=== PATIENT | female | born 1945 | race Caucasian/White ===

== ENCOUNTER → 2017-01-12 | Outpatient (CLI) | payer MEDICARE ==
--- NOTE | 2017-01-13 10:34 | MM ---
Reason for exam: screening (asymptomatic). Last mammogram was performed 1 year and 5 months ago. History: Patient is postmenopausal and is nulliparous. Family history of premenopausal breast cancer in sister at age 48. Took estrogen for 12 years beginning at age 48. Physical Findings: A clinical breast exam by your physician is recommended on an annual basis and results should be correlated with mammographic findings. MG 3D Screening Mammo W/Cad Bilateral CC and MLO view(s) were taken. Prior study comparison: August 21, 2015, bilateral MG screening mammo w CAD. June 06, 2008, bilateral digital screening mammogram. The breast tissue is heterogeneously dense. This may lower the sensitivity of mammography. Benign calcifications. There is no discrete abnormality. No significant changes when compared with prior studies. ASSESSMENT: Benign, BI-RAD 2 RECOMMENDATION: Routine screening mammogram of both breasts in 1 year.
== END ==
LOC: RADMAMWWP 09:30
PROVIDERS: ATTEND Family Medicine
DX: Z12.31 Encounter for screening mammogram for malignant neoplasm of breast (principal)
CPT/HCPCS: 77063; G0202

== ENCOUNTER 2017-04-01 18:47 | Observation (INO) | payer MEDICARE ==
[2017-04-01] MEDS ORDERED: SODIUM CHLORIDE 0.9% 500 ML IV STA (19:34)
[2017-04-01] MEDS ORDERED: ASPIRIN 81 MG CHEW PO STA (19:34)
[2017-04-01] MEDS ORDERED: NITROGLYCERIN SL TABS 0.4 MG TAB SUBLINGUAL STA ×2 (19:34→19:35)
--- NOTE | 2017-04-01 19:42 | ED ---
Chest Pain HPI - General Chief Complaint: Chest Pain Stated Complaint: CHEST PAIN AND BURNING Time Seen by Provider: 04/01/17 19:24 Source: patient, RN notes reviewed Mode of arrival: ambulatory Limitations: no limitations - History of Present Illness Initial Comments: 71-year-old female presents to the emergency Department chief complaint of chest pain. Patient complained of chest pain to the left side of the chest is burning in nature with no radiation associated with some shortness of breath. Patient states she's had this for the past 3 days. Patient denies any nausea vomiting or diarrhea with this. Patient states that she has no heart attack history but doesn't have blood pressure and high cholesterol. Patient states she was concerned due to her continued discomfort so she thought that she should be evaluated.Patient denies any recent fever, chills, back pain, abdominal pain, nausea vomiting, numbness or tingling, dysuria or hematuria, constipation or diarrhea, headaches or visual changes, or any other current symptoms. - Related Data Home Medications Medication Instructions Recorded Confirmed Aspirin EC [Ecotrin] 81 mg PO DAILY 09/07/14 04/01/17 Carbidopa/Levodopa [Parcopa 25-100 1 tab SL QID 09/07/14 04/01/17 mg Odt] Carvedilol [Carvedilol] 6.25 mg PO BID 09/07/14 04/01/17 Clopidogrel Bisulfate [Clopidogrel] 75 mg PO DAILY 09/07/14 04/01/17 Escitalopram Oxalate [Lexapro] 10 mg PO DAILY 09/07/14 04/01/17 Furosemide [Lasix] 40 mg PO DAILY 09/07/14 04/01/17 Levothyroxine Sodium [Levoxyl] 150 mcg PO DAILY 09/07/14 04/01/17 Lisinopril [Prinivil] 20 mg PO DAILY 09/07/14 04/01/17 Omeprazole [PriLOSEC] 20 mg PO BID 09/07/14 04/01/17 Potassium Chloride ER [K-Dur 10] 10 meq PO DAILY 09/07/14 04/01/17 Pramipexole [Mirapex] 0.5 mg PO HS 09/07/14 04/01/17 Pravastatin Sodium [Pravachol] 80 mg PO DAILY 09/07/14 04/01/17 Triamterene/Hydrochlorothiazid 1 tab PO DAILY 09/07/14 04/01/17 [Triamterene-Hctz 37.5-25 mg Tb] Verapamil HCl [Verapamil ER] 240 mg PO DAILY 09/07/14 04/01/17 Albuterol Nebulized [Ventolin 2.5 mg INHALATION RT-QID PRN 04/01/17 04/01/17 Nebulized] Fexofenadine HCl [Priti Allergy] 180 mg PO DAILY PRN 04/01/17 04/01/17 Allergies Allergy/AdvReac Type Severity Reaction Status Date / Time amiodarone [From Cordarone] Allergy Anaphylaxis Verified 04/01/17 20:03 cyclobenzaprine Allergy Rash/Hives Verified 04/01/17 20:03 [From Flexeril] Review of Systems ROS Statement: Those systems with pertinent positive or pertinent negative responses have been documented in the HPI. ROS Other: All systems not noted in ROS Statement are negative. EKG Findings - EKG Comments: EKG Findings:: Sinus rhythm with first-degree AV block, ventricular rate 79, pO2 30, chest duration 88, no ST elevation or depression noted. Past Medical History Past Medical History: CVA/TIA, Hyperlipidemia, Hypertension, Thyroid Disorder Additional Past Medical History / Comment(s): PARKINSONS History of Any Multi-Drug Resistant Organisms: None Reported Past Surgical History: Hysterectomy, Orthopedic Surgery Past Anesthesia/Blood Transfusion Reactions: No Reported Reaction Past Psychological History: Bipolar, Depression Smoking Status: Former smoker Past Alcohol Use History: None Reported Past Drug Use History: None Reported - Past Family History Father Family Medical History: No Reported History General Exam - General Exam Comments Initial Comments: General: The patient is awake and alert, in no distress, and does not appear acutely ill. Eye: Pupils are equal, round and reactive to light, extra-ocular movements are intact; there is normal conjunctiva bilaterally. No signs of icterus. Ears, nose, mouth and throat: There are moist mucous membranes. Neck: The neck is supple, there is no tenderness. Cardiovascular: There is a regular rate and rhythm. No murmur, rub or gallop is appreciated. Respiratory: Lungs are clear to auscultation, respirations are non-labored, breath sounds are equal. No wheezes, stridor, rales, or rhonchi. Gastrointestinal: Soft, non-distended, non-tender abdomen without masses or organomegaly noted. There is no rebound or guarding present. No CVA tenderness. Bowel sounds are unremarkable. Back: There is no tenderness to palpation in the midline. There is no obvious deformity. No rashes noted. Musculoskeletal: Normal ROM, no tenderness, There is no pedal edema. There is no calf tenderness or swelling. Sensation intact. Pulses equal bilaterally 2+. Neurological: CN II-XII intact, There are no obvious motor or sensory deficits. Coordination appears grossly intact. Speech is normal. Skin: Skin is warm and dry and no rashes or lesions are noted. Psychiatric: Cooperative, appropriate mood & affect, normal judgment. Limitations: no limitations Course Vital Signs 04/01/17 04/01/17 19:06 22:39 Temperature 98.8 F 97.7 F Pulse Rate 81 56 L Respiratory 20 18 Rate Blood Pressure 120/56 130/57 O2 Sat by Pulse 93 L 96 Oximetry Chest Pain MDM - MDM 71-year-old female presents to emergency department with a chief complaint of chest pain and pressure with burning. At this time patient's lab work and imaging is reviewed that does show an acute process for the patient's pain. There is concern however due to the pain and the patient's risk factor this could be cardiac in nature. This time we'll start the patient on appropriate protocol and continue upper throughout the night. We discussed this with the patient and she is in agreement with the plan. Questions have been answered. Patient will be admitted at this time. Disposition Clinical Impression: Unstable angina Disposition: ADMITTED IP TO THIS [facility] Condition: Stable Referrals: Cameron Nelson MD [Primary Care Provider] - 1-2 days Time of Disposition: 23:52 Decision Date: 04/01/17 Decision Time: 23:52
[2017-04-01 20:11] LABS: Basophils % (A) 0 %; CH 31.5; CHCM 32.9; Eosinophils # (A) 0.5 k/uL (0-0.7); Eosinophils % (A) 6 %; HCT 33.5 % (34.0-46.0); HDW 2.72; Luc # (Auto) 0.11; Luc % (Auto) 1; Lymphocytes # (A) 1.3 k/uL (1.0-4.8); Lymphocytes % (A) 16 %; MCH 31.7 pg (25.0-35.0); MCHC 32.9 g/dL (31.0-37.0); MCV 96.2 fL (80.0-100.0); Mean Platelet Volume 7.3; Monocytes # (A) 0.4 k/uL (0-1.0); Monocytes % (A) 5 %; Neutrophils # (A) 5.7 k/uL (1.3-7.7); Neutrophils % (A) 72 %; RBC 3.48 m/uL (3.80-5.40); RDW 13.9 % (11.5-15.5); WBC (Perox) 8.52
[2017-04-01 20:20] LABS: Calcium 9.6 mg/dL (8.4-10.2); Magnesium 1.8 mg/dL (1.6-2.3); Potassium 4.5 mmol/L (3.5-5.1); Total Bilirubin 0.6 mg/dL (0.2-1.3)
[2017-04-01 20:24] LABS: Partial Thromboplastin Time 24.2 sec (22.0-30.0); Prothrombin Time 10.5 sec (9.0-12.0)
[2017-04-01 20:29] LABS: Creatine Kinase 52 U/L (30-135)
--- NOTE | 2017-04-01 20:38 | XR ---
EXAMINATION TYPE: XR CHEST 2V DATE OF EXAM: 04/01/2017 8:07 PM COMPARISON: August 14, 2015 HISTORY: Pain TECHNIQUE: Frontal and lateral views of the chest are obtained. FINDINGS: On the lateral view, the previously seen high density over the lower thoracic spine is rede monstrated without interval change. There is no focal air space opacity, pleural effusion, or pneumothorax seen. The cardiac silhouette size is within normal limits. The osseous structures are intact. IMPRESSION: NO ACUTE PROCESS.
[2017-04-01 20:43] LABS: Creatine Kinase MB 0.5 ng/mL (0.0-2.4); Troponin I <0.012 ng/mL (0.000-0.034)
[2017-04-01] MEDS ORDERED: SODIUM CHLORIDE 0.9% 1,000 ML IV STA (20:49)
[2017-04-01] MEDS ORDERED: HYDROmorphone 1 MG/ML 1 ML SYRINGE IVP STA (23:26)
--- NOTE | 2017-04-01 23:33 | NM ---
ADDENDUM - Added by London Trejo MD on 04/02/2017 12:03 AM (-04:00) VQ scan radiopharmaceutical dose: Ventilation imagin.2 mCi 99M technetium-DTPA Perfusion imagin.4 mCi 99M technetium-MAA EXAM: NM VQ ventilation-perfusion Scan CLINICAL HISTORY: Reason: R/O PE TECHNIQUE: Nuclear medicine pulmonary ventilation-perfusion scan performed with ventilation and perfusion imaging in multiple projections. 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 COMPARISON: Chest radiographs 04/01/2017 FINDINGS: Pulmonary ventilation and perfusion imaging demonstrates radiotracer distribution throughout both lungs. There is moderate sized focal perfusion defect involving the left lower lobe which appears to reflect matched VQ defect with similar ventilatory abnormality in this region. Correlation with chest radiograph demonstrates tortuosity of the descending thoracic aorta which may be related to this finding. No other significant VQ mismatches identified. Findings are compatible with low probability for pulmonary embolism. IMPRESSION: Low probability for pulmonary embolism.
[2017-04-01] MEDS ORDERED: HEPARIN SODIUM,PORCINE/D5W PMX 25,000 UNIT in DEXTROSE/WATER 1 500ML.BAG IV SCH (23:45)
[2017-04-01] MEDS ORDERED: HEPARIN SODIUM,PORCINE 5,000 UNIT/ML 1 ML VIAL IV ONE (23:52)
[2017-04-01] MEDS ORDERED: NITROGLYCERIN SL TABS 0.4 MG TAB SUBLINGUAL PRN (23:52)
[2017-04-01] MEDS ORDERED: LORATADINE 10 MG TAB PO PRN (23:53)
[2017-04-01] MEDS ORDERED: ALBUTEROL NEBULIZED 2.5 MG/3 ML INHALATION PRN (23:53)
[2017-04-02] MEDS ORDERED: HYDROmorphone 1 MG/ML 1 ML SYRINGE IVP PRN (01:17)
[2017-04-02 02:00] VITALS: BMI 57.7
[2017-04-02 03:07] LABS: Creatine Kinase 48 U/L (30-135)
[2017-04-02 03:19] LABS: Creatine Kinase MB 0.5 ng/mL (0.0-2.4); Troponin I <0.012 ng/mL (0.000-0.034)
[2017-04-02] MEDS: NITROGLYCERIN OINT 1 INCH/GM PACKET TOPICAL SCH ×3 (04:17→14:06)
[2017-04-02] MEDS ORDERED: LEVOTHYROXINE 75 MCG TAB PO SCH (06:30)
[2017-04-02] MEDS ORDERED: PANTOPRAZOLE 40 MG TABLET PO SCH (07:30)
[2017-04-02] MEDS ORDERED: CARVEDILOL 6.25 MG TAB PO SCH (07:30)
[2017-04-02 08:05] LABS: Creatine Kinase 43 U/L (30-135)
[2017-04-02 08:05] LABS: Cholesterol 140 mg/dL (<200); HDL Cholesterol 45 mg/dL (40-60); Triglycerides 169 mg/dL (<150)
[2017-04-02 08:19] LABS: Creatine Kinase MB 0.4 ng/mL (0.0-2.4); Troponin I <0.012 ng/mL (0.000-0.034)
--- NOTE | 2017-04-02 08:59 | P.CRDCN ---
History of Present Illness Consult reason: chest pain, shortness of breath History of present illness: The Dr. GRAY Zapata in August 2014 Admitted with shortness of breath and constant chest discomfort with normal cardiac enzymes 3, 2 serial ECGs which are normal, the ECG this morning was done and she was experiencing 6 out of 10 chest discomfort Atypical chest discomfort Suggest Continue statins, continue baby aspirin 2-D echo and Doppler study to assess cardiac structure and function Follow-up with Dr. Zapata as an outpatient Past Medical History Past Medical History: CVA/TIA, Hyperlipidemia, Hypertension, Thyroid Disorder Additional Past Medical History / Comment(s): PARKINSONS, CVA X2 History of Any Multi-Drug Resistant Organisms: None Reported Past Surgical History: Hysterectomy, Orthopedic Surgery Additional Past Surgical History / Comment(s): Hammer toe surgery Past Anesthesia/Blood Transfusion Reactions: No Reported Reaction Past Psychological History: Anxiety, Bipolar, Depression Smoking Status: Former smoker Past Alcohol Use History: None Reported Past Drug Use History: None Reported - Past Family History Father Family Medical History: No Reported History Medications and Allergies Home Medications Medication Instructions Recorded Confirmed Type Aspirin EC [Ecotrin] 81 mg PO DAILY 09/07/14 04/02/17 History Carbidopa/Levodopa [Parcopa 25-100 1 tab SL QID 09/07/14 04/02/17 History mg Odt] Carvedilol [Carvedilol] 6.25 mg PO BID 09/07/14 04/02/17 History Clopidogrel Bisulfate [Clopidogrel] 75 mg PO DAILY 09/07/14 04/02/17 History Escitalopram Oxalate [Lexapro] 10 mg PO DAILY 09/07/14 04/02/17 History Furosemide [Lasix] 40 mg PO DAILY 09/07/14 04/02/17 History Levothyroxine Sodium [Levoxyl] 150 mcg PO DAILY 09/07/14 04/02/17 History Lisinopril [Prinivil] 20 mg PO DAILY 09/07/14 04/02/17 History Omeprazole [PriLOSEC] 20 mg PO BID 09/07/14 04/02/17 History Potassium Chloride ER [K-Dur 10] 10 meq PO DAILY 09/07/14 04/02/17 History Pramipexole [Mirapex] 0.5 mg PO HS 09/07/14 04/02/17 History Pravastatin Sodium [Pravachol] 80 mg PO DAILY 09/07/14 04/02/17 History Triamterene/Hydrochlorothiazid 1 tab PO DAILY 09/07/14 04/02/17 History [Triamterene-Hctz 37.5-25 mg Tb] Verapamil HCl [Verapamil ER] 240 mg PO DAILY 09/07/14 04/02/17 History Albuterol Nebulized [Ventolin 2.5 mg INHALATION RT-QID PRN 04/01/17 04/02/17 History Nebulized] Fexofenadine HCl [Priti Allergy] 180 mg PO DAILY PRN 04/01/17 04/02/17 History Allergies Allergy/AdvReac Type Severity Reaction Status Date / Time amiodarone [From Cordarone] Allergy Anaphylaxis Verified 04/02/17 01:52 cyclobenzaprine Allergy Rash/Hives Verified 04/02/17 01:52 [From Flexeril] Physical Exam Vitals: Vital Signs Temp Pulse Pulse Resp BP BP Pulse Ox 04/02/17 08:29 95 04/02/17 08:00 97.8 F 68 18 104/62 98 04/02/17 04:00 97.8 F 80 18 99/50 98 04/02/17 02:12 16 04/02/17 01:50 98.0 F 65 16 128/58 93 L 04/02/17 00:57 97.3 F L 60 18 110/51 96 04/01/17 22:39 97.7 F 56 L 18 130/57 96 04/01/17 19:06 98.8 F 81 20 120/56 93 L Intake and Output 04/01/17 04/02/17 04/02/17 22:59 06:59 14:59 Other: # Voids 1 1 Weight 172.365 kg 172.3 kg Results 04/01/17 19:45 04/01/17 19:45 Cardiac Enzymes 04/01/17 04/01/17 04/02/17 Range/Units 19:45 19:45 02:14 AST 14 (14-36) U/L CK-MB (CK-2) 0.5 0.5 (0.0-2.4) ng/mL Troponin I <0.012 <0.012 (0.000-0.034) ng/mL 04/02/17 Range/Units 07:26 AST (14-36) U/L CK-MB (CK-2) 0.4 (0.0-2.4) ng/mL Troponin I <0.012 (0.000-0.034) ng/mL Coagulation 04/01/17 04/02/17 Range/Units 19:45 07:29 PT 10.5 (9.0-12.0) sec APTT 24.2 32.5 H (22.0-30.0) sec Lipids 04/02/17 Range/Units 07:29 Triglycerides 169 H (<150) mg/dL Cholesterol 140 (<200) mg/dL HDL Cholesterol 45 (40-60) mg/dL CBC 04/01/17 Range/Units 19:45 WBC 8.0 (3.8-10.6) k/uL RBC 3.48 L (3.80-5.40) m/uL Hgb 11.0 L (11.4-16.0) gm/dL Hct 33.5 L (34.0-46.0) % Plt Count 188 (150-450) k/uL Comprehensive Metabolic Panel 04/01/17 Range/Units 19:45 Sodium 143 (137-145) mmol/L Potassium 4.5 (3.5-5.1) mmol/L Chloride 103 (98-107) mmol/L Carbon Dioxide 28 (22-30) mmol/L BUN 65 H (7-17) mg/dL Creatinine 2.20 H (0.52-1.04) mg/dL Glucose 138 H (74-99) mg/dL Calcium 9.6 (8.4-10.2) mg/dL AST 14 (14-36) U/L ALT 16 (9-52) U/L Alkaline Phosphatase 131 H (38-126) U/L Total Protein 7.0 (6.3-8.2) g/dL Albumin 4.0 (3.5-5.0) g/dL Current Medications Generic Name Dose Route Start Last Admin Trade Name Freq PRN Reason Stop Dose Admin Albuterol Sulfate 2.5 mg 04/01/17 23:53 Ventolin Nebulized INHALATION RT-QID PRN Shortness Of Breath Aspirin 325 mg 04/02/17 09:00 Aspirin PO DAILY [facility] Carbidopa/Levodopa 1 each 04/02/17 09:00 Sinemet 25-100 PO QID [facility] Carvedilol 6.25 mg 04/02/17 07:30 Coreg PO AC-BID [facility] Clopidogrel Bisulfate 75 mg 04/02/17 09:00 Plavix PO DAILY [facility] Escitalopram Oxalate 10 mg 04/02/17 09:00 Lexapro PO DAILY [facility] Furosemide 40 mg 04/02/17 09:00 Lasix PO DAILY [facility] Hydromorphone HCl 0.5 mg 04/02/17 01:17 Dilaudid IVP Q6HR PRN Pain Sodium Chloride 1,000 mls @ 80 mls/hr 04/01/17 20:49 04/02/17 00:50 Saline 0.9% IV 04/02/17 09:18 80 mls/hr .[id number] STA Administration Heparin Sodium/Dextrose 25,000 500 mls @ 20.33 mls/hr 04/01/17 23:45 00:51 unit/ IV Solution IV 5.8 units/kg/hr .Q24H BALDOMERO 20 mls/hr Protocol Administration 5.9 UNITS/KG/HR Levothyroxine Sodium 150 mcg 04/02/17 06:30 04/02/17 06:19 Synthroid PO 150 mcg 0630 BALDOMERO Administration Lisinopril 20 mg 04/02/17 09:00 Zestril PO DAILY [facility] Loratadine 10 mg 04/01/17 23:53 Claritin PO DAILY PRN Allergy Symptoms Nitroglycerin 1 inch 04/02/17 02:00 04/02/17 06:13 Nitro-Bid Oint TOPICAL Not Given Q6HR [facility] Nitroglycerin 0.4 mg 04/01/17 23:52 Nitrostat SUBLINGUAL Q5M PRN Chest Pain Pantoprazole Sodium 40 mg 04/02/17 07:30 Protonix PO AC-BID [facility] Potassium Chloride 10 meq 04/02/17 09:00 K-Dur 10 PO DAILY [facility] Pramipexole Dihydrochloride 0.5 mg 04/02/17 21:00 Mirapex PO HS [facility] Pravastatin Sodium 80 mg 04/02/17 09:00 Pravachol PO DAILY [facility] Triamterene/HCTZ 1 each 04/02/17 09:00 Maxzide-25 PO DAILY [facility] Verapamil HCl 240 mg 04/02/17 09:00 Isoptin Sr PO DAILY [facility] Intake and Output 0504/02/17 04/02/17 22:59 06:59 14:59 Other: # Voids 1 1 Weight 172.365 kg 172.3 kg 04/01/17 19:45 04/01/17 19:45
[2017-04-02] MEDS ORDERED: PRAVASTATIN SODIUM 80 MG TAB PO SCH (09:00)
[2017-04-02] MEDS ORDERED: FUROSEMIDE 40 MG TAB PO SCH (09:00)
[2017-04-02] MEDS ORDERED: ESCITALOPRAM 10 MG TAB PO SCH (09:00)
[2017-04-02] MEDS ORDERED: ASPIRIN 325 MG TAB PO SCH (09:00)
[2017-04-02] MEDS ORDERED: TRIAMTERENE-HCTZ 37.5-25MG 1 EACH TAB PO SCH (09:00)
[2017-04-02] MEDS ORDERED: CLOPIDOGREL 75 MG TAB PO SCH (09:00)
[2017-04-02] MEDS ORDERED: POTASSIUM CHLORIDE ER 10 MEQ TAB.ER.PRT PO SCH (09:00)
[2017-04-02] MEDS ORDERED: LISINOPRIL 20 MG TAB PO SCH (09:00)
[2017-04-02] MEDS ORDERED: VERAPAMIL SR 240 MG TABLET.ER PO SCH (09:00)
[2017-04-02] MEDS: CARBIDOPA-LEVODOPA 25-100 MG 1 EACH TAB PO SCH ×2 (09:16→14:04)
--- NOTE | 2017-04-02 09:29 | CONS ---
DATE OF CONSULTATION: Leena Carmona is a 71-year-old female who presented with chest discomfort that was quite severe. This was of a burning nature, nonradiating. She was also mildly short of breath. She has been having pain for the last 3 days. She is experiencing pain as I speak and I repeated her 12-lead ECG and it did not show any ST segment abnormalities. Her ECG yesterday also did not show any definite ST segment abnormalities. She is lying comfortably in bed. She is short of breath. She appears to be wheezy. REVIEW OF SYSTEMS: No fever, chills or rigors. No cough or expectoration. No nausea, vomiting or diarrhea. No hematuria or dysuria. Her medications include aspirin, carbidopa, carvedilol, clopidogrel, Lasix, levothyroxine, lisinopril, potassium, Pravachol, triamterene hydrochlorothiazide, verapamil. Allergies to AMIODARONE and FLEXERIL. ECG shows a mildly prolonged ND interval, narrow QRS, no definite ST segment abnormalities. Follow-up ECG does not show any ST segment changes. On examination, her blood pressure is 104/62 mmHg, heart rate is in the 76 and 70s. Head and neck examination is normal. She is lying comfortably. She is lying flat in bed. She appears wheezy and she is in some pain. Heart sounds are S1 and S2 are soft. Abdomen is soft, nontender. Breath sounds are reduced bilaterally with some rhonchus breath sounds. Extremities are warm. No edema. IMPRESSION: 1. Morbid obesity. 2. Atypical chest discomfort going on for 3 days with normal cardiac enzymes and 2 serial ECGs are completely normal. 3. Chronic kidney disease with GFR of less than 30. 4. History of hypertension. 5. History of dyslipidemia. 6. History of Parkinson's disease. 7. History of bipolar disorder. PLAN: From a cardiac standpoint, a 2-D echo and Doppler study is being ordered because she has been complaining of shortness of breath also, but she has not had any acute myocardial infarction. I will treat her with baby aspirin and statins. She is on 80 mg of Pravachol a day and I will continue this and I will treat her with a baby aspirin also.
--- NOTE | 2017-04-02 11:33 | ECHOF ---
Referral Reason: MEASUREMENTS -------- HEIGHT: 172.7 cm WEIGHT: 171.9 kg BP: 104/62 RVIDd: 2.8 cm (< 3.3) IVSd: 1.5 cm (0.6 - 1.1) LVIDd: 4.2 cm (3.9 - 5.3) LVPWd: 1.4 cm (0.6 - 1.1) IVSs: 2.2 cm LVIDs: 3.6 cm LVPWs: 1.8 cm Ao Diam: 3.5 cm (2.0 - 3.7) AV Cusp: 2.0 cm (1.5 - 2.6) LA Diam: 3.9 cm (2.7 - 3.8) MV E Alex: 0.76 m/s MV DecT: 278 ms MV A Alex: 0.83 m/s MV E/A Ratio: 0.91 RAP: 5.00 mmHg RVSP: 27.70 mmHg FINDINGS -------- Sinus rhythm. This was a technically difficult study with suboptimal views. There is moderate concentric left ventricular hypertrophy. Overall left ventricular systolic function is normal with, an EF between 55 - 60 %. The right ventricle is normal in size and function. The left atrium is normal in size. The right atrium was not well visualized. 1.5mg of Definity was utilized for enhancement of images There is mild aortic valve sclerosis. There is no evidence of aortic regurgitation. There is no evidence of aortic stenosis. Mild mitral annular calcification present. There is trace to mild mitral regurgitation. Trace tricuspid regurgitation present. There is no evidence of pulmonary hypertension. The right ventricular systolic pressure, as measured by Doppler, is 27.70mmHg. The pulmonic valve was not well visualized. The aortic root size is normal. There is no pericardial effusion. CONCLUSIONS -------- 1. Sinus rhythm. 2. Trace tricuspid regurgitation present. 3. There is no evidence of pulmonary hypertension. 4. The right ventricular systolic pressure, as measured by Doppler, is 27.70mmHg. 5. The pulmonic valve was not well visualized. 6. The aortic root size is normal. 7. There is no pericardial effusion. 8. This was a technically difficult study with suboptimal views. 9. There is moderate concentric left ventricular hypertrophy. 10. Overall left ventricular systolic function is normal with, an EF between 55 - 60 %. 11. The right atrium was not well visualized. 12. 1.5mg of Definity was utilized for enhancement of images 13. There is mild aortic valve sclerosis. 14. Mild mitral annular calcification present. 15. There is trace to mild mitral regurgitation. VOICE STUDIES DIRECTOR: Rommel Witt RDCS
[2017-04-02] MEDS ORDERED: IPRATROPIUM-ALBUTEROL 3 ML NEB INHALATION PRN (13:34)
--- NOTE | 2017-04-02 14:27 | P.HPIM ---
History of Present Illness H&P Date: 04/02/17 Chief Complaint: Chest pain Patient is a 71-year-old female, patient of Dr. Santiago in the outpatient setting. 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 Patient presented to the emergency department with complaints of left-sided chest pain for 3 days described as burning and left arm pain associated with some shortness of breath. EKG with no evidence of definite ST segment abnormalities. Echocardiogram with moderate concentric left ventricular hypertrophy; left ventricular systolic function normal with an EF between 55-60%; no evidence of pulmonary hypertension. VQ scan with low probability for pulmonary embolism. Labs on admission WBC 8, hemoglobin 11, d- dimer 0.93, BUN 65, creatinine 2.2, alkaline phosphatase 131, troponin less than 0.0123, triglycerides 169, and NT-pro-B WELDER METAL FAB 558. Patient has been evaluated by cardiology who is recommending continuation of statins and initiation of a baby aspirin. No further workup by cardiology. Upon examination, patient is complaining of left-sided chest pain radiating to her left arm. Patient is complaining of shortness of breath associated with nonproductive cough. No history of fevers, chills, nausea, vomiting, abdominal pain. Patient thinks her legs are more swollen than usual. Denies dysuria, hematuria, or urgency. Denies diarrhea or constipation. Past Medical History Past Medical History: CVA/TIA, Hyperlipidemia, Hypertension, Thyroid Disorder Additional Past Medical History / Comment(s): PARKINSONS, CVA X2 History of Any Multi-Drug Resistant Organisms: None Reported Past Surgical History: Hysterectomy, Orthopedic Surgery Additional Past Surgical History / Comment(s): Hammer toe surgery Past Anesthesia/Blood Transfusion Reactions: No Reported Reaction Past Psychological History: Anxiety, Bipolar, Depression Smoking Status: Former smoker Past Alcohol Use History: None Reported Past Drug Use History: None Reported - Past Family History Father Family Medical History: No Reported History Medications and Allergies Home Medications Medication Instructions Recorded Confirmed Type Aspirin EC [Ecotrin] 81 mg PO DAILY 09/07/14 04/02/17 History Carbidopa/Levodopa [Parcopa 25-100 1 tab SL QID 09/07/14 04/02/17 History mg Odt] Carvedilol [Carvedilol] 6.25 mg PO BID 09/07/14 04/02/17 History Clopidogrel Bisulfate [Clopidogrel] 75 mg PO DAILY 09/07/14 04/02/17 History Escitalopram Oxalate [Lexapro] 10 mg PO DAILY 09/07/14 04/02/17 History Furosemide [Lasix] 40 mg PO DAILY 09/07/14 04/02/17 History Levothyroxine Sodium [Levoxyl] 150 mcg PO DAILY 09/07/14 04/02/17 History Lisinopril [Prinivil] 20 mg PO DAILY 09/07/14 04/02/17 History Omeprazole [PriLOSEC] 20 mg PO BID 09/07/14 04/02/17 History Potassium Chloride ER [K-Dur 10] 10 meq PO DAILY 09/07/14 04/02/17 History Pramipexole [Mirapex] 0.5 mg PO HS 09/07/14 04/02/17 History Pravastatin Sodium [Pravachol] 80 mg PO DAILY 09/07/14 04/02/17 History Triamterene/Hydrochlorothiazid 1 tab PO DAILY 09/07/14 04/02/17 History [Triamterene-Hctz 37.5-25 mg Tb] Verapamil HCl [Verapamil ER] 240 mg PO DAILY 09/07/14 04/02/17 History Albuterol Nebulized [Ventolin 2.5 mg INHALATION RT-QID PRN 04/01/17 04/02/17 History Nebulized] Fexofenadine HCl [Priti Allergy] 180 mg PO DAILY PRN 04/01/17 04/02/17 History Allergies Allergy/AdvReac Type Severity Reaction Status Date / Time amiodarone [From Cordarone] Allergy Anaphylaxis Verified 04/02/17 01:52 cyclobenzaprine Allergy Rash/Hives Verified 04/02/17 01:52 [From Flexeril] Physical Exam Vitals: Vital Signs Temp Pulse Pulse Resp BP BP Pulse Ox 04/02/17 12:00 97.6 F 70 18 129/63 96 04/02/17 08:29 95 04/02/17 08:00 97.8 F 68 18 104/62 98 04/02/17 04:00 97.8 F 80 18 99/50 98 04/02/17 02:12 16 04/02/17 01:50 98.0 F 65 16 128/58 93 L 04/02/17 00:57 97.3 F L 60 18 110/51 96 04/01/17 22:39 97.7 F 56 L 18 130/57 96 04/01/17 19:06 98.8 F 81 20 120/56 93 L Intake and Output 04/01/17 04/02/17 04/02/17 22:59 06:59 14:59 Other: Voiding Method Bedside Commode # Voids 1 1 Weight 172.365 kg 172.3 kg GENERAL: Pt awake and alert, well-nourished, and in no acute distress. HEAD: Atraumatic, normocephalic. EYES: Pupils equal, round, and reactive to light, extraocular movements intact, sclera anicteric, conjunctiva are normal. ENT: Moist mucous membranes. NECK: Supple without lymphadenopathy or JVD. LUNGS: Breath sounds with diminished with few rhonchi and faint expiratory wheezing. HEART: Heart S1, S2, no S3 or S4. Regular rate and rhythm. No murmurs, rubs or gallops. ABDOMEN: Soft, morbidly obese, nontender, nondistended, normoactive bowel sounds. No guarding, no rebound. EXTREMITIES: 2+ peripheral pulses. 1+ edema to bilateral lower extremities. No calf tenderness. NEUROLOGICAL: Pt oriented x 3. Expressive aphasia. Decreased strength to left upper and lower extremity. PSYCH: Normal mood, normal affect. SKIN: Warm, dry, intact. Normal turgor. No rashes or lesions. Results CBC & Chem 7: 04/01/17 19:45 04/01/17 19:45 Labs: Abnormal Lab Results - Last 24 Hours (Table) 04/01/17 04/01/17 04/01/17 Range/Units 19:45 19:45 19:45 RBC 3.48 L (3.80-5.40) m/uL Hgb 11.0 L (11.4-16.0) gm/dL Hct 33.5 L (34.0-46.0) % APTT (22.0-30.0) sec D-Dimer 0.93 H (<0.60) mg/L FEU BUN 65 H (7-17) mg/dL Creatinine 2.20 H (0.52-1.04) mg/dL Glucose 138 H (74-99) mg/dL Alkaline Phosphatase 131 H (38-126) U/L Triglycerides (<150) mg/dL 04/02/17 04/02/17 Range/Units 07:29 07:29 RBC (3.80-5.40) m/uL Hgb (11.4-16.0) gm/dL Hct (34.0-46.0) % APTT 32.5 H (22.0-30.0) sec D-Dimer (<0.60) mg/L FEU BUN (7-17) mg/dL Creatinine (0.52-1.04) mg/dL Glucose (74-99) mg/dL Alkaline Phosphatase (38-126) U/L Triglycerides 169 H (<150) mg/dL Abdominal x-ray: report reviewed (No acute process.) CT scan - chest: report reviewed Thrombosis Risk Factor Assmnt - DVT/VTE Prophylaxis DVT/VTE Prophylaxis: Pharmacologic Prophylaxis ordered - Choose All That Apply Any of the Below Risk Factors Present?: Yes Each Factor Represents 1 point: Obesity (BMI >25), Swollen legs (current) Each Risk Factor Represents 2 Points: Age 61-74 years Thrombosis Risk Factor Assessment Total Risk Factor Score: 4 Thrombosis Risk Factor Assessment Level: Moderate Risk Assessment and Plan Plan: Impression and plan: 1. Chest pain, atypical for acute coronary syndrome. Troponins negative 3. EKG with no definite ST abnormalities. Cardiology has seen and evaluated patient with recommendations to continue current medications, add low-dose aspirin and follow-up with Dr. Julián Zapata in the outpatient setting. 2. Acute renal failure, present on admission. BUN 65, creatinine 2.2 on admission. We'll discontinue diuretics and ALISON inhibitor. Will obtain urinalysis. Consult nephrology, recommendations pending. 3. Shortness of breath, present on admission, with wheezing and rhonchi. Chest x-ray with no evidence of acute process. Will add nebulized updraft treatments 4 times a day and when necessary. Continue supplemental oxygen to keep oxygen saturation greater than 92%. Consult pulmonology, recommendations pending. 5. Anemia, present on admission, suspect secondary to acute on chronic renal failure. 6. Elevated random blood sugar, present on admission. 7. Hyperlipidemia. Continue pravastatin 80 mg by mouth daily. 8. Hypertension with episodes of hypotension recorded in the hospital. Continue Coreg 6.25 mg by mouth before meals twice a day. Will hold lisinopril for now. 9. Hypothyroidism. Continue Synthroid 150 g by mouth daily. 10. Parkinson's disease. Continue Sinemet 25/100 4 times a day. 11. Cerebrovascular accident 2 with residual expressive aphasia and left- sided weakness. Continue Plavix 75 mg daily. Maintain fall precautions. Consult physical therapy. 12. History of anxiety, depression, and bipolar, stable. Continue Lexapro 10 mg by mouth daily. 13. History of nicotine dependence. 14. GERD. Continue Protonix 40 mg by mouth before meals twice a day. 15. History of remote cardiac arrhythmia. Continue verapamil 240 mg daily. 16. Morbid obesity. BMI 57.8. Continue to monitor patient. Continue current medications. Continue GI and DVT prophylaxis. Consult pulmonology and nephrology. Consult physical therapy. Repeat CBC and CMP in a.m. The above impression and plan have been discussed and directed by Dr. Santiago. Santhosh PEARSON acting as scribe for Dr. Santiago.
[2017-04-02] MEDS ORDERED: IPRATROPIUM-ALBUTEROL 3 ML NEB INHALATION SCH (16:00)
--- NOTE | 2017-04-02 16:29 | P.CNPUL ---
History of Present Illness Consult date: 04/02/17 Reason for consult: dyspnea History of present illness: 71-year-old morbidly obese female patient with known history of CVA/left-sided weakness and expressive aphasia, hypertension, hyperlipidemia, hypothyroidism, Parkinson's disease and chronic renal failure with stage III kidney disease who came into the hospital because of left-sided chest pain a few days duration. The pain was burning sensation and the patient was experiencing also some shortness of breath. Echocardiogram was done during this current hospital stay and the patient had a concentric left ventricular hypertrophy with a normal ejection fraction of 55-60% and there was no evidence of any pulmonary hypertension. EKG showed no ST segment elevation or depression or ischemia. VQ scan was of a low probability. D-dimer was 0.9. White cell count is not elevated. Function is at 2.2 creatinine and the patient had 2 sets of troponins were negative. The proBNP level was nonelevated. For all this reasons, a pulmonary consultation was requested. Noted the patient is a ex- smoker. Chest x-ray was essentially within normal limits. Note that the patient is hard to communicate with knowing that she has expressive aphasia. Yet based on information provided by her, the patient is being having this on and off pain for the past 4-5 days. This is around 5-6 out of 10 in severity. Episodic. She has chronic left shoulder pain however this does not seem to be related to the ongoing chest pain. No pleurisy and the pain is obviously not pleuritic without any changes quality with deep breathing or movement. No history of any DVT. No history of PE. No aspiration. No heartburn. No trauma to the chest. Overlying skin over the chest is dry clean and intact. Review of Systems 12 point review of system was done. The patient has expressive aphasia. She has decreased strength in the left upper and left lower extremity related to the previous stroke. Rest of the positive findings are almost above in history of present illness. The patient's tells that she is able to walk with the help of a walker for short distances only and typically she can move around 450-75 feet at a time. No fall. No trauma. All systems: negative Constitutional: Denies chills, Denies fever Eyes: denies blurred vision, denies pain Ears, nose, mouth and throat: Denies headache, Denies sore throat Cardiovascular: Reports chest pain, Reports shortness of breath Respiratory: Denies cough Gastrointestinal: Denies abdominal pain, Denies diarrhea, Denies nausea, Denies vomiting Genitourinary: Denies dysuria, Denies hematuria Musculoskeletal: Denies myalgias Integumentary: Denies pruritus, Denies rash Neurological: Denies numbness, Denies weakness Psychiatric: Denies anxiety, Denies depression Endocrine: Denies fatigue, Denies weight change 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, hypothyroidism, hypertension, hyperlipidemia, Parkinson's disease, degenerative arthritis, anxiety, depression History of Any Multi-Drug Resistant Organisms: None Reported Past Surgical History: Hysterectomy, Orthopedic Surgery Additional Past Surgical History / Comment(s): Hammer toe surgery Past Anesthesia/Blood Transfusion Reactions: No Reported Reaction Past Psychological History: Anxiety, Bipolar, Depression Smoking Status: Former smoker Past Alcohol Use History: None Reported Past Drug Use History: None Reported - Past Family History Father Family Medical History: No Reported History Medications and Allergies Home Medications Medication Instructions Recorded Confirmed Type Aspirin EC [Ecotrin] 81 mg PO DAILY 09/07/14 04/02/17 History Carbidopa/Levodopa [Parcopa 25-100 1 tab SL QID 09/07/14 04/02/17 History mg Odt] Carvedilol [Carvedilol] 6.25 mg PO BID 09/07/14 04/02/17 History Clopidogrel Bisulfate [Clopidogrel] 75 mg PO DAILY 09/07/14 04/02/17 History Escitalopram Oxalate [Lexapro] 10 mg PO DAILY 09/07/14 04/02/17 History Furosemide [Lasix] 40 mg PO DAILY 09/07/14 04/02/17 History Levothyroxine Sodium [Levoxyl] 150 mcg PO DAILY 09/07/14 04/02/17 History Lisinopril [Prinivil] 20 mg PO DAILY 09/07/14 04/02/17 History Omeprazole [PriLOSEC] 20 mg PO BID 09/07/14 04/02/17 History Potassium Chloride ER [K-Dur 10] 10 meq PO DAILY 09/07/14 04/02/17 History Pramipexole [Mirapex] 0.5 mg PO HS 09/07/14 04/02/17 History Pravastatin Sodium [Pravachol] 80 mg PO DAILY 09/07/14 04/02/17 History Triamterene/Hydrochlorothiazid 1 tab PO DAILY 09/07/14 04/02/17 History [Triamterene-Hctz 37.5-25 mg Tb] Verapamil HCl [Verapamil ER] 240 mg PO DAILY 09/07/14 04/02/17 History Albuterol Nebulized [Ventolin 2.5 mg INHALATION RT-QID PRN 04/01/17 04/02/17 History Nebulized] Fexofenadine HCl [Priti Allergy] 180 mg PO DAILY PRN 04/01/17 04/02/17 History Allergies Allergy/AdvReac Type Severity Reaction Status Date / Time amiodarone [From Cordarone] Allergy Anaphylaxis Verified 04/02/17 01:52 cyclobenzaprine Allergy Rash/Hives Verified 04/02/17 01:52 [From Flexeril] Physical Exam Vitals: Vital Signs Temp Pulse Pulse Resp BP BP Pulse Ox 04/02/17 15:37 70 04/02/17 15:25 70 04/02/17 12:00 97.6 F 70 18 129/63 96 04/02/17 08:29 95 04/02/17 08:00 97.8 F 68 18 104/62 98 04/02/17 04:00 97.8 F 80 18 99/50 98 04/02/17 02:12 16 04/02/17 01:50 98.0 F 65 16 128/58 93 L 04/02/17 00:57 97.3 F L 60 18 110/51 96 04/01/17 22:39 97.7 F 56 L 18 130/57 96 04/01/17 19:06 98.8 F 81 20 120/56 93 L Intake and Output 04/02/17 04/02/17 04/02/17 06:59 14:59 22:59 Other: Voiding Method Bedside Commode # Voids 1 1 Weight 172.3 kg Patient is morbidly obese. The patient has a dysarthric speech and some degree of aphasia related to previous CVA. She is resting comfortably in bed. No use of accessory muscle breathing. The patient appeared well nourished and normally developed. Vital signs as documented. Head exam is unremarkable. No scleral icterus or corneal arcus noted. Neck is without jugular venous distension, thyromegaly, or carotid bruits. The patient has significant crowding of the posterior oropharynx with a Mallampati class III. Carotid upstrokes are brisk bilaterally. Lungs are clear and the breath sounds are quite diminished with some few scattered expiratory wheezes upon forceful expiratory maneuvers.. Cardiac exam reveals the PMI to be normally sized and situated. Rhythm is regular. First and second heart sounds normal. No murmurs, rubs or gallops. Abdominal exam reveals normal bowel sounds, no masses, no organomegaly and no aortic enlargement. In fact organs cannot be accurately palpated as the patient is morbidly obese. Extremities are nonedematous and both femoral and pedal pulses are normal. Motor functions diminished in the left upper and left lower extremity due to previous CVA. No cyanosis. No clubbing. Results - Laboratory Findings CBC and BMP: 04/01/17 19:45 04/01/17 19:45 PT/INR, D-dimer PT 10.5 sec (9.0-12.0) 04/01/17 19:45 INR 1.0 (<1.1) 04/01/17 19:45 D-Dimer 0.93 mg/L FEU (<0.60) H 04/01/17 19:45 Abnormal lab findings: Abnormal Labs 04/01/17 04/01/17 04/01/17 19:45 19:45 19:45 RBC 3.48 L Hgb 11.0 L Hct 33.5 L APTT D-Dimer 0.93 H BUN 65 H Creatinine 2.20 H Glucose 138 H Alkaline Phosphatase 131 H Triglycerides 04/02/17 04/02/17 07:29 07:29 RBC Hgb Hct APTT 32.5 H D-Dimer BUN Creatinine Glucose Alkaline Phosphatase Triglycerides 169 H - Diagnostic Findings Chest x-ray: image reviewed Assessment and Plan Plan: Assessment 1 atypical left-sided chest pain this been going on for the past 4-5 days. From the pulmonary standpoint, there is no indication of any acute pulmonary embolism based on the low d-dimer and a low probability VQ scan. No evidence of any pneumonia and the chest x-rays very much comparable to the previous chest x-ray done in 2013. No hypoxemia at this point 2 obesity 3 CVA with expressive aphasia and left-sided weakness 4 Parkinson's disease 5 chronic renal failure with a creatinine of 2.2 6 hypertension 8 hypothyroidism 9 hyperlipidemia 10 osteoarthritis 11 anxiety/depression 12 poor exercise Tolerance secondary to above-mentioned comorbidities. Plan No other recommendations from a pulmonary standpoint. Patient is oxygenating well. The pain she is experiencing is not related to any pulmonary source. May be reasonable to consider a cardiac stress test at a later stage. I agree that this is rather an atypical pain for cardiac disease.
[2017-04-02 17:26] VITALS: BP 97/38; PULSE 64; RESP 16; TEMP 97.3
--- NOTE | 2017-04-02 17:52 | P.DS ---
Providers Date of admission: 04/02/17 00:46 Expected date of discharge: 04/02/17 Attending physician: Gume Santiago Consults: 04/01/17 23:52 Consult Physician Urgent Consulting Provider: Ata Zapata Consult Reason/Comments: UA Do you want consulting provider notified?: Yes, Notify in am 04/02/17 10:56 Consult Physician Urgent Consulting Provider: Berto Castrejon Consult Reason/Comments: ACUTE ON CHRONIC RENAL FAILURE Do you want consulting provider notified?: Yes 04/02/17 13:36 Consult Physician Urgent Consulting Provider: Court Druan Consult Reason/Comments: SHORTNESS OF BREATH Do you want consulting provider notified?: Yes Primary care physician: Cameron Nelson - Discharge Diagnosis(es) (1) Unstable angina discharge home stable Current Visit: Yes Status: Acute Patient Condition at Discharge: Stable Plan - Discharge Summary Discharge Medication List Aspirin EC [Ecotrin] 81 mg PO DAILY 09/07/14 [History] Carbidopa/Levodopa [Parcopa 25-100 mg Odt] 1 tab SL QID 09/07/14 [History] Carvedilol [Carvedilol] 6.25 mg PO BID 09/07/14 [History] Clopidogrel Bisulfate [Clopidogrel] 75 mg PO DAILY 09/07/14 [History] Escitalopram Oxalate [Lexapro] 10 mg PO DAILY 09/07/14 [History] Furosemide [Lasix] 40 mg PO DAILY 09/07/14 [History] Levothyroxine Sodium [Levoxyl] 150 mcg PO DAILY 09/07/14 [History] Lisinopril [Prinivil] 20 mg PO DAILY 09/07/14 [History] Omeprazole [PriLOSEC] 20 mg PO BID 09/07/14 [History] Potassium Chloride ER [K-Dur 10] 10 meq PO DAILY 09/07/14 [History] Pramipexole [Mirapex] 0.5 mg PO HS 09/07/14 [History] Pravastatin Sodium [Pravachol] 80 mg PO DAILY 09/07/14 [History] Triamterene/Hydrochlorothiazid [Triamterene-Hctz 37.5-25 mg Tb] 1 tab PO DAILY 09/07/14 [History] Verapamil HCl [Verapamil ER] 240 mg PO DAILY 10/24/14 [History] Albuterol Nebulized [Ventolin Nebulized] 2.5 mg INHALATION RT-QID PRN 04/01/17 [ History] Fexofenadine HCl [Priti Allergy] 180 mg PO DAILY PRN 04/01/17 [History] Follow up Appointment(s)/Referral(s): Cameron Nelson MD [Primary Care Provider] - 1-2 days
[2017-04-02] MEDS ORDERED: HEPARIN SODIUM,PORCINE 5,000 UNIT/ML 1 ML VIAL SQ SCH (21:00)
[2017-04-02] MEDS ORDERED: PRAMIPEXOLE 0.5 MG TAB PO SCH (21:00)
== END 2017-04-02 18:40 | disposition home or self-care (01) ==
LOC: EC 18:47 → 3OBS 04-02 00:46
PROVIDERS: ADMIT Family Medicine; ATTEND Family Medicine
DX: I20.0 Unstable angina (principal); R06.02 Shortness of breath; R06.2 Wheezing; G20 Parkinson's disease; E78.5 Hyperlipidemia, unspecified; F41.9 Anxiety disorder, unspecified; F31.9 Bipolar disorder, unspecified; E66.01 Morbid (severe) obesity due to excess calories; Z68.43 Body mass index [BMI] 50.0-59.9, adult; I12.9 Hypertensive chronic kidney disease with stage 1 through stage 4 chronic kidney disease, or unspecified chronic kidney disease; N18.3 Chronic kidney disease, stage 3 (moderate); N17.9 Acute kidney failure, unspecified; I69.320 Aphasia following cerebral infarction; I69.354 Hemiplegia and hemiparesis following cerebral infarction affecting left non-dominant side; D64.9 Anemia, unspecified; E03.9 Hypothyroidism, unspecified; I49.9 Cardiac arrhythmia, unspecified; I95.9 Hypotension, unspecified; R73.9 Hyperglycemia, unspecified; K21.9 Gastro-esophageal reflux disease without esophagitis; G89.29 Other chronic pain; M25.512 Pain in left shoulder; M19.90 Unspecified osteoarthritis, unspecified site; Z79.82 Long term (current) use of aspirin; Z79.899 Other long term (current) drug therapy; Z79.02 Long term (current) use of antithrombotics/antiplatelets; Z88.8 Allergy status to other drugs, medicaments and biological substances; Z87.891 Personal history of nicotine dependence
CPT/HCPCS: 96361 ×2; 96366; 96376; 96365; 96375; 99285; 36415; 94640; 94760; 93005; 97162; 85379; 83880; 80061; 80053; 82150; 82550 ×2; 82553 ×2; 83690; 83735; 84484 ×2; 85025; 85610; 85730 ×2; 71020; 78582; G0378; C8929; A9540; A9567; J1644 ×2; Q9957; J1170; 93306

== ENCOUNTER → 2017-06-04 | Outpatient (CLI) | payer MEDICARE ==
[2017-06-04 10:19] LABS: CH 31.5; CHCM 32.4; HCT 33.8 % (34.0-46.0); HGB 10.9 gm/dL (11.4-16.0); MCH 31.6 pg (25.0-35.0); MCHC 32.4 g/dL (31.0-37.0); MCV 97.7 fL (80.0-100.0); RBC 3.46 m/uL (3.80-5.40); RDW 14.1 % (11.5-15.5); WBC 6.7 k/uL (3.8-10.6)
[2017-06-04 10:29] LABS: Appearance,Urine Turbid (Clear); Bacteria,Urine Many /hpf; Bilirubin,Urine Negative (Negative); Glucose,Urine (UA) Negative (Negative); Ketones,Urine Negative (Negative); Leukocyte Esterase,Urine Large (Negative); Mucus,Urine Rare /hpf; Nitrite,Urine Negative (Negative); PH, Urine 5.5 (5.0-8.0); Particle Count 50294; Protein,Urine Trace (Negative); RBC,Urine 7 /hpf (0-5); Specific Gravity,Urine 1.015 (1.001-1.035); UA Billing (MACRO vs. MICRO) MICRO; Urobilinogen,Urine <2.0 mg/dL (<2.0); WBC,Urine >182 /hpf (0-5)
[2017-06-04 10:33] LABS: Calcium 9.3 mg/dL (8.4-10.2); Phosphorous 3.4 mg/dL (2.5-4.5); Potassium 5.2 mmol/L (3.5-5.1); Total Bilirubin 0.5 mg/dL (0.2-1.3); Total Protein 6.8 g/dL (6.3-8.2)
== END | disposition home or self-care (01) ==
LOC: LABWHC1 09:46
PROVIDERS: ATTEND Internal Medicine
DX: D64.9 Anemia, unspecified (principal); N39.0 Urinary tract infection, site not specified; E83.39 Other disorders of phosphorus metabolism
CPT/HCPCS: 36415; 80053; 81001; 84100; 85027

== ENCOUNTER → 2017-06-22 | Outpatient (CLI) | payer MEDICARE ==
--- NOTE | 2017-06-22 22:58 | US ---
EXAMINATION TYPE: US kidneys/renal and bladder DATE OF EXAM: 06/22/2017 COMPARISON: NONE CLINICAL HISTORY: 72-year-old female N18.9 Chronic Kidney Disease. TECHNIQUE: Multiple sonographic images of the kidneys and bladder were obtained. FINDINGS: CUSTOMER SUCCESS REPRESENTATIVE NOTES: Technically difficult exam due to obese patient who has parkinson's and is unable to roll on side or hold breath. Right Kidney: 10.0 x 6.0 x 7.1 cm with mild hydronephrosis. Left Kidney: 11.7 x 5.3 x 5.2 cm without hydronephrosis. There is a 2.8 cm benign parapelvic cyst at the mid to lower pole. Underdistention of the bladder limits its evaluation. IMPRESSION: 1. Mild hydronephrosis on the right. 2. A benign 2.8 cm parapelvic cyst on the left.
== END ==
LOC: RADUSWWP 16:12
PROVIDERS: ATTEND Internal Medicine
DX: N13.30 Unspecified hydronephrosis (principal); N94.89 Other specified conditions associated with female genital organs and menstrual cycle
CPT/HCPCS: 76770

== ENCOUNTER → 2017-08-27 | Outpatient (CLI) | payer MEDICARE ==
[2017-08-27 10:52] LABS: Appearance,Urine Turbid (Clear); Bacteria,Urine Many /hpf; Bilirubin,Urine Negative (Negative); Glucose,Urine (UA) Negative (Negative); Ketones,Urine Negative (Negative); Leukocyte Esterase,Urine Large (Negative); Mucus,Urine Moderate /hpf; Nitrite,Urine Negative (Negative); Particle Count 9756; Protein,Urine Trace (Negative); RBC,Urine 5 /hpf (0-5); Specific Gravity,Urine 1.015 (1.001-1.035); Squamous Epithelial Cell,Urine 6 /hpf (0-4); UA Billing (MACRO vs. MICRO) MICRO; Urobilinogen,Urine <2.0 mg/dL (<2.0); WBC,Urine >182 /hpf (0-5)
[2017-08-27 11:01] LABS: CH 31.3; CHCM 32.1; HCT 33.3 % (34.0-46.0); HDW 2.74; HGB 11.1 gm/dL (11.4-16.0); MCH 32.6 pg (25.0-35.0); MCHC 33.3 g/dL (31.0-37.0); MCV 97.9 fL (80.0-100.0); Mean Platelet Volume 7.9; RDW 14.3 % (11.5-15.5); WBC 6.3 k/uL (3.8-10.6)
[2017-08-27 11:21] LABS: Calcium 9.1 mg/dL (8.4-10.2); Magnesium 1.8 mg/dL (1.6-2.3); Phosphorous 3.2 mg/dL (2.5-4.5); Potassium 4.6 mmol/L (3.5-5.1); Total Bilirubin 0.4 mg/dL (0.2-1.3); Total Protein 6.8 g/dL (6.3-8.2); Uric Acid 9.3 mg/dL (3.7-7.4)
[2017-08-27 16:47] LABS: Iron Saturation 12.89 (12.00-45.00)
== END | disposition home or self-care (01) ==
LOC: LABWHC1 10:26
PROVIDERS: ATTEND Internal Medicine
DX: N18.9 Chronic kidney disease, unspecified (principal); E55.9 Vitamin D deficiency, unspecified; M10.9 Gout, unspecified; N39.0 Urinary tract infection, site not specified
CPT/HCPCS: 36415; 80053; 81001; 82306; 82570; 82728; 83540; 83550; 83735; 83970; 84100; 84156; 84550; 85027

== ENCOUNTER → 2017-11-30 | Outpatient (CLI) | payer MEDICARE ==
[2017-11-30 10:12] LABS: HCT 38.2 % (34.0-46.0); HGB 11.9 gm/dL (11.4-16.0); MCH 30.7 pg (25.0-35.0); MCHC 31.2 g/dL (31.0-37.0); MCV 98.6 fL (80.0-100.0); Macrocytosis Slight; Mean Platelet Volume 7.7; Platelet Count 160 k/uL (150-450); RBC 3.87 m/uL (3.80-5.40); RDW 15.6 % (11.5-15.5); WBC 7.3 k/uL (3.8-10.6)
[2017-11-30 10:18] LABS: Appearance,Urine Turbid (Clear); Bacteria,Urine Many /hpf; Bilirubin,Urine Negative (Negative); Blood,Urine Small (Negative); Color,Urine Yellow; Glucose,Urine (UA) Negative (Negative); Ketones,Urine Negative (Negative); Leukocyte Esterase,Urine Large (Negative); Mucus,Urine Many /hpf; Nitrite,Urine Negative (Negative); Protein,Urine 1+ (Negative); RBC,Urine 27 /hpf (0-5); Specific Gravity,Urine 1.015 (1.001-1.035); Squamous Epithelial Cell,Urine 6 /hpf (0-4); WBC,Urine >182 /hpf (0-5)
[2017-11-30 10:26] LABS: Albumin 3.9 g/dL (3.5-5.0); Calcium 9.9 mg/dL (8.4-10.2); Magnesium 1.8 mg/dL (1.6-2.3); Phosphorus 4.1 mg/dL (2.5-4.5); Potassium 5.3 mmol/L (3.5-5.1); Total Bilirubin 0.5 mg/dL (0.2-1.3); Uric Acid 7.9 mg/dL (3.7-7.4)
[2017-11-30 10:36] LABS: Creatinine,Urine Random 156.7 mg/dL
[2017-11-30 16:11] LABS: Iron Saturation 21.78 (12.00-45.00)
[2017-11-30 16:20] LABS: Vitamin D 25 Hydroxy 38.8 ng/mL (30.0-100.0)
[2017-11-30 18:00] LABS: Parathyroid Hormone Intact 157.8 pg/mL (14.0-72.0)
== END | disposition home or self-care (01) ==
LOC: LABWHC1 09:32
PROVIDERS: ATTEND Nurse Practitioner Family
DX: E79.0 Hyperuricemia without signs of inflammatory arthritis and tophaceous disease (principal); N18.9 Chronic kidney disease, unspecified; D50.9 Iron deficiency anemia, unspecified; N25.81 Secondary hyperparathyroidism of renal origin; E55.9 Vitamin D deficiency, unspecified; N39.0 Urinary tract infection, site not specified; R80.9 Proteinuria, unspecified
CPT/HCPCS: 36415; 80053; 81001; 82306; 82570; 82728; 83540; 83550; 83735; 83970; 84100; 84156; 84550; 85027; 87077; 87086; 87186

== ENCOUNTER → 2018-04-01 | Outpatient (CLI) | payer MEDICARE ==
[2018-04-01 12:11] LABS: HGB 11.9 gm/dL (11.4-16.0); MCH 32.1 pg (25.0-35.0); MCHC 33.1 g/dL (31.0-37.0); MCV 97.1 fL (80.0-100.0); Mean Platelet Volume 7.2; Platelet Count 197 k/uL (150-450); RDW 14.2 % (11.5-15.5); WBC 9.3 k/uL (3.8-10.6)
[2018-04-01 12:27] LABS: Albumin 3.6 g/dL (3.5-5.0); Calcium 9.5 mg/dL (8.4-10.2); Magnesium 1.7 mg/dL (1.6-2.3); Phosphorus 3.6 mg/dL (2.5-4.5); Potassium 4.9 mmol/L (3.5-5.1); Total Bilirubin 0.5 mg/dL (0.2-1.3); Total Protein 6.2 g/dL (6.3-8.2)
[2018-04-01 14:02] LABS: Creatinine,Urine Random 110.9 mg/dL
[2018-04-01 15:46] LABS: Vitamin D 25 Hydroxy 23.2 ng/mL (30.0-100.0)
[2018-04-01 15:56] LABS: Iron Saturation 15.23 (12.00-45.00)
[2018-04-01 16:03] LABS: Parathyroid Hormone Intact 160.6 pg/mL (14.0-72.0)
[2018-04-01 16:55] LABS: Anti-DNA, DS unit <1.0 IU/mL; DNA Double-Stranded NEGATIVE (NEGATIVE)
[2018-04-04 15:36] LABS: C-ANCA <1:20 Titer (<1:20); P-ANCA <1:20 Titer (<1:20)
== END | disposition home or self-care (01) ==
LOC: LABWHC1 11:34
PROVIDERS: ATTEND Nurse Practitioner Family
DX: E55.9 Vitamin D deficiency, unspecified (principal); D63.1 Anemia in chronic kidney disease; N18.9 Chronic kidney disease, unspecified; D50.9 Iron deficiency anemia, unspecified; N25.81 Secondary hyperparathyroidism of renal origin; E79.0 Hyperuricemia without signs of inflammatory arthritis and tophaceous disease; R80.9 Proteinuria, unspecified; N39.0 Urinary tract infection, site not specified
CPT/HCPCS: 36415; 80053; 82306; 82570; 82728; 83516; 83540; 83550; 83735; 83883; 83970; 84100; 84156; 84550; 85027; 86038; 86160; 86162; 86225; 86255; 86334

== ENCOUNTER → 2018-08-03 | Outpatient (CLI) | payer MEDICARE ==
[2018-08-03 13:45] LABS: Appearance,Urine Turbid (Clear); Bacteria,Urine Moderate /hpf; Bilirubin,Urine Negative (Negative); Blood,Urine Small (Negative); Color,Urine Yellow; Glucose,Urine (UA) Negative (Negative); Hyaline Casts,Urine 8 /lpf (0-2); Ketones,Urine Negative (Negative); Leukocyte Esterase,Urine Large (Negative); Mucus,Urine Rare /hpf; Nitrite,Urine Negative (Negative); PH, Urine 5.5 (5.0-8.0); Protein,Urine Trace (Negative); RBC,Urine 7 /hpf (0-5); Specific Gravity,Urine 1.015 (1.001-1.035); Squamous Epithelial Cell,Urine 1 /hpf (0-4); Urobilinogen,Urine <2.0 mg/dL (<2.0); WBC,Urine >182 /hpf (0-5)
[2018-08-03 13:49] LABS: Creatinine,Urine Random 92.6 mg/dL
[2018-08-03 14:08] LABS: HCT 37.5 % (34.0-46.0); MCH 31.5 pg (25.0-35.0); MCV 98.5 fL (80.0-100.0); Mean Platelet Volume 6.9; Platelet Count 157 k/uL (150-450); RBC 3.81 m/uL (3.80-5.40); RDW 14.3 % (11.5-15.5); WBC 6.9 k/uL (3.8-10.6)
[2018-08-03 14:32] LABS: Calcium 9.7 mg/dL (8.4-10.2); Magnesium 1.6 mg/dL (1.6-2.3); Phosphorus 4.2 mg/dL (2.5-4.5); Potassium 5.6 mmol/L (3.5-5.1); Total Bilirubin 0.5 mg/dL (0.2-1.3); Uric Acid 6.1 mg/dL (3.7-7.4)
[2018-08-03 18:39] LABS: Iron Saturation 21.78 (12.00-45.00)
[2018-08-03 18:47] LABS: Vitamin D 25 Hydroxy 31.4 ng/mL (30.0-100.0)
[2018-08-03 20:22] LABS: Parathyroid Hormone Intact 133.6 pg/mL (14.0-72.0)
== END | disposition home or self-care (01) ==
LOC: LABWHC1 12:54
PROVIDERS: ATTEND Nurse Practitioner Family
DX: N18.9 Chronic kidney disease, unspecified (principal); N25.81 Secondary hyperparathyroidism of renal origin; E55.9 Vitamin D deficiency, unspecified; D50.9 Iron deficiency anemia, unspecified; E79.0 Hyperuricemia without signs of inflammatory arthritis and tophaceous disease; N39.0 Urinary tract infection, site not specified; R80.9 Proteinuria, unspecified
CPT/HCPCS: 36415; 80053; 81001; 82306; 82570; 82728; 83540; 83550; 83735; 83970; 84100; 84156; 84550; 85027

== ENCOUNTER → 2018-10-24 | Outpatient (CLI) | payer MEDICARE ==
[2018-10-24 10:07] LABS: Basophils % (A) 0 %; Eosinophils # (A) 0.3 k/uL (0-0.7); Eosinophils % (A) 4 %; HGB 12.1 gm/dL (11.4-16.0); Hypochromasia Slight; Lymphocytes # (A) 1.1 k/uL (1.0-4.8); Lymphocytes % (A) 16 %; MCH 31.5 pg (25.0-35.0); MCHC 31.9 g/dL (31.0-37.0); MCV 98.8 fL (80.0-100.0); Mean Platelet Volume 7.3; Monocytes # (A) 0.3 k/uL (0-1.0); Monocytes % (A) 4 %; Neutrophils # (A) 4.8 k/uL (1.3-7.7); Neutrophils % (A) 74 %; Platelet Count 157 k/uL (150-450); RBC 3.85 m/uL (3.80-5.40); RDW 14.1 % (11.5-15.5); WBC 6.5 k/uL (3.8-10.6)
[2018-10-24 18:01] LABS: ALT <8 U/L (8-44); AST 15 U/L (13-35); Albumin/Globulin Ratio 2.05 (1.20-2.10); Alkaline Phosphatase 93 U/L (41-126); Calcium 9.6 mg/dL (8.7-10.3); Chloride 106 mmol/L (96-109); Cholesterol 151 mg/dL (0-200); Glucose 104 mg/dL (70-110); LDL Cholesterol,Calculated 75.4 mg/dL (0.0-131.0); Potassium 5.2 mmol/L (3.5-5.5); Sodium 142 mmol/L (135-145); Total Bilirubin 0.5 mg/dL (0.3-1.2); Total Protein 6.1 g/dL (6.2-8.2)
== END | disposition home or self-care (01) ==
LOC: LABWHC1 09:07
PROVIDERS: ATTEND Family Medicine
DX: Z00.00 Encounter for general adult medical examination without abnormal findings (principal); I12.9 Hypertensive chronic kidney disease with stage 1 through stage 4 chronic kidney disease, or unspecified chronic kidney disease; E03.9 Hypothyroidism, unspecified; G20 Parkinson's disease; N18.2 Chronic kidney disease, stage 2 (mild); Z79.899 Other long term (current) drug therapy
CPT/HCPCS: 36415; 80053; 80061; 84439; 84443; 85025

== ENCOUNTER → 2018-11-29 | Outpatient (CLI) | payer MEDICARE ==
[2018-11-29 13:30] LABS: HCT 34.4 % (34.0-46.0); HGB 10.7 gm/dL (11.4-16.0); MCH 30.6 pg (25.0-35.0); MCHC 31.1 g/dL (31.0-37.0); MCV 98.3 fL (80.0-100.0); Mean Platelet Volume 6.9; Platelet Count 175 k/uL (150-450); RDW 14.5 % (11.5-15.5); WBC 7.1 k/uL (3.8-10.6)
[2018-11-29 14:57] LABS: Appearance,Urine Turbid (Clear); Bacteria,Urine Few /hpf; Bilirubin,Urine Negative (Negative); Blood,Urine Small (Negative); Color,Urine Yellow; Glucose,Urine (UA) Negative (Negative); Ketones,Urine Negative (Negative); Leukocyte Esterase,Urine Large (Negative); Nitrite,Urine Negative (Negative); PH, Urine 5.5 (5.0-8.0); Protein,Urine 1+ (Negative); RBC,Urine 4 /hpf (0-5); Specific Gravity,Urine 1.015 (1.001-1.035); Squamous Epithelial Cell,Urine 2 /hpf (0-4); Urobilinogen,Urine <2.0 mg/dL (<2.0); WBC,Urine >182 /hpf (0-5)
[2018-11-29 19:05] LABS: Iron Saturation 19.06 (12.00-45.00)
[2018-11-29 19:17] LABS: Vitamin D 25 Hydroxy 44.8 ng/mL (30.0-100.0)
[2018-11-29 20:52] LABS: Parathyroid Hormone Intact 151.2 pg/mL (14.0-72.0)
[2018-11-29 20:54] LABS: Creatinine,Urine Random 84.8 mg/dL
[2018-11-29 20:57] LABS: Total Protein,Urine Random 34.5 mg/dL (0.0-13.5)
[2018-11-29 21:33] LABS: ALT <8 U/L (8-44); AST 13 U/L (13-35); Albumin/Globulin Ratio 2.47 (1.20-2.10); Alkaline Phosphatase 95 U/L (41-126); Calcium 9.3 mg/dL (8.7-10.3); Carbon Dioxide 28.8 mmol/L (21.6-31.8); Chloride 105 mmol/L (96-109); Globulin 1.7 g/dL (1.6-3.3); Glucose 97 mg/dL (70-110); Magnesium 1.7 mg/dL (1.5-2.4); Phosphorus 3.6 mg/dL (2.4-5.1); Potassium 5.1 mmol/L (3.5-5.5); Sodium 142 mmol/L (135-145); Total Bilirubin 0.4 mg/dL (0.3-1.2); Total Protein 5.9 g/dL (6.2-8.2); Uric Acid 6.8 mg/dL (2.9-7.7)
== END | disposition home or self-care (01) ==
LOC: LABWHC1 11:53
PROVIDERS: ATTEND Nurse Practitioner Family
DX: N18.9 Chronic kidney disease, unspecified (principal); N25.81 Secondary hyperparathyroidism of renal origin; E55.9 Vitamin D deficiency, unspecified; D50.9 Iron deficiency anemia, unspecified; E79.0 Hyperuricemia without signs of inflammatory arthritis and tophaceous disease; N39.0 Urinary tract infection, site not specified; R80.9 Proteinuria, unspecified
CPT/HCPCS: 36415; 80053; 81001; 82306; 82570; 82728; 83540; 83550; 83735; 83970; 84100; 84156; 84550; 85027; 87086

== ENCOUNTER → 2019-01-03 | Outpatient (CLI) | payer MEDICARE ==
[2019-01-03 13:47] LABS: HCT 36.3 % (34.0-46.0); HGB 11.6 gm/dL (11.4-16.0); MCH 31.7 pg (25.0-35.0); MCHC 31.9 g/dL (31.0-37.0); MCV 99.3 fL (80.0-100.0); Macrocytosis Slight; Mean Platelet Volume 7.7; Platelet Count 152 k/uL (150-450); RBC 3.65 m/uL (3.80-5.40); RDW 14.7 % (11.5-15.5); WBC 7.1 k/uL (3.8-10.6)
[2019-01-03 13:53] LABS: Appearance,Urine Cloudy (Clear); Bacteria,Urine Moderate /hpf; Bilirubin,Urine Negative (Negative); Blood,Urine Negative (Negative); Color,Urine Yellow; Glucose,Urine (UA) Negative (Negative); Hyaline Casts,Urine 4 /lpf (0-2); Ketones,Urine Negative (Negative); Leukocyte Esterase,Urine Large (Negative); Mucus,Urine Rare /hpf; Nitrite,Urine Negative (Negative); Protein,Urine Negative (Negative); RBC,Urine 2 /hpf (0-5); Specific Gravity,Urine 1.009 (1.001-1.035); Squamous Epithelial Cell,Urine 1 /hpf (0-4); Urobilinogen,Urine <2.0 mg/dL (<2.0); WBC,Urine 83 /hpf (0-5)
[2019-01-03 18:55] LABS: ALT <8 U/L (8-44); AST 20 U/L (13-35); Alkaline Phosphatase 94 U/L (41-126); Calcium 9.6 mg/dL (8.7-10.3); Carbon Dioxide 28.4 mmol/L (21.6-31.8); Chloride 102 mmol/L (96-109); Glucose 98 mg/dL (70-110); Sodium 140 mmol/L (135-145); Total Bilirubin 0.4 mg/dL (0.2-1.2); Uric Acid 5.8 mg/dL (2.9-7.7)
[2019-01-03 19:17] LABS: Iron Saturation 28.98 (12.00-45.00)
== END | disposition home or self-care (01) ==
LOC: LABWHC1 12:45
PROVIDERS: ATTEND Nurse Practitioner Family
DX: N18.9 Chronic kidney disease, unspecified (principal); D50.9 Iron deficiency anemia, unspecified; E79.0 Hyperuricemia without signs of inflammatory arthritis and tophaceous disease; N39.0 Urinary tract infection, site not specified
CPT/HCPCS: 36415; 80053; 81001; 82728; 83540; 83550; 84550; 85027; 87086

== ENCOUNTER → 2019-01-18 | Outpatient (CLI) | payer MEDICARE ==
--- NOTE | 2019-01-20 08:54 | MM ---
Reason for exam: screening (asymptomatic). Last mammogram was performed 2 years ago. History: Patient is postmenopausal and is nulliparous. Family history of premenopausal breast cancer in sister at age 48. Took estrogen for 12 years beginning at age 48. Physical Findings: A clinical breast exam by your physician is recommended on an annual basis and results should be correlated with mammographic findings. MG Screening Mammo w CAD Bilateral CC and MLO view(s) were taken. Prior study comparison: January 12, 2017, bilateral MG 3d screening mammo w/cad. August 21, 2015, bilateral MG screening mammo w CAD. The breast tissue is heterogeneously dense. This may lower the sensitivity of mammography. No significant changes when compared with prior studies. ASSESSMENT: Negative, BI-RAD 1 RECOMMENDATION: Routine screening mammogram of both breasts in 1 year.
== END | disposition home or self-care (01) ==
LOC: RADMAMWWP 13:08
PROVIDERS: ATTEND Family Medicine
DX: Z12.31 Encounter for screening mammogram for malignant neoplasm of breast (principal)
CPT/HCPCS: 77067

== ENCOUNTER → 2019-04-13 | Outpatient (CLI) | payer MEDICARE ==
[2019-04-13 12:49] LABS: Basophils % (A) 0 %; Eosinophils # (A) 0.3 k/uL (0-0.7); Eosinophils % (A) 4 %; HCT 37.2 % (34.0-46.0); HGB 12.2 gm/dL (11.4-16.0); Lymphocytes % (A) 15 %; MCH 31.5 pg (25.0-35.0); MCHC 32.8 g/dL (31.0-37.0); MCV 96.2 fL (80.0-100.0); Mean Platelet Volume 7.7; Monocytes # (A) 0.3 k/uL (0-1.0); Monocytes % (A) 4 %; Neutrophils # (A) 5.5 k/uL (1.3-7.7); Neutrophils % (A) 76 %; Platelet Count 145 k/uL (150-450); RBC 3.86 m/uL (3.80-5.40); RDW 14.2 % (11.5-15.5); WBC 7.2 k/uL (3.8-10.6)
[2019-04-13 19:59] LABS: Parathyroid Hormone Intact 119.5 pg/mL (14.0-72.0)
[2019-04-13 20:46] LABS: Iron Saturation 18.75 (12.00-45.00)
[2019-04-13 20:49] LABS: ALT <8 U/L (8-44); AST 17 U/L (13-35); Albumin/Globulin Ratio 2.39 (1.60-3.17); Alkaline Phosphatase 95 U/L (41-126); Calcium 9.6 mg/dL (8.7-10.3); Carbon Dioxide 27.9 mmol/L (21.6-31.8); Chloride 106 mmol/L (96-109); Globulin 1.8 g/dL (1.6-3.3); Glucose 136 mg/dL (70-110); Magnesium 1.6 mg/dL (1.5-2.4); Phosphorus 3.9 mg/dL (2.4-5.1); Potassium 4.2 mmol/L (3.5-5.5); Sodium 144 mmol/L (135-145); Total Bilirubin 0.4 mg/dL (0.3-1.2); Total Protein 6.1 g/dL (6.2-8.2)
[2019-04-13 20:53] LABS: Vitamin D 25 Hydroxy 43.7 ng/mL (30.0-100.0)
[2019-04-14 08:26] LABS: Appearance,Urine Clear (Clear); Bilirubin,Urine Negative (Negative); Blood,Urine Negative (Negative); Color,Urine Yellow; Glucose,Urine (UA) Negative (Negative); Ketones,Urine Negative (Negative); Leukocyte Esterase,Urine Negative (Negative); Nitrite,Urine Negative (Negative); Protein,Urine Negative (Negative); Specific Gravity,Urine 1.021 (1.001-1.035)
== END ==
LOC: LABWHC1 12:03
PROVIDERS: ATTEND Internal Medicine
DX: N18.9 Chronic kidney disease, unspecified (principal); D63.1 Anemia in chronic kidney disease; N39.0 Urinary tract infection, site not specified; E21.3 Hyperparathyroidism, unspecified; E55.9 Vitamin D deficiency, unspecified; M10.9 Gout, unspecified
CPT/HCPCS: 36415; 80053; 81003; 82306; 82728; 83540; 83550; 83735; 83970; 84100; 84550; 85025

== ENCOUNTER 2019-05-19 11:46 | Emergency (ER) | payer MEDICARE ==
[2019-05-19 11:55] VITALS: BP 127/76; PULSE 76; RESP 18; TEMP 98.7
--- NOTE | 2019-05-19 12:17 | ED ---
General Adult HPI - General Chief complaint: Extremity Problem,Nontraumatic Stated complaint: Toe injury Time Seen by Provider: 05/19/19 11:46 Source: patient, family, RN notes reviewed Mode of arrival: wheelchair Limitations: physical limitation - History of Present Illness Initial comments: This a 73-year-old female who presents emergency Department complaining of a red swollen left second toe. states she's been soaking it but it's not getting better. states it is starting to drain and smell. Patient has had no streaking from the toe patient has had no fever or chills per patient has no other complaints per patient is not a diabetic. - Related Data Home Medications Medication Instructions Recorded Confirmed Aspirin EC [Ecotrin] 81 mg PO DAILY 09/07/14 12/28/18 Carbidopa/Levodopa [Parcopa 25-100 1 tab SL QID 09/07/14 12/28/18 mg Odt] Carvedilol 6.25 mg PO BID 09/07/14 12/28/18 Escitalopram Oxalate [Lexapro] 10 mg PO DAILY 09/07/14 12/28/18 Omeprazole [PriLOSEC] 20 mg PO BID 09/07/14 12/28/18 Pravastatin Sodium [Pravachol] 80 mg PO DAILY 09/07/14 12/28/18 Triamterene/Hydrochlorothiazid 1 tab PO DAILY 09/07/14 12/28/18 [Triamterene-Hctz 37.5-25 mg Tb] Verapamil HCl [Verapamil ER] 240 mg PO DAILY 09/07/14 12/28/18 Allopurinol [Zyloprim] 100 mg PO DAILY 09/21/17 12/28/18 Calcitriol [Rocaltrol] 0.25 mcg PO WESA 05/19/19 05/19/19 Ergocalciferol (Vitamin D2) 50,000 unit PO Q14D 05/19/19 05/19/19 [Drisdol] Levothyroxine Sodium [Synthroid] 150 mcg PO DAILY 05/19/19 05/19/19 Lisinopril [Zestril] 10 mg PO DAILY 05/19/19 05/19/19 Pramipexole [Mirapex] 1 mg PO HS 05/19/19 05/19/19 Previous Rx's Medication Instructions Recorded Clotrimazole [Clotrimazole AF] 1 applic TOPICAL BID 7 Days #28 gm 05/19/19 Sulfamethox-Tmp 800-160Mg [Bactrim 2 each PO Q12HR #40 tab 05/19/19 DS 800-160 mg] Allergies Allergy/AdvReac Type Severity Reaction Status Date / Time amiodarone [From Cordarone] Allergy Anaphylaxis Verified 05/19/19 11:55 cyclobenzaprine Allergy Rash/Hives Verified 05/19/19 11:55 [From Flexeril] Review of Systems ROS Statement: Those systems with pertinent positive or pertinent negative responses have been documented in the HPI. ROS Other: All systems not noted in ROS Statement are negative. 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, hypothyroidism, hypertension, hyperlipidemia, Parkinson's disease, degenerative arthritis, anxiety, depression History of Any Multi-Drug Resistant Organisms: None Reported Past Surgical History: Hysterectomy, Orthopedic Surgery Additional Past Surgical History / Comment(s): Hammer toe surgery Past Anesthesia/Blood Transfusion Reactions: No Reported Reaction Past Psychological History: Anxiety, Bipolar, Depression Smoking Status: Former smoker Past Alcohol Use History: None Reported Past Drug Use History: None Reported - Past Family History Father Family Medical History: No Reported History General Exam - General Exam Comments Initial Comments: GENERAL Patient is well-developed and well-nourished. Patient is in mild distress. EYES Patient's pupils are equal and round. Extraocular motion is intact SKIN Unremarkable NEURO The patient is alert and oriented 3 PYSCH Patient has normal interpersonal interactions. MUSCULOSKELETAL Left second toe is very erythematous is malodorous. There is some slight drainage but no obvious pus. Limitations: physical limitation Course Vital Signs 05/19/19 11:51 Temperature 98.7 F Pulse Rate 76 Respiratory 18 Rate Blood Pressure 127/76 O2 Sat by Pulse 94 L Oximetry Medical Decision Making - Medical Decision Making Total was clean and antifungal cream was applied because it might have been a secondary fungal infection. Disposition Clinical Impression: Cellulitis, toe Disposition: HOME SELF-CARE Prescriptions: Sulfamethox-Tmp 800-160Mg [Bactrim DS 800-160 mg] 2 each PO Q12HR #40 tab Clotrimazole [Clotrimazole AF] 1 applic TOPICAL BID 7 Days #28 gm Is patient prescribed a controlled substance at d/c from ED?: No Referrals: Cameron Nelson MD [Primary Care Provider] - 1-2 days
[2019-05-19] MEDS ORDERED: CLOTRIMAZOLE 1% CREAM 15 GM TUBE TOPICAL STA (12:18)
== END 2019-05-19 12:54 | disposition home or self-care (01) ==
LOC: EC 11:46
DX: L03.032 Cellulitis of left toe (principal); E78.5 Hyperlipidemia, unspecified; I10 Essential (primary) hypertension; E03.9 Hypothyroidism, unspecified; G20 Parkinson's disease; M19.90 Unspecified osteoarthritis, unspecified site; F31.9 Bipolar disorder, unspecified; F41.9 Anxiety disorder, unspecified; Z87.891 Personal history of nicotine dependence; Z88.8 Allergy status to other drugs, medicaments and biological substances; Z79.82 Long term (current) use of aspirin; Z79.890 Hormone replacement therapy; Z79.899 Other long term (current) drug therapy; Z86.73 Personal history of transient ischemic attack (TIA), and cerebral infarction without residual deficits; Z98.890 Other specified postprocedural states
CPT/HCPCS: 99283

== ENCOUNTER 2019-05-27 16:47 | Inpatient (IN) | payer MEDICARE ==
[2019-05-27] MEDS ORDERED: ACETAMINOPHEN TAB 500 MG TAB PO STA (17:28)
[2019-05-27] MEDS ORDERED: CEFEPIME 2 GM in SODIUM CHLORIDE 0.9% 100 ML IVPB STA (17:32)
[2019-05-27] MEDS ORDERED: VANCOMYCIN IV PER PHARMACY 1 EACH MISC MISCELLANE PRN (17:33)
--- NOTE | 2019-05-27 17:37 | ED ---
General Adult HPI - General Chief complaint: Weakness Stated complaint: SOB, constipated Time Seen by Provider: 05/27/19 17:00 Source: patient, family Mode of arrival: wheelchair Limitations: no limitations - History of Present Illness Initial comments: Dictation was produced using [employer] dictation software. please excuse any grammatical, word or spelling errors. Chief Complaint: 73-year-old female past medical history of CVA, disorder and hypertension thyroid disease presents with vomiting and abdominal pain and fever. History of Present Illness: 73-year-old female. She has been feeling sick for approximately one week. Patient is a poor historian at this time. She is accompanied by her . She has been having constipation over the last 3-4 days. She did start spiking temperatures at home. Patient complains of fevers or night chills. noticed a rash recently. Patient has a neck pain or headache. Denies any neuro deficits. Patient has had multiple bouts of nausea and vomiting. She also reports coughing. The ROS documented in this emergency department record has been reviewed and confirmed by me. Those systems with pertinent positive or negative responses have been documented in the HPI. All other systems are other negative and/or noncontributory. PHYSICAL EXAM: General Impression: Alert and oriented x3, respiratory distress HEENT: Normocephalic atraumatic, extra-ocular movements intact, pupils equal and reactive to light bilaterally, mucous membranes moist. Cardiovascular: Heart regular rate and rhythm, S1&S2 audible, no murmurs, rubs or gallops Chest: Bilateral breath sounds, limited exam due to body habitus Abdomen: Distended abdomen, diffuse abdominal tenderness Musculoskeletal: Pulses present and equal in all extremities, no peripheral edema Motor: no focal deficits noted Neurological: CN II-XII grossly intact, no focal motor or sensory deficits noted Skin: Diffuse papular rash ED course: 73-year-old female presents with 8 of abdominal pain and constituti onal symptoms. Vital signs upon arrival shows temperature 101.1, heart rate 106, oxygen saturation of 87% on room air. Clinical presentation is suspicious for sepsis. At this point there are multiple signs of localization including abdomen and respiratory. Patient does have a rash over does not have any signs of meningitis. Brudzinski's and Kernig's sign is negative. Patient has no complaints of headache or neck pain. evaluation obtained. No leukocytosis. Hemoglobin stable. Platelets shows normal sided pain 92. Coag panel unremarkable. Metabolic panel shows potassium 5.5, elevated renal markers with a creatinine of 2.1 even a 43. Urinalysis shows 11 white blood cells. Chest x-ray is nonacute. Abdominal x-rays nonobstructive. CT abdomen and pelvis was obtained to evaluate for intra- abdominal infection. Patient is fever and abdominal pain. CT shows bilateral hydronephrosis of uncertain etiology. There is no obstructing renal stones. Patient continues to make urine. She states she does have a history of this. At this point patient's clinical presentation does not suggest any localizing findings of infection. At this point her clinical presentation is consistent with scissors. Patient be admitted for rule out sepsis. Patient given broad- spectrum antibiotics. Infectious disease consultation. EKG interpretation: Ventricular rate 105, sinus tachycardia,. Interval 190, QS 80, QTc 438. No MA prolongation, no QTC prolongation, no ST or T-wave changes noted. EKG compared to 04/01/2017 showing no changes. Overall, this EKG is unremarkable - Related Data Home Medications Medication Instructions Recorded Confirmed Carbidopa/Levodopa [Parcopa 25-100 1 tab SL QID 09/07/14 05/27/19 mg Odt] Carvedilol 6.25 mg PO BID 09/07/14 05/27/19 Escitalopram Oxalate [Lexapro] 10 mg PO DAILY 09/07/14 05/27/19 Omeprazole [PriLOSEC] 20 mg PO BID 09/07/14 05/27/19 Pravastatin Sodium [Pravachol] 80 mg PO DAILY 09/07/14 05/27/19 Triamterene/Hydrochlorothiazid 1 tab PO DAILY 09/07/14 05/27/19 [Triamterene-Hctz 37.5-25 mg Tb] Verapamil HCl [Verapamil ER] 240 mg PO DAILY 09/07/14 05/27/19 Allopurinol [Zyloprim] 100 mg PO BID 09/21/17 05/27/19 Calcitriol [Rocaltrol] 0.25 mcg PO WESA 05/19/19 05/27/19 Ergocalciferol (Vitamin D2) 50,000 unit PO Q14D 05/19/19 05/27/19 [Drisdol] Levothyroxine Sodium [Synthroid] 150 mcg PO DAILY 05/19/19 05/27/19 Lisinopril [Zestril] 10 mg PO DAILY 05/19/19 05/27/19 Pramipexole [Mirapex] 1 mg PO DAILY 05/19/19 05/27/19 Aspirin EC [Ecotrin] 325 mg PO DAILY 05/27/19 05/27/19 Fluocinonide 0.05% [Lidex 0.05% 1 applic TOPICAL BID 05/27/19 05/27/19 cream] Hydrocortisone Oint 1 applic TOPICAL BID 05/27/19 05/27/19 [Hydrocortisone 2.5% Oint] Ketoconazole [Ketoconazole 2%] 1 applic TOPICAL BID 05/27/19 05/27/19 Sulfamethox-Tmp 800-160Mg [Bactrim 2 tab PO Q12HR 05/27/19 05/27/19 DS 800-160 mg] Previous Rx's Medication Instructions Recorded Clotrimazole [Clotrimazole AF] 1 applic TOPICAL BID 7 Days #28 gm 05/19/19 Allergies Allergy/AdvReac Type Severity Reaction Status Date / Time amiodarone [From Cordarone] Allergy Anaphylaxis Verified 05/27/19 19:03 cyclobenzaprine Allergy Rash/Hives Verified 05/27/19 19:03 [From Flexeril] Review of Systems ROS Statement: Those systems with pertinent positive or pertinent negative responses have been documented in the HPI. ROS Other: All systems not noted in ROS Statement are negative. 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, hypothyroidism, hypertension, hyperlipidemia, Parkinson's disease, degenerative arthritis, anxiety, depression History of Any Multi-Drug Resistant Organisms: None Reported Past Surgical History: Hysterectomy, Orthopedic Surgery Additional Past Surgical History / Comment(s): Hammer toe surgery Past Anesthesia/Blood Transfusion Reactions: No Reported Reaction Past Psychological History: Anxiety, Bipolar, Depression Smoking Status: Former smoker Past Alcohol Use History: None Reported Past Drug Use History: None Reported - Past Family History Father Family Medical History: No Reported History General Exam Limitations: no limitations Course Vital Signs 05/27/19 05/27/19 05/27/19 17:01 18:38 19:07 Temperature 101.1 F H 101.4 F H Pulse Rate 106 H 104 H 103 H Respiratory 24 22 24 Rate Blood Pressure 138/74 136/49 120/67 O2 Sat by Pulse 87 L 94 L 95 Oximetry 05/27/19 20:19 Temperature 101 F H Pulse Rate 101 H Respiratory 24 Rate Blood Pressure 115/66 O2 Sat by Pulse 95 Oximetry Medical Decision Making - Lab Data Result diagrams: 05/27/19 18:01 05/27/19 18:01 Lab Results 05/27/19 05/27/19 05/27/19 Range/Units 18:01 18:01 18:01 WBC 4.4 (3.8-10.6) k/uL RBC 3.61 L (3.80-5.40) m/uL Hgb 11.6 (11.4-16.0) gm/dL Hct 33.3 L (34.0-46.0) % MCV 92.3 (80.0-100.0) fL MCH 32.1 (25.0-35.0) pg MCHC 34.7 (31.0-37.0) g/dL RDW 14.5 (11.5-15.5) % Plt Count 92 L (150-450) k/uL Neutrophils % 81 % Lymphocytes % 7 % Monocytes % 3 % Eosinophils % 5 % Basophils % 0 % Neutrophils # 3.5 (1.3-7.7) k/uL Lymphocytes # 0.3 L (1.0-4.8) k/uL Monocytes # 0.1 (0-1.0) k/uL Eosinophils # 0.2 (0-0.7) k/uL Basophils # 0.0 (0-0.2) k/uL Manual Slide Review Performed Hypochromasia (manual) Present Anisocytosis (manual) Present PT (9.0-12.0) sec INR (<1.2) APTT (22.0-30.0) sec Sodium 134 L (137-145) mmol/L Potassium 5.5 H (3.5-5.1) mmol/L Chloride 100 (98-107) mmol/L Carbon Dioxide 22 (22-30) mmol/L Anion Gap 12 mmol/L BUN 43 H (7-17) mg/dL Creatinine 2.10 H (0.52-1.04) mg/dL Est GFR (CKD-EPI)AfAm 26 (>60 ml/min/1.73 sqM) Est GFR (CKD-EPI)NonAf 23 (>60 ml/min/1.73 sqM) Glucose 107 H (74-99) mg/dL Plasma Lactic Acid Donell 0.8 (0.7-2.0) mmol/L Calcium 9.1 (8.4-10.2) mg/dL Total Bilirubin 0.4 (0.2-1.3) mg/dL AST 41 H (14-36) U/L ALT 16 (9-52) U/L Alkaline Phosphatase 79 (38-126) U/L Total Protein 6.4 (6.3-8.2) g/dL Albumin 3.8 (3.5-5.0) g/dL Urine Color Urine Appearance (Clear) Urine pH (5.0-8.0) Ur Specific Lula (1.001-1.035) Urine Protein (Negative) Urine Glucose (UA) (Negative) Urine Ketones (Negative) Urine Blood (Negative) Urine Nitrite (Negative) Urine Bilirubin (Negative) Urine Urobilinogen (<2.0) mg/dL Ur Leukocyte Esterase (Negative) Urine RBC (0-5) /hpf Urine WBC (0-5) /hpf Ur Squamous Epith Cells (0-4) /hpf Urine Mucus (None) /hpf 05/27/19 05/27/19 Range/Units 18:01 19:50 WBC (3.8-10.6) k/uL RBC (3.80-5.40) m/uL Hgb (11.4-16.0) gm/dL Hct (34.0-46.0) % MCV (80.0-100.0) fL MCH (25.0-35.0) pg MCHC (31.0-37.0) g/dL RDW (11.5-15.5) % Plt Count (150-450) k/uL Neutrophils % % Lymphocytes % % Monocytes % % Eosinophils % % Basophils % % Neutrophils # (1.3-7.7) k/uL Lymphocytes # (1.0-4.8) k/uL Monocytes # (0-1.0) k/uL Eosinophils # (0-0.7) k/uL Basophils # (0-0.2) k/uL Manual Slide Review Hypochromasia (manual) Anisocytosis (manual) PT 11.0 (9.0-12.0) sec INR 1.0 (<1.2) APTT 25.8 (22.0-30.0) sec Sodium (137-145) mmol/L Potassium (3.5-5.1) mmol/L Chloride (98-107) mmol/L Carbon Dioxide (22-30) mmol/L Anion Gap mmol/L BUN (7-17) mg/dL Creatinine (0.52-1.04) mg/dL Est GFR (CKD-EPI)AfAm (>60 ml/min/1.73 sqM) Est GFR (CKD-EPI)NonAf (>60 ml/min/1.73 sqM) Glucose (74-99) mg/dL Plasma Lactic Acid Donell (0.7-2.0) mmol/L Calcium (8.4-10.2) mg/dL Total Bilirubin (0.2-1.3) mg/dL AST (14-36) U/L ALT (9-52) U/L Alkaline Phosphatase (38-126) U/L Total Protein (6.3-8.2) g/dL Albumin (3.5-5.0) g/dL Urine Color Yellow Urine Appearance Cloudy H (Clear) Urine pH 5.5 (5.0-8.0) Ur Specific Lula 1.018 (1.001-1.035) Urine Protein Trace H (Negative) Urine Glucose (UA) Negative (Negative) Urine Ketones Negative (Negative) Urine Blood Negative (Negative) Urine Nitrite Negative (Negative) Urine Bilirubin Negative (Negative) Urine Urobilinogen <2.0 (<2.0) mg/dL Ur Leukocyte Esterase Negative (Negative) Urine RBC 2 (0-5) /hpf Urine WBC 11 H (0-5) /hpf Ur Squamous Epith Cells <1 (0-4) /hpf Urine Mucus Rare H (None) /hpf Disposition Clinical Impression: SIRS (systemic inflammatory response syndrome) Disposition: ADMITTED IP TO THIS [facility] Condition: Fair Referrals: Cameron Neslon MD [Primary Care Provider] - 1-2 days Decision Time: 21:12
[2019-05-27] MEDS ORDERED: fentaNYL (PF) 50 MCG/ML 2 ML AMP IVP STA (17:38)
[2019-05-27] MEDS ORDERED: VANCOMYCIN 1,750 MG in SODIUM CHLORIDE 0.9% 500 ML 500 ML IVPB ONE (18:00)
--- NOTE | 2019-05-27 18:05 | XR ---
EXAMINATION TYPE: XR abdomen 1V DATE OF EXAM: 05/27/2019 COMPARISON: None INDICATION: Pain short of breath vomiting TECHNIQUE: Single view abdomen supine view FINDINGS: There is a normal bowel gas pattern. Psoas margins are normal. No organomegaly is present. IMPRESSION: 1. Unremarkable Abdomen
--- NOTE | 2019-05-27 18:05 | XR ---
EXAMINATION TYPE: XR chest 1V portable DATE OF EXAM: 05/27/2019 COMPARISON: 04/01/2017 INDICATION: Weakness short of breath TECHNIQUE: Single frontal view of the chest is obtained. FINDINGS: The heart size is normal. The pulmonary vasculature is normal. The lungs are clear. IMPRESSION: 1. No acute pulmonary process.
[2019-05-27 18:25] LABS: Basophils % (A) 0 %; Eosinophils # (A) 0.2 k/uL (0-0.7); Eosinophils % (A) 5 %; HCT 33.3 % (34.0-46.0); HGB 11.6 gm/dL (11.4-16.0); Lymphocytes # (A) 0.3 k/uL (1.0-4.8); Lymphocytes % (A) 7 %; MCH 32.1 pg (25.0-35.0); MCHC 34.7 g/dL (31.0-37.0); MCV 92.3 fL (80.0-100.0); Mean Platelet Volume 7.3; Monocytes # (A) 0.1 k/uL (0-1.0); Monocytes % (A) 3 %; Neutrophils # (A) 3.5 k/uL (1.3-7.7); Neutrophils % (A) 81 %; RBC 3.61 m/uL (3.80-5.40); RDW 14.5 % (11.5-15.5); WBC 4.4 k/uL (3.8-10.6)
[2019-05-27 18:27] LABS: Albumin 3.8 g/dL (3.5-5.0); Calcium 9.1 mg/dL (8.4-10.2); Potassium 5.5 mmol/L (3.5-5.1); Total Bilirubin 0.4 mg/dL (0.2-1.3); Total Protein 6.4 g/dL (6.3-8.2)
[2019-05-27] MEDS: SODIUM CHLORIDE 0.9% 500 ML 500 ML IV SCH ×2 (18:29→18:30)
[2019-05-27 18:35] LABS: Partial Thromboplastin Time 25.8 sec (22.0-30.0)
[2019-05-27 19:04] LABS: Anisocytosis (M) Present; Hypochromasia (M) Present; Platelet Count 92 k/uL (150-450)
--- NOTE | 2019-05-27 19:36 | CT ---
EXAMINATION TYPE: CT abdomen pelvis wo con DATE OF EXAM: 05/27/2019 COMPARISON: None INDICATION: Right sided abdominal pain. DLP: 1291.4 mGycm, Automated exposure control for dose reduction was used. CONTRAST: 0 mL of Isovue 300. Study performed without Oral Contrast TECHNIQUE: Axial images were obtained from above the diaphragm to the pubic rami in the axial plane a t 5 mm thick sections. Reconstructed images are reviewed on the computer in the coronal plane. FINDINGS: Limited CT sections are obtained the lung bases. The lung bases are clear. CT ABDOMEN: Liver: Normal Spleen: Normal Pancreas: Normal Adrenal glands: The adrenal glands are normal. Gallbladder: Normal Kidneys: No masses are evident. There is bilateral hydronephrosis greater on the right. Hydroureter h owever is not identified. No etiology for obstruction is evident. No cysts are present. No renal sto david are identified. Aorta: Vascular calcification is within the aorta. Inferior vena cava: Normal. CT PELVIS: Loops of bowel within the abdomen and pelvis are normal. The studies performed without oral contr ast limiting bowel evaluation. Appendix: Normal as visualized. Urinary bladder: Normal. Genitourinary structures: Uterus appears small. Adnexal regions appear clear. Osseous structures: No suspicious lytic or sclerotic lesions. IMPRESSIONS: 1. Bilateral hydronephrosis of uncertain etiology. Hydroureter is not evident. No obstructing renal stones are evident. Consider ultrasound for additional evaluation.
[2019-05-27 20:07] LABS: Appearance,Urine Cloudy (Clear); Bilirubin,Urine Negative (Negative); Blood,Urine Negative (Negative); Color,Urine Yellow; Glucose,Urine (UA) Negative (Negative); Ketones,Urine Negative (Negative); Leukocyte Esterase,Urine Negative (Negative); Mucus,Urine Rare /hpf; Nitrite,Urine Negative (Negative); PH, Urine 5.5 (5.0-8.0); Protein,Urine Trace (Negative); RBC,Urine 2 /hpf (0-5); Specific Gravity,Urine 1.018 (1.001-1.035); Squamous Epithelial Cell,Urine <1 /hpf (0-4); Urobilinogen,Urine <2.0 mg/dL (<2.0); WBC,Urine 11 /hpf (0-5)
[2019-05-27] MEDS ORDERED: NALOXONE 0.4 MG/ML 1 ML VIAL IV PRN (21:08)
[2019-05-27] MEDS ORDERED: ONDANSETRON 4 MG/2 ML VIAL IVP PRN (21:08)
[2019-05-28] MEDS: SODIUM CHLORIDE 0.9% 1,000 ML IV SCH ×3 (01:01→23:37)
[2019-05-28] MEDS: ACETAMINOPHEN TAB 325 MG TAB PO PRN ×3 (06:04→20:56)
[2019-05-28] MEDS ORDERED: PANTOPRAZOLE 40 MG TABLET PO SCH (07:30)
[2019-05-28] MEDS ORDERED: ESCITALOPRAM 10 MG TAB PO SCH (10:45)
[2019-05-28] MEDS: LEVOTHYROXINE 75 MCG TAB PO SCH (11:42)
[2019-05-28] MEDS: PRAVASTATIN SODIUM 80 MG TAB PO SCH (11:42)
[2019-05-28] MEDS: CARVEDILOL 6.25 MG TAB PO SCH ×2 (11:42→17:41)
[2019-05-28] MEDS: TRIAMCINOLONE ACET 0.1% OINTMENT 15 GM TUBE TOPICAL SCH (11:46)
[2019-05-28] MEDS: CLOTRIMAZOLE 1% CREAM 15 GM TUBE TOPICAL SCH ×2 (11:46→20:56)
[2019-05-28] MEDS ORDERED: VANCOMYCIN 1,750 MG in SODIUM CHLORIDE 0.9% 500 ML 500 ML IVPB ONE (12:00)
[2019-05-28] MEDS: CARBIDOPA-LEVODOPA 25-100 MG 1 EACH TAB PO SCH ×3 (12:04→20:56)
[2019-05-28 12:08] LABS: Basophils % (A) 0 %; Eosinophils # (A) 0.2 k/uL (0-0.7); Eosinophils % (A) 4 %; HGB 11.2 gm/dL (11.4-16.0); Lymphocytes # (A) 0.4 k/uL (1.0-4.8); Lymphocytes % (A) 10 %; MCH 31.2 pg (25.0-35.0); MCHC 31.9 g/dL (31.0-37.0); Mean Platelet Volume 7.3; Monocytes # (A) 0.1 k/uL (0-1.0); Monocytes % (A) 3 %; Neutrophils # (A) 3.1 k/uL (1.3-7.7); Neutrophils % (A) 80 %; RBC 3.58 m/uL (3.80-5.40); RDW 13.9 % (11.5-15.5); WBC 3.9 k/uL (3.8-10.6)
[2019-05-28 12:12] LABS: Platelet Count 78 k/uL (150-450)
[2019-05-28 12:13] LABS: MCV 97.6 fL (80.0-100.0)
[2019-05-28 12:16] LABS: Calcium 8.6 mg/dL (8.4-10.2); Potassium 5.4 mmol/L (3.5-5.1)
--- NOTE | 2019-05-28 12:16 | P.HPIM ---
History of Present Illness H&P Date: 05/28/19 Chief Complaint: Fever and abdominal pain This is a 73-year-old white female well-known to me. 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 So her history is difficult to get. Per the ER doctor and one unable to get from Leena herself, she been having 1 week history of not feeling well. She indicates some epigastric area as the source of her abdominal pain. Said that's been going on she hasn't had any symptoms other than a fever, and a rash started 1 day ago. She's been on Bactrim for an unspecified amount of time.. I try to call her at this point but he was not home. Leena also indicates that she is developed a rash decided started yesterday. This is to her thoracic and lumbar back. She indicates it does not really itch. I really was not able to elicit much more history from Leena her self. But certainly she is rarely ill and usually comes in the office immediately for upper respiratory tract infections other illnesses. Does have a history of hypertension and depression along with Parkinson's. She usually ambulates with a walker at home, but needs a wheelchair for any significant distances. She is obviously not herself attain appears quite distress. 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, hypothyroidism, hypertension, hyperlipidemia, Parkinson's disease, degenerative arthritis, anxiety, depression History of Any Multi-Drug Resistant Organisms: None Reported Past Surgical History: Hysterectomy, Orthopedic Surgery Additional Past Surgical History / Comment(s): Hammer toe surgery, recent infection to toe Past Anesthesia/Blood Transfusion Reactions: No Reported Reaction Past Psychological History: Anxiety, Bipolar, Depression Smoking Status: Former smoker Past Alcohol Use History: None Reported Past Drug Use History: None Reported - Past Family History Father Family Medical History: No Reported History Medications and Allergies Home Medications Medication Instructions Recorded Confirmed Type Carbidopa/Levodopa [Parcopa 25-100 1 tab SL QID 09/07/14 05/27/19 History mg Odt] Carvedilol 6.25 mg PO BID 09/07/14 05/27/19 History Escitalopram Oxalate [Lexapro] 10 mg PO DAILY 09/07/14 05/27/19 History Omeprazole [PriLOSEC] 20 mg PO BID 09/07/14 05/27/19 History Pravastatin Sodium [Pravachol] 80 mg PO DAILY 09/07/14 05/27/19 History Triamterene/Hydrochlorothiazid 1 tab PO DAILY 09/07/14 05/27/19 History [Triamterene-Hctz 37.5-25 mg Tb] Verapamil HCl [Verapamil ER] 240 mg PO DAILY 09/07/14 05/27/19 History Allopurinol [Zyloprim] 100 mg PO BID 09/21/17 05/27/19 History Calcitriol [Rocaltrol] 0.25 mcg PO WESA 05/19/19 05/27/19 History Clotrimazole [Clotrimazole AF] 1 applic TOPICAL BID 7 Days #28 gm 05/19/19 05/27/19 Rx Ergocalciferol (Vitamin D2) 50,000 unit PO Q14D 05/19/19 05/27/19 History [Drisdol] Levothyroxine Sodium [Synthroid] 150 mcg PO DAILY 05/19/19 05/27/19 History Lisinopril [Zestril] 10 mg PO DAILY 05/19/19 05/27/19 History Pramipexole [Mirapex] 1 mg PO DAILY 05/19/19 05/27/19 History Aspirin EC [Ecotrin] 325 mg PO DAILY 05/27/19 05/27/19 History Fluocinonide 0.05% [Lidex 0.05% 1 applic TOPICAL BID 05/27/19 05/27/19 History cream] Hydrocortisone Oint 1 applic TOPICAL BID 05/27/19 05/27/19 History [Hydrocortisone 2.5% Oint] Ketoconazole [Ketoconazole 2%] 1 applic TOPICAL BID 05/27/19 05/27/19 History Sulfamethox-Tmp 800-160Mg [Bactrim 2 tab PO Q12HR 05/27/19 05/27/19 History DS 800-160 mg] Allergies Allergy/AdvReac Type Severity Reaction Status Date / Time amiodarone [From Cordarone] Allergy Anaphylaxis Verified 05/27/19 19:03 cyclobenzaprine Allergy Rash/Hives Verified 05/27/19 19:03 [From Flexeril] Physical Exam Vitals: Vital Signs Temp Pulse Pulse Resp BP BP Pulse Ox 05/28/19 07:02 98.3 F 101 H 17 105/62 95 05/27/19 22:57 98.6 F 97 22 125/69 95 05/27/19 21:26 99.8 F H 97 22 116/65 94 L 05/27/19 20:19 101 F H 101 H 24 115/66 95 05/27/19 19:07 101.4 F H 103 H 24 120/67 95 05/27/19 18:38 104 H 22 136/49 94 L 05/27/19 17:01 101.1 F H 106 H 24 138/74 87 L Intake and Output 05/27/19 05/28/19 05/28/19 22:59 06:59 14:59 Other: Voiding Method Bedpan Bedpan # Voids 1 Weight 119.748 kg GENERAL: Morbidly obese white female in obvious pain and perspiring. HEAD: Atraumatic, normocephalic. ENT:nares patent, oropharynx clear without exudates. Moist mucous membranes. NECK: Normal range of motion, supple without lymphadenopathy or JVD, no thyromegaly LUNGS: Breath sounds coarse to auscultation bilaterally and equal. No wheezes rales or rhonchi. HEART: Regular rate and rhythm without murmurs, rubs or gallops.S1S2 Normal ABDOMEN: Soft, normoactive bowel sounds. ? guarding, no rebound. No masses appreciated. There is pain to palpation in midepigastrium. EXTREMITIES: Normal range of motion, no pitting or edema. No clubbing or cyanosis. There is some erythema to the inner webspace between the second and third toe on the dorsum of her left foot. NEUROLOGICAL: Cranial nerves II through XII grossly intact. Her speech is consistent with expressive aphasia. She also has some minimal left-sided weakness. PSYCH: Normal mood, normal affect. SKIN: She is erythematous in the face, there are significant erythematous rash to her back consistent with drug eruption. There are no plaques, papules, macules, or bulla. Results CBC & Chem 7: 05/27/19 18:01 05/27/19 18:01 Labs: Abnormal Lab Results - Last 24 Hours (Table) 05/27/19 05/27/19 05/27/19 Range/Units 18:01 18:01 19:50 RBC 3.61 L (3.80-5.40) m/uL Hct 33.3 L (34.0-46.0) % Plt Count 92 L (150-450) k/uL Lymphocytes # 0.3 L (1.0-4.8) k/uL Sodium 134 L (137-145) mmol/L Potassium 5.5 H (3.5-5.1) mmol/L BUN 43 H (7-17) mg/dL Creatinine 2.10 H (0.52-1.04) mg/dL Glucose 107 H (74-99) mg/dL AST 41 H (14-36) U/L Urine Appearance Cloudy H (Clear) Urine Protein Trace H (Negative) Urine WBC 11 H (0-5) /hpf Urine Mucus Rare H (None) /hpf Microbiology - Last 24 Hours (Table) 05/27/19 19:50 Urine Culture - Preliminary Urine,Catheterized Chest x-ray: report reviewed CT scan - abdomen: report reviewed Thrombosis Risk Factor Assmnt - DVT/VTE Prophylaxis DVT/VTE Prophylaxis: Mechanical Prophylaxis ordered - Choose All That Apply Each Risk Factor Represents 2 Points: Age 61-74 years Thrombosis Risk Factor Assessment Total Risk Factor Score: 2 Thrombosis Risk Factor Assessment Level: Low Risk Assessment and Plan (1) Acute renal failure Current Visit: Yes Status: Acute Code(s): N17.9 - ACUTE KIDNEY FAILURE, UNSPECIFIED SNOMED Code(s): 56852702 (2) Hydronephrosis Current Visit: Yes Status: Acute Code(s): N13.30 - UNSPECIFIED HYDRONEPHROSIS SNOMED Code(s): 31767924 (3) Parkinson disease Current Visit: Yes Status: Acute Code(s): G20 - PARKINSON'S DISEASE SNOMED Code(s): 34786617 (4) Debility Current Visit: Yes Status: Acute Code(s): R53.81 - OTHER MALAISE SNOMED Code(s): 57086054 (5) Essential (primary) hypertension Current Visit: Yes Status: Acute Code(s): I10 - ESSENTIAL (PRIMARY) HYPERTENSION SNOMED Code(s): 15309435 (6) Pure hypercholesterolemia Current Visit: Yes Status: Acute Code(s): E78.00 - PURE HYPERCHOLESTEROLEMIA, UNSPECIFIED SNOMED Code(s): 679086047 (7) SIRS (systemic inflammatory response syndrome) Current Visit: Yes Status: Acute Code(s): R65.10 - SIRS OF NON-INFECTIOUS ORIGIN W/O ACUTE ORGAN DYSFUNCTION SNOMED Code(s): 023752570 (8) Cellulitis, toe Current Visit: No Status: Acute Code(s): L03.039 - CELLULITIS OF UNSPECIFIED TOE SNOMED Code(s): 84025785 (9) History of cerebrovascular accident Current Visit: No Status: Acute Code(s): Z86.73 - PRSNL HX OF TIA (TIA), AND CEREB INFRC W/O RESID DEFICITS SNOMED Code(s): 755353851 (10) Drug rash Current Visit: Yes Status: Acute Code(s): L27.0 - GEN SKIN ERUPTION DUE TO DRUGS AND MEDS TAKEN INTERNALLY SNOMED Code(s): 94319514 Plan: Obtain an ultrasound evaluate her hydronephrosis bilaterally. Gently hydrate her with her acute renal failure. Discontinue her Bactrim and this point. Based on her rash and other issues, vancomycin seems inappropriate I'll switch her Rocephin this time until urology can see her.ID consulted as well. erpeat labs in am meds for pain she will be reevaluated in 24 hrs
[2019-05-28] MEDS ORDERED: hydrOXYzine PAMOATE 25 MG CAP PO PRN (12:21)
--- NOTE | 2019-05-28 12:33 | US ---
EXAMINATION TYPE: US kidneys/renal and bladder DATE OF EXAM: 05/28/2019 COMPARISON: Renal ultrasound June 22, 2017. CT abdomen and pelvis May 27, 2019 CLINICAL HISTORY: hydronephrosis. extreme abd pain EXAM MEASUREMENTS: Right Kidney: 9.4 x 5.5 x 5.8 cm Left Kidney: 7.4 x 5.1 x 5.4 cm Patient in pain and lack of ability to move or hold breath for better imaging Right Kidney: hydronephrosis seen, otherwise very limited study Left Kidney: hydronephrosis seen, small in size, otherwise very limited study Bladder: not distended Exam noted suboptimal per technologist due to patient's inability to hold breath and properly move fo r ideal imaging as well as patient's large body habitus. Right kidney shows persistent calyceal fulln ess correlating with last 2 studies. Bladder is poorly distended and thuS cannot be accurately evalua ina. Left kidney shows calyceal fullness mid to lower pole level similar to prior studies. CT shows n o hydroureter or obstructing calculi. 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 Correlate with old outside functional studies advised.
[2019-05-28 13:57] LABS: T4, Free (Free Thyroxine) 1.19 ng/dL (0.78-2.19)
[2019-05-28 15:01] LABS: Calcium 8.4 mg/dL (8.4-10.2); Total Bilirubin 0.3 mg/dL (0.2-1.3); Total Protein 5.4 g/dL (6.3-8.2)
[2019-05-28] MEDS: HYDROmorphone 0.5 MG/0.5 ML SYRINGE IVP PRN (15:22)
[2019-05-28] MEDS: PANTOPRAZOLE 40 MG TABLET PO SCH (17:37)
[2019-05-28] MEDS: DICLOFENAC SODIUM GEL 100 GM TUBE TOPICAL SCH ×2 (19:06→20:57)
[2019-05-28] MEDS: ALLOPURINOL 100 MG TAB PO SCH (20:56)
--- NOTE | 2019-05-28 21:12 | P.CONS ---
History of Present Illness - Reason for Consult Consult date: 05/28/19 - Chief Complaint abdominal pain - History of Present Illness 73 year old woman with history of CVA and persistent difficulty with expressive aphasia presents to ER complaining of abdominal pain which was worsening per the who acts as her historian. She does point to the Abdomen and complains of pain which seems to be of maximum intensity near the epigastrium. It is not related that she's had significant nausea or emesis, there is no hematemesis melena or hematochezia. does not believe that she's had since and diarrhea does have some chronic constipation issues. She does not routinely have complaints of abdominal pain. She recently did have difficulties with a urinary tract infection and with this she was given a course of trimethoprim sulfamethoxazole. She did not have any improvement, actually worsened with the increasing abdominal pain and development of the significant maculopapular rash that is starting to improve are ready. She has evidence of an ongoing urinary infection and she's had imaging studies reveal evidence of bilateral hydronephrosis without deepa obstruction being seen. With this the consultation was requested. Review of Systems Patient is able to relate most of the data HEENT:Denies headache or acute visual change. Denies sinus or mouth discomforts. Denies neck stiffness or pain. Denies significant oral cavity pain. Denies difficulty on swallowing. Lungs: Denies significant shortness of breath, cough, sputum production, or hemoptysis. Cardiovascular: Denies significant shortness of breath, chest pain, chest wall pain, orthopnea, dyspnea on exertion, syncope Gastrointestinal:Denies nausea, vomiting, diarrhea, constipation, hematemesis, melena, hematochezia. No no significant change of bowel habit noticed. Musculoskeletal: denies significant myalgias or arthralgias. No new joint swelling. Denies new back pain. Skin: New rash that is pruritic Neuro: No headache or seizures does have some generalized weakness in the persistent expressive aphasia. Psychiatric:Denies anxiety or depression. 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 No adult children. However they fostered 37 children. 2 pet dogs in the home. No international travel. No experience Smoking Status: Former smoker Past Alcohol Use History: None Reported Past Drug Use History: None Reported - Past Family History Father Family Medical History: No Reported History Medications and Allergies Home Medications and Allergies Comment(s): Current Medications Acetaminophen (Tylenol Tab) 650 mg PO Q6HR PRN PRN Reason: Mild Pain or Fever > 100.5 Last Admin: 05/28/19 20:56 Dose: 650 mg Documented by: Allopurinol (Zyloprim) 100 mg PO BID [facility] [place] Last Admin: 05/28/19 20:56 Dose: 100 mg Documented by: Carbidopa/Levodopa (Sinemet 25-100) 1 each PO QID [facility] [place] Last Admin: 05/28/19 20:56 Dose: 1 each Documented by: Carvedilol (Coreg) 6.25 mg PO BID-W/MEALS [facility] [place] Last Admin: 05/28/19 17:41 Dose: 6.25 mg Documented by: Clotrimazole (Lotrimin Cream) 1 applic TOPICAL BID [facility] [place] Last Admin: 05/28/19 20:56 Dose: 1 applic Documented by: Diclofenac Sodium (Voltaren Gel) 2 gm TOPICAL QID [facility] [place] Last Admin: 05/28/19 20:57 Dose: 2 gm Documented by: Hydromorphone HCl (Dilaudid) 0.5 mg IVP Q3HR PRN PRN Reason: Pain Last Admin: 05/28/19 15:22 Dose: 0.5 mg Documented by: Hydroxyzine Pamoate (Vistaril) 25 mg PO Q8HR PRN PRN Reason: Itching Last Admin: 05/28/19 20:56 Dose: 25 mg Documented by: Sodium Chloride (Saline 0.9%) 1,000 mls @ 20 mls/hr IV .Q24H [facility] [place] Last Admin: 05/28/19 20:57 Dose: 20 mls/hr Documented by: Ceftriaxone Sodium 1 gm/ (Sodium Chloride) 50 mls @ 100 mls/hr IVPB Q12HR [facility] [place] Last Admin: 05/28/19 17:36 Dose: 100 mls/hr Documented by: Levothyroxine Sodium (Synthroid) 150 mcg PO 0630 [facility] [place] Last Admin: 05/28/19 11:42 Dose: 150 mcg Documented by: Naloxone HCl (Narcan) 0.2 mg IV Q2M PRN PRN Reason: Opioid Reversal Ondansetron HCl (Zofran) 4 mg IVP Q8HR PRN PRN Reason: Nausea And Vomiting Pantoprazole Sodium (Protonix) 40 mg PO AC-BID [facility] [place] Last Admin: 05/28/19 17:37 Dose: 40 mg Documented by: Pramipexole Dihydrochloride (Mirapex) 1 mg PO DAILY [facility] [place] Pravastatin Sodium (Pravachol) 80 mg PO DAILY [facility] [place] Last Admin: 05/28/19 11:42 Dose: 80 mg Documented by: Silver Sulfadiazine (Silvadene Cream) 1 applic TOPICAL BID [facility] [place] Last Admin: 05/28/19 20:56 Dose: 1 applic Documented by: Triamcinolone Acetonide (Kenalog) 1 applic TOPICAL BID [facility] [place] Last Admin: 05/28/19 11:46 Dose: 1 applic Documented by: Home Medications Medication Instructions Recorded Confirmed Type Carbidopa/Levodopa [Parcopa 25-100 1 tab SL QID 09/07/14 05/27/19 History mg Odt] Carvedilol 6.25 mg PO BID 09/07/14 05/27/19 History Escitalopram Oxalate [Lexapro] 10 mg PO DAILY 09/07/14 05/27/19 History Omeprazole [PriLOSEC] 20 mg PO BID 09/07/14 05/27/19 History Pravastatin Sodium [Pravachol] 80 mg PO DAILY 09/07/14 05/27/19 History Triamterene/Hydrochlorothiazid 1 tab PO DAILY 09/07/14 05/27/19 History [Triamterene-Hctz 37.5-25 mg Tb] Verapamil HCl [Verapamil ER] 240 mg PO DAILY 09/07/14 05/27/19 History Allopurinol [Zyloprim] 100 mg PO BID 09/21/17 05/27/19 History Calcitriol [Rocaltrol] 0.25 mcg PO WESA 05/19/19 05/27/19 History Clotrimazole [Clotrimazole AF] 1 applic TOPICAL BID 7 Days #28 gm 05/19/19 05/27/19 Rx Ergocalciferol (Vitamin D2) 50,000 unit PO Q14D 05/19/19 05/27/19 History [Drisdol] Levothyroxine Sodium [Synthroid] 150 mcg PO DAILY 05/19/19 05/27/19 History Lisinopril [Zestril] 10 mg PO DAILY 05/19/19 05/27/19 History Pramipexole [Mirapex] 1 mg PO DAILY 05/19/19 05/27/19 History Aspirin EC [Ecotrin] 325 mg PO DAILY 05/27/19 05/27/19 History Fluocinonide 0.05% [Lidex 0.05% 1 applic TOPICAL BID 05/27/19 05/27/19 History cream] Hydrocortisone Oint 1 applic TOPICAL BID 05/27/19 05/27/19 History [Hydrocortisone 2.5% Oint] Ketoconazole [Ketoconazole 2%] 1 applic TOPICAL BID 05/27/19 05/27/19 History Sulfamethox-Tmp 800-160Mg [Bactrim 2 tab PO Q12HR 05/27/19 05/27/19 History DS 800-160 mg] Allergies Allergy/AdvReac Type Severity Reaction Status Date / Time amiodarone [From Cordarone] Allergy Anaphylaxis Verified 05/27/19 19:03 cyclobenzaprine Allergy Rash/Hives Verified 05/27/19 19:03 [From Flexeril] Physical Exam Vitals: Vital Signs Temp Pulse Pulse Resp BP BP Pulse Ox 05/28/19 17:25 98.8 F 95 20 89/51 98 05/28/19 07:02 98.3 F 101 H 17 105/62 95 05/27/19 22:57 98.6 F 97 22 125/69 95 05/27/19 21:26 99.8 F H 97 22 116/65 94 L Intake and Output 05/28/19 05/28/19 05/28/19 06:59 14:59 22:59 Intake Total 200 Balance 200 Intake: Oral 200 Other: Voiding Method Bedpan Bedpan Bedpan Diaper # Voids 1 T-max of 101.4 obese 73-year-old woman complains of abdominal pain HEENT: Anicteric conjunctiva are pink and moist nasal mucosa grossly intact without significant lesions, there is no thrush. Neck: The neck is supple without significant lymphadenopathy or thyromegaly. Lungs: Good bilateral air entry without significant crackles or wheezing. There is no significant bronchial sounds. There is no egophony or dullness. Heart: Regular rate and rhythm with an audible S1-S2, no S3 no S4. There is no significant murmur click or rub, PMI was nondisplaced. Abdomen: Positive bowel sounds soft Has evidence of tenderness through the epigastrium to the left lower quadrant. I can palpate no mass to was no guarding or rebound no palpable organomegaly patient does grimace and cry out in pain when the epigastrium is palpated. Extremities: The upper extremities have excellent pulses they are symmetric, no significant petechiae or telangiectasia. No splinter hemorrhages were noted. Lower extremities evidence of chronic bilateral lower extremity edema but no open ulceration is seen Neuro: Awake alert oriented to person place and time. There are no acute new gross focal sensory motor deficits. Skin patient has evidence of a fading maculopapular rash that is mildly pruritic but not open and not draining. Results CBC & Chem 7: 05/28/19 11:02 05/28/19 14:39 Labs: Abnormal Lab Results - Last 24 Hours (Table) 05/28/19 05/28/19 05/28/19 Range/Units 11:02 11:02 11:02 RBC 3.58 L (3.80-5.40) m/uL Hgb 11.2 L (11.4-16.0) gm/dL Plt Count 78 L (150-450) k/uL Lymphocytes # 0.4 L (1.0-4.8) k/uL Sodium 134 L (137-145) mmol/L Potassium 5.4 H (3.5-5.1) mmol/L Carbon Dioxide 19 L (22-30) mmol/L BUN 42 H (7-17) mg/dL Creatinine 1.99 H (0.52-1.04) mg/dL Glucose (74-99) mg/dL AST (14-36) U/L Total Protein (6.3-8.2) g/dL Albumin (3.5-5.0) g/dL TSH 0.427 L (0.465-4.680) mIU/L 05/28/19 Range/Units 14:39 RBC (3.80-5.40) m/uL Hgb (11.4-16.0) gm/dL Plt Count (150-450) k/uL Lymphocytes # (1.0-4.8) k/uL Sodium 133 L (137-145) mmol/L Potassium (3.5-5.1) mmol/L Carbon Dioxide 20 L (22-30) mmol/L BUN 43 H (7-17) mg/dL Creatinine 1.97 H (0.52-1.04) mg/dL Glucose 128 H (74-99) mg/dL AST 51 H (14-36) U/L Total Protein 5.4 L (6.3-8.2) g/dL Albumin 3.0 L (3.5-5.0) g/dL TSH (0.465-4.680) mIU/L Microbiology - Last 24 Hours (Table) 05/27/19 18:01 Blood Culture - Preliminary Blood No Growth after 24 hours 05/27/19 19:50 Urine Culture - Final Urine,Catheterized Laboratory Results WBC 3.9 k/uL (3.8-10.6) 05/28/19 11:02 RBC 3.58 m/uL (3.80-5.40) L 05/28/19 11:02 Hgb 11.2 gm/dL (11.4-16.0) L 05/28/19 11:02 Hct 35.0 % (34.0-46.0) 05/28/19 11:02 MCV 97.6 fL (80.0-100.0) D 05/28/19 11:02 MCH 31.2 pg (25.0-35.0) 05/28/19 11:02 MCHC 31.9 g/dL (31.0-37.0) 05/28/19 11:02 RDW 13.9 % (11.5-15.5) 05/28/19 11:02 Plt Count 78 k/uL (150-450) L 05/28/19 11:02 Neutrophils % 80 % 05/28/19 11:02 Lymphocytes % 10 % 05/28/19 11:02 Monocytes % 3 % 05/28/19 11:02 Eosinophils % 4 % 05/28/19 11:02 Basophils % 0 % 05/28/19 11:02 Neutrophils # 3.1 k/uL (1.3-7.7) 05/28/19 11:02 Lymphocytes # 0.4 k/uL (1.0-4.8) L 05/28/19 11:02 Monocytes # 0.1 k/uL (0-1.0) 05/28/19 11:02 Eosinophils # 0.2 k/uL (0-0.7) 05/28/19 11:02 Basophils # 0.0 k/uL (0-0.2) 05/28/19 11:02 Manual Slide Review Performed 05/27/19 18:01 Hypochromasia (manual) Present 05/27/19 18:01 Anisocytosis (manual) Present 05/27/19 18:01 PT 11.0 sec (9.0-12.0) 05/27/19 18:01 INR 1.0 (<1.2) 05/27/19 18:01 APTT 25.8 sec (22.0-30.0) 05/27/19 18:01 Sodium 133 mmol/L (137-145) L 05/28/19 14:39 Potassium 5.0 mmol/L (3.5-5.1) 05/28/19 14:39 Chloride 104 mmol/L (98-107) 05/28/19 14:39 Carbon Dioxide 20 mmol/L (22-30) L 05/28/19 14:39 Anion Gap 9 mmol/L 05/28/19 14:39 BUN 43 mg/dL (7-17) H 05/28/19 14:39 Creatinine 1.97 mg/dL (0.52-1.04) H 05/28/19 14:39 Est GFR (CKD-EPI)AfAm 29 (>60 ml/min/1.73 sqM) 05/28/19 14:39 Est GFR (CKD-EPI)NonAf 25 (>60 ml/min/1.73 sqM) 05/28/19 14:39 Glucose 128 mg/dL (74-99) H 05/28/19 14:39 Plasma Lactic Acid Donell 0.9 mmol/L (0.7-2.0) 05/28/19 14:39 Calcium 8.4 mg/dL (8.4-10.2) 05/28/19 14:39 Total Bilirubin 0.3 mg/dL (0.2-1.3) 05/28/19 14:39 AST 51 U/L (14-36) H 05/28/19 14:39 ALT 20 U/L (9-52) 05/28/19 14:39 Alkaline Phosphatase 60 U/L (38-126) 05/28/19 14:39 Troponin I <0.012 ng/mL (0.000-0.034) 05/27/19 18:01 Total Protein 5.4 g/dL (6.3-8.2) L 05/28/19 14:39 Albumin 3.0 g/dL (3.5-5.0) L 05/28/19 14:39 TSH 0.427 mIU/L (0.465-4.680) L 05/28/19 11:02 Free T4 1.19 ng/dL (0.78-2.19) 05/28/19 11:02 Urine Color Yellow 05/27/19 19:50 Urine Appearance Cloudy (Clear) H 05/27/19 19:50 Urine pH 5.5 (5.0-8.0) 05/27/19 19:50 Ur Specific Hancock 1.018 (1.001-1.035) 05/27/19 19:50 Urine Protein Trace (Negative) H 05/27/19 19:50 Urine Glucose (UA) Negative (Negative) 05/27/19 19:50 Urine Ketones Negative (Negative) 05/27/19 19:50 Urine Blood Negative (Negative) 05/27/19 19:50 Urine Nitrite Negative (Negative) 05/27/19 19:50 Urine Bilirubin Negative (Negative) 05/27/19 19:50 Urine Urobilinogen <2.0 mg/dL (<2.0) 05/27/19 19:50 Ur Leukocyte Esterase Negative (Negative) 05/27/19 19:50 Urine RBC 2 /hpf (0-5) 05/27/19 19:50 Urine WBC 11 /hpf (0-5) H 05/27/19 19:50 Ur Squamous Epith Cells <1 /hpf (0-4) 05/27/19 19:50 Urine Mucus Rare /hpf (None) H 05/27/19 19:50 Influenza Type A RNA Not Detected (Not Detectd) 05/27/19 20:52 Influenza Type B (PCR) Not Detected (Not Detectd) 05/27/19 20:52 Microbiology 05/27/19 18:01 Blood Blood Culture - Preliminary No Growth after 24 hours 05/27/19 19:50 Urine,Catheterized Urine Culture - Final Assessment and Plan (1) Acute renal failure Current Visit: Yes Status: Acute Code(s): N17.9 - ACUTE KIDNEY FAILURE, UNSPECIFIED SNOMED Code(s): 12755081 (2) Drug rash Current Visit: Yes Status: Acute Code(s): L27.0 - GEN SKIN ERUPTION DUE TO DRUGS AND MEDS TAKEN INTERNALLY SNOMED Code(s): 75231915 (3) UTI (lower urinary tract infection) Narrative/Plan: 73-year-old woman who has a history of prior stroke with some expressive aphasia presents to Hospital with increasing abdominal pain. She was in the outpatient setting with concern for urinary tract infection and was treated with a course of trimethoprim sulfamethoxazole. She now has increasing abdominal pain is developed evidence of generalized rash. The rash appears to be a classic drug eruption and the Bactrim has been discontinued. She now being treated with Vanco and cefepime till further culture data is available. She has had computed tomography scan of the abdomen as well as an ultrasound that shows evidence of bilateral hydronephrosis without evidence of significant etiology of this difficulty. Her pain control is somewhat better at this time. Chest x-ray is negative. Influenza testing was negative given her high-grade fever. At this time cultures are process which further help direct her course of antibiotic therapy. She may need urological evaluation given evidence of bilateral hydronephrosis of undetermined etiology. Current Visit: No Status: Acute Code(s): N39.0 - URINARY TRACT INFECTION, SITE NOT SPECIFIED SNOMED Code(s): 2194097 (4) Fever Current Visit: Yes Status: Acute Code(s): R50.9 - FEVER, UNSPECIFIED SNOM ED Code(s): 194751582
--- NOTE | 2019-05-28 21:16 | P.GSCN ---
History of Present Illness Consult date: 05/28/19 Reason for Consult: Hydronephrosis Requesting physician: Cameron Nelson History of present illness: The patient is a 73-year-old white female with expressive dysphasia due to a prior CVA. She was admitted with a one-week history of abdominal and hip pain. She has been noted to be febrile. She has a history of intermittent right flank pain and was evaluated by Dr. Sweeney in late 2003. An IVP on 11/21/2003 showed mode rate right hydronephrosis consistent with a partial ureteropelvic junction obstruction. The degree of hydronephrosis was felt to be mild and in view of the prompt function it was felt that further observation was reasonable as the patient was not symptomatic at that time. Repeat IVP on 05/20/2004 continued to show prompt function bilaterally with moderate right hydronephrosis. A renal ultrasound in June 2017 suggested mild right hydronephrosis and left parapelvic renal cysts. During this hospitalization, she has undergone both a computed tomography scan and ultrasound, suggesting moderate right hydronephrosis and mild left hydronephrosis versus parapelvic renal cysts. Her serum creatinine level today was 1.97, which appears to be her baseline dating back to 2013. 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, hypothyroidism, hypertension, hyperlipidemia, Parkinson's disease, degenerative arthritis, anxiety, depression History of Any Multi-Drug Resistant Organisms: None Reported Past Surgical History: Hysterectomy, Orthopedic Surgery Additional Past Surgical History / Comment(s): Hammer toe surgery, recent infection to toe Past Anesthesia/Blood Transfusion Reactions: No Reported Reaction Past Psychological History: Anxiety, Bipolar, Depression Smoking Status: Former smoker Past Alcohol Use History: None Reported Past Drug Use History: None Reported - Past Family History Father Family Medical History: No Reported History Medications and Allergies Home Medications Medication Instructions Recorded Confirmed Type Carbidopa/Levodopa [Parcopa 25-100 1 tab SL QID 09/07/14 05/27/19 History mg Odt] Carvedilol 6.25 mg PO BID 09/07/14 05/27/19 History Escitalopram Oxalate [Lexapro] 10 mg PO DAILY 09/07/14 05/27/19 History Omeprazole [PriLOSEC] 20 mg PO BID 09/07/14 05/27/19 History Pravastatin Sodium [Pravachol] 80 mg PO DAILY 09/07/14 05/27/19 History Triamterene/Hydrochlorothiazid 1 tab PO DAILY 09/07/14 05/27/19 History [Triamterene-Hctz 37.5-25 mg Tb] Verapamil HCl [Verapamil ER] 240 mg PO DAILY 09/07/14 05/27/19 History Allopurinol [Zyloprim] 100 mg PO BID 09/21/17 05/27/19 History Calcitriol [Rocaltrol] 0.25 mcg PO WESA 05/19/19 05/27/19 History Clotrimazole [Clotrimazole AF] 1 applic TOPICAL BID 7 Days #28 gm 05/19/19 05/27/19 Rx Ergocalciferol (Vitamin D2) 50,000 unit PO Q14D 05/19/19 05/27/19 History [Drisdol] Levothyroxine Sodium [Synthroid] 150 mcg PO DAILY 05/19/19 05/27/19 History Lisinopril [Zestril] 10 mg PO DAILY 05/19/19 05/27/19 History Pramipexole [Mirapex] 1 mg PO DAILY 05/19/19 05/27/19 History Aspirin EC [Ecotrin] 325 mg PO DAILY 05/27/19 05/27/19 History Fluocinonide 0.05% [Lidex 0.05% 1 applic TOPICAL BID 05/27/19 05/27/19 History cream] Hydrocortisone Oint 1 applic TOPICAL BID 05/27/19 05/27/19 History [Hydrocortisone 2.5% Oint] Ketoconazole [Ketoconazole 2%] 1 applic TOPICAL BID 05/27/19 05/27/19 History Sulfamethox-Tmp 800-160Mg [Bactrim 2 tab PO Q12HR 05/27/19 05/27/19 History DS 800-160 mg] Allergies Allergy/AdvReac Type Severity Reaction Status Date / Time amiodarone [From Cordarone] Allergy Anaphylaxis Verified 05/27/19 19:03 cyclobenzaprine Allergy Rash/Hives Verified 05/27/19 19:03 [From Flexeril] Surgical - Exam Vital Signs Temp Pulse Resp BP Pulse Ox 101.1 F H 106 H 24 138/74 87 L 05/27/19 17:01 05/27/19 17:01 05/27/19 17:01 05/27/19 17:01 05/27/19 17:01 - General well developed, well nourished, no distress - Respiratory normal respiratory effort - Abdomen Abdomen: soft, tender (Diffuse mild tenderness), no guarding, no rigid, no rebound, no distended - Psychiatric oriented to time, oriented to person, oriented to place, speech is normal, memory intact Results - Labs 05/28/19 11:02 05/28/19 14:39 Abnormal Lab Results - Last 24 Hours (Table) 05/27/19 05/28/19 05/28/19 Range/Units 19:50 11:02 11:02 RBC 3.58 L (3.80-5.40) m/uL Hgb 11.2 L (11.4-16.0) gm/dL Plt Count 78 L (150-450) k/uL Lymphocytes # 0.4 L (1.0-4.8) k/uL Sodium (137-145) mmol/L Potassium (3.5-5.1) mmol/L Carbon Dioxide (22-30) mmol/L BUN (7-17) mg/dL Creatinine (0.52-1.04) mg/dL Glucose (74-99) mg/dL AST (14-36) U/L Total Protein (6.3-8.2) g/dL Albumin (3.5-5.0) g/dL TSH 0.427 L (0.465-4.680) mIU/L Urine Appearance Cloudy H (Clear) Urine Protein Trace H (Negative) Urine WBC 11 H (0-5) /hpf Urine Mucus Rare H (None) /hpf 05/28/19 05/28/19 Range/Units 11:02 14:39 RBC (3.80-5.40) m/uL Hgb (11.4-16.0) gm/dL Plt Count (150-450) k/uL Lymphocytes # (1.0-4.8) k/uL Sodium 134 L 133 L (137-145) mmol/L Potassium 5.4 H (3.5-5.1) mmol/L Carbon Dioxide 19 L 20 L (22-30) mmol/L BUN 42 H 43 H (7-17) mg/dL Creatinine 1.99 H 1.97 H (0.52-1.04) mg/dL Glucose 128 H (74-99) mg/dL AST 51 H (14-36) U/L Total Protein 5.4 L (6.3-8.2) g/dL Albumin 3.0 L (3.5-5.0) g/dL TSH (0.465-4.680) mIU/L Urine Appearance (Clear) Urine Protein (Negative) Urine WBC (0-5) /hpf Urine Mucus (None) /hpf Microbiology - Last 24 Hours (Table) 05/27/19 19:50 Urine Culture - Final Urine,Catheterized Diabetes panel 05/28/19 05/28/19 Range/Units 11:02 14:39 Sodium 134 L 133 L (137-145) mmol/L Potassium 5.4 H 5.0 (3.5-5.1) mmol/L Chloride 104 104 (98-107) mmol/L Carbon Dioxide 19 L 20 L (22-30) mmol/L BUN 42 H 43 H (7-17) mg/dL Creatinine 1.99 H 1.97 H (0.52-1.04) mg/dL Glucose 93 128 H (74-99) mg/dL Calcium 8.6 8.4 (8.4-10.2) mg/dL AST 51 H (14-36) U/L ALT 20 (9-52) U/L Alkaline Phosphatase 60 (38-126) U/L Total Protein 5.4 L (6.3-8.2) g/dL Albumin 3.0 L (3.5-5.0) g/dL Thyroid panel 05/28/19 Range/Units 11:02 TSH 0.427 L (0.465-4.680) mIU/L Calcium panel 05/28/19 05/28/19 Range/Units 11:02 14:39 Calcium 8.6 8.4 (8.4-10.2) mg/dL Albumin 3.0 L (3.5-5.0) g/dL Pituitary panel 05/28/19 05/28/19 05/28/19 Range/Units 11:02 11:02 14:39 Sodium 134 L 133 L (137-145) mmol/L Potassium 5.4 H 5.0 (3.5-5.1) mmol/L Chloride 104 104 (98-107) mmol/L Carbon Dioxide 19 L 20 L (22-30) mmol/L BUN 42 H 43 H (7-17) mg/dL Creatinine 1.99 H 1.97 H (0.52-1.04) mg/dL Glucose 93 128 H (74-99) mg/dL Calcium 8.6 8.4 (8.4-10.2) mg/dL TSH 0.427 L (0.465-4.680) mIU/L Adrenal panel 05/28/19 05/28/19 Range/Units 11:02 14:39 Sodium 134 L 133 L (137-145) mmol/L Potassium 5.4 H 5.0 (3.5-5.1) mmol/L Chloride 104 104 (98-107) mmol/L Carbon Dioxide 19 L 20 L (22-30) mmol/L BUN 42 H 43 H (7-17) mg/dL Creatinine 1.99 H 1.97 H (0.52-1.04) mg/dL Glucose 93 128 H (74-99) mg/dL Calcium 8.6 8.4 (8.4-10.2) mg/dL Total Bilirubin 0.3 (0.2-1.3) mg/dL AST 51 H (14-36) U/L ALT 20 (9-52) U/L Alkaline Phosphatase 60 (38-126) U/L Total Protein 5.4 L (6.3-8.2) g/dL Albumin 3.0 L (3.5-5.0) g/dL - Imaging CT scan - abdomen: report reviewed, image reviewed US - kidney/bladder: report reviewed, image reviewed Assessment and Plan (1) Hydronephrosis Current Visit: Yes Status: Acute Code(s): N13.30 - UNSPECIFIED HYDRONEPHROSIS SNOMED Code(s): 55918755 Plan: The patient has chronic right hydronephrosis, 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 The left kidney shows evidence of either mild hydronephrosis and/or parapelvic renal cysts. I do not believe that these findings are causing her current symptomatology, and as stated her renal function has not deteriorated over the past several years. Further evaluation could be performed via cystoscopy with bilateral retrograde pyelograms, though I'm unsure she would benefit from this. I will make Dr. Sweeney aware of her admission. Time with Patient: Greater than 30
[2019-05-28] MEDS ORDERED: SODIUM CHLORIDE 0.9% 500 ML 500 ML IV ONE (23:20)
[2019-05-29] MEDS: ACETAMINOPHEN TAB 325 MG TAB PO PRN (06:15)
[2019-05-29] MEDS: CARVEDILOL 6.25 MG TAB PO SCH ×2 (06:15→18:27)
[2019-05-29] MEDS: LEVOTHYROXINE 75 MCG TAB PO SCH (06:16)
[2019-05-29] MEDS: PANTOPRAZOLE 40 MG TABLET PO SCH ×2 (06:16→18:27)
[2019-05-29 07:46] LABS: Calcium 8.4 mg/dL (8.4-10.2); Magnesium 1.6 mg/dL (1.6-2.3)
[2019-05-29 07:56] LABS: Potassium 6.2 mmol/L (3.5-5.1)
[2019-05-29 07:59] LABS: Basophils % (A) 0 %; Eosinophils # (A) 0.2 k/uL (0-0.7); Eosinophils % (A) 4 %; HCT 33.3 % (34.0-46.0); HGB 11.1 gm/dL (11.4-16.0); Lymphocytes # (A) 0.4 k/uL (1.0-4.8); Lymphocytes % (A) 9 %; MCH 31.5 pg (25.0-35.0); MCHC 33.2 g/dL (31.0-37.0); MCV 94.7 fL (80.0-100.0); Mean Platelet Volume 9.2; Monocytes # (A) 0.1 k/uL (0-1.0); Monocytes % (A) 2 %; Neutrophils # (A) 3.4 k/uL (1.3-7.7); Neutrophils % (A) 82 %; RBC 3.52 m/uL (3.80-5.40); RDW 14.6 % (11.5-15.5); WBC 4.1 k/uL (3.8-10.6)
[2019-05-29 08:01] LABS: Platelet Count 66 k/uL (150-450)
[2019-05-29 09:30] LABS: Vancomycin,Random 16.9 ug/mL
[2019-05-29] MEDS: ALLOPURINOL 100 MG TAB PO SCH ×2 (09:45→21:06)
[2019-05-29] MEDS: CARBIDOPA-LEVODOPA 25-100 MG 1 EACH TAB PO SCH ×4 (09:45→21:06)
[2019-05-29] MEDS: PRAVASTATIN SODIUM 80 MG TAB PO SCH (09:45)
[2019-05-29] MEDS: PRAMIPEXOLE 1 MG TAB PO SCH (09:45)
[2019-05-29] MEDS: DICLOFENAC SODIUM GEL 100 GM TUBE TOPICAL SCH ×4 (09:46→21:06)
[2019-05-29] MEDS: HYDROmorphone 0.5 MG/0.5 ML SYRINGE IVP PRN ×2 (11:51→15:47)
[2019-05-29 14:49] LABS: Basophils % (A) 0 %; Eosinophils # (A) 0.2 k/uL (0-0.7); Eosinophils % (A) 5 %; HCT 31.9 % (34.0-46.0); HGB 10.3 gm/dL (11.4-16.0); Lymphocytes # (A) 0.6 k/uL (1.0-4.8); Lymphocytes % (A) 13 %; MCH 32.1 pg (25.0-35.0); MCHC 32.4 g/dL (31.0-37.0); MCV 98.8 fL (80.0-100.0); Mean Platelet Volume 7.5; Monocytes # (A) 0.1 k/uL (0-1.0); Monocytes % (A) 2 %; Neutrophils # (A) 3.3 k/uL (1.3-7.7); Neutrophils % (A) 77 %; RBC 3.23 m/uL (3.80-5.40); RDW 13.9 % (11.5-15.5); WBC 4.3 k/uL (3.8-10.6)
[2019-05-29 14:51] LABS: Platelet Count 58 k/uL (150-450)
[2019-05-29 14:58] LABS: Amylase 36 U/L (30-110); Lipase 58 U/L (23-300)
[2019-05-29] MEDS ORDERED: SODIUM CHLORIDE 0.9% 500 ML 500 ML IV ONE (15:10)
[2019-05-29] MEDS: TRIAMCINOLONE ACET 0.1% OINTMENT 15 GM TUBE TOPICAL SCH (15:32)
[2019-05-29] MEDS: CLOTRIMAZOLE 1% CREAM 15 GM TUBE TOPICAL SCH ×2 (15:32→21:07)
--- NOTE | 2019-05-29 15:38 | P.GSCN ---
<Kendra Roberts - Last Filed: 05/29/19 15:29> History of Present Illness Consult date: 05/29/19 Reason for Consult: possible perforated diverticulitis Requesting physician: Violette Muñiz History of present illness: CHIEF COMPLAINT: Possible perforated colon HISTORY OF PRESENT ILLNESS: 73 year old female with a history of chronic hydronephrosis and CVA who presented to the hospital secondary to abdominal pain, nausea, vomiting, and rash. General surgery was consulted for possible perforated diverticulum. Patient examined this afternoon at the bedside. Patient reports she began having abdominal pain on Wednesday. When asked patient to point to the pain, she points to umbilicus. Last bowel movement was on Wednesday per patient. She denies nausea or vomiting since admission. Per EMR, patient ate 100% of her lunch. Patient reports last colonoscopy was many years ago but to her recollection it was normal. Denies prior EGD. She takes 325mg ASA daily. Denies additional use of anticoagulation or NSAIDs. Denies hematemesis, hematochezia, or melena. BP this morning 74/41. Patient has IV fluids infusing at 125cc/hr. No documented urine output. Temperature this AM 100.6. WBC 4.3. Hemoglobin 10.3. Creatinine elevated at 2.90. 1.97 yesterday. Abdominal xray completed on admission negative for acute process. CT abdomen and pelvis negative for free air. No dilated small bowel or colon. No distended fluid filled loops of bowel are evident. Appendix appears normal. No inflammatory changes are adjacent to appendix. Diverticulosis without evidence of diverticulitis. PAST MEDICAL HISTORY: See list. PAST SURGICAL HISTORY: See list. SOCIAL HISTORY: No illicit drug use. REVIEW OF SYSTEMS: CONSTITUTIONAL: Reports fever HEENT: Denies blurred vision, vision changes, or eye pain. Denies hemoptysis CARDIOVASCULAR: Denies chest pain or pressure. RESPIRATORY: No shortness of breath. GASTROINTESTINAL: Refer to HPI for pertinent findings HEMATOLOGIC: Denies bleeding disorders. GENITOURINARY: Denies any blood in urine. SKIN: Reports rash. PHYSICAL EXAM: VITAL SIGNS: Reviewed. GENERAL: Well-developed in no acute distress but appears uncomfortable. HEENT: No sclera icterus. Extraocular movements grossly intact. Moist buccal mucosa. Head is atraumatic, normocephalic. ABDOMEN: Obese. Soft. Nondistended. Tenderness with palpation near umbilicus. No signs of peritonitis. Positive bowel sounds. NEUROLOGIC: Awake and alert. Cranial nerves II through XII grossly intact. SKIN: Generalized maculopapular rash ASSESSMENT: 1. Abdominal pain 2. Fever with hypotension, possible sepsis 3. Recent urinary tract infection PLAN: 1. 500cc bolus x 1. Further management of hypotension and acute renal failure per primary service 2. Antibiotics per infectious disease 3. Continue Protonix 4. Further recommendations pending evaluation by Dr. Oleary this afternoon Nurse practitioner note has been reviewed by physician. Signing provider agrees with the documented findings, assessment, and plan of care. 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, hypothyroidism, hypertension, hyperlipidemia, Parkinson's disease, degenerative arthritis, anxiety, depression History of Any Multi-Drug Resistant Organisms: None Reported Past Surgical History: Hysterectomy, Orthopedic Surgery Additional Past Surgical History / Comment(s): Hammer toe surgery, recent infe ction to toe Past Anesthesia/Blood Transfusion Reactions: No Reported Reaction Past Psychological History: Anxiety, Bipolar, Depression Smoking Status: Former smoker Past Alcohol Use History: None Reported Past Drug Use History: None Reported - Past Family History Father Family Medical History: No Reported History Medications and Allergies Home Medications Medication Instructions Recorded Confirmed Type Carbidopa/Levodopa [Parcopa 25-100 1 tab SL QID 09/07/14 05/27/19 History mg Odt] Carvedilol 6.25 mg PO BID 09/07/14 05/27/19 History Escitalopram Oxalate [Lexapro] 10 mg PO DAILY 09/07/14 05/27/19 History Omeprazole [PriLOSEC] 20 mg PO BID 09/07/14 05/27/19 History Pravastatin Sodium [Pravachol] 80 mg PO DAILY 09/07/14 05/27/19 History Triamterene/Hydrochlorothiazid 1 tab PO DAILY 09/07/14 05/27/19 History [Triamterene-Hctz 37.5-25 mg Tb] Verapamil HCl [Verapamil ER] 240 mg PO DAILY 09/07/14 05/27/19 History Allopurinol [Zyloprim] 100 mg PO BID 09/21/17 05/27/19 History Calcitriol [Rocaltrol] 0.25 mcg PO WESA 05/19/19 05/27/19 History Clotrimazole [Clotrimazole AF] 1 applic TOPICAL BID 7 Days #28 gm 05/19/19 05/27/19 Rx Ergocalciferol (Vitamin D2) 50,000 unit PO Q14D 05/19/19 05/27/19 History [Drisdol] Levothyroxine Sodium [Synthroid] 150 mcg PO DAILY 05/19/19 05/27/19 History Lisinopril [Zestril] 10 mg PO DAILY 05/19/19 05/27/19 History Pramipexole [Mirapex] 1 mg PO DAILY 05/19/19 05/27/19 History Aspirin EC [Ecotrin] 325 mg PO DAILY 05/27/19 05/27/19 History Fluocinonide 0.05% [Lidex 0.05% 1 applic TOPICAL BID 05/27/19 05/27/19 History cream] Hydrocortisone Oint 1 applic TOPICAL BID 05/27/19 05/27/19 History [Hydrocortisone 2.5% Oint] Ketoconazole [Ketoconazole 2%] 1 applic TOPICAL BID 05/27/19 05/27/19 History Sulfamethox-Tmp 800-160Mg [Bactrim 2 tab PO Q12HR 05/27/19 05/27/19 History DS 800-160 mg] Allergies Allergy/AdvReac Type Severity Reaction Status Date / Time amiodarone [From Cordarone] Allergy Anaphylaxis Verified 05/27/19 19:03 cyclobenzaprine Allergy Rash/Hives Verified 05/27/19 19:03 [From Flexeril] Surgical - Exam Vital Signs Temp Pulse Resp BP Pulse Ox 101.1 F H 106 H 24 138/74 87 L 05/27/19 17:01 05/27/19 17:01 05/27/19 17:01 05/27/19 17:01 05/27/19 17:01 Results - Labs 05/29/19 14:26 05/29/19 11:57 Abnormal Lab Results - Last 24 Hours (Table) 05/28/19 05/29/19 05/29/19 Range/Units 14:39 06:37 06:37 RBC 3.52 L (3.80-5.40) m/uL Hgb 11.1 L (11.4-16.0) gm/dL Hct 33.3 L (34.0-46.0) % Plt Count 66 L (150-450) k/uL Lymphocytes # 0.4 L (1.0-4.8) k/uL Sodium 133 L 135 L (137-145) mmol/L Potassium 6.2 H* (3.5-5.1) mmol/L Carbon Dioxide 20 L 19 L (22-30) mmol/L BUN 43 H 52 H (7-17) mg/dL Creatinine 1.97 H 2.90 H (0.52-1.04) mg/dL Glucose 128 H (74-99) mg/dL AST 51 H (14-36) U/L Total Protein 5.4 L (6.3-8.2) g/dL Albumin 3.0 L (3.5-5.0) g/dL 05/29/19 Range/Units 11:57 RBC (3.80-5.40) m/uL Hgb (11.4-16.0) gm/dL Hct (34.0-46.0) % Plt Count (150-450) k/uL Lymphocytes # (1.0-4.8) k/uL Sodium (137-145) mmol/L Potassium 5.3 H (3.5-5.1) mmol/L Carbon Dioxide (22-30) mmol/L BUN (7-17) mg/dL Creatinine (0.52-1.04) mg/dL Glucose (74-99) mg/dL AST (14-36) U/L Total Protein (6.3-8.2) g/dL Albumin (3.5-5.0) g/dL Microbiology - Last 24 Hours (Table) 05/27/19 18:01 Blood Culture - Preliminary Blood No Growth after 24 hours 05/27/19 19:50 Urine Culture - Final Urine,Catheterized Diabetes panel 05/28/19 05/29/19 05/29/19 Range/Units 14:39 06:37 11:57 Sodium 133 L 135 L (137-145) mmol/L Potassium 5.0 6.2 H* 5.3 H (3.5-5.1) mmol/L Chloride 104 107 (98-107) mmol/L Carbon Dioxide 20 L 19 L (22-30) mmol/L BUN 43 H 52 H (7-17) mg/dL Creatinine 1.97 H 2.90 H (0.52-1.04) mg/dL Glucose 128 H 89 (74-99) mg/dL Calcium 8.4 8.4 (8.4-10.2) mg/dL AST 51 H (14-36) U/L ALT 20 (9-52) U/L Alkaline Phosphatase 60 (38-126) U/L Total Protein 5.4 L (6.3-8.2) g/dL Albumin 3.0 L (3.5-5.0) g/dL Calcium panel 05/28/19 05/29/19 Range/Units 14:39 06:37 Calcium 8.4 8.4 (8.4-10.2) mg/dL Albumin 3.0 L (3.5-5.0) g/dL Pituitary panel 05/28/19 05/29/19 05/29/19 Range/Units 14:39 06:37 11:57 Sodium 133 L 135 L (137-145) mmol/L Potassium 5.0 6.2 H* 5.3 H (3.5-5.1) mmol/L Chloride 104 107 (98-107) mmol/L Carbon Dioxide 20 L 19 L (22-30) mmol/L BUN 43 H 52 H (7-17) mg/dL Creatinine 1.97 H 2.90 H (0.52-1.04) mg/dL Glucose 128 H 89 (74-99) mg/dL Calcium 8.4 8.4 (8.4-10.2) mg/dL Adrenal panel 05/28/19 05/29/19 05/29/19 Range/Units 14:39 06:37 11:57 Sodium 133 L 135 L (137-145) mmol/L Potassium 5.0 6.2 H* 5.3 H (3.5-5.1) mmol/L Chloride 104 107 (98-107) mmol/L Carbon Dioxide 20 L 19 L (22-30) mmol/L BUN 43 H 52 H (7-17) mg/dL Creatinine 1.97 H 2.90 H (0.52-1.04) mg/dL Glucose 128 H 89 (74-99) mg/dL Calcium 8.4 8.4 (8.4-10.2) mg/dL Total Bilirubin 0.3 (0.2-1.3) mg/dL AST 51 H (14-36) U/L ALT 20 (9-52) U/L Alkaline Phosphatase 60 (38-126) U/L Total Protein 5.4 L (6.3-8.2) g/dL Albumin 3.0 L (3.5-5.0) g/dL <[id number] - Last Filed: 05/29/19 15:51> History of Present Illness History of present illness: As above. Patient with complaints of abdominal pain and documented fevers. Pain has improved somewhat. Pain was present when the CAT scan was performed less than 48 hours ago. CAT scan reviewed and shows no inflammatory changes or evidence of perforation. Patient apparently has been eating. Repeat labs show a normal white blood cell count and a normal lactic acid. We will order abdominal films at this time. Will follow with you. Surgical - Exam Vital Signs Temp Pulse Resp BP Pulse Ox 101.1 F H 106 H 24 138/74 87 L 05/27/19 17:01 05/27/19 17:01 05/27/19 17:01 05/27/19 17:01 05/27/19 17:01 Results - Labs 05/29/19 14:26 05/29/19 11:57 Abnormal Lab Results - Last 24 Hours (Table) 05/29/19 05/29/19 05/29/19 Range/Units 06:37 06:37 11:57 RBC 3.52 L (3.80-5.40) m/uL Hgb 11.1 L (11.4-16.0) gm/dL Hct 33.3 L (34.0-46.0) % Plt Count 66 L (150-450) k/uL Lymphocytes # 0.4 L (1.0-4.8) k/uL Sodium 135 L (137-145) mmol/L Potassium 6.2 H* 5.3 H (3.5-5.1) mmol/L Carbon Dioxide 19 L (22-30) mmol/L BUN 52 H (7-17) mg/dL Creatinine 2.90 H (0.52-1.04) mg/dL 05/29/19 Range/Units 14:26 RBC 3.23 L (3.80-5.40) m/uL Hgb 10.3 L (11.4-16.0) gm/dL Hct 31.9 L (34.0-46.0) % Plt Count 58 L (150-450) k/uL Lymphocytes # 0.6 L (1.0-4.8) k/uL Sodium (137-145) mmol/L Potassium (3.5-5.1) mmol/L Carbon Dioxide (22-30) mmol/L BUN (7-17) mg/dL Creatinine (0.52-1.04) mg/dL Microbiology - Last 24 Hours (Table) 05/28/19 13:00 Blood Culture - Preliminary Blood No Growth after 24 hours 05/27/19 18:01 Blood Culture - Preliminary Blood No Growth after 24 hours 05/27/19 19:50 Urine Culture - Final Urine,Catheterized Diabetes panel 05/29/19 05/29/19 Range/Units 06:37 11:57 Sodium 135 L (137-145) mmol/L Potassium 6.2 H* 5.3 H (3.5-5.1) mmol/L Chloride 107 (98-107) mmol/L Carbon Dioxide 19 L (22-30) mmol/L BUN 52 H (7-17) mg/dL Creatinine 2.90 H (0.52-1.04) mg/dL Glucose 89 (74-99) mg/dL Calcium 8.4 (8.4-10.2) mg/dL Calcium panel 05/29/19 Range/Units 06:37 Calcium 8.4 (8.4-10.2) mg/dL Pituitary panel 05/29/19 05/29/19 Range/Units 06:37 11:57 Sodium 135 L (137-145) mmol/L Potassium 6.2 H* 5.3 H (3.5-5.1) mmol/L Chloride 107 (98-107) mmol/L Carbon Dioxide 19 L (22-30) mmol/L BUN 52 H (7-17) mg/dL Creatinine 2.90 H (0.52-1.04) mg/dL Glucose 89 (74-99) mg/dL Calcium 8.4 (8.4-10.2) mg/dL Adrenal panel 05/29/19 05/29/19 Range/Units 06:37 11:57 Sodium 135 L (137-145) mmol/L Potassium 6.2 H* 5.3 H (3.5-5.1) mmol/L Chloride 107 (98-107) mmol/L Carbon Dioxide 19 L (22-30) mmol/L BUN 52 H (7-17) mg/dL Creatinine 2.90 H (0.52-1.04) mg/dL Glucose 89 (74-99) mg/dL Calcium 8.4 (8.4-10.2) mg/dL
[2019-05-29] MEDS: SODIUM CHLORIDE 0.9% 1,000 ML IV SCH ×2 (15:49→21:06)
[2019-05-29] MEDS ORDERED: PIPERACILLIN-TAZOBACTAM 3.375 GM in SODIUM CHLORIDE 0.9% 100 ML IVPB SCH (16:00)
--- NOTE | 2019-05-29 17:34 | P.PN ---
Subjective Progress Note Date: 05/29/19 This is a 73-year-old white female well-known to me. 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 So her history is difficult to get. Per the ER doctor and one unable to get from Leena herself, she been having 1 week history of not feeling well. She indicates some epigastric area as the source of her abdominal pain. Said that's been going on she hasn't had any symptoms other than a fever, and a rash started 1 day ago. She's been on Bactrim for an unspecified amount of time.. I try to call her at this point but he was not home. Leena also indicates that she is developed a rash decided started yesterday. This is to her thoracic and lumbar back. She indicates it does not really itch. I really was not able to elicit much more history from Leena her self. But certainly she is rarely ill and usually comes in the office immediately for upper respiratory tract infections other illnesses. Does have a history of hypertension and depression along with Parkinson's. She usually ambulates with a walker at home, but needs a wheelchair for any significant distances. She is obviously not herself attain appears quite distress. Her MAXIMUM TEMPERATURE is currently 101.4F 05/29/2019 T-max 100.8, normal WBC. No bowel movement since Wednesday per patient. Early this morning patient developed hypotension, blood pressure into the 70s, received fluid bolus with IV fluids increased. Systolic blood pressure currently up into the high 80s. Renal function worsening, creatinine 2.9. Staff reports no urine output this morning, presented with wet pull up this afternoon. Potassium initially reported as 6.2, repeated-5.3. 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 Maintained on IV antibiotics of Rocephin. Silvadene to foot. Upon Dr. Santiago's abdominal exam, patient can barely tolerate light touch-refer to assessment below. Urgent surgery consult initiated. Objective - Vital Signs Vital signs: Vital Signs Temp 98.1 F 05/29/19 12:00 Pulse 85 05/29/19 12:00 Resp 16 05/29/19 12:00 BP 88/50 05/29/19 12:00 Pulse Ox 95 05/29/19 12:00 Intake & Output 05/28/19 05/29/19 05/29/19 18:59 06:59 18:59 Intake Total 200 360 Output Total 250 0 Balance 200 -250 360 Weight 124.5 kg Intake: Oral 200 360 Output: Urine 250 0 Other: Voiding Method Bedpan Bedpan Diaper Diaper # Voids 1 # Bowel Movements 0 - Exam GENERAL: Morbidly obese white female appears to be in pain ,perspiring. Shaking head"yes to pain." HEAD: Atraumatic, normocephalic. Face reddened. ENT:nares patent, oropharynx clear without exudates. Moist mucous membranes. NECK: Normal range of motion, supple without lymphadenopathy or JVD, no thyromegaly LUNGS: Breath sounds coarse to auscultation bilaterally and equal. No wheezes rales or rhonchi. HEART: Regular rate and rhythm without murmurs, rubs or gallops.S1S2 Normal ABDOMEN: Soft, normoactive bowel sounds. ? guarding, no rebound. No masses appreciated. Tender ,warm, rigid to minimal palpation in left of midepigastrium. EXTREMITIES: Normal range of motion, no pitting or edema. No clubbing or cyanosis. There is some erythema to the inner webspace between the second and third toe on the dorsum of her left foot. NEUROLOGICAL: Cranial nerves II through XII grossly intact. Her speech is consistent with expressive aphasia. She also has some minimal left-sided weakness. PSYCH: Normal mood, normal affect. SKIN: She is erythematous in the face, there are significant erythematous rash to her back consistent with drug eruption. There are no plaques, papules, macules, or bulla. Left foot with dry flaky skin, cracks, between first and second and third toes, reddened on the lateral side of foot, no drainage. Silvadene to affected foot. Microbiology 05/28/19 14:39 Blood Blood Culture - Preliminary No Growth after 24 hours 05/28/19 13:00 Blood Blood Culture - Preliminary No Growth after 24 hours 05/27/19 18:01 Blood Blood Culture - Preliminary No Growth after 24 hours 05/27/19 19:50 Urine,Catheterized Urine Culture - Final - Labs CBC & Chem 7: 05/29/19 14:26 05/29/19 11:57 Labs: Abnormal Lab Results - Last 24 Hours (Table) 05/29/19 05/29/19 05/29/19 Range/Units 06:37 06:37 11:57 RBC 3.52 L (3.80-5.40) m/uL Hgb 11.1 L (11.4-16.0) gm/dL Hct 33.3 L (34.0-46.0) % Plt Count 66 L (150-450) k/uL Lymphocytes # 0.4 L (1.0-4.8) k/uL Sodium 135 L (137-145) mmol/L Potassium 6.2 H* 5.3 H (3.5-5.1) mmol/L Carbon Dioxide 19 L (22-30) mmol/L BUN 52 H (7-17) mg/dL Creatinine 2.90 H (0.52-1.04) mg/dL 05/29/19 Range/Units 14:26 RBC 3.23 L (3.80-5.40) m/uL Hgb 10.3 L (11.4-16.0) gm/dL Hct 31.9 L (34.0-46.0) % Plt Count 58 L (150-450) k/uL Lymphocytes # 0.6 L (1.0-4.8) k/uL Sodium (137-145) mmol/L Potassium (3.5-5.1) mmol/L Carbon Dioxide (22-30) mmol/L BUN (7-17) mg/dL Creatinine (0.52-1.04) mg/dL Microbiology - Last 24 Hours (Table) 05/28/19 13:00 Blood Culture - Preliminary Blood No Growth after 24 hours 05/27/19 18:01 Blood Culture - Preliminary Blood No Growth after 24 hours 05/27/19 19:50 Urine Culture - Final Urine,Catheterized Assessment and Plan Assessment: - -Abdominal pain, etiology unclear ruling out SBO, perforated diverticulum, ischemic bowel -Sepsis secondary to -Hypotension secondary to the above (1) Acute renal failure Current Visit: Yes Status: Acute Code(s): N17.9 - ACUTE KIDNEY FAILURE, UNSPECIFIED SNOMED Code(s): 80975303 (2) Hydronephrosis Current Visit: Yes Status: Acute Code(s): N13.30 - UNSPECIFIED HYDRONEPHROSIS SNOMED Code(s): 23080693 (3) Parkinson disease Current Visit: Yes Status: Acute Code(s): G20 - PARKINSON'S DISEASE SNOMED Code(s): 21022202 (4) Debility Current Visit: Yes Status: Acute Code(s): R53.81 - OTHER MALAISE SNOMED Code(s): 01190031 (5) Essential (primary) hypertension Current Visit: Yes Status: Acute Code(s): I10 - ESSENTIAL (PRIMARY) HYPERTENSION SNOMED Code(s): 49906146 (6) Pure hypercholesterolemia Current Visit: Yes Status: Acute Code(s): E78.00 - PURE HYPERCHOLESTEROLEMIA, UNSPECIFIED SNOMED Code(s): 212070391 (7) SIRS (systemic inflammatory response syndrome) Current Visit: Yes Status: Acute Code(s): R65.10 - SIRS OF NON-INFECTIOUS ORIGIN W/O ACUTE ORGAN DYSFUNCTION SNOMED Code(s): 225188369 (8) Cellulitis, toe Current Visit: No Status: Acute Code(s): L03.039 - CELLULITIS OF UNSPECIFIED TOE SNOMED Code(s): 28680611 (9) History of cerebrovascular accident Current Visit: No Status: Acute Code(s): Z86.73 - PRSNL HX OF TIA (TIA), AND CEREB INFRC W/O RESID DEFICITS SNOMED Code(s): 025012198 (10) Drug rash Current Visit: Yes Status: Acute Code(s): L27.0 - GEN SKIN ERUPTION DUE TO DRUGS AND MEDS TAKEN INTERNALLY SNOMED Code(s): 65611322 Plan: Continue on current medication regime ,PPI,monitoring and symptomatic treatment. IV fluids increased , plus fluid bolus . Lactic acid, repeat WBC, amylase, lipase ordered. Contacted radiology for additional review of abdomen/pelvis CT, colon focus, addressing potential diverticular disease. Surgery consulted, notified. Discussed with infectious disease, potential adjustment in antibiotics, Zosyn added to med regime. Urology recommendations noted and appreciated; discussed with staff to update urology regarding no urine output this morning, worsening renal function,pain. Close monitoring of re nal function, electrolytes with repeat labs ordered for a.m. nephrology consulted. Follow-up Abdominal x-ray ordered. prognosis guarded and multiple complex medical issues. The impression and plan of care has been dictated as directed. Dr.: I performed a history and examination of this patient, discussed the same with the dictator. I agree with the dictator's note ,documented as a scribe. Any additional findings or plans will be noted.
[2019-05-29] MEDS: PIPERACILLIN-TAZOBACTAM 3.375 GM in SODIUM CHLORIDE 0.9% 100 ML IVPB SCH (18:28)
[2019-05-29 22:03] LABS: Appearance,Urine Turbid (Clear); Bacteria,Urine Few /hpf; Bilirubin,Urine Negative (Negative); Blood,Urine Negative (Negative); Color,Urine Dark Yellow; Glucose,Urine (UA) Negative (Negative); Ketones,Urine Negative (Negative); Leukocyte Esterase,Urine Negative (Negative); Mucus,Urine Rare /hpf; Nitrite,Urine Negative (Negative); Protein,Urine 1+ (Negative); Specific Gravity,Urine 1.023 (1.001-1.035); Squamous Epithelial Cell,Urine 1 /hpf (0-4); Urobilinogen,Urine <2.0 mg/dL (<2.0)
--- NOTE | 2019-05-29 22:06 | P.PN ---
Subjective Progress Note Date: 05/29/19 73 year old woman with history of CVA and persistent difficulty with expressive aphasia presents to ER complaining of abdominal pain which was worsening per the who acts as her historian. She does point to the Abdomen and complains of pain which seems to be of maximum intensity near the epigastrium. It is not related that she's had significant nausea or emesis, there is no hematemesis melena or hematochezia. does not believe that she's had since and diarrhea does have some chronic constipation issues. She does not routinely have complaints of abdominal pain. She recently did have difficulties with a urinary tract infection and with this she was given a course of trimethoprim sul famethoxazole. She did not have any improvement, actually worsened with the increasing abdominal pain and development of the significant maculopapular rash that is starting to improve are ready. She has evidence of an ongoing urinary infection and she's had imaging studies reveal evidence of bilateral hydronephrosis without deepa obstruction being seen. With this the consultation was requested. 05/29/2019 the recent remains with ongoing abdominal pain. As before with her Parkinson's and medical status she is a poor historian but is able to communicate effectively her abdominal pain especially at the epigastric area. Patient's is present. Nursing staff relates to poor urinary output. She's been seen by urology as well as general surgery. Further abdominal x-rays have been requested. Communication was surgery occurred throughout the day and with concerns antibiotic therapy was transition from Rocephin to Zosyn pending further evaluations. Objective - Vital Signs Vital signs: Vital Signs Temp 98.7 F 05/29/19 20:00 Pulse 87 05/29/19 20:00 Resp 20 05/29/19 20:00 BP 93/51 05/29/19 20:00 Pulse Ox 95 05/29/19 20:00 Intake & Output 05/29/19 05/29/19 05/30/19 06:59 18:59 06:59 Intake Total 480 Output Total 250 0 Balance -250 480 Weight 124.5 kg Intake: Oral 480 Output: Urine 250 0 Other: Voiding Method Bedpan Indwelling Catheter Diaper # Voids 1 # Bowel Movements 0 - Exam obese 73-year-old woman complains of abdominal pain HEENT: Anicteric conjunctiva are pink and moist nasal mucosa grossly intact without significant lesions, there is no thrush. Neck: The neck is supple without significant lymphadenopathy or thyromegaly. Lungs: Good bilateral air entry without significant crackles or wheezing. There is no significant bronchial sounds. There is no egophony or dullness. Heart: Regular rate and rhythm with an audible S1-S2, no S3 no S4. There is no significant murmur click or rub, PMI was nondisplaced. Abdomen: Positive bowel sounds soft Has evidence of tenderness through the epigastrium to the left lower quadrant. I can palpate no mass to was no guarding or rebound no palpable organomegaly patient does grimace and cry out in pain when the epigastrium is palpated. Extremities: The upper extremities have excellent pulses they are symmetric, no significant petechiae or telangiectasia. No splinter hemorrhages were noted. Lower extremities evidence of chronic bilateral lower extremity edema but no open ulceration is seen Neuro: Awake alert oriented to person There are no acute new gross focal sensory motor deficits. Skin patient has evidence of a fading maculopapular rash it is not open but she does have evidence of some increased facial erythema - Labs CBC & Chem 7: 05/29/19 14:26 05/29/19 11:57 Labs: Abnormal Lab Results - Last 24 Hours (Table) 05/29/19 05/29/19 05/29/19 Range/Units 06:37 06:37 11:57 RBC 3.52 L (3.80-5.40) m/uL Hgb 11.1 L (11.4-16.0) gm/dL Hct 33.3 L (34.0-46.0) % Plt Count 66 L (150-450) k/uL Lymphocytes # 0.4 L (1.0-4.8) k/uL Sodium 135 L (137-145) mmol/L Potassium 6.2 H* 5.3 H (3.5-5.1) mmol/L Carbon Dioxide 19 L (22-30) mmol/L BUN 52 H (7-17) mg/dL Creatinine 2.90 H (0.52-1.04) mg/dL 05/29/19 Range/Units 14:26 RBC 3.23 L (3.80-5.40) m/uL Hgb 10.3 L (11.4-16.0) gm/dL Hct 31.9 L (34.0-46.0) % Plt Count 58 L (150-450) k/uL Lymphocytes # 0.6 L (1.0-4.8) k/uL Sodium (137-145) mmol/L Potassium (3.5-5.1) mmol/L Carbon Dioxide (22-30) mmol/L BUN (7-17) mg/dL Creatinine (0.52-1.04) mg/dL Microbiology - Last 24 Hours (Table) 05/27/19 18:01 Blood Culture - Preliminary Blood No Growth after 48 hours 05/28/19 14:39 Blood Culture - Preliminary Blood No Growth after 24 hours 05/28/19 13:00 Blood Culture - Preliminary Blood No Growth after 24 hours 05/27/19 19:50 Urine Culture - Final Urine,Catheterized Laboratory Results WBC 4.3 k/uL (3.8-10.6) 05/29/19 14:26 RBC 3.23 m/uL (3.80-5.40) L 05/29/19 14:26 Hgb 10.3 gm/dL (11.4-16.0) L 05/29/19 14:26 Hct 31.9 % (34.0-46.0) L 05/29/19 14:26 MCV 98.8 fL (80.0-100.0) 05/29/19 14:26 MCH 32.1 pg (25.0-35.0) 05/29/19 14:26 MCHC 32.4 g/dL (31.0-37.0) 05/29/19 14:26 RDW 13.9 % (11.5-15.5) 05/29/19 14:26 Plt Count 58 k/uL (150-450) L 05/29/19 14:26 Neutrophils % 77 % 05/29/19 14:26 Lymphocytes % 13 % 05/29/19 14:26 Monocytes % 2 % 05/29/19 14:26 Eosinophils % 5 % 05/29/19 14:26 Basophils % 0 % 05/29/19 14:26 Neutrophils # 3.3 k/uL (1.3-7.7) 05/29/19 14:26 Lymphocytes # 0.6 k/uL (1.0-4.8) L 05/29/19 14:26 Monocytes # 0.1 k/uL (0-1.0) 05/29/19 14:26 Eosinophils # 0.2 k/uL (0-0.7) 05/29/19 14:26 Basophils # 0.0 k/uL (0-0.2) 05/29/19 14:26 Manual Slide Review Performed 05/27/19 18:01 Hypochromasia (manual) Present 05/27/19 18:01 Anisocytosis (manual) Present 05/27/19 18:01 PT 11.0 sec (9.0-12.0) 05/27/19 18:01 INR 1.0 (<1.2) 05/27/19 18:01 APTT 25.8 sec (22.0-30.0) 05/27/19 18:01 Sodium 135 mmol/L (137-145) L 05/29/19 06:37 Potassium 5.3 mmol/L (3.5-5.1) H 05/29/19 11:57 Chloride 107 mmol/L (98-107) 05/29/19 06:37 Carbon Dioxide 19 mmol/L (22-30) L 05/29/19 06:37 Anion Gap 9 mmol/L 05/29/19 06:37 BUN 52 mg/dL (7-17) H 05/29/19 06:37 Creatinine 2.90 mg/dL (0.52-1.04) H 05/29/19 06:37 Est GFR (CKD-EPI)AfAm 18 (>60 ml/min/1.73 sqM) 05/29/19 06:37 Est GFR (CKD-EPI)NonAf 15 (>60 ml/min/1.73 sqM) 05/29/19 06:37 Glucose 89 mg/dL (74-99) 05/29/19 06:37 Plasma Lactic Acid Donell 0.9 mmol/L (0.7-2.0) 05/29/19 14:26 Calcium 8.4 mg/dL (8.4-10.2) 05/29/19 06:37 Magnesium 1.6 mg/dL (1.6-2.3) 05/29/19 06:37 Total Bilirubin 0.3 mg/dL (0.2-1.3) 05/28/19 14:39 AST 51 U/L (14-36) H 05/28/19 14:39 ALT 20 U/L (9-52) 05/28/19 14:39 Alkaline Phosphatase 60 U/L (38-126) 05/28/19 14:39 Troponin I <0.012 ng/mL (0.000-0.034) 05/27/19 18:01 Total Protein 5.4 g/dL (6.3-8.2) L 05/28/19 14:39 Albumin 3.0 g/dL (3.5-5.0) L 05/28/19 14:39 Amylase 36 U/L (30-110) 05/29/19 14:26 Lipase 58 U/L (23-300) 05/29/19 14:26 TSH 0.427 mIU/L (0.465-4.680) L 05/28/19 11:02 Free T4 1.19 ng/dL (0.78-2.19) 05/28/19 11:02 Urine Color Dark Yellow 05/29/19 21:35 Urine Appearance Turbid (Clear) H 05/29/19 21:35 Urine pH 5.0 (5.0-8.0) 05/29/19 21:35 Ur Specific [place] 1.023 (1.001-1.035) 05/29/19 21:35 Urine Protein 1+ (Negative) H 05/29/19 21:35 Urine Glucose (UA) Negative (Negative) 05/29/19 21:35 Urine Ketones Negative (Negative) 05/29/19 21:35 Urine Blood Negative (Negative) 05/29/19 21:35 Urine Nitrite Negative (Negative) 05/29/19 21:35 Urine Bilirubin Negative (Negative) 05/29/19 21:35 Urine Urobilinogen <2.0 mg/dL (<2.0) 05/29/19 21:35 Ur Leukocyte Esterase Negative (Negative) 05/29/19 21:35 Urine RBC 2 /hpf (0-5) 05/27/19 19:50 Urine WBC 11 /hpf (0-5) H 05/27/19 19:50 Ur Squamous Epith Cells 1 /hpf (0-4) 05/29/19 21:35 Urine Bacteria Few /hpf (None) H 05/29/19 21:35 Urine Mucus Rare /hpf (None) H 05/29/19 21:35 Random Vancomycin 16.9 ug/mL 05/29/19 06:37 Influenza Type A RNA Not Detected (Not Detectd) 05/27/19 20:52 Influenza Type B (PCR) Not Detected (Not Detectd) 05/27/19 20:52 Microbiology 05/27/19 18:01 Blood Blood Culture - Preliminary No Growth after 48 hours 05/28/19 14:39 Blood Blood Culture - Preliminary No Growth after 24 hours 05/28/19 13:00 Blood Blood Culture - Preliminary No Growth after 24 hours 05/27/19 19:50 Urine,Catheterized Urine Culture - Final Assessment and Plan (1) Acute renal failure Current Visit: Yes Status: Acute Code(s): N17.9 - ACUTE KIDNEY FAILURE, UNSPECIFIED SNOMED Code(s): 70798082 (2) Drug rash Current Visit: Yes Status: Acute Code(s): L27.0 - GEN SKIN ERUPTION DUE TO DRUGS AND MEDS TAKEN INTERNALLY SNOMED Code(s): 59885367 (3) UTI (lower urinary tract infection) Narrative/Plan: 73-year-old woman who has a history of prior stroke with some expressive aphasia presents to Hospital with increasing abdominal pain. She was in the outpatient setting with concern for urinary tract infection and was treated with a course of trimethoprim sulfamethoxazole. She now has increasing abdominal pain is developed evidence of generalized rash. The rash appears to be a classic drug eruption and the Bactrim has been discontinued. She now being treated with Vanco and cefepime till further culture data is available. She has had computed tomography scan of the abdomen as well as an ultrasound that shows evidence of bilateral hydronephrosis without evidence of significant etiology of this difficulty. Her pain control is somewhat better at this time. Chest x-ray is negative. Influenza testing was negative given her high-grade fever. At this time cultures are process which further help direct her course of antibiotic therapy. She may need urological evaluation given evidence of bilateral hydronephrosis of undetermined etiology. 05/29/2019 the patient is continuing to have ongoing abdominal pain. She's been seen by urology as well as general surgery. There is concerns for potential gastrointestinal etiology of her abdominal pain and constantly antibiotic therapy was altered to Zosyn from Rocephin. Urine cultures are pending. Blood cultures are pending but negative so far. She does have the abnormality that has been noticed on the computed tomography scan and ultrasound of bilateral hydronephrosis without significant hydroureter. Etiology is not clear but concern to underlying infectious etiology. We'll continue Zosyn for now pending further culture results. Further evaluation as requested by surgery and surgical plan is not yet clarified. Current Visit: No Status: Acute Code(s): N39.0 - URINARY TRACT INFECTION, SITE NOT SPECIFIED SNOMED Code(s): 4555923 (4) Fever Current Visit: Yes Status: Acute Code(s): R50.9 - FEVER, UNSPECIFIED SNOMED Code(s): 426702000
[2019-05-30] MEDS: HYDROmorphone 0.5 MG/0.5 ML SYRINGE IVP PRN (00:05)
[2019-05-30] MEDS: TRIAMCINOLONE ACET 0.1% OINTMENT 15 GM TUBE TOPICAL SCH ×3 (00:05→20:50)
[2019-05-30] MEDS: PIPERACILLIN-TAZOBACTAM 3.375 GM in SODIUM CHLORIDE 0.9% 100 ML IVPB SCH ×2 (06:12→19:24)
[2019-05-30] MEDS: LEVOTHYROXINE 75 MCG TAB PO SCH (06:12)
[2019-05-30] MEDS: PANTOPRAZOLE 40 MG TABLET PO SCH ×2 (06:12→19:24)
[2019-05-30] MEDS: CARVEDILOL 6.25 MG TAB PO SCH (06:13)
[2019-05-30] MEDS: SODIUM CHLORIDE 0.9% 1,000 ML IV SCH ×3 (06:13→20:47)
[2019-05-30 07:06] LABS: Calcium 7.4 mg/dL (8.4-10.2); Potassium 5.5 mmol/L (3.5-5.1)
[2019-05-30 09:02] LABS: Basophils % (A) 0 %; Eosinophils # (A) 0.2 k/uL (0-0.7); Eosinophils % (A) 5 %; HCT 30.5 % (34.0-46.0); HGB 9.9 gm/dL (11.4-16.0); Lymphocytes # (A) 0.4 k/uL (1.0-4.8); Lymphocytes % (A) 10 %; MCH 31.4 pg (25.0-35.0); MCHC 32.5 g/dL (31.0-37.0); MCV 96.4 fL (80.0-100.0); Mean Platelet Volume 8.8; Monocytes # (A) 0.2 k/uL (0-1.0); Monocytes % (A) 4 %; Neutrophils # (A) 3.3 k/uL (1.3-7.7); Neutrophils % (A) 77 %; RBC 3.16 m/uL (3.80-5.40); RDW 14.6 % (11.5-15.5); WBC 4.3 k/uL (3.8-10.6)
[2019-05-30 09:07] LABS: Platelet Count 50 k/uL (150-450)
[2019-05-30] MEDS: CARBIDOPA-LEVODOPA 25-100 MG 1 EACH TAB PO SCH ×4 (09:54→20:46)
[2019-05-30] MEDS: PRAVASTATIN SODIUM 80 MG TAB PO SCH (09:54)
[2019-05-30] MEDS: DICLOFENAC SODIUM GEL 100 GM TUBE TOPICAL SCH ×2 (09:55→19:15)
[2019-05-30] MEDS: ALLOPURINOL 100 MG TAB PO SCH ×2 (09:55→20:46)
[2019-05-30] MEDS: CLOTRIMAZOLE 1% CREAM 15 GM TUBE TOPICAL SCH ×2 (09:56→20:50)
[2019-05-30] MEDS: PRAMIPEXOLE 1 MG TAB PO SCH (09:57)
[2019-05-30] MEDS: ACETAMINOPHEN TAB 325 MG TAB PO PRN ×2 (10:10→20:46)
[2019-05-30] MEDS ORDERED: IPRATROPIUM-ALBUTEROL 3 ML NEB INHALATION PRN (10:48)
--- NOTE | 2019-05-30 11:08 | P.PN ---
<Kendra Roberts - Last Filed: 05/30/19 11:04> Subjective Progress Note Date: 05/30/19 CHIEF COMPLAINT: Possible perforated colon HISTORY OF PRESENT ILLNESS: Patient examined at the bedside this morning. She reports nausea but no emesis. Abdominal pain about the same as yesterday. Remains near umbilicus. Only had a few bites of her breakfast this morning and felt a choking sensation. Speech at bedside currently to perform swallow evaluation. WBC remains normal at 4.3. Hemoglobin 9.9. Creatinine now 3.85. Nephrology has been consulted. PHYSICAL EXAM: VITAL SIGNS: Reviewed. GENERAL: Well-developed in no acute distress but appears uncomfortable. HEENT: No sclera icterus. Extraocular movements grossly intact. Moist buccal mucosa. Head is atraumatic, normocephalic. ABDOMEN: Obese. Soft. Nondistended. Tenderness with palpation near umbilicus. No signs of peritonitis. Positive bowel sounds. NEUROLOGIC: Awake and alert. Cranial nerves II through XII grossly intact. SKIN: Generalized maculopapular rash ASSESSMENT: 1. Abdominal pain 2. Sepsis, patient with fever and hypotension 3. Recent urinary tract infection PLAN: Continue antibiotics per infectious disease. Await XR results from this morning No indications for surgical intervention at this time Further recommendations pending Nurse practitioner note has been reviewed by physician. Signing provider agrees with the documented findings, assessment, and plan of care. Objective - Vital Signs Vital signs: Vital Signs Temp 98.9 F 05/30/19 04:00 Pulse 92 05/30/19 04:00 Resp 20 05/30/19 04:00 BP 90/50 05/30/19 04:00 Pulse Ox 94 L 05/30/19 04:00 Intake & Output 05/29/19 05/30/19 05/30/19 18:59 06:59 18:59 Intake Total 480 120 Output Total 0 200 Balance 480 -200 120 Weight 124.2 kg Intake: Oral 480 120 Output: Urine 0 200 Other: Voiding Method Indwelling Catheter # Voids 1 0 # Bowel Movements 0 - Labs CBC & Chem 7: 05/30/19 06:08 05/30/19 06:08 Labs: Abnormal Lab Results - Last 24 Hours (Table) 05/29/19 05/29/19 05/29/19 Range/Units 11:57 14:26 21:35 RBC 3.23 L (3.80-5.40) m/uL Hgb 10.3 L (11.4-16.0) gm/dL Hct 31.9 L (34.0-46.0) % Plt Count 58 L (150-450) k/uL Lymphocytes # 0.6 L (1.0-4.8) k/uL Sodium (137-145) mmol/L Potassium 5.3 H (3.5-5.1) mmol/L Chloride (98-107) mmol/L Carbon Dioxide (22-30) mmol/L BUN (7-17) mg/dL Creatinine (0.52-1.04) mg/dL Calcium (8.4-10.2) mg/dL Urine Appearance Turbid H (Clear) Urine Protein 1+ H (Negative) Urine WBC 28 H (0-5) /hpf Urine Bacteria Few H (None) /hpf Urine Mucus Rare H (None) /hpf 05/30/19 05/30/19 Range/Units 06:08 06:08 RBC 3.16 L (3.80-5.40) m/uL Hgb 9.9 L (11.4-16.0) gm/dL Hct 30.5 L (34.0-46.0) % Plt Count 50 L (150-450) k/uL Lymphocytes # 0.4 L (1.0-4.8) k/uL Sodium 135 L (137-145) mmol/L Potassium 5.5 H (3.5-5.1) mmol/L Chloride 108 H (98-107) mmol/L Carbon Dioxide 17 L (22-30) mmol/L BUN 56 H (7-17) mg/dL Creatinine 3.85 H (0.52-1.04) mg/dL Calcium 7.4 L (8.4-10.2) mg/dL Urine Appearance (Clear) Urine Protein (Negative) Urine WBC (0-5) /hpf Urine Bacteria (None) /hpf Urine Mucus (None) /hpf Microbiology - Last 24 Hours (Table) 05/29/19 21:35 Urine Culture - Preliminary Urine,Voided 05/27/19 18:01 Blood Culture - Preliminary Blood No Growth after 48 hours 05/28/19 14:39 Blood Culture - Preliminary Blood No Growth after 24 hours 05/28/19 13:00 Blood Culture - Preliminary Blood No Growth after 24 hours <Rigo Oleary - Last Filed: 05/30/19 17:19> Subjective As above. Patient describes her pain as being 3 out of 10 today. Feels better overall. Somewhat short of breath. Abdomen remains soft with mild diffuse tenderness. Abdominal x-rays reviewed. Mild small bowel dilation noted. Etiology of the patient's fevers remain unclear at this time. Continue regular diet. If pain persists would consider repeating CAT scan with oral contrast. Will follow. Objective - Vital Signs Vital signs: Vital Signs Temp 98.9 F 05/30/19 04:00 Pulse 92 05/30/19 13:47 Resp 20 05/30/19 04:00 BP 90/50 05/30/19 04:00 Pulse Ox 94 L 05/30/19 04:00 Intake & Output 05/29/19 05/30/19 05/30/19 18:59 06:59 18:59 Intake Total 480 360 Output Total 0 200 Balance 480 -200 360 Weight 124.2 kg Intake: Oral 480 360 Output: Urine 0 200 Other: Voiding Method Indwelling Catheter # Voids 1 0 # Bowel Movements 0 0 - Labs CBC & Chem 7: 05/30/19 06:08 05/30/19 06:08 Labs: Abnormal Lab Results - Last 24 Hours (Table) 05/29/19 05/30/19 05/30/19 Range/Units 21:35 06:08 06:08 RBC 3.16 L (3.80-5.40) m/uL Hgb 9.9 L (11.4-16.0) gm/dL Hct 30.5 L (34.0-46.0) % Plt Count 50 L (150-450) k/uL Lymphocytes # 0.4 L (1.0-4.8) k/uL Sodium 135 L (137-145) mmol/L Potassium 5.5 H (3.5-5.1) mmol/L Chloride 108 H (98-107) mmol/L Carbon Dioxide 17 L (22-30) mmol/L BUN 56 H (7-17) mg/dL Creatinine 3.85 H (0.52-1.04) mg/dL Calcium 7.4 L (8.4-10.2) mg/dL Urine Appearance Turbid H (Clear) Urine Protein 1+ H (Negative) Urine WBC 28 H (0-5) /hpf Urine Bacteria Few H (None) /hpf Urine Mucus Rare H (None) /hpf Microbiology - Last 24 Hours (Table) 05/28/19 14:39 Blood Culture - Preliminary Blood No Growth after 48 hours 05/28/19 13:00 Blood Culture - Preliminary Blood No Growth after 48 hours 05/29/19 21:35 Urine Culture - Preliminary Urine,Voided 05/27/19 18:01 Blood Culture - Preliminary Blood No Growth after 48 hours
--- NOTE | 2019-05-30 13:11 | P.NPCON ---
History of Present Illness - Reason for Consult acute renal failure, chronic renal failure - History of Present Illness Reason for consultation: Acute kidney injury on chronic kidney disease. History of present illness: Patient is a 73-year-old female seen in renal consultation for acute kidney injury on chronic kidney disease. Patient has chronic kidney disease stage III with baseline creatinine in the range of 1.2-1.5 secondary to nephrosclerosis. Patient presented to the hospital with abdominal pain along with nausea and vomiting going on for the last 1 week or so. Patient is also noted to have bilateral hydronephrosis for which urology is following. She currently has a Bueno catheter in place and is nonoliguric. She was also noted to be hypotensive with blood pressure in the 70s and 80s on admission. Her blood pressure remains low in the systolic 90s. She is maintained on normal saline at 1 25 mL an hour. Patient was recently seen in the ER for foot infection as well as UTI and was given Bactrim. She had been on Bactrim for about one week prior to this admission. Patient also developed erythematous rash diffusely throughout her body. She denies use of nonsteroidals. No history of diabetes. Vital signs are stable. General: The patient appeared well nourished and normally developed. HEENT: Head exam is unremarkable. Neck is without jugular venous distension. LUNGS: Lungs are clear to auscultation and percussion. Breath sounds decreased. HEART: Rate and Rhythm are regular. First and second heart sounds normal. No murmurs, rubs or gallops. ABDOMEN: Abdominal exam reveals normal bowel sounds. Non-tender and non- distended. No evidence of peritonitis. EXTREMITITES: Trace edema. Diffuse erythematous rash noted. 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, hypothyroidism, hypertension, hyperlipidemia, Parkinson's disease, degenerative arthritis, anxiety, depression History of Any Multi-Drug Resistant Organisms: None Reported Past Surgical History: Hysterectomy, Orthopedic Surgery Additional Past Surgical History / Comment(s): Hammer toe surgery, recent infection to toe Past Anesthesia/Blood Transfusion Reactions: No Reported Reaction Past Psychological History: Anxiety, Bipolar, Depression Smoking Status: Former smoker Past Alcohol Use History: None Reported Past Drug Use History: None Reported - Past Family History Father Family Medical History: No Reported History Medications and Allergies Home Medications Medication Instructions Recorded Confirmed Type Carbidopa/Levodopa [Parcopa 25-100 1 tab SL QID 09/07/14 05/27/19 History mg Odt] Carvedilol 6.25 mg PO BID 09/07/14 05/27/19 History Escitalopram Oxalate [Lexapro] 10 mg PO DAILY 09/07/14 05/27/19 History Omeprazole [PriLOSEC] 20 mg PO BID 09/07/14 05/27/19 History Pravastatin Sodium [Pravachol] 80 mg PO DAILY 09/07/14 05/27/19 History Triamterene/Hydrochlorothiazid 1 tab PO DAILY 09/07/14 05/27/19 History [Triamterene-Hctz 37.5-25 mg Tb] Verapamil HCl [Verapamil ER] 240 mg PO DAILY 09/07/14 05/27/19 History Allopurinol [Zyloprim] 100 mg PO BID 09/21/17 05/27/19 History Calcitriol [Rocaltrol] 0.25 mcg PO WESA 05/19/19 05/27/19 History Clotrimazole [Clotrimazole AF] 1 applic TOPICAL BID 7 Days #28 gm 05/19/19 05/27/19 Rx Ergocalciferol (Vitamin D2) 50,000 unit PO Q14D 05/19/19 05/27/19 History [Drisdol] Levothyroxine Sodium [Synthroid] 150 mcg PO DAILY 05/19/19 05/27/19 History Lisinopril [Zestril] 10 mg PO DAILY 05/19/19 05/27/19 History Pramipexole [Mirapex] 1 mg PO DAILY 05/19/19 05/27/19 History Aspirin EC [Ecotrin] 325 mg PO DAILY 05/27/19 05/27/19 History Fluocinonide 0.05% [Lidex 0.05% 1 applic TOPICAL BID 05/27/19 05/27/19 History cream] Hydrocortisone Oint 1 applic TOPICAL BID 05/27/19 05/27/19 History [Hydrocortisone 2.5% Oint] Ketoconazole [Ketoconazole 2%] 1 applic TOPICAL BID 05/27/19 05/27/19 History Sulfamethox-Tmp 800-160Mg [Bactrim 2 tab PO Q12HR 05/27/19 05/27/19 History DS 800-160 mg] Allergies Allergy/AdvReac Type Severity Reaction Status Date / Time amiodarone [From Cordarone] Allergy Anaphylaxis Verified 05/27/19 19:03 cyclobenzaprine Allergy Rash/Hives Verified 05/27/19 19:03 [From Flexeril] Physical Exam Vitals: Vital Signs Temp Pulse Resp BP BP Pulse Ox 05/30/19 04:00 98.9 F 92 17 90/50 94 L 05/30/19 00:00 99 F 90 20 98/54 95 05/29/19 20:00 98.7 F 87 20 93/51 95 05/29/19 16:00 97.5 F L 89 22 115/55 99 Intake and Output 05/29/19 05/30/19 05/30/19 22:59 06:59 14:59 Intake Total 120 120 Output Total 200 Balance 120 -200 120 Intake: Oral 120 120 Output: Urine 200 Other: Voiding Method Indwelling Catheter Indwelling Catheter # Voids 1 0 Weight 124.2 kg Results - Lab Results Most recent lab results Calcium 7.4 mg/dL (8.4-10.2) L 05/30/19 06:08 Magnesium 1.6 mg/dL (1.6-2.3) 05/29/19 06:37 05/30/19 06:08 05/30/19 06:08 Assessment and Plan Plan: Assessment: 1. Acute kidney injury secondary to ATN secondary to hypotension as well as Bactrim which will impair creatinine secretion. Also concern for obstructive uropathy. Creatinine up to 3.85 today. Need to also rule out ALLERGIC interstitial nephritis. 2. Bilateral hydronephrosis. Urology following. Consider cystoscopy. 3. Hyperkalemia secondary to acute kidney injury and metabolic acidosis. Bactrim as well as lisinopril will raise potassium level as well. 4. Metabolic acidosis secondary to acute kidney injury as well as IV fluids. 5. Hypotension. Rule out adrenal insufficiency. 6. Chronic kidney disease stage III with baseline creatinine in the range of 1.2-1.5 secondary to nephrosclerosis. Plan: Decrease normal saline to 100 mL an hour. Add oral sodium bicarbonate. Low potassium diet. Repeat potassium level this evening. Check morning cortisol level. Add midodrine. Avoid nephrotoxins. Will potentially require renal replacement therapy if renal function continues to decline. Discussed with the patient. Thank you for the consultation. I will continue to follow the patient with you during her hospital stay.
--- NOTE | 2019-05-30 13:12 | XR ---
EXAMINATION TYPE: XR abdomen 2V DATE OF EXAM: 05/30/2019 COMPARISON: 05/27/2019 HISTORY: Pain TECHNIQUE: One view abdominal series FINDINGS: The osseous structures are intact. The bowel gas pattern is nonspecific. There are dilated bowel loo ps throughout the abdomen. Stomach appears to be distended. Surgical clips are seen in the right uppe r quadrant. Calcification the pelvis are likely vascular. Subsegmental basilar atelectasis or infiltr ate. IMPRESSION: 1. Nonspecific abdomen with findings suggestive of ileus or partial obstruction. Correlate clinically .
[2019-05-30] MEDS: IPRATROPIUM-ALBUTEROL 3 ML NEB INHALATION SCH ×4 (13:16→19:46)
--- NOTE | 2019-05-30 16:33 | P.PN ---
Subjective Progress Note Date: 05/30/19 This is a 73-year-old white female well-known to me. 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 So her history is difficult to get. Per the ER doctor and one unable to get from Leena herself, she been having 1 week history of not feeling well. She indicates some epigastric area as the source of her abdominal pain. Said that's been going on she hasn't had any symptoms other than a fever, and a rash started 1 day ago. She's been on Bactrim for an unspecified amount of time.. I try to call her at this point but he was not home. Leena also indicates that she is developed a rash decided started yesterday. This is to her thoracic and lumbar back. She indicates it does not really itch. I really was not able to elicit much more history from Leena her self. But certainly she is rarely ill and usually comes in the office immediately for upper respiratory tract infections other illnesses. Does have a history of hypertension and depression along with Parkinson's. She usually ambulates with a walker at home, but needs a wheelchair for any significant distances. She is obviously not herself attain appears quite distress. Her MAXIMUM TEMPERATURE is currently 101.4F 05/29/2019 T-max 100.8, normal WBC. No bowel movement since Wednesday per patient. Early this morning patient developed hypotension, blood pressure into the 70s, received fluid bolus with IV fluids increased. Systolic blood pressure currently up into the high 80s. Renal function worsening, creatinine 2.9. Staff reports no urine output this morning, presented with wet pull up this afternoon. Potassium initially reported as 6.2, repeated-5.3. 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 Maintained on IV antibiotics of Rocephin. Silvadene to foot. Upon Dr. Santiago's abdominal exam, patient can barely tolerate light touch-refer to assessment below. Urgent surgery consult initiated. 05/30/2019 antibiotics further adjusted yesterday, T-max of 100.6, normal WBC. Hyperactive bowel sounds. Continues to report left lower quadrant/periumbilical abdominal pain, nausea, no emesis. Abdominal x-ray pending. Creatinine continues to worsen, 3.85. Evaluated by nephrology with recommendations noted and appreciated. Bedside swallow eval in progress as patient had a choking sensation with breakfast. Hemoglobin 9.9. Evaluated by nephrology, recommendations noted. Objective - Vital Signs Vital signs: Vital Signs Temp 98.9 F 05/30/19 04:00 Pulse 92 05/30/19 13:47 Resp 20 05/30/19 04:00 BP 90/50 05/30/19 04:00 Pulse Ox 94 L 05/30/19 04:00 Intake & Output 05/29/19 05/30/19 05/30/19 18:59 06:59 18:59 Intake Total 480 360 Output Total 0 200 Balance 480 -200 360 Weight 124.2 kg Intake: Oral 480 360 Output: Urine 0 200 Other: Voiding Method Indwelling Catheter # Voids 1 0 # Bowel Movements 0 0 - Exam GENERAL: Morbidly obese white female appears to be in pain ,perspiring. Shaking head"yes to pain." HEAD: Atraumatic, normocephalic. Face reddened. ENT:nares patent, oropharynx clear without exudates. Moist mucous membranes. NECK: Normal range of motion, supple without lymphadenopathy or JVD, no thyromegaly LUNGS: Breath sounds coarse to auscultation bilaterally and equal. No rales or rhonchi. Occasional expiratory wheezing HEART: Regular rate and rhythm without murmurs, rubs or gallops.S1S2 Normal ABDOMEN: Soft, normoactive bowel sounds. ? guarding, no rebound. No masses appreciated. Tender ,warm, rigid to minimal palpation in left of midepigastrium. EXTREMITIES: Normal range of motion, no pitting or edema. No clubbing or cyanosis. There is some erythema to the inner webspace between the second and third toe on the dorsum of her left foot. NEUROLOGICAL: Cranial nerves II through XII grossly intact. Her speech is consistent with expressive aphasia. She also has some minimal left-sided weakness. PSYCH: Normal mood, normal affect. SKIN: She is erythematous in the face, there are significant erythematous rash to her back consistent with drug eruption. There are no plaques, papules, macules, or bulla. Left foot with dry flaky skin, cracks, between first and second and third toes, reddened on the lateral side of foot, no drainage. Silvadene to affected foot. Microbiology 05/28/19 13:00 Blood Blood Culture - Preliminary No Growth after 48 hours 05/29/19 21:35 Urine,Voided Urine Culture - Preliminary 05/27/19 18:01 Blood Blood Culture - Preliminary No Growth after 48 hours 05/28/19 14:39 Blood Blood Culture - Preliminary No Growth after 24 hours 05/27/19 19:50 Urine,Catheterized Urine Culture - Final - Labs CBC & Chem 7: 05/30/19 06:08 05/30/19 06:08 Labs: Abnormal Lab Results - Last 24 Hours (Table) 05/29/19 05/30/19 05/30/19 Range/Units 21:35 06:08 06:08 RBC 3.16 L (3.80-5.40) m/uL Hgb 9.9 L (11.4-16.0) gm/dL Hct 30.5 L (34.0-46.0) % Plt Count 50 L (150-450) k/uL Lymphocytes # 0.4 L (1.0-4.8) k/uL Sodium 135 L (137-145) mmol/L Potassium 5.5 H (3.5-5.1) mmol/L Chloride 108 H (98-107) mmol/L Carbon Dioxide 17 L (22-30) mmol/L BUN 56 H (7-17) mg/dL Creatinine 3.85 H (0.52-1.04) mg/dL Calcium 7.4 L (8.4-10.2) mg/dL Urine Appearance Turbid H (Clear) Urine Protein 1+ H (Negative) Urine WBC 28 H (0-5) /hpf Urine Bacteria Few H (None) /hpf Urine Mucus Rare H (None) /hpf Microbiology - Last 24 Hours (Table) 05/28/19 13:00 Blood Culture - Preliminary Blood No Growth after 48 hours 05/29/19 21:35 Urine Culture - Preliminary Urine,Voided 05/27/19 18:01 Blood Culture - Preliminary Blood No Growth after 48 hours 05/28/19 14:39 Blood Culture - Preliminary Blood No Growth after 24 hours Assessment and Plan Assessment: - -Abdominal pain, etiology unclear ruling out SBO, perforated diverticulum, ileus. -Sepsis present on admission, etiology unclear -Hypotension secondary to the above, rule out adrenal insufficiency -Hypoxic respiratory failure -Hyperkalemia secondary to acute renal failure, medication induced-ALISON inhibitor, Bactrim, metabolic acidosis (1) Acute on chronic renal failure III, secondary to nephrosclerosis, baseline 1.2-1.5 Current Visit: Yes Status: Acute Code(s): N17.9 - ACUTE KIDNEY FAILURE, UNSPECIFIED SNOMED Code(s): 51587645 (2) Hydronephrosis with possible obstructive uropathy. Current Visit: Yes Status: Acute Code(s): N13.30 - UNSPECIFIED HYDRONEPHROSIS SNOMED Code(s): 62754331 (3) Parkinson disease Current Visit: Yes Status: Acute Code(s): G20 - PARKINSON'S DISEASE SNOMED Code(s): 43303202 (4) Debility Current Visit: Yes Status: Acute Code(s): R53.81 - OTHER MALAISE SNOMED Code(s): 29057539 (5) Essential (primary) hypertension Current Visit: Yes Status: Acute Code(s): I10 - ESSENTIAL (PRIMARY) HYPERTENSION SNOMED Code(s): 26891891 (6) Pure hypercholesterolemia Current Visit: Yes Status: Acute Code(s): E78.00 - PURE HYP ERCHOLESTEROLEMIA, UNSPECIFIED SNOMED Code(s): 309788170 (7) SIRS (systemic inflammatory response syndrome) Current Visit: Yes Status: Acute Code(s): R65.10 - SIRS OF NON-INFECTIOUS ORIGIN W/O ACUTE ORGAN DYSFUNCTION SNOMED Code(s): 679327614 (8) Cellulitis, toe Current Visit: No Status: Acute Code(s): L03.039 - CELLULITIS OF UNSPECIFIED TOE SNOMED Code(s): 06237769 (9) History of cerebrovascular accident Current Visit: No Status: Acute Code(s): Z86.73 - PRSNL HX OF TIA (TIA), AND CEREB INFRC W/O RESID DEFICITS SNOMED Code(s): 545924621 (10) Drug rash Current Visit: Yes Status: Acute Code(s): L27.0 - GEN SKIN ERUPTION DUE TO DRUGS AND MEDS TAKEN INTERNALLY SNOMED Code(s): 58231845 (11) metabolic acidosis secondary to acute renal failure Plan: Continue on current medication regime ,PPI,monitoring and symptomatic treatment. Maintain IV fluids-rate decreased, Nebulized bronchodilators, antibiotics .avoid nephrotoxic agents. Midodrin, sodium bicarb added to med regime. Close monitoring of renal function, electrolytes with repeat labs ordered for a.m.COrtisol level ordered. Low potassium diet. Nephrology recommendations noted and appreciated. Follow-up Abdominal x-ray completed, results pending. Potential cystoscopy-further recommendations pending from urology. prognosis guarded and multiple complex medical issues. The impression and plan of care has been dictated as directed. : I performed a history and examination of this patient, discussed the same with the dictator. I agree with the dictator's note ,documented as a scribe. Any a dditional findings or plans will be noted.
[2019-05-30] MEDS: MIDODRINE 5 MG TAB PO SCH (19:24)
[2019-05-30] MEDS: SODIUM BICARBONATE TAB 650 MG TAB PO SCH ×2 (19:24→20:46)
--- NOTE | 2019-05-30 22:56 | P.PN ---
Subjective Progress Note Date: 05/30/19 73 year old woman with history of CVA and persistent difficulty with expressive aphasia presents to ER complaining of abdominal pain which was worsening per the who acts as her historian. She does point to the Abdomen and complains of pain which seems to be of maximum intensity near the epigastrium. It is not related that she's had significant nausea or emesis, there is no hematemesis melena or hematochezia. does not believe that she's had since and diarrhea does have some chronic constipation issues. She does not routinely have complaints of abdominal pain. She recently did have difficulties with a urinary tract infection and with this she was given a course of trimethoprim sul famethoxazole. She did not have any improvement, actually worsened with the increasing abdominal pain and development of the significant maculopapular rash that is starting to improve are ready. She has evidence of an ongoing urinary infection and she's had imaging studies reveal evidence of bilateral hydronephrosis without deepa obstruction being seen. With this the consultation was requested. 05/29/2019 the recent remains with ongoing abdominal pain. As before with her Parkinson's and medical status she is a poor historian but is able to communicate effectively her abdominal pain especially at the epigastric area. Patient's is present. Nursing staff relates to poor urinary output. She's been seen by urology as well as general surgery. Further abdominal x-rays have been requested. Communication was surgery occurred throughout the day and with concerns antibiotic therapy was transition from Rocephin to Zosyn pending further evaluations. 05/30/2019 patient seems to be feeling slightly better. Her abdominal pain does seem to be improved. Initially that she's been able to ingest some nutrition today. Appears to be tolerating antibiotic therapy well. Surgery is following. Objective - Vital Signs Vital signs: Vital Signs Temp 98.6 F 05/30/19 08:00 Pulse 92 05/30/19 19:59 Resp 20 05/30/19 12:00 BP 107/57 05/30/19 12:00 Pulse Ox 96 05/30/19 12:00 Intake & Output 05/30/19 05/30/19 05/31/19 06:59 18:59 06:59 Intake Total 600 Output Total 200 725 Balance -200 600 -725 Weight 124.2 kg Intake: Oral 600 Output: Urine 200 725 Other: Voiding Method Indwelling Catheter Indwelling Catheter # Voids 0 # Bowel Movements 0 - Exam obese 73-year-old woman complains of abdominal pain HEENT: Anicteric conjunctiva are pink and moist nasal mucosa grossly intact without significant lesions, there is no thrush. Neck: The neck is supple without significant lymphadenopathy or thyromegaly. Lungs: Good bilateral air entry without significant crackles or wheezing. There is no significant bronchial sounds. There is no egophony or dullness. Heart: Regular rate and rhythm with an audible S1-S2, no S3 no S4. There is no significant murmur click or rub, PMI was nondisplaced. Abdomen: Positive bowel sounds soft Has evidence of tenderness through the epigastrium to the left lower quadrant. I can palpate no mass there was no guarding or rebound no palpable organomegaly patient has much less tenderness when the epigastrium is palpated. Extremities: The upper extremities have excellent pulses they are symmetric, no significant petechiae or telangiectasia. No splinter hemorrhages were noted. Lower extremities evidence of chronic bilateral lower extremity edema but no open ulceration is seen Neuro: Awake alert oriented to person There are no acute new gross focal sensory motor deficits. Skin patient has evidence of a fading maculopapular rash, it is not open but she does have evidence of some facial erythema - Labs CBC & Chem 7: 05/30/19 06:08 05/30/19 17:00 Labs: Abnormal Lab Results - Last 24 Hours (Table) 05/30/19 05/30/19 05/30/19 Range/Units 06:08 06:08 17:00 RBC 3.16 L (3.80-5.40) m/uL Hgb 9.9 L (11.4-16.0) gm/dL Hct 30.5 L (34.0-46.0) % Plt Count 50 L (150-450) k/uL Lymphocytes # 0.4 L (1.0-4.8) k/uL Sodium 135 L (137-145) mmol/L Potassium 5.5 H 5.2 H (3.5-5.1) mmol/L Chloride 108 H (98-107) mmol/L Carbon Dioxide 17 L (22-30) mmol/L BUN 56 H (7-17) mg/dL Creatinine 3.85 H (0.52-1.04) mg/dL Calcium 7.4 L (8.4-10.2) mg/dL Microbiology - Last 24 Hours (Table) 05/27/19 18:01 Blood Culture - Preliminary Blood No Growth after 72 hours 05/28/19 14:39 Blood Culture - Preliminary Blood No Growth after 48 hours 05/28/19 13:00 Blood Culture - Preliminary Blood No Growth after 48 hours 05/29/19 21:35 Urine Culture - Preliminary Urine,Voided Laboratory Results WBC 4.3 k/uL (3.8-10.6) 05/30/19 06:08 RBC 3.16 m/uL (3.80-5.40) L 05/30/19 06:08 Hgb 9.9 gm/dL (11.4-16.0) L 05/30/19 06:08 Hct 30.5 % (34.0-46.0) L 05/30/19 06:08 MCV 96.4 fL (80.0-100.0) 05/30/19 06:08 MCH 31.4 pg (25.0-35.0) 05/30/19 06:08 MCHC 32.5 g/dL (31.0-37.0) 05/30/19 06:08 RDW 14.6 % (11.5-15.5) 05/30/19 06:08 Plt Count 50 k/uL (150-450) L 05/30/19 06:08 Neutrophils % 77 % 05/30/19 06:08 Lymphocytes % 10 % 05/30/19 06:08 Monocytes % 4 % 05/30/19 06:08 Eosinophils % 5 % 05/30/19 06:08 Basophils % 0 % 05/30/19 06:08 Neutrophils # 3.3 k/uL (1.3-7.7) 05/30/19 06:08 Lymphocytes # 0.4 k/uL (1.0-4.8) L 05/30/19 06:08 Monocytes # 0.2 k/uL (0-1.0) 05/30/19 06:08 Eosinophils # 0.2 k/uL (0-0.7) 05/30/19 06:08 Basophils # 0.0 k/uL (0-0.2) 05/30/19 06:08 Manual Slide Review Performed 05/27/19 18:01 Hypochromasia (manual) Present 05/27/19 18:01 Anisocytosis (manual) Present 05/27/19 18:01 PT 11.0 sec (9.0-12.0) 05/27/19 18:01 INR 1.0 (<1.2) 05/27/19 18:01 APTT 25.8 sec (22.0-30.0) 05/27/19 18:01 Sodium 135 mmol/L (137-145) L 05/30/19 06:08 Potassium 5.2 mmol/L (3.5-5.1) H 05/30/19 17:00 Chloride 108 mmol/L (98-107) H 05/30/19 06:08 Carbon Dioxide 17 mmol/L (22-30) L 05/30/19 06:08 Anion Gap 10 mmol/L 05/30/19 06:08 BUN 56 mg/dL (7-17) H 05/30/19 06:08 Creatinine 3.85 mg/dL (0.52-1.04) H 05/30/19 06:08 Est GFR (CKD-EPI)AfAm 13 (>60 ml/min/1.73 sqM) 05/30/19 06:08 Est GFR (CKD-EPI)NonAf 11 (>60 ml/min/1.73 sqM) 05/30/19 06:08 Glucose 88 mg/dL (74-99) 05/30/19 06:08 Plasma Lactic Acid Donell 0.9 mmol/L (0.7-2.0) 05/29/19 14:26 Calcium 7.4 mg/dL (8.4-10.2) L 05/30/19 06:08 Magnesium 1.6 mg/dL (1.6-2.3) 05/29/19 06:37 Total Bilirubin 0.3 mg/dL (0.2-1.3) 05/28/19 14:39 AST 51 U/L (14-36) H 05/28/19 14:39 ALT 20 U/L (9-52) 05/28/19 14:39 Alkaline Phosphatase 60 U/L (38-126) 05/28/19 14:39 Troponin I <0.012 ng/mL (0.000-0.034) 05/27/19 18:01 Total Protein 5.4 g/dL (6.3-8.2) L 05/28/19 14:39 Albumin 3.0 g/dL (3.5-5.0) L 05/28/19 14:39 Amylase 36 U/L (30-110) 05/29/19 14:26 Lipase 58 U/L (23-300) 05/29/19 14:26 TSH 0.427 mIU/L (0.465-4.680) L 05/28/19 11:02 Free T4 1.19 ng/dL (0.78-2.19) 05/28/19 11:02 Urine Color Dark Yellow 05/29/19 21:35 Urine Appearance Turbid (Clear) H 05/29/19 21:35 Urine pH 5.0 (5.0-8.0) 05/29/19 21:35 Ur Specific [place] 1.023 (1.001-1.035) 05/29/19 21:35 Urine Protein 1+ (Negative) H 05/29/19 21:35 Urine Glucose (UA) Negative (Negative) 05/29/19 21:35 Urine Ketones Negative (Negative) 05/29/19 21:35 Urine Blood Negative (Negative) 05/29/19 21:35 Urine Nitrite Negative (Negative) 05/29/19 21:35 Urine Bilirubin Negative (Negative) 05/29/19 21:35 Urine Urobilinogen <2.0 mg/dL (<2.0) 05/29/19 21:35 Ur Leukocyte Esterase Negative (Negative) 05/29/19 21:35 Urine RBC 2 /hpf (0-5) 05/27/19 19:50 Urine WBC 28 /hpf (0-5) H 05/29/19 21:35 Ur Squamous Epith Cells 1 /hpf (0-4) 05/29/19 21:35 Urine Bacteria Few /hpf (None) H 05/29/19 21:35 Urine Mucus Rare /hpf (None) H 05/29/19 21:35 Random Vancomycin 16.9 ug/mL 05/29/19 06:37 Influenza Type A RNA Not Detected (Not Detectd) 05/27/19 20:52 Influenza Type B (PCR) Not Detected (Not Detectd) 05/27/19 20:52 Microbiology 05/27/19 18:01 Blood Blood Culture - Preliminary No Growth after 72 hours 05/28/19 14:39 Blood Blood Culture - Preliminary No Growth after 48 hours 05/28/19 13:00 Blood Blood Culture - Preliminary No Growth after 48 hours 05/29/19 21:35 Urine,Voided Urine Culture - Preliminary 05/27/19 19:50 Urine,Catheterized Urine Culture - Final - Imaging and Cardiology Abdominal x-ray: report reviewed (ileus now noted) Assessment and Plan (1) Acute renal failure Current Visit: Yes Status: Acute Code(s): N17.9 - ACUTE KIDNEY FAILURE, UNSPECIFIED SNOMED Code(s): 91361142 (2) Drug rash Current Visit: Yes Status: Acute Code(s): L27.0 - GEN SKIN ERUPTION DUE TO D RUGS AND MEDS TAKEN INTERNALLY SNOMED Code(s): 34376576 (3) UTI (lower urinary tract infection) Narrative/Plan: 73-year-old woman who has a history of prior stroke with some expressive aphasia presents to Hospital with increasing abdominal pain. She was in the outpatient setting with concern for urinary tract infection and was treated with a course of trimethoprim sulfamethoxazole. She now has increasing abdominal pain is d eveloped evidence of generalized rash. The rash appears to be a classic drug eruption and the Bactrim has been discontinued. She now being treated with Vanco and cefepime till further culture data is available. She has had computed tomography scan of the abdomen as well as an ultrasound that shows evidence of bilateral hydronephrosis without evidence of significant etiology of this difficulty. Her pain control is somewhat better at this time. Chest x-ray is negative. Influenza testing was negative given her high-grade fever. At this time cultures are process which further help direct her course of antibiotic therapy. She may need urological evaluation given evidence of bilateral hydronephrosis of undetermined etiology. 05/29/2019 the patient is continuing to have ongoing abdominal pain. She's been seen by urology as well as general surgery. There is concerns for potential gastrointestinal etiology of her abdominal pain and constantly antibiotic therapy was altered to Zosyn from Rocephin. Urine cultures are pending. Blood cultures are pending but negative so far. She does have the abnormality that has been noticed on the computed tomography scan and ultrasound of bilateral hydronephrosis without significant hydroureter. Etiology is not clear but concern to underlying infectious etiology. We'll continue Zosyn for now pending further culture results. Further evaluation as requested by surgery and surgical plan is not yet clarified. 05/30/2019 patient's abdominal pain is improved. Tolerating antibiotic therapy well without further fever or chill. Patient does complain of some restless leg unclear if this is something new or related to treatment of her Parkinson's. The patient's x-ray shows evidence of some likely early ileus likely responsible for her abdominal pain. She does seem to be improved today compared to yesterday. Continue current antibiotic therapy and monitor. Current Visit: No Status: Acute Code(s): N39.0 - URINARY TRACT INFECTION, SITE NOT SPECIFIED SNOMED Code(s): 7838153 (4) Fever Current Visit: Yes Status: Acute Code(s): R50.9 - FEVER, UNSPECIFIED SNOMED Code(s): 075786935
[2019-05-31] MEDS: SODIUM CHLORIDE 0.9% 1,000 ML IV SCH ×2 (06:07→21:36)
[2019-05-31] MEDS: PIPERACILLIN-TAZOBACTAM 3.375 GM in SODIUM CHLORIDE 0.9% 100 ML IVPB SCH ×2 (06:08→17:17)
[2019-05-31] MEDS: LEVOTHYROXINE 75 MCG TAB PO SCH (06:15)
[2019-05-31] MEDS: PANTOPRAZOLE 40 MG TABLET PO SCH ×2 (06:15→17:31)
[2019-05-31] MEDS: MIDODRINE 5 MG TAB PO SCH ×3 (06:15→19:59)
[2019-05-31 07:13] LABS: Calcium 7.8 mg/dL (8.4-10.2); Magnesium 1.6 mg/dL (1.6-2.3); Potassium 4.9 mmol/L (3.5-5.1)
[2019-05-31] MEDS: IPRATROPIUM-ALBUTEROL 3 ML NEB INHALATION SCH ×4 (08:03→20:00)
[2019-05-31] MEDS: ACETAMINOPHEN TAB 325 MG TAB PO PRN (10:05)
[2019-05-31] MEDS: ALLOPURINOL 100 MG TAB PO SCH ×2 (10:07→21:41)
[2019-05-31] MEDS: PRAVASTATIN SODIUM 80 MG TAB PO SCH (10:07)
[2019-05-31] MEDS: SODIUM BICARBONATE TAB 650 MG TAB PO SCH ×2 (10:07→21:41)
[2019-05-31] MEDS: CARBIDOPA-LEVODOPA 25-100 MG 1 EACH TAB PO SCH ×4 (10:08→21:41)
[2019-05-31] MEDS: CLOTRIMAZOLE 1% CREAM 15 GM TUBE TOPICAL SCH ×2 (10:12→21:43)
[2019-05-31] MEDS: PRAMIPEXOLE 1 MG TAB PO SCH (10:13)
[2019-05-31] MEDS ORDERED: BISACODYL 10 MG SUPP RECTAL STA (11:18)
--- NOTE | 2019-05-31 12:21 | P.PN ---
<Kendra Roberts Jamin - Last Filed: 05/31/19 12:19> Subjective Progress Note Date: 05/31/19 CHIEF COMPLAINT: Possible perforated colon HISTORY OF PRESENT ILLNESS: Patient examined at the bedside this morning. Patient reports improvement in abdominal pain. Denies nausea or vomiting. Tolerating diet. Passing flatus. Reports no BM since Wednesday. at bedside and verifies this information. No documented BM. PHYSICAL EXAM: VITAL SIGNS: Reviewed. GENERAL: Well-developed in no acute distress but appears uncomfortable. HEENT: No sclera icterus. Extraocular movements grossly intact. Moist buccal mucosa. Head is atraumatic, normocephalic. ABDOMEN: Obese. Soft. Nondistended. Nontender. No signs of peritonitis. Positive bowel sounds. NEUROLOGIC: Awake and alert. Cranial nerves II through XII grossly intact. SKIN: Generalized maculopapular rash ASSESSMENT: 1. Abdominal pain 2. Sepsis, patient with fever and hypotension 3. Recent urinary tract infection 4. Constipation PLAN: Dulcolax suppository 1 Magnesium citrate x 1 No surgical intervention recommended Nurse practitioner note has been reviewed by physician. Signing provider agrees with the documented findings, assessment, and plan of care. Objective - Vital Signs Vital signs: Vital Signs Temp 98.5 F 05/31/19 03:59 Pulse 86 05/31/19 11:58 Resp 18 05/31/19 04:00 BP 112/57 05/31/19 03:59 Pulse Ox 96 05/31/19 03:59 Intake & Output 05/30/19 05/31/19 05/31/19 18:59 06:59 18:59 Intake Total 600 800 120 Output Total 1950 Balance 600 -1150 120 Weight 123 kg Intake: IV 800 0.9 800 Oral 600 120 Output: Urine 1950 Other: Voiding Method Indwelling Catheter Indwelling Catheter # Voids 0 # Bowel Movements 0 - Labs CBC & Chem 7: 05/30/19 06:08 05/31/19 06:32 Labs: Abnormal Lab Results - Last 24 Hours (Table) 05/30/19 05/31/19 Range/Units 17:00 06:32 Potassium 5.2 H (3.5-5.1) mmol/L Chloride 113 H (98-107) mmol/L Carbon Dioxide 20 L (22-30) mmol/L BUN 47 H (7-17) mg/dL Creatinine 2.88 H (0.52-1.04) mg/dL Calcium 7.8 L (8.4-10.2) mg/dL Microbiology - Last 24 Hours (Table) 05/29/19 21:35 Urine Culture - Final Urine,Voided 05/27/19 18:01 Blood Culture - Preliminary Blood No Growth after 72 hours 05/28/19 14:39 Blood Culture - Preliminary Blood No Growth after 48 hours 05/28/19 13:00 Blood Culture - Preliminary Blood No Growth after 48 hours <Rigo Oleary - Last Filed: 05/31/19 18:28> Subjective As above. Patient doing well. Denies pain at this time. Passing flatus. Tolerating diet. Last bowel movement 5 days ago. Will prescribe one bottle magnesium citrate. Continue workup for the patient's fevers. No surgical intervention planned. We'll sign off. Please call if needed. Objective - Vital Signs Vital signs: Vital Signs Temp 98.7 F 05/31/19 12:00 Pulse 85 05/31/19 16:00 Resp 19 05/31/19 16:00 BP 152/74 05/31/19 16:00 Pulse Ox 98 05/31/19 16:00 Intake & Output 05/30/19 05/31/19 05/31/19 18:59 06:59 18:59 Intake Total 600 800 330 Output Total 1950 1000 Balance 600 -1150 -670 Weight 123 kg Intake: IV 800 0.9 800 Oral 600 330 Output: Urine 1950 1000 Other: Voiding Method Indwelling Catheter Indwelling Catheter Indwelling Catheter # Voids 0 # Bowel Movements 0 0 - Labs CBC & Chem 7: 05/30/19 06:08 05/31/19 06:32 Labs: Abnormal Lab Results - Last 24 Hours (Table) 05/31/19 Range/Units 06:32 Chloride 113 H (98-107) mmol/L Carbon Dioxide 20 L (22-30) mmol/L BUN 47 H (7-17) mg/dL Creatinine 2.88 H (0.52-1.04) mg/dL Calcium 7.8 L (8.4-10.2) mg/dL Microbiology - Last 24 Hours (Table) 05/28/19 14:39 Blood Culture - Preliminary Blood No Growth after 72 hours 05/28/19 13:00 Blood Culture - Preliminary Blood No Growth after 72 hours 05/29/19 21:35 Urine Culture - Final Urine,Voided 05/27/19 18:01 Blood Culture - Preliminary Blood No Growth after 72 hours
[2019-05-31] MEDS ORDERED: MAGNESIUM CITRATE 296 ML BOTTLE PO ONE (12:30)
--- NOTE | 2019-05-31 13:47 | P.PN ---
Subjective Patient is seen in follow-up for acute kidney injury on chronic kidney disease. Patient has chronic kidney disease stage III. Baseline creatinine in the range of 1.2-1.5 secondary to nephrosclerosis. Creatinine peaked at 3.85 this admission and is down to 2.88 today. She has a Bueno catheter for urinary retention. She is nonoliguric. Oral intake is fair. Denies chest pain or shortness of breath. Vital signs are stable. General: The patient appeared well nourished and normally developed. HEENT: Head exam is unremarkable. Neck is without jugular venous distension. Erythema noted. LUNGS: Lungs are clear to auscultation and percussion. Breath sounds decreased. HEART: Rate and Rhythm are regular. First and second heart sounds normal. No murmurs, rubs or gallops. ABDOMEN: Abdominal exam reveals normal bowel sounds. Non-tender and non- distended. No evidence of peritonitis. EXTREMITITES: Trace edema. Objective - Vital Signs Vital signs: Vital Signs Temp 98.5 F 05/31/19 03:59 Pulse 86 05/31/19 11:58 Resp 18 05/31/19 04:00 BP 112/57 05/31/19 03:59 Pulse Ox 96 05/31/19 03:59 Intake & Output 05/30/19 05/31/19 05/31/19 18:59 06:59 18:59 Intake Total 600 800 120 Output Total 1950 Balance 600 -1150 120 Weight 123 kg Intake: IV 800 0.9 800 Oral 600 120 Output: Urine 1950 Other: Voiding Method Indwelling Catheter Indwelling Catheter # Voids 0 # Bowel Movements 0 - Labs CBC & Chem 7: 05/30/19 06:08 05/31/19 06:32 Labs: Abnormal Lab Results - Last 24 Hours (Table) 05/30/19 05/31/19 Range/Units 17:00 06:32 Potassium 5.2 H (3.5-5.1) mmol/L Chloride 113 H (98-107) mmol/L Carbon Dioxide 20 L (22-30) mmol/L BUN 47 H (7-17) mg/dL Creatinine 2.88 H (0.52-1.04) mg/dL Calcium 7.8 L (8.4-10.2) mg/dL Microbiology - Last 24 Hours (Table) 05/29/19 21:35 Urine Culture - Final Urine,Voided 05/27/19 18:01 Blood Culture - Preliminary Blood No Growth after 72 hours 05/28/19 14:39 Blood Culture - Preliminary Blood No Growth after 48 hours 05/28/19 13:00 Blood Culture - Preliminary Blood No Growth after 48 hours Assessment and Plan Plan: Assessment: 1. Acute kidney injury secondary to ATN secondary to hypotension as well as Bactrim which will impair creatinine secretion. Also concern for obstructive uropathy. Creatinine peaked at 3.85 this admission and is 2.88 today. Need to also rule out ALLERGIC interstitial nephritis. Trace proteinuria on UA. 2. Bilateral hydronephrosis. Urology following. Consider cystoscopy. 3. Hyperkalemia secondary to acute kidney injury and metabolic acidosis. Bactrim as well as lisinopril will raise potassium level also. Better. 4. Metabolic acidosis secondary to acute kidney injury as well as IV fluids. Better. 5. Hypotension. Better. Cortisol level normal. 6. Chronic kidney disease stage III with baseline creatinine in the range of 1.2-1.5 secondary to nephrosclerosis. 7. Urinary retention. Currently has Bueno catheter. 8. Hypomagnesemia due to poor oral intake. Plan: Maintain normal saline at 100 mL an hour. Maintain oral sodium bicarbonate. Low potassium diet. Continue midodrine. Avoid nephrotoxins. Check urine eosinophils. Replace magnesium. 2 g IV today. Repeat electrolytes in the morning.
[2019-05-31] MEDS: TRIAMCINOLONE ACET 0.1% OINTMENT 15 GM TUBE TOPICAL SCH ×2 (13:57→21:41)
--- NOTE | 2019-05-31 14:18 | XR ---
2 view abdomen HISTORY: Abdomen pain 2 views of the abdomen on 3 images correlated prior exam 05/30/2019 Lung bases are clear. Surgical clips present right upper quadrant. Gas-filled loops of small and larg e bowel are noted. Multiple calcifications in the pelvis likely represent phleboliths. No evident pne umoperitoneum. There are overlying cardiac leads. Air-filled stomach is noted. IMPRESSION: Findings could represent ileus or gastroenteritis. No evident bowel obstruction. Follow-u p as indicated.
[2019-05-31] MEDS: MAGNESIUM SULFATE-D5W PMX 1 GM in DEXTROSE/WATER 1 100ML.BAG IVPB SCH ×2 (17:17→18:40)
[2019-06-01] MEDS: SODIUM CHLORIDE 0.9% 1,000 ML IV SCH ×2 (03:30→10:30)
[2019-06-01] MEDS: MIDODRINE 5 MG TAB PO SCH ×3 (06:23→15:23)
[2019-06-01] MEDS: PANTOPRAZOLE 40 MG TABLET PO SCH ×2 (06:25→18:39)
[2019-06-01] MEDS: LEVOTHYROXINE 75 MCG TAB PO SCH (06:25)
[2019-06-01] MEDS: PIPERACILLIN-TAZOBACTAM 3.375 GM in SODIUM CHLORIDE 0.9% 100 ML IVPB SCH ×3 (06:26→23:17)
[2019-06-01 06:58] LABS: Calcium 8.3 mg/dL (8.4-10.2); Magnesium 2.3 mg/dL (1.6-2.3); Potassium 5.1 mmol/L (3.5-5.1)
[2019-06-01] MEDS: IPRATROPIUM-ALBUTEROL 3 ML NEB INHALATION SCH ×4 (07:56→20:00)
[2019-06-01] MEDS: PRAVASTATIN SODIUM 80 MG TAB PO SCH (09:55)
[2019-06-01] MEDS: CARBIDOPA-LEVODOPA 25-100 MG 1 EACH TAB PO SCH ×4 (09:55→20:14)
[2019-06-01] MEDS: ALLOPURINOL 100 MG TAB PO SCH ×2 (09:55→20:14)
[2019-06-01] MEDS: SODIUM BICARBONATE TAB 650 MG TAB PO SCH ×2 (09:55→20:14)
[2019-06-01] MEDS: PRAMIPEXOLE 1 MG TAB PO SCH (09:55)
[2019-06-01] MEDS: TRIAMCINOLONE ACET 0.1% OINTMENT 15 GM TUBE TOPICAL SCH ×2 (09:56→20:14)
[2019-06-01] MEDS: CLOTRIMAZOLE 1% CREAM 15 GM TUBE TOPICAL SCH ×2 (09:58→20:15)
--- NOTE | 2019-06-01 11:07 | P.PN ---
Subjective Patient is seen in follow-up for acute kidney injury on chronic kidney disease. Patient has chronic kidney disease stage III with baseline creatinine in the range of 1.2-1.5 secondary to nephrosclerosis. Creatinine peaked at 3.85 this admission and is down to 1.68 today. She has a Bueno catheter for urinary retention. She is nonoliguric. Oral intake is fair. Denies chest pain or shortness of breath. Vital signs are stable. General: The patient appeared well nourished and normally developed. HEENT: Head exam is unremarkable. Neck is without jugular venous distension. Erythema noted. LUNGS: Lungs are clear to auscultation and percussion. Breath sounds decreased. HEART: Rate and Rhythm are regular. First and second heart sounds normal. No murmurs, rubs or gallops. ABDOMEN: Abdominal exam reveals normal bowel sounds. Non-tender and non- distended. No evidence of peritonitis. EXTREMITITES: Trace edema. Objective - Vital Signs Vital signs: Vital Signs Temp 98.3 F 06/01/19 07:50 Pulse 84 06/01/19 08:08 Resp 18 06/01/19 07:50 BP 150/74 06/01/19 07:50 Pulse Ox 94 L 06/01/19 07:59 Intake & Output 05/31/19 06/01/19 06/01/19 18:59 06:59 18:59 Intake Total 330 120 Output Total 1000 1425 Balance -670 -1425 120 Weight 121 kg Intake: Oral 330 120 Output: Urine 1000 1425 Other: Voiding Method Indwelling Catheter Indwelling Catheter Indwelling Catheter # Voids 0 # Bowel Movements 0 1 1 - Labs CBC & Chem 7: 05/30/19 06:08 06/01/19 06:10 Labs: Abnormal Lab Results - Last 24 Hours (Table) 06/01/19 Range/Units 06:10 Chloride 114 H (98-107) mmol/L BUN 32 H (7-17) mg/dL Creatinine 1.68 H (0.52-1.04) mg/dL Glucose 101 H (74-99) mg/dL Calcium 8.3 L (8.4-10.2) mg/dL Microbiology - Last 24 Hours (Table) 05/27/19 18:01 Blood Culture - Preliminary Blood No Growth after 96 hours 05/28/19 14:39 Blood Culture - Preliminary Blood No Growth after 72 hours 05/28/19 13:00 Blood Culture - Preliminary Blood No Growth after 72 hours Assessment and Plan Plan: Assessment: 1. Acute kidney injury secondary to ATN secondary to hypotension as well as Bactrim which will impair creatinine secretion. Also concern for obstructive uropathy. Creatinine peaked at 3.85 this admission and is 1.68 today. Need to also rule out ALLERGIC interstitial nephritis. Trace proteinuria on UA. 2. Bilateral hydronephrosis. Urology following. Consider cystoscopy. 3. Hyperkalemia secondary to acute kidney injury and metabolic acidosis. Bactrim as well as lisinopril will raise potassium level also. Better. 4. Metabolic acidosis secondary to acute kidney injury as well as IV fluids. Better. 5. Hypotension. Better. Cortisol level normal. 6. Chronic kidney disease stage III with baseline creatinine in the range of 1.2-1.5 secondary to nephrosclerosis. 7. Urinary retention. Currently has Bueno catheter. 8. Hypomagnesemia due to poor oral intake. Improved post replacement. Plan: Decrease normal saline to 50 mL an hour. Maintain oral sodium bicarbonate. Low potassium diet. Avoid nephrotoxins. Follow-up urine eosinophils. Repeat electrolytes in the morning.
--- NOTE | 2019-06-01 18:19 | P.PN ---
Subjective Progress Note Date: 06/01/19 This is a 73-year-old white female well-known to me. 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 So her history is difficult to get. Per the ER doctor and one unable to get from Leena herself, she been having 1 week history of not feeling well. She indicates some epigastric area as the source of her abdominal pain. Said that's been going on she hasn't had any symptoms other than a fever, and a rash started 1 day ago. She's been on Bactrim for an unspecified amount of time.. I try to call her at this point but he was not home. Leena also indicates that she is developed a rash decided started yesterday. This is to her thoracic and lumbar back. She indicates it does not really itch. I really was not able to elicit much more history from Leena her self. But certainly she is rarely ill and usually comes in the office immediately for upper respiratory tract infections other illnesses. Does have a history of hypertension and depression along with Parkinson's. She usually ambulates with a walker at home, but needs a wheelchair for any significant distances. She is obviously not herself attain appears quite distress. Her MAXIMUM TEMPERATURE is currently 101.4F 05/29/2019 T-max 100.8, normal WBC. No bowel movement since Wednesday per patient. Early this morning patient developed hypotension, blood pressure into the 70s, received fluid bolus with IV fluids increased. Systolic blood pressure currently up into the high 80s. Renal function worsening, creatinine 2.9. Staff reports no urine output this morning, presented with wet pull up this afternoon. Potassium initially reported as 6.2, repeated-5.3. 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 Maintained on IV antibiotics of Rocephin. Silvadene to foot. Upon Dr. Santiago's abdominal exam, patient can barely tolerate light touch-refer to assessment below. Urgent surgery consult initiated. 05/30/2019 antibiotics further adjusted yesterday, T-max of 100.6, normal WBC. Hyperactive bowel sounds. Continues to report left lower quadrant/periumbilical abdominal pain, nausea, no emesis. Abdominal x-ray pending. Creatinine continues to worsen, 3.85. Evaluated by nephrology with recommendations noted and appreciated. Bedside swallow eval in progress as patient had a choking sensation with breakfast. Hemoglobin 9.9. Evaluated by nephrology, recommendations noted. 05/31/2019 abdominal pain continues to improve. Diet intake improving. Denies nausea vomiting or diarrhea. Reports passing flatus, but no bowel movement. creatinine continues to improve, 2.88. Abdominal x-ray completed yesterday reporting nonspecific abdomen, possible ileus or partial obstruction. Tmax 99.3. Significant weakness, two person assist, subacute rehab discussed; patient declining. Objective - Vital Signs Vital signs: Vital Signs Temp 98.5 F 05/31/19 03:59 Pulse 86 05/31/19 08:13 Resp 18 05/31/19 04:00 BP 112/57 05/31/19 03:59 Pulse Ox 96 05/31/19 03:59 Intake & Output 05/30/19 05/31/19 05/31/19 18:59 06:59 18:59 Intake Total 600 800 120 Output Total 1950 Balance 600 -1150 120 Weight 123 kg Intake: IV 800 0.9 800 Oral 600 120 Output: Urine 1950 Other: Voiding Method Indwelling Catheter Indwelling Catheter # Voids 0 # Bowel Movements 0 - Exam GENERAL: Morbidly obese white female appears to be in pain ,perspiring. Shaking head"yes to pain." HEAD: Atraumatic, normocephalic. Face reddened. ENT:nares patent, oropharynx clear without exudates. Moist mucous membranes. NECK: Normal range of motion, supple without lymphadenopathy or JVD, no thyromegaly LUNGS: Breath sounds coarse to auscultation bilaterally and equal. No rales or rhonchi. Occasional expiratory wheezing HEART: Regular rate and rhythm without murmurs, rubs or gallops.S1S2 Normal ABDOMEN: Soft, nondistended, Minimal tenderness, no rebound. No masses appreciated. Positive bowel sounds EXTREMITIES: Normal range of motion, no pitting or edema. No clubbing or cyanosis. There is some erythema to the inner webspace between the second and third toe on the dorsum of her left foot. NEUROLOGICAL: Cranial nerves II through XII grossly intact. Her speech is consistent with expressive aphasia. She also has some minimal left-sided weakness. PSYCH: Normal mood, normal affect. SKIN: Dry, flaky in the face. - Labs CBC & Chem 7: 05/30/19 06:08 06/01/19 06:10 Labs: Abnormal Lab Results - Last 24 Hours (Table) 05/30/19 05/31/19 Range/Units 17:00 06:32 Potassium 5.2 H (3.5-5.1) mmol/L Chloride 113 H (98-107) mmol/L Carbon Dioxide 20 L (22-30) mmol/L BUN 47 H (7-17) mg/dL Creatinine 2.88 H (0.52-1.04) mg/dL Calcium 7.8 L (8.4-10.2) mg/dL Microbiology - Last 24 Hours (Table) 05/29/19 21:35 Urine Culture - Final Urine,Voided 05/27/19 18:01 Blood Culture - Preliminary Blood No Growth after 72 hours 05/28/19 14:39 Blood Culture - Preliminary Blood No Growth after 48 hours 05/28/19 13:00 Blood Culture - Preliminary Blood No Growth after 48 hours Assessment and Plan Assessment: - -Abdominal pain, etiology unclear ruling out partial SBO, perforated diverticulum, ileus. -Sepsis present on admission, etiology unclear -Hypotension secondary to the above, rule out adrenal insufficiency -Hypoxic respiratory failure -Hyperkalemia secondary to acute renal failure, medication induced-ALISON inhibitor, Bactrim, metabolic acidosis (1) Acute on chronic renal failure III, secondary to nephrosclerosis, baseline 1.2-1.5 Current Visit: Yes Status: Acute Code(s): N17.9 - ACUTE KIDNEY FAILURE, UNSPECIFIED SNOMED Code(s): 64056583 (2) Hydronephrosis with possible obstructive uropathy. Current Visit: Yes Status: Acute Code(s): N13.30 - UNSPECIFIED HYDRONEPHROSIS SNOMED Code(s): 61348835 (3) Parkinson disease Current Visit: Yes Status: Acute Code(s): G20 - PARKINSON'S DISEASE SNOMED Code(s): 39695078 (4) Debility Current Visit: Yes Status: Acute Code(s): R53.81 - OTHER MALAISE SNOMED Code(s): 95358776 (5) Essential (primary) hypertension Current Visit: Yes Status: Acute Code(s): I10 - ESSENTIAL (PRIMARY) HYPERTENSION SNOMED Code(s): 09113274 (6) Pure hypercholesterolemia Current Visit: Yes Status: Acute Code(s): E78.00 - PURE HYPERCHOL ESTEROLEMIA, UNSPECIFIED SNOMED Code(s): 832235148 (7) SIRS (systemic inflammatory response syndrome) Current Visit: Yes Status: Acute Code(s): R65.10 - SIRS OF NON-INFECTIOUS ORIGIN W/O ACUTE ORGAN DYSFUNCTION SNOMED Code(s): 433957943 (8) Cellulitis, toe Current Visit: No Status: Acute Code(s): L03.039 - CELLULITIS OF UNSPECIFIED TOE SNOMED Code(s): 85816376 (9) History of cerebrovascular accident Current Visit: No Status: Acute Code(s): Z86.73 - PRSNL HX OF TIA (TIA), AND CEREB INFRC W/O RESID DEFICITS SNOMED Code(s): 449654215 (10) Drug rash Current Visit: Yes Status: Acute Code(s): L27.0 - GEN SKIN ERUPTION DUE TO DRUGS AND MEDS TAKEN INTERNALLY SNOMED Code(s): 31764367 (11) metabolic acidosis secondary to acute renal failure Plan: Continue on current medication regime ,PPI,monitoring and symptomatic treatment. F/U Abdominal x-ray pending. Dulcolax and mag citrate ordered per surgery. Maintain IV fluids, nebulized bronchodilators. Close monitoring of renal function, electrolytes with repeat labs ordered for a.m. prognosis guarded and multiple complex medical issues. The impression and plan of care has been dictated as directed. : I performed a history and examination of this patient, discussed the same with the dictator. I agree with the dictator's note ,documented as a scribe. Any additional findings or plans will be noted.
[2019-06-01 23:59] VITALS: RESP 18
[2019-06-02] MEDS: PANTOPRAZOLE 40 MG TABLET PO SCH (06:09)
[2019-06-02] MEDS: LEVOTHYROXINE 75 MCG TAB PO SCH (06:09)
[2019-06-02] MEDS: MIDODRINE 5 MG TAB PO SCH ×3 (06:09→18:00)
[2019-06-02] MEDS: IPRATROPIUM-ALBUTEROL 3 ML NEB INHALATION SCH ×3 (07:48→16:01)
--- NOTE | 2019-06-02 08:20 | P.PN ---
Subjective Patient is seen in follow-up for acute kidney injury on chronic kidney disease. Patient has chronic kidney disease stage III with baseline creatinine in the range of 1.2-1.5 secondary to nephrosclerosis. Creatinine peaked at 3.85 this admission and was down to 1.68 as of yesterday. She has a Bueno catheter for urinary retention. She is nonoliguric. Oral intake is fair. Denies chest pain or shortness of breath. She has no IV access. Vital signs are stable. General: The patient appeared well nourished and normally developed. HEENT: Head exam is unremarkable. Neck is without jugular venous distension. Erythema noted. LUNGS: Lungs are clear to auscultation and percussion. Breath sounds decreased. HEART: Rate and Rhythm are regular. First and second heart sounds normal. No murmurs, rubs or gallops. ABDOMEN: Abdominal exam reveals normal bowel sounds. Non-tender and non- distended. No evidence of peritonitis. EXTREMITITES: Trace edema. Objective - Vital Signs Vital signs: Vital Signs Temp 98.9 F 06/02/19 03:20 Pulse 88 06/02/19 07:58 Resp 18 06/02/19 03:20 BP 163/76 06/02/19 03:20 Pulse Ox 90 L 06/02/19 03:20 Intake & Output 06/01/19 06/02/19 06/02/19 18:59 06:59 18:59 Intake Total 240 Output Total 1000 500 Balance -760 -500 Weight 123 kg Intake: Oral 240 Output: Urine 1000 500 Other: Voiding Method Indwelling Catheter Indwelling Catheter # Voids 0 # Bowel Movements 1 - Labs CBC & Chem 7: 05/30/19 06:08 06/01/19 06:10 Labs: Microbiology - Last 24 Hours (Table) 05/27/19 18:01 Blood Culture - Preliminary Blood No Growth after 120 hours 05/28/19 14:39 Blood Culture - Preliminary Blood No Growth after 96 hours 05/28/19 13:00 Blood Culture - Preliminary Blood No Growth after 96 hours Assessment and Plan Plan: Assessment: 1. Acute kidney injury secondary to ATN secondary to hypotension as well as Bactrim which will impair creatinine secretion. Also concern for obstructive uropathy. Creatinine peaked at 3.85 this admission and is down to 1.68 as of yesterday. Urine eosinophils negative. Trace proteinuria on UA. 2. Bilateral hydronephrosis. Urology following. Consider cystoscopy. 3. Hyperkalemia secondary to acute kidney injury and metabolic acidosis. Bactrim as well as lisinopril will raise potassium level also. Stable. 4. Metabolic acidosis secondary to acute kidney injury as well as IV fluids. Better. 5. Hypotension. Resolved. Cortisol level normal. 6. Chronic kidney disease stage III with baseline creatinine in the range of 1.2-1.5 secondary to nephrosclerosis. 7. Urinary retention. Currently has Bueno catheter. 8. Hypomagnesemia due to poor oral intake. Improved post replacement. Plan: No need for IV fluids. Encourage oral intake. Maintain oral sodium bicarbonate. Low potassium diet. Avoid nephrotoxins. Follow-up morning labs.
[2019-06-02 08:37] LABS: Calcium 8.6 mg/dL (8.4-10.2); Magnesium 1.8 mg/dL (1.6-2.3)
[2019-06-02] MEDS: PIPERACILLIN-TAZOBACTAM 3.375 GM in SODIUM CHLORIDE 0.9% 100 ML IVPB SCH ×2 (08:49→16:09)
[2019-06-02] MEDS: PRAMIPEXOLE 1 MG TAB PO SCH (08:50)
[2019-06-02] MEDS: ALLOPURINOL 100 MG TAB PO SCH (08:50)
[2019-06-02] MEDS: SODIUM CHLORIDE 0.9% 1,000 ML IV SCH (08:50)
[2019-06-02] MEDS: PRAVASTATIN SODIUM 80 MG TAB PO SCH (08:51)
[2019-06-02] MEDS: SODIUM BICARBONATE TAB 650 MG TAB PO SCH (08:51)
[2019-06-02] MEDS: CARBIDOPA-LEVODOPA 25-100 MG 1 EACH TAB PO SCH ×2 (08:51→12:53)
[2019-06-02] MEDS: CLOTRIMAZOLE 1% CREAM 15 GM TUBE TOPICAL SCH (08:55)
[2019-06-02 12:40] VITALS: BMI 42.5
[2019-06-02 16:20] VITALS: BP 156/78; PULSE 99; TEMP 98.4
--- NOTE | 2019-06-02 17:28 | P.PN ---
Subjective Progress Note Date: 06/02/19 73 year old woman with history of CVA and persistent difficulty with expressive aphasia presents to ER complaining of abdominal pain which was worsening per the who acts as her historian. She does point to the Abdomen and complains of pain which seems to be of maximum intensity near the epigastrium. It is not related that she's had significant nausea or emesis, there is no hematemesis melena or hematochezia. does not believe that she's had since and diarrhea does have some chronic constipation issues. She does not routinely have complaints of abdominal pain. She recently did have difficulties with a urinary tract infection and with this she was given a course of trimethoprim sul famethoxazole. She did not have any improvement, actually worsened with the increasing abdominal pain and development of the significant maculopapular rash that is starting to improve are ready. She has evidence of an ongoing urinary infection and she's had imaging studies reveal evidence of bilateral hydronephrosis without deepa obstruction being seen. With this the consultation was requested. 05/29/2019 the recent remains with ongoing abdominal pain. As before with her Parkinson's and medical status she is a poor historian but is able to communicate effectively her abdominal pain especially at the epigastric area. Patient's is present. Nursing staff relates to poor urinary output. She's been seen by urology as well as general surgery. Further abdominal x-rays have been requested. Communication was surgery occurred throughout the day and with concerns antibiotic therapy was transition from Rocephin to Zosyn pending further evaluations. 05/30/2019 patient seems to be feeling slightly better. Her abdominal pain does seem to be improved. Initially that she's been able to ingest some nutrition today. Appears to be tolerating antibiotic therapy well. Surgery is following. 06/02/2019 patient is doing somewhat better. She is ready for discharge to home. Abdominal pain is improved. Objective - Vital Signs Vital signs: Vital Signs Temp 98.4 F 06/02/19 16:00 Pulse 92 06/02/19 16:11 Resp 18 06/02/19 16:00 BP 156/78 06/02/19 16:00 Pulse Ox 92 L 06/02/19 16:00 Intake & Output 06/01/19 06/02/19 06/02/19 18:59 06:59 18:59 Intake Total 240 180 Output Total 1000 500 700 Balance -760 -500 -520 Weight 123 kg 123 kg Intake: Oral 240 180 Output: Urine 1000 500 700 Other: Voiding Method Indwelling Catheter Indwelling Catheter Indwelling Catheter # Voids 0 # Bowel Movements 1 - Exam obese 73-year-old woman complains of abdominal pain HEENT: Anicteric conjunctiva are pink and moist nasal mucosa grossly intact without significant lesions, there is no thrush. Neck: The neck is supple without significant lymphadenopathy or thyromegaly. Lungs: Good bilateral air entry without significant crackles or wheezing. There is no significant bronchial sounds. There is no egophony or dullness. Heart: Regular rate and rhythm with an audible S1-S2, no S3 no S4. There is no significant murmur click or rub, PMI was nondisplaced. Abdomen: Positive bowel sounds soft Has evidence of improved abdominal pain . I can palpate no mass there was no guarding or rebound no palpable organomegaly patient has much less tenderness when the epigastrium is palpated. Extremities: The upper extremities have excellent pulses they are symmetric, no significant petechiae or telangiectasia. No splinter hemorrhages were noted. Lower extremities evidence of chronic bilateral lower extremity edema but no open ulceration is seen Neuro: Awake alert oriented to person There are no acute new gross focal se nsory motor deficits. Skin patient has evidence of a fading maculopapular rash, it is not open but she does have evidence of some facial erythema - Labs CBC & Chem 7: 05/30/19 06:08 06/02/19 07:49 Labs: Abnormal Lab Results - Last 24 Hours (Table) 06/02/19 Range/Units 07:49 Chloride 112 H (98-107) mmol/L BUN 18 H (7-17) mg/dL Creatinine 1.14 H (0.52-1.04) mg/dL Glucose 112 H (74-99) mg/dL Microbiology - Last 24 Hours (Table) 05/28/19 14:39 Blood Culture - Preliminary Blood No Growth after 120 hours 05/28/19 13:00 Blood Culture - Preliminary Blood No Growth after 120 hours 05/27/19 18:01 Blood Culture - Preliminary Blood No Growth after 120 hours Laboratory Results WBC 4.3 k/uL (3.8-10.6) 05/30/19 06:08 RBC 3.16 m/uL (3.80-5.40) L 05/30/19 06:08 Hgb 9.9 gm/dL (11.4-16.0) L 05/30/19 06:08 Hct 30.5 % (34.0-46.0) L 05/30/19 06:08 MCV 96.4 fL (80.0-100.0) 05/30/19 06:08 MCH 31.4 pg (25.0-35.0) 05/30/19 06:08 MCHC 32.5 g/dL (31.0-37.0) 05/30/19 06:08 RDW 14.6 % (11.5-15.5) 05/30/19 06:08 Plt Count 50 k/uL (150-450) L 05/30/19 06:08 Neutrophils % 77 % 05/30/19 06:08 Lymphocytes % 10 % 05/30/19 06:08 Monocytes % 4 % 05/30/19 06:08 Eosinophils % 5 % 05/30/19 06:08 Basophils % 0 % 05/30/19 06:08 Neutrophils # 3.3 k/uL (1.3-7.7) 05/30/19 06:08 Lymphocytes # 0.4 k/uL (1.0-4.8) L 05/30/19 06:08 Monocytes # 0.2 k/uL (0-1.0) 05/30/19 06:08 Eosinophils # 0.2 k/uL (0-0.7) 05/30/19 06:08 Basophils # 0.0 k/uL (0-0.2) 05/30/19 06:08 Manual Slide Review Performed 05/27/19 18:01 Hypochromasia (manual) Present 05/27/19 18:01 Anisocytosis (manual) Present 05/27/19 18:01 PT 11.0 sec (9.0-12.0) 05/27/19 18:01 INR 1.0 (<1.2) 05/27/19 18:01 APTT 25.8 sec (22.0-30.0) 05/27/19 18:01 Sodium 142 mmol/L (137-145) 06/02/19 07:49 Potassium 5.0 mmol/L (3.5-5.1) 06/02/19 07:49 Chloride 112 mmol/L (98-107) H 06/02/19 07:49 Carbon Dioxide 26 mmol/L (22-30) 06/02/19 07:49 Anion Gap 4 mmol/L 06/02/19 07:49 BUN 18 mg/dL (7-17) H 06/02/19 07:49 Creatinine 1.14 mg/dL (0.52-1.04) H 06/02/19 07:49 Est GFR (CKD-EPI)AfAm 55 (>60 ml/min/1.73 sqM) 06/02/19 07:49 Est GFR (CKD-EPI)NonAf 48 (>60 ml/min/1.73 sqM) 06/02/19 07:49 Glucose 112 mg/dL (74-99) H 06/02/19 07:49 Plasma Lactic Acid Donell 0.9 mmol/L (0.7-2.0) 05/29/19 14:26 Calcium 8.6 mg/dL (8.4-10.2) 06/02/19 07:49 Magnesium 1.8 mg/dL (1.6-2.3) 06/02/19 07:49 Total Bilirubin 0.3 mg/dL (0.2-1.3) 05/28/19 14:39 AST 51 U/L (14-36) H 05/28/19 14:39 ALT 20 U/L (9-52) 05/28/19 14:39 Alkaline Phosphatase 60 U/L (38-126) 05/28/19 14:39 Troponin I <0.012 ng/mL (0.000-0.034) 05/27/19 18:01 Total Protein 5.4 g/dL (6.3-8.2) L 05/28/19 14:39 Albumin 3.0 g/dL (3.5-5.0) L 05/28/19 14:39 Amylase 36 U/L (30-110) 05/29/19 14:26 Lipase 58 U/L (23-300) 05/29/19 14:26 TSH 0.427 mIU/L (0.465-4.680) L 05/28/19 11:02 Free T4 1.19 ng/dL (0.78-2.19) 05/28/19 11:02 Cortisol 17 ug/dL 05/31/19 06:32 Urine Color Dark Yellow 05/29/19 21:35 Urine Appearance Turbid (Clear) H 05/29/19 21:35 Urine pH 5.0 (5.0-8.0) 05/29/19 21:35 Ur Specific [place] 1.023 (1.001-1.035) 05/29/19 21:35 Urine Protein 1+ (Negative) H 05/29/19 21:35 Urine Glucose (UA) Negative (Negative) 05/29/19 21:35 Urine Ketones Negative (Negative) 05/29/19 21:35 Urine Blood Negative (Negative) 05/29/19 21:35 Urine Nitrite Negative (Negative) 05/29/19 21:35 Urine Bilirubin Negative (Negative) 05/29/19 21:35 Urine Urobilinogen <2.0 mg/dL (<2.0) 05/29/19 21:35 Ur Leukocyte Esterase Negative (Negative) 05/29/19 21:35 Urine RBC 2 /hpf (0-5) 05/27/19 19:50 Urine WBC 28 /hpf (0-5) H 05/29/19 21:35 Ur Squamous Epith Cells 1 /hpf (0-4) 05/29/19 21:35 Urine Bacteria Few /hpf (None) H 05/29/19 21:35 Urine Mucus Rare /hpf (None) H 05/29/19 21:35 Urine Eosinophils 0 % 05/31/19 14:50 Random Vancomycin 16.9 ug/mL 05/29/19 06:37 Influenza Type A RNA Not Detected (Not Detectd) 05/27/19 20:52 Influenza Type B (PCR) Not Detected (Not Detectd) 05/27/19 20:52 Microbiology 05/28/19 14:39 Blood Blood Culture - Preliminary No Growth after 120 hours 05/28/19 13:00 Blood Blood Culture - Preliminary No Growth after 120 hours 05/27/19 18:01 Blood Blood Culture - Preliminary No Growth after 120 hours 05/29/19 21:35 Urine,Voided Urine Culture - Final 05/27/19 19:50 Urine,Catheterized Urine Culture - Final Assessment and Plan (1) Acute renal failure Current Visit: Yes Status: Acute Code(s): N17.9 - ACUTE KIDNEY FAILURE, UNSPECIFIED SNOMED Code(s): 50932872 (2) Drug rash Current Visit: Yes Status: Acute Code(s): L27.0 - GEN SKIN ERUPTION DUE TO DRUGS AND MEDS TAKEN INTERNALLY SNOMED Code(s): 06508646 (3) UTI (lower urinary tract infection) Narrative/Plan: 73-year-old woman who has a history of prior stroke with some expressive aphasia presents to Hospital with increasing abdominal pain. She was in the outpatient setting with concern for urinary tract infection and was treated with a course of trimethoprim sulfamethoxazole. She now has increasing abdominal pain is developed evidence of generalized rash. The rash appears to be a classic drug eruption and the Bactrim has been discontinued. She now being treated with Vanco and cefepime till further culture data is available. She has had computed tomography scan of the abdomen as well as an ultrasound that shows evidence of bilateral hydronephrosis without evidence of significant etiology of this difficulty. Her pain control is somewhat better at this time. Chest x-ray is negative. Influenza testing was negative given her high-grade fever. At this time cultures are process which further help direct her course of antibiotic therapy. She may need urological evaluation given evidence of bilateral hydronephrosis of undetermined etiology. 05/29/2019 the patient is continuing to have ongoing abdominal pain. She's been seen by urology as well as general surgery. There is concerns for potential gastrointestinal etiology of her abdominal pain and constantly antibiotic therapy was altered to Zosyn from Rocephin. Urine cultures are pending. Blood cultures are pending but negative so far. She does have the abnormality that has been noticed on the computed tomography scan and ultrasound of bilateral hydronephrosis without significant hydroureter. Etiology is not clear but concern to underlying infectious etiology. We'll continue Zosyn for now pending further culture results. Further evaluation as requested by surgery and surgical plan is not yet clarified. 05/30/2019 patient's abdominal pain is improved. Tolerating antibiotic therapy well without further fever or chill. Patient does complain of some restless leg unclear if this is something new or related to treatment of her Parkinson's. The patient's x-ray shows evidence of some likely early ileus likely responsible for her abdominal pain. She does seem to be improved today compared to yesterday. Continue current antibiotic therapy and monitor. 06/02/2019 patient has improvement. Is ready for discharge to home. I'll cefuroxime is sent to her pharmacy outpatient therapy for treatment of the urinary tract infection. She seems to be doing somewhat better. Has been seen by nephrology and follow up is planned in the outpatient clinic. No surgical p lans. Current Visit: No Status: Acute Code(s): N39.0 - URINARY TRACT INFECTION, SITE NOT SPECIFIED SNOMED Code(s): 5552527 (4) Fever Current Visit: Yes Status: Acute Code(s): R50.9 - FEVER, UNSPECIFIED SNOMED Code(s): 909452463
== END 2019-06-02 18:28 | disposition home health service (06) | DRG 871 ==
LOC: EC 16:47 → 4SSUR 21:10 → 3SCARD 05-28 15:02
PROVIDERS: ADMIT Family Medicine; ATTEND Family Medicine
DX: A41.9 Sepsis, unspecified organism (principal); N17.0 Acute kidney failure with tubular necrosis; J96.01 Acute respiratory failure with hypoxia; E87.2 Acidosis; I69.354 Hemiplegia and hemiparesis following cerebral infarction affecting left non-dominant side; K56.7 Ileus, unspecified; N13.6 Pyonephrosis; Z68.41 Body mass index [BMI] 40.0-44.9, adult; N39.0 Urinary tract infection, site not specified; E03.9 Hypothyroidism, unspecified; E78.00 Pure hypercholesterolemia, unspecified; E78.5 Hyperlipidemia, unspecified; E83.42 Hypomagnesemia; E87.5 Hyperkalemia; F31.9 Bipolar disorder, unspecified; F41.9 Anxiety disorder, unspecified; G20 Parkinson's disease; L03.032 Cellulitis of left toe; G25.81 Restless legs syndrome; N18.3 Chronic kidney disease, stage 3 (moderate); L27.0 Generalized skin eruption due to drugs and medicaments taken internally; E66.01 Morbid (severe) obesity due to excess calories; K57.90 Diverticulosis of intestine, part unspecified, without perforation or abscess without bleeding; I12.9 Hypertensive chronic kidney disease with stage 1 through stage 4 chronic kidney disease, or unspecified chronic kidney disease; T36.8X5A Adverse effect of other systemic antibiotics, initial encounter; I69.320 Aphasia following cerebral infarction; I69.321 Dysphasia following cerebral infarction; Z79.82 Long term (current) use of aspirin; Z79.890 Hormone replacement therapy; Z79.899 Other long term (current) drug therapy; Z87.891 Personal history of nicotine dependence; Z90.710 Acquired absence of both cervix and uterus; Z88.8 Allergy status to other drugs, medicaments and biological substances
CPT/HCPCS: 36415; 51701; 71045; 74018; 74019; 74176; 76770; 80048; 80053; 80202; 81001; 82150; 82533; 83605; 83690; 83735; 84132; 84439; 84443; 84484; 85025; 85610; 85730; 87040; 87086; 87205; 87502; 93005; 94640; 94760; 96361; 96365; 96366; 96367; 96375; 99285

== ENCOUNTER 2019-06-04 02:55 | Inpatient (IN) | payer MEDICARE ==
[2019-06-04] MEDS ORDERED: NITROGLYCERIN-D5W PMX 50 MG in DEXTROSE/WATER 1 250ML.BAG IV ONE (03:22)
[2019-06-04] MEDS ORDERED: FUROSEMIDE 10 MG/ML 4 ML VIAL IV STA (03:22)
[2019-06-04] MEDS ORDERED: MORPHINE SULFATE 4 MG/ML SYRINGE IV STA (03:22)
[2019-06-04 03:35] LABS: Basophils % (A) 0 %; Eosinophils # (A) 0.3 k/uL (0-0.7); Eosinophils % (A) 6 %; HCT 33.5 % (34.0-46.0); HGB 11.1 gm/dL (11.4-16.0); Lymphocytes # (A) 1.4 k/uL (1.0-4.8); Lymphocytes % (A) 23 %; MCH 31.4 pg (25.0-35.0); MCHC 33.1 g/dL (31.0-37.0); MCV 94.8 fL (80.0-100.0); Monocytes # (A) 0.6 k/uL (0-1.0); Monocytes % (A) 10 %; Neutrophils # (A) 3.5 k/uL (1.3-7.7); Neutrophils % (A) 58 %; RBC 3.53 m/uL (3.80-5.40)
[2019-06-04 03:36] LABS: Platelet Count 132 k/uL (150-450)
[2019-06-04 03:39] LABS: Partial Thromboplastin Time 24.1 sec (22.0-30.0); Prothrombin Time 10.9 sec (9.0-12.0)
[2019-06-04 03:41] LABS: Albumin 3.8 g/dL (3.5-5.0); Calcium 9.2 mg/dL (8.4-10.2); Magnesium 1.4 mg/dL (1.6-2.3); Total Bilirubin 0.8 mg/dL (0.2-1.3); Total Protein 6.3 g/dL (6.3-8.2)
[2019-06-04 03:46] LABS: Potassium 4.6 mmol/L (3.5-5.1)
--- NOTE | 2019-06-04 03:52 | XR ---
EXAM: XR Chest, 1 View CLINICAL HISTORY: dyspnea TECHNIQUE: Frontal view of the chest. COMPARISON: No relevant prior studies available. FINDINGS: Lungs: Mild diffuse reticulonodular interstitial prominence is noted. Pleural space: Unremarkable. No pneumothorax. Heart: Unremarkable. No cardiomegaly. Mediastinum: Subtle prominence of the right hilar structures are presumed vascular. Mild unfolding of thoracic aorta is noted. The trachea is midline. Bones/joints: Unremarkable. IMPRESSION: Mild diffuse reticulonodular interstitial prominence is noted. Differential consideration includes mild pulmonary vascular congestion versus atypical interstitial infection or subtle hypersensitivity pneumonitis. Please correlate clinically. No focal consolidation.
[2019-06-04 03:54] LABS: Appearance,Urine Clear (Clear); Bilirubin,Urine Negative (Negative); Blood,Urine Moderate (Negative); Budding Yeast,Urine Occasional /hpf; Color,Urine Yellow; Glucose,Urine (UA) Negative (Negative); Ketones,Urine Negative (Negative); Leukocyte Esterase,Urine Small (Negative); Mucus,Urine Rare /hpf; Nitrite,Urine Negative (Negative); PH, Urine 5.5 (5.0-8.0); Protein,Urine 1+ (Negative); RBC,Urine 106 /hpf (0-5); Specific Gravity,Urine 1.012 (1.001-1.035); Squamous Epithelial Cell,Urine 1 /hpf (0-4); Urobilinogen,Urine <2.0 mg/dL (<2.0); WBC,Urine 14 /hpf (0-5)
[2019-06-04] MEDS ORDERED: NITROGLYCERIN SL TABS 0.4 MG TAB SUBLINGUAL STA (04:02)
[2019-06-04] MEDS ORDERED: NITROGLYCERIN OINT 1 INCH/GM PACKET TOPICAL STA (04:22)
--- NOTE | 2019-06-04 06:14 | ED ---
SOB HPI - General Chief Complaint: Shortness of Breath Stated Complaint: TEE Time Seen by Provider: 06/04/19 03:06 Source: patient, family, police Mode of arrival: EMS Limitations: physical limitation (Severe dyspnea) - History of Present Illness Initial Comments: This patient is 73-year-old woman with history of recent admission in the hospital for sepsis suspected secondary to urinary tract infection who presents with the acute onset of severe shortness of breath over the course of tonight. The patient is not able to give much history due to severe dyspnea. The patient's phoned EMS as she was not able to catch her breath at home. The patient is able to answer questions yes and no. She denies chest pain. There has been a little bit of a cough without sputum. She has had some leg swelling. MD Complaint: shortness of breath, cough -: hour(s) Severity: severe Severity scale (1-10): 0 Consistency: constant Improves With: nothing Worsens With: lying flat Associated Symptoms: denies other symptoms - Related Data Home Medications Medication Instructions Recorded Confirmed Carbidopa/Levodopa [Parcopa 25-100 1 tab SL QID 09/07/14 06/04/19 mg Odt] Escitalopram Oxalate [Lexapro] 10 mg PO DAILY 09/07/14 06/04/19 Omeprazole [PriLOSEC] 20 mg PO BID 09/07/14 06/04/19 Pravastatin Sodium [Pravachol] 80 mg PO DAILY 09/07/14 06/04/19 Allopurinol [Zyloprim] 100 mg PO BID 09/21/17 06/04/19 Calcitriol [Rocaltrol] 0.25 mcg PO WESA 05/19/19 06/04/19 Ergocalciferol (Vitamin D2) 50,000 unit PO Q14D 05/19/19 06/04/19 [Drisdol] Levothyroxine Sodium [Synthroid] 150 mcg PO DAILY 05/19/19 06/04/19 Pramipexole [Mirapex] 1 mg PO DAILY 05/19/19 06/04/19 Aspirin EC [Ecotrin] 325 mg PO DAILY 05/27/19 06/04/19 Hydrocortisone Oint 1 applic TOPICAL BID 05/27/19 06/04/19 [Hydrocortisone 2.5% Oint] Ketoconazole [Ketoconazole 2%] 1 applic TOPICAL BID 05/27/19 06/04/19 Previous Rx's Medication Instructions Recorded Acetaminophen Tab [Tylenol] 650 mg PO Q6HR PRN tab 06/02/19 Cefuroxime Axetil [Ceftin] 500 mg PO BID #20 tab 06/02/19 SILVER sulfADIAZINE CREAM 1 applic TOPICAL BID #85 g 06/02/19 [Silvadene Cream] Sodium Bicarbonate Tab 1,300 mg PO BID #56 tab 06/02/19 Allergies Allergy/AdvReac Type Severity Reaction Status Date / Time amiodarone [From Cordarone] Allergy Anaphylaxis Verified 06/04/19 07:30 cyclobenzaprine Allergy Rash/Hives Verified 06/04/19 07:30 [From Flexeril] Review of Systems ROS Statement: Those systems with pertinent positive or pertinent negative responses have been documented in the HPI. ROS Other: All systems not noted in ROS Statement are negative. Limitations: ROS unobtainable due to patients medical condition (Severe dyspnea) Constitutional: Denies: fever, chills Respiratory: Reports: cough, dyspnea. Denies: hemoptysis Cardiovascular: Reports: palpitations, edema. Denies: chest pain, syncope Gastrointestinal: Denies: abdominal pain, vomiting, diarrhea Musculoskeletal: Denies: back pain Skin: Denies: rash Neurological: Denies: headache, weakness, numbness Psychiatric: Reports: anxiety 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, hypothyroidism, hypertension, hyperlipidemia, Parkinson's disease, degenerative arthritis, anxiety, depression History of Any Multi-Drug Resistant Organisms: None Reported Past Surgical History: Hysterectomy, Orthopedic Surgery Additional Past Surgical History / Comment(s): Hammer toe surgery, recent infection to toe Past Anesthesia/Blood Transfusion Reactions: No Reported Reaction Past Psychological History: Anxiety, Bipolar, Depression Smoking Status: Former smoker Past Alcohol Use History: None Reported Past Drug Use History: None Reported - Past Family History Father Family Medical History: No Reported History General Exam Limitations: no limitations General appearance: alert, in distress, obese Head exam: Present: atraumatic, normocephalic Eye exam: Present: normal appearance. Absent: scleral icterus, conjunctival injection ENT exam: Present: normal oropharynx Neck exam: Present: normal inspection Respiratory exam: Present: respiratory distress, accessory muscle use. Absent: wheezes, rales, rhonchi Cardiovascular Exam: Present: normal rhythm, tachycardia, gallop. Absent: systolic murmur, diastolic murmur, rubs GI/Abdominal exam: Present: soft. Absent: distended, tenderness, guarding, rebound, mass Extremities exam: Present: normal inspection, normal capillary refill, pedal edema. Absent: calf tenderness Back exam: Present: normal inspection. Absent: CVA tenderness (R), CVA tenderness (L) Neurological exam: Present: alert Skin exam: Present: warm, dry, intact, normal color. Absent: rash Course Vital Signs 06/04/19 06/04/19 06/04/19 03:02 03:07 03:40 Temperature 98.8 F Pulse Rate 96 102 H Respiratory 24 24 20 Rate Blood Pressure 194/107 160/87 O2 Sat by Pulse 97 94 L Oximetry 06/04/19 06/04/19 06/04/19 04:19 05:08 06:05 Temperature Pulse Rate 103 H 96 93 Respiratory 20 20 20 Rate Blood Pressure 138/83 150/89 177/94 O2 Sat by Pulse 94 L 96 96 Oximetry Medical Decision Making - Medical Decision Making This patient is 73-year-old woman presenting with acute severe dyspnea. On a rrival she is markedly hypertensive and her exam consistent with hypertensive crisis and CHF picture. She did have a rapid turnaround with nitrates, morphine, and Lasix and after this treatment does appear to be stable without requiring ICU admission. Case discussed with her physician who will admit and also have cardiology consultation and echocardiogram. - Lab Data Result diagrams: 06/04/19 03:10 06/04/19 03:10 Lab Results 06/04/19 06/04/19 06/04/19 Range/Units 03:10 03:10 03:10 WBC 6.0 (3.8-10.6) k/uL RBC 3.53 L (3.80-5.40) m/uL Hgb 11.1 L (11.4-16.0) gm/dL Hct 33.5 L (34.0-46.0) % MCV 94.8 (80.0-100.0) fL MCH 31.4 (25.0-35.0) pg MCHC 33.1 (31.0-37.0) g/dL RDW 14.0 (11.5-15.5) % Plt Count 132 L D (150-450) k/uL Neutrophils % 58 % Lymphocytes % 23 % Monocytes % 10 % Eosinophils % 6 % Basophils % 0 % Neutrophils # 3.5 (1.3-7.7) k/uL Lymphocytes # 1.4 (1.0-4.8) k/uL Monocytes # 0.6 (0-1.0) k/uL Eosinophils # 0.3 (0-0.7) k/uL Basophils # 0.0 (0-0.2) k/uL PT (9.0-12.0) sec INR (<1.2) APTT (22.0-30.0) sec Sodium 140 (137-145) mmol/L Potassium 4.6 (3.5-5.1) mmol/L Chloride 107 (98-107) mmol/L Carbon Dioxide 27 (22-30) mmol/L Anion Gap 6 mmol/L BUN 11 (7-17) mg/dL Creatinine 0.93 (0.52-1.04) mg/dL Est GFR (CKD-EPI)AfAm 71 (>60 ml/min/1.73 sqM) Est GFR (CKD-EPI)NonAf 62 (>60 ml/min/1.73 sqM) Glucose 117 H (74-99) mg/dL Calcium 9.2 (8.4-10.2) mg/dL Magnesium 1.4 L (1.6-2.3) mg/dL Total Bilirubin 0.8 (0.2-1.3) mg/dL AST 22 (14-36) U/L ALT 18 (9-52) U/L Alkaline Phosphatase 85 (38-126) U/L Troponin I (0.000-0.034) ng/mL NT-Pro-B Natriuret Pep 03444 pg/mL Total Protein 6.3 (6.3-8.2) g/dL Albumin 3.8 (3.5-5.0) g/dL Urine Color Urine Appearance (Clear) Urine pH (5.0-8.0) Ur Specific [place] (1.001-1.035) Urine Protein (Negative) Urine Glucose (UA) (Negative) Urine Ketones (Negative) Urine Blood (Negative) Urine Nitrite (Negative) Urine Bilirubin (Negative) Urine Urobilinogen (<2.0) mg/dL Ur Leukocyte Esterase (Negative) Urine RBC (0-5) /hpf Urine WBC (0-5) /hpf Ur Squamous Epith Cells (0-4) /hpf Urine Mucus (None) /hpf Urine Yeast (Budding) (None) /hpf 06/04/19 06/04/19 06/04/19 Range/Units 03:10 03:10 03:40 WBC (3.8-10.6) k/uL RBC (3.80-5.40) m/uL Hgb (11.4-16.0) gm/dL Hct (34.0-46.0) % MCV (80.0-100.0) fL MCH (25.0-35.0) pg MCHC (31.0-37.0) g/dL RDW (11.5-15.5) % Plt Count (150-450) k/uL Neutrophils % % Lymphocytes % % Monocytes % % Eosinophils % % Basophils % % Neutrophils # (1.3-7.7) k/uL Lymphocytes # (1.0-4.8) k/uL Monocytes # (0-1.0) k/uL Eosinophils # (0-0.7) k/uL Basophils # (0-0.2) k/uL PT 10.9 (9.0-12.0) sec INR 1.0 (<1.2) APTT 24.1 (22.0-30.0) sec Sodium (137-145) mmol/L Potassium (3.5-5.1) mmol/L Chloride (98-107) mmol/L Carbon Dioxide (22-30) mmol/L Anion Gap mmol/L BUN (7-17) mg/dL Creatinine (0.52-1.04) mg/dL Est GFR (CKD-EPI)AfAm (>60 ml/min/1.73 sqM) Est GFR (CKD-EPI)NonAf (>60 ml/min/1.73 sqM) Glucose (74-99) mg/dL Calcium (8.4-10.2) mg/dL Magnesium (1.6-2.3) mg/dL Total Bilirubin (0.2-1.3) mg/dL AST (14-36) U/L ALT (9-52) U/L Alkaline Phosphatase (38-126) U/L Troponin I 0.020 (0.000-0.034) ng/mL NT-Pro-B Natriuret Pep pg/mL Total Protein (6.3-8.2) g/dL Albumin (3.5-5.0) g/dL Urine Color Yellow Urine Appearance Clear (Clear) Urine pH 5.5 (5.0-8.0) Ur Specific [place] 1.012 (1.001-1.035) Urine Protein 1+ H (Negative) Urine Glucose (UA) Negative (Negative) Urine Ketones Negative (Negative) Urine Blood Moderate H (Negative) Urine Nitrite Negative (Negative) Urine Bilirubin Negative (Negative) Urine Urobilinogen <2.0 (<2.0) mg/dL Ur Leukocyte Esterase Small H (Negative) Urine RBC 106 H (0-5) /hpf Urine WBC 14 H (0-5) /hpf Ur Squamous Epith Cells 1 (0-4) /hpf Urine Mucus Rare H (None) /hpf Urine Yeast (Budding) Occasional H (None) /hpf - EKG Data -: EKG Interpreted by Tn EKG shows normal: sinus rhythm, axis (Normal), intervals, QRS complexes (Possible old anterolateral infarct), ST-T waves (Normal) Rate: normal (Rate 97 bpm) Critical Care Time Critical Care Time: Yes (30 minutes) Disposition Clinical Impression: Congestive heart failure, Hypertensive emergency Disposition: ADMITTED IP TO THIS [facility] Condition: Serious Is patient prescribed a controlled substance at d/c from ED?: No
[2019-06-04] MEDS ORDERED: METOPROLOL TARTRATE 25 MG TAB PO SCH (06:45)
[2019-06-04] MEDS: FUROSEMIDE 10 MG/ML 4 ML VIAL IV SCH ×2 (07:22→17:42)
[2019-06-04] MEDS ORDERED: MAGNESIUM SULFATE-D5W PMX 1 GM in DEXTROSE/WATER 1 100ML.BAG IVPB ONE (07:24)
[2019-06-04] MEDS ORDERED: NITROGLYCERIN OINT 1 INCH/GM PACKET TOPICAL SCH (09:00)
[2019-06-04] MEDS: PANTOPRAZOLE 40 MG TABLET PO SCH (09:26)
[2019-06-04] MEDS: MAGNESIUM OXIDE 400 MG TAB PO SCH ×2 (09:26→12:12)
[2019-06-04] MEDS: CEFDINIR 300 MG CAP PO SCH ×2 (09:26→19:55)
[2019-06-04] MEDS: ASPIRIN 325 MG TAB PO SCH (09:26)
[2019-06-04] MEDS: CARBIDOPA-LEVODOPA 25-100 MG 1 EACH TAB PO SCH ×4 (09:27→21:47)
[2019-06-04] MEDS: ESCITALOPRAM 10 MG TAB PO SCH (09:27)
[2019-06-04] MEDS: PRAVASTATIN SODIUM 80 MG TAB PO SCH ×2 (09:27→12:12)
[2019-06-04] MEDS: ALLOPURINOL 100 MG TAB PO SCH ×2 (09:27→19:55)
[2019-06-04] MEDS: LEVOTHYROXINE 75 MCG TAB PO SCH (09:27)
[2019-06-04] MEDS ORDERED: METOPROLOL TARTRATE 25 MG TAB PO STA (10:00)
--- NOTE | 2019-06-04 10:27 | P.HPIM ---
History of Present Illness H&P Date: 06/04/19 Chief Complaint: Shortness of breath This 73-year-old female known to the practice was recently discharged from [facility] approximately 24 hours ago, subsequently returned with complaint of shortness of breath. Patient has diminished breath sounds bilater ally scattered rhonchi bilaterally. BNP was 11,300. Previous admission patient presented with a sepsis-like pattern that that resolved with IV antibiotics and IV fluids. Patient has had history of CVA with expressive aphasia Review of Systems Constitutional: Reports fatigue, Reports weakness Ears, nose, mouth and throat: Reports as per HPI Cardiovascular: Reports high blood pressure, Reports shortness of breath Respiratory: Reports congestion, Reports cough, Reports wheezing Gastrointestinal: Reports as per HPI Genitourinary: Reports as per HPI Menstruation: Reports postmenopausal Musculoskeletal: Reports as per HPI Integumentary: Reports dryness Neurological: Reports aphasia, Reports memory loss Psychiatric: Reports anxiety Endocrine: Reports as per HPI Hematologic/Lymphatic: Reports as per HPI 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, hypothyroidism, hypertension, hyperlipidemia, Parkinson's disease, degenerative arthritis, anxiety, depression History of Any Multi-Drug Resistant Organisms: None Reported Past Surgical History: Hysterectomy, Orthopedic Surgery Additional Past Surgical History / Comment(s): Hammer toe surgery, recent infection to toe Past Anesthesia/Blood Transfusion Reactions: No Reported Reaction Past Psychological History: Anxiety, Bipolar, Depression Smoking Status: Former smoker Past Alcohol Use History: None Reported Past Drug Use History: None Reported - Past Family History Father Family Medical History: No Reported History Medications and Allergies Home Medications Medication Instructions Recorded Confirmed Type Carbidopa/Levodopa [Parcopa 25-100 1 tab SL QID 09/07/14 06/04/19 History mg Odt] Escitalopram Oxalate [Lexapro] 10 mg PO DAILY 09/07/14 06/04/19 History Omeprazole [PriLOSEC] 20 mg PO BID 09/07/14 06/04/19 History Pravastatin Sodium [Pravachol] 80 mg PO DAILY 09/07/14 06/04/19 History Allopurinol [Zyloprim] 100 mg PO BID 09/21/17 06/04/19 History Calcitriol [Rocaltrol] 0.25 mcg PO WESA 05/19/19 06/04/19 History Ergocalciferol (Vitamin D2) 50,000 unit PO Q14D 05/19/19 06/04/19 History [Drisdol] Levothyroxine Sodium [Synthroid] 150 mcg PO DAILY 05/19/19 06/04/19 History Pramipexole [Mirapex] 1 mg PO DAILY 05/19/19 06/04/19 History Aspirin EC [Ecotrin] 325 mg PO DAILY 05/27/19 06/04/19 History Hydrocortisone Oint 1 applic TOPICAL BID 05/27/19 06/04/19 History [Hydrocortisone 2.5% Oint] Ketoconazole [Ketoconazole 2%] 1 applic TOPICAL BID 05/27/19 06/04/19 History Acetaminophen Tab [Tylenol] 650 mg PO Q6HR PRN tab 06/02/19 06/04/19 Rx Cefuroxime Axetil [Ceftin] 500 mg PO BID #20 tab 06/02/19 06/04/19 Rx SILVER sulfADIAZINE CREAM 1 applic TOPICAL BID #85 g 06/02/19 06/04/19 Rx [Silvadene Cream] Sodium Bicarbonate Tab 1,300 mg PO BID #56 tab 06/02/19 06/04/19 Rx Allergies Allergy/AdvReac Type Severity Reaction Status Date / Time amiodarone [From Cordarone] Allergy Anaphylaxis Verified 06/04/19 07:30 cyclobenzaprine Allergy Rash/Hives Verified 06/04/19 07:30 [From Flexeril] Physical Exam Osteopathic Statement: *. No significant issues noted on an osteopathic structural exam other than those noted in the History and Physical/Consult. Vitals: Vital Signs Temp Pulse Pulse Resp BP BP Pulse Ox 06/04/19 08:20 98.2 F 95 18 181/89 94 L 06/04/19 06:05 93 20 177/94 96 06/04/19 05:08 96 20 150/89 96 06/04/19 04:19 103 H 20 138/83 94 L 06/04/19 03:40 102 H 20 160/87 94 L 06/04/19 03:07 24 06/04/19 03:02 98.8 F 96 24 194/107 97 Intake and Output 06/03/19 06/04/19 06/04/19 22:59 06:59 14:59 Other: Weight 97.976 kg General: [Patient awake, alert and oriented times 3. Patient in no acute distress. Expressive aphasia HEENT: [PERRL. EOMI. No pharyngeal erythema or exudate.] Neck: [No adenopathy. Cardiac: [Heart regular in rate and rhythm. No S3. No S4. No clicks, rubs. No murmur. Lungs: Coarse breath sounds, scattered rhonchi bilaterally and basilar expirational wheezes Abdomen: No mass. No organomegaly. Bowel sounds presnt and normoactive in all 4 quadrants. Extremes: No edema no cyanosis no claudication normal pulses] : [] Musculoskeletal: [No joint erythema, edema or tenderness.] Skin: Dry flaky Neurologic: [No lateralizing deficits. CN II - XII grossly intact.] Lymphatic: [No adenopathy.] Results CBC & Chem 7: 06/04/19 03:10 06/04/19 03:10 Labs: Abnormal Lab Results - Last 24 Hours (Table) 06/04/19 06/04/19 06/04/19 Range/Units 03:10 03:10 03:40 RBC 3.53 L (3.80-5.40) m/uL Hgb 11.1 L (11.4-16.0) gm/dL Hct 33.5 L (34.0-46.0) % Plt Count 132 L D (150-450) k/uL Glucose 117 H (74-99) mg/dL Magnesium 1.4 L (1.6-2.3) mg/dL Urine Protein 1+ H (Negative) Urine Blood Moderate H (Negative) Ur Leukocyte Esterase Small H (Negative) Urine RBC 106 H (0-5) /hpf Urine WBC 14 H (0-5) /hpf Urine Mucus Rare H (None) /hpf Urine Yeast (Budding) Occasional H (None) /hpf Chest x-ray: report reviewed Assessment and Plan (1) Congestive heart failure Current Visit: Yes Status: Acute Code(s): I50.9 - HEART FAILURE, UNSPECIFIED SNOMED Code(s): 85592747 Plan: Congestive heart failure optimize medical management Uncontrolled hypertension, and hydralazine 25 mg 1 by mouth twice daily Diuresis Cardiology consult Rehab placement We'll reevaluate in the morning Time with Patient: Greater than 30
[2019-06-04] MEDS: hydrALAZINE HCL 25 MG TAB PO SCH ×2 (12:12→19:55)
[2019-06-04] MEDS: amLODIPine 10 MG TAB PO SCH (12:12)
--- NOTE | 2019-06-04 13:32 | P.CRDCN ---
History of Present Illness History of present illness: This is a pleasant 73-year-old female past medical history significant for hypertension, dyslipidemia, CVA with left-sided residual weakness and expressive aphasia and Parkinson's disease. She follows in the office with Dr. Pond. We have been asked to see her in consultation secondary to heart failure. She was discharged from the hospital on Wednesday when she was treated for sepsis. She states she took her blood pressure last evening and it was over 200 systolic. On last admission she suffered an acute kidney injury and hypotension causing antihypertensive therapy to be discontinued. She also describes ongoing shortness of breath. She denies symptoms of chest discomfort however she does have upper abdominal epigastric pain and fullness. She also states she has been coughing and is unable to clear her secretions. She has been trying to take stool softeners at home secondary to constipation. EKG reveals sinus mechanism with poor R-wave progression, no acute ST or T wave abnormalities noted. Chest x-ray reveals diffuse with tic douloureux nodule or social prominence, pulmonary vascular congestion consider possible atypical interstitial infection or pneumonitis. Laboratory data reviewed, WBC 6, hemoglobin 11.1, platelets 132, sodium 140, potassium 4.6, creatinine 0.93, magnesium 1.4, cardiac enzymes negative 2, NT proBNP 11,300. Current cardiac medications include aspirin 325 mg daily and pravastatin 80 mg daily. Most recent echocardiogram obtained March 2019 reveals preserved LV systolic function with ejection fraction 55-60%. At the time of my exam: CONSTITUTIONAL: Denies fever. Denies chills. EYES: Denies blurred vision. Denies vision changes. Denies eye pain. EARS, NOSE, MOUTH & THROAT: Denies headache. Denies sore throat. Denies ear pain. CARDIOVASCULAR: Denies chest pain. Complains of shortness of breath. Denies orthopnea. Denies PND. Denies palpitations. RESPIRATORY: Complains of cough, unable to clear secretions. GASTROINTESTINAL: Complains of upper abdominal discomfort. Denies diarrhea. Complains of constipation. Complains of nausea. Denies vomiting. MUSCULOSKELETAL: Denies myalgias. INTEGUMENTARY: Denies pruitis. Denies rash. NEUROLOGIC: Denies numbness. Denies tingling. Denies weakness. PSYCHIATRIC: Denies anxiety. Denies depression. ENDOCRINE: Denies fatigue. Denies weight change. Denies polydipsia. Denies polyurina. GENITOURINARY: Denies burning, hematuria or urgency with micturation. HEMATOLOGIC: Denies history of anemia. Denies bleeding. Blood pressure 181/89 heart rate 95 afebrile maintaining oxygen saturation on nasal cannula GENERAL: This is a 73-year-old female in no apparent distress at the time of my examination. Obese. HEENT: Head is atraumatic, normocephalic. Pupils are equal, round. Sclerae anicteric. Conjunctivae are clear. Mucous membranes of the mouth are moist. Neck is supple. There is no jugular venous distention. No carotid bruit is heard. Garbled speech. LUNGS: Scattered rhonchi, faint expirtory wheezes. No rales. No chest wall tenderness is noted on palpation or with deep breathing. HEART: Regular rate and rhythm without murmurs, rubs or gallops. S1 and S2 heard. ABDOMEN: Soft, nontender. Bowel sounds are heard. No organomegaly noted. EXTREMITIES: Trace bilateral lower extremity edema and no calf tenderness noted. VASCULAR: Radial and dorsalis pedis pulses palpated, no evidence of clubbing. NEUROLOGIC: Patient is awake, alert and oriented x3. ASSESSMENT Acute on chronic diastolic heart failure Hypertension, uncontrolled Abdominal discomfort and constipation with recent diagnosis of ileus History of recent kidney injury Dyslipidemia History of CVA Parkinson's disease PLAN Continue IV diuresis with Lasix 40 mg twice a day. Follow renal function and electrolytes closely. Initiate on amlodipine 10 mg daily and Lopressor 50 mg twice a day. Repeat 2-D echocardiogram and Doppler study to assess cardiac structure and function. Documented accurate intake and output along with daily weight. Further evaluation of abdominal discomfort and possible ileus per primary care team. Thank you kindly for this consultation, we will continue to follow make recommendations accordingly. Nurse Practitioner note has been reviewed, I agree with a documented findings a nd plan of care. Patient was seen and examined. 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, hypothyroidism, hypertension, hyperlipidemia, Parkinson's disease, degenerative arthritis, anxiety, depression History of Any Multi-Drug Resistant Organisms: None Reported Past Surgical History: Hysterectomy, Orthopedic Surgery Additional Past Surgical History / Comment(s): Hammer toe surgery, recent infection to toe Past Anesthesia/Blood Transfusion Reactions: No Reported Reaction Past Psychological History: Anxiety, Bipolar, Depression Smoking Status: Former smoker Past Alcohol Use History: None Reported Past Drug Use History: None Reported - Past Family History Father Family Medical History: No Reported History Medications and Allergies Home Medications Medication Instructions Recorded Confirmed Type Carbidopa/Levodopa [Parcopa 25-100 1 tab SL QID 09/07/14 06/04/19 History mg Odt] Escitalopram Oxalate [Lexapro] 10 mg PO DAILY 09/07/14 06/04/19 History Omeprazole [PriLOSEC] 20 mg PO BID 09/07/14 06/04/19 History Pravastatin Sodium [Pravachol] 80 mg PO DAILY 09/07/14 06/04/19 History Allopurinol [Zyloprim] 100 mg PO BID 09/21/17 06/04/19 History Calcitriol [Rocaltrol] 0.25 mcg PO WESA 05/19/19 06/04/19 History Ergocalciferol (Vitamin D2) 50,000 unit PO Q14D 05/19/19 06/04/19 History [Drisdol] Levothyroxine Sodium [Synthroid] 150 mcg PO DAILY 05/19/19 06/04/19 History Pramipexole [Mirapex] 1 mg PO DAILY 05/19/19 06/04/19 History Aspirin EC [Ecotrin] 325 mg PO DAILY 05/27/19 06/04/19 History Hydrocortisone Oint 1 applic TOPICAL BID 05/27/19 06/04/19 History [Hydrocortisone 2.5% Oint] Ketoconazole [Ketoconazole 2%] 1 applic TOPICAL BID 05/27/19 06/04/19 History Acetaminophen Tab [Tylenol] 650 mg PO Q6HR PRN tab 06/02/19 06/04/19 Rx Cefuroxime Axetil [Ceftin] 500 mg PO BID #20 tab 06/02/19 06/04/19 Rx SILVER sulfADIAZINE CREAM 1 applic TOPICAL BID #85 g 06/02/19 06/04/19 Rx [Silvadene Cream] Sodium Bicarbonate Tab 1,300 mg PO BID #56 tab 06/02/19 06/04/19 Rx Allergies Allergy/AdvReac Type Severity Reaction Status Date / Time amiodarone [From Cordarone] Allergy Anaphylaxis Verified 06/04/19 07:30 cyclobenzaprine Allergy Rash/Hives Verified 06/04/19 07:30 [From Flexeril] Physical Exam Vitals: Vital Signs Temp Pulse Resp BP Pulse Ox 06/04/19 06:05 93 20 177/94 96 06/04/19 05:08 96 20 150/89 96 06/04/19 04:19 103 H 20 138/83 94 L 06/04/19 03:40 102 H 20 160/87 94 L 06/04/19 03:07 24 06/04/19 03:02 98.8 F 96 24 194/107 97 Intake and Output 06/03/19 06/04/19 06/04/19 22:59 06:59 14:59 Other: Weight 97.976 kg Results 06/04/19 03:10 06/04/19 03:10 Cardiac Enzymes 06/04/19 06/04/19 Range/Units 03:10 03:10 AST 22 (14-36) U/L Troponin I 0.020 (0.000-0.034) ng/mL Coagulation 06/04/19 Range/Units 03:10 PT 10.9 (9.0-12.0) sec APTT 24.1 (22.0-30.0) sec CBC 06/04/19 Range/Units 03:10 WBC 6.0 (3.8-10.6) k/uL RBC 3.53 L (3.80-5.40) m/uL Hgb 11.1 L (11.4-16.0) gm/dL Hct 33.5 L (34.0-46.0) % Plt Count 132 L D (150-450) k/uL Comprehensive Metabolic Panel 06/04/19 Range/Units 03:10 Sodium 140 (137-145) mmol/L Potassium 4.6 (3.5-5.1) mmol/L Chloride 107 (98-107) mmol/L Carbon Dioxide 27 (22-30) mmol/L BUN 11 (7-17) mg/dL Creatinine 0.93 (0.52-1.04) mg/dL Glucose 117 H (74-99) mg/dL Calcium 9.2 (8.4-10.2) mg/dL AST 22 (14-36) U/L ALT 18 (9-52) U/L Alkaline Phosphatase 85 (38-126) U/L Total Protein 6.3 (6.3-8.2) g/dL Albumin 3.8 (3.5-5.0) g/dL Current Medications Generic Name Dose Route Start Last Admin Trade Name Freq PRN Reason Stop Dose Admin Acetaminophen 650 mg 06/04/19 06:09 Tylenol Tab PO Q6HR PRN Mild Pain or Fever > 100.5 Allopurinol 100 mg 06/04/19 09:00 Zyloprim PO BID [facility] Aspirin 325 mg 06/04/19 09:00 Aspirin PO DAILY [facility] Calcitriol 0.25 mcg 06/07/19 09:00 Rocaltrol PO WESA [facility] Carbidopa/Levodopa 1 each 06/04/19 09:00 Sinemet 25-100 PO QID [facility] Cefdinir 300 mg 06/04/19 09:00 Omnicef PO BID [facility] Escitalopram Oxalate 10 mg 06/04/19 09:00 Lexapro PO DAILY [facility] Furosemide 40 mg 06/04/19 06:15 06/04/19 07:22 Lasix IV Not Given Q12H [facility] Levothyroxine Sodium 150 mcg 06/04/19 07:00 Synthroid PO DAILY@0630 [facility] Magnesium Oxide 400 mg 06/04/19 09:00 Mag-Ox PO DAILY [facility] Metoprolol Tartrate 25 mg 06/04/19 06:45 Lopressor PO Q12HR [facility] Nitroglycerin 0.5 inch 06/04/19 09:00 Nitro-Bid Oint TOPICAL QID [facility] Pantoprazole Sodium 40 mg 06/04/19 07:30 Protonix PO AC-BRKFST [facility] Pramipexole Dihydrochloride 1 mg 06/04/19 09:00 Mirapex PO DAILY [facility] Pravastatin Sodium 80 mg 06/04/19 09:00 Pravachol PO DAILY [facility] Sodium Chloride 10 ml 06/04/19 09:00 Saline Flush IV BID [facility] Intake and Output 06/03/19 06/04/19 06/04/19 22:59 06:59 14:59 Other: Weight 97.976 kg 06/04/19 03:10 06/04/19 03:10
[2019-06-04 14:14] VITALS: BMI 33.8
[2019-06-04] MEDS: PRAMIPEXOLE 1 MG TAB PO SCH (17:42)
[2019-06-04] MEDS: METOPROLOL TARTRATE 50 MG TAB PO SCH (19:55)
[2019-06-04] MEDS: SODIUM BICARBONATE TAB 650 MG TAB PO SCH (20:02)
[2019-06-04] MEDS: HYDROCORTISONE 1% OINT 28.35 GM TUBE TOPICAL SCH (21:47)
[2019-06-05] MEDS: LEVOTHYROXINE 75 MCG TAB PO SCH (06:12)
[2019-06-05] MEDS: PANTOPRAZOLE 40 MG TABLET PO SCH (06:12)
[2019-06-05] MEDS: FUROSEMIDE 10 MG/ML 4 ML VIAL IV SCH ×2 (06:12→17:41)
[2019-06-05 08:03] LABS: Potassium 5.3 mmol/L (3.5-5.1)
[2019-06-05 08:07] LABS: Basophils % (A) 0 %; Eosinophils # (A) 0.1 k/uL (0-0.7); Eosinophils % (A) 2 %; HCT 31.7 % (34.0-46.0); HGB 10.2 gm/dL (11.4-16.0); Lymphocytes # (A) 1.4 k/uL (1.0-4.8); Lymphocytes % (A) 18 %; MCH 30.4 pg (25.0-35.0); MCHC 32.1 g/dL (31.0-37.0); MCV 94.9 fL (80.0-100.0); Mean Platelet Volume 8.7; Monocytes # (A) 0.7 k/uL (0-1.0); Monocytes % (A) 9 %; Neutrophils # (A) 5.4 k/uL (1.3-7.7); Neutrophils % (A) 68 %; Platelet Count 184 k/uL (150-450); RBC 3.34 m/uL (3.80-5.40); RDW 14.2 % (11.5-15.5)
[2019-06-05] MEDS: ESCITALOPRAM 10 MG TAB PO SCH (09:41)
[2019-06-05] MEDS: METOPROLOL TARTRATE 50 MG TAB PO SCH ×2 (09:41→20:29)
[2019-06-05] MEDS: CARBIDOPA-LEVODOPA 25-100 MG 1 EACH TAB PO SCH ×4 (09:41→21:45)
[2019-06-05] MEDS: SODIUM BICARBONATE TAB 650 MG TAB PO SCH ×2 (09:41→20:29)
[2019-06-05] MEDS: hydrALAZINE HCL 25 MG TAB PO SCH ×2 (09:42→20:29)
[2019-06-05] MEDS: ALLOPURINOL 100 MG TAB PO SCH ×2 (09:42→20:29)
[2019-06-05] MEDS: CEFDINIR 300 MG CAP PO SCH ×2 (09:42→20:29)
[2019-06-05] MEDS: ASPIRIN 325 MG TAB PO SCH (09:42)
[2019-06-05] MEDS: PRAMIPEXOLE 1 MG TAB PO SCH (09:42)
[2019-06-05] MEDS: MAGNESIUM OXIDE 400 MG TAB PO SCH (09:42)
[2019-06-05] MEDS: amLODIPine 10 MG TAB PO SCH (09:42)
[2019-06-05] MEDS: PRAVASTATIN SODIUM 80 MG TAB PO SCH (09:42)
[2019-06-05] MEDS: HYDROCORTISONE 1% OINT 28.35 GM TUBE TOPICAL SCH ×2 (09:43→20:30)
--- NOTE | 2019-06-05 11:14 | ECHOF ---
Referral Reason:cp MEASUREMENTS -------- HEIGHT: 170.2 cm WEIGHT: 98.0 kg BP: 144/67 RVIDd: 3.5 cm (< 3.3) IVSd: 1.5 cm (0.6 - 1.1) LVIDd: 3.5 cm (3.9 - 5.3) LVPWd: 1.4 cm (0.6 - 1.1) IVSs: 2.4 cm LVIDs: 2.5 cm LVPWs: 2.5 cm LAESV Index (A-L): 26.14 ml/m Ao Diam: 3.2 cm (2.0 - 3.7) AV Cusp: 1.8 cm (1.5 - 2.6) MV E Alex: 0.45 m/s MV DecT: 300 ms MV A Alex: 0.79 m/s MV E/A Ratio: 0.56 RAP: 5.00 mmHg RVSP: 22.84 mmHg FINDINGS -------- Sinus rhythm. This was a technically difficult study with suboptimal views. There is moderate concentric left ventricular hypertrophy. Overall left ventricular systolic functi on is normal with, an EF between 55 - 60 %. The diastolic filling pattern is normal for the age of the patient 6.20. The right ventricle is mildly enlarged. Normal LA size by volume 22+/-6 ml/m2. The right atrium was not well visualized. 5.0mg of Lumason was utilized for enhancement of images Interatrial and interventricular septum intact. There is mild aortic valve sclerosis. There is no evidence of aortic regurgitation. There is no e vidence of aortic stenosis. There is trace mitral regurgitation. Mild tricuspid regurgitation present. There is no evidence of pulmonary hypertension. The right v entricular systolic pressure, as measured by Doppler, is 22.84mmHg. There is no pulmonic regurgitation present. The aortic root size is normal. IVC Not well visulized. There is no pericardial effusion. CONCLUSIONS -------- 1. Sinus rhythm. 2. This was a technically difficult study with suboptimal views. 3. There is moderate concentric left ventricular hypertrophy. 4. Overall left ventricular systolic function is normal with, an EF between 55 - 60 %. 5. The diastolic filling pattern is normal for the age of the patient 6.20 6. The right ventricle is mildly enlarged. 7. Normal LA size by volume 22+/-6 ml/m2. 8. The right atrium was not well visualized. 9. 5.0mg of Lumason was utilized for enhancement of images 10. Interatrial and interventricular septum intact. 11. There is mild aortic valve sclerosis. 12. There is no evidence of aortic regurgitation. 13. There is no evidence of aortic stenosis. 14. There is trace mitral regurgitation. 15. Mild tricuspid regurgitation present. 16. There is no evidence of pulmonary hypertension. 17. The right ventricular systolic pressure, as measured by Doppler, is 22.84mmHg. 18. There is no pulmonic regurgitation present. 19. The aortic root size is normal. 20. IVC Not well visulized. 21. There is no pericardial effusion. DELICATESSEN CLERK: Maru Ott RDCS
--- NOTE | 2019-06-05 16:25 | P.PN ---
Subjective Progress Note Date: 06/05/19 This is a pleasant 73-year-old female past medical history significant for hypertension, dyslipidemia, CVA with left-sided residual weakness and expressive aphasia and Parkinson's disease. She follows in the office with Dr. Pond. We have been asked to see her in consultation secondary to heart failure. Patient was seen and examined this morning, diuresed well through the night last night, her weight is down a total of 8 pounds. She continues to diurese. Still on IV Lasix 40 mg twice a day. Blood pressure 144/67 with a heart rate in the 70s, 94% on 2 L of oxygen. White blood cell count 8.0, hemoglobin 10.2, platelet count 184. Sodium 139, potassium 5.3, BUN 21 and creatinine 1.1. Objective - Vital Signs Vital signs: Vital Signs Temp 98.8 F 06/05/19 12:15 Pulse 68 06/05/19 12:15 Resp 19 06/05/19 12:15 BP 158/77 06/05/19 12:15 Pulse Ox 90 L 06/05/19 12:15 Intake & Output 06/04/19 06/05/19 06/05/19 18:59 06:59 18:59 Intake Total 622 600 480 Output Total 500 1100 1200 Balance 122 -500 -720 Weight 97.976 kg Intake: Oral 622 600 480 Output: Urine 500 1100 1200 Other: Voiding Method Indwelling Catheter Indwelling Catheter - Exam GENERAL: This is a 73-year-old female in no apparent distress at the time of my examination. Obese. HEENT: Head is atraumatic, normocephalic. Pupils are equal, round. Sclerae anicteric. Conjunctivae are clear. Mucous membranes of the mouth are moist. Neck is supple. There is no jugular venous distention. No carotid bruit is heard. Garbled speech. LUNGS: Scattered rhonchi, faint expirtory wheezes. No rales. No chest wall tenderness is noted on palpation or with deep breathing. HEART: Regular rate and rhythm without murmurs, rubs or gallops. S1 and S2 heard. ABDOMEN: Soft, nontender. Bowel sounds are heard. No organomegaly noted. EXTREMITIES: Trace bilateral lower extremity edema and no calf tenderness noted. VASCULAR: Radial and dorsalis pedis pulses palpated, no evidence of clubbing. NEUROLOGIC: Patient is awake, alert and oriented x3. - Labs CBC & Chem 7: 06/05/19 06:40 06/05/19 06:40 Labs: Abnormal Lab Results - Last 24 Hours (Table) 06/05/19 06/05/19 Range/Units 06:40 06:40 RBC 3.34 L (3.80-5.40) m/uL Hgb 10.2 L (11.4-16.0) gm/dL Hct 31.7 L (34.0-46.0) % Potassium 5.3 H (3.5-5.1) mmol/L BUN 21 H (7-17) mg/dL Creatinine 1.10 H (0.52-1.04) mg/dL Glucose 146 H (74-99) mg/dL Assessment and Plan Plan: ASSESSMENT and plan #1 Acute on chronic diastolic heart failure #2 Hypertension, uncontrolled #3 Abdominal discomfort and constipation with recent diagnosis of ileus #4 History of recent kidney injury #5Dyslipidemia #6 History of CVA #7 Parkinson's disease Plan From cardiology's perspective, we'll recommend to continue the patient on current dose of IV Lasix, continue to monitor intake and output along with daily weights and daily lytes BUN and creatinine. DNP note has been reviewed, I agree with a documented findings and plan of care. Patient was seen and examined.
--- NOTE | 2019-06-05 18:10 | P.PN ---
Subjective Progress Note Date: 06/05/19 This 73-year-old female known to the practice was recently discharged from [facility] approximately 24 hours ago, subsequently returned with complaint of shortness of breath. Patient has diminished breath sounds bilaterally scattered rhonchi bilaterally. BNP was 11,300. Previous admission patient presented with a sepsis-like pattern that that resolved with IV antibiotics and IV fluids. Patient has had history of CVA with expressive aphasia 06/05/2019 diuresing well on Lasix IV push with 24-hour I&O reflecting a negative fluid balance. Creatinine up to 1.1. Reporting EF 55-60%. Norvasc and Lopressor had been added on yesterday to med regime with improvement in blood pressure with systolic blood pressures ranging from 130s to 160s. Objective - Vital Signs Vital signs: Vital Signs Temp 98.7 F 06/05/19 08:30 Pulse 74 06/05/19 08:30 Resp 19 06/05/19 08:30 BP 162/82 06/05/19 08:30 Pulse Ox 96 06/05/19 08:30 Intake & Output 06/04/19 06/05/19 06/05/19 18:59 06:59 18:59 Intake Total 622 600 360 Output Total 500 1100 Balance 122 -500 360 Weight 97.976 kg Intake: Oral 622 600 360 Output: Urine 500 1100 Other: Voiding Method Indwelling Catheter Indwelling Catheter - Exam General: [Patient awake, alert and oriented times 3, sitting up in chair, no acute distress. Expressive aphasia HEENT: [PERRL. EOMI. No pharyngeal erythema or exudate.] Neck: [No adenopathy. Cardiac: [Heart regular in rate and rhythm. No S3. No S4. No clicks, rubs. No murmur. Lungs: Coarse breath sounds, no rhonchi rhonchi, bilaterally basilar expirational wheezes Abdomen: No mass. No organomegaly. Bowel sounds presnt and normoactive in all 4 quadrants. Extremes: trace edema no cyanosis no claudication normal pulses.] Musculoskeletal: [No joint erythema, edema or tenderness.] Skin: Dry flaky Neurologic: [No lateralizing deficits. CN II - XII grossly intact.Her speech is consistent with expressive aphasia, chronic residual left-sided weakness. ] Lymphatic: [No adenopathy.] - Labs CBC & Chem 7: 06/05/19 06:40 06/05/19 06:40 Labs: Abnormal Lab Results - Last 24 Hours (Table) 06/05/19 06/05/19 Range/Units 06:40 06:40 RBC 3.34 L (3.80-5.40) m/uL Hgb 10.2 L (11.4-16.0) gm/dL Hct 31.7 L (34.0-46.0) % Potassium 5.3 H (3.5-5.1) mmol/L BUN 21 H (7-17) mg/dL Creatinine 1.10 H (0.52-1.04) mg/dL Glucose 146 H (74-99) mg/dL Assessment and Plan Assessment: -acute on chronic Congestive heart failure, diastolic dysfunction -Hypertension, uncontrolled -Recent ileus -chronic renal failure III, secondary to nephrosclerosis, baseline 1.2-1.5 -Parkinson's disease Plan: Continue on current medication regime ,monitoring and symptomatic treatment. Continue diuresing with close monitoring of renal function. Close monitoring of renal function, electrolytes with repeat labs ordered for a.m. Case management assisting with discharge planning to subacute rehab. Further recommendations to follow. The impression and plan of care has been dictated as directed. : I performed a history and examination of this patient, discussed the same with the dictator. I agree with the dictator's note ,documented as a scribe. Any additional findings or plans will be noted.
[2019-06-05] MEDS: ACETAMINOPHEN TAB 325 MG TAB PO PRN (21:45)
[2019-06-06 06:38] LABS: Basophils % (A) 1 %; Eosinophils # (A) 0.3 k/uL (0-0.7); Eosinophils % (A) 4 %; HCT 31.9 % (34.0-46.0); HGB 10.1 gm/dL (11.4-16.0); Lymphocytes # (A) 1.6 k/uL (1.0-4.8); Lymphocytes % (A) 25 %; MCH 30.6 pg (25.0-35.0); MCHC 31.8 g/dL (31.0-37.0); MCV 96.2 fL (80.0-100.0); Monocytes # (A) 0.6 k/uL (0-1.0); Monocytes % (A) 10 %; Neutrophils # (A) 3.6 k/uL (1.3-7.7); Neutrophils % (A) 57 %; Platelet Count 194 k/uL (150-450); RBC 3.32 m/uL (3.80-5.40); RDW 14.6 % (11.5-15.5); WBC 6.4 k/uL (3.8-10.6)
[2019-06-06] MEDS: PANTOPRAZOLE 40 MG TABLET PO SCH (06:45)
[2019-06-06] MEDS: FUROSEMIDE 10 MG/ML 4 ML VIAL IV SCH ×2 (06:45→17:26)
[2019-06-06] MEDS: LEVOTHYROXINE 75 MCG TAB PO SCH (06:45)
[2019-06-06 07:16] LABS: Calcium 8.9 mg/dL (8.4-10.2)
[2019-06-06 07:18] LABS: Potassium 5.5 mmol/L (3.5-5.1)
[2019-06-06] MEDS: PRAVASTATIN SODIUM 80 MG TAB PO SCH (09:22)
[2019-06-06] MEDS: amLODIPine 10 MG TAB PO SCH (09:22)
[2019-06-06] MEDS: CEFDINIR 300 MG CAP PO SCH ×2 (09:22→20:32)
[2019-06-06] MEDS: CARBIDOPA-LEVODOPA 25-100 MG 1 EACH TAB PO SCH ×4 (09:22→22:32)
[2019-06-06] MEDS: MAGNESIUM OXIDE 400 MG TAB PO SCH (09:22)
[2019-06-06] MEDS: ESCITALOPRAM 10 MG TAB PO SCH (09:22)
[2019-06-06] MEDS: SODIUM BICARBONATE TAB 650 MG TAB PO SCH ×2 (09:22→20:32)
[2019-06-06] MEDS: METOPROLOL TARTRATE 50 MG TAB PO SCH ×2 (09:22→20:32)
[2019-06-06] MEDS: hydrALAZINE HCL 25 MG TAB PO SCH ×2 (09:22→20:32)
[2019-06-06] MEDS: PRAMIPEXOLE 1 MG TAB PO SCH (09:22)
[2019-06-06] MEDS: ASPIRIN 325 MG TAB PO SCH (09:22)
[2019-06-06] MEDS: ALLOPURINOL 100 MG TAB PO SCH ×2 (09:23→20:32)
[2019-06-06] MEDS: HYDROCORTISONE 1% OINT 28.35 GM TUBE TOPICAL SCH ×2 (09:23→20:34)
[2019-06-06] MEDS: ACETAMINOPHEN TAB 325 MG TAB PO PRN (09:23)
--- NOTE | 2019-06-06 10:14 | P.PN ---
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 She follows in the office with Dr. Pond. We have been asked to see her in consultation secondary to heart failure. Patient was seen and examined this morning, diuresed well through the night last night, her weight is down a total of 8 pounds. She continues to diurese. Still on IV Lasix 40 mg twice a day. Blood pressure 144/67 with a heart rate in the 70s, 94% on 2 L of oxygen. White blood cell count 8.0, hemoglobin 10.2, platelet count 184. Sodium 139, potassium 5.3, BUN 21 and creatinine 1.1. 06/06/2019 Patient was seen and examined this morning, sitting up in chair at bedside, she slept well through the night last night, weight is down again today, she continued to diurese well through the night. BloodI pressure this morning 138/68 with a heart rate in the 70s, 96% on 2 L of oxygen. White blood cell count 6.4, hemoglobin 10.1, platelet count 194. Sodium 140, potassium 5.5, BUN 29 and creatinine 1.1. We will continue the patient on current dose of IV Lasix for 24 hours, repeat chest x-ray. Objective - Vital Signs Vital signs: Vital Signs Temp 98.1 F 06/06/19 09:24 Pulse 70 06/06/19 09:24 Resp 18 06/06/19 09:24 BP 138/69 06/06/19 09:24 Pulse Ox 96 06/06/19 09:24 Intake & Output 06/05/19 06/06/19 06/06/19 18:59 06:59 18:59 Intake Total 720 400 360 Output Total 1200 1670 1300 Balance -480 1270 -940 Weight 114.6 kg Intake: Oral 720 400 360 Output: Urine 1200 1670 1300 Other: Voiding Method Indwelling Catheter Indwelling Catheter - Exam GENERAL: This is a 73-year-old female in no apparent distress at the time of my examination. Obese. HEENT: Head is atraumatic, normocephalic. Pupils are equal, round. Sclerae anicteric. Conjunctivae are clear. Mucous membranes of the mouth are moist. Neck is supple. There is no jugular venous distention. No carotid bruit is heard. Garbled speech. LUNGS: Clear to auscultation with fine expiratory wheezing noted . HEART: Regular rate and rhythm without murmurs, rubs or gallops. S1 and S2 heard. ABDOMEN: Soft, nontender. Bowel sounds are heard. No organomegaly noted. EXTREMITIES: Trace bilateral lower extremity edema and no calf tenderness noted. VASCULAR: Radial and dorsalis pedis pulses palpated, no evidence of clubbing. NEUROLOGIC: Patient is awake, alert and oriented x3. - Labs CBC & Chem 7: 06/06/19 05:30 06/06/19 05:30 Labs: Abnormal Lab Results - Last 24 Hours (Table) 06/06/19 06/06/19 Range/Units 05:30 05:30 RBC 3.32 L (3.80-5.40) m/uL Hgb 10.1 L (11.4-16.0) gm/dL Hct 31.9 L (34.0-46.0) % Potassium 5.5 H (3.5-5.1) mmol/L BUN 29 H (7-17) mg/dL Creatinine 1.18 H (0.52-1.04) mg/dL Assessment and Plan Plan: ASSESSMENT and plan #1 Acute on chronic diastolic heart failure #2 Hypertension, uncontrolled #3 Abdominal discomfort and constipation with recent diagnosis of ileus #4 History of recent kidney injury #5Dyslipidemia #6 History of CVA #7 Parkinson's disease Plan From cardiology's perspective, we'll recommend to continue the patient on current dose of IV Lasix, continue to monitor intake and output along with daily weights and daily lytes BUN and creatinine. Repeat chest x-ray. DNP note has been reviewed, I agree with a documented findings and plan of care. Patient was seen and examined.
[2019-06-06] MEDS ORDERED: SODIUM POLYSTYRENE SULFONATE 15 GM/60 ML BOTTLE PO STA (14:21)
[2019-06-06] MEDS: SENNOSIDES-DOCUSATE SODIUM 1 EACH TAB PO SCH ×2 (15:27→20:34)
--- NOTE | 2019-06-06 16:20 | P.PN ---
Subjective Progress Note Date: 06/06/19 This 73-year-old female known to the practice was recently discharged from [facility] approximately 24 hours ago, subsequently returned with complaint of shortness of breath. Patient has diminished breath sounds bilaterally scattered rhonchi bilaterally. BNP was 11,300. Previous admission patient presented with a sepsis-like pattern that that resolved with IV antibiotics and IV fluids. Patient has had history of CVA with expressive aphasia 06/05/2019 diuresing well on Lasix IV push with 24-hour I&O reflecting a negative fluid balance. Creatinine up to 1.1. Reporting EF 55-60%. Norvasc and Lopressor had been added on yesterday to med regime with improvement in blood pressure with systolic blood pressures ranging from 130s to 160s. 06/06/2019 continues to diurese well on Lasix IV push, with 24-hour I&O reflecting a negative fluid balance. Maintaining O2 sats in the high 90s on 2 L nasal cannula. Afebrile, WBC 6.4. Creatinine 1.18, potassium 5.5. Objective - Vital Signs Vital signs: Vital Signs Temp 96.3 F L 06/06/19 11:22 Pulse 77 06/06/19 15:28 Resp 18 06/06/19 15:28 BP 161/72 06/06/19 15:28 Pulse Ox 96 06/06/19 15:28 Intake & Output 06/05/19 06/06/19 06/06/19 18:59 06:59 18:59 Intake Total 720 400 480 Output Total 1200 1670 1300 Balance -480 -1270 -820 Weight 114.6 kg Intake: Oral 720 400 480 Output: Urine 1200 1670 1300 Other: Voiding Method Indwelling Catheter Indwelling Catheter Indwelling Catheter - Exam General: [Patient awake, alert and oriented times 3, sitting up in chair, no acute distress. Expressive aphasia HEENT: [PERRL. EOMI. No pharyngeal erythema or exudate.] Neck: [No adenopathy. Cardiac: [Heart regular in rate and rhythm. No S3. No S4. No clicks, rubs. No murmur. Lungs: Clear breath sounds, no rhonchi, fine basilar expiratory wheezes Abdomen: No mass. No organomegaly. Bowel sounds presnt and normoactive in all 4 quadrants. Extremes: trace edema no cyanosis no claudication normal pulses.] Musculoskeletal: [No joint erythema, edema or tenderness.] Skin: Dry flaky Neurologic: [No lateralizing deficits. CN II - XII grossly intact.Her speech is consistent with expressive aphasia, chronic residual left-sided weakness. ] Lymphatic: [No adenopathy.] - Labs CBC & Chem 7: 06/06/19 05:30 06/06/19 05:30 Labs: Abnormal Lab Results - Last 24 Hours (Table) 06/06/19 06/06/19 Range/Units 05:30 05:30 RBC 3.32 L (3.80-5.40) m/uL Hgb 10.1 L (11.4-16.0) gm/dL Hct 31.9 L (34.0-46.0) % Potassium 5.5 H (3.5-5.1) mmol/L BUN 29 H (7-17) mg/dL Creatinine 1.18 H (0.52-1.04) mg/dL Assessment and Plan Assessment: -acute on chronic Congestive heart failure, diastolic dysfunction -Hypertension, uncontrolled -Recent ileus -chronic renal failure III, secondary to nephrosclerosis, baseline 1.2-1.5 -Parkinson's disease Plan: Continue on current medication regime ,monitoring and symptomatic treatment. Continue diuresing with IV push Lasix as per cardiology with close monitoring of renal function. Kayexalate for K of 5.5, low potassium diet, close monitoring of lites with repeat labs ordered for a.m. .complains of no bowel movement in 2 days, Senokot-S, added to med regime. Discharge planning in progress for tomorrow pending cardiology clearance. The impression and plan of care has been dictated as directed. : I performed a history and examination of this patient, discussed the same with the dictator. I agree with the dictator's note ,documented as a scribe. Any ad ditional findings or plans will be noted.
[2019-06-06] MEDS: LACTULOSE 20 GM/30 ML CUP PO SCH (22:33)
--- NOTE | 2019-06-06 23:26 | XR ---
EXAMINATION: XR chest 2V DATE AND TIME: 06/06/2019 7:41 PM CLINICAL INDICATION: PHH; f/u chf TECHNIQUE: Departmental protocol COMPARISON: 06/04/2019 FINDINGS: The lungs appear to be clear. The pleural spaces are negative. The cardiac silhouette is not enlarged. The skeletal structures and soft tissues are negative for acute findings. IMPRESSION: No definite acute radiographic process.
[2019-06-07] MEDS: LEVOTHYROXINE 75 MCG TAB PO SCH (06:12)
[2019-06-07] MEDS: PANTOPRAZOLE 40 MG TABLET PO SCH (06:12)
[2019-06-07] MEDS: FUROSEMIDE 10 MG/ML 4 ML VIAL IV SCH (06:13)
[2019-06-07 07:46] LABS: Basophils % (A) 1 %; Eosinophils # (A) 0.4 k/uL (0-0.7); Eosinophils % (A) 6 %; HCT 33.1 % (34.0-46.0); HGB 10.4 gm/dL (11.4-16.0); Lymphocytes # (A) 1.4 k/uL (1.0-4.8); Lymphocytes % (A) 19 %; MCHC 31.3 g/dL (31.0-37.0); MCV 98.9 fL (80.0-100.0); Macrocytosis Slight; Mean Platelet Volume 7.9; Monocytes # (A) 0.6 k/uL (0-1.0); Monocytes % (A) 8 %; Neutrophils # (A) 4.6 k/uL (1.3-7.7); Neutrophils % (A) 64 %; Platelet Count 205 k/uL (150-450); RBC 3.34 m/uL (3.80-5.40); RDW 14.6 % (11.5-15.5); WBC 7.2 k/uL (3.8-10.6)
[2019-06-07 07:58] LABS: Calcium 8.3 mg/dL (8.4-10.2); Potassium 3.5 mmol/L (3.5-5.1)
[2019-06-07] MEDS: MAGNESIUM OXIDE 400 MG TAB PO SCH (08:46)
[2019-06-07] MEDS: ESCITALOPRAM 10 MG TAB PO SCH (08:46)
[2019-06-07] MEDS: CEFDINIR 300 MG CAP PO SCH ×2 (08:46→22:54)
[2019-06-07] MEDS: ASPIRIN 325 MG TAB PO SCH (08:46)
[2019-06-07] MEDS: PRAVASTATIN SODIUM 80 MG TAB PO SCH (08:46)
[2019-06-07] MEDS: amLODIPine 10 MG TAB PO SCH (08:46)
[2019-06-07] MEDS: PRAMIPEXOLE 1 MG TAB PO SCH (08:46)
[2019-06-07] MEDS: hydrALAZINE HCL 25 MG TAB PO SCH ×2 (08:46→22:54)
[2019-06-07] MEDS: CARBIDOPA-LEVODOPA 25-100 MG 1 EACH TAB PO SCH ×4 (08:46→22:54)
[2019-06-07] MEDS: ALLOPURINOL 100 MG TAB PO SCH ×2 (08:46→22:54)
[2019-06-07] MEDS: SODIUM BICARBONATE TAB 650 MG TAB PO SCH ×2 (08:46→22:53)
[2019-06-07] MEDS: METOPROLOL TARTRATE 50 MG TAB PO SCH ×2 (08:46→22:54)
[2019-06-07] MEDS: LACTULOSE 20 GM/30 ML CUP PO SCH ×2 (08:47→11:54)
[2019-06-07] MEDS: HYDROCORTISONE 1% OINT 28.35 GM TUBE TOPICAL SCH ×2 (08:47→22:55)
[2019-06-07] MEDS: SENNOSIDES-DOCUSATE SODIUM 1 EACH TAB PO SCH ×2 (08:47→22:55)
[2019-06-07] MEDS ORDERED: CALCITRIOL 0.25 MCG CAP PO SCH (09:00)
--- NOTE | 2019-06-07 11:25 | P.PN ---
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 She follows in the office with Dr. Pond. We have been asked to see her in consultation secondary to heart failure. Patient was seen and examined this morning, diuresed well through the night last night, her weight is down a total of 8 pounds. She continues to diurese. Still on IV Lasix 40 mg twice a day. Blood pressure 144/67 with a heart rate in the 70s, 94% on 2 L of oxygen. White blood cell count 8.0, hemoglobin 10.2, platelet count 184. Sodium 139, potassium 5.3, BUN 21 and creatinine 1.1. 06/06/2019 Patient was seen and examined this morning, sitting up in chair at bedside, she slept well through the night last night, weight is down again today, she continued to diurese well through the night. BloodI pressure this morning 138/68 with a heart rate in the 70s, 96% on 2 L of oxygen. White blood cell count 6.4, hemoglobin 10.1, platelet count 194. Sodium 140, potassium 5.5, BUN 29 and creatinine 1.1. We will continue the patient on current dose of IV Lasix for 24 hours, repeat chest x-ray. 06/07/2019 Patient was seen and examined this morning, breathing is stable, repeat chest x- ray did not show any evidence of congestive cardiac failure. Her weight is down 1 more kilogram today. Blood pressure 136/70 with a heart rate in the 70s, 96% on room air. White blood cell count 7.2, hemoglobin 10.4, platelet count 205. Sodium 139, potassium 3.5, BUN 27 and creatinine 1.2. She is complaining this morning of some right sided abdominal pain, she does have a area of swelling in the right abdominal region, appears to be possibly a hematoma, very tender to touch. Objective - Vital Signs Vital signs: Vital Signs Temp 98.3 F 06/07/19 08:48 Pulse 74 06/07/19 08:48 Resp 19 06/07/19 08:48 BP 137/70 06/07/19 08:48 Pulse Ox 96 06/07/19 08:48 Intake & Output 06/06/19 06/07/19 06/07/19 18:59 06:59 18:59 Intake Total 720 530 130 Output Total 1300 1175 Balance -580 -645 130 Weight 114.6 kg 113.5 kg Intake: IV 30 10 Invasive Line 2 30 10 Oral 720 500 120 Output: Urine 1300 1175 Other: Voiding Method Indwelling Catheter Indwelling Catheter Indwelling Catheter - Exam GENERAL: This is a 73-year-old female in no apparent distress at the time of my examination. Obese. HEENT: Head is atraumatic, normocephalic. Pupils are equal, round. Sclerae anicteric. Conjunctivae are clear. Mucous membranes of the mouth are moist. Neck is supple. There is no jugular venous distention. No carotid bruit is heard. Garbled speech. LUNGS: Clear to auscultation with fine expiratory wheezing noted . HEART: Regular rate and rhythm without murmurs, rubs or gallops. S1 and S2 heard. ABDOMEN: Soft, tenderness in right mid abdominal region, there is an area of swelling noted possible hematoma . Bowel sounds are heard. No organomegaly noted. EXTREMITIES: Trace bilateral lower extremity edema and no calf tenderness noted. VASCULAR: Radial and dorsalis pedis pulses palpated, no evidence of clubbing. NEUROLOGIC: Patient is awake, alert and oriented x3. - Labs CBC & Chem 7: 06/07/19 07:12 06/07/19 07:12 Labs: Abnormal Lab Results - Last 24 Hours (Table) 06/07/19 06/07/19 Range/Units 07:12 07:12 RBC 3.34 L (3.80-5.40) m/uL Hgb 10.4 L (11.4-16.0) gm/dL Hct 33.1 L (34.0-46.0) % Chloride 94 L (98-107) mmol/L Carbon Dioxide 36 H (22-30) mmol/L BUN 27 H (7-17) mg/dL Creatinine 1.20 H (0.52-1.04) mg/dL Glucose 127 H (74-99) mg/dL Calcium 8.3 L (8.4-10.2) mg/dL Assessment and Plan Plan: ASSESSMENT and plan #1 Acute on chronic diastolic heart failure #2 Hypertension, uncontrolled #3 Abdominal discomfort and constipation with recent diagnosis of ileus #4 History of recent kidney injury #5Dyslipidemia #6 History of CVA #7 Parkinson's disease Plan From cardiology's perspective, we will discontinue the IV Lasix and start the patient on Lasix 40 mg one tablet by mouth daily. I also spoke with the primary care nurse practitioner regarding the area of abdominal tenderness and swelling. From our perspective the patient may be discharged home once cleared by primary and we'll make her a follow-up appointment in the office post discharge. DNP note has been reviewed, I agree with a documented findings and plan of care. Patient was seen and examined.
[2019-06-07] MEDS: FUROSEMIDE 40 MG TAB PO SCH (12:04)
--- NOTE | 2019-06-07 13:05 | XR ---
Abdomen HISTORY: Right upper quadrant fullness Frontal view of the abdomen on 2 images correlated to prior abdomen 05/31/2019 Surgical clips again noted in the right upper quadrant. Degenerative disc changes are noted in the penny mbar spine. There are vascular calcifications present. There is no evident obstruction or pneumoperit oneum. Gas distended stomach has resolved in the interval. Lung bases unremarkable as seen. There are overlying cardiac leads. impression: Nonobstructive bowel gas pattern.
[2019-06-08 00:21] VITALS: PULSE 77
[2019-06-08] MEDS: LACTULOSE 20 GM/30 ML CUP PO SCH ×3 (05:54→08:52)
[2019-06-08] MEDS: LEVOTHYROXINE 75 MCG TAB PO SCH (06:29)
[2019-06-08] MEDS: PANTOPRAZOLE 40 MG TABLET PO SCH (06:29)
[2019-06-08] MEDS: SENNOSIDES-DOCUSATE SODIUM 1 EACH TAB PO SCH (07:20)
[2019-06-08] MEDS: amLODIPine 10 MG TAB PO SCH (08:42)
[2019-06-08] MEDS: METOPROLOL TARTRATE 50 MG TAB PO SCH (08:43)
[2019-06-08] MEDS: PRAMIPEXOLE 1 MG TAB PO SCH (08:43)
[2019-06-08] MEDS: HYDROCORTISONE 1% OINT 28.35 GM TUBE TOPICAL SCH (08:43)
[2019-06-08] MEDS: hydrALAZINE HCL 25 MG TAB PO SCH (08:43)
[2019-06-08] MEDS: MAGNESIUM OXIDE 400 MG TAB PO SCH (08:43)
[2019-06-08] MEDS: FUROSEMIDE 40 MG TAB PO SCH (08:43)
[2019-06-08] MEDS: PRAVASTATIN SODIUM 80 MG TAB PO SCH (08:43)
[2019-06-08] MEDS: ALLOPURINOL 100 MG TAB PO SCH (08:43)
[2019-06-08] MEDS: ESCITALOPRAM 10 MG TAB PO SCH (08:43)
[2019-06-08] MEDS: CARBIDOPA-LEVODOPA 25-100 MG 1 EACH TAB PO SCH ×3 (08:43→17:01)
[2019-06-08] MEDS: CEFDINIR 300 MG CAP PO SCH (08:43)
[2019-06-08] MEDS: SODIUM BICARBONATE TAB 650 MG TAB PO SCH (08:47)
[2019-06-08] MEDS ORDERED: ASPIRIN 81 MG PO SCH (09:00)
[2019-06-08 09:43] VITALS: RESP 20
[2019-06-08] MEDS ORDERED: Magnesium Replacement Protocol 1 EACH MISC MISCELLANE PRN (09:58)
[2019-06-08] MEDS: MAGNESIUM SULFATE-D5W PMX 1 GM in DEXTROSE/WATER 1 100ML.BAG IVPB SCH ×3 (11:13→14:17)
--- NOTE | 2019-06-08 11:46 | P.PN ---
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 She follows in the office with Dr. Pond. We have been asked to see her in consultation secondary to heart failure. Patient was seen and examined this morning, diuresed well through the night last night, her weight is down a total of 8 pounds. She continues to diurese. Still on IV Lasix 40 mg twice a day. Blood pressure 144/67 with a heart rate in the 70s, 94% on 2 L of oxygen. White blood cell count 8.0, hemoglobin 10.2, platelet count 184. Sodium 139, potassium 5.3, BUN 21 and creatinine 1.1. 06/06/2019 Patient was seen and examined this morning, sitting up in chair at bedside, she slept well through the night last night, weight is down again today, she continued to diurese well through the night. BloodI pressure this morning 138/68 with a heart rate in the 70s, 96% on 2 L of oxygen. White blood cell count 6.4, hemoglobin 10.1, platelet count 194. Sodium 140, potassium 5.5, BUN 29 and creatinine 1.1. We will continue the patient on current dose of IV Lasix for 24 hours, repeat chest x-ray. 06/07/2019 Patient was seen and examined this morning, breathing is stable, repeat chest x- ray did not show any evidence of congestive cardiac failure. Her weight is down 1 more kilogram today. Blood pressure 136/70 with a heart rate in the 70s, 96% on room air. White blood cell count 7.2, hemoglobin 10.4, platelet count 205. Sodium 139, potassium 3.5, BUN 27 and creatinine 1.2. She is complaining this morning of some right sided abdominal pain, she does have a area of swelling in the right abdominal region, appears to be possibly a hematoma, very tender to touch. 06/08/2019 Patient seen and examined this morning, breathing is stable, x-ray of the abdomen did not reveal any significant findings. Mild abdominal tenderness today, which she states is her normal, symptoms of yesterday seemed to have resolved. She is eager to be discharged home today. Objective - Vital Signs Vital signs: Vital Signs Temp 98.9 F 06/08/19 11:00 Pulse 77 06/08/19 11:00 Resp 20 06/08/19 11:00 BP 125/61 06/08/19 11:00 Pulse Ox 93 L 06/08/19 11:00 Intake & Output 06/07/19 06/08/19 06/08/19 18:59 06:59 18:59 Intake Total 390 30 110 Output Total 600 1200 Balance -210 -1170 110 Intake: IV 30 30 10 Invasive Line 2 30 30 10 Oral 360 100 Output: Urine 600 1200 Other: Voiding Method Indwelling Catheter Indwelling Catheter Indwelling Catheter # Bowel Movements 5 - Exam GENERAL: This is a 73-year-old female in no apparent distress at the time of my examination. Obese. HEENT: Head is atraumatic, normocephalic. Pupils are equal, round. Sclerae anicteric. Conjunctivae are clear. Mucous membranes of the mouth are moist. Neck is supple. There is no jugular venous distention. No carotid bruit is heard. Garbled speech. LUNGS: Clear to auscultation with fine expiratory wheezing noted . HEART: Regular rate and rhythm without murmurs, rubs or gallops. S1 and S2 heard. ABDOMEN: Soft, mild generalized tenderness in right mid abdominal region, . Bowel sounds are heard. No organomegaly noted. EXTREMITIES: Trace bilateral lower extremity edema and no calf tenderness noted. VASCULAR: Radial and dorsalis pedis pulses palpated, no evidence of clubbing. NEUROLOGIC: Patient is awake, alert and oriented x3. - Labs CBC & Chem 7: 06/07/19 07:12 06/07/19 07:12 Labs: Abnormal Lab Results - Last 24 Hours (Table) 06/08/19 Range/Units 09:01 Magnesium 1.2 L (1.6-2.3) mg/dL Assessment and Plan Plan: ASSESSMENT and plan #1 Acute on chronic diastolic heart failure #2 Hypertension, uncontrolled #3 Abdominal discomfort and constipation with recent diagnosis of ileus #4 History of recent kidney injury #5Dyslipidemia #6 History of CVA #7 Parkinson's disease Plan From cardiology's perspective, patient may be able to be discharged home today. We'll make a follow-up appointment in the office post discharge. DNP note has been reviewed, I agree with a documented findings and plan of care. Patient was seen and examined.
[2019-06-08 15:41] VITALS: BP 120/58; TEMP 98
--- NOTE | 2019-06-08 16:14 | P.DS ---
Providers Date of admission: 06/04/19 06:02 Expected date of discharge: 06/08/19 Attending physician: Cameron Nelson Consults: 06/04/19 06:02 Consult Physician Routine Consulting Provider: Zion David Consult Reason/Comments: Congestive heart failure Do you want consulting provider notified?: Yes 06/04/19 06:07 Consult Physician Routine Consulting Provider: Zion David Consult Reason/Comments: CHF exacerbation Do you want consulting provider notified?: Yes Primary care physician: Cameron Nelson Hospital Course: Final Diagnoses: -acute on chronic Congestive heart failure, diastolic dysfunction -Hypertension -Recent ileus -chronic renal failure III, secondary to nephrosclerosis, baseline 1.2-1.5 -Parkinson's disease -History of CVA This 73-year-old female known to the practice was recently discharged from [facility] approximately 24 hours ago, subsequently returned with complaint of shortness of breath. Patient has diminished breath sounds bilaterally scattered rhonchi bilaterally. BNP was 11,300. Previous admission patient presented with a sepsis-like pattern that that resolved with IV antibiotics and IV fluids. Patient has had history of CVA with expressive aphasia Evaluated by cardiology with metastases further adjusted. Diuresed well on Lasix IV push, converted to oral. Significant clinical improvement. Cleared by cardiology for discharge. Patient will be discharged to [facility] subacute rehab in a stable condition with guarded prognosis. - Exam General: [Patient awake, alert and oriented times 3, sitting up in chair, no acute distress. Expressive aphasia Cardiac: [Heart regular in rate and rhythm. No S3. No S4. No clicks, rubs. No murmur. Lungs: Clear breath sounds, no rhonchi, fine occasional basilar expiratory wheezes Abdomen: No mass. No organomegaly. Bowel sounds presnt and normoactive in all 4 quadrants. Neurologic: [No lateralizing deficits. CN II - XII grossly intact.Her speech is consistent with expressive aphasia, chronic residual left-sided weakness. The impression and plan of care has been dictated as directed. : I performed a history and examination of this patient, discussed the same with the dictator. I agree with the dictator's note ,documented as a scribe. Any additional findings or plans will be noted. Time taken: 35 minutes Patient Condition at Discharge: Stable Plan - Discharge Summary New Discharge Prescriptions: New hydrALAZINE HCL [Apresoline] 25 mg PO BID #60 tab Aspirin 81 mg PO DAILY chew Furosemide [Lasix] 40 mg PO DAILY #30 tab Metoprolol Tartrate [Lopressor] 50 mg PO Q12HR #60 tab Magnesium Oxide [Mag-Ox] 400 mg PO DAILY #30 tab amLODIPine [Norvasc] 10 mg PO DAILY #30 tab Sennosides-Docusate Sodium [Senokot-S] 2 each PO BID tab Continue Carbidopa/Levodopa [Parcopa 25-100 mg Odt] 1 tab SL QID Escitalopram Oxalate [Lexapro] 10 mg PO DAILY Pravastatin Sodium [Pravachol] 80 mg PO DAILY Omeprazole [PriLOSEC] 20 mg PO BID Allopurinol [Zyloprim] 100 mg PO BID Levothyroxine Sodium [Synthroid] 150 mcg PO DAILY Pramipexole [Mirapex] 1 mg PO DAILY Calcitriol [Rocaltrol] 0.25 mcg PO WESA Ergocalciferol (Vitamin D2) [Drisdol] 50,000 unit PO Q14D Ketoconazole [Ketoconazole 2%] 1 applic TOPICAL BID Hydrocortisone Oint [Hydrocortisone 2.5% Oint] 1 applic TOPICAL BID Sodium Bicarbonate Tab 1,300 mg PO BID #56 tab Acetaminophen Tab [Tylenol] 650 mg PO Q6HR PRN tab PRN Reason: Mild Pain Or Fever > 100.5 SILVER sulfADIAZINE CREAM [Silvadene Cream] 1 applic TOPICAL BID #85 g Cefuroxime Axetil [Ceftin] 500 mg PO BID #10 tab Discontinued Aspirin EC [Ecotrin] 325 mg PO DAILY Discharge Medication List Carbidopa/Levodopa [Parcopa 25-100 mg Odt] 1 tab SL QID 09/07/14 [History] Escitalopram Oxalate [Lexapro] 10 mg PO DAILY 09/07/14 [History] Omeprazole [PriLOSEC] 20 mg PO BID 09/07/14 [History] Pravastatin Sodium [Pravachol] 80 mg PO DAILY 09/07/14 [History] Allopurinol [Zyloprim] 100 mg PO BID 09/21/17 [History] Calcitriol [Rocaltrol] 0.25 mcg PO WESA 05/19/19 [History] Ergocalciferol (Vitamin D2) [Drisdol] 50,000 unit PO Q14D 05/19/19 [History] Levothyroxine Sodium [Synthroid] 150 mcg PO DAILY 05/19/19 [History] Pramipexole [Mirapex] 1 mg PO DAILY 05/19/19 [History] Hydrocortisone Oint [Hydrocortisone 2.5% Oint] 1 applic TOPICAL BID 05/27/19 [History] Ketoconazole [Ketoconazole 2%] 1 applic TOPICAL BID 05/27/19 [History] Acetaminophen Tab [Tylenol] 650 mg PO Q6HR PRN tab 06/02/19 [Rx] SILVER sulfADIAZINE CREAM [Silvadene Cream] 1 applic TOPICAL BID #85 g 06/02/19 [Rx] Sodium Bicarbonate Tab 1,300 mg PO BID #56 tab 06/02/19 [Rx] Aspirin 81 mg PO DAILY chew 06/07/19 [Rx] Furosemide [Lasix] 40 mg PO DAILY #30 tab 06/07/19 [Rx] Magnesium Oxide [Mag-Ox] 400 mg PO DAILY #30 tab 06/07/19 [Rx] Metoprolol Tartrate [Lopressor] 50 mg PO Q12HR #60 tab 06/07/19 [Rx] Sennosides-Docusate Sodium [Senokot-S] 2 each PO BID tab 06/07/19 [Rx] amLODIPine [Norvasc] 10 mg PO DAILY #30 tab 06/07/19 [Rx] hydrALAZINE HCL [Apresoline] 25 mg PO BID #60 tab 06/07/19 [Rx] Cefuroxime Axetil [Ceftin] 500 mg PO BID #10 tab 06/08/19 [Rx] Follow up Appointment(s)/Referral(s): [facility] [Provider Group] - 1 Week Cameron Nelson MD [Primary Care Provider] - 3 Days Ambulatory/Diagnostic Orders: Complete Blood Count w/diff [LAB.AMB] Time Frame: 3 Days, Location: None Selected Patient Instructions/Handouts: Heart Failure (DC) Activity/Diet/Wound Care/Special Instructions: [place] Discharge Disposition: HOME WITH HOME HEALTH SERVICES
[2019-06-08 17:38] LABS: Magnesium 2.3 mg/dL (1.6-2.3); Potassium 3.5 mmol/L (3.5-5.1)
[2019-06-17] MEDS ORDERED: ERGOCALCIFEROL 50,000 UNIT CAP PO SCH (09:00)
== END 2019-06-08 17:40 | DRG 291 ==
LOC: EC 02:55 → 3SCARD 06:02
PROVIDERS: ADMIT Family Medicine; ATTEND Family Medicine
DX: I13.0 Hypertensive heart and chronic kidney disease with heart failure and stage 1 through stage 4 chronic kidney disease, or unspecified chronic kidney disease (principal); I50.33 Acute on chronic diastolic (congestive) heart failure; I69.354 Hemiplegia and hemiparesis following cerebral infarction affecting left non-dominant side; I16.1 Hypertensive emergency; G20 Parkinson's disease; I69.320 Aphasia following cerebral infarction; N18.3 Chronic kidney disease, stage 3 (moderate); R40.2142 Coma scale, eyes open, spontaneous, at arrival to emergency department; R40.2362 Coma scale, best motor response, obeys commands, at arrival to emergency department; R40.2252 Coma scale, best verbal response, oriented, at arrival to emergency department; E78.5 Hyperlipidemia, unspecified; E03.9 Hypothyroidism, unspecified; F31.9 Bipolar disorder, unspecified; F41.9 Anxiety disorder, unspecified; M19.90 Unspecified osteoarthritis, unspecified site; K59.00 Constipation, unspecified; E66.9 Obesity, unspecified; Z68.39 Body mass index [BMI] 39.0-39.9, adult; Z79.82 Long term (current) use of aspirin; Z79.890 Hormone replacement therapy; Z79.899 Other long term (current) drug therapy; Z87.891 Personal history of nicotine dependence; Z71.3 Dietary counseling and surveillance; Z90.710 Acquired absence of both cervix and uterus; Z98.890 Other specified postprocedural states; Z88.8 Allergy status to other drugs, medicaments and biological substances
CPT/HCPCS: 36415; 71045; 71046; 74018; 80048; 80053; 81001; 83735; 83880; 84132; 84484; 85025; 85610; 85730; 93005; 93306; 94760; 96374; 96375; 99291

== ENCOUNTER → 2019-07-20 | Outpatient (CLI) | payer MEDICARE ==
--- NOTE | 2019-07-20 11:43 | XR ---
EXAMINATION TYPE: XR foot complete LT DATE OF EXAM: 07/20/2019 COMPARISON: NONE HISTORY: Pain TECHNIQUE: Three views are submitted. FINDINGS: The osseous structures are intact. There is no acute fracture or dislocation. Diffuse osteopenia a nd arthropathy is a chronic appearing deformity proximal phalanx second digit with fusion of the prox imal phalanx and middle phalanx and chronic appearing deformity of the base of the proximal phalanx. Tiny spur along the plantar surface of the calcaneus. IMPRESSION: 1. There is a chronic appearing fusion and deformity of the proximal middle phalanx of the second dig it which could be congenital. Correlate clinically to exclude previous surgery. No acute fracture or destructive changes.
== END | disposition home or self-care (01) ==
LOC: RADXRMAIN 11:13
PROVIDERS: ATTEND Family Medicine
DX: L03.032 Cellulitis of left toe (principal)

== ENCOUNTER → 2019-08-10 | Outpatient (CLI) | payer MEDICARE ==
[2019-08-10 13:21] LABS: HCT 37.1 % (34.0-46.0); MCH 31.1 pg (25.0-35.0); MCHC 32.4 g/dL (31.0-37.0); MCV 95.8 fL (80.0-100.0); Mean Platelet Volume 6.8; Platelet Count 216 k/uL (150-450); RBC 3.87 m/uL (3.80-5.40); RDW 14.4 % (11.5-15.5)
[2019-08-10 13:46] LABS: Bacteria,Urine Moderate /hpf; RBC,Urine >182 /hpf (0-5); WBC,Urine >182 /hpf (0-5)
[2019-08-10 13:48] LABS: Appearance,Urine Cloudy (Clear)
[2019-08-10 13:49] LABS: Color,Urine Yellow
[2019-08-10 21:05] LABS: ALT <8 U/L (8-44); AST 17 U/L (13-35); African American GFR (CKD) 33.8 (60.0-200.0); Alkaline Phosphatase 94 U/L (41-126); BUN/Creat Ratio 18.82 Ratio (12.00-20.00); Calcium 9.7 mg/dL (8.7-10.3); Chloride 95 mmol/L (96-109); Globulin 2.2 g/dL (1.6-3.3); Glucose 141 mg/dL (70-110); Magnesium 1.8 mg/dL (1.5-2.4); Phosphorus 4.1 mg/dL (2.4-5.1); Potassium 3.2 mmol/L (3.5-5.5); Sodium 143 mmol/L (135-145); Total Bilirubin 0.5 mg/dL (0.3-1.2); Total Protein 6.6 g/dL (6.2-8.2)
[2019-08-10 21:06] LABS: Iron Saturation 11.96 (12.00-45.00)
[2019-08-10 21:11] LABS: Uric Acid 8.7 mg/dL (2.9-7.7)
[2019-08-10 21:22] LABS: Ferritin 385.8 ng/mL (10.0-291.0)
== END | disposition home or self-care (01) ==
LOC: LABWHC1 12:11
PROVIDERS: ATTEND Nurse Practitioner Family
DX: N39.0 Urinary tract infection, site not specified (principal); E55.9 Vitamin D deficiency, unspecified; M10.9 Gout, unspecified; I12.9 Hypertensive chronic kidney disease with stage 1 through stage 4 chronic kidney disease, or unspecified chronic kidney disease; N18.9 Chronic kidney disease, unspecified; Z79.899 Other long term (current) drug therapy
CPT/HCPCS: 36415; 80053; 81001; 82728; 83540; 83550; 83735; 83970; 84100; 84550; 85027

== ENCOUNTER → 2019-08-21 | Outpatient (CLI) | payer MEDICARE ==
[2019-08-21 20:15] LABS: African American GFR (CKD) 36.4 (60.0-200.0); Anion Gap 11.7 mmol/L (4.00-12.00); BUN/Creat Ratio 23.13 Ratio (12.00-20.00); Calcium 9.4 mg/dL (8.7-10.3); Carbon Dioxide 36.3 mmol/L (21.6-31.8); Potassium 3.5 mmol/L (3.5-5.5)
== END | disposition home or self-care (01) ==
LOC: LABWHC1 12:54
PROVIDERS: ATTEND Internal Medicine
DX: N18.9 Chronic kidney disease, unspecified (principal)
CPT/HCPCS: 36415; 80048

== ENCOUNTER → 2019-09-15 | Outpatient (CLI) | payer MEDICARE ==
[2019-09-15 15:15] LABS: HCT 36.9 % (34.0-46.0); HGB 12.2 gm/dL (11.4-16.0); MCH 31.8 pg (25.0-35.0); MCHC 33.2 g/dL (31.0-37.0); MCV 95.7 fL (80.0-100.0); Mean Platelet Volume 6.4; Platelet Count 235 k/uL (150-450); RBC 3.85 m/uL (3.80-5.40); RDW 14.3 % (11.5-15.5); WBC 8.5 k/uL (3.8-10.6)
[2019-09-15 23:36] LABS: % Iron Saturation 17.09 (12.00-45.00); AST 16 U/L (13-35); African American GFR (CKD) 42.8 (60.0-200.0); Alkaline Phosphatase 100 U/L (41-126); BUN/Creat Ratio 20.71 Ratio (12.00-20.00); Calcium 9.5 mg/dL (8.7-10.3); Chloride 94 mmol/L (96-109); Ferritin 427.1 ng/mL (10.0-291.0); Globulin 2.1 g/dL (1.6-3.3); Glucose 172 mg/dL (70-110); Iron 47 ug/dL (50-170); Magnesium 1.7 mg/dL (1.5-2.4); Phosphorus 3.7 mg/dL (2.4-5.1); Potassium 3.3 mmol/L (3.5-5.5); Sodium 144 mmol/L (135-145); Total Bilirubin 0.4 mg/dL (0.3-1.2); Total Iron Binding Capacity 275 ug/dL (228-460); Total Protein 6.3 g/dL (6.2-8.2); Uric Acid 10.8 mg/dL (2.9-7.7)
[2019-09-15 23:55] LABS: ALT <8 U/L (8-44)
== END ==
LOC: LABWHC1 14:01
PROVIDERS: ATTEND Internal Medicine
DX: N18.9 Chronic kidney disease, unspecified (principal); D63.1 Anemia in chronic kidney disease; N39.0 Urinary tract infection, site not specified; N25.81 Secondary hyperparathyroidism of renal origin; E55.9 Vitamin D deficiency, unspecified; M10.9 Gout, unspecified
CPT/HCPCS: 36415; 80053; 82728; 83540; 83550; 83735; 83970; 84100; 84550; 85027

== ENCOUNTER → 2019-10-26 | Outpatient (CLI) | payer MEDICARE ==
[2019-10-26 10:49] LABS: Basophils % (A) 0 %; Eosinophils # (A) 0.2 k/uL (0-0.7); Eosinophils % (A) 3 %; HCT 36.2 % (34.0-46.0); HGB 11.6 gm/dL (11.4-16.0); Lymphocytes # (A) 1.1 k/uL (1.0-4.8); Lymphocytes % (A) 13 %; MCH 30.4 pg (25.0-35.0); MCV 95.1 fL (80.0-100.0); Mean Platelet Volume 7.2; Monocytes # (A) 0.4 k/uL (0-1.0); Monocytes % (A) 4 %; Neutrophils # (A) 6.7 k/uL (1.3-7.7); Neutrophils % (A) 79 %; Platelet Count 199 k/uL (150-450); RBC 3.81 m/uL (3.80-5.40); RDW 14.8 % (11.5-15.5); WBC 8.4 k/uL (3.8-10.6)
[2019-10-26 15:45] LABS: ALT <8 U/L (8-44); AST 11 U/L (13-35); African American GFR (CKD) 42.8 (60.0-200.0); Alkaline Phosphatase 104 U/L (41-126); BUN/Creat Ratio 17.14 Ratio (12.00-20.00); Calcium 9.4 mg/dL (8.7-10.3); Carbon Dioxide 37.8 mmol/L (21.6-31.8); Chloride 94 mmol/L (96-109); Chol/HDL Ratio 3.24; Cholesterol 146 mg/dL (0-200); Glucose 122 mg/dL (70-110); LDL Cholesterol,Calculated 70.4 mg/dL (0.0-131.0); Non-African American GFR(CKD) 36.9 (60.0-200.0); Potassium 3.1 mmol/L (3.5-5.5); Sodium 145 mmol/L (135-145); Total Bilirubin 0.6 mg/dL (0.3-1.2)
== END | disposition home or self-care (01) ==
LOC: LABWHC1 09:14
PROVIDERS: ATTEND Nurse Practitioner Family
DX: Z00.00 Encounter for general adult medical examination without abnormal findings (principal); E03.9 Hypothyroidism, unspecified; I10 Essential (primary) hypertension; I50.32 Chronic diastolic (congestive) heart failure; K21.9 Gastro-esophageal reflux disease without esophagitis; N18.3 Chronic kidney disease, stage 3 (moderate); F42.4 Excoriation (skin-picking) disorder
CPT/HCPCS: 36415; 80053; 80061; 82248; 84439; 84443; 85025

== ENCOUNTER → 2019-12-18 | Outpatient (CLI) | payer MEDICARE ==
[2019-12-18 22:20] LABS: ALT <8 U/L (8-44); AST 9 U/L (13-35); African American GFR (CKD) 39.4 (60.0-200.0); Albumin/Globulin Ratio 1.87 (1.60-3.17); Alkaline Phosphatase 111 U/L (41-126); BUN/Creat Ratio 18.67 Ratio (12.00-20.00); Carbon Dioxide 38.7 mmol/L (21.6-31.8); Chloride 89 mmol/L (96-109); Globulin 2.3 g/dL (1.6-3.3); Glucose 130 mg/dL (70-110); Potassium 3.3 mmol/L (3.5-5.5); Sodium 142 mmol/L (135-145); Total Bilirubin 0.6 mg/dL (0.2-1.2); Total Protein 6.6 g/dL (6.2-8.2)
== END | disposition home or self-care (01) ==
LOC: LABWHC1 11:51
PROVIDERS: ATTEND Nurse Practitioner Family
DX: Z51.81 Encounter for therapeutic drug level monitoring (principal); Z79.899 Other long term (current) drug therapy
CPT/HCPCS: 36415; 80053

== ENCOUNTER → 2020-01-15 | Outpatient (CLI) | payer MEDICARE ==
[2020-01-15 20:26] LABS: ALT <8 U/L (8-44); AST 13 U/L (13-35); African American GFR (CKD) 36.4 (60.0-200.0); Albumin/Globulin Ratio 1.83 (1.60-3.17); Alkaline Phosphatase 108 U/L (41-126); BUN/Creat Ratio 15.63 Ratio (12.00-20.00); Calcium 9.4 mg/dL (8.7-10.3); Chloride 94 mmol/L (96-109); Globulin 2.3 g/dL (1.6-3.3); Glucose 167 mg/dL (70-110); Magnesium 1.7 mg/dL (1.5-2.4); Non-African American GFR(CKD) 31.4 (60.0-200.0); Potassium 3.3 mmol/L (3.5-5.5); Sodium 144 mmol/L (135-145); Total Bilirubin 0.5 mg/dL (0.3-1.2); Total Protein 6.5 g/dL (6.2-8.2)
== END | disposition home or self-care (01) ==
LOC: LABWHC1 11:29
PROVIDERS: ATTEND Nurse Practitioner Family
DX: E87.6 Hypokalemia (principal); Z79.899 Other long term (current) drug therapy
CPT/HCPCS: 36415; 80053; 83735

== ENCOUNTER → 2020-03-14 | Outpatient (CLI) | payer MEDICARE ==
[2020-03-14 10:58] LABS: HCT 34.5 % (34.0-46.0); HGB 10.8 gm/dL (11.4-16.0); Hypochromasia Slight; MCH 29.3 pg (25.0-35.0); MCHC 31.4 g/dL (31.0-37.0); MCV 93.3 fL (80.0-100.0); Mean Platelet Volume 7.3; Platelet Count 175 k/uL (150-450); RBC 3.69 m/uL (3.80-5.40); RDW 14.8 % (11.5-15.5); WBC 7.2 k/uL (3.8-10.6)
[2020-03-14 16:16] LABS: % Iron Saturation 14.68 (12.00-45.00); ALT <8 U/L (8-44); AST 8 U/L (13-35); African American GFR (CKD) 39.4 (60.0-200.0); Albumin/Globulin Ratio 1.71 (1.60-3.17); Alkaline Phosphatase 103 U/L (41-126); Calcium 9.3 mg/dL (8.7-10.3); Chloride 96 mmol/L (96-109); Ferritin 455.4 ng/mL (10.0-291.0); Globulin 2.1 g/dL (1.6-3.3); Glucose 217 mg/dL (70-110); Iron 37 ug/dL (50-170); Magnesium 1.8 mg/dL (1.5-2.4); Phosphorus 3.9 mg/dL (2.4-5.1); Potassium 3.8 mmol/L (3.5-5.5); Sodium 144 mmol/L (135-145); Total Bilirubin 0.4 mg/dL (0.3-1.2); Total Iron Binding Capacity 252 ug/dL (228-460); Total Protein 5.7 g/dL (6.2-8.2); Uric Acid 5.2 mg/dL (2.9-7.7)
[2020-03-14 16:16] LABS: Appearance,Urine Turbid (Clear); Bacteria,Urine Few /hpf; Bilirubin,Urine Negative (Negative); Blood,Urine Moderate (Negative); Color,Urine Yellow; Glucose,Urine (UA) Negative (Negative); Ketones,Urine Negative (Negative); Leukocyte Esterase,Urine Large (Negative); Nitrite,Urine Negative (Negative); Protein,Urine 3+ (Negative); RBC,Urine 40 /hpf (0-5); Urobilinogen,Urine <2.0 mg/dL (<2.0); WBC,Urine >182 /hpf (0-5)
[2020-03-14 17:03] LABS: Specific Gravity,Urine >1.050 (1.001-1.035)
== END | disposition home or self-care (01) ==
LOC: LABWHC1 10:03
PROVIDERS: ATTEND Nurse Practitioner Family
DX: N18.9 Chronic kidney disease, unspecified (principal); D64.9 Anemia, unspecified; N39.0 Urinary tract infection, site not specified; N25.81 Secondary hyperparathyroidism of renal origin; E55.9 Vitamin D deficiency, unspecified; M10.9 Gout, unspecified
CPT/HCPCS: 36415; 80053; 81001; 82306; 82728; 83540; 83550; 83735; 83970; 84100; 84550; 85027

== ENCOUNTER → 2020-03-21 | Outpatient (CLI) | payer MEDICARE ==
--- NOTE | 2020-03-21 09:24 | US ---
EXAMINATION TYPE: US abdomen limited DATE OF EXAM: 03/21/2020 COMPARISON: NONE CLINICAL HISTORY: R19.01 Abdominal Mass. Assess for hernia at location of: midline abdominal wall No ultrasound evidence of hernia at this time. Small possible lipoma superior to patients palpable mass measuring 1.2 x 0.5 x 0.8cm IMPRESSION: No evidence for hernia. Real-time scanning was performed by the restoration officer utilizing Valsalva and additional dynamic maneuve rs to assess for hernia. Images of the contralateral side were also acquired for direct comparison.
== END | disposition home or self-care (01) ==
LOC: RADUSWWP 08:30
PROVIDERS: ATTEND Family Medicine
DX: R19.01 Right upper quadrant abdominal swelling, mass and lump (principal); Z88.8 Allergy status to other drugs, medicaments and biological substances
CPT/HCPCS: 76705

== ENCOUNTER → 2020-04-16 | Outpatient (CLI) | payer MEDICARE ==
[2020-04-16 12:23] LABS: HCT 33.5 % (34.0-46.0); HGB 10.6 gm/dL (11.4-16.0); MCH 29.1 pg (25.0-35.0); MCHC 31.6 g/dL (31.0-37.0); Mean Platelet Volume 6.9; Platelet Count 206 k/uL (150-450); RBC 3.64 m/uL (3.80-5.40); RDW 15.3 % (11.5-15.5); WBC 10.5 k/uL (3.8-10.6)
[2020-04-16 15:21] LABS: Appearance,Urine Turbid (Clear); Bacteria,Urine Many /hpf; Bilirubin,Urine Negative (Negative); Blood,Urine Moderate (Negative); Color,Urine Yellow; Glucose,Urine (UA) Negative (Negative); Hyaline Casts,Urine 43 /lpf (0-2); Ketones,Urine Negative (Negative); Leukocyte Esterase,Urine Large (Negative); Mucus,Urine Occasional /hpf; Nitrite,Urine Negative (Negative); Protein,Urine 2+ (Negative); RBC,Urine 151 /hpf (0-5); Urobilinogen,Urine <2.0 mg/dL (<2.0); WBC,Urine >182 /hpf (0-5)
[2020-04-16 15:22] LABS: Specific Gravity,Urine 1.016 (1.001-1.035)
[2020-04-16 15:27] LABS: Protein/Creatinine Ratio,Urine 1.08
[2020-04-16 20:04] LABS: % Iron Saturation 17.01 (12.00-45.00); ALT <8 U/L (8-44); AST 9 U/L (13-35); African American GFR (CKD) 42.8 (60.0-200.0); Albumin/Globulin Ratio 1.58 (1.60-3.17); Alkaline Phosphatase 120 U/L (41-126); Calcium 9.2 mg/dL (8.7-10.3); Carbon Dioxide 31.8 mmol/L (21.6-31.8); Chloride 100 mmol/L (96-109); Ferritin 594.6 ng/mL (10.0-291.0); Globulin 2.4 g/dL (1.6-3.3); Glucose 135 mg/dL (70-110); Iron 41 ug/dL (50-170); Magnesium 1.8 mg/dL (1.5-2.4); Non-African American GFR(CKD) 36.9 (60.0-200.0); Phosphorus 3.8 mg/dL (2.4-5.1); Potassium 3.8 mmol/L (3.5-5.5); Sodium 141 mmol/L (135-145); Total Bilirubin 0.4 mg/dL (0.3-1.2); Total Iron Binding Capacity 241 ug/dL (228-460); Total Protein 6.2 g/dL (6.2-8.2); Uric Acid 6.3 mg/dL (2.9-7.7)
== END | disposition home or self-care (01) ==
LOC: LABWHC1 11:32
PROVIDERS: ATTEND Internal Medicine
DX: N39.0 Urinary tract infection, site not specified (principal); D63.1 Anemia in chronic kidney disease; N18.9 Chronic kidney disease, unspecified; N25.81 Secondary hyperparathyroidism of renal origin; E55.9 Vitamin D deficiency, unspecified; M10.9 Gout, unspecified; R80.9 Proteinuria, unspecified
CPT/HCPCS: 36415; 80053; 81001; 82570; 82728; 83540; 83550; 83735; 83970; 84100; 84156; 84550; 85027

== ENCOUNTER → 2020-07-16 | Outpatient (CLI) | payer MEDICARE ==
[2020-07-16 15:32] LABS: HGB 11.2 gm/dL (11.4-16.0); MCH 32.3 pg (25.0-35.0); Platelet Count 180 k/uL (150-450); RBC 3.47 m/uL (3.80-5.40); RDW 14.2 % (11.5-15.5); WBC 6.3 k/uL (3.8-10.6)
[2020-07-17 01:01] LABS: % Iron Saturation 12.82 (12.00-45.00); ALT <8 U/L (8-44); AST 11 U/L (13-35); African American GFR (CKD) 42.5 (60.0-200.0); Albumin/Globulin Ratio 1.58 (1.60-3.17); Alkaline Phosphatase 98 U/L (41-126); Calcium 9.4 mg/dL (8.7-10.3); Carbon Dioxide 31.9 mmol/L (21.6-31.8); Chloride 100 mmol/L (96-109); Globulin 2.6 g/dL (1.6-3.3); Glucose 149 mg/dL (70-110); Iron 35 ug/dL (50-170); Magnesium 1.9 mg/dL (1.5-2.4); Non-African American GFR(CKD) 36.7 (60.0-200.0); Phosphorus 3.6 mg/dL (2.4-5.1); Sodium 143 mmol/L (135-145); Total Bilirubin 0.3 mg/dL (0.2-1.2); Total Iron Binding Capacity 273 ug/dL (228-460); Total Protein 6.7 g/dL (6.2-8.2); Uric Acid 6.1 mg/dL (2.9-7.7)
== END | disposition home or self-care (01) ==
LOC: LABWHC1 14:37
PROVIDERS: ATTEND Internal Medicine
DX: N18.9 Chronic kidney disease, unspecified (principal); D63.1 Anemia in chronic kidney disease; N39.0 Urinary tract infection, site not specified; R80.9 Proteinuria, unspecified; N25.81 Secondary hyperparathyroidism of renal origin; E55.9 Vitamin D deficiency, unspecified; M10.9 Gout, unspecified
CPT/HCPCS: 36415; 80053; 82728; 83540; 83550; 83735; 83970; 84100; 84550; 85027

== ENCOUNTER → 2020-08-16 | Outpatient (CLI) | payer MEDICARE ==
--- NOTE | 2020-08-16 15:39 | US ---
EXAMINATION TYPE: US kidneys/renal and bladder DATE OF EXAM: 08/16/2020 COMPARISON: CT & US CLINICAL HISTORY: N18.9 Chronic kidney disease. CKD EXAM MEASUREMENTS: Right Kidney: 12.4 x 7.5 x 5.9 cm Left Kidney: 11.5 x 5.9 x 5.0 cm Large pt body habitus with h/o stroke/ paralyzed and scanned in wheelchair Right Kidney: Cyst upper pole= 1.6 cm/ Sever hydro, possible debris within dilated ureter Left Kidney: Complex cyst lower pole= 6.3 x 3.9 x 5.4 cm Bladder: Unable to visualize bladder due to large body habitus and scanned in wheelchar=ir No nephrolithiasis is seen. No solid masses are identified. IMPRESSION: 1. Severe right-sided hydronephrosis. 2. Complex cystic lesion lower pole left kidney. Contrast-enhanced CT recommended for further evaluat ion.
== END | disposition home or self-care (01) ==
LOC: RADUSWWP 15:09
PROVIDERS: ATTEND Family Medicine
DX: N28.1 Cyst of kidney, acquired (principal); N13.30 Unspecified hydronephrosis; N18.9 Chronic kidney disease, unspecified
CPT/HCPCS: 76770

== ENCOUNTER → 2020-12-09 | Outpatient (CLI) | payer MEDICARE ==
--- NOTE | 2020-12-09 16:42 | XR ---
2 view abdomen HISTORY: Abdominal pain, vomiting 2views are submitted of the abdomen on 3 images Lung bases are clear. Surgical clips are present right upper quadrant. No evident pneumoperitoneum or bowel obstruction. Retained fecal debris present within the ascending and portion of the transverse colon, rectum. Probable vascular calcifications in the pelvis. IMPRESSION: Nonspecific bowel gas pattern.
== END | disposition home or self-care (01) ==
LOC: RADXRMAIN 12:20
PROVIDERS: ATTEND Family Medicine
DX: R10.84 Generalized abdominal pain (principal)
CPT/HCPCS: 74019

== ENCOUNTER 2020-12-24 10:00 | Inpatient (IN) | payer MEDICARE ==
[2020-12-24] MEDS ORDERED: SODIUM CHLORIDE 0.9% 1,000 ML IV STA (10:31)
[2020-12-24] MEDS ORDERED: ONDANSETRON 4 MG/2 ML VIAL IVP STA (10:31)
[2020-12-24] MEDS ORDERED: SODIUM CHLORIDE 0.9% 500 ML 500 ML IV STA (10:31)
[2020-12-24] MEDS ORDERED: FAMOTIDINE 20 MG/2 ML VIAL IV STA (10:32)
--- NOTE | 2020-12-24 10:34 | ED ---
General Adult HPI - General Chief complaint: Nausea/Vomiting/Diarrhea Stated complaint: vomiting/abd pain Time Seen by Provider: 12/24/20 10:03 Source: patient, family, RN/MD (Case discussed with Dr. Nelson), RN notes reviewed Mode of arrival: wheelchair Limitations: no limitations - History of Present Illness Initial comments: Patient is a pleasant 75-year-old female presenting to the emergency Department with abdominal discomfort and nausea/vomiting. Patient has been constipated. Symptoms have progressed over the past couple of weeks. Patient does have history of previous constipation. Patient did see Dr. Nelson today who did send patient over for IV fluids and computed tomography scan. Patient has had decreased appetite recently. Patient is a poor historian and majority of history comes from . - Related Data Home Medications Medication Instructions Recorded Confirmed Escitalopram Oxalate [Lexapro] 10 mg PO DAILY 09/07/14 12/24/20 Omeprazole [PriLOSEC] 20 mg PO BID 09/07/14 12/24/20 Pravastatin Sodium [Pravachol] 80 mg PO DAILY 09/07/14 12/24/20 allopurinoL [Zyloprim] 100 mg PO BID 09/21/17 12/24/20 Ergocalciferol (Vitamin D2) 50,000 unit PO Q14D 05/19/19 12/24/20 [Drisdol (50,000 Iu)] Levothyroxine Sodium [Synthroid] 150 mcg PO DAILY 05/19/19 12/24/20 Pramipexole [Mirapex] 1 mg PO DAILY 05/19/19 12/24/20 calcitrioL [Rocaltrol] 0.25 mcg PO SUMOTUWETHFR 05/19/19 12/24/20 Carbidopa-Levodopa 25-100 mg 1 tab PO TID 12/24/20 12/24/20 [Sinemet 25-100 mg] Carbidopa-Levodopa 25-100 mg 2 tab PO W/SUPPER 12/24/20 12/24/20 [Sinemet 25-100 mg] Metoprolol Tartrate [Lopressor] 50 mg PO BID 12/24/20 12/24/20 Potassium Chloride ER [K-Dur 20] 20 meq PO DAILY 12/24/20 12/24/20 Triamterene/Hydrochlorothiazid 1 tab PO DAILY 12/24/20 12/24/20 [Triamterene-Hctz 37.5-25 mg Tb] polyethylene glycoL 3350 17 gm PO DAILY PRN 12/24/20 12/24/20 [Polyethylene Glycol 3350] Previous Rx's Medication Instructions Recorded Magnesium Oxide [Mag-Ox] 400 mg PO DAILY #30 tab 06/07/19 amLODIPine [Norvasc] 10 mg PO DAILY #30 tab 06/07/19 Allergies Allergy/AdvReac Type Severity Reaction Status Date / Time amiodarone [From Cordarone] Allergy Anaphylaxis Verified 12/24/20 11:38 cyclobenzaprine Allergy Rash/Hives Verified 12/24/20 11:38 [From Flexeril] Review of Systems ROS Statement: Those systems with pertinent positive or pertinent negative responses have been documented in the HPI. ROS Other: All systems not noted in ROS Statement are negative. Constitutional: Denies: fever Eyes: Denies: eye pain ENT: Denies: ear pain Respiratory: Denies: cough Cardiovascular: Denies: chest pain Endocrine: Reports: fatigue Gastrointestinal: Reports: abdominal pain, nausea, vomiting, constipation. 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, hypothyroidism, hypertension, hyperlipidemia, Parkinson's disease, degenerative arthritis, anxiety, depression History of Any Multi-Drug Resistant Organisms: None Reported Past Surgical History: Hysterectomy, Orthopedic Surgery Additional Past Surgical History / Comment(s): Hammer toe surgery, recent infection to toe Past Anesthesia/Blood Transfusion Reactions: No Reported Reaction Past Psychological History: Anxiety, Bipolar, Depression Smoking Status: Never smoker Past Alcohol Use History: None Reported Past Drug Use History: None Reported - Past Family History Father Family Medical History: No Reported History General Exam Limitations: no limitations General appearance: alert, in no apparent distress Head exam: Present: normocephalic Eye exam: Present: normal appearance ENT exam: Present: normal oropharynx Neck exam: Present: normal inspection Respiratory exam: Present: normal lung sounds bilaterally Cardiovascular Exam: Present: regular rate, normal rhythm GI/Abdominal exam: Present: soft, tenderness (Mild diffuse tenderness), hyperactive bowel sounds. Absent: distended, guarding, rebound, rigid, pulsatile mass Extremities exam: Present: normal inspection Neurological exam: Present: alert Psychiatric exam: Present: flat affect Skin exam: Present: normal color Course Vital Signs 12/24/20 12/24/20 12/24/20 10:05 10:50 11:38 Temperature 98.2 F Pulse Rate 84 73 75 Respiratory 18 14 16 Rate Blood Pressure 109/68 120/60 127/60 O2 Sat by Pulse 96 95 98 Oximetry Medical Decision Making - Medical Decision Making Reevaluated. Patient and family updated. Case discussed with Dr. Bennett, who will admit his patient with urology consult. - Lab Data Result diagrams: 12/24/20 10:35 12/24/20 10:35 Lab Results 12/24/20 12/24/20 12/24/20 Range/Units 10:35 10:35 10:35 WBC 7.7 (3.8-10.6) k/uL RBC 3.17 L (3.80-5.40) m/uL Hgb 9.6 L (11.4-16.0) gm/dL Hct 28.5 L (34.0-46.0) % MCV 89.7 (80.0-100.0) fL MCH 30.3 (25.0-35.0) pg MCHC 33.7 (31.0-37.0) g/dL RDW 13.3 (11.5-15.5) % Plt Count 259 (150-450) k/uL MPV 7.3 Neutrophils % 84 % Lymphocytes % 9 % Monocytes % 5 % Eosinophils % 1 % Basophils % 0 % Neutrophils # 6.5 (1.3-7.7) k/uL Lymphocytes # 0.7 L (1.0-4.8) k/uL Monocytes # 0.4 (0-1.0) k/uL Eosinophils # 0.0 (0-0.7) k/uL Basophils # 0.0 (0-0.2) k/uL PT 11.3 (9.0-12.0) sec INR 1.1 (<1.2) APTT 22.2 (22.0-30.0) sec Sodium (137-145) mmol/L Potassium (3.5-5.1) mmol/L Chloride (98-107) mmol/L Carbon Dioxide (22-30) mmol/L Anion Gap mmol/L BUN (7-17) mg/dL Creatinine (0.52-1.04) mg/dL Est GFR (CKD-EPI)AfAm (>60 ml/min/1.73 sqM) Est GFR (CKD-EPI)NonAf (>60 ml/min/1.73 sqM) Glucose (74-99) mg/dL Calcium (8.4-10.2) mg/dL Total Bilirubin (0.2-1.3) mg/dL AST (14-36) U/L ALT (4-34) U/L Alkaline Phosphatase (38-126) U/L Total Protein (6.3-8.2) g/dL Albumin (3.5-5.0) g/dL Amylase (30-110) U/L Lipase (23-300) U/L Urine Color Light Red Urine Appearance Turbid H (Clear) Urine pH 6.0 (5.0-8.0) Ur Specific [place] 1.020 (1.001-1.035) Urine Protein 3+ H (Negative) Urine Glucose (UA) Negative (Negative) Urine Ketones Negative (Negative) Urine Blood Moderate H (Negative) Urine Nitrite Negative (Negative) Urine Bilirubin Negative (Negative) Urine Urobilinogen <2.0 (<2.0) mg/dL Ur Leukocyte Esterase Large H (Negative) Urine RBC >182 H (0-5) /hpf Urine WBC >182 H (0-5) /hpf Urine WBC Clumps Many H (None) /hpf Urine Bacteria Many H (None) /hpf 12/24/20 Range/Units 10:35 WBC (3.8-10.6) k/uL RBC (3.80-5.40) m/uL Hgb (11.4-16.0) gm/dL Hct (34.0-46.0) % MCV (80.0-100.0) fL MCH (25.0-35.0) pg MCHC (31.0-37.0) g/dL RDW (11.5-15.5) % Plt Count (150-450) k/uL MPV Neutrophils % % Lymphocytes % % Monocytes % % Eosinophils % % Basophils % % Neutrophils # (1.3-7.7) k/uL Lymphocytes # (1.0-4.8) k/uL Monocytes # (0-1.0) k/uL Eosinophils # (0-0.7) k/uL Basophils # (0-0.2) k/uL PT (9.0-12.0) sec INR (<1.2) APTT (22.0-30.0) sec Sodium 137 (137-145) mmol/L Potassium 4.8 (3.5-5.1) mmol/L Chloride 96 L (98-107) mmol/L Carbon Dioxide 30 (22-30) mmol/L Anion Gap 11 mmol/L BUN 36 H (7-17) mg/dL Creatinine 1.86 H (0.52-1.04) mg/dL Est GFR (CKD-EPI)AfAm 30 (>60 ml/min/1.73 sqM) Est GFR (CKD-EPI)NonAf 26 (>60 ml/min/1.73 sqM) Glucose 142 H (74-99) mg/dL Calcium 10.0 (8.4-10.2) mg/dL Total Bilirubin 0.7 (0.2-1.3) mg/dL AST 10 L (14-36) U/L ALT <6 (4-34) U/L Alkaline Phosphatase 127 H (38-126) U/L Total Protein 7.3 (6.3-8.2) g/dL Albumin 3.7 (3.5-5.0) g/dL Amylase 58 (30-110) U/L Lipase 89 (23-300) U/L Urine Color Urine Appearance (Clear) Urine pH (5.0-8.0) Ur Specific [place] (1.001-1.035) Urine Protein (Negative) Urine Glucose (UA) (Negative) Urine Ketones (Negative) Urine Blood (Negative) Urine Nitrite (Negative) Urine Bilirubin (Negative) Urine Urobilinogen (<2.0) mg/dL Ur Leukocyte Esterase (Negative) Urine RBC (0-5) /hpf Urine WBC (0-5) /hpf Urine WBC Clumps (None) /hpf Urine Bacteria (None) /hpf - Radiology Data Radiology results: report reviewed (Computed tomography scan of the abdomen pelvis shows severe right-sided hydronephrosis. Fluid and fat stranding suggesting inflammatory process. Dilated collecting system with internal debris.) Disposition Clinical Impression: Pyelonephritis Disposition: ADMITTED IP TO THIS HOSP Is patient prescribed a controlled substance at d/c from ED?: No Referrals: Gume Santiago Jr, [Primary Care Provider] - 1-2 days Decision Time: 13:50
[2020-12-24 10:48] LABS: Basophils % (A) 0 %; Eosinophils % (A) 1 %; HCT 28.5 % (34.0-46.0); HGB 9.6 gm/dL (11.4-16.0); Lymphocytes # (A) 0.7 k/uL (1.0-4.8); Lymphocytes % (A) 9 %; MCH 30.3 pg (25.0-35.0); MCHC 33.7 g/dL (31.0-37.0); MCV 89.7 fL (80.0-100.0); Mean Platelet Volume 7.3; Monocytes # (A) 0.4 k/uL (0-1.0); Monocytes % (A) 5 %; Neutrophils # (A) 6.5 k/uL (1.3-7.7); Neutrophils % (A) 84 %; Platelet Count 259 k/uL (150-450); RBC 3.17 m/uL (3.80-5.40); RDW 13.3 % (11.5-15.5); WBC 7.7 k/uL (3.8-10.6)
[2020-12-24 11:02] LABS: INR 1.1 (<1.2); Partial Thromboplastin Time 22.2 sec (22.0-30.0); Prothrombin Time 11.3 sec (9.0-12.0)
[2020-12-24 11:10] LABS: ALT <6 U/L (4-34); AST 10 U/L (14-36); African American GFR (CKD) 30 (>60 ml/min/1.73 sqM); Albumin 3.7 g/dL (3.5-5.0); Alkaline Phosphatase 127 U/L (38-126); Amylase 58 U/L (30-110); Anion Gap 11 mmol/L; Blood Urea Nitrogen 36 mg/dL (7-17); Carbon Dioxide 30 mmol/L (22-30); Chloride 96 mmol/L (98-107); Glucose 142 mg/dL (74-99); Lipase 89 U/L (23-300); Non-African American GFR(CKD) 26 (>60 ml/min/1.73 sqM); Potassium 4.8 mmol/L (3.5-5.1); Sodium 137 mmol/L (137-145); Total Bilirubin 0.7 mg/dL (0.2-1.3); Total Protein 7.3 g/dL (6.3-8.2)
--- NOTE | 2020-12-24 12:23 | CT ---
EXAMINATION TYPE: CT abdomen pelvis wo con DATE OF EXAM: 12/24/2020 HISTORY: Abdominal pain not further specified. CT DLP: 768.7 mGycm. Automated Exposure Control for Dose Reduction was Utilized. TECHNIQUE: CT scan of the abdomen and pelvis is performed without oral or IV contrast. COMPARISON: CT abdomen and pelvis May 27, 2019. Renal ultrasound August 16, 2020 FINDINGS: Within the limitations of a non-contrast study, the following observations are made. LUNG BASES: Coronary artery calcification in the RCA distribution redemonstrated. Mild bibasilar line ar scarring and/or atelectasis LIVER/GB: Cholecystectomy clips redemonstrated. PANCREAS: No significant abnormality is seen. SPLEEN: No significant abnormality is seen. ADRENALS: No significant abnormality is seen. KIDNEYS: Persistent cortical thinning in both kidneys. Persistent simple appearing thin-walled cyst m id to lower pole level centrally in left kidney measuring up to 4.5 cm long axis axial image 40, both increased in size from prior CT. No hydronephrosis left kidney. Right kidney now shows severe right-sided hydronephrosis more prominent from prior with enlarging 7.5 cm round hyperdense structure inferiorly medially right kidney appears contiguous with the right col lecting system. Mild to moderate surrounding fluid and fat stranding currently extends along the prox imal to mid ureter and distal ureter to lesser degree. Distal to this there is asymmetric mild right- sided distal hydroureter without obstructing mass or calculus. BOWEL: No significant abnormality is seen. GENITAL ORGANS: Uterus is surgically absent. Scattered bilateral pelvic phleboliths. LYMPH NODES: No greater than 1cm abdominal or pelvic lymph nodes are appreciated. OSSEOUS STRUCTURES: Mild disc space narrowing and vacuum disc phenomenon L3-L4 level. Some facet arth ropathy lower lumbar spine. Neural sheath prominence or Tarlov cyst right S2 level axial image 59 red emonstrated. OTHER: Moderate to severe calcified plaque of the aorta extends into branch vessels. IMPRESSION: Severe right-sided hydronephrosis redemonstrated. New mild to moderate ill-defined fluid and fat stranding suggests possible inflammatory process. Possible markedly dilated collecting system with internal debris or blood product, cannot exclude underlying neoplasm. Differential includes enl arging nonsimple cyst with local mass effect. The latter is favored. Unable to localize distinct uret er at this level, it may be deviated medially. Further investigation and follow-up either way is magali anted due to the severe hydronephrosis.
[2020-12-24 13:07] LABS: Appearance,Urine Turbid (Clear); Bacteria,Urine Many /hpf; Bilirubin,Urine Negative (Negative); Blood,Urine Moderate (Negative); Color,Urine Light Red; Glucose,Urine (UA) Negative (Negative); Ketones,Urine Negative (Negative); Leukocyte Esterase,Urine Large (Negative); Nitrite,Urine Negative (Negative); Protein,Urine 3+ (Negative); RBC,Urine >182 /hpf (0-5); Urobilinogen,Urine <2.0 mg/dL (<2.0); WBC,Urine >182 /hpf (0-5)
[2020-12-24] MEDS ORDERED: cefTRIAXone IN SWFI 1,000 MG/10 ML SYRINGE IVP STA (13:52)
[2020-12-24] MEDS ORDERED: NALOXONE 0.4 MG/ML 1 ML VIAL IV PRN (13:56)
[2020-12-24] MEDS: SODIUM CHLORIDE 0.9% 1,000 ML IV SCH (17:03)
[2020-12-24] MEDS: ONDANSETRON 4 MG/2 ML VIAL IVP PRN (19:47)
[2020-12-24] MEDS ORDERED: polyethylene glycoL 3350 17 GM POWD.PACK PO PRN (19:59)
[2020-12-24] MEDS: allopurinoL 100 MG TAB PO SCH (21:11)
[2020-12-24] MEDS: CARBIDOPA-LEVODOPA 25-100 MG 1 EACH TAB PO SCH (21:11)
[2020-12-24] MEDS: PANTOPRAZOLE 40 MG TABLET PO SCH (21:11)
[2020-12-25] MEDS: SODIUM CHLORIDE 0.9% 1,000 ML IV SCH ×2 (04:42→17:07)
[2020-12-25] MEDS: LEVOTHYROXINE 75 MCG TAB PO SCH (06:03)
[2020-12-25] MEDS ORDERED: PANTOPRAZOLE 40 MG/10 ML VIAL IV SCH (09:00)
[2020-12-25] MEDS: PRAVASTATIN SODIUM 80 MG TAB PO SCH (09:51)
[2020-12-25] MEDS: PANTOPRAZOLE 40 MG TABLET PO SCH ×2 (09:51→21:55)
[2020-12-25] MEDS: PRAMIPEXOLE 1 MG TAB PO SCH (09:51)
[2020-12-25] MEDS: allopurinoL 100 MG TAB PO SCH ×2 (09:51→21:55)
[2020-12-25] MEDS: POTASSIUM CHLORIDE ER 20 MEQ TAB.ER PO SCH (09:51)
[2020-12-25] MEDS: TRIAMTERENE-HCTZ 37.5-25MG 1 EACH TAB PO SCH (09:51)
[2020-12-25] MEDS: ESCITALOPRAM 10 MG TAB PO SCH (09:52)
[2020-12-25] MEDS: CARBIDOPA-LEVODOPA 25-100 MG 1 EACH TAB PO SCH ×4 (09:52→21:57)
[2020-12-25] MEDS: MAGNESIUM OXIDE 400 MG TAB PO SCH (09:52)
[2020-12-25] MEDS: amLODIPine 10 MG TAB PO SCH (09:52)
[2020-12-25 12:44] LABS: African American GFR (CKD) 36.2 (60.0-200.0); Anion Gap 8.8 mmol/L (4.00-12.00); Calcium 8.8 mg/dL (8.7-10.3); Carbon Dioxide 29.2 mmol/L (21.6-31.8); Non-African American GFR(CKD) 31.2 (60.0-200.0)
--- NOTE | 2020-12-25 13:40 | P.HPIM ---
History of Present Illness H&P Date: 12/25/20 Chief Complaint: Abdominal pain, nausea vomiting This is a 75-year-old female with past medical history of CVA with residual left-sided weakness, expressive aphasia/TIA, hyperlipidemia, hypertension, chronic renal failure, hypothyroidism, obesity, anxiety, bipolar, depression, former nicotine dependence presented to the ER with complaints of nausea, vomiting, constipation, abdominal pain 2 weeks. Patient initially had gone to PCP, Dr. Nelson's office today and was referred to the ER. Patient is vague historian, majority of information obtained from chart, staff; no family at bedside. CT of abdomen and pelvis completed, reported severe right-sided hydronephrosis with new to moderate ill-defined fluid and fat stranding suggesting inflammatory process, possible markedly dilated collecting system with internal debris or blood products cannot exclude underlying neoplasm, enlarging no simple cyst with local mass effect, unable to localize distinct ureter. Afebrile, normal WBC. Hemoglobin 9.6, platelets 259, coagulation profile unremarkable, sodium 137, potassium 4.8, BUN 36, creatinine 1.86 baseline around 1.2-1.5, mildly elevated alk phos 127. UA reported many bacteria, many WBC clumps greater than 182 30 BC's and RBCs, large leukocytes negative for bilirubin, moderate blood and 3+ protein. Review of Systems ROS Statement: Those systems with pertinent positive or pertinent negative responses have been documented in the HPI. ROS Other: All systems not noted in ROS Statement are negative. 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 No adult children. However they fostered 37 children. 2 pet dogs in the home. No international travel. No experience Smoking Status: Former smoker Past Alcohol Use History: None Reported Past Drug Use History: None Reported - Past Family History Father Family Medical History: No Reported History Medications and Allergies Home Medications Medication Instructions Recorded Confirmed Type Escitalopram Oxalate [Lexapro] 10 mg PO DAILY 09/07/14 12/24/20 History Omeprazole [PriLOSEC] 20 mg PO BID 09/07/14 12/24/20 History Pravastatin Sodium [Pravachol] 80 mg PO DAILY 09/07/14 12/24/20 History allopurinoL [Zyloprim] 100 mg PO BID 09/21/17 12/24/20 History Ergocalciferol (Vitamin D2) 50,000 unit PO Q14D 05/19/19 12/24/20 History [Drisdol (50,000 Iu)] Levothyroxine Sodium [Synthroid] 150 mcg PO DAILY 05/19/19 12/24/20 History Pramipexole [Mirapex] 1 mg PO DAILY 05/19/19 12/24/20 History calcitrioL [Rocaltrol] 0.25 mcg PO SUMOTUWETHFR 05/19/19 12/24/20 History Magnesium Oxide [Mag-Ox] 400 mg PO DAILY #30 tab 06/07/19 12/24/20 Rx amLODIPine [Norvasc] 10 mg PO DAILY #30 tab 06/07/19 12/24/20 Rx Carbidopa-Levodopa 25-100 mg 1 tab PO TID 12/24/20 12/24/20 History [Sinemet 25-100 mg] Carbidopa-Levodopa 25-100 mg 2 tab PO W/SUPPER 12/24/20 12/24/20 History [Sinemet 25-100 mg] Metoprolol Tartrate [Lopressor] 50 mg PO BID 12/24/20 12/24/20 History Potassium Chloride ER [K-Dur 20] 20 meq PO DAILY 12/24/20 12/24/20 History Triamterene/Hydrochlorothiazid 1 tab PO DAILY 12/24/20 12/24/20 History [Triamterene-Hctz 37.5-25 mg Tb] polyethylene glycoL 3350 17 gm PO DAILY PRN 12/24/20 12/24/20 History [Polyethylene Glycol 3350] Allergies Allergy/AdvReac Type Severity Reaction Status Date / Time amiodarone [From Cordarone] Allergy Anaphylaxis Verified 12/24/20 11:38 cyclobenzaprine Allergy Rash/Hives Verified 12/24/20 11:38 [From Flexeril] Physical Exam Vitals: Vital Signs Temp Pulse Pulse Resp BP BP Pulse Ox 12/25/20 04:39 97.9 F 76 16 120/67 96 12/24/20 20:00 98.1 F 72 18 116/62 93 L 12/24/20 17:57 98.3 F 77 122/61 97 12/24/20 17:03 98.8 F 79 18 118/65 98 12/24/20 15:00 68 18 124/62 99 12/24/20 11:38 75 16 127/60 98 12/24/20 10:50 73 14 120/60 95 12/24/20 10:05 98.2 F 84 18 109/68 96 Intake and Output 12/24/20 12/25/20 12/25/20 22:59 06:59 14:59 Intake Total 600 Balance 600 Intake: Intake, IV Titration 600 Amount Sodium Chloride 0.9% 1, 600 000 ml @ 75 mls/hr IV . [id number] [facility] Rx#:[id number] Other: Voiding Method Diaper Weight 94.347 kg - Exam General: Sitting up in bed, awake, alert and oriented times 3, no acute distr ess,expressive aphasia HEENT: PERRL. EOMI. No pharyngeal erythema or exudate. Neck: Supple, no JVD, No adenopathy. Cardiac: Heart regular in rate and rhythm. No S3. No S4. No clicks, rubs. No murmur. Lungs: Clear breath sounds, no rhonchi, bilateral bases diminished. Abdomen: Soft, nondistended, mild diffuse tenderness , no guarding, no rigidity .No mass palpable, No organomegaly. Hyperactive bowel sounds Extremities: trace edema no cyanosis no claudication normal pulses. Skin: Warm and dry, flaky, no rash Neurologic: [No lateralizing deficits. CN II - XII grossly intact.Speech consistent with expressive aphasia, chronic residual left-sided weakness. ] Lymphatic: [No adenopathy.] Results CBC & Chem 7: 12/24/20 10:35 12/25/20 07:15 Labs: Abnormal Lab Results - Last 24 Hours (Table) 12/24/20 12/24/20 12/24/20 Range/Units 10:35 10:35 10:35 RBC 3.17 L (3.80-5.40) m/uL Hgb 9.6 L (11.4-16.0) gm/dL Hct 28.5 L (34.0-46.0) % Lymphocytes # 0.7 L (1.0-4.8) k/uL Chloride 96 L (98-107) mmol/L BUN 36 H (7-17) mg/dL Creatinine 1.86 H (0.52-1.04) mg/dL Glucose 142 H (74-99) mg/dL AST 10 L (14-36) U/L Alkaline Phosphatase 127 H (38-126) U/L Urine Appearance Turbid H (Clear) Urine Protein 3+ H (Negative) Urine Blood Moderate H (Negative) Ur Leukocyte Esterase Large H (Negative) Urine RBC >182 H (0-5) /hpf Urine WBC >182 H (0-5) /hpf Urine WBC Clumps Many H (None) /hpf Urine Bacteria Many H (None) /hpf Microbiology - Last 24 Hours (Table) 12/24/20 10:35 Urine Culture - Preliminary Urine,Voided Thrombosis Risk Factor Assmnt - Choose All That Apply Any of the Below Risk Factors Present?: Yes Each Factor Represents 1 point: Obesity (BMI >25) Other Risk Factors: Yes Each Risk Factor Represents 3 Points: Age 75 years or older Other congenital or acquired thrombophilia - If yes, enter type in comment: No Thrombosis Risk Factor Assessment Total Risk Factor Score: 4 Thrombosis Risk Factor Assessment Level: Moderate Risk Assessment and Plan Assessment: Acute Pyelonephritis, severe right hydronephrosis, dilated collecting system with internal debris or blood product , possible neoplasm per CT. 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 Hypothyroidism Bipolar disorder Obesity, BMI 32.6 Plan: Continue on current medication regime ,monitoring and tympanic treatment. Maintain IV fluid hydration and IV antibiotics. Urology consult in place, recommendations pending. Senokot-S twice a day added to med regimen; discussed with RN to check for impaction, patient reports no bowel movement 1 week and is on Parkinson's medication regimen which contribute to constipation. The impression and plan of care has been dictated as directed. : I performed a history and examination of this patient, discussed the same with the dictator. I agree with the dictator's note ,documented as a scribe. Any additional findings or plans will be noted.
[2020-12-25] MEDS: SENNOSIDES-DOCUSATE SODIUM 1 EACH TAB PO SCH ×2 (14:44→22:56)
[2020-12-25] MEDS: ACETAMINOPHEN TAB 325 MG TAB PO PRN (17:07)
--- NOTE | 2020-12-25 21:25 | P.GSCN ---
History of Present Illness Consult date: 12/25/20 Reason for Consult: Hydronephrosis Requesting physician: Gume Santiago Jr History of present illness: The patient is a 75-year-old white female admitted with complaints of nausea, vomiting, and abdominal pain for approximately 2 weeks. She denies any prior history of urolithiasis, but has been treated for UTIs in the past. She denies dysuria and hematuria. A CT scan of the abdomen and pelvis revealed severe right-sided hydronephrosis with ill-defined fluid and fat stranding suggesting inflammatory process, possible markedly dilated collecting system with internal debris or blood products. A CT scan in May 2019 showed bilateral hydronephrosis, greater on the right than the left, but the right hydronephrosis is significantly worse now than it was at that time. Urinalysis is suggestive of a UTI. A urine culture is pending. In the meantime, she is receiving Rocephin. 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 No adult children. However they fostered 37 children. 2 pet dogs in the home. No international travel. No experience Smoking Status: Former smoker Past Alcohol Use History: None Reported Past Drug Use History: None Reported - Past Family History Father Family Medical History: No Reported History Medications and Allergies Home Medications Medication Instructions Recorded Confirmed Type Escitalopram Oxalate [Lexapro] 10 mg PO DAILY 09/07/14 12/24/20 History Omeprazole [PriLOSEC] 20 mg PO BID 09/07/14 12/24/20 History Pravastatin Sodium [Pravachol] 80 mg PO DAILY 09/07/14 12/24/20 History allopurinoL [Zyloprim] 100 mg PO BID 09/21/17 12/24/20 History Ergocalciferol (Vitamin D2) 50,000 unit PO Q14D 05/19/19 12/24/20 History [Drisdol (50,000 Iu)] Levothyroxine Sodium [Synthroid] 150 mcg PO DAILY 05/19/19 12/24/20 History Pramipexole [Mirapex] 1 mg PO DAILY 05/19/19 12/24/20 History calcitrioL [Rocaltrol] 0.25 mcg PO SUMOTUWETHFR 05/19/19 12/24/20 History Magnesium Oxide [Mag-Ox] 400 mg PO DAILY #30 tab 06/07/19 12/24/20 Rx amLODIPine [Norvasc] 10 mg PO DAILY #30 tab 06/07/19 12/24/20 Rx Carbidopa-Levodopa 25-100 mg 1 tab PO TID 12/24/20 12/24/20 History [Sinemet 25-100 mg] Carbidopa-Levodopa 25-100 mg 2 tab PO W/SUPPER 12/24/20 12/24/20 History [Sinemet 25-100 mg] Metoprolol Tartrate [Lopressor] 50 mg PO BID 12/24/20 12/24/20 History Potassium Chloride ER [K-Dur 20] 20 meq PO DAILY 12/24/20 12/24/20 History Triamterene/Hydrochlorothiazid 1 tab PO DAILY 12/24/20 12/24/20 History [Triamterene-Hctz 37.5-25 mg Tb] polyethylene glycoL 3350 17 gm PO DAILY PRN 12/24/20 12/24/20 History [Polyethylene Glycol 3350] Allergies Allergy/AdvReac Type Severity Reaction Status Date / Time amiodarone [From Cordarone] Allergy Anaphylaxis Verified 12/24/20 11:38 cyclobenzaprine Allergy Rash/Hives Verified 12/24/20 11:38 [From Flexeril] Surgical - Exam Vital Signs Temp Pulse Resp BP Pulse Ox 98.2 F 84 18 109/68 96 12/24/20 10:05 12/24/20 10:12/24/20 10:12/24/20 10:05 12/24/20 10:05 - General well developed, well nourished, no distress - Respiratory normal respiratory effort - Abdomen Abdomen: soft, tender (Mild left lower quadrant tenderness), no guarding, no rigid, no rebound, no distended - Psychiatric oriented to time, oriented to person, oriented to place, speech is normal, memory intact Results - Labs 12/24/20 10:35 12/25/20 07:15 Abnormal Lab Results - Last 24 Hours (Table) 12/24/20 12/24/20 12/24/20 Range/Units 10:35 10:35 10:35 RBC 3.17 L (3.80-5.40) m/uL Hgb 9.6 L (11.4-16.0) gm/dL Hct 28.5 L (34.0-46.0) % Lymphocytes # 0.7 L (1.0-4.8) k/uL Chloride 96 L (98-107) mmol/L BUN 36 H (7-17) mg/dL Creatinine 1.86 H (0.52-1.04) mg/dL Glucose 142 H (74-99) mg/dL AST 10 L (14-36) U/L Alkaline Phosphatase 127 H (38-126) U/L Urine Appearance Turbid H (Clear) Urine Protein 3+ H (Negative) Urine Blood Moderate H (Negative) Ur Leukocyte Esterase Large H (Negative) Urine RBC >182 H (0-5) /hpf Urine WBC >182 H (0-5) /hpf Urine WBC Clumps Many H (None) /hpf Urine Bacteria Many H (None) /hpf Microbiology - Last 24 Hours (Table) 12/24/20 10:35 Urine Culture - Preliminary Urine,Voided Diabetes panel 12/24/20 Range/Units 10:35 Sodium 137 (137-145) mmol/L Potassium 4.8 (3.5-5.1) mmol/L Chloride 96 L (98-107) mmol/L Carbon Dioxide 30 (22-30) mmol/L BUN 36 H (7-17) mg/dL Creatinine 1.86 H (0.52-1.04) mg/dL Glucose 142 H (74-99) mg/dL Calcium 10.0 (8.4-10.2) mg/dL AST 10 L (14-36) U/L ALT <6 (4-34) U/L Alkaline Phosphatase 127 H (38-126) U/L Total Protein 7.3 (6.3-8.2) g/dL Albumin 3.7 (3.5-5.0) g/dL Calcium panel 12/24/20 Range/Units 10:35 Calcium 10.0 (8.4-10.2) mg/dL Albumin 3.7 (3.5-5.0) g/dL Pituitary panel 12/24/20 Range/Units 10:35 Sodium 137 (137-145) mmol/L Potassium 4.8 (3.5-5.1) mmol/L Chloride 96 L (98-107) mmol/L Carbon Dioxide 30 (22-30) mmol/L BUN 36 H (7-17) mg/dL Creatinine 1.86 H (0.52-1.04) mg/dL Glucose 142 H (74-99) mg/dL Calcium 10.0 (8.4-10.2) mg/dL Adrenal panel 12/24/20 Range/Units 10:35 Sodium 137 (137-145) mmol/L Potassium 4.8 (3.5-5.1) mmol/L Chloride 96 L (98-107) mmol/L Carbon Dioxide 30 (22-30) mmol/L BUN 36 H (7-17) mg/dL Creatinine 1.86 H (0.52-1.04) mg/dL Glucose 142 H (74-99) mg/dL Calcium 10.0 (8.4-10.2) mg/dL Total Bilirubin 0.7 (0.2-1.3) mg/dL AST 10 L (14-36) U/L ALT <6 (4-34) U/L Alkaline Phosphatase 127 H (38-126) U/L Total Protein 7.3 (6.3-8.2) g/dL Albumin 3.7 (3.5-5.0) g/dL - Imaging CT scan - abdomen: report reviewed, image reviewed Assessment and Plan (1) Acute pyelonephritis Current Visit: Yes Status: Acute Code(s): N10 - ACUTE PYELONEPHRITIS SNOMED Code(s): 77758115 (2) Hydronephrosis Current Visit: No Status: Acute Code(s): N13.30 - UNSPECIFIED HYDRONEPHROSIS SNOMED Code(s): 42590176 Plan: The cause of the patient's right hydronephrosis is unclear. I intend to perform cystoscopy, bilateral retrograde pyelograms, possible ureteral stent insertion. I have discussed the rationale for the procedure with the patient, and explained potential risks which include anesthesia, bleeding, infection, ureteral injury, and inability to successfully place the stent. Time with Patient: Greater than 30
[2020-12-26] MEDS: LEVOTHYROXINE 75 MCG TAB PO SCH (06:04)
[2020-12-26] MEDS: ONDANSETRON 4 MG/2 ML VIAL IVP PRN (06:04)
[2020-12-26] MEDS: SODIUM CHLORIDE 0.9% 1,000 ML IV SCH ×2 (07:11→08:27)
[2020-12-26] MEDS: CARBIDOPA-LEVODOPA 25-100 MG 1 EACH TAB PO SCH ×4 (08:26→22:10)
[2020-12-26] MEDS: allopurinoL 100 MG TAB PO SCH ×2 (08:26→22:11)
[2020-12-26] MEDS ORDERED: IV FLUID CONTINUATION 1,000 ML IV ONE (10:32)
[2020-12-26 11:38] LABS: African American GFR (CKD) 42.5 (60.0-200.0); Anion Gap 7.3 mmol/L (4.00-12.00); BUN/Creat Ratio 16.43 Ratio (12.00-20.00); Calcium 8.8 mg/dL (8.7-10.3); Carbon Dioxide 28.7 mmol/L (21.6-31.8); Non-African American GFR(CKD) 36.7 (60.0-200.0); Potassium 3.8 mmol/L (3.5-5.5)
[2020-12-26] MEDS: amLODIPine 10 MG TAB PO SCH (12:13)
[2020-12-26] MEDS: TRIAMTERENE-HCTZ 37.5-25MG 1 EACH TAB PO SCH (12:13)
[2020-12-26] MEDS: SENNOSIDES-DOCUSATE SODIUM 1 EACH TAB PO SCH ×2 (12:13→22:10)
[2020-12-26] MEDS ORDERED: fentaNYL (PF) 50 MCG/ML 2 ML AMP ONE (12:27)
[2020-12-26] MEDS ORDERED: PROPOFOL 10 MG/ML 20 ML VIAL IV ONE (12:27)
[2020-12-26] MEDS ORDERED: MIDAZOLAM 2 MG/2 ML VIAL ONE (12:27)
[2020-12-26] MEDS ORDERED: IOPAMIDOL-300 50ML BTL MISCELLANE ONE ×2 (12:56)
[2020-12-26] MEDS ORDERED: ONDANSETRON 4 MG/2 ML VIAL IVP ONE (13:42)
--- NOTE | 2020-12-26 13:44 | P.PN ---
Subjective Progress Note Date: 12/26/20 This is a 75-year-old female with past medical history of CVA with residual left-sided weakness, expressive aphasia/TIA, hyperlipidemia, hypertension, chronic renal failure, hypothyroidism, obesity, anxiety, bipolar, depression, former nicotine dependence presented to the ER with complaints of nausea, vomi ting, constipation, abdominal pain 2 weeks. Patient initially had gone to PCP, Dr. Nelson's office today and was referred to the ER. Patient is vague historian, majority of information obtained from chart, staff; no family at bedside. CT of abdomen and pelvis completed, reported severe right-sided hydronephrosis with new to moderate ill-defined fluid and fat stranding suggesting inflammatory process, possible markedly dilated collecting system with internal debris or blood products cannot exclude underlying neoplasm, enlarging no simple cyst with local mass effect, unable to localize distinct ureter. Afebrile, normal WBC. Hemoglobin 9.6, platelets 259, coagulation profile unremarkable, sodium 137, potassium 4.8, BUN 36, creatinine 1.86 baseline around 1.2-1.5, mildly elevated alk phos 127. UA reported many bacteria, many WBC clumps greater than 182 30 BC's and RBCs, large leukocytes negative for bilirubin, moderate blood and 3+ protein. 12/26/2020 Complains of nausea this morning. Cystoscopy pending this morning with urology, urine culture reporting group B strep agalactiae. Maintained on Rocephin. Afebrile. Renal function continues improving down to 1.4. Nursing reports no fecal impaction yesterday. Denies chest pain, palpitations or shortness of breath. Objective - Vital Signs Vital signs: Vital Signs Temp 97.9 F 12/26/20 05:00 Pulse 76 12/26/20 05:00 Resp 16 12/26/20 05:00 BP 120/64 12/26/20 05:00 Pulse Ox 93 L 12/26/20 05:00 Intake & Output 12/25/20 12/26/20 12/26/20 18:59 06:59 18:59 Intake Total 950 Balance 950 Intake: Intake, IV Titration 950 Amount Sodium Chloride 0.9% 1, 900 000 ml @ 75 mls/hr IV . [id number] [facility] Rx#:[id number] cefTRIAXone 1 gm In 50 Sodium Chloride 0.9% 50 ml @ 100 mls/hr IVPB Q12HR [facility] Rx#:[id number] Other: Voiding Method Diaper Incontinent Incontinent # Voids 1 1 # Bowel Movements 0 - Exam - Exam General: Sitting up in bed, awake, alert and oriented times 3, no acute dis tress,expressive aphasia HEENT: PERRL. EOMI. No pharyngeal erythema or exudate. Neck: Supple, no JVD. Cardiac: Heart regular in rate and rhythm. No S3. No S4. No clicks, rubs. No murmur. Lungs: Lungs clear to auscultation, bilateral bases diminished . Abdomen: Soft, nondistended, mild diffuse tenderness , no guarding, no rigidity. Positive bowel sounds. Extremities: trace edema no cyanosis no claudication normal pulses. Skin: Warm and dry, flaky, no rash Neurologic: [No lateralizing deficits. CN II - XII grossly intact.Speech consistent with expressive aphasia, chronic residual left-sided weakness. ] Microbiology 12/24/20 10:35 Urine,Voided Urine Culture - Final Strep agalactiae - (group b) - Labs CBC & Chem 7: 12/24/20 10:35 12/26/20 07:15 Labs: Abnormal Lab Results - Last 24 Hours (Table) 12/25/20 Range/Units 07:15 BUN 32.0 H (9.0-27.0) mg/dL Creatinine 1.6 H (0.6-1.5) mg/dL Est GFR (CKD-EPI)AfAm 36.2 L (60.0-200.0) Est GFR (CKD-EPI)NonAf 31.2 L (60.0-200.0) Microbiology - Last 24 Hours (Table) 12/24/20 10:35 Urine Culture - Final Urine,Voided Strep agalactiae - (group b) Assessment and Plan Assessment: Acute UTI with Pyelonephritis, severe right hydronephrosis, dilated collecting system with internal debris or blood product , possible neoplasm per CT. urine culture reporting Strep agalactiae - (group b). 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 Hypothyroidism Bipolar disorder Obesity, BMI 32.6 Plan: Continue on current medication regime ,monitoring and tympanic treatment. Cystoscopy pending.continue antibiotics, IV fluid hydration and IV antibiotics. Maintain bowel regimen with Senokot S secondary to contributing Parkinson's medication regimen. Prognosis guarded given multiple complex medical issues. Renal function improving, continue close monitoring of renal function with repeat labs ordered for a.m. The impression and plan of care has been dictated as directed. : I performed a history and examination of this patient, discussed the same with the dictator. I agree with the dictator's note ,documented as a scribe. Any additional findings or plans will be noted.
[2020-12-26] MEDS: PANTOPRAZOLE 40 MG TABLET PO SCH ×2 (14:56→22:10)
[2020-12-26] MEDS: MAGNESIUM OXIDE 400 MG TAB PO SCH (15:09)
[2020-12-26] MEDS: ESCITALOPRAM 10 MG TAB PO SCH (15:09)
[2020-12-26] MEDS: POTASSIUM CHLORIDE ER 20 MEQ TAB.ER PO SCH (15:10)
[2020-12-26] MEDS: PRAMIPEXOLE 1 MG TAB PO SCH (15:11)
[2020-12-26] MEDS: PRAVASTATIN SODIUM 80 MG TAB PO SCH (15:11)
[2020-12-26 15:28] LABS: Basophils # (A) 0.01 X 10*3/uL (0.00-0.10); Basophils % (A) 0.3 %; Eosinophils # (A) 0.14 X 10*3/uL (0.04-0.35); Eosinophils % (A) 3.5 %; HCT 21.4 % (37.2-46.3); HGB 6.6 g/dL (12.0-15.0); Lymphocytes # (A) 0.51 X 10*3/uL (0.90-5.00); Lymphocytes % (A) 12.8 %; MCH 28.8 pg (27.0-32.0); MCHC 30.8 g/dL (32.0-37.0); MCV 93.4 fL (80.0-97.0); Monocytes # (A) 0.29 X 10*3/uL (0.20-1.00); Monocytes % (A) 7.3 %; Neutrophils # (A) 3.01 X 10*3/uL (1.80-7.70); Neutrophils % (A) 75.1 %; Platelet Count 193 X 10*3/uL (140-440); RBC 2.29 X 10*6/uL (4.10-5.20); RDW 12.6 % (11.5-14.5)
[2020-12-26 16:51] LABS: Basophils % (A) 0 %; Eosinophils # (A) 0.2 k/uL (0-0.7); Eosinophils % (A) 4 %; HCT 23.4 % (34.0-46.0); Lymphocytes # (A) 0.5 k/uL (1.0-4.8); Lymphocytes % (A) 10 %; MCHC 32.2 g/dL (31.0-37.0); MCV 90.2 fL (80.0-100.0); Mean Platelet Volume 7.5; Monocytes # (A) 0.2 k/uL (0-1.0); Monocytes % (A) 4 %; Neutrophils # (A) 4.2 k/uL (1.3-7.7); Neutrophils % (A) 82 %; Platelet Count 238 k/uL (150-450); RDW 13.5 % (11.5-15.5); WBC 5.1 k/uL (3.8-10.6)
[2020-12-26 17:06] LABS: HGB 7.5 gm/dL (11.4-16.0)
--- NOTE | 2020-12-26 21:28 | P.OP ---
Date of Procedure: 12/26/20 Preoperative Diagnosis: Right hydronephrosis, UTI Postoperative Diagnosis: Same Procedure(s) Performed: Cystoscopy, bilateral retrograde pyelograms, right ureteral stent insertion Anesthesia: REGISALEONIDES Surgeon: Reese Lyn Estimated Blood Loss (ml): 0 IV fluids (ml): 600 Pathology: none sent Condition: stable Disposition: PACU Indications for Procedure: The patient is a 75-year-old white female with a history of recurrent UTIs. Computed tomography scan shows significant right hydronephrosis with a hyperdense mass medial to the kidney, presumed to represent a dilated renal pelvis. Inflammation is noted along the proximal ureter. A urine culture shows group B strep. Previous computed tomography scan shows right hydronephrosis to a lesser degree, along with mild left hydronephrosis. Operative Findings: Cystitis. Narrowed right UPJ, with markedly dilated right renal pelvis. Description of Procedure: The patient was taken to the operating room and placed in the dorsolithotomy pos ition, with legs supported in Panda stirrups. The external genitalia was prepped and draped sterilely. The 30 lens was used to introduce the 22-Malian Stortz cystoscopic sheath through the urethra and into the bladder under direct vision. The urine within the bladder was extremely cloudy, requiring that the bladder be irrigated and drained multiple times before adequate inspection could be performed. The bladder was examined in its entirety. Both ureteral orifices were of normal anatomic location and configuration, though the right ureteral orifice was difficult to identify due to surrounding inflammation. No tumors or foreign bodies were seen, though there was evidence of cystitis. Using a 10- Malian cone-tipped catheter, a left retrograde pyelogram was performed. The ureter appeared normal in course and caliber, and there was no evidence of hydronephrosis. The right ureteral orifice could not be cannulated with the cone-tipped catheter. A 0.035 inch Glidewire was passed through the cystoscope. The right ureteral orifice was cannulated, and the Glidewire was slowly advanced up to the renal pelvis. Some tortuosity of the ureter just distal to the ureteropelvic junction was noted. A 5-Malian open-ended catheter was passed over the wire, and the wire was removed. Contrast was injected to delineate the anatomy. The renal pelvis was noted to be markedly dilated. The proximal ureter just distal to the ureteropelvic junction was again noted to be tortuous. The Glidewire was passed through the open-ended catheter, which was removed. A 22 cm, 6-Malian double-J ureteral stent was placed over the wire. Proper stent positioning was verified fluoroscopically and endoscopically. The bladder was emptied and the cystoscope removed. The patient tolerated the procedure well was taken to the recovery room in stable condition.
[2020-12-27] MEDS: SODIUM CHLORIDE 0.9% 1,000 ML IV SCH ×3 (01:37→22:19)
[2020-12-27] MEDS: ONDANSETRON 4 MG/2 ML VIAL IVP PRN ×2 (04:28→17:00)
[2020-12-27] MEDS: LEVOTHYROXINE 75 MCG TAB PO SCH (05:48)
[2020-12-27] MEDS: CARBIDOPA-LEVODOPA 25-100 MG 1 EACH TAB PO SCH ×4 (07:34→21:21)
[2020-12-27] MEDS: PANTOPRAZOLE 40 MG TABLET PO SCH ×2 (07:34→21:22)
[2020-12-27] MEDS: POTASSIUM CHLORIDE ER 20 MEQ TAB.ER PO SCH (07:34)
[2020-12-27] MEDS: SENNOSIDES-DOCUSATE SODIUM 1 EACH TAB PO SCH ×2 (07:34→21:22)
[2020-12-27] MEDS: MAGNESIUM OXIDE 400 MG TAB PO SCH (07:34)
[2020-12-27] MEDS: allopurinoL 100 MG TAB PO SCH ×2 (07:35→21:21)
[2020-12-27] MEDS: amLODIPine 10 MG TAB PO SCH (07:35)
[2020-12-27] MEDS: PRAMIPEXOLE 1 MG TAB PO SCH (07:36)
[2020-12-27] MEDS: PRAVASTATIN SODIUM 80 MG TAB PO SCH (07:36)
[2020-12-27] MEDS: TRIAMTERENE-HCTZ 37.5-25MG 1 EACH TAB PO SCH (07:37)
[2020-12-27] MEDS: ESCITALOPRAM 10 MG TAB PO SCH (08:29)
--- NOTE | 2020-12-27 08:41 | P.PN ---
Progress Note - Text Progress Note Date: 12/27/20 Mrs. Carmona underwent right ureteral stent insertion yesterday. She is afebrile. Unfortunately, she is not feeling any better this morning. Her primary complaint is nausea. I will continue to follow her with you.
[2020-12-27 12:50] LABS: HCT 21.8 % (34.0-46.0); HGB 7.2 gm/dL (11.4-16.0); Hypochromasia Slight; MCH 29.9 pg (25.0-35.0); MCV 90.5 fL (80.0-100.0); Mean Platelet Volume 7.6; Platelet Count 219 k/uL (150-450); RBC 2.41 m/uL (3.80-5.40); RDW 13.2 % (11.5-15.5)
[2020-12-27 13:00] LABS: African American GFR (CKD) 52 (>60 ml/min/1.73 sqM); Anion Gap 6 mmol/L; Blood Urea Nitrogen 16 mg/dL (7-17); Carbon Dioxide 31 mmol/L (22-30); Chloride 100 mmol/L (98-107); Glucose 107 mg/dL (74-99); Non-African American GFR(CKD) 45 (>60 ml/min/1.73 sqM); Sodium 137 mmol/L (137-145)
--- NOTE | 2020-12-27 15:05 | P.PN ---
Subjective Progress Note Date: 12/27/20 This is a 75-year-old female with past medical history of CVA with residual left-sided weakness, expressive aphasia/TIA, hyperlipidemia, hypertension, chronic renal failure, hypothyroidism, obesity, anxiety, bipolar, depression, former nicotine dependence presented to the ER with complaints of nausea, vomi ting, constipation, abdominal pain 2 weeks. Patient initially had gone to PCP, Dr. Nelson's office today and was referred to the ER. Patient is vague historian, majority of information obtained from chart, staff; no family at bedside. CT of abdomen and pelvis completed, reported severe right-sided hydronephrosis with new to moderate ill-defined fluid and fat stranding suggesting inflammatory process, possible markedly dilated collecting system with internal debris or blood products cannot exclude underlying neoplasm, enlarging no simple cyst with local mass effect, unable to localize distinct ureter. Afebrile, normal WBC. Hemoglobin 9.6, platelets 259, coagulation profile unremarkable, sodium 137, potassium 4.8, BUN 36, creatinine 1.86 baseline around 1.2-1.5, mildly elevated alk phos 127. UA reported many bacteria, many WBC clumps greater than 182 30 BC's and RBCs, large leukocytes negative for bilirubin, moderate blood and 3+ protein. 12/26/2020 Complains of nausea this morning. Cystoscopy pending this morning with urology, urine culture reporting group B strep agalactiae. Maintained on Rocephin. Afebrile. Renal function continues improving down to 1.4. Nursing reports no fecal impaction yesterday. Denies chest pain, palpitations or shortness of breath. 12/27/2020 status post cystoscopy with right ureteral stent insertion yesterday, tolerated procedure well. Renal function/hemoglobin/labs pending. Repeated hemoglobin yesterday 7.5. T-max 99. Complains of nausea. Maintained on gentle IV fluid hydration and IV antibiotics. Objective - Vital Signs Vital signs: Vital Signs Temp 98.6 F 12/27/20 04:20 Pulse 85 12/27/20 10:50 Resp 20 12/27/20 10:50 BP 160/74 12/27/20 04:20 Pulse Ox 91 L 12/27/20 04:20 Intake & Output 12/26/20 12/27/20 12/27/20 18:59 06:59 18:59 Intake Total 750 1400 Output Total 0 Balance 750 1400 Intake: IV 750 Intake, IV Titration 900 Amount Sodium Chloride 0.9% 1, 900 000 ml @ 75 mls/hr IV . [id number] [facility] Rx#:[id number] Oral 500 Output: Estimated Blood Loss 0 Other: Voiding Method Incontinent Incontinent Diaper # Voids 1 3 # Bowel Movements 0 - Exam - Exam General: Alert and oriented 3 ,sitting up in bed, no acute distress,expressive aphasia HEENT: PERRL. EOMI. No pharyngeal erythema or exudate. Neck: Supple, no JVD. Cardiac: Heart regular in rate and rhythm. No S3. No S4. No clicks, rubs. No murmur. Lungs: Lungs clear to auscultation, bilateral bases diminished . Abdomen: Soft, nondistended, mild diffuse tenderness , no guarding, no rigidity. Positive bowel sounds. Extremities: trace edema no cyanosis no claudication normal pulses. Skin: Warm and dry, flaky, no rash Neurologic: [No lateralizing deficits. CN II - XII grossly intact.Speech consistent with expressive aphasia, chronic residual left-sided weakness. ] Microbiology 12/24/20 10:35 Urine,Voided Urine Culture - Final Strep agalactiae - (group b) - Labs CBC & Chem 7: 12/27/20 12:13 12/27/20 12:13 Labs: Abnormal Lab Results - Last 24 Hours (Table) 12/26/20 12/26/20 Range/Units 07:15 16:27 WBC 4.00 L (4.50-10.00) X 10*3/uL RBC 2.29 L 2.60 L (4.10-5.20) X 10*6/uL Hgb 6.6 L* 7.5 L D (12.0-15.0) g/dL Hct 21.4 L 23.4 L (37.2-46.3) % MCHC 30.8 L (32.0-37.0) g/dL Lymphocytes # 0.51 L 0.5 L (0.90-5.00) X 10*3/uL Assessment and Plan Assessment: Acute UTI with Pyelonephritis, severe right hydronephrosis, dilated collecting system with internal debris or blood product , possible neoplasm per CT. urine culture reporting Strep agalactiae - (group b). Status post cystoscopy with right ureteral stent insertion, no tumors or foreign body seen, evidence of cystitis reported. 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 Hypothyroidism Bipolar disorder Obesity, BMI 32.6 Plan: Continue on current medication regime ,monitoring and tympanic treatment. Labs pending. Maintain IV fluid hydration and IV antibiotics. Continue bowel regimen.Cose monitoring of renal function with repeat labs ordered for a.m. discharge planning in progress in the next 24-48 hours pending nausea subsided and patient able to tolerate diet. The impression and plan of care has been dictated as directed. : I performed a history and examination of this patient, discussed the same with the dictator. I agree with the dictator's note ,documented as a scribe. Any additional findings or plans will be noted.
[2020-12-27] MEDS: ACETAMINOPHEN TAB 325 MG TAB PO PRN ×2 (16:44→21:22)
[2020-12-28] MEDS: ONDANSETRON 4 MG/2 ML VIAL IVP PRN (01:06)
[2020-12-28] MEDS: LEVOTHYROXINE 75 MCG TAB PO SCH (06:20)
[2020-12-28] MEDS: POTASSIUM CHLORIDE ER 20 MEQ TAB.ER PO SCH (10:00)
[2020-12-28] MEDS: SENNOSIDES-DOCUSATE SODIUM 1 EACH TAB PO SCH ×2 (10:00→20:58)
[2020-12-28] MEDS: MAGNESIUM OXIDE 400 MG TAB PO SCH (10:00)
[2020-12-28] MEDS: allopurinoL 100 MG TAB PO SCH ×2 (10:00→20:59)
[2020-12-28] MEDS: amLODIPine 10 MG TAB PO SCH (10:00)
[2020-12-28] MEDS: PANTOPRAZOLE 40 MG TABLET PO SCH ×2 (10:00→20:59)
[2020-12-28] MEDS: CARBIDOPA-LEVODOPA 25-100 MG 1 EACH TAB PO SCH ×4 (10:01→20:59)
[2020-12-28] MEDS: TRIAMTERENE-HCTZ 37.5-25MG 1 EACH TAB PO SCH (10:01)
[2020-12-28] MEDS: PRAVASTATIN SODIUM 80 MG TAB PO SCH (10:02)
[2020-12-28] MEDS: PRAMIPEXOLE 1 MG TAB PO SCH (10:02)
[2020-12-28] MEDS: ESCITALOPRAM 10 MG TAB PO SCH (10:02)
[2020-12-28] MEDS: SODIUM CHLORIDE 0.9% 1,000 ML IV SCH (11:40)
[2020-12-28 12:30] LABS: African American GFR (CKD) 51.2 (60.0-200.0); Calcium 8.6 mg/dL (8.7-10.3); Non-African American GFR(CKD) 44.2 (60.0-200.0); Potassium 3.6 mmol/L (3.5-5.5)
[2020-12-28 13:10] LABS: Basophils # (A) 0.01 X 10*3/uL (0.00-0.10); Basophils % (A) 0.1 %; Eosinophils % (A) 2.5 %; HCT 21.4 % (37.2-46.3); HGB 6.7 g/dL (12.0-15.0); Lymphocytes # (A) 0.44 X 10*3/uL (0.90-5.00); Lymphocytes % (A) 5.6 %; MCH 29.4 pg (27.0-32.0); MCHC 31.3 g/dL (32.0-37.0); MCV 93.9 fL (80.0-97.0); Mean Platelet Volume 10.3 fL (9.5-12.2); Monocytes # (A) 0.34 X 10*3/uL (0.20-1.00); Monocytes % (A) 4.3 %; Neutrophils # (A) 6.79 X 10*3/uL (1.80-7.70); Neutrophils % (A) 86.6 %; Platelet Count 200 X 10*3/uL (140-440); RBC 2.28 X 10*6/uL (4.10-5.20); RDW 12.7 % (11.5-14.5); WBC 7.85 X 10*3/uL (4.50-10.00)
[2020-12-28] MEDS ORDERED: FUROSEMIDE 10 MG/ML 2 ML VIAL IV ONE (15:07)
--- NOTE | 2020-12-28 15:38 | P.PN ---
Progress Note - Text Progress Note Date: 12/28/20 Mrs. Carmona states that she had a bowel movement and is feeling better today. She denies hematuria. She remains afebrile. Her serum creatinine level is stable at 1.2. I do not recommend any further urologic evaluation or treatment during this hospitalization. I intend to perform ureteroscopy in 3-4 weeks to determine the cause of her ureteral obstruction. Please notify me if I can be of any further assistance during this hospitalization.
[2020-12-29] MEDS: ONDANSETRON 4 MG/2 ML VIAL IVP PRN (01:09)
[2020-12-29] MEDS: ACETAMINOPHEN TAB 325 MG TAB PO PRN ×2 (03:13→14:03)
[2020-12-29] MEDS: SODIUM CHLORIDE 0.9% 1,000 ML IV SCH ×2 (06:09→14:06)
[2020-12-29] MEDS: LEVOTHYROXINE 75 MCG TAB PO SCH (06:09)
[2020-12-29 07:59] LABS: Basophils % (A) 0 %; Eosinophils # (A) 0.3 k/uL (0-0.7); Eosinophils % (A) 3 %; HCT 23.8 % (34.0-46.0); HGB 7.8 gm/dL (11.4-16.0); Lymphocytes # (A) 0.6 k/uL (1.0-4.8); Lymphocytes % (A) 7 %; MCH 29.2 pg (25.0-35.0); MCHC 32.9 g/dL (31.0-37.0); MCV 88.5 fL (80.0-100.0); Mean Platelet Volume 7.7; Monocytes # (A) 0.3 k/uL (0-1.0); Monocytes % (A) 3 %; Neutrophils # (A) 7.7 k/uL (1.3-7.7); Neutrophils % (A) 86 %; Platelet Count 222 k/uL (150-450); RBC 2.69 m/uL (3.80-5.40); RDW 13.9 % (11.5-15.5)
[2020-12-29] MEDS: POTASSIUM CHLORIDE ER 20 MEQ TAB.ER PO SCH (09:25)
[2020-12-29] MEDS: allopurinoL 100 MG TAB PO SCH ×2 (09:25→21:50)
[2020-12-29] MEDS: MAGNESIUM OXIDE 400 MG TAB PO SCH (09:25)
[2020-12-29] MEDS: PANTOPRAZOLE 40 MG TABLET PO SCH ×2 (09:25→21:50)
[2020-12-29] MEDS: amLODIPine 10 MG TAB PO SCH (09:25)
[2020-12-29] MEDS: SENNOSIDES-DOCUSATE SODIUM 1 EACH TAB PO SCH ×2 (09:25→21:49)
[2020-12-29] MEDS: CARBIDOPA-LEVODOPA 25-100 MG 1 EACH TAB PO SCH ×4 (09:26→18:39)
[2020-12-29] MEDS: PRAMIPEXOLE 1 MG TAB PO SCH (09:26)
[2020-12-29] MEDS: TRIAMTERENE-HCTZ 37.5-25MG 1 EACH TAB PO SCH (09:26)
[2020-12-29] MEDS: PRAVASTATIN SODIUM 80 MG TAB PO SCH (09:27)
[2020-12-29] MEDS: ESCITALOPRAM 10 MG TAB PO SCH (09:27)
--- NOTE | 2020-12-29 13:39 | P.PN ---
Subjective Progress Note Date: 12/29/20 Principal diagnosis: Normal pain, nausea vomiting 75-year-old female patient admitted for abdominal pain, nausea vomiting, constipation for approximately 2 weeks. Past medical history CVA with left- sided weakness, expressive aphasia, chronic renal failure, hypertension, hyperlipidemia, morbid obesity, anxiety, bipolar. Currently patient sitting up in chair post workup with physical therapy where she walked approximately 4 feet as she did yesterday. Patient denies headache, chest pain or pressure, headache, vomiting. Patient does complain of continual nausea. Most C recent lab work WBC of 9.0 hemoglobin of 7.8, hematocrit 23.8, platelet count of 222. Recent set of vitals afebrile 98.5, heart rate is 77, Restoril rate of 18, blood pressure is 125/68, she maintains oxygen saturation 96% on 2 L nasal cannula. Objective - Vital Signs Vital signs: Vital Signs Temp 98.5 F 12/29/20 12:40 Pulse 77 12/29/20 12:40 Resp 18 12/29/20 12:40 BP 125/68 12/29/20 12:40 Pulse Ox 96 12/29/20 12:40 Intake & Output 12/28/20 12/29/20 12/29/20 18:59 06:59 18:59 Intake Total 490 310 Balance 490 310 Intake: Intake, IV Titration 490 Amount Sodium Chloride 0.9% 1, 440 000 ml @ 75 mls/hr IV . [id number] [facility] Rx#:[id number] cefTRIAXone 1 gm In 50 Sodium Chloride 0.9% 50 ml @ 100 mls/hr IVPB Q12HR [facility] Rx#:[id number] Blood Product 310 Rc As-1 Unit 310 [id number] Other: Voiding Method Diaper Diaper Diaper # Voids 4 # Bowel Movements 1 - Exam GENERAL: Well-appearing, expressive aphasia, morbidly obese and in no acute distress. HEAD: Atraumatic, normocephalic. EYES: Pupils equal round and reactive to light, extraocular movements intact, sclera anicteric, conjunctiva are normal. ENT:nares patent, oropharynx clear without exudates. Moist mucous membranes. NECK: Normal range of motion, supple without lymphadenopathy or JVD, no thyromegaly LUNGS: Breath sounds clear to auscultation bilaterally and equal. No wheezes rales or rhonchi. HEART: Regular rate and rhythm without murmurs, rubs or gallops.S1S2 Normal ABDOMEN: Soft, tender to palpation upper quadrants, normoactive bowel sounds. No guarding, no rebound. No masses appreciated. EXTREMITIES: Normal range of motion of right side, no pitting or edema. No clubbing or cyanosis. NEUROLOGICAL: Cranial nerves II through XII grossly intact. Expressive aphasia. PSYCH: Normal mood, normal affect. SKIN: Warm, Dry, normal turgor, no rashes or lesions noted. - Labs CBC & Chem 7: 12/29/20 07:25 12/28/20 06:53 Labs: Abnormal Lab Results - Last 24 Hours (Table) 12/28/20 12/28/20 12/29/20 Range/Units 06:53 16:04 07:25 RBC 2.28 L 2.69 L (4.10-5.20) X 10*6/uL Hgb 6.7 L* 7.8 L (12.0-15.0) g/dL Hct 21.4 L 23.8 L (37.2-46.3) % MCHC 31.3 L (32.0-37.0) g/dL Immature Gran # 0.07 H (0.00-0.04) X 10*3/uL Lymphocytes # 0.44 L 0.6 L (0.90-5.00) X 10*3/uL Crossmatch See Detail Assessment and Plan (1) Obesity Current Visit: Yes Status: Acute Code(s): E66.9 - OBESITY, UNSPECIFIED SNOMED Code(s): 325603348 (2) Bipolar 1 disorder Current Visit: Yes Status: Acute Code(s): F31.9 - BIPOLAR DISORDER, UNSPECIFIED SNOMED Code(s): 192877885 (3) History of CVA (cerebrovascular accident) Current Visit: Yes Status: Acute Code(s): Z86.73 - PRSNL HX OF TIA (TIA), AND CEREB INFRC W/O RESID DEFICITS SNOMED Code(s): 970605307 (4) Acute pyelonephritis Current Visit: Yes Status: Acute Code(s): N10 - ACUTE PYELONEPHRITIS SNOMED Code(s): 66547356 (5) Pyelonephritis Current Visit: Yes Status: Acute Code(s): N12 - TUBULO-INTERSTITIAL NEPHRITIS, NOT SPCF ACUTE OR CHRONIC SNOMED Code(s): 93052188 (6) Acute renal failure Current Visit: No Status: Acute Code(s): N17.9 - ACUTE KIDNEY FAILURE, UNSPECIFIED SNOMED Code(s): 10579244 (7) Congestive heart failure Current Visit: No Status: Acute Code(s): I50.9 - HEART FAILURE, UNSPECIFIED SNOMED Code(s): 41961362 (8) Debility Current Visit: No Status: Acute Code(s): R53.81 - OTHER MALAISE SNOMED Code(s): 02486136 (9) Essential (primary) hypertension Current Visit: No Status: Acute Code(s): I10 - ESSENTIAL (PRIMARY) HYPERTENSION SNOMED Code(s): 80069346 (10) History of cerebrovascular accident Current Visit: No Status: Acute Code(s): Z86.73 - PRSNL HX OF TIA (TIA), AND CEREB INFRC W/O RESID DEFICITS SNOMED Code(s): 042421281 (11) History of hypothyroidism Current Visit: No Status: Acute Code(s): Z86.39 - PERSONAL HISTORY OF ENDO, NUTRITIONAL AND METABOLIC DISEASE SNOMED Code(s): 211540135 (12) Hydronephrosis Current Visit: No Status: Acute Code(s): N13.30 - UNSPECIFIED HYDRONEPHROSIS SNOMED Code(s): 68300895 (13) Parkinson disease Current Visit: No Status: Acute Code(s): G20 - PARKINSON'S DISEASE SNOMED Code(s): 74318904 (14) UTI (lower urinary tract infection) Current Visit: No Status: Acute Code(s): N39.0 - URINARY TRACT INFECTION, SITE NOT SPECIFIED SNOMED Code(s): 4639568 Plan: 1. Continue current medication regimen 2. GI prophylaxis with Protonix 3. 1 unit packed RBCs to be transfused. 4. DVT prophylaxis heparin subcu. 5. We'll order lab work for tomorrow. 6. We'll continue to monitor labs and vitals 7. We will reevaluate again tomorrow. Time with Patient: Greater than 30
[2020-12-30] MEDS: ONDANSETRON 4 MG/2 ML VIAL IVP PRN ×2 (00:54→11:16)
[2020-12-30] MEDS: SODIUM CHLORIDE 0.9% 1,000 ML IV SCH ×2 (05:58→17:35)
[2020-12-30] MEDS: LEVOTHYROXINE 75 MCG TAB PO SCH (05:58)
[2020-12-30] MEDS: SENNOSIDES-DOCUSATE SODIUM 1 EACH TAB PO SCH ×2 (07:37→21:09)
[2020-12-30] MEDS: PRAMIPEXOLE 1 MG TAB PO SCH (07:38)
[2020-12-30] MEDS: TRIAMTERENE-HCTZ 37.5-25MG 1 EACH TAB PO SCH (07:38)
[2020-12-30] MEDS: allopurinoL 100 MG TAB PO SCH ×2 (07:38→21:09)
[2020-12-30] MEDS: MAGNESIUM OXIDE 400 MG TAB PO SCH (07:38)
[2020-12-30] MEDS: PANTOPRAZOLE 40 MG TABLET PO SCH ×2 (07:38→21:09)
[2020-12-30] MEDS: amLODIPine 10 MG TAB PO SCH (07:39)
[2020-12-30] MEDS: CARBIDOPA-LEVODOPA 25-100 MG 1 EACH TAB PO SCH ×4 (07:39→21:09)
[2020-12-30] MEDS: ESCITALOPRAM 10 MG TAB PO SCH (07:39)
[2020-12-30] MEDS: PRAVASTATIN SODIUM 80 MG TAB PO SCH (07:40)
[2020-12-30] MEDS: POTASSIUM CHLORIDE ER 20 MEQ TAB.ER PO SCH (07:40)
[2020-12-30 09:23] LABS: Basophils # (A) 0.03 X 10*3/uL (0.00-0.10); Basophils % (A) 0.4 %; Eosinophils # (A) 0.31 X 10*3/uL (0.04-0.35); Eosinophils % (A) 4.6 %; HCT 28.3 % (37.2-46.3); HGB 9.1 g/dL (12.0-15.0); Lymphocytes # (A) 0.73 X 10*3/uL (0.90-5.00); Lymphocytes % (A) 10.7 %; MCH 28.9 pg (27.0-32.0); MCHC 32.2 g/dL (32.0-37.0); MCV 89.8 fL (80.0-97.0); Mean Platelet Volume 9.9 fL (9.5-12.2); Monocytes # (A) 0.34 X 10*3/uL (0.20-1.00); Neutrophils # (A) 5.27 X 10*3/uL (1.80-7.70); Neutrophils % (A) 77.5 %; Platelet Count 220 X 10*3/uL (140-440); RBC 3.15 X 10*6/uL (4.10-5.20); RDW 14.2 % (11.5-14.5)
--- NOTE | 2020-12-30 09:40 | FL ---
Fluoroscopy INDICATION: Pain FINDINGS: Fluoroscopy time: 1 minute 53 seconds. Images obtained: 9. IMPRESSIONS: 1. Documentation of fluoroscopy.
[2020-12-30 09:52] LABS: ALT <8 U/L (8-44); AST 7 U/L (13-35); African American GFR (CKD) 63.8 (60.0-200.0); Albumin/Globulin Ratio 1.43 (1.60-3.17); Alkaline Phosphatase 98 U/L (41-126); Calcium 8.7 mg/dL (8.7-10.3); Carbon Dioxide 33.1 mmol/L (21.6-31.8); Chloride 101 mmol/L (96-109); Globulin 2.1 g/dL (1.6-3.3); Glucose 94 mg/dL (70-110); Non-African American GFR(CKD) 55.1 (60.0-200.0); Potassium 3.7 mmol/L (3.5-5.5); Sodium 140 mmol/L (135-145); Total Bilirubin 0.3 mg/dL (0.2-1.2); Total Protein 5.1 g/dL (6.2-8.2)
--- NOTE | 2020-12-30 17:12 | P.PN ---
Subjective Progress Note Date: 12/30/20 This is a 75-year-old female with past medical history of CVA with residual left-sided weakness, expressive aphasia/TIA, hyperlipidemia, hypertension, chronic renal failure, hypothyroidism, obesity, anxiety, bipolar, depression, former nicotine dependence presented to the ER with complaints of nausea, vomi ting, constipation, abdominal pain 2 weeks. Patient initially had gone to PCP, Dr. Nelson's office today and was referred to the ER. Patient is vague historian, majority of information obtained from chart, staff; no family at bedside. CT of abdomen and pelvis completed, reported severe right-sided hydronephrosis with new to moderate ill-defined fluid and fat stranding suggesting inflammatory process, possible markedly dilated collecting system with internal debris or blood products cannot exclude underlying neoplasm, enlarging no simple cyst with local mass effect, unable to localize distinct ureter. Afebrile, normal WBC. Hemoglobin 9.6, platelets 259, coagulation profile unremarkable, sodium 137, potassium 4.8, BUN 36, creatinine 1.86 baseline around 1.2-1.5, mildly elevated alk phos 127. UA reported many bacteria, many WBC clumps greater than 182 30 BC's and RBCs, large leukocytes negative for bilirubin, moderate blood and 3+ protein. 12/26/2020 Complains of nausea this morning. Cystoscopy pending this morning with urology, urine culture reporting group B strep agalactiae. Maintained on Rocephin. Afebrile. Renal function continues improving down to 1.4. Nursing reports no fecal impaction yesterday. Denies chest pain, palpitations or shortness of breath. 12/27/2020 status post cystoscopy with right ureteral stent insertion yesterday, tolerated procedure well. Renal function/hemoglobin/labs pending. Repeated hemoglobin yesterday 7.5. T-max 99. Complains of nausea. Maintained on gentle IV fluid hydration and IV antibiotics. 12/30/2020 complains of nausea. Diet intake ranges from 25-50%. Evaluated by physical therapy, requiring moderate to maximum assist. Discussed subacute rehab with patient who is agreeable with. Afebrile, normal WBC. Hemoglobin 9.1, platelets 220. Maintained on Rocephin for UTI. Renal function continues improving with BUN 10, creatinine 1. Denies chest pain, palpitations or shortness of breath. Objective - Vital Signs Vital signs: Vital Signs Temp 98.2 F 12/30/20 12:30 Pulse 75 12/30/20 12:30 Resp 18 12/30/20 12:30 BP 138/69 12/30/20 12:30 Pulse Ox 93 L 12/30/20 12:30 Intake & Output 12/29/20 12/30/20 12/30/20 18:59 06:59 18:59 Intake Total 0 310 Balance 0 310 Intake: Blood Product 0 310 Rc As-1 Unit 0 310 [id number] Other: Voiding Method Diaper Diaper Diaper Incontinent # Voids 2 3 - Exam - Exam General: Alert and oriented 3 ,sitting up in bed, no acute distress,expressive aphasia HEENT: PERRL. EOMI. No pharyngeal erythema or exudate. Neck: Supple, no JVD. Cardiac: Heart regular in rate and rhythm. No S3. No S4. No clicks, rubs. No murmur. Lungs: Lungs clear to auscultation, bilateral bases diminished . Abdomen: Soft, nondistended, mild diffuse tenderness , no guarding, no rigidity. Positive bowel sounds. Extremities: trace edema no cyanosis no claudication normal pulses. Skin: Warm and dry, flaky, no rash Neurologic: [No lateralizing deficits. CN II - XII grossly intact.Speech con sistent with expressive aphasia, chronic residual left-sided weakness. ] - Labs CBC & Chem 7: 12/30/20 06:06 12/30/20 06:06 Labs: Abnormal Lab Results - Last 24 Hours (Table) 12/28/20 12/30/20 12/30/20 Range/Units 16:04 06:06 06:06 RBC 3.15 L (4.10-5.20) X 10*6/uL Hgb 9.1 L (12.0-15.0) g/dL Hct 28.3 L (37.2-46.3) % Immature Gran # 0.12 H (0.00-0.04) X 10*3/uL Lymphocytes # 0.73 L (0.90-5.00) X 10*3/uL Carbon Dioxide 33.1 H (21.6-31.8) mmol/L Est GFR (CKD-EPI)NonAf 55.1 L (60.0-200.0) BUN/Creatinine Ratio 10.00 L (12.00-20.00) Ratio AST 7 L (13-35) U/L ALT <8 L (8-44) U/L Total Protein 5.1 L (6.2-8.2) g/dL Albumin 3.00 L (3.80-4.90) g/dL Albumin/Globulin Ratio 1.43 L (1.60-3.17) g/dL Crossmatch See Detail Assessment and Plan Assessment: Acute UTI with Pyelonephritis, severe right hydronephrosis, dilated collecting system with internal debris or blood product , possible neoplasm per CT. urine culture reporting Strep agalactiae - (group b). Status post cystoscopy with right ureteral stent insertion, no tumors or foreign body seen, evidence of cystitis reported. 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 Hypothyroidism Bipolar disorder Obesity, BMI 32.6 Plan: Continue on current medication regime ,monitoring and tympanic treatment. Maintain IV antibiotics. Discharge planning in progress for tomorrow to subacute rehab .social work consulted. The impression and plan of care has been dictated as directed. : I performed a history and examination of this patient, discussed the same with the dictator. I agree with the dictator's note ,documented as a scribe. Any additional findings or plans will be noted.
[2020-12-31] MEDS: ONDANSETRON 4 MG/2 ML VIAL IVP PRN (02:26)
[2020-12-31] MEDS: LEVOTHYROXINE 75 MCG TAB PO SCH (05:41)
[2020-12-31] MEDS: PRAVASTATIN SODIUM 80 MG TAB PO SCH (07:41)
[2020-12-31] MEDS: SENNOSIDES-DOCUSATE SODIUM 1 EACH TAB PO SCH ×2 (07:41→21:40)
[2020-12-31] MEDS: allopurinoL 100 MG TAB PO SCH ×2 (07:42→21:39)
[2020-12-31] MEDS: PRAMIPEXOLE 1 MG TAB PO SCH (07:42)
[2020-12-31] MEDS: CARBIDOPA-LEVODOPA 25-100 MG 1 EACH TAB PO SCH ×4 (07:42→21:40)
[2020-12-31] MEDS: MAGNESIUM OXIDE 400 MG TAB PO SCH (07:42)
[2020-12-31] MEDS: PANTOPRAZOLE 40 MG TABLET PO SCH ×2 (07:42→21:39)
[2020-12-31] MEDS: ESCITALOPRAM 10 MG TAB PO SCH (07:42)
[2020-12-31] MEDS: amLODIPine 10 MG TAB PO SCH (07:43)
[2020-12-31] MEDS: TRIAMTERENE-HCTZ 37.5-25MG 1 EACH TAB PO SCH (07:43)
[2020-12-31] MEDS: POTASSIUM CHLORIDE ER 20 MEQ TAB.ER PO SCH (07:47)
[2020-12-31] MEDS: SODIUM CHLORIDE 0.9% 1,000 ML IV SCH ×2 (07:48→21:40)
[2020-12-31 11:12] VITALS: BMI 32.5
[2020-12-31 11:50] LABS: Basophils # (A) 0.02 X 10*3/uL (0.00-0.10); Basophils % (A) 0.4 %; Eosinophils # (A) 0.25 X 10*3/uL (0.04-0.35); Eosinophils % (A) 5.4 %; HCT 27.8 % (37.2-46.3); HGB 8.9 g/dL (12.0-15.0); Lymphocytes # (A) 0.96 X 10*3/uL (0.90-5.00); Lymphocytes % (A) 20.7 %; MCH 29.3 pg (27.0-32.0); MCV 91.4 fL (80.0-97.0); Mean Platelet Volume 9.2 fL (9.5-12.2); Monocytes # (A) 0.31 X 10*3/uL (0.20-1.00); Monocytes % (A) 6.7 %; Neutrophils # (A) 2.93 X 10*3/uL (1.80-7.70); Neutrophils % (A) 63.3 %; Platelet Count 184 X 10*3/uL (140-440); RBC 3.04 X 10*6/uL (4.10-5.20); RDW 13.8 % (11.5-14.5); WBC 4.63 X 10*3/uL (4.50-10.00)
[2020-12-31 12:13] LABS: ALT <8 U/L (8-44); AST 7 U/L (13-35); African American GFR (CKD) 63.8 (60.0-200.0); Albumin/Globulin Ratio 1.41 (1.60-3.17); Alkaline Phosphatase 99 U/L (41-126); Calcium 8.5 mg/dL (8.7-10.3); Carbon Dioxide 35.1 mmol/L (21.6-31.8); Chloride 101 mmol/L (96-109); Globulin 2.2 g/dL (1.6-3.3); Glucose 100 mg/dL (70-110); Non-African American GFR(CKD) 55.1 (60.0-200.0); Potassium 3.6 mmol/L (3.5-5.5); Sodium 141 mmol/L (135-145); Total Bilirubin 0.3 mg/dL (0.3-1.2); Total Protein 5.3 g/dL (6.2-8.2)
--- NOTE | 2020-12-31 14:33 | CDI ---
Documentation Clarification Form Date: 12/31/2020 02:18:51 PM From: Flor RodriguezROWENA peralta, CCDS Admit Date: 12/24/2020 01:56:00 PM Patient Name: Leena Carmona Visit Number: [id number] Discharge Date: ATTENTION: The Clinical Documentation Specialists (CDI) and [facility] Coding Staff appreciate your assistance in clarifying documentation. Please respond to the clarification below the line at the bottom and electronically sign. The CDI & [facility] Coding staff will review the response and follow-up if needed. Please note: Queries are made part of the Legal Health Record. If you have any questions, please contact the author of this message via ITS. Dr. Gume Santiago and/or Dr. Cameron Nelson: CKD is documented in the 12/25 History & Physical and in subsequent Progress Notes without further specificity. History/Risk Factors per the patient's Past Medical History in the 12/25 History & Physical: CKD secondary to Nephrosclerosis, CVA with residual left side weakness & aphasia, Chronic Diastolic CHF, Hypertension, Hyperlipidemia, Hypothyroidism, Obesity, Parkinson's Disease, Degenerative Arthritis and Obesity with BMI 32.6. Clinical Indicators: Presented to the ED on 12/24 with Nausea, Vomiting, Diarrhea and Abdominal Pain. ED Clinical Impression: Pyelonephritis. Per the 12/25 History & Physical Assessment: Acute Pyelonephritis, Severe Right Hydronephrosis. 12/24 Admission Lab: BUN 36, Creatinine 1.86, GFR 26 Subsequent Lab: 12/25: BUN 32.0, Creatinine 1.6, GFR 31.2. 12/26: BUN 23.0, Creatinine 1.4, GFR 36.7. 12/27 BUN 16, Creatinine 1.19, GFR 45 12/28: BUN 12.0, Creatinine 1.2, GFR 44.2 12/29: None done 12/30: BUN 10.0, Creatinine 1.0, GFR 55.1 Historical GFR 11/30/2017: 31 - 37 Treatment: IV Zofran, IV fl 1,000 mls @ 130 mls/hr, IV Pepcid, IV Rocephin, IV fluid 1,00 mls @ 75 mls/hr q13H Consult: Urology 12/25: Acute Pyelonephritis, Hydronephrosis. Procedure 12/26: Cystoscopy, Bilateral Retrograde Pyelograms, Right Ureteral Stent In order to capture the severity of condition, please clarify the stage of the CKD, if known: ---> CKD Stage 3a (GFR 45-59) CKD Stage 3b (GFR 30-44) CKD Stage 4 (GFR 15-29) Other, please specify Unable to determine [Template Last reviewed: July 2020] MTDD
--- NOTE | 2020-12-31 14:44 | P.PN ---
Subjective Progress Note Date: 12/31/20 This is a 75-year-old female with past medical history of CVA with residual left-sided weakness, expressive aphasia/TIA, hyperlipidemia, hypertension, chronic renal failure, hypothyroidism, obesity, anxiety, bipolar, depression, former nicotine dependence presented to the ER with complaints of nausea, vomi ting, constipation, abdominal pain 2 weeks. Patient initially had gone to PCP, Dr. Nelson's office today and was referred to the ER. Patient is vague historian, majority of information obtained from chart, staff; no family at bedside. CT of abdomen and pelvis completed, reported severe right-sided hydronephrosis with new to moderate ill-defined fluid and fat stranding suggesting inflammatory process, possible markedly dilated collecting system with internal debris or blood products cannot exclude underlying neoplasm, enlarging no simple cyst with local mass effect, unable to localize distinct ureter. Afebrile, normal WBC. Hemoglobin 9.6, platelets 259, coagulation profile unremarkable, sodium 137, potassium 4.8, BUN 36, creatinine 1.86 baseline around 1.2-1.5, mildly elevated alk phos 127. UA reported many bacteria, many WBC clumps greater than 182 30 BC's and RBCs, large leukocytes negative for bilirubin, moderate blood and 3+ protein. 12/26/2020 Complains of nausea this morning. Cystoscopy pending this morning with urology, urine culture reporting group B strep agalactiae. Maintained on Rocephin. Afebrile. Renal function continues improving down to 1.4. Nursing reports no fecal impaction yesterday. Denies chest pain, palpitations or shortness of breath. 12/27/2020 status post cystoscopy with right ureteral stent insertion yesterday, tolerated procedure well. Renal function/hemoglobin/labs pending. Repeated hemoglobin yesterday 7.5. T-max 99. Complains of nausea. Maintained on gentle IV fluid hydration and IV antibiotics. 12/30/2020 complains of nausea. Diet intake ranges from 25-50%. Evaluated by physical therapy, requiring moderate to maximum assist. Discussed subacute rehab with patient who is agreeable with. Afebrile, normal WBC. Hemoglobin 9.1, platelets 220. Maintained on Rocephin for UTI. Renal function continues improving with BUN 10, creatinine 1. Denies chest pain, palpitations or shortness of breath. 12/31/2020 maintained on IV Rocephin for acute UTI . Afebrile.Diet intake remains at 25-50%. Hemoglobin 8.9, platelets 184. Creatinine remains at 1. Objective - Vital Signs Vital signs: Vital Signs Temp 98.1 F 12/31/20 11:49 Pulse 87 12/31/20 11:49 Resp 18 12/31/20 11:49 BP 127/74 12/31/20 11:49 Pulse Ox 92 L 12/31/20 11:49 Intake & Output 12/30/20 12/31/20 12/31/20 18:59 06:59 18:59 Intake Total 1440 590 Balance 1440 590 Weight 94.347 kg Intake: Intake, IV Titration 380 Amount Sodium Chloride 0.9% 1, 330 000 ml @ 75 mls/hr IV . [id number] [facility] Rx#:[id number] cefTRIAXone 1 gm In 50 Sodium Chloride 0.9% 50 ml @ 100 mls/hr IVPB Q12HR [facility] Rx#:[id number] Oral 1060 590 Other: Voiding Method Diaper Diaper Diaper Incontinent Incontinent Incontinent # Voids 4 3 1 # Bowel Movements 1 1 - Exam - Exam General: Alert and oriented 3 ,sitting up in bed, no acute distress,expressive aphasia HEENT: PERRL. EOMI., No exudate. Neck: Supple, no JVD. Cardiac: Heart regular in rate and rhythm. No S3. No S4. No clicks, rubs. No murmur. Lungs: Lungs clear to auscultation, bilateral bases diminished . Abdomen: Soft, nondistended, mild diffuse tenderness , no guarding, no rigidity. Positive bowel sounds. Extremities: trace edema no cyanosis no claudication normal pulses. Skin: Warm and dry, flaky, no rash Neurologic: [No lateralizing deficits. CN II - XII grossly intact.Speech consistent with expressive aphasia, chronic residual left-sided weakness. ] - Labs CBC & Chem 7: 12/31/20 05:58 12/31/20 05:58 Labs: Abnormal Lab Results - Last 24 Hours (Table) 12/31/20 12/31/20 Range/Units 05:58 05:58 RBC 3.04 L (4.10-5.20) X 10*6/uL Hgb 8.9 L (12.0-15.0) g/dL Hct 27.8 L (37.2-46.3) % MPV 9.2 L (9.5-12.2) fL Immature Gran # 0.16 H (0.00-0.04) X 10*3/uL Carbon Dioxide 35.1 H (21.6-31.8) mmol/L Est GFR (CKD-EPI)NonAf 55.1 L (60.0-200.0) BUN/Creatinine Ratio 11.00 L (12.00-20.00) Ratio Calcium 8.5 L (8.7-10.3) mg/dL AST 7 L (13-35) U/L ALT <8 L (8-44) U/L Total Protein 5.3 L (6.2-8.2) g/dL Albumin 3.10 L (3.80-4.90) g/dL Albumin/Globulin Ratio 1.41 L (1.60-3.17) g/dL Assessment and Plan Assessment: Acute UTI with Pyelonephritis, severe right hydronephrosis, dilated collecting system with internal debris or blood product , possible neoplasm per CT. urine culture reporting Strep agalactiae - (group b). Status post cystoscopy with right ureteral stent insertion, no tumors or foreign body seen, evidence of cystitis reported. 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 Hypothyroidism Bipolar disorder Obesity, BMI 32.6 Plan: Continue on current medication regime ,monitoring and tympanic treatment. Maintain IV antibiotics. Discharge planning in progress for tomorrow to either subacute rehab. or home. The impression and plan of care has been dictated as directed. : I performed a history and examination of this patient, discussed the same with the dictator. I agree with the dictator's note ,documented as a scribe. Any additional findings or plans will be noted.
[2021-01-01] MEDS: ONDANSETRON 4 MG/2 ML VIAL IVP PRN (02:55)
[2021-01-01] MEDS: LEVOTHYROXINE 75 MCG TAB PO SCH (05:39)
[2021-01-01 09:30] LABS: Basophils # (A) 0.02 X 10*3/uL (0.00-0.10); Basophils % (A) 0.4 %; Eosinophils # (A) 0.29 X 10*3/uL (0.04-0.35); Eosinophils % (A) 5.9 %; HCT 27.1 % (37.2-46.3); HGB 8.7 g/dL (12.0-15.0); Lymphocytes # (A) 0.95 X 10*3/uL (0.90-5.00); Lymphocytes % (A) 19.4 %; MCH 29.1 pg (27.0-32.0); MCHC 32.1 g/dL (32.0-37.0); MCV 90.6 fL (80.0-97.0); Mean Platelet Volume 9.4 fL (9.5-12.2); Monocytes # (A) 0.42 X 10*3/uL (0.20-1.00); Monocytes % (A) 8.6 %; Neutrophils # (A) 3.11 X 10*3/uL (1.80-7.70); Neutrophils % (A) 63.7 %; Platelet Count 183 X 10*3/uL (140-440); RBC 2.99 X 10*6/uL (4.10-5.20); RDW 13.6 % (11.5-14.5); WBC 4.89 X 10*3/uL (4.50-10.00)
[2021-01-01] MEDS: amLODIPine 10 MG TAB PO SCH (09:44)
[2021-01-01] MEDS: allopurinoL 100 MG TAB PO SCH ×2 (09:44→20:50)
[2021-01-01] MEDS ORDERED: ERGOCALCIFEROL 1,250 MCG (50,000 IU) CAPSULE PO SCH (09:45)
[2021-01-01] MEDS: MAGNESIUM OXIDE 400 MG TAB PO SCH (09:46)
[2021-01-01] MEDS: ESCITALOPRAM 10 MG TAB PO SCH (09:46)
[2021-01-01] MEDS: CARBIDOPA-LEVODOPA 25-100 MG 1 EACH TAB PO SCH ×4 (09:46→20:51)
[2021-01-01] MEDS: PANTOPRAZOLE 40 MG TABLET PO SCH ×2 (09:47→20:49)
[2021-01-01] MEDS: POTASSIUM CHLORIDE ER 20 MEQ TAB.ER PO SCH (09:48)
[2021-01-01] MEDS: PRAMIPEXOLE 1 MG TAB PO SCH (09:48)
[2021-01-01] MEDS: SENNOSIDES-DOCUSATE SODIUM 1 EACH TAB PO SCH ×3 (09:49→20:49)
[2021-01-01] MEDS: TRIAMTERENE-HCTZ 37.5-25MG 1 EACH TAB PO SCH (09:49)
--- NOTE | 2021-01-01 10:02 | P.DS ---
Providers Date of admission: 12/24/20 13:56 Expected date of discharge: 01/01/21 Attending physician: Gume Santiago Consults: 12/24/20 13:57 Consult Physician Routine Consulting Provider: Reese Lyn Consult Reason/Comments: Pyelonephritis with abnormal CT Do you want consulting provider notified?: Yes Primary care physician: [facility] Course: Final Diagnoses: Acute UTI with Pyelonephritis, severe right hydronephrosis, dilated collecting system with internal debris or blood product , possible neoplasm per CT. urine culture reporting Strep agalactiae - (group b). Status post cystoscopy with right ureteral stent insertion, no tumors or foreign body seen, evidence of cystitis reported. 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 Hypothyroidism Bipolar disorder Obesity, BMI 32.6 Hospital course:This is a 75-year-old female with past medical history of CVA with residual left-sided weakness, expressive aphasia/TIA, hyperlipidemia, hypertension, chronic renal failure, hypothyroidism, obesity, anxiety, bipolar, depression, former nicotine dependence presented to the ER with complaints of nausea, vomiting, constipation, abdominal pain 2 weeks. Patient initially had gone to PCP, Dr. Nelson's office today and was referred to the ER. Patient is vague historian, majority of information obtained from chart, staff; no family at bedside. CT of abdomen and pelvis completed, reported severe right- sided hydronephrosis with new to moderate ill-defined fluid and fat stranding suggesting inflammatory process, possible markedly dilated collecting system with internal debris or blood products cannot exclude underlying neoplasm, enlarging no simple cyst with local mass effect, unable to localize distinct ureter. Afebrile, normal WBC. Hemoglobin 9.6, platelets 259, coagulation profile unremarkable, sodium 137, potassium 4.8, BUN 36, creatinine 1.86 baseline around 1.2-1.5, mildly elevated alk phos 127. UA reported many bacteria, many WBC clumps greater than 182 30 BC's and RBCs, large leukocytes negative for bilirubin, moderate blood and 3+ protein. 12/26/2020 Complains of nausea this morning. Cystoscopy pending this morning with urology, urine culture reporting group B strep agalactiae. Maintained on Rocephin. Afebrile. Renal function continues improving down to 1.4. Nursing reports no fecal impaction yesterday. Denies chest pain, palpitations or shortness of breath. 12/27/2020 status post cystoscopy with right ureteral stent insertion yesterday, tolerated procedure well. Renal function/hemoglobin/labs pending. Repeated hemoglobin yesterday 7.5. T-max 99. Complains of nausea. Maintained on gentle IV fluid hydration and IV antibiotics. 12/30/2020 complains of nausea. Diet intake ranges from 25-50%. Evaluated by physical therapy, requiring moderate to maximum assist. Discussed subacute rehab with patient who is agreeable with. Afebrile, normal WBC. Hemoglobin 9.1, platelets 220. Maintained on Rocephin for UTI. Renal function continues improving with BUN 10, creatinine 1. Denies chest pain, palpitations or shortness of breath. 12/31/2020 maintained on IV Rocephin for acute UTI . Afebrile.Diet intake remains at 25-50%. Hemoglobin 8.9, platelets 184. Creatinine remains at 1. Significant clinical improvement. Afebrile, normal WBC (11/30/20), no hematuria, creatinine from 12/31/2020 1, current labs pending. Patient is extremely weak, requiring four-person assist. Recommending subacute rehab at discharge. Patient is being discharged today to either subacute rehab or home in a stable condition with guarded prognosis. Patient advised to follow-up with Dr. Lund in 3 weeks for ureteroscopy. The impression and plan of care has been dictated as directed. : I performed a history and examination of this patient, discussed the same with the dictator. I agree with the dictator's note ,documented as a scribe. Any additional findings or plans will be noted. Patient Condition at Discharge: Stable Plan - Discharge Summary Discharge Rx Participant: No New Discharge Prescriptions: New polyethylene glycoL 3350 [Miralax] 17 gm PO DAILY PRN #0 powd.pack PRN Reason: Constipation Sennosides-Docusate Sodium [Senokot-S] 2 each PO BID tab Cefdinir 300 mg PO Q12HR #6 cap Continue Escitalopram Oxalate [Lexapro] 10 mg PO DAILY Pravastatin Sodium [Pravachol] 80 mg PO DAILY Omeprazole [PriLOSEC] 20 mg PO BID allopurinoL [Zyloprim] 100 mg PO BID Levothyroxine Sodium [Synthroid] 150 mcg PO DAILY Pramipexole [Mirapex] 1 mg PO DAILY calcitrioL [Rocaltrol] 0.25 mcg PO SUMOTUWETHFR Ergocalciferol (Vitamin D2) [Drisdol (50,000 Iu)] 50,000 unit PO Q14D Magnesium Oxide [Mag-Ox] 400 mg PO DAILY #30 tab amLODIPine [Norvasc] 10 mg PO DAILY #30 tab Metoprolol Tartrate [Lopressor] 50 mg PO BID Potassium Chloride ER [K-Dur 20] 20 meq PO DAILY polyethylene glycoL 3350 [Polyethylene Glycol 3350] 17 gm PO DAILY PRN PRN Reason: Nausea Carbidopa-Levodopa 25-100 mg [Sinemet 25-100 mg] 2 tab PO W/SUPPER Carbidopa-Levodopa 25-100 mg [Sinemet 25-100 mg] 1 tab PO TID Triamterene/Hydrochlorothiazid [Triamterene-Hctz 37.5-25 mg Tb] 1 tab PO DAILY Discharge Medication List Escitalopram Oxalate [Lexapro] 10 mg PO DAILY 09/07/14 [History] Omeprazole [PriLOSEC] 20 mg PO BID 09/07/14 [History] Pravastatin Sodium [Pravachol] 80 mg PO DAILY 09/07/14 [History] allopurinoL [Zyloprim] 100 mg PO BID 09/21/17 [History] Ergocalciferol (Vitamin D2) [Drisdol (50,000 Iu)] 50,000 unit PO Q14D 05/19/19 [History] Levothyroxine Sodium [Synthroid] 150 mcg PO DAILY 05/19/19 [History] Pramipexole [Mirapex] 1 mg PO DAILY 05/19/19 [History] calcitrioL [Rocaltrol] 0.25 mcg PO SUMOTUWETHFR 05/19/19 [History] Magnesium Oxide [Mag-Ox] 400 mg PO DAILY #30 tab 06/07/19 [Rx] amLODIPine [Norvasc] 10 mg PO DAILY #30 tab 06/07/19 [Rx] Carbidopa-Levodopa 25-100 mg [Sinemet 25-100 mg] 1 tab PO TID 12/24/20 [History] Carbidopa-Levodopa 25-100 mg [Sinemet 25-100 mg] 2 tab PO W/SUPPER 12/24/20 [History] Metoprolol Tartrate [Lopressor] 50 mg PO BID 12/24/20 [History] Potassium Chloride ER [K-Dur 20] 20 meq PO DAILY 12/24/20 [History] Triamterene/Hydrochlorothiazid [Triamterene-Hctz 37.5-25 mg Tb] 1 tab PO DAILY 12/24/20 [History] polyethylene glycoL 3350 [Polyethylene Glycol 3350] 17 gm PO DAILY PRN 12/24/20 [History] Cefdinir 300 mg PO Q12HR #6 cap 01/01/21 [Rx] Sennosides-Docusate Sodium [Senokot-S] 2 each PO BID tab 01/01/21 [Rx] polyethylene glycoL 3350 [Miralax] 17 gm PO DAILY PRN #0 powd.pack 01/01/21 [Rx] Follow up Appointment(s)/Referral(s): Reese Lyn MD [STAFF PHYSICIAN] - 3 Weeks Gume Santiago Jr, DO [Primary Care Provider] - 3 Days Activity/Diet/Wound Care/Special Instructions: [facility].
[2021-01-01 10:26] LABS: ALT <8 U/L (8-44); AST 8 U/L (13-35); African American GFR (CKD) 63.8 (60.0-200.0); Albumin/Globulin Ratio 1.48 (1.60-3.17); Alkaline Phosphatase 95 U/L (41-126); Calcium 8.5 mg/dL (8.7-10.3); Chloride 101 mmol/L (96-109); Globulin 2.1 g/dL (1.6-3.3); Glucose 101 mg/dL (70-110); Non-African American GFR(CKD) 55.1 (60.0-200.0); Sodium 139 mmol/L (135-145); Total Bilirubin 0.3 mg/dL (0.3-1.2); Total Protein 5.2 g/dL (6.2-8.2)
[2021-01-01 11:14] LABS: African American GFR (CKD) 58 (>60 ml/min/1.73 sqM); Anion Gap 6 mmol/L; Blood Urea Nitrogen 11 mg/dL (7-17); Calcium 8.9 mg/dL (8.4-10.2); Carbon Dioxide 32 mmol/L (22-30); Chloride 97 mmol/L (98-107); Glucose 119 mg/dL (74-99); Non-African American GFR(CKD) 50 (>60 ml/min/1.73 sqM); Potassium 3.8 mmol/L (3.5-5.1); Sodium 135 mmol/L (137-145)
[2021-01-01] MEDS: PRAVASTATIN SODIUM 80 MG TAB PO SCH (11:19)
[2021-01-01] MEDS: METOPROLOL TARTRATE 50 MG TAB PO SCH ×2 (11:36→20:50)
[2021-01-01] MEDS: SODIUM CHLORIDE 0.9% 1,000 ML IV SCH (11:36)
[2021-01-02] MEDS: SODIUM CHLORIDE 0.9% 1,000 ML IV SCH ×2 (04:48→12:23)
[2021-01-02 04:57] VITALS: RESP 16; TEMP 98.8
[2021-01-02] MEDS: LEVOTHYROXINE 75 MCG TAB PO SCH (05:29)
[2021-01-02] MEDS ORDERED: LACTATED RINGERS 1,000 ML IV SCH (08:45)
[2021-01-02] MEDS ORDERED: HEPARIN SODIUM,PORCINE 5,000 UNIT/ML 1 ML VIAL SQ SCH (09:00)
[2021-01-02] MEDS: POTASSIUM CHLORIDE ER 20 MEQ TAB.ER PO SCH (09:02)
[2021-01-02] MEDS: SENNOSIDES-DOCUSATE SODIUM 1 EACH TAB PO SCH (09:02)
[2021-01-02] MEDS: MAGNESIUM OXIDE 400 MG TAB PO SCH (09:02)
[2021-01-02] MEDS: METOPROLOL TARTRATE 50 MG TAB PO SCH (09:02)
[2021-01-02] MEDS: PANTOPRAZOLE 40 MG TABLET PO SCH (09:02)
[2021-01-02] MEDS: amLODIPine 10 MG TAB PO SCH (09:03)
[2021-01-02] MEDS: allopurinoL 100 MG TAB PO SCH (09:03)
[2021-01-02] MEDS: CARBIDOPA-LEVODOPA 25-100 MG 1 EACH TAB PO SCH ×2 (09:19→14:17)
[2021-01-02] MEDS: PRAMIPEXOLE 1 MG TAB PO SCH (09:19)
[2021-01-02] MEDS: TRIAMTERENE-HCTZ 37.5-25MG 1 EACH TAB PO SCH (09:19)
[2021-01-02] MEDS: ESCITALOPRAM 10 MG TAB PO SCH (09:19)
[2021-01-02] MEDS: PRAVASTATIN SODIUM 80 MG TAB PO SCH (09:20)
[2021-01-02 13:02] VITALS: BP 118/70; PULSE 70
== END 2021-01-02 16:15 | DRG 660 ==
LOC: EC 10:00 → 5NMEDONC 13:56
PROVIDERS: ADMIT Family Medicine; ATTEND Family Medicine
PROC: BT141ZZ Fluoroscopy of Kidneys, Ureters and Bladder using Low Osmolar Contrast (ICD-10-PCS; 2020-12-26)
PROC: 0T768DZ Dilation of Right Ureter with Intraluminal Device, Via Natural or Artificial Opening Endoscopic (ICD-10-PCS; principal; 2020-12-26 09:45)
PROC: 30233N1 Transfusion of Nonautologous Red Blood Cells into Peripheral Vein, Percutaneous Approach (ICD-10-PCS; 2020-12-28)
DX: N13.6 Pyonephrosis (principal); I13.0 Hypertensive heart and chronic kidney disease with heart failure and stage 1 through stage 4 chronic kidney disease, or unspecified chronic kidney disease; I69.354 Hemiplegia and hemiparesis following cerebral infarction affecting left non-dominant side; I50.32 Chronic diastolic (congestive) heart failure; N30.00 Acute cystitis without hematuria; N17.9 Acute kidney failure, unspecified; G20 Parkinson's disease; E66.01 Morbid (severe) obesity due to excess calories; F31.9 Bipolar disorder, unspecified; N18.31 Chronic kidney disease, stage 3a; Z20.822 Contact with and (suspected) exposure to COVID-19; K59.00 Constipation, unspecified; E78.5 Hyperlipidemia, unspecified; E03.9 Hypothyroidism, unspecified; F41.9 Anxiety disorder, unspecified; M19.90 Unspecified osteoarthritis, unspecified site; I69.320 Aphasia following cerebral infarction; E86.0 Dehydration; R32 Unspecified urinary incontinence; B95.1 Streptococcus, group B, as the cause of diseases classified elsewhere; R53.81 Other malaise; Z68.32 Body mass index [BMI] 32.0-32.9, adult; Z71.3 Dietary counseling and surveillance; Z79.899 Other long term (current) drug therapy; Z79.890 Hormone replacement therapy; Z88.8 Allergy status to other drugs, medicaments and biological substances; Z90.710 Acquired absence of both cervix and uterus; Z98.890 Other specified postprocedural states; Z87.891 Personal history of nicotine dependence; Z87.440 Personal history of urinary (tract) infections
CPT/HCPCS: 36415; 74176; 74430; 80048; 80053; 81001; 82150; 83690; 85025; 85027; 85610; 85730; 86850; 86900; 86901; 86920; 87086; 87635; 94760; 96361; 96365; 96366; 96375; 99285

== ENCOUNTER 2021-01-24 11:41 | Inpatient (IN) | payer MEDICARE ==
[2021-01-24] MEDS ORDERED: ACETAMINOPHEN TAB 325 MG TAB PO STA (12:10)
[2021-01-24] MEDS ORDERED: SODIUM CHLORIDE 0.9% 500 ML 500 ML IV STA (12:11)
[2021-01-24 13:09] LABS: Anisocytosis Slight; Basophils % (A) 0 %; Eosinophils # (A) 0.2 k/uL (0-0.7); Eosinophils % (A) 2 %; HCT 33.5 % (34.0-46.0); HGB 10.6 gm/dL (11.4-16.0); Hypochromasia Slight; Lymphocytes # (A) 0.8 k/uL (1.0-4.8); Lymphocytes % (A) 7 %; MCH 29.1 pg (25.0-35.0); MCHC 31.7 g/dL (31.0-37.0); MCV 91.8 fL (80.0-100.0); Mean Platelet Volume 7.8; Monocytes # (A) 0.3 k/uL (0-1.0); Monocytes % (A) 3 %; Neutrophils # (A) 9.7 k/uL (1.3-7.7); Neutrophils % (A) 88 %; Platelet Count 151 k/uL (150-450); RBC 3.65 m/uL (3.80-5.40); RDW 16.5 % (11.5-15.5)
[2021-01-24 13:15] LABS: ALT <6 U/L (4-34); AST 18 U/L (14-36); African American GFR (CKD) 55 (>60 ml/min/1.73 sqM); Albumin 3.4 g/dL (3.5-5.0); Alkaline Phosphatase 77 U/L (38-126); Anion Gap 10 mmol/L; Blood Urea Nitrogen 13 mg/dL (7-17); C Reactive Protein 55.9 mg/L (<10.0); Calcium 9.2 mg/dL (8.4-10.2); Carbon Dioxide 27 mmol/L (22-30); Chloride 100 mmol/L (98-107); Glucose 137 mg/dL (74-99); LDH 519 U/L (313-618); Magnesium 1.6 mg/dL (1.6-2.3); Non-African American GFR(CKD) 48 (>60 ml/min/1.73 sqM); Potassium 3.6 mmol/L (3.5-5.1); Sodium 137 mmol/L (137-145); Total Bilirubin 0.6 mg/dL (0.2-1.3); Total Protein 6.2 g/dL (6.3-8.2)
--- NOTE | 2021-01-24 13:23 | XR ---
EXAMINATION TYPE: XR chest 1V portable DATE OF EXAM: 01/24/2021 COMPARISON: This x-ray August 07, 2019 HISTORY: Suspected Covid 19 pneumonia TECHNIQUE: Single frontal view of the chest is obtained. FINDINGS: There is no focal air space opacity, pleural effusion, or pneumothorax seen. The cardiac silhouette size is within normal limits. There are overlying artifacts. The aorta is dense and tortuo us. The osseous structures are intact. IMPRESSION: No acute process.
[2021-01-24 13:26] LABS: Prothrombin Time 10.4 sec (9.0-12.0)
[2021-01-24 14:03] LABS: D-Dimer 1.15 mg/L FEU (<0.60)
--- NOTE | 2021-01-24 14:21 | ED ---
Medical Decision Making - Medical Decision Making Patient care was sent out to me by previous shift physician legal executive assistant, Chris Bledsoe. Briefly, patient is 75-year-old female past medical history of strokes, dyslipidemia hypertension. She recently tested positive for cold and 19. She was sent in by Dr. Nelson for medical evaluation. Patient's vital signs upon arrival are within acceptable limits. She is 92% on room air. While in the room patient did desat to 89% briefly. She's been on nasal cannula with saturations up to 97%. Laboratory evaluation obtained showing mild stenosis of 11.0. Coags normal. D-dimer is 1.15. Elevated CRP at 55.9. Chest x-ray was nonacute. Patient has normal respiratory rate is not showing any signs of respiratory distress. Plan sign out was to follow-up with pending CT angios [place]. I did evaluate the patient at 2:30 PM and she is found to be in stable medical condition. Her somewhat oxygen was turned off to see if she was having any further episodes of desaturations. CT angios the chest shows suboptimal study without acute pulmonary embolism identified. No suspicious acute pulmonary infiltrate. Patient's oxygen was turned off. Patient was persistently in the high 80s. Patient was placed back on supplemental oxygen. Patient's well-appearing at this time however she is mildly hypoxic. Patient given 6 more grams of oral Decadron. She is reevaluated at bedside found to be in stable medical condition. She does not appear to be dyspneic. She is resting comfortably and actually initially preferred to go home and be discharge. She is agreeable however to admission. Case discussed with Dr. Tsang was willing to accept patient care. ID and pulmonary consulted - Lab Data Result diagrams: 01/24/21 12:40 01/24/21 12:40 Lab Results 01/24/21 01/24/21 01/24/21 Range/Units 12:40 12:40 12:40 WBC 11.0 H (3.8-10.6) k/uL RBC 3.65 L (3.80-5.40) m/uL Hgb 10.6 L (11.4-16.0) gm/dL Hct 33.5 L (34.0-46.0) % MCV 91.8 (80.0-100.0) fL MCH 29.1 (25.0-35.0) pg MCHC 31.7 (31.0-37.0) g/dL RDW 16.5 H (11.5-15.5) % Plt Count 151 (150-450) k/uL MPV 7.8 Neutrophils % 88 % Lymphocytes % 7 % Monocytes % 3 % Eosinophils % 2 % Basophils % 0 % Neutrophils # 9.7 H (1.3-7.7) k/uL Lymphocytes # 0.8 L (1.0-4.8) k/uL Monocytes # 0.3 (0-1.0) k/uL Eosinophils # 0.2 (0-0.7) k/uL Basophils # 0.0 (0-0.2) k/uL Hypochromasia Slight Anisocytosis Slight PT 10.4 (9.0-12.0) sec INR 1.0 (<1.2) APTT 21.0 L (22.0-30.0) sec D-Dimer 1.15 H (<0.60) mg/L FEU Sodium 137 (137-145) mmol/L Potassium 3.6 (3.5-5.1) mmol/L Chloride 100 (98-107) mmol/L Carbon Dioxide 27 (22-30) mmol/L Anion Gap 10 mmol/L BUN 13 (7-17) mg/dL Creatinine 1.13 H (0.52-1.04) mg/dL Est GFR (CKD-EPI)AfAm 55 (>60 ml/min/1.73 sqM) Est GFR (CKD-EPI)NonAf 48 (>60 ml/min/1.73 sqM) Glucose 137 H (74-99) mg/dL Plasma Lactic Acid Donell (0.7-2.0) mmol/L Calcium 9.2 (8.4-10.2) mg/dL Magnesium 1.6 (1.6-2.3) mg/dL Total Bilirubin 0.6 (0.2-1.3) mg/dL AST 18 (14-36) U/L ALT <6 (4-34) U/L Alkaline Phosphatase 77 (38-126) U/L Lactate Dehydrogenase 519 (313-618) U/L C-Reactive Protein 55.9 H (<10.0) mg/L Total Protein 6.2 L (6.3-8.2) g/dL Albumin 3.4 L (3.5-5.0) g/dL Urine Color Urine Appearance (Clear) Urine pH (5.0-8.0) Ur Specific [place] (1.001-1.035) Urine Protein (Negative) Urine Glucose (UA) (Negative) Urine Ketones (Negative) Urine Blood (Negative) Urine Nitrite (Negative) Urine Bilirubin (Negative) Urine Urobilinogen (<2.0) mg/dL Ur Leukocyte Esterase (Negative) Urine RBC (0-5) /hpf Urine WBC (0-5) /hpf Urine WBC Clumps (None) /hpf Ur Squamous Epith Cells (0-4) /hpf Urine Mucus (None) /hpf Coronavirus (PCR) (Not Detectd) 01/24/21 01/24/21 01/24/21 Range/Units 12:40 13:46 14:05 WBC (3.8-10.6) k/uL RBC (3.80-5.40) m/uL Hgb (11.4-16.0) gm/dL Hct (34.0-46.0) % MCV (80.0-100.0) fL MCH (25.0-35.0) pg MCHC (31.0-37.0) g/dL RDW (11.5-15.5) % Plt Count (150-450) k/uL MPV Neutrophils % % Lymphocytes % % Monocytes % % Eosinophils % % Basophils % % Neutrophils # (1.3-7.7) k/uL Lymphocytes # (1.0-4.8) k/uL Monocytes # (0-1.0) k/uL Eosinophils # (0-0.7) k/uL Basophils # (0-0.2) k/uL Hypochromasia Anisocytosis PT (9.0-12.0) sec INR (<1.2) APTT (22.0-30.0) sec D-Dimer (<0.60) mg/L FEU Sodium (137-145) mmol/L Potassium (3.5-5.1) mmol/L Chloride (98-107) mmol/L Carbon Dioxide (22-30) mmol/L Anion Gap mmol/L BUN (7-17) mg/dL Creatinine (0.52-1.04) mg/dL Est GFR (CKD-EPI)AfAm (>60 ml/min/1.73 sqM) Est GFR (CKD-EPI)NonAf (>60 ml/min/1.73 sqM) Glucose (74-99) mg/dL Plasma Lactic Acid Donell 1.3 (0.7-2.0) mmol/L Calcium (8.4-10.2) mg/dL Magnesium (1.6-2.3) mg/dL Total Bilirubin (0.2-1.3) mg/dL AST (14-36) U/L ALT (4-34) U/L Alkaline Phosphatase (38-126) U/L Lactate Dehydrogenase (313-618) U/L C-Reactive Protein (<10.0) mg/L Total Protein (6.3-8.2) g/dL Albumin (3.5-5.0) g/dL Urine Color Yellow Urine Appearance Turbid H (Clear) Urine pH 6.0 (5.0-8.0) Ur Specific [place] 1.019 (1.001-1.035) Urine Protein 2+ H (Negative) Urine Glucose (UA) Negative (Negative) Urine Ketones Negative (Negative) Urine Blood Moderate H (Negative) Urine Nitrite Negative (Negative) Urine Bilirubin Negative (Negative) Urine Urobilinogen <2.0 (<2.0) mg/dL Ur Leukocyte Esterase Large H (Negative) Urine RBC >182 H (0-5) /hpf Urine WBC >182 H (0-5) /hpf Urine WBC Clumps Many H (None) /hpf Ur Squamous Epith Cells 4 (0-4) /hpf Urine Mucus Occasional H (None) /hpf Coronavirus (PCR) Detected A (Not Detectd) Disposition Clinical Impression: Hypoxia, COVID-19 Disposition: ADMITTED IP TO THIS HOSP Condition: Fair Referrals: Gume Santiago Jr, [Primary Care Provider] - 1-2 days Decision Time: 15:07
[2021-01-24 14:48] LABS: Appearance,Urine Turbid (Clear); Bilirubin,Urine Negative (Negative); Blood,Urine Moderate (Negative); Color,Urine Yellow; Glucose,Urine (UA) Negative (Negative); Ketones,Urine Negative (Negative); Leukocyte Esterase,Urine Large (Negative); Nitrite,Urine Negative (Negative); Protein,Urine 2+ (Negative); Specific Gravity,Urine 1.019 (1.001-1.035); Urobilinogen,Urine <2.0 mg/dL (<2.0); WBC,Urine >182 /hpf (0-5)
[2021-01-24 14:49] LABS: Mucus,Urine Occasional /hpf; RBC,Urine >182 /hpf (0-5); Squamous Epithelial Cell,Urine 4 /hpf (0-4)
--- NOTE | 2021-01-24 14:57 | CT ---
EXAMINATION TYPE: CT chest angio for PE DATE OF EXAM: 01/24/2021 COMPARISON: None. HISTORY: Shortness of breath. CT DLP: 405.5 mGycm Automated exposure control for dose reduction was used. CONTRAST: CT Chest for pulmonary embolism performed with with IV Contrast, patient injected with 74 mL of Isovu e 370. FINDINGS: LUNGS: Tiny bilateral pleural effusions and dependent atelectasis in the lower lobes. No suspicious f ocal consolidation. Some respiratory motion artifact degradation. No suspicious masses. Mild to moder ate biapical pleural/parenchymal scarring. MEDIASTINUM: There is suboptimal study with equal contrast in right and left heart systems, there is some heterogeneity towards the periphery. No convincing CT evidence for acute pulmonary embolism. Sat isfactory enhancement of the aorta without dissection. No aneurysm is seen. Prominent bilateral hilar lymph nodes and subcarinal lymph node. Some coronary artery calcification. No cardiomegaly. No per icardial effusion is seen. OTHER: Asymmetric atrophy of the right pectoralis major muscle. Scoliotic curvature or positioning. IMPRESSION: Suboptimal study without acute pulmonary embolism identified. No suspicious acute pulmona ry infiltrate.
[2021-01-24] MEDS ORDERED: NALOXONE 0.4 MG/ML 1 ML VIAL IV PRN (15:03)
[2021-01-24] MEDS ORDERED: cefTRIAXone IN SWFI 1,000 MG/10 ML SYRINGE IVP STA (15:03)
[2021-01-24] MEDS: ENOXAPARIN 40 MG/0.4 ML SYRINGE SQ SCH (15:52)
[2021-01-24] MEDS: SODIUM CHLORIDE 0.9% 1,000 ML IV SCH (15:52)
[2021-01-24] MEDS ORDERED: polyethylene glycoL 3350 17 GM POWD.PACK PO PRN (17:19)
[2021-01-24] MEDS: ZINC SULFATE 220 MG CAP PO SCH (17:48)
[2021-01-24] MEDS: ASCORBIC ACID 500 MG TAB PO SCH (17:48)
--- NOTE | 2021-01-24 18:04 | P.CNPUL ---
History of Present Illness Consult date: 01/24/21 Requesting physician: Gume Santiago Jr Reason for consult: dyspnea Chief complaint: Nausea, vomiting, diarrhea History of present illness: This is a very pleasant 75-year-old female patient who follows with Dr. Santiago as her primary care provider. She has a history of CVA/left-sided weakness and expressive aphasia, hypertension, hyperlipidemia, hypothyroidism, Parkinson's disease, anxiety/depression, former smoker and chronic renal failure with stage III kidney disease. She presented to the emergency room earlier today after having a 2 day history of nausea, vomiting, diarrhea. She was also found to be hypoxic with O2 saturations in the 80s on room air. CT angiogram ruled out pulmonary embolism. No suspicious acute pulmonary infiltrates. White count 11.0. Hemoglobin 10.6. Lymphocytes 0.8. D-dimer 1.15. Sodium 137. Potassium 3.6. Creatinine 1.13. Urinalysis positive for large WBCs and moderate blood. Baca virus positive per PCR. She is seen today in consultation on the regular medical floor. She's currently sitting up in bed. Awake and alert in no acute distress. She does have expressive aphasia but is able to answer most questions appropriately. She currently denies any worsening shortness of breath, cough or congestion. She is maintaining O2 saturations in the 90s on 2 L/m per nasal cannula. She's afebrile. Hemodynamically stable. She has been initiated on ceftriaxone, doxycycline Methasone, Lovenox, vitamin supplements. Review of Systems REVIEW OF SYSTEMS: CONSTITUTIONAL: Denies any recent significant weight loss or weight gain. EYES: Denies change in vision. EARS, NOSE, MOUTH, THROAT: Denies headaches, denies sore throat. CARDIOVASCULAR: Denies chest pain, palpitations or syncopal episodes. RESPIRATORY: Positive for shortness of breath, cough, congestion no hemoptysis. GASTROINTESTINAL: Positive for nausea, vomiting, diarrhea GENITOURINARY: Denies hematuria, denies infections. MUSKULOSKELETAL: Denies pain, denies swelling. INTEGUMENTARY: Denies rash, denies eczema. NEUROLOGICAL: History of CVA, expressive aphasia. no recent seizure activity. PSYCHIATRIC: History of anxiety/depression. HEMATOLOGIC/LYMPHATIC: Denies anemia, denies enlarged lymph nodes. 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 No adult children. However they fostered 37 children. 2 pet dogs in the home. No international travel. No experience Smoking Status: Former smoker Past Alcohol Use History: None Reported Past Drug Use History: None Reported - Past Family History Father Family Medical History: No Reported History Medications and Allergies Home Medications Medication Instructions Recorded Confirmed Type Escitalopram Oxalate [Lexapro] 10 mg PO DAILY 09/07/14 01/24/21 History Omeprazole [PriLOSEC] 20 mg PO BID 09/07/14 01/24/21 History Pravastatin Sodium [Pravachol] 80 mg PO DAILY 09/07/14 01/24/21 History allopurinoL [Zyloprim] 100 mg PO BID 09/21/17 01/24/21 History Ergocalciferol (Vitamin D2) 50,000 unit PO Q14D 05/19/19 01/24/21 History [Drisdol (50,000 Iu)] Levothyroxine Sodium [Synthroid] 150 mcg PO DAILY 05/19/19 01/24/21 History Pramipexole [Mirapex] 1 mg PO DAILY 05/19/19 01/24/21 History calcitrioL [Rocaltrol] 0.25 mcg PO SUMOTUWETHFR 05/19/19 01/24/21 History Magnesium Oxide [Mag-Ox] 400 mg PO DAILY #30 tab 06/07/19 01/24/21 Rx amLODIPine [Norvasc] 10 mg PO DAILY #30 tab 06/07/19 01/24/21 Rx Carbidopa-Levodopa 25-100 mg 1 tab PO TID 12/24/20 01/24/21 History [Sinemet 25-100 mg] Carbidopa-Levodopa 25-100 mg 2 tab PO AC-SUPPER 12/24/20 01/24/21 History [Sinemet 25-100 mg] Metoprolol Tartrate [Lopressor] 50 mg PO BID 12/24/20 01/24/21 History Potassium Chloride ER [K-Dur 20] 20 meq PO DAILY 12/24/20 01/24/21 History Triamterene/Hydrochlorothiazid 1 tab PO DAILY 12/24/20 01/24/21 History [Triamterene-Hctz 37.5-25 mg Tb] polyethylene glycoL 3350 [Miralax] 17 gm PO DAILY PRN #0 powd.pack 01/01/21 01/24/21 Rx Sennosides-Docusate Sodium 2 tab PO BID 01/24/21 01/24/21 History [Senokot-S] Allergies Allergy/AdvReac Type Severity Reaction Status Date / Time amiodarone [From Cordarone] Allergy Anaphylaxis Verified 12/24/20 11:38 cyclobenzaprine Allergy Rash/Hives Verified 12/24/20 11:38 [From Flexeril] Physical Exam Vitals: Vital Signs Temp Pulse Pulse Resp BP BP Pulse Ox 01/24/21 16:23 98.0 F 74 20 145/74 96 01/24/21 16:00 98.2 F 74 20 113/58 96 01/24/21 15:00 96 01/24/21 14:56 98.0 F 71 18 106/53 89 L 01/24/21 13:49 73 20 138/73 97 01/24/21 12:58 76 18 110/70 96 01/24/21 11:42 98.2 F 77 18 124/65 92 L Intake and Output 01/24/21 01/24/21 01/24/21 06:59 14:59 22:59 Other: Weight 93.894 kg 93.894 kg GENERAL EXAM: Alert, pleasant 75-year-old female patient, on 2 L, expressive aphasia, comfortable in no apparent distress. HEAD: Normocephalic. EYES: Normal reaction of pupils, equal size. NOSE: Clear with pink turbinates. THROAT: No erythema or exudates. NECK: No masses, no JVD. CHEST: No chest wall deformity. LUNGS: Equal air entry with no crackles, wheeze, rhonchi or dullness. CVS: S1 and S2 normal with no audible murmur, regular rhythm. ABDOMEN: No hepatosplenomegaly, normal bowel sounds, no guarding or rigidity. SPINE: No scoliosis or deformity SKIN: No rashes CENTRAL NERVOUS SYSTEM: As sided weakness, expressive aphasia,, tone is normal in all 4 extremities. EXTREMITIES: There is no peripheral edema. No clubbing, no cyanosis. Peripheral pulses are intact. Results - Laboratory Findings CBC and BMP: 01/24/21 12:40 01/24/21 12:40 PT/INR, D-dimer PT 10.4 sec (9.0-12.0) 01/24/21 12:40 INR 1.0 (<1.2) 01/24/21 12:40 D-Dimer 1.15 mg/L FEU (<0.60) H 01/24/21 12:40 Abnormal lab findings: Abnormal Labs 01/24/21 01/24/21 01/24/21 12:40 12:40 12:40 WBC 11.0 H RBC 3.65 L Hgb 10.6 L Hct 33.5 L RDW 16.5 H Neutrophils # 9.7 H Lymphocytes # 0.8 L APTT 21.0 L D-Dimer 1.15 H Creatinine 1.13 H Glucose 137 H C-Reactive Protein 55.9 H Total Protein 6.2 L Albumin 3.4 L Urine Appearance Urine Protein Urine Blood Ur Leukocyte Esterase Urine RBC Urine WBC Urine WBC Clumps Urine Mucus Coronavirus (PCR) 01/24/21 01/24/21 13:46 14:05 WBC RBC Hgb Hct RDW Neutrophils # Lymphocytes # APTT D-Dimer Creatinine Glucose C-Reactive Protein Total Protein Albumin Urine Appearance Turbid H Urine Protein 2+ H Urine Blood Moderate H Ur Leukocyte Esterase Large H Urine RBC >182 H Urine WBC >182 H Urine WBC Clumps Many H Urine Mucus Occasional H Coronavirus (PCR) Detected A - Diagnostic Findings Chest x-ray: image reviewed Assessment and Plan Assessment: 1 Acute CoVID 19 infection 2 Acute renal failure secondary to nausea vomiting diarrhea, secondary to above 3 Acute hypoxic respiratory failure secondary to acute CoVID 19 infection, no acute pulmonary infiltrates 4 Elevated inflammatory markers secondary to above 5 Acute urinary tract infection, cultures pending 6 History of CVA with expressive aphasia and left-sided weakness 7 Parkinson's disease 8 Chronic kidney disease 9 Chronic anemia 10 Hypertension 11 Hypothyroidism 12 Hyperlipidemia 13 Osteoarthritis 14 Anxiety/depression 15 Poor overall functional performance based on the above-mentioned multiple comorbidities. Plan: The patient was seen and evaluated by Dr. Chong Chest x-ray and labs reviewed Increase IV fluids to 100 ML's per hour Continue antibiotics Continue vitamin supplements Continue dexamethasone, Lovenox Follow-up labs in a.m. We will continue to follow and make further recommendations based on her clinic al status I, the cosigning physician, performed a history & physical examination of the patient. Lungs sounds are clear. Maintaining good O2 saturations in the 90s on 2 L/m per nasal cannula. I discussed the assessment and plan of care with my nurse practitioner, Blanche Gan. I attest to the above consultation as dictated by her. Time with Patient: Greater than 30
[2021-01-24] MEDS: CARBIDOPA-LEVODOPA 25-100 MG 1 EACH TAB PO SCH (20:18)
[2021-01-24] MEDS: allopurinoL 100 MG TAB PO SCH (20:18)
[2021-01-24] MEDS: SENNOSIDES-DOCUSATE SODIUM 1 EACH TAB PO SCH (20:18)
[2021-01-24] MEDS: METOPROLOL TARTRATE 50 MG TAB PO SCH (20:18)
--- NOTE | 2021-01-24 22:18 | P.CONS ---
History of Present Illness - Reason for Consult Consult date: 01/24/21 covid 19 infection Requesting physician: Gume Santiago Jr - Chief Complaint nausea/vomiting, diarrhea x 2 days - History of Present Illness Patient is a 75-year female with a past medical history significant for CVA/left-sided Weakness and expressive aphasia, patient was brought into the ER for evaluation of nausea vomiting diarrhea that has been going on for 2 days before presentation to the hospital patient denies high-grade fever she was noticed to be hypoxic on arrival to the ER with O2 sats of 89% on room air patient did have white count of 11,000 with a left shift and some lymphopenia D- dimer was mildly elevated creatinine was 1.13 there was abnormal CRP and procalcitonin elevated: Second positive patient also have a positive UA patient did have a chest x-ray which was negative for acute pulmonary process patient also have a CT angiogram which was negative for PE and did not show any acute infiltrate patient has been admitted to hospital infectious disease was consulted for further management most information has been mentioned as a result to get a meaningful history from this patient with underlying CVA and expressive aphasia the patient seem to be comfortable in no distress and did have an episode of diarrhea since admission to the hospital but no vomiting. Review of Systems Positive point has been mentioned in HPI complete review could not be obtained because of underlying mental status. 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 No adult children. However they fostered 37 children. 2 pet dogs in the home. No international travel. No experience Smoking Status: Former smoker Past Alcohol Use History: None Reported Past Drug Use History: None Reported - Past Family History Father Family Medical History: No Reported History Medications and Allergies Home Medications Medication Instructions Recorded Confirmed Type Escitalopram Oxalate [Lexapro] 10 mg PO DAILY 10/24/14 03/12/21 History Omeprazole [PriLOSEC] 20 mg PO BID 09/07/14 01/24/21 History Pravastatin Sodium [Pravachol] 80 mg PO DAILY 09/07/14 01/24/21 History allopurinoL [Zyloprim] 100 mg PO BID 09/21/17 01/24/21 History Ergocalciferol (Vitamin D2) 50,000 unit PO Q14D 05/19/19 01/24/21 History [Drisdol (50,000 Iu)] Levothyroxine Sodium [Synthroid] 150 mcg PO DAILY 05/19/19 01/24/21 History Pramipexole [Mirapex] 1 mg PO DAILY 05/19/19 01/24/21 History calcitrioL [Rocaltrol] 0.25 mcg PO SUMOTUWETHFR 05/19/19 01/24/21 History Magnesium Oxide [Mag-Ox] 400 mg PO DAILY #30 tab 06/07/19 01/24/21 Rx amLODIPine [Norvasc] 10 mg PO DAILY #30 tab 06/07/19 01/24/21 Rx Carbidopa-Levodopa 25-100 mg 1 tab PO TID 12/24/20 01/24/21 History [Sinemet 25-100 mg] Carbidopa-Levodopa 25-100 mg 2 tab PO AC-SUPPER 12/24/20 01/24/21 History [Sinemet 25-100 mg] Metoprolol Tartrate [Lopressor] 50 mg PO BID 12/24/20 01/24/21 History Potassium Chloride ER [K-Dur 20] 20 meq PO DAILY 12/24/20 01/24/21 History Triamterene/Hydrochlorothiazid 1 tab PO DAILY 12/24/20 01/24/21 History [Triamterene-Hctz 37.5-25 mg Tb] polyethylene glycoL 3350 [Miralax] 17 gm PO DAILY PRN #0 powd.pack 01/01/21 01/24/21 Rx Sennosides-Docusate Sodium 2 tab PO BID 01/24/21 01/24/21 History [Senokot-S] Allergies Allergy/AdvReac Type Severity Reaction Status Date / Time amiodarone [From Cordarone] Allergy Anaphylaxis Verified 12/24/20 11:38 cyclobenzaprine Allergy Rash/Hives Verified 12/24/20 11:38 [From Flexeril] Physical Exam Vitals: Vital Signs Temp Pulse Pulse Resp BP BP Pulse Ox 01/24/21 16:23 98.0 F 74 20 145/74 96 01/24/21 16:00 98.2 F 74 20 113/58 96 01/24/21 15:00 96 01/24/21 14:56 98.0 F 71 18 106/53 89 L 01/24/21 13:49 73 20 138/73 97 01/24/21 12:58 76 18 110/70 96 01/24/21 11:42 98.2 F 77 18 124/65 92 L Intake and Output 01/24/21 01/24/21 01/24/21 06:59 14:59 22:59 Other: Weight 93.894 kg 93.894 kg GENERAL DESCRIPTION: Elderly female lying in bed, no distress. No tachypnea or accessory muscle of respiration use. HEENT: Shows Pallor , no scleral icterus. Oral mucous membrane is dry. NECK: Trachea central, no thyromegaly. LUNGS: Unlabored breathing. Decrease intensity of breath sounds. No wheeze or crackle. HEART: S1, S2, regular rate and rhythm. ABDOMEN: Soft, no tenderness , guarding or rigidity EXTREMITIES: No edema of feet. SKIN: No rash, no masses palpable. NEUROLOGICAL: The patient is awake, alert, orientation could not be done because of expressive aphasia. Results CBC & Chem 7: 01/24/21 12:40 01/24/21 12:40 Labs: Abnormal Lab Results - Last 24 Hours (Table) 01/24/21 01/24/21 01/24/21 Range/Units 12:40 12:40 12:40 WBC 11.0 H (3.8-10.6) k/uL RBC 3.65 L (3.80-5.40) m/uL Hgb 10.6 L (11.4-16.0) gm/dL Hct 33.5 L (34.0-46.0) % RDW 16.5 H (11.5-15.5) % Neutrophils # 9.7 H (1.3-7.7) k/uL Lymphocytes # 0.8 L (1.0-4.8) k/uL APTT 21.0 L (22.0-30.0) sec D-Dimer 1.15 H (<0.60) mg/L FEU Creatinine 1.13 H (0.52-1.04) mg/dL Glucose 137 H (74-99) mg/dL C-Reactive Protein 55.9 H (<10.0) mg/L Total Protein 6.2 L (6.3-8.2) g/dL Albumin 3.4 L (3.5-5.0) g/dL Urine Appearance (Clear) Urine Protein (Negative) Urine Blood (Negative) Ur Leukocyte Esterase (Negative) Urine RBC (0-5) /hpf Urine WBC (0-5) /hpf Urine WBC Clumps (None) /hpf Urine Mucus (None) /hpf Coronavirus (PCR) (Not Detectd) 01/24/21 01/24/21 Range/Units 13:46 14:05 WBC (3.8-10.6) k/uL RBC (3.80-5.40) m/uL Hgb (11.4-16.0) gm/dL Hct (34.0-46.0) % RDW (11.5-15.5) % Neutrophils # (1.3-7.7) k/uL Lymphocytes # (1.0-4.8) k/uL APTT (22.0-30.0) sec D-Dimer (<0.60) mg/L FEU Creatinine (0.52-1.04) mg/dL Glucose (74-99) mg/dL C-Reactive Protein (<10.0) mg/L Total Protein (6.3-8.2) g/dL Albumin (3.5-5.0) g/dL Urine Appearance Turbid H (Clear) Urine Protein 2+ H (Negative) Urine Blood Moderate H (Negative) Ur Leukocyte Esterase Large H (Negative) Urine RBC >182 H (0-5) /hpf Urine WBC >182 H (0-5) /hpf Urine WBC Clumps Many H (None) /hpf Urine Mucus Occasional H (None) /hpf Coronavirus (PCR) Detected A (Not Detectd) Assessment and Plan Assessment: 1-patient is a hospital beta-hemolytic diarrhea of 2 days duration this patient was noticed to be slightly hypoxic on presentation to the hospital patient denies significant shortness of breath minimal cough no sputum production both chest x-ray and CT was negative for any acute infiltrate possible mild COVID-19 infection. 2-patient with elevated white count significantly positive and history evaluated the patient likely a component of symptomatic UTI (1) COVID-19 Current Visit: Yes Status: Acute Code(s): U07.1 - COVID-19 SNOMED Code(s): 044219188 (2) UTI (lower urinary tract infection) Current Visit: No Status: Acute Code(s): N39.0 - URINARY TRACT INFECTION, SITE NOT SPECIFIED SNOMED Code(s): 0026741 Plan: 1-patient will be started on dexamethasone Lovenox zinc and vitamin C along with respiratory support 2-if the patient did have worsening hypoxemia or develops pulmonary infiltrate may consider adding Aromasin 3-Rocephin 1 g daily for UTI while waiting for the culture to finalize We will follow on clinical condition and cultures to further adjust medication if needed Thank you for this consultation we will follow the patient along with you Time with Patient: Greater than 30
[2021-01-25 00:51] LABS: Ferritin 709.9 ng/mL (10.0-291.0)
[2021-01-25] MEDS: LEVOTHYROXINE 75 MCG TAB PO SCH (05:21)
[2021-01-25 07:16] LABS: Anisocytosis Slight; Basophils % (A) 0 %; Eosinophils # (A) 0.3 k/uL (0-0.7); Eosinophils % (A) 5 %; HCT 29.6 % (34.0-46.0); HGB 9.4 gm/dL (11.4-16.0); Hypochromasia Slight; Lymphocytes # (A) 0.7 k/uL (1.0-4.8); Lymphocytes % (A) 11 %; MCH 29.4 pg (25.0-35.0); MCHC 31.7 g/dL (31.0-37.0); MCV 92.8 fL (80.0-100.0); Mean Platelet Volume 8.5; Monocytes # (A) 0.2 k/uL (0-1.0); Monocytes % (A) 4 %; Neutrophils % (A) 80 %; Platelet Count 127 k/uL (150-450); RBC 3.19 m/uL (3.80-5.40); RDW 16.5 % (11.5-15.5); WBC 6.3 k/uL (3.8-10.6)
[2021-01-25 07:32] LABS: ALT <6 U/L (4-34); AST 14 U/L (14-36); African American GFR (CKD) 60 (>60 ml/min/1.73 sqM); Albumin 2.7 g/dL (3.5-5.0); Albumin/Globulin Ratio 1.1; Alkaline Phosphatase 72 U/L (38-126); Anion Gap 7 mmol/L; Blood Urea Nitrogen 11 mg/dL (7-17); C Reactive Protein 73.4 mg/L (<10.0); Calcium 8.2 mg/dL (8.4-10.2); Carbon Dioxide 28 mmol/L (22-30); Chloride 101 mmol/L (98-107); Globulin 2.5 g/dL; Glucose 84 mg/dL (74-99); LDH 354 U/L (313-618); Non-African American GFR(CKD) 52 (>60 ml/min/1.73 sqM); Sodium 136 mmol/L (137-145); Total Bilirubin 0.4 mg/dL (0.2-1.3); Total Protein 5.2 g/dL (6.3-8.2)
[2021-01-25] MEDS: ASCORBIC ACID 500 MG TAB PO SCH (07:46)
[2021-01-25] MEDS: SENNOSIDES-DOCUSATE SODIUM 1 EACH TAB PO SCH ×2 (07:46→20:38)
[2021-01-25] MEDS: PANTOPRAZOLE 40 MG TABLET PO SCH (07:47)
[2021-01-25] MEDS: ENOXAPARIN 40 MG/0.4 ML SYRINGE SQ SCH (07:47)
[2021-01-25] MEDS: PRAVASTATIN SODIUM 80 MG TAB PO SCH (07:47)
[2021-01-25] MEDS: CARBIDOPA-LEVODOPA 25-100 MG 1 EACH TAB PO SCH ×3 (07:47→20:38)
[2021-01-25] MEDS: ZINC SULFATE 220 MG CAP PO SCH (07:47)
[2021-01-25] MEDS: allopurinoL 100 MG TAB PO SCH ×2 (07:47→20:38)
[2021-01-25] MEDS: amLODIPine 10 MG TAB PO SCH (07:47)
[2021-01-25] MEDS: DEXAMETHASONE SOD PHOSPHATE 10 MG/ML 1 ML VIAL IV SCH (07:48)
[2021-01-25] MEDS: MAGNESIUM OXIDE 400 MG TAB PO SCH (08:02)
[2021-01-25] MEDS: PRAMIPEXOLE 1 MG TAB PO SCH (08:02)
[2021-01-25] MEDS: METOPROLOL TARTRATE 50 MG TAB PO SCH ×2 (08:03→20:38)
[2021-01-25] MEDS: ESCITALOPRAM 10 MG TAB PO SCH (08:03)
[2021-01-25] MEDS: TRIAMTERENE-HCTZ 37.5-25MG 1 EACH TAB PO SCH (08:03)
[2021-01-25] MEDS: POTASSIUM CHLORIDE ER 20 MEQ TAB.ER PO SCH (08:03)
--- NOTE | 2021-01-25 11:49 | P.HPIM ---
History of Present Illness H&P Date: 01/25/21 Chief Complaint: Nausea vomiting, diarrhea and fatigue 75-year-old female patient well known to the practice with past medical history of CVA with left-sided weakness, expressive aphasia chronic renal failure stage III kidney disease, hypertension, hyperlipidemia, Parkinson's, hypothyroidism anxiety and depression. Patient also is former smoker. Patient had presented to PCP office with complaints of 2 day history of nausea, vomiting, diarrhea. EMS was called and patient was transported to ER for evaluation. Her oxygen saturations were found to be in 80s on room air and supplemental oxygen was initiated with good results. Initial laboratory results CBC remarkable WBC 11.0, hemoglobin 10.6, hematocrit 33.5, platelet count 151 neutrophils 11.7 and lymphocytes of 0.8. D-dimer 70 elevated at 1.15, chemistry reveals a sodium 137, potassium 3.6, chloride 100, albumin 13 creatinine 1.13, ferritin level of 709, C-reactive protein of 55.9. Total protein was found to be 6.2, and albumin of 3.4 with pro-calcitonin level was 0.15. She was given a test for coronavirus at the hospital which was found to be positive. CTA was completed with impression of some abnormal study without acute pulmonary embolism being identified and no suspicious acute pulmonary infiltrates. Chest x-ray findings there is no focal airspace opacity, pleural effusion or pneumothorax seen. The cardiac silhouette size is within normal limits. There are no overlapping artifact. There are extensive tortuous. The osseous structures are intact. Initial vital signs she was afebrile with a temperature of 98.2 oral pulse rate is 77 sinus rhythm, respiratory rate of 18, blood pressure 124/65 and at that time was 92% on room air. Review of Systems Constitutional: Reports chills, Reports fever, Reports weakness Ears, nose, mouth and throat: Reports as per HPI Cardiovascular: Reports as per HPI Respiratory: Reports dyspnea Gastrointestinal: Reports diarrhea, Reports nausea, Reports vomiting Genitourinary: Reports as per HPI Menstruation: Reports as per HPI Musculoskeletal: Reports muscle weakness, Reports myalgias Integumentary: Reports as per HPI Neurological: Reports aphasia Psychiatric: Reports as per HPI Endocrine: Reports as per HPI Hematologic/Lymphatic: Reports as per HPI Allergic/Immunologic: Reports as per HPI 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 No adult children. However they fostered 37 children. 2 pet dogs in the home. No international travel. No experience Smoking Status: Former smoker Past Alcohol Use History: None Reported Past Drug Use History: None Reported - Past Family History Father Family Medical History: No Reported History Medications and Allergies Home Medications Medication Instructions Recorded Confirmed Type Escitalopram Oxalate [Lexapro] 10 mg PO DAILY 09/07/14 01/24/21 History Omeprazole [PriLOSEC] 20 mg PO BID 09/07/14 01/24/21 History Pravastatin Sodium [Pravachol] 80 mg PO DAILY 09/07/14 01/24/21 History allopurinoL [Zyloprim] 100 mg PO BID 09/21/17 01/24/21 History Ergocalciferol (Vitamin D2) 50,000 unit PO Q14D 05/19/19 01/24/21 History [Drisdol (50,000 Iu)] Levothyroxine Sodium [Synthroid] 150 mcg PO DAILY 05/19/19 01/24/21 History Pramipexole [Mirapex] 1 mg PO DAILY 05/19/19 01/24/21 History calcitrioL [Rocaltrol] 0.25 mcg PO SUMOTUWETHFR 05/19/19 01/24/21 History Magnesium Oxide [Mag-Ox] 400 mg PO DAILY #30 tab 06/07/19 01/24/21 Rx amLODIPine [Norvasc] 10 mg PO DAILY #30 tab 06/07/19 01/24/21 Rx Carbidopa-Levodopa 25-100 mg 1 tab PO TID 12/24/20 01/24/21 History [Sinemet 25-100 mg] Carbidopa-Levodopa 25-100 mg 2 tab PO AC-SUPPER 12/24/20 01/24/21 History [Sinemet 25-100 mg] Metoprolol Tartrate [Lopressor] 50 mg PO BID 12/24/20 01/24/21 History Potassium Chloride ER [K-Dur 20] 20 meq PO DAILY 12/24/20 01/24/21 History Triamterene/Hydrochlorothiazid 1 tab PO DAILY 12/24/20 01/24/21 History [Triamterene-Hctz 37.5-25 mg Tb] polyethylene glycoL 3350 [Miralax] 17 gm PO DAILY PRN #0 powd.pack 01/01/21 01/24/21 Rx Sennosides-Docusate Sodium 2 tab PO BID 01/24/21 01/24/21 History [Senokot-S] Allergies Allergy/AdvReac Type Severity Reaction Status Date / Time amiodarone [From Cordarone] Allergy Anaphylaxis Verified 12/24/20 11:38 cyclobenzaprine Allergy Rash/Hives Verified 12/24/20 11:38 [From Flexeril] Physical Exam Vitals: Vital Signs Temp Pulse Pulse Resp BP BP BP 01/25/21 08:00 69 20 01/25/21 07:55 01/25/21 05:30 98.4 F 69 20 124/56 01/25/21 01:30 98 F 61 20 115/63 01/24/21 21:35 98.2 F 72 20 119/70 01/24/21 19:30 20 01/24/21 18:06 98.3 F 79 15 118/75 01/24/21 16:23 98.0 F 74 20 145/74 01/24/21 16:00 98.2 F 74 20 113/58 01/24/21 15:00 01/24/21 14:56 98.0 F 71 18 106/53 01/24/21 13:49 73 20 138/73 01/24/21 12:58 76 18 110/70 01/24/21 11:42 98.2 F 77 18 124/65 Pulse Ox 01/25/21 08:00 01/25/21 07:55 97 01/25/21 05:30 96 01/25/21 01:30 97 01/24/21 21:35 96 01/24/21 19:30 01/24/21 18:06 95 01/24/21 16:23 96 01/24/21 16:00 96 01/24/21 15:00 96 01/24/21 14:56 89 L 01/24/21 13:49 97 01/24/21 12:58 96 01/24/21 11:42 92 L Intake and Output 01/24/21 01/25/21 01/25/21 22:59 06:59 14:59 Intake Total 200 Output Total 300 Balance 200 -300 Intake: Oral 200 Output: Emesis 300 Other: Voiding Method External Catheter # Voids 2 1 Weight 93.894 kg GENERAL: Alert, pleasant, well-nourished and in no acute distress. Patient with balanced history of expressive aphasia and on 2 L nasal cannula HEAD: Atraumatic, normocephalic. EYES: Pupils equal round and reactive to light, extraocular movements intact, sclera anicteric, conjunctiva are normal. ENT:nares patent, oropharynx clear without exudates. Moist mucous membranes. NECK: Normal range of motion, supple without lymphadenopathy or JVD, no thyromegaly LUNGS: Breath sounds diminished with upper airway wheezes. No rales or rhonchi. HEART: Regular rate and rhythm without murmurs, rubs or gallops.S1S2 Normal ABDOMEN: Soft, nontender, normoactive bowel sounds. No guarding, no rebound. No masses appreciated. EXTREMITIES: Normal range of motion, no pitting or edema. No clubbing or cyanosis. NEUROLOGICAL: Left-sided weakness, expressive aphasia PSYCH: Normal mood, normal affect. SKIN: Warm, Dry, normal turgor, no rashes or lesions noted. Results CBC & Chem 7: 01/25/21 06:15 01/25/21 06:15 Labs: Abnormal Lab Results - Last 24 Hours (Table) 01/24/21 01/24/21 01/24/21 Range/Units 12:40 12:40 12:40 WBC 11.0 H (3.8-10.6) k/uL RBC 3.65 L (3.80-5.40) m/uL Hgb 10.6 L (11.4-16.0) gm/dL Hct 33.5 L (34.0-46.0) % RDW 16.5 H (11.5-15.5) % Plt Count (150-450) k/uL Neutrophils # 9.7 H (1.3-7.7) k/uL Lymphocytes # 0.8 L (1.0-4.8) k/uL APTT 21.0 L (22.0-30.0) sec D-Dimer 1.15 H (<0.60) mg/L FEU Sodium (137-145) mmol/L Potassium (3.5-5.1) mmol/L Creatinine 1.13 H (0.52-1.04) mg/dL Glucose 137 H (74-99) mg/dL Calcium (8.4-10.2) mg/dL Ferritin 709.9 H (10.0-291.0) ng/mL C-Reactive Protein 55.9 H (<10.0) mg/L Total Protein 6.2 L (6.3-8.2) g/dL Albumin 3.4 L (3.5-5.0) g/dL Procalcitonin (0.02-0.09) ng/mL Urine Appearance (Clear) Urine Protein (Negative) Urine Blood (Negative) Ur Leukocyte Esterase (Negative) Urine RBC (0-5) /hpf Urine WBC (0-5) /hpf Urine WBC Clumps (None) /hpf Urine Mucus (None) /hpf Coronavirus (PCR) (Not Detectd) 01/24/21 01/24/21 01/24/21 Range/Units 13:15 13:46 14:05 WBC (3.8-10.6) k/uL RBC (3.80-5.40) m/uL Hgb (11.4-16.0) gm/dL Hct (34.0-46.0) % RDW (11.5-15.5) % Plt Count (150-450) k/uL Neutrophils # (1.3-7.7) k/uL Lymphocytes # (1.0-4.8) k/uL APTT (22.0-30.0) sec D-Dimer (<0.60) mg/L FEU Sodium (137-145) mmol/L Potassium (3.5-5.1) mmol/L Creatinine (0.52-1.04) mg/dL Glucose (74-99) mg/dL Calcium (8.4-10.2) mg/dL Ferritin (10.0-291.0) ng/mL C-Reactive Protein (<10.0) mg/L Total Protein (6.3-8.2) g/dL Albumin (3.5-5.0) g/dL Procalcitonin 0.15 H (0.02-0.09) ng/mL Urine Appearance Turbid H (Clear) Urine Protein 2+ H (Negative) Urine Blood Moderate H (Negative) Ur Leukocyte Esterase Large H (Negative) Urine RBC >182 H (0-5) /hpf Urine WBC >182 H (0-5) /hpf Urine WBC Clumps Many H (None) /hpf Urine Mucus Occasional H (None) /hpf Coronavirus (PCR) Detected A (Not Detectd) 01/25/21 01/25/21 Range/Units 06:15 06:15 WBC (3.8-10.6) k/uL RBC 3.19 L (3.80-5.40) m/uL Hgb 9.4 L (11.4-16.0) gm/dL Hct 29.6 L (34.0-46.0) % RDW 16.5 H (11.5-15.5) % Plt Count 127 L (150-450) k/uL Neutrophils # (1.3-7.7) k/uL Lymphocytes # 0.7 L (1.0-4.8) k/uL APTT (22.0-30.0) sec D-Dimer (<0.60) mg/L FEU Sodium 136 L (137-145) mmol/L Potassium 3.0 L (3.5-5.1) mmol/L Creatinine 1.05 H (0.52-1.04) mg/dL Glucose (74-99) mg/dL Calcium 8.2 L (8.4-10.2) mg/dL Ferritin (10.0-291.0) ng/mL C-Reactive Protein 73.4 H (<10.0) mg/L Total Protein 5.2 L (6.3-8.2) g/dL Albumin 2.7 L (3.5-5.0) g/dL Procalcitonin (0.02-0.09) ng/mL Urine Appearance (Clear) Urine Protein (Negative) Urine Blood (Negative) Ur Leukocyte Esterase (Negative) Urine RBC (0-5) /hpf Urine WBC (0-5) /hpf Urine WBC Clumps (None) /hpf Urine Mucus (None) /hpf Coronavirus (PCR) (Not Detectd) Microbiology - Last 24 Hours (Table) 01/24/21 14:05 Urine Culture - Preliminary Urine,Voided Thrombosis Risk Factor Assmnt - Choose All That Apply Any of the Below Risk Factors Present?: Yes Each Factor Represents 1 point: Obesity (BMI >25) Other Risk Factors: Yes Each Risk Factor Represents 3 Points: Age 75 years or older Other congenital or acquired thrombophilia - If yes, enter type in comment: No Thrombosis Risk Factor Assessment Total Risk Factor Score: 4 Thrombosis Risk Factor Assessment Level: Moderate Risk Assessment and Plan (1) Acute hypoxemic respiratory failure due to COVID-19 Current Visit: Yes Status: Acute Code(s): U07.1 - COVID-19; J96.01 - ACUTE RESPIRATORY FAILURE WITH HYPOXIA SNOMED Code(s): 118702860 (2) Anxiety and depression Current Visit: Yes Status: Acute Code(s): F41.9 - ANXIETY DISORDER, UNSPE CIFIED; F32.9 - MAJOR DEPRESSIVE DISORDER, SINGLE EPISODE, UNSPECIFIED SNOMED Code(s): 387177411 (3) Chronic kidney disease Current Visit: Yes Status: Acute Code(s): N18.9 - CHRONIC KIDNEY DISEASE, UNSPECIFIED SNOMED Code(s): 066173153 (4) Chronic anemia Current Visit: Yes Status: Acute Code(s): D64.9 - ANEMIA, UNSPECIFIED SNOMED Code(s): 209291730 (5) COVID-19 Current Visit: Yes Status: Acute Code(s): U07.1 - COVID-19 SNOMED Code(s): 953502623 (6) Hypoxia Current Visit: Yes Status: Acute Code(s): R09.02 - HYPOXEMIA SNOMED Code(s): 187919685 (7) Acute renal failure Current Visit: No Status: Acute Code(s): N17.9 - ACUTE KIDNEY FAILURE, UNSPECIFIED SNOMED Code(s): 84682611 (8) Bipolar 1 disorder Current Visit: No Status: Acute Code(s): F31.9 - BIPOLAR DISORDER, UNSPECIFIED SNOMED Code(s): 021199335 (9) Essential (primary) hypertension Current Visit: No Status: Acute Code(s): I10 - ESSENTIAL (PRIMARY) HYPERTENSION SNOMED Code(s): 18250855 (10) History of CVA (cerebrovascular accident) Current Visit: No Status: Acute Code(s): Z86.73 - PRSNL HX OF TIA (TIA), AND CEREB INFRC W/O RESID DEFICITS SNOMED Code(s): 636733685 (11) History of hypothyroidism Current Visit: No Status: Acute Code(s): Z86.39 - PERSONAL HISTORY OF ENDO, NUTRITIONAL AND METABOLIC DISEASE SNOMED Code(s): 364514988 (12) Obesity Current Visit: No Status: Acute Code(s): E66.9 - OBESITY, UNSPECIFIED SNOMED Code(s): 310098563 (13) Parkinson disease Current Visit: No Status: Acute Code(s): G20 - PARKINSON'S DISEASE SNOMED Code(s): 05987998 Plan: 1. Continue currently prescribed medication regimen 2. We'll follow infectious disease and pulmonary recommendations. 3. Continue with nasal cannula to maintain oxygen saturations greater than 93%. 4. We'll reorder lab work for tomorrow 5. DVT prophylaxis with Lovenox and pneumatic compression. 6. Continue with healthy heart diet 7. We'll follow closely and reevaluate again tomorrow. Time with Patient: Greater than 30
[2021-01-25] MEDS: ONDANSETRON 4 MG/2 ML VIAL IVP PRN (12:44)
--- NOTE | 2021-01-25 12:53 | P.PN ---
Subjective Progress Note Date: 01/25/21 Principal diagnosis: Acute CoVID 19 infection This is a very pleasant 75-year-old female patient who follows with Dr. Santiago as her primary care provider. She has a history of CVA/left-sided weakness and expressive aphasia, hypertension, hyperlipidemia, hypothyroidism, Parkinson's disease, anxiety/depression, former smoker and chronic renal failure with stage III kidney disease. She presented to the emergency room earlier today after having a 2 day history of nausea, vomiting, diarrhea. She was also found to be hypoxic with O2 saturations in the 80s on room air. CT angiogram ruled out pulmonary embolism. No suspicious acute pulmonary infiltrates. White count 11.0. Hemoglobin 10.6. Lymphocytes 0.8. D-dimer 1.15. Sodium 137. Potassium 3.6. Creatinine 1.13. Urinalysis positive for large WBCs and moderate blood. Baca virus positive per PCR. She is seen today in consultation on the regular medical floor. She's currently sitting up in bed. Awake and alert in no acute distress. She does have expressive aphasia but is able to answer most questions appropriately. She currently denies any worsening shortness of breath, cough or congestion. She is maintaining O2 saturations in the 90s on 2 L/m per nasal cannula. She's afebrile. Hemodynamically stable. She has been initiated on ceftriaxone, doxycycline Methasone, Lovenox, vitamin supplements. The patient is seen today 01/25/2021 and follow-up on the regular medical floor. She is currently awake and alert in no acute distress. Resting fairly comfortably in bed. She is maintaining good O2 saturations in the 90s on 2 L/m per nasal cannula. She's a dry nonproductive cough. No fever. Hemodynamically stable. Urine culture pending. White count 6.3. Hemoglobin 9.4. Lymphocytes 0.7. Sodium 136. Potassium 3.0. Creatinine 1.05. C-reactive protein 73. She remains on dexamethasone, Lovenox, vitamin supplements. Antibiotics in the form of ceftriaxone. Objective - Vital Signs Vital signs: Vital Signs Temp 98.4 F 01/25/21 05:30 Pulse 69 01/25/21 08:00 Resp 20 01/25/21 08:00 BP 124/56 01/25/21 05:30 Pulse Ox 97 01/25/21 07:55 Intake & Output 01/24/21 01/25/21 01/25/21 18:59 06:59 18:59 Intake Total 200 Output Total 300 Balance 200 -300 Weight 93.894 kg Intake: Oral 200 Output: Emesis 300 Other: Voiding Method External Catheter # Voids 2 1 - Exam GENERAL EXAM: Alert, pleasant 75-year-old female patient, on 2 L, expressive aphasia, comfortable in no apparent distress. HEAD: Normocephalic. EYES: Normal reaction of pupils, equal size. NOSE: Clear with pink turbinates. THROAT: No erythema or exudates. NECK: No masses, no JVD. CHEST: No chest wall deformity. LUNGS: Equal air entry with no crackles, wheeze, rhonchi or dullness. CVS: S1 and S2 normal with no audible murmur, regular rhythm. ABDOMEN: No hepatosplenomegaly, normal bowel sounds, no guarding or rigidity. SPINE: No scoliosis or deformity SKIN: No rashes CENTRAL NERVOUS SYSTEM: Left sided weakness, expressive aphasia,, tone is normal in all 4 extremities. EXTREMITIES: There is no peripheral edema. No clubbing, no cyanosis. Peripheral pulses are intact. - Labs CBC & Chem 7: 01/25/21 06:15 01/25/21 06:15 Labs: Abnormal Lab Results - Last 24 Hours (Table) 01/24/21 01/24/21 01/24/21 Range/Units 12:40 12:40 12:40 WBC 11.0 H (3.8-10.6) k/uL RBC 3.65 L (3.80-5.40) m/uL Hgb 10.6 L (11.4-16.0) gm/dL Hct 33.5 L (34.0-46.0) % RDW 16.5 H (11.5-15.5) % Plt Count (150-450) k/uL Neutrophils # 9.7 H (1.3-7.7) k/uL Lymphocytes # 0.8 L (1.0-4.8) k/uL APTT 21.0 L (22.0-30.0) sec D-Dimer 1.15 H (<0.60) mg/L FEU Sodium (137-145) mmol/L Potassium (3.5-5.1) mmol/L Creatinine 1.13 H (0.52-1.04) mg/dL Glucose 137 H (74-99) mg/dL Calcium (8.4-10.2) mg/dL Ferritin 709.9 H (10.0-291.0) ng/mL C-Reactive Protein 55.9 H (<10.0) mg/L Total Protein 6.2 L (6.3-8.2) g/dL Albumin 3.4 L (3.5-5.0) g/dL Procalcitonin (0.02-0.09) ng/mL Urine Appearance (Clear) Urine Protein (Negative) Urine Blood (Negative) Ur Leukocyte Esterase (Negative) Urine RBC (0-5) /hpf Urine WBC (0-5) /hpf Urine WBC Clumps (None) /hpf Urine Mucus (None) /hpf Coronavirus (PCR) (Not Detectd) 01/24/21 01/24/21 01/24/21 Range/Units 13:15 13:46 14:05 WBC (3.8-10.6) k/uL RBC (3.80-5.40) m/uL Hgb (11.4-16.0) gm/dL Hct (34.0-46.0) % RDW (11.5-15.5) % Plt Count (150-450) k/uL Neutrophils # (1.3-7.7) k/uL Lymphocytes # (1.0-4.8) k/uL APTT (22.0-30.0) sec D-Dimer (<0.60) mg/L FEU Sodium (137-145) mmol/L Potassium (3.5-5.1) mmol/L Creatinine (0.52-1.04) mg/dL Glucose (74-99) mg/dL Calcium (8.4-10.2) mg/dL Ferritin (10.0-291.0) ng/mL C-Reactive Protein (<10.0) mg/L Total Protein (6.3-8.2) g/dL Albumin (3.5-5.0) g/dL Procalcitonin 0.15 H (0.02-0.09) ng/mL Urine Appearance Turbid H (Clear) Urine Protein 2+ H (Negative) Urine Blood Moderate H (Negative) Ur Leukocyte Esterase Large H (Negative) Urine RBC >182 H (0-5) /hpf Urine WBC >182 H (0-5) /hpf Urine WBC Clumps Many H (None) /hpf Urine Mucus Occasional H (None) /hpf Coronavirus (PCR) Detected A (Not Detectd) 01/25/21 01/25/21 Range/Units 06:15 06:15 WBC (3.8-10.6) k/uL RBC 3.19 L (3.80-5.40) m/uL Hgb 9.4 L (11.4-16.0) gm/dL Hct 29.6 L (34.0-46.0) % RDW 16.5 H (11.5-15.5) % Plt Count 127 L (150-450) k/uL Neutrophils # (1.3-7.7) k/uL Lymphocytes # 0.7 L (1.0-4.8) k/uL APTT (22.0-30.0) sec D-Dimer (<0.60) mg/L FEU Sodium 136 L (137-145) mmol/L Potassium 3.0 L (3.5-5.1) mmol/L Creatinine 1.05 H (0.52-1.04) mg/dL Glucose (74-99) mg/dL Calcium 8.2 L (8.4-10.2) mg/dL Ferritin (10.0-291.0) ng/mL C-Reactive Protein 73.4 H (<10.0) mg/L Total Protein 5.2 L (6.3-8.2) g/dL Albumin 2.7 L (3.5-5.0) g/dL Procalcitonin (0.02-0.09) ng/mL Urine Appearance (Clear) Urine Protein (Negative) Urine Blood (Negative) Ur Leukocyte Esterase (Negative) Urine RBC (0-5) /hpf Urine WBC (0-5) /hpf Urine WBC Clumps (None) /hpf Urine Mucus (None) /hpf Coronavirus (PCR) (Not Detectd) Microbiology - Last 24 Hours (Table) 01/24/21 14:05 Urine Culture - Preliminary Urine,Voided Assessment and Plan Assessment: 1 Acute CoVID 19 infection. Not meeting requirements for Remdesivir. 2 Acute renal failure secondary to nausea vomiting diarrhea, secondary to above 3 Acute hypoxic respiratory failure secondary to acute CoVID 19 infection, no acute pulmonary infiltrates 4 Elevated inflammatory markers secondary to above 5 Acute urinary tract infection, cultures pending 6 History of CVA with expressive aphasia and left-sided weakness 7 Parkinson's disease 8 Chronic kidney disease 9 Chronic anemia 10 Hypertension 11 Hypothyroidism 12 Hyperlipidemia 13 Osteoarthritis 14 Anxiety/depression 15 Poor overall functional performance based on the above-mentioned multiple comorbidities. Plan: The patient was seen and evaluated by Dr. Chogn Continue vitamin supplements, dexamethasone, Lovenox Current and ceftriaxone, urine culture pending We will continue to follow I, the cosigning physician, performed a history & physical examination of the patient. Lungs sounds are clear. Maintaining good O2 saturations in the 90s on 2 L/m per nasal cannula. I discussed the assessment and plan of care with my nurse practitioner, Blanche Gan. I attest to the above note as dictated by her.
[2021-01-25 13:13] LABS: Ferritin 573.9 ng/mL (10.0-291.0)
--- NOTE | 2021-01-25 13:58 | ED ---
General Adult HPI - General Chief complaint: Nausea/Vomiting/Diarrhea Stated complaint: Weakness, COVID+ Time Seen by Provider: 01/24/21 12:00 Source: EMS, RN notes reviewed Mode of arrival: EMS Limitations: no limitations - History of Present Illness Initial comments: 75-year-old female with a past medical history of hyperlipidemia, hypertension, 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, hypothyroidism, hypertension, Parkinson's disease presents to the emergency room for a chief complaint of nausea vomiting and diarrhea. Patient was seen at Dr. Santiago's office and did have a positive Covid test performed earlier this week. She was sent into the emergency room for rehydration as well as further evaluation. Patient has been able to eat and drink but is doing so less than normal, feels dehydrated. Oxygen saturation noted to be in the low 90s upon arrival. patient denies noticing any significant shortness of breath or chest pain. Patient has no other complaints at this time including shortness of breath, chest pain, abdominal pain, headache, or visual changes. - Related Data Home Medications Medication Instructions Recorded Confirmed Escitalopram Oxalate [Lexapro] 10 mg PO DAILY 09/07/14 01/24/21 Omeprazole [PriLOSEC] 20 mg PO BID 09/07/14 01/24/21 Pravastatin Sodium [Pravachol] 80 mg PO DAILY 09/07/14 01/24/21 allopurinoL [Zyloprim] 100 mg PO BID 09/21/17 01/24/21 Ergocalciferol (Vitamin D2) 50,000 unit PO Q14D 05/19/19 01/24/21 [Drisdol (50,000 Iu)] Levothyroxine Sodium [Synthroid] 150 mcg PO DAILY 05/19/19 01/24/21 Pramipexole [Mirapex] 1 mg PO DAILY 05/19/19 01/24/21 calcitrioL [Rocaltrol] 0.25 mcg PO SUMOTUWETHFR 05/19/19 01/24/21 Carbidopa-Levodopa 25-100 mg 1 tab PO TID 12/24/20 01/24/21 [Sinemet 25-100 mg] Carbidopa-Levodopa 25-100 mg 2 tab PO AC-SUPPER 12/24/20 01/24/21 [Sinemet 25-100 mg] Metoprolol Tartrate [Lopressor] 50 mg PO BID 12/24/20 01/24/21 Potassium Chloride ER [K-Dur 20] 20 meq PO DAILY 12/24/20 01/24/21 Triamterene/Hydrochlorothiazid 1 tab PO DAILY 12/24/20 01/24/21 [Triamterene-Hctz 37.5-25 mg Tb] Sennosides-Docusate Sodium 2 tab PO BID 01/24/21 01/24/21 [Senokot-S] Previous Rx's Medication Instructions Recorded Magnesium Oxide [Mag-Ox] 400 mg PO DAILY #30 tab 06/07/19 amLODIPine [Norvasc] 10 mg PO DAILY #30 tab 06/07/19 polyethylene glycoL 3350 [Miralax] 17 gm PO DAILY PRN #0 powd.pack 01/01/21 Allergies Allergy/AdvReac Type Severity Reaction Status Date / Time amiodarone [From Cordarone] Allergy Anaphylaxis Verified 12/24/20 11:38 cyclobenzaprine Allergy Rash/Hives Verified 12/24/20 11:38 [From Flexeril] Review of Systems ROS Statement: Those systems with pertinent positive or pertinent negative responses have been documented in the HPI. ROS Other: All systems not noted in ROS Statement are negative. 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 No adult children. However they fostered 37 children. 2 pet dogs in the home. No international travel. No experience Smoking Status: Former smoker Past Alcohol Use History: None Reported Past Drug Use History: None Reported - Past Family History Father Family Medical History: No Reported History General Exam Limitations: no limitations General appearance: alert, in no apparent distress Head exam: Present: atraumatic Eye exam: Present: normal appearance, PERRL, EOMI. Absent: scleral icterus ENT exam: Present: normal exam, mucous membranes moist Neck exam: Present: normal inspection, full ROM. Absent: tenderness Respiratory exam: Present: normal lung sounds bilaterally. Absent: respiratory distress, wheezes Cardiovascular Exam: Present: regular rate, normal rhythm, normal heart sounds GI/Abdominal exam: Present: soft, normal bowel sounds. Absent: distended, tenderness, guarding, rebound, rigid Back exam: Absent: CVA tenderness (R), CVA tenderness (L) Neurological exam: Present: alert Course Vital Signs 01/24/21 01/24/21 01/24/21 11:42 12:58 13:49 Temperature 98.2 F Pulse Rate 77 76 73 Pulse Rate [ Pulse Oximetery ] Respiratory 18 18 20 Rate Blood Pressure 124/65 110/70 138/73 Blood Pressure [Right Arm] O2 Sat by Pulse 92 L 96 97 Oximetry 01/24/21 01/24/21 01/24/21 14:56 15:00 16:00 Temperature 98.0 F 98.2 F Pulse Rate 71 74 Pulse Rate [ Pulse Oximetery ] Respiratory 18 20 Rate Blood Pressure 106/53 113/58 Blood Pressure [Right Arm] O2 Sat by Pulse 89 L 96 96 Oximetry 01/24/21 16:23 Temperature 98.0 F Pulse Rate Pulse Rate [ 74 Pulse Oximetery ] Respiratory 20 Rate Blood Pressure Blood Pressure 145/74 [Right Arm] O2 Sat by Pulse 96 Oximetry Medical Decision Making - Medical Decision Making Patient initially presents 92% on room air. She was started on a nasal cannula. She was satting well on 2 L, we tended to remove this and she did desaturate to the 80s on room air. Nasal cannula was reapplied. HPI physical exam as documented. CBC reveals hemoglobin of 10.6 which is chronic in nature. CMP does reveal dehydration with a creatinine of 1.13. Otherwise unremarkable. Given hypoxia d-dimer was obtained which was elevated at 1.15. Care was signed out to Dr. CAGLE pending evaluation of urinalysis and CT of the chest. - Lab Data Result diagrams: 01/25/21 06:15 01/25/21 06:15 Lab Results 01/24/21 01/24/21 01/24/21 Range/Units 12:40 12:40 12:40 WBC 11.0 H (3.8-10.6) k/uL RBC 3.65 L (3.80-5.40) m/uL Hgb 10.6 L (11.4-16.0) gm/dL Hct 33.5 L (34.0-46.0) % MCV 91.8 (80.0-100.0) fL MCH 29.1 (25.0-35.0) pg MCHC 31.7 (31.0-37.0) g/dL RDW 16.5 H (11.5-15.5) % Plt Count 151 (150-450) k/uL MPV 7.8 Neutrophils % 88 % Lymphocytes % 7 % Monocytes % 3 % Eosinophils % 2 % Basophils % 0 % Neutrophils # 9.7 H (1.3-7.7) k/uL Lymphocytes # 0.8 L (1.0-4.8) k/uL Monocytes # 0.3 (0-1.0) k/uL Eosinophils # 0.2 (0-0.7) k/uL Basophils # 0.0 (0-0.2) k/uL Hypochromasia Slight Anisocytosis Slight PT 10.4 (9.0-12.0) sec INR 1.0 (<1.2) APTT 21.0 L (22.0-30.0) sec D-Dimer 1.15 H (<0.60) mg/L FEU Sodium 137 (137-145) mmol/L Potassium 3.6 (3.5-5.1) mmol/L Chloride 100 (98-107) mmol/L Carbon Dioxide 27 (22-30) mmol/L Anion Gap 10 mmol/L BUN 13 (7-17) mg/dL Creatinine 1.13 H (0.52-1.04) mg/dL Est GFR (CKD-EPI)AfAm 55 (>60 ml/min/1.73 sqM) Est GFR (CKD-EPI)NonAf 48 (>60 ml/min/1.73 sqM) Glucose 137 H (74-99) mg/dL Plasma Lactic Acid Donell (0.7-2.0) mmol/L Calcium 9.2 (8.4-10.2) mg/dL Magnesium 1.6 (1.6-2.3) mg/dL Ferritin 709.9 H (10.0-291.0) ng/mL Total Bilirubin 0.6 (0.2-1.3) mg/dL AST 18 (14-36) U/L ALT <6 (4-34) U/L Alkaline Phosphatase 77 (38-126) U/L Lactate Dehydrogenase 519 (313-618) U/L C-Reactive Protein 55.9 H (<10.0) mg/L Total Protein 6.2 L (6.3-8.2) g/dL Albumin 3.4 L (3.5-5.0) g/dL Procalcitonin (0.02-0.09) ng/mL Urine Color Urine Appearance (Clear) Urine pH (5.0-8.0) Ur Specific [place] (1.001-1.035) Urine Protein (Negative) Urine Glucose (UA) (Negative) Urine Ketones (Negative) Urine Blood (Negative) Urine Nitrite (Negative) Urine Bilirubin (Negative) Urine Urobilinogen (<2.0) mg/dL Ur Leukocyte Esterase (Negative) Urine RBC (0-5) /hpf Urine WBC (0-5) /hpf Urine WBC Clumps (None) /hpf Ur Squamous Epith Cells (0-4) /hpf Urine Mucus (None) /hpf Coronavirus (PCR) (Not Detectd) 01/24/21 01/24/21 01/24/21 Range/Units 12:40 13:15 13:46 WBC (3.8-10.6) k/uL RBC (3.80-5.40) m/uL Hgb (11.4-16.0) gm/dL Hct (34.0-46.0) % MCV (80.0-100.0) fL MCH (25.0-35.0) pg MCHC (31.0-37.0) g/dL RDW (11.5-15.5) % Plt Count (150-450) k/uL MPV Neutrophils % % Lymphocytes % % Monocytes % % Eosinophils % % Basophils % % Neutrophils # (1.3-7.7) k/uL Lymphocytes # (1.0-4.8) k/uL Monocytes # (0-1.0) k/uL Eosinophils # (0-0.7) k/uL Basophils # (0-0.2) k/uL Hypochromasia Anisocytosis PT (9.0-12.0) sec INR (<1.2) APTT (22.0-30.0) sec D-Dimer (<0.60) mg/L FEU Sodium (137-145) mmol/L Potassium (3.5-5.1) mmol/L Chloride (98-107) mmol/L Carbon Dioxide (22-30) mmol/L Anion Gap mmol/L BUN (7-17) mg/dL Creatinine (0.52-1.04) mg/dL Est GFR (CKD-EPI)AfAm (>60 ml/min/1.73 sqM) Est GFR (CKD-EPI)NonAf (>60 ml/min/1.73 sqM) Glucose (74-99) mg/dL Plasma Lactic Acid Donell 1.3 (0.7-2.0) mmol/L Calcium (8.4-10.2) mg/dL Magnesium (1.6-2.3) mg/dL Ferritin (10.0-291.0) ng/mL Total Bilirubin (0.2-1.3) mg/dL AST (14-36) U/L ALT (4-34) U/L Alkaline Phosphatase (38-126) U/L Lactate Dehydrogenase (313-618) U/L C-Reactive Protein (<10.0) mg/L Total Protein (6.3-8.2) g/dL Albumin (3.5-5.0) g/dL Procalcitonin 0.15 H (0.02-0.09) ng/mL Urine Color Urine Appearance (Clear) Urine pH (5.0-8.0) Ur Specific [place] (1.001-1.035) Urine Protein (Negative) Urine Glucose (UA) (Negative) Urine Ketones (Negative) Urine Blood (Negative) Urine Nitrite (Negative) Urine Bilirubin (Negative) Urine Urobilinogen (<2.0) mg/dL Ur Leukocyte Esterase (Negative) Urine RBC (0-5) /hpf Urine WBC (0-5) /hpf Urine WBC Clumps (None) /hpf Ur Squamous Epith Cells (0-4) /hpf Urine Mucus (None) /hpf Coronavirus (PCR) Detected A (Not Detectd) 01/24/21 Range/Units 14:05 WBC (3.8-10.6) k/uL RBC (3.80-5.40) m/uL Hgb (11.4-16.0) gm/dL Hct (34.0-46.0) % MCV (80.0-100.0) fL MCH (25.0-35.0) pg MCHC (31.0-37.0) g/dL RDW (11.5-15.5) % Plt Count (150-450) k/uL MPV Neutrophils % % Lymphocytes % % Monocytes % % Eosinophils % % Basophils % % Neutrophils # (1.3-7.7) k/uL Lymphocytes # (1.0-4.8) k/uL Monocytes # (0-1.0) k/uL Eosinophils # (0-0.7) k/uL Basophils # (0-0.2) k/uL Hypochromasia Anisocytosis PT (9.0-12.0) sec INR (<1.2) APTT (22.0-30.0) sec D-Dimer (<0.60) mg/L FEU Sodium (137-145) mmol/L Potassium (3.5-5.1) mmol/L Chloride (98-107) mmol/L Carbon Dioxide (22-30) mmol/L Anion Gap mmol/L BUN (7-17) mg/dL Creatinine (0.52-1.04) mg/dL Est GFR (CKD-EPI)AfAm (>60 ml/min/1.73 sqM) Est GFR (CKD-EPI)NonAf (>60 ml/min/1.73 sqM) Glucose (74-99) mg/dL Plasma Lactic Acid Donell (0.7-2.0) mmol/L Calcium (8.4-10.2) mg/dL Magnesium (1.6-2.3) mg/dL Ferritin (10.0-291.0) ng/mL Total Bilirubin (0.2-1.3) mg/dL AST (14-36) U/L ALT (4-34) U/L Alkaline Phosphatase (38-126) U/L Lactate Dehydrogenase (313-618) U/L C-Reactive Protein (<10.0) mg/L Total Protein (6.3-8.2) g/dL Albumin (3.5-5.0) g/dL Procalcitonin (0.02-0.09) ng/mL Urine Color Yellow Urine Appearance Turbid H (Clear) Urine pH 6.0 (5.0-8.0) Ur Specific [place] 1.019 (1.001-1.035) Urine Protein 2+ H (Negative) Urine Glucose (UA) Negative (Negative) Urine Ketones Negative (Negative) Urine Blood Moderate H (Negative) Urine Nitrite Negative (Negative) Urine Bilirubin Negative (Negative) Urine Urobilinogen <2.0 (<2.0) mg/dL Ur Leukocyte Esterase Large H (Negative) Urine RBC >182 H (0-5) /hpf Urine WBC >182 H (0-5) /hpf Urine WBC Clumps Many H (None) /hpf Ur Squamous Epith Cells 4 (0-4) /hpf Urine Mucus Occasional H (None) /hpf Coronavirus (PCR) (Not Detectd) Disposition Clinical Impression: Hypoxia, COVID-19 Disposition: ADMITTED IP TO THIS HOSP Condition: Fair
[2021-01-25] MEDS: SODIUM CHLORIDE 0.9% 1,000 ML IV SCH ×2 (17:39→20:39)
--- NOTE | 2021-01-25 22:50 | PN ---
PROGRESS NOTE REASON FOR CONSULTATION: January 25, 2021. REASON FOR FOLLOWUP: 1. COVID-19 infection. 2. Urinary tract infection. INTERVAL HISTORY: The patient is an elderly afebrile. The patient is breathing comfortably. The patient denies having any chest pain. Occasional cough. No abdominal pain. No diarrhea. EXAMINATION: Blood pressure 152/76 pulse of 73, temperature 98.1. General description: Female up in no distress respiratory system. Unlabored breathing, clear to auscultation. HEART: S1, S2. Regular rate and rhythm., Abdomen soft. No tenderness. LAB: 9.4, white count 6.3, BUN of 11, creatinine 1.05. Concern is nausea, vomiting, suppression. DIAGNOSTIC IMPRESSION AND PLAN: 1. Patient with an acute COVID-19 infection in this patient currently covered with dexamethasone, Lovenox Vitamin C/zinc, Vitamin C and is ordered. 2. Patient with UTI covered with Rocephin to continue while waiting for the culture to finalize. MMODL / IJN: [id number] /
[2021-01-26] MEDS: LEVOTHYROXINE 75 MCG TAB PO SCH (05:32)
[2021-01-26] MEDS: SENNOSIDES-DOCUSATE SODIUM 1 EACH TAB PO SCH ×2 (07:31→20:03)
[2021-01-26] MEDS: amLODIPine 10 MG TAB PO SCH (07:31)
[2021-01-26] MEDS: ENOXAPARIN 40 MG/0.4 ML SYRINGE SQ SCH (07:31)
[2021-01-26] MEDS: METOPROLOL TARTRATE 50 MG TAB PO SCH ×2 (07:32→20:03)
[2021-01-26] MEDS: ASCORBIC ACID 500 MG TAB PO SCH (07:32)
[2021-01-26] MEDS: MAGNESIUM OXIDE 400 MG TAB PO SCH (07:32)
[2021-01-26] MEDS: PRAVASTATIN SODIUM 80 MG TAB PO SCH (07:32)
[2021-01-26] MEDS: PANTOPRAZOLE 40 MG TABLET PO SCH (07:32)
[2021-01-26] MEDS: CARBIDOPA-LEVODOPA 25-100 MG 1 EACH TAB PO SCH ×3 (07:32→20:42)
[2021-01-26] MEDS: ZINC SULFATE 220 MG CAP PO SCH (07:32)
[2021-01-26] MEDS: allopurinoL 100 MG TAB PO SCH ×2 (07:32→20:03)
[2021-01-26] MEDS: POTASSIUM CHLORIDE ER 20 MEQ TAB.ER PO SCH (07:32)
[2021-01-26] MEDS: SODIUM CHLORIDE 0.9% 1,000 ML IV SCH ×2 (07:33→20:03)
[2021-01-26] MEDS: TRIAMTERENE-HCTZ 37.5-25MG 1 EACH TAB PO SCH (07:33)
[2021-01-26] MEDS: PRAMIPEXOLE 1 MG TAB PO SCH (07:33)
[2021-01-26] MEDS: DEXAMETHASONE SOD PHOSPHATE 10 MG/ML 1 ML VIAL IV SCH (07:37)
[2021-01-26] MEDS: ESCITALOPRAM 10 MG TAB PO SCH (07:38)
[2021-01-26 09:02] LABS: Basophils # (A) 0.01 X 10*3/uL (0.00-0.10); Basophils % (A) 0.2 %; Eosinophils # (A) 0 X 10*3/uL (0.04-0.35); Eosinophils % (A) 0 %; HCT 28.3 % (37.2-46.3); HGB 8.9 g/dL (12.0-15.0); Lymphocytes % (A) 16.5 %; MCH 29.3 pg (27.0-32.0); MCHC 31.4 g/dL (32.0-37.0); MCV 93.1 fL (80.0-97.0); Mean Platelet Volume 10.2 fL (9.5-12.2); Monocytes # (A) 0.17 X 10*3/uL (0.20-1.00); Monocytes % (A) 3.5 %; Neutrophils # (A) 3.78 X 10*3/uL (1.80-7.70); Neutrophils % (A) 78.1 %; Platelet Count 128 X 10*3/uL (140-440); RBC 3.04 X 10*6/uL (4.10-5.20); RDW 15.3 % (11.5-14.5); WBC 4.84 X 10*3/uL (4.50-10.00)
[2021-01-26 09:28] LABS: ALT <8 U/L (8-44); AST 10 U/L (13-35); African American GFR (CKD) 63.8 (60.0-200.0); Alkaline Phosphatase 73 U/L (41-126); Calcium 8.3 mg/dL (8.7-10.3); Carbon Dioxide 28.3 mmol/L (21.6-31.8); Chloride 103 mmol/L (96-109); Glucose 139 mg/dL (70-110); Magnesium 1.4 mg/dL (1.5-2.4); Non-African American GFR(CKD) 55.1 (60.0-200.0); Potassium 3.5 mmol/L (3.5-5.5); Sodium 140 mmol/L (135-145); Total Bilirubin 0.2 mg/dL (0.2-1.2); Total Protein 5.2 g/dL (6.2-8.2)
--- NOTE | 2021-01-26 11:10 | P.PN ---
Subjective Progress Note Date: 01/26/21 Principal diagnosis: Nausea vomiting, diarrhea, fatigue, and acute Covid 19 infection 75-year-old female patient well known to the practice with past medical history of CVA with left-sided weakness, expressive aphasia chronic renal failure stage III kidney disease, hypertension, hyperlipidemia, Parkinson's, hypothyroidism anxiety and depression. Patient also is former smoker. Patient had presented to PCP office with complaints of 2 day history of nausea, vomiting, diarrhea. EMS was called and patient was transported to ER for evaluation. Her oxygen saturations were found to be in 80s on room air and supplemental oxygen was initiated with good results. Initial laboratory results CBC remarkable WBC 11.0, hemoglobin 10.6, hematocrit 33.5, platelet count 151 neutrophils 11.7 and lymphocytes of 0.8. D-dimer 70 elevated at 1.15, chemistry reveals a sodium 137, potassium 3.6, chloride 100, albumin 13 creatinine 1.13, ferritin level of 709, C-reactive protein of 55.9. Total protein was found to be 6.2, and albumin of 3.4 with pro-calcitonin level was 0.15. She was given a test for coronavirus at the hospital which was found to be positive. CTA was completed with impression of some abnormal study without acute pulmonary embolism being identified and no suspicious acute pulmonary infiltrates. Chest x-ray findings there is no focal airspace opacity, pleural effusion or pneumothorax seen. The cardiac silhouette size is within normal limits. There are no overlapping artifact. There are extensive tortuous. The osseous structures are intact. Initial vital signs she was afebrile with a temperature of 98.2 oral pulse rate is 77 sinus rhythm, respiratory rate of 18, blood pressure 124/65 and at that time was 92% on room air. 01/26/2021 patient currently awake and alert sitting up in bed at this time. She is currently on room air with oxygen saturation of 91%. She is afebrile with a temperature of 98.3 orally, pulse rate is 70, respiratory rate of 18 and unlabored. Blood pressure is 155/78. Patient denies difficulty breathing, chest pain or pressure, vomiting and/or diarrhea. Patient does admit to intermittent nausea after taking some of her pills. Per patient last bowel movement was yesterday. Most recent CBC resulted in a hemoglobin of 8.9, hematocrit 28.3, potassium 4.4, platelet count of 128. Chemistry reveals a sodium of 140, potassium 3.5, albumin of 9, creatinine of 1.0, magnesium 1.4 and she is on oral supplementation. AST of 10 in and ELT of less than 8. Final urine culture report resulted in appearance skin in her genital wilson, patient continues on ceftriaxone at this time. Objective - Vital Signs Vital signs: Vital Signs Temp 98.3 F 01/26/21 10:00 Pulse 70 01/26/21 10:00 Resp 18 01/26/21 10:00 BP 155/78 01/26/21 10:00 Pulse Ox 91 L 01/26/21 10:00 Intake & Output 01/25/21 01/26/21 01/26/21 17:59 06:59 18:59 Intake Total Output Total Balance Intake: Oral Output: Urine Emesis Other: Voiding Method External Catheter # Voids - Exam GENERAL: Well-appearing, well-nourished, expressive aphasia, 2 L nasal cannula and in no acute distress. HEAD: Atraumatic, normocephalic. EYES: Pupils equal round and reactive to light, extraocular movements intact, sclera anicteric, conjunctiva are normal. ENT:nares patent, oropharynx clear without exudates. Moist mucous membranes. NECK: Normal range of motion, supple without lymphadenopathy or JVD, no thyromegaly LUNGS: Breath sounds clear and diminished to auscultation bilaterally and equal. No wheezes rales or rhonchi. HEART: Regular rate and rhythm without murmurs, rubs or gallops.S1S2 Normal ABDOMEN: Soft, nontender, normoactive bowel sounds. No guarding, no rebound. No masses appreciated. EXTREMITIES: Normal range of motion, no pitting or edema. No clubbing or cyanosis. NEUROLOGICAL: Cranial nerves II through XII grossly intact. Expressive aphasia, left-sided weakness. PSYCH: Normal mood, normal affect. SKIN: Warm, Dry, normal turgor, no rashes or lesions noted. - Labs CBC & Chem 7: 01/26/21 05:38 01/26/21 05:38 Labs: Abnormal Lab Results - Last 24 Hours (Table) 01/25/21 01/25/21 01/26/21 Range/Units 06:15 06:15 05:38 RBC 3.04 L (4.10-5.20) X 10*6/uL Hgb 8.9 L (12.0-15.0) g/dL Hct 28.3 L (37.2-46.3) % MCHC 31.4 L (32.0-37.0) g/dL RDW 15.3 H (11.5-14.5) % Plt Count 128 L (140-440) X 10*3/uL Immature Gran # 0.08 H (0.00-0.04) X 10*3/uL Lymphocytes # 0.80 L (0.90-5.00) X 10*3/uL Monocytes # 0.17 L (0.20-1.00) X 10*3/uL Eosinophils # 0 L (0.04-0.35) X 10*3/uL Est GFR (CKD-EPI)NonAf (60.0-200.0) BUN/Creatinine Ratio (12.00-20.00) Ratio Glucose (70-110) mg/dL Calcium (8.7-10.3) mg/dL Magnesium (1.5-2.4) mg/dL Ferritin 573.9 H (10.0-291.0) ng/mL AST (13-35) U/L ALT (8-44) U/L Total Protein (6.2-8.2) g/dL Albumin (3.80-4.90) g/dL Procalcitonin 0.14 H (0.02-0.09) ng/mL 01/26/21 Range/Units 05:38 RBC (4.10-5.20) X 10*6/uL Hgb (12.0-15.0) g/dL Hct (37.2-46.3) % MCHC (32.0-37.0) g/dL RDW (11.5-14.5) % Plt Count (140-440) X 10*3/uL Immature Gran # (0.00-0.04) X 10*3/uL Lymphocytes # (0.90-5.00) X 10*3/uL Monocytes # (0.20-1.00) X 10*3/uL Eosinophils # (0.04-0.35) X 10*3/uL Est GFR (CKD-EPI)NonAf 55.1 L (60.0-200.0) BUN/Creatinine Ratio 9.00 L (12.00-20.00) Ratio Glucose 139 H (70-110) mg/dL Calcium 8.3 L (8.7-10.3) mg/dL Magnesium 1.4 L (1.5-2.4) mg/dL Ferritin (10.0-291.0) ng/mL AST 10 L (13-35) U/L ALT <8 L (8-44) U/L Total Protein 5.2 L (6.2-8.2) g/dL Albumin 3.20 L (3.80-4.90) g/dL Procalcitonin (0.02-0.09) ng/mL Microbiology - Last 24 Hours (Table) 01/24/21 14:05 Urine Culture - Final Urine,Voided Assessment and Plan (1) Acute hypoxemic respiratory failure due to COVID-19 Current Visit: Yes Status: Acute Code(s): U07.1 - COVID-19; J96.01 - ACUTE RESPIRATORY FAILURE WITH HYPOXIA SNOMED Code(s): 452371967 (2) Anxiety and depression Current Visit: Yes Status: Acute Code(s): F41.9 - ANXIETY DISORDER, UNSPECIFIED; F32.9 - MAJOR DEPRESSIVE DISORDER, SINGLE EPISODE, UNSPECIFIED SNOMED Code(s): 059321506 (3) Chronic kidney disease Current Visit: Yes Status: Acute Code(s): N18.9 - CHRONIC KIDNEY DISEASE, UNSPECIFIED SNOMED Code(s): 473733755 (4) Chronic anemia Current Visit: Yes Status: Acute Code(s): D64.9 - ANEMIA, UNSPECIFIED SNOMED Code(s): 399272975 (5) COVID-19 Current Visit: Yes Status: Acute Code(s): U07.1 - COVID-19 SNOMED Code(s): 269988482 (6) Hypoxia Current Visit: Yes Status: Acute Code(s): R09.02 - HYPOXEMIA SNOMED Code(s): 705721084 (7) Acute renal failure Current Visit: No Status: Acute Code(s): N17.9 - ACUTE KIDNEY FAILURE, UNSPECIFIED SNOMED Code(s): 04841926 (8) Bipolar 1 disorder Current Visit: No Status: Acute Code(s): F31.9 - BIPOLAR DISORDER, UNSPECIFIED SNOMED Code(s): 073072339 (9) Essential (primary) hypertension Current Visit: No Status: Acute Code(s): I10 - ESSENTIAL (PRIMARY) HYPERTENSION SNOMED Code(s): 04809579 (10) History of CVA (cerebrovascular accident) Current Visit: No Status: Acute Code(s): Z86.73 - PRSNL HX OF TIA (TIA), AND CEREB INFRC W/O RESID DEFICITS SNOMED Code(s): 374816193 (11) History of hypothyroidism Current Visit: No Status: Acute Code(s): Z86.39 - PERSONAL HISTORY OF ENDO, NUTRITIONAL AND METABOLIC DISEASE SNOMED Code(s): 133489981 (12) Obesity Current Visit: No Status: Acute Code(s): E66.9 - OBESITY, UNSPECIFIED SNOMED Code(s): 285740046 (13) Parkinson disease Current Visit: No Status: Acute Code(s): G20 - PARKINSON'S DISEASE SNOMED Code(s): 16286634 Plan: 1. Continue currently prescribed medication regimen 2. We'll follow infectious disease and pulmonary recommendations. 3. Continue with nasal cannula to maintain oxygen saturations greater than 93%. 4. We'll reorder lab work for tomorrow 5. DVT prophylaxis with Lovenox and pneumatic compression. 6. Continue with healthy heart diet 7. We'll continue to follow closely and reevaluate again tomorrow. Time with Patient: Greater than 30
--- NOTE | 2021-01-26 15:30 | P.PN ---
Subjective Progress Note Date: 01/26/21 Principal diagnosis: Acute CoVID 19 infection This is a very pleasant 75-year-old female patient who follows with Dr. Santiago as her primary care provider. She has a history of CVA/left-sided weakness and expressive aphasia, hypertension, hyperlipidemia, hypothyroidism, Parkinson's disease, anxiety/depression, former smoker and chronic renal failure with stage III kidney disease. She presented to the emergency room earlier today after having a 2 day history of nausea, vomiting, diarrhea. She was also found to be hypoxic with O2 saturations in the 80s on room air. CT angiogram ruled out pulmonary embolism. No suspicious acute pulmonary infiltrates. White count 11.0. Hemoglobin 10.6. Lymphocytes 0.8. D-dimer 1.15. Sodium 137. Potassium 3.6. Creatinine 1.13. Urinalysis positive for large WBCs and moderate blood. Baca virus positive per PCR. She is seen today in consultation on the regular medical floor. She's currently sitting up in bed. Awake and alert in no acute distress. She does have expressive aphasia but is able to answer most questions appropriately. She currently denies any worsening shortness of breath, cough or congestion. She is maintaining O2 saturations in the 90s on 2 L/m per nasal cannula. She's afebrile. Hemodynamically stable. She has been initiated on ceftriaxone, doxycycline Methasone, Lovenox, vitamin supplements. The patient is seen today 01/25/2021 and follow-up on the regular medical floor. She is currently awake and alert in no acute distress. Resting fairly comfortably in bed. She is maintaining good O2 saturations in the 90s on 2 L/m per nasal cannula. She's a dry nonproductive cough. No fever. Hemodynamically stable. Urine culture pending. White count 6.3. Hemoglobin 9.4. Lymphocytes 0.7. Sodium 136. Potassium 3.0. Creatinine 1.05. C-reactive protein 73. She remains on dexamethasone, Lovenox, vitamin supplements. Antibiotics in the form of ceftriaxone. The patient is seen today 01/26/2021 in follow-up on the regular medical floor. She is sitting up in bed. Awake and alert in no acute distress. She continues to maintain good O2 saturations in the 90s on room air. She's afebrile. Hemodynamically stable. White count 4.8. Hemoglobin 8.9. Lymphocytes 0.8. Sodium 140. Potassium 3.5. Creatinine 1.0. She remains on dexamethasone, Lovenox, vitamin supplements. Antibiotics in the form of ceftriaxone. Objective - Vital Signs Vital signs: Vital Signs Temp 98.3 F 01/26/21 13:55 Pulse 89 01/26/21 13:55 Resp 19 01/26/21 13:55 BP 127/70 01/26/21 13:55 Pulse Ox 96 01/26/21 13:55 Intake & Output 01/25/21 01/26/21 01/26/21 17:59 06:59 18:59 Intake Total Output Total 800 Balance -800 Intake: Oral Output: Urine 800 Emesis Other: Voiding Method External Catheter # Voids - Exam GENERAL EXAM: Alert, pleasant 75-year-old female patient, on room air, expressive aphasia, comfortable in no apparent distress. HEAD: Normocephalic. EYES: Normal reaction of pupils, equal size. NOSE: Clear with pink turbinates. THROAT: No erythema or exudates. NECK: No masses, no JVD. CHEST: No chest wall deformity. LUNGS: Equal air entry with no crackles, wheeze, rhonchi or dullness. CVS: S1 and S2 normal with no audible murmur, regular rhythm. ABDOMEN: No hepatosplenomegaly, normal bowel sounds, no guarding or rigidity. SPINE: No scoliosis or deformity SKIN: No rashes CENTRAL NERVOUS SYSTEM: Left sided weakness, expressive aphasia,, tone is normal in all 4 extremities. EXTREMITIES: There is no peripheral edema. No clubbing, no cyanosis. Peripheral pulses are intact. - Labs CBC & Chem 7: 01/26/21 05:38 01/26/21 05:38 Labs: Abnormal Lab Results - Last 24 Hours (Table) 01/26/21 01/26/21 Range/Units 05:38 05:38 RBC 3.04 L (4.10-5.20) X 10*6/uL Hgb 8.9 L (12.0-15.0) g/dL Hct 28.3 L (37.2-46.3) % MCHC 31.4 L (32.0-37.0) g/dL RDW 15.3 H (11.5-14.5) % Plt Count 128 L (140-440) X 10*3/uL Immature Gran # 0.08 H (0.00-0.04) X 10*3/uL Lymphocytes # 0.80 L (0.90-5.00) X 10*3/uL Monocytes # 0.17 L (0.20-1.00) X 10*3/uL Eosinophils # 0 L (0.04-0.35) X 10*3/uL Est GFR (CKD-EPI)NonAf 55.1 L (60.0-200.0) BUN/Creatinine Ratio 9.00 L (12.00-20.00) Ratio Glucose 139 H (70-110) mg/dL Calcium 8.3 L (8.7-10.3) mg/dL Magnesium 1.4 L (1.5-2.4) mg/dL AST 10 L (13-35) U/L ALT <8 L (8-44) U/L Total Protein 5.2 L (6.2-8.2) g/dL Albumin 3.20 L (3.80-4.90) g/dL Microbiology - Last 24 Hours (Table) 01/24/21 14:05 Urine Culture - Final Urine,Voided Assessment and Plan Assessment: 1 Acute CoVID 19 infection. Not meeting requirements for Remdesivir. 2 Acute renal failure secondary to nausea vomiting diarrhea, secondary to above 3 Acute hypoxic respiratory failure secondary to acute CoVID 19 infection, no acute pulmonary infiltrates 4 Elevated inflammatory markers secondary to above 5 Acute urinary tract infection, cultures pending 6 History of CVA with expressive aphasia and left-sided weakness 7 Parkinson's disease 8 Chronic kidney disease 9 Chronic anemia 10 Hypertension 11 Hypothyroidism 12 Hyperlipidemia 13 Osteoarthritis 14 Anxiety/depression 15 Poor overall functional performance based on the above-mentioned multiple comorbidities. Plan: The patient was seen and evaluated by Dr. Chong Continue vitamin supplements, dexamethasone, Lovenox Probable discharge in a.m. We will continue to follow I, the cosigning physician, performed a history & physical examination of the pa tient. Lungs sounds are clear. Maintaining good O2 saturations in the 90s on room air. I discussed the assessment and plan of care with my nurse practitioner, Blanche Gan. I attest to the above note as dictated by her.
--- NOTE | 2021-01-26 18:58 | PN ---
PROGRESS NOTE DATE OF SERVICE: 01/26/2021 REASON FOR FOLLOWUP: COVID-19 infection and UTI. INTERVAL HISTORY: Patient is currently afebrile. The patient is breathing comfortably. Denies having any chest pain or shortness of breath. No cough. No abdominal pain or diarrhea. EXAMINATION: Blood pressure 148/69, pulse 73, temperature 98, she is 97% on 1 L nasal cannula. General description is an elderly female lying in bed in no distress. Respiratory system: Unlabored breathing, decreased breath sounds at bases. No wheeze. Heart S1, S2. Regular rate and rhythm. Abdomen soft, no tenderness. LABS: Hemoglobin 8.1, white count 4.84, BUN of 9, creatinine 1.0. DIAGNOSTIC IMPRESSION/PLAN: 1. Patient with acute COVID-19 infection currently on Dexamethasone, Lovenox, ascorbic acid and zinc and has shown overall clinical improvement. Did have a short course of dexamethasone. 2. Patient with a positive urine culture for urinary tract infection. Urine has been negative. Rocephin can be discontinued on discharge. MMODL / IJN: [id number] /
[2021-01-27] MEDS: SODIUM CHLORIDE 0.9% 1,000 ML IV SCH ×3 (04:45→21:15)
[2021-01-27] MEDS: LEVOTHYROXINE 75 MCG TAB PO SCH (04:45)
[2021-01-27] MEDS: DEXAMETHASONE SOD PHOSPHATE 10 MG/ML 1 ML VIAL IV SCH (07:22)
[2021-01-27] MEDS: METOPROLOL TARTRATE 50 MG TAB PO SCH ×2 (07:23→21:15)
[2021-01-27] MEDS: POTASSIUM CHLORIDE ER 20 MEQ TAB.ER PO SCH (07:23)
[2021-01-27] MEDS: ZINC SULFATE 220 MG CAP PO SCH (07:24)
[2021-01-27] MEDS: amLODIPine 10 MG TAB PO SCH (07:24)
[2021-01-27] MEDS: TRIAMTERENE-HCTZ 37.5-25MG 1 EACH TAB PO SCH (07:24)
[2021-01-27] MEDS: PRAVASTATIN SODIUM 80 MG TAB PO SCH (07:24)
[2021-01-27] MEDS: ASCORBIC ACID 500 MG TAB PO SCH (07:24)
[2021-01-27] MEDS: ESCITALOPRAM 10 MG TAB PO SCH (07:25)
[2021-01-27] MEDS: PRAMIPEXOLE 1 MG TAB PO SCH (07:25)
[2021-01-27] MEDS: PANTOPRAZOLE 40 MG TABLET PO SCH (07:25)
[2021-01-27] MEDS: SENNOSIDES-DOCUSATE SODIUM 1 EACH TAB PO SCH ×2 (07:25→21:16)
[2021-01-27] MEDS: MAGNESIUM OXIDE 400 MG TAB PO SCH (07:25)
[2021-01-27] MEDS: allopurinoL 100 MG TAB PO SCH ×2 (07:25→21:16)
[2021-01-27] MEDS: CARBIDOPA-LEVODOPA 25-100 MG 1 EACH TAB PO SCH ×3 (07:25→21:16)
[2021-01-27] MEDS: ENOXAPARIN 40 MG/0.4 ML SYRINGE SQ SCH (07:26)
[2021-01-27] MEDS: ONDANSETRON 4 MG/2 ML VIAL IVP PRN (07:43)
[2021-01-27 10:43] LABS: Basophils # (A) 0.02 X 10*3/uL (0.00-0.10); Basophils % (A) 0.3 %; Eosinophils # (A) 0.01 X 10*3/uL (0.04-0.35); Eosinophils % (A) 0.2 %; HCT 27.7 % (37.2-46.3); HGB 8.8 g/dL (12.0-15.0); Lymphocytes # (A) 1.12 X 10*3/uL (0.90-5.00); Lymphocytes % (A) 18.4 %; MCH 29.3 pg (27.0-32.0); MCHC 31.8 g/dL (32.0-37.0); MCV 92.3 fL (80.0-97.0); Mean Platelet Volume 9.8 fL (9.5-12.2); Monocytes # (A) 0.36 X 10*3/uL (0.20-1.00); Monocytes % (A) 5.9 %; Neutrophils # (A) 4.41 X 10*3/uL (1.80-7.70); Neutrophils % (A) 72.2 %; Platelet Count 121 X 10*3/uL (140-440)
[2021-01-27 11:10] LABS: ALT <8 U/L (8-44); AST 9 U/L (13-35); African American GFR (CKD) 83.6 (60.0-200.0); Albumin/Globulin Ratio 1.83 (1.60-3.17); Alkaline Phosphatase 65 U/L (41-126); BUN/Creat Ratio 16.25 Ratio (12.00-20.00); Calcium 8.7 mg/dL (8.7-10.3); Carbon Dioxide 30.2 mmol/L (21.6-31.8); Chloride 104 mmol/L (96-109); Globulin 1.8 g/dL (1.6-3.3); Glucose 93 mg/dL (70-110); Magnesium 1.3 mg/dL (1.5-2.4); Non-African American GFR(CKD) 72.1 (60.0-200.0); Potassium 3.8 mmol/L (3.5-5.5); Sodium 140 mmol/L (135-145); Total Bilirubin 0.2 mg/dL (0.3-1.2); Total Protein 5.1 g/dL (6.2-8.2)
--- NOTE | 2021-01-27 13:27 | PN ---
PROGRESS NOTE DATE OF SERVICE: 01/27/2021 REASON FOR FOLLOWUP: UTI and COVID-19 infection. INTERVAL HISTORY: The patient is currently afebrile. Patient is breathing comfortably. Currently 96% on 1 L nasal cannula. The patient denies any chest pain or cough. No abdominal pain and no diarrhea has been reported. PHYSICAL EXAMINATION: Blood pressure 158/72 with a pulse of 66, temperature 98.2. She is 96% on 1 L nasal cannula. General description is an elderly female lying in bed in no distress. RESPIRATORY SYSTEM: Unlabored breathing, clear to auscultation anteriorly. HEART: S1, S2. Regular rate and rhythm. ABDOMEN: Soft, no tenderness. LABS: Hemoglobin 8.8, white count 6.10, BUN of 13, creatinine 0.8. DIAGNOSTIC IMPRESSION AND PLAN: 1. Patient with acute COVID-19 infection. The patient overall clinical response to the current supportive treatment of dexamethasone, Lovenox, Zinc and ascorbic acid to continue. 2. Urinary tract infection, positive urine UA, but culture negative on Rocephin which can be discontinued on discharge. MMODL / IJN: [id number] /
--- NOTE | 2021-01-27 14:16 | P.PN ---
Subjective 75-year-old female patient well known to the practice with past medical history of CVA with left-sided weakness, expressive aphasia chronic renal failure stage III kidney disease, hypertension, hyperlipidemia, Parkinson's, hypothyroidism anxiety and depression. Patient also is former smoker. Patient had presented to PCP office with complaints of 2 day history of nausea, vomiting, diarrhea. EMS was called and patient was transported to ER for evaluation. Her oxygen saturations were found to be in 80s on room air and supplemental oxygen was initiated with good results. Initial laboratory results CBC remarkable WBC 11.0, hemoglobin 10.6, hematocrit 33.5, platelet count 151 neutrophils 11.7 and lymphocytes of 0.8. D-dimer 70 elevated at 1.15, chemistry reveals a sodium 137, potassium 3.6, chloride 100, albumin 13 creatinine 1.13, ferritin level of 709, C-reactive protein of 55.9. Total protein was found to be 6.2, and albumin of 3.4 with pro-calcitonin level was 0.15. She was given a test for coronavirus at the hospital which was found to be positive. CTA was completed with impression of some abnormal study without acute pulmonary embolism being identified and no suspicious acute pulmonary infiltrates. Chest x-ray findings there is no focal airspace opacity, pleural effusion or pneumothorax seen. The cardiac silhouette size is within normal limits. There are no overlapping artifact. There are extensive tortuous. The osseous structures are intact. Initial vital signs she was afebrile with a temperature of 98.2 oral pulse rate is 77 sinus rhythm, respiratory rate of 18, blood pressure 124/65 and at that time was 92% on room air. 01/26/2021 patient currently awake and alert sitting up in bed at this time. Brittni jennings is currently on room air with oxygen saturation of 91%. She is afebrile with a temperature of 98.3 orally, pulse rate is 70, respiratory rate of 18 and unlabored. Blood pressure is 155/78. Patient denies difficulty breathing, chest pain or pressure, vomiting and/or diarrhea. Patient does admit to intermittent nausea after taking some of her pills. Per patient last bowel movement was yesterday. Most recent CBC resulted in a hemoglobin of 8.9, hematocrit 28.3, potassium 4.4, platelet count of 128. Chemistry reveals a sodium of 140, potassium 3.5, albumin of 9, creatinine of 1.0, magnesium 1.4 and she is on oral supplementation. AST of 10 in and ELT of less than 8. Final urine culture report resulted in appearance skin in her genital wilson, patient continues on ceftriaxone at this time. 01/27/2021: patient currently awake and alert sitting up in bed at this time. She is currently on room air with oxygen saturation of 93%. She remsins anemic with a Hb 8.8 today and GFR is 78.2 currently. She is feeling better with les diarreha and less nausea, which prompted Her admission. She has a UTI being tx with Rocephin. She remains on Dexamathasone, zinc, vitamin C. No new issues .She asks when she can go home. She is chrpnicaly debilitated from CVA with lwft sided hempiparesis and is assisted by her . Unfortunateye, he is recovering from COVID at this time as well. Objective - Vital Signs Vital signs: Vital Signs Temp 98.2 F 01/27/21 10:00 Pulse 66 01/27/21 10:00 Resp 18 01/27/21 10:00 BP 158/72 01/27/21 10:00 Pulse Ox 96 01/27/21 10:00 Intake & Output 01/26/21 01/27/21 01/27/21 18:59 06:59 18:59 Intake Total 200 Output Total 800 1000 1000 Balance -800 -1000 -800 Intake: Oral 200 Output: Urine 800 1000 1000 Other: Voiding Method External Catheter External Catheter External Catheter # Voids 1 # Bowel Movements 1 - Exam GENERAL: Well-appearing, well-nourished, expressive aphasia, 2 L nasal cannula and in no acute distress. NECK: Normal range of motion, supple without lymphadenopathy or JVD, no thyromegaly LUNGS: Breath sounds clear to auscultation bilaterally and equal. No wheezes rales or rhonchi. HEART: Regular rate and rhythm without murmurs, rubs or gallops.S1S2 Normal ABDOMEN: Soft, nontender, normoactive bowel sounds. No guarding, no rebound. No masses appreciated.minimally distended due to obesity. EXTREMITIES: Normal range of motion, no pitting or edema. No clubbing or cyanosis. NEUROLOGICAL: Cranial nerves II through XII grossly intact. Expressive aphasia, left-sided weakness. PSYCH: Normal mood, normal affect. SKIN: Warm, Dry, normal turgor, no rashes or lesions noted. - Labs CBC & Chem 7: 01/27/21 06:27 01/27/21 06:27 Labs: Abnormal Lab Results - Last 24 Hours (Table) 01/27/21 01/27/21 Range/Units 06:27 06:27 RBC 3.00 L (4.10-5.20) X 10*6/uL Hgb 8.8 L (12.0-15.0) g/dL Hct 27.7 L (37.2-46.3) % MCHC 31.8 L (32.0-37.0) g/dL RDW 15.0 H (11.5-14.5) % Plt Count 121 L (140-440) X 10*3/uL Immature Gran # 0.18 H (0.00-0.04) X 10*3/uL Eosinophils # 0.01 L (0.04-0.35) X 10*3/uL Magnesium 1.3 L (1.5-2.4) mg/dL Total Bilirubin 0.2 L (0.3-1.2) mg/dL AST 9 L (13-35) U/L ALT <8 L (8-44) U/L Total Protein 5.1 L (6.2-8.2) g/dL Albumin 3.30 L (3.80-4.90) g/dL Assessment and Plan (1) Acute hypoxemic respiratory failure due to COVID-19 Current Visit: Yes Status: Acute Code(s): U07.1 - COVID-19; J96.01 - ACUTE RESPIRATORY FAILURE WITH HYPOXIA SNOMED Code(s): 830849798 (2) COVID-19 Current Visit: Yes Status: Acute Code(s): U07.1 - COVID-19 SNOMED Code(s): 953470655 (3) Chronic anemia Current Visit: Yes Status: Acute Code(s): D64.9 - ANEMIA, UNSPECIFIED SNOMED Code(s): 734872302 (4) Debility Current Visit: No Status: Acute Code(s): R53.81 - OTHER MALAISE SNOMED Code(s): 33302533 (5) Drug rash Current Visit: No Status: Acute Code(s): L27.0 - GEN SKIN ERUPTION DUE TO DRUGS AND MEDS TAKEN INTERNALLY SNOMED Code(s): 80647556 (6) History of CVA (cerebrovascular accident) Current Visit: No Status: Acute Code(s): Z86.73 - PRSNL HX OF TIA (TIA), AND CEREB INFRC W/O RESID DEFICITS SNOMED Code(s): 508635866 (7) Obesity Current Visit: No Status: Acute Code(s): E66.9 - OBESITY, UNSPECIFIED SNOMED Code(s): 964007066 (8) Parkinson disease Current Visit: No Status: Acute Code(s): G20 - PARKINSON'S DISEASE SNOMED Code(s): 27740369 (9) Pure hypercholesterolemia Current Visit: No Status: Acute Code(s): E78.00 - PURE HYPERCHOLESTEROLEMIA, UNSPECIFIED SNOMED Code(s): 482169853 (10) UTI (lower urinary tract infection) Current Visit: No Status: Acute Code(s): N39.0 - URINARY TRACT INFECTION, SITE NOT SPECIFIED SNOMED Code(s): 2642264 Plan: contineu PT/OT possible ECF due to her lack of care available at home. repeat labs in am reevaluate in the next 24 hours
--- NOTE | 2021-01-27 16:22 | P.PN ---
Subjective Progress Note Date: 01/27/21 Principal diagnosis: COVID 19 This is a very pleasant 75-year-old female patient who follows with Dr. Santiago as her primary care provider. She has a history of CVA/left-sided weakness and expressive aphasia, hypertension, hyperlipidemia, hypothyroidism, Parkinson's disease, anxiety/depression, former smoker and chronic renal failure with stage III kidney disease. She presented to the emergency room earlier today after having a 2 day history of nausea, vomiting, diarrhea. She was also found to be hypoxic with O2 saturations in the 80s on room air. CT angiogram ruled out pulmonary embolism. No suspicious acute pulmonary infiltrates. White count 11.0. Hemoglobin 10.6. Lymphocytes 0.8. D-dimer 1.15. Sodium 137. Potassium 3.6. Creatinine 1.13. Urinalysis positive for large WBCs and moderate blood. Baca virus positive per PCR. She is seen today in consultation on the regular medical floor. She's currently sitting up in bed. Awake and alert in no acute distress. She does have expressive aphasia but is able to answer most questions appropriately. She currently denies any worsening shortness of breath, cough or congestion. She is maintaining O2 saturations in the 90s on 2 L/m per nasal cannula. She's afebrile. Hemodynamically stable. She has been initiated on ceftriaxone, doxycycline Methasone, Lovenox, vitamin supplements. The patient is seen today 01/25/2021 and follow-up on the regular medical floor. She is currently awake and alert in no acute distress. Resting fairly comfortably in bed. She is maintaining good O2 saturations in the 90s on 2 L/m per nasal cannula. She's a dry nonproductive cough. No fever. Hemodynamically stable. Urine culture pending. White count 6.3. Hemoglobin 9.4. Lymphocytes 0.7. Sodium 136. Potassium 3.0. Creatinine 1.05. C-reactive protein 73. She remains on dexamethasone, Lovenox, vitamin supplements. Antibiotics in the form of ceftriaxone. The patient is seen today 01/26/2021 in follow-up on the regular medical floor. She is sitting up in bed. Awake and alert in no acute distress. She continues to maintain good O2 saturations in the 90s on room air. She's afebrile. Hemodynamically stable. White count 4.8. Hemoglobin 8.9. Lymphocytes 0.8. Sodium 140. Potassium 3.5. Creatinine 1.0. She remains on dexamethasone, Lovenox, vitamin supplements. Antibiotics in the form of ceftriaxone. On 01/27/2021 patient seen in follow-up. She is currently down to 1 L of oxygen, her pulse ox of 96%, she is breathing comfortably, has had no fever or chills, but a sensitivity stable. No complaints of chest discomfort, no worsening cough, or hypoxia. Patient continues on dexamethasone, prophylactic Lovenox, and vitamins, she continues on ceftriaxone for possibility of urinary tract infection, urine culture has shown no growth. Today's labs have been reviewed, showing no leukocytosis, white blood cell count is 6.1, hemoglobin is 8.8, renal profile were unremarkable, pro-calcitonin level was negative at 0.14. Objective - Vital Signs Vital signs: Vital Signs Temp 98.5 F 01/27/21 14:00 Pulse 73 01/27/21 14:00 Resp 20 01/27/21 14:00 BP 176/76 01/27/21 14:00 Pulse Ox 94 L 01/27/21 14:00 Intake & Output 01/26/21 01/27/21 01/27/21 18:59 06:59 18:59 Intake Total 200 Output Total 800 1000 1000 Balance -800 -1000 -800 Intake: Oral 200 Output: Urine 800 1000 1000 Other: Voiding Method External Catheter External Catheter External Catheter # Voids 1 # Bowel Movements 1 - Exam GENERAL EXAM: Alert, very pleasant, 75-year-old white female on 1 L of oxygen with a pulse ox of 96%, comfortable in no apparent distress. HEAD: Normocephalic/atraumatic. EYES: Normal reaction of pupils, equal size. Conjunctiva pink, sclera white. NOSE: Clear with pink turbinates. THROAT: No erythema or exudates. NECK: No masses, no JVD, no thyroid enlargement, no adenopathy. CHEST: No chest wall deformity. Symmetrical expansion. LUNGS: Equal air entry with no crackles, wheeze, rhonchi or dullness. CVS: Regular rate and rhythm, normal S1 and S2, no gallops, no murmurs, no rubs ABDOMEN: Soft, nontender. No hepatosplenomegaly, normal bowel sounds, no guarding or rigidity. EXTREMITIES: No clubbing, no edema, no cyanosis, 2+ pulses and upper and lower extremities. MUSCULOSKELETAL: Muscle strength and tone normal. SPINE: No scoliosis or deformity SKIN: No rashes CENTRAL NERVOUS SYSTEM: Alert and oriented -3. No focal deficits, tone is normal in all 4 extremities. PSYCHIATRIC: Alert and oriented -3. Appropriate affect. Intact judgment and insight. - Labs CBC & Chem 7: 01/27/21 06:27 01/27/21 06:27 Labs: Abnormal Lab Results - Last 24 Hours (Table) 01/27/21 01/27/21 Range/Units 06:27 06:27 RBC 3.00 L (4.10-5.20) X 10*6/uL Hgb 8.8 L (12.0-15.0) g/dL Hct 27.7 L (37.2-46.3) % MCHC 31.8 L (32.0-37.0) g/dL RDW 15.0 H (11.5-14.5) % Plt Count 121 L (140-440) X 10*3/uL Immature Gran # 0.18 H (0.00-0.04) X 10*3/uL Eosinophils # 0.01 L (0.04-0.35) X 10*3/uL Magnesium 1.3 L (1.5-2.4) mg/dL Total Bilirubin 0.2 L (0.3-1.2) mg/dL AST 9 L (13-35) U/L ALT <8 L (8-44) U/L Total Protein 5.1 L (6.2-8.2) g/dL Albumin 3.30 L (3.80-4.90) g/dL Assessment and Plan Plan: Assessment: #1. Acute COVID 19 infection with no evidence of pneumonia #2. Acute kidney injury related to nausea vomiting and diarrhea, improved #3. Acute hypoxic respiratory failure, possibly related to acute sepsis and urinary tract infection #4. Elevated inflammatory markers second to the above #5. Acute urinary tract infection, covered with Rocephin, urine cultures pending #6. History of CVA with expressive aphasia and left-sided weakness #7. Parkinson's disease #8. Chronic kidney disease #9. Chronic anemia #10. Hypertension #11. Hypothyroidism #12. Hyperlipidemia #13. Osteoarthritis #14. Anxiety depression #15. Poor overall functional performance Plan: Continue Decadron, continue vitamins, continue prophylactic dose Lovenox, increase activity as tolerated, from pulmonary perspective patient is stable, she can be considered for discharge home in the next 24-48 hours if cleared by medicine. We'll obtain follow-up chest x-ray tomorrow and follow-up inflammatory markers I performed a history & physical examination of the patient and discussed their management with my nurse practitioner, Asha Novoa. I reviewed the nurse practitioner's note and agree with the documented findings and plan of care. Lung sounds are positive for diminished breath sounds. The findings and the impression was discussed with the patient. I attest to the documentation by the nurse practitioner. Time with Patient: Less than 30
[2021-01-28] MEDS: LEVOTHYROXINE 75 MCG TAB PO SCH (06:21)
--- NOTE | 2021-01-28 07:43 | XR ---
EXAMINATION TYPE: XR chest 1V portable DATE OF EXAM: 01/28/2021 COMPARISON: 01/24/2021 HISTORY: Shortness of breath TECHNIQUE: Single frontal view of the chest is obtained. FINDINGS: Coarsened interstitium. Heart is enlarged. Ectasia of the aorta. Hiatal hernia excluded. N o pleural effusion. Diffuse osteopenia. Hyperinflation suggests UPJ. IMPRESSION: 1. Cardiomegaly and COPD. Coarsened interstitium may represent chronic interstitial lung disease or i nterstitial pneumonitis.
[2021-01-28] MEDS: PRAMIPEXOLE 1 MG TAB PO SCH (07:59)
[2021-01-28] MEDS: METOPROLOL TARTRATE 50 MG TAB PO SCH (07:59)
[2021-01-28] MEDS: ESCITALOPRAM 10 MG TAB PO SCH (07:59)
[2021-01-28] MEDS: DEXAMETHASONE SOD PHOSPHATE 10 MG/ML 1 ML VIAL IV SCH (07:59)
[2021-01-28] MEDS: TRIAMTERENE-HCTZ 37.5-25MG 1 EACH TAB PO SCH (07:59)
[2021-01-28] MEDS: ASCORBIC ACID 500 MG TAB PO SCH (07:59)
[2021-01-28] MEDS: ZINC SULFATE 220 MG CAP PO SCH (07:59)
[2021-01-28] MEDS: PANTOPRAZOLE 40 MG TABLET PO SCH (07:59)
[2021-01-28] MEDS: allopurinoL 100 MG TAB PO SCH (08:00)
[2021-01-28] MEDS: SENNOSIDES-DOCUSATE SODIUM 1 EACH TAB PO SCH (08:00)
[2021-01-28] MEDS: ENOXAPARIN 40 MG/0.4 ML SYRINGE SQ SCH (08:00)
[2021-01-28] MEDS: PRAVASTATIN SODIUM 80 MG TAB PO SCH (08:00)
[2021-01-28] MEDS: MAGNESIUM OXIDE 400 MG TAB PO SCH (08:00)
[2021-01-28] MEDS: amLODIPine 10 MG TAB PO SCH (08:00)
[2021-01-28] MEDS: CARBIDOPA-LEVODOPA 25-100 MG 1 EACH TAB PO SCH (08:00)
[2021-01-28] MEDS: POTASSIUM CHLORIDE ER 20 MEQ TAB.ER PO SCH (08:00)
[2021-01-28 10:58] LABS: Basophils # (A) 0.04 X 10*3/uL (0.00-0.10); Basophils % (A) 0.5 %; Eosinophils # (A) 0.02 X 10*3/uL (0.04-0.35); Eosinophils % (A) 0.3 %; HCT 30.5 % (37.2-46.3); HGB 9.6 g/dL (12.0-15.0); Lymphocytes # (A) 1.34 X 10*3/uL (0.90-5.00); Lymphocytes % (A) 18.2 %; MCH 29.4 pg (27.0-32.0); MCHC 31.5 g/dL (32.0-37.0); MCV 93.3 fL (80.0-97.0); Mean Platelet Volume 10.1 fL (9.5-12.2); Monocytes # (A) 0.44 X 10*3/uL (0.20-1.00); Neutrophils # (A) 5.24 X 10*3/uL (1.80-7.70); Neutrophils % (A) 71.3 %; Platelet Count 140 X 10*3/uL (140-440); RBC 3.27 X 10*6/uL (4.10-5.20); RDW 14.8 % (11.5-14.5); WBC 7.35 X 10*3/uL (4.50-10.00)
[2021-01-28 11:43] LABS: African American GFR (CKD) 72.5 (60.0-200.0); Albumin 3.5 g/dL (3.80-4.90); Albumin/Globulin Ratio 1.75 (1.60-3.17); Anion Gap 11.8 mmol/L (4.00-12.00); Carbon Dioxide 23.2 mmol/L (21.6-31.8); Magnesium 1.2 mg/dL (1.5-2.4); Non-African American GFR(CKD) 62.5 (60.0-200.0); Total Bilirubin 0.2 mg/dL (0.3-1.2); Total Protein 5.5 g/dL (6.2-8.2)
--- NOTE | 2021-01-28 12:00 | P.DS ---
Providers Date of admission: 01/24/21 15:03 Expected date of discharge: 01/28/21 Attending physician: Gume Santiago Consults: 01/24/21 15:04 Consult Physician Routine Consulting Provider: Shukri Chong Consult Reason/Comments: covid 19, hypoxia Do you want consulting provider notified?: Yes Consult Physician Routine Consulting Provider: Zhane Johnson Consult Reason/Comments: covid 19 Do you want consulting provider notified?: Yes Primary care physician: [facility] Course: Final Diagnoses: (1) Acute hypoxemic respiratory failure due to COVID-19 Current Visit: Yes Status: Acute Code(s): U07.1 - COVID-19; J96.01 - ACUTE RESPIRATORY FAILURE WITH HYPOXIA SNOMED Code(s): 170112617 (2) COVID-19 Current Visit: Yes Status: Acute Code(s): U07.1 - COVID-19 SNOMED Code(s): 433362625 (3) Chronic anemia Current Visit: Yes Status: Acute Code(s): D64.9 - ANEMIA, UNSPECIFIED SNOMED Code(s): 598108466 (4) Debility Current Visit: No Status: Acute Code(s): R53.81 - OTHER MALAISE SNOMED Code(s): 29088821 (5) Drug rash Current Visit: No Status: Acute Code(s): L27.0 - GEN SKIN ERUPTION DUE TO DRUGS AND MEDS TAKEN INTERNALLY SNOMED Code(s): 19937619 (6) History of CVA (cerebrovascular accident) Current Visit: No Status: Acute Code(s): Z86.73 - PRSNL HX OF TIA (TIA), AND CEREB INFRC W/O RESID DEFICITS SNOMED Code(s): 101601442 (7) Obesity Current Visit: No Status: Acute Code(s): E66.9 - OBESITY, UNSPECIFIED SNOMED Code(s): 170824571 (8) Parkinson disease Current Visit: No Status: Acute Code(s): G20 - PARKINSON'S DISEASE SNOMED Code(s): 39843447 (9) Pure hypercholesterolemia Current Visit: No Status: Acute Code(s): E78.00 - PURE HYPERCHOLESTEROLEMIA, UNSPECIFIED SNOMED Code(s): 440314933 (10) UTI (lower urinary tract infection) Current Visit: No Status: Acute Code(s): N39.0 - URINARY TRACT INFECTION, SITE NOT SPECIFIED SNOMED Code(s): 5039374 Hospital course:75-year-old female patient well known to the practice with past medical history of CVA with left-sided weakness, expressive aphasia chronic renal failure stage III kidney disease, hypertension, hyperlipidemia, Parkinson's, hypothyroidism anxiety and depression. Patient also is former smoker. Patient had presented to PCP office with complaints of 2 day history of nausea, vomiting, diarrhea. EMS was called and patient was transported to ER for evaluation. Her oxygen saturations were found to be in 80s on room air and supplemental oxygen was initiated with good results. Initial laboratory results CBC remarkable WBC 11.0, hemoglobin 10.6, hematocrit 33.5, platelet count 151 neutrophils 11.7 and lymphocytes of 0.8. D-dimer 70 elevated at 1.15, chemistry reveals a sodium 137, potassium 3.6, chloride 100, albumin 13 creatinine 1.13, ferritin level of 709, C-reactive protein of 55.9. Total protein was found to be 6.2, and albumin of 3.4 with pro-calcitonin level was 0.15. She was given a test for coronavirus at the hospital which was found to be positive. CTA was completed with impression of some abnormal study without acute pulmonary embolism being identified and no suspicious acute pulmonary infiltrates. Chest x-ray findings there is no focal airspace opacity, pleural effusion or pneumothorax seen. The cardiac silhouette size is within normal limits. There are no overlapping artifact. There are extensive tortuous. The osseous s tructures are intact. Initial vital signs she was afebrile with a temperature of 98.2 oral pulse rate is 77 sinus rhythm, respiratory rate of 18, blood pressure 124/65 and at that time was 92% on room air. 01/26/2021 patient currently awake and alert sitting up in bed at this time. She is currently on room air with oxygen saturation of 91%. She is afebrile with a temperature of 98.3 orally, pulse rate is 70, respiratory rate of 18 and unlabored. Blood pressure is 155/78. Patient denies difficulty breathing, chest pain or pressure, vomiting and/or diarrhea. Patient does admit to intermittent nausea after taking some of her pills. Per patient last bowel movement was yesterday. Most recent CBC resulted in a hemoglobin of 8.9, hematocrit 28.3, potassium 4.4, platelet count of 128. Chemistry reveals a sodium of 140, potassium 3.5, albumin of 9, creatinine of 1.0, magnesium 1.4 and she is on oral supplementation. AST of 10 in and ELT of less than 8. Final urine culture report resulted in appearance skin in her genital wilson, patient continues on ceftriaxone at this time. 01/27/2021: patient currently awake and alert sitting up in bed at this time. She is currently on room air with oxygen saturation of 93%. She remsins anemic with a Hb 8.8 today and GFR is 78.2 currently. She is feeling better with les diarreha and less nausea, which prompted Her admission. She has a UTI being tx with Rocephin. She remains on Dexamathasone, zinc, vitamin C. No new issues .She asks when she can go home. She is chrpnicaly debilitated from CVA with lwft sided hempiparesis and is assisted by her . Unfortunateye, he is recovering from COVID at this time as well. Significant clinical improvement. Cleared by pulmonary and infectious disease for discharge. Patient is a total assist and recommending subacute rehab at discharge. Her is unable to take care of her at home at this time as he was recently hospitalized. Patient will be discharged to subacute rehab today in a stable condition with guarded prognosis. The impression and plan of care has been dictated as directed. : I performed a history and examination of this patient, discussed the same with the dictator. I agree with the dictator's note ,documented as a scribe. Any additional findings or plans will be noted. Patient Condition at Discharge: Stable Plan - Discharge Summary Discharge Rx Participant: Yes New Discharge Prescriptions: New dexAMETHasone [Hexadrol] 6 mg PO DAILY 6 Days #6 tablet Zinc Sulfate [Orazinc] 220 mg PO DAILY cap Ascorbic Acid [Vitamin C] 1,000 mg PO DAILY tab Continue Escitalopram Oxalate [Lexapro] 10 mg PO DAILY Pravastatin Sodium [Pravachol] 80 mg PO DAILY Omeprazole [PriLOSEC] 20 mg PO BID allopurinoL [Zyloprim] 100 mg PO BID Levothyroxine Sodium [Synthroid] 150 mcg PO DAILY Pramipexole [Mirapex] 1 mg PO DAILY calcitrioL [Rocaltrol] 0.25 mcg PO SUMOTUWETHFR Ergocalciferol (Vitamin D2) [Drisdol (50,000 Iu)] 50,000 unit PO Q14D Magnesium Oxide [Mag-Ox] 400 mg PO DAILY #30 tab amLODIPine [Norvasc] 10 mg PO DAILY #30 tab Metoprolol Tartrate [Lopressor] 50 mg PO BID Potassium Chloride ER [K-Dur 20] 20 meq PO DAILY Carbidopa-Levodopa 25-100 mg [Sinemet 25-100 mg] 2 tab PO AC-SUPPER Carbidopa-Levodopa 25-100 mg [Sinemet 25-100 mg] 1 tab PO TID Triamterene/Hydrochlorothiazid [Triamterene-Hctz 37.5-25 mg Tb] 1 tab PO DAILY polyethylene glycoL 3350 [Miralax] 17 gm PO DAILY PRN #0 powd.pack PRN Reason: Constipation Sennosides-Docusate Sodium [Senokot-S] 2 tab PO BID Discharge Medication List Escitalopram Oxalate [Lexapro] 10 mg PO DAILY 09/07/14 [History] Omeprazole [PriLOSEC] 20 mg PO BID 09/07/14 [History] Pravastatin Sodium [Pravachol] 80 mg PO DAILY 09/07/14 [History] allopurinoL [Zyloprim] 100 mg PO BID 09/21/17 [History] Ergocalciferol (Vitamin D2) [Drisdol (50,000 Iu)] 50,000 unit PO Q14D 05/19/19 [History] Levothyroxine Sodium [Synthroid] 150 mcg PO DAILY 05/19/19 [History] Pramipexole [Mirapex] 1 mg PO DAILY 05/19/19 [History] calcitrioL [Rocaltrol] 0.25 mcg PO SUMOTUWETHFR 05/19/19 [History] Magnesium Oxide [Mag-Ox] 400 mg PO DAILY #30 tab 06/07/19 [Rx] amLODIPine [Norvasc] 10 mg PO DAILY #30 tab 06/07/19 [Rx] Carbidopa-Levodopa 25-100 mg [Sinemet 25-100 mg] 1 tab PO TID 12/24/20 [History] Carbidopa-Levodopa 25-100 mg [Sinemet 25-100 mg] 2 tab PO AC-SUPPER 12/24/20 [History] Metoprolol Tartrate [Lopressor] 50 mg PO BID 12/24/20 [History] Potassium Chloride ER [K-Dur 20] 20 meq PO DAILY 12/24/20 [History] Triamterene/Hydrochlorothiazid [Triamterene-Hctz 37.5-25 mg Tb] 1 tab PO DAILY 12/24/20 [History] polyethylene glycoL 3350 [Miralax] 17 gm PO DAILY PRN #0 powd.pack 01/01/21 [Rx] Sennosides-Docusate Sodium [Senokot-S] 2 tab PO BID 01/24/21 [History] Ascorbic Acid [Vitamin C] 1,000 mg PO DAILY tab 01/28/21 [Rx] Zinc Sulfate [Orazinc] 220 mg PO DAILY cap 01/28/21 [Rx] dexAMETHasone [Hexadrol] 6 mg PO DAILY 6 Days #6 tablet 01/28/21 [Rx] Follow up Appointment(s)/Referral(s): Gume Santiago Jr, [Primary Care Provider] - 3 Days [facility], [NON-STAFF] - As Needed Activity/Diet/Wound Care/Special Instructions: doretha SINGH cbc,bmp in 3 days
[2021-01-28 14:37] VITALS: BP 145/76; PULSE 64; RESP 16; TEMP 98.3
--- NOTE | 2021-01-28 14:45 | P.PN ---
Subjective Progress Note Date: 01/28/21 Principal diagnosis: COVID 19 This is a very pleasant 75-year-old female patient who follows with Dr. Santiago as her primary care provider. She has a history of CVA/left-sided weakness and expressive aphasia, hypertension, hyperlipidemia, hypothyroidism, Parkinson's disease, anxiety/depression, former smoker and chronic renal failure with stage III kidney disease. She presented to the emergency room earlier today after having a 2 day history of nausea, vomiting, diarrhea. She was also found to be hypoxic with O2 saturations in the 80s on room air. CT angiogram ruled out pulmonary embolism. No suspicious acute pulmonary infiltrates. White count 11.0. Hemoglobin 10.6. Lymphocytes 0.8. D-dimer 1.15. Sodium 137. Potassium 3.6. Creatinine 1.13. Urinalysis positive for large WBCs and moderate blood. Baca virus positive per PCR. She is seen today in consultation on the regular medical floor. She's currently sitting up in bed. Awake and alert in no acute distress. She does have expressive aphasia but is able to answer most questions appropriately. She currently denies any worsening shortness of breath, cough or congestion. She is maintaining O2 saturations in the 90s on 2 L/m per nasal cannula. She's afebrile. Hemodynamically stable. She has been initiated on ceftriaxone, doxycycline Methasone, Lovenox, vitamin supplements. The patient is seen today 01/25/2021 and follow-up on the regular medical floor. She is currently awake and alert in no acute distress. Resting fairly comfortably in bed. She is maintaining good O2 saturations in the 90s on 2 L/m per nasal cannula. She's a dry nonproductive cough. No fever. Hemodynamically stable. Urine culture pending. White count 6.3. Hemoglobin 9.4. Lymphocytes 0.7. Sodium 136. Potassium 3.0. Creatinine 1.05. C-reactive protein 73. She remains on dexamethasone, Lovenox, vitamin supplements. Antibiotics in the form of ceftriaxone. The patient is seen today 01/26/2021 in follow-up on the regular medical floor. She is sitting up in bed. Awake and alert in no acute distress. She continues to maintain good O2 saturations in the 90s on room air. She's afebrile. Hemodynamically stable. White count 4.8. Hemoglobin 8.9. Lymphocytes 0.8. Sodium 140. Potassium 3.5. Creatinine 1.0. She remains on dexamethasone, Lovenox, vitamin supplements. Antibiotics in the form of ceftriaxone. On 01/27/2021 patient seen in follow-up. She is currently down to 1 L of oxygen, her pulse ox of 96%, she is breathing comfortably, has had no fever or chills, but a sensitivity stable. No complaints of chest discomfort, no worsening cough, or hypoxia. Patient continues on dexamethasone, prophylactic Lovenox, and vitamins, she continues on ceftriaxone for possibility of urinary tract infection, urine culture has shown no growth. Today's labs have been reviewed, showing no leukocytosis, white blood cell count is 6.1, hemoglobin is 8.8, renal profile were unremarkable, pro-calcitonin level was negative at 0.14. On 01/28/2021 patient seen in follow-up on medical floor. She remains on room air, pulse ox is 93%, breathing comfortably, no acute distress, vital signs have been stable, no fever or chills. Today's chest x-ray shows cardiomegaly and COPD, with some coarsened interstitium representing chronic interstitial lung disease. White blood cell count today is 7.35, hemoglobin is 9.6, d-dimer is 0.72, electrolyte renal profile are negative. Monitor markers are improving, urine culture show no growth, remains on Rocephin for possibility of urinary tract infection. Objective - Vital Signs Vital signs: Vital Signs Temp 98.3 F 01/28/21 14:00 Pulse 64 01/28/21 14:00 Resp 16 01/28/21 14:00 BP 145/76 01/28/21 14:00 Pulse Ox 95 01/28/21 14:00 Intake & Output 01/27/21 01/28/21 01/28/21 18:59 06:59 18:59 Intake Total 200 740 500 Output Total 1300 Balance -1100 740 500 Intake: Intake, IV Titration 240 Amount Sodium Chloride 0.9% 1, 240 000 ml @ 100 mls/hr IV . Q10H BALDOMERO Rx#:[id number] Oral 200 500 500 Output: Urine 1300 Other: Voiding Method External Catheter External Catheter External Catheter # Voids 1 # Bowel Movements 1 - Exam GENERAL EXAM: Alert, very pleasant, 75-year-old white female on 1 L of oxygen with a pulse ox of 96%, comfortable in no apparent distress. HEAD: Normocephalic/atraumatic. EYES: Normal reaction of pupils, equal size. Conjunctiva pink, sclera white. NOSE: Clear with pink turbinates. THROAT: No erythema or exudates. NECK: No masses, no JVD, no thyroid enlargement, no adenopathy. CHEST: No chest wall deformity. Symmetrical expansion. LUNGS: Equal air entry with no crackles, wheeze, rhonchi or dullness. CVS: Regular rate and rhythm, normal S1 and S2, no gallops, no murmurs, no rubs ABDOMEN: Soft, nontender. No hepatosplenomegaly, normal bowel sounds, no guarding or rigidity. EXTREMITIES: No clubbing, no edema, no cyanosis, 2+ pulses and upper and lower extremities. MUSCULOSKELETAL: Muscle strength and tone normal. SPINE: No scoliosis or deformity SKIN: No rashes CENTRAL NERVOUS SYSTEM: Alert and oriented -3. No focal deficits, tone is normal in all 4 extremities. PSYCHIATRIC: Alert and oriented -3. Appropriate affect. Intact judgment and insight. - Labs CBC & Chem 7: 01/28/21 06:43 01/28/21 06:43 Labs: Abnormal Lab Results - Last 24 Hours (Table) 01/28/21 01/28/21 01/28/21 Range/Units 06:43 06:43 06:43 RBC 3.27 L (4.10-5.20) X 10*6/uL Hgb 9.6 L (12.0-15.0) g/dL Hct 30.5 L (37.2-46.3) % MCHC 31.5 L (32.0-37.0) g/dL RDW 14.8 H (11.5-14.5) % Immature Gran # 0.27 H (0.00-0.04) X 10*3/uL Eosinophils # 0.02 L (0.04-0.35) X 10*3/uL D-Dimer 0.72 H (<0.60) mg/L FEU Magnesium 1.2 L (1.5-2.4) mg/dL Total Bilirubin 0.2 L (0.3-1.2) mg/dL Lactate Dehydrogenase 273 H (120-246) U/L C-Reactive Protein 2.0 H (0.0-0.8) mg/dL Total Protein 5.5 L (6.2-8.2) g/dL Albumin 3.50 L (3.80-4.90) g/dL Assessment and Plan Plan: Assessment: #1. Acute COVID 19 infection with no evidence of pneumonia #2. Acute kidney injury related to nausea vomiting and diarrhea, improved #3. Acute hypoxic respiratory failure, possibly related to acute sepsis and urinary tract infection #4. Elevated inflammatory markers second to the above #5. Acute urinary tract infection, covered with Rocephin, urine cultures pending #6. History of CVA with expressive aphasia and left-sided weakness #7. Parkinson's disease #8. Chronic kidney disease #9. Chronic anemia #10. Hypertension #11. Hypothyroidism #12. Hyperlipidemia #13. Osteoarthritis #14. Anxiety depression #15. Poor overall functional performance Plan: Follow-up chest x-ray has been reviewed, today's labs have been reviewed, inflammatory markers are improving, obtain home oxygen assessment, she has had no fever or chills, no worsening dyspnea. Patient can finish outpatient course of oral Decadron 6 mg daily for a total of 10 days. I performed a history & physical examination of the patient and discussed their management with my nurse practitioner, Asha Novoa. I reviewed the nurse practitioner's note and agree with the documented findings and plan of care. Lung sounds are positive for diminished breath sounds. The findings and the impression was discussed with the patient. I attest to the documentation by the nurse practitioner. Time with Patient: Less than 30
--- NOTE | 2021-01-29 10:31 | CDI ---
Documentation Clarification Form Date: 01/29/2021 10:19:00 AM From: Caroline Villareal Phone: If you have a question about this query, please contact Faith Martinez, Deputy Head at [phone] between 8am and 5pm. Admit Date: 01/24/2021 03:03:00 PM Patient Name: Leena Carmona Visit Number: [id number] Discharge Date: 01/28/2021 03:50:00 PM ATTENTION: The Clinical Documentation Specialists (CDI) and [facility] Coding Staff appreciate your assistance in clarifying documentation. Please respond to the clarification below the line at the bottom and electronically sign. The CDI & [facility] Coding staff will review the response and follow-up if needed. Please note: Queries are made part of the Legal Health Record. If you have any questions, please contact the author of this message via ITS. Dr. Cameron Nelson Per pulmonary PN's 01/27 and 01/28 "Acute hypoxic respiratory failure possibly related to acute sepsis and UTI. Diagnosis of sepsis not carried through chart to DCS. Please clarify if patient had sepsis or was it ruled out. History/Risk Factors: Covid 19 and UTI Clinical Indicators: WBC: 11.0 Lactic acid: 1.3 Vitals signs: 98.2 F, 77 bpm, 18, 124/65, 92% RA Treatment: Rocephin and ceftriaxone ID Consult: UTI Covid In your professional opinion, please clarify if these findings signify one of the following conditions: [ ] Sepsis POA [ ] Sepsis, Not POA [ X ] Sepsis ruled out [ ] Severe Sepsis with organ failure [ ] Septic Shock [ ] SIRS, without underlying infectious process [ ] Other, please specify [ ] Unable to determine SIRS Criteria: 2 or more of the following may indicate SIRS Temperature < 96.8F (36C) or > 101.0F (38.3C) Heart Rate > 90 bpm Respiratory Rate > 20 breaths/min or PaCO2 < 32 mmHg White Blood Cell Count > 12,000 or < 4,000 cells/mm3 or > 10% bands MTDD
== END 2021-01-28 15:50 | disposition home health service (06) | DRG 177 ==
LOC: EC 11:41 → 4SSUR 15:03
PROVIDERS: ADMIT Family Medicine; ATTEND Family Medicine
DX: U07.1 COVID-19 (principal); J96.01 Acute respiratory failure with hypoxia; N39.0 Urinary tract infection, site not specified; I69.354 Hemiplegia and hemiparesis following cerebral infarction affecting left non-dominant side; J84.9 Interstitial pulmonary disease, unspecified; N17.9 Acute kidney failure, unspecified; N18.30 Chronic kidney disease, stage 3 unspecified; M19.90 Unspecified osteoarthritis, unspecified site; D64.9 Anemia, unspecified; E03.9 Hypothyroidism, unspecified; E66.9 Obesity, unspecified; Z68.32 Body mass index [BMI] 32.0-32.9, adult; E78.00 Pure hypercholesterolemia, unspecified; E78.5 Hyperlipidemia, unspecified; E86.0 Dehydration; F31.9 Bipolar disorder, unspecified; F41.8 Other specified anxiety disorders; G20 Parkinson's disease; I12.9 Hypertensive chronic kidney disease with stage 1 through stage 4 chronic kidney disease, or unspecified chronic kidney disease; I69.320 Aphasia following cerebral infarction; J44.9 Chronic obstructive pulmonary disease, unspecified; L27.0 Generalized skin eruption due to drugs and medicaments taken internally; Z79.890 Hormone replacement therapy; Z79.899 Other long term (current) drug therapy; Z87.891 Personal history of nicotine dependence; Z90.710 Acquired absence of both cervix and uterus; R11.2 Nausea with vomiting, unspecified; R19.7 Diarrhea, unspecified; R53.81 Other malaise; Z88.8 Allergy status to other drugs, medicaments and biological substances
CPT/HCPCS: 36415; 71045; 71275; 80053; 81001; 82728; 83605; 83615; 83735; 84145; 85025; 85379; 85610; 85730; 86140; 87086; 87635; 93005; 94760; 96361; 96372; 96374; 99285

== ENCOUNTER 2021-03-10 16:06 | Inpatient (IN) | payer MEDICARE ==
[2021-03-10] MEDS ORDERED: SODIUM CHLORIDE 0.9% 500 ML 500 ML IV STA (16:33)
[2021-03-10] MEDS ORDERED: ONDANSETRON 4 MG/2 ML VIAL IVP STA ×2 (16:33→19:08)
[2021-03-10] MEDS ORDERED: MORPHINE SULFATE 2 MG/ML SYRINGE IVP STA (16:33)
[2021-03-10 17:07] LABS: Basophils % (A) 0 %; Eosinophils # (A) 0.1 k/uL (0-0.7); Eosinophils % (A) 1 %; HCT 29.1 % (34.0-46.0); HGB 9.8 gm/dL (11.4-16.0); Lymphocytes # (A) 0.9 k/uL (1.0-4.8); Lymphocytes % (A) 8 %; MCH 28.6 pg (25.0-35.0); MCHC 33.5 g/dL (31.0-37.0); Mean Platelet Volume 8.6; Monocytes # (A) 0.4 k/uL (0-1.0); Monocytes % (A) 4 %; Neutrophils # (A) 9.6 k/uL (1.3-7.7); Neutrophils % (A) 87 %; Platelet Count 224 k/uL (150-450); RBC 3.41 m/uL (3.80-5.40); RDW 15.9 % (11.5-15.5)
[2021-03-10] MEDS ORDERED: NYSTATIN 100,000UNIT/GM CREAM 30 GM TUBE TOPICAL STA (17:07)
[2021-03-10 17:12] LABS: Amorphous Sediment,Urine Rare /hpf; Appearance,Urine Turbid (Clear); Bacteria,Urine Few /hpf; Bilirubin,Urine Negative (Negative); Blood,Urine Moderate (Negative); Color,Urine Yellow; Glucose,Urine (UA) Negative (Negative); Ketones,Urine Trace (Negative); Leukocyte Esterase,Urine Large (Negative); MCV 85.4 fL (80.0-100.0); Nitrite,Urine Negative (Negative); Protein,Urine 2+ (Negative); RBC,Urine 56 /hpf (0-5); Squamous Epithelial Cell,Urine 31 /hpf (0-4); Urobilinogen,Urine <2.0 mg/dL (<2.0); WBC,Urine >182 /hpf (0-5)
--- NOTE | 2021-03-10 17:13 | ED ---
Abdominal Pain HPI - General Chief Complaint: Abdominal Pain Stated Complaint: weakness, abd pain Time Seen by Provider: 03/10/21 16:26 Source: patient, EMS Mode of arrival: EMS Limitations: no limitations - History of Present Illness Initial Comments: Patient is a 75-year-old female with history of CVA, kidney disease, hypertension, presenting to the emergency department via EMS with complaints of abdominal pain, nausea and vomiting and also some weakness. She states she has not had a bowel movement in 2 days. She states she has been having vomiting on and off for 2 weeks now. She is starting to become weak. She admits to history of hysterectomy, no other abdominal surgeries. Her pain is in upper abdomen, no radiation, currently it is a 6/10. She describes the pain as constant, pressure and sharp at times. She denies any fevers or chills, no chest pain or shortness of breath. Patient is also complaining of pain underneath her left breast. She has a rash there. She is not sure how long the rash is been there. Patient is a poor historian. Patient has no further complaints at this time. Upon arrival to the ER, vital signs are stable. - Related Data Home Medications Medication Instructions Recorded Confirmed Escitalopram Oxalate [Lexapro] 10 mg PO DAILY 09/07/14 01/24/21 Omeprazole [PriLOSEC] 20 mg PO BID 09/07/14 01/24/21 Pravastatin Sodium [Pravachol] 80 mg PO DAILY 09/07/14 01/24/21 allopurinoL [Zyloprim] 100 mg PO BID 09/21/17 01/24/21 Ergocalciferol (Vitamin D2) 50,000 unit PO Q14D 05/19/19 01/24/21 [Drisdol (50,000 Iu)] Levothyroxine Sodium [Synthroid] 150 mcg PO DAILY 05/19/19 01/24/21 Pramipexole [Mirapex] 1 mg PO DAILY 05/19/19 01/24/21 calcitrioL [Rocaltrol] 0.25 mcg PO SUMOTUWETHFR 05/19/19 01/24/21 Carbidopa-Levodopa 25-100 mg 1 tab PO TID 12/24/20 01/24/21 [Sinemet 25-100 mg] Carbidopa-Levodopa 25-100 mg 2 tab PO AC-SUPPER 12/24/20 01/24/21 [Sinemet 25-100 mg] Metoprolol Tartrate [Lopressor] 50 mg PO BID 12/24/20 01/24/21 Potassium Chloride ER [K-Dur 20] 20 meq PO DAILY 12/24/20 01/24/21 Triamterene/Hydrochlorothiazid 1 tab PO DAILY 12/24/20 01/24/21 [Triamterene-Hctz 37.5-25 mg Tb] Sennosides-Docusate Sodium 2 tab PO BID 01/24/21 01/24/21 [Senokot-S] Previous Rx's Medication Instructions Recorded Magnesium Oxide [Mag-Ox] 400 mg PO DAILY #30 tab 06/07/19 amLODIPine [Norvasc] 10 mg PO DAILY #30 tab 06/07/19 polyethylene glycoL 3350 [Miralax] 17 gm PO DAILY PRN #0 powd.pack 01/01/21 Ascorbic Acid [Vitamin C] 1,000 mg PO DAILY tab 01/28/21 Zinc Sulfate [Orazinc] 220 mg PO DAILY cap 01/28/21 dexAMETHasone ORAL [Hexadrol] 6 mg PO DAILY 6 Days #6 tablet 01/28/21 Allergies Allergy/AdvReac Type Severity Reaction Status Date / Time amiodarone [From Cordarone] Allergy Anaphylaxis Verified 03/10/21 16:21 cyclobenzaprine Allergy Rash/Hives Verified 03/10/21 16:21 [From Flexeril] Review of Systems ROS Statement: Those systems with pertinent positive or pertinent negative responses have been documented in the HPI. ROS Other: All systems not noted in ROS Statement are negative. 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, hypothyroidism, hypertension, hyperlipidemia, Parkinson's disease, degenerative arthritis, anxiety, depression History of Any Multi-Drug Resistant Organisms: None Reported Past Surgical History: Hysterectomy, Orthopedic Surgery Additional Past Surgical History / Comment(s): Hammer toe surgery, recent infect ion to toe Past Anesthesia/Blood Transfusion Reactions: No Reported Reaction Past Psychological History: Anxiety, Bipolar, Depression Smoking Status: Former smoker Past Alcohol Use History: None Reported Past Drug Use History: None Reported - Past Family History Father Family Medical History: No Reported History General Exam - General Exam Comments Initial Comments: GENERAL: Patient is well-developed and well-nourished. Patient is nontoxic and in mild distress. HEAD: Atraumatic, normocephalic. EYES: Pupils equal round and reactive to light, extraocular movements intact, sclera anicteric, conjunctiva are normal. Eyelids were unremarkable. ENT: TMs normal, nares patent, oropharynx clear without exudates. Moist mucous membranes. NECK: Normal range of motion, supple without lymphadenopathy or JVD. LUNGS: Unlabored respirations. Breath sounds clear to auscultation bilaterally and equal. No wheezes rales or rhonchi. HEART: Regular rate and rhythm without murmurs, rubs or gallops. ABDOMEN: Patient seems to be guarding on palpation, pain upper abdomen, right side, hypoactive bowel sounds. No masses appreciated. : Deferred MUSCULOSKELETAL: Normal extremities with adequate strength and normal range of motion, no pitting or edema. No clubbing or cyanosis. NEUROLOGICAL: Patient is alert and oriented x 3. Motor and sensory are also intact. Cranial nerves II through XII grossly intact. Symmetrical smile. Normal speech, normal gait. PSYCH: Normal mood, normal affect. SKIN: Warm, Dry, normal turgor. Patient has a yeast infection noted under the left breast, the area is erythematous, odor noted. She also has some mild redness of the inner thighs consistent with the yeast as well. Limitations: no limitations Course Vital Signs 03/10/21 03/10/21 16:16 18:59 Temperature 98.1 F Pulse Rate 80 76 Respiratory 17 18 Rate Blood Pressure 150/71 112/60 O2 Sat by Pulse 98 93 L Oximetry Medical Decision Making - Medical Decision Making Patient is a 75-year-old female with history of CVA, hypertension, kidney disease presenting via EMS with complaints of a few days of abdominal pain, no bowel movement in 2 days, vomiting on and off for 2 weeks. Her vitals are stable. Seems to be tender and guarding her upper abdomen, right side. She also has a significant yeast infection underneath the left breast as well as some mild erythema to the inner thighs. Labs show a white count 11.0, stable hemoglobin 9.8. Kidney function seems to be worse than her baseline, creatinine is 1.59, BUN is 44. Lactic acid is 0.9. Patient does have some WBCs and clumps noted in her urine however she did have a urinary stent placed in December and her urine has looked like this for many months. Urine culture is pending. CT of the abdomen and pelvis shows bilateral hydronephrosis that is much more severe on the right side, there is a right ureteral stent that appears to be in good position but no change in the hydronephrosis compared to old exam before the stent. Stent malfunction is possible, no obstructing calculus seen. Ends of bowel obstruction. Patient has been given a total of 1 L fluids in the ER, some morphine for pain. Patient will be admitted for nausea and vomiting and abdominal pain, we will consult urology. I did speak to Dr. Castaneda who agrees to see her in consult. Patient accepted by Dr. Nelson. Case discussed with Dr. Cardona. - Lab Data Result diagrams: 03/10/21 16:58 03/10/21 16:58 Lab Results 03/10/21 03/10/21 03/10/21 Range/Units 16:58 16:58 16:58 WBC 11.0 H (3.8-10.6) k/uL RBC 3.41 L (3.80-5.40) m/uL Hgb 9.8 L (11.4-16.0) gm/dL Hct 29.1 L (34.0-46.0) % MCV 85.4 D (80.0-100.0) fL MCH 28.6 (25.0-35.0) pg MCHC 33.5 (31.0-37.0) g/dL RDW 15.9 H (11.5-15.5) % Plt Count 224 (150-450) k/uL MPV 8.6 Neutrophils % 87 % Lymphocytes % 8 % Monocytes % 4 % Eosinophils % 1 % Basophils % 0 % Neutrophils # 9.6 H (1.3-7.7) k/uL Lymphocytes # 0.9 L (1.0-4.8) k/uL Monocytes # 0.4 (0-1.0) k/uL Eosinophils # 0.1 (0-0.7) k/uL Basophils # 0.0 (0-0.2) k/uL PT 10.8 (9.0-12.0) sec INR 1.0 (<1.2) APTT 19.9 L (22.0-30.0) sec Sodium (137-145) mmol/L Potassium (3.5-5.1) mmol/L Chloride (98-107) mmol/L Carbon Dioxide (22-30) mmol/L Anion Gap mmol/L BUN (7-17) mg/dL Creatinine (0.52-1.04) mg/dL Est GFR (CKD-EPI)AfAm (>60 ml/min/1.73 sqM) Est GFR (CKD-EPI)NonAf (>60 ml/min/1.73 sqM) Glucose (74-99) mg/dL Plasma Lactic Acid Donell (0.7-2.0) mmol/L Calcium (8.4-10.2) mg/dL Total Bilirubin (0.2-1.3) mg/dL AST (14-36) U/L ALT (4-34) U/L Alkaline Phosphatase (38-126) U/L Total Protein (6.3-8.2) g/dL Albumin (3.5-5.0) g/dL Amylase (30-110) U/L Lipase (23-300) U/L Urine Color Yellow Urine Appearance Turbid H (Clear) Urine pH 6.0 (5.0-8.0) Ur Specific Bradford 1.020 (1.001-1.035) Urine Protein 2+ H (Negative) Urine Glucose (UA) Negative (Negative) Urine Ketones Trace H (Negative) Urine Blood Moderate H (Negative) Urine Nitrite Negative (Negative) Urine Bilirubin Negative (Negative) Urine Urobilinogen <2.0 (<2.0) mg/dL Ur Leukocyte Esterase Large H (Negative) Urine RBC 56 H (0-5) /hpf Urine WBC >182 H (0-5) /hpf Urine WBC Clumps Many H (None) /hpf Ur Squamous Epith Cells 31 H (0-4) /hpf Amorphous Sediment Rare H (None) /hpf Urine Bacteria Few H (None) /hpf 03/10/21 03/10/21 Range/Units 16:58 16:58 WBC (3.8-10.6) k/uL RBC (3.80-5.40) m/uL Hgb (11.4-16.0) gm/dL Hct (34.0-46.0) % MCV (80.0-100.0) fL MCH (25.0-35.0) pg MCHC (31.0-37.0) g/dL RDW (11.5-15.5) % Plt Count (150-450) k/uL MPV Neutrophils % % Lymphocytes % % Monocytes % % Eosinophils % % Basophils % % Neutrophils # (1.3-7.7) k/uL Lymphocytes # (1.0-4.8) k/uL Monocytes # (0-1.0) k/uL Eosinophils # (0-0.7) k/uL Basophils # (0-0.2) k/uL PT (9.0-12.0) sec INR (<1.2) APTT (22.0-30.0) sec Sodium 137 (137-145) mmol/L Potassium 4.1 (3.5-5.1) mmol/L Chloride 99 (98-107) mmol/L Carbon Dioxide 30 (22-30) mmol/L Anion Gap 8 mmol/L BUN 44 H (7-17) mg/dL Creatinine 1.59 H (0.52-1.04) mg/dL Est GFR (CKD-EPI)AfAm 36 (>60 ml/min/1.73 sqM) Est GFR (CKD-EPI)NonAf 32 (>60 ml/min/1.73 sqM) Glucose 121 H (74-99) mg/dL Plasma Lactic Acid Donell 0.9 (0.7-2.0) mmol/L Calcium 9.9 (8.4-10.2) mg/dL Total Bilirubin 0.6 (0.2-1.3) mg/dL AST 12 L (14-36) U/L ALT <6 (4-34) U/L Alkaline Phosphatase 103 (38-126) U/L Total Protein 6.5 (6.3-8.2) g/dL Albumin 3.8 (3.5-5.0) g/dL Amylase 51 (30-110) U/L Lipase 83 (23-300) U/L Urine Color Urine Appearance (Clear) Urine pH (5.0-8.0) Ur Specific Bradford (1.001-1.035) Urine Protein (Negative) Urine Glucose (UA) (Negative) Urine Ketones (Negative) Urine Blood (Negative) Urine Nitrite (Negative) Urine Bilirubin (Negative) Urine Urobilinogen (<2.0) mg/dL Ur Leukocyte Esterase (Negative) Urine RBC (0-5) /hpf Urine WBC (0-5) /hpf Urine WBC Clumps (None) /hpf Ur Squamous Epith Cells (0-4) /hpf Amorphous Sediment (None) /hpf Urine Bacteria (None) /hpf - EKG Data EKG Comments: Normal sinus rhythm, left axis deviation, age undetermined possible infarcts, no signs of acute ischemia. This is similar to previous EKG on 01/24/2021. Ventricular rate 89, VA interval 190, QT 388. Disposition Clinical Impression: Abdominal pain, Nausea and vomiting, Acute on chronic renal failure, Dehydration Disposition: ADMITTED IP TO THIS [facility] Condition: Stable Referrals: Gume Santiago Jr, DO [Doctor of Osteopathic Medicine] - 1-2 days Decision Date: 03/10/21 Decision Time: 19:10
[2021-03-10 17:18] LABS: ALT <6 U/L (4-34); AST 12 U/L (14-36); African American GFR (CKD) 36 (>60 ml/min/1.73 sqM); Albumin 3.8 g/dL (3.5-5.0); Alkaline Phosphatase 103 U/L (38-126); Amylase 51 U/L (30-110); Anion Gap 8 mmol/L; Blood Urea Nitrogen 44 mg/dL (7-17); Calcium 9.9 mg/dL (8.4-10.2); Carbon Dioxide 30 mmol/L (22-30); Chloride 99 mmol/L (98-107); Glucose 121 mg/dL (74-99); Lipase 83 U/L (23-300); Non-African American GFR(CKD) 32 (>60 ml/min/1.73 sqM); Potassium 4.1 mmol/L (3.5-5.1); Sodium 137 mmol/L (137-145); Total Bilirubin 0.6 mg/dL (0.2-1.3); Total Protein 6.5 g/dL (6.3-8.2)
[2021-03-10 17:22] LABS: Prothrombin Time 10.8 sec (9.0-12.0)
[2021-03-10 17:45] LABS: Partial Thromboplastin Time 19.9 sec (22.0-30.0)
--- NOTE | 2021-03-10 18:29 | CT ---
EXAMINATION TYPE: CT abdomen pelvis wo con DATE OF EXAM: 03/10/2021 COMPARISON: December 24, 2020 HISTORY: Patient poor historian CT DLP: 1085.4 mGycm Automated exposure control for dose reduction was used. Images were obtained from the diaphragm to the floor the pelvis with no contrast. There is some patchy infiltrate and atelectasis at the lung bases. Heart is top normal in size. There is no pericardial effusion. There is no pleural effusion. Aorta is atheromatous. Stomach is intact. Spleen is intact. There are clips from cholecystectomy. Liver shows no focal defect. The bile ducts a re not dilated. There is bilateral hydronephrosis that is more severe on the right side. Right renal pelvis measures 7.5 cm unchanged. There is right-sided ureteral stent. I see no ureteral calculus. Right ureter is no t dilated. There is mild left-sided hydronephrosis. There is no retroperitoneal adenopathy. Urinary b ladder distends smoothly. There is no inguinal hernia. There is no free fluid in the pelvis. I see no mesenteric edema. There is no ascites or free air. There is no bowel obstruction. Lumbar spine is intact. Bony pelvis is intact. IMPRESSION: Bilateral hydronephrosis that is much more severe on the right side. There is right ureteral stent th at appears to be in good position but no change in the right side hydronephrosis compared to old exam before the stent. Stent malfunction is possible. No obstructing calculus seen. There is some mild infiltrate and atelectasis at the lung bases not significantly different than old exam.
[2021-03-10] MEDS ORDERED: NALOXONE 0.4 MG/ML 1 ML VIAL IV PRN (19:11)
[2021-03-10] MEDS ORDERED: ACETAMINOPHEN TAB 325 MG TAB PO PRN (19:11)
[2021-03-10] MEDS ORDERED: MORPHINE SULFATE 4 MG/ML SYRINGE IV PRN (19:11)
[2021-03-10] MEDS ORDERED: ONDANSETRON 4 MG/2 ML VIAL IVP PRN (19:11)
[2021-03-10] MEDS: SODIUM CHLORIDE 0.9% 1,000 ML IV SCH (20:05)
[2021-03-11] MEDS: SODIUM CHLORIDE 0.9% 1,000 ML IV SCH ×2 (09:06→22:31)
--- NOTE | 2021-03-11 10:11 | P.GSCN ---
History of Present Illness Consult date: 03/11/21 Reason for Consult: right hydronephrosis History of present illness: 75 yo female that presents to the ED with abdominal pain, nausea and vomiting and weakness. She has hx of right sided hydronephrosis S/P right sided ureteral stent placement on 12/26/[address] Lyn for narrowing at the UPJ, RP of the left side was WNL. She underwent a CT which showed stent in adequate location but there is still residual hydro. Denies any flank pain, dysuria or gross hematuria, fever or chills. Her creat on presentation is 1.59 from baseline of 1.0. 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, hypothyroidism, hypertension, hyperlipidemia, Parkinson's disease, degenerative arthritis, anxiety, depression History of Any Multi-Drug Resistant Organisms: None Reported Past Surgical History: Hysterectomy, Orthopedic Surgery Additional Past Surgical History / Comment(s): Hammer toe surgery, recent infection to toe Past Anesthesia/Blood Transfusion Reactions: No Reported Reaction Past Psychological History: Anxiety, Bipolar, Depression Smoking Status: Former smoker Past Alcohol Use History: None Reported Past Drug Use History: None Reported - Past Family History Father Family Medical History: No Reported History Medications and Allergies Home Medications Medication Instructions Recorded Confirmed Type Escitalopram Oxalate [Lexapro] 10 mg PO DAILY@0800 09/07/14 03/10/21 History Omeprazole [PriLOSEC] 20 mg PO BID@0800,1600 09/07/14 03/10/21 History Pravastatin Sodium [Pravachol] 80 mg PO HS@199909/07/14 03/10/21 History allopurinoL [Zyloprim] 100 mg PO BID@0800,1600 09/21/17 03/10/21 History Ergocalciferol (Vitamin D2) 50,000 unit PO Q14D 05/19/19 03/10/21 History [Drisdol (50,000 Iu)] Levothyroxine Sodium [Synthroid] 150 mcg PO DAILY@0800 05/19/19 03/10/21 History Pramipexole [Mirapex] 1 mg PO HS@199905/19/19 03/10/21 History calcitrioL [Rocaltrol] 0.25 mcg PO SUMOTUWETHFR 05/19/19 03/10/21 History Carbidopa-Levodopa 25-100 mg 1 tab PO TID@0800,1200,199912/24/20 03/10/21 History [Sinemet 25-100 mg] Carbidopa-Levodopa 25-100 mg 2 tab PO AC-SUPPER@159912/24/20 03/10/21 History [Sinemet 25-100 mg] Metoprolol Tartrate [Lopressor] 50 mg PO BID@0800,1600 12/24/20 03/10/21 History Potassium Chloride ER [K-Dur 20] 20 meq PO DAILY@119912/24/20 03/10/21 History Triamterene/Hydrochlorothiazid 1 tab PO DAILY@1200 12/24/20 03/10/21 History [Triamterene-Hctz 37.5-25 mg Tb] polyethylene glycoL 3350 [Miralax] 17 gm PO DAILY PRN #0 powd.pack 01/01/21 03/10/21 Rx Sennosides-Docusate Sodium 1 tab PO BID@1200,199901/24/21 03/10/21 History [Senokot-S] Acetaminophen Tab [Tylenol] 325 mg PO Q6H PRN 03/10/21 03/10/21 History Ascorbic Acid [Vitamin C] 1,000 mg PO DAILY@119903/10/21 03/10/21 History Loperamide [Imodium] 2 mg PO DAILY PRN 03/10/21 03/10/21 History Magnesium Oxide [Mag-Ox] 400 mg PO DAILY@119903/10/21 03/10/21 History Methyl Salicylate/Menthol 1 patch TOPICAL DAILY PRN 03/10/21 03/10/21 History [Salonpas Patch] amLODIPine [Norvasc] 10 mg PO DAILY@0800 03/10/21 03/10/21 History Allergies Allergy/AdvReac Type Severity Reaction Status Date / Time amiodarone [From Cordarone] Allergy Anaphylaxis Verified 03/10/21 21:13 cyclobenzaprine Allergy Rash/Hives Verified 03/10/21 21:13 [From Flexeril] Surgical - Exam Vital Signs Temp Pulse Resp BP Pulse Ox 98.1 F 80 17 150/71 98 03/10/21 16:16 03/10/21 16:16 03/10/21 16:16 03/10/21 16:16 03/10/21 16:16 - General well developed, well nourished, no distress, moderate pain - Eyes PERRL, normal ocular movement - ENT normal nares, normal mucosa - Respiratory normal expansion, normal respiratory effort - Abdomen NO CVA tenderness Abdomen: soft, tender (RUQ), no distended - Psychiatric oriented to time, oriented to person, oriented to place Results - Labs 03/10/21 16:58 03/10/21 16:58 Abnormal Lab Results - Last 24 Hours (Table) 03/10/21 03/10/21 03/10/21 Range/Units 16:58 16:58 16:58 WBC 11.0 H (3.8-10.6) k/uL RBC 3.41 L (3.80-5.40) m/uL Hgb 9.8 L (11.4-16.0) gm/dL Hct 29.1 L (34.0-46.0) % RDW 15.9 H (11.5-15.5) % Neutrophils # 9.6 H (1.3-7.7) k/uL Lymphocytes # 0.9 L (1.0-4.8) k/uL APTT 19.9 L (22.0-30.0) sec BUN (7-17) mg/dL Creatinine (0.52-1.04) mg/dL Glucose (74-99) mg/dL AST (14-36) U/L Urine Appearance Turbid H (Clear) Urine Protein 2+ H (Negative) Urine Ketones Trace H (Negative) Urine Blood Moderate H (Negative) Ur Leukocyte Esterase Large H (Negative) Urine RBC 56 H (0-5) /hpf Urine WBC >182 H (0-5) /hpf Urine WBC Clumps Many H (None) /hpf Ur Squamous Epith Cells 31 H (0-4) /hpf Amorphous Sediment Rare H (None) /hpf Urine Bacteria Few H (None) /hpf 03/10/21 Range/Units 16:58 WBC (3.8-10.6) k/uL RBC (3.80-5.40) m/uL Hgb (11.4-16.0) gm/dL Hct (34.0-46.0) % RDW (11.5-15.5) % Neutrophils # (1.3-7.7) k/uL Lymphocytes # (1.0-4.8) k/uL APTT (22.0-30.0) sec BUN 44 H (7-17) mg/dL Creatinine 1.59 H (0.52-1.04) mg/dL Glucose 121 H (74-99) mg/dL AST 12 L (14-36) U/L Urine Appearance (Clear) Urine Protein (Negative) Urine Ketones (Negative) Urine Blood (Negative) Ur Leukocyte Esterase (Negative) Urine RBC (0-5) /hpf Urine WBC (0-5) /hpf Urine WBC Clumps (None) /hpf Ur Squamous Epith Cells (0-4) /hpf Amorphous Sediment (None) /hpf Urine Bacteria (None) /hpf Microbiology - Last 24 Hours (Table) 03/10/21 16:58 Urine Culture - Preliminary Urine,Catheterized Diabetes panel 03/10/21 Range/Units 16:58 Sodium 137 (137-145) mmol/L Potassium 4.1 (3.5-5.1) mmol/L Chloride 99 (98-107) mmol/L Carbon Dioxide 30 (22-30) mmol/L BUN 44 H (7-17) mg/dL Creatinine 1.59 H (0.52-1.04) mg/dL Glucose 121 H (74-99) mg/dL Calcium 9.9 (8.4-10.2) mg/dL AST 12 L (14-36) U/L ALT <6 (4-34) U/L Alkaline Phosphatase 103 (38-126) U/L Total Protein 6.5 (6.3-8.2) g/dL Albumin 3.8 (3.5-5.0) g/dL Calcium panel 03/10/21 Range/Units 16:58 Calcium 9.9 (8.4-10.2) mg/dL Albumin 3.8 (3.5-5.0) g/dL Pituitary panel 03/10/21 Range/Units 16:58 Sodium 137 (137-145) mmol/L Potassium 4.1 (3.5-5.1) mmol/L Chloride 99 (98-107) mmol/L Carbon Dioxide 30 (22-30) mmol/L BUN 44 H (7-17) mg/dL Creatinine 1.59 H (0.52-1.04) mg/dL Glucose 121 H (74-99) mg/dL Calcium 9.9 (8.4-10.2) mg/dL Adrenal panel 03/10/21 Range/Units 16:58 Sodium 137 (137-145) mmol/L Potassium 4.1 (3.5-5.1) mmol/L Chloride 99 (98-107) mmol/L Carbon Dioxide 30 (22-30) mmol/L BUN 44 H (7-17) mg/dL Creatinine 1.59 H (0.52-1.04) mg/dL Glucose 121 H (74-99) mg/dL Calcium 9.9 (8.4-10.2) mg/dL Total Bilirubin 0.6 (0.2-1.3) mg/dL AST 12 L (14-36) U/L ALT <6 (4-34) U/L Alkaline Phosphatase 103 (38-126) U/L Total Protein 6.5 (6.3-8.2) g/dL Albumin 3.8 (3.5-5.0) g/dL Assessment and Plan Assessment: 75 yo female that presents to the ED with abdominal pain, nausea and vomiting and weakness. She has hx of right sided hydronephrosis S/P right sided ureteral stent placement on 12/26/[address] Lyn for narrowing at the UPJ, at time of d ischarge the plan was to perform outpatient URS to evaluate the UPJ. On presentation is 1.59 from baseline of 1.0. Reviewed CT stent is in good position, hydro, could be from chronically dilated renal pelvis. Her FABIAN, could be secondary to her dehydration from N/V. No need stent change at this time, at this time continue IVF, and repeat BMP after hydration. She will eventually need to be set up for outpatient diagnostic Ureteroscopy, But will need negative urine culture prior to any surgical intervention.
[2021-03-11] MEDS: METOPROLOL TARTRATE 50 MG TAB PO SCH ×2 (10:12→17:53)
[2021-03-11] MEDS: PANTOPRAZOLE 40 MG TABLET PO SCH (10:12)
[2021-03-11] MEDS: LEVOTHYROXINE 75 MCG TAB PO SCH (10:12)
[2021-03-11 11:45] LABS: African American GFR (CKD) 40 (>60 ml/min/1.73 sqM); Anion Gap 10 mmol/L; Blood Urea Nitrogen 46 mg/dL (7-17); Calcium 9.7 mg/dL (8.4-10.2); Carbon Dioxide 28 mmol/L (22-30); Chloride 100 mmol/L (98-107); Glucose 140 mg/dL (74-99); Magnesium 1.9 mg/dL (1.6-2.3); Non-African American GFR(CKD) 35 (>60 ml/min/1.73 sqM); Sodium 138 mmol/L (137-145)
[2021-03-11] MEDS: MAGNESIUM OXIDE 400 MG TAB PO SCH (13:22)
[2021-03-11] MEDS: CARBIDOPA-LEVODOPA 25-100 MG 1 EACH TAB PO SCH ×3 (13:22→22:28)
[2021-03-11] MEDS ORDERED: LACTULOSE 200 GM/300 ML (FROM 1/2 GAL JUG) RECTAL ONE (13:32)
--- NOTE | 2021-03-11 16:23 | P.HPIM ---
History of Present Illness H&P Date: 03/11/21 Chief Complaint: Abdominal pain This is a 75-year-old female with past medical history of UTI Strep agalactiae - (group b) with Pyelonephritis, severe right hydronephrosis with right ureteral stent insertion to 12/26/20,CVA with residual left-sided weakness, expressive aphasia/TIA, hyperlipidemia, hypertension, chronic renal failure, hypothyroidism, obesity, anxiety, bipolar, depression, former nicotine dependence presented to the ER via EMS with complaints of nausea, vomiting, constipation, diffuse abdominal pain and weakness 2 weeks. Denies any fever or chills, cough, congestion, shortness of breath or chest pain. EKG reporting normal sinus rhythm, left ventricular hypertrophy, possible lateral infarct, age undetermined, similar to prior EKG as per ER review.Reports no bowel movement in 2 days .Vague historian.VSS. CT of abdomen and pelvis reporting bilateral hydronephrosis more severe in the right side, right ureteral stent that appears to be in good position but no change in the right-sided hydronephrosis compared to prior exam before the stent possible stent malfunction with no obstructing calculus. Afebrile, and WBC 11, hemoglobin 9.8 platelets 224, chemistry panel unremarkable with the exception's BUN 44, creatinine 1.59, baseline 1, glucose 121, total bili and LFTs within normal limits with the exception of AST minimally low at 12. Lactic acid 0.9. UA reported few bacteria, many WBC clumps, greater than 182 WBCs large leukocytes negative for bilirubin, moderate blood, trace ketones 2+ protein. Influenza type A and B, Sars/Covid not dete cted. Received a liter fluid bolus, morphine for pain in the ER. Urology consulted. Urine culture in progress. Review of Systems ROS Statement: Those systems with pertinent positive or pertinent negative responses have been documented in the HPI. ROS Other: All systems not noted in ROS Statement are negative. 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, hypothyroidism, hypertension, hyperlipidemia, Parkinson's disease, degenerative arthritis, anxiety, depression History of Any Multi-Drug Resistant Organisms: None Reported Past Surgical History: Hysterectomy, Orthopedic Surgery Additional Past Surgical History / Comment(s): Hammer toe surgery, recent infection to toe Past Anesthesia/Blood Transfusion Reactions: No Reported Reaction Past Psychological History: Anxiety, Bipolar, Depression Smoking Status: Former smoker Past Alcohol Use History: None Reported Past Drug Use History: None Reported - Past Family History Father Family Medical History: No Reported History Medications and Allergies Home Medications Medication Instructions Recorded Confirmed Type Escitalopram Oxalate [Lexapro] 10 mg PO DAILY@0800 09/07/14 03/10/21 History Omeprazole [PriLOSEC] 20 mg PO BID@0800,1600 09/07/14 03/10/21 History Pravastatin Sodium [Pravachol] 80 mg PO HS@199909/07/14 03/10/21 History allopurinoL [Zyloprim] 100 mg PO BID@0800,1600 09/21/17 03/10/21 History Ergocalciferol (Vitamin D2) 50,000 unit PO Q14D 05/19/19 03/10/21 History [Drisdol (50,000 Iu)] Levothyroxine Sodium [Synthroid] 150 mcg PO DAILY@0800 05/19/19 03/10/21 History Pramipexole [Mirapex] 1 mg PO HS@199905/19/19 03/10/21 History calcitrioL [Rocaltrol] 0.25 mcg PO SUMOTUWETHFR 05/19/19 03/10/21 History Carbidopa-Levodopa 25-100 mg 1 tab PO TID@0800,1200,199912/24/20 03/10/21 History [Sinemet 25-100 mg] Carbidopa-Levodopa 25-100 mg 2 tab PO AC-SUPPER@159912/24/20 03/10/21 History [Sinemet 25-100 mg] Metoprolol Tartrate [Lopressor] 50 mg PO BID@0800,1600 12/24/20 03/10/21 History Potassium Chloride ER [K-Dur 20] 20 meq PO DAILY@1200 12/24/20 03/10/21 History Triamterene/Hydrochlorothiazid 1 tab PO DAILY@1200 12/24/20 03/10/21 History [Triamterene-Hctz 37.5-25 mg Tb] polyethylene glycoL 3350 [Miralax] 17 gm PO DAILY PRN #0 powd.pack 01/01/21 0 03/10/21 Rx Sennosides-Docusate Sodium 1 tab PO BID@1200,199901/24/21 03/10/21 History [Senokot-S] Acetaminophen Tab [Tylenol] 325 mg PO Q6H PRN 03/10/21 03/10/21 History Ascorbic Acid [Vitamin C] 1,000 mg PO DAILY@1200 03/10/21 03/10/21 History Loperamide [Imodium] 2 mg PO DAILY PRN 03/10/21 03/10/21 History Magnesium Oxide [Mag-Ox] 400 mg PO DAILY@1200 03/10/21 03/10/21 History Methyl Salicylate/Menthol 1 patch TOPICAL DAILY PRN 03/10/21 03/10/21 History [Salonpas Patch] amLODIPine [Norvasc] 10 mg PO DAILY@0800 03/10/21 03/10/21 History Allergies Allergy/AdvReac Type Severity Reaction Status Date / Time amiodarone [From Cordarone] Allergy Anaphylaxis Verified 03/10/21 21:13 cyclobenzaprine Allergy Rash/Hives Verified 03/10/21 21:13 [From Flexeril] Physical Exam Vitals: Vital Signs Temp Pulse Pulse Resp BP BP Pulse Ox 03/11/21 08:00 97.8 F 75 16 136/61 97 03/11/21 05:00 97.8 F 84 18 103/61 97 03/11/21 03:00 98 F 88 18 128/78 97 03/11/21 00:00 97.8 F 90 18 126/74 90 L 03/10/21 18:59 76 18 112/60 93 L 03/10/21 16:16 98.1 F 80 17 150/71 98 - Exam General: Sitting up in bed, awake, alert and oriented times 3, nauseated, vomiting bile liquid,expressive aphasia HEENT: PERRL. EOMI. No pharyngeal erythema or exudate. Neck: Supple, no JVD, No adenopathy. Cardiac: Heart regular in rate and rhythm. No S3. No S4. No clicks, rubs. No murmur. Lungs: Clear breath sounds, no rhonchi, bilateral bases diminished. Abdomen: Soft, nondistended, mild diffuse tenderness, no guarding, no rigidity .No mass palpable, No organomegaly. Hypoactive bowel sounds Extremities: trace edema no cyanosis no claudication normal pulses. Skin: Warm and dry, flaky, yeast rash in groin folds and under left breast Neurologic: [No lateralizing deficits. CN II - XII grossly intact.Speech consistent with expressive aphasia, chronic residual left-sided weakness. ] Lymphatic: [No adenopathy.] Results CBC & Chem 7: 03/10/21 16:58 03/11/21 10:37 Labs: Abnormal Lab Results - Last 24 Hours (Table) 03/10/21 03/10/21 03/10/21 Range/Units 16:58 16:58 16:58 WBC 11.0 H (3.8-10.6) k/uL RBC 3.41 L (3.80-5.40) m/uL Hgb 9.8 L (11.4-16.0) gm/dL Hct 29.1 L (34.0-46.0) % RDW 15.9 H (11.5-15.5) % Neutrophils # 9.6 H (1.3-7.7) k/uL Lymphocytes # 0.9 L (1.0-4.8) k/uL APTT 19.9 L (22.0-30.0) sec BUN (7-17) mg/dL Creatinine (0.52-1.04) mg/dL Glucose (74-99) mg/dL AST (14-36) U/L Urine Appearance Turbid H (Clear) Urine Protein 2+ H (Negative) Urine Ketones Trace H (Negative) Urine Blood Moderate H (Negative) Ur Leukocyte Esterase Large H (Negative) Urine RBC 56 H (0-5) /hpf Urine WBC >182 H (0-5) /hpf Urine WBC Clumps Many H (None) /hpf Ur Squamous Epith Cells 31 H (0-4) /hpf Amorphous Sediment Rare H (None) /hpf Urine Bacteria Few H (None) /hpf 03/10/21 03/11/21 Range/Units 16:58 10:37 WBC (3.8-10.6) k/uL RBC (3.80-5.40) m/uL Hgb (11.4-16.0) gm/dL Hct (34.0-46.0) % RDW (11.5-15.5) % Neutrophils # (1.3-7.7) k/uL Lymphocytes # (1.0-4.8) k/uL APTT (22.0-30.0) sec BUN 44 H 46 H (7-17) mg/dL Creatinine 1.59 H 1.47 H (0.52-1.04) mg/dL Glucose 121 H 140 H (74-99) mg/dL AST 12 L (14-36) U/L Urine Appearance (Clear) Urine Protein (Negative) Urine Ketones (Negative) Urine Blood (Negative) Ur Leukocyte Esterase (Negative) Urine RBC (0-5) /hpf Urine WBC (0-5) /hpf Urine WBC Clumps (None) /hpf Ur Squamous Epith Cells (0-4) /hpf Amorphous Sediment (None) /hpf Urine Bacteria (None) /hpf Microbiology - Last 24 Hours (Table) 03/10/21 16:58 Urine Culture - Preliminary Urine,Catheterized Assessment and Plan Assessment: Abdominal pain with nausea ,vomiting Bilateral hydronephrosis more severe in the right side, right ureteral stent appears to be in good position but no change in the right-sided hydronephrosis compared to prior exam before the stent, possible stent malfunction with no obstructing calculus reported per ct. Acute on chronic renal failure secondary to dehydration Dehydration secondary to decreased oral intake History of UTI Strep agalactiae - (group b) with Pyelonephritis, severe right hydronephrosis, cystoscopy with right ureteral stent insertion 01/06/21, no tumors or foreign body seen, evidence of cystitis reported. 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 Hypothyroidism Bipolar disorder Obesity, BMI 32.6 Plan: Continue on current medication regime monitoring and symptomatic treatment. Maintain IV fluid hydration and IV antibiotics. Urology consult in place, recommendations pending. Complains of inability to sleep, melatonin added to med regime. Zofran ordered for nausea/vomiting. Reports no bowel movement in 2 days, rectal lactulose ordered 1 dose. The impression and plan of care has been dictated as directed. : I performed a history and examination of this patient, discussed the same with the dictator. I agree with the dictator's note ,documented as a scribe. Any additional findings or plans will be noted.
[2021-03-11] MEDS: NYSTATIN 100,000 UNIT/GM POWD 15 GM TOPICAL SCH (18:25)
[2021-03-11] MEDS: MELATONIN 5 MG TABLET PO SCH (22:28)
[2021-03-11] MEDS: PRAMIPEXOLE 1 MG TAB PO SCH (22:28)
[2021-03-12] MEDS: NYSTATIN 100,000 UNIT/GM POWD 15 GM TOPICAL SCH ×4 (05:38→21:41)
[2021-03-12] MEDS: MAGNESIUM OXIDE 400 MG TAB PO SCH (08:26)
[2021-03-12] MEDS: CARBIDOPA-LEVODOPA 25-100 MG 1 EACH TAB PO SCH ×4 (08:26→21:37)
[2021-03-12] MEDS: PANTOPRAZOLE 40 MG TABLET PO SCH (08:26)
[2021-03-12] MEDS: METOPROLOL TARTRATE 50 MG TAB PO SCH ×2 (08:26→16:26)
[2021-03-12] MEDS: ESCITALOPRAM 10 MG TAB PO SCH (08:26)
[2021-03-12] MEDS: LEVOTHYROXINE 75 MCG TAB PO SCH (08:26)
[2021-03-12] MEDS ORDERED: ERGOCALCIFEROL 1,250 MCG (50,000 IU) CAPSULE PO SCH (12:00)
[2021-03-12 13:14] VITALS: BMI 32.0
--- NOTE | 2021-03-12 14:50 | P.PN ---
Subjective Progress Note Date: 03/12/21 This is a 75-year-old female with past medical history of UTI Strep agalactiae - (group b) with Pyelonephritis, severe right hydronephrosis with right ureteral stent insertion to 12/26/20,CVA with residual left-sided weakness, expressive aphasia/TIA, hyperlipidemia, hypertension, chronic renal failure, hypo thyroidism, obesity, anxiety, bipolar, depression, former nicotine dependence presented to the ER via EMS with complaints of nausea, vomiting, constipation, diffuse abdominal pain and weakness 2 weeks. Denies any fever or chills, cough, congestion, shortness of breath or chest pain. EKG reporting normal sinus rhythm, left ventricular hypertrophy, possible lateral infarct, age undetermined, similar to prior EKG as per ER review.Reports no bowel movement in 2 days .Vague historian.VSS. CT of abdomen and pelvis reporting bilateral hydronephrosis more severe in the right side, right ureteral stent that appears to be in good position but no change in the right-sided hydronephrosis compared to prior exam before the stent possible stent malfunction with no obstructing calculus. Afebrile, and WBC 11, hemoglobin 9.8 platelets 224, chemistry panel unremarkable with the exception's BUN 44, creatinine 1.59, baseline 1, glucose 121, total bili and LFTs within normal limits with the exception of AST minimally low at 12. Lactic acid 0.9. UA reported few bacteria, many WBC clumps, greater than 182 WBCs large leukocytes negative for bilirubin, moderate blood, trace ketones 2+ protein. Influenza type A and B, Sars/Covid not detected. Received a liter fluid bolus, morphine for pain in the ER. Urology consulted. Urine culture in progress. 03/12/2021 sitting up in bed, diet intake poor ,reporting no nausea or vomiting. Positive bowel movement last night-reports diarrhea. Complains of right lower quadrant abdominal pain. Maintained on Rocephin, urine culture reporting gram-negative bacilli. Afebrile. Labs pending. Objective - Vital Signs Vital signs: Vital Signs Temp 97.9 F 03/12/21 12:15 Pulse 60 03/12/21 12:15 Resp 18 03/12/21 12:15 BP 113/61 03/12/21 12:15 Pulse Ox 98 03/12/21 12:15 Intake & Output 03/11/21 03/12/21 03/12/21 18:59 06:59 18:59 Intake Total 1400 590 Balance 1400 590 Weight 79.379 kg 79.379 kg Intake: Intake, IV Titration 900 Amount Sodium Chloride 0.9% 1, 900 000 ml @ 75 mls/hr IV . [id number] [facility] Rx#:[id number] Oral 500 590 Other: Voiding Method Bedpan Bedpan Bedpan Diaper Diaper Diaper Incontinent Incontinent Incontinent # Voids 2 3 3 # Bowel Movements 1 - Exam - Exam General: Sitting up in bed, awake, alert and oriented times 3,expressive aphasia HEENT: PERRL. EOMI. No pharyngeal erythema or exudate. Neck: Supple, no JVD, No adenopathy. Cardiac: Heart regular in rate and rhythm. No S3. No S4. No clicks, rubs. No murmur. Lungs: Clear breath sounds, no rhonchi, bilateral bases diminished. Abdomen: Soft, nondistended, mild diffuse tenderness, no guarding, no rigidity .No mass palpable, No organomegaly. Hypoactive bowel sounds Extremities: trace edema no cyanosis no claudication normal pulses. Skin: Warm and dry, flaky, yeast rash in groin folds and excoriated under breasts Neurologic: [No lateralizing deficits. CN II - XII grossly intact.Speech consistent with expressive aphasia, chronic residual left-sided weakness. ] Lymphatic: [No adenopathy.] - Labs CBC & Chem 7: 03/10/21 16:58 03/11/21 10:37 Labs: Microbiology - Last 24 Hours (Table) 03/10/21 16:58 Urine Culture - Preliminary Urine,Catheterized Gram Neg Bacilli Assessment and Plan Assessment: Abdominal pain with nausea ,vomiting Acute UTI with gram-negative bacilli Bilateral hydronephrosis more severe in the right side, right ureteral stent appears to be in good position but no change in the right-sided hydronephrosis compared to prior exam before the stent, possible stent malfunction with no obstructing calculus reported per ct. Acute on chronic renal failure secondary to dehydration Dehydration secondary to decreased oral intake History of UTI Strep agalactiae - (group b) with Pyelonephritis, severe right hydronephrosis, cystoscopy with right ureteral stent insertion 01/06/21, no tumors or foreign body seen, evidence of cystitis reported. 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 Hypothyroidism Bipolar disorder Obesity, BMI 32.6 Plan: Continue on current medication regime monitoring and symptomatic treatment. Labs pending. Continue IV fluid hydration and IV antibiotics. Urology recommendations noted. Encourage oral intake. Close monitoring of renal function. The impression and plan of care has been dictated as directed. : I performed a history and examination of this patient, discussed the same with the dictator. I agree with the dictator's note ,documented as a scribe. Any additional findings or plans will be noted.
--- NOTE | 2021-03-12 15:14 | CDI ---
Documentation Clarification Form Date: 03/12/2021 02:52:54 PM From: Nemo Jones RN CCDS Admit Date: 03/10/2021 07:24:00 PM Patient Name: Leena Carmona Visit Number: [id number] Discharge Date: ATTENTION: The Clinical Documentation Specialists (CDI) and [facility] Coding Staff appreciate your assistance in clarifying documentation. Please respond to the clarification below the line at the bottom and electronically sign. The CDI & [facility] Coding staff will review the response and follow-up if needed. Please note: Queries are made part of the Legal Health Record. If you have any questions, please contact the author of this message via ITS. Dr. Cameron Nelson, Unspecified CKD is documented in the H&P 03/11. Additional clarification regarding the stage of CKD is requested. History/Risk Factors: 75-year-old female presents to the ED via EMS for nausea, vomiting, constipation, diffuse abdominal pain for two weeks. Medical history: Renal disease and Bilateral hydronephrosis is right ureteral stent placement. Patients Historical 07/16/20 BUN 28 /CR 1.4 /GFR 36.7 12/24/20 BUN 36 /CR 1.86/GFR 26 01/28/21 BUN 18 /CR 0.9/GFR 62.5 Clinical Indicators: Current 03/10: BUN 44 /CR 1.59 /GFR 36 CT ABD PELVIS 03/10: Bilateral hydronephrosis that is much more severe on the right side. There is right ureteral stent that appears to be in good position but no change in the right side hydronephrosis compared to old exam before the stent. Urology Consult 03/10: Reviewed CT stent is in good position, hydro, could be from chronically dilated renal pelvis. Treatment: 03/10 0.9ns 500cc/bolus x1; 03/11 0.9ns 75cc/hr through current date. Consult: 03/10 Urology see above Please clarify the stage of the CKD, if known: [ ] CKD Stage 2 (GFR 60-89) [ ] CKD Stage 3 (GFR 30-59) [ ] CKD Stage 3a (GFR 45-59) [ ] CKD Stage 3b (GFR 30-44) [ ] CKD Stage 4 (GFR 15-29) [ X] Other, please specify patient had AKD, no mention of CKD, this is an error [ ] Unable to determine, (Template Last revised: December 2020) MTDD
[2021-03-12] MEDS: SODIUM CHLORIDE 0.9% 1,000 ML IV SCH (16:12)
[2021-03-12 16:27] LABS: African American GFR (CKD) 45 (>60 ml/min/1.73 sqM); Anion Gap 4 mmol/L; Blood Urea Nitrogen 34 mg/dL (7-17); Calcium 9.5 mg/dL (8.4-10.2); Carbon Dioxide 30 mmol/L (22-30); Chloride 101 mmol/L (98-107); Glucose 124 mg/dL (74-99); Non-African American GFR(CKD) 39 (>60 ml/min/1.73 sqM); Potassium 3.6 mmol/L (3.5-5.1); Sodium 135 mmol/L (137-145)
--- NOTE | 2021-03-12 16:48 | P.PN ---
Subjective Progress Note Date: 03/12/21 No acute overnight events, indicates that flank pain, and nausea is improving. Her creatinine is down to 1.34 from 1.59, baseline is 1-1.1. Urine culture showed gram-negative bacilli Objective - Vital Signs Vital signs: Vital Signs Temp 97.9 F 03/12/21 12:15 Pulse 65 03/12/21 16:25 Resp 18 03/12/21 12:15 BP 112/63 03/12/21 16:25 Pulse Ox 98 03/12/21 12:15 Intake & Output 03/11/21 03/12/21 03/12/21 18:59 06:59 18:59 Intake Total 1400 590 Balance 1400 590 Weight 79.379 kg 79.379 kg Intake: Intake, IV Titration 900 Amount Sodium Chloride 0.9% 1, 900 000 ml @ 75 mls/hr IV . [id number] [facility] Rx#:[id number] Oral 500 590 Other: Voiding Method Bedpan Bedpan Bedpan Diaper Diaper Diaper Incontinent Incontinent Incontinent # Voids 2 3 3 # Bowel Movements 1 - Constitutional General appearance: Present: no acute distress - Gastrointestinal General gastrointestinal: Present: soft. Absent: distended, tenderness - Labs CBC & Chem 7: 03/10/21 16:58 03/12/21 15:40 Labs: Abnormal Lab Results - Last 24 Hours (Table) 03/12/21 Range/Units 15:40 Sodium 135 L (137-145) mmol/L BUN 34 H (7-17) mg/dL Creatinine 1.34 H (0.52-1.04) mg/dL Glucose 124 H (74-99) mg/dL Microbiology - Last 24 Hours (Table) 03/10/21 16:58 Urine Culture - Preliminary Urine,Catheterized Gram Neg Bacilli Assessment and Plan Assessment: 75 yo female that presents to the ED with abdominal pain, nausea and vomiting and weakness. She has hx of right sided hydronephrosis S/P right sided ureteral stent placement on 12/26/[address] Lyn for narrowing at the UPJ, at time of discharge the plan was to perform outpatient URS to evaluate the UPJ. On presentation is 1.59 from baseline of 1.0. Reviewed CT stent is in good position, hydro, could be from chronically dilated renal pelvis. Her FABIAN, could be secondary to her dehydration from N/V. No need stent change at this time, creatinine down to 1.34 Plan: -Follow up on final urine culture, we'll need a minimum of 7 days of antibiotic based on culture susceptibility -Okay for discharge from urology standpoint once culture is finalized, she will need outpatient right-sided diagnostic ureteroscopy, this will be arranged by Dr. Lyn
[2021-03-12] MEDS: ONDANSETRON 4 MG/2 ML VIAL IVP PRN (20:31)
[2021-03-12] MEDS: MELATONIN 5 MG TABLET PO SCH (21:37)
[2021-03-12] MEDS: PRAMIPEXOLE 1 MG TAB PO SCH (21:37)
[2021-03-13] MEDS: ONDANSETRON 4 MG/2 ML VIAL IVP PRN ×3 (09:32→22:41)
[2021-03-13] MEDS: METOPROLOL TARTRATE 50 MG TAB PO SCH ×2 (09:33→15:59)
[2021-03-13] MEDS: LEVOTHYROXINE 75 MCG TAB PO SCH (09:33)
[2021-03-13] MEDS: PANTOPRAZOLE 40 MG TABLET PO SCH (09:33)
[2021-03-13] MEDS: CARBIDOPA-LEVODOPA 25-100 MG 1 EACH TAB PO SCH ×4 (09:33→21:15)
[2021-03-13] MEDS: ESCITALOPRAM 10 MG TAB PO SCH (09:33)
[2021-03-13] MEDS: NYSTATIN 100,000 UNIT/GM POWD 15 GM TOPICAL SCH ×2 (09:34→15:59)
[2021-03-13] MEDS: SODIUM CHLORIDE 0.9% 1,000 ML IV SCH ×2 (09:35→12:08)
[2021-03-13 09:38] LABS: Basophils % (A) 0 %; Eosinophils # (A) 0.1 k/uL (0-0.7); Eosinophils % (A) 2 %; Hypochromasia Slight; Lymphocytes # (A) 0.6 k/uL (1.0-4.8); Lymphocytes % (A) 8 %; MCV 85.4 fL (80.0-100.0); Mean Platelet Volume 9.4; Monocytes # (A) 0.4 k/uL (0-1.0); Monocytes % (A) 5 %; Neutrophils # (A) 6.4 k/uL (1.3-7.7); Neutrophils % (A) 85 %; Platelet Count 168 k/uL (150-450); RBC 2.07 m/uL (3.80-5.40); RDW 15.9 % (11.5-15.5); WBC 7.5 k/uL (3.8-10.6)
[2021-03-13 09:52] LABS: HCT 17.7 % (34.0-46.0)
--- NOTE | 2021-03-13 10:17 | P.PN ---
Subjective This is a 75-year-old female with past medical history of UTI Strep agalactiae - (group b) with Pyelonephritis, severe right hydronephrosis with right ureteral stent insertion to 12/26/20,CVA with residual left-sided weakness, expressive aphasia/TIA, hyperlipidemia, hypertension, chronic renal failure, hypothyroidism, obesity, anxiety, bipolar, depression, former nicotine dependence presented to the ER via EMS with complaints of nausea, vomiting, constipation, diffuse abdominal pain and weakness 2 weeks. Denies any fever or chills, cough, congestion, shortness of breath or chest pain. EKG reporting normal sinus rhythm, left ventricular hypertrophy, possible lateral infarct, age undetermined, similar to prior EKG as per ER review.Reports no bowel movement in 2 days .Vague historian.VSS. CT of abdomen and pelvis reporting bilateral hyd ronephrosis more severe in the right side, right ureteral stent that appears to be in good position but no change in the right-sided hydronephrosis compared to prior exam before the stent possible stent malfunction with no obstructing calculus. Afebrile, and WBC 11, hemoglobin 9.8 platelets 224, chemistry panel unremarkable with the exception's BUN 44, creatinine 1.59, baseline 1, glucose 121, total bili and LFTs within normal limits with the exception of AST minimally low at 12. Lactic acid 0.9. UA reported few bacteria, many WBC clumps, greater than 182 WBCs large leukocytes negative for bilirubin, moderate blood, trace ketones 2+ protein. Influenza type A and B, Sars/Covid not detected. Received a liter fluid bolus, morphine for pain in the ER. Urology consulted. Urine culture in progress. 03/12/2021 sitting up in bed, diet intake poor ,reporting no nausea or vomiting. Positive bowel movement last night-reports diarrhea. Complains of right lower quadrant abdominal pain. Maintained on Rocephin, urine culture reporting gram- negative bacilli. Afebrile. Labs pending. 03/13/2021: patient is c/o ongoing RLQ pain. She reports nausea and emesis x 3 overnight. Urology says it cleared her for discharge for outpatient follow-up on her stent. She denies any current chest pains pressures or shortness of breath. She indicates no bowel movement yesterday or today yet. Vital signs remained stable. Patient remains afebrile. She continues to need O2. Labs today showed a significant hemoglobin drop with no evidence of any bleeding. Hemoglobin was 9.8 on March 10, currently reported as 6.0. Stat repeat is pending. Chemistries show steady improvement in her GFR from originally 32 on admission 39 yesterday. Repeat for today is pending. Objective - Vital Signs Vital signs: Vital Signs Temp 98.9 F 03/13/21 07:44 Pulse 69 03/13/21 07:44 Resp 16 03/13/21 07:44 BP 110/65 03/13/21 07:44 Pulse Ox 97 03/13/21 07:44 Intake & Output 03/12/21 03/13/21 03/13/21 18:59 06:59 18:59 Intake Total 1600 Balance 1600 Weight 79.379 kg Intake: Intake, IV Titration 900 Amount Sodium Chloride 0.9% 1, 900 000 ml @ 75 mls/hr IV . [id number] [facility] Rx#:[id number] Oral 700 Other: Voiding Method Bedpan Bedpan Diaper Diaper Incontinent Incontinent # Voids 3 3 - Exam General: Sitting up in bed, awake, alert and oriented times 3,expressive aphasia Neck: Supple, no JVD, No adenopathy. Cardiac: Heart regular in rate and rhythm. No S3. No S4. No clicks, rubs. No murmur. Lungs: Clear breath sounds, no rhonchi, bilateral bases diminished. Abdomen: Soft, nondistended, mild diffuse tenderness, no guarding, no rigidity .No mass palpable, No organomegaly. Hypoactive bowel sounds Extremities: trace edema no cyanosis no claudication normal pulses. Skin: Warm and dry, flaky, yeast rash in groin folds and excoriated under breasts Neurologic: [No lateralizing deficits. CN II - XII grossly intact.Speech consistent with expressive aphasia, chronic residual left-sided weakness. ] Lymphatic: [No adenopathy.] - Labs CBC & Chem 7: 03/13/21 08:12 03/12/21 15:40 Labs: Abnormal Lab Results - Last 24 Hours (Table) 03/12/21 03/13/21 Range/Units 15:40 08:12 RBC 2.07 L (3.80-5.40) m/uL Hgb 6.0 L* D (11.4-16.0) gm/dL Hct 17.7 L* (34.0-46.0) % RDW 15.9 H (11.5-15.5) % Lymphocytes # 0.6 L (1.0-4.8) k/uL Sodium 135 L (137-145) mmol/L BUN 34 H (7-17) mg/dL Creatinine 1.34 H (0.52-1.04) mg/dL Glucose 124 H (74-99) mg/dL Microbiology - Last 24 Hours (Table) 03/10/21 16:58 Urine Culture - Final Urine,Catheterized Enterobacter aerogenes Assessment and Plan (1) UTI (lower urinary tract infection) Current Visit: No Status: Acute Code(s): N39.0 - URINARY TRACT INFECTION, SITE NOT SPECIFIED SNOMED Code(s): 9166844 (2) Abdominal pain Current Visit: Yes Status: Acute Code(s): R10.9 - UNSPECIFIED ABDOMINAL PAIN SNOMED Code(s): 90721506 (3) Nausea and vomiting Current Visit: Yes Status: Acute Code(s): R11.2 - NAUSEA WITH VOMITING, UNSPECIFIED SNOMED Code(s): 73030682 (4) Acute pyelonephritis Current Visit: No Status: Acute Code(s): N10 - ACUTE PYELONEPHRITIS SNOMED Code(s): 58585731 (5) Anxiety and depression Current Visit: No Status: Acute Code(s): F41.9 - ANXIETY DISORDER, UNSPECIFIED; F32.9 - MAJOR DEPRESSIVE DISORDER, SINGLE EPISODE, UNSPECIFIED SNOMED Code(s): 694564551 (6) Bipolar 1 disorder Current Visit: No Status: Acute Code(s): F31.9 - BIPOLAR DISORDER, UNSPECIFIED SNOMED Code(s): 659182288 (7) Chronic anemia Current Visit: No Status: Acute Code(s): D64.9 - ANEMIA, UNSPECIFIED SNOMED Code(s): 098183375 (8) Essential (primary) hypertension Current Visit: No Status: Acute Code(s): I10 - ESSENTIAL (PRIMARY) HYPERTENSION SNOMED Code(s): 40204758 (9) History of CVA (cerebrovascular accident) Current Visit: No Status: Acute Code(s): Z86.73 - PRSNL HX OF TIA (TIA), AND CEREB INFRC W/O RESID DEFICITS SNOMED Code(s): 482002061 (10) Parkinson disease Current Visit: No Status: Acute Code(s): G20 - PARKINSON'S DISEASE SNOMED Code(s): 19416970 Plan: Stat repeat CBC and reticulocyte count. Hemoccult stools. Monitor urine output for any bleeding. She remains on normal saline 75 mL an hour, so dilution is a possibility, as she did have some mild dehydration on admission. Change IV fluids to KVO We'll treat her nausea with Zofran. Continue Rocephin for antibiotic coverage at this time. Watch continue her other home medications. Transition the morphine over to oral pain medications. I will reevaluate in the next 24 hours.
[2021-03-13 10:37] LABS: African American GFR (CKD) 57 (>60 ml/min/1.73 sqM); Anion Gap 6 mmol/L; Blood Urea Nitrogen 27 mg/dL (7-17); Calcium 9.2 mg/dL (8.4-10.2); Carbon Dioxide 30 mmol/L (22-30); Chloride 101 mmol/L (98-107); Glucose 105 mg/dL (74-99); Non-African American GFR(CKD) 49 (>60 ml/min/1.73 sqM); Potassium 3.2 mmol/L (3.5-5.1); Sodium 137 mmol/L (137-145)
--- NOTE | 2021-03-13 10:40 | P.PN ---
Subjective Progress Note Date: 03/13/21 No acute overnight events, indicates that flank pain, and nausea is improving. Her creatinine is down to 1.34 from 1.59, baseline is 1-1.1. Urine culture showed Enterobacter. Complains of left-sided abdominal pain, denies any flank pain, right-sided abdominal pain Objective - Vital Signs Vital signs: Vital Signs Temp 98.9 F 03/13/21 07:44 Pulse 69 03/13/21 07:44 Resp 16 03/13/21 07:44 BP 110/65 03/13/21 07:44 Pulse Ox 97 03/13/21 07:44 Intake & Output 03/12/21 03/13/21 03/13/21 18:59 06:59 18:59 Intake Total 1600 Balance 1600 Weight 79.379 kg Intake: Intake, IV Titration 900 Amount Sodium Chloride 0.9% 1, 900 000 ml @ 75 mls/hr IV . [id number] [facility] Rx#:[id number] Oral 700 Other: Voiding Method Bedpan Bedpan Diaper Diaper Diaper Incontinent Incontinent Incontinent # Voids 3 3 - Constitutional General appearance: Present: no acute distress - Gastrointestinal General gastrointestinal: Present: soft, tenderness (Left upper quadrant). A bsent: distended - Psychiatric Psychiatric: Present: A&O x's 3 - Labs CBC & Chem 7: 03/13/21 08:12 03/13/21 08:12 Labs: Abnormal Lab Results - Last 24 Hours (Table) 03/12/21 03/13/21 03/13/21 Range/Units 15:40 08:12 08:12 RBC 2.07 L (3.80-5.40) m/uL Hgb 6.0 L* D (11.4-16.0) gm/dL Hct 17.7 L* (34.0-46.0) % RDW 15.9 H (11.5-15.5) % Lymphocytes # 0.6 L (1.0-4.8) k/uL Sodium 135 L (137-145) mmol/L Potassium 3.2 L (3.5-5.1) mmol/L BUN 34 H 27 H (7-17) mg/dL Creatinine 1.34 H 1.10 H (0.52-1.04) mg/dL Glucose 124 H 105 H (74-99) mg/dL Microbiology - Last 24 Hours (Table) 03/10/21 16:58 Urine Culture - Final Urine,Catheterized Enterobacter aerogenes Assessment and Plan Assessment: 75 yo female that presents to the ED with abdominal pain, nausea and vomiting and weakness. She has hx of right sided hydronephrosis S/P right sided ureteral stent placement on 12/26/[address] Lyn for narrowing at the [facility], at time of discharge the plan was to perform outpatient URS to evaluate the UPJ. On presentation is 1.59 from baseline of 1.0. Reviewed CT stent is in good position, hydro, could be from chronically dilated renal pelvis. Her FABIAN, could be secondary to her dehydration from N/V. No need stent change at this time, creatinine down to 1.34 Plan: -Urine culture showing Enterobacter, okay to discharge on PO antibiotics from urology standpoint, culture susceptible to Bactrim, can be discharged in 7 days of Bactrim -She will need outpatient right-sided diagnostic ureteroscopy, this will be arranged by Dr. Lyn
[2021-03-13] MEDS: polyethylene glycoL 3350 17 GM POWD.PACK PO SCH (12:08)
[2021-03-13] MEDS: MAGNESIUM OXIDE 400 MG TAB PO SCH (12:10)
[2021-03-13 12:15] LABS: Reticulocyte % 0.1 % (0.5-2.0)
[2021-03-13 12:20] LABS: Anisocytosis Slight; Basophils % (A) 0 %; Eosinophils # (A) 0.1 k/uL (0-0.7); Eosinophils % (A) 1 %; HCT 23.8 % (34.0-46.0); Hypochromasia Slight; Lymphocytes # (A) 0.6 k/uL (1.0-4.8); Lymphocytes % (A) 8 %; MCH 27.8 pg (25.0-35.0); MCHC 31.9 g/dL (31.0-37.0); MCV 87.2 fL (80.0-100.0); Mean Platelet Volume 9.5; Monocytes # (A) 0.3 k/uL (0-1.0); Monocytes % (A) 4 %; Neutrophils # (A) 6.7 k/uL (1.3-7.7); Neutrophils % (A) 86 %; Platelet Count 164 k/uL (150-450); RBC 2.73 m/uL (3.80-5.40); RDW 16.3 % (11.5-15.5); WBC 7.8 k/uL (3.8-10.6)
[2021-03-13 12:24] LABS: HGB 7.6 gm/dL (11.4-16.0)
[2021-03-13] MEDS ORDERED: Potassium Replacement Protocol 1 EACH MISC MISCELLANE PRN (14:06)
[2021-03-13] MEDS: POTASSIUM CHLORIDE ER 20 MEQ TAB.ER PO SCH ×2 (15:59→21:18)
[2021-03-13] MEDS: MELATONIN 5 MG TABLET PO SCH (21:14)
[2021-03-13] MEDS: PRAMIPEXOLE 1 MG TAB PO SCH (21:15)
[2021-03-13] MEDS: SULFAMETHOX-TMP 800-160MG 1 EACH TAB PO SCH (21:15)
[2021-03-14] MEDS: NYSTATIN 100,000 UNIT/GM POWD 15 GM TOPICAL SCH ×4 (00:34→20:01)
[2021-03-14 03:20] LABS: Anisocytosis Slight; Basophils % (A) 0 %; Eosinophils # (A) 0.1 k/uL (0-0.7); Eosinophils % (A) 2 %; HCT 23.2 % (34.0-46.0); HGB 7.3 gm/dL (11.4-16.0); Hypochromasia Slight; Lymphocytes # (A) 0.4 k/uL (1.0-4.8); Lymphocytes % (A) 7 %; MCH 27.5 pg (25.0-35.0); MCHC 31.4 g/dL (31.0-37.0); MCV 87.3 fL (80.0-100.0); Mean Platelet Volume 9.1; Monocytes # (A) 0.2 k/uL (0-1.0); Monocytes % (A) 3 %; Neutrophils # (A) 5.8 k/uL (1.3-7.7); Neutrophils % (A) 88 %; Platelet Count 173 k/uL (150-450); RBC 2.65 m/uL (3.80-5.40); RDW 16.5 % (11.5-15.5); WBC 6.6 k/uL (3.8-10.6)
[2021-03-14 03:30] LABS: African American GFR (CKD) 60 (>60 ml/min/1.73 sqM); Anion Gap 4 mmol/L; Blood Urea Nitrogen 22 mg/dL (7-17); Calcium 9.3 mg/dL (8.4-10.2); Carbon Dioxide 30 mmol/L (22-30); Chloride 102 mmol/L (98-107); Glucose 110 mg/dL (74-99); Non-African American GFR(CKD) 52 (>60 ml/min/1.73 sqM); Potassium 3.5 mmol/L (3.5-5.1); Sodium 136 mmol/L (137-145)
[2021-03-14] MEDS: polyethylene glycoL 3350 17 GM POWD.PACK PO SCH (08:46)
[2021-03-14] MEDS: PANTOPRAZOLE 40 MG TABLET PO SCH ×2 (08:46→11:15)
[2021-03-14] MEDS: METOPROLOL TARTRATE 50 MG TAB PO SCH ×3 (08:47→15:43)
[2021-03-14] MEDS: ESCITALOPRAM 10 MG TAB PO SCH ×2 (08:47→11:15)
[2021-03-14] MEDS: SODIUM CHLORIDE 0.9% 1,000 ML IV SCH (08:47)
[2021-03-14] MEDS: MAGNESIUM OXIDE 400 MG TAB PO SCH ×2 (08:47→11:16)
[2021-03-14] MEDS: CARBIDOPA-LEVODOPA 25-100 MG 1 EACH TAB PO SCH ×5 (08:47→20:01)
[2021-03-14] MEDS: LEVOTHYROXINE 75 MCG TAB PO SCH ×2 (08:47→11:15)
[2021-03-14] MEDS: SULFAMETHOX-TMP 800-160MG 1 EACH TAB PO SCH ×3 (08:47→20:01)
[2021-03-14] MEDS: ONDANSETRON 4 MG/2 ML VIAL IVP PRN ×3 (09:06→20:14)
[2021-03-14] MEDS ORDERED: Magnesium Replacement Protocol 1 EACH MISC MISCELLANE PRN (11:41)
[2021-03-14] MEDS: PANTOPRAZOLE 40 MG/10 ML VIAL IVP SCH (12:22)
[2021-03-14] MEDS: METOCLOPRAMIDE 5 MG/ML 2 ML VIAL IVP SCH ×3 (12:22→23:47)
--- NOTE | 2021-03-14 14:23 | P.PN ---
Subjective Progress Note Date: 03/14/21 This is a 75-year-old female with past medical history of UTI Strep agalactiae - (group b) with Pyelonephritis, severe right hydronephrosis with right ureteral stent insertion to 12/26/20,CVA with residual left-sided weakness, expressive aphasia/TIA, hyperlipidemia, hypertension, chronic renal failure, hypo thyroidism, obesity, anxiety, bipolar, depression, former nicotine dependence presented to the ER via EMS with complaints of nausea, vomiting, constipation, diffuse abdominal pain and weakness 2 weeks. Denies any fever or chills, cough, congestion, shortness of breath or chest pain. EKG reporting normal sinus rhythm, left ventricular hypertrophy, possible lateral infarct, age undetermined, similar to prior EKG as per ER review.Reports no bowel movement in 2 days .Vague historian.VSS. CT of abdomen and pelvis reporting bilateral hydronephrosis more severe in the right side, right ureteral stent that appears to be in good position but no change in the right-sided hydronephrosis compared to prior exam before the stent possible stent malfunction with no obstructing calculus. Afebrile, and WBC 11, hemoglobin 9.8 platelets 224, chemistry panel unremarkable with the exception's BUN 44, creatinine 1.59, baseline 1, glucose 121, total bili and LFTs within normal limits with the exception of AST minimally low at 12. Lactic acid 0.9. UA reported few bacteria, many WBC clumps, greater than 182 WBCs large leukocytes negative for bilirubin, moderate blood, trace ketones 2+ protein. Influenza type A and B, Sars/Covid not detected. Received a liter fluid bolus, morphine for pain in the ER. Urology consulted. Urine culture in progress. 03/12/2021 sitting up in bed, diet intake poor ,reporting no nausea or vomiting. Positive bowel movement last night-reports diarrhea. Complains of right lower quadrant abdominal pain. Maintained on Rocephin, urine culture reporting gram-negative bacilli. Afebrile. Labs pending. 03/14/2021 Maintained on antibiotics as per urology for UTI with Enterobacter aerogenes. Renal function at baseline, creatinine 1.06. Hemoglobin 7.3. Persistent nausea with clear emesis. Right lower quadrant abdominal pain. T-max 99.1, normal WBC. Potassium 3.5. Objective - Vital Signs Vital signs: Vital Signs Temp 99.1 F 03/14/21 07:25 Pulse 72 03/14/21 08:00 Resp 18 03/14/21 08:00 BP 109/69 03/14/21 07:25 Pulse Ox 95 03/14/21 07:25 Intake & Output 03/13/21 03/14/21 03/14/21 18:59 06:59 18:59 Intake Total 130 Balance 130 Intake: Intake, IV Titration 130 Amount Sodium Chloride 0.9% 1, 80 000 ml @ 20 mls/hr IV . Q24H [facility] Rx#:[id number] cefTRIAXone 1 gm In 50 Sodium Chloride 0.9% 50 ml @ 100 mls/hr IVPB Q24HR [facility] Rx#:[id number] Other: Voiding Method Diaper Diaper Diaper Incontinent Incontinent Incontinent # Voids 3 2 - Exam - Exam General: Sitting up in bed, awake, alert and oriented times 3,expressive aphasia, nauseated HEENT: PERRL. EOMI. No pharyngeal erythema or exudate. Neck: Supple, no JVD, No adenopathy. Cardiac: Heart regular in rate and rhythm. No S3. No S4. No clicks, rubs. No murmur. Lungs: Clear breath sounds, no rhonchi, bilateral bases diminished. Abdomen: Soft, nondistended, mild diffuse tenderness, no guarding, no rigidity .No mass palpable, No organomegaly. Hypoactive bowel sounds Extremities: trace edema no cyanosis no claudication normal pulses. Skin: Warm and dry, flaky, yeast rash in groin folds ,excoriated under breasts Neurologic: [No lateralizing deficits. CN II - XII grossly intact.Speech consistent with expressive aphasia, chronic residual left-sided weakness. ] Lymphatic: [No adenopathy.] - Labs CBC & Chem 7: 03/14/21 02:43 03/14/21 02:43 Labs: Abnormal Lab Results - Last 24 Hours (Table) 03/13/21 03/13/21 03/14/21 Range/Units 11:28 11:28 02:43 RBC 2.73 L 2.65 L (3.80-5.40) m/uL Hgb 7.6 L D 7.3 L (11.4-16.0) gm/dL Hct 23.8 L 23.2 L (34.0-46.0) % RDW 16.3 H 16.5 H (11.5-15.5) % Lymphocytes # 0.6 L 0.4 L (1.0-4.8) k/uL Retic Count 0.1 L (0.5-2.0) % Sodium (137-145) mmol/L BUN (7-17) mg/dL Creatinine (0.52-1.04) mg/dL Glucose (74-99) mg/dL 03/14/21 Range/Units 02:43 RBC (3.80-5.40) m/uL Hgb (11.4-16.0) gm/dL Hct (34.0-46.0) % RDW (11.5-15.5) % Lymphocytes # (1.0-4.8) k/uL Retic Count (0.5-2.0) % Sodium 136 L (137-145) mmol/L BUN 22 H (7-17) mg/dL Creatinine 1.06 H (0.52-1.04) mg/dL Glucose 110 H (74-99) mg/dL Assessment and Plan Assessment: Abdominal pain with nausea ,vomiting Acute UTI with Enterobacter aerogenes Acute pyelonephritis Bilateral hydronephrosis more severe in the right side, right ureteral stent appears to be in good position but no change in the right-sided hydronephrosis compared to prior exam before the stent, possible stent malfunction with no obstructing calculus reported per ct. Acute on chronic renal failure stage III, secondary to dehydration Dehydration secondary to decreased oral intake History of UTI Strep agalactiae - (group b) with Pyelonephritis, severe right hydronephrosis, cystoscopy with right ureteral stent insertion 01/06/21, no tumors or foreign body seen, evidence of cystitis reported. 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 Hypothyroidism Bipolar disorder Obesity, BMI 32.6 Plan: Continue on current medication regime monitoring and symptomatic treatment. Persistent nausea, vomiting. Reglan added in addition to Zofran. IV push PPI. Continue IV fluid hydration and IV antibiotics. Potassium 3.5, Potassium replacement protocol in place, magnesium level ordered. GI consult initiated. The impression and plan of care has been dictated as directed. : I performed a history and examination of this patient, discussed the same with the dictator. I agree with the dictator's note ,documented as a scribe. Any additional findings or plans will be noted.
--- NOTE | 2021-03-14 16:40 | P.PN ---
Subjective Progress Note Date: 03/14/21 No acute overnight events, denies any flank pain, creatinine is back to baseline Objective - Vital Signs Vital signs: Vital Signs Temp 99.1 F 03/14/21 07:25 Pulse 72 03/14/21 08:00 Resp 18 03/14/21 08:00 BP 109/69 03/14/21 07:25 Pulse Ox 95 03/14/21 07:25 Intake & Output 03/13/21 03/14/21 03/14/21 18:59 06:59 18:59 Intake Total 130 Balance 130 Weight 79.379 kg Intake: Intake, IV Titration 130 Amount Sodium Chloride 0.9% 1, 80 000 ml @ 20 mls/hr IV . Q24H [facility] Rx#:[id number] cefTRIAXone 1 gm In 50 Sodium Chloride 0.9% 50 ml @ 100 mls/hr IVPB Q24HR [facility] Rx#:[id number] Other: Voiding Method Diaper Diaper Diaper Incontinent Incontinent Incontinent # Voids 3 2 - Constitutional General appearance: Present: no acute distress - Psychiatric Psychiatric: Present: A&O x's 3 - Labs CBC & Chem 7: 03/14/21 02:43 03/14/21 02:43 Labs: Abnormal Lab Results - Last 24 Hours (Table) 03/14/21 03/14/21 Range/Units 02:43 02:43 RBC 2.65 L (3.80-5.40) m/uL Hgb 7.3 L (11.4-16.0) gm/dL Hct 23.2 L (34.0-46.0) % RDW 16.5 H (11.5-15.5) % Lymphocytes # 0.4 L (1.0-4.8) k/uL Sodium 136 L (137-145) mmol/L BUN 22 H (7-17) mg/dL Creatinine 1.06 H (0.52-1.04) mg/dL Glucose 110 H (74-99) mg/dL Assessment and Plan Assessment: 75 yo female that presents to the ED with abdominal pain, nausea and vomiting and weakness. She has hx of right sided hydronephrosis S/P right sided ureteral stent placement on 12/26/[address] Lyn for narrowing at the [facility], at time of discharge the plan was to perform outpatient URS to evaluate the UPJ. On presentation is 1.59 from baseline of 1.0. Reviewed CT stent is in good position, hydro, could be from chronically dilated renal pelvis. Her FABIAN resolved now, denies any flank pain Plan: -Urine culture showing Enterobacter, okay to discharge on PO antibiotics from urology standpoint, culture susceptible to Bactrim, can be discharged in 7 days of Bactrim -She will need outpatient right-sided diagnostic ureteroscopy, this will be arranged by Dr. Lyn
[2021-03-14] MEDS: PRAMIPEXOLE 1 MG TAB PO SCH (20:01)
[2021-03-14] MEDS: MELATONIN 5 MG TABLET PO SCH (20:01)
[2021-03-15] MEDS: ONDANSETRON 4 MG/2 ML VIAL IVP PRN (04:57)
[2021-03-15] MEDS: METOCLOPRAMIDE 5 MG/ML 2 ML VIAL IVP SCH ×2 (05:00→13:58)
[2021-03-15] MEDS: PANTOPRAZOLE 40 MG/10 ML VIAL IVP SCH (08:19)
[2021-03-15] MEDS: CARBIDOPA-LEVODOPA 25-100 MG 1 EACH TAB PO SCH ×4 (08:20→21:03)
[2021-03-15] MEDS: ESCITALOPRAM 10 MG TAB PO SCH (08:20)
[2021-03-15] MEDS: LEVOTHYROXINE 75 MCG TAB PO SCH (08:20)
[2021-03-15] MEDS: METOPROLOL TARTRATE 50 MG TAB PO SCH ×2 (08:20→17:32)
[2021-03-15] MEDS: SULFAMETHOX-TMP 800-160MG 1 EACH TAB PO SCH ×2 (08:21→21:03)
[2021-03-15] MEDS: polyethylene glycoL 3350 17 GM POWD.PACK PO SCH (08:21)
[2021-03-15] MEDS: NYSTATIN 100,000 UNIT/GM POWD 15 GM TOPICAL SCH ×3 (08:21→21:03)
--- NOTE | 2021-03-15 11:19 | P.PN ---
Subjective This is a 75-year-old female with past medical history of UTI Strep agalactiae - (group b) with Pyelonephritis, severe right hydronephrosis with right ureteral stent insertion to 12/26/20,CVA with residual left-sided weakness, expressive aphasia/TIA, hyperlipidemia, hypertension, chronic renal failure, hypothyroidism, obesity, anxiety, bipolar, depression, former nicotine dependence presented to the ER via EMS with complaints of nausea, vomiting, constipation, diffuse abdominal pain and weakness 2 weeks. Denies any fever or chills, cough, congestion, shortness of breath or chest pain. EKG reporting normal sinus rhythm, left ventricular hypertrophy, possible lateral infarct, age undetermined, similar to prior EKG as per ER review.Reports no bowel movement in 2 days .Vague historian.VSS. CT of abdomen and pelvis reporting bilateral hyd ronephrosis more severe in the right side, right ureteral stent that appears to be in good position but no change in the right-sided hydronephrosis compared to prior exam before the stent possible stent malfunction with no obstructing calculus. Afebrile, and WBC 11, hemoglobin 9.8 platelets 224, chemistry panel unremarkable with the exception's BUN 44, creatinine 1.59, baseline 1, glucose 121, total bili and LFTs within normal limits with the exception of AST minimally low at 12. Lactic acid 0.9. UA reported few bacteria, many WBC clumps, greater than 182 WBCs large leukocytes negative for bilirubin, moderate blood, trace ketones 2+ protein. Influenza type A and B, Sars/Covid not detected. Received a liter fluid bolus, morphine for pain in the ER. Urology consulted. Urine culture in progress. 03/12/2021 sitting up in bed, diet intake poor ,reporting no nausea or vomiting. Positive bowel movement last night-reports diarrhea. Complains of right lower quadrant abdominal pain. Maintained on Rocephin, urine culture reporting gram- negative bacilli. Afebrile. Labs pending. 03/13/2021: patient is c/o ongoing RLQ pain. She reports nausea and emesis x 3 overnight. Urology says it cleared her for discharge for outpatient follow-up on her stent. She denies any current chest pains pressures or shortness of breath. She indicates no bowel movement yesterday or today yet. Vital signs remained stable. Patient remains afebrile. She continues to need O2. Labs today showed a significant hemoglobin drop with no evidence of any bleeding. Hemoglobin was 9.8 on March 10, currently reported as 6.0. Stat repeat is pending. Chemistries show steady improvement in her GFR from originally 32 on admission 39 yesterday. Repeat for today is pending. 03/14/2021 Maintained on antibiotics as per urology for UTI with Enterobacter aerogenes. Renal function at baseline, creatinine 1.06. Hemoglobin 7.3. Persistent nausea with clear emesis. Right lower quadrant abdominal pain. T-max 99.1, normal WBC. Potassium 3.5. 03/15/2021: Patient continues to have ongoing right lower quadrant pain. She continues to have nausea and vomiting not tolerating much with diet. Urology did switch her to Bactrim and dictates her stent will be treated outpatient. She is chronic hydronephrosis of the kidney. Dr. Pond seen the patient regarding the nausea and vomiting. A note is pending. She really is able to write out that they're planning surgery for her Wednesday. My expectation is to be doing an EGD and/or colonoscopy at that time. I'll wait on the note from GI once available. At this point, vitals have been stable the exception of a MAXIMUM TEMPERATURE of 99.9 yesterday afternoon. She remains on 2 L nasal cannula. Pulse ox 95%. I's and O's show 2 voids today so far. She remains on normal saline 50 mL per hour. She remains on Reglan, pantoprazole, and Zofran for nausea and vomiting symptoms. Objective - Vital Signs Vital signs: Vital Signs Temp 98.7 F 03/15/21 05:00 Pulse 83 03/15/21 05:00 Resp 20 03/15/21 05:00 BP 146/73 03/15/21 05:00 Pulse Ox 97 03/15/21 05:00 Intake & Output 03/14/21 03/15/21 03/15/21 18:59 06:59 18:59 Intake Total 350 Output Total 30 Balance 320 Weight 79.379 kg Intake: Intake, IV Titration 240 Amount Sodium Chloride 0.9% 1, 240 000 ml @ 50 mls/hr IV . Q20H [facility] Rx#:[id number] Oral 110 Output: Emesis 30 Other: Voiding Method Diaper Diaper Incontinent Incontinent # Voids 3 2 - Exam General: Sitting up in bed, awake, alert and oriented times 3,expressive aphasia Neck: Supple, no JVD, No adenopathy. Cardiac: Heart regular in rate and rhythm. No S3. No S4. No clicks, rubs. No murmur. Lungs: Clear breath sounds, no rhonchi, bilateral bases diminished. Abdomen: Soft, nondistended, mild diffuse tenderness, no guarding, no rigidity .No mass palpable, No organomegaly. Hypoactive bowel sounds Extremities: trace edema no cyanosis no claudication normal pulses. Skin: Warm and dry, flaky, yeast rash in groin folds and excoriated under breasts Neurologic: [No lateralizing deficits. CN II - XII grossly intact.Speech consistent with expressive aphasia, chronic residual left-sided weakness. ] Lymphatic: [No adenopathy.] - Labs CBC & Chem 7: 03/14/21 02:43 03/14/21 02:43 Assessment and Plan (1) UTI (lower urinary tract infection) Current Visit: No Status: Acute Code(s): N39.0 - URINARY TRACT INFECTION, SITE NOT SPECIFIED SNOMED Code(s): 9075037 (2) Abdominal pain Current Visit: Yes Status: Acute Code(s): R10.9 - UNSPECIFIED ABDOMINAL PAIN SNOMED Code(s): 37897844 (3) Nausea and vomiting Current Visit: Yes Status: Acute Code(s): R11.2 - NAUSEA WITH VOMITING, UNSPECIFIED SNOMED Code(s): 51303665 (4) Acute pyelonephritis Current Visit: No Status: Acute Code(s): N10 - ACUTE PYELONEPHRITIS SNOMED Code(s): 62576678 (5) Anxiety and depression Current Visit: No Status: Acute Code(s): F41.9 - ANXIETY DISORDER, UNSPECIFIED; F32.9 - MAJOR DEPRESSIVE DISORDER, SINGLE EPISODE, UNSPECIFIED SNOMED Code(s): 505122344 (6) Bipolar 1 disorder Current Visit: No Status: Acute Code(s): F31.9 - BIPOLAR DISORDER, UNSPECIFIED SNOMED Code(s): 368666175 (7) Chronic anemia Current Visit: No Status: Acute Code(s): D64.9 - ANEMIA, UNSPECIFIED SNOMED Code(s): 331907246 (8) Essential (primary) hypertension Current Visit: No Status: Acute Code(s): I10 - ESSENTIAL (PRIMARY) HYPERTENSION SNOMED Code(s): 50472116 (9) History of CVA (cerebrovascular accident) Current Visit: No Status: Acute Code(s): Z86.73 - PRSNL HX OF TIA (TIA), AND CEREB INFRC W/O RESID DEFICITS SNOMED Code(s): 405499061 (10) Parkinson disease Current Visit: No Status: Acute Code(s): G20 - PARKINSON'S DISEASE SNOMED Code(s): 48930576 Plan: Repeat labs in a.m. Weight on GI and urology further recommendations. We not possible EGD and colonoscopy on Wednesday. She'll continue her current medications. I will reevaluate in the next 24 hours.
--- NOTE | 2021-03-15 13:15 | CONS ---
CONSULTATION DATE OF SERVICE: 03/15/2021 REQUESTING PHYSICIAN: Dr. Nelson. REASON FOR CONSULTATION: Persistent nausea and vomiting. HISTORY OF PRESENT ILLNESS: The patient is a 75-year-old pleasant white female with a history of recurrent UTI secondary to severe right-sided hydronephrosis for which she underwent right ureteral stent placement in December of this year. She also has history of CVA with expressive aphasia. She was admitted to the hospital complaining of severe nausea, vomiting, abdominal pain for the last 2-3 weeks duration. As per the nursing staff, she has been having about 2-3 episodes of emesis which are clear and no coffee-grounds emesis. She describes the pain to be located diffusely all over the abdomen. She never had these symptoms in the past. She does not recall if she has any prior history of peptic ulcer disease. Since being in the emergency room, she has been on Protonix 40 mg daily, as well as Zofran with some help. She did have a CT of the abdomen and pelvis done in the emergency room 3 days ago that did show evidence of bilateral hydronephrosis much more severe on the right side and Urology is following the patient closely. She has some mild infiltrate and atelectasis of the lung base noted. On further questioning, the patient does not recall being started on any new medications. However, she has been taking antibiotics for recurrent urinary tract infection. PAST MEDICAL HISTORY: Significant for hypertension, hyperlipidemia, Parkinson disease, history of gastroesophageal reflux disease, hypothyroidism, anxiety, depression, CVA with expressive aphasia and recurrent urinary tract infection. PAST SURGICAL HISTORY: Ureteral stent placement in December of this year, hysterectomy, hammertoe surgery. MEDICATIONS: Medications at home include Lexapro, Prilosec, Pravachol, Zyloprim, levothyroxine, Mirapex, calcitriol, Sinemet, Senna, MiraLAX, triamterene/hydrochlorothiazide, potassium chloride, metoprolol, magnesium oxide, Imodium, Norvasc. ALLERGIES: FLEXERIL. SOCIAL HISTORY: No smoking. No alcohol use. FAMILY HISTORY: Unremarkable. REVIEW OF SYSTEMS: CARDIOPULMONARY: She denies any chest pain or shortness of breath. GENITOURINARY: Recurrent urinary tract infections from hydronephrosis and ureteral obstruction. ENT/VISION: Unremarkable. PSYCHIATRIC: History of anxiety and depression. HEMATOLOGY: Unremarkable. CONSTITUTIONAL: Weight loss of 60 pounds. No fever, chills, night sweats. PHYSICAL EXAMINATION: GENERAL: She appears comfortable. No apparent distress. VITAL SIGNS: Blood pressure 146/73, pulse rate 83, temperature 98.7. HEENT: Examination unremarkable. Conjunctivae are pink. Sclerae anicteric. Oral cavity no lesions. NECK: No JVD or lymph node enlargement. CHEST: Clear to auscultation. HEART: Regular rate and rhythm. ABDOMEN: Soft, bowel sounds are positive. Abdomen is slightly distended, minimal tenderness in the epigastric area. EXTREMITIES: No pedal edema noted. SKIN: No rashes. NEURO: She is alert and oriented x3. No focal deficits. LABS: Labs done at the time of admission to the hospital WBC 7.5, hemoglobin 6, platelets 168. BUN 27, creatinine 1.10. Hemoglobin yesterday was 7.3. IMPRESSION: 1. Abdominal pain associated with nausea and vomiting for the last 2-3 weeks duration. The patient also had a hemoglobin of 6.4 g/dL at the time of admission to the hospital repeat hemoglobin is 7.3. I do not see any evidence of blood transfusion. Rule out possibility of peptic ulcer disease. 2. Bilateral hydronephrosis, worse on the right side, status post ureteral stent placement in December of this year. Urology following the patient closely. 3. Recurrent urinary tract infection. On antibiotics. 4. History of hypertension and hyperlipidemia. 5. Chronic kidney disease. 6. History of Parkinson's disease. RECOMMENDATIONS: 1. Continue with Protonix 40 mg daily. 2. Continue with symptomatic and supportive care. 3. Continue with IV antibiotics. 4. We will proceed with an upper endoscopy tomorrow. Discussed with the patient about the procedure and she is agreeable to it. Thank you for this consultation. MMODL / IJN: [id number] /
[2021-03-15] MEDS: SODIUM CHLORIDE 0.9% 1,000 ML IV SCH (13:59)
[2021-03-15] MEDS: MAGNESIUM OXIDE 400 MG TAB PO SCH (13:59)
[2021-03-15 16:32] LABS: Glucose,Whole Blood 133 mg/dL (75-99)
[2021-03-15 17:10] LABS: ALT <6 U/L (4-34); AST 11 U/L (14-36); African American GFR (CKD) 60 (>60 ml/min/1.73 sqM); Albumin 3.2 g/dL (3.5-5.0); Albumin/Globulin Ratio 1.2; Alkaline Phosphatase 91 U/L (38-126); Anion Gap 9 mmol/L; Blood Urea Nitrogen 19 mg/dL (7-17); Calcium 9.7 mg/dL (8.4-10.2); Carbon Dioxide 29 mmol/L (22-30); Chloride 103 mmol/L (98-107); Globulin 2.6 g/dL; Glucose 118 mg/dL (74-99); Magnesium 1.6 mg/dL (1.6-2.3); Non-African American GFR(CKD) 52 (>60 ml/min/1.73 sqM); Potassium 3.9 mmol/L (3.5-5.1); Sodium 141 mmol/L (137-145); Total Bilirubin 0.4 mg/dL (0.2-1.3); Total Protein 5.8 g/dL (6.3-8.2)
--- NOTE | 2021-03-15 17:44 | CT ---
EXAMINATION TYPE: CT brain wo con DATE OF EXAM: 03/15/2021 COMPARISON: 09/07/2014 HISTORY: neurological changes CT DLP: 1106.9 mGycm Automated exposure control for dose reduction was used. There is cerebral atrophy. There is no mass effect nor midline shift. There is no sign of intracrania l hemorrhage. There is mild hypodensity in the periventricular white matter. Skull base is intact. Th ere is normal aeration of the mastoid sinuses. IMPRESSION: Cerebral atrophy. Chronic small vessel ischemia and the brain which is increased compared to old exam . No acute abnormality.
[2021-03-15] MEDS: PRAMIPEXOLE 1 MG TAB PO SCH (21:02)
[2021-03-15] MEDS: DICYCLOMINE 10 MG CAP PO SCH (21:02)
[2021-03-15] MEDS: MELATONIN 5 MG TABLET PO SCH (21:02)
[2021-03-16 06:36] LABS: Anisocytosis Slight; Basophils % (A) 0 %; Eosinophils # (A) 0.2 k/uL (0-0.7); Eosinophils % (A) 2 %; HCT 21.5 % (34.0-46.0); HGB 7.4 gm/dL (11.4-16.0); Lymphocytes # (A) 0.5 k/uL (1.0-4.8); Lymphocytes % (A) 6 %; MCH 29.3 pg (25.0-35.0); MCHC 34.4 g/dL (31.0-37.0); MCV 85.1 fL (80.0-100.0); Mean Platelet Volume 8.2; Monocytes # (A) 0.4 k/uL (0-1.0); Monocytes % (A) 4 %; Neutrophils # (A) 7.8 k/uL (1.3-7.7); Neutrophils % (A) 86 %; Platelet Count 182 k/uL (150-450); RBC 2.52 m/uL (3.80-5.40); RDW 16.2 % (11.5-15.5)
--- NOTE | 2021-03-16 09:00 | PN ---
PROGRESS NOTE DATE OF DICTATION: March 16, 2021 Patient is a 75-year-old pleasant white female seen in consultation yesterday for persistent nausea and vomiting for the last several weeks' duration. She was scheduled for an upper endoscopy today, but patient had developed severe side effects from Reglan with dystonic movements and hence the procedure was postponed. Overall she is saying that she is feeling better. She still has some abdominal discomfort but no episodes of nausea, vomiting this morning. No fever, chills or night sweats. PHYSICAL EXAMINATION: She appears comfortable. VITAL SIGNS: Stable. Blood pressure is 123/69, pulse rate 92, temperature 99.3. HEENT examination unremarkable. Conjunctivae pink. Sclerae anicteric. Oral cavity no lesions. NECK: No JVD or lymph node enlargement. CHEST was clear to auscultation. HEART: Regular rate and rhythm. ABDOMEN: Soft, it was nontender, nondistended. Bowel sounds are positive. EXTREMITIES: No pedal edema. NEURO: She is alert, oriented to name and place and time. Focal deficits noted. LABS: From today: WBC 9, hemoglobin 7.4, platelets are normal. Basic metabolic panel: BUN 19, creatinine 1.05. IMPRESSION: 1. Abdominal pain with nausea and vomiting for the last 3-4 weeks duration. Rule out peptic ulcer disease. 2. Normocytic anemia with a hemoglobin of 7.4 g/dL. She was 6 g/dL at the time of admission to the hospital and today it is 7.4 and stable and clinically no active bleeding. 3. History of cerebrovascular accident with expressive aphasia. 4. Dystonic movement secondary to Reglan, which was given to her for nausea and vomiting, which is currently on hold. RECOMMENDATIONS: 1. Continue with Protonix. 2. Stop Reglan. 3. Antiemetics with Zofran as needed. 4. Will schedule her for EGD tomorrow. Thank you for this consultation. MMODL / IJN: [id number] /
[2021-03-16] MEDS: SULFAMETHOX-TMP 800-160MG 1 EACH TAB PO SCH ×2 (09:33→20:41)
[2021-03-16] MEDS: ESCITALOPRAM 10 MG TAB PO SCH (09:33)
[2021-03-16] MEDS: LEVOTHYROXINE 75 MCG TAB PO SCH (09:33)
[2021-03-16] MEDS: METOPROLOL TARTRATE 50 MG TAB PO SCH ×2 (09:33→17:33)
[2021-03-16] MEDS: DICYCLOMINE 10 MG CAP PO SCH ×4 (09:33→20:41)
[2021-03-16] MEDS: PANTOPRAZOLE 40 MG/10 ML VIAL IVP SCH (09:34)
[2021-03-16] MEDS: NYSTATIN 100,000 UNIT/GM POWD 15 GM TOPICAL SCH ×3 (09:34→20:47)
[2021-03-16] MEDS: polyethylene glycoL 3350 17 GM POWD.PACK PO SCH (09:34)
[2021-03-16] MEDS: CARBIDOPA-LEVODOPA 25-100 MG 1 EACH TAB PO SCH ×4 (09:34→20:40)
[2021-03-16 09:45] LABS: African American GFR (CKD) 46.5 (60.0-200.0); BUN/Creat Ratio 15.38 Ratio (12.00-20.00); Non-African American GFR(CKD) 40.1 (60.0-200.0); Potassium 3.5 mmol/L (3.5-5.5)
[2021-03-16] MEDS ORDERED: BENZTROPINE 2 MG/2 ML AMP IV STA (09:58)
--- NOTE | 2021-03-16 10:06 | P.CNNES ---
History of Present Illness Consult date: 03/16/21 Requesting physician: Cameron Nelson History of Present Illness: This is a 75-year-old woman with history of stroke (with residual left-sided weakness, expressive aphasia), Parkinson's disease, hypertension, hyperlipidemia, chronic kidney insufficiency, hypothyroidism, urinary tract infection, bipolar, depression, ex tobacco use who presented to the hospital for nausea, vomiting abdominal pain and weakness were 2 weeks. Neurology is consulted for abnormal movements since the patient received Reglan. Per the patient nurse the patient has been getting Reglan 5 mg IV every 6 hours since and upon reviewing that she's been getting since March 14 and has received 5 doses so far. Last dose was around 1358 yesterday. Then yesterday she was f ound to have flexed posture of fingers, clenched mouth, her chin was touching her chest. The patient does not have history of seizures and prior to her getting Reglan she did not have that these abnormal postures. Per the patient's nurse since they stopped giving her the medication she has been improving and almost back to baseline. Patient stated she is feeling better today compared to yesterday but not 100% back to baseline. She acknowledged she has history of Parkinson's disease for 7 years and follows-up with Dr. Ayers. Regarding Parkinson's disease the patient is on Sinemet 25/102 tabs a AC/supper at 1600 Some of the workup consisted of: Most recent vitals his blood pressure of 123/69, heart rate of 92, respiratory of 20, temperature of 99.3 Fahrenheit oral and pulse ox of 96% on 2 L of nasal cannula. CT of the head on the 03/15/2021 is reported as cerebral atrophy. Chronic small vessel ischemia in the brain which is increased compared to old exam. No acute abnormality. Of note during the hospital stay the patient hemoglobin on presentation was 9.8 and it dropped all the way to 6.0 on 03/13/2021. Most recent hemoglobin as on the 03/16/2021 at 7.4. Latest sodium is 141 which is normal. The glucose has been in the 100 to 110s. Calcium is 9.7 which is normal. Magnesium is 1.6 which is normal. During the hospital stay the patient has a urinalysis which showed that she has ureter tract infection. SARS-COV2 PCR is not detected. Per the patient nurse she's supposed to get an EGD today. Review of Systems Review of system: The 12 point system was reviewed and apparent positive and negative per HPI. 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 No adult children. However they fostered 37 children. 2 pet dogs in the home. No international travel. No experience Smoking Status: Former smoker Past Alcohol Use History: None Reported Past Drug Use History: None Reported - Past Family History Father Family Medical History: No Reported History Medications and Allergies Home Medications Medication Instructions Recorded Confirmed Type Escitalopram Oxalate [Lexapro] 10 mg PO DAILY@0800 09/07/14 03/10/21 History Omeprazole [PriLOSEC] 20 mg PO BID@0800,1600 09/07/14 03/10/21 History Pravastatin Sodium [Pravachol] 80 mg PO HS@199909/07/14 03/10/21 History allopurinoL [Zyloprim] 100 mg PO BID@0800,1600 09/21/17 03/10/21 History Ergocalciferol (Vitamin D2) 50,000 unit PO Q14D 05/19/19 03/10/21 History [Drisdol (50,000 Iu)] Levothyroxine Sodium [Synthroid] 150 mcg PO DAILY@0800 05/19/19 03/10/21 History Pramipexole [Mirapex] 1 mg PO HS@199905/19/19 03/10/21 History calcitrioL [Rocaltrol] 0.25 mcg PO SUMOTUWETHFR 05/19/19 03/10/21 History Carbidopa-Levodopa 25-100 mg 1 tab PO TID@0800,1200,199912/24/20 03/10/21 History [Sinemet 25-100 mg] Carbidopa-Levodopa 25-100 mg 2 tab PO AC-SUPPER@1600 12/24/20 03/10/21 History [Sinemet 25-100 mg] Metoprolol Tartrate [Lopressor] 50 mg PO BID@0800,1600 12/24/20 03/10/21 History Potassium Chloride ER [K-Dur 20] 20 meq PO DAILY@1200 12/24/20 03/10/21 History Triamterene/Hydrochlorothiazid 1 tab PO DAILY@1200 12/24/20 03/10/21 History [Triamterene-Hctz 37.5-25 mg Tb] polyethylene glycoL 3350 [Miralax] 17 gm PO DAILY PRN #0 powd.pack 01/01/21 03/10/21 Rx Sennosides-Docusate Sodium 1 tab PO BID@1200,2000 01/24/21 03/10/21 History [Senokot-S] Acetaminophen Tab [Tylenol] 325 mg PO Q6H PRN 03/10/21 03/10/21 History Ascorbic Acid [Vitamin C] 1,000 mg PO DAILY@1200 03/10/21 03/10/21 History Loperamide [Imodium] 2 mg PO DAILY PRN 03/10/21 03/10/21 History Magnesium Oxide [Mag-Ox] 400 mg PO DAILY@1200 03/10/21 03/10/21 History Methyl Salicylate/Menthol 1 patch TOPICAL DAILY PRN 03/10/21 03/10/21 History [Salonpas Patch] amLODIPine [Norvasc] 10 mg PO DAILY@0800 03/10/21 03/10/21 History Allergies Allergy/AdvReac Type Severity Reaction Status Date / Time amiodarone [From Cordarone] Allergy Anaphylaxis Verified 03/10/21 21:13 cyclobenzaprine Allergy Rash/Hives Verified 03/10/21 21:13 [From Flexeril] metoclopramide AdvReac Severe Unknown Verified 03/16/21 12:41 Physical Examination - Vital Signs Vital Signs: Vital Signs Temp Pulse Resp BP BP Pulse Ox 03/16/21 04:45 99.3 F 92 20 123/69 96 03/15/21 20:00 20 03/15/21 19:30 98.6 F 85 20 119/54 92 L 03/15/21 13:20 97.5 F L 74 18 123/68 99 Intake and Output 03/15/21 03/16/21 03/16/21 22:59 06:59 14:59 Intake Total 660 Balance 660 Intake: Intake, IV Titration 600 Amount Sodium Chloride 0.9% 1, 600 000 ml @ 50 mls/hr IV . Q20H [facility] Rx#:[id number] Oral 60 Other: Voiding Method Diaper Incontinent # Voids 2 GENERAL: The patient is lying in bed and is not in acute distress. CHEST: The heart rate is regular rate rhythm. No murmurs to auscultation. LUNG: Clear to auscultation bilaterally no wheezing noted throughout. Not labored breathing. ABDOMEN/GI: Bowel sounds present in all 4 quadrants. No tenderness to palpation throughout. NEUROLOGICAL: Higher mental function: The patient is awake, alert, oriented to self, place and time (correctly chooses them with options). She is following commands. She would verbalize but has significant expressive aphasia. No neglect. Patient is following commands. Cranial nerves: The pupils are round, equal and reactive to light and accommodation. Visual rose are full to confrontation throughout. Extraocular movement is intact no nystagmus is noted. Facial sensation is normal to touch throughout. The facial strength is normal throughout. Hearing is normal bilaterally to hand rub. Tongue is midline. Has moderate dysarthria is noted. Motor: Gait is deferred. The strength is able to move all extremities above gravity. She has increase tone in bilateral wrist and elbows. She has some flexed posture of hand. Normal bulk. Cerebellum: Could not assess. Sensation: Sensation is normal to touch throughout. Reflexes (right/left): 3+ in all uppers. Right patellar is is 2-3+ while left is 2+. Ankles are 1+ bilaterally. Plantars are upgoing bilaterally. Results - Laboratory Findings CBC and BMP: 03/16/21 05:56 03/16/21 05:56 Abnormal Lab Findings: Abnormal Labs 03/10/21 03/10/21 03/10/21 16:58 16:58 16:58 WBC 11.0 H RBC 3.41 L Hgb 9.8 L Hct 29.1 L RDW 15.9 H Neutrophils # 9.6 H Lymphocytes # 0.9 L Retic Count APTT 19.9 L Sodium Potassium BUN Creatinine Glucose POC Glucose (mg/dL) AST Total Protein Albumin Urine Appearance Turbid H Urine Protein 2+ H Urine Ketones Trace H Urine Blood Moderate H Ur Leukocyte Esterase Large H Urine RBC 56 H Urine WBC >182 H Urine WBC Clumps Many H Ur Squamous Epith Cells 31 H Amorphous Sediment Rare H Urine Bacteria Few H 03/10/21 03/11/21 03/12/21 16:58 10:37 15:40 WBC RBC Hgb Hct RDW Neutrophils # Lymphocytes # Retic Count APTT Sodium 135 L Potassium BUN 44 H 46 H 34 H Creatinine 1.59 H 1.47 H 1.34 H Glucose 121 H 140 H 124 H POC Glucose (mg/dL) AST 12 L Total Protein Albumin Urine Appearance Urine Protein Urine Ketones Urine Blood Ur Leukocyte Esterase Urine RBC Urine WBC Urine WBC Clumps Ur Squamous Epith Cells Amorphous Sediment Urine Bacteria 03/13/21 03/13/21 03/13/21 08:12 08:12 11:28 WBC RBC 2.07 L 2.73 L Hgb 6.0 L* D 7.6 L D Hct 17.7 L* 23.8 L RDW 15.9 H 16.3 H Neutrophils # Lymphocytes # 0.6 L 0.6 L Retic Count APTT Sodium Potassium 3.2 L BUN 27 H Creatinine 1.10 H Glucose 105 H POC Glucose (mg/dL) AST Total Protein Albumin Urine Appearance Urine Protein Urine Ketones Urine Blood Ur Leukocyte Esterase Urine RBC Urine WBC Urine WBC Clumps Ur Squamous Epith Cells Amorphous Sediment Urine Bacteria 03/13/21 03/14/21 03/14/21 11:28 02:43 02:43 WBC RBC 2.65 L Hgb 7.3 L Hct 23.2 L RDW 16.5 H Neutrophils # Lymphocytes # 0.4 L Retic Count 0.1 L APTT Sodium 136 L Potassium BUN 22 H Creatinine 1.06 H Glucose 110 H POC Glucose (mg/dL) AST Total Protein Albumin Urine Appearance Urine Protein Urine Ketones Urine Blood Ur Leukocyte Esterase Urine RBC Urine WBC Urine WBC Clumps Ur Squamous Epith Cells Amorphous Sediment Urine Bacteria 03/15/21 03/15/21 03/16/21 16:27 16:43 05:56 WBC RBC 2.52 L Hgb 7.4 L Hct 21.5 L RDW 16.2 H Neutrophils # 7.8 H Lymphocytes # 0.5 L Retic Count APTT Sodium Potassium BUN 19 H Creatinine 1.05 H Glucose 118 H POC Glucose (mg/dL) 133 H AST 11 L Total Protein 5.8 L Albumin 3.2 L Urine Appearance Urine Protein Urine Ketones Urine Blood Ur Leukocyte Esterase Urine RBC Urine WBC Urine WBC Clumps Ur Squamous Epith Cells Amorphous Sediment Urine Bacteria Assessment and Plan Assessment: Acute dystonia due to medication effect (Reglan)---improving History of Parkinson's disease Reported History of stroke with residual left-sided weakness and expressive aphasia is seems that the patient is not on any antiplatelets Abdominal pain with nausea vomiting Acute pyelonephritis Acute on chronic anemia Bilateral hydronephrosis Hypothyroidism Acute on chronic kidney insufficiency Bipolar Anxiety depression Plan: CT of the head on the 03/15/2021 is reported as cerebral atrophy. Chronic small vessel ischemia in the brain which is increased compared to old exam. No acute abnormality. Reglan is discontinued. Please avoid any anti-dopaminergic (anti-psychotics) which will give dystonia. I gave the patient's 1 mg a dose of benztropine. Regarding the patient's history of stroke once the patient's anemia resolves I would recommend aspirin 81 mg and recommend Lipitor 20 mg. Upon discharge the patient needs to follow-up with a neurologist as an outpatient within 1-2 weeks (she stated she follows-up with Dr. Ayers). The plan is discussed with the patient's nurse. Thank you for the consultation. UPDATE: I was notified by the patient's nurse that patient is back to baseline. There is no further neurological work-up needed. Neurology will sign off. Please reconsult if needed. Robson Brown MD Neuro-Hospitalist Time with Patient: Greater than 30
--- NOTE | 2021-03-16 10:37 | P.PAINCN ---
History of Present Illness - Reason for Consult Consult date: 03/16/21 - History of Present Illness This is a 73-year-old patient with a complex medical history who has had previous left total hip arthroplasty September 2020, as well as seen in the pain clinic here we have done bilateral lumbar RFA for her. She presented to the ER with some weakness and vomiting on March 14. She was supposed to have back surgery with Dr. Metz but unfortunately she had COVID in October. The reason for this consult is a patient is having significant left hip and left low back pain with radiation down the anterior aspect of the left lower extremity stopping at the knee. Pain is described as sharp and stabbing and she has significant weakness and has difficulty moving with her left lower extremity. She is unable to bear weight on her own, however she said she was able to sit in a chair for 45 minutes today. He is currently receiving Tylenol 650 mg every 6 as needed, Riley 5 every 6 as needed, Flexeril 10 mg 3 times a day, gabapentin 300 mg 3 times a day, and Solu-Medrol 60 mg every 6 hours. She does not take any pain medications at home, her maps only show the occasional Riley 5 presc ription. In addition to above, 13-point review of systems is also negative for chest pain, shortness of breath, changes in vision, changes in hearing, new onset weakness, abdominal pain, diarrhea, extreme fatigue, malaise, fever, skin changes, homicidal or suicidal ideation, or bowel or bladder incontinence. Physical exam: Vital Signs: Reviewed in EMR GENERAL: Well appearing, mild distress PSYCH: Emotional, tearful SKIN: Skin color, texture, turgor normal, no rashes or lesions HEENT: Normocephalic, atraumatic. EOM intact CV: No pedal edema RESP: Respirations are unlabored, no audible wheezing GI: Abdomen non-distended MUSCULOSKELETAL: LLE strength decreased 1/5 in hip flexion, extension. Unable to assess knee flexion/extension as patient unable to sit up at time of visit. Dorisflexion/plantarflexion of bilateral LE intact.. No atrophy or tone abnormalities are noted. Lumbar spine: Unable to SLR due to pain. pain to palpation over the lumbar spine and paraspinous muscles on left side. Unable to assess lumbar ROM as patient unable to stand at this time due to pain. Significant pain to logrolling on left side Gait: Unable to assess gait due to pain NEUR: Bilateral upper and lower extremity coordination and muscle stretch Could not assess patellar or achilles reflex as patient is unable to sit. Negative clonus. No loss of sensation is noted. Cranial nerves are grossly intact. Imaging: MRI shows lumbar spondylosis throughout the lumbar spine. The most notable findings are significant and severe neural foraminal stenosis at L3-L4. Assessment: 1. Lumbar spinal stenosis 2. Lumbar spondylosis 3. Left hip pain s/p hip replacement Plan: 1. Explanation: Diagnoses, prognoses, and multiple treatment options including but not limited to physical therapy, interventional therapies, medication management and surgery were discussed with the patient and all questions were answered to the patient's satisfaction. 2. Investigations: None 3. Counseling: None at this time 4. Procedures: If the patient is still present in the hospital on Wednesday, w e'll schedule her for a left L3-L4 transforaminal epidural steroid injection. Her pain location is in the distribution of this dermatome, however I did note that the MRI shows that the stenosis at this level is no different than it was before. I educated her that it is possible that this injection will likely not help at all and regardless she might need surgery. Patient understands 5. Consultations: Continue to follow up with orthopedic surgery and Dr Metz 6. Medications: I recommend changing her medication regimen to oxycodone 5 mg every 6H as needed, Tylenol 1000 mg every 6H scheduled, and keeping her gabapentin 300 mg 3 times a day and Flexeril 10 3 times a day. I am leaving the gabapentin at this dose as the patient at this time is overall satisfied with her pain regimen and given her age I do not want to contribute to any mental status clouding.. I also noted that there is an ALLERGY to Flexeril listed in her chart for hives but the patient is not experiencing that right now. Can change to Robaxin 750 mg QID if the patient is getting significant atopic reactions to the flexeril. 7. 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 No adult children. However they fostered 37 children. 2 pet dogs in the home. No international travel. No experience Smoking Status: Former smoker Past Alcohol Use History: None Reported Past Drug Use History: None Reported - Past Family History Father Family Medical History: No Reported History Medications and Allergies Home Medications Medication Instructions Recorded Confirmed Type Escitalopram Oxalate [Lexapro] 10 mg PO DAILY@0800 09/07/14 03/10/21 History Omeprazole [PriLOSEC] 20 mg PO BID@0800,1600 09/07/14 03/10/21 History Pravastatin Sodium [Pravachol] 80 mg PO HS@199909/07/14 03/10/21 History allopurinoL [Zyloprim] 100 mg PO BID@0800,1600 09/21/17 03/10/21 History Ergocalciferol (Vitamin D2) 50,000 unit PO Q14D 05/19/19 03/10/21 History [Drisdol (50,000 Iu)] Levothyroxine Sodium [Synthroid] 150 mcg PO DAILY@0800 05/19/19 03/10/21 History Pramipexole [Mirapex] 1 mg PO HS@199905/19/19 03/10/21 History calcitrioL [Rocaltrol] 0.25 mcg PO SUMOTUWETHFR 05/19/19 03/10/21 History Carbidopa-Levodopa 25-100 mg 1 tab PO TID@0800,1200,199912/24/20 03/10/21 Hi story [Sinemet 25-100 mg] Carbidopa-Levodopa 25-100 mg 2 tab PO AC-SUPPER@159912/24/20 03/10/21 History [Sinemet 25-100 mg] Metoprolol Tartrate [Lopressor] 50 mg PO BID@0800,1600 12/24/20 03/10/21 History Potassium Chloride ER [K-Dur 20] 20 meq PO DAILY@1200 12/24/20 03/10/21 History Triamterene/Hydrochlorothiazid 1 tab PO DAILY@1200 12/24/20 03/10/21 History [Triamterene-Hctz 37.5-25 mg Tb] polyethylene glycoL 3350 [Miralax] 17 gm PO DAILY PRN #0 powd.pack 01/01/21 Rx Sennosides-Docusate Sodium 1 tab PO BID@1200,199901/24/21 03/10/21 History [Senokot-S] Acetaminophen Tab [Tylenol] 325 mg PO Q6H PRN 03/10/21 03/10/21 History Ascorbic Acid [Vitamin C] 1,000 mg PO DAILY@119903/10/21 03/10/21 History Loperamide [Imodium] 2 mg PO DAILY PRN 03/10/21 03/10/21 History Magnesium Oxide [Mag-Ox] 400 mg PO DAILY@1200 03/10/21 03/10/21 History Methyl Salicylate/Menthol 1 patch TOPICAL DAILY PRN 03/10/21 03/10/21 History [Salonpas Patch] amLODIPine [Norvasc] 10 mg PO DAILY@0800 03/10/21 03/10/21 History Allergies Allergy/AdvReac Type Severity Reaction Status Date / Time amiodarone [From Cordarone] Allergy Anaphylaxis Verified 03/10/21 21:13 cyclobenzaprine Allergy Rash/Hives Verified 03/10/21 21:13 [From Flexeril] Physical Exam Vitals: Vital Signs Temp Pulse Resp BP BP Pulse Ox 03/16/21 04:45 99.3 F 92 20 123/69 96 03/15/21 20:00 20 03/15/21 19:30 98.6 F 85 20 119/54 92 L 03/15/21 13:20 97.5 F L 74 18 123/68 99 Intake and Output 03/15/21 03/16/21 03/16/21 22:59 06:59 14:59 Intake Total 660 Balance 660 Intake: Intake, IV Titration 600 Amount Sodium Chloride 0.9% 1, 600 000 ml @ 50 mls/hr IV . Q20H BALDOMERO Rx#:[id number] Oral 60 Other: Voiding Method Diaper Incontinent # Voids 2 Results CBC & Chem 7: 03/16/21 05:56 03/16/21 05:56 Labs: Abnormal Lab Results - Last 24 Hours (Table) 03/15/21 03/15/21 03/16/21 Range/Units 16:27 16:43 05:56 RBC (3.80-5.40) m/uL Hgb (11.4-16.0) gm/dL Hct (34.0-46.0) % RDW (11.5-15.5) % Neutrophils # (1.3-7.7) k/uL Lymphocytes # (1.0-4.8) k/uL Sodium 146 H (135-145) mmol/L BUN 19 H (7-17) mg/dL Creatinine 1.05 H (0.52-1.04) mg/dL Est GFR (CKD-EPI)AfAm 46.5 L (60.0-200.0) Est GFR (CKD-EPI)NonAf 40.1 L (60.0-200.0) Glucose 118 H (74-99) mg/dL POC Glucose (mg/dL) 133 H (75-99) mg/dL AST 11 L (14-36) U/L Total Protein 5.8 L (6.3-8.2) g/dL Albumin 3.2 L (3.5-5.0) g/dL 03/16/21 Range/Units 05:56 RBC 2.52 L (3.80-5.40) m/uL Hgb 7.4 L (11.4-16.0) gm/dL Hct 21.5 L (34.0-46.0) % RDW 16.2 H (11.5-15.5) % Neutrophils # 7.8 H (1.3-7.7) k/uL Lymphocytes # 0.5 L (1.0-4.8) k/uL Sodium (135-145) mmol/L BUN (7-17) mg/dL Creatinine (0.52-1.04) mg/dL Est GFR (CKD-EPI)AfAm (60.0-200.0) Est GFR (CKD-EPI)NonAf (60.0-200.0) Glucose (74-99) mg/dL POC Glucose (mg/dL) (75-99) mg/dL AST (14-36) U/L Total Protein (6.3-8.2) g/dL Albumin (3.5-5.0) g/dL PQRS Measure Charge Sheet PQRS Narrative: Smoking Status Former smoker Blood Pressure [Left Arm] 119/54 Blood Pressure [Right Arm] 123/69 Blood Pressure 103/61 Pain Intensity [Abdomen] 0 Pain Intensity 0 Pain Scale Used Numeric (1 - 10) Scale Used Non Verbal Pain Indicator Home Medications: Ambulatory Orders Escitalopram Oxalate [Lexapro] 10 mg PO DAILY@0800 09/07/14 Omeprazole [PriLOSEC] 20 mg PO BID@0800,1600 09/07/14 Pravastatin Sodium [Pravachol] 80 mg PO HS@199909/07/14 allopurinoL [Zyloprim] 100 mg PO BID@0800,159909/21/17 Ergocalciferol (Vitamin D2) [Drisdol (50,000 Iu)] 50,000 unit PO Q14D 05/19/19 Levothyroxine Sodium [Synthroid] 150 mcg PO DAILY@0800 05/19/19 Pramipexole [Mirapex] 1 mg PO HS@199905/19/19 calcitrioL [Rocaltrol] 0.25 mcg PO SUMOTUWETHFR 05/19/19 Carbidopa-Levodopa 25-100 mg [Sinemet 25-100 mg] 1 tab PO TID@0800,1200,199912/24/20 Carbidopa-Levodopa 25-100 mg [Sinemet 25-100 mg] 2 tab PO AC-SUPPER@159912/24/20 Metoprolol Tartrate [Lopressor] 50 mg PO BID@0800,159912/24/20 Potassium Chloride ER [K-Dur 20] 20 meq PO DAILY@119912/24/20 Triamterene/Hydrochlorothiazid [Triamterene-Hctz 37.5-25 mg Tb] 1 tab PO DAILY@119912/24/20 polyethylene glycoL 3350 [Miralax] 17 gm PO DAILY PRN #0 powd.pack 01/01/21 Sennosides-Docusate Sodium [Senokot-S] 1 tab PO BID@1200,199901/24/21 Acetaminophen Tab [Tylenol] 325 mg PO Q6H PRN 03/10/21 Ascorbic Acid [Vitamin C] 1,000 mg PO DAILY@1200 03/10/21 Loperamide [Imodium] 2 mg PO DAILY PRN 03/10/21 Magnesium Oxide [Mag-Ox] 400 mg PO DAILY@119903/10/21 Methyl Salicylate/Menthol [Salonpas Patch] 1 patch TOPICAL DAILY PRN 03/10/21 amLODIPine [Norvasc] 10 mg PO DAILY@0800 03/10/21
--- NOTE | 2021-03-16 11:02 | P.PN ---
Subjective This is a 75-year-old female with past medical history of UTI Strep agalactiae - (group b) with Pyelonephritis, severe right hydronephrosis with right ureteral stent insertion to 12/26/20,CVA with residual left-sided weakness, expressive aphasia/TIA, hyperlipidemia, hypertension, chronic renal failure, hypothyroidism, obesity, anxiety, bipolar, depression, former nicotine dependence presented to the ER via EMS with complaints of nausea, vomiting, constipation, diffuse abdominal pain and weakness 2 weeks. Denies any fever or chills, cough, congestion, shortness of breath or chest pain. EKG reporting normal sinus rhythm, left ventricular hypertrophy, possible lateral infarct, age undetermined, similar to prior EKG as per ER review.Reports no bowel movement in 2 days .Vague historian.VSS. CT of abdomen and pelvis reporting bilateral hyd ronephrosis more severe in the right side, right ureteral stent that appears to be in good position but no change in the right-sided hydronephrosis compared to prior exam before the stent possible stent malfunction with no obstructing calculus. Afebrile, and WBC 11, hemoglobin 9.8 platelets 224, chemistry panel unremarkable with the exception's BUN 44, creatinine 1.59, baseline 1, glucose 121, total bili and LFTs within normal limits with the exception of AST minimally low at 12. Lactic acid 0.9. UA reported few bacteria, many WBC clumps, greater than 182 WBCs large leukocytes negative for bilirubin, moderate blood, trace ketones 2+ protein. Influenza type A and B, Sars/Covid not detected. Received a liter fluid bolus, morphine for pain in the ER. Urology consulted. Urine culture in progress. 03/12/2021 sitting up in bed, diet intake poor ,reporting no nausea or vomiting. Positive bowel movement last night-reports diarrhea. Complains of right lower quadrant abdominal pain. Maintained on Rocephin, urine culture reporting gram- negative bacilli. Afebrile. Labs pending. 03/13/2021: patient is c/o ongoing RLQ pain. She reports nausea and emesis x 3 overnight. Urology says it cleared her for discharge for outpatient follow-up on her stent. She denies any current chest pains pressures or shortness of breath. She indicates no bowel movement yesterday or today yet. Vital signs remained stable. Patient remains afebrile. She continues to need O2. Labs today showed a significant hemoglobin drop with no evidence of any bleeding. Hemoglobin was 9.8 on March 10, currently reported as 6.0. Stat repeat is pending. Chemistries show steady improvement in her GFR from originally 32 on admission 39 yesterday. Repeat for today is pending. 03/14/2021 Maintained on antibiotics as per urology for UTI with Enterobacter aerogenes. Renal function at baseline, creatinine 1.06. Hemoglobin 7.3. Persistent nausea with clear emesis. Right lower quadrant abdominal pain. T-max 99.1, normal WBC. Potassium 3.5. 03/15/2021: Patient continues to have ongoing right lower quadrant pain. She continues to have nausea and vomiting not tolerating much with diet. Urology did switch her to Bactrim and dictates her stent will be treated outpatient. She is chronic hydronephrosis of the kidney. Dr. Pond seen the patient regarding the nausea and vomiting. A note is pending. She really is able to write out that they're planning surgery for her Wednesday. My expectation is to be doing an EGD and/or colonoscopy at that time. I'll wait on the note from GI once available. At this point, vitals have been stable the exception of a MAXIMUM TEMPERATURE of 99.9 yesterday afternoon. She remains on 2 L nasal cannula. Pulse ox 95%. I's and O's show 2 voids today so far. She remains on normal saline 50 mL per hour. She remains on Reglan, pantoprazole, and Zofran for nausea and vomiting symptoms. 03/16/2021: Yesterday evening and overnight patient began experiencing dystonic type motions. Of contractions of the hands and neck. They're not distressing all to the patient. She was significantly unaware of them. Stat labs and CT brain were nonsignificant contributory. I suspected dystonia from Reglan and this medication was discontinued. She was placed on anticholinergic, Bentyl, help with the symptoms. They have since improved. Neurontin was consultation and they've ordered 1 dose of Cogentin. Their workup as noted. She remains on Rocephin for hydronephrosis and UTI. Urology is following. EGD colonoscopy was canceled due to anesthesia unavailability. It is rescheduled for tomorrow. Vitals remained stable. A sugar remains afebrile. Her sats remain above 92% on 2 L O2. She is incontinent adult briefs. She remains anemic with a hemoglobin of 7.4. Chemistries were essentially normal. She really has no significant complaints at this time. Objective - Vital Signs Vital signs: Vital Signs Temp 99.3 F 03/16/21 04:45 Pulse 92 03/16/21 04:45 Resp 20 03/16/21 04:45 BP 123/69 03/16/21 04:45 Pulse Ox 96 03/16/21 04:45 Intake & Output 03/15/21 03/16/21 03/16/21 18:59 06:59 18:59 Intake Total 660 Balance 660 Intake: Intake, IV Titration 600 Amount Sodium Chloride 0.9% 1, 600 000 ml @ 50 mls/hr IV . Q20H BALDOMERO Rx#:[id number] Oral 60 Other: Voiding Method Diaper Diaper Incontinent Incontinent # Voids 2 - Exam General: Sitting up in bed, awake, alert and oriented times 3,expressive aphasia Neck: Supple, no JVD, No adenopathy. Cardiac: Heart regular in rate and rhythm. No S3. No S4. No clicks, rubs. No murmur. Lungs: Clear breath sounds, no rhonchi, bilateral bases diminished. Abdomen: Soft, nondistended, mild diffuse tenderness, no guarding, no rigidity .No mass palpable, No organomegaly. Hypoactive bowel sounds Extremities: trace edema no cyanosis no claudication normal pulses. Skin: Warm and dry, flaky, yeast rash in groin folds and excoriated under breasts Neurologic: [No lateralizing deficits. CN II - XII grossly intact.Speech consistent with expressive aphasia, chronic residual left-sided weakness. ] Lymphatic: [No adenopathy.] - Labs CBC & Chem 7: 03/16/21 05:56 03/16/21 05:56 Labs: Abnormal Lab Results - Last 24 Hours (Table) 03/15/21 03/15/21 03/16/21 Range/Units 16:27 16:43 05:56 RBC (3.80-5.40) m/uL Hgb (11.4-16.0) gm/dL Hct (34.0-46.0) % RDW (11.5-15.5) % Neutrophils # (1.3-7.7) k/uL Lymphocytes # (1.0-4.8) k/uL Sodium 146 H (135-145) mmol/L BUN 19 H (7-17) mg/dL Creatinine 1.05 H (0.52-1.04) mg/dL Est GFR (CKD-EPI)AfAm 46.5 L (60.0-200.0) Est GFR (CKD-EPI)NonAf 40.1 L (60.0-200.0) Glucose 118 H (74-99) mg/dL POC Glucose (mg/dL) 133 H (75-99) mg/dL AST 11 L (14-36) U/L Total Protein 5.8 L (6.3-8.2) g/dL Albumin 3.2 L (3.5-5.0) g/dL 03/16/21 Range/Units 05:56 RBC 2.52 L (3.80-5.40) m/uL Hgb 7.4 L (11.4-16.0) gm/dL Hct 21.5 L (34.0-46.0) % RDW 16.2 H (11.5-15.5) % Neutrophils # 7.8 H (1.3-7.7) k/uL Lymphocytes # 0.5 L (1.0-4.8) k/uL Sodium (135-145) mmol/L BUN (7-17) mg/dL Creatinine (0.52-1.04) mg/dL Est GFR (CKD-EPI)AfAm (60.0-200.0) Est GFR (CKD-EPI)NonAf (60.0-200.0) Glucose (74-99) mg/dL POC Glucose (mg/dL) (75-99) mg/dL AST (14-36) U/L Total Protein (6.3-8.2) g/dL Albumin (3.5-5.0) g/dL Assessment and Plan (1) UTI (lower urinary tract infection) Current Visit: No Status: Acute Code(s): N39.0 - URINARY TRACT INFECTION, SITE NOT SPECIFIED SNOMED Code(s): 4625304 (2) Abdominal pain Current Visit: Yes Status: Acute Code(s): R10.9 - UNSPECIFIED ABDOMINAL PAIN SNOMED Code(s): 50082437 (3) Nausea and vomiting Current Visit: Yes Status: Acute Code(s): R11.2 - NAUSEA WITH VOMITING, UNSPECIFIED SNOMED Code(s): 81436804 (4) Acute pyelonephritis Current Visit: No Status: Acute Code(s): N10 - ACUTE PYELONEPHRITIS SNOMED Code(s): 91836804 (5) Anxiety and depression Current Visit: No Status: Acute Code(s): F41.9 - ANXIETY DISORDER, UNSPECIFIED; F32.9 - MAJOR DEPRESSIVE DISORDER, SINGLE EPISODE, UNSPECIFIED SNOMED Code(s): 558949394 (6) Bipolar 1 disorder Current Visit: No Status: Acute Code(s): F31.9 - BIPOLAR DISORDER, UNSPECIFIED SNOMED Code(s): 207368109 (7) Chronic anemia Current Visit: No Status: Acute Code(s): D64.9 - ANEMIA, UNSPECIFIED SNOMED Code(s): 837539971 (8) Essential (primary) hypertension Current Visit: No Status: Acute Code(s): I10 - ESSENTIAL (PRIMARY) HYPERTENSION SNOMED Code(s): 24138657 (9) History of CVA (cerebrovascular accident) Current Visit: No Status: Acute Code(s): Z86.73 - PRSNL HX OF TIA (TIA), AND CEREB INFRC W/O RESID DEFICITS SNOMED Code(s): 333774842 (10) Parkinson disease Current Visit: No Status: Acute Code(s): G20 - PARKINSON'S DISEASE SNOMED Code(s): 58614562 (11) Dystonia Current Visit: Yes Status: Acute Code(s): G24.9 - DYSTONIA, UNSPECIFIED SNOMED Code(s): 06791152 Plan: Repeat labs in a.m. Neurology notes reviewed Wait on GI and urology further recommendations. Wait on EGD and colonoscopy on Wednesday. She'll continue her current medications. She will be reevaluate in the next 24 hours.
[2021-03-16] MEDS: SODIUM CHLORIDE 0.9% 1,000 ML IV SCH (12:42)
[2021-03-16] MEDS: MAGNESIUM OXIDE 400 MG TAB PO SCH (12:42)
[2021-03-16] MEDS: PRAMIPEXOLE 1 MG TAB PO SCH (20:40)
[2021-03-16] MEDS: MELATONIN 5 MG TABLET PO SCH (20:41)
[2021-03-17] MEDS: NYSTATIN 100,000 UNIT/GM POWD 15 GM TOPICAL SCH ×3 (07:45→21:24)
[2021-03-17] MEDS: PANTOPRAZOLE 40 MG/10 ML VIAL IVP SCH (07:45)
[2021-03-17] MEDS: LEVOTHYROXINE 75 MCG TAB PO SCH (07:46)
[2021-03-17] MEDS: METOPROLOL TARTRATE 50 MG TAB PO SCH ×2 (07:46→15:29)
[2021-03-17] MEDS: polyethylene glycoL 3350 17 GM POWD.PACK PO SCH (07:46)
[2021-03-17] MEDS: DICYCLOMINE 10 MG CAP PO SCH ×4 (07:46→21:24)
[2021-03-17] MEDS: SULFAMETHOX-TMP 800-160MG 1 EACH TAB PO SCH ×2 (07:46→21:23)
[2021-03-17] MEDS: ESCITALOPRAM 10 MG TAB PO SCH (07:46)
[2021-03-17] MEDS: CARBIDOPA-LEVODOPA 25-100 MG 1 EACH TAB PO SCH ×4 (07:46→21:23)
[2021-03-17 09:25] LABS: African American GFR (CKD) 56.9 (60.0-200.0); Anion Gap 7.1 mmol/L (4.00-12.00); BUN/Creat Ratio 15.45 Ratio (12.00-20.00); Calcium 8.4 mg/dL (8.7-10.3); Carbon Dioxide 28.9 mmol/L (21.6-31.8); Non-African American GFR(CKD) 49.1 (60.0-200.0); Potassium 3.4 mmol/L (3.5-5.5)
[2021-03-17] MEDS ORDERED: LIDOCAINE 1% INJ 10MG/ML (20 ML MDV) ONE (12:20)
[2021-03-17] MEDS ORDERED: PROPOFOL 10 MG/ML 20 ML VIAL IV ONE (12:20)
[2021-03-17] MEDS ORDERED: IV FLUID CONTINUATION 1,000 ML IV ONE (12:24)
--- NOTE | 2021-03-17 12:27 | P.PCN ---
Date of Procedure: 03/17/21 Procedure(s) Performed: BRIEF HISTORY: Patient is a 75-year-old, pleasant, white female scheduled for an upper endoscopy as a part of evaluation of nausea vomiting and weight loss for the last 3-4 weeks duration. He also noted to have anemia and hemoglobin of 7.5 g/dL.. PROCEDURE PERFORMED: Esophagogastroduodenoscopy with biopsy. PREOPERATIVE DIAGNOSIS: Nausea vomiting/anemia and weight loss of 3-4 months duration IV sedation per anesthesia. PROCEDURE: After informed consent was obtained, the patient was brought into the endoscopy unit. IV sedation was administered by Anesthesia under continuous monitoring. Initially the Olympus GIF-140 video endoscope was inserted into the mouth. Esophagus intubated without any difficulty. It was gradually advanced into the stomach and duodenum and carefully examined. The bulb and the second part of the duodenum appeared normal. The scope at this time was withdrawn to the stomach, adequately insufflated with air, and upon careful examination, mucosa of the antrum had mild gastritis and biopsies were done from this area. There were no ulcers noted. The body, cardia and the fundus appeared normal. The scope was then withdrawn into the esophagus. The GE junction was located at 39 cm from the incisors. The esophagus appeared normal. There were no erosions or ulcerations seen and the patient tolerated the procedure well. IMPRESSION: 1. Mild antral gastritis. 2. No evidence of esophagitis or peptic ulcer disease. RECOMMENDATIONS: The findings of this examination were discussed with the patient . She was advised to follow with the biopsy results. She will continue with Protonix 40 mg daily and antiemetics as needed. Diet will be advanced as tolerated..
[2021-03-17] MEDS: MAGNESIUM OXIDE 400 MG TAB PO SCH (12:49)
[2021-03-17] MEDS: ONDANSETRON 4 MG/2 ML VIAL IVP PRN ×2 (13:44→20:52)
[2021-03-17] MEDS ORDERED: Magnesium Replacement Protocol 1 EACH MISC MISCELLANE PRN (14:51)
[2021-03-17] MEDS: MAGNESIUM SULFATE-D5W PMX 1 GM in DEXTROSE/WATER 1 100ML.BAG IVPB SCH ×2 (15:26→17:14)
--- NOTE | 2021-03-17 15:53 | P.PN ---
Subjective Progress Note Date: 03/17/21 This is a 75-year-old female with past medical history of UTI Strep agalactiae - (group b) with Pyelonephritis, severe right hydronephrosis with right ureteral stent insertion to 12/26/20,CVA with residual left-sided weakness, expressive aphasia/TIA, hyperlipidemia, hypertension, chronic renal failure, hypo thyroidism, obesity, anxiety, bipolar, depression, former nicotine dependence presented to the ER via EMS with complaints of nausea, vomiting, constipation, diffuse abdominal pain and weakness 2 weeks. Denies any fever or chills, cough, congestion, shortness of breath or chest pain. EKG reporting normal sinus rhythm, left ventricular hypertrophy, possible lateral infarct, age undetermined, similar to prior EKG as per ER review.Reports no bowel movement in 2 days .Vague historian.VSS. CT of abdomen and pelvis reporting bilateral hydronephrosis more severe in the right side, right ureteral stent that appears to be in good position but no change in the right-sided hydronephrosis compared to prior exam before the stent possible stent malfunction with no obstructing calculus. Afebrile, and WBC 11, hemoglobin 9.8 platelets 224, chemistry panel unremarkable with the exception's BUN 44, creatinine 1.59, baseline 1, glucose 121, total bili and LFTs within normal limits with the exception of AST minimally low at 12. Lactic acid 0.9. UA reported few bacteria, many WBC clumps, greater than 182 WBCs large leukocytes negative for bilirubin, moderate blood, trace ketones 2+ protein. Influenza type A and B, Sars/Covid not detected. Received a liter fluid bolus, morphine for pain in the ER. Urology consulted. Urine culture in progress. 03/12/2021 sitting up in bed, diet intake poor ,reporting no nausea or vomiting. Positive bowel movement last night-reports diarrhea. Complains of right lower quadrant abdominal pain. Maintained on Rocephin, urine culture reporting gram-negative bacilli. Afebrile. Labs pending. 03/14/2021 Maintained on antibiotics as per urology for UTI with Enterobacter aerogenes. Renal function at baseline, creatinine 1.06. Hemoglobin 7.3. Persistent nausea with clear emesis. Right lower quadrant abdominal pain. T-max 99.1, normal WBC. Potassium 3.5. 03/17/2021 evaluated by GI, scheduled for EGD today. NPO. Continues to complain of right lower quadrant abdominal pain, positive nausea. Potassium 3.4. Denies chest pain, palpitations. Dystonia resolved. T-max 99.1. Objective - Vital Signs Vital signs: Vital Signs Temp 98.8 F 03/17/21 04:17 Pulse 71 03/17/21 04:17 Resp 14 03/17/21 04:17 BP 104/63 03/17/21 04:17 Pulse Ox 96 03/17/21 04:17 Intake & Output 03/16/21 03/17/21 03/17/21 18:59 06:59 18:59 Intake Total 200 Balance 200 Intake: Intake, IV Titration 200 Amount Sodium Chloride 0.9% 1, 200 000 ml @ 50 mls/hr IV . Q20H [facility] Rx#:[id number] Other: Voiding Method Diaper Diaper Diaper Incontinent Incontinent Incontinent # Voids 1 - Exam - Exam General: Sitting up in bed, awake, alert and oriented times 3,expressive aphasia HEENT: PERRL. EOMI. No pharyngeal erythema or exudate. Neck: Supple, no JVD Cardiac: Heart regular in rate and rhythm. No S3. No S4. No clicks, rubs. No murmur. Lungs: Clear breath sounds, no rhonchi, bilateral bases diminished. Abdomen: Soft, nondistended, mild diffuse tenderness, no guarding, no rigid ity.No mass palpable, No organomegaly. Positive bowel sounds Extremities: trace edema no cyanosis no claudication normal pulses. Skin: Warm and dry, flaky, yeast rash in groin folds , under breasts Neurologic: [No lateralizing deficits. CN II - XII grossly intact.Speech consistent with expressive aphasia, chronic residual left-sided weakness. ] - Labs CBC & Chem 7: 03/16/21 05:56 03/17/21 05:00 Labs: Abnormal Lab Results - Last 24 Hours (Table) 03/17/21 Range/Units 05:00 Potassium 3.4 L (3.5-5.5) mmol/L Est GFR (CKD-EPI)AfAm 56.9 L (60.0-200.0) Est GFR (CKD-EPI)NonAf 49.1 L (60.0-200.0) Glucose 114 H (70-110) mg/dL Calcium 8.4 L (8.7-10.3) mg/dL Assessment and Plan Assessment: Abdominal pain with nausea ,vomiting . EGD reportedly mild antral gastritis, biopsies obtained. Acute UTI with Enterobacter aerogenes Acute pyelonephritis Bilateral hydronephrosis more severe in the right side, right ureteral stent appears to be in good position but no change in the right-sided hydronephrosis compared to prior exam before the stent, possible stent malfunction with no obstructing calculus reported per ct. Acute on chronic renal failure stage III, secondary to dehydration Dehydration secondary to decreased oral intake History of UTI Strep agalactiae - (group b) with Pyelonephritis, severe right hydronephrosis, cystoscopy with right ureteral stent insertion 01/06/21, no tumors or foreign body seen, evidence of cystitis reported. 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 Hypothyroidism Bipolar disorder Obesity, BMI 32.6 Dystonia, resolved. Plan: Continue on current medication regime monitoring and symptomatic treatment. Continue IV fluid hydration and IV antibiotics. Potassium 3.4, Potassium replacement as per protocol previously ordered-communication sent, magnesium level ordered. Repeat potassium level this afternoon at 1700, post supplementation. EGD reportedly mild antral gastritis, no evidence of esophagitis or peptic ulcer disease. Biopsies obtained. PPI daily along with anti-emetics to continue/recommended. Patient continues to have persistent right lower quadrant pain, surgery consulted for further evaluation. Discharge planning in progress for subacute rehab tomorrow. Discussed with Patricio, who is agreeable with subacute rehab as at this time patient is a 2 person assist to stand and he is unable to physically assist her at this level. Further re-discussion tomorrow with patient. The impression and plan of care has been dictated as directed. : I performed a history and examination of this patient, discussed the same with the dictator. I agree with the dictator's note ,documented as a scribe. Any additional findings or plans will be noted.
[2021-03-17] MEDS: SODIUM CHLORIDE 0.9% 1,000 ML IV SCH (18:18)
[2021-03-17] MEDS: MELATONIN 5 MG TABLET PO SCH (21:23)
[2021-03-17] MEDS: PRAMIPEXOLE 1 MG TAB PO SCH (21:23)
[2021-03-18] MEDS: ONDANSETRON 4 MG/2 ML VIAL IVP PRN ×3 (01:57→19:23)
[2021-03-18 05:42] LABS: Anisocytosis Slight; Basophils % (A) 0 %; Eosinophils # (A) 0.2 k/uL (0-0.7); Eosinophils % (A) 6 %; HCT 21.6 % (34.0-46.0); HGB 7.1 gm/dL (11.4-16.0); Hypochromasia Slight; Lymphocytes # (A) 0.4 k/uL (1.0-4.8); Lymphocytes % (A) 10 %; MCH 28.4 pg (25.0-35.0); MCV 86.1 fL (80.0-100.0); Mean Platelet Volume 8.9; Monocytes # (A) 0.3 k/uL (0-1.0); Monocytes % (A) 6 %; Neutrophils # (A) 3.2 k/uL (1.3-7.7); Neutrophils % (A) 77 %; Platelet Count 119 k/uL (150-450); RBC 2.51 m/uL (3.80-5.40); RDW 16.4 % (11.5-15.5); WBC 4.2 k/uL (3.8-10.6)
[2021-03-18] MEDS: CARBIDOPA-LEVODOPA 25-100 MG 1 EACH TAB PO SCH ×4 (07:39→20:03)
[2021-03-18] MEDS: ESCITALOPRAM 10 MG TAB PO SCH (07:39)
[2021-03-18] MEDS: polyethylene glycoL 3350 17 GM POWD.PACK PO SCH (07:40)
[2021-03-18] MEDS: LEVOTHYROXINE 75 MCG TAB PO SCH (07:40)
[2021-03-18] MEDS: DICYCLOMINE 10 MG CAP PO SCH ×4 (07:40→20:03)
[2021-03-18] MEDS: SULFAMETHOX-TMP 800-160MG 1 EACH TAB PO SCH ×2 (07:40→20:03)
[2021-03-18] MEDS: PANTOPRAZOLE 40 MG/10 ML VIAL IVP SCH (07:55)
[2021-03-18] MEDS: NYSTATIN 100,000 UNIT/GM POWD 15 GM TOPICAL SCH ×3 (07:56→21:14)
[2021-03-18] MEDS ORDERED: PROCHLORPERAZINE INJ 10 MG/2 ML VIAL IVP PRN (09:13)
[2021-03-18 10:31] LABS: African American GFR (CKD) 63.8 (60.0-200.0); Anion Gap 7.6 mmol/L (4.00-12.00); Calcium 8.3 mg/dL (8.7-10.3); Carbon Dioxide 28.4 mmol/L (21.6-31.8); Non-African American GFR(CKD) 55.1 (60.0-200.0); Potassium 3.5 mmol/L (3.5-5.5)
--- NOTE | 2021-03-18 10:34 | P.GSCN ---
History of Present Illness Consult date: 03/18/21 History of present illness: This is a 75-year-old female with past medical history of UTI Strep agalactiae - (group b) with Pyelonephritis, severe right hydronephrosis with right ureteral stent insertion to 12/26/20,CVA with residual left-sided weakness, expressive aphasia/TIA, hyperlipidemia, hypertension, chronic renal failure, hypothyroidism, obesity, anxiety, bipolar, depression, former nicotine dependence presented to the ER via EMS with complaints of nausea, vomiting, constipation, diffuse abdominal pain and weakness 2 weeks. She is a poor historian. Most history was taken from nursing staff and medical chart. Denies any fever or chills, cough, congestion, shortness of breath or chest pain. She has been evaluated during this admission by urology with ureteral stent noted to be in appropriate position. Due to complaints of nausea and vomiting for m tiple months, upper endoscopy was performed with no significant acute finding. Patient was continuing to have abdominal pain, specifically in the right lower quadrant and surgery consultation was placed. Today, patient complains of diffuse abdominal pain. According to nursing, patient has been dry heaving for the past 24 hours with mild amount of bilious emesis. No significant bowel function is noted. The patient did have a dystonic reaction to Reglan.n she is receiving Zofran [id number] at this point. Review of Systems ROS unobtainable: due to mental status 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 No adult children. However they fostered 37 children. 2 pet dogs in the home. No international travel. No experience Smoking Status: Former smoker Past Alcohol Use History: None Reported Past Drug Use History: None Reported - Past Family History Father Family Medical History: No Reported History Medications and Allergies Home Medications Medication Instructions Recorded Confirmed Type Escitalopram Oxalate [Lexapro] 10 mg PO DAILY@0800 09/07/14 03/10/21 History Omeprazole [PriLOSEC] 20 mg PO BID@0800,1600 09/07/14 03/10/21 History Pravastatin Sodium [Pravachol] 80 mg PO HS@199909/07/14 03/10/21 History Ergocalciferol (Vitamin D2) 50,000 unit PO Q14D 05/19/19 03/10/21 History [Drisdol (50,000 Iu)] Levothyroxine Sodium [Synthroid] 150 mcg PO DAILY@0800 05/19/19 03/10/21 History Pramipexole [Mirapex] 1 mg PO HS@199905/19/19 03/10/21 History calcitrioL [Rocaltrol] 0.25 mcg PO SUMOTUWETHFR 05/19/19 03/10/21 History Carbidopa-Levodopa 25-100 mg 1 tab PO TID@0800,1200,199912/24/20 03/10/21 History [Sinemet 25-100 mg] Carbidopa-Levodopa 25-100 mg 2 tab PO AC-SUPPER@159912/24/20 03/10/21 History [Sinemet 25-100 mg] Metoprolol Tartrate [Lopressor] 50 mg PO BID@0800,1600 12/24/20 03/10/21 History Potassium Chloride ER [K-Dur 20] 20 meq PO DAILY@1200 12/24/20 03/10/21 History polyethylene glycoL 3350 [Miralax] 17 gm PO DAILY PRN #0 powd.pack 01/01/21 03/10/21 Rx Sennosides-Docusate Sodium 1 tab PO BID@1199,199901/24/21 03/10/21 History [Senokot-S] Ascorbic Acid [Vitamin C] 1,000 mg PO DAILY@1200 03/10/21 03/10/21 History Magnesium Oxide [Mag-Ox] 400 mg PO DAILY@1200 03/10/21 03/10/21 History Methyl Salicylate/Menthol 1 patch TOPICAL DAILY PRN 03/10/21 03/10/21 History [Salonpas Patch] Acetaminophen Tab [Tylenol] 650 mg PO Q6HR PRN tab 03/18/21 Rx Dicyclomine [Bentyl] 10 mg PO QID cap 03/18/21 Rx Melatonin 5 mg PO HS tablet 03/18/21 Rx Nystatin 100,000 Unit/gm Powd 1 applic TOPICAL TID applic 03/18/21 Rx [Mycostatin Powder] Allergies Allergy/AdvReac Type Severity Reaction Status Date / Time amiodarone [From Cordarone] Allergy Anaphylaxis Verified 03/10/21 21:13 cyclobenzaprine Allergy Rash/Hives Verified 03/10/21 21:13 [From Flexeril] metoclopramide AdvReac Severe Unknown Verified 03/16/21 12:41 Surgical - Exam Osteopathic Statement: *. No significant issues noted on an osteopathic struc tural exam other than those noted in the History and Physical/Consult. Vital Signs Temp Pulse Resp BP Pulse Ox 98.1 F 80 17 150/71 98 03/10/21 16:16 03/10/21 16:16 03/10/21 16:16 03/10/21 16:16 03/10/21 16:16 - General no distress - Eyes PERRL - Neck trachea midline - Abdomen Soft, generalized palpable tenderness, no rebound, no guarding Results - Labs 03/18/21 05:04 03/17/21 16:43 Abnormal Lab Results - Last 24 Hours (Table) 03/17/21 03/18/21 Range/Units 05:00 05:04 RBC 2.51 L (3.80-5.40) m/uL Hgb 7.1 L (11.4-16.0) gm/dL Hct 21.6 L (34.0-46.0) % RDW 16.4 H (11.5-15.5) % Plt Count 119 L (150-450) k/uL Lymphocytes # 0.4 L (1.0-4.8) k/uL Magnesium 1.5 L (1.6-2.3) mg/dL Diabetes panel 03/17/21 Range/Units 16:43 Potassium 3.6 (3.5-5.1) mmol/L Pituitary panel 03/17/21 Range/Units 16:43 Potassium 3.6 (3.5-5.1) mmol/L Adrenal panel 03/17/21 Range/Units 16:43 Potassium 3.6 (3.5-5.1) mmol/L Assessment and Plan Plan: 75-year-old female with diffuse abdominal pain, nausea and vomiting episodes. Upper endoscopy report was reviewed with no significant acute finding. Patient continues to have dry heaving during my exam. Patient did not tolerate Reglan and did have a dystonic reaction. We will plan for Compazine in addition to the Zofran that the patient is already receiving 4 antiasthmatic purposes. Based on history, patient could have an ileus. There is no evidence of leukocytosis at this time. We will obtain a repeat CT of the abdomen and pelvis for further evaluation. At this point, she appears nonsurgical. We will continue to follow after CT is performed and provide further recommendations.
[2021-03-18] MEDS: METOPROLOL TARTRATE 50 MG TAB PO SCH ×2 (11:12→15:43)
[2021-03-18] MEDS: MAGNESIUM OXIDE 400 MG TAB PO SCH (12:41)
--- NOTE | 2021-03-18 13:05 | P.PN ---
Subjective Progress Note Date: 03/18/21 Principal diagnosis: Nausea and vomiting Patient is seen and examined sitting up in bed. She is status post EGD yesterday with findings of mild antral gastritis. When asked how she is feeling she states "crappy" she states she continues to have dry heaves and abdominal pain. He had side effects from the rectum with dystonic movements in his initial EGD was postponed. Surgical services has been consulted for abdominal pain and has ordered a CT of the abdomen. She was also started on IV Compazine. Denies any coffee-ground emesis, melena or hematochezia. Objective - Vital Signs Vital signs: Vital Signs Temp 97.8 F 03/18/21 04:23 Pulse 60 03/18/21 04:23 Resp 18 03/18/21 04:23 BP 116/65 03/18/21 04:23 Pulse Ox 97 03/18/21 04:23 Intake & Output 03/17/21 03/18/21 03/18/21 18:59 06:59 18:59 Intake Total 1350 Balance 1350 Weight 79.379 kg Intake: IV 50 Intake, IV Titration 700 Amount Magnesium Sulfate-D5w Pmx 100 1 gm In Dextrose/Water 1 100ml.bag @ 100 mls/hr IVPB Q1H [facility] Rx#: [id number] Sodium Chloride 0.9% 1, 600 000 ml @ 50 mls/hr IV . Q20H [facility] Rx#:[id number] Oral 600 Other: Voiding Method Diaper Diaper Diaper Incontinent Incontinent Incontinent # Voids 2 1 - Exam General appearance: The patient is alert, oriented, appears in no acute distress. HET: Head is normocephalic and atraumatic. Conjunctiva pink. Sclera anicteric. Neck: Supple without lymphadenopathy. Abdomen: Soft, diffuse abdominal pain, nondistended with bowel sounds. No guarding or rigidity. Extremities: Normal skin color and turgor. No pedal edema Skin: No rashes, no jaundice Neurological: No focal deficits. Alert and oriented 3. - Labs CBC & Chem 7: 03/18/21 05:04 03/18/21 05:04 Labs: Abnormal Lab Results - Last 24 Hours (Table) 03/17/21 03/18/21 03/18/21 Range/Units 05:00 05:04 05:04 RBC 2.51 L (3.80-5.40) m/uL Hgb 7.1 L (11.4-16.0) gm/dL Hct 21.6 L (34.0-46.0) % RDW 16.4 H (11.5-15.5) % Plt Count 119 L (150-450) k/uL Lymphocytes # 0.4 L (1.0-4.8) k/uL Est GFR (CKD-EPI)NonAf 55.1 L (60.0-200.0) Calcium 8.3 L (8.7-10.3) mg/dL Magnesium 1.5 L (1.6-2.3) mg/dL Assessment and Plan (1) Abdominal pain Narrative/Plan: The sella and a 5-year-old pleasant female who presented with abdominal pain as stated with nausea and vomiting for the last 3-4 weeks duration. The patient underwent an EGD yesterday to rule out peptic ulcer disease, with findings of only mild gastritis. Current Visit: Yes Status: Acute Code(s): R10.9 - UNSPECIFIED ABDOMINAL PAIN SNOMED Code(s): 69990984 (2) Nausea and vomiting Current Visit: Yes Status: Acute Code(s): R11.2 - NAUSEA WITH VOMITING, UNSPECIFIED SNOMED Code(s): 42341925 (3) Normocytic anemia Narrative/Plan: This is a patient with history of normocytic anemia with current hemoglobin of 7.1 which is stable and clinically no active bleeding. Current Visit: Yes Status: Acute Code(s): D64.9 - ANEMIA, UNSPECIFIED SNOMED Code(s): 736662497 (4) History of CVA (cerebrovascular accident) Current Visit: No Status: Acute Code(s): Z86.73 - PRSNL HX OF TIA (TIA), AND CEREB INFRC W/O RESID DEFICITS SNOMED Code(s): 603421776 Plan: 1. Continue symptomatic and supportive care 2. Continue Protonix 3. Continue antiemetics with Zofran and Compazine 4. Patient is status post EGD with findings of mild antral gastritis 5. Surgical services has been consulted, CT of the abdomen ordered and pending Thank you for this consultation, we will continue to follow Dr. Julio Pond I agree with the dictator's note, documented as a scribe by Lesly Hutson
--- NOTE | 2021-03-18 13:39 | P.PN ---
Subjective Progress Note Date: 03/18/21 This is a 75-year-old female with past medical history of UTI Strep agalactiae - (group b) with Pyelonephritis, severe right hydronephrosis with right ureteral stent insertion to 12/26/20,CVA with residual left-sided weakness, expressive aphasia/TIA, hyperlipidemia, hypertension, chronic renal failure, hypo thyroidism, obesity, anxiety, bipolar, depression, former nicotine dependence presented to the ER via EMS with complaints of nausea, vomiting, constipation, diffuse abdominal pain and weakness 2 weeks. Denies any fever or chills, cough, congestion, shortness of breath or chest pain. EKG reporting normal sinus rhythm, left ventricular hypertrophy, possible lateral infarct, age undetermined, similar to prior EKG as per ER review.Reports no bowel movement in 2 days .Vague historian.VSS. CT of abdomen and pelvis reporting bilateral hydronephrosis more severe in the right side, right ureteral stent that appears to be in good position but no change in the right-sided hydronephrosis compared to prior exam before the stent possible stent malfunction with no obstructing calculus. Afebrile, and WBC 11, hemoglobin 9.8 platelets 224, chemistry panel unremarkable with the exception's BUN 44, creatinine 1.59, baseline 1, glucose 121, total bili and LFTs within normal limits with the exception of AST minimally low at 12. Lactic acid 0.9. UA reported few bacteria, many WBC clumps, greater than 182 WBCs large leukocytes negative for bilirubin, moderate blood, trace ketones 2+ protein. Influenza type A and B, Sars/Covid not detected. Received a liter fluid bolus, morphine for pain in the ER. Urology consulted. Urine culture in progress. 03/12/2021 sitting up in bed, diet intake poor ,reporting no nausea or vomiting. Positive bowel movement last night-reports diarrhea. Complains of right lower quadrant abdominal pain. Maintained on Rocephin, urine culture reporting gram-negative bacilli. Afebrile. Labs pending. 03/14/2021 Maintained on antibiotics as per urology for UTI with Enterobacter aerogenes. Renal function at baseline, creatinine 1.06. Hemoglobin 7.3. Persistent nausea with clear emesis. Right lower quadrant abdominal pain. T-max 99.1, normal WBC. Potassium 3.5. 03/17/2021 evaluated by GI, scheduled for EGD today. NPO. Continues to complain of right lower quadrant abdominal pain, positive nausea. Potassium 3.4. Denies chest pain, palpitations. Dystonia resolved. T-max 99.1. 03/18/2021 completed EGD yesterday reporting mild antral gastritis, biopsies obtained , no peptic ulcer disease, no evidence of esophagitis . Continues on PPI .Hemoglobin decreased to 7.1, platelets down to 119. Receiving Zofran and Bentyl, persistent nausea with minimal bilious emesis. Complains of abdominal pain, mostly right lower quadrant to suprapubic. Sodium 141. Received potassium supplementation yesterday currently at 3.5. Creatinine 1. Evaluated by surgery ,repeat CT of the abdomen and pelvis ordered. Afebrile, normal WBC. Objective - Vital Signs Vital signs: Vital Signs Temp 98.3 F 03/18/21 11:24 Pulse 66 03/18/21 11:24 Resp 16 03/18/21 11:24 BP 145/72 03/18/21 11:24 Pulse Ox 97 03/18/21 11:24 Intake & Output 03/17/21 03/18/21 03/18/21 18:59 06:59 18:59 Intake Total 1350 Balance 1350 Weight 79.379 kg Intake: IV 50 Intake, IV Titration 700 Amount Magnesium Sulfate-D5w Pmx 100 1 gm In Dextrose/Water 1 100ml.bag @ 100 mls/hr IVPB Q1H [facility] Rx#: [id number] Sodium Chloride 0.9% 1, 600 000 ml @ 50 mls/hr IV . Q20H [facility] Rx#:[id number] Oral 600 Other: Voiding Method Diaper Diaper Diaper Incontinent Incontinent Incontinent # Voids 2 1 - Exam - Exam General: Sitting up in bed, awake, alert and oriented times 3,expressive aphasia, dry heaving HEENT: PERRL. EOMI. No pharyngeal erythema or exudate. Neck: Supple, no JVD Cardiac: Heart regular in rate and rhythm. No S3. No S4. No clicks, rubs. No murmur. Lungs: Clear breath sounds, no rhonchi, bilateral bases diminished. Abdomen: Soft, distended, mild diffuse tenderness, no guarding, no rigidity.No mass palpable, No organomegaly. Positive bowel sounds Extremities: trace edema no cyanosis no claudication normal pulses. Skin: Warm and dry, flaky, yeast rash in groin folds , under breasts Neurologic: [No lateralizing deficits. CN II - XII grossly intact.Speech consistent with expressive aphasia, chronic residual left-sided weakness. ] - Labs CBC & Chem 7: 03/18/21 05:04 03/18/21 05:04 Labs: Abnormal Lab Results - Last 24 Hours (Table) 03/17/21 03/18/21 03/18/21 Range/Units 05:00 05:04 05:04 RBC 2.51 L (3.80-5.40) m/uL Hgb 7.1 L (11.4-16.0) gm/dL Hct 21.6 L (34.0-46.0) % RDW 16.4 H (11.5-15.5) % Plt Count 119 L (150-450) k/uL Lymphocytes # 0.4 L (1.0-4.8) k/uL Est GFR (CKD-EPI)NonAf 55.1 L (60.0-200.0) Calcium 8.3 L (8.7-10.3) mg/dL Magnesium 1.5 L (1.6-2.3) mg/dL Assessment and Plan Assessment: Abdominal pain with nausea ,vomiting . EGD reportedly mild antral gastritis, biopsies obtained. Possible ileus, repeat CT pending Acute UTI with Enterobacter aerogenes Acute pyelonephritis Bilateral hydronephrosis more severe in the right side, right ureteral stent appears to be in good position but no change in the right-sided hydronephrosis compared to prior exam before the stent, possible stent malfunction with no obstructing calculus reported per ct. Acute on chronic renal failure stage III, secondary to dehydration Dehydration secondary to decreased oral intake History of UTI Strep agalactiae - (group b) with Pyelonephritis, severe right hydronephrosis, cystoscopy with right ureteral stent insertion 01/06/21, no tumors or foreign body seen, evidence of cystitis reported. 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 Hypothyroidism Bipolar disorder Obesity, BMI 32.6 Dystonia, resolved. Plan: Continue on current medication regime monitoring and symptomatic treatment. Magnesium supplemented yesterday for 1.5 level, follow-up labs pending. Continue IV fluid hydration and IV antibiotics. Continue on PPI with Compazine added to anti-emetic med regimen per surgery. Repeat CT of abdomen and pelvis pending . Discussed subacute rehab at discharge, patient in agreement with. The impression and plan of care has been dictated as directed. : I performed a history and examination of this patient, discussed the same with the dictator. I agree with the dictator's note ,documented as a scribe. Any additional findings or plans will be noted.
--- NOTE | 2021-03-18 15:55 | CT ---
EXAMINATION TYPE: CT abdomen pelvis w con DATE OF EXAM: 03/18/2021 COMPARISON: 03/10/2021 INDICATION: Acute abdomen pain DLP: 1919 mGycm, Automated exposure control for dose reduction was used. CONTRAST: 80 mL of Isovue 300. Study performed without Oral Contrast TECHNIQUE: Axial images were obtained from above the diaphragm to the pubic rami in the axial plane a t 5 mm thick sections. Reconstructed images are reviewed on the computer in the coronal plane. FINDINGS: Limited CT sections are obtained the lung bases. There is interval development of a small bilateral pleural effusion. Some minimal adjacent compressive atelectasis present. Coronary artery calcificatio n is present. CT ABDOMEN: Liver: Normal Spleen: Normal Pancreas: Normal Adrenal glands: The adrenal glands are normal. Gallbladder: Surgically absent. Kidneys: No masses are evident. There is marked right hydronephrosis. A ureteral stent is evident on the right. This extends into the urinary bladder. Left renal cysts at the inferior pole. There is del ayed excretion of contrast from the right kidney compared to the left. Delayed images were obtained through the kidneys, which remain asymmetric and excretion Aorta: Vascular calcification is within the aorta. Inferior vena cava: Normal. CT PELVIS: Loops of bowel within the abdomen and pelvis are normal. The study is performed without oral cont rast limiting bowel evaluation. Fecal debris is within the colon. Appendix: Normal as visualized. Urinary bladder: Normal. The right ureteral stent is evident. Genitourinary structures: Uterus and ovaries are not identified. Osseous structures: No suspicious lytic or sclerotic lesions. IMPRESSIONS: 1. Persistent marked hydronephrosis right kidney with delayed excretion on the right compared to the left. Ureteral stent remains present on the right. 2. Interval development of small bilateral pleural effusions.
[2021-03-18] MEDS: MELATONIN 5 MG TABLET PO SCH (20:03)
[2021-03-18] MEDS: PRAMIPEXOLE 1 MG TAB PO SCH (20:03)
[2021-03-18] MEDS: SODIUM CHLORIDE 0.9% 1,000 ML IV SCH ×2 (21:13→21:14)
[2021-03-19] MEDS: ONDANSETRON 4 MG/2 ML VIAL IVP PRN ×2 (03:54→12:54)
[2021-03-19] MEDS: SODIUM CHLORIDE 0.9% 1,000 ML IV SCH ×2 (06:19→18:00)
[2021-03-19] MEDS: LEVOTHYROXINE 75 MCG TAB PO SCH (09:22)
[2021-03-19] MEDS: METOPROLOL TARTRATE 50 MG TAB PO SCH ×2 (09:22→16:00)
[2021-03-19] MEDS: CARBIDOPA-LEVODOPA 25-100 MG 1 EACH TAB PO SCH ×4 (09:22→20:41)
[2021-03-19] MEDS: NYSTATIN 100,000 UNIT/GM POWD 15 GM TOPICAL SCH ×3 (09:23→20:41)
[2021-03-19] MEDS: SULFAMETHOX-TMP 800-160MG 1 EACH TAB PO SCH ×2 (09:23→20:40)
[2021-03-19] MEDS: ESCITALOPRAM 10 MG TAB PO SCH (09:23)
[2021-03-19] MEDS: PANTOPRAZOLE 40 MG/10 ML VIAL IVP SCH (09:23)
[2021-03-19] MEDS: polyethylene glycoL 3350 17 GM POWD.PACK PO SCH (09:23)
[2021-03-19] MEDS: DICYCLOMINE 10 MG CAP PO SCH ×4 (09:23→20:41)
--- NOTE | 2021-03-19 10:33 | P.PN ---
Subjective Progress Note Date: 03/19/21 Patient seen and examined at bedside. States abdominal pain is improved. Still having some nausea and vomiting episodes, however less than yesterday. Objective - Vital Signs Vital signs: Vital Signs Temp 98.4 F 03/19/21 04:21 Pulse 68 03/19/21 04:21 Resp 14 03/19/21 04:21 BP 135/72 03/19/21 04:21 Pulse Ox 98 03/19/21 04:21 Intake & Output 03/18/21 03/19/21 03/19/21 18:59 06:59 18:59 Intake Total 1300 600 Output Total 3 Balance 1297 600 Intake: Intake, IV Titration 600 600 Amount Sodium Chloride 0.9% 1, 600 600 000 ml @ 100 mls/hr IV . Q10H [facility] Rx#:[id number] Oral 700 Output: Emesis 3 Other: Voiding Method Diaper Diaper Incontinent Incontinent # Voids 3 1 - Constitutional General appearance: Present: cooperative - Respiratory Details: No difficulty with respiration - Gastrointestinal Gastrointestinal Comment(s): Soft, nontender, mildly distended, no rebound, no guarding - Labs CBC & Chem 7: 03/18/21 05:04 03/18/21 05:04 Labs: Abnormal Lab Results - Last 24 Hours (Table) 03/18/21 Range/Units 05:04 Est GFR (CKD-EPI)NonAf 55.1 L (60.0-200.0) Calcium 8.3 L (8.7-10.3) mg/dL Assessment and Plan Plan: Patient has somewhat improved with nausea and vomiting. Compazine dose is lower dose, I did discuss with primary team and dosage can be increased based on the patient's symptoms and based on patient's tolerance of the medication. CT of the abdomen and pelvis was reviewed with no obvious abnormality of the bowel. It was done without oral contrast due to the patient's nausea and vomiting. Appendix appeared normal. At this point, it does not appear that there is any surgical intervention required. Would recommend continued antiemetic for nausea and vomiting control. Hydronephrosis is still present on CT and is being addressed by urology.
--- NOTE | 2021-03-19 10:48 | P.DS ---
Providers Date of admission: 03/10/21 19:24 Expected date of discharge: 03/19/21 Attending physician: Cameron Nelson Consults: 03/10/21 19:12 Consult Physician Urgent Consulting Provider: Boni Castaneda Consult Reason/Comments: Nausea and vomiting, abdominal pain, possible stent malfunction Do you want consulting provider notified?: Already Contacted 03/14/21 13:47 Consult Physician Routine Consulting Provider: Krystina Pond Consult Reason/Comments: Persistent nausea,vomiting Do you want consulting provider notified?: Yes 03/15/21 18:41 Consult Physician Routine Consulting Provider: Robson Brown Consult Reason/Comments: Dystonia Do you want consulting provider notified?: Yes 03/17/21 15:19 Consult Physician Routine Consulting Provider: Amita Gutierrez Consult Reason/Comments: Ongoing RLQ abd pain,?appy Do you want consulting provider notified?: Yes Primary care physician: Cameron Nelson Hospital Course: Final diagnoses Assessment: Final Diagnoses: Abdominal pain with nausea ,vomiting . EGD reportedly mild antral gastritis, biopsies obtained. Possible ileus, repeat CT pending Acute UTI with Enterobacter aerogenes Acute pyelonephritis Bilateral hydronephrosis more severe in the right side, right ureteral stent appears to be in good position but no change in the right-sided hydronephrosis compared to prior exam before the stent, possible stent malfunction with no obstructing calculus reported per ct. Acute on chronic renal failure stage III, secondary to dehydration Dehydration secondary to decreased oral intake History of UTI Strep agalactiae - (group b) with Pyelonephritis, severe right hydronephrosis, cystoscopy with right ureteral stent insertion 01/06/21, no tumors or foreign body seen, evidence of cystitis reported. 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 Hypothyroidism Bipolar disorder Obesity, BMI 32.6 Dystonia, resolved. Hospital course:This is a 75-year-old female with past medical history of UTI Strep agalactiae - (group b) with Pyelonephritis, severe right hydronephrosis with right ureteral stent insertion to 12/26/20,CVA with residual left-sided weakness, expressive aphasia/TIA, hyperlipidemia, hypertension, chronic renal failure, hypothyroidism, obesity, anxiety, bipolar, depression, former nicotine dependence presented to the ER via EMS with complaints of nausea, vomiting, constipation, diffuse abdominal pain and weakness 2 weeks. Denies any fever or chills, cough, congestion, shortness of breath or chest pain. EKG reporting normal sinus rhythm, left ventricular hypertrophy, possible lateral infarct, age undetermined, similar to prior EKG as per ER review.Reports no bowel movement in 2 days .Vague historian.VSS. CT of abdomen and pelvis reporting bilateral hydronephrosis more severe in the right side, right ureteral stent that appears to be in good position but no change in the right-sided hydronephrosis compared to prior exam before the stent possible stent malfunction with no obstructing calculus. Afebrile, and WBC 11, hemoglobin 9.8 platelets 224, chemistry panel unremarkable with the exception's BUN 44, creatinine 1.59, baseline 1, glucose 121, total bili and LFTs within normal limits with the exception of AST minimally low at 12. Lactic acid 0.9. UA reported few bacteria, many WBC cl umps, greater than 182 WBCs large leukocytes negative for bilirubin, moderate blood, trace ketones 2+ protein. Influenza type A and B, Sars/Covid not detected. Received a liter fluid bolus, morphine for pain in the ER. Urology consulted. Urine culture in progress. 03/12/2021 sitting up in bed, diet intake poor ,reporting no nausea or vomiting. Positive bowel movement last night-reports diarrhea. Complains of right lower quadrant abdominal pain. Maintained on Rocephin, urine culture reporting gram- negative bacilli. Afebrile. Labs pending. 03/14/2021 Maintained on antibiotics as per urology for UTI with Enterobacter aerogenes. Renal function at baseline, creatinine 1.06. Hemoglobin 7.3. Persistent nausea with clear emesis. Right lower quadrant abdominal pain. T-max 99.1, normal WBC. Potassium 3.5. 03/17/2021 evaluated by GI, scheduled for EGD today. NPO. Continues to complain of right lower quadrant abdominal pain, positive nausea. Potassium 3.4. Denies chest pain, palpitations. Dystonia resolved. T-max 99.1. 03/18/2021 completed EGD yesterday reporting mild antral gastritis, biopsies obtained , no peptic ulcer disease, no evidence of esophagitis . Continues on PPI .Hemoglobin decreased to 7.1, platelets down to 119. Receiving Zofran and Bentyl, persistent nausea with minimal bilious emesis. Complains of abdominal pain, mostly right lower quadrant to suprapubic. Sodium 141. Received potassium supplementation yesterday currently at 3.5. Creatinine 1. Evaluated by surgery ,repeat CT of the abdomen and pelvis ordered. Afebrile, normal WBC. Repeat CT of the abdomen and pelvis reviewed by surgery, no abnormality of bowel noted, normal appendix, no surgical intervention required at this time. Hydronephrosis present, following with urology. Outpatient right-sided diagnostic ureteroscopy recommended. To continue on antiemetics. Patient reports BM yesterday,feels better this morning, pain improved ,participating with physical therapy. No emesis. Labs pending. Significant clinical improvement. Patient will be discharged to [facility] subacute rehab today in a stable condition with guarded prognosis pending labs. The impression and plan of care has been dictated as directed. : I performed a history and examination of this patient, discussed the same with the dictator. I agree with the dictator's note ,documented as a scribe. Any additional findings or plans will be noted. Patient Condition at Discharge: Stable Plan - Discharge Summary New Discharge Prescriptions: New Dicyclomine [Bentyl] 10 mg PO QID cap Nystatin 100,000 Unit/gm Powd [Mycostatin Powder] 1 applic TOPICAL TID applic Acetaminophen Tab [Tylenol] 650 mg PO Q6HR PRN tab PRN Reason: Mild Pain Or Fever > 100.5 Ondansetron Odt [Zofran Odt] 4 mg PO Q8HR PRN #1 tab PRN Reason: Nausea Sulfamethox-Tmp 800-160Mg [Bactrim DS 800-160 mg] 1 each PO BID 2 Days #4 tab Melatonin 5 mg PO HS tablet Continue Escitalopram Oxalate [Lexapro] 10 mg PO DAILY@0800 Pravastatin Sodium [Pravachol] 80 mg PO HS@2000 Omeprazole [PriLOSEC] 20 mg PO BID@0800,1600 Levothyroxine Sodium [Synthroid] 150 mcg PO DAILY@0800 Pramipexole [Mirapex] 1 mg PO HS@2000 calcitrioL [Rocaltrol] 0.25 mcg PO SUMOTUWETHFR Ergocalciferol (Vitamin D2) [Drisdol (50,000 Iu)] 50,000 unit PO Q14D Metoprolol Tartrate [Lopressor] 50 mg PO BID@0800,1600 Potassium Chloride ER [K-Dur 20] 20 meq PO DAILY@1200 Carbidopa-Levodopa 25-100 mg [Sinemet 25-100 mg] 2 tab PO AC-SUPPER@1600 Carbidopa-Levodopa 25-100 mg [Sinemet 25-100 mg] 1 tab PO TID@0800,1200,1999 polyethylene glycoL 3350 [Miralax] 17 gm PO DAILY PRN #0 powd.pack PRN Reason: Constipation Sennosides-Docusate Sodium [Senokot-S] 1 tab PO BID@1200,2000 Ascorbic Acid [Vitamin C] 1,000 mg PO DAILY@1200 Magnesium Oxide [Mag-Ox] 400 mg PO DAILY@1200 Methyl Salicylate/Menthol [Salonpas Patch] 1 patch TOPICAL DAILY PRN PRN Reason: Pain Discontinued allopurinoL [Zyloprim] 100 mg PO BID@0800,1600 Triamterene/Hydrochlorothiazid [Triamterene-Hctz 37.5-25 mg Tb] 1 tab PO DAILY@1200 amLODIPine [Norvasc] 10 mg PO DAILY@0800 Loperamide [Imodium] 2 mg PO DAILY PRN PRN Reason: Diarrhea Acetaminophen Tab [Tylenol] 325 mg PO Q6H PRN PRN Reason: Pain Discharge Medication List Escitalopram Oxalate [Lexapro] 10 mg PO DAILY@0800 09/07/14 [History] Omeprazole [PriLOSEC] 20 mg PO BID@0800,1600 09/07/14 [History] Pravastatin Sodium [Pravachol] 80 mg PO HS@199909/07/14 [History] Ergocalciferol (Vitamin D2) [Drisdol (50,000 Iu)] 50,000 unit PO Q14D 05/19/19 [History] Levothyroxine Sodium [Synthroid] 150 mcg PO DAILY@0800 05/19/19 [History] Pramipexole [Mirapex] 1 mg PO HS@199905/19/19 [History] calcitrioL [Rocaltrol] 0.25 mcg PO SUMOTUWETHFR 05/19/19 [History] Carbidopa-Levodopa 25-100 mg [Sinemet 25-100 mg] 1 tab PO TID@0800,1200,199912/24/20 [History] Carbidopa-Levodopa 25-100 mg [Sinemet 25-100 mg] 2 tab PO AC-SUPPER@1600 12/24/20 [History] Metoprolol Tartrate [Lopressor] 50 mg PO BID@0800,1600 12/24/20 [History] Potassium Chloride ER [K-Dur 20] 20 meq PO DAILY@119912/24/20 [History] polyethylene glycoL 3350 [Miralax] 17 gm PO DAILY PRN #0 powd.pack 01/01/21 [Rx] Sennosides-Docusate Sodium [Senokot-S] 1 tab PO BID@1200,199901/24/21 [History] Ascorbic Acid [Vitamin C] 1,000 mg PO DAILY@119903/10/21 [History] Magnesium Oxide [Mag-Ox] 400 mg PO DAILY@119903/10/21 [History] Methyl Salicylate/Menthol [Salonpas Patch] 1 patch TOPICAL DAILY PRN 03/10/21 [History] Acetaminophen Tab [Tylenol] 650 mg PO Q6HR PRN tab 03/18/21 [Rx] Dicyclomine [Bentyl] 10 mg PO QID cap 03/18/21 [Rx] Melatonin 5 mg PO HS tablet 03/18/21 [Rx] Nystatin 100,000 Unit/gm Powd [Mycostatin Powder] 1 applic TOPICAL TID applic 03/18/21 [Rx] Ondansetron Odt [Zofran Odt] 4 mg PO Q8HR PRN #1 tab 03/19/21 [Rx] Sulfamethox-Tmp 800-160Mg [Bactrim DS 800-160 mg] 1 each PO BID 2 Days #4 tab 03/19/21 [Rx] Follow up Appointment(s)/Referral(s): Reese Lyn MD [STAFF PHYSICIAN] - 4 Weeks [facility], [NON-STAFF] - 1 Week Cameron Nelson MD [Primary Care Provider] - 1 Week Ambulatory/Diagnostic Orders: Complete Blood Count w/diff [LAB.AMB] Time Frame: 3 Days, Location: None Selected Activity/Diet/Wound Care/Special Instructions: ECF:[facility] with applesauce CBC,BMP in 3 days Discharge Disposition: TRANSFER TO SNF/ECF
--- NOTE | 2021-03-19 11:03 | P.PN ---
Subjective Progress Note Date: 03/19/21 Principal diagnosis: Nausea and vomiting Patient is seen and examined sitting up in bed. She is status post EGD yesterday with findings of mild antral gastritis. When asked how she is feeling she states "crappy" she states she continues to have dry heaves and abdominal pain. He had side effects from the rectum with dystonic movements in his initial EGD was postponed. Today the patient is seen and examined sitting up in bed. She states the nausea and vomiting has subsided as well as dry heaves. She states also the abdominal pain has improved. She had a bowel movement yesterday. CT of the abdomen morning with no acute findings in the bowel. Some fecal debris noted. Persistent right-sided hydronephrosis. No signs or symptoms of GI bleed. Morning labs are currently pending. Objective - Vital Signs Vital signs: Vital Signs Temp 98.4 F 03/19/21 04:21 Pulse 68 03/19/21 04:21 Resp 14 03/19/21 04:21 BP 135/72 03/19/21 04:21 Pulse Ox 98 03/19/21 04:21 Intake & Output 03/18/21 03/19/21 03/19/21 18:59 06:59 18:59 Intake Total 1300 600 Output Total 3 Balance 1297 600 Intake: Intake, IV Titration 600 600 Amount Sodium Chloride 0.9% 1, 600 600 000 ml @ 100 mls/hr IV . Q10H [facility] Rx#:[id number] Oral 700 Output: Emesis 3 Other: Voiding Method Diaper Diaper Incontinent Incontinent # Voids 3 1 - Exam General appearance: The patient is alert, oriented, appears in no acute distress. HET: Head is normocephalic and atraumatic. Conjunctiva pink. Sclera anicteric. Neck: Supple without lymphadenopathy. Abdomen: Soft, nontender, nondistended with bowel sounds. No guarding or rigidity. Extremities: Normal skin color and turgor. No pedal edema Skin: No rashes, no jaundice Neurological: Alert and oriented 3. - Labs CBC & Chem 7: 03/18/21 05:04 03/18/21 05:04 Labs: Abnormal Lab Results - Last 24 Hours (Table) 03/18/21 Range/Units 05:04 Est GFR (CKD-EPI)NonAf 55.1 L (60.0-200.0) Calcium 8.3 L (8.7-10.3) mg/dL Assessment and Plan (1) Abdominal pain Narrative/Plan: This is a 75-year-old pleasant female who presented with abdominal pain as stated with nausea and vomiting for the last 3-4 weeks duration. The patient underwent an EGD to rule out peptic ulcer disease, with findings of only mild gastritis. Repeat CT of the abdomen was performed yesterday which showed no inflammatory or acute findings within the bowel. There is persistent marked hydronephrosis of the right kidney with delayed excretion in the right compared to the left. Ureteral stent remains present on the right. Interval development of small bilateral pleural effusion. Current Visit: Yes Status: Acute Code(s): R10.9 - UNSPECIFIED ABDOMINAL PAIN SNOMED Code(s): 62366748 (2) Nausea and vomiting Narrative/Plan: Resolved Current Visit: Yes Status: Acute Code(s): R11.2 - NAUSEA WITH VOMITING, UNSPECIFIED SNOMED Code(s): 34794519 (3) Normocytic anemia Narrative/Plan: This is a patient with history of normocytic anemia with current hemoglobin of 7.1 which is stable and clinically no active bleeding. Current Visit: Yes Status: Acute Code(s): D64.9 - ANEMIA, UNSPECIFIED SNOMED Code(s): 799920917 (4) History of CVA (cerebrovascular accident) Current Visit: No Status: Acute Code(s): Z86.73 - PRSNL HX OF TIA (TIA), AND CEREB INFRC W/O RESID DEFICITS SNOMED Code(s): 139517271 Plan: 1. Continue symptomatic and supportive care 2. Continue Protonix 3. Continue antiemetics with Zofran and Compazine 4. Patient is status post EGD with findings of mild antral gastritis 5. Surgical services has been consulted, CT of the abdomen reviewed Thank you for this consultation, patient is cleared for discharge from a gastroenterology standpoint Dr. Julio Pond I agree with the dictator's note, documented as a scribe by Lesly Reyez.
[2021-03-19 11:04] LABS: Anisocytosis Slight; HCT 23.5 % (34.0-46.0); HGB 7.5 gm/dL (11.4-16.0); Hypochromasia Slight; MCH 27.7 pg (25.0-35.0); MCHC 31.7 g/dL (31.0-37.0); MCV 87.4 fL (80.0-100.0); Mean Platelet Volume 8.9; Platelet Count 123 k/uL (150-450); RBC 2.69 m/uL (3.80-5.40); RDW 16.4 % (11.5-15.5); WBC 5.4 k/uL (3.8-10.6)
[2021-03-19 11:24] LABS: African American GFR (CKD) 78 (>60 ml/min/1.73 sqM); Anion Gap 4 mmol/L; Blood Urea Nitrogen 11 mg/dL (7-17); Calcium 8.8 mg/dL (8.4-10.2); Carbon Dioxide 28 mmol/L (22-30); Chloride 106 mmol/L (98-107); Glucose 110 mg/dL (74-99); Non-African American GFR(CKD) 68 (>60 ml/min/1.73 sqM); Potassium 3.4 mmol/L (3.5-5.1); Sodium 138 mmol/L (137-145)
[2021-03-19] MEDS: POTASSIUM BICARBONATE/CIT AC 20 MEQ TABLET.EFF NG-TUBE SCH ×2 (12:53→14:06)
[2021-03-19] MEDS: MAGNESIUM OXIDE 400 MG TAB PO SCH (12:54)
[2021-03-19] MEDS: PROCHLORPERAZINE INJ 10 MG/2 ML VIAL IVP PRN (18:24)
[2021-03-19] MEDS: PRAMIPEXOLE 1 MG TAB PO SCH (20:40)
[2021-03-19] MEDS: MELATONIN 5 MG TABLET PO SCH (20:41)
[2021-03-19] MEDS: HYDROcodone/APAP 7.5-325MG 1 EACH TAB PO PRN (22:08)
[2021-03-20] MEDS: ONDANSETRON 4 MG/2 ML VIAL IVP PRN (02:05)
[2021-03-20] MEDS: SODIUM CHLORIDE 0.9% 1,000 ML IV SCH ×2 (02:05→17:16)
[2021-03-20] MEDS: HYDROcodone/APAP 7.5-325MG 1 EACH TAB PO PRN (04:27)
[2021-03-20] MEDS: PROCHLORPERAZINE INJ 10 MG/2 ML VIAL IVP PRN (04:27)
[2021-03-20] MEDS: CARBIDOPA-LEVODOPA 25-100 MG 1 EACH TAB PO SCH ×3 (08:48→17:16)
[2021-03-20] MEDS: DICYCLOMINE 10 MG CAP PO SCH ×3 (08:48→17:16)
[2021-03-20 09:45] LABS: Anisocytosis Slight; HCT 22.7 % (34.0-46.0); HGB 7.5 gm/dL (11.4-16.0); Hypochromasia Slight; MCH 28.3 pg (25.0-35.0); MCV 85.9 fL (80.0-100.0); Mean Platelet Volume 8.7; Platelet Count 110 k/uL (150-450); RBC 2.64 m/uL (3.80-5.40); RDW 16.5 % (11.5-15.5); WBC 9.1 k/uL (3.8-10.6)
[2021-03-20 10:01] LABS: African American GFR (CKD) 63 (>60 ml/min/1.73 sqM); Anion Gap 6 mmol/L; Blood Urea Nitrogen 11 mg/dL (7-17); Calcium 8.7 mg/dL (8.4-10.2); Carbon Dioxide 28 mmol/L (22-30); Chloride 105 mmol/L (98-107); Glucose 120 mg/dL (74-99); Non-African American GFR(CKD) 55 (>60 ml/min/1.73 sqM); Potassium 3.9 mmol/L (3.5-5.1); Sodium 139 mmol/L (137-145)
[2021-03-20] MEDS ORDERED: ONDANSETRON ODT 4 MG TAB PO PRN (12:49)
[2021-03-20] MEDS: ESCITALOPRAM 10 MG TAB PO SCH (14:23)
[2021-03-20] MEDS: LEVOTHYROXINE 75 MCG TAB PO SCH (14:23)
[2021-03-20] MEDS: METOPROLOL TARTRATE 50 MG TAB PO SCH ×2 (14:23→17:16)
[2021-03-20] MEDS: MAGNESIUM OXIDE 400 MG TAB PO SCH (14:24)
[2021-03-20] MEDS: SULFAMETHOX-TMP 800-160MG 1 EACH TAB PO SCH (14:24)
[2021-03-20] MEDS: PANTOPRAZOLE 40 MG/10 ML VIAL IVP SCH (14:24)
[2021-03-20] MEDS: polyethylene glycoL 3350 17 GM POWD.PACK PO SCH (14:24)
[2021-03-20] MEDS ORDERED: methylPREDNISolone ACETATE 80 MG/ML 1 ML VIAL IM STA (16:27)
[2021-03-20] MEDS ORDERED: diphenhydrAMINE 25 MG CAP PO STA (16:27)
[2021-03-20] MEDS: NYSTATIN 100,000 UNIT/GM POWD 15 GM TOPICAL SCH (17:47)
[2021-03-20 21:18] VITALS: BP 115/62; PULSE 91; RESP 20; TEMP 99.6
== END 2021-03-20 21:29 | DRG 389 ==
LOC: EC 16:06 → 5NMEDONC 19:24
PROVIDERS: ADMIT Family Medicine; ATTEND Family Medicine
PROC: 0DB78ZX Excision of Stomach, Pylorus, Via Natural or Artificial Opening Endoscopic, Diagnostic (ICD-10-PCS; principal; 2021-03-17 07:45)
DX: K56.7 Ileus, unspecified (principal); T83.112A Breakdown (mechanical) of indwelling ureteral stent, initial encounter; N10 Acute pyelonephritis; I50.32 Chronic diastolic (congestive) heart failure; G24.02 Drug induced acute dystonia; I69.354 Hemiplegia and hemiparesis following cerebral infarction affecting left non-dominant side; N13.30 Unspecified hydronephrosis; N17.9 Acute kidney failure, unspecified; K56.609 Unspecified intestinal obstruction, unspecified as to partial versus complete obstruction; E86.0 Dehydration; E03.9 Hypothyroidism, unspecified; F31.9 Bipolar disorder, unspecified; E66.9 Obesity, unspecified; Z68.32 Body mass index [BMI] 32.0-32.9, adult; E78.5 Hyperlipidemia, unspecified; F41.9 Anxiety disorder, unspecified; D64.9 Anemia, unspecified; G20 Parkinson's disease; K29.70 Gastritis, unspecified, without bleeding; B96.89 Other specified bacterial agents as the cause of diseases classified elsewhere; T45.0X5A Adverse effect of antiallergic and antiemetic drugs, initial encounter; I69.320 Aphasia following cerebral infarction; Z87.891 Personal history of nicotine dependence; Z79.890 Hormone replacement therapy; Z20.822 Contact with and (suspected) exposure to COVID-19; I10 Essential (primary) hypertension; G47.00 Insomnia, unspecified; F41.8 Other specified anxiety disorders; B37.9 Candidiasis, unspecified; Z87.440 Personal history of urinary (tract) infections; Z90.710 Acquired absence of both cervix and uterus; R32 Unspecified urinary incontinence; Z79.899 Other long term (current) drug therapy; Y83.8 Other surgical procedures as the cause of abnormal reaction of the patient, or of later complication, without mention of misadventure at the time of the procedure
CPT/HCPCS: 36415; 43239; 70450; 74176; 74177; 80048; 80053; 81001; 82150; 83605; 83690; 83735; 84132; 85025; 85027; 85045; 85610; 85730; 87077; 87086; 87186; 87635; 87636; 88305; 93005; 96361; 96374; 99285

== ENCOUNTER 2021-04-15 16:15 | Inpatient (IN) | payer MEDICARE ==
[2021-04-15] MEDS: SODIUM CHLORIDE 0.9% 1,000 ML IV SCH (17:49)
[2021-04-15 17:57] LABS: ALT <6 U/L (4-34); AST 12 U/L (14-36); African American GFR (CKD) 85 (>60 ml/min/1.73 sqM); Alkaline Phosphatase 89 U/L (38-126); Anion Gap 9 mmol/L; Blood Urea Nitrogen 11 mg/dL (7-17); Calcium 8.8 mg/dL (8.4-10.2); Carbon Dioxide 31 mmol/L (22-30); Chloride 99 mmol/L (98-107); Glucose 85 mg/dL (74-99); INR 1.2 (<1.2); Non-African American GFR(CKD) 74 (>60 ml/min/1.73 sqM); Partial Thromboplastin Time 23.7 sec (22.0-30.0); Prothrombin Time 12.3 sec (9.0-12.0); Sodium 139 mmol/L (137-145); Total Bilirubin 0.4 mg/dL (0.2-1.3); Total Protein 5.6 g/dL (6.3-8.2)
[2021-04-15 18:09] LABS: Anisocytosis Slight; Basophils % (A) 0 %; Eosinophils # (A) 0.1 k/uL (0-0.7); Eosinophils % (A) 1 %; HCT 27.4 % (34.0-46.0); HGB 8.8 gm/dL (11.4-16.0); Hypochromasia Slight; Lymphocytes % (A) 13 %; MCH 27.6 pg (25.0-35.0); MCHC 32.3 g/dL (31.0-37.0); MCV 85.6 fL (80.0-100.0); Mean Platelet Volume 9.1; Monocytes # (A) 0.3 k/uL (0-1.0); Monocytes % (A) 5 %; Neutrophils # (A) 5.8 k/uL (1.3-7.7); Neutrophils % (A) 80 %; Platelet Count 208 k/uL (150-450); Poikilocytosis Slight; RDW 17.6 % (11.5-15.5); WBC 7.3 k/uL (3.8-10.6)
--- NOTE | 2021-04-15 18:28 | ED ---
Altered Mental Status HPI - General Chief Complaint: Altered Mental Status Stated Complaint: ALtered mental status Time Seen by Provider: 04/15/21 16:50 Source: EMS Mode of arrival: EMS Limitations: altered mental status - History of Present Illness Initial Comments: This is a 75-year-old female to history of multiple recurrent urinary tract infections and right ureteral stent placement who presents or urgency department for mental status changes. Apparently over the last few days she's been more combative and seems to be not quite herself. She had an episode of vomiting earlier today for which she was given Zofran. She just recently was being t reated with Rocephin for urinary tract infection at the nursing facility however due to her recurrent mental status changes she was sent emergency department for evaluation. She is not able to contribute to the history at all and I believe this is baseline as the patient does have a history of aphasia and stroke in the past. - Related Data Home Medications Medication Instructions Recorded Confirmed Escitalopram Oxalate [Lexapro] 10 mg PO DAILY@0800 09/07/14 04/15/21 Omeprazole [PriLOSEC] 20 mg PO BID@0800,1700 09/07/14 04/15/21 Pravastatin Sodium [Pravachol] 80 mg PO HS 09/07/14 04/15/21 Ergocalciferol (Vitamin D2) 1,250 mcg PO Q14D@1200 05/19/19 04/15/21 [Drisdol (50,000 Iu)] Levothyroxine Sodium [Synthroid] 150 mcg PO DAILY@0800 05/19/19 04/15/21 Pramipexole [Mirapex] 1 mg PO HS 05/19/19 04/15/21 calcitrioL [Rocaltrol] 0.25 mcg PO SUMOTUWETHFR@1200 05/19/19 04/15/21 Carbidopa-Levodopa 25-100 mg 1 tab PO TID@0800,1200,2100 12/24/20 04/15/21 [Sinemet 25-100 mg] Carbidopa-Levodopa 25-100 mg 2 tab PO AC-SUPPER@1700 12/24/20 04/15/21 [Sinemet 25-100 mg] Metoprolol Tartrate [Lopressor] 50 mg PO BID@0800,1700 12/24/20 04/15/21 Potassium Chloride ER [K-Dur 20] 20 meq PO DAILY@1200 12/24/20 04/15/21 Sennosides-Docusate Sodium 1 tab PO BID@0800,1700 01/24/21 04/15/21 [Senokot-S] Ascorbic Acid [Vitamin C] 1,000 mg PO DAILY@1200 03/10/21 04/15/21 Magnesium Oxide [Mag-Ox] 400 mg PO TID@0800,1200,1700 03/10/21 04/15/21 Acetaminophen Tab [Tylenol] 650 mg PO Q6HR PRN 04/15/21 04/15/21 Diclofenac Sodium [Voltaren Gel] 1 applic TOPICAL QID@08,,,04/15/21 04/15/21 Dicyclomine [Bentyl] 10 mg PO QID@08,,,04/15/21 04/15/21 Ensure Clear 120 ml PO BID@0800,1700 04/15/21 04/15/21 Lactose-Reduced Food [Ensure Plus] 120 ml PO DAILY@1200 04/15/21 04/15/21 Magnesium Hydroxide [Milk of 7,200 mg PO Q48H PRN 04/15/21 04/15/21 Magnesia Concentrate] Na Phos,M-B/Na Phos,Di-Ba [Fleet 133 ml RECTAL DAILY PRN 04/15/21 04/15/21 Adult] Nystatin 100,000 Unit/gm Powd 1 applic TOPICAL TID 04/15/21 04/15/21 [Mycostatin Powder] Ondansetron HCl [Zofran] 4 mg PO DAILY@0600 04/15/21 04/15/21 Ondansetron Odt [Zofran Odt] 4 mg PO Q8H PRN 04/15/21 04/15/21 Promethazine Hcl 25mg/Ml 25 mg IM Q6H PRN 04/15/21 04/15/21 Salonpas Lidocaine Patch 1 patch TRANSDERM DAILY PRN 04/15/21 04/15/21 bisacodyL [Bisacodyl] 10 mg RECTAL DAILY PRN 04/15/21 04/15/21 dronabinoL [Marinol] 2.5 mg PO TID@0800,1200,1700 04/15/21 04/15/21 Previous Rx's Medication Instructions Recorded polyethylene glycoL 3350 [Miralax] 17 gm PO DAILY PRN #0 powd.pack 01/01/21 Melatonin 5 mg PO HS tablet 03/18/21 Allergies Allergy/AdvReac Type Severity Reaction Status Date / Time amiodarone [From Cordarone] Allergy Anaphylaxis Verified 04/15/21 17:19 cyclobenzaprine Allergy Rash/Hives Verified 04/15/21 17:19 [From Flexeril] prochlorperazine Allergy Rash/Hives Verified 04/15/21 17:19 metoclopramide AdvReac Severe Unknown Verified 04/15/21 17:19 Review of Systems ROS Statement: Those systems with pertinent positive or pertinent negative responses have been documented in the HPI. ROS Other: All systems not noted in ROS Statement are negative. 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, hypothyroidism, hypertension, hyperlipidemia, Parkinson's disease, degenerative arthritis, anxiety, depression History of Any Multi-Drug Resistant Organisms: None Reported Past Surgical History: Hysterectomy, Orthopedic Surgery Additional Past Surgical History / Comment(s): Hammer toe surgery, recent infection to toe Past Anesthesia/Blood Transfusion Reactions: No Reported Reaction Past Psychological History: Anxiety, Bipolar, Depression Smoking Status: Former smoker Past Alcohol Use History: None Reported Past Drug Use History: None Reported - Past Family History Father Family Medical History: No Reported History General Exam - General Exam Comments Initial Comments: Constitutional: Awake alert Appears comfortable Head: Normocephalic atraumatic Eyes: no conjunctival injection No scleral icterus unable to evaluate pupils is patient continues to squint her eyes are time I could look into them Neck: No JVD Supple Heart: Regular rate rhythm normal S1-S2 no murmurs Lungs: Clear to auscultation bilaterally No wheezing No rales Abdomen: Soft nondistended patient seems to be uncomfortable with palpation of her abdomen Extremities: Non edematous DP pulses intact Radial pulses intact Neuro: Awake and alert, seems to be some left upper extremity weakness and the patient is nonverbal. Psych: Appropriate mood and affect Limitations: altered mental status Course Vital Signs 06/01/21 06/01/21 06/01/21 16:32 17:38 18:38 Temperature 99.9 F H Pulse Rate 72 75 70 Respiratory 18 18 18 Rate Blood Pressure 172/82 168/72 188/82 O2 Sat by Pulse 92 L 99 95 Oximetry - Reevaluation(s) Reevaluation #1: EKG showing normal sinus rhythm with a rate 74. No abnormal ST segment changes. There is a T-wave inversion in V1 and V2 and also lead 3. QTC 444. Other intervals normal. No ectopy. 04/15/21 18:50 Medical Decision Making - Medical Decision Making Is a 75-year-old female presents emergency department for encephalopathy. The patient had stable vital signs on arrival however did have a low-grade temperature 99.9. I reviewed the patient's urine culture from previously and its growing out enterococcus with multiple resistances. It seems to be susceptible vancomycin. We'll start the patient on Vanco at this time empirically. Awaiting urinary testing. CT does show persistent right-sided hydronephrosis however this is chronic and no other acute findings. Blood work otherwise is at baseline. I spoke with Dr. Bennett about the patient and stated that she would likely require admission and he agreed. - Lab Data Result diagrams: 04/15/21 17:15 04/15/21 17:15 Lab Results 04/15/21 04/15/21 04/15/21 Range/Units 17:15 17:15 17:15 WBC 7.3 (3.8-10.6) k/uL RBC 3.20 L (3.80-5.40) m/uL Hgb 8.8 L (11.4-16.0) gm/dL Hct 27.4 L (34.0-46.0) % MCV 85.6 (80.0-100.0) fL MCH 27.6 (25.0-35.0) pg MCHC 32.3 (31.0-37.0) g/dL RDW 17.6 H (11.5-15.5) % Plt Count 208 (150-450) k/uL MPV 9.1 Neutrophils % 80 % Lymphocytes % 13 % Monocytes % 5 % Eosinophils % 1 % Basophils % 0 % Neutrophils # 5.8 (1.3-7.7) k/uL Lymphocytes # 1.0 (1.0-4.8) k/uL Monocytes # 0.3 (0-1.0) k/uL Eosinophils # 0.1 (0-0.7) k/uL Basophils # 0.0 (0-0.2) k/uL Hypochromasia Slight Poikilocytosis Slight Anisocytosis Slight PT 12.3 H (9.0-12.0) sec INR 1.2 H (<1.2) APTT 23.7 (22.0-30.0) sec Sodium 139 (137-145) mmol/L Potassium 4.0 (3.5-5.1) mmol/L Chloride 99 (98-107) mmol/L Carbon Dioxide 31 H (22-30) mmol/L Anion Gap 9 mmol/L BUN 11 (7-17) mg/dL Creatinine 0.79 (0.52-1.04) mg/dL Est GFR (CKD-EPI)AfAm 85 (>60 ml/min/1.73 sqM) Est GFR (CKD-EPI)NonAf 74 (>60 ml/min/1.73 sqM) Glucose 85 (74-99) mg/dL Plasma Lactic Acid Donell (0.7-2.0) mmol/L Calcium 8.8 (8.4-10.2) mg/dL Total Bilirubin 0.4 (0.2-1.3) mg/dL AST 12 L (14-36) U/L ALT <6 (4-34) U/L Alkaline Phosphatase 89 (38-126) U/L Troponin I (0.000-0.034) ng/mL Total Protein 5.6 L (6.3-8.2) g/dL Albumin 3.0 L (3.5-5.0) g/dL 04/15/21 04/15/21 Range/Units 17:15 17:15 WBC (3.8-10.6) k/uL RBC (3.80-5.40) m/uL Hgb (11.4-16.0) gm/dL Hct (34.0-46.0) % MCV (80.0-100.0) fL MCH (25.0-35.0) pg MCHC (31.0-37.0) g/dL RDW (11.5-15.5) % Plt Count (150-450) k/uL MPV Neutrophils % % Lymphocytes % % Monocytes % % Eosinophils % % Basophils % % Neutrophils # (1.3-7.7) k/uL Lymphocytes # (1.0-4.8) k/uL Monocytes # (0-1.0) k/uL Eosinophils # (0-0.7) k/uL Basophils # (0-0.2) k/uL Hypochromasia Poikilocytosis Anisocytosis PT (9.0-12.0) sec INR (<1.2) APTT (22.0-30.0) sec Sodium (137-145) mmol/L Potassium (3.5-5.1) mmol/L Chloride (98-107) mmol/L Carbon Dioxide (22-30) mmol/L Anion Gap mmol/L BUN (7-17) mg/dL Creatinine (0.52-1.04) mg/dL Est GFR (CKD-EPI)AfAm (>60 ml/min/1.73 sqM) Est GFR (CKD-EPI)NonAf (>60 ml/min/1.73 sqM) Glucose (74-99) mg/dL Plasma Lactic Acid Donell 0.8 (0.7-2.0) mmol/L Calcium (8.4-10.2) mg/dL Total Bilirubin (0.2-1.3) mg/dL AST (14-36) U/L ALT (4-34) U/L Alkaline Phosphatase (38-126) U/L Troponin I 0.024 (0.000-0.034) ng/mL Total Protein (6.3-8.2) g/dL Albumin (3.5-5.0) g/dL Disposition Clinical Impression: Encephalopathy, UTI (lower urinary tract infection) Disposition: ADMITTED IP TO THIS [facility] Condition: Stable Referrals: Cameron Nleson MD [Primary Care Provider] - 1-2 days
[2021-04-15] MEDS ORDERED: HALOPERIDOL LACTATE 5 MG/ML 1 ML VIAL IM STA (19:36)
--- NOTE | 2021-04-15 19:46 | XR ---
EXAMINATION TYPE: XR chest 1V portable DATE OF EXAM: 04/15/2021 COMPARISON: 01/28/2021 INDICATION: Fall altered mental status TECHNIQUE: Single frontal view of the chest is obtained. FINDINGS: The heart size is mildly prominent. The pulmonary vasculature is normal. The lungs are clear. IMPRESSION: 1. Stable appearing chest x-ray. 2. Mild cardiomegaly
--- NOTE | 2021-04-15 21:31 | CT ---
EXAMINATION TYPE: CT abdomen pelvis w con DATE OF EXAM: 04/15/2021 COMPARISON: 03/18/2021 INDICATION: ams, UTI DLP: 1553.6 mGycm, Automated exposure control for dose reduction was used. CONTRAST: 100 mL of Isovue 300. Study performed without Oral Contrast TECHNIQUE: Axial images were obtained from above the diaphragm to the pubic rami in the axial plane a t 5 mm thick sections. Reconstructed images are reviewed on the computer in the coronal plane. FINDINGS: Limited CT sections are obtained the lung bases. The lung bases are clear. CT ABDOMEN: Liver: Normal Spleen: Normal Pancreas: Normal Adrenal glands: The adrenal glands are normal. Gallbladder: Surgically absent Kidneys: There is marked right hydronephrosis. Ureteral stent is evident on the right. Small to moder ate left hydronephrosis may be present. Hydroureter is not identified. There is some malrotation of t he right kidney. Large cyst at the inferior pole left kidney. No renal stones are identified. Aorta: Vascular calcification is within the aorta. Inferior vena cava: Normal. CT PELVIS: Loops of bowel within the abdomen and pelvis are normal. The study is performed without oral cont rast limiting bowel evaluation. There is a large fecal bolus of the rectum. Correlate for fecal impac tion. No suspicious changes for obstruction of the bowel are evident. Appendix: Normal as visualized. Urinary bladder: Normal. Genitourinary structures: Uterus and ovaries are not identified. Osseous structures: No suspicious lytic or sclerotic lesions. IMPRESSIONS: 1. Marked right hydronephrosis. A small left hydronephrosis appears to be present. These are similar to the comparison exam. No hydroureter is identified on either side. 2. Large fecal bolus at the level the rectum. Correlate for fecal impaction
[2021-04-15] MEDS ORDERED: VANCOMYCIN IV PER PHARMACY 1 EACH MISC MISCELLANE PRN (21:47)
[2021-04-15] MEDS ORDERED: NALOXONE 0.4 MG/ML 1 ML VIAL IV PRN (21:49)
[2021-04-15] MEDS ORDERED: VANCOMYCIN 1,500 MG in SODIUM CHLORIDE 0.9% 250 ML IVPB ONE (22:15)
[2021-04-15 22:29] LABS: Appearance,Urine Cloudy (Clear); Bacteria,Urine Rare /hpf; Bilirubin,Urine Negative (Negative); Blood,Urine Small (Negative); Color,Urine Yellow; Glucose,Urine (UA) Negative (Negative); Ketones,Urine 1+ (Negative); Leukocyte Esterase,Urine Large (Negative); Mucus,Urine Rare /hpf; Nitrite,Urine Negative (Negative); Protein,Urine 1+ (Negative); RBC,Urine 3 /hpf (0-5); Specific Gravity,Urine 1.012 (1.001-1.035); Urobilinogen,Urine <2.0 mg/dL (<2.0); WBC,Urine 21 /hpf (0-5)
[2021-04-16] MEDS: SODIUM CHLORIDE 0.9% 1,000 ML IV SCH ×3 (02:38→16:27)
[2021-04-16] MEDS: VANCOMYCIN 1,500 MG in SODIUM CHLORIDE 0.9% 250 ML IVPB SCH ×2 (10:23→20:07)
[2021-04-16 15:04] LABS: Glucose,Whole Blood 144 mg/dL (75-99)
[2021-04-16] MEDS: ACETAMINOPHEN SUPPOSITORY 650 MG SUPP RECTAL PRN (15:16)
[2021-04-16 15:28] LABS: Anisocytosis Slight; Basophils # (A) 0.1 k/uL (0-0.2); Basophils % (A) 0 %; Eosinophils # (A) 0.1 k/uL (0-0.7); Eosinophils % (A) 1 %; HCT 29.4 % (34.0-46.0); HGB 9.6 gm/dL (11.4-16.0); Hypochromasia Slight; Lymphocytes # (A) 1.2 k/uL (1.0-4.8); Lymphocytes % (A) 10 %; MCH 27.9 pg (25.0-35.0); MCHC 32.6 g/dL (31.0-37.0); MCV 85.4 fL (80.0-100.0); Mean Platelet Volume 8.6; Monocytes # (A) 0.5 k/uL (0-1.0); Monocytes % (A) 4 %; Neutrophils # (A) 11.1 k/uL (1.3-7.7); Neutrophils % (A) 85 %; Platelet Count 251 k/uL (150-450); Poikilocytosis Slight; RBC 3.44 m/uL (3.80-5.40); RDW 17.7 % (11.5-15.5); WBC 13.1 k/uL (3.8-10.6)
--- NOTE | 2021-04-16 16:19 | XR ---
EXAMINATION TYPE: XR chest 1V DATE OF EXAM: 04/16/2021 COMPARISON: 04/15/2021 HISTORY: Cough TECHNIQUE: Single frontal view of the chest is obtained. FINDINGS: Limited inspiration with basilar subsegmental consolidation. No pneumothorax. Biapical ple ural thickening. Heart size normal. Atherosclerotic change aorta. Diffuse osteopenia and arthropathy of the left shoulder. IMPRESSION: Basilar atelectasis favored over pneumonia correlate clinically.
[2021-04-17] MEDS ORDERED: Pre Op ABX Message 1 EACH MISC MISCELLANE ONE (05:00)
[2021-04-17 06:50] LABS: African American GFR (CKD) >90 (>60 ml/min/1.73 sqM); Anion Gap 16 mmol/L; Blood Urea Nitrogen 9 mg/dL (7-17); Calcium 8.1 mg/dL (8.4-10.2); Carbon Dioxide 22 mmol/L (22-30); Chloride 102 mmol/L (98-107); Glucose 104 mg/dL (74-99); Non-African American GFR(CKD) 81 (>60 ml/min/1.73 sqM); Potassium 2.8 mmol/L (3.5-5.1); Sodium 140 mmol/L (137-145)
[2021-04-17] MEDS ORDERED: Potassium Replacement Protocol 1 EACH MISC MISCELLANE PRN (10:06)
[2021-04-17] MEDS ORDERED: ACETAMINOPHEN TAB 325 MG TAB PO PRN (10:08)
[2021-04-17] MEDS ORDERED: MAGNESIUM HYDROXIDE 2,400 MG/10 ML CUP PO PRN (10:09)
[2021-04-17] MEDS ORDERED: NA PHOS,M-B/NA PHOS,DI-BA 133 ML ENEMA RECTAL PRN (10:09)
[2021-04-17] MEDS ORDERED: SALONPAS TRANSDERM PRN (10:09)
[2021-04-17] MEDS ORDERED: polyethylene glycoL 3350 17 GM POWD.PACK PO PRN (10:09)
[2021-04-17] MEDS ORDERED: PROMETHAZINE HCL IM PRN (10:09)
[2021-04-17] MEDS: ACETAMINOPHEN SUPPOSITORY 650 MG SUPP RECTAL PRN ×2 (10:10→17:15)
[2021-04-17] MEDS: PANTOPRAZOLE 40 MG/10 ML VIAL IVP SCH (10:24)
[2021-04-17 10:56] LABS: Anisocytosis Slight; HCT 25.1 % (34.0-46.0); Hypochromasia Moderate; MCH 27.6 pg (25.0-35.0); MCHC 31.7 g/dL (31.0-37.0); MCV 87.2 fL (80.0-100.0); Platelet Count 217 k/uL (150-450); RBC 2.88 m/uL (3.80-5.40); RDW 17.9 % (11.5-15.5); WBC 7.9 k/uL (3.8-10.6)
[2021-04-17] MEDS: polyethylene glycoL 3350 17 GM POWD.PACK PO SCH (11:07)
[2021-04-17] MEDS: CARBIDOPA-LEVODOPA 25-100 MG 1 EACH TAB PO SCH ×3 (11:53→22:03)
[2021-04-17] MEDS: VANCOMYCIN 1,500 MG in SODIUM CHLORIDE 0.9% 250 ML IVPB SCH (11:54)
[2021-04-17] MEDS: MAGNESIUM OXIDE 400 MG TAB PO SCH ×2 (11:54→18:16)
[2021-04-17] MEDS: POTASSIUM CHLORIDE ER 20 MEQ TAB.ER PO SCH (11:54)
[2021-04-17] MEDS: DICLOFENAC SODIUM GEL 100 GM TUBE TOPICAL SCH ×2 (11:54→12:52)
[2021-04-17] MEDS: SODIUM CHLORIDE 0.9% 1,000 ML IV SCH ×4 (11:55→22:04)
[2021-04-17] MEDS ORDERED: ERGOCALCIFEROL 1,250 MCG (50,000 IU) CAPSULE PO SCH (12:00)
[2021-04-17] MEDS ORDERED: hydrALAZINE HCL 20 MG/ML 1 ML VIAL IVP SCH (12:00)
[2021-04-17] MEDS ORDERED: ASCORBIC ACID 500 MG TAB PO SCH (12:00)
[2021-04-17] MEDS ORDERED: DICYCLOMINE 10 MG CAP PO SCH (12:00)
[2021-04-17] MEDS ORDERED: Magnesium Replacement Protocol 1 EACH MISC MISCELLANE PRN (12:00)
[2021-04-17] MEDS ORDERED: NON FORMULARY DRUG (Lactose-Reduced Food [Ensure Plus] 237 ML Liquid) PO SCH (12:00)
--- NOTE | 2021-04-17 13:01 | CT ---
EXAMINATION TYPE: CT brain wo con DATE OF EXAM: 04/17/2021 COMPARISON: 03/15/2021 INDICATION: altered mental status DLP: 1129.4 mGycm, Automated exposure control for dose reduction was used. CONTRAST: None CT of the brain is performed utilizing 3 mm thick sections through the posterior fossa and 3 mm thick sections through the remaining calvarium. Study is performed within 24 hours of arrival to the hosp [facility]. No abnormal hyperdensity is present to suggest an acute intracranial hemorrhage. No mass lesion is evident. Physiologic basal ganglion calcification is present bilaterally. No acute infarcts are evident. Periventricular white matter hypodensity is present, likely invasive c hronic white matter ischemic type changes, stable from comparison Ventricles and sulci are appropriate for the patient age. Paranasal sinuses and mastoid air cells within the [id number] are clear. IMPRESSIONS: 1. Chronic appearing periventricular white matter ischemic type changes, stable
[2021-04-17] MEDS ORDERED: NON FORMULARY DRUG (Lactose-Reduced Food [Ensure Plus] 120 ML) PO SCH (16:00)
[2021-04-17] MEDS: NYSTATIN 100,000 UNIT/GM POWD 15 GM TOPICAL SCH ×3 (16:10→22:04)
--- NOTE | 2021-04-17 16:39 | P.HPIM ---
History of Present Illness H&P Date: 04/17/21 This is a 75-year-old female with past medical history of UTI Strep agalactiae - (group b) with Pyelonephritis, severe right hydronephrosis with right ureteral stent insertion to 12/26/20,CVA with residual left-sided weakness, expressive aphasia/TIA, hyperlipidemia, hypertension, chronic renal failure, hypothyroidism, obesity, anxiety, bipolar, depression, former nicotine dependence presented to the ER via EMS for [facility] with reports that patient had mental status changes, combative over the last few days with an episode of vomiting. Patient's baseline is chronic residual left-sided weakness from prior CVA with expressive aphasia. Patient currently nonverbal, rigid, posturing, attempting to communicate with blinking of right eye. Febrile, T-max 100.3, WBC 13.1 yesterday down to 7.9. Maintained on vancomycin. Hemoglobin 8, platelets 217, glucose 104, potassium 2.8, magnesium 1.4 both being supplemented. Sodium 140, BUN 9, creatinine 0.73. Lactic acid 0.8. UA reporting urine WBCs 21, large leukocytes 1+ ketones. EKG reported normal sinus rhythm, left ventricular hypertrophy, chest x-ray reporting bibasilar atelectasis/subsegmental consolidation. Baca virus not detected. Review of Systems Review systems unable to obtain given patient's current condition. Past Medical History Past Medical History: Heart Failure, CVA/TIA, GERD/Reflux, Hyperlipidemia, Hypertension, Musculoskeletal Disorder, Neurologic Disorder, Renal Disease, Thyroid Disorder Additional Past Medical History / Comment(s): Pt recently admitted to [facility] on 03/10/21 with abdominal pain, N/V, EGD showed gastritis, possible ileus, UTI, acute pyelonephritis. Other hx: CVAs/expressive aphasia and L sided wea kness, TIAs, Parkinsons disease, CKD stage III, bilateral hydronephrosis with R side worse, recurrent UTIs, chronic anemia, covid + 01/2021, incontinence urine/stool, hypothyroid. History of Any Multi-Drug Resistant Organisms: None Reported Past Surgical History: Appendectomy, Cholecystectomy, Hernia Repair, Hysterectomy, Orthopedic Surgery Additional Past Surgical History / Comment(s): 12/26/20 cysto with R ureteral stent, hysterectomy with bilateral oophorectomy, abdominal hernia repair, EGD, colonoscopy, hammer toe surgery Past Anesthesia/Blood Transfusion Reactions: No Reported Reaction Smoking Status: Former smoker - Past Family History Father History Unknown: Yes Family Medical History: No Reported History Mother Family Medical History: Hypertension Additional Family Medical History / Comment(s): Mother lived to be about 85 yrs old. Medications and Allergies Home Medications Medication Instructions Recorded Confirmed Type Escitalopram Oxalate [Lexapro] 10 mg PO DAILY@0800 09/07/14 04/15/21 History Omeprazole [PriLOSEC] 20 mg PO BID@0800,1700 09/07/14 04/15/21 History Pravastatin Sodium [Pravachol] 80 mg PO HS 09/07/14 04/15/21 History Ergocalciferol (Vitamin D2) 1,250 mcg PO Q14D@1200 05/19/19 04/15/21 History [Drisdol (50,000 Iu)] Levothyroxine Sodium [Synthroid] 150 mcg PO DAILY@0800 05/19/19 04/15/21 History Pramipexole [Mirapex] 1 mg PO HS 05/19/19 04/15/21 History calcitrioL [Rocaltrol] 0.25 mcg PO SUMOTUWETHFR@1200 05/19/19 04/15/21 History Carbidopa-Levodopa 25-100 mg 1 tab PO TID@0800,1200,209912/24/20 04/15/21 History [Sinemet 25-100 mg] Carbidopa-Levodopa 25-100 mg 2 tab PO AC-SUPPER@1700 12/24/20 04/15/21 History [Sinemet 25-100 mg] Metoprolol Tartrate [Lopressor] 50 mg PO BID@0800,1700 12/24/20 04/15/21 History Potassium Chloride ER [K-Dur 20] 20 meq PO DAILY@1200 12/24/20 04/15/21 History polyethylene glycoL 3350 [Miralax] 17 gm PO DAILY PRN #0 powd.pack 01/01/21 04/15/21 Rx Sennosides-Docusate Sodium 1 tab PO BID@0800,1700 01/24/21 04/15/21 History [Senokot-S] Ascorbic Acid [Vitamin C] 1,000 mg PO DAILY@1200 03/10/21 04/15/21 History Magnesium Oxide [Mag-Ox] 400 mg PO TID@0800,1200,1700 03/10/21 04/15/21 History Melatonin 5 mg PO HS tablet 03/18/21 04/15/21 Rx Acetaminophen Tab [Tylenol] 650 mg PO Q6HR PRN 04/15/21 04/15/21 History Diclofenac Sodium [Voltaren Gel] 1 applic TOPICAL QID@,,,04/15/21 04/15/21 History Dicyclomine [Bentyl] 10 mg PO QID@08,,,04/15/21 04/15/21 History Ensure Clear 120 ml PO BID@0800,1700 04/15/21 04/15/21 History Lactose-Reduced Food [Ensure Plus] 120 ml PO DAILY@1200 04/15/21 04/15/21 History Magnesium Hydroxide [Milk of 7,200 mg PO Q48H PRN 04/15/21 04/15/21 History Magnesia Concentrate] Na Phos,M-B/Na Phos,Di-Ba [Fleet 133 ml RECTAL DAILY PRN 04/15/21 04/15/21 History Adult] Nystatin 100,000 Unit/gm Powd 1 applic TOPICAL TID 04/15/21 04/15/21 History [Mycostatin Powder] Ondansetron HCl [Zofran] 4 mg PO DAILY@0600 04/15/21 04/15/21 History Ondansetron Odt [Zofran Odt] 4 mg PO Q8H PRN 04/15/21 04/15/21 History Promethazine Hcl 25mg/Ml 25 mg IM Q6H PRN 04/15/21 04/15/21 History Salonpas Lidocaine Patch 1 patch TRANSDERM DAILY PRN 04/15/21 04/15/21 History bisacodyL [Bisacodyl] 10 mg RECTAL DAILY PRN 04/15/21 04/15/21 History dronabinoL [Marinol] 2.5 mg PO TID@0800,1200,1700 04/15/21 04/15/21 History Allergies Allergy/AdvReac Type Severity Reaction Status Date / Time amiodarone [From Cordarone] Allergy Anaphylaxis Verified 04/15/21 17:19 cyclobenzaprine Allergy Rash/Hives Verified 04/15/21 17:19 [From Flexeril] prochlorperazine Allergy Rash/Hives Verified 04/15/21 17:19 metoclopramide AdvReac Severe Unknown Verified 04/15/21 17:19 Physical Exam Vitals: Vital Signs Temp Pulse Resp BP Pulse Ox 04/17/21 09:57 100.3 F H 91 20 180/83 96 04/17/21 07:32 94 20 187/84 95 04/17/21 06:31 105 H 16 178/86 98 04/17/21 01:00 92 16 178/84 96 04/16/21 23:00 96 16 171/84 96 04/16/21 20:14 77 16 166/81 98 04/16/21 18:30 99.3 F 106 H 22 96 04/16/21 17:16 90 20 169/81 98 04/16/21 16:23 99.3 F 94 22 172/85 98 04/16/21 14:57 128 H 24 173/92 97 04/16/21 14:35 115 H 18 176/84 97 Intake and Output 04/16/21 04/17/21 04/17/21 22:59 06:59 14:59 Other: Weight 89.358 kg - Exam General: Lying in bed, rigid, nonverbal, attempting to communicate with blinking of right eye HEENT: PERRL. EOMI. No pharyngeal erythema or exudate. Neck: Supple, no JVD, No adenopathy. Cardiac: Heart regular in rate and rhythm. No S3. No S4. No clicks, rubs. No murmur. Lungs: Clear breath sounds, no rhonchi, bilateral bases diminished. Abdomen: Soft, nondistended, mild diffuse tenderness, no guarding, no rigidity .No mass palpable, No organomegaly. Positive bowel sounds. Extremities: trace edema no cyanosis no claudication normal pulses. Skin: Warm and dry, flaky rash in skin folds Neurologic: Unable to evaluate fully -rigid , decerebrate posturing , upgoing plantar right foot , nonverbal in a patient with baseline expressive aphasia, chronic residual left-sided weakness. ] Lymphatic: [No adenopathy.] Results CBC & Chem 7: 04/17/21 06:01 04/17/21 06:01 Labs: Abnormal Lab Results - Last 24 Hours (Table) 04/16/21 04/16/21 04/17/21 Range/Units 14:53 15:24 06:01 WBC 13.1 H (3.8-10.6) k/uL RBC 3.44 L (3.80-5.40) m/uL Hgb 9.6 L (11.4-16.0) gm/dL Hct 29.4 L (34.0-46.0) % RDW 17.7 H (11.5-15.5) % Neutrophils # 11.1 H (1.3-7.7) k/uL Potassium 2.8 L (3.5-5.1) mmol/L Glucose 104 H (74-99) mg/dL POC Glucose (mg/dL) 144 H (75-99) mg/dL Calcium 8.1 L (8.4-10.2) mg/dL Magnesium (1.6-2.3) mg/dL 04/17/21 04/17/21 Range/Units 06:01 06:01 WBC (3.8-10.6) k/uL RBC 2.88 L (3.80-5.40) m/uL Hgb 8.0 L D (11.4-16.0) gm/dL Hct 25.1 L (34.0-46.0) % RDW 17.9 H (11.5-15.5) % Neutrophils # (1.3-7.7) k/uL Potassium (3.5-5.1) mmol/L Glucose (74-99) mg/dL POC Glucose (mg/dL) (75-99) mg/dL Calcium (8.4-10.2) mg/dL Magnesium 1.4 L (1.6-2.3) mg/dL Microbiology - Last 24 Hours (Table) 04/15/21 18:10 Blood Culture - Preliminary Blood No Growth after 24 hours 04/15/21 17:15 Blood Culture - Preliminary Blood No Growth after 24 hours 04/15/21 17:15 Urine Culture - Preliminary Urine,Clean Catch Thrombosis Risk Factor Assmnt - Choose All That Apply Any of the Below Risk Factors Present?: Yes Each Factor Represents 1 point: Medical pt on bed rest, Obesity (BMI >25) Other Risk Factors: Yes Each Risk Factor Represents 2 Points: Patient confined to bed Each Risk Factor Represents 3 Points: Age 75 years or older Other congenital or acquired thrombophilia - If yes, enter type in comment: No Thrombosis Risk Factor Assessment Total Risk Factor Score: 7 Thrombosis Risk Factor Assessment Level: High Risk Assessment and Plan Assessment: Acute metabolic encephalopathy with decerebrate posturing, rigid, positive upgoing plantar left foot, possible acute CVA, right-sided, in a patient with history of CVA Possible acute UTI, culture pending, in a patient with history of recurrent UTIs, recent acute UTI with Enterobacter aerogenes Bilateral hydronephrosis,no change in the right-sided hydronephrosis. 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 Hypothyroidism Bipolar disorder Obesity, BMI 36 Normocytic anemia Plan: Continue on current medication regime ,monitoring and symptomatic treatment. Brain CT stat. Neurology consulted. Protonix for GI prophylaxis. Prognosis guarded given multiple complex medical issues. The impression and plan of care has been dictated as directed. : I performed a history and examination of this patient, discussed the same with the dictator. I agree with the dictator's note ,documented as a scribe. Any additional findings or plans will be noted.
[2021-04-17] MEDS ORDERED: NON FORMULARY DRUG (Ensure Clear 1 BOX Liquid) PO SCH (17:00)
[2021-04-17 18:04] LABS: Magnesium 1.4 mg/dL (1.6-2.3); Potassium 3.3 mmol/L (3.5-5.1)
[2021-04-17] MEDS: METOPROLOL TARTRATE 50 MG TAB PO SCH (18:15)
[2021-04-17] MEDS: SENNOSIDES-DOCUSATE SODIUM 1 EACH TAB PO SCH (18:16)
--- NOTE | 2021-04-17 18:44 | P.CNNES ---
History of Present Illness Consult date: 04/17/21 Requesting physician: Gume Santiago Jr Reason for Consult: Altered mental status History of Present Illness: Patient is a 75-year-old female with history of stroke (with residual left-sided weakness, expressive aphasia), Parkinson's disease, hypertension, hyperlipidemia, chronic renal insufficiency, came to the hospital by ambulance on 04/15/2021 for altered mental status. Apparently over the last few days prior to arrival, she has been more combative and seems to be not quite herself. She had an episode of vomiting on the day of arrival for which she received Zofran in the ER. Patient was recently treated for UTI. In the ER it was reported patient has aphasia which is baseline. Neurology was consulted this afternoon for altered mental status. It also appears that patient has Parkinson's disease, on levodopa/carbidopa as mentioned below. Patient has not been able to take any oral medications. She has not received any Sinemet in the last 48 hours. She appears severely parkinsonian at this time. Vital signs on arrival blood pressure 172/82, pulse is 72, temperature 99.9. T- max of 100.4. CT head showed chronic appearing periventricular white matter scan Change, stable. There is slight prominence of the ventricles. Bilateral basal ganglia calcifications. No acute process. EKG shows normal sinus rhythm. Moderate voltage criteria for LVH. Chest x-ray showed stable appearing chest x-ray. Mild cardiomegaly. Repeat chest x-ray showed basilar atelectasis is favored over pneumonia. Correlate clinically. CT of the abdomen and pelvis showed marked right hydronephrosis. A small left hydronephrosis appears to be present. No hydroureter. Large fecal bolus at the level of rectum. Patient's blood test shows WBC 7.3 hemoglobin 8.8, platelets 208. PTT 23.7. Chem-7 is normal. Hepatic panel normal. Troponin negative. UA shows large amount of leukocyte Estrace. Baca virus PCR negative. Patient does take Lexapro 10 mg, Pravachol 80 mg, omeprazole, levothyroxine, Mirapex 1 mg at bedtime, vitamin D, potassium, Sinemet 25/100 one tablet 3 times a day and 2 tablets at bedtime, metoprolol. Patient not on any antiplatelets or anticoagulants. Patient was seen by Dr. Robson Brown recently for dystonia. It was felt to be related to Reglan. Patient has history of Parkinson's disease. Review of Systems ROS unobtainable: due to mental status Past Medical History Past Medical History: Heart Failure, CVA/TIA, GERD/Reflux, Hyperlipidemia, Hypertension, Musculoskeletal Disorder, Neurologic Disorder, Renal Disease, Thyroid Disorder Additional Past Medical History / Comment(s): Pt recently admitted to [facility] on 03/10/21 with abdominal pain, N/V, EGD showed gastritis, possible ileus, UTI, acute pyelonephritis. Other hx: CVAs/expressive aphasia and L sided weakness, TIAs, Parkinsons disease, CKD stage III, bilateral hydronephrosis with R side worse, recurrent UTIs, chronic anemia, covid + 01/2021, incontinence urine/stool, hypothyroid. History of Any Multi-Drug Resistant Organisms: None Reported Past Surgical History: Appendectomy, Cholecystectomy, Hernia Repair, Hysterectomy, Orthopedic Surgery Additional Past Surgical History / Comment(s): 12/26/20 cysto with R ureteral stent, hysterectomy with bilateral oophorectomy, abdominal hernia repair, EGD, colonoscopy, hammer toe surgery Past Anesthesia/Blood Transfusion Reactions: No Reported Reaction Smoking Status: Former smoker - Past Family History Father History Unknown: Yes Family Medical History: No Reported History Mother Family Medical History: Hypertension Additional Family Medical History / Comment(s): Mother lived to be about 85 yrs old. Medications and Allergies Home Medications Medication Instructions Recorded Confirmed Type Escitalopram Oxalate [Lexapro] 10 mg PO DAILY@0800 09/07/14 04/15/21 History Omeprazole [PriLOSEC] 20 mg PO BID@0800,1700 09/07/14 04/15/21 History Pravastatin Sodium [Pravachol] 80 mg PO HS 09/07/14 04/15/21 History Ergocalciferol (Vitamin D2) 1,250 mcg PO Q14D@1200 05/19/19 04/15/21 History [Drisdol (50,000 Iu)] Levothyroxine Sodium [Synthroid] 150 mcg PO DAILY@0800 05/19/19 04/15/21 History Pramipexole [Mirapex] 1 mg PO HS 05/19/19 04/15/21 History calcitrioL [Rocaltrol] 0.25 mcg PO SUMOTUWETHFR@1200 05/19/19 04/15/21 History Carbidopa-Levodopa 25-100 mg 1 tab PO TID@0800,1200,2100 12/24/20 04/15/21 History [Sinemet 25-100 mg] Carbidopa-Levodopa 25-100 mg 2 tab PO AC-SUPPER@1700 12/24/20 04/15/21 History [Sinemet 25-100 mg] Metoprolol Tartrate [Lopressor] 50 mg PO BID@0800,1700 12/24/20 04/15/21 History Potassium Chloride ER [K-Dur 20] 20 meq PO DAILY@1200 12/24/20 04/15/21 History polyethylene glycoL 3350 [Miralax] 17 gm PO DAILY PRN #0 powd.pack 01/01/21 04/15/21 Rx Sennosides-Docusate Sodium 1 tab PO BID@0800,1700 01/24/21 04/15/21 History [Senokot-S] Ascorbic Acid [Vitamin C] 1,000 mg PO DAILY@1200 03/10/21 04/15/21 History Magnesium Oxide [Mag-Ox] 400 mg PO TID@0800,1200,1700 03/10/21 04/15/21 History Melatonin 5 mg PO HS tablet 03/18/21 04/15/21 Rx Acetaminophen Tab [Tylenol] 650 mg PO Q6HR PRN 04/15/21 04/15/21 History Diclofenac Sodium [Voltaren Gel] 1 applic TOPICAL QID@08,,,04/15/21 04/15/21 History Dicyclomine [Bentyl] 10 mg PO QID@08,,,04/15/21 04/15/21 History Ensure Clear 120 ml PO BID@0800,1700 04/15/21 04/15/21 History Lactose-Reduced Food [Ensure Plus] 120 ml PO DAILY@1200 04/15/21 04/15/21 History Magnesium Hydroxide [Milk of 7,200 mg PO Q48H PRN 04/15/21 04/15/21 History Magnesia Concentrate] Na Phos,M-B/Na Phos,Di-Ba [Fleet 133 ml RECTAL DAILY PRN 04/15/21 04/15/21 History Adult] Nystatin 100,000 Unit/gm Powd 1 applic TOPICAL TID 04/15/21 04/15/21 History [Mycostatin Powder] Ondansetron HCl [Zofran] 4 mg PO DAILY@0600 04/15/21 04/15/21 History Ondansetron Odt [Zofran Odt] 4 mg PO Q8H PRN 04/15/21 04/15/21 History Promethazine Hcl 25mg/Ml 25 mg IM Q6H PRN 04/15/21 04/15/21 History Salonpas Lidocaine Patch 1 patch TRANSDERM DAILY PRN 04/15/21 04/15/21 History bisacodyL [Bisacodyl] 10 mg RECTAL DAILY PRN 04/15/21 04/15/21 History dronabinoL [Marinol] 2.5 mg PO TID@0800,1200,1700 04/15/21 04/15/21 History Allergies Allergy/AdvReac Type Severity Reaction Status Date / Time amiodarone [From Cordarone] Allergy Anaphylaxis Verified 04/15/21 17:19 cyclobenzaprine Allergy Rash/Hives Verified 04/15/21 17:19 [From Flexeril] prochlorperazine Allergy Rash/Hives Verified 04/15/21 17:19 metoclopramide AdvReac Severe Unknown Verified 04/15/21 17:19 Physical Examination - Vital Signs Vital Signs: Vital Signs Temp Pulse Resp BP Pulse Ox 04/17/21 15:50 90 20 155/68 95 04/17/21 15:43 99.9 F H 04/17/21 14:26 100.4 F H 86 20 159/81 96 04/17/21 11:26 100.2 F H 04/17/21 09:57 100.3 F H 91 20 180/83 96 04/17/21 07:32 94 20 187/84 95 04/17/21 06:31 105 H 16 178/86 98 04/17/21 01:00 92 16 178/84 96 04/16/21 23:00 96 16 171/84 96 04/16/21 20:14 77 16 166/81 98 04/16/21 18:30 99.3 F 106 H 22 96 04/16/21 17:16 90 20 169/81 98 Intake and Output 04/17/21 04/17/21 04/17/21 06:59 14:59 22:59 Other: Weight 89.358 kg Patient is an elderly female, who is laying in the bed, listless, keeps her eyes closed, but did open her eyes slightly to calling her name. Patient would not answer to any question. She would not nod yes or no to any question presented. She did make some eye contact. Patient is encephalopathic, cannot assess orientation. Speech and language functions cannot be assessed. Attention, concentration and fund of knowledge is very limited, as patient is mute. On cranial examination, pupils are round and reacting to light, visual rose could not be checked, extraocular muscles are intact with no nystagmus. Face is symmetric, patient did not protrude her tongue. Palatal elevation and sensation could not be checked, hearing is decreased and shoulder shrug could not be checked, facial sensation could not be checked. On muscle strength testing, patient is severely rigid bilaterally in the arms and legs. There is superimposed left hemiparesis noticeable. No resting tremors noted. Patient is severely bradykinetic. Patient would hold her arm up, slightly catatonic. Deep tendon reflexes are hypoactive and plantars are upgoing bilaterally. Sensory to touch could not be checked. Cerebellar function could not be checked. Tone is severely increased and bulk of muscles normal. Gait cannot be checked. On general examination, there is no carotid bruit or murmur, S1-S2 audible. Abdomen is soft nontender. Chest is clear. No edema. Results - Laboratory Findings CBC and BMP: 04/17/21 06:01 04/17/21 16:59 Abnormal Lab Findings: Abnormal Labs 04/15/21 04/15/21 04/15/21 17:15 17:15 17:15 WBC RBC 3.20 L Hgb 8.8 L Hct 27.4 L RDW 17.6 H Neutrophils # PT 12.3 H INR 1.2 H Potassium Carbon Dioxide Glucose POC Glucose (mg/dL) Calcium Magnesium AST Total Protein Albumin Urine Appearance Cloudy H Urine Protein 1+ H Urine Ketones 1+ H Urine Blood Small H Ur Leukocyte Esterase Large H Urine WBC 21 H Urine Bacteria Rare H Urine Mucus Rare H 04/15/21 04/16/21 04/16/21 17:15 14:53 15:24 WBC 13.1 H RBC 3.44 L Hgb 9.6 L Hct 29.4 L RDW 17.7 H Neutrophils # 11.1 H PT INR Potassium Carbon Dioxide 31 H Glucose POC Glucose (mg/dL) 144 H Calcium Magnesium AST 12 L Total Protein 5.6 L Albumin 3.0 L Urine Appearance Urine Protein Urine Ketones Urine Blood Ur Leukocyte Esterase Urine WBC Urine Bacteria Urine Mucus 04/17/21 04/17/21 04/17/21 06:01 06:01 06:01 WBC RBC 2.88 L Hgb 8.0 L D Hct 25.1 L RDW 17.9 H Neutrophils # PT INR Potassium 2.8 L Carbon Dioxide Glucose 104 H POC Glucose (mg/dL) Calcium 8.1 L Magnesium 1.4 L AST Total Protein Albumin Urine Appearance Urine Protein Urine Ketones Urine Blood Ur Leukocyte Esterase Urine WBC Urine Bacteria Urine Mucus Assessment and Plan Assessment: * Altered mental status, likely due to toxic metabolic encephalopathy. Patient has not been able to eat anything, not able to take oral medication for last 48 hours. She has not received her Sinemet and appears to be severely rigid and stiff with severe parkinsonian symptoms. * History of CVA with aphasia and left hemiparesis * Parkinson's disease, advanced * Dementia * Constipation with fecal impaction * Bilateral hydronephrosis. Awaiting cystoscopy. Plan: * Patient has presented with toxic metabolic encephalopathy. On top of it, patient has not been able to eat anything, or able to take her medications. She has not received her parkinsonian medications for last 48 hours, and as a result, has developed severe parkinsonism. * Consider feeding tube, if not possible then PEG tube placement. Resume Sinemet as early as possible. * Patient's computed tomography scan of the head shows no acute process. Her examination is nonfocal. * Patient has history of CVA, currently not on any antiplatelet medication. Suggest starting aspirin 81 mg and Lipitor 20 mg, when able to take by mouth. * Check B12, folate, TSH, A1c. * We will follow clinically.
[2021-04-17] MEDS ORDERED: PRAMIPEXOLE 1 MG TAB PO SCH (21:00)
[2021-04-17] MEDS: PRAVASTATIN SODIUM 80 MG TAB PO SCH (22:03)
[2021-04-18] MEDS ORDERED: MAGNESIUM SULFATE-D5W PMX 1 GM in DEXTROSE/WATER 1 100ML.BAG IVPB ONE (03:14)
[2021-04-18] MEDS ORDERED: POTASSIUM CHLORIDE 10 MEQ in WATER FOR INJECTION 1 100ML.BAG IVPB STA (03:20)
[2021-04-18] MEDS: POTASSIUM CHLORIDE 10 MEQ in WATER FOR INJECTION 1 100ML.BAG IVPB SCH ×11 (03:29→23:00)
[2021-04-18] MEDS: VANCOMYCIN 1,500 MG in SODIUM CHLORIDE 0.9% 250 ML IVPB SCH ×2 (03:32→20:48)
[2021-04-18] MEDS: MAGNESIUM SULFATE-D5W PMX 1 GM in DEXTROSE/WATER 1 100ML.BAG IVPB SCH ×3 (03:49→06:27)
[2021-04-18] MEDS: SODIUM CHLORIDE 0.9% 1,000 ML IV SCH ×3 (06:27→23:46)
[2021-04-18] MEDS ORDERED: ESCITALOPRAM 10 MG TAB PO SCH (08:00)
[2021-04-18] MEDS: POTASSIUM CHLORIDE ER 20 MEQ TAB.ER PO SCH (08:27)
[2021-04-18] MEDS: LEVOTHYROXINE 75 MCG TAB PO SCH ×2 (08:27→08:37)
[2021-04-18] MEDS: MAGNESIUM OXIDE 400 MG TAB PO SCH ×4 (08:27→15:43)
[2021-04-18] MEDS: SENNOSIDES-DOCUSATE SODIUM 1 EACH TAB PO SCH ×3 (08:27→15:43)
[2021-04-18] MEDS: CARBIDOPA-LEVODOPA 25-100 MG 1 EACH TAB PO SCH ×5 (08:27→20:55)
[2021-04-18] MEDS: PANTOPRAZOLE 40 MG/10 ML VIAL IVP SCH (08:28)
[2021-04-18] MEDS: NYSTATIN 100,000 UNIT/GM POWD 15 GM TOPICAL SCH ×3 (08:28→20:49)
[2021-04-18] MEDS: polyethylene glycoL 3350 17 GM POWD.PACK PO SCH (08:28)
[2021-04-18] MEDS: METOPROLOL TARTRATE 50 MG TAB PO SCH ×3 (08:28→15:43)
[2021-04-18 10:21] LABS: T4, Free (Free Thyroxine) 0.8 ng/dL (0.78-2.19)
[2021-04-18 11:00] LABS: African American GFR (CKD) >90 (>60 ml/min/1.73 sqM); Anion Gap 6 mmol/L; Blood Urea Nitrogen 6 mg/dL (7-17); Calcium 8.2 mg/dL (8.4-10.2); Carbon Dioxide 29 mmol/L (22-30); Chloride 103 mmol/L (98-107); Glucose 82 mg/dL (74-99); Non-African American GFR(CKD) 86 (>60 ml/min/1.73 sqM); Sodium 138 mmol/L (137-145)
[2021-04-18 11:05] LABS: Magnesium 2.2 mg/dL (1.6-2.3); Potassium 3.2 mmol/L (3.5-5.1)
[2021-04-18 11:27] LABS: Anisocytosis Slight; Basophils % (A) 0 %; Eosinophils # (A) 0.2 k/uL (0-0.7); Eosinophils % (A) 2 %; HCT 26.4 % (34.0-46.0); HGB 8.5 gm/dL (11.4-16.0); Hypochromasia Moderate; Lymphocytes % (A) 10 %; MCH 27.9 pg (25.0-35.0); MCHC 32.1 g/dL (31.0-37.0); MCV 87.1 fL (80.0-100.0); Mean Platelet Volume 11.2; Monocytes # (A) 0.6 k/uL (0-1.0); Monocytes % (A) 6 %; Neutrophils # (A) 8.6 k/uL (1.3-7.7); Neutrophils % (A) 81 %; Platelet Count 171 k/uL (150-450); Poikilocytosis Slight; RBC 3.03 m/uL (3.80-5.40); RDW 17.9 % (11.5-15.5); WBC 10.6 k/uL (3.8-10.6)
--- NOTE | 2021-04-18 13:41 | EEG ---
ELECTROENCEPHALOGRAM REPORT DATE OF SERVICE: 04/18/2021 PREAMBLE: This is a 75-year-old female with Parkinson disease, presented with altered mental status. This study is performed to evaluate for any encephalopathy or epileptiform activity. EEG FINDINGS: This is a 21 channel routine EEG recording in a patient utilizing 10/20 international system with referential and bipolar montages. Background consists of a well- developed, moderately well regulated, mixed frequencies of 6 hertz theta, with some alpha and some fast frequency beta activity. Background does not seem to be clearly reactive to eye opening and closing. The different stages of sleep were not seen. Photic stimulation was not performed. Hyperventilation was not done. No focal or generalized epileptiform activity was seen. IMPRESSION: This is an abnormal EEG due to the background slowing of mild to moderate degree. This is suggestive of generalized cerebral dysfunction as can be seen with toxic metabolic encephalopathy or due to diffuse structural brain abnormality or medication effect. No epileptiform activity was seen. MMODL / IJN: [id number] / MTDD
[2021-04-18 14:33] LABS: Hemoglobin A1C 5.9 % (4.0-6.0)
--- NOTE | 2021-04-18 15:32 | P.PN ---
Subjective Progress Note Date: 04/18/21 Patient was seen for a follow-up. Patient is laying comfortably in the bed. She continues to be encephalopathic. When I asked how she was feeling, states "not well". However she could not tell what was bothering her. Would not answer if she has any pain anywhere. Patient was able to tell me her name. Would not follow commands. He offers no complaints. Objective - Vital Signs Vital signs: Vital Signs Temp 99.0 F 04/18/21 07:00 Pulse 77 04/18/21 07:00 Resp 20 04/18/21 07:00 BP 156/74 04/18/21 07:00 Pulse Ox 96 04/18/21 07:00 Intake & Output 04/17/21 04/18/21 04/18/21 18:59 06:59 18:59 Intake Total 800 Output Total 600 Balance -600 800 Weight 89.358 kg 89.358 kg Intake: Intake, IV Titration 800 Amount Potassium Chloride 10 meq 400 In Water For Injection 1 100ml.bag @ 100 mls/hr IVPB Q1HR [facility]DOMERO Rx#: [id number] Sodium Chloride 0.9% 1, 400 000 ml @ 130 mls/hr IV . Q7H42M BALDOMERO Rx#:[id number] Output: Urine 600 Other: Voiding Method Diaper # Voids 3 - Exam Patient continues to be encephalopathic. Spoke just a couple words. While I was checking her tone of upper extremities, patient stated "let it go". Pupils are round and reacting, visual rose could not be tested. Face is symmetric. Patient would not protrude her tongue. Palate cannot be checked. Hearing is probably decreased. Patient would not shrug her shoulder. It appears her right arm was tender. Tone is very severely increased in the right arm, more than the left. Patient is very bradykinetic. Her frequency of blinking is severely reduced. Patient has Mask face. No resting tremors noted. Cerebellar functions, gait, sensations cannot be checked. - Labs CBC & Chem 7: 04/18/21 10:11 04/18/21 10:11 Labs: Abnormal Lab Results - Last 24 Hours (Table) 04/17/21 04/18/21 04/18/21 Range/Units 16:59 07:20 10:11 RBC 3.03 L (3.80-5.40) m/uL Hgb 8.5 L (11.4-16.0) gm/dL Hct 26.4 L (34.0-46.0) % RDW 17.9 H (11.5-15.5) % Neutrophils # 8.6 H (1.3-7.7) k/uL Potassium 3.3 L (3.5-5.1) mmol/L BUN (7-17) mg/dL Calcium (8.4-10.2) mg/dL Magnesium 1.4 L (1.6-2.3) mg/dL TSH 6.270 H (0.465-4.680) mIU/L 04/18/21 Range/Units 10:11 RBC (3.80-5.40) m/uL Hgb (11.4-16.0) gm/dL Hct (34.0-46.0) % RDW (11.5-15.5) % Neutrophils # (1.3-7.7) k/uL Potassium 3.2 L (3.5-5.1) mmol/L BUN 6 L (7-17) mg/dL Calcium 8.2 L (8.4-10.2) mg/dL Magnesium (1.6-2.3) mg/dL TSH (0.465-4.680) mIU/L Microbiology - Last 24 Hours (Table) 04/15/21 17:15 Urine Culture - Final Urine,Clean Catch Enterococcus faecium 04/15/21 18:10 Blood Culture - Preliminary Blood No Growth after 48 hours 04/15/21 17:15 Blood Culture - Preliminary Blood No Growth after 48 hours Assessment and Plan Assessment: * Altered mental status, likely due to toxic metabolic encephalopathy. Patient has not been able to eat anything, not able to take oral medication for last 72 hours. She has not received her Sinemet and appears to be severely rigid and stiff with severe parkinsonian symptoms. * History of CVA with aphasia and left hemiparesis * Parkinson's disease, advanced * Dementia * Constipation with fecal impaction * Bilateral hydronephrosis. Awaiting cystoscopy. Plan: * Patient has presented with toxic metabolic encephalopathy. On top of it, patient has not been able to eat anything, or able to take her medications. She has not received her parkinsonian medications for last 48 hours, and as a result, has developed severe parkinsonism. * Consider feeding tube, if not possible then PEG tube placement. Resume Sinemet as early as possible. * Patient's computed tomography scan of the head shows no acute process. Her limited examination is nonfocal. * EEG was performed today, which was abnormal due to background slowing of mild to moderate degree. This is suggestive of generalized cerebral dysfunction as can be seen with toxic metabolic encephalopathy or due to diffuse structural brain abnormality or medication effect. No epileptiform activity was seen. * Patient has history of CVA, currently not on any antiplatelet medication. Suggest starting aspirin 81 mg and Lipitor 20 mg, when able to take by mouth. * Await B12, folate levels, TSH 6.27, mildly elevated. Would defer to IM to address thyroid dysfunction. A1c 5.9. * Dr. Robson Brown Will resume neurology service from a.m.
--- NOTE | 2021-04-18 16:37 | CONS ---
CONSULTATION REASON FOR CONSULT: Obstructive uropathy/hypokalemia. HISTORY OF PRESENT ILLNESS: Patient is a 75-year-old female who has a history of obstructive uropathy with bilateral hydronephrosis with history of right ureteral stent placement. She also has a history of CVA with expressive aphasia and left sided weakness. She was admitted from the halfway with change in mentation, abnormal behavior and some posturing noted as well. Upon admission patient is noted to have a potassium of 4, which eventually dropped to 2.8 mEq/L. Her serum creatinine has been at 7.9 mg/dL. The patient has been voiding. She is incontinent and voids in a diaper/brief. She is currently maintained on IV fluids. PAST MEDICAL HISTORY: History of CVA with left-sided residual weakness, history of obstructive uropathy with right ureteral stent placement, hyperlipidemia, hypertension, hypothyroidism, history of UTI, pyelonephritis, history of COVID pneumonia in January of 2021, hydronephrosis as mentioned earlier. PAST SURGICAL HISTORY: Appendectomy, cholecystectomy, hernia repair, hysterectomy, right ureteral stent placement, bilateral oophorectomy, abdominal hernia repair, EGD, colonoscopy, hammertoe surgery. MEDICATIONS: Medications prior to admission included Lexapro, Prilosec, Pravachol, Synthroid, Drisdol, Mirapex, Rocaltrol, Sinemet, Lopressor, potassium, magnesium, Bentyl, Voltaren gel, Mycostatin powder, Zofran, Marinol, Bisacodyl. ALLERGIES: Include AMIODARONE, FLEXERIL, PROCHLORPERAZINE, METOCLOPRAMIDE. REVIEW OF SYSTEMS: Review of systems cannot be obtained. It does not appear that the patient has obvious GI bleed. No significant respiratory symptoms currently. She is having an EEG done. PHYSICAL EXAMINATION: Patient is comfortable. She only blinks. No posturing noted. She is having an EEG done. She does not respond much. Blood pressure is 156/74, heart rate 77 per minute. Patient is afebrile. Examination of the heart S1, S2. Examination of the lungs, bilateral breath sounds are heard. Abdomen is soft, nontender. Examination of lower extremities shows no significant edema. MEDICAID NURSE exam shows patient does not communicate much. She is blinking but is not talking. LABS: Show sodium 138, potassium 3.2, chloride 103, BUN 6, serum creatinine 0.68, hemoglobin 8.5 g/dL. TSH 6.72. Magnesium was 1.4. ASSESSMENT: 1. Hypokalemia associated with decreased intake, maintained on supplementation prior to admission, currently improving post supplementation. The patient was also hypomagnesemic and this has been replaced. 2. Hypothyroidism. 3. History of CVA with expressive aphasic and residual left-sided weakness. 4. Obstructive uropathy with right hydronephrosis with right ureteral stent and mild hydronephrosis on left side as well. The hydronephrosis is unchanged according to CT scan and patient's creatinine is 0.7-0.6 mg/dL. Therefore, I will hold off on urology consult for now. 5. Anemia, rule out iron deficiency. 6. Urinary tract infection, urine culture growing Enterococcus faecium, currently patient is not on any antibiotics. I am not sure if this is chronic bacteruria given her history of urological intervention and stents previously. At this time clinically the patient does not have any fever. Her white count was elevated, it is decreased now. Consider adding antibiotics given the altered mentation at the time of admission. PLAN: Replace potassium. Check iron profile. Repeat labs in a.m. Continue with IV fluids for now. Thank you for this consultation. We will continue to follow the patient with you during her hospitalization. MMODL / IJN: [id number] /
[2021-04-18] MEDS ORDERED: INSULIN ASPART (NovoLOG) 100 UNIT/ML VIAL SQ SCH (19:30)
[2021-04-18] MEDS ORDERED: VANCOMYCIN IV PER PHARMACY 1 EACH MISC MISCELLANE PRN (19:31)
--- NOTE | 2021-04-18 19:45 | P.PN ---
Subjective Progress Note Date: 04/18/21 This is a 75-year-old female with past medical history of UTI Strep agalactiae - (group b) with Pyelonephritis, severe right hydronephrosis with right ureteral stent insertion to 12/26/20,CVA with residual left-sided weakness, expressive aphasia/TIA, hyperlipidemia, hypertension, chronic renal failure, hypo thyroidism, obesity, anxiety, bipolar, depression, former nicotine dependence presented to the ER via EMS for [facility] with reports that patient had mental status changes, combative over the last few days with an episode of vomiting. Patient's baseline is chronic residual left-sided weakness from prior CVA with expressive aphasia. Patient currently nonverbal, rigid, posturing, attempting to communicate with blinking of right eye. Febrile, T-max 100.3, WBC 13.1 yesterday down to 7.9. Maintained on vancomycin. Hemoglobin 8, platelets 217, glucose 104, potassium 2.8, magnesium 1.4 both being supplemented. Sodium 140, BUN 9, creatinine 0.73. Lactic acid 0.8. UA reporting urine WBCs 21, large leukocytes 1+ ketones. EKG reported normal sinus rhythm, left ventricular hypertrophy, chest x-ray reporting bibasilar atelectasis/subsegmental consolidation. Baca virus not detected. 04/18/[address] reported chronic appearing periventricular white matter ischemic type changes, stable .evaluated by neurology who attributes clinical presentation to suspected severe Parkinsonian from not having Sinemet for a few days. PEG tube placement pending .maintained on IV fluid hydration. Remains encephalopathic,more alert today, minimally conversing, not following commands. EEG/EMG completed, results pending T-max 99.9, normal WBC. Urine culture reporting enterococcus faecium.preliminary blood cultures reporting no growth at 48 hours Continues on vancomycin, creatinine 0.68. Hemoglobin 8.5, platelets 171. Potassium 3.2, magnesium 2.2. Objective - Vital Signs Vital signs: Vital Signs Temp 99.0 F 04/18/21 15:00 Pulse 83 04/18/21 15:00 Resp 16 04/18/21 15:00 BP 159/70 04/18/21 15:00 Pulse Ox 95 04/18/21 15:00 Intake & Output 04/18/21 04/18/21 04/19/21 06:59 18:59 06:59 Intake Total 800 Balance 800 Weight 89.358 kg Intake: Intake, IV Titration 800 Amount Potassium Chloride 10 meq 400 In Water For Injection 1 100ml.bag @ 100 mls/hr IVPB Q1HR [facility] Rx#: [id number] Sodium Chloride 0.9% 1, 400 000 ml @ 130 mls/hr IV . Q7H42M [facility] Rx#:[id number] Other: Voiding Method Diaper # Voids 3 4 - Exam - Exam General: Lying in bed, rigid, nonverbal, alert and oriented to person, minimally converses, appears comfortable HEENT: PERRL. EOMI. No pharyngeal erythema or exudate. Neck: Supple, no JVD, No adenopathy. Cardiac: Heart regular in rate and rhythm. No S3. No S4. No clicks, rubs. No murmur. Lungs: Clear breath sounds, no rhonchi, bilateral bases diminished. Abdomen: Soft, nondistended, mild diffuse tenderness, no guarding, no rigidity .No mass palpable, No organomegaly. Positive bowel sounds. Extremities: trace edema no cyanosis no claudication normal pulses. Skin: Warm and dry, flaky rash in skin folds Neurologic: Unable to evaluate fully -rigid , minimally verbal, mild agitation/not following commands, in a patient with baseline expressive aphasia, chronic residual left-sided weakness. ] - Labs CBC & Chem 7: 04/18/21 10:11 04/18/21 10:11 Labs: Abnormal Lab Results - Last 24 Hours (Table) 04/18/21 04/18/21 04/18/21 Range/Units 07:20 10:11 10:11 RBC 3.03 L (3.80-5.40) m/uL Hgb 8.5 L (11.4-16.0) gm/dL Hct 26.4 L (34.0-46.0) % RDW 17.9 H (11.5-15.5) % Neutrophils # 8.6 H (1.3-7.7) k/uL Potassium 3.2 L (3.5-5.1) mmol/L BUN 6 L (7-17) mg/dL Calcium 8.2 L (8.4-10.2) mg/dL TSH 6.270 H (0.465-4.680) mIU/L Microbiology - Last 24 Hours (Table) 04/15/21 17:15 Urine Culture - Final Urine,Clean Catch Enterococcus faecium 04/15/21 18:10 Blood Culture - Preliminary Blood No Growth after 48 hours 04/15/21 17:15 Blood Culture - Preliminary Blood No Growth after 48 hours Assessment and Plan Assessment: Acute toxic, metabolic encephalopathy,brain CT reported no acute infarcts, chronic stable changes, in a patient with history of CVA, possibly secondary to lack of Sinemet, levels ordered, suspect severe parkinsonism,Neuro workup in progress. Acute UTI, enterococcus faecium, in a patient with history of recurrent UTIs, recent acute UTI with Enterobacter aerogenes Bilateral hydronephrosis,no change in the right-sided hydronephrosis. Right ureteral stent insertion 01/06/21, eventually cystoscopy once hemodynamically stable. Hypokalemia Hypomagnesemia Chronic renal failure stage II Chronic congestive heart failure, diastolic dysfunction Hypertension Hyperlipidemia chronic renal failure secondary to nephrosclerosis, baseline 1.2-1.5 Parkinson's disease, advanced History of CVA with residual left-sided weakness and expressive aphasia, TIA; currently not on any antiplatelets, PCP verify at office. Hypothyroidism Bipolar disorder Obesity, BMI 36 Normocytic anemia Plan: Continue on current medication regime ,monitoring and symptomatic treatment. Continues on vancomycin-Will change to pharmacy to dose. Infectious disease consulted. Close monitoring of renal function and electrolytes , with repeat labs ordered for a.m. Supplementation of potassium with follow-up potassium level later this evening . Neurology workup in progress. Sinemet to be resumed pending PEG tube placement.While nothing by mouth, Accu-Cheks every 6 hours .Prognosis guarded given multiple complex medical issues. The impression and plan of care has been dictated as directed. : I performed a history and examination of this patient, discussed the same with the dictator. I agree with the dictator's note ,documented as a scribe. Any additional findings or plans will be noted.
[2021-04-18] MEDS ORDERED: Potassium Replacement Protocol 1 EACH MISC MISCELLANE PRN (20:38)
[2021-04-18] MEDS: PRAVASTATIN SODIUM 80 MG TAB PO SCH (20:55)
[2021-04-18 21:15] LABS: Glucose,Whole Blood 81 mg/dL (75-99)
[2021-04-19] MEDS: POTASSIUM CHLORIDE 10 MEQ in WATER FOR INJECTION 1 100ML.BAG IVPB SCH (00:11)
--- NOTE | 2021-04-19 04:20 | P.GSCN ---
History of Present Illness Consult date: 04/18/21 History of present illness: Patient resides in detention, history of CVA and nonverbal. HPI from chart review. Patient has been having dysphagia and unable to take her PO meds. Surgery consulted for PEG placement Past Medical History Past Medical History: Heart Failure, CVA/TIA, GERD/Reflux, Hyperlipidemia, Hypertension, Musculoskeletal Disorder, Neurologic Disorder, Renal Disease, Thyroid Disorder Additional Past Medical History / Comment(s): Pt recently admitted to [facility] on 03/10/21 with abdominal pain, N/V, EGD showed gastritis, possible ileus, UTI, acute pyelonephritis. Other hx: CVAs/expressive aphasia and L sided weakness, TIAs, Parkinsons disease, CKD stage III, bilateral hydronephrosis with R side worse, recurrent UTIs, chronic anemia, covid + 01/2021, incontinence urine/stool, hypothyroid. History of Any Multi-Drug Resistant Organisms: None Reported Past Surgical History: Appendectomy, Cholecystectomy, Hernia Repair, Hysterectom y, Orthopedic Surgery Additional Past Surgical History / Comment(s): 12/26/20 cysto with R ureteral stent, hysterectomy with bilateral oophorectomy, abdominal hernia repair, EGD, colonoscopy, hammer toe surgery Past Anesthesia/Blood Transfusion Reactions: No Reported Reaction Smoking Status: Former smoker - Past Family History Father History Unknown: Yes Family Medical History: No Reported History Mother Family Medical History: Hypertension Additional Family Medical History / Comment(s): Mother lived to be about 85 yrs old. Medications and Allergies Home Medications Medication Instructions Recorded Confirmed Type Escitalopram Oxalate [Lexapro] 10 mg PO DAILY@0800 09/07/14 04/15/21 History Omeprazole [PriLOSEC] 20 mg PO BID@0800,1700 09/07/14 04/15/21 History Pravastatin Sodium [Pravachol] 80 mg PO HS 09/07/14 04/15/21 History Ergocalciferol (Vitamin D2) 1,250 mcg PO Q14D@1200 05/19/19 04/15/21 History [Drisdol (50,000 Iu)] Levothyroxine Sodium [Synthroid] 150 mcg PO DAILY@0800 05/19/19 04/15/21 History Pramipexole [Mirapex] 1 mg PO HS 05/19/19 04/15/21 History calcitrioL [Rocaltrol] 0.25 mcg PO SUMOTUWETHFR@1200 05/19/19 04/15/21 History Carbidopa-Levodopa 25-100 mg 1 tab PO TID@0800,1200,2100 12/24/20 04/15/21 History [Sinemet 25-100 mg] Carbidopa-Levodopa 25-100 mg 2 tab PO AC-SUPPER@1700 12/24/20 04/15/21 History [Sinemet 25-100 mg] Metoprolol Tartrate [Lopressor] 50 mg PO BID@0800,1700 12/24/20 04/15/21 History Potassium Chloride ER [K-Dur 20] 20 meq PO DAILY@1200 12/24/20 04/15/21 History polyethylene glycoL 3350 [Miralax] 17 gm PO DAILY PRN #0 powd.pack 01/01/21 04/15/21 Rx Sennosides-Docusate Sodium 1 tab PO BID@0800,1700 01/24/21 04/15/21 History [Senokot-S] Ascorbic Acid [Vitamin C] 1,000 mg PO DAILY@1200 03/10/21 04/15/21 History Magnesium Oxide [Mag-Ox] 400 mg PO TID@0800,1200,1700 03/10/21 04/15/21 History Melatonin 5 mg PO HS tablet 03/18/21 04/15/21 Rx Acetaminophen Tab [Tylenol] 650 mg PO Q6HR PRN 04/15/21 04/15/21 History Diclofenac Sodium [Voltaren Gel] 1 applic TOPICAL QID@,,,04/15/21 04/15/21 History Dicyclomine [Bentyl] 10 mg PO QID@08,,,04/15/21 04/15/21 History Ensure Clear 120 ml PO BID@0800,1700 04/15/21 04/15/21 History Lactose-Reduced Food [Ensure Plus] 120 ml PO DAILY@1200 04/15/21 04/15/21 Hist ory Magnesium Hydroxide [Milk of 7,200 mg PO Q48H PRN 04/15/21 04/15/21 History Magnesia Concentrate] Na Phos,M-B/Na Phos,Di-Ba [Fleet 133 ml RECTAL DAILY PRN 04/15/21 04/15/21 History Adult] Nystatin 100,000 Unit/gm Powd 1 applic TOPICAL TID 04/15/21 04/15/21 History [Mycostatin Powder] Ondansetron HCl [Zofran] 4 mg PO DAILY@0600 04/15/21 04/15/21 History Ondansetron Odt [Zofran Odt] 4 mg PO Q8H PRN 04/15/21 04/15/21 History Promethazine Hcl 25mg/Ml 25 mg IM Q6H PRN 04/15/21 04/15/21 History Salonpas Lidocaine Patch 1 patch TRANSDERM DAILY PRN 04/15/21 04/15/21 History bisacodyL [Bisacodyl] 10 mg RECTAL DAILY PRN 04/15/21 04/15/21 History dronabinoL [Marinol] 2.5 mg PO TID@0800,1200,1700 04/15/21 04/15/21 History Allergies Allergy/AdvReac Type Severity Reaction Status Date / Time amiodarone [From Cordarone] Allergy Anaphylaxis Verified 04/15/21 17:19 cyclobenzaprine Allergy Rash/Hives Verified 04/15/21 17:19 [From Flexeril] prochlorperazine Allergy Rash/Hives Verified 04/15/21 17:19 metoclopramide AdvReac Severe Unknown Verified 04/15/21 17:19 Surgical - Exam Osteopathic Statement: *. No significant issues noted on an osteopathic structural exam other than those noted in the History and Physical/Consult. Vital Signs Temp Pulse Resp BP Pulse Ox 99.9 F H 72 18 172/82 92 L 04/15/21 16:32 04/15/21 16:32 04/15/21 16:32 04/15/21 16:32 04/15/21 16:32 - General no distress, no pain - Eyes PERRL - Neck trachea midline - Abdomen Abdomen: soft, non tender Results - Labs 04/18/21 10:11 04/19/21 02:07 Abnormal Lab Results - Last 24 Hours (Table) 04/18/21 04/18/21 04/18/21 Range/Units 07:20 10:11 10:11 RBC 3.03 L (3.80-5.40) m/uL Hgb 8.5 L (11.4-16.0) gm/dL Hct 26.4 L (34.0-46.0) % RDW 17.9 H (11.5-15.5) % Neutrophils # 8.6 H (1.3-7.7) k/uL Potassium 3.2 L (3.5-5.1) mmol/L BUN 6 L (7-17) mg/dL Calcium 8.2 L (8.4-10.2) mg/dL TSH 6.270 H (0.465-4.680) mIU/L 04/18/21 Range/Units 20:06 RBC (3.80-5.40) m/uL Hgb (11.4-16.0) gm/dL Hct (34.0-46.0) % RDW (11.5-15.5) % Neutrophils # (1.3-7.7) k/uL Potassium 3.1 L (3.5-5.1) mmol/L BUN (7-17) mg/dL Calcium (8.4-10.2) mg/dL TSH (0.465-4.680) mIU/L Microbiology - Last 24 Hours (Table) 04/15/21 18:10 Blood Culture - Preliminary Blood No Growth after 72 hours 04/15/21 17:15 Blood Culture - Preliminary Blood No Growth after 72 hours 04/15/21 17:15 Urine Culture - Final Urine,Clean Catch Enterococcus faecium Diabetes panel 04/18/21 04/18/21 04/18/21 Range/Units 07:20 07:21 10:11 Sodium Cancelled 138 Potassium Cancelled 3.2 L Chloride Cancelled 103 Carbon Dioxide Cancelled 29 BUN Cancelled 6 L Creatinine Cancelled 0.68 Glucose Cancelled 82 Hemoglobin A1c 5.9 (4.0-6.0) % Calcium Cancelled 8.2 L 04/18/21 04/19/21 Range/Units 20:06 02:07 Sodium Potassium 3.1 L 4.9 Chloride Carbon Dioxide BUN Creatinine Glucose Hemoglobin A1c (4.0-6.0) % Calcium Thyroid panel 04/18/21 Range/Units 07:20 TSH 6.270 H (0.465-4.680) mIU/L Calcium panel 04/18/21 04/18/21 Range/Units 07:20 10:11 Calcium Cancelled 8.2 L Pituitary panel 04/18/21 04/18/21 04/18/21 Range/Units 07:20 10:11 20:06 Sodium Cancelled 138 Potassium Cancelled 3.2 L 3.1 L Chloride Cancelled 103 Carbon Dioxide Cancelled 29 BUN Cancelled 6 L Creatinine Cancelled 0.68 Glucose Cancelled 82 Calcium Cancelled 8.2 L TSH 6.270 H (0.465-4.680) mIU/L 04/19/21 Range/Units 02:07 Sodium Potassium 4.9 Chloride Carbon Dioxide BUN Creatinine Glucose Calcium TSH (0.465-4.680) mIU/L Adrenal panel 04/18/21 04/18/21 04/18/21 Range/Units 07:20 10:11 20:06 Sodium Cancelled 138 Potassium Cancelled 3.2 L 3.1 L Chloride Cancelled 103 Carbon Dioxide Cancelled 29 BUN Cancelled 6 L Creatinine Cancelled 0.68 Glucose Cancelled 82 Calcium Cancelled 8.2 L 04/19/21 Range/Units 02:07 Sodium Potassium 4.9 Chloride Carbon Dioxide BUN Creatinine Glucose Calcium Assessment and Plan Assessment: Dysphagia Plan: Will plan for PEG tube placement
[2021-04-19 06:29] LABS: Folate, Serum 1.6 ng/mL
[2021-04-19 07:19] LABS: Glucose,Whole Blood 86 mg/dL (75-99)
[2021-04-19] MEDS: INSULIN ASPART (NovoLOG) 100 UNIT/ML VIAL SQ SCH ×4 (07:50→22:47)
[2021-04-19] MEDS ORDERED: FOLIC ACID 1 MG TAB PO SCH (09:00)
[2021-04-19] MEDS: LEVOTHYROXINE 75 MCG TAB PO SCH (09:13)
[2021-04-19] MEDS: CARBIDOPA-LEVODOPA 25-100 MG 1 EACH TAB PO SCH ×4 (09:13→20:24)
[2021-04-19] MEDS: METOPROLOL TARTRATE 50 MG TAB PO SCH ×2 (09:14→16:59)
[2021-04-19] MEDS: MAGNESIUM OXIDE 400 MG TAB PO SCH ×3 (09:14→16:59)
[2021-04-19] MEDS: SENNOSIDES-DOCUSATE SODIUM 1 EACH TAB PO SCH ×2 (09:15→16:59)
[2021-04-19] MEDS: polyethylene glycoL 3350 17 GM POWD.PACK PO SCH (09:16)
[2021-04-19] MEDS: PANTOPRAZOLE 40 MG/10 ML VIAL IVP SCH (09:19)
[2021-04-19 09:20] LABS: Anisocytosis Slight; Basophils # (A) 0.1 k/uL (0-0.2); Basophils % (A) 1 %; Eosinophils # (A) 0.4 k/uL (0-0.7); Eosinophils % (A) 4 %; HCT 25.8 % (34.0-46.0); HGB 8.4 gm/dL (11.4-16.0); Hypochromasia Slight; Lymphocytes # (A) 1.2 k/uL (1.0-4.8); Lymphocytes % (A) 11 %; MCH 27.3 pg (25.0-35.0); MCHC 32.6 g/dL (31.0-37.0); MCV 83.8 fL (80.0-100.0); Mean Platelet Volume 9.8; Microcytosis Slight; Monocytes # (A) 0.6 k/uL (0-1.0); Monocytes % (A) 6 %; Neutrophils % (A) 78 %; Platelet Count 248 k/uL (150-450); Poikilocytosis Slight; RBC 3.08 m/uL (3.80-5.40); RDW 17.9 % (11.5-15.5); WBC 10.2 k/uL (3.8-10.6)
[2021-04-19] MEDS: NYSTATIN 100,000 UNIT/GM POWD 15 GM TOPICAL SCH ×3 (09:21→20:24)
[2021-04-19 09:30] LABS: African American GFR (CKD) >90 (>60 ml/min/1.73 sqM); Anion Gap 12 mmol/L; Blood Urea Nitrogen 6 mg/dL (7-17); Calcium 8.8 mg/dL (8.4-10.2); Carbon Dioxide 23 mmol/L (22-30); Chloride 105 mmol/L (98-107); Glucose 77 mg/dL (74-99); Non-African American GFR(CKD) 87 (>60 ml/min/1.73 sqM); Potassium 3.5 mmol/L (3.5-5.1); Sodium 140 mmol/L (137-145)
[2021-04-19] MEDS ORDERED: FOLIC ACID 5 MG/ML 10 ML VIAL IV SCH (11:30)
--- NOTE | 2021-04-19 11:34 | P.PN ---
Subjective Progress Note Date: 04/19/21 I am seeing the patient for the first time. Please refer to Dr. Neville's note for detail neurological history and his assessment and plan. Per the patient's nurse likely she will be getting PEG tube today. Objective - Vital Signs Vital signs: Vital Signs Temp 99.3 F 04/19/21 07:00 Pulse 82 04/19/21 07:00 Resp 18 04/19/21 07:00 BP 183/69 04/19/21 07:00 Pulse Ox 96 04/19/21 07:00 Intake & Output 04/18/21 04/19/21 04/19/21 18:59 06:59 18:59 Intake Total 800 Output Total 203 Balance 800 -203 Weight 89.358 kg Intake: Intake, IV Titration 800 Amount Potassium Chloride 10 meq 400 In Water For Injection 1 100ml.bag @ 100 mls/hr IVPB Q1HR [facility] Rx#: [id number] Sodium Chloride 0.9% 1, 400 000 ml @ 130 mls/hr IV . Q7H42M [facility] Rx#:[id number] Output: Urine 200 Stool 3 Other: Voiding Method Diaper Diaper # Voids 4 - Exam GENERAL: The patient is lying in bed and is not in acute distress. NEUROLOGICAL: Higher mental function: The patient is awake, alert, oriented to self and time. She stated she is in the hospital but could not tell me which and even with options she would not tell which. She is very slow to respond Patient is following few simple commands (opening mouth and sticking her tongue out and lifting hands). Language is limited on assessment. Cranial nerves: The pupils are round, equal and reactive to light. Extraocular movement is tracking me throughout the room. No facial weakness noted throughout. She has mask-like face. Has moderate dysarthria. Otherwise could not assess rest of cranial nerves because of her condition. Motor: Gait is deferred because of lack of cooperation. The strength is attempting to raise bilateral upper extremities but was only able to raise bilateral wrist above gravity. Has some movement of toes antigravity antigravity. Otherwise no movement noted. Increase tone in upper and lower extremities. Increase tone over the wrist and elbows seems mild to moderate as well as knees. No resting tremor noted. Sensation: Could not assess. - Labs CBC & Chem 7: 04/19/21 08:08 04/19/21 08:08 Labs: Abnormal Lab Results - Last 24 Hours (Table) 04/18/21 04/18/21 04/18/21 Range/Units 10:11 10:11 20:06 RBC 3.03 L (3.80-5.40) m/uL Hgb 8.5 L (11.4-16.0) gm/dL Hct 26.4 L (34.0-46.0) % RDW 17.9 H (11.5-15.5) % Neutrophils # 8.6 H (1.3-7.7) k/uL Potassium 3.2 L 3.1 L (3.5-5.1) mmol/L BUN 6 L (7-17) mg/dL Calcium 8.2 L (8.4-10.2) mg/dL 04/19/21 04/19/21 Range/Units 08:08 08:08 RBC 3.08 L (3.80-5.40) m/uL Hgb 8.4 L (11.4-16.0) gm/dL Hct 25.8 L (34.0-46.0) % RDW 17.9 H (11.5-15.5) % Neutrophils # 8.0 H (1.3-7.7) k/uL Potassium (3.5-5.1) mmol/L BUN 6 L (7-17) mg/dL Calcium (8.4-10.2) mg/dL Microbiology - Last 24 Hours (Table) 04/15/21 18:10 Blood Culture - Preliminary Blood No Growth after 72 hours 04/15/21 17:15 Blood Culture - Preliminary Blood No Growth after 72 hours 04/15/21 17:15 Urine Culture - Final Urine,Clean Catch Enterococcus faecium Assessment and Plan Assessment: * Altered mental status, likely due to toxic metabolic encephalopathy and component of folate deficiency since lack of PO intake. Patient has not been able to eat anything, not able to take oral medication for last 72 hours. She has not received her Sinemet and appears to be severely rigid and stiff with severe parkinsonian symptoms. * Folate deficiency (level of 1.6) * History of CVA with aphasia and left hemiparesis * Parkinson's disease, advanced * Dementia * Constipation with fecal impaction * Bilateral hydronephrosis. Awaiting cystoscopy. Plan: * Patient has presented with toxic metabolic encephalopathy. On top of it, patient has not been able to eat anything, or able to take her medications. She has not received her parkinsonian medications for last 48 hours, and as a result, has developed severe parkinsonism. * Consider feeding tube, if not possible then PEG tube placement. Resume Sinemet as early as possible. * Patient's computed tomography scan of the head shows no acute process. Her limited examination is nonfocal. * EEG was performed on 04/18/2021: which is reported as abnormal due to background slowing of mild to moderate degree. This is suggestive of generalized cerebral dysfunction as can be seen with toxic metabolic encephalopathy or due to diffuse structural brain abnormality or medication effect. No epileptiform activity was seen. * Patient is on Sinemet 25/101 tablet 3 times a day and 2 tablets at supper (h ome medication). * Patient has history of CVA, currently not on any antiplatelet medication. Suggest starting aspirin 81 mg and Lipitor 20 mg, when able to take by mouth. * Patient vitamin B12 is 465 which is normal. Hemoglobin A1c is 5.9 which is considered normal. * The patient serum folate is 1.6 which is low (normal is >5.38). I started the patient on folic acid 2mg daily. * TSH 6.27, mildly elevated but free T4 is 0.80 (normal). Would defer to IM to address thyroid dysfunction. * Patient is schedule to get PEG tube placed today. * The patient needs to follow-up with her neurologist (Dr. Ayers) within 1-2 weeks as outpatient. The plan is discussed with the patient's nurse. Will follow-up with the patient sporadically. Robson Brown MD Neuro-Hospitalist Time with Patient: Less than 30
[2021-04-19 11:40] LABS: Glucose,Whole Blood 85 mg/dL (75-99)
--- NOTE | 2021-04-19 11:52 | P.PN ---
Subjective Progress Note Date: 04/19/21 Principal diagnosis: Altered mental status 75-year-old female patient currently resides in [facility] presented emergency room with mental status changes and has been compatible over the past several days is also not had episode of vomiting. 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 Jeff muñoz is also noted to have a former nicotine dependence. 04/19/2021 Currently patient sitting up in bed at this time, alert, but rarely answering questions. Occasionally she will answer questions by shaking her head yes or no. Patient denied chest pain or pressure, shortness of breath or diffic ulty breathing. She doesn't complain of generalized abdominal pain and has refused all oral medications since admission. Patient was noted be hypertensive IV antihypertensives ordered on a when necessary basis. Most recent set of vitals 98.3 oral temperature, pulse rate of 82, respiratory of 18, patient is 96% on room air with a blood pressure of 183/69 (IV hydralazine ordered for this pressure). Most recent lab work WBC is 10.2, hemoglobin 8.4, hematocrit 25.8, platelet count 248. Chemistry reveals a sodium 140, potassium 3.5, albumin of 6, creatinine 0.66, GFR of 87. Patient receiving hydration IV normal saline at 50 mL an hour. Objective - Vital Signs Vital signs: Vital Signs Temp 99.3 F 04/19/21 07:00 Pulse 82 04/19/21 07:00 Resp 18 04/19/21 07:00 BP 183/69 04/19/21 07:00 Pulse Ox 96 04/19/21 07:00 Intake & Output 04/18/21 04/19/21 04/19/21 18:59 06:59 18:59 Intake Total 800 Output Total 203 Balance 800 -203 Weight 89.358 kg Intake: Intake, IV Titration 800 Amount Potassium Chloride 10 meq 400 In Water For Injection 1 100ml.bag @ 100 mls/hr IVPB Q1HR [facility] Rx#: [id number] Sodium Chloride 0.9% 1, 400 000 ml @ 130 mls/hr IV . Q7H42M [facility] Rx#:[id number] Output: Urine 200 Stool 3 Other: Voiding Method Diaper Diaper Diaper External Catheter # Voids 4 - Exam GENERAL: Alert and oriented to person, appears comfortable, minimal interaction with questions, well-nourished and in no acute distress. HEAD: Atraumatic, normocephalic. EYES: Pupils equal round and reactive to light, extraocular movements intact, sclera anicteric, conjunctiva are normal. ENT:nares patent, oropharynx clear without exudates. Moist mucous membranes. NECK: Normal range of motion, supple without lymphadenopathy or JVD, no thyromegaly LUNGS: Breath sounds clear to auscultation bilaterally and equal. No wheezes rales or rhonchi. HEART: Regular rate and rhythm without murmurs, rubs or gallops.S1S2 Normal ABDOMEN: Soft, diffuse tenderness to palpation, normoactive bowel sounds. No guarding, no rebound. No masses appreciated. EXTREMITIES:no pitting or edema. No clubbing or cyanosis. NEUROLOGICAL: Cranial nerves II through XII grossly intact. Noncommunicative with speech, baseline aphasia, chronic left-sided weakness. PSYCH: Sad mood, flat affect, . SKIN: Warm, Dry, normal turgor, no rashes or lesions noted. - Labs CBC & Chem 7: 04/19/21 08:08 04/19/21 08:08 Labs: Abnormal Lab Results - Last 24 Hours (Table) 04/18/21 04/19/21 04/19/21 Range/Units 20:06 08:08 08:08 RBC 3.08 L (3.80-5.40) m/uL Hgb 8.4 L (11.4-16.0) gm/dL Hct 25.8 L (34.0-46.0) % RDW 17.9 H (11.5-15.5) % Neutrophils # 8.0 H (1.3-7.7) k/uL Potassium 3.1 L (3.5-5.1) mmol/L BUN 6 L (7-17) mg/dL Microbiology - Last 24 Hours (Table) 04/15/21 18:10 Blood Culture - Preliminary Blood No Growth after 72 hours 04/15/21 17:15 Blood Culture - Preliminary Blood No Growth after 72 hours 04/15/21 17:15 Urine Culture - Final Urine,Clean Catch Enterococcus faecium Assessment and Plan Assessment: Metabolic encephalopathy, possibly due to the lack of Sinemet, CT is negative for acute infarcts noted be chronic stable changes Acute UTI, enterococcus fascieum Bilateral hydronephrosis, right ureteral stent placed 01/05/2021 Hypomagnesemia resolved Hypokalemia resolved Chronic congestive heart failure Advanced Parkinson's Hyperlipidemia Hypertension Hypothyroidism Bipolar disorder Obesity Anemia Plan: Continue on current medication regimen at this time Continue with IV hydration PEG tube placement, per surgery Order labs for tomorrow Continue to monitor vitals and lab results and treat accordingly We'll add hydralazine IV as when necessary for blood pressure control We'll continue to follow closely and reassess tomorrow Time with Patient: Greater than 30
[2021-04-19] MEDS ORDERED: IV FLUID CONTINUATION 1,000 ML IV ONE (11:59)
[2021-04-19] MEDS ORDERED: FOLIC ACID 1 MG in SODIUM CHLORIDE 0.9% 50 ML IV SCH (12:00)
[2021-04-19] MEDS ORDERED: PROPOFOL 10 MG/ML 20 ML VIAL IV ONE (12:00)
[2021-04-19] MEDS: hydrALAZINE HCL 20 MG/ML 1 ML VIAL IVP PRN (13:00)
[2021-04-19] MEDS: VANCOMYCIN 1,500 MG in SODIUM CHLORIDE 0.9% 250 ML IVPB SCH (13:02)
--- NOTE | 2021-04-19 13:23 | P.OP ---
Date of Procedure: 04/19/21 Preoperative Diagnosis: Dysphagia Postoperative Diagnosis: Dysphagia Procedure(s) Performed: EGD with PEG placement Anesthesia: MAC Surgeon: Santiago Dempsey Estimated Blood Loss (ml): 2 Condition: stable Disposition: floor Description of Procedure: Patient was brought into the Endo suite and underwent sedation per department of anesthesia timeout performed correct patient correct procedure correct site was verified scope was passed down the oropharynx into the first and second portion of the duodenum with ease under direct visualization. No abnormalities noted within the duodenum it was withdrawn to the stomach and retroflexed all body and wall the stomach were inspected and no abnormalities were noted. Transillumination was performed on the anterior portion of the stomach and good transillumination was noted this was marked on the abdomen which previously been prepped and local anesthetic and find a needle was used to confirm placement. A small incision was made directly over this place and the cannulating needle was placed the sheath was left in place the needle removed and the wire was placed through the sheath this was snared with the endoscope and brought up through the mouth. The tube was attached and pulled down through into good position the marker was 2.5. At the skin. Endoscope was placed back down to confirm placement which was noted to be good with no bleeding. The tube was cut to the appropriate length and bumper was placed. It was sutured in place with 2-0 nyl on. Patient tolerated the procedure well there are no apparent complications
--- NOTE | 2021-04-19 13:24 | P.PN ---
Progress Note - Text Progress Note Date: 04/19/21 Patient underwent PEG tube placement today. She may have oral meds through PEG tube however do not start tube feeds for 24 hours patient can start trickle tube feeds in 24 hours. Recommend nutrition consultation.
[2021-04-19] MEDS: POTASSIUM CHLORIDE ER 20 MEQ TAB.ER PO SCH (16:02)
[2021-04-19 16:36] LABS: Glucose,Whole Blood 94 mg/dL (75-99)
[2021-04-19] MEDS: ONDANSETRON 4 MG/2 ML VIAL IVP PRN (16:59)
[2021-04-19 20:21] LABS: Glucose,Whole Blood 103 mg/dL (75-99)
[2021-04-19] MEDS: PRAVASTATIN SODIUM 80 MG TAB PO SCH (20:24)
--- NOTE | 2021-04-19 21:26 | CONS ---
CONSULTATION DATE OF SERVICE: 04/19/2021. REASON FOR CONSULTATION: Enterococcus faecium urinary tract infection. HISTORY OF PRESENT ILLNESS: The patient is a 75-year-old female with a past medical history of multiple urinary tract infections and right ureteral stent for hydronephrosis. Patient was brought into the ER at [facility] 4 days ago for evaluation of mental status changes, the last 2 days, the patient has been more combative and seemed to be not quite herself. Did have episodes of vomiting. With these symptoms, the patient has been brought in the ER. Apparently, the patient has been treated with Rocephin for a UTI at the detention. On arrival at this facility, the patient was low-grade fever 99.4, subsequently did spike a fever of 100.4 degrees Fahrenheit. The patient did have a normal white count 7.8. Repeat white count 13.1, down to 10.2 today. The patient did have a normal creatinine. Urine was positive, cloudy with large leukocyte esterase, 21 WBCs, and those cultures have been finalized yesterday with more than 100,000 colonies of Enterococcus faecium that is vancomycin sensitive. Antibiotic was switched over to vancomycin yesterday. Infectious Disease was consulted for further management of antibiotic therapy. The patient, at this time, is sleepy, but arousable, however, did not answer any questions. Not a very good historian. REVIEW OF SYSTEMS: Positive points have been mentioned in HPI. Complete review could not be done because underlying mental status. PAST MEDICAL HISTORY: CVA, TIA, hypertension, hyperlipidemia, renal insufficiency, recurrent UTI. PAST SURGICAL HISTORY: 1. Hysterectomy. 2. Surgery . PSYCHOLOGICAL HISTORY: Positive for anxiety, depression, bipolar. SOCIAL HISTORY: Remote history of smoking. No drinking or drug use. Current detention resident. FAMILY HISTORY: No pertinent findings noticed. ALLERGIES: AMIODARONE, CYCLOBENZAPRINE, METOCLOPRAMIDE. MEDICATIONS: The patient is currently on Tylenol, Dulcolax, Sinemet, vitamin D2, folic acid, hydralazine, NovoLog, Synthroid, milk of magnesia, Mag oxide, Lopressor, vancomycin, Pharmacy to dose, Protonix, MiraLAX, K-Dur, Pravachol, Senokot. PHYSICAL EXAMINATION: Her blood pressure is 150/79, pulse of 99, temperature 98.3. She is 93% on 2 L nasal cannula. General description is an elderly female lying in in no distress. No tachypnea or accessory muscles of respiration use. HEENT: Examination shows slight pallor. No scleral icterus. Oral mucous membranes dry. NECK: Trachea central. No thyromegaly. LUNGS: Unlabored breathing, clear to auscultation anteriorly with no wheeze or crackles. HEART S1, S2. Regular rate and rhythm. ABDOMEN: Soft, mildly tender. No guarding. No rigidity. EXTREMITIES: No edema of the feet. SKIN: No rash or mass palpable. NEUROLOGICAL: Patient awake, alert, however, nonverbal. Orientation could not be determined. LABS: Hemoglobin 8.4, white count 10.2, BUN of 6, creatinine 0.66. Electrolytes have been normal. Urine with Enterococcus faecium vancomycin sensitive. DIAGNOSTIC IMPRESSION AND PLAN: Patient admitted to hospital with mental status changes which is multifactorial in this patient who did have history of recurrent urinary tract infection with history of hydronephrosis requiring right-sided ureteral stent placement. The patient did have a CT scan done 5 days ago, which did shows marked right hydronephrosis, now with urine showing Enterococcus faecium likely representing a complicated urinary tract infection. PLAN: 1. Vancomycin, pharmacy to dose target of 15. 2. Patient benefit from Urology evaluation for possible exchange of her ureteral stent and relief of that hydronephrosis that will help heal this infection. 3. We will follow on clinical condition and further adjust medication if needed. Thank you for this consultation, will follow this patient along with you. MMODL / IJN: [id number] /
[2021-04-19] MEDS: SODIUM CHLORIDE 0.9% 1,000 ML IV SCH (22:48)
[2021-04-20 02:24] LABS: Glucose,Whole Blood 97 mg/dL (75-99)
[2021-04-20] MEDS: hydrALAZINE HCL 20 MG/ML 1 ML VIAL IVP PRN ×2 (02:53→17:12)
[2021-04-20] MEDS: ONDANSETRON 4 MG/2 ML VIAL IVP PRN ×2 (05:52→17:13)
[2021-04-20 05:55] LABS: Appearance,Urine Turbid (Clear); Bacteria,Urine Many /hpf; Bilirubin,Urine Negative (Negative); Blood,Urine Moderate (Negative); Color,Urine Yellow; Glucose,Urine (UA) Negative (Negative); Ketones,Urine 1+ (Negative); Leukocyte Esterase,Urine Large (Negative); Mucus,Urine Rare /hpf; Nitrite,Urine Negative (Negative); Protein,Urine 1+ (Negative); RBC,Urine 36 /hpf (0-5); Specific Gravity,Urine 1.014 (1.001-1.035); Squamous Epithelial Cell,Urine 3 /hpf (0-4); Urobilinogen,Urine <2.0 mg/dL (<2.0); WBC,Urine >182 /hpf (0-5)
[2021-04-20] MEDS: VANCOMYCIN 1,500 MG in SODIUM CHLORIDE 0.9% 250 ML IVPB SCH (06:01)
[2021-04-20 07:15] LABS: Glucose,Whole Blood 103 mg/dL (75-99)
[2021-04-20] MEDS: INSULIN ASPART (NovoLOG) 100 UNIT/ML VIAL SQ SCH ×4 (07:45→20:59)
[2021-04-20] MEDS: MAGNESIUM OXIDE 400 MG TAB PO SCH ×3 (07:54→17:16)
[2021-04-20] MEDS: PANTOPRAZOLE 40 MG/10 ML VIAL IVP SCH (07:54)
[2021-04-20] MEDS: LEVOTHYROXINE 75 MCG TAB PO SCH (07:55)
[2021-04-20] MEDS: METOPROLOL TARTRATE 50 MG TAB PO SCH ×2 (07:55→17:16)
[2021-04-20] MEDS: CARBIDOPA-LEVODOPA 25-100 MG 1 EACH TAB PO SCH (07:55)
[2021-04-20] MEDS: NYSTATIN 100,000 UNIT/GM POWD 15 GM TOPICAL SCH ×3 (07:55→22:46)
[2021-04-20] MEDS: SENNOSIDES-DOCUSATE SODIUM 1 EACH TAB PO SCH ×2 (07:55→17:16)
[2021-04-20] MEDS: polyethylene glycoL 3350 17 GM POWD.PACK PO SCH (07:56)
[2021-04-20] MEDS: FOLIC ACID 1 MG TAB PO SCH (08:02)
[2021-04-20 08:44] LABS: Carbon Dioxide 24 mmol/L (22-30)
[2021-04-20 08:48] LABS: ALT <6 U/L (4-34); African American GFR (CKD) 83 (>60 ml/min/1.73 sqM); Albumin 2.9 g/dL (3.5-5.0); Albumin/Globulin Ratio 1.2; Anion Gap 11 mmol/L; Blood Urea Nitrogen 11 mg/dL (7-17); Calcium 8.9 mg/dL (8.4-10.2); Chloride 106 mmol/L (98-107); Globulin 2.5 g/dL; Glucose 101 mg/dL (74-99); Non-African American GFR(CKD) 72 (>60 ml/min/1.73 sqM); Sodium 141 mmol/L (137-145); Total Bilirubin 0.7 mg/dL (0.2-1.3); Total Protein 5.4 g/dL (6.3-8.2)
[2021-04-20 08:53] LABS: AST 15 U/L (14-36); Alkaline Phosphatase 69 U/L (38-126); Potassium 4.7 mmol/L (3.5-5.1)
--- NOTE | 2021-04-20 11:01 | P.PN ---
Subjective Progress Note Date: 04/20/21 Upon seeing the patient at bedside, the patient and her she had a PEG tube the yesterday she seems somewhat more responsive today nurse but otherwise not a drastic improvement. She did receive her Sinemet via PEG tube yesterday and getting today as well. Objective - Vital Signs Vital signs: Vital Signs Temp 98.6 F 04/20/21 07:00 Pulse 72 04/20/21 07:56 Resp 20 04/20/21 07:56 BP 163/63 04/20/21 07:00 Pulse Ox 96 04/20/21 07:00 Intake & Output 04/19/21 04/20/21 04/20/21 18:59 06:59 18:59 Intake Total 800 Output Total 500 900 Balance 300 -900 Intake: IV 200 Intake, IV Titration 600 Amount Sodium Chloride 0.9% 1, 600 000 ml @ 130 mls/hr IV . Q7H42M [facility] Rx#:[id number] Output: Urine 500 900 Straight 900 Other: Voiding Method Diaper Diaper Diaper External Catheter External Catheter External Catheter - Exam GENERAL: The patient is lying in bed and is not in acute distress. Abdomen: +ve PEG tube. NEUROLOGICAL: Higher mental function: The patient is awake, alert, oriented to self and time. She stated she is in the hospital but could not tell me which and even with options she would not tell which. She is very slow to respond Patient is following few simple commands (opening mouth and sticking her tongue out and lifting hands). Language is limited on assessment. Cranial nerves: The pupils are round, equal and reactive to light. Extraocular movement is tracking me throughout the room. No facial weakness noted throughout. She has mask-like face. Has moderate dysarthria. Otherwise could not assess rest of cranial nerves because of her condition. Motor: Gait is deferred because of lack of cooperation. The strength is attempting to raise bilateral upper extremities but was only able to raise bilateral wrist above gravity. Has some movement of toes antigravity antigravity. Otherwise no movement noted. Increase tone in upper and lower extremities. Increase tone over the wrist and elbows seems mild to moderate as well as knees. No resting tremor noted. Sensation: Could not assess. - Labs CBC & Chem 7: 04/19/21 08:08 04/20/21 07:22 Labs: Abnormal Lab Results - Last 24 Hours (Table) 04/19/21 04/20/21 04/20/21 Range/Units 20:20 05:30 07:13 Glucose (74-99) mg/dL POC Glucose (mg/dL) 103 H 103 H (75-99) mg/dL Total Protein (6.3-8.2) g/dL Albumin (3.5-5.0) g/dL Urine Appearance Turbid H (Clear) Urine Protein 1+ H (Negative) Urine Ketones 1+ H (Negative) Urine Blood Moderate H (Negative) Ur Leukocyte Esterase Large H (Negative) Urine RBC 36 H (0-5) /hpf Urine WBC >182 H (0-5) /hpf Urine WBC Clumps Many H (None) /hpf Urine Bacteria Many H (None) /hpf Urine Mucus Rare H (None) /hpf 04/20/21 Range/Units 07:22 Glucose 101 H (74-99) mg/dL POC Glucose (mg/dL) (75-99) mg/dL Total Protein 5.4 L (6.3-8.2) g/dL Albumin 2.9 L (3.5-5.0) g/dL Urine Appearance (Clear) Urine Protein (Negative) Urine Ketones (Negative) Urine Blood (Negative) Ur Leukocyte Esterase (Negative) Urine RBC (0-5) /hpf Urine WBC (0-5) /hpf Urine WBC Clumps (None) /hpf Urine Bacteria (None) /hpf Urine Mucus (None) /hpf Microbiology - Last 24 Hours (Table) 04/15/21 18:10 Blood Culture - Preliminary Blood No Growth after 96 hours 04/15/21 17:15 Blood Culture - Preliminary Blood No Growth after 96 hours Assessment and Plan Assessment: * Altered mental status, likely due to toxic metabolic encephalopathy and component of folate deficiency since lack of PO intake. Appears to be severely rigid and stiff with severe parkinsonian symptoms since was not getting eating for 3-4 days. * Folate deficiency (level of 1.6) * History of CVA with aphasia and left hemiparesis * Parkinson's disease, advanced * Dementia * Constipation with fecal impaction * S/P PEG tube (on 04/19/2021) * Bilateral hydronephrosis. Awaiting cystoscopy. Plan: * Patient has presented with toxic metabolic encephalopathy. On top of it, patient has not been able to eat anything, or able to take her medications. She has not received her parkinsonian medications for last 48 hours, and as a result, has developed severe parkinsonism. * Consider feeding tube, if not possible then PEG tube placement. Resume Sinemet as early as possible. * Patient's computed tomography scan of the head shows no acute process. Her limited examination is nonfocal. * EEG was performed on 04/18/2021: which is reported as abnormal due to background slowing of mild to moderate degree. This is suggestive of generalized cerebral dysfunction as can be seen with toxic metabolic encephalopathy or due to diffuse structural brain abnormality or medication effect. No epileptiform activity was seen. * Patient has history of CVA, currently not on any antiplatelet medication. Suggest starting aspirin 81 mg and Lipitor 20 mg, when able to take by mouth. * Patient vitamin B12 is 465 which is normal. Hemoglobin A1c is 5.9 which is considered normal. * TSH 6.27, mildly elevated but free T4 is 0.80 (normal). Would defer to IM to address thyroid dysfunction. * Continue Sinemet 25/101 tablet 3 times a day and 2 tablets at supper (home medication) via PEG tube. * The patient serum folate is 1.6 which is low (normal is >5.38). Continue n folic acid 2mg daily. * The patient needs to follow-up with her neurologist (Dr. Ayers) within 1-2 weeks as outpatient. The plan is discussed with the patient's nurse. Will follow-up with the patient sporadically. Robson Brown MD Neuro-Hospitalist Time with Patient: Less than 30
[2021-04-20 11:43] LABS: Glucose,Whole Blood 107 mg/dL (75-99)
--- NOTE | 2021-04-20 12:19 | P.PN ---
Subjective Progress Note Date: 04/20/21 Principal diagnosis: Altered mental status 75-year-old female patient currently resides in [facility] presented emergency room with mental status changes and has been compatible over the past several days is also not had episode of vomiting. 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 Jeff muñoz is also noted to have a former nicotine dependence. 04/19/2021 Currently patient sitting up in bed at this time, alert, but rarely answering questions. Occasionally she will answer questions by shaking her head yes or no. Patient denied chest pain or pressure, shortness of breath or diffic ulty breathing. She doesn't complain of generalized abdominal pain and has refused all oral medications since admission. Patient was noted be hypertensive IV antihypertensives ordered on a when necessary basis. Most recent set of vitals 98.3 oral temperature, pulse rate of 82, respiratory of 18, patient is 96% on room air with a blood pressure of 183/69 (IV hydralazine ordered for this pressure). Most recent lab work WBC is 10.2, hemoglobin 8.4, hematocrit 25.8, platelet count 248. Chemistry reveals a sodium 140, potassium 3.5, albumin of 6, creatinine 0.66, GFR of 87. Patient receiving hydration IV normal saline at 50 mL an hour. 04/20/2021 patient is postop day 1 for PEG tube placement and Appears more responsive today than yesterday. Patient is now getting her Sinemet and her or al medications through her PEG tube and we may initiate trickle tube feeding after 24 hours. Most recent set of vital signs temperature is 98.6 orally, heart rate is 72, respirations 20, maintaining oxygen saturation 96% on 2 L nasal cannula, blood pressure 163/83. Most recent set of blood work sodium 141, potassium 4.7, GINA 11, creatinine 0.81. Patient did deny chest pain or pressureOr difficulty breathing at this time and she does not appear to be in acute distress. Objective - Vital Signs Vital signs: Vital Signs Temp 98.6 F 04/20/21 07:00 Pulse 72 04/20/21 07:56 Resp 20 04/20/21 07:56 BP 163/63 04/20/21 07:00 Pulse Ox 96 04/20/21 07:00 Intake & Output 04/19/21 04/20/21 04/20/21 18:59 06:59 18:59 Intake Total 800 Output Total 500 900 Balance 300 -900 Intake: IV 200 Intake, IV Titration 600 Amount Sodium Chloride 0.9% 1, 600 000 ml @ 130 mls/hr IV . Q7H42M [facility] Rx#:[id number] Output: Urine 500 900 Straight 900 Other: Voiding Method Diaper Diaper Diaper External Catheter External Catheter External Catheter - Exam GENERAL: Alert and oriented to person, appears comfortable, minimal interaction with questions (Improved from yesterday), well-nourished and in no acute distress. HEAD: Atraumatic, normocephalic. EYES: Pupils equal round and reactive to light, extraocular movements intact, sclera anicteric, conjunctiva are normal. ENT:nares patent, oropharynx clear without exudates. Moist mucous membranes. NECK: Normal range of motion, supple without lymphadenopathy or JVD, no thyromegaly LUNGS: Breath sounds clear to auscultation bilaterally and equal. No wheezes rales or rhonchi. HEART: Regular rate and rhythm without murmurs, rubs or gallops.S1S2 Normal ABDOMEN: Soft, diffuse tenderness to palpation, normoactive bowel sounds. PEG tube in place, No guarding, no rebound. No masses appreciated. EXTREMITIES:no pitting or edema. No clubbing or cyanosis. NEUROLOGICAL: Cranial nerves II through XII grossly intact. baseline aphasia, Able to communicate needs Verbally more today chronic left-sided weakness. PSYCH: Sad mood, flat affect, . SKIN: Warm, Dry, normal turgor, no rashes or lesions noted. - Labs CBC & Chem 7: 04/19/21 08:08 04/20/21 07:22 Labs: Abnormal Lab Results - Last 24 Hours (Table) 04/19/21 04/20/21 04/20/21 Range/Units 20:20 05:30 07:13 Glucose (74-99) mg/dL POC Glucose (mg/dL) 103 H 103 H (75-99) mg/dL Total Protein (6.3-8.2) g/dL Albumin (3.5-5.0) g/dL Urine Appearance Turbid H (Clear) Urine Protein 1+ H (Negative) Urine Ketones 1+ H (Negative) Urine Blood Moderate H (Negative) Ur Leukocyte Esterase Large H (Negative) Urine RBC 36 H (0-5) /hpf Urine WBC >182 H (0-5) /hpf Urine WBC Clumps Many H (None) /hpf Urine Bacteria Many H (None) /hpf Urine Mucus Rare H (None) /hpf 04/20/21 04/20/21 Range/Units 07:22 11:42 Glucose 101 H (74-99) mg/dL POC Glucose (mg/dL) 107 H (75-99) mg/dL Total Protein 5.4 L (6.3-8.2) g/dL Albumin 2.9 L (3.5-5.0) g/dL Urine Appearance (Clear) Urine Protein (Negative) Urine Ketones (Negative) Urine Blood (Negative) Ur Leukocyte Esterase (Negative) Urine RBC (0-5) /hpf Urine WBC (0-5) /hpf Urine WBC Clumps (None) /hpf Urine Bacteria (None) /hpf Urine Mucus (None) /hpf Microbiology - Last 24 Hours (Table) 04/15/21 18:10 Blood Culture - Preliminary Blood No Growth after 96 hours 04/15/21 17:15 Blood Culture - Preliminary Blood No Growth after 96 hours Assessment and Plan (1) Hypertension Current Visit: Yes Status: Acute Code(s): I10 - ESSENTIAL (PRIMARY) HYPERTENSION SNOMED Code(s): 39515929 (2) Encephalopathy Current Visit: Yes Status: Acute Code(s): G93.40 - ENCEPHALOPATHY, UNSPECIFIED SNOMED Code(s): 16083668 (3) Hydronephrosis Current Visit: Yes Status: Acute Code(s): N13.30 - UNSPECIFIED HYDRONE PHROSIS SNOMED Code(s): 10454073 (4) UTI (lower urinary tract infection) Current Visit: Yes Status: Acute Code(s): N39.0 - URINARY TRACT INFECTION, SITE NOT SPECIFIED SNOMED Code(s): 5546797 (5) Abdominal pain Current Visit: No Status: Acute Code(s): R10.9 - UNSPECIFIED ABDOMINAL PAIN SNOMED Code(s): 45620221 (6) Anxiety and depression Current Visit: No Status: Acute Code(s): F41.9 - ANXIETY DISORDER, UNSPECIFIED; F32.9 - MAJOR DEPRESSIVE DISORDER, SINGLE EPISODE, UNSPECIFIED SNOMED Code(s): 232671355 (7) Bipolar 1 disorder Current Visit: No Status: Acute Code(s): F31.9 - BIPOLAR DISORDER, UNSPECI FIED SNOMED Code(s): 781877054 (8) Congestive heart failure Current Visit: No Status: Acute Code(s): I50.9 - HEART FAILURE, UNSPECIFIED SNOMED Code(s): 45417826 (9) Debility Current Visit: No Status: Acute Code(s): R53.81 - OTHER MALAISE SNOMED Code(s): 03146066 (10) Essential (primary) hypertension Current Visit: No Status: Acute Code(s): I10 - ESSENTIAL (PRIMARY) HYPERTENSION SNOMED Code(s): 65262192 (11) History of CVA (cerebrovascular accident) Current Visit: No Status: Acute Code(s): Z86.73 - PRSNL HX OF TIA (TIA), AND CEREB INFRC W/O RESID DEFICITS SNOMED Code(s): 050509773 (12) History of hypothyroidism Current Visit: No Status: Acute Code(s): Z86.39 - PERSONAL HISTORY OF ENDO, NUTRITIONAL AND METABOLIC DISEASE SNOMED Code(s): 632630642 (13) Hydronephrosis Current Visit: No Status: Acute Code(s): N13.30 - UNSPECIFIED HYDRONEPHROSIS SNOMED Code(s): 85525853 (14) Nausea and vomiting Current Visit: No Status: Acute Code(s): R11.2 - NAUSEA WITH VOMITING, UNSPECIFIED SNOMED Code(s): 85191545 (15) Obesity Current Visit: No Status: Acute Code(s): E66.9 - OBESITY, UNSPECIFIED S NOMED Code(s): 143793740 (16) Parkinson disease Current Visit: No Status: Acute Code(s): G20 - PARKINSON'S DISEASE SNOMED Code(s): 61815659 (17) Pure hypercholesterolemia Current Visit: No Status: Acute Code(s): E78.00 - PURE HYPERCHOLESTEROLEMIA, UNSPECIFIED SNOMED Code(s): 307917197 Plan: Continue on current medication regimen at this time Continue with IV hydration IV antibiotics of vancomycin PEG tube placed Yesterday Consult dietary for recommendations of initiation of trickle tube feeds Order labs for tomorrow Continue to monitor vitals and lab results and treat accordingly We'll add hydralazine IV as when necessary for blood pressure control We'll continue to follow closely and reassess tomorrow Time with Patient: Greater than 30
[2021-04-20] MEDS: POTASSIUM CHLORIDE ER 20 MEQ TAB.ER PO SCH (12:43)
[2021-04-20] MEDS: CARBIDOPA-LEVODOPA 25-100 MG 1 EACH TAB PEG/G-TUBE SCH ×3 (12:46→20:59)
[2021-04-20 13:27] LABS: HCT 25.3 % (37.2-46.3); MCH 26.8 pg (27.0-32.0); MCHC 31.6 g/dL (32.0-37.0); MCV 84.9 fL (80.0-97.0); Mean Platelet Volume 11.2 fL (9.5-12.2); Platelet Count 251 X 10*3/uL (140-440); RBC 2.98 X 10*6/uL (4.10-5.20); RDW 18.2 % (11.5-14.5)
[2021-04-20 13:28] LABS: Anisocytosis (M) 2+; Basophils # (M) 0 X 10*3/uL (0.00-0.10); Eosinophils # (M) 0.12 X 10*3/uL (0.04-0.35); Lymphocytes # (M) 0.94 X 10*3/uL (0.90-5.00); Monocytes # (M) 0.24 X 10*3/uL (0.20-1.00); Myelocytes % 2 % (0-0); Neutrophils # (M) 10.27 X 10*3/uL (2.00-8.90); Neutrophils % (M) 87 %
--- NOTE | 2021-04-20 14:20 | P.PN ---
Progress Note - Text Progress Note Date: 04/20/21 Patient's doing well tube is in place she did have some nausea per nursing. If she is nauseated or vomiting tube can be placed to gravity. Continue meds through tube as needed due to the nausea I will hold off on starting tube feeds at this time.
[2021-04-20 17:12] LABS: Glucose,Whole Blood 99 mg/dL (75-99)
[2021-04-20] MEDS: bisacodyL 10 MG SUPP RECTAL PRN (17:13)
--- NOTE | 2021-04-20 19:30 | PN ---
PROGRESS NOTE DATE OF SERVICE: 04/20/2021 REASON FOR FOLLOWUP: Enterococcus faecium complicated urinary tract infection. INTERVAL HISTORY: Patient is currently afebrile. Patient is slightly more awake and alert today. She is breathing comfortably. No chest pain or cough. No abdominal pain or diarrhea. PHYSICAL EXAMINATION: Blood pressure 130/73 with a pulse of 69, temperature 98.6, 95% on 2 L nasal cannula. General description is an elderly female lying in in no distress. Respiratory system: Unlabored breathing, clear to auscultation anteriorly. Heart S1, S2. Regular rate and rhythm. Abdomen soft, no tenderness. LABS: Repeat urine is still positive. White count is 11.80. DIAGNOSTIC IMPRESSION AND PLAN: Patient with Enterococcus faecium urinary tract infection, complicated with worsening of the hydronephrosis. She will benefit from urology evaluation. Continue the vancomycin and monitor clinical course closely. MMODL / IJN: [id number] /
[2021-04-20 19:41] LABS: Glucose,Whole Blood 96 mg/dL (75-99)
[2021-04-20] MEDS: PRAVASTATIN SODIUM 80 MG TAB PO SCH (20:59)
[2021-04-20] MEDS: SODIUM CHLORIDE 0.9% 1,000 ML IV SCH ×3 (20:59→22:47)
[2021-04-21] MEDS ORDERED: VANCOMYCIN TROUGH DUE 1 EACH MISC MISCELLANE ONE (03:30)
[2021-04-21] MEDS ORDERED: VANCOMYCIN 1,500 MG in SODIUM CHLORIDE 0.9% 250 ML IVPB SCH (04:00)
[2021-04-21] MEDS: SODIUM CHLORIDE 0.9% 1,000 ML IV SCH ×3 (07:04→19:37)
[2021-04-21 07:14] LABS: Glucose,Whole Blood 83 mg/dL (75-99)
[2021-04-21] MEDS ORDERED: NA PHOS,M-B/NA PHOS,DI-BA 133 ML ENEMA RECTAL PRN (09:59)
[2021-04-21 12:04] LABS: Glucose,Whole Blood 88 mg/dL (75-99)
[2021-04-21] MEDS: INSULIN ASPART (NovoLOG) 100 UNIT/ML VIAL SQ SCH ×4 (12:19→21:17)
--- NOTE | 2021-04-21 12:56 | PN ---
PROGRESS NOTE DATE OF SERVICE: 04/21/2021 REASON FOR FOLLOWUP: Complicated urinary tract infection. The patient is afebrile. The patient remains to be nonverbal, unable to provide any history. No vomiting, diarrhea or other changes reported by the nursing staff. PHYSICAL EXAMINATION: Blood pressure 153/81 with a pulse of 73, temperature 98.5. She is 97% on 2 L nasal cannula. General description: The patient is an elderly female lying in bed in no distress. Respiratory system: Unlabored breathing, clear to auscultation anteriorly. HEART: S1, S2. Regular rate and rhythm. ABDOMEN: Soft, no tenderness. LABORATORY DATA: Creatinine 0.7. Vancomycin trough high 27.9. DIAGNOSTIC IMPRESSION AND PLAN: Patient with Enterococcus faecium urinary tract infection complicated by significant right sided hydronephrosis. Urology has been consulted. Vanco dose needs to be cut back to keep the trough around 15. Kidney function will be monitored closely. Continue supportive care. MMODL / IJN: [id number] /
--- NOTE | 2021-04-21 13:27 | P.PN ---
Subjective Progress Note Date: 04/21/21 The patient is seen at bedside and per the patient's nurse has nausea, vomiting. Has hydronephrosis. She has not received her Sinement because of vomiting. Otherwise patient is about the same today compared to yesterday. i Her hemoglobin is 8.0 Objective - Vital Signs Vital signs: Vital Signs Temp 98.5 F 04/21/21 07:43 Pulse 68 04/21/21 07:43 Resp 18 04/21/21 07:43 BP 153/81 04/21/21 07:43 Pulse Ox 97 04/21/21 07:43 Intake & Output 04/20/21 04/21/21 04/21/21 18:59 06:59 18:59 Intake Total 600 Output Total 500 Balance 600 -500 Weight 89.358 kg Intake: Intake, IV Titration 600 Amount Folic Acid 1 mg In Sodium 600 Chloride 0.9% 50 ml @ 100.4 mls/hr IV DAILY [facility] Rx#:[id number] Output: Urine 500 Straight 500 Other: Voiding Method Diaper Diaper Diaper External Catheter External Catheter External Catheter - Exam GENERAL: The patient is lying in bed and is not in acute distress. Abdomen: +ve PEG tube. NEUROLOGICAL: Higher mental function: The patient is awake, alert, oriented to self and time. She stated she is in the hospital but could not tell me which and even with options she would not tell which. She is slow to respond Patient is following few simple commands (opening mouth and sticking her tongue out and lifting hands). Language is limited on assessment. Cranial nerves: The pupils are round, equal and reactive to light. Extraocular movement is tracking me throughout the room. No facial weakness noted throughout. She has mask-like face. Has moderate dysarthria. Otherwise could not assess rest of cranial nerves because of her condition. Motor: Gait is deferred because of lack of cooperation. The strength is attempting to raise bilateral upper extremities but was only able to raise bilateral wrist above gravity. Has some movement of toes antigravity antigravity. Otherwise no movement noted. Increase tone in upper and lower extremities. Increase tone over the wrist and elbows seems mild to moderate as well as knees. No resting tremor noted. Sensation: Could not assess. - Labs CBC & Chem 7: 04/20/21 07:22 04/21/21 04:04 Labs: Abnormal Lab Results - Last 24 Hours (Table) 04/20/21 Range/Units 07:22 WBC 11.80 H (4.50-10.00) X 10*3/uL RBC 2.98 L (4.10-5.20) X 10*6/uL Hgb 8.0 L (12.0-15.0) g/dL Hct 25.3 L (37.2-46.3) % MCH 26.8 L (27.0-32.0) pg MCHC 31.6 L (32.0-37.0) g/dL RDW 18.2 H (11.5-14.5) % Absolute Nucleated RBC 0.02 H (0.00-0.00) X 10*3/uL Myelocytes % 2 H (0-0) % Neutrophils # (Manual) 10.27 H (2.00-8.90) X 10*3/uL NRBC/100 WBC Diff 0.2 H (0.0-0.0) /100 WBCS Microbiology - Last 24 Hours (Table) 04/20/21 05:30 Urine Culture - Preliminary Urine,Catheterized Yeast species 04/15/21 18:10 Blood Culture - Preliminary Blood No Growth after 120 hours 04/15/21 17:15 Blood Culture - Preliminary Blood No Growth after 120 hours Assessment and Plan Assessment: * Altered mental status, likely due to toxic metabolic encephalopathy and component of folate deficiency since lack of PO intake. Appears to be severely rigid and stiff with severe parkinsonian symptoms since was not getting eating for 3-4 days. Currently not getting medication via PEG tube since emesis. * Emesis * Folate deficiency (level of 1.6) * History of CVA with aphasia and left hemiparesis * Parkinson's disease, advanced * Dementia * Constipation with fecal impaction * S/P PEG tube (on 04/19/2021) * Bilateral hydronephrosis. Awaiting cystoscopy. Plan: * Patient has presented with toxic metabolic encephalopathy. On top of it, patient has not been able to eat anything, or able to take her medications. She has not received her parkinsonian medications for last 48 hours, and as a result, has developed severe parkinsonism. * Consider feeding tube, if not possible then PEG tube placement. Resume Sinemet as early as possible. * Patient's computed tomography scan of the head shows no acute process. Her limited examination is nonfocal. * EEG was performed on 04/18/2021: which is reported as abnormal due to background slowing of mild to moderate degree. This is suggestive of generalized cerebral dysfunction as can be seen with toxic metabolic ence phalopathy or due to diffuse structural brain abnormality or medication effect. No epileptiform activity was seen. * Patient has history of CVA, currently not on any antiplatelet medication. Suggest starting aspirin 81 mg and Lipitor 20 mg, when able to take by mouth. * Patient vitamin B12 is 465 which is normal. Hemoglobin A1c is 5.9 which is considered normal. * TSH 6.27, mildly elevated but free T4 is 0.80 (normal). Would defer to IM to address thyroid dysfunction. * Please continue Sinemet 25/101 tablet 3 times a day and 2 tablets at supper (home medication) via PEG tube once medically clear (since has nausea and vomiting). * The patient serum folate is 1.6 which is low (normal is >5.38). Continue folic acid 2mg daily. * The patient needs to follow-up with her neurologist (Dr. Ayers) within 1-2 weeks as outpatient. The plan is discussed with the patient's nurse. Will follow-up with the patient sporadically. Robson Brown MD Neuro-Hospitalist Time with Patient: Less than 30
[2021-04-21] MEDS: CARBIDOPA-LEVODOPA 25-100 MG 1 EACH TAB PEG/G-TUBE SCH ×4 (14:49→20:06)
[2021-04-21] MEDS: LEVOTHYROXINE 75 MCG TAB PO SCH (14:50)
[2021-04-21] MEDS: SENNOSIDES-DOCUSATE SODIUM 1 EACH TAB PO SCH ×2 (14:50→16:44)
[2021-04-21] MEDS: FOLIC ACID 1 MG TAB PO SCH (14:50)
[2021-04-21] MEDS: METOPROLOL TARTRATE 50 MG TAB PO SCH ×2 (14:50→16:44)
[2021-04-21] MEDS: MAGNESIUM OXIDE 400 MG TAB PO SCH ×3 (14:50→16:46)
[2021-04-21] MEDS: POTASSIUM CHLORIDE ER 20 MEQ TAB.ER PO SCH (14:51)
[2021-04-21] MEDS: polyethylene glycoL 3350 17 GM POWD.PACK PO SCH (14:51)
--- NOTE | 2021-04-21 16:01 | P.PN ---
Subjective Progress Note Date: 04/21/21 This is a 75-year-old female with past medical history of UTI Strep agalactiae - (group b) with Pyelonephritis, severe right hydronephrosis with right ureteral stent insertion to 12/26/20,CVA with residual left-sided weakness, expressive aphasia/TIA, hyperlipidemia, hypertension, chronic renal failure, hypo thyroidism, obesity, anxiety, bipolar, depression, former nicotine dependence presented to the ER via EMS for [facility] with reports that patient had mental status changes, combative over the last few days with an episode of vomiting. Patient's baseline is chronic residual left-sided weakness from prior CVA with expressive aphasia. Patient currently nonverbal, rigid, posturing, attempting to communicate with blinking of right eye. Febrile, T-max 100.3, WBC 13.1 yesterday down to 7.9. Maintained on vancomycin. Hemoglobin 8, platelets 217, glucose 104, potassium 2.8, magnesium 1.4 both being supplemented. Sodium 140, BUN 9, creatinine 0.73. Lactic acid 0.8. UA reporting urine WBCs 21, large leukocytes 1+ ketones. EKG reported normal sinus rhythm, left ventricular hypertrophy, chest x-ray reporting bibasilar atelectasis/subsegmental consolidation. Baca virus not detected. 04/18/[address] reported chronic appearing periventricular white matter ischemic type changes, stable .evaluated by neurology who attributes clinical presentation to suspected severe Parkinsonian from not having Sinemet for a few days. PEG tube placement pending .maintained on IV fluid hydration. Remains encephalopathic,more alert today, minimally conversing, not following commands. EEG/EMG completed, results pending T-max 99.9, normal WBC. Urine culture reporting enterococcus faecium.preliminary blood cultures reporting no growth at 48 hours Continues on vancomycin, creatinine 0.68. Hemoglobin 8.5, platelets 171. Potassium 3.2, magnesium 2.2. 04/21/2021 maintain IV fluid hydration. Lethargic, nausea and vomiting reported after meds administered via PEG-therefore has not received Sinemet yet today. Urology reconsult regarding cystoscopy for hydronephrosis. Impacted, fleets jermaine mas/disimpaction ordered. PICC line ordered for TPN, as patient has been without nutrition for several days prior to admission and has not been able to be started on PEG tube feedings. Afebrile Objective - Vital Signs Vital signs: Vital Signs Temp 97.7 F 04/21/21 01:36 Pulse 60 04/21/21 01:36 Resp 18 04/21/21 01:36 BP 151/75 04/21/21 01:36 Pulse Ox 98 04/21/21 01:36 Intake & Output 04/20/21 04/21/21 04/21/21 18:59 06:59 18:59 Intake Total 600 Output Total 500 Balance 600 -500 Weight 89.358 kg Intake: Intake, IV Titration 600 Amount Folic Acid 1 mg In Sodium 600 Chloride 0.9% 50 ml @ 100.4 mls/hr IV DAILY [facility] Rx#:[id number] Output: Urine 500 Straight 500 Other: Voiding Method Diaper Diaper External Catheter External Catheter - Exam - Exam General: Lying in bed, nonverbal, lethargic HEENT: PERRL. EOMI. Neck: Supple, no JVD. Cardiac: Heart regular in rate and rhythm. No S3. No S4. No clicks, rubs. No murmur. Lungs: Clear breath sounds, no rhonchi, bilateral bases diminished. Abdomen: Soft, nondistended, mild diffuse tenderness, no guarding, no rigidity .No mass palpable. Positive bowel sounds. Extremities: trace edema no cyanosis no claudication normal pulses. Skin: Warm and dry, nystatin powder on skin folds Neurologic: Unable to evaluate fully, lethargic/nonverbal in a patient with baseline expressive aphasia, chronic residual left-sided weakness. ] - Labs CBC & Chem 7: 04/20/21 07:22 04/21/21 04:04 Labs: Abnormal Lab Results - Last 24 Hours (Table) 04/20/21 04/20/21 Range/Units 07:22 11:42 WBC 11.80 H (4.50-10.00) X 10*3/uL RBC 2.98 L (4.10-5.20) X 10*6/uL Hgb 8.0 L (12.0-15.0) g/dL Hct 25.3 L (37.2-46.3) % MCH 26.8 L (27.0-32.0) pg MCHC 31.6 L (32.0-37.0) g/dL RDW 18.2 H (11.5-14.5) % Absolute Nucleated RBC 0.02 H (0.00-0.00) X 10*3/uL Myelocytes % 2 H (0-0) % Neutrophils # (Manual) 10.27 H (2.00-8.90) X 10*3/uL NRBC/100 WBC Diff 0.2 H (0.0-0.0) /100 WBCS POC Glucose (mg/dL) 107 H (75-99) mg/dL Microbiology - Last 24 Hours (Table) 04/15/21 18:10 Blood Culture - Preliminary Blood No Growth after 120 hours 04/15/21 17:15 Blood Culture - Preliminary Blood No Growth after 120 hours 04/20/21 05:30 Urine Culture - Preliminary Urine,Catheterized Assessment and Plan Assessment: Acute toxic, metabolic encephalopathy,brain CT reported no acute infarcts, chronic stable changes, in a patient with history of CVA, possibly secondary to lack of Sinemet, levels ordered, suspect severe parkinsonism,Neurology following. Acute UTI, enterococcus faecium, in a patient with history of recurrent UTIs, recent acute UTI with Enterobacter aerogenes, complicated with hydronephrosis Bilateral hydronephrosis,no change in the right-sided hydronephrosis. Right ureteral stent insertion 01/06/21, eventually cystoscopy once hemodynamically stable. 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 Hypothyroidism Bipolar disorder Obesity, BMI 36 Normocytic anemia Plan: Continue on current medication regime ,monitoring and symptomatic treatment. Dietary consulted with PICC line ordered for TPN. Urology reconsulted regarding hydronephrosis/cysto.antibiotics as per ID.Close monitoring of renal function and electrolytes , with repeat labs ordered for a.m. orders given for disimpaction, fleets enemas, soapsuds enema .labs pending.Prognosis guarded given multiple complex medical issues. The impression and plan of care has been dictated as directed. : I performed a history and examination of this patient, discussed the same with the dictator. I agree with the dictator's note ,documented as a scribe. Any additional findings or plans will be noted.
[2021-04-21 16:23] LABS: Glucose,Whole Blood 75 mg/dL (75-99)
[2021-04-21] MEDS: NYSTATIN 100,000 UNIT/GM POWD 15 GM TOPICAL SCH ×3 (16:45→20:07)
[2021-04-21] MEDS: PANTOPRAZOLE 40 MG/10 ML VIAL IVP SCH (16:47)
--- NOTE | 2021-04-21 19:03 | P.GSCN ---
History of Present Illness Consult date: 04/21/21 Reason for Consult: Right hydronephrosis Requesting physician: Cameron Nelson History of present illness: The patient is a 75-year-old white female hospitalized in December 2020 with complaints of nausea, vomiting, and abdominal pain for approximately 2 weeks. She denies any prior history of urolithiasis, but has been treated for UTIs in the past. She denies dysuria and hematuria. A CT scan of the abdomen and pelv is revealed severe right-sided hydronephrosis with ill-defined fluid and fat stranding suggesting inflammatory process, markedly dilated collecting system with internal debris or blood products. A CT scan in May 2019 showed bilateral hydronephrosis, greater on the right than the left, but the right hydronephrosis was significantly worse in December than it was at that time. She underwent right ureteral stent insertion on 12/26/2020. Retrograde pyelogram at that time suggested right UPJ obstruction. She has been treated for recurrent UTI's, most recently Enterococcus for which she is receiving Vancomycin. She is currently admitted with mental status changes, nausea, and vomiting. She was scheduled to undergo stent removal and right ureteroscopy last week, but this was canceled due to hypokalemia. She has undergone PEG tube placement. Review of Systems - Constitutional Reports weakness - Gastrointestinal Reports nausea, Reports vomiting - Neurological Reports change in mentation Past Medical History Past Medical History: Heart Failure, CVA/TIA, GERD/Reflux, Hyperlipidemia, Hypertension, Musculoskeletal Disorder, Neurologic Disorder, Renal Disease, Thyroid Disorder Additional Past Medical History / Comment(s): Pt recently admitted to [facility] on 03/10/21 with abdominal pain, N/V, EGD showed gastritis, possible ileus, UTI, acute pyelonephritis. Other hx: CVAs/expressive aphasia and L sided weakness, TIAs, Parkinsons disease, CKD stage III, bilateral hydronephrosis with R side worse, recurrent UTIs, chronic anemia, covid + 01/2021, incontinence urine/stool, hypothyroid. History of Any Multi-Drug Resistant Organisms: None Reported Past Surgical History: Appendectomy, Cholecystectomy, Hernia Repair, Hysterectomy, Orthopedic Surgery Additional Past Surgical History / Comment(s): 12/26/20 cysto with R ureteral stent, hysterectomy with bilateral oophorectomy, abdominal hernia repair, EGD, colonoscopy, hammer toe surgery Past Anesthesia/Blood Transfusion Reactions: No Reported Reaction Smoking Status: Former smoker - Past Family History Father History Unknown: Yes Family Medical History: No Reported History Mother Family Medical History: Hypertension Additional Family Medical History / Comment(s): Mother lived to be about 85 yrs old. Medications and Allergies Home Medications Medication Instructions Recorded Confirmed Type Escitalopram Oxalate [Lexapro] 10 mg PO DAILY@0800 09/07/14 04/15/21 History Omeprazole [PriLOSEC] 20 mg PO BID@0800,1700 09/07/14 04/15/21 History Pravastatin Sodium [Pravachol] 80 mg PO HS 09/07/14 04/15/21 History Ergocalciferol (Vitamin D2) 1,250 mcg PO Q14D@1200 05/19/19 04/15/21 History [Drisdol (50,000 Iu)] Levothyroxine Sodium [Synthroid] 150 mcg PO DAILY@0800 05/19/19 04/15/21 History Pramipexole [Mirapex] 1 mg PO HS 05/19/19 04/15/21 History calcitrioL [Rocaltrol] 0.25 mcg PO SUMOTUWETHFR@1200 05/19/19 04/15/21 History Carbidopa-Levodopa 25-100 mg 1 tab PO TID@0800,1200,209912/24/20 04/15/21 History [Sinemet 25-100 mg] Carbidopa-Levodopa 25-100 mg 2 tab PO AC-SUPPER@1700 12/24/20 04/15/21 History [Sinemet 25-100 mg] Metoprolol Tartrate [Lopressor] 50 mg PO BID@0800,1700 12/24/20 04/15/21 History Potassium Chloride ER [K-Dur 20] 20 meq PO DAILY@1200 12/24/20 04/15/21 History polyethylene glycoL 3350 [Miralax] 17 gm PO DAILY PRN #0 powd.pack 01/01/21 04/15/21 Rx Sennosides-Docusate Sodium 1 tab PO BID@0800,1700 01/24/21 04/15/21 History [Senokot-S] Ascorbic Acid [Vitamin C] 1,000 mg PO DAILY@1200 03/10/21 04/15/21 History Magnesium Oxide [Mag-Ox] 400 mg PO TID@0800,1200,1700 03/10/21 04/15/21 History Melatonin 5 mg PO HS tablet 03/18/21 04/15/21 Rx Acetaminophen Tab [Tylenol] 650 mg PO Q6HR PRN 04/15/21 04/15/21 History Diclofenac Sodium [Voltaren Gel] 1 applic TOPICAL QID@,,,04/15/21 04/15/21 History Dicyclomine [Bentyl] 10 mg PO QID@08,,,04/15/21 04/15/21 History Ensure Clear 120 ml PO BID@0800,1700 04/15/21 04/15/21 History Lactose-Reduced Food [Ensure Plus] 120 ml PO DAILY@1200 04/15/21 04/15/21 History Magnesium Hydroxide [Milk of 7,200 mg PO Q48H PRN 04/15/21 04/15/21 History Magnesia Concentrate] Na Phos,M-B/Na Phos,Di-Ba [Fleet 133 ml RECTAL DAILY PRN 04/15/21 04/15/21 History Adult] Nystatin 100,000 Unit/gm Powd 1 applic TOPICAL TID 04/15/21 04/15/21 History [Mycostatin Powder] Ondansetron HCl [Zofran] 4 mg PO DAILY@0600 04/15/21 04/15/21 History Ondansetron Odt [Zofran Odt] 4 mg PO Q8H PRN 04/15/21 04/15/21 History Promethazine Hcl 25mg/Ml 25 mg IM Q6H PRN 04/15/21 04/15/21 History Salonpas Lidocaine Patch 1 patch TRANSDERM DAILY PRN 04/15/21 04/15/21 History bisacodyL [Bisacodyl] 10 mg RECTAL DAILY PRN 04/15/21 04/15/21 History dronabinoL [Marinol] 2.5 mg PO TID@0800,1200,1700 04/15/21 04/15/21 History Allergies Allergy/AdvReac Type Severity Reaction Status Date / Time amiodarone [From Cordarone] Allergy Anaphylaxis Verified 04/15/21 17:19 cyclobenzaprine Allergy Rash/Hives Verified 04/15/21 17:19 [From Flexeril] prochlorperazine Allergy Rash/Hives Verified 04/15/21 17:19 metoclopramide AdvReac Severe Unknown Verified 04/15/21 17:19 Surgical - Exam Vital Signs Temp Pulse Resp BP Pulse Ox 99.9 F H 72 18 172/82 92 L 04/15/21 16:32 04/15/21 16:32 04/15/21 16:32 04/15/21 16:32 04/15/21 16:32 - General well developed, well nourished, no distress - Respiratory normal respiratory effort - Abdomen Abdomen: soft, non tender, no guarding, no rigid, no rebound - Psychiatric oriented to time, oriented to person, oriented to place, speech is normal, mem ory intact Results - Labs 04/20/21 07:22 04/21/21 04:04 Microbiology - Last 24 Hours (Table) 04/20/21 05:30 Urine Culture - Preliminary Urine,Catheterized Yeast species 04/15/21 18:10 Blood Culture - Preliminary Blood No Growth after 120 hours 04/15/21 17:15 Blood Culture - Preliminary Blood No Growth after 120 hours Diabetes panel 04/21/21 Range/Units 04:04 Creatinine 0.78 (0.52-1.04) mg/dL Pituitary panel 04/21/21 Range/Units 04:04 Creatinine 0.78 (0.52-1.04) mg/dL Adrenal panel 04/21/21 Range/Units 04:04 Creatinine 0.78 (0.52-1.04) mg/dL - Imaging CT scan - abdomen: report reviewed Assessment and Plan (1) Acquired hydronephrosis due to obstruction of ureteropelvic junction (UPJ) Current Visit: No Status: Acute Code(s): N13.0 - HYDRONEPHROSIS WITH URETEROPELVIC JUNCTION OBSTRUCTION SNOMED Code(s): 972007408 Plan: The patient currently has an indwelling Bueno catheter in place. The urine is quite cloudy in appearance. She is scheduled to undergo surgery on 04/24/2021. If the urine fails to change in appearance, I will likely simply change the right ureteral stent. The appearance of the urine improves, I will perform cystoscopy, right ureteral stent removal, right ureteroscopy, and possible replacement of the stent. Potential risks include anesthesia, infection, and ureteral injury.
[2021-04-21] MEDS: VANCOMYCIN 1,500 MG in SODIUM CHLORIDE 0.9% 250 ML IVPB SCH (20:06)
[2021-04-21] MEDS: PRAVASTATIN SODIUM 80 MG TAB PO SCH (20:06)
[2021-04-21 21:17] LABS: Glucose,Whole Blood 84 mg/dL (75-99)
[2021-04-22] MEDS: SODIUM CHLORIDE 0.9% 1,000 ML IV SCH ×3 (03:11→19:24)
[2021-04-22 07:35] LABS: Glucose,Whole Blood 79 mg/dL (75-99)
[2021-04-22 08:34] LABS: African American GFR (CKD) 87 (>60 ml/min/1.73 sqM); Anion Gap 8 mmol/L; Blood Urea Nitrogen 10 mg/dL (7-17); Calcium 8.4 mg/dL (8.4-10.2); Carbon Dioxide 26 mmol/L (22-30); Chloride 107 mmol/L (98-107); Glucose 79 mg/dL (74-99); Magnesium 1.8 mg/dL (1.6-2.3); Non-African American GFR(CKD) 76 (>60 ml/min/1.73 sqM); Sodium 141 mmol/L (137-145)
[2021-04-22 08:50] LABS: Phosphorus 3.3 mg/dL (2.5-4.5)
[2021-04-22] MEDS ORDERED: Potassium Replacement Protocol 1 EACH MISC MISCELLANE PRN (08:55)
[2021-04-22] MEDS: INSULIN ASPART (NovoLOG) 100 UNIT/ML VIAL SQ SCH ×4 (09:01→19:23)
[2021-04-22] MEDS: FOLIC ACID 1 MG TAB PO SCH (09:07)
[2021-04-22] MEDS: POTASSIUM CHLORIDE 10 MEQ in WATER FOR INJECTION 1 100ML.BAG IVPB SCH ×6 (09:07→16:26)
[2021-04-22] MEDS: LEVOTHYROXINE 75 MCG TAB PO SCH (09:08)
[2021-04-22] MEDS: METOPROLOL TARTRATE 50 MG TAB PO SCH ×2 (09:08→16:32)
[2021-04-22] MEDS: SENNOSIDES-DOCUSATE SODIUM 1 EACH TAB PO SCH ×2 (09:08→16:32)
[2021-04-22] MEDS: PANTOPRAZOLE 40 MG/10 ML VIAL IVP SCH (09:08)
[2021-04-22] MEDS: CARBIDOPA-LEVODOPA 25-100 MG 1 EACH TAB PEG/G-TUBE SCH ×4 (09:08→21:12)
[2021-04-22] MEDS: polyethylene glycoL 3350 17 GM POWD.PACK PO SCH (09:08)
[2021-04-22] MEDS: MAGNESIUM OXIDE 400 MG TAB PO SCH ×3 (09:08→16:32)
[2021-04-22] MEDS: NYSTATIN 100,000 UNIT/GM POWD 15 GM TOPICAL SCH ×3 (09:09→21:12)
[2021-04-22 09:12] LABS: Albumin 2.5 g/dL (3.5-5.0)
[2021-04-22 09:13] LABS: Potassium 2.8 mmol/L (3.5-5.1)
[2021-04-22 11:25] LABS: Glucose,Whole Blood 81 mg/dL (75-99)
[2021-04-22] MEDS ORDERED: NA PHOS,M-B/NA PHOS,DI-BA 133 ML ENEMA RECTAL STA (11:41)
[2021-04-22] MEDS: POTASSIUM CHLORIDE ER 20 MEQ TAB.ER PO SCH (12:26)
[2021-04-22 12:54] LABS: Basophils # (A) 0.03 X 10*3/uL (0.00-0.10); Basophils % (A) 0.3 %; Eosinophils # (A) 0.13 X 10*3/uL (0.04-0.35); Eosinophils % (A) 1.4 %; HCT 24.4 % (37.2-46.3); HGB 7.4 g/dL (12.0-15.0); Lymphocytes # (A) 0.82 X 10*3/uL (0.90-5.00); Lymphocytes % (A) 8.9 %; MCH 26.9 pg (27.0-32.0); MCHC 30.3 g/dL (32.0-37.0); MCV 88.7 fL (80.0-97.0); Monocytes # (A) 0.39 X 10*3/uL (0.20-1.00); Monocytes % (A) 4.2 %; Neutrophils # (A) 7.74 X 10*3/uL (1.80-7.70); Neutrophils % (A) 83.8 %; Platelet Count 165 X 10*3/uL (140-440); RBC 2.75 X 10*6/uL (4.10-5.20); RDW 18.5 % (11.5-14.5); WBC 9.24 X 10*3/uL (4.50-10.00)
--- NOTE | 2021-04-22 13:22 | P.PN ---
Subjective Progress Note Date: 04/22/21 This is a 75-year-old female with past medical history of UTI Strep agalactiae - (group b) with Pyelonephritis, severe right hydronephrosis with right ureteral stent insertion to 12/26/20,CVA with residual left-sided weakness, expressive aphasia/TIA, hyperlipidemia, hypertension, chronic renal failure, hypo thyroidism, obesity, anxiety, bipolar, depression, former nicotine dependence presented to the ER via EMS for [facility] with reports that patient had mental status changes, combative over the last few days with an episode of vomiting. Patient's baseline is chronic residual left-sided weakness from prior CVA with expressive aphasia. Patient currently nonverbal, rigid, posturing, attempting to communicate with blinking of right eye. Febrile, T-max 100.3, WBC 13.1 yesterday down to 7.9. Maintained on vancomycin. Hemoglobin 8, platelets 217, glucose 104, potassium 2.8, magnesium 1.4 both being supplemented. Sodium 140, BUN 9, creatinine 0.73. Lactic acid 0.8. UA reporting urine WBCs 21, large leukocytes 1+ ketones. EKG reported normal sinus rhythm, left ventricular hypertrophy, chest x-ray reporting bibasilar atelectasis/subsegmental consolidation. Baca virus not detected. 04/18/[address] reported chronic appearing periventricular white matter ischemic type changes, stable .evaluated by neurology who attributes clinical presentation to suspected severe Parkinsonian from not having Sinemet for a few days. PEG tube placement pending .maintained on IV fluid hydration. Remains encephalopathic,more alert today, minimally conversing, not following commands. EEG/EMG completed, results pending T-max 99.9, normal WBC. Urine culture reporting enterococcus faecium.preliminary blood cultures reporting no growth at 48 hours Continues on vancomycin, creatinine 0.68. Hemoglobin 8.5, platelets 171. Potassium 3.2, magnesium 2.2. 04/21/2021 maintain IV fluid hydration. Lethargic, nausea and vomiting reported after meds administered via PEG-therefore has not received Sinemet yet today. Urology reconsult regarding cystoscopy for hydronephrosis. Impacted, fleets jermaine mas/disimpaction ordered. PICC line ordered for TPN, as patient has been without nutrition for several days prior to admission and has not been able to be started on PEG tube feedings. Afebrile. 04/22/2021 more alert, received Sinemet yesterday and this morning, no nausea vomiting. We'll reattempt tube feeds via PEG tube -if unable to tolerate then we'll proceed with PICC line and TPN. Received one fleets enema with small stool and reported. Potassium 2.8, receiving supplementation, magnesium 1.8. Urine remains cloudy. Evaluated by urology and scheduled for surgery/potential cystoscopy/right ureteral stent removal/8 ureteroscopy/possible replacement of stent on 04/24/2021. Objective - Vital Signs Vital signs: Vital Signs Temp 97.7 F 04/22/21 09:08 Pulse 59 L 04/22/21 09:08 Resp 20 04/22/21 09:08 BP 150/64 04/22/21 09:08 Pulse Ox 95 04/22/21 09:08 Intake & Output 04/21/21 04/22/21 04/22/21 18:59 06:59 18:59 Output Total 400 Balance -400 Weight 89.358 kg 88 kg Output: Urine 400 Straight 400 Other: Voiding Method Diaper Indwelling Catheter Indwelling Catheter External Catheter - Exam - Exam General: Lying in bed, no acute distress HEENT: PERRL. EOMI. Neck: Supple, no JVD. Cardiac: Heart regular in rate and rhythm. No S3. No S4. No clicks, rubs. No murmur. Lungs: Clear breath sounds, no rhonchi, bilateral bases diminished. Abdomen: Soft, nondistended, mild diffuse tenderness, no guarding, no rigidity .No mass palpable. Positive bowel sounds. Extremities: trace edema no cyanosis no claudication normal pulses. Skin: Warm and dry, Neurologic: Unable to evaluate fully, lethargic/minimally verbal in a patient with baseline expressive aphasia, chronic residual left-sided weakness. ] - Labs CBC & Chem 7: 04/22/21 08:00 04/22/21 08:00 Labs: Abnormal Lab Results - Last 24 Hours (Table) 04/22/21 Range/Units 08:00 Potassium 2.8 L (3.5-5.1) mmol/L Albumin 2.5 L (3.5-5.0) g/dL Microbiology - Last 24 Hours (Table) 04/20/21 05:30 Urine Culture - Final Urine,Catheterized Fani albicans 04/15/21 18:10 Blood Culture - Final Blood No Growth after 144 hours 04/15/21 17:15 Blood Culture - Final Blood No Growth after 144 hours Assessment and Plan Assessment: Acute toxic, metabolic encephalopathy,brain CT reported no acute infarcts, chronic stable changes, in a patient with history of CVA, possibly secondary to lack of Sinemet, levels ordered, suspect severe parkinsonism,Neurology fol lowing. Acute UTI, enterococcus faecium, in a patient with history of recurrent UTIs, recent acute UTI with Enterobacter aerogenes, complicated with hydronephrosis Bilateral hydronephrosis,no change in the right-sided hydronephrosis. Right ureteral stent insertion 01/06/21, obstruction of UPJ-cystoscopy pending Constipation with fecal impaction Status post PEG tube placement on 04/19/2021 Hypokalemia Hypomagnesemia Chronic renal failure stage II Chronic congestive heart failure, diastolic dysfunction Hypertension Hyperlipidemia chronic renal failure secondary to nephrosclerosis, baseline 1.2-1.5 Parkinson's disease, advanced History of CVA with residual left-sided weakness and expressive aphasia, TIA; currently not on any antiplatelets, PCP verify at office. Hypothyroidism Bipolar disorder Obesity, BMI 36 Normocytic anemia Plan: Continue on current medication regime ,monitoring and symptomatic treatment. Potassium replacement as per replacement protocol with repeat potassium level this afternoon. Urology surgery/cystoscopy scheduled for 04/24/2021. Reattempt tube feeds as per dietary recommendations -if nausea/vomiting reoccurs , then proceed with plan for PICC line/ TPN. A ntibiotics as per ID.Close monitoring of renal function and electrolytes , with repeat labs ordered for a.m. orders given for disimpaction, fleets enemas, soapsuds enema .labs pending.Prognosis guarded given multiple complex medical issues. The impression and plan of care has been dictated as directed. : I performed a history and examination of this patient, discussed the same with the dictator. I agree with the dictator's note ,documented as a scribe. Any additional findings or plans will be noted.
[2021-04-22 16:26] LABS: Glucose,Whole Blood 89 mg/dL (75-99)
[2021-04-22 19:21] LABS: Glucose,Whole Blood 96 mg/dL (75-99)
[2021-04-22] MEDS: VANCOMYCIN 1,500 MG in SODIUM CHLORIDE 0.9% 250 ML IVPB SCH (21:12)
[2021-04-22] MEDS: PRAVASTATIN SODIUM 80 MG TAB PO SCH (21:12)
--- NOTE | 2021-04-22 22:36 | PN ---
PROGRESS NOTE DATE OF SERVICE: 04/22/2021 REASON FOR FOLLOWUP: Complicated urinary tract infection. INTERVAL HISTORY: Patient is currently afebrile. Patient is breathing comfortably. He remains to be normal. Did not provide any history. No vomiting, diarrhea or any other changes reported by the nursing staff. PHYSICAL EXAMINATION: Blood pressure 155/65, pulse of 85, temperature 98. She is 97% on 2 L nasal cannula. General description is an elderly female lying in in no distress. Respiratory system: Unlabored breathing, clear to auscultation anteriorly. Heart S1, S2. Regular rate and rhythm. ABDOMEN: Soft, no tenderness. LABS: Hemoglobin 7.8, white count 9.24, BUN of 10, creatinine 0.77. DIAGNOSTIC IMPRESSION AND PLAN: Patient with complicated urinary tract infection with urine showing Enterococcus faecium. Patient is showing Fani albicans. The patient did have hydronephrosis. Urology has seen the patient. Plan for cystoscopy and ureteral stent exchange. Continue with vancomycin and monitor clinical course closely. MMODL / IJN: [id number] /
[2021-04-23] MEDS: SODIUM CHLORIDE 0.9% 1,000 ML IV SCH ×3 (03:17→16:27)
[2021-04-23 07:05] LABS: Glucose,Whole Blood 129 mg/dL (75-99)
[2021-04-23] MEDS: MAGNESIUM OXIDE 400 MG TAB PO SCH ×3 (07:53→16:25)
[2021-04-23] MEDS: CARBIDOPA-LEVODOPA 25-100 MG 1 EACH TAB PEG/G-TUBE SCH ×4 (07:53→21:05)
[2021-04-23] MEDS: FOLIC ACID 1 MG TAB PO SCH (07:53)
[2021-04-23] MEDS: METOPROLOL TARTRATE 50 MG TAB PO SCH ×2 (07:53→16:26)
[2021-04-23] MEDS: SENNOSIDES-DOCUSATE SODIUM 1 EACH TAB PO SCH ×2 (07:53→16:26)
[2021-04-23] MEDS: INSULIN ASPART (NovoLOG) 100 UNIT/ML VIAL SQ SCH ×4 (07:54→21:05)
[2021-04-23] MEDS: LEVOTHYROXINE 75 MCG TAB PO SCH (07:54)
[2021-04-23] MEDS: polyethylene glycoL 3350 17 GM POWD.PACK PO SCH (07:54)
[2021-04-23] MEDS: PANTOPRAZOLE 40 MG/10 ML VIAL IVP SCH (07:54)
[2021-04-23] MEDS: NYSTATIN 100,000 UNIT/GM POWD 15 GM TOPICAL SCH ×3 (07:55→21:05)
--- NOTE | 2021-04-23 08:57 | P.PN ---
Progress Note - Text Progress Note Date: 04/23/21 The Bueno catheter remains in place. The urine is clearing. She continues to receive vancomycin. She will undergo cystoscopy with right ureteral stent change tomorrow. I anticipate performing ureteroscopy at that time, as the CT scan in December showed evidence of debris or blood within the right renal pelvis.
[2021-04-23 11:26] LABS: Glucose,Whole Blood 125 mg/dL (75-99)
[2021-04-23] MEDS: POTASSIUM CHLORIDE ER 20 MEQ TAB.ER PO SCH (12:26)
--- NOTE | 2021-04-23 15:02 | P.PN ---
Subjective Progress Note Date: 04/23/21 This is a 75-year-old female with past medical history of UTI Strep agalactiae - (group b) with Pyelonephritis, severe right hydronephrosis with right ureteral stent insertion to 12/26/20,CVA with residual left-sided weakness, expressive aphasia/TIA, hyperlipidemia, hypertension, chronic renal failure, hypo thyroidism, obesity, anxiety, bipolar, depression, former nicotine dependence presented to the ER via EMS for [facility] with reports that patient had mental status changes, combative over the last few days with an episode of vomiting. Patient's baseline is chronic residual left-sided weakness from prior CVA with expressive aphasia. Patient currently nonverbal, rigid, posturing, attempting to communicate with blinking of right eye. Febrile, T-max 100.3, WBC 13.1 yesterday down to 7.9. Maintained on vancomycin. Hemoglobin 8, platelets 217, glucose 104, potassium 2.8, magnesium 1.4 both being supplemented. Sodium 140, BUN 9, creatinine 0.73. Lactic acid 0.8. UA reporting urine WBCs 21, large leukocytes 1+ ketones. EKG reported normal sinus rhythm, left ventricular hypertrophy, chest x-ray reporting bibasilar atelectasis/subsegmental consolidation. Baca virus not detected. 04/18/[address] reported chronic appearing periventricular white matter ischemic type changes, stable .evaluated by neurology who attributes clinical presentation to suspected severe Parkinsonian from not having Sinemet for a few days. PEG tube placement pending .maintained on IV fluid hydration. Remains encephalopathic,more alert today, minimally conversing, not following commands. EEG/EMG completed, results pending T-max 99.9, normal WBC. Urine culture reporting enterococcus faecium.preliminary blood cultures reporting no growth at 48 hours Continues on vancomycin, creatinine 0.68. Hemoglobin 8.5, platelets 171. Potassium 3.2, magnesium 2.2. 04/21/2021 maintain IV fluid hydration. Lethargic, nausea and vomiting reported after meds administered via PEG-therefore has not received Sinemet yet today. Urology reconsult regarding cystoscopy for hydronephrosis. Impacted, fleets jermaine mas/disimpaction ordered. PICC line ordered for TPN, as patient has been without nutrition for several days prior to admission and has not been able to be started on PEG tube feedings. Afebrile. 04/22/2021 more alert, received Sinemet yesterday and this morning, no nausea vomiting. We'll reattempt tube feeds via PEG tube -if unable to tolerate then we'll proceed with PICC line and TPN. Received one fleets enema with small stool and reported. Potassium 2.8, receiving supplementation, magnesium 1.8. Urine remains cloudy. Evaluated by urology and scheduled for surgery/potential cystoscopy/right ureteral stent removal/8 ureteroscopy/possible replacement of stent on 04/24/2021. 04/23/2021 large bowel movement last night. Reports diffuse abdominal pain. Tolerating tube feeds at 40 MLS per hour/Goal of 55 with minimal to no residuals, no nausea or vomiting. Continues on vancomycin. Scheduled for cystoscopy tomorrow with right ureteral stent exchange. Afebrile. Objective - Vital Signs Vital signs: Vital Signs Temp 98.0 F 04/23/21 13:56 Pulse 66 04/23/21 13:56 Resp 18 04/23/21 13:56 BP 157/61 04/23/21 13:56 Pulse Ox 100 04/23/21 13:56 Intake & Output 04/22/21 04/23/21 04/23/21 18:59 06:59 18:59 Intake Total 112 Output Total 250 253 3 Balance -138 -253 -3 Weight 93.5 kg Intake: Tube Feeding 112 Output: Urine 250 250 Stool 3 3 Other: Voiding Method Indwelling Catheter Indwelling Catheter Indwelling Catheter # Voids 4 # Bowel Movements 1 1 - Exam - Exam General: Sitting up in bed, no acute distress HEENT: PERRL. EOMI. Neck: Supple, no JVD. Cardiac: Heart regular in rate and rhythm. No S3. No S4. No clicks, rubs. No murmur. Lungs: Clear breath sounds, no rhonchi, bilateral bases diminished. Abdomen: Soft, nondistended, mild diffuse tenderness, no guarding, no rigidity .No mass palpable. Positive bowel sounds. Extremities: trace edema no cyanosis no claudication normal pulses. Skin: Warm and dry, Neurologic: Limited exam, minimally verbal in a patient with baseline expressive aphasia, chronic residual left-sided weakness. ] Microbiology 04/20/21 05:30 Urine,Catheterized Urine Culture - Final Fani albicans 04/15/21 18:10 Blood Blood Culture - Final No Growth after 144 hours 04/15/21 17:15 Blood Blood Culture - Final No Growth after 144 hours 04/15/21 17:15 Urine,Clean Catch Urine Culture - Final Enterococcus faecium - Labs CBC & Chem 7: 04/22/21 08:00 04/22/21 18:56 Labs: Abnormal Lab Results - Last 24 Hours (Table) 04/23/21 04/23/21 Range/Units 07:02 11:25 POC Glucose (mg/dL) 129 H 125 H (75-99) mg/dL Assessment and Plan Assessment: Acute toxic, metabolic encephalopathy,brain CT reported no acute infarcts, chronic stable changes, in a patient with history of CVA, possibly secondary to lack of Sinemet, levels ordered, suspect severe parkinsonism,Neurology following. Acute UTI, enterococcus faecium, in a patient with history of recurrent UTIs, recent acute UTI with Enterobacter aerogenes, complicated with hydronephrosis Bilateral hydronephrosis,no change in the right-sided hydronephrosis. Right ureteral stent insertion 01/06/21, obstruction of UPJ-cystoscopy pending Constipation with fecal impaction Status post PEG tube placement on 04/19/2021 Hypokalemia Hypomagnesemia Chronic renal failure stage II Chronic congestive heart failure, diastolic dysfunction Hypertension Hyperlipidemia chronic renal failure secondary to nephrosclerosis, baseline 1.2-1.5 Parkinson's disease, advanced History of CVA with residual left-sided weakness and expressive aphasia, TIA; currently not on any antiplatelets, PCP verify at office. Hypothyroidism Bipolar disorder Obesity, BMI 36 Normocytic anemia Plan: Continue on current medication regime ,monitoring and symptomatic treatment. Labs pending. Antibiotics as per ID. cystoscopy tomorrow with stent exchange.Prognosis guarded given multiple complex medical issues. The impression and plan of care has been dictated as directed. : I performed a history and examination of this patient, discussed the same with the dictator. I agree with the dictator's note ,documented as a scribe. Any additional findings or plans will be noted.
[2021-04-23 16:54] LABS: African American GFR (CKD) >90 (>60 ml/min/1.73 sqM); Anion Gap 6 mmol/L; Blood Urea Nitrogen 12 mg/dL (7-17); Calcium 8.6 mg/dL (8.4-10.2); Carbon Dioxide 27 mmol/L (22-30); Chloride 107 mmol/L (98-107); Glucose 122 mg/dL (74-99); Non-African American GFR(CKD) 80 (>60 ml/min/1.73 sqM); Potassium 3.5 mmol/L (3.5-5.1); Sodium 140 mmol/L (137-145)
[2021-04-23 16:59] LABS: Glucose,Whole Blood 140 mg/dL (75-99)
--- NOTE | 2021-04-23 18:36 | PN ---
PROGRESS NOTE DATE OF SERVICE: 04/23/2021 REASON FOR FOLLOWUP: Complicated urinary tract infection. INTERVAL HISTORY: Patient is afebrile. Patient is breathing comfortably. The patient remains nonverbal. No vomiting or diarrhea or any change reported by nursing staff. PHYSICAL EXAMINATION: VITAL SIGNS: Blood pressure 157/61, pulse of 66, temperature 98, she is 100% on 2 L nasal cannula. GENERAL DESCRIPTION: An elderly female lying in bed in no distress. RESPIRATORY SYSTEM: Unlabored breathing, clear to auscultation anteriorly. HEART: S1, S2. Regular rate and rhythm. ABDOMEN: Soft, no tenderness. LABS: No new labs have been obtained today. DIAGNOSTIC IMPRESSION AND PLAN: Patient with a complicated urinary tract infection. Urine culture positive for Enterococcus faecium. Vancomycin to continue. She is scheduled for a cystoscopy and right ureteral stent exchange tomorrow. Monitor clinical course closely. MMODL / IJN: [id number] /
[2021-04-23 18:52] LABS: Anisocytosis Slight; HCT 23.1 % (34.0-46.0); HGB 7.3 gm/dL (11.4-16.0); Hypochromasia Moderate; MCH 27.1 pg (25.0-35.0); MCHC 31.7 g/dL (31.0-37.0); MCV 85.5 fL (80.0-100.0); Mean Platelet Volume 9.8; Platelet Count 224 k/uL (150-450); Poikilocytosis Slight; RBC 2.71 m/uL (3.80-5.40); RDW 18.5 % (11.5-15.5); WBC 7.1 k/uL (3.8-10.6)
[2021-04-23 21:04] LABS: Glucose,Whole Blood 163 mg/dL (75-99)
[2021-04-23] MEDS: PRAVASTATIN SODIUM 80 MG TAB PO SCH (21:05)
[2021-04-23] MEDS: VANCOMYCIN 1,500 MG in SODIUM CHLORIDE 0.9% 250 ML IVPB SCH (21:06)
[2021-04-24] MEDS: SODIUM CHLORIDE 0.9% 1,000 ML IV SCH ×3 (02:00→16:38)
[2021-04-24] MEDS ORDERED: LACTATED RINGERS 1,000 ML IV ONE (06:44)
[2021-04-24] MEDS: ONDANSETRON 4 MG/2 ML VIAL IVP PRN (06:52)
[2021-04-24] MEDS ORDERED: PROPOFOL 10 MG/ML 20 ML VIAL IV ONE (07:05)
[2021-04-24] MEDS ORDERED: SODIUM CHLORIDE 0.9% 100 ML with ceFAZolin 2,000 MG IV ONE ×2 (07:05)
[2021-04-24] MEDS ORDERED: fentaNYL (PF) 50 MCG/ML 2 ML AMP ONE (07:05)
[2021-04-24] MEDS ORDERED: NEOSTIGMINE 1 MG/ML 10 ML VIAL ONE (07:05)
[2021-04-24] MEDS ORDERED: ROCURONIUM 10 MG/ML (5 ML VIAL) IV ONE (07:05)
[2021-04-24] MEDS ORDERED: GLYCOPYRROLATE 0.2 MG/ML 2 ML VIAL ONE (07:05)
[2021-04-24] MEDS ORDERED: IOPAMIDOL-370 50ML BTL MISCELLANE ONE (08:25)
--- NOTE | 2021-04-24 09:56 | FL ---
EXAMINATION TYPE: FL urography retrograde DATE OF EXAM: 04/24/2021 COMPARISON: NONE HISTORY: Respiratory TECHNIQUE: Fluoroscopy. FINDINGS: Fluoroscopic guidance was provided during procedure 29 seconds. IMPRESSION: As Above.
[2021-04-24] MEDS: INSULIN ASPART (NovoLOG) 100 UNIT/ML VIAL SQ SCH ×4 (10:28→21:32)
[2021-04-24] MEDS: SENNOSIDES-DOCUSATE SODIUM 1 EACH TAB PO SCH ×2 (10:39→16:37)
[2021-04-24] MEDS: CARBIDOPA-LEVODOPA 25-100 MG 1 EACH TAB PEG/G-TUBE SCH ×4 (10:39→21:32)
[2021-04-24] MEDS: LEVOTHYROXINE 75 MCG TAB PO SCH (10:39)
[2021-04-24] MEDS: METOPROLOL TARTRATE 50 MG TAB PO SCH ×2 (10:40→16:37)
[2021-04-24] MEDS: POTASSIUM CHLORIDE ER 20 MEQ TAB.ER PO SCH (10:40)
[2021-04-24] MEDS: FOLIC ACID 1 MG TAB PO SCH (10:40)
[2021-04-24] MEDS: polyethylene glycoL 3350 17 GM POWD.PACK PO SCH (10:40)
[2021-04-24] MEDS: PANTOPRAZOLE 40 MG/10 ML VIAL IVP SCH (10:40)
[2021-04-24] MEDS: MAGNESIUM OXIDE 400 MG TAB PO SCH ×3 (10:40→16:37)
[2021-04-24] MEDS: NYSTATIN 100,000 UNIT/GM POWD 15 GM TOPICAL SCH ×3 (10:41→21:31)
[2021-04-24 11:06] LABS: Glucose,Whole Blood 113 mg/dL (75-99)
--- NOTE | 2021-04-24 12:07 | P.PN ---
Subjective Progress Note Date: 04/24/21 This is a 75-year-old female with past medical history of UTI Strep agalactiae - (group b) with Pyelonephritis, severe right hydronephrosis with right ureteral stent insertion to 12/26/20,CVA with residual left-sided weakness, expressive aphasia/TIA, hyperlipidemia, hypertension, chronic renal failure, hypo thyroidism, obesity, anxiety, bipolar, depression, former nicotine dependence presented to the ER via EMS for [facility] with reports that patient had mental status changes, combative over the last few days with an episode of vomiting. Patient's baseline is chronic residual left-sided weakness from prior CVA with expressive aphasia. Patient currently nonverbal, rigid, posturing, attempting to communicate with blinking of right eye. Febrile, T-max 100.3, WBC 13.1 yesterday down to 7.9. Maintained on vancomycin. Hemoglobin 8, platelets 217, glucose 104, potassium 2.8, magnesium 1.4 both being supplemented. Sodium 140, BUN 9, creatinine 0.73. Lactic acid 0.8. UA reporting urine WBCs 21, large leukocytes 1+ ketones. EKG reported normal sinus rhythm, left ventricular hypertrophy, chest x-ray reporting bibasilar atelectasis/subsegmental consolidation. Baca virus not detected. 04/18/[address] reported chronic appearing periventricular white matter ischemic type changes, stable .evaluated by neurology who attributes clinical presentation to suspected severe Parkinsonian from not having Sinemet for a few days. PEG tube placement pending .maintained on IV fluid hydration. Remains encephalopathic,more alert today, minimally conversing, not following commands. EEG/EMG completed, results pending T-max 99.9, normal WBC. Urine culture reporting enterococcus faecium.preliminary blood cultures reporting no growth at 48 hours Continues on vancomycin, creatinine 0.68. Hemoglobin 8.5, platelets 171. Potassium 3.2, magnesium 2.2. 04/21/2021 maintain IV fluid hydration. Lethargic, nausea and vomiting reported after meds administered via PEG-therefore has not received Sinemet yet today. Urology reconsult regarding cystoscopy for hydronephrosis. Impacted, fleets jremaine mas/disimpaction ordered. PICC line ordered for TPN, as patient has been without nutrition for several days prior to admission and has not been able to be started on PEG tube feedings. Afebrile. 04/22/2021 more alert, received Sinemet yesterday and this morning, no nausea vomiting. We'll reattempt tube feeds via PEG tube -if unable to tolerate then we'll proceed with PICC line and TPN. Received one fleets enema with small stool and reported. Potassium 2.8, receiving supplementation, magnesium 1.8. Urine remains cloudy. Evaluated by urology and scheduled for surgery/potential cystoscopy/right ureteral stent removal/8 ureteroscopy/possible replacement of stent on 04/24/2021. 04/23/2021 large bowel movement last night. Reports diffuse abdominal pain. Tolerating tube feeds at 40 MLS per hour/Goal of 55 with minimal to no residuals, no nausea or vomiting. Continues on vancomycin. Scheduled for cystoscopy tomorrow with right ureteral stent exchange. Afebrile. 04/24/2021 Recently returned from cystoscopy, verbal report of stent exchange- multiple attempts. Currently sedated, opens eyes and falls back asleep. Objective - Vital Signs Vital signs: Vital Signs Temp 96.9 F L 04/24/21 09:01 Pulse 63 04/24/21 09:45 Resp 16 04/24/21 09:45 BP 168/75 04/24/21 09:45 Pulse Ox 97 04/24/21 09:45 Intake & Output 04/23/21 04/24/21 04/24/21 18:59 06:59 18:59 Intake Total 150 650 Output Total 403 400 0 Balance -403 -250 650 Weight 92 kg Intake: IV 150 650 Output: Urine 400 400 Stool 3 Estimated Blood Loss 0 Other: Voiding Method Indwelling Catheter Indwelling Catheter # Bowel Movements 1 2 - Exam - Exam General: Lying in bed, sedated, HEENT: PERRL. EOMI. Neck: Supple, no JVD. Cardiac: Heart regular in rate and rhythm. No S3. No S4. No clicks, rubs. No murmur. Lungs: Clear breath sounds, no rhonchi, bilateral bases diminished. Abdomen: Soft, nondistended, mild diffuse tenderness, no guarding, no rigidity .No mass palpable. Positive bowel sounds. Extremities: trace edema no cyanosis no claudication normal pulses. Skin: Warm and dry, Neurologic: Unable to assess, patient sedated,( baseline expressive aphasia, chronic residual left-sided weakness. ) ] Microbiology 04/20/21 05:30 Urine,Catheterized Urine Culture - Final Fani albicans 04/15/21 18:10 Blood Blood Culture - Final No Growth after 144 hours 04/15/21 17:15 Blood Blood Culture - Final No Growth after 144 hours 04/15/21 17:15 Urine,Clean Catch Urine Culture - Final Enterococcus faecium - Labs CBC & Chem 7: 04/23/21 17:43 04/23/21 15:26 Labs: Abnormal Lab Results - Last 24 Hours (Table) 04/23/21 04/23/21 04/23/21 Range/Units 11:25 15:26 16:56 RBC (3.80-5.40) m/uL Hgb (11.4-16.0) gm/dL Hct (34.0-46.0) % RDW (11.5-15.5) % Glucose 122 H (74-99) mg/dL POC Glucose (mg/dL) 125 H 140 H (75-99) mg/dL 04/23/21 04/23/21 04/24/21 Range/Units 17:43 21:02 11:05 RBC 2.71 L (3.80-5.40) m/uL Hgb 7.3 L (11.4-16.0) gm/dL Hct 23.1 L (34.0-46.0) % RDW 18.5 H (11.5-15.5) % Glucose (74-99) mg/dL POC Glucose (mg/dL) 163 H 113 H (75-99) mg/dL Assessment and Plan Assessment: Acute toxic, metabolic encephalopathy,brain CT reported no acute infarcts, chronic stable changes, in a patient with history of CVA, possibly secondary to lack of Sinemet, levels ordered, suspect severe parkinsonism,Neurology following. Acute UTI, enterococcus faecium, in a patient with history of recurrent UTIs, recent acute UTI with Enterobacter aerogenes, complicated with hydronephrosis Bilateral hydronephrosis,no change in the right-sided hydronephrosis. Right ureteral stent insertion 01/06/21, obstruction of UPJ-status post cystoscopy with right stent exchange per verbal report. 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 Hypothyroidism Bipolar disorder Obesity, BMI 36 Normocytic anemia Plan: Continue on current medication regime ,monitoring and symptomatic treatment. LABS PENDING. Antibiotics as per ID. Prognosis guarded given multiple complex medical issues. The impression and plan of care has been dictated as directed. : I performed a history and examination of this patient, discussed the same with the dictator. I agree with the dictator's note ,documented as a scribe. Any additional findings or plans will be noted.
[2021-04-24 12:47] LABS: African American GFR (CKD) >90 (>60 ml/min/1.73 sqM); Anion Gap 8 mmol/L; Blood Urea Nitrogen 10 mg/dL (7-17); Calcium 8.2 mg/dL (8.4-10.2); Carbon Dioxide 23 mmol/L (22-30); Chloride 109 mmol/L (98-107); Glucose 101 mg/dL (74-99); Non-African American GFR(CKD) 89 (>60 ml/min/1.73 sqM); Sodium 140 mmol/L (137-145)
[2021-04-24 12:52] LABS: Potassium 3.5 mmol/L (3.5-5.1)
[2021-04-24 13:09] LABS: Anisocytosis Slight; Basophils % (A) 0 %; Eosinophils # (A) 0.2 k/uL (0-0.7); Eosinophils % (A) 3 %; HCT 24.5 % (34.0-46.0); HGB 7.8 gm/dL (11.4-16.0); Hypochromasia Slight; Lymphocytes # (A) 0.6 k/uL (1.0-4.8); Lymphocytes % (A) 9 %; MCH 26.5 pg (25.0-35.0); MCHC 31.8 g/dL (31.0-37.0); MCV 83.2 fL (80.0-100.0); Mean Platelet Volume 11.3; Microcytosis Slight; Monocytes # (A) 0.3 k/uL (0-1.0); Monocytes % (A) 4 %; Neutrophils # (A) 6.1 k/uL (1.3-7.7); Neutrophils % (A) 83 %; Platelet Count 166 k/uL (150-450); Poikilocytosis Slight; RBC 2.94 m/uL (3.80-5.40); RDW 18.7 % (11.5-15.5); WBC 7.4 k/uL (3.8-10.6)
[2021-04-24 16:36] LABS: Glucose,Whole Blood 124 mg/dL (75-99)
[2021-04-24] MEDS ORDERED: VANCOMYCIN TROUGH DUE 1 EACH MISC MISCELLANE ONE (20:00)
[2021-04-24 20:53] LABS: Glucose,Whole Blood 149 mg/dL (75-99)
[2021-04-24] MEDS: VANCOMYCIN 1,500 MG in SODIUM CHLORIDE 0.9% 250 ML IVPB SCH (21:29)
[2021-04-24] MEDS: PRAVASTATIN SODIUM 80 MG TAB PO SCH (21:32)
--- NOTE | 2021-04-24 23:26 | PN ---
PROGRESS NOTE DATE OF SERVICE: 04/24/2021. REASON FOR FOLLOWUP: Complicated urinary tract infection. INTERVAL HISTORY: Patient is currently afebrile. The patient is status post ureteral stent placement today. The patient post procedure was slightly lethargic, unable to provide any history. No vomiting, diarrhea or any other changes reported by the nursing staff. On examination, blood pressure 151/76, pulse of 55, temperature 97.8. She is 97% on 1 L nasal cannula. General description is an elderly female lying in bed in no distress. Respiratory system: Unlabored breathing, clear to auscultation anteriorly. Heart S1, S2. Regular rate and rhythm. ABDOMEN: Soft, no tenderness. EXTREMITIES: No edema of the feet. LABS: Hemoglobin is 7, white count 7.4, BUN of 10, creatinine 0.62. Vancomycin trough is slightly high. DIAGNOSTIC IMPRESSION AND PLAN: Patient with enterococcus faecium, complicated urinary tract infection in this patient who is status post change of the ureteral stent. Vanco dose needs to be cut back to keep the trough around 15. Kidney function monitor closely and will repeat UA and culture after change of the stent and continue supportive care. MMODL / IJN: [id number] /
[2021-04-25] MEDS: SODIUM CHLORIDE 0.9% 1,000 ML IV SCH ×4 (06:36→20:35)
--- NOTE | 2021-04-25 06:42 | P.OP ---
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 She denies any prior history of urolithiasis, but has been treated for UTIs in the past. She denies dysuria and hematuria. A CT scan of the abdomen and pelvis revealed severe right-sided hydronephrosis with ill-defined fluid and fat stranding suggesting inflammatory process, markedly dilated collecting system with internal debris or blood products. A CT scan in May 2019 showed bilateral hydronephrosis, greater on the right than the left, but the right hydronephrosis was significantly worse in December than it was at that time. She underwent right ureteral stent insertion on 12/26/2020. Retrograde pyelogram at that time suggested right UPJ obstruction. She has been treated for recurrent UTI's, most recently Enterococcus for which she is receiving Vancomycin. Operative Findings: Right proximal ureteral occlusion Description of Procedure: The patient was taken to the operating room and placed in the dorsolithotomy position, with legs supported in Panda stirrups. The external genitalia was prepped and draped sterilely. The 30 lens was used to introduce the 22-[place] Stortz cystoscopic sheath through the urethra and into the bladder under direct vision. The bladder showed evidence of catheter cystitis. The left ureteral orifice appeared normal. Grasping forceps were used to grasp the distal end of the right ureteral stent, which was removed along with the cystoscope. A 0.035 inch Glidewire was passed through the stent and up to the proximal ureter, where resistance was met. The mini flexible ureteroscope was passed over the wire, into the distal ureter. The ureteroscope was then advanced under direct vision. Within the proximal ureter there appeared to be a false passage. Multiple attempts were made to identify the true lumen, but it could not be identified. Contrast was injected. No contrast passed into the renal pelvis. There was no extravasation of contrast. With the ureteroscope in place, multiple attempts were made to advance a Glidewire but none were successful. Ultimately, the procedure was terminated to avoid the risk of ureteral perforation. After removing the ureteroscope, a 16-[place] Bueno catheter was placed. The return was clear. The patient tolerated the procedure well was taken to the recovery room in stable condition.
[2021-04-25 06:58] LABS: Glucose,Whole Blood 149 mg/dL (75-99)
[2021-04-25 07:17] LABS: Appearance,Urine Cloudy (Clear); Bacteria,Urine Occasional /hpf; Bilirubin,Urine Negative (Negative); Blood,Urine Large (Negative); Budding Yeast,Urine Rare /hpf; Calcium Oxalate Crystals,Urine Rare /hpf; Color,Urine Yellow; Glucose,Urine (UA) Negative (Negative); Ketones,Urine Trace (Negative); Leukocyte Esterase,Urine Large (Negative); Mucus,Urine Occasional /hpf; Nitrite,Urine Negative (Negative); Protein,Urine 1+ (Negative); RBC,Urine 82 /hpf (0-5); Specific Gravity,Urine 1.017 (1.001-1.035); Urobilinogen,Urine <2.0 mg/dL (<2.0); WBC,Urine >182 /hpf (0-5)
[2021-04-25] MEDS: SENNOSIDES-DOCUSATE SODIUM 1 EACH TAB PO SCH ×2 (07:56→15:49)
[2021-04-25] MEDS: MAGNESIUM OXIDE 400 MG TAB PO SCH ×3 (07:56→15:50)
[2021-04-25] MEDS: INSULIN ASPART (NovoLOG) 100 UNIT/ML VIAL SQ SCH ×4 (07:56→20:34)
[2021-04-25] MEDS: LEVOTHYROXINE 75 MCG TAB PO SCH (07:56)
[2021-04-25] MEDS: FOLIC ACID 1 MG TAB PO SCH (07:56)
[2021-04-25] MEDS: CARBIDOPA-LEVODOPA 25-100 MG 1 EACH TAB PEG/G-TUBE SCH ×4 (07:56→20:35)
[2021-04-25] MEDS: METOPROLOL TARTRATE 50 MG TAB PO SCH ×2 (07:56→15:49)
[2021-04-25] MEDS: PANTOPRAZOLE 40 MG/10 ML VIAL IVP SCH (07:57)
[2021-04-25] MEDS: polyethylene glycoL 3350 17 GM POWD.PACK PO SCH (07:57)
[2021-04-25] MEDS: NYSTATIN 100,000 UNIT/GM POWD 15 GM TOPICAL SCH ×3 (07:57→20:35)
--- NOTE | 2021-04-25 08:13 | P.PN ---
Progress Note - Text Progress Note Date: 04/25/21 Mrs. Carmona remains afebrile. She is difficult to arouse this morning. I asked her if she is experiencing any pain, and she responded "yes". However, she could not verbalize any details regarding this. Her ureteral stent was removed yesterday and I was unable to successfully replace it. If she experiences problems related to her right hydronephrosis, she will require nephrostomy tube insertion.
[2021-04-25 11:31] LABS: Glucose,Whole Blood 155 mg/dL (75-99)
--- NOTE | 2021-04-25 13:14 | P.PN ---
Subjective Progress Note Date: 04/25/21 This is a 75-year-old female with past medical history of UTI Strep agalactiae - (group b) with Pyelonephritis, severe right hydronephrosis with right ureteral stent insertion to 12/26/20,CVA with residual left-sided weakness, expressive aphasia/TIA, hyperlipidemia, hypertension, chronic renal failure, hypo thyroidism, obesity, anxiety, bipolar, depression, former nicotine dependence presented to the ER via EMS for [facility] with reports that patient had mental status changes, combative over the last few days with an episode of vomiting. Patient's baseline is chronic residual left-sided weakness from prior CVA with expressive aphasia. Patient currently nonverbal, rigid, posturing, attempting to communicate with blinking of right eye. Febrile, T-max 100.3, WBC 13.1 yesterday down to 7.9. Maintained on vancomycin. Hemoglobin 8, platelets 217, glucose 104, potassium 2.8, magnesium 1.4 both being supplemented. Sodium 140, BUN 9, creatinine 0.73. Lactic acid 0.8. UA reporting urine WBCs 21, large leukocytes 1+ ketones. EKG reported normal sinus rhythm, left ventricular hypertrophy, chest x-ray reporting bibasilar atelectasis/subsegmental consolidation. Baca virus not detected. 04/18/[address] reported chronic appearing periventricular white matter ischemic type changes, stable .evaluated by neurology who attributes clinical presentation to suspected severe Parkinsonian from not having Sinemet for a few days. PEG tube placement pending .maintained on IV fluid hydration. Remains encephalopathic,more alert today, minimally conversing, not following commands. EEG/EMG completed, results pending T-max 99.9, normal WBC. Urine culture reporting enterococcus faecium.preliminary blood cultures reporting no growth at 48 hours Continues on vancomycin, creatinine 0.68. Hemoglobin 8.5, platelets 171. Potassium 3.2, magnesium 2.2. 04/21/2021 maintain IV fluid hydration. Lethargic, nausea and vomiting reported after meds administered via PEG-therefore has not received Sinemet yet today. Urology reconsult regarding cystoscopy for hydronephrosis. Impacted, fleets jermaine mas/disimpaction ordered. PICC line ordered for TPN, as patient has been without nutrition for several days prior to admission and has not been able to be started on PEG tube feedings. Afebrile. 04/22/2021 more alert, received Sinemet yesterday and this morning, no nausea vomiting. We'll reattempt tube feeds via PEG tube -if unable to tolerate then we'll proceed with PICC line and TPN. Received one fleets enema with small stool and reported. Potassium 2.8, receiving supplementation, magnesium 1.8. Urine remains cloudy. Evaluated by urology and scheduled for surgery/potential cystoscopy/right ureteral stent removal/8 ureteroscopy/possible replacement of stent on 04/24/2021. 04/23/2021 large bowel movement last night. Reports diffuse abdominal pain. Tolerating tube feeds at 40 MLS per hour/Goal of 55 with minimal to no residuals, no nausea or vomiting. Continues on vancomycin. Scheduled for cystoscopy tomorrow with right ureteral stent exchange. Afebrile. 04/24/2021 Recently returned from cystoscopy, verbal report of stent exchange- multiple attempts. Currently sedated, opens eyes and falls back asleep. 04/25/2021 postop day #1 from cystoscopy. Procedure note reports right ureteral stent removed, multiple attempts made to identify the triple-lumen unable to identify, contrast injected but did not pass into the renal pelvis, multiple attempts made to advance Glidewire-unsuccessful, and procedure was terminated. Bueno catheter with yellow urine with sediment. Patient sleepy but continues to complain of pain, attempting to use communication board. Afebrile, BMP pending. Objective - Vital Signs Vital signs: Vital Signs Temp 98.0 F 04/25/21 07:44 Pulse 67 04/25/21 08:00 Resp 20 04/25/21 08:00 BP 126/75 04/25/21 07:44 Pulse Ox 93 L 04/25/21 09:08 Intake & Output 04/24/21 04/25/21 04/25/21 18:59 06:59 18:59 Intake Total 650 Output Total 800 3 Balance -150 -3 Weight 92 kg Intake: IV 650 Output: Urine 800 Stool 3 Estimated Blood Loss 0 Other: Voiding Method Indwelling Catheter Indwelling Catheter Indwelling Catheter - Exam - Exam General: Lying in bed, sleepy but arousable HEENT: PERRL. EOMI. Neck: Supple, no JVD. Cardiac: Heart regular in rate and rhythm. No S3. No S4. No clicks, rubs. No murmur. Lungs: Clear breath sounds, no rhonchi, bilateral bases diminished. Abdomen: Soft, nondistended, mild diffuse tenderness, no guarding, no rigidity .No mass palpable. Positive bowel sounds. Extremities: Positive edema, normal pulses. Skin: Warm and dry, Neurologic: Unable to assess, patient sleepy ( baseline expressive aphasia, chronic residual left-sided weakness. ) ] Microbiology 04/20/21 05:30 Urine,Catheterized Urine Culture - Final Fani albicans 04/15/21 18:10 Blood Blood Culture - Final No Growth after 144 hours 04/15/21 17:15 Blood Blood Culture - Final No Growth after 144 hours 04/15/21 17:15 Urine,Clean Catch Urine Culture - Final Enterococcus faecium - Labs CBC & Chem 7: 04/24/21 12:56 04/24/21 11:40 Labs: Abnormal Lab Results - Last 24 Hours (Table) 04/24/21 04/24/21 04/24/21 Range/Units 12:56 16:33 20:52 RBC 2.94 L (3.80-5.40) m/uL Hgb 7.8 L (11.4-16.0) gm/dL Hct 24.5 L (34.0-46.0) % RDW 18.7 H (11.5-15.5) % Lymphocytes # 0.6 L (1.0-4.8) k/uL POC Glucose (mg/dL) 124 H 149 H (75-99) mg/dL Urine Appearance (Clear) Urine Protein (Negative) Urine Ketones (Negative) Urine Blood (Negative) Ur Leukocyte Esterase (Negative) Urine RBC (0-5) /hpf Urine WBC (0-5) /hpf Urine WBC Clumps (None) /hpf Calcium Oxalate Crystal (None) /hpf Urine Bacteria (None) /hpf Urine Mucus (None) /hpf Urine Yeast (Budding) (None) /hpf 04/25/21 04/25/21 04/25/21 Range/Units 05:50 06:56 11:30 RBC (3.80-5.40) m/uL Hgb (11.4-16.0) gm/dL Hct (34.0-46.0) % RDW (11.5-15.5) % Lymphocytes # (1.0-4.8) k/uL POC Glucose (mg/dL) 149 H 155 H (75-99) mg/dL Urine Appearance Cloudy H (Clear) Urine Protein 1+ H (Negative) Urine Ketones Trace H (Negative) Urine Blood Large H (Negative) Ur Leukocyte Esterase Large H (Negative) Urine RBC 82 H (0-5) /hpf Urine WBC >182 H (0-5) /hpf Urine WBC Clumps Many H (None) /hpf Calcium Oxalate Crystal Rare H (None) /hpf Urine Bacteria Occasional H (None) /hpf Urine Mucus Occasional H (None) /hpf Urine Yeast (Budding) Rare H (None) /hpf Assessment and Plan Assessment: Acute toxic, metabolic encephalopathy,brain CT reported no acute infarcts, chronic stable changes, in a patient with history of CVA, possibly secondary to lack of Sinemet, levels ordered, suspect severe parkinsonism,Neurology following. Acute UTI, enterococcus faecium, in a patient with history of recurrent UTIs, recent acute UTI with Enterobacter aerogenes, complicated with hydronephrosis Bilateral hydronephrosis,no change in the right-sided hydronephrosis. Right ureteral stent insertion 01/06/21, obstruction of UPJ-status post cystoscopy with right stent removed, unable to replace. 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 Hypothyroidism Bipolar disorder Obesity, BMI 36 Normocytic anemia Plan: Continue on current medication regime ,monitoring and symptomatic treatment. LABS PENDING. Urology discussing potential nephrostomy tube.Antibiotics as per ID. PT/OT. Prognosis guarded given multiple complex medical issues. The impression and plan of care has been dictated as directed. : I performed a history and examination of this patient, discussed the same with the dictator. I agree with the dictator's note ,documented as a scribe. Any ad ditional findings or plans will be noted.
[2021-04-25] MEDS: POTASSIUM CHLORIDE ER 20 MEQ TAB.ER PO SCH (13:29)
--- NOTE | 2021-04-25 13:31 | P.PN ---
Subjective Progress Note Date: 04/25/21 The patient is seen at bedside and is about the same today compared last seen her. Objective - Vital Signs Vital signs: Vital Signs Temp 98.0 F 04/25/21 07:44 Pulse 67 04/25/21 08:00 Resp 20 04/25/21 08:00 BP 126/75 04/25/21 07:44 Pulse Ox 93 L 04/25/21 09:08 Intake & Output 04/24/21 04/25/21 04/25/21 18:59 06:59 18:59 Intake Total 650 Output Total 800 3 Balance -150 -3 Weight 92 kg Intake: IV 650 Output: Urine 800 Stool 3 Estimated Blood Loss 0 Other: Voiding Method Indwelling Catheter Indwelling Catheter Indwelling Catheter - Exam GENERAL: The patient is lying in bed and is not in acute distress. Abdomen: +ve PEG tube. NEUROLOGICAL: Higher mental function: The patient is drowsy but awakeable to voice. She is oriented to self. She stated she is in the hospital but could not tell me which and even with options she would not tell which. She is slow to respond Patient is following few simple commands (opening mouth and sticking her tongue out and lifting hands). Language is limited on assessment. Cranial nerves: The pupils are round, equal and reactive to light. Extraocular movement is tracking me throughout the room. No facial weakness noted throughout. She has mask-like face. Has moderate dysarthria. Otherwise could not assess rest of cranial nerves because of her condition. Motor: Gait is deferred because of lack of cooperation. The strength is attempting to raise bilateral upper extremities but was only able to raise bilateral wrist above gravity. Has some movement of toes antigravity antigravity. Otherwise no movement noted. Increase tone in upper and lower extremities. Increase tone over the wrist and elbows seems mild to moderate as well as knees. No resting tremor noted. Sensation: Could not assess. - Labs CBC & Chem 7: 04/24/21 12:56 04/24/21 11:40 Labs: Abnormal Lab Results - Last 24 Hours (Table) 04/24/21 04/24/21 04/25/21 Range/Units 16:33 20:52 05:50 POC Glucose (mg/dL) 124 H 149 H (75-99) mg/dL Urine Appearance Cloudy H (Clear) Urine Protein 1+ H (Negative) Urine Ketones Trace H (Negative) Urine Blood Large H (Negative) Ur Leukocyte Esterase Large H (Negative) Urine RBC 82 H (0-5) /hpf Urine WBC >182 H (0-5) /hpf Urine WBC Clumps Many H (None) /hpf Calcium Oxalate Crystal Rare H (None) /hpf Urine Bacteria Occasional H (None) /hpf Urine Mucus Occasional H (None) /hpf Urine Yeast (Budding) Rare H (None) /hpf 04/25/21 04/25/21 Range/Units 06:56 11:30 POC Glucose (mg/dL) 149 H 155 H (75-99) mg/dL Urine Appearance (Clear) Urine Protein (Negative) Urine Ketones (Negative) Urine Blood (Negative) Ur Leukocyte Esterase (Negative) Urine RBC (0-5) /hpf Urine WBC (0-5) /hpf Urine WBC Clumps (None) /hpf Calcium Oxalate Crystal (None) /hpf Urine Bacteria (None) /hpf Urine Mucus (None) /hpf Urine Yeast (Budding) (None) /hpf Assessment and Plan Assessment: * Altered mental status, likely due to toxic metabolic encephalopathy and component of folate deficiency since lack of PO intake. --mentation has been stable. * Emesis * Folate deficiency (level of 1.6) * History of CVA with aphasia and left hemiparesis * Parkinson's disease, advanced * Dementia * Constipation with fecal impaction * S/P PEG tube (on 04/19/2021) * Bilateral hydronephrosis. Awaiting cystoscopy. Plan: * Patient has presented with toxic metabolic encephalopathy. On top of it, patient has not been able to eat anything, or able to take her medications. She has not received her parkinsonian medications for last 48 hours, and as a result, has developed severe parkinsonism. * Consider feeding tube, if not possible then PEG tube placement. Resume Sinemet as early as possible. * Patient's computed tomography scan of the head shows no acute process. Her limited examination is nonfocal. * EEG was performed on 04/18/2021: which is reported as abnormal due to background slowing of mild to moderate degree. This is suggestive of generalized cerebral dysfunction as can be seen with toxic metabolic ence phalopathy or due to diffuse structural brain abnormality or medication effect. No epileptiform activity was seen. * Patient has history of CVA, currently not on any antiplatelet medication. Suggest starting aspirin 81 mg and Lipitor 20 mg, when able to take by mouth. * Patient vitamin B12 is 465 which is normal. Hemoglobin A1c is 5.9 which is considered normal. * TSH 6.27, mildly elevated but free T4 is 0.80 (normal). Would defer to IM to address thyroid dysfunction. * Please continue Sinemet 25/100 1 tablet 3 times a day and 2 tablets at supper (home medication) via PEG tube. * The patient serum folate is 1.6 which is low (normal is >5.38). Continue folic acid 2mg daily. * The patient needs to follow-up with her neurologist (Dr. Ayers) within 1-2 weeks as outpatient. The plan is discussed with the patient's nurse. Neurology will sign off. Please reconsult if needed. Robson Brown MD Neuro-Hospitalist Time with Patient: Less than 30
[2021-04-25] MEDS ORDERED: FLUCONAZOLE 100 MG TAB PO ONE (16:09)
[2021-04-25 16:50] LABS: Glucose,Whole Blood 151 mg/dL (75-99)
[2021-04-25 17:00] LABS: African American GFR (CKD) >90 (>60 ml/min/1.73 sqM); Anion Gap 1 mmol/L; Blood Urea Nitrogen 10 mg/dL (7-17); Calcium 8.1 mg/dL (8.4-10.2); Carbon Dioxide 28 mmol/L (22-30); Chloride 108 mmol/L (98-107); Glucose 132 mg/dL (74-99); Non-African American GFR(CKD) 85 (>60 ml/min/1.73 sqM); Sodium 137 mmol/L (137-145)
[2021-04-25 17:13] LABS: Potassium 4.2 mmol/L (3.5-5.1)
--- NOTE | 2021-04-25 19:47 | PN ---
PROGRESS NOTE DATE OF SERVICE: 04/25/2021 REASON FOR FOLLOWUP: Complicated UTI. INTERVAL HISTORY: Patient is currently afebrile. The patient is breathing comfortably. The patient is hemodynamically stable. No vomiting, diarrhea reported by the nursing staff. PHYSICAL EXAMINATION: Blood pressure 150/71, pulse 50, temperature 98. She is 98% on 1 L nasal cannula. General description is an elderly female lying in in no distress. Respiratory system: Unlabored breathing, clear to auscultation anteriorly. Heart S1, S2. Regular rate and rhythm. Abdomen soft, no tenderness. LABS: Repeat urine is still significantly positive and showing budding yeast. DIAGNOSTIC IMPRESSION AND PLAN: Patient with a complicated urinary tract infection. Urine was initially positive for Enterococcus faecium. Vancomycin is still what the patient currently on. The patient is status post exchange of her ureteral stent. The patient is covered with vancomycin. Will add Diflucan to cover for the Fani and monitor clinical course closely. MMODL / IJN: [id number] /
[2021-04-25 20:35] LABS: Glucose,Whole Blood 144 mg/dL (75-99)
[2021-04-25] MEDS: PRAVASTATIN SODIUM 80 MG TAB PO SCH (20:35)
[2021-04-26 07:16] LABS: Glucose,Whole Blood 156 mg/dL (75-99)
[2021-04-26 08:08] LABS: African American GFR (CKD) 86 (>60 ml/min/1.73 sqM); Anion Gap 1 mmol/L; Blood Urea Nitrogen 10 mg/dL (7-17); Calcium 7.7 mg/dL (8.4-10.2); Carbon Dioxide 29 mmol/L (22-30); Chloride 107 mmol/L (98-107); Glucose 146 mg/dL (74-99); Non-African American GFR(CKD) 75 (>60 ml/min/1.73 sqM); Sodium 137 mmol/L (137-145)
[2021-04-26 08:16] LABS: Anisocytosis Slight; Basophils % (A) 1 %; Eosinophils # (A) 0.1 k/uL (0-0.7); Eosinophils % (A) 2 %; HCT 23.3 % (34.0-46.0); HGB 7.3 gm/dL (11.4-16.0); Hypochromasia Moderate; Lymphocytes # (A) 0.7 k/uL (1.0-4.8); Lymphocytes % (A) 9 %; MCH 26.4 pg (25.0-35.0); MCHC 31.3 g/dL (31.0-37.0); MCV 84.3 fL (80.0-100.0); Mean Platelet Volume 13.1; Microcytosis Slight; Monocytes # (A) 0.6 k/uL (0-1.0); Monocytes % (A) 8 %; Neutrophils # (A) 6.1 k/uL (1.3-7.7); Neutrophils % (A) 80 %; Poikilocytosis Slight; RBC 2.76 m/uL (3.80-5.40); RDW 18.9 % (11.5-15.5); WBC 7.6 k/uL (3.8-10.6)
[2021-04-26] MEDS: PANTOPRAZOLE 40 MG/10 ML VIAL IVP SCH (08:39)
[2021-04-26] MEDS: SENNOSIDES-DOCUSATE SODIUM 1 EACH TAB PO SCH ×2 (08:40→17:34)
[2021-04-26] MEDS: INSULIN ASPART (NovoLOG) 100 UNIT/ML VIAL SQ SCH ×4 (08:40→21:39)
[2021-04-26] MEDS: LEVOTHYROXINE 75 MCG TAB PO SCH (08:40)
[2021-04-26] MEDS: FOLIC ACID 1 MG TAB PO SCH (08:40)
[2021-04-26] MEDS: polyethylene glycoL 3350 17 GM POWD.PACK PO SCH (08:40)
[2021-04-26] MEDS: METOPROLOL TARTRATE 50 MG TAB PO SCH ×2 (08:41→17:34)
[2021-04-26] MEDS: FLUCONAZOLE 100 MG TAB PO SCH (08:41)
[2021-04-26] MEDS: CARBIDOPA-LEVODOPA 25-100 MG 1 EACH TAB PEG/G-TUBE SCH ×4 (08:41→21:38)
[2021-04-26] MEDS: MAGNESIUM OXIDE 400 MG TAB PO SCH ×3 (08:41→17:34)
[2021-04-26] MEDS: NYSTATIN 100,000 UNIT/GM POWD 15 GM TOPICAL SCH ×3 (08:53→21:40)
[2021-04-26] MEDS: SODIUM CHLORIDE 0.9% 1,000 ML IV SCH ×2 (08:53→12:01)
[2021-04-26 09:22] LABS: Platelet Count 150 k/uL (150-450)
[2021-04-26 11:34] LABS: Glucose,Whole Blood 123 mg/dL (75-99)
[2021-04-26] MEDS: POTASSIUM CHLORIDE ER 20 MEQ TAB.ER PO SCH (11:42)
--- NOTE | 2021-04-26 11:56 | P.PN ---
Subjective This is a 75-year-old female with past medical history of UTI Strep agalactiae - (group b) with Pyelonephritis, severe right hydronephrosis with right ureteral stent insertion to 12/26/20,CVA with residual left-sided weakness, expressive aphasia/TIA, hyperlipidemia, hypertension, chronic renal failure, hypothyroidism, obesity, anxiety, bipolar, depression, former nicotine dependence presented to the ER via EMS for [facility] with reports that patient had mental status changes, combative over the last few days with an episode of vomiting. Patient's baseline is chronic residual left-sided weakness from prior CVA with expressive aphasia. Patient currently nonverbal, rigid, posturing, attempting to communicate with blinking of right eye. Febrile, T-max 100.3, WBC 13.1 yesterday down to 7.9. Maintained on vancomycin. Hemoglobin 8, platelets 217, glucose 104, potassium 2.8, magnesium 1.4 both being supplemented. Sodium 140, BUN 9, creatinine 0.73. Lactic acid 0.8. UA reporting urine WBCs 21, large leukocytes 1+ ketones. EKG reported normal sinus rhythm, left ventricular hypertrophy, chest x-ray reporting bibasilar atelectasis/subsegmental consolidation. Baca virus not detected. 04/18/[address] reported chronic appearing periventricular white matter ischemic type changes, stable .evaluated by neurology who attributes clinical presentation to suspected severe Parkinsonian from not having Sinemet for a few days. PEG tube placement pending .maintained on IV fluid hydration. Remains encephalopathic,more alert today, minimally conversing, not following commands. EEG/EMG completed, results pending T-max 99.9, normal WBC. Urine culture reporting enterococcus faecium.preliminary blood cultures reporting no growth at 48 hours Continues on vancomycin, creatinine 0.68. Hemoglobin 8.5, platelets 171. Potassium 3.2, magnesium 2.2. 04/21/2021 maintain IV fluid hydration. Lethargic, nausea and vomiting reported after meds administered via PEG-therefore has not received Sinemet yet today. Urology reconsult regarding cystoscopy for hydronephrosis. Impacted, fleets enemas/disimpaction ordered. PICC line ordered for TPN, as patient has been without nutrition for several days prior to admission and has not been able to be started on PEG tube feedings. Afebrile. 04/22/2021 more alert, received Sinemet yesterday and this morning, no nausea vomiting. We'll reattempt tube feeds via PEG tube -if unable to tolerate then we'll proceed with PICC line and TPN. Received one fleets enema with small stool and reported. Potassium 2.8, receiving supplementation, magnesium 1.8. Urine remains cloudy. Evaluated by urology and scheduled for surgery/potential cystoscopy/right ureteral stent removal/8 ureteroscopy/possible replacement of stent on 04/24/2021. 04/23/2021 large bowel movement last night. Reports diffuse abdominal pain. Tolerating tube feeds at 40 MLS per hour/Goal of 55 with minimal to no res iduals, no nausea or vomiting. Continues on vancomycin. Scheduled for cystoscopy tomorrow with right ureteral stent exchange. Afebrile. 04/24/2021 Recently returned from cystoscopy, verbal report of stent exchange- multiple attempts. Currently sedated, opens eyes and falls back asleep. 04/25/2021 postop day #1 from cystoscopy. Procedure note reports right ureteral stent removed, multiple attempts made to identify the triple-lumen unable to identify, contrast injected but did not pass into the renal pelvis, multiple attempts made to advance Glidewire-unsuccessful, and procedure was terminated. Bueno catheter with yellow urine with sediment. Patient sleepy but continues to complain of pain, attempting to use communication board. Afebrile, BMP pending. 04/26/2021: Patient is postop day 2 cystoscopy with removal of ureteral stent. There were unable to put another stent in. A urostomy tube is recommended if she continues to have problems per urology. She remains afebrile, blood pressure heart rate and restaurant rate remained stable. Infectious disease, urology and neurology are following. Their notes were reviewed today. Electrolytes are stable. Sugar slightly elevated before breakfast and 156. She large bowel movement last night. She is noted to have elevated TSH at 6.27. She remains on Synthroid of 150 g daily. She remains on vancomycin for her complicated UTI. Diflucan and added. Chillier self this morning is somnolent, but arousable. She can she's tired. She denies any other complaints when specifically asked. She continues to have significant upper extremity edema, most likely from the IV fluids she was on. Her tube feedings are currently at goal at 55 mL per hour. Objective - Vital Signs Vital signs: Vital Signs Temp 98.4 F 04/26/21 08:00 Pulse 72 04/26/21 08:00 Resp 18 04/26/21 08:00 BP 118/72 04/26/21 08:00 Pulse Ox 97 04/26/21 08:00 Intake & Output 04/25/21 04/26/21 04/26/21 18:59 06:59 18:59 Intake Total 800 Output Total 403 800 Balance 397 -800 Weight 92 kg 103 kg Intake: Tube Feeding 600 Other 200 Output: Urine 400 800 Stool 3 Other: Voiding Method Indwelling Catheter Indwelling Catheter Indwelling Catheter # Bowel Movements 1 - Exam General: Lying in bed, sleepy but arousable HEENT: PERRL. EOMI. Neck: Supple, no JVD. Cardiac: Heart regular in rate and rhythm. No S3. No S4. No clicks, rubs. No murmur. Lungs: Clear breath sounds, no rhonchi, bilateral bases diminished. Abdomen: Soft, distended due to truncal obesity, mild diffuse tenderness, no guarding, no rigidity .No mass palpable. Positive bowel sounds. PEG tube is in place. Clean dry and intact Extremities: Positive edema, normal pulses. Skin: Warm and dry, Neurologic: Patient is easily arousable and answers my questions today. ( baseline expressive aphasia, chronic residual left-sided weakness. ) ] - Labs CBC & Chem 7: 04/26/21 07:04 04/26/21 07:04 Labs: Abnormal Lab Results - Last 24 Hours (Table) 04/25/21 04/25/21 04/25/21 Range/Units 16:26 16:48 20:34 RBC (3.80-5.40) m/uL Hgb (11.4-16.0) gm/dL Hct (34.0-46.0) % RDW (11.5-15.5) % Lymphocytes # (1.0-4.8) k/uL Chloride 108 H (98-107) mmol/L Glucose 132 H (74-99) mg/dL POC Glucose (mg/dL) 151 H 144 H (75-99) mg/dL Calcium 8.1 L (8.4-10.2) mg/dL 04/26/21 04/26/21 04/26/21 Range/Units 07:04 07:04 07:14 RBC 2.76 L (3.80-5.40) m/uL Hgb 7.3 L (11.4-16.0) gm/dL Hct 23.3 L (34.0-46.0) % RDW 18.9 H (11.5-15.5) % Lymphocytes # 0.7 L (1.0-4.8) k/uL Chloride (98-107) mmol/L Glucose 146 H (74-99) mg/dL POC Glucose (mg/dL) 156 H (75-99) mg/dL Calcium 7.7 L (8.4-10.2) mg/dL 04/26/21 Range/Units 11:32 RBC (3.80-5.40) m/uL Hgb (11.4-16.0) gm/dL Hct (34.0-46.0) % RDW (11.5-15.5) % Lymphocytes # (1.0-4.8) k/uL Chloride (98-107) mmol/L Glucose (74-99) mg/dL POC Glucose (mg/dL) 123 H (75-99) mg/dL Calcium (8.4-10.2) mg/dL Microbiology - Last 24 Hours (Table) 04/25/21 05:50 Urine Culture - Preliminary Urine,Voided Assessment and Plan (1) UTI (lower urinary tract infection) Current Visit: Yes Status: Acute Code(s): N39.0 - URINARY TRACT INFECTION, SITE NOT SPECIFIED SNOMED Code(s): 1502463 (2) Encephalopathy Current Visit: Yes Status: Acute Code(s): G93.40 - ENCEPHALOPATHY, UNSPECIFIED SNOMED Code(s): 66602278 (3) Acquired hydronephrosis due to obstruction of ureteropelvic junction (UPJ) Current Visit: No Status: Acute Code(s): N13.0 - HYDRONEPHROSIS WITH URETEROPELVIC JUNCTION OBSTRUCTION SNOMED Code(s): 541680259 (4) Debility Current Visit: No Status: Acute Code(s): R53.81 - OTHER MALAISE SNOMED Code(s): 04173676 (5) History of CVA (cerebrovascular accident) Current Visit: No Status: Acute Code(s): Z86.73 - PRSNL HX OF TIA (TIA), AND CEREB INFRC W/O RESID DEFICITS SNOMED Code(s): 501077759 (6) Normocytic anemia Current Visit: No Status: Acute Code(s): D64.9 - ANEMIA, UNSPECIFIED SNOMED Code(s): 352788887 (7) Obesity Current Visit: No Status: Acute Code(s): E66.9 - OBESITY, UNSPECIFIED SNOMED Code(s): 752054732 (8) Parkinson disease Current Visit: No Status: Acute Code(s): G20 - PARKINSON'S DISEASE SNOMED Code(s): 55261382 (9) Pure hypercholesterolemia Current Visit: No Status: Acute Code(s): E78.00 - PURE HYPERCHOLESTEROLEMIA, UNSPECIFIED SNOMED Code(s): 022222482 (10) Pyelonephritis Current Visit: No Status: Acute Code(s): N12 - TUBULO-INTERSTITIAL NE PHRITIS, NOT SPCF ACUTE OR CHRONIC SNOMED Code(s): 86608315 Plan: Neurology, urology, and infectious disease recommendations were noted today. She'll remain on her Diflucan and vancomycin for antibiotic coverage. PT OT to evaluate and treat. IV fluids and then placed KVO due to her significant edema. Continue tube feeds at 55 mL per hour. She'll remain on her levothyroxine for hypothyroidism. Continue on the Mag-Ox magnesium replacement. Neurologic exam metoprolol for hypertension pravastatin for hyperlipidemia, lidocaine patch for pain, insulin scale coverage, vitamin D2 for deficiency, Sinemet for Parkinson's, Tylenol for pain. We'll repeat labs in a.m. she will be reevaluated next 24 hours
--- NOTE | 2021-04-26 12:18 | P.PN ---
Progress Note - Text Progress Note Date: 04/26/21 Mrs. Carmona indicates that she is experiencing right flank discomfort. She is afebrile. Her serum creatinine level remained stable. If he flank pain persists, she may require placement of a percutaneous nephrostomy tube.
[2021-04-26 16:30] LABS: Glucose,Whole Blood 134 mg/dL (75-99)
[2021-04-26 20:23] LABS: Glucose,Whole Blood 137 mg/dL (75-99)
[2021-04-26] MEDS ORDERED: VANCOMYCIN 1,500 MG in SODIUM CHLORIDE 0.9% 250 ML IVPB SCH (21:00)
[2021-04-26] MEDS: PRAVASTATIN SODIUM 80 MG TAB PO SCH (21:38)
--- NOTE | 2021-04-26 23:43 | PN ---
PROGRESS NOTE DATE OF SERVICE: 04/26/2021 REASON FOR FOLLOWUP: Complicated UTI infection. INTERVAL HISTORY: Patient is afebrile. The patient is more awake and alert today. She is breathing comfortably. The patient did answer some simple questions. Denies having any chest pain or cough. No abdominal pain or diarrhea. PHYSICAL EXAMINATION: Blood pressure 136/75, pulse of 91, temperature 98.3. She is 96% on room air. General description is an elderly female lying in bed in no distress. Respiratory system: Unlabored breathing, clear to auscultation anteriorly. Heart S1, S2. Regular rate and rhythm. Abdomen soft, no tenderness. LABS: Hemoglobin is 7.9, white count 7.6, BUN of 10, creatinine 0.79. Repeat urine is positive. DIAGNOSTIC IMPRESSION AND PLAN: Patient with complicated urinary tract infection, urine with Enterococcus faecium, vancomycin sensitive. Patient on vancomycin. Repeat urine shows Fani albicans and is covered with Vanco and Diflucan. We will follow up on the culture from yesterday to determine discharge antibiotics. Continue supportive care. MMODL / IJN: [id number] /
[2021-04-27 07:07] LABS: Glucose,Whole Blood 157 mg/dL (75-99)
[2021-04-27] MEDS: polyethylene glycoL 3350 17 GM POWD.PACK PO SCH (07:20)
[2021-04-27] MEDS: FOLIC ACID 1 MG TAB PO SCH (07:20)
[2021-04-27] MEDS: MAGNESIUM OXIDE 400 MG TAB PO SCH ×3 (07:20→16:26)
[2021-04-27] MEDS: INSULIN ASPART (NovoLOG) 100 UNIT/ML VIAL SQ SCH ×4 (07:20→21:23)
[2021-04-27] MEDS: PANTOPRAZOLE 40 MG/10 ML VIAL IVP SCH (07:21)
[2021-04-27] MEDS: METOPROLOL TARTRATE 50 MG TAB PO SCH ×2 (07:21→16:26)
[2021-04-27] MEDS: NYSTATIN 100,000 UNIT/GM POWD 15 GM TOPICAL SCH ×3 (07:21→21:23)
[2021-04-27] MEDS: CARBIDOPA-LEVODOPA 25-100 MG 1 EACH TAB PEG/G-TUBE SCH ×4 (07:21→21:09)
[2021-04-27] MEDS: SENNOSIDES-DOCUSATE SODIUM 1 EACH TAB PO SCH ×2 (07:21→16:26)
[2021-04-27] MEDS: FLUCONAZOLE 100 MG TAB PO SCH (07:21)
[2021-04-27] MEDS: LEVOTHYROXINE 75 MCG TAB PO SCH (07:21)
[2021-04-27 09:07] LABS: Basophils # (A) 0.01 X 10*3/uL (0.00-0.10); Basophils % (A) 0.1 %; Eosinophils % (A) 1.3 %; HCT 22.9 % (37.2-46.3); Lymphocytes # (A) 0.84 X 10*3/uL (0.90-5.00); Lymphocytes % (A) 11.1 %; MCH 26.5 pg (27.0-32.0); MCHC 30.6 g/dL (32.0-37.0); MCV 86.7 fL (80.0-97.0); Mean Platelet Volume 11.3 fL (9.5-12.2); Monocytes % (A) 10.6 %; Neutrophils # (A) 5.58 X 10*3/uL (1.80-7.70); Neutrophils % (A) 73.7 %; Platelet Count 160 X 10*3/uL (140-440); RBC 2.64 X 10*6/uL (4.10-5.20); RDW 18.7 % (11.5-14.5); WBC 7.57 X 10*3/uL (4.50-10.00)
--- NOTE | 2021-04-27 10:05 | P.PN ---
Progress Note - Text Progress Note Date: 04/27/21 Mrs. Carmona remains afebrile. Her primary complaint is constipation, though she continues to report right flank discomfort. Unfortunately, her stent was removed on April 24 and I was unable to successfully replace the stent. If her flank discomfort fails to improve following the laxatives she is receiving, she may require insertion of a right percutaneous nephrostomy tube.
[2021-04-27 11:31] LABS: Glucose,Whole Blood 142 mg/dL (75-99)
--- NOTE | 2021-04-27 11:45 | P.PN ---
Subjective This is a 75-year-old female with past medical history of UTI Strep agalactiae - (group b) with Pyelonephritis, severe right hydronephrosis with right ureteral stent insertion to 12/26/20,CVA with residual left-sided weakness, expressive aphasia/TIA, hyperlipidemia, hypertension, chronic renal failure, hypothyroidism, obesity, anxiety, bipolar, depression, former nicotine dependence presented to the ER via EMS for [facility] with reports that patient had mental status changes, combative over the last few days with an episode of vomiting. Patient's baseline is chronic residual left-sided weakness from prior CVA with expressive aphasia. Patient currently nonverbal, rigid, posturing, attempting to communicate with blinking of right eye. Febrile, T-max 100.3, WBC 13.1 yesterday down to 7.9. Maintained on vancomycin. Hemoglobin 8, platelets 217, glucose 104, potassium 2.8, magnesium 1.4 both being supplemented. Sodium 140, BUN 9, creatinine 0.73. Lactic acid 0.8. UA reporting urine WBCs 21, large leukocytes 1+ ketones. EKG reported normal sinus rhythm, left ventricular hypertrophy, chest x-ray reporting bibasilar atelectasis/subsegmental consolidation. Baca virus not detected. 04/18/[address] reported chronic appearing periventricular white matter ischemic type changes, stable .evaluated by neurology who attributes clinical presentation to suspected severe Parkinsonian from not having Sinemet for a few days. PEG tube placement pending .maintained on IV fluid hydration. Remains encephalopathic,more alert today, minimally conversing, not following commands. EEG/EMG completed, results pending T-max 99.9, normal WBC. Urine culture reporting enterococcus faecium.preliminary blood cultures reporting no growth at 48 hours Continues on vancomycin, creatinine 0.68. Hemoglobin 8.5, platelets 171. Potassium 3.2, magnesium 2.2. 04/21/2021 maintain IV fluid hydration. Lethargic, nausea and vomiting reported after meds administered via PEG-therefore has not received Sinemet yet today. Urology reconsult regarding cystoscopy for hydronephrosis. Impacted, fleets enemas/disimpaction ordered. PICC line ordered for TPN, as patient has been without nutrition for several days prior to admission and has not been able to be started on PEG tube feedings. Afebrile. 04/22/2021 more alert, received Sinemet yesterday and this morning, no nausea vomiting. We'll reattempt tube feeds via PEG tube -if unable to tolerate then we'll proceed with PICC line and TPN. Received one fleets enema with small stool and reported. Potassium 2.8, receiving supplementation, magnesium 1.8. Urine remains cloudy. Evaluated by urology and scheduled for surgery/potential cystoscopy/right ureteral stent removal/8 ureteroscopy/possible replacement of stent on 04/24/2021. 04/23/2021 large bowel movement last night. Reports diffuse abdominal pain. Tolerating tube feeds at 40 MLS per hour/Goal of 55 with minimal to no res iduals, no nausea or vomiting. Continues on vancomycin. Scheduled for cystoscopy tomorrow with right ureteral stent exchange. Afebrile. 04/24/2021 Recently returned from cystoscopy, verbal report of stent exchange- multiple attempts. Currently sedated, opens eyes and falls back asleep. 04/25/2021 postop day #1 from cystoscopy. Procedure note reports right ureteral stent removed, multiple attempts made to identify the triple-lumen unable to identify, contrast injected but did not pass into the renal pelvis, multiple attempts made to advance Glidewire-unsuccessful, and procedure was terminated. Bueno catheter with yellow urine with sediment. Patient sleepy but continues to complain of pain, attempting to use communication board. Afebrile, BMP pending. 04/26/2021: Patient is postop day 2 cystoscopy with removal of ureteral stent. There were unable to put another stent in. A urostomy tube is recommended if she continues to have problems per urology. She remains afebrile, blood pressure heart rate and restaurant rate remained stable. Infectious disease, urology and neurology are following. Their notes were reviewed today. Electrolytes are stable. Sugar slightly elevated before breakfast and 156. She large bowel movement last night. She is noted to have elevated TSH at 6.27. She remains on Synthroid of 150 g daily. She remains on vancomycin for her complicated UTI. Diflucan and added. Chillier self this morning is somnolent, but arousable. She can she's tired. She denies any other complaints when specifically asked. She continues to have significant upper extremity edema, most likely from the IV fluids she was on. Her tube feedings are currently at goal at 55 mL per hour. 04/27/2021: Patient status postop day #3 cystoscopy and ureteral stent removal. New stent could not be placed. Urology is following. They're considering a right-sided nephrostomy tube if her right lower quadrant pain is not resolved. Today she complains of right lower quadrant pain. She currently denies any nausea vomiting, chest pains, pressures, shortness of breath. She is nothing by mouth still. She remains afebrile, heart rate restaurant rate and blood pressure remained stable. Pulse oximetry remained stable. Hemoglobin this morning was 7.0. MCV is 86.7. Glucose remained fairly well controlled. She remains on vancomycin and Diflucan for a complicated UTI. Infectious disease is following. Objective - Vital Signs Vital signs: Vital Signs Temp 98.4 F 04/27/21 06:43 Pulse 83 04/27/21 07:21 Resp 16 04/27/21 06:43 BP 126/69 04/27/21 06:43 Pulse Ox 96 04/27/21 06:43 Intake & Output 04/26/21 04/27/21 04/27/21 18:59 06:59 18:59 Intake Total 385 Output Total 500 Balance -115 Intake: Tube Feeding 385 Output: Urine 500 Other: Voiding Method Indwelling Catheter Indwelling Catheter Indwelling Catheter - Exam General: Lying in bed, sleepy but arousable Neck: Supple, no JVD. Cardiac: Heart regular in rate and rhythm. No S3. No S4. No clicks, rubs. No murmur. Lungs: Clear breath sounds, no rhonchi, bilateral bases diminished. Abdomen: Soft, distended due to truncal obesity, mild diffuse tenderness mostly at the right lower quadrant, no guarding, no rigidity .No mass palpable. Po sitive bowel sounds. PEG tube is in place. Clean dry and intact Extremities: Positive edema, both upper and lower extremities Skin: Warm and dry, Neurologic: Patient is easily arousable and answers my questions today. ( baseline expressive aphasia, chronic residual left-sided weakness. ) ] - Labs CBC & Chem 7: 04/27/21 06:34 04/26/21 07:04 Labs: Abnormal Lab Results - Last 24 Hours (Table) 04/26/21 04/26/21 04/27/21 Range/Units 16:27 20:21 06:34 RBC 2.64 L (4.10-5.20) X 10*6/uL Hgb 7.0 L (12.0-15.0) g/dL Hct 22.9 L (37.2-46.3) % MCH 26.5 L (27.0-32.0) pg MCHC 30.6 L (32.0-37.0) g/dL RDW 18.7 H (11.5-14.5) % Immature Gran # 0.24 H (0.00-0.04) X 10*3/uL Lymphocytes # 0.84 L (0.90-5.00) X 10*3/uL POC Glucose (mg/dL) 134 H 137 H (75-99) mg/dL 04/27/21 04/27/21 Range/Units 07:06 11:30 RBC (4.10-5.20) X 10*6/uL Hgb (12.0-15.0) g/dL Hct (37.2-46.3) % MCH (27.0-32.0) pg MCHC (32.0-37.0) g/dL RDW (11.5-14.5) % Immature Gran # (0.00-0.04) X 10*3/uL Lymphocytes # (0.90-5.00) X 10*3/uL POC Glucose (mg/dL) 157 H 142 H (75-99) mg/dL Microbiology - Last 24 Hours (Table) 04/25/21 05:50 Urine Culture - Final Urine,Voided Assessment and Plan (1) UTI (lower urinary tract infection) Current Visit: Yes Status: Acute Code(s): N39.0 - URINARY TRACT INFECTION, SITE NOT SPECIFIED SNOMED Code(s): 6866057 (2) Encephalopathy Current Visit: Yes Status: Acute Code(s): G93.40 - ENCEPHALOPATHY, UNSPECIFIED SNOMED Code(s): 03319968 (3) Acquired hydronephrosis due to obstruction of ureteropelvic junction (UPJ) Current Visit: No Status: Acute Code(s): N13.0 - HYDRONEPHROSIS WITH URETEROPELVIC JUNCTION OBSTRUCTION SNOMED Code(s): 250533613 (4) Debility Current Visit: No Status: Acute Code(s): R53.81 - OTHER MALAISE SNOMED Code(s): 28522618 (5) History of CVA (cerebrovascular accident) Current Visit: No Status: Acute Code(s): Z86.73 - PRSNL HX OF TIA (TIA), AND CEREB INFRC W/O RESID DEFICITS SNOMED Code(s): 207573297 (6) Normocytic anemia Current Visit: No Status: Acute Code(s): D64.9 - ANEMIA, UNSPECIFIED SNOME D Code(s): 006043685 (7) Obesity Current Visit: No Status: Acute Code(s): E66.9 - OBESITY, UNSPECIFIED SNOMED Code(s): 592433556 (8) Parkinson disease Current Visit: No Status: Acute Code(s): G20 - PARKINSON'S DISEASE SNOMED Code(s): 81790018 (9) Pure hypercholesterolemia Current Visit: No Status: Acute Code(s): E78.00 - PURE HYPERCHOLESTEROLEMIA, UNSPECIFIED SNOMED Code(s): 614094163 (10) Pyelonephritis Current Visit: No Status: Acute Code(s): N12 - TUBULO-INTERSTITIAL NEPHRITIS, NOT SPCF ACUTE OR CHRONIC SNOMED Code(s): 71991998 Plan: Neurology, urology, and infectious disease recommendations were noted today. She'll remain on her Diflucan and vancomycin for antibiotic coverage. PT OT to evaluate and treat. We'll type cross transfuse 1 unit packed red blood cells this time. She is receiving Dulcolax suppositories and/or MiraLAX for constipation. We'll advance her oral diet to clears at this time. IV fluids at KVO. Since her swelling is not improved we will order a Tubigrip or Foster wraps to her right upper extremity help with edema control Continue tube feeds at 55 mL per hour. She'll remain on her levothyroxine for hypothyroidism. Continue on the Mag-Ox magnesium replacement. Neurologic exam metoprolol for hypertension pravastatin for hyperlipidemia, lidocaine patch for pain, insulin scale coverage, vitamin D2 for deficiency, Sinemet for Parkinson's, Tylenol for pain. We'll repeat labs in a.m. she will be reevaluated next 24 hours
[2021-04-27] MEDS: POTASSIUM CHLORIDE ER 20 MEQ TAB.ER PO SCH (13:31)
[2021-04-27] MEDS: SODIUM CHLORIDE 0.9% 1,000 ML IV SCH (13:32)
[2021-04-27 16:49] LABS: Glucose,Whole Blood 153 mg/dL (75-99)
--- NOTE | 2021-04-27 19:01 | PN ---
PROGRESS NOTE DATE OF SERVICE: 04/27/2021 REASON FOR FOLLOWUP: Complicated urinary tract infection. INTERVAL HISTORY: Patient is afebrile. The patient is breathing comfortably, nonverbal per the daughter at the bedside. No vomiting, diarrhea or any other changes reported by nursing staff. PHYSICAL EXAMINATION: Blood pressure 121/69 with a pulse of 82, temperature is 97.6. General description is an elderly female lying in no distress. Respiratory system: Unlabored breathing, clear to auscultation anteriorly. Heart S1, S2. Regular rate. ABDOMEN: Soft, no tenderness. LABS: BUN of 7, creatinine 1.57. Repeat urine is so far negative. DIAGNOSTIC IMPRESSION AND PLAN: Patient with complicated urinary tract infection, urine with Enterococcus faecium, vancomycin sensitive. The patient did have a right-sided hydronephrosis status post exchange of the ureteral stent. Repeat urine is negative. Will recommend discontinue vancomycin on discharge and short course of oral Diflucan. Continue supportive care. MMODL / IJN: [id number] /
[2021-04-27 20:25] LABS: Glucose,Whole Blood 130 mg/dL (75-99)
[2021-04-27] MEDS: bisacodyL 10 MG SUPP RECTAL PRN (21:09)
[2021-04-27] MEDS: PRAVASTATIN SODIUM 80 MG TAB PO SCH (21:09)
[2021-04-27] MEDS: ONDANSETRON 4 MG/2 ML VIAL IVP PRN (21:16)
[2021-04-27] MEDS ORDERED: NA PHOS,M-B/NA PHOS,DI-BA 133 ML ENEMA RECTAL ONE (23:45)
[2021-04-28 07:22] LABS: Glucose,Whole Blood 135 mg/dL (75-99)
[2021-04-28] MEDS: INSULIN ASPART (NovoLOG) 100 UNIT/ML VIAL SQ SCH ×4 (07:42→21:38)
[2021-04-28 08:10] LABS: African American GFR (CKD) >90 (>60 ml/min/1.73 sqM); Anion Gap 4 mmol/L; Blood Urea Nitrogen 15 mg/dL (7-17); Carbon Dioxide 29 mmol/L (22-30); Chloride 106 mmol/L (98-107); Glucose 123 mg/dL (74-99); Non-African American GFR(CKD) 80 (>60 ml/min/1.73 sqM); Sodium 139 mmol/L (137-145)
[2021-04-28 08:12] LABS: Potassium 4.1 mmol/L (3.5-5.1)
[2021-04-28] MEDS: PANTOPRAZOLE 40 MG/10 ML VIAL IVP SCH (08:26)
[2021-04-28] MEDS: METOPROLOL TARTRATE 50 MG TAB PO SCH ×2 (08:26→16:30)
[2021-04-28] MEDS: CARBIDOPA-LEVODOPA 25-100 MG 1 EACH TAB PEG/G-TUBE SCH ×4 (08:26→21:58)
[2021-04-28] MEDS: polyethylene glycoL 3350 17 GM POWD.PACK PO SCH (08:26)
[2021-04-28] MEDS: SENNOSIDES-DOCUSATE SODIUM 1 EACH TAB PO SCH ×2 (08:26→16:30)
[2021-04-28] MEDS: FLUCONAZOLE 100 MG TAB PO SCH (08:26)
[2021-04-28] MEDS: LEVOTHYROXINE 75 MCG TAB PO SCH (08:26)
[2021-04-28] MEDS: FOLIC ACID 1 MG TAB PO SCH (08:26)
[2021-04-28] MEDS: MAGNESIUM OXIDE 400 MG TAB PO SCH ×3 (08:26→16:30)
[2021-04-28] MEDS: NYSTATIN 100,000 UNIT/GM POWD 15 GM TOPICAL SCH ×3 (08:27→21:59)
--- NOTE | 2021-04-28 09:47 | P.PN ---
Subjective Progress Note Date: 04/28/21 She remain afebrile, no gross hematuria, she is poor historian but no evidence of flank pain. Her creatinine remains stable at 0.74. Her primary complaint is constipation, had small BM yesterday, but her abdomen is still distended, and still having nausea with vomiting. No flank pain this a.m, still having issues with constipation, and nausea. Small BM after laxatives. We will reassess tomorrow, if still has nausea, with resolution of the constipation or she's having flank pain will plan on proceeding with right-sided nephrostomy tube placement Objective - Vital Signs Vital signs: Vital Signs Temp 97.8 F 04/28/21 07:55 Pulse 81 04/28/21 07:55 Resp 20 04/28/21 07:55 BP 159/76 04/28/21 07:55 Pulse Ox 94 L 04/28/21 07:55 Intake & Output 04/27/21 04/28/21 04/28/21 18:59 06:59 18:59 Intake Total 310 Output Total 445 Balance 310 -445 Weight 105 kg Intake: Blood Product 310 Rc As-1 Unit 310 [id number] Output: Urine 400 Emesis 45 Other: Voiding Method Indwelling Catheter Indwelling Catheter Indwelling Catheter # Emeses 2 - Labs CBC & Chem 7: 04/27/21 06:34 04/28/21 06:23 Labs: Abnormal Lab Results - Last 24 Hours (Table) 04/27/21 04/27/21 04/27/21 Range/Units 11:30 11:34 16:47 Glucose (74-99) mg/dL POC Glucose (mg/dL) 142 H 153 H (75-99) mg/dL Calcium (8.4-10.2) mg/dL Crossmatch See Detail 04/27/21 04/28/21 04/28/21 Range/Units 20:24 06:23 07:10 Glucose 123 H (74-99) mg/dL POC Glucose (mg/dL) 130 H 135 H (75-99) mg/dL Calcium 8.0 L (8.4-10.2) mg/dL Crossmatch
[2021-04-28 11:29] LABS: Glucose,Whole Blood 143 mg/dL (75-99)
[2021-04-28 11:57] LABS: Basophils # (A) 0.01 X 10*3/uL (0.00-0.10); Basophils % (A) 0.1 %; Eosinophils # (A) 0.03 X 10*3/uL (0.04-0.35); Eosinophils % (A) 0.2 %; HGB 9.1 g/dL (12.0-15.0); Lymphocytes # (A) 0.75 X 10*3/uL (0.90-5.00); Lymphocytes % (A) 5.5 %; MCH 27.7 pg (27.0-32.0); MCHC 32.5 g/dL (32.0-37.0); MCV 85.4 fL (80.0-97.0); Monocytes # (A) 1.19 X 10*3/uL (0.20-1.00); Monocytes % (A) 8.8 %; Neutrophils # (A) 11.38 X 10*3/uL (1.80-7.70); Neutrophils % (A) 84.2 %; Platelet Count 147 X 10*3/uL (140-440); RBC 3.28 X 10*6/uL (4.10-5.20); RDW 18.4 % (11.5-14.5); WBC 13.52 X 10*3/uL (4.50-10.00)
[2021-04-28] MEDS: POTASSIUM CHLORIDE ER 20 MEQ TAB.ER PO SCH (12:44)
--- NOTE | 2021-04-28 15:09 | P.PN ---
Subjective Progress Note Date: 04/28/21 This is a 75-year-old female with past medical history of UTI Strep agalactiae - (group b) with Pyelonephritis, severe right hydronephrosis with right ureteral stent insertion to 12/26/20,CVA with residual left-sided weakness, expressive aphasia/TIA, hyperlipidemia, hypertension, chronic renal failure, hypo thyroidism, obesity, anxiety, bipolar, depression, former nicotine dependence presented to the ER via EMS for [facility] with reports that patient had mental status changes, combative over the last few days with an episode of vomiting. Patient's baseline is chronic residual left-sided weakness from prior CVA with expressive aphasia. Patient currently nonverbal, rigid, posturing, attempting to communicate with blinking of right eye. Febrile, T-max 100.3, WBC 13.1 yesterday down to 7.9. Maintained on vancomycin. Hemoglobin 8, platelets 217, glucose 104, potassium 2.8, magnesium 1.4 both being supplemented. Sodium 140, BUN 9, creatinine 0.73. Lactic acid 0.8. UA reporting urine WBCs 21, large leukocytes 1+ ketones. EKG reported normal sinus rhythm, left ventricular hypertrophy, chest x-ray reporting bibasilar atelectasis/subsegmental consolidation. Baca virus not detected. 04/18/[address] reported chronic appearing periventricular white matter ischemic type changes, stable .evaluated by neurology who attributes clinical presentation to suspected severe Parkinsonian from not having Sinemet for a few days. PEG tube placement pending .maintained on IV fluid hydration. Remains encephalopathic,more alert today, minimally conversing, not following commands. EEG/EMG completed, results pending T-max 99.9, normal WBC. Urine culture reporting enterococcus faecium.preliminary blood cultures reporting no growth at 48 hours Continues on vancomycin, creatinine 0.68. Hemoglobin 8.5, platelets 171. Potassium 3.2, magnesium 2.2. 04/21/2021 maintain IV fluid hydration. Lethargic, nausea and vomiting reported after meds administered via PEG-therefore has not received Sinemet yet today. Urology reconsult regarding cystoscopy for hydronephrosis. Impacted, fleets jermaine mas/disimpaction ordered. PICC line ordered for TPN, as patient has been without nutrition for several days prior to admission and has not been able to be started on PEG tube feedings. Afebrile. 04/22/2021 more alert, received Sinemet yesterday and this morning, no nausea vomiting. We'll reattempt tube feeds via PEG tube -if unable to tolerate then we'll proceed with PICC line and TPN. Received one fleets enema with small stool and reported. Potassium 2.8, receiving supplementation, magnesium 1.8. Urine remains cloudy. Evaluated by urology and scheduled for surgery/potential cystoscopy/right ureteral stent removal/8 ureteroscopy/possible replacement of stent on 04/24/2021. 04/23/2021 large bowel movement last night. Reports diffuse abdominal pain. Tolerating tube feeds at 40 MLS per hour/Goal of 55 with minimal to no residuals, no nausea or vomiting. Continues on vancomycin. Scheduled for cystoscopy tomorrow with right ureteral stent exchange. Afebrile. 04/24/2021 Recently returned from cystoscopy, verbal report of stent exchange- multiple attempts. Currently sedated, opens eyes and falls back asleep. 04/25/2021 postop day #1 from cystoscopy. Procedure note reports right ureteral stent removed, multiple attempts made to identify the triple-lumen unable to identify, contrast injected but did not pass into the renal pelvis, multiple attempts made to advance Glidewire-unsuccessful, and procedure was terminated. Bueno catheter with yellow urine with sediment. Patient sleepy but continues to complain of pain, attempting to use communication board. Afebrile, BMP pending. 04/26/2021: Patient is postop day 2 cystoscopy with removal of ureteral stent. There were unable to put another stent in. A urostomy tube is recommended if she continues to have problems per urology. She remains afebrile, blood pressure heart rate and restaurant rate remained stable. Infectious disease, urology and neurology are following. Their notes were reviewed today. Electrolytes are stable. Sugar slightly elevated before breakfast and 156. She large bowel movement last night. She is noted to have elevated TSH at 6.27. She remains on Synthroid of 150 g daily. She remains on vancomycin for her complicated UTI. Diflucan and added. Chillier self this morning is somnolent, but arousable. She can she's tired. She denies any other complaints when specifically asked. She continues to have significant upper extremity edema, most likely from the IV fluids she was on. Her tube feedings are currently at goal at 55 mL per hour. 04/27/2021: Patient status postop day #3 cystoscopy and ureteral stent removal. New stent could not be placed. Urology is following. They're considering a right-sided nephrostomy tube if her right lower quadrant pain is not resolved. Today she complains of right lower quadrant pain. She currently denies any nausea vomiting, chest pains, pressures, shortness of breath. She is nothing by mouth still. She remains afebrile, heart rate restaurant rate and blood pressure remained stable. Pulse oximetry remained stable. Hemoglobin this morning was 7.0. MCV is 86.7. Glucose remained fairly well controlled. She remains on vancomycin and Diflucan for a complicated UTI. Infectious disease is following. 04/28/2021 complains of right lower quadrant pain. Denies nausea. Renal function stable, BUN 15, creatinine 0.74. Afebrile, WBC 13.52. Hemoglobin 9.1, platelets 147. Blood sugars controlled. Objective - Vital Signs Vital signs: Vital Signs Temp 98.3 F 04/28/21 13:43 Pulse 79 04/28/21 13:43 Resp 20 04/28/21 13:43 BP 144/76 04/28/21 13:43 Pulse Ox 95 04/28/21 13:43 Intake & Output 04/27/21 04/28/21 04/28/21 18:59 06:59 18:59 Intake Total 310 Output Total 445 Balance 310 -445 Weight 105 kg 105 kg Intake: Blood Product 310 Rc As-1 Unit 310 [id number] Output: Urine 400 Emesis 45 Other: Voiding Method Indwelling Catheter Indwelling Catheter Indwelling Catheter # Emeses 2 - Exam - Exam General: Lying in bed, NAD HEENT: PERRL. EOMI. Neck: Supple, no JVD. Cardiac: Heart regular in rate and rhythm. No S3. No S4. No clicks, rubs. No murmur. Lungs: Clear breath sounds, no rhonchi, bilateral bases diminished. Abdomen: Soft, distended due to truncal obesity, mild diffuse tenderness, no guarding, no rigidity .No mass palpable. Positive bowel sounds. PEG tube present. Extremities: Positive edema of all extremities, normal pulses. Skin: Warm and dry, Neurologic: Easily arousable, answering questions-baseline expressive aphasia, chronic residual left-sided weakness. ) ] Microbiology 04/25/21 05:50 Urine,Voided Urine Culture - Final 04/20/21 05:30 Urine,Catheterized Urine Culture - Final Fani albicans 04/15/21 18:10 Blood Blood Culture - Final No Growth after 144 hours 04/15/21 17:15 Blood Blood Culture - Final No Growth after 144 hours 04/15/21 17:15 Urine,Clean Catch Urine Culture - Final Enterococcus faecium - Labs CBC & Chem 7: 04/28/21 06:23 04/28/21 06:23 Labs: Abnormal Lab Results - Last 24 Hours (Table) 04/27/21 04/27/21 04/27/21 Range/Units 11:34 16:47 20:24 WBC (4.50-10.00) X 10*3/uL RBC (4.10-5.20) X 10*6/uL Hgb (12.0-15.0) g/dL Hct (37.2-46.3) % RDW (11.5-14.5) % Immature Gran # (0.00-0.04) X 10*3/uL Neutrophils # (1.80-7.70) X 10*3/uL Lymphocytes # (0.90-5.00) X 10*3/uL Monocytes # (0.20-1.00) X 10*3/uL Eosinophils # (0.04-0.35) X 10*3/uL Glucose (74-99) mg/dL POC Glucose (mg/dL) 153 H 130 H (75-99) mg/dL Calcium (8.4-10.2) mg/dL Crossmatch See Detail 04/28/21 04/28/21 04/28/21 Range/Units 06:23 06:23 07:10 WBC 13.52 H (4.50-10.00) X 10*3/uL RBC 3.28 L (4.10-5.20) X 10*6/uL Hgb 9.1 L (12.0-15.0) g/dL Hct 28.0 L (37.2-46.3) % RDW 18.4 H (11.5-14.5) % Immature Gran # 0.16 H (0.00-0.04) X 10*3/uL Neutrophils # 11.38 H (1.80-7.70) X 10*3/uL Lymphocytes # 0.75 L (0.90-5.00) X 10*3/uL Monocytes # 1.19 H (0.20-1.00) X 10*3/uL Eosinophils # 0.03 L (0.04-0.35) X 10*3/uL Glucose 123 H (74-99) mg/dL POC Glucose (mg/dL) 135 H (75-99) mg/dL Calcium 8.0 L (8.4-10.2) mg/dL Crossmatch 04/28/21 Range/Units 11:20 WBC (4.50-10.00) X 10*3/uL RBC (4.10-5.20) X 10*6/uL Hgb (12.0-15.0) g/dL Hct (37.2-46.3) % RDW (11.5-14.5) % Immature Gran # (0.00-0.04) X 10*3/uL Neutrophils # (1.80-7.70) X 10*3/uL Lymphocytes # (0.90-5.00) X 10*3/uL Monocytes # (0.20-1.00) X 10*3/uL Eosinophils # (0.04-0.35) X 10*3/uL Glucose (74-99) mg/dL POC Glucose (mg/dL) 143 H (75-99) mg/dL Calcium (8.4-10.2) mg/dL Crossmatch Assessment and Plan Assessment: Acute toxic, metabolic encephalopathy,brain CT reported no acute infarcts, chronic stable changes, in a patient with history of CVA, possibly secondary to lack of Sinemet, levels ordered, suspect severe parkinsonism,Neurology following. Acute UTI, enterococcus faecium, in a patient with history of recurrent UTIs, recent acute UTI with Enterobacter aerogenes, complicated with hydronephrosis Bilateral hydronephrosis,no change in the right-sided hydronephrosis. Right ureteral stent insertion 01/06/21, obstruction of UPJ-status post cystoscopy with right stent removed, unable to replace. 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 Hypothyroidism Bipolar disorder Obesity, BMI 36 Normocytic anemia Plan: Continue on current medication regime ,monitoring and symptomatic treatment. Continue antibiotics as per ID. Potential nephrostomy tube per urology.PT/OT. No response to dulcolax suppository/miralax yesterday, soap suds enema and fleets enema ordered.Prognosis guarded given multiple complex medical issues. The impression and plan of care has been dictated as directed. : I performed a history and examination of this patient, discussed the same with the dictator. I agree with the dictator's note ,documented as a scribe. Any additional findings or plans will be noted.
[2021-04-28] MEDS ORDERED: NA PHOS,M-B/NA PHOS,DI-BA 133 ML ENEMA RECTAL ONE (15:10)
[2021-04-28] MEDS: SODIUM CHLORIDE 0.9% 1,000 ML IV SCH (15:30)
[2021-04-28 16:10] LABS: Glucose,Whole Blood 133 mg/dL (75-99)
--- NOTE | 2021-04-28 19:25 | PN ---
PROGRESS NOTE DATE OF SERVICE: 04/28/2021 REASON FOR FOLLOWUP: Complicated urinary tract infection. INTERVAL HISTORY: Patient is afebrile. The patient is breathing comfortably. No vomiting, diarrhea or any other changes reported by the nursing staff. Patient herself did not provide any history. PHYSICAL EXAMINATION: Her blood pressure is 144/76, pulse of 69, temperature 98.3. She is 95% on room air. General description: The patient is an elderly female lying in bed in no distress. Respiratory system: Unlabored breathing, decreased intensity of breath sounds. No wheeze. HEART: S1, S2. Regular rate and rhythm. ABDOMEN: Soft, no tenderness. LABS: Hemoglobin 9.8, white count 13.5. BUN of 15, creatinine 0.74. Repeat culture on urine is negative. DIAGNOSTIC IMPRESSION AND PLAN: Patient with complicated urinary tract infection in this patient who is status post replacement of the right-sided ureteral stent placement. Repeat urine is negative. The patient is on Diflucan. White count has slightly jumped up and continue to monitor closely. We will go ahead and discontinue the vancomycin and monitor clinical course closely. MMODL / IJN: [id number] /
[2021-04-28] MEDS ORDERED: VANCOMYCIN TROUGH DUE 1 EACH MISC MISCELLANE ONE (20:00)
[2021-04-28 21:15] LABS: Glucose,Whole Blood 126 mg/dL (75-99)
[2021-04-28] MEDS: PRAVASTATIN SODIUM 80 MG TAB PO SCH (21:58)
[2021-04-29 07:13] LABS: Glucose,Whole Blood 146 mg/dL (75-99)
[2021-04-29] MEDS: INSULIN ASPART (NovoLOG) 100 UNIT/ML VIAL SQ SCH ×4 (08:20→20:30)
[2021-04-29] MEDS: METOPROLOL TARTRATE 50 MG TAB PO SCH ×2 (08:43→16:33)
[2021-04-29] MEDS: FOLIC ACID 1 MG TAB PO SCH (08:43)
[2021-04-29] MEDS: FLUCONAZOLE 100 MG TAB PO SCH (08:43)
[2021-04-29] MEDS: CARBIDOPA-LEVODOPA 25-100 MG 1 EACH TAB PEG/G-TUBE SCH ×4 (08:44→20:29)
[2021-04-29] MEDS: SENNOSIDES-DOCUSATE SODIUM 1 EACH TAB PO SCH ×2 (08:44→16:33)
[2021-04-29] MEDS: LEVOTHYROXINE 75 MCG TAB PO SCH (08:44)
[2021-04-29] MEDS: NYSTATIN 100,000 UNIT/GM POWD 15 GM TOPICAL SCH ×3 (08:44→20:32)
[2021-04-29] MEDS: polyethylene glycoL 3350 17 GM POWD.PACK PO SCH (08:44)
[2021-04-29] MEDS: MAGNESIUM OXIDE 400 MG TAB PO SCH ×3 (08:44→16:33)
[2021-04-29] MEDS ORDERED: PANTOPRAZOLE 40 MG TABLET PO SCH (09:00)
[2021-04-29 10:50] LABS: African American GFR (CKD) 72.5 (60.0-200.0); Anion Gap 10.1 mmol/L (4.00-12.00); Calcium 8.2 mg/dL (8.7-10.3); Carbon Dioxide 29.9 mmol/L (21.6-31.8); Non-African American GFR(CKD) 62.5 (60.0-200.0); Potassium 3.1 mmol/L (3.5-5.5)
[2021-04-29 11:25] LABS: Glucose,Whole Blood 124 mg/dL (75-99)
[2021-04-29 11:26] LABS: Basophils # (A) 0.03 X 10*3/uL (0.00-0.10); Basophils % (A) 0.2 %; Eosinophils # (A) 0.02 X 10*3/uL (0.04-0.35); Eosinophils % (A) 0.1 %; HGB 9.9 g/dL (12.0-15.0); Lymphocytes % (A) 6.6 %; MCH 27.7 pg (27.0-32.0); MCHC 30.9 g/dL (32.0-37.0); MCV 89.4 fL (80.0-97.0); Monocytes # (A) 1.47 X 10*3/uL (0.20-1.00); Monocytes % (A) 8.8 %; Neutrophils # (A) 13.92 X 10*3/uL (1.80-7.70); Neutrophils % (A) 83.6 %; Platelet Count 176 X 10*3/uL (140-440); RBC 3.58 X 10*6/uL (4.10-5.20); RDW 19.6 % (11.5-14.5); WBC 16.65 X 10*3/uL (4.50-10.00)
[2021-04-29] MEDS: POTASSIUM CHLORIDE ER 20 MEQ TAB.ER PO SCH (13:19)
--- NOTE | 2021-04-29 13:23 | P.PN ---
Subjective Progress Note Date: 04/29/21 This is a 75-year-old female with past medical history of UTI Strep agalactiae - (group b) with Pyelonephritis, severe right hydronephrosis with right ureteral stent insertion to 12/26/20,CVA with residual left-sided weakness, expressive aphasia/TIA, hyperlipidemia, hypertension, chronic renal failure, hypo thyroidism, obesity, anxiety, bipolar, depression, former nicotine dependence presented to the ER via EMS for [facility] with reports that patient had mental status changes, combative over the last few days with an episode of vomiting. Patient's baseline is chronic residual left-sided weakness from prior CVA with expressive aphasia. Patient currently nonverbal, rigid, posturing, attempting to communicate with blinking of right eye. Febrile, T-max 100.3, WBC 13.1 yesterday down to 7.9. Maintained on vancomycin. Hemoglobin 8, platelets 217, glucose 104, potassium 2.8, magnesium 1.4 both being supplemented. Sodium 140, BUN 9, creatinine 0.73. Lactic acid 0.8. UA reporting urine WBCs 21, large leukocytes 1+ ketones. EKG reported normal sinus rhythm, left ventricular hypertrophy, chest x-ray reporting bibasilar atelectasis/subsegmental consolidation. Baca virus not detected. 04/18/[address] reported chronic appearing periventricular white matter ischemic type changes, stable .evaluated by neurology who attributes clinical presentation to suspected severe Parkinsonian from not having Sinemet for a few days. PEG tube placement pending .maintained on IV fluid hydration. Remains encephalopathic,more alert today, minimally conversing, not following commands. EEG/EMG completed, results pending T-max 99.9, normal WBC. Urine culture reporting enterococcus faecium.preliminary blood cultures reporting no growth at 48 hours Continues on vancomycin, creatinine 0.68. Hemoglobin 8.5, platelets 171. Potassium 3.2, magnesium 2.2. 04/21/2021 maintain IV fluid hydration. Lethargic, nausea and vomiting reported after meds administered via PEG-therefore has not received Sinemet yet today. Urology reconsult regarding cystoscopy for hydronephrosis. Impacted, fleets jermaine mas/disimpaction ordered. PICC line ordered for TPN, as patient has been without nutrition for several days prior to admission and has not been able to be started on PEG tube feedings. Afebrile. 04/22/2021 more alert, received Sinemet yesterday and this morning, no nausea vomiting. We'll reattempt tube feeds via PEG tube -if unable to tolerate then we'll proceed with PICC line and TPN. Received one fleets enema with small stool and reported. Potassium 2.8, receiving supplementation, magnesium 1.8. Urine remains cloudy. Evaluated by urology and scheduled for surgery/potential cystoscopy/right ureteral stent removal/8 ureteroscopy/possible replacement of stent on 04/24/2021. 04/23/2021 large bowel movement last night. Reports diffuse abdominal pain. Tolerating tube feeds at 40 MLS per hour/Goal of 55 with minimal to no residuals, no nausea or vomiting. Continues on vancomycin. Scheduled for cystoscopy tomorrow with right ureteral stent exchange. Afebrile. 04/24/2021 Recently returned from cystoscopy, verbal report of stent exchange- multiple attempts. Currently sedated, opens eyes and falls back asleep. 04/25/2021 postop day #1 from cystoscopy. Procedure note reports right ureteral stent removed, multiple attempts made to identify the triple-lumen unable to identify, contrast injected but did not pass into the renal pelvis, multiple attempts made to advance Glidewire-unsuccessful, and procedure was terminated. Bueno catheter with yellow urine with sediment. Patient sleepy but continues to complain of pain, attempting to use communication board. Afebrile, BMP pending. 04/26/2021: Patient is postop day 2 cystoscopy with removal of ureteral stent. There were unable to put another stent in. A urostomy tube is recommended if she continues to have problems per urology. She remains afebrile, blood pressure heart rate and restaurant rate remained stable. Infectious disease, urology and neurology are following. Their notes were reviewed today. Electrolytes are stable. Sugar slightly elevated before breakfast and 156. She large bowel movement last night. She is noted to have elevated TSH at 6.27. She remains on Synthroid of 150 g daily. She remains on vancomycin for her complicated UTI. Diflucan and added. Chillier self this morning is somnolent, but arousable. She can she's tired. She denies any other complaints when specifically asked. She continues to have significant upper extremity edema, most likely from the IV fluids she was on. Her tube feedings are currently at goal at 55 mL per hour. 04/27/2021: Patient status postop day #3 cystoscopy and ureteral stent removal. New stent could not be placed. Urology is following. They're considering a right-sided nephrostomy tube if her right lower quadrant pain is not resolved. Today she complains of right lower quadrant pain. She currently denies any nausea vomiting, chest pains, pressures, shortness of breath. She is nothing by mouth still. She remains afebrile, heart rate restaurant rate and blood pressure remained stable. Pulse oximetry remained stable. Hemoglobin this morning was 7.0. MCV is 86.7. Glucose remained fairly well controlled. She remains on vancomycin and Diflucan for a complicated UTI. Infectious disease is following. 04/28/2021 complains of right lower quadrant pain. Denies nausea. Renal function stable, BUN 15, creatinine 0.74. Afebrile, WBC 13.52. Hemoglobin 9.1, platelets 147. Blood sugars controlled. 04/29/2021 Tube feeds have remained off since Wednesday evening, positive for nausea vomiting last night, none this morning. Abdomen more distended, hypo- active bowel sounds. Diffuse tenderness.Positive bowel movement yesterday. Urology recommended no nephrostomy at this time , following closely with surgery. Surgery updated, recommending PEG tube be placed to gravity with a Bueno-initial flatus, trace dark brown drainage. Potassium 3.1. Afebrile, CBC pending. Objective - Vital Signs Vital signs: Vital Signs Temp 98.3 F 04/29/21 07:50 Pulse 83 04/29/21 07:50 Resp 20 04/29/21 07:50 BP 131/73 04/29/21 07:50 Pulse Ox 90 L 04/29/21 07:50 Intake & Output 04/28/21 04/29/21 04/29/21 18:59 06:59 18:59 Output Total 501 Balance -501 Weight 105 kg 101.5 kg Output: Urine 500 Stool 1 Other: Voiding Method Indwelling Catheter Indwelling Catheter Indwelling Catheter # Bowel Movements 3 - Exam - Exam General: Lying in bed, NAD HEENT: PERRL. EOMI. Neck: Supple, no JVD. Cardiac: Heart regular in rate and rhythm. No S3. No S4. No clicks, rubs. No murmur. Lungs: Clear breath sounds, no rhonchi, bilateral bases diminished. Abdomen: Firm, distended, diffuse tenderness, no guarding, no rigidity .No mass palpable. Hypoactive bowel sounds. PEG tube to gravity ,attached to Bueno peg with trace dark brown drainage. Extremities: Positive edema of all extremities, normal pulses. Skin: Warm and dry, Neurologic: Easily arousable, answering questions-baseline expressive aphasia, chronic residual left-sided weakness. ) ] Microbiology 04/25/21 05:50 Urine,Voided Urine Culture - Final 04/20/21 05:30 Urine,Catheterized Urine Culture - Final Fani albicans 04/15/21 18:10 Blood Blood Culture - Final No Growth after 144 hours 04/15/21 17:15 Blood Blood Culture - Final No Growth after 144 hours 04/15/21 17:15 Urine,Clean Catch Urine Culture - Final Enterococcus faecium - Labs CBC & Chem 7: 04/29/21 05:16 04/29/21 05:16 Labs: Abnormal Lab Results - Last 24 Hours (Table) 04/28/21 04/28/21 04/28/21 Range/Units 06:23 11:20 16:07 WBC 13.52 H (4.50-10.00) X 10*3/uL RBC 3.28 L (4.10-5.20) X 10*6/uL Hgb 9.1 L (12.0-15.0) g/dL Hct 28.0 L (37.2-46.3) % RDW 18.4 H (11.5-14.5) % Immature Gran # 0.16 H (0.00-0.04) X 10*3/uL Neutrophils # 11.38 H (1.80-7.70) X 10*3/uL Lymphocytes # 0.75 L (0.90-5.00) X 10*3/uL Monocytes # 1.19 H (0.20-1.00) X 10*3/uL Eosinophils # 0.03 L (0.04-0.35) X 10*3/uL Potassium (3.5-5.5) mmol/L Glucose (70-110) mg/dL POC Glucose (mg/dL) 143 H 133 H (75-99) mg/dL Calcium (8.7-10.3) mg/dL 04/28/21 04/29/21 04/29/21 Range/Units 21:12 05:16 07:08 WBC (4.50-10.00) X 10*3/uL RBC (4.10-5.20) X 10*6/uL Hgb (12.0-15.0) g/dL Hct (37.2-46.3) % RDW (11.5-14.5) % Immature Gran # (0.00-0.04) X 10*3/uL Neutrophils # (1.80-7.70) X 10*3/uL Lymphocytes # (0.90-5.00) X 10*3/uL Monocytes # (0.20-1.00) X 10*3/uL Eosinophils # (0.04-0.35) X 10*3/uL Potassium 3.1 L (3.5-5.5) mmol/L Glucose 125 H (70-110) mg/dL POC Glucose (mg/dL) 126 H 146 H (75-99) mg/dL Calcium 8.2 L (8.7-10.3) mg/dL Assessment and Plan Assessment: Acute toxic, metabolic encephalopathy,brain CT reported no acute infarcts, chronic stable changes, in a patient with history of CVA, possibly secondary to lack of Sinemet, levels ordered, suspect severe parkinsonism,Neurology following. Acute UTI, enterococcus faecium, in a patient with history of recurrent UTIs, recent acute UTI with Enterobacter aerogenes, complicated with hydronephrosis Bilateral hydronephrosis,no change in the right-sided hydronephrosis. Right ureteral stent insertion 01/06/21, obstruction of UPJ-status post cystoscopy with right stent removed, unable to replace. 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 Hypothyroidism Bipolar disorder Obesity, BMI 36 Normocytic anemia Plan: Continue on current medication regime ,monitoring and symptomatic treatment. CBC pending.Continue antibiotics as per ID. potential nephrostomy on hold currently as per urology.PEG tube recently connected to Bueno bag as per surgery with further recommendations pending .abdominal series .PICC line and TPN ordered .Prognosis guarded given multiple complex medical issues. The impression and plan of care has been dictated as directed. : I performed a history and examination of this patient, discussed the same with the dictator. I agree with the dictator's note ,documented as a scribe. Any additional findings or plans will be noted.
--- NOTE | 2021-04-29 14:51 | XR ---
EXAMINATION TYPE: XR abdomen complete w decub DATE OF EXAM: 04/29/2021 COMPARISON: 04/29/2021 HISTORY: Pain TECHNIQUE: One view submitted FINDINGS: Lateral lower lobe infiltrate and small effusion. Dilated bowel loops. Surgical clips right upper quadrant. Calcifications the pelvis likely vascular. Arthropathy of the hips. IMPRESSION: 1. Dilated bowel loops correlate for obstruction. 2. Bilateral lower lobe infiltrate and small effusion.
--- NOTE | 2021-04-29 14:54 | XR ---
EXAMINATION TYPE: Abdominal KUB. DATE OF EXAM: 04/29/2021 COMPARISON: 04/29/2021 HISTORY: PEG tube check TECHNIQUE: One view abdominal series FINDINGS: There is contrast within the stomach although I could not exclude a degree of extravasation. Consider CT scan follow-up. There appears to be markedly dilated bowel loops with a large circular area of ai r collection in the midabdomen IMPRESSION: 1. Correlate for high-grade bowel obstruction. Contrast is seen within the stomach. There is is vague density seen left upper quadrant would recommend CAT scan to exclude extravasation.
[2021-04-29 15:10] LABS: INR 1.1 (<1.2); Prothrombin Time 11.6 sec (9.0-12.0)
[2021-04-29 16:00] LABS: Albumin 2.3 g/dL (3.5-5.0); Phosphorus 2.9 mg/dL (2.5-4.5)
--- NOTE | 2021-04-29 16:17 | P.PN ---
Progress Note - Text Progress Note Date: 04/29/21 bowel distention worse compared to yesterday, on exam abdomen is distended, but soft. Tenderness in the upper quadrant, no flank tenderness appreciated. White count continues to trend up. catheter in place draining cloudy urine. abdominal exam is worse compared to yesterday, she continues to have nausea with vomiting, recommend to reconsult general surgery to evaluate for possible ileus versus a bowel obstruction. Given the degree of abdominal distention hydronephrosis highly unlikely to be contributing to her nausea and vomiting. Recommend to hold off on the nephrostomy tube at this time, given the worsening distention, I don't anticipate she'll have an improvement in her nausea and vomiting with nephrostomy tube placement. We'll continue to follow, we'll reassess tomorrow
[2021-04-29] MEDS: SODIUM CHLORIDE 0.9% 1,000 ML IV SCH (16:32)
[2021-04-29 16:45] LABS: Glucose,Whole Blood 122 mg/dL (75-99)
[2021-04-29] MEDS ORDERED: MVI, ADULT NO.4 WITH VIT K 10 ML, TRACE (CONC-1ML/DOSE) 1 ML in AMINO ACID 5%-D15W+LYTE... IV SCH ×3 (19:15)
--- NOTE | 2021-04-29 20:11 | PN ---
PROGRESS NOTE DATE OF SERVICE: 04/29/2021 REASON FOR FOLLOWUP: Complicated urinary tract infection. INTERVAL HISTORY: Patient is afebrile. The patient remains to be verbal but is unable to provide any history. No vomiting, diarrhea or any other changes reported by the nursing staff. PHYSICAL EXAMINATION: Blood pressure 100/64, pulse of 90, temperature 98.2. She is 98% on room air. General description: The patient is an elderly female lying in bed in no distress. Respiratory system: Unlabored breathing, decreased breath sounds at bases. No wheeze. HEART: S1, S2. Regular rate and rhythm. ABDOMEN: Soft, mildly distended. No guarding. No rigidity. LABS: Hemoglobin is 9.1, white count 16.7. BUN of 18, creatinine 0.9. The patient did have an x-ray suggestive of high-grade obstruction with contrast seen in the stoma. DIAGNOSTIC IMPRESSION AND PLAN: Patient with a complicated urinary tract infection in this patient status post ureteral stent placed. Initial culture positive for Enterococcus was Fani albicans. Subsequent culture has been negative. Now with worsening of the white count despite being on Diflucan and evidence of worsening ileus and high-grade obstruction, we will add Zosyn to cover for the intraabdominal pathogen in view of the worsening white count and monitor clinical course closely. MMODL / IJN: [id number] /
[2021-04-29 20:18] LABS: Glucose,Whole Blood 145 mg/dL (75-99)
[2021-04-29] MEDS: PRAVASTATIN SODIUM 80 MG TAB PO SCH (20:30)
--- NOTE | 2021-04-29 21:05 | P.PN ---
Subjective Progress Note Date: 04/29/21 Patient was distended today, reported by nursing to have some nausea and vomiting. Objective - Vital Signs Vital signs: Vital Signs Temp 98.8 F 04/29/21 19:42 Pulse 90 04/29/21 20:00 Resp 18 04/29/21 20:00 BP 131/76 04/29/21 19:42 Pulse Ox 90 L 04/29/21 19:42 Intake & Output 04/29/21 04/29/21 04/30/21 06:59 18:59 06:59 Output Total 501 1 Balance -501 -1 Weight 101.5 kg 101.5 kg Output: Urine 500 Stool 1 1 Other: Voiding Method Indwelling Catheter Indwelling Catheter Indwelling Catheter # Bowel Movements 3 - Constitutional General appearance: Present: cooperative - Gastrointestinal Gastrointestinal Comment(s): Distended, soft - Psychiatric Psychiatric Comment(s): nonverbal but responsive - Labs CBC & Chem 7: 04/29/21 05:16 04/29/21 13:47 Labs: Abnormal Lab Results - Last 24 Hours (Table) 04/28/21 04/29/21 04/29/21 Range/Units 21:12 05:16 05:16 WBC 16.65 H (4.50-10.00) X 10*3/uL RBC 3.58 L (4.10-5.20) X 10*6/uL Hgb 9.9 L (12.0-15.0) g/dL Hct 32.0 L (37.2-46.3) % MCHC 30.9 L (32.0-37.0) g/dL RDW 19.6 H (11.5-14.5) % Immature Gran # 0.11 H (0.00-0.04) X 10*3/uL Neutrophils # 13.92 H (1.80-7.70) X 10*3/uL Monocytes # 1.47 H (0.20-1.00) X 10*3/uL Eosinophils # 0.02 L (0.04-0.35) X 10*3/uL Potassium 3.1 L (3.5-5.5) mmol/L Glucose 125 H (70-110) mg/dL POC Glucose (mg/dL) 126 H (75-99) mg/dL Calcium 8.2 L (8.7-10.3) mg/dL Albumin (3.5-5.0) g/dL 04/29/21 04/29/21 04/29/21 Range/Units 07:08 11:22 13:47 WBC (4.50-10.00) X 10*3/uL RBC (4.10-5.20) X 10*6/uL Hgb (12.0-15.0) g/dL Hct (37.2-46.3) % MCHC (32.0-37.0) g/dL RDW (11.5-14.5) % Immature Gran # (0.00-0.04) X 10*3/uL Neutrophils # (1.80-7.70) X 10*3/uL Monocytes # (0.20-1.00) X 10*3/uL Eosinophils # (0.04-0.35) X 10*3/uL Potassium 3.2 L (3.5-5.5) mmol/L Glucose (70-110) mg/dL POC Glucose (mg/dL) 146 H 124 H (75-99) mg/dL Calcium (8.7-10.3) mg/dL Albumin (3.5-5.0) g/dL 04/29/21 04/29/21 04/29/21 Range/Units 13:47 16:37 20:17 WBC (4.50-10.00) X 10*3/uL RBC (4.10-5.20) X 10*6/uL Hgb (12.0-15.0) g/dL Hct (37.2-46.3) % MCHC (32.0-37.0) g/dL RDW (11.5-14.5) % Immature Gran # (0.00-0.04) X 10*3/uL Neutrophils # (1.80-7.70) X 10*3/uL Monocytes # (0.20-1.00) X 10*3/uL Eosinophils # (0.04-0.35) X 10*3/uL Potassium (3.5-5.5) mmol/L Glucose (70-110) mg/dL POC Glucose (mg/dL) 122 H 145 H (75-99) mg/dL Calcium (8.7-10.3) mg/dL Albumin 2.3 L (3.5-5.0) g/dL Assessment and Plan Assessment: Abdominal distention, ileus Plan: ill plan for acute abdominal series and contrast study of PEG. Further recs to follow
--- NOTE | 2021-04-29 23:08 | CT ---
EXAMINATION TYPE: CT abdomen pelvis w con DATE OF EXAM: 04/29/2021 COMPARISON: 04/15/2021 HISTORY: abdominal pain and distention CT DLP: 1839.2 mGycm Automated exposure control for dose reduction was used. CONTRAST: Performed with IV Contrast, patient injected with 100 mL of Isovue 300. Images obtained from the diaphragm to the floor the pelvis with IV contrast. There are bilateral pleural effusions. There is infiltrate and atelectasis at both lung bases. There is high attenuation around the right lobe of the liver measuring up to 1 cm in thickness. There is large amount of high attenuation material around the spleen. This could be contrast extravasation . There are clips from cholecystectomy. The stomach is large with gas and fluid. There is small hiata l hernia. There is no pancreatic mass. There is small pneumoperitoneum. There is gastrostomy tube in the upper abdomen which does not appear to be in the stomach. There is Bueno catheter in the urinary bladder which is almost empty. There is contrast in the bladder. There is dilated rectum with fecal material. Rectum measures 10.5 cm. There is subcutaneous edema around the abdomen. There are multiple dilated small bowel loops with fluid levels. The sigmoid colon is dilated with gas and fecal material. The lumbar vertebra have normal alignment. There is no compression fracture. Posterior elements are i ntact. The bony pelvis is intact. The hip joints are intact. Abdominal aorta is atheromatous. IMPRESSION: High attenuation material could be contrast from gastrostomy tube injection. The contrast is in the p eritoneal cavity around the spleen and liver in the upper abdomen. There is small pneumoperitoneum. G astrostomy tube does not appear to be in the stomach. There is multiple left-sided renal parapelvic cysts. There is moderately severe hydronephrosis on the right side with also an apparent large parapelvic cyst. There is rectal fecal impaction with dilated large bowel and dilated small bowel suggestive of mechan ical bowel obstruction. The bowel obstruction appears new compared to old exam. Fecal impaction simil ar to old exam. Bilateral pleural effusions and basilar infiltrates and atelectasis. This appears worse than last exa m. Moderate bilateral hydronephrosis moderate right-sided hydronephrosis.. There is removal of the right -sided ureteral stent compared to old exam. There are left-sided renal parapelvic cysts.
[2021-04-30] MEDS ORDERED: ROCURONIUM 10 MG/ML (5 ML VIAL) IV ONE (00:36)
[2021-04-30] MEDS ORDERED: POTASSIUM CHLORIDE 2 MEQ/ML 20 ML VIAL ONE (00:36)
[2021-04-30] MEDS ORDERED: PROPOFOL 10 MG/ML 20 ML VIAL IV ONE (00:36)
[2021-04-30] MEDS ORDERED: HEPARIN SODIUM,PORCINE 5,000 UNIT/ML 1 ML VIAL ONE (00:36)
[2021-04-30] MEDS ORDERED: fentaNYL (PF) 50 MCG/ML 2 ML AMP ONE (00:36)
[2021-04-30] MEDS ORDERED: PHENYLEPHRINE-0.9% NACL SYG 1,000 MCG/10 ML SYRINGE ONE (00:36)
[2021-04-30] MEDS ORDERED: LIDOCAINE 1% INJ 10MG/ML (20 ML MDV) ONE (00:36)
[2021-04-30] MEDS ORDERED: SODIUM CHLORIDE 0.9% 1,000 ML BAG ONE (00:36)
--- NOTE | 2021-04-30 00:47 | P.PN ---
Progress Note - Text Progress Note Date: 04/30/21 After imaging studies were performed today was revealed that the PEG tube been dislodged from the stomach with a small amount of free air and extravasation of contrast from the tube. Also there is a large stool ball and markedly distended possibly volvulized sigmoid colon. I discussed what were laparotomy possible repair of gastrotomy possible placement of jejunostomy tube possible colon resection with colostomy and all other indicated procedures with the . He stated he understood and consented. Patient be kept nothing by mouth and on IV antibiotics. Further recommendations to follow surgery
[2021-04-30] MEDS ORDERED: LACTATED RINGERS 1,000 ML BAG IV ONE ×2 (01:00→02:27)
--- NOTE | 2021-04-30 03:04 | P.OP ---
Date of Procedure: 04/30/21 Preoperative Diagnosis: Dislodged PEG tube with extravasation of contrast and free air Sigmoid volvulus Fecal impaction Postoperative Diagnosis: Dislodged PEG tube with gastrotomy Sigmoid volvulus with ischemic appearing colon Fecal impaction Procedure(s) Performed: Exploratory laparotomy sigmoid colectomy and creation of end colostomy and repair of gastrotomy along with placement of jejunal feeding tube Anesthesia: ROYCE Surgeon: Santiago Dempsey Estimated Blood Loss (ml): 50 Urine output (ml): 50 Condition: critical Disposition: ICU Indications for Procedure: Patient previously had PEG tube placed 10 days ago she began becoming distended with nausea and vomiting on the floor imaging revealed that the PEG tube had been displaced there is extravasation of contrast there was also fecal impaction with concerns for sigmoid volvulus. Description of Procedure: Patient wasBrought into the operative suite remained in the supine position underwent general endotracheal anesthesia per Department of anesthesia timeout performed correct patient correct seizure correct site was verified at this time prior to prepping and draping fecal disimpaction was performed manually a large amount of soft stool was removed from the patient's rectum. Patient was then prepped and draped in the usual sterile fashion. Midline incision was made carried down to the fascia the abdomen was opened in the usual fashion there was markedly distended sigmoid colon immediately noted and repaired the skin ischemic. There was multiple adhesions in the sigmoid colon going down to the rectum was noted to be twisted upon itself consistent with volvulus. This was freed up along the white line of Toldt and the adhesions were taken down sharply being sure to preserve healthy bowel. Using a 60 mm ESHA stapler blue load the proximal section of healthy descending colon was selected and stapled across. LigaSure device was used to take down the mesentery to the rectosigmoid junction where healthy segment of colon was stapled across yet again with a 60 mm ESHA stapler. The specimen was passed off. Attention was turned to the stomach where there was a small gastrotomy noted from the previous PEG tube site where the PEG tube had been dislodged. The PEG tube was removed from the abdominal wall and the gastrotomy was closed with 3-0 silk sutures in a Lembert fashion using the tails of the sutures a tongue of omentum was sutured in place over top of the gastrotomy. At this time patient is dependent on tube feeds and will need some form of access. Decision was made to place a jejunostomy tube. Approximate 40 cm from the ligament of Treitz a jejunostomy tube 18-Bhutanese was placed and sutured in place with 30 Vicryls and a Witzel tunnel. The balloon was inflated to 7 mL. And then this was sutured to the anterior abdominal wall. The abdomen was copiously irrigated and suctioned a 4 cm circular incision was made in the skin in the left lower quadrant and carried down to the fascia which was incised in the 3 fingers breadths were noted in the descending colon was brought up through this for the colostomy. The midline incision was closed with looped PDS sutures and the ostomy was matured with 30 Vicryls and a brooking stitch followed by simple interrupteds. The J-tube was sutured in place with 2- 0 nylon to the skin. Sterile dressings were applied all sponge and needle counts were correct patient will go to the ICU in critical condition.
[2021-04-30] MEDS ORDERED: propofoL 100 ML IV ONE (03:12)
[2021-04-30 03:24] LABS: Glucose,Whole Blood 154 mg/dL (75-99)
[2021-04-30 04:03] LABS: ABG Base Excess 7.1 mmol/L; ABG HCO3 31 mmol/L (21-25); ABG Oxygen Saturation 99.4 % (94-97); ABG PCO2 42 mmHg (35-45); ABG PH 7.47 (7.35-7.45); ABG PO2 219 mmHg (83-108); ABG TCO2 32 mmol/L (19-24); Allen Test Performed? Yes
[2021-04-30 04:17] LABS: ALT <6 U/L (4-34); AST 13 U/L (14-36); African American GFR (CKD) 55 (>60 ml/min/1.73 sqM); Albumin 2.2 g/dL (3.5-5.0); Alkaline Phosphatase 87 U/L (38-126); Anion Gap 6 mmol/L; Blood Urea Nitrogen 24 mg/dL (7-17); Calcium 8.3 mg/dL (8.4-10.2); Carbon Dioxide 30 mmol/L (22-30); Chloride 101 mmol/L (98-107); Glucose 155 mg/dL (74-99); Magnesium 2.1 mg/dL (1.6-2.3); Non-African American GFR(CKD) 47 (>60 ml/min/1.73 sqM); Potassium 3.4 mmol/L (3.5-5.1); Sodium 137 mmol/L (137-145); Total Bilirubin 0.8 mg/dL (0.2-1.3); Total Protein 4.6 g/dL (6.3-8.2)
[2021-04-30] MEDS ORDERED: Potassium Replacement Protocol 1 EACH MISC MISCELLANE PRN (04:28)
[2021-04-30 04:29] LABS: Anisocytosis Slight; Basophils % (A) 0 %; Eosinophils % (A) 0 %; HCT 35.2 % (34.0-46.0); Hypochromasia Moderate; Lymphocytes # (A) 0.7 k/uL (1.0-4.8); Lymphocytes % (A) 8 %; MCH 26.8 pg (25.0-35.0); MCHC 30.6 g/dL (31.0-37.0); MCV 87.7 fL (80.0-100.0); Mean Platelet Volume 9.2; Monocytes # (A) 0.4 k/uL (0-1.0); Monocytes % (A) 5 %; Neutrophils # (A) 7.1 k/uL (1.3-7.7); Neutrophils % (A) 86 %; Platelet Count 216 k/uL (150-450); Poikilocytosis Slight; RBC 4.02 m/uL (3.80-5.40); RDW 19.6 % (11.5-15.5); WBC 8.2 k/uL (3.8-10.6)
[2021-04-30 04:36] LABS: HGB 10.8 gm/dL (11.4-16.0)
[2021-04-30 04:42] LABS: INR 1.2 (<1.2); Prothrombin Time 12.4 sec (9.0-12.0)
[2021-04-30] MEDS: POTASSIUM CHLORIDE 10 MEQ in WATER FOR INJECTION 1 100ML.BAG IVPB SCH ×4 (05:07→10:26)
[2021-04-30 05:20] LABS: Glucose,Whole Blood 154 mg/dL (75-99)
[2021-04-30] MEDS: INSULIN ASPART (NovoLOG) 100 UNIT/ML VIAL SQ SCH ×3 (05:24→18:34)
[2021-04-30] MEDS: polyethylene glycoL 3350 17 GM POWD.PACK PO SCH (08:32)
[2021-04-30] MEDS: LEVOTHYROXINE 75 MCG TAB PO SCH (08:32)
[2021-04-30] MEDS: METOPROLOL TARTRATE 50 MG TAB PO SCH (08:32)
[2021-04-30] MEDS: CARBIDOPA-LEVODOPA 25-100 MG 1 EACH TAB PEG/G-TUBE SCH ×2 (08:32→08:33)
[2021-04-30] MEDS: SENNOSIDES-DOCUSATE SODIUM 1 EACH TAB PO SCH (08:32)
[2021-04-30] MEDS: MAGNESIUM OXIDE 400 MG TAB PO SCH (08:32)
[2021-04-30] MEDS: FOLIC ACID 1 MG TAB PO SCH (08:32)
[2021-04-30] MEDS: FLUCONAZOLE 100 MG TAB PO SCH (08:33)
[2021-04-30] MEDS: PANTOPRAZOLE 40 MG/10 ML VIAL IV SCH (08:36)
[2021-04-30] MEDS: PIPERACILLIN-TAZOBACTAM 3.375 GM in SODIUM CHLORIDE 0.9% 100 ML IVPB SCH ×4 (08:36→16:29)
[2021-04-30] MEDS: CHLORHEXIDINE GLUCONATE 15 ML CUP MUCOUS MEM SCH ×2 (08:36→21:47)
[2021-04-30] MEDS: NYSTATIN 100,000 UNIT/GM POWD 15 GM TOPICAL SCH ×3 (08:37→21:47)
--- NOTE | 2021-04-30 08:47 | XR ---
EXAMINATION TYPE: XR chest 1V DATE OF EXAM: 04/30/2021 COMPARISON: Prior chest x-ray 04/16/2021 CT 04/29/2021 HISTORY: Pleural effusion, intubated TECHNIQUE: Single frontal view of the chest is obtained. FINDINGS: Endotracheal tube and NG tube are overlying appropriate positions. There is no evident pne umothorax, and there is minimal effusion, lung volumes are low. Heart is enlarged, cardiac mediastina l silhouette is stable. Aorta is dense. There are overlying artifacts. Interstitium is mildly increas ed. Patchy bibasilar density noted within the lungs. Surgical clips present in the right upper quadra nt. IMPRESSION: Cardiomegaly, basilar atelectasis, small right pleural effusion.
[2021-04-30] MEDS ORDERED: FAT EMULSION 20% 250 ML in EMPTY BAG 1 BAG IV SCH (09:00)
[2021-04-30] MEDS ORDERED: LACTATED RINGERS 2,000 ML IV SCH (09:30)
--- NOTE | 2021-04-30 09:37 | P.CNPUL ---
History of Present Illness Consult date: 04/30/21 Requesting physician: Gume Santiago Jr Reason for consult: other Chief complaint: Postoperative ventilator management, status post sigmoid colectomy History of present illness: This is a 75-year-old white female patient a resident of a local [facility], who was initially admitted to the hospital on 04/15/2021 when she was brought to the hospital per EMS with altered mentation, and vomiting. Patient was receiving Rocephin for a urinary tract infection at the [facility], [place] and patient is known to have a history of multiple recurrent urinary tract infections and history of right ureteral stent placement. Patient at baseline is a poor historian, related to previous history of CVA and patient has left- sided weakness and expressive aphasia. Other medical history significant for hyperlipidemia, hypertension, hypothyroidism, Parkinson's disease, anxiety, depression, degenerative arthritis. Most recent urine culture from February and March 2021 showed evidence of enterococcus with multiple resistances and she was placed on vancomycin in the emergency department. CT of the abdomen and pelvis on admission showed marked right hydronephrosis, and a small left hydronephrosis similar findings on the CT of the abdomen and pelvis from 03/18/2021. Urology is following and was planning on insertion of a nephrostomy. Neurological workup showed a brain CT with chronic appearing periventricular white matter of ischemic type, which was stable. EEG showed an abnormal EEG due to the background slowing of mild to moderate degree suggestive of generalized cerebral dysfunction as seen with toxic metabolic encephalopathy and diffuse structural brain abnormality. No evidence of epileptiform activity was seen. Neurology's impression was that the altered mental status was likely due to toxic metabolic encephalopathy. Patient continued to be nauseous and vomiting and was unable to take any oral medications or oral feedings. On 04/19/2021 patient underwent EGD and PEG tube placement by Dr. Dempsey. The EGD showed no abnormalities within the stomach and duodenum. However the patient continued to have intermittent nausea and vomiting, and tube feedings were on hold and the PEG tube was connected to dependent drainage. On 04/24/2021 patient underwent cystoscopy, right retrograde pyelogram and right ureteroscopy, right ureteral stent was removed, however attempts to replace it were unsuccessful, and nephrostomy tube insertion was planned. On 04/29/2021 patient developed worsening tenderness and distention of the abdomen, she continued to have nausea with vomiting, and her leukocytosis was worsening. CT of the abdomen and pelvis on 04/29/2021 showed extravasation of the contrast from the PEG tube, with a concern of dislodged PEG tube from the stomach with a small amount of air in the peritoneum. Also there was a large stool ball and markedly distended possibly volvulized sigmoid colon. Right nephrostomy procedure was placed on hold, and patient was taken to the operating room and underwent exploratory laparotomy which was converted to open procedure, sigmoid colectomy, and creation of end colostomy and repair of gastrostomy along with placement of jejunal feeding tube. Patient was admitted to the intensive care unit following her procedure earlier this morning at around 3:00 this morning intubated and on mechanical ventilator support. This morning she is on assist-control mode of ventilation with a rate of 14, tidal vital 300, FiO2 of 60% and PEEP of 5, this morning's blood gas showed a pO2 of 219, pCO2 42, pH of 7.47, this was done on 100% FiO2 and this was subsequently dropped to 60%. She is on lactated Ringer's at 50 ML per hour, Diprivan and is at 30 ML per hour, hemodynamically she is stable, not requiring any vasopressor support, she is in sinus mechanism, blood pressure is 100/55. Her chest x-ray today has been reviewed and not showing ET tube and OG tube in appropriate positions, no pneumothorax, the basilar atelectasis, low lung volumes. Breasts the blood work reveals white count of 8.2, hemoglobin is 10.8, platelet count is 216, INR is 1.2, sodium is 137, potassium is 3.4, chloride is 101, CO2 is 30, BUN is 24, creatinine is 1.14. Patient's urine output has been quite poor, and she has only produced 35 mL of urine overnight. Current antibiotic coverage includes Diflucan and Zosyn for evidence of enterococcus faecium in the urine, and Fani albicans in the urine culture on urine culture from 04/20/2021. ID service is following. Review of Systems All systems: negative Constitutional: Reports fatigue, Reports lethargy, Reports malaise, Reports weakness, Denies chills, Denies fever Eyes: denies blurred vision, denies pain Ears, nose, mouth and throat: Denies headache, Denies sore throat Cardiovascular: Denies chest pain, Denies shortness of breath Respiratory: Denies cough Gastrointestinal: Reports abdominal pain, Reports nausea, Reports vomiting, Denies diarrhea Genitourinary: Denies dysuria, Denies hematuria Musculoskeletal: Denies myalgias Integumentary: Denies pruritus, Denies rash Neurological: Denies numbness, Denies weakness Psychiatric: Denies anxiety, Denies depression Endocrine: Denies fatigue, Denies weight change Past Medical History Past Medical History: Heart Failure, CVA/TIA, GERD/Reflux, Hyperlipidemia, Hypertension, Musculoskeletal Disorder, Neurologic Disorder, Renal Disease, Thyroid Disorder Additional Past Medical History / Comment(s): Pt recently admitted to [facility] on 03/10/21 with abdominal pain, N/V, EGD showed gastritis, possible ileus, UTI, acute pyelonephritis. Other hx: CVAs/expressive aphasia and L sided weakness, TIAs, Parkinsons disease, CKD stage III, bilateral hydronephrosis with R side worse, recurrent UTIs, chronic anemia, covid + 01/2021, incontinence urine/stool, hypothyroid. History of Any Multi-Drug Resistant Organisms: None Reported Past Surgical History: Appendectomy, Cholecystectomy, Hernia Repair, Hysterectomy, Orthopedic Surgery Additional Past Surgical History / Comment(s): 12/26/20 cysto with R ureteral stent, hysterectomy with bilateral oophorectomy, abdominal hernia repair, EGD, colonoscopy, hammer toe surgery Past Anesthesia/Blood Transfusion Reactions: No Reported Reaction Smoking Status: Former smoker - Past Family History Father History Unknown: Yes Family Medical History: No Reported History Mother Family Medical History: Hypertension Additional Family Medical History / Comment(s): Mother lived to be about 85 yrs old. Medications and Allergies Home Medications Medication Instructions Recorded Confirmed Type Escitalopram Oxalate [Lexapro] 10 mg PO DAILY@0800 09/07/14 04/15/21 History Omeprazole [PriLOSEC] 20 mg PO BID@0800,1700 09/07/14 04/15/21 History Pravastatin Sodium [Pravachol] 80 mg PO HS 09/07/14 04/15/21 History Ergocalciferol (Vitamin D2) 1,250 mcg PO Q14D@1200 05/19/04/15/21 History [Drisdol (50,000 Iu)] Levothyroxine Sodium [Synthroid] 150 mcg PO DAILY@0800 05/19/19 04/15/21 History Pramipexole [Mirapex] 1 mg PO HS 05/19/19 04/15/21 History calcitrioL [Rocaltrol] 0.25 mcg PO SUMOTUWETHFR@1200 05/19/19 04/15/21 History Carbidopa-Levodopa 25-100 mg 1 tab PO TID@0800,1200,2100 12/24/20 04/15/21 History [Sinemet 25-100 mg] Carbidopa-Levodopa 25-100 mg 2 tab PO AC-SUPPER@1700 12/24/20 04/15/21 History [Sinemet 25-100 mg] Metoprolol Tartrate [Lopressor] 50 mg PO BID@0800,1700 12/24/20 04/15/21 History Potassium Chloride ER [K-Dur 20] 20 meq PO DAILY@1200 12/24/20 04/15/21 History polyethylene glycoL 3350 [Miralax] 17 gm PO DAILY PRN #0 powd.pack 01/01/21 04/15/21 Rx Sennosides-Docusate Sodium 1 tab PO BID@0800,1700 01/24/21 04/15/21 History [Senokot-S] Ascorbic Acid [Vitamin C] 1,000 mg PO DAILY@1200 03/10/21 04/15/21 History Magnesium Oxide [Mag-Ox] 400 mg PO TID@0800,1200,1700 03/10/21 04/15/21 History Melatonin 5 mg PO HS tablet 03/18/21 04/15/21 Rx Acetaminophen Tab [Tylenol] 650 mg PO Q6HR PRN 04/15/21 04/15/21 History Diclofenac Sodium [Voltaren Gel] 1 applic TOPICAL QID@,,,04/15/21 04/15/21 History Dicyclomine [Bentyl] 10 mg PO QID@08,,,04/15/21 04/15/21 History Ensure Clear 120 ml PO BID@0800,1700 04/15/21 04/15/21 History Lactose-Reduced Food [Ensure Plus] 120 ml PO DAILY@1200 04/15/21 04/15/21 History Magnesium Hydroxide [Milk of 7,200 mg PO Q48H PRN 04/15/21 04/15/21 History Magnesia Concentrate] Na Phos,M-B/Na Phos,Di-Ba [Fleet 133 ml RECTAL DAILY PRN 04/15/21 04/15/21 History Adult] Nystatin 100,000 Unit/gm Powd 1 applic TOPICAL TID 04/15/21 04/15/21 History [Mycostatin Powder] Ondansetron HCl [Zofran] 4 mg PO DAILY@0600 04/15/21 04/15/21 History Ondansetron Odt [Zofran Odt] 4 mg PO Q8H PRN 04/15/21 04/15/21 History Promethazine Hcl 25mg/Ml 25 mg IM Q6H PRN 04/15/21 04/15/21 History Salonpas Lidocaine Patch 1 patch TRANSDERM DAILY PRN 04/15/21 04/15/21 History bisacodyL [Bisacodyl] 10 mg RECTAL DAILY PRN 04/15/21 04/15/21 History dronabinoL [Marinol] 2.5 mg PO TID@0800,1200,1700 04/15/21 04/15/21 History Allergies Allergy/AdvReac Type Severity Reaction Status Date / Time amiodarone [From Cordarone] Allergy Anaphylaxis Verified 04/24/21 06:48 cyclobenzaprine Allergy Rash/Hives Verified 04/24/21 06:48 [From Flexeril] prochlorperazine Allergy Rash/Hives Verified 04/24/21 06:48 metoclopramide AdvReac Severe Unknown Verified 04/24/21 06:48 Physical Exam Vitals: Vital Signs Temp Pulse Pulse Resp BP BP Pulse Ox 04/30/21 07:00 84 24 91/56 98 04/30/21 06:00 80 25 H 100/50 97 04/30/21 05:00 89 22 100/53 100 04/30/21 04:00 90 19 136/68 99 04/30/21 03:19 98.4 F 87 14 128/72 99 04/29/21 21:42 93 L 04/29/21 20:00 90 18 04/29/21 19:42 98.8 F 90 18 131/76 90 L 04/29/21 14:00 99.2 F 90 16 100/64 90 L Intake and Output 04/29/21 04/30/21 04/30/21 22:59 06:59 14:59 Intake Total 550 Output Total 1 85 Balance -1 465 Intake: IV 550 0.9 250 Piperacillin-Tazobactam 3 100 .375 gm In Sodium Chloride 0.9% 100 ml @ 25 mls/hr IVPB Q8HR BALDOMERO Rx# :[id number] Potassium Chloride 10 meq 200 In Water For Injection 1 100ml.bag @ 100 mls/hr IVPB Q1HR BALDOMERO Rx#: [id number] Output: Urine 85 Stool 1 Other: Voiding Method Indwelling Catheter GENERAL EXAM: Sedated, intubated, on assist-control mode of ventilation, with FiO2 50%, and PEEP of 5 comfortable in no apparent distress. HEAD: Normocephalic/atraumatic. EYES: Normal reaction of pupils, equal size. Conjunctiva pink, sclera white. NOSE: Clear with pink turbinates. THROAT: No erythema or exudates. NECK: No masses, no JVD, no thyroid enlargement, no adenopathy. CHEST: No chest wall deformity. Symmetrical expansion. LUNGS: Equal air entry with no crackles, wheeze, rhonchi or dullness. CVS: Regular rate and rhythm, normal S1 and S2, no gallops, no murmurs, no rubs ABDOMEN: Soft, nontender. No hepatosplenomegaly, normal bowel sounds, no guarding or rigidity. Mid abdominal incision clean dry and intact, covered with surgical dressing, epigastric jejunostomy tube in place, insertion site clean dry intact, left upper quadrant colostomy, no gas or stool present at the time EXTREMITIES: No clubbing, no edema, no cyanosis, 2+ pulses and upper and lower extremities. MUSCULOSKELETAL: Muscle strength and tone normal. SPINE: No scoliosis or deformity SKIN: No rashes CENTRAL NERVOUS SYSTEM: Sedated, intubated No focal deficits, tone is normal in all 4 extremities. Results - Laboratory Findings CBC and BMP: 04/30/21 03:44 04/30/21 03:40 ABG ABG pH 7.47 (7.35-7.45) H 04/30/21 04:00 ABG pCO2 42 mmHg (35-45) 04/30/21 04:00 ABG pO2 219 mmHg (83-108) H 04/30/21 04:00 ABG O2 Saturation 99.4 % (94-97) H 04/30/21 04:00 PT/INR, D-dimer PT 12.4 sec (9.0-12.0) H 04/30/21 03:44 INR 1.2 (<1.2) H 04/30/21 03:44 Abnormal lab findings: Abnormal Labs 04/15/21 04/15/21 04/15/21 17:15 17:15 17:15 WBC RBC 3.20 L Hgb 8.8 L Hct 27.4 L MCH MCHC RDW 17.6 H Absolute Nucleated RBC Myelocytes % Immature Gran # Neutrophils # Neutrophils # (Manual) Lymphocytes # Monocytes # Eosinophils # NRBC/100 WBC Diff PT 12.3 H INR 1.2 H APTT ABG pH ABG pO2 ABG HCO3 ABG Total CO2 ABG O2 Saturation Potassium Chloride Carbon Dioxide BUN Creatinine Glucose POC Glucose (mg/dL) Calcium Magnesium AST Total Protein Albumin TSH Urine Appearance Cloudy H Urine Protein 1+ H Urine Ketones 1+ H Urine Blood Small H Ur Leukocyte Esterase Large H Urine RBC Urine WBC 21 H Urine WBC Clumps Calcium Oxalate Crystal Urine Bacteria Rare H Urine Mucus Rare H Urine Yeast (Budding) Crossmatch 04/15/21 04/16/21 04/16/21 17:15 14:53 15:24 WBC 13.1 H RBC 3.44 L Hgb 9.6 L Hct 29.4 L MCH MCHC RDW 17.7 H Absolute Nucleated RBC Myelocytes % Immature Gran # Neutrophils # 11.1 H Neutrophils # (Manual) Lymphocytes # Monocytes # Eosinophils # NRBC/100 WBC Diff PT INR APTT ABG pH ABG pO2 ABG HCO3 ABG Total CO2 ABG O2 Saturation Potassium Chloride Carbon Dioxide 31 H BUN Creatinine Glucose POC Glucose (mg/dL) 144 H Calcium Magnesium AST 12 L Total Protein 5.6 L Albumin 3.0 L TSH Urine Appearance Urine Protein Urine Ketones Urine Blood Ur Leukocyte Esterase Urine RBC Urine WBC Urine WBC Clumps Calcium Oxalate Crystal Urine Bacteria Urine Mucus Urine Yeast (Budding) Crossmatch 04/17/21 04/17/21 04/17/21 06:01 06:01 06:01 WBC RBC 2.88 L Hgb 8.0 L D Hct 25.1 L MCH MCHC RDW 17.9 H Absolute Nucleated RBC Myelocytes % Immature Gran # Neutrophils # Neutrophils # (Manual) Lymphocytes # Monocytes # Eosinophils # NRBC/100 WBC Diff PT INR APTT ABG pH ABG pO2 ABG HCO3 ABG Total CO2 ABG O2 Saturation Potassium 2.8 L Chloride Carbon Dioxide BUN Creatinine Glucose 104 H POC Glucose (mg/dL) Calcium 8.1 L Magnesium 1.4 L AST Total Protein Albumin TSH Urine Appearance Urine Protein Urine Ketones Urine Blood Ur Leukocyte Esterase Urine RBC Urine WBC Urine WBC Clumps Calcium Oxalate Crystal Urine Bacteria Urine Mucus Urine Yeast (Budding) Crossmatch 04/17/21 04/18/21 04/18/21 16:59 07:20 10:11 WBC RBC 3.03 L Hgb 8.5 L Hct 26.4 L MCH MCHC RDW 17.9 H Absolute Nucleated RBC Myelocytes % Immature Gran # Neutrophils # 8.6 H Neutrophils # (Manual) Lymphocytes # Monocytes # Eosinophils # NRBC/100 WBC Diff PT INR APTT ABG pH ABG pO2 ABG HCO3 ABG Total CO2 ABG O2 Saturation Potassium 3.3 L Chloride Carbon Dioxide BUN Creatinine Glucose POC Glucose (mg/dL) Calcium Magnesium 1.4 L AST Total Protein Albumin TSH 6.270 H Urine Appearance Urine Protein Urine Ketones Urine Blood Ur Leukocyte Esterase Urine RBC Urine WBC Urine WBC Clumps Calcium Oxalate Crystal Urine Bacteria Urine Mucus Urine Yeast (Budding) Crossmatch 04/18/21 04/18/21 04/19/21 10:11 20:06 08:08 WBC RBC 3.08 L Hgb 8.4 L Hct 25.8 L MCH MCHC RDW 17.9 H Absolute Nucleated RBC Myelocytes % Immature Gran # Neutrophils # 8.0 H Neutrophils # (Manual) Lymphocytes # Monocytes # Eosinophils # NRBC/100 WBC Diff PT INR APTT ABG pH ABG pO2 ABG HCO3 ABG Total CO2 ABG O2 Saturation Potassium 3.2 L 3.1 L Chloride Carbon Dioxide BUN 6 L Creatinine Glucose POC Glucose (mg/dL) Calcium 8.2 L Magnesium AST Total Protein Albumin TSH Urine Appearance Urine Protein Urine Ketones Urine Blood Ur Leukocyte Esterase Urine RBC Urine WBC Urine WBC Clumps Calcium Oxalate Crystal Urine Bacteria Urine Mucus Urine Yeast (Budding) Crossmatch 04/19/21 04/19/21 04/20/21 08:08 20:20 05:30 WBC RBC Hgb Hct MCH MCHC RDW Absolute Nucleated RBC Myelocytes % Immature Gran # Neutrophils # Neutrophils # (Manual) Lymphocytes # Monocytes # Eosinophils # NRBC/100 WBC Diff PT INR APTT ABG pH ABG pO2 ABG HCO3 ABG Total CO2 ABG O2 Saturation Potassium Chloride Carbon Dioxide BUN 6 L Creatinine Glucose POC Glucose (mg/dL) 103 H Calcium Magnesium AST Total Protein Albumin TSH Urine Appearance Turbid H Urine Protein 1+ H Urine Ketones 1+ H Urine Blood Moderate H Ur Leukocyte Esterase Large H Urine RBC 36 H Urine WBC >182 H Urine WBC Clumps Many H Calcium Oxalate Crystal Urine Bacteria Many H Urine Mucus Rare H Urine Yeast (Budding) Crossmatch 04/20/21 04/20/21 04/20/21 07:13 07:22 07:22 WBC 11.80 H RBC 2.98 L Hgb 8.0 L Hct 25.3 L MCH 26.8 L MCHC 31.6 L RDW 18.2 H Absolute Nucleated RBC 0.02 H Myelocytes % 2 H Immature Gran # Neutrophils # Neutrophils # (Manual) 10.27 H Lymphocytes # Monocytes # Eosinophils # NRBC/100 WBC Diff 0.2 H PT INR APTT ABG pH ABG pO2 ABG HCO3 ABG Total CO2 ABG O2 Saturation Potassium Chloride Carbon Dioxide BUN Creatinine Glucose 101 H POC Glucose (mg/dL) 103 H Calcium Magnesium AST Total Protein 5.4 L Albumin 2.9 L TSH Urine Appearance Urine Protein Urine Ketones Urine Blood Ur Leukocyte Esterase Urine RBC Urine WBC Urine WBC Clumps Calcium Oxalate Crystal Urine Bacteria Urine Mucus Urine Yeast (Budding) Crossmatch 04/20/21 04/22/21 04/22/21 11:42 08:00 08:00 WBC RBC 2.75 L Hgb 7.4 L Hct 24.4 L MCH 26.9 L MCHC 30.3 L RDW 18.5 H Absolute Nucleated RBC Myelocytes % Immature Gran # 0.13 H Neutrophils # 7.74 H Neutrophils # (Manual) Lymphocytes # 0.82 L Monocytes # Eosinophils # NRBC/100 WBC Diff PT INR APTT ABG pH ABG pO2 ABG HCO3 ABG Total CO2 ABG O2 Saturation Potassium 2.8 L Chloride Carbon Dioxide BUN Creatinine Glucose POC Glucose (mg/dL) 107 H Calcium Magnesium AST Total Protein Albumin 2.5 L TSH Urine Appearance Urine Protein Urine Ketones Urine Blood Ur Leukocyte Esterase Urine RBC Urine WBC Urine WBC Clumps Calcium Oxalate Crystal Urine Bacteria Urine Mucus Urine Yeast (Budding) Crossmatch 04/23/21 04/23/21 04/23/21 07:02 11:25 15:26 WBC RBC Hgb Hct MCH MCHC RDW Absolute Nucleated RBC Myelocytes % Immature Gran # Neutrophils # Neutrophils # (Manual) Lymphocytes # Monocytes # Eosinophils # NRBC/100 WBC Diff PT INR APTT ABG pH ABG pO2 ABG HCO3 ABG Total CO2 ABG O2 Saturation Potassium Chloride Carbon Dioxide BUN Creatinine Glucose 122 H POC Glucose (mg/dL) 129 H 125 H Calcium Magnesium AST Total Protein Albumin TSH Urine Appearance Urine Protein Urine Ketones Urine Blood Ur Leukocyte Esterase Urine RBC Urine WBC Urine WBC Clumps Calcium Oxalate Crystal Urine Bacteria Urine Mucus Urine Yeast (Budding) Crossmatch 04/23/21 04/23/21 04/23/21 16:56 17:43 21:02 WBC RBC 2.71 L Hgb 7.3 L Hct 23.1 L MCH MCHC RDW 18.5 H Absolute Nucleated RBC Myelocytes % Immature Gran # Neutrophils # Neutrophils # (Manual) Lymphocytes # Monocytes # Eosinophils # NRBC/100 WBC Diff PT INR APTT ABG pH ABG pO2 ABG HCO3 ABG Total CO2 ABG O2 Saturation Potassium Chloride Carbon Dioxide BUN Creatinine Glucose POC Glucose (mg/dL) 140 H 163 H Calcium Magnesium AST Total Protein Albumin TSH Urine Appearance Urine Protein Urine Ketones Urine Blood Ur Leukocyte Esterase Urine RBC Urine WBC Urine WBC Clumps Calcium Oxalate Crystal Urine Bacteria Urine Mucus Urine Yeast (Budding) Crossmatch 04/24/21 04/24/21 04/24/21 11:05 11:40 12:56 WBC RBC 2.94 L Hgb 7.8 L Hct 24.5 L MCH MCHC RDW 18.7 H Absolute Nucleated RBC Myelocytes % Immature Gran # Neutrophils # Neutrophils # (Manual) Lymphocytes # 0.6 L Monocytes # Eosinophils # NRBC/100 WBC Diff PT INR APTT ABG pH ABG pO2 ABG HCO3 ABG Total CO2 ABG O2 Saturation Potassium Chloride 109 H Carbon Dioxide BUN Creatinine Glucose 101 H POC Glucose (mg/dL) 113 H Calcium 8.2 L Magnesium AST Total Protein Albumin TSH Urine Appearance Urine Protein Urine Ketones Urine Blood Ur Leukocyte Esterase Urine RBC Urine WBC Urine WBC Clumps Calcium Oxalate Crystal Urine Bacteria Urine Mucus Urine Yeast (Budding) Crossmatch 04/24/21 04/24/21 04/25/21 16:33 20:52 05:50 WBC RBC Hgb Hct MCH MCHC RDW Absolute Nucleated RBC Myelocytes % Immature Gran # Neutrophils # Neutrophils # (Manual) Lymphocytes # Monocytes # Eosinophils # NRBC/100 WBC Diff PT INR APTT ABG pH ABG pO2 ABG HCO3 ABG Total CO2 ABG O2 Saturation Potassium Chloride Carbon Dioxide BUN Creatinine Glucose POC Glucose (mg/dL) 124 H 149 H Calcium Magnesium AST Total Protein Albumin TSH Urine Appearance Cloudy H Urine Protein 1+ H Urine Ketones Trace H Urine Blood Large H Ur Leukocyte Esterase Large H Urine RBC 82 H Urine WBC >182 H Urine WBC Clumps Many H Calcium Oxalate Crystal Rare H Urine Bacteria Occasional H Urine Mucus Occasional H Urine Yeast (Budding) Rare H Crossmatch 04/25/21 04/25/21 04/25/21 06:56 11:30 16:26 WBC RBC Hgb Hct MCH MCHC RDW Absolute Nucleated RBC Myelocytes % Immature Gran # Neutrophils # Neutrophils # (Manual) Lymphocytes # Monocytes # Eosinophils # NRBC/100 WBC Diff PT INR APTT ABG pH ABG pO2 ABG HCO3 ABG Total CO2 ABG O2 Saturation Potassium Chloride 108 H Carbon Dioxide BUN Creatinine Glucose 132 H POC Glucose (mg/dL) 149 H 155 H Calcium 8.1 L Magnesium AST Total Protein Albumin TSH Urine Appearance Urine Protein Urine Ketones Urine Blood Ur Leukocyte Esterase Urine RBC Urine WBC Urine WBC Clumps Calcium Oxalate Crystal Urine Bacteria Urine Mucus Urine Yeast (Budding) Crossmatch 04/25/21 04/25/21 04/26/21 16:48 20:34 07:04 WBC RBC 2.76 L Hgb 7.3 L Hct 23.3 L MCH MCHC RDW 18.9 H Absolute Nucleated RBC Myelocytes % Immature Gran # Neutrophils # Neutrophils # (Manual) Lymphocytes # 0.7 L Monocytes # Eosinophils # NRBC/100 WBC Diff PT INR APTT ABG pH ABG pO2 ABG HCO3 ABG Total CO2 ABG O2 Saturation Potassium Chloride Carbon Dioxide BUN Creatinine Glucose POC Glucose (mg/dL) 151 H 144 H Calcium Magnesium AST Total Protein Albumin TSH Urine Appearance Urine Protein Urine Ketones Urine Blood Ur Leukocyte Esterase Urine RBC Urine WBC Urine WBC Clumps Calcium Oxalate Crystal Urine Bacteria Urine Mucus Urine Yeast (Budding) Crossmatch 04/26/21 04/26/21 04/26/21 07:04 07:14 11:32 WBC RBC Hgb Hct MCH MCHC RDW Absolute Nucleated RBC Myelocytes % Immature Gran # Neutrophils # Neutrophils # (Manual) Lymphocytes # Monocytes # Eosinophils # NRBC/100 WBC Diff PT INR APTT ABG pH ABG pO2 ABG HCO3 ABG Total CO2 ABG O2 Saturation Potassium Chloride Carbon Dioxide BUN Creatinine Glucose 146 H POC Glucose (mg/dL) 156 H 123 H Calcium 7.7 L Magnesium AST Total Protein Albumin TSH Urine Appearance Urine Protein Urine Ketones Urine Blood Ur Leukocyte Esterase Urine RBC Urine WBC Urine WBC Clumps Calcium Oxalate Crystal Urine Bacteria Urine Mucus Urine Yeast (Budding) Crossmatch 04/26/21 04/26/21 04/27/21 16:27 20:21 06:34 WBC RBC 2.64 L Hgb 7.0 L Hct 22.9 L MCH 26.5 L MCHC 30.6 L RDW 18.7 H Absolute Nucleated RBC Myelocytes % Immature Gran # 0.24 H Neutrophils # Neutrophils # (Manual) Lymphocytes # 0.84 L Monocytes # Eosinophils # NRBC/100 WBC Diff PT INR APTT ABG pH ABG pO2 ABG HCO3 ABG Total CO2 ABG O2 Saturation Potassium Chloride Carbon Dioxide BUN Creatinine Glucose POC Glucose (mg/dL) 134 H 137 H Calcium Magnesium AST Total Protein Albumin TSH Urine Appearance Urine Protein Urine Ketones Urine Blood Ur Leukocyte Esterase Urine RBC Urine WBC Urine WBC Clumps Calcium Oxalate Crystal Urine Bacteria Urine Mucus Urine Yeast (Budding) Crossmatch 04/27/21 04/27/21 04/27/21 07:06 11:30 11:34 WBC RBC Hgb Hct MCH MCHC RDW Absolute Nucleated RBC Myelocytes % Immature Gran # Neutrophils # Neutrophils # (Manual) Lymphocytes # Monocytes # Eosinophils # NRBC/100 WBC Diff PT INR APTT ABG pH ABG pO2 ABG HCO3 ABG Total CO2 ABG O2 Saturation Potassium Chloride Carbon Dioxide BUN Creatinine Glucose POC Glucose (mg/dL) 157 H 142 H Calcium Magnesium AST Total Protein Albumin TSH Urine Appearance Urine Protein Urine Ketones Urine Blood Ur Leukocyte Esterase Urine RBC Urine WBC Urine WBC Clumps Calcium Oxalate Crystal Urine Bacteria Urine Mucus Urine Yeast (Budding) Crossmatch See Detail 04/27/21 04/27/21 04/28/21 16:47 20:24 06:23 WBC 13.52 H RBC 3.28 L Hgb 9.1 L Hct 28.0 L MCH MCHC RDW 18.4 H Absolute Nucleated RBC Myelocytes % Immature Gran # 0.16 H Neutrophils # 11.38 H Neutrophils # (Manual) Lymphocytes # 0.75 L Monocytes # 1.19 H Eosinophils # 0.03 L NRBC/100 WBC Diff PT INR APTT ABG pH ABG pO2 ABG HCO3 ABG Total CO2 ABG O2 Saturation Potassium Chloride Carbon Dioxide BUN Creatinine Glucose POC Glucose (mg/dL) 153 H 130 H Calcium Magnesium AST Total Protein Albumin TSH Urine Appearance Urine Protein Urine Ketones Urine Blood Ur Leukocyte Esterase Urine RBC Urine WBC Urine WBC Clumps Calcium Oxalate Crystal Urine Bacteria Urine Mucus Urine Yeast (Budding) Crossmatch 04/28/21 04/28/21 04/28/21 06:23 07:10 11:20 WBC RBC Hgb Hct MCH MCHC RDW Absolute Nucleated RBC Myelocytes % Immature Gran # Neutrophils # Neutrophils # (Manual) Lymphocytes # Monocytes # Eosinophils # NRBC/100 WBC Diff PT INR APTT ABG pH ABG pO2 ABG HCO3 ABG Total CO2 ABG O2 Saturation Potassium Chloride Carbon Dioxide BUN Creatinine Glucose 123 H POC Glucose (mg/dL) 135 H 143 H Calcium 8.0 L Magnesium AST Total Protein Albumin TSH Urine Appearance Urine Protein Urine Ketones Urine Blood Ur Leukocyte Esterase Urine RBC Urine WBC Urine WBC Clumps Calcium Oxalate Crystal Urine Bacteria Urine Mucus Urine Yeast (Budding) Crossmatch 04/28/21 04/28/21 04/29/21 16:07 21:12 05:16 WBC 16.65 H RBC 3.58 L Hgb 9.9 L Hct 32.0 L MCH MCHC 30.9 L RDW 19.6 H Absolute Nucleated RBC Myelocytes % Immature Gran # 0.11 H Neutrophils # 13.92 H Neutrophils # (Manual) Lymphocytes # Monocytes # 1.47 H Eosinophils # 0.02 L NRBC/100 WBC Diff PT INR APTT ABG pH ABG pO2 ABG HCO3 ABG Total CO2 ABG O2 Saturation Potassium Chloride Carbon Dioxide BUN Creatinine Glucose POC Glucose (mg/dL) 133 H 126 H Calcium Magnesium AST Total Protein Albumin TSH Urine Appearance Urine Protein Urine Ketones Urine Blood Ur Leukocyte Esterase Urine RBC Urine WBC Urine WBC Clumps Calcium Oxalate Crystal Urine Bacteria Urine Mucus Urine Yeast (Budding) Crossmatch 04/29/21 04/29/21 04/29/21 05:16 07:08 11:22 WBC RBC Hgb Hct MCH MCHC RDW Absolute Nucleated RBC Myelocytes % Immature Gran # Neutrophils # Neutrophils # (Manual) Lymphocytes # Monocytes # Eosinophils # NRBC/100 WBC Diff PT INR APTT ABG pH ABG pO2 ABG HCO3 ABG Total CO2 ABG O2 Saturation Potassium 3.1 L Chloride Carbon Dioxide BUN Creatinine Glucose 125 H POC Glucose (mg/dL) 146 H 124 H Calcium 8.2 L Magnesium AST Total Protein Albumin TSH Urine Appearance Urine Protein Urine Ketones Urine Blood Ur Leukocyte Esterase Urine RBC Urine WBC Urine WBC Clumps Calcium Oxalate Crystal Urine Bacteria Urine Mucus Urine Yeast (Budding) Crossmatch 04/29/21 04/29/21 04/29/21 13:47 13:47 16:37 WBC RBC Hgb Hct MCH MCHC RDW Absolute Nucleated RBC Myelocytes % Immature Gran # Neutrophils # Neutrophils # (Manual) Lymphocytes # Monocytes # Eosinophils # NRBC/100 WBC Diff PT INR APTT ABG pH ABG pO2 ABG HCO3 ABG Total CO2 ABG O2 Saturation Potassium 3.2 L Chloride Carbon Dioxide BUN Creatinine Glucose POC Glucose (mg/dL) 122 H Calcium Magnesium AST Total Protein Albumin 2.3 L TSH Urine Appearance Urine Protein Urine Ketones Urine Blood Ur Leukocyte Esterase Urine RBC Urine WBC Urine WBC Clumps Calcium Oxalate Crystal Urine Bacteria Urine Mucus Urine Yeast (Budding) Crossmatch 04/29/21 04/30/21 04/30/21 20:17 03:22 03:40 WBC RBC Hgb Hct MCH MCHC RDW Absolute Nucleated RBC Myelocytes % Immature Gran # Neutrophils # Neutrophils # (Manual) Lymphocytes # Monocytes # Eosinophils # NRBC/100 WBC Diff PT INR APTT ABG pH ABG pO2 ABG HCO3 ABG Total CO2 ABG O2 Saturation Potassium 3.4 L Chloride Carbon Dioxide BUN 24 H Creatinine 1.14 H Glucose 155 H POC Glucose (mg/dL) 145 H 154 H Calcium 8.3 L Magnesium AST 13 L Total Protein 4.6 L Albumin 2.2 L TSH Urine Appearance Urine Protein Urine Ketones Urine Blood Ur Leukocyte Esterase Urine RBC Urine WBC Urine WBC Clumps Calcium Oxalate Crystal Urine Bacteria Urine Mucus Urine Yeast (Budding) Crossmatch 04/30/21 04/30/21 04/30/21 03:44 03:44 03:44 WBC RBC Hgb 10.8 L D Hct MCH MCHC 30.6 L RDW 19.6 H Absolute Nucleated RBC Myelocytes % Immature Gran # Neutrophils # Neutrophils # (Manual) Lymphocytes # 0.7 L Monocytes # Eosinophils # NRBC/100 WBC Diff PT 12.4 H INR 1.2 H APTT 20.2 L ABG pH ABG pO2 ABG HCO3 ABG Total CO2 ABG O2 Saturation Potassium Chloride Carbon Dioxide BUN Creatinine Glucose POC Glucose (mg/dL) Calcium Magnesium AST Total Protein Albumin TSH Urine Appearance Urine Protein Urine Ketones Urine Blood Ur Leukocyte Esterase Urine RBC Urine WBC Urine WBC Clumps Calcium Oxalate Crystal Urine Bacteria Urine Mucus Urine Yeast (Budding) Crossmatch 04/30/21 04/30/21 04:00 05:18 WBC RBC Hgb Hct MCH MCHC RDW Absolute Nucleated RBC Myelocytes % Immature Gran # Neutrophils # Neutrophils # (Manual) Lymphocytes # Monocytes # Eosinophils # NRBC/100 WBC Diff PT INR APTT ABG pH 7.47 H ABG pO2 219 H ABG HCO3 31 H ABG Total CO2 32 H ABG O2 Saturation 99.4 H Potassium Chloride Carbon Dioxide BUN Creatinine Glucose POC Glucose (mg/dL) 154 H Calcium Magnesium AST Total Protein Albumin TSH Urine Appearance Urine Protein Urine Ketones Urine Blood Ur Leukocyte Esterase Urine RBC Urine WBC Urine WBC Clumps Calcium Oxalate Crystal Urine Bacteria Urine Mucus Urine Yeast (Budding) Crossmatch - Diagnostic Findings Chest x-ray: report reviewed, image reviewed Additional studies: CT of the abdomen and pelvis reviewed, brain CT, EEG reports reviewed Assessment and Plan Plan: Assessment: #1. Displaced PEG tube with gastrostomy, with small pneumoperitoneum, sigmoid volvulus and fecal impaction, status post exploratory laparotomy, sigmoid colectomy, creation of end colostomy and repair of the hysterotomy along with placement of a jejunal feeding tube, postoperative day #0 #2. Hypotension, related to hypovolemia, and sepsis, related to intra-abdominal sepsis related to gastric perforation and urinary tract infection #3. Severe right hydronephrosis, and to a lesser degree left hydronephrosis, urology is following and patient is awaiting nephrostomy tube placement on the right #4. History of right hydronephrosis with placement of right ureteral stent placement in December 2020 and subsequent removal on April 24 2021, with unsuccessful attempt to place another ureteral stent, awaiting nephrostomy tube placement #5. Acute kidney injury related to the hydronephrosis, and ATN #6. Acute urinary tract infection related to Enterococcus faecalis and Fani albicans #7. History Of multiple recurrent urinary tract infections, with urine cultures positive for enterococcus species #8. Altered mental status related to acute toxic and metabolic encephalopathy #9. 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 History of Parkinson's disease on Sinemet #11. Severe nausea and vomiting, poor oral intake, status post PEG tube placement on 04/19/2021, with subsequent removal related to dislodgment and J- tube placement on 04/29/2021 #12. History of constipation with fecal impaction #13. Chronic kidney disease stage II #14. Chronic congestive heart failure with diastolic dysfunction #15. Hypertension #16. Hyperlipidemia #17. Hypothyroidism #18. Anxiety and depression Plan: Patient will be given 2 L of lactated Ringer's and fluid boluses Increase the maintenance rate to 100 mL per hour Continue Zosyn and Diflucan Drop FiO2 down to 50% PICC line will be inserted today and TPN will be started Hold oral medications We'll convert levothyroxin to IV and Diflucan to IV GI and DVT prophylaxis We'll have to consult with urology in regards to the nephrostomy tube placement plans If urology wants to proceed with the procedure today, keep the patient intubated and sedated Continue to closely follow in the intensive care unit I performed a history & physical examination of the patient and discussed their management with my nurse practitioner, Asha Novoa. I reviewed the nurse practitioner's note and agree with the documented findings and plan of care. Lung sounds are positive for diminished breath sounds throughout the lung rose. The findings and the impression was discussed with the patient. I attest to the documentation by the nurse practitioner. Time with Patient: Greater than 30
[2021-04-30] MEDS: FLUCONAZOLE IN NACL,ISO-OSM 100 MG in SALINE 1 50ML.BAG IVPB SCH (10:25)
[2021-04-30] MEDS: HEPARIN SODIUM,PORCINE/PF 5,000 UNIT/0.5 ML SYRINGE SQ SCH ×2 (10:30→16:29)
[2021-04-30] MEDS: LEVOTHYROXINE IVP 100 MCG/5 ML VIAL IV SCH (10:30)
[2021-04-30] MEDS ORDERED: LIDOCAINE 1% INJ 10MG/ML (20 ML MDV) SQ ONE (11:28)
--- NOTE | 2021-04-30 11:53 | XR ---
EXAMINATION TYPE: XR chest 1V confirm line [facility] DATE OF EXAM: 04/30/2021 COMPARISON: 04/30/2021 HISTORY: PICC line placement TECHNIQUE: Single frontal view of the chest is obtained. FINDINGS: Interval placement of a left PICC terminating in the superior vena cava. Endotracheal and enteric tubes are unchanged. Left basilar airspace disease is unchanged. Cardiac silhouette is unchanged in size. IMPRESSION: Interval placement of left PICC terminating in the expected location of the superior vena cava.
[2021-04-30 12:35] LABS: Glucose,Whole Blood 129 mg/dL (75-99)
[2021-04-30] MEDS: SODIUM CHLORIDE 0.9% 1,000 ML IV SCH (12:41)
--- NOTE | 2021-04-30 14:07 | P.PN ---
Subjective Progress Note Date: 04/30/21 This is a 75-year-old female with past medical history of UTI Strep agalactiae - (group b) with Pyelonephritis, severe right hydronephrosis with right ureteral stent insertion to 12/26/20,CVA with residual left-sided weakness, expressive aphasia/TIA, hyperlipidemia, hypertension, chronic renal failure, hypo thyroidism, obesity, anxiety, bipolar, depression, former nicotine dependence presented to the ER via EMS for [facility] with reports that patient had mental status changes, combative over the last few days with an episode of vomiting. Patient's baseline is chronic residual left-sided weakness from prior CVA with expressive aphasia. Patient currently nonverbal, rigid, posturing, attempting to communicate with blinking of right eye. Febrile, T-max 100.3, WBC 13.1 yesterday down to 7.9. Maintained on vancomycin. Hemoglobin 8, platelets 217, glucose 104, potassium 2.8, magnesium 1.4 both being supplemented. Sodium 140, BUN 9, creatinine 0.73. Lactic acid 0.8. UA reporting urine WBCs 21, large leukocytes 1+ ketones. EKG reported normal sinus rhythm, left ventricular hypertrophy, chest x-ray reporting bibasilar atelectasis/subsegmental consolidation. Baca virus not detected. 04/18/[address] reported chronic appearing periventricular white matter ischemic type changes, stable .evaluated by neurology who attributes clinical presentation to suspected severe Parkinsonian from not having Sinemet for a few days. PEG tube placement pending .maintained on IV fluid hydration. Remains encephalopathic,more alert today, minimally conversing, not following commands. EEG/EMG completed, results pending T-max 99.9, normal WBC. Urine culture reporting enterococcus faecium.preliminary blood cultures reporting no growth at 48 hours Continues on vancomycin, creatinine 0.68. Hemoglobin 8.5, platelets 171. Potassium 3.2, magnesium 2.2. 04/21/2021 maintain IV fluid hydration. Lethargic, nausea and vomiting reported after meds administered via PEG-therefore has not received Sinemet yet today. Urology reconsult regarding cystoscopy for hydronephrosis. Impacted, fleets jermaine mas/disimpaction ordered. PICC line ordered for TPN, as patient has been without nutrition for several days prior to admission and has not been able to be started on PEG tube feedings. Afebrile. 04/22/2021 more alert, received Sinemet yesterday and this morning, no nausea vomiting. We'll reattempt tube feeds via PEG tube -if unable to tolerate then we'll proceed with PICC line and TPN. Received one fleets enema with small stool and reported. Potassium 2.8, receiving supplementation, magnesium 1.8. Urine remains cloudy. Evaluated by urology and scheduled for surgery/potential cystoscopy/right ureteral stent removal/8 ureteroscopy/possible replacement of stent on 04/24/2021. 04/23/2021 large bowel movement last night. Reports diffuse abdominal pain. Tolerating tube feeds at 40 MLS per hour/Goal of 55 with minimal to no residuals, no nausea or vomiting. Continues on vancomycin. Scheduled for cystoscopy tomorrow with right ureteral stent exchange. Afebrile. 04/24/2021 Recently returned from cystoscopy, verbal report of stent exchange- multiple attempts. Currently sedated, opens eyes and falls back asleep. 04/25/2021 postop day #1 from cystoscopy. Procedure note reports right ureteral stent removed, multiple attempts made to identify the triple-lumen unable to identify, contrast injected but did not pass into the renal pelvis, multiple attempts made to advance Glidewire-unsuccessful, and procedure was terminated. Bueno catheter with yellow urine with sediment. Patient sleepy but continues to complain of pain, attempting to use communication board. Afebrile, BMP pending. 04/26/2021: Patient is postop day 2 cystoscopy with removal of ureteral stent. There were unable to put another stent in. A urostomy tube is recommended if she continues to have problems per urology. She remains afebrile, blood pressure heart rate and restaurant rate remained stable. Infectious disease, urology and neurology are following. Their notes were reviewed today. Electrolytes are stable. Sugar slightly elevated before breakfast and 156. She large bowel movement last night. She is noted to have elevated TSH at 6.27. She remains on Synthroid of 150 g daily. She remains on vancomycin for her complicated UTI. Diflucan and added. Chillier self this morning is somnolent, but arousable. She can she's tired. She denies any other complaints when specifically asked. She continues to have significant upper extremity edema, most likely from the IV fluids she was on. Her tube feedings are currently at goal at 55 mL per hour. 04/27/2021: Patient status postop day #3 cystoscopy and ureteral stent removal. New stent could not be placed. Urology is following. They're considering a right-sided nephrostomy tube if her right lower quadrant pain is not resolved. Today she complains of right lower quadrant pain. She currently denies any nausea vomiting, chest pains, pressures, shortness of breath. She is nothing by mouth still. She remains afebrile, heart rate restaurant rate and blood pressure remained stable. Pulse oximetry remained stable. Hemoglobin this morning was 7.0. MCV is 86.7. Glucose remained fairly well controlled. She remains on vancomycin and Diflucan for a complicated UTI. Infectious disease is following. 04/28/2021 complains of right lower quadrant pain. Denies nausea. Renal function stable, BUN 15, creatinine 0.74. Afebrile, WBC 13.52. Hemoglobin 9.1, platelets 147. Blood sugars controlled. 04/29/2021 Tube feeds have remained off since Wednesday evening, positive for nausea vomiting last night, none this morning. Abdomen more distended, hypo- active bowel sounds. Diffuse tenderness.Positive bowel movement yesterday. Urology recommended no nephrostomy at this time , following closely with surgery. Surgery updated, recommending PEG tube be placed to gravity with a Bueno-initial flatus, trace dark brown drainage. Potassium 3.1. Afebrile, CBC pending. 04/30/2021 Yesterday WBC worsened, abdomen more distended .KUB and reported high-grade bowel obstruction, contrast within the stomach, vague density left upper quadrant, possible extravasation.CT of abdomen and pelvis completed yesterday reported high attenuation material from gastrostomy tube injection, contrast and peritoneal cavity around the spleen and liver in the upper abdomen, small pneumoperitoneum, gastrostomy tube did not appear to be in the stomach, multiple left-sided renal parapelvic cyst, moderate bilateral hydronephrosis on the right side, large parapelvic cyst, rectal fecal impaction with dilated large bowel and dilated small bowel, mechanical bowel obstruction, bilateral pleural effusions and basilar infiltrates and atelectasis, appears worse. Patient proceeded with exploratory laparotomy, converted to open procedure sigmoid gonzalo ctomy and creation of end colostomy and repair of gastrostomy along with placement of jejunal feeding tube. Returned to ICU, intubated, currently FiO2 50%, PEEP +5. Borderline hypotension ,maintained on IV fluid hydration of LR at 50 miles per hour, diprovan. Renal function mildly worsening, BUN 24, creatinine 1.14. Marginal urine output. Chest x-ray reported cardiomegaly and basilar atelectasis and small right pleural effusion. Continues on Diflucan and Zosyn as per ID. Telemetry sinus rhythm. Afebrile, normal WBC. Hemoglobin 10.8, platelets 216, INR 1.2, potassium 3.4, magnesium 2.1. Objective - Vital Signs Vital signs: Vital Signs Temp 98.2 F 04/30/21 08:00 Pulse 79 04/30/21 10:00 Resp 22 04/30/21 10:00 BP 92/45 04/30/21 10:00 Pulse Ox 97 04/30/21 10:00 Intake & Output 04/29/21 04/30/21 04/30/21 18:59 06:59 18:59 Intake Total 550 950 Output Total 86 30 Balance 464 920 Weight 101.5 kg 101.5 kg Intake: IV 550 950 0.9 250 150 Lactated Ringers 2,000 ml 500 @ 999 mls/hr IV .Q2H1M BALDOMERO Rx#:[id number] Piperacillin-Tazobactam 3 100 100 .375 gm In Sodium Chloride 0.9% 100 ml @ 25 mls/hr IVPB Q8HR BALDOMERO Rx# :[id number] Potassium Chloride 10 meq 200 200 In Water For Injection 1 100ml.bag @ 100 mls/hr IVPB Q1HR BALDOMERO Rx#: [id number] Output: Urine 85 30 Stool 1 Other: Voiding Method Indwelling Catheter Indwelling Catheter Indwelling Catheter - Exam - Exam General: Lying in bed, intubated, sedated, on mechanical ventilation, appears comfortable, synchronous with the vent. HEENT: PERRL. EOMI. conjunctivae normal Neck: Supple, no JVD. Cardiac: Heart regular in rate and rhythm. No S3. No S4. No clicks, rubs. No murmur. Lungs: Clear breath sounds, no rhonchi, no crackles, no wheezes bilateral bases diminished. Abdomen: soft,distended, status post surgery, hypoactive bowel sounds. jejunal tube with stool present. Midline Abdominal dressing with shadowing outlined at distal end. Extremities: Positive edema of all extremities, normal pulses. Skin: Warm and dry, Neurologic: unable to assess, sedated, intubated. Microbiology 04/25/21 05:50 Urine,Voided Urine Culture - Final 04/20/21 05:30 Urine,Catheterized Urine Culture - Final Fani albicans 04/15/21 18:10 Blood Blood Culture - Final No Growth after 144 hours 04/15/21 17:15 Blood Blood Culture - Final No Growth after 144 hours 04/15/21 17:15 Urine,Clean Catch Urine Culture - Final Enterococcus faecium - Labs CBC & Chem 7: 04/30/21 03:44 04/30/21 03:40 Labs: Abnormal Lab Results - Last 24 Hours (Table) 04/29/21 04/29/21 04/29/21 Range/Units 05:16 11:22 13:47 WBC 16.65 H (4.50-10.00) X 10*3/uL RBC 3.58 L (4.10-5.20) X 10*6/uL Hgb 9.9 L (12.0-15.0) g/dL Hct 32.0 L (37.2-46.3) % MCHC 30.9 L (32.0-37.0) g/dL RDW 19.6 H (11.5-14.5) % Immature Gran # 0.11 H (0.00-0.04) X 10*3/uL Neutrophils # 13.92 H (1.80-7.70) X 10*3/uL Lymphocytes # (1.0-4.8) k/uL Monocytes # 1.47 H (0.20-1.00) X 10*3/uL Eosinophils # 0.02 L (0.04-0.35) X 10*3/uL PT (9.0-12.0) sec INR (<1.2) APTT (22.0-30.0) sec ABG pH (7.35-7.45) ABG pO2 (83-108) mmHg ABG HCO3 (21-25) mmol/L ABG Total CO2 (19-24) mmol/L ABG O2 Saturation (94-97) % Potassium 3.2 L (3.5-5.1) mmol/L BUN (7-17) mg/dL Creatinine (0.52-1.04) mg/dL Glucose (74-99) mg/dL POC Glucose (mg/dL) 124 H (75-99) mg/dL Calcium (8.4-10.2) mg/dL AST (14-36) U/L Total Protein (6.3-8.2) g/dL Albumin (3.5-5.0) g/dL 04/29/21 04/29/21 04/29/21 Range/Units 13:47 16:37 20:17 WBC (4.50-10.00) X 10*3/uL RBC (4.10-5.20) X 10*6/uL Hgb (12.0-15.0) g/dL Hct (37.2-46.3) % MCHC (32.0-37.0) g/dL RDW (11.5-14.5) % Immature Gran # (0.00-0.04) X 10*3/uL Neutrophils # (1.80-7.70) X 10*3/uL Lymphocytes # (1.0-4.8) k/uL Monocytes # (0.20-1.00) X 10*3/uL Eosinophils # (0.04-0.35) X 10*3/uL PT (9.0-12.0) sec INR (<1.2) APTT (22.0-30.0) sec ABG pH (7.35-7.45) ABG pO2 (83-108) mmHg ABG HCO3 (21-25) mmol/L ABG Total CO2 (19-24) mmol/L ABG O2 Saturation (94-97) % Potassium (3.5-5.1) mmol/L BUN (7-17) mg/dL Creatinine (0.52-1.04) mg/dL Glucose (74-99) mg/dL POC Glucose (mg/dL) 122 H 145 H (75-99) mg/dL Calcium (8.4-10.2) mg/dL AST (14-36) U/L Total Protein (6.3-8.2) g/dL Albumin 2.3 L (3.5-5.0) g/dL 04/30/21 04/30/21 04/30/21 Range/Units 03:22 03:40 03:44 WBC (4.50-10.00) X 10*3/uL RBC (4.10-5.20) X 10*6/uL Hgb 10.8 L D (12.0-15.0) g/dL Hct (37.2-46.3) % MCHC 30.6 L (32.0-37.0) g/dL RDW 19.6 H (11.5-14.5) % Immature Gran # (0.00-0.04) X 10*3/uL Neutrophils # (1.80-7.70) X 10*3/uL Lymphocytes # 0.7 L (1.0-4.8) k/uL Monocytes # (0.20-1.00) X 10*3/uL Eosinophils # (0.04-0.35) X 10*3/uL PT (9.0-12.0) sec INR (<1.2) APTT (22.0-30.0) sec ABG pH (7.35-7.45) ABG pO2 (83-108) mmHg ABG HCO3 (21-25) mmol/L ABG Total CO2 (19-24) mmol/L ABG O2 Saturation (94-97) % Potassium 3.4 L (3.5-5.1) mmol/L BUN 24 H (7-17) mg/dL Creatinine 1.14 H (0.52-1.04) mg/dL Glucose 155 H (74-99) mg/dL POC Glucose (mg/dL) 154 H (75-99) mg/dL Calcium 8.3 L (8.4-10.2) mg/dL AST 13 L (14-36) U/L Total Protein 4.6 L (6.3-8.2) g/dL Albumin 2.2 L (3.5-5.0) g/dL 04/30/21 04/30/21 04/30/21 Range/Units 03:44 03:44 04:00 WBC (4.50-10.00) X 10*3/uL RBC (4.10-5.20) X 10*6/uL Hgb (12.0-15.0) g/dL Hct (37.2-46.3) % MCHC (32.0-37.0) g/dL RDW (11.5-14.5) % Immature Gran # (0.00-0.04) X 10*3/uL Neutrophils # (1.80-7.70) X 10*3/uL Lymphocytes # (1.0-4.8) k/uL Monocytes # (0.20-1.00) X 10*3/uL Eosinophils # (0.04-0.35) X 10*3/uL PT 12.4 H (9.0-12.0) sec INR 1.2 H (<1.2) APTT 20.2 L (22.0-30.0) sec ABG pH 7.47 H (7.35-7.45) ABG pO2 219 H (83-108) mmHg ABG HCO3 31 H (21-25) mmol/L ABG Total CO2 32 H (19-24) mmol/L ABG O2 Saturation 99.4 H (94-97) % Potassium (3.5-5.1) mmol/L BUN (7-17) mg/dL Creatinine (0.52-1.04) mg/dL Glucose (74-99) mg/dL POC Glucose (mg/dL) (75-99) mg/dL Calcium (8.4-10.2) mg/dL AST (14-36) U/L Total Protein (6.3-8.2) g/dL Albumin (3.5-5.0) g/dL 04/30/21 Range/Units 05:18 WBC (4.50-10.00) X 10*3/uL RBC (4.10-5.20) X 10*6/uL Hgb (12.0-15.0) g/dL Hct (37.2-46.3) % MCHC (32.0-37.0) g/dL RDW (11.5-14.5) % Immature Gran # (0.00-0.04) X 10*3/uL Neutrophils # (1.80-7.70) X 10*3/uL Lymphocytes # (1.0-4.8) k/uL Monocytes # (0.20-1.00) X 10*3/uL Eosinophils # (0.04-0.35) X 10*3/uL PT (9.0-12.0) sec INR (<1.2) APTT (22.0-30.0) sec ABG pH (7.35-7.45) ABG pO2 (83-108) mmHg ABG HCO3 (21-25) mmol/L ABG Total CO2 (19-24) mmol/L ABG O2 Saturation (94-97) % Potassium (3.5-5.1) mmol/L BUN (7-17) mg/dL Creatinine (0.52-1.04) mg/dL Glucose (74-99) mg/dL POC Glucose (mg/dL) 154 H (75-99) mg/dL Calcium (8.4-10.2) mg/dL AST (14-36) U/L Total Protein (6.3-8.2) g/dL Albumin (3.5-5.0) g/dL Assessment and Plan Assessment: Displaced PEG tube with extravasation of contrast and free air, sigmoid volvulus, fecal impaction, status post exploratory laparotomy, sigmoid colectomy, creation of end colostomy and repair of gastrostomy, jejunal feeding tube placement. Acute hypoxic respiratory failure, mechanical ventilator-dependent, related to t he above Hypovolemic hypotension Acute renal failure, ATN ,secondary to the above and hydronephrosis Possible sepsis,multifactorial, including multiple comorbidities ,complicated acute UTI ,severe right-sided hydronephrosis with right stent removal this admission,and #1, not present on admission. Acute toxic, metabolic encephalopathy,brain CT reported no acute infarcts, chronic stable changes, in a patient with history of CVA, possibly secondary to lack of Sinemet, levels ordered, suspect severe parkinsonism,Neurology following. Acute UTI, enterococcus faecium, in a patient with history of recurrent UTIs, recent acute UTI with Enterobacter aerogenes, complicated with bilateral hydronephrosis Bilateral hydronephrosis,no change in the right-sided hydronephrosis. Right ureteral stent insertion 01/06/21, obstruction of UPJ-status post cystoscopy with right stent removed, unable to replace. Nephrostomy pending. 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 Hypothyroidism Bipolar disorder Obesity, BMI 36 Normocytic anemia Plan: Continue on current medication regime ,monitoring and symptomatic treatment. PICC line placement/TPN pending. IV fluid resuscitation .IV antibiotics of Zosyn/Diflucan as per ID.Further urology recommendations given marginal urine output, pending. ICU management as per buckle wire inserter.Prognosis guarded given multiple complex medical issues. The impression and plan of care has been dictated as directed. : I performed a history and examination of this patient, discussed the same with the dictator. I agree with the dictator's note ,documented as a scribe. Any additional findings or plans will be noted.
[2021-04-30] MEDS: MVI, ADULT NO.4 WITH VIT K 10 ML, TRACE (CONC-1ML/DOSE) 1 ML in AMINO ACID 5%-D15W+LYTE... IV SCH ×3 (14:29)
[2021-04-30] MEDS ORDERED: FUROSEMIDE 10 MG/ML 4 ML VIAL IV STA (14:45)
--- NOTE | 2021-04-30 15:24 | PN ---
PROGRESS NOTE DATE OF SERVICE: 04/30/2021 REASON FOR FOLLOWUP: 1. Complicated urinary tract infection. 2. gastric tube and colon volvulus. INTERVAL HISTORY: Patient did have a CT of abdomen and pelvis completed last night for abdominal distention. No evidence of pneumoperitoneum. Subsequently the patient was taken to the OR. He was noticed to have dislodged gastric tube and also with sigmoid volvulus with ischemic . The patient is status post repair of the gastric perforation and jejunostomy tube placement and sigmoid colectomy. Patient is currently intubated on the vent. The patient is hemodynamically stable, not on pressor support. FiO2 is currently stable at 50%. No significant purulent secretions through the ET or other changes reported by nursing staff. PHYSICAL EXAMINATION: Blood pressure 101/47, pulse of 69. Temperature 97.7. She is 97% on 50% FiO2. General description is an elderly female lying in bed in no distress. Respiratory system: Unlabored breathing. Decreased intensity of breath sounds in the base, no wheeze. Heart S1, S2. Regular rate and rhythm. ABDOMEN: Soft, mildly distended. No guarding. No rigidity. LABS: Hemoglobin is 10.1, white count 8.2, BUN of 24, creatinine 1.14. DIAGNOSTIC IMPRESSION AND PLAN: Patient with sepsis, source is abdominal in this patient who did have a sigmoid volvulus status post sigmoid colectomy and diverting colostomy also with perforated gastrostomy tubes, status post repair and jejunostomy tube placement. The patient is covered with Zosyn and Diflucan. White count normalized and we will monitor clinical course closely. MMODL / IJN: [id number] /
--- NOTE | 2021-04-30 15:51 | P.PN ---
Subjective Progress Note Date: 04/30/21 Intubated and sedated, no acute events since surgery, small amount of stool at ostomy site Objective - Vital Signs Vital signs: Vital Signs Temp 97.7 F 04/30/21 12:00 Pulse 79 04/30/21 14:00 Resp 21 04/30/21 14:00 BP 101/47 04/30/21 14:00 Pulse Ox 97 04/30/21 14:00 Intake & Output 04/29/21 04/30/21 04/30/21 18:59 06:59 18:59 Intake Total 550 2700 Output Total 86 64 Balance 464 2636 Weight 101.5 kg 101.5 kg Intake: IV 550 2600 0.9 250 150 Fluconazole in NaCl,Iso- 50 Osm 100 mg In Saline 1 50ml.bag @ 50 mls/hr IVPB DAILY [facility] Rx#:[id number] Lactated Ringers 2,000 ml 2100 @ 999 mls/hr IV .Q2H1M [facility] Rx#:[id number] Piperacillin-Tazobactam 3 100 100 .375 gm In Sodium Chloride 0.9% 100 ml @ 25 mls/hr IVPB Q8HR [facility] Rx# :[id number] Potassium Chloride 10 meq 200 200 In Water For Injection 1 100ml.bag @ 100 mls/hr IVPB Q1HR [facility] Rx#: [id number] Intake, IV Titration 100 Amount propofoL 1,000 mg In 100 Empty Bag 1 bag @ Titrate IV .Q0M [facility] Rx#: [id number] Output: Urine 85 64 Stool 1 Other: Voiding Method Indwelling Catheter Indwelling Catheter Indwelling Catheter - Constitutional Constitutional Comment(s): Intubated sedated - Gastrointestinal Gastrointestinal Comment(s): Soft, moderate distention Ostomy pink and patient with stool at opening J tube in place - Labs CBC & Chem 7: 04/30/21 03:44 04/30/21 03:40 Labs: Abnormal Lab Results - Last 24 Hours (Table) 04/29/21 04/29/21 04/29/21 Range/Units 13:47 16:37 20:17 Hgb (11.4-16.0) gm/dL MCHC (31.0-37.0) g/dL RDW (11.5-15.5) % Lymphocytes # (1.0-4.8) k/uL PT (9.0-12.0) sec INR (<1.2) APTT (22.0-30.0) sec ABG pH (7.35-7.45) ABG pO2 (83-108) mmHg ABG HCO3 (21-25) mmol/L ABG Total CO2 (19-24) mmol/L ABG O2 Saturation (94-97) % Potassium (3.5-5.1) mmol/L BUN (7-17) mg/dL Creatinine (0.52-1.04) mg/dL Glucose (74-99) mg/dL POC Glucose (mg/dL) 122 H 145 H (75-99) mg/dL Calcium (8.4-10.2) mg/dL AST (14-36) U/L Total Protein (6.3-8.2) g/dL Albumin 2.3 L (3.5-5.0) g/dL 04/30/21 04/30/21 04/30/21 Range/Units 03:22 03:40 03:44 Hgb 10.8 L D (11.4-16.0) gm/dL MCHC 30.6 L (31.0-37.0) g/dL RDW 19.6 H (11.5-15.5) % Lymphocytes # 0.7 L (1.0-4.8) k/uL PT (9.0-12.0) sec INR (<1.2) APTT (22.0-30.0) sec ABG pH (7.35-7.45) ABG pO2 (83-108) mmHg ABG HCO3 (21-25) mmol/L ABG Total CO2 (19-24) mmol/L ABG O2 Saturation (94-97) % Potassium 3.4 L (3.5-5.1) mmol/L BUN 24 H (7-17) mg/dL Creatinine 1.14 H (0.52-1.04) mg/dL Glucose 155 H (74-99) mg/dL POC Glucose (mg/dL) 154 H (75-99) mg/dL Calcium 8.3 L (8.4-10.2) mg/dL AST 13 L (14-36) U/L Total Protein 4.6 L (6.3-8.2) g/dL Albumin 2.2 L (3.5-5.0) g/dL 04/30/21 04/30/21 04/30/21 Range/Units 03:44 03:44 04:00 Hgb (11.4-16.0) gm/dL MCHC (31.0-37.0) g/dL RDW (11.5-15.5) % Lymphocytes # (1.0-4.8) k/uL PT 12.4 H (9.0-12.0) sec INR 1.2 H (<1.2) APTT 20.2 L (22.0-30.0) sec ABG pH 7.47 H (7.35-7.45) ABG pO2 219 H (83-108) mmHg ABG HCO3 31 H (21-25) mmol/L ABG Total CO2 32 H (19-24) mmol/L ABG O2 Saturation 99.4 H (94-97) % Potassium (3.5-5.1) mmol/L BUN (7-17) mg/dL Creatinine (0.52-1.04) mg/dL Glucose (74-99) mg/dL POC Glucose (mg/dL) (75-99) mg/dL Calcium (8.4-10.2) mg/dL AST (14-36) U/L Total Protein (6.3-8.2) g/dL Albumin (3.5-5.0) g/dL 04/30/21 04/30/21 Range/Units 05:18 12:33 Hgb (11.4-16.0) gm/dL MCHC (31.0-37.0) g/dL RDW (11.5-15.5) % Lymphocytes # (1.0-4.8) k/uL PT (9.0-12.0) sec INR (<1.2) APTT (22.0-30.0) sec ABG pH (7.35-7.45) ABG pO2 (83-108) mmHg ABG HCO3 (21-25) mmol/L ABG Total CO2 (19-24) mmol/L ABG O2 Saturation (94-97) % Potassium (3.5-5.1) mmol/L BUN (7-17) mg/dL Creatinine (0.52-1.04) mg/dL Glucose (74-99) mg/dL POC Glucose (mg/dL) 154 H 129 H (75-99) mg/dL Calcium (8.4-10.2) mg/dL AST (14-36) U/L Total Protein (6.3-8.2) g/dL Albumin (3.5-5.0) g/dL Assessment and Plan Assessment: POD#0 Ex Lap resection of sigmoid colon with end colostomy, repair of gastrotomy from dislodged peg tube, and placement of feeding J tube Plan: No feeds through J tube for 24 hours, NGT to LIS. ICU care, abx per ID
--- NOTE | 2021-04-30 16:13 | P.PN ---
Progress Note - Text Progress Note Date: 04/30/21 Underwent Lap resection of sigmoid colon with end colostomy, repair of gastrotomy by general surgery. currently intubated and sedated. Having low urine output post surgery, no improvement despite IV hydration. Her FABIAN is most likely multifactorial, given the stability creatinine despite the chronic [place] prior to surgery, Will repeat BMP tonight, continue to monitor urine output, keep nothing by mouth for possible nephrostomy tube tomorrowy if no improvement in urine output and creat
[2021-04-30 17:52] LABS: Glucose,Whole Blood 173 mg/dL (75-99)
--- NOTE | 2021-04-30 17:55 | IR ---
EXAMINATION TYPE: IR cvc insert >=5 years DATE OF EXAM: 04/30/2021 COMPARISON: NONE HISTORY: Needs long-term intravenous access for total parenteral nutrition FINDINGS: Maximal barrier technique was utilized. Hand hygiene obtained with soap and water and alco hol-based hand rub. The skin overlying the left brachial vein was localized with ultrasound and noted to be compressible and patent by ultrasound. An ultrasound image was obtained and submitted on beltran ent's chart. Sterile technique utilized with the ultrasound machine. The skin overlying was prepped a nd draped and Lidocaine used for local anesthesia. A skin kelsey was made with a scalpel. Access was gained to the vein under direct ultrasound guidance with a 21-gauge needle and a 0.018 inch wire was advanced. Access site was dilated with a peel-away sheath and the catheter tailored to length. Cath eter advanced centrally and a post procedure chest x-ray verified placement with tip at the superior vena cava. Catheter was fixed to the skin and a sterile dressing placed. Hemostasis achieved and th e catheter was aspirated and flushed with sterile saline. The patient remained in stable condition. IMPRESSION: STATUS POST ULTRASOUND GUIDED PICC LINE PLACEMENT, READY FOR USE. THIS PROCEDURE WAS PER FORMED BY THE UNDERSIGNED.
[2021-05-01] MEDS ORDERED: SODIUM CHLORIDE 0.9% 1,000 ML IV ONE (00:30)
[2021-05-01 00:37] LABS: Glucose,Whole Blood 160 mg/dL (75-99)
[2021-05-01] MEDS: PIPERACILLIN-TAZOBACTAM 3.375 GM in SODIUM CHLORIDE 0.9% 100 ML IVPB SCH ×4 (00:50→23:44)
[2021-05-01] MEDS: INSULIN ASPART (NovoLOG) 100 UNIT/ML VIAL SQ SCH ×5 (00:51→23:45)
[2021-05-01] MEDS: HEPARIN SODIUM,PORCINE/PF 5,000 UNIT/0.5 ML SYRINGE SQ SCH ×4 (00:51→23:45)
[2021-05-01] MEDS: NOREPINEPHRINE 4 MG in SODIUM CHLORIDE 0.9% 250 ML IV SCH ×2 (02:55→17:53)
[2021-05-01 04:32] LABS: ABG Base Excess 8.1 mmol/L; ABG HCO3 32 mmol/L (21-25); ABG Oxygen Saturation 97.3 % (94-97); ABG PCO2 43 mmHg (35-45); ABG PH 7.48 (7.35-7.45); ABG PO2 93 mmHg (83-108); ABG TCO2 33 mmol/L (19-24); Allen Test Performed? Yes
[2021-05-01 04:54] LABS: Albumin 1.8 g/dL (3.5-5.0); Calcium 7.9 mg/dL (8.4-10.2); Magnesium 1.9 mg/dL (1.6-2.3); Total Bilirubin 0.4 mg/dL (0.2-1.3); Total Protein 3.9 g/dL (6.3-8.2)
[2021-05-01 05:00] LABS: Potassium 3.9 mmol/L (3.5-5.1)
[2021-05-01 05:46] LABS: Glucose,Whole Blood 172 mg/dL (75-99)
[2021-05-01] MEDS: POTASSIUM CHLORIDE 10 MEQ in WATER FOR INJECTION 1 100ML.BAG IVPB SCH ×2 (05:46→06:42)
[2021-05-01 06:14] LABS: Anisocytosis Slight; Basophils % (A) 0 %; Eosinophils # (A) 0.1 k/uL (0-0.7); Eosinophils % (A) 1 %; HCT 25.2 % (34.0-46.0); Hypochromasia Slight; Lymphocytes # (A) 0.7 k/uL (1.0-4.8); Lymphocytes % (A) 10 %; MCH 28.4 pg (25.0-35.0); MCHC 33.3 g/dL (31.0-37.0); MCV 85.3 fL (80.0-100.0); Mean Platelet Volume 8.7; Microcytosis Slight; Monocytes # (A) 0.3 k/uL (0-1.0); Monocytes % (A) 4 %; Neutrophils # (A) 5.9 k/uL (1.3-7.7); Neutrophils % (A) 84 %; Platelet Count 179 k/uL (150-450); Poikilocytosis Slight; RBC 2.95 m/uL (3.80-5.40); RDW 19.9 % (11.5-15.5); WBC 7.1 k/uL (3.8-10.6)
[2021-05-01 06:49] LABS: HGB 8.4 gm/dL (11.4-16.0)
[2021-05-01] MEDS: PANTOPRAZOLE 40 MG/10 ML VIAL IV SCH (08:12)
[2021-05-01] MEDS: LEVOTHYROXINE IVP 100 MCG/5 ML VIAL IV SCH (08:12)
[2021-05-01] MEDS: SODIUM CHLORIDE 0.9% 1,000 ML IV SCH (08:28)
[2021-05-01] MEDS: NYSTATIN 100,000 UNIT/GM POWD 15 GM TOPICAL SCH ×3 (08:29→23:06)
--- NOTE | 2021-05-01 08:43 | P.PN ---
Subjective Progress Note Date: 05/01/21 Principal diagnosis: Dislodged PEG tube, intra-abdominal sepsis, urinary tract infection with sepsis This is a 75-year-old white female patient a resident of a local [facility], who was initially admitted to the hospital on 04/15/2021 when she was brought to the hospital per EMS with altered mentation, and vomiting. Patient was receiving Rocephin for a urinary tract infection at the nursing facility and patient is known to have a history of multiple recurrent urinary tract infections and history of right ureteral stent placement. Patient at baseline is a poor historian, related to previous history of CVA and patient has left-sided weakness and expressive aphasia. Other medical history significant for hyperlipidemia, hypertension, hypothyroidism, Parkinson's disease, anxiety, depression, degenerative arthritis. Most recent urine culture from February and March 2021 showed evidence of enterococcus with multiple resistances and she was placed on vancomycin in the emergency department. CT of the abdomen and pelvis on admission showed marked right hydronephrosis, and a small left hydronephrosis similar findings on the CT of the abdomen and pelvis from 03/18/2021. Urology is following and was planning on insertion of a nephrostomy. Neurological workup showed a brain CT with chronic appearing periventricular white matter of ischemic type, which was stable. EEG showed an abnormal EEG due to the background slowing of mild to moderate degree suggestive of generalized cerebral dysfunction as seen with toxic metabolic encephalopathy and diffuse structural brain abnormality. No evidence of epileptiform activity was seen. Neurology's impression was that the altered mental status was likely due to toxic metabolic encephalopathy. Patient continued to be nauseous and vomiting and was unable to take any oral medications or oral feedings. On 04/19/2021 patient underwent EGD and PEG tube placement by Dr. Dempsey. The EGD showed no abnormalities within the stomach and duodenum. However the patient continued to have intermittent nausea and vomiting, and tube feedings were on hold and the PEG tube was connected to dependent drainage. On 04/24/2021 patient underwent cystoscopy, right retrograde pyelogram and right ureteroscopy, right ureteral stent was removed, however attempts to replace it were unsuccessful, and nephrostomy tube insertion was planned. On 04/29/2021 patient developed worsening tenderness and distention of the abdomen, she continued to have nausea with vomiting, and her leukocytosis was worsening. CT of the abdomen and pelvis on 04/29/2021 showed extravasation of the contrast from the PEG tube, with a concern of dislodged PEG tube from the stomach with a small amount of air in the peritoneum. Also there was a large stool ball and markedly distended possibly volvulized sigmoid colon. Right nephrostomy procedure was placed on hold, and patient was taken to the operating room and underwent exploratory laparotomy which was converted to open procedure, sigmoid colectomy, and creation of end colostomy and repair of gastrostomy along with placement of jejunal feeding tube. Patient was admitted to the intensive care unit following her procedure earlier this morning at around 3:00 this morning intubated and on mechanical ventilator support. This morning she is on assist-control mode of ventilation with a rate of 14, tidal vital 300, FiO2 of 60% and PEEP of 5, this morning's blood gas showed a pO2 of 219, pCO2 42, pH of 7.47, this was done on 100% FiO2 and this was subsequently dropped to 60%. She is on lactated Ringer's at 50 ML per hour, Diprivan and is at 30 ML per hour, hemodynamically she is stable, not requiring any vasopressor support, she is in sinus mechanism, blood pressure is 100/55. Her chest x-ray today has been reviewed and not showing ET tube and OG tube in appropriate posi tions, no pneumothorax, the basilar atelectasis, low lung volumes. Breasts the blood work reveals white count of 8.2, hemoglobin is 10.8, platelet count is 216, INR is 1.2, sodium is 137, potassium is 3.4, chloride is 101, CO2 is 30, BUN is 24, creatinine is 1.14. Patient's urine output has been quite poor, and she has only produced 35 mL of urine overnight. Current antibiotic coverage includes Diflucan and Zosyn for evidence of enterococcus faecium in the urine, and Fani albicans in the urine culture on urine culture from 04/20/2021. ID service is following. On 05/01/2021 patient seen in follow-up in the intensive care unit. She remains sedated, and intubated on mechanical ventilator, she is currently on assist control mode of ventilation with a rate of 14, tidal volume 300, FiO2 of 40% and PEEP of 5. This morning his blood gases show pO2 of 93, pCO2 43, and pH of 7.48 and this was done on FiO2 of 50% and it has since been dropped to 40%. She is currently on Diprivan at 40 mics per kilo per minute, lactated Ringer's at 100 ML per hour, 0.9 was seen at 20 ML per hour. Levofed is at 2 mics per minute. Patient was started on TPN yesterday which is infusing at 30 ML per hour, patient's urine output has improved in the last 24 hours and responds to IV fluids and one dose of Lasix was given yesterday in the afternoon. However she received significant amount of IV fluid boluses, and she is in positive net fluid balance of 4.3 L or last 24 hours. Patient has significant generalized edema. This morning's chest x-ray is pending, this morning's labs have been reviewed showing white blood cell count of 7.1, hemoglobin of 8.4, platelet count is 179, sodium is 136, the rest of the electrolytes are unremarkable, BUN is 28 creatinine is 1.14. She is currently in sinus mechanism with a rate of 89 BPM, no arrhythmias overnight, lung sounds are clear, abdomen is soft, did not incision is clean dry and intact, left upper quadrant colostomy and placed on a to produce small amount of liquid yellowish colored stool, right upper quadrant J-tube in place, and patient has not been initiated on not tube feedings yet. Overall hemodynamically she is stable, minimal amount of pressors, urine output is improving, renal profile is stable, FiO2 requirement is 40%, urology is following, and patient is being considered for nephrostomy tube however this has not been scheduled yet. We'll proceed with spontaneous awakening trial and a spontaneous breathing trial this morning Objective - Vital Signs Vital signs: Vital Signs Temp 97.5 F L 05/01/21 04:00 Pulse 93 05/01/21 07:00 Resp 17 05/01/21 07:00 BP 117/52 05/01/21 07:00 Pulse Ox 94 L 05/01/21 07:00 Intake & Output 04/30/21 05/01/21 05/01/21 18:59 06:59 18:59 Intake Total 3268.513 2361.878 100 Output Total 194 1080 Balance 3074.513 1281.878 100 Weight 101.5 kg Intake: IV 3100 2101 0.9 150 120 Fluconazole in NaCl,Iso- 50 Osm 100 mg In Saline 1 50ml.bag @ 50 mls/hr IVPB DAILY [facility] Rx#:[id number] LR 650 Lactated Ringers 2,000 ml 2500 100 @ 999 mls/hr IV .Q2H1M [facility] Rx#:[id number] Mvi, Adult No.4 with Vit 31 K 10 ml Trace (Conc-1Ml/ Dose) 1 ml In Amino Acid 5%-D15w+Lytes*E* 1,000 ml @ 30 mls/hr IV .Q24H [facility] Rx#:[id number] Piperacillin-Tazobactam 3 100 .375 gm In Sodium Chloride 0.9% 100 ml @ 25 mls/hr IVPB Q8HR [facility] Rx# :[id number] Potassium Chloride 10 meq 300 200 In Water For Injection 1 100ml.bag @ 100 mls/hr IVPB Q1HR [facility] Rx#: [id number] Sodium Chloride 0.9% 1, 1000 000 ml @ 999 mls/hr IV . Q1H1M [facility] Rx#:[id number] Intake, IV Titration 168.513 260.878 100 Amount Norepinephrine 4 mg In 0 Sodium Chloride 0.9% 250 ml @ 0.05 MCG/KG/MIN 19. 336 mls/hr IV .Q13H9M [facility] Rx#:[id number] propofoL 1,000 mg In 168.513 260.878 100 Empty Bag 1 bag @ Titrate IV .Q0M [facility] Rx#: [id number] Output: Gastric Drainage 350 Urine 194 730 Other: Voiding Method Indwelling Catheter Indwelling Catheter - Exam GENERAL EXAM: Sedated, intubated, on assist-control mode of ventilation, with FiO2 40%, and PEEP of 5 comfortable in no apparent distress. HEAD: Normocephalic/atraumatic. EYES: Normal reaction of pupils, equal size. Conjunctiva pink, sclera white. NOSE: Clear with pink turbinates. THROAT: No erythema or exudates. NECK: No masses, no JVD, no thyroid enlargement, no adenopathy. CHEST: No chest wall deformity. Symmetrical expansion. LUNGS: Equal air entry with no crackles, wheeze, rhonchi or dullness. CVS: Regular rate and rhythm, normal S1 and S2, no gallops, no murmurs, no rubs ABDOMEN: Soft, nontender. No hepatosplenomegaly, normal bowel sounds, no guarding or rigidity. Mid abdominal incision clean dry and intact, covered with surgical dressing, epigastric jejunostomy tube in place, insertion site clean dry intact, left upper quadrant colostomy, with a small amount of liquid yellow stool EXTREMITIES: No clubbing, no edema, no cyanosis, 2+ pulses and upper and lower extremities. MUSCULOSKELETAL: Muscle strength and tone normal. SPINE: No scoliosis or deformity SKIN: No rashes CENTRAL NERVOUS SYSTEM: Sedated, intubated No focal deficits, tone is normal in all 4 extremities. - Labs CBC & Chem 7: 05/01/21 05:28 05/01/21 03:50 Labs: Abnormal Lab Results - Last 24 Hours (Table) 04/30/21 04/30/21 04/30/21 Range/Units 12:33 17:50 21:13 RBC (3.80-5.40) m/uL Hgb (11.4-16.0) gm/dL Hct (34.0-46.0) % RDW (11.5-15.5) % ABG pH (7.35-7.45) ABG HCO3 (21-25) mmol/L ABG Total CO2 (19-24) mmol/L ABG O2 Saturation (94-97) % Sodium (137-145) mmol/L BUN (7-17) mg/dL Creatinine 1.18 H (0.52-1.04) mg/dL Glucose (74-99) mg/dL POC Glucose (mg/dL) 129 H 173 H (75-99) mg/dL Calcium (8.4-10.2) mg/dL Total Protein (6.3-8.2) g/dL Albumin (3.5-5.0) g/dL 05/01/21 05/01/21 05/01/21 Range/Units 00:35 03:50 04:28 RBC (3.80-5.40) m/uL Hgb (11.4-16.0) gm/dL Hct (34.0-46.0) % RDW (11.5-15.5) % ABG pH 7.48 H (7.35-7.45) ABG HCO3 32 H (21-25) mmol/L ABG Total CO2 33 H (19-24) mmol/L ABG O2 Saturation 97.3 H (94-97) % Sodium 136 L (137-145) mmol/L BUN 28 H (7-17) mg/dL Creatinine 1.14 H (0.52-1.04) mg/dL Glucose 143 H (74-99) mg/dL POC Glucose (mg/dL) 160 H (75-99) mg/dL Calcium 7.9 L (8.4-10.2) mg/dL Total Protein 3.9 L (6.3-8.2) g/dL Albumin 1.8 L (3.5-5.0) g/dL 05/01/21 05/01/21 Range/Units 05:28 05:44 RBC 2.95 L (3.80-5.40) m/uL Hgb 8.4 L D (11.4-16.0) gm/dL Hct 25.2 L (34.0-46.0) % RDW 19.9 H (11.5-15.5) % ABG pH (7.35-7.45) ABG HCO3 (21-25) mmol/L ABG Total CO2 (19-24) mmol/L ABG O2 Saturation (94-97) % Sodium (137-145) mmol/L BUN (7-17) mg/dL Creatinine (0.52-1.04) mg/dL Glucose (74-99) mg/dL POC Glucose (mg/dL) 172 H (75-99) mg/dL Calcium (8.4-10.2) mg/dL Total Protein (6.3-8.2) g/dL Albumin (3.5-5.0) g/dL Assessment and Plan Plan: Assessment: #1. Displaced PEG tube with gastrostomy, with small pneumoperitoneum, sigmoid volvulus and fecal impaction, status post exploratory laparotomy, sigmoid colectomy, creation of end colostomy and repair of the gastrotomy along with placement of a jejunal feeding tube, postoperative day #1 #2. Hypotension, related to hypovolemia, and sepsis, related to intra-abdominal sepsis related to gastric perforation and urinary tract infection #3. Severe right hydronephrosis, and to a lesser degree left hydronephrosis, urology is following and patient is awaiting nephrostomy tube placement on the right #4. History of right hydronephrosis with placement of right ureteral stent placement in December 2020 and subsequent removal on April 24 2021, with unsuccessful attempt to place another ureteral stent, awaiting nephrostomy tube placement #5. Acute kidney injury related to the hydronephrosis, and ATN #6. Acute urinary tract infection related to Enterococcus faecalis and Fani albicans #7. History Of multiple recurrent urinary tract infections, with urine cultures positive for enterococcus species #8. Altered mental status related to acute toxic and metabolic encephalopathy #9. 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 History of Parkinson's disease on Sinemet #11. Severe nausea and vomiting, poor oral intake, status post PEG tube placement on 04/19/2021, with subsequent removal related to dislodgment and J- tube placement on 04/29/2021 #12. History of constipation with fecal impaction #13. Chronic kidney disease stage II #14. Chronic congestive heart failure with diastolic dysfunction #15. Hypertension #16. Hyperlipidemia #17. Hypothyroidism #18. Anxiety and depression Plan: Todays chest x-ray has been reviewed Labs and blood gases reviewed Drop FiO2 down to 40% Hemodynamically patient is stable, requiring minimal vasopressor support Renal profile is stable Urine output has improved However overall patient is generally fluid overloaded Cutback to IV fluids to 50 ML per hour Continue TPN Continue Zosyn and Diflucan No immediate plans for nephrostomy right now GI and DVT prophylaxis We'll await the patient up and proceed with spontaneous breathing trials with pressure support of 5 and CPAP of 5 We'll proceed with extubation if tolerates SBT Continue to closely follow in the intensive care unit I performed a history & physical examination of the patient and discussed their management with my nurse practitioner, Asha Novoa. I reviewed the nurse practitioner's note and agree with the documented findings and plan of care. Lung sounds are positive for diminished breath sounds throughout the lung rose. The findings and the impression was discussed with the patient. I attest to the documentation by the nurse practitioner. Time with Patient: Greater than 30
[2021-05-01] MEDS: CHLORHEXIDINE GLUCONATE 15 ML CUP MUCOUS MEM SCH (08:48)
--- NOTE | 2021-05-01 08:48 | XR ---
EXAMINATION TYPE: XR chest 1V portable DATE OF EXAM: 05/01/2021 COMPARISON: 04/30/2021 HISTORY: Acute respiratory failure TECHNIQUE: Single frontal view of the chest is obtained. FINDINGS: ET and NG tube stable. PICC line noted. Diffuse interstitial pattern with bilateral infilt rate and small effusion. IMPRESSION: 1. Correlate for venous congestion otherwise consider pneumonia.
[2021-05-01] MEDS: FLUCONAZOLE IN NACL,ISO-OSM 100 MG in SALINE 1 50ML.BAG IVPB SCH (09:55)
[2021-05-01 11:32] LABS: Glucose,Whole Blood 140 mg/dL (75-99)
--- NOTE | 2021-05-01 11:49 | CDI ---
Documentation Clarification Form Date: 05/01/2021 10:28:59 AM From: Katelin Madrid RN, CCDS Admit Date: 04/17/2021 11:06:00 AM Patient Name: Leena Carmona Visit Number: [id number] Discharge Date: ATTENTION: The Clinical Documentation Specialists (CDI) and [facility] Coding Staff appreciate your assistance in clarifying documentation. Please respond to the clarification below the line at the bottom and electronically sign. The CDI & [facility] Coding staff will review the response and follow-up if needed. Please note: Queries are made part of the Legal Health Record. If you have any questions, please contact the author of this message via ITS. Dr. Santiago Dempsey 04/30 PEG tube dislodged from the stomach is documented and patient had exploratory laparotomy sigmoid colectomy and creation of end colostomy and repair of gastrotomy along with placement of jejunal feeding tube on 04/30/21. Additional clarification is requested regarding the relationship, if any, that exists between the diagnosis and the procedure. Patients Preoperative Diagnosis: Dislodged PEG tube with gastrotomy. Post-Operative Diagnosis: Dislodged PEG tube with gastrotomy. Sigmoid volvulus with ischemic appearing colon fecal impaction Procedure performed: Exploratory laparotomy sigmoid colectomy and creation of end colostomy and repair of gastrotomy along with placement of jejunal feeding tube. History/Risk Factors: CVA, HTN, UTI CKD stage III, Dysphagia Clinical Indicators: 75-year-old female present on 04/17/21 with mental status change, recurrent UTI, .She is nonverbal and has been having dysphagia and unable to take her PO meds and a PEG tube was placed on 04/19/21. 04/29 Surgery progress note: Patient was distended today, reported by nursing to have some nausea and vomiting. Her WBC 16.5, HGB 9.9, HCT 32.0. Vital signs at 14:00 104/64 90 16 99.2 90 % RA. 04/29 Abdomen XR impression: Dilated bowel loops correlate for obstruction. Bilateral lower lobe infiltrate and small effusion 04.29 Abdominal KUB: Correlate for high-grade obstruction. Contrast is seen within the stomach. There is vague density seen left upper quadrant would recommend CAT scan to exclude extravasation. Treatment: ICU/Telemetry monitoring Mechanical Ventilation per Pulmonary protocol Toby 3.375 GM IVPB Q 8 HRS Diflucan 100 MG IV Daily .9NS IV @ 50 MLS/HR IV NGT to LIS, no feeds through J tube for 24 hrs (noted 04/30) Consults ID: the patient is status post repair of the gastric perforation and jejunostomy tube placement and sigmoid colectomy. The patient is currently intubated on the vent. Patient with sepsis, source is abdominal in this patient who did have a sigmoid volvulus also with perforated gastrostomy tubes. What relationship, if any, exists between the diagnosis of dislodged PEG tube, gastric perforation and the procedure? [ ] Dislodge PEG tube and gastric perforation is a complication of surgical procedure [ ] Dislodge PEG tube and gastric perforation is an expected outcome of the surgical procedure [ ] Dislodge PEG tube] and gastric perforation is related to patients co- morbid condition(s) of [insert co-morbid ds] & not a complication of the procedure [ X] Other please specify ____ [ ] Unable to determine (Template Last Revised: January 2021) I never gave the diagnosis of gastric perforation, that was another doctors note. I noted the gastrotomy which was present from the location of the previously placed percutaneous endoscopically placed gastrostomy tube and repaired the gastrotomy during the exploratory laparotomy. PEG tube dislodgment is not a complication of the procedure. The PEG tube was placed properly in the stomach and was functioning for days after the procedure while the patient was on the floor. There is a picture in the chart of the PEG in proper placement. It likely was pulled out of place when the patient who is bed ridden was moved in bed however I can only speculate to the cause of it being pulled as I was not present when it happened. GERARDOD
[2021-05-01 12:25] LABS: Polychromasia Present
--- NOTE | 2021-05-01 12:52 | CDI ---
Documentation Clarification Form Date: 05/01/2021 11:50:00 AM From: Katelin Madrid RN, CCDS Admit Date: 04/17/2021 11:06:00 AM Patient Name: Leena Carmona Visit Number: [id number] Discharge Date: ATTENTION: The Clinical Documentation Specialists (CDI) and [facility] Coding Staff appreciate your assistance in clarifying documentation. Please respond to the clarification below the line at the bottom and electronically sign. The CDI & [facility] Coding staff will review the response and follow-up if needed. Please note: Queries are made part of the Legal Health Record. If you have any questions, please contact the author of this message via ITS. Dr. Reese Lyn Your patient had a right ureteral stent insertion on 12/26/2020. Regrograde pyelogram. She has been treated for recurrent UTI'S. Please render your opinion on the etiology of the UTI currently being treated. Patient history/risk factors: CVA, HTN, Recurrent UTI, Right-sided Hydronephrosis, CKD stage III, Dysphagia, Clinical Indicators: 75-year-old female present on 04/15 admitted on 04/17 for altered mental status ruled in for UTI with CT showing persistent right-sided hydronephrosi however this is chronic and no acute findings 04/17 Labs: WBC 7.3, HGB 8.8, HCT 27.4 Urine culture Enterococcus faecium (04/15) 04/15 CT Abdomen and pelvis: severe-right sided hydronephrosis with ill-defined fluid and fat stranding suggesting inflammatory process, markedly dilated collecting system with internal bebris or blood products 04/15 vital Vital Signs: 172/82 72 18 99.9 92 % RA 04/25 Procedure: Cystoscopy, right retrograde pyelogram, right ureteroscopy. Operative Findings: Right proximal ureteral occlusion. The bladder showed evidence of catheter cystitis. the right ureteral stent was removed, unable to replace it 04/24 ID: Complicated urinary tract infection with enterococcus faecium 04/26 Urine culture shows Fani albicans (per ID) Treatment: Cystoscopy, Right retrograde pyelogram, right ureteroscopy Monitor Kidney function closely Repeat UA and culture after change of the stent Vancomycin 1500 MG IVPB Q 16 HRS 04/15-04/21) Pharm to dose DC 04/26 Diflucan 200 mg Po once (04/25) Please clarify the etiology of the UTI, if known: [ } UTI related to Right Ureteral stent [ X ] UTI not related to Right ureteral stent [ ] Other condition, please specify [ ] Unable to determine (Template Last Revised: January 2021) MTDD
--- NOTE | 2021-05-01 16:52 | P.PN ---
Progress Note - Text Progress Note Date: 05/01/21 Underwent Lap resection of sigmoid colon with end colostomy, repair of gastrotomy by general surgery, she is postop day #1. currently intubated and sedated. Having low urine output post surgery, improved overnight, creating stable at 1.1 Her FABIAN is most likely multifactorial, given the stability creatinine despite the chronic [place] prior to surgery. Given improved urine output, stability creatinine we'll hold off on doing an nephrostomy tube at this time. We'll continue to follow
--- NOTE | 2021-05-01 16:57 | P.PN ---
Subjective Progress Note Date: 05/01/21 This is a 75-year-old female with past medical history of UTI Strep agalactiae - (group b) with Pyelonephritis, severe right hydronephrosis with right ureteral stent insertion to 12/26/20,CVA with residual left-sided weakness, expressive aphasia/TIA, hyperlipidemia, hypertension, chronic renal failure, hypo thyroidism, obesity, anxiety, bipolar, depression, former nicotine dependence presented to the ER via EMS for [facility] with reports that patient had mental status changes, combative over the last few days with an episode of vomiting. Patient's baseline is chronic residual left-sided weakness from prior CVA with expressive aphasia. Patient currently nonverbal, rigid, posturing, attempting to communicate with blinking of right eye. Febrile, T-max 100.3, WBC 13.1 yesterday down to 7.9. Maintained on vancomycin. Hemoglobin 8, platelets 217, glucose 104, potassium 2.8, magnesium 1.4 both being supplemented. Sodium 140, BUN 9, creatinine 0.73. Lactic acid 0.8. UA reporting urine WBCs 21, large leukocytes 1+ ketones. EKG reported normal sinus rhythm, left ventricular hypertrophy, chest x-ray reporting bibasilar atelectasis/subsegmental consolidation. Baca virus not detected. 04/18/[address] reported chronic appearing periventricular white matter ischemic type changes, stable .evaluated by neurology who attributes clinical presentation to suspected severe Parkinsonian from not having Sinemet for a few days. PEG tube placement pending .maintained on IV fluid hydration. Remains encephalopathic,more alert today, minimally conversing, not following commands. EEG/EMG completed, results pending T-max 99.9, normal WBC. Urine culture reporting enterococcus faecium.preliminary blood cultures reporting no growth at 48 hours Continues on vancomycin, creatinine 0.68. Hemoglobin 8.5, platelets 171. Potassium 3.2, magnesium 2.2. 04/21/2021 maintain IV fluid hydration. Lethargic, nausea and vomiting reported after meds administered via PEG-therefore has not received Sinemet yet today. Urology reconsult regarding cystoscopy for hydronephrosis. Impacted, fleets jermaine mas/disimpaction ordered. PICC line ordered for TPN, as patient has been without nutrition for several days prior to admission and has not been able to be started on PEG tube feedings. Afebrile. 04/22/2021 more alert, received Sinemet yesterday and this morning, no nausea vomiting. We'll reattempt tube feeds via PEG tube -if unable to tolerate then we'll proceed with PICC line and TPN. Received one fleets enema with small stool and reported. Potassium 2.8, receiving supplementation, magnesium 1.8. Urine remains cloudy. Evaluated by urology and scheduled for surgery/potential cystoscopy/right ureteral stent removal/8 ureteroscopy/possible replacement of stent on 04/24/2021. 04/23/2021 large bowel movement last night. Reports diffuse abdominal pain. Tolerating tube feeds at 40 MLS per hour/Goal of 55 with minimal to no residuals, no nausea or vomiting. Continues on vancomycin. Scheduled for cystoscopy tomorrow with right ureteral stent exchange. Afebrile. 04/24/2021 Recently returned from cystoscopy, verbal report of stent exchange- multiple attempts. Currently sedated, opens eyes and falls back asleep. 04/25/2021 postop day #1 from cystoscopy. Procedure note reports right ureteral stent removed, multiple attempts made to identify the triple-lumen unable to identify, contrast injected but did not pass into the renal pelvis, multiple attempts made to advance Glidewire-unsuccessful, and procedure was terminated. Bueno catheter with yellow urine with sediment. Patient sleepy but continues to complain of pain, attempting to use communication board. Afebrile, BMP pending. 04/26/2021: Patient is postop day 2 cystoscopy with removal of ureteral stent. There were unable to put another stent in. A urostomy tube is recommended if she continues to have problems per urology. She remains afebrile, blood pressure heart rate and restaurant rate remained stable. Infectious disease, urology and neurology are following. Their notes were reviewed today. Electrolytes are stable. Sugar slightly elevated before breakfast and 156. She large bowel movement last night. She is noted to have elevated TSH at 6.27. She remains on Synthroid of 150 g daily. She remains on vancomycin for her complicated UTI. Diflucan and added. Chillier self this morning is somnolent, but arousable. She can she's tired. She denies any other complaints when specifically asked. She continues to have significant upper extremity edema, most likely from the IV fluids she was on. Her tube feedings are currently at goal at 55 mL per hour. 04/27/2021: Patient status postop day #3 cystoscopy and ureteral stent removal. New stent could not be placed. Urology is following. They're considering a right-sided nephrostomy tube if her right lower quadrant pain is not resolved. Today she complains of right lower quadrant pain. She currently denies any nausea vomiting, chest pains, pressures, shortness of breath. She is nothing by mouth still. She remains afebrile, heart rate restaurant rate and blood pressure remained stable. Pulse oximetry remained stable. Hemoglobin this morning was 7.0. MCV is 86.7. Glucose remained fairly well controlled. She remains on vancomycin and Diflucan for a complicated UTI. Infectious disease is following. 04/28/2021 complains of right lower quadrant pain. Denies nausea. Renal function stable, BUN 15, creatinine 0.74. Afebrile, WBC 13.52. Hemoglobin 9.1, platelets 147. Blood sugars controlled. 04/29/2021 Tube feeds have remained off since Wednesday evening, positive for nausea vomiting last night, none this morning. Abdomen more distended, hypo- active bowel sounds. Diffuse tenderness.Positive bowel movement yesterday. Urology recommended no nephrostomy at this time , following closely with surgery. Surgery updated, recommending PEG tube be placed to gravity with a Bueno-initial flatus, trace dark brown drainage. Potassium 3.1. Afebrile, CBC pending. 04/30/2021 Yesterday WBC worsened, abdomen more distended .KUB and reported high-grade bowel obstruction, contrast within the stomach, vague density left upper quadrant, possible extravasation.CT of abdomen and pelvis completed yesterday reported high attenuation material from gastrostomy tube injection, contrast and peritoneal cavity around the spleen and liver in the upper abdomen, small pneumoperitoneum, gastrostomy tube did not appear to be in the stomach, multiple left-sided renal parapelvic cyst, moderate bilateral hydronephrosis on the right side, large parapelvic cyst, rectal fecal impaction with dilated large bowel and dilated small bowel, mechanical bowel obstruction, bilateral pleural effusions and basilar infiltrates and atelectasis, appears worse. Patient proceeded with exploratory laparotomy, converted to open procedure sigmoid gonzalo ctomy and creation of end colostomy and repair of gastrostomy along with placement of jejunal feeding tube. Returned to ICU, intubated, currently FiO2 50%, PEEP +5. Borderline hypotension ,maintained on IV fluid hydration of LR at 50 miles per hour, diprovan. Renal function mildly worsening, BUN 24, creatinine 1.14. Marginal urine output. Chest x-ray reported cardiomegaly and basilar atelectasis and small right pleural effusion. Continues on Diflucan and Zosyn as per ID. Telemetry sinus rhythm. Afebrile, normal WBC. Hemoglobin 10.8, platelets 216, INR 1.2, potassium 3.4, magnesium 2.1. 05/01/2021 remains on mechanical ventilation, FiO2 down to 40%/+5 of PEEP. Sedated on diprovan. Spontaneous Breathing trials being discussed. Diprovan recently weaned off, slowly waking up, discussing attempting CPAP trial. Significant endotracheal page secretions. Telemetry sinus rhythm 24-hour I&O reflecting a positive fluid balance ; received aggressive fluid boluses/resuscitation, required initiation of Levophed last night, currently on 2 mics. Chest x-ray reporting diffuse interstitial pattern with bilateral infiltrates, small effusion, venous congestion. Received a dose of Lasix ye sterday. Urine output improving. Renal function stable. PICC line placed yesterday with TPN initiated. Afebrile, normal WBC. Hemoglobin 8.4, platelets 179, sodium 136, potassium 3.9, magnesium 1.9, albumin 1.8. Objective - Vital Signs Vital signs: Vital Signs Temp 98.5 F 05/01/21 08:00 Pulse 87 05/01/21 15:00 Resp 11 L 05/01/21 15:00 BP 104/47 05/01/21 15:00 Pulse Ox 100 05/01/21 15:00 Intake & Output 04/30/21 05/01/21 05/01/21 18:59 06:59 18:59 Intake Total 3268.513 2361.878 708.972 Output Total 194 1080 525 Balance 3074.513 1281.878 183.972 Weight 101.5 kg Intake: IV 3100 2101 400 0.9 150 120 Fluconazole in NaCl,Iso- 50 Osm 100 mg In Saline 1 50ml.bag @ 50 mls/hr IVPB DAILY [facility] Rx#:[id number] LR 650 Lactated Ringers 2,000 ml 2500 100 @ 999 mls/hr IV .Q2H1M [facility] Rx#:[id number] Mvi, Adult No.4 with Vit 31 K 10 ml Trace (Conc-1Ml/ Dose) 1 ml In Amino Acid 5%-D15w+Lytes*E* 1,000 ml @ 30 mls/hr IV .Q24H [facility] Rx#:[id number] Piperacillin-Tazobactam 3 100 .375 gm In Sodium Chloride 0.9% 100 ml @ 25 mls/hr IVPB Q8HR [facility] Rx# :[id number] Potassium Chloride 10 meq 300 200 In Water For Injection 1 100ml.bag @ 100 mls/hr IVPB Q1HR [facility] Rx#: [id number] Sodium Chloride 0.9% 1, 400 000 ml @ 50 mls/hr IV . Q20H [facility] Rx#:[id number] Sodium Chloride 0.9% 1, 1000 000 ml @ 999 mls/hr IV . Q1H1M [facility] Rx#:[id number] Intake, IV Titration 168.513 260.878 308.972 Amount Fluconazole in NaCl,Iso- 50 Osm 100 mg In Saline 1 50ml.bag @ 50 mls/hr IVPB DAILY [facility] Rx#:[id number] Norepinephrine 4 mg In 0 58.972 Sodium Chloride 0.9% 250 ml @ 0.05 MCG/KG/MIN 19. 336 mls/hr IV .Q13H9M [facility] Rx#:[id number] Piperacillin-Tazobactam 3 100 .375 gm In Sodium Chloride 0.9% 100 ml @ 25 mls/hr IVPB Q8HR [facility] Rx# :[id number] propofoL 1,000 mg In 168.513 260.878 100 Empty Bag 1 bag @ Titrate IV .Q0M [facility] Rx#: [id number] Output: Gastric Drainage 350 Urine 194 730 525 Other: Voiding Method Indwelling Catheter Indwelling Catheter Indwelling Catheter - Exam - Exam General: Lying in bed, intubated, sedated, on mechanical ventilation, appears comfortable, synchronous with the vent. HEENT: PERRL. EOMI. conjunctivae normal Neck: Supple, no JVD. Cardiac: Heart regular in rate and rhythm. No S3. No S4. No clicks, rubs. No murmur. Lungs: Clear breath sounds, no rhonchi, no crackles, no wheezes bilateral bases diminished. Abdomen: soft,distended, status post surgery, hypoactive bowel sounds. jejunal tube with stool present. Midline Abdominal dressing clean dry and intact. Extremities: Significant Positive edema of all extremities, normal pulses. Skin: Warm and dry, Neurologic: unable to assess, sedated, intubated. - Labs CBC & Chem 7: 05/01/21 05:28 05/01/21 03:50 Labs: Abnormal Lab Results - Last 24 Hours (Table) 04/30/21 04/30/21 05/01/21 Range/Units 17:50 21:13 00:35 RBC (3.80-5.40) m/uL Hgb (11.4-16.0) gm/dL Hct (34.0-46.0) % RDW (11.5-15.5) % Lymphocytes # (1.0-4.8) k/uL ABG pH (7.35-7.45) ABG HCO3 (21-25) mmol/L ABG Total CO2 (19-24) mmol/L ABG O2 Saturation (94-97) % Sodium (137-145) mmol/L BUN (7-17) mg/dL Creatinine 1.18 H (0.52-1.04) mg/dL Glucose (74-99) mg/dL POC Glucose (mg/dL) 173 H 160 H (75-99) mg/dL Calcium (8.4-10.2) mg/dL Total Protein (6.3-8.2) g/dL Albumin (3.5-5.0) g/dL 05/01/21 05/01/21 05/01/21 Range/Units 03:50 04:28 05:28 RBC 2.95 L (3.80-5.40) m/uL Hgb 8.4 L D (11.4-16.0) gm/dL Hct 25.2 L (34.0-46.0) % RDW 19.9 H (11.5-15.5) % Lymphocytes # 0.7 L (1.0-4.8) k/uL ABG pH 7.48 H (7.35-7.45) ABG HCO3 32 H (21-25) mmol/L ABG Total CO2 33 H (19-24) mmol/L ABG O2 Saturation 97.3 H (94-97) % Sodium 136 L (137-145) mmol/L BUN 28 H (7-17) mg/dL Creatinine 1.14 H (0.52-1.04) mg/dL Glucose 143 H (74-99) mg/dL POC Glucose (mg/dL) (75-99) mg/dL Calcium 7.9 L (8.4-10.2) mg/dL Total Protein 3.9 L (6.3-8.2) g/dL Albumin 1.8 L (3.5-5.0) g/dL 05/01/21 05/01/21 Range/Units 05:44 11:31 RBC (3.80-5.40) m/uL Hgb (11.4-16.0) gm/dL Hct (34.0-46.0) % RDW (11.5-15.5) % Lymphocytes # (1.0-4.8) k/uL ABG pH (7.35-7.45) ABG HCO3 (21-25) mmol/L ABG Total CO2 (19-24) mmol/L ABG O2 Saturation (94-97) % Sodium (137-145) mmol/L BUN (7-17) mg/dL Creatinine (0.52-1.04) mg/dL Glucose (74-99) mg/dL POC Glucose (mg/dL) 172 H 140 H (75-99) mg/dL Calcium (8.4-10.2) mg/dL Total Protein (6.3-8.2) g/dL Albumin (3.5-5.0) g/dL Assessment and Plan Assessment: Displaced PEG tube with extravasation of contrast and free air, sigmoid volvulus, fecal impaction, status post exploratory laparotomy, sigmoid colectomy, creation of end colostomy and repair of gastrostomy, jejunal feeding tube placement. Acute hypoxic respiratory failure, mechanical ventilator-dependent, related to the above Hypovolemic hypotension Acute renal failure, ATN ,secondary to the above and hydronephrosis Possible sepsis,multifactorial, including multiple comorbidities ,complicated acute UTI ,severe right-sided hydronephrosis with right stent removal this admission,and #1, not present on admission. Acute toxic, metabolic encephalopathy,brain CT reported no acute infarcts, chronic stable changes, in a patient with history of CVA, possibly secondary to lack of Sinemet, levels ordered, suspect severe parkinsonism,Neurology following. Acute UTI, enterococcus faecium, in a patient with history of recurrent UTIs, recent acute UTI with Enterobacter aerogenes, complicated with bilateral hydronephrosis Bilateral hydronephrosis,no change in the right-sided hydronephrosis. Right ureteral stent insertion 01/06/21, obstruction of UPJ-status post cystoscopy with right stent removed, unable to replace. Nephrostomy pending. 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 Hypothyroidism Bipolar disorder Obesity, BMI 36 Normocytic anemia Status post PICC line with initiation of TPN Plan: Continue on current medication regime ,monitoring and symptomatic treatment. Minimal doses of Levophed, weaning. CPAP trials being discussed currently. Continue on IV antibiotics as per ID. IV fluids decreased. ICU management as per eligibility services representative.Prognosis guarded given multiple complex medical issues. The impression and plan of care has been dictated as directed. : I performed a history and examination of this patient, discussed the same with the dictator. I agree with the dictator's note ,documented as a scribe. Any additional findings or plans will be noted.
[2021-05-01] MEDS: MVI, ADULT NO.4 WITH VIT K 10 ML, TRACE (CONC-1ML/DOSE) 1 ML in AMINO ACID 5%-D15W+LYTE... IV SCH ×3 (17:54)
[2021-05-01 18:11] LABS: Glucose,Whole Blood 138 mg/dL (75-99)
--- NOTE | 2021-05-01 18:56 | PN ---
PROGRESS NOTE DATE OF SERVICE: 05/01/2021 REASON FOR FOLLOW UP: 1. Perforated stomach from the PEG tube. 2. Ischemic colitis. INTERVAL HISTORY: Patient is afebrile. The patient's borderline blood pressure. FiO2 is currently stable at 40%. No significant purulent secretions thru the ET or diarrhea reported by the nursing staff. PHYSICAL EXAMINATION: Blood pressure 108/49, pulse of 93, temperature is 98.5. She is 99% on 40% FiO2. General description is a middle-aged female lying in bed in no distress. Respiratory system: Unlabored breathing, decreased intensity of breath sounds. No wheeze. Heart S1, S2. Regular rate and rhythm. ABDOMEN: Soft, mildly distended. No guarding. No rigidity. LAB: Hemoglobin 8.4, white count 7.1, BUN of 28, creatinine 0.14. DIAGNOSTIC IMPRESSION AND PLAN: Patient with perforated PEG tube, in this patient status post gastropathy and jejunostomy tube placement, now with volvulus and ischemic colon status post sigmoid colectomy and diverting colostomy. The patient is covered with Zosyn and Diflucan. The patient's white count has normalized. Continue supportive care. MMODL / IJN: [id number] /
--- NOTE | 2021-05-01 20:18 | P.PN ---
Subjective Progress Note Date: 05/01/21 Extubated, resting comfortably in bed Objective - Vital Signs Vital signs: Vital Signs Temp 98.9 F 05/01/21 16:00 Pulse 96 05/01/21 19:00 Resp 15 05/01/21 19:00 BP 98/51 05/01/21 19:00 Pulse Ox 100 05/01/21 19:00 Intake & Output 05/01/21 05/01/21 05/02/21 06:59 18:59 06:59 Intake Total 2361.878 1781.472 50 Output Total 1080 710 60 Balance 9084.233 2400.472 -10 Intake: IV 2101 550 50 0.9 120 LR 650 Lactated Ringers 2,000 ml 100 @ 999 mls/hr IV .Q2H1M [facility] Rx#:[id number] Mvi, Adult No.4 with Vit 31 K 10 ml Trace (Conc-1Ml/ Dose) 1 ml In Amino Acid 5%-D15w+Lytes*E* 1,000 ml @ 30 mls/hr IV .Q24H [facility] Rx#:[id number] Potassium Chloride 10 meq 200 In Water For Injection 1 100ml.bag @ 100 mls/hr IVPB Q1HR [facility] Rx#: [id number] Sodium Chloride 0.9% 1, 550 50 000 ml @ 50 mls/hr IV . Q20H [facility] Rx#:[id number] Sodium Chloride 0.9% 1, 1000 000 ml @ 999 mls/hr IV . Q1H1M [facility] Rx#:[id number] Intake, IV Titration 459.310 1224.472 Amount Fluconazole in NaCl,Iso- 50 Osm 100 mg In Saline 1 50ml.bag @ 50 mls/hr IVPB DAILY [facility] Rx#:[id number] Mvi, Adult No.4 with Vit 822.5 K 10 ml Trace (Conc-1Ml/ Dose) 1 ml In Amino Acid 5%-D15w+Lytes*E* 1,000 ml @ 30 mls/hr IV .Q24H [facility] Rx#:[id number] Norepinephrine 4 mg In 0 58.972 Sodium Chloride 0.9% 250 ml @ 0.05 MCG/KG/MIN 19. 336 mls/hr IV .Q13H9M [facility] Rx#:[id number] Piperacillin-Tazobactam 3 200 .375 gm In Sodium Chloride 0.9% 100 ml @ 25 mls/hr IVPB Q8HR [facility] Rx# :[id number] propofoL 1,000 mg In 260.878 100 Empty Bag 1 bag @ Titrate IV .Q0M [facility] Rx#: [id number] Output: Gastric Drainage 350 Urine 730 710 60 Other: Voiding Method Indwelling Catheter Indwelling Catheter - Constitutional General appearance: Present: no acute distress - Gastrointestinal Gastrointestinal Comment(s): S/NT/ND incisions CDI Ostomy pink patent with some small amount of stool in bag - Labs CBC & Chem 7: 05/01/21 05:28 05/01/21 03:50 Labs: Abnormal Lab Results - Last 24 Hours (Table) 04/30/21 05/01/21 05/01/21 Range/Units 21:13 00:35 03:50 RBC (3.80-5.40) m/uL Hgb (11.4-16.0) gm/dL Hct (34.0-46.0) % RDW (11.5-15.5) % Lymphocytes # (1.0-4.8) k/uL ABG pH (7.35-7.45) ABG HCO3 (21-25) mmol/L ABG Total CO2 (19-24) mmol/L ABG O2 Saturation (94-97) % Sodium 136 L (137-145) mmol/L BUN 28 H (7-17) mg/dL Creatinine 1.18 H 1.14 H (0.52-1.04) mg/dL Glucose 143 H (74-99) mg/dL POC Glucose (mg/dL) 160 H (75-99) mg/dL Calcium 7.9 L (8.4-10.2) mg/dL Total Protein 3.9 L (6.3-8.2) g/dL Albumin 1.8 L (3.5-5.0) g/dL 05/01/21 05/01/21 05/01/21 Range/Units 04:28 05:28 05:44 RBC 2.95 L (3.80-5.40) m/uL Hgb 8.4 L D (11.4-16.0) gm/dL Hct 25.2 L (34.0-46.0) % RDW 19.9 H (11.5-15.5) % Lymphocytes # 0.7 L (1.0-4.8) k/uL ABG pH 7.48 H (7.35-7.45) ABG HCO3 32 H (21-25) mmol/L ABG Total CO2 33 H (19-24) mmol/L ABG O2 Saturation 97.3 H (94-97) % Sodium (137-145) mmol/L BUN (7-17) mg/dL Creatinine (0.52-1.04) mg/dL Glucose (74-99) mg/dL POC Glucose (mg/dL) 172 H (75-99) mg/dL Calcium (8.4-10.2) mg/dL Total Protein (6.3-8.2) g/dL Albumin (3.5-5.0) g/dL 05/01/05 05/ Range/Units 11:31 18:10 RBC (3.80-5.40) m/uL Hgb (11.4-16.0) gm/dL Hct (34.0-46.0) % RDW (11.5-15.5) % Lymphocytes # (1.0-4.8) k/uL ABG pH (7.35-7.45) ABG HCO3 (21-25) mmol/L ABG Total CO2 (19-24) mmol/L ABG O2 Saturation (94-97) % Sodium (137-145) mmol/L BUN (7-17) mg/dL Creatinine (0.52-1.04) mg/dL Glucose (74-99) mg/dL POC Glucose (mg/dL) 140 H 138 H (75-99) mg/dL Calcium (8.4-10.2) mg/dL Total Protein (6.3-8.2) g/dL Albumin (3.5-5.0) g/dL Assessment and Plan Assessment: POD#1 Ex Lap resection of sigmoid colon with end colostomy, repair of gastrotomy from dislodged peg tube, and placement of feeding J tube Plan: Cont. NGT to LIS, can start trickle feeds through j-tube as ostomy function improves. ICU care, abx per ID
[2021-05-01 23:18] LABS: Glucose,Whole Blood 143 mg/dL (75-99)
[2021-05-02] MEDS: SODIUM CHLORIDE 0.9% 1,000 ML IV SCH (07:00)
[2021-05-02 07:34] LABS: Anisocytosis Slight; Basophils % (A) 0 %; Eosinophils # (A) 0.2 k/uL (0-0.7); Eosinophils % (A) 2 %; HCT 30.8 % (34.0-46.0); HGB 9.6 gm/dL (11.4-16.0); Hypochromasia Moderate; Lymphocytes # (A) 0.7 k/uL (1.0-4.8); Lymphocytes % (A) 8 %; MCH 26.9 pg (25.0-35.0); MCHC 31.2 g/dL (31.0-37.0); MCV 86.2 fL (80.0-100.0); Mean Platelet Volume 9.4; Microcytosis Slight; Monocytes # (A) 0.4 k/uL (0-1.0); Monocytes % (A) 4 %; Neutrophils # (A) 7.8 k/uL (1.3-7.7); Neutrophils % (A) 84 %; Platelet Count 152 k/uL (150-450); Poikilocytosis Slight; RBC 3.58 m/uL (3.80-5.40); RDW 19.7 % (11.5-15.5); WBC 9.2 k/uL (3.8-10.6)
[2021-05-02] MEDS: NOREPINEPHRINE 4 MG in SODIUM CHLORIDE 0.9% 250 ML IV SCH ×2 (07:39→17:55)
[2021-05-02 07:43] LABS: Glucose,Whole Blood 138 mg/dL (75-99)
[2021-05-02] MEDS: INSULIN ASPART (NovoLOG) 100 UNIT/ML VIAL SQ SCH ×3 (07:43→17:31)
[2021-05-02 07:53] LABS: ALT <6 U/L (4-34); African American GFR (CKD) 55 (>60 ml/min/1.73 sqM); Anion Gap 3 mmol/L; Blood Urea Nitrogen 25 mg/dL (7-17); Calcium 7.9 mg/dL (8.4-10.2); Carbon Dioxide 29 mmol/L (22-30); Chloride 106 mmol/L (98-107); Glucose 128 mg/dL (74-99); Non-African American GFR(CKD) 48 (>60 ml/min/1.73 sqM); Sodium 138 mmol/L (137-145); Total Bilirubin 0.7 mg/dL (0.2-1.3); Total Protein 4.4 g/dL (6.3-8.2)
[2021-05-02 07:57] LABS: Magnesium 1.7 mg/dL (1.6-2.3); Phosphorus 3.3 mg/dL (2.5-4.5); Potassium 4.2 mmol/L (3.5-5.1)
[2021-05-02 07:58] LABS: AST 19 U/L (14-36); Alkaline Phosphatase 80 U/L (38-126)
[2021-05-02] MEDS: PANTOPRAZOLE 40 MG/10 ML VIAL IV SCH (07:58)
[2021-05-02] MEDS: FLUCONAZOLE IN NACL,ISO-OSM 100 MG in SALINE 1 50ML.BAG IVPB SCH (07:58)
[2021-05-02] MEDS: HEPARIN SODIUM,PORCINE/PF 5,000 UNIT/0.5 ML SYRINGE SQ SCH ×2 (07:58→15:56)
[2021-05-02] MEDS: LEVOTHYROXINE IVP 100 MCG/5 ML VIAL IV SCH (07:58)
[2021-05-02] MEDS: PIPERACILLIN-TAZOBACTAM 3.375 GM in SODIUM CHLORIDE 0.9% 100 ML IVPB SCH ×2 (08:35→15:56)
[2021-05-02] MEDS: NYSTATIN 100,000 UNIT/GM POWD 15 GM TOPICAL SCH (09:37)
[2021-05-02] MEDS: MAGNESIUM SULFATE-D5W PMX 1 GM in DEXTROSE/WATER 1 100ML.BAG IVPB SCH ×2 (09:39→10:42)
--- NOTE | 2021-05-02 09:47 | P.PN ---
Subjective Progress Note Date: 05/02/21 Principal diagnosis: Dislodged PEG tube, intra-abdominal sepsis, urinary tract infection with sepsis This is a 75-year-old white female patient a resident of a local [facility], who was initially admitted to the hospital on 04/15/2021 when she was brought to the hospital per EMS with altered mentation, and vomiting. Patient was receiving Rocephin for a urinary tract infection at the nursing facility and patient is known to have a history of multiple recurrent urinary tract infections and history of right ureteral stent placement. Patient at baseline is a poor historian, related to previous history of CVA and patient has left-sided weakness and expressive aphasia. Other medical history significant for hyperlipidemia, hypertension, hypothyroidism, Parkinson's disease, anxiety, depression, degenerative arthritis. Most recent urine culture from February and March 2021 showed evidence of enterococcus with multiple resistances and she was placed on vancomycin in the emergency department. CT of the abdomen and pelvis on admission showed marked right hydronephrosis, and a small left hydronephrosis similar findings on the CT of the abdomen and pelvis from 03/18/2021. Urology is following and was planning on insertion of a nephrostomy. Neurological workup showed a brain CT with chronic appearing periventricular white matter of ischemic type, which was stable. EEG showed an abnormal EEG due to the background slowing of mild to moderate degree suggestive of generalized cerebral dysfunction as seen with toxic metabolic encephalopathy and diffuse structural brain abnormality. No evidence of epileptiform activity was seen. Neurology's impression was that the altered mental status was likely due to toxic metabolic encephalopathy. Patient continued to be nauseous and vomiting and was unable to take any oral medications or oral feedings. On 04/19/2021 patient underwent EGD and PEG tube placement by Dr. Dempsey. The EGD showed no abnormalities within the stomach and duodenum. However the patient continued to have intermittent nausea and vomiting, and tube feedings were on hold and the PEG tube was connected to dependent drainage. On 04/24/2021 patient underwent cystoscopy, right retrograde pyelogram and right ureteroscopy, right ureteral stent was removed, however attempts to replace it were unsuccessful, and nephrostomy tube insertion was planned. On 04/29/2021 patient developed worsening tenderness and distention of the abdomen, she continued to have nausea with vomiting, and her leukocytosis was worsening. CT of the abdomen and pelvis on 04/29/2021 showed extravasation of the contrast from the PEG tube, with a concern of dislodged PEG tube from the stomach with a small amount of air in the peritoneum. Also there was a large stool ball and markedly distended possibly volvulized sigmoid colon. Right nephrostomy procedure was placed on hold, and patient was taken to the operating room and underwent exploratory laparotomy which was converted to open procedure, sigmoid colectomy, and creation of end colostomy and repair of gastrostomy along with placement of jejunal feeding tube. Patient was admitted to the intensive care unit following her procedure earlier this morning at around 3:00 this morning intubated and on mechanical ventilator support. This morning she is on assist-control mode of ventilation with a rate of 14, tidal vital 300, FiO2 of 60% and PEEP of 5, this morning's blood gas showed a pO2 of 219, pCO2 42, pH of 7.47, this was done on 100% FiO2 and this was subsequently dropped to 60%. She is on lactated Ringer's at 50 ML per hour, Diprivan and is at 30 ML per hour, hemodynamically she is stable, not requiring any vasopressor support, she is in sinus mechanism, blood pressure is 100/55. Her chest x-ray today has been reviewed and not showing ET tube and OG tube in appropriate posi tions, no pneumothorax, the basilar atelectasis, low lung volumes. Breasts the blood work reveals white count of 8.2, hemoglobin is 10.8, platelet count is 216, INR is 1.2, sodium is 137, potassium is 3.4, chloride is 101, CO2 is 30, BUN is 24, creatinine is 1.14. Patient's urine output has been quite poor, and she has only produced 35 mL of urine overnight. Current antibiotic coverage includes Diflucan and Zosyn for evidence of enterococcus faecium in the urine, and Fani albicans in the urine culture on urine culture from 04/20/2021. ID service is following. On 05/01/2021 patient seen in follow-up in the intensive care unit. She remains sedated, and intubated on mechanical ventilator, she is currently on assist control mode of ventilation with a rate of 14, tidal volume 300, FiO2 of 40% and PEEP of 5. This morning his blood gases show pO2 of 93, pCO2 43, and pH of 7.48 and this was done on FiO2 of 50% and it has since been dropped to 40%. She is currently on Diprivan at 40 mics per kilo per minute, lactated Ringer's at 100 ML per hour, 0.9 was seen at 20 ML per hour. Levofed is at 2 mics per minute. Patient was started on TPN yesterday which is infusing at 30 ML per hour, patient's urine output has improved in the last 24 hours and responds to IV fluids and one dose of Lasix was given yesterday in the afternoon. However she received significant amount of IV fluid boluses, and she is in positive net fluid balance of 4.3 L or last 24 hours. Patient has significant generalized edema. This morning's chest x-ray is pending, this morning's labs have been reviewed showing white blood cell count of 7.1, hemoglobin of 8.4, platelet count is 179, sodium is 136, the rest of the electrolytes are unremarkable, BUN is 28 creatinine is 1.14. She is currently in sinus mechanism with a rate of 89 BPM, no arrhythmias overnight, lung sounds are clear, abdomen is soft, did not incision is clean dry and intact, left upper quadrant colostomy and placed on a to produce small amount of liquid yellowish colored stool, right upper quadrant J-tube in place, and patient has not been initiated on not tube feedings yet. Overall hemodynamically she is stable, minimal amount of pressors, urine output is improving, renal profile is stable, FiO2 requirement is 40%, urology is following, and patient is being considered for nephrostomy tube however this has not been scheduled yet. We'll proceed with spontaneous awakening trial and a spontaneous breathing trial this morning On 05/02/2021 patient seen in follow-up in intensive care unit, she was successfully weaned and next visit for mechanical ventilator yesterday on 05/01/2021. This morning she is resting in bed, she is lethargic, she does not open eyes to command, does not follow any commands, she is currently just on 2 L of oxygen with a pulse ox of 96%, does not appear to be in any respiratory distress, does withdraw from pain. She is currently on 0.9 normal saline at a rate of 50 ML per hour, TPN is at 30 ML per hour, still has a leave of fed infusing at 2 mics per minute. Patient appears to be quite generally fluid overloaded, with extensive edema involving her upper and lower extremities. Lung sounds are positive for minimal wheezes, no rhonchi. Today's chest x-ray reveals central venous congestion, and possibility of left pleural effusion. We'll cut back IV fluids to KVO. Remains on antibiotics in the form of Zosyn and Diflucan. She's been afebrile. Abdomen is soft, and her colostomy is putting out yellow semi-liquid stool. G-tube is in place, however tube feedings have not been started yet, patient has been on TPN. Apparently patient has also passed a bowel movement per rectum. There are positive bowel sounds. Labs have been reviewed showing white blood cell count of 9.2, hemoglobin of 9.6, platelet count is 152, lites are within normal limits, B1 of 25 creatinine was 1.13, these were within normal limits. Urine output been in the order of 50-60 ML per hour. And patient has produced 2.1 L in urine output over last 24 hours, and she is visiting positive net fluid balance of 400 mL over last 24 hours. Objective - Vital Signs Vital signs: Vital Signs Temp 99.5 F 05/02/21 08:00 Pulse 112 H 05/02/21 09:00 Resp 19 05/02/21 09:00 BP 125/57 05/02/21 09:00 Pulse Ox 92 L 05/02/21 09:00 Intake & Output 05/01/21 05/02/21 05/02/21 18:59 06:59 18:59 Intake Total 1781.472 795.028 154.06 Output Total 710 1460 646 Balance 1071.472 -664.972 -491.94 Intake: IV 550 600 150 Sodium Chloride 0.9% 1, 550 600 150 000 ml @ 50 mls/hr IV . Q20H [facility] Rx#:[id number] Intake, IV Titration 1231.472 195.028 4.06 Amount Fluconazole in NaCl,Iso- 50 Osm 100 mg In Saline 1 50ml.bag @ 50 mls/hr IVPB DAILY [facility] Rx#:[id number] Mvi, Adult No.4 with Vit 822.5 K 10 ml Trace (Conc-1Ml/ Dose) 1 ml In Amino Acid 5%-D15w+Lytes*E* 1,000 ml @ 30 mls/hr IV .Q24H [facility] Rx#:[id number] Norepinephrine 4 mg In 58.972 195.028 4.06 Sodium Chloride 0.9% 250 ml @ 0.05 MCG/KG/MIN 19. 336 mls/hr IV .Q13H9M [facility] Rx#:[id number] Piperacillin-Tazobactam 3 200 .375 gm In Sodium Chloride 0.9% 100 ml @ 25 mls/hr IVPB Q8HR [facility] Rx# :[id number] propofoL 1,000 mg In 100 Empty Bag 1 bag @ Titrate IV .Q0M [facility] Rx#: [id number] Output: Gastric Drainage 450 300 Urine 710 1010 345 Stool 1 Other: Voiding Method Indwelling Catheter Indwelling Catheter Indwelling Catheter # Voids 4 - Exam GENERAL EXAM: Lethargic, 75-year-old white female, on 2 L of oxygen with pulse ox of 97%, breathing spontaneously, comfortably, however patient is obtunded, does not follow command, does not open eyes to voice, withdraws from pain HEAD: Normocephalic/atraumatic. EYES: Normal reaction of pupils, equal size. Conjunctiva pink, sclera white. NOSE: Clear with pink turbinates. THROAT: No erythema or exudates. NECK: No masses, no JVD, no thyroid enlargement, no adenopathy. CHEST: No chest wall deformity. Symmetrical expansion. LUNGS: Equal air entry with no crackles, wheeze, rhonchi or dullness. CVS: Regular rate and rhythm, normal S1 and S2, no gallops, no murmurs, no rubs ABDOMEN: Soft, nontender. No hepatosplenomegaly, normal bowel sounds, no guarding or rigidity. Mid abdominal incision clean dry and intact, covered with surgical dressing, epigastric jejunostomy tube in place, insertion site clean dry intact, left upper quadrant colostomy, with a small amount of liquid yellow stool EXTREMITIES: No clubbing, no edema, no cyanosis, 2+ pulses and upper and lower extremities. MUSCULOSKELETAL: Muscle strength and tone normal. SPINE: No scoliosis or deformity SKIN: No rashes CENTRAL NERVOUS SYSTEM: Lethargic. No focal deficits, tone is normal in all 4 extremities. - Labs CBC & Chem 7: 05/02/21 07:14 05/02/21 07:14 Labs: Abnormal Lab Results - Last 24 Hours (Table) 05/01/21 05/01/21 05/01/21 Range/Units 05:28 11:31 18:10 RBC (3.80-5.40) m/uL Hgb (11.4-16.0) gm/dL Hct (34.0-46.0) % RDW (11.5-15.5) % Neutrophils # (1.3-7.7) k/uL Lymphocytes # 0.7 L (1.0-4.8) k/uL BUN (7-17) mg/dL Creatinine (0.52-1.04) mg/dL Glucose (74-99) mg/dL POC Glucose (mg/dL) 140 H 138 H (75-99) mg/dL Calcium (8.4-10.2) mg/dL Total Protein (6.3-8.2) g/dL Albumin (3.5-5.0) g/dL 05/01/21 05/02/21 05/02/21 Range/Units 23:15 07:14 07:14 RBC 3.58 L (3.80-5.40) m/uL Hgb 9.6 L (11.4-16.0) gm/dL Hct 30.8 L (34.0-46.0) % RDW 19.7 H (11.5-15.5) % Neutrophils # 7.8 H (1.3-7.7) k/uL Lymphocytes # 0.7 L (1.0-4.8) k/uL BUN 25 H (7-17) mg/dL Creatinine 1.13 H (0.52-1.04) mg/dL Glucose 128 H (74-99) mg/dL POC Glucose (mg/dL) 143 H (75-99) mg/dL Calcium 7.9 L (8.4-10.2) mg/dL Total Protein 4.4 L (6.3-8.2) g/dL Albumin 2.0 L (3.5-5.0) g/dL 05/02/21 Range/Units 07:41 RBC (3.80-5.40) m/uL Hgb (11.4-16.0) gm/dL Hct (34.0-46.0) % RDW (11.5-15.5) % Neutrophils # (1.3-7.7) k/uL Lymphocytes # (1.0-4.8) k/uL BUN (7-17) mg/dL Creatinine (0.52-1.04) mg/dL Glucose (74-99) mg/dL POC Glucose (mg/dL) 138 H (75-99) mg/dL Calcium (8.4-10.2) mg/dL Total Protein (6.3-8.2) g/dL Albumin (3.5-5.0) g/dL Assessment and Plan Plan: Assessment: #1. Displaced PEG tube with gastrostomy, with small pneumoperitoneum, sigmoid volvulus and fecal impaction, status post exploratory laparotomy, sigmoid colectomy, creation of end colostomy and repair of the gastrotomy along with placement of a jejunal feeding tube, postoperative day #2 #2. Hypotension, related to hypovolemia, and sepsis, related to intra-abdominal sepsis related to gastric perforation and urinary tract infection #3. Severe right hydronephrosis, and to a lesser degree left hydronephrosis, urology is following, creatinine is stable, urine output has improved, and nephrostomy placement is on hold right now #4. History of right hydronephrosis with placement of right ureteral stent placement in December 2020 and subsequent removal on April 24 2021, with unsuccessful attempt to place another ureteral stent, awaiting nephrostomy tube placement #5. Acute kidney injury related to the hydronephrosis, and ATN #6. Acute urinary tract infection related to Enterococcus faecalis and Fani albicans #7. History Of multiple recurrent urinary tract infections, with urine cultures positive for enterococcus species #8. Altered mental status related to acute toxic and metabolic encephalopathy #9. 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 History of Parkinson's disease on Sinemet #11. Severe nausea and vomiting, poor oral intake, status post PEG tube placement on 04/19/2021, with subsequent removal related to dislodgment and J- tube placement on 04/29/2021 #12. History of constipation with fecal impaction #13. Chronic kidney disease stage II #14. Chronic congestive heart failure with diastolic dysfunction #15. Hypertension #16. Hyperlipidemia #17. Hypothyroidism #18. Anxiety and depression Plan: Patient has been weaned and extubated yesterday Tolerating extubation well so far Maintain aspiration precautions, patient still pretty lethargic Maintain status nothing by mouth Cutback to maintenance IV fluids to KVO Wean norepinephrine Todays chest x-ray has been reviewed Showing changes of fluid overload, left pleural effusion We may consider a dose of Lasix Urine output has improved Colostomy is functioning, bowel sounds are present Surgery's input in regards to starting of tube feedings Continue TPN for now Continue Zosyn and Diflucan Discussed case with urology, nephrostomy placement is on hold right now, renal profile is stable, urine output has improved GI and DVT prophylaxis Continue to closely follow in the intensive care unit I performed a history & physical examination of the patient and discussed their management with my nurse practitioner, Asha Novoa. I reviewed the nurse practitioner's note and agree with the documented findings and plan of care. Lung sounds are positive for diminished breath sounds throughout the lung rose. The findings and the impression was discussed with the patient. I attest to the documentation by the nurse practitioner. Time with Patient: Greater than 30
--- NOTE | 2021-05-02 10:14 | XR ---
EXAMINATION TYPE: XR chest 1V portable DATE OF EXAM: 05/02/2021 COMPARISON: NONE HISTORY: acute resp failure TECHNIQUE: Single frontal view of the chest is obtained. FINDINGS: NG tube and left-sided central line noted. There is subsegmental consolidation of both juan g bases. No sizable pleural effusion. No pneumothorax. Arthropathy of the left shoulder. Surgical sta ples noted. IMPRESSION: 1. Bilateral infiltrate stable.
[2021-05-02] MEDS ORDERED: FUROSEMIDE 10 MG/ML 4 ML VIAL IV STA (10:31)
[2021-05-02] MEDS: FAT EMULSION 20% 250 ML in EMPTY BAG 1 BAG IV SCH (11:09)
[2021-05-02 11:36] LABS: Glucose,Whole Blood 141 mg/dL (75-99)
--- NOTE | 2021-05-02 13:12 | P.PN ---
Subjective Progress Note Date: 05/02/21 This is a 75-year-old female with past medical history of UTI Strep agalactiae - (group b) with Pyelonephritis, severe right hydronephrosis with right ureteral stent insertion to 12/26/20,CVA with residual left-sided weakness, expressive aphasia/TIA, hyperlipidemia, hypertension, chronic renal failure, hypo thyroidism, obesity, anxiety, bipolar, depression, former nicotine dependence presented to the ER via EMS for [facility] with reports that patient had mental status changes, combative over the last few days with an episode of vomiting. Patient's baseline is chronic residual left-sided weakness from prior CVA with expressive aphasia. Patient currently nonverbal, rigid, posturing, attempting to communicate with blinking of right eye. Febrile, T-max 100.3, WBC 13.1 yesterday down to 7.9. Maintained on vancomycin. Hemoglobin 8, platelets 217, glucose 104, potassium 2.8, magnesium 1.4 both being supplemented. Sodium 140, BUN 9, creatinine 0.73. Lactic acid 0.8. UA reporting urine WBCs 21, large leukocytes 1+ ketones. EKG reported normal sinus rhythm, left ventricular hypertrophy, chest x-ray reporting bibasilar atelectasis/subsegmental consolidation. Baca virus not detected. 04/18/[address] reported chronic appearing periventricular white matter ischemic type changes, stable .evaluated by neurology who attributes clinical presentation to suspected severe Parkinsonian from not having Sinemet for a few days. PEG tube placement pending .maintained on IV fluid hydration. Remains encephalopathic,more alert today, minimally conversing, not following commands. EEG/EMG completed, results pending T-max 99.9, normal WBC. Urine culture reporting enterococcus faecium.preliminary blood cultures reporting no growth at 48 hours Continues on vancomycin, creatinine 0.68. Hemoglobin 8.5, platelets 171. Potassium 3.2, magnesium 2.2. 04/21/2021 maintain IV fluid hydration. Lethargic, nausea and vomiting reported after meds administered via PEG-therefore has not received Sinemet yet today. Urology reconsult regarding cystoscopy for hydronephrosis. Impacted, fleets jermaine mas/disimpaction ordered. PICC line ordered for TPN, as patient has been without nutrition for several days prior to admission and has not been able to be started on PEG tube feedings. Afebrile. 04/22/2021 more alert, received Sinemet yesterday and this morning, no nausea vomiting. We'll reattempt tube feeds via PEG tube -if unable to tolerate then we'll proceed with PICC line and TPN. Received one fleets enema with small stool and reported. Potassium 2.8, receiving supplementation, magnesium 1.8. Urine remains cloudy. Evaluated by urology and scheduled for surgery/potential cystoscopy/right ureteral stent removal/8 ureteroscopy/possible replacement of stent on 04/24/2021. 04/23/2021 large bowel movement last night. Reports diffuse abdominal pain. Tolerating tube feeds at 40 MLS per hour/Goal of 55 with minimal to no residuals, no nausea or vomiting. Continues on vancomycin. Scheduled for cystoscopy tomorrow with right ureteral stent exchange. Afebrile. 04/24/2021 Recently returned from cystoscopy, verbal report of stent exchange- multiple attempts. Currently sedated, opens eyes and falls back asleep. 04/25/2021 postop day #1 from cystoscopy. Procedure note reports right ureteral stent removed, multiple attempts made to identify the triple-lumen unable to identify, contrast injected but did not pass into the renal pelvis, multiple attempts made to advance Glidewire-unsuccessful, and procedure was terminated. Bueno catheter with yellow urine with sediment. Patient sleepy but continues to complain of pain, attempting to use communication board. Afebrile, BMP pending. 04/26/2021: Patient is postop day 2 cystoscopy with removal of ureteral stent. There were unable to put another stent in. A urostomy tube is recommended if she continues to have problems per urology. She remains afebrile, blood pressure heart rate and restaurant rate remained stable. Infectious disease, urology and neurology are following. Their notes were reviewed today. Electrolytes are stable. Sugar slightly elevated before breakfast and 156. She large bowel movement last night. She is noted to have elevated TSH at 6.27. She remains on Synthroid of 150 g daily. She remains on vancomycin for her complicated UTI. Diflucan and added. Chillier self this morning is somnolent, but arousable. She can she's tired. She denies any other complaints when specifically asked. She continues to have significant upper extremity edema, most likely from the IV fluids she was on. Her tube feedings are currently at goal at 55 mL per hour. 04/27/2021: Patient status postop day #3 cystoscopy and ureteral stent removal. New stent could not be placed. Urology is following. They're considering a right-sided nephrostomy tube if her right lower quadrant pain is not resolved. Today she complains of right lower quadrant pain. She currently denies any nausea vomiting, chest pains, pressures, shortness of breath. She is nothing by mouth still. She remains afebrile, heart rate restaurant rate and blood pressure remained stable. Pulse oximetry remained stable. Hemoglobin this morning was 7.0. MCV is 86.7. Glucose remained fairly well controlled. She remains on vancomycin and Diflucan for a complicated UTI. Infectious disease is following. 04/28/2021 complains of right lower quadrant pain. Denies nausea. Renal function stable, BUN 15, creatinine 0.74. Afebrile, WBC 13.52. Hemoglobin 9.1, platelets 147. Blood sugars controlled. 04/29/2021 Tube feeds have remained off since Wednesday evening, positive for nausea vomiting last night, none this morning. Abdomen more distended, hypo- active bowel sounds. Diffuse tenderness.Positive bowel movement yesterday. Urology recommended no nephrostomy at this time , following closely with surgery. Surgery updated, recommending PEG tube be placed to gravity with a Bueno-initial flatus, trace dark brown drainage. Potassium 3.1. Afebrile, CBC pending. 04/30/2021 Yesterday WBC worsened, abdomen more distended .KUB and reported high-grade bowel obstruction, contrast within the stomach, vague density left upper quadrant, possible extravasation.CT of abdomen and pelvis completed yesterday reported high attenuation material from gastrostomy tube injection, contrast and peritoneal cavity around the spleen and liver in the upper abdomen, small pneumoperitoneum, gastrostomy tube did not appear to be in the stomach, multiple left-sided renal parapelvic cyst, moderate bilateral hydronephrosis on the right side, large parapelvic cyst, rectal fecal impaction with dilated large bowel and dilated small bowel, mechanical bowel obstruction, bilateral pleural effusions and basilar infiltrates and atelectasis, appears worse. Patient proceeded with exploratory laparotomy, converted to open procedure sigmoid gonzalo ctomy and creation of end colostomy and repair of gastrostomy along with placement of jejunal feeding tube. Returned to ICU, intubated, currently FiO2 50%, PEEP +5. Borderline hypotension ,maintained on IV fluid hydration of LR at 50 miles per hour, diprovan. Renal function mildly worsening, BUN 24, creatinine 1.14. Marginal urine output. Chest x-ray reported cardiomegaly and basilar atelectasis and small right pleural effusion. Continues on Diflucan and Zosyn as per ID. Telemetry sinus rhythm. Afebrile, normal WBC. Hemoglobin 10.8, platelets 216, INR 1.2, potassium 3.4, magnesium 2.1. 05/01/2021 remains on mechanical ventilation, FiO2 down to 40%/+5 of PEEP. Sedated on diprovan. Spontaneous Breathing trials being discussed. Diprovan recently weaned off, slowly waking up, discussing attempting CPAP trial. Significant endotracheal page secretions. Telemetry sinus rhythm 24-hour I&O reflecting a positive fluid balance ; received aggressive fluid boluses/resuscitation, required initiation of Levophed last night, currently on 2 mics. Chest x-ray reporting diffuse interstitial pattern with bilateral infiltrates, small effusion, venous congestion. Received a dose of Lasix ye sterday. Urine output improving. Renal function stable. PICC line placed yesterday with TPN initiated. Afebrile, normal WBC. Hemoglobin 8.4, platelets 179, sodium 136, potassium 3.9, magnesium 1.9, albumin 1.8. 05/02/2021 extubated yesterday, maintaining O2 sats in the 90s on 2 L nasal cannula. Borderline hypotension, continues on Levophed, currently 2 mics. Maintained on gentle IV fluid hydration, TPN, Zosyn and Diflucan. Large bowel movement rectally in addition to colostomy with loose stool. 24-hour I&O reflecting a positive fluid balance. Renal function stable Trickling of tube f eeds initiated. T-max 99.5, normal WBC. Hemoglobin 9.6, platelets 152. Objective - Vital Signs Vital signs: Vital Signs Temp 99.5 F 05/02/21 08:00 Pulse 85 05/02/21 11:00 Resp 17 05/02/21 11:00 BP 88/51 05/02/21 11:00 Pulse Ox 99 05/02/21 11:00 Intake & Output 05/01/21 05/02/21 05/02/21 18:59 06:59 18:59 Intake Total 1781.472 795.028 203.728 Output Total 710 1460 802 Balance 1071.472 -664.972 -598.272 Intake: IV 550 600 190 Sodium Chloride 0.9% 1, 550 600 190 000 ml @ 20 mls/hr IV . Q24H [facility] Rx#:[id number] Intake, IV Titration 1231.472 195.028 13.728 Amount Fluconazole in NaCl,Iso- 50 Osm 100 mg In Saline 1 50ml.bag @ 50 mls/hr IVPB DAILY [facility] Rx#:[id number] Mvi, Adult No.4 with Vit 822.5 K 10 ml Trace (Conc-1Ml/ Dose) 1 ml In Amino Acid 5%-D15w+Lytes*E* 1,000 ml @ 30 mls/hr IV .Q24H [facility] Rx#:[id number] Norepinephrine 4 mg In 58.972 195.028 13.728 Sodium Chloride 0.9% 250 ml @ 0.05 MCG/KG/MIN 19. 336 mls/hr IV .Q13H9M [facility] Rx#:[id number] Piperacillin-Tazobactam 3 200 .375 gm In Sodium Chloride 0.9% 100 ml @ 25 mls/hr IVPB Q8HR [facility] Rx# :[id number] propofoL 1,000 mg In 100 Empty Bag 1 bag @ Titrate IV .Q0M [facility] Rx#: [id number] Output: Gastric Drainage 450 300 Urine 710 1010 500 Stool 2 Other: Voiding Method Indwelling Catheter Indwelling Catheter Indwelling Catheter # Voids 4 - Exam - Exam General: Obtunded, sitting up in bed, extubated, no acute distress. HEENT: PERRL. EOMI. conjunctivae normal Neck: Supple, no JVD. Cardiac: Heart regular in rate and rhythm. No S3. No S4. No clicks, rubs. No murmur. Lungs: Clear breath sounds, no rhonchi, crackles, or wheezes,bilateral bases diminished. Abdomen: soft,distended, status post surgery, hypoactive bowel sounds. jejunal tube with loose stool present. Midline Abdominal dressing clean dry and intact. Extremities: Significant Positive edema of all extremities, normal pulses. Skin: Warm and dry, Neurologic: unable to assess, obtunded, withdraws from noxious stimuli. - Labs CBC & Chem 7: 05/02/21 07:14 05/02/21 07:14 Labs: Abnormal Lab Results - Last 24 Hours (Table) 05/01/21 05/01/21 05/01/21 Range/Units 05:28 18:10 23:15 RBC (3.80-5.40) m/uL Hgb (11.4-16.0) gm/dL Hct (34.0-46.0) % RDW (11.5-15.5) % Neutrophils # (1.3-7.7) k/uL Lymphocytes # 0.7 L (1.0-4.8) k/uL BUN (7-17) mg/dL Creatinine (0.52-1.04) mg/dL Glucose (74-99) mg/dL POC Glucose (mg/dL) 138 H 143 H (75-99) mg/dL Calcium (8.4-10.2) mg/dL Total Protein (6.3-8.2) g/dL Albumin (3.5-5.0) g/dL 05/02/21 05/02/21 05/02/21 Range/Units 07:14 07:14 07:41 RBC 3.58 L (3.80-5.40) m/uL Hgb 9.6 L (11.4-16.0) gm/dL Hct 30.8 L (34.0-46.0) % RDW 19.7 H (11.5-15.5) % Neutrophils # 7.8 H (1.3-7.7) k/uL Lymphocytes # 0.7 L (1.0-4.8) k/uL BUN 25 H (7-17) mg/dL Creatinine 1.13 H (0.52-1.04) mg/dL Glucose 128 H (74-99) mg/dL POC Glucose (mg/dL) 138 H (75-99) mg/dL Calcium 7.9 L (8.4-10.2) mg/dL Total Protein 4.4 L (6.3-8.2) g/dL Albumin 2.0 L (3.5-5.0) g/dL 05/02/21 Range/Units 11:35 RBC (3.80-5.40) m/uL Hgb (11.4-16.0) gm/dL Hct (34.0-46.0) % RDW (11.5-15.5) % Neutrophils # (1.3-7.7) k/uL Lymphocytes # (1.0-4.8) k/uL BUN (7-17) mg/dL Creatinine (0.52-1.04) mg/dL Glucose (74-99) mg/dL POC Glucose (mg/dL) 141 H (75-99) mg/dL Calcium (8.4-10.2) mg/dL Total Protein (6.3-8.2) g/dL Albumin (3.5-5.0) g/dL Assessment and Plan Assessment: Displaced PEG tube with extravasation of contrast and free air, sigmoid volvulus, fecal impaction, status post exploratory laparotomy, sigmoid colectomy, creation of end colostomy and repair of gastrostomy, jejunal feeding tube placement. Acute hypoxic respiratory failure, status/ post mechanical ventilator-dependent Hypovolemic hypotension Acute renal failure, ATN ,secondary to the above and hydronephrosis Possible sepsis,multifactorial, including multiple comorbidities ,complicated acute UTI ,severe right-sided hydronephrosis with right stent removal this admission,and #1, not present on admission. Acute toxic, metabolic encephalopathy,brain CT reported no acute infarcts, chronic stable changes, in a patient with history of CVA, possibly secondary to lack of Sinemet, levels ordered, suspect severe parkinsonism,Neurology following. Acute UTI, enterococcus faecium, in a patient with history of recurrent UTIs, recent acute UTI with Enterobacter aerogenes, complicated with bilateral hydronephrosis Bilateral hydronephrosis,no change in the right-sided hydronephrosis. Right ureteral stent insertion 01/06/21, obstruction of UPJ-status post cystoscopy with right stent removed, unable to replace. Nephrostomy pending. 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 Hypothyroidism Bipolar disorder Obesity, BMI 36 Normocytic anemia Status post PICC line with initiation of TPN Plan: Continue on current medication regime ,monitoring and symptomatic treatment. Obtunded, resume Sinemet.IV antibiotics as per ID. IV fluids decreased.ICU management as per racquet maker.Prognosis guarded given multiple complex medical issues. The impression and plan of care has been dictated as directed. : I performed a history and examination of this patient, discussed the same with the dictator. I agree with the dictator's note ,documented as a scribe. Any additional findings or plans will be noted.
[2021-05-02] MEDS: CARBIDOPA-LEVODOPA 25-100 MG 1 EACH TAB PO SCH ×3 (13:59→21:26)
--- NOTE | 2021-05-02 13:59 | P.PN ---
Subjective Progress Note Date: 05/02/21 resting comfortably in bed Objective - Vital Signs Vital signs: Vital Signs Temp 99.4 F 05/02/21 12:00 Pulse 89 05/02/21 13:00 Resp 22 05/02/21 13:00 BP 91/67 05/02/21 13:00 Pulse Ox 98 05/02/21 13:00 Intake & Output 05/01/21 05/02/21 05/02/21 18:59 06:59 18:59 Intake Total 1781.472 795.028 493.728 Output Total 710 1460 1377 Balance 1071.472 -664.972 -883.272 Weight 101.5 kg Intake: IV 550 600 230 Sodium Chloride 0.9% 1, 550 600 230 000 ml @ 20 mls/hr IV . Q24H [facility] Rx#:[id number] Intake, IV Titration 1231.472 195.028 213.728 Amount Fluconazole in NaCl,Iso- 50 Osm 100 mg In Saline 1 50ml.bag @ 50 mls/hr IVPB DAILY [facility] Rx#:[id number] Magnesium Sulfate-D5w Pmx 200 1 gm In Dextrose/Water 1 100ml.bag @ 100 mls/hr IVPB Q1H [facility] Rx#: [id number] Mvi, Adult No.4 with Vit 822.5 K 10 ml Trace (Conc-1Ml/ Dose) 1 ml In Amino Acid 5%-D15w+Lytes*E* 1,000 ml @ 30 mls/hr IV .Q24H [facility] Rx#:[id number] Norepinephrine 4 mg In 58.972 195.028 13.728 Sodium Chloride 0.9% 250 ml @ 0.05 MCG/KG/MIN 19. 336 mls/hr IV .Q13H9M [facility] Rx#:[id number] Piperacillin-Tazobactam 3 200 .375 gm In Sodium Chloride 0.9% 100 ml @ 25 mls/hr IVPB Q8HR [facility] Rx# :[id number] propofoL 1,000 mg In 100 Empty Bag 1 bag @ Titrate IV .Q0M [facility] Rx#: [id number] Tube Feeding 20 Other 30 Output: Gastric Drainage 450 300 Urine 710 1010 1075 Stool 2 Other: Voiding Method Indwelling Catheter Indwelling Catheter Indwelling Catheter # Voids 4 - Constitutional General appearance: Present: no acute distress - Gastrointestinal Gastrointestinal Comment(s): S/NT/NT incisions CDI Ostomy pink and patent with stool in bag - Labs CBC & Chem 7: 05/02/21 07:14 05/02/21 07:14 Labs: Abnormal Lab Results - Last 24 Hours (Table) 05/01/21 05/01/21 05/02/21 Range/Units 18:10 23:15 07:14 RBC (3.80-5.40) m/uL Hgb (11.4-16.0) gm/dL Hct (34.0-46.0) % RDW (11.5-15.5) % Neutrophils # (1.3-7.7) k/uL Lymphocytes # (1.0-4.8) k/uL BUN 25 H (7-17) mg/dL Creatinine 1.13 H (0.52-1.04) mg/dL Glucose 128 H (74-99) mg/dL POC Glucose (mg/dL) 138 H 143 H (75-99) mg/dL Calcium 7.9 L (8.4-10.2) mg/dL Total Protein 4.4 L (6.3-8.2) g/dL Albumin 2.0 L (3.5-5.0) g/dL 05/02/21 05/02/21 05/02/21 Range/Units 07:14 07:41 11:35 RBC 3.58 L (3.80-5.40) m/uL Hgb 9.6 L (11.4-16.0) gm/dL Hct 30.8 L (34.0-46.0) % RDW 19.7 H (11.5-15.5) % Neutrophils # 7.8 H (1.3-7.7) k/uL Lymphocytes # 0.7 L (1.0-4.8) k/uL BUN (7-17) mg/dL Creatinine (0.52-1.04) mg/dL Glucose (74-99) mg/dL POC Glucose (mg/dL) 138 H 141 H (75-99) mg/dL Calcium (8.4-10.2) mg/dL Total Protein (6.3-8.2) g/dL Albumin (3.5-5.0) g/dL Assessment and Plan Assessment: POD#2 Ex Lap resection of sigmoid colon with end colostomy, repair of gastrotomy from dislodged peg tube, and placement of feeding J tube Plan: Cont. NGT to LIS, can start trickle feeds through j-tube as ostomy function improves. ICU care, abx per ID
[2021-05-02] MEDS: MVI, ADULT NO.4 WITH VIT K 10 ML, TRACE (CONC-1ML/DOSE) 1 ML in AMINO ACID 5%-D15W+LYTE... IV SCH ×3 (15:57)
[2021-05-02 17:33] LABS: Glucose,Whole Blood 127 mg/dL (75-99)
--- NOTE | 2021-05-02 18:51 | PN ---
PROGRESS NOTE DATE OF SERVICE: 05/02/2021 REASON FOR FOLLOWUP: 1. Perforated abdomen from PEG tube. 2. Ischemic colitis. INTERVAL HISTORY: The patient is afebrile. The patient has been extubated. The patient is hemodynamically stable not on pressor support. The patient is currently on room air. The patient has been lethargic, unable to provide any history. No vomiting has been reported. The patient did have ( ) in her colostomy bag as well as ( ). PHYSICAL EXAMINATION: Blood pressure 102/56, pulse 89, temperature 98. She is 99% on room air. General description is an elderly female lying in bed in no distress. Respiratory system: Unlabored breathing, decreased breath sounds, no wheeze. Heart: S1, S2. Regular rate and rhythm. Abdomen soft, no tenderness. LABS: Hemoglobin 9, white count of 9.2, BUN of 25, creatinine 1.13. DIAGNOSTIC IMPRESSION AND PLAN: Patient with sigmoid volvulus and ischemic colon status post sigmoid colectomy and diverting colostomy. Also, had perforation of the stomach from the PEG tube. The patient is currently on Zosyn and Diflucan, to continue. White count normalized and continue supportive care. MMODL / IJN: [id number] /
[2021-05-02] MEDS ORDERED: ACETAMINOPHEN IV (For NPO) 1,000 MG in EMPTY BAG 1 BAG IVPB PRN (22:34)
[2021-05-03] MEDS: PIPERACILLIN-TAZOBACTAM 3.375 GM in SODIUM CHLORIDE 0.9% 100 ML IVPB SCH ×4 (00:30→23:54)
[2021-05-03] MEDS: HEPARIN SODIUM,PORCINE/PF 5,000 UNIT/0.5 ML SYRINGE SQ SCH ×4 (00:30→23:54)
[2021-05-03 00:36] LABS: Glucose,Whole Blood 146 mg/dL (75-99)
[2021-05-03] MEDS: INSULIN ASPART (NovoLOG) 100 UNIT/ML VIAL SQ SCH ×5 (00:42→23:55)
[2021-05-03 05:17] LABS: Anisocytosis Slight; Basophils % (A) 0 %; Eosinophils # (A) 0.1 k/uL (0-0.7); Eosinophils % (A) 2 %; Hypochromasia Moderate; Lymphocytes # (A) 0.4 k/uL (1.0-4.8); Lymphocytes % (A) 13 %; MCH 28.3 pg (25.0-35.0); MCHC 32.6 g/dL (31.0-37.0); Mean Platelet Volume 8.6; Monocytes # (A) 0.2 k/uL (0-1.0); Monocytes % (A) 5 %; Neutrophils # (A) 2.6 k/uL (1.3-7.7); Neutrophils % (A) 79 %; Platelet Count 129 k/uL (150-450); Poikilocytosis Slight; RBC 2.76 m/uL (3.80-5.40); RDW 19.5 % (11.5-15.5); WBC 3.3 k/uL (3.8-10.6)
[2021-05-03 05:27] LABS: HGB 7.8 gm/dL (11.4-16.0)
[2021-05-03 05:36] LABS: Calcium 7.7 mg/dL (8.4-10.2); Magnesium 1.9 mg/dL (1.6-2.3); Phosphorus 3.3 mg/dL (2.5-4.5); Potassium 2.8 mmol/L (3.5-5.1)
[2021-05-03 05:59] LABS: Glucose,Whole Blood 140 mg/dL (75-99)
[2021-05-03] MEDS: POTASSIUM CHLORIDE 20 MEQ in WATER FOR INJECTION 1 100ML.BAG IVPB SCH ×3 (06:59→12:18)
[2021-05-03] MEDS: NOREPINEPHRINE 4 MG in SODIUM CHLORIDE 0.9% 250 ML IV SCH ×2 (09:05→20:34)
[2021-05-03] MEDS: FLUCONAZOLE IN NACL,ISO-OSM 100 MG in SALINE 1 50ML.BAG IVPB SCH (09:09)
[2021-05-03] MEDS: FAT EMULSION 20% 250 ML in EMPTY BAG 1 BAG IV SCH (09:09)
[2021-05-03] MEDS: PANTOPRAZOLE 40 MG/10 ML VIAL IV SCH (09:09)
[2021-05-03] MEDS: LEVOTHYROXINE IVP 100 MCG/5 ML VIAL IV SCH (09:09)
[2021-05-03] MEDS: CARBIDOPA-LEVODOPA 25-100 MG 1 EACH TAB PO SCH ×4 (09:09→20:34)
--- NOTE | 2021-05-03 09:16 | P.PN ---
Subjective Progress Note Date: 05/03/21 Patient seen and examined at bedside. Resting comfortably. No acute events according to nursing. Objective - Vital Signs Vital signs: Vital Signs Temp 99.7 F H 05/03/21 08:00 Pulse 96 05/03/21 09:00 Resp 18 05/03/21 09:00 BP 95/46 05/03/21 09:00 Pulse Ox 96 05/03/21 09:00 Intake & Output 05/02/21 05/03/21 05/03/21 18:59 06:59 18:59 Intake Total 1335.228 450 240 Output Total 3175 1940 1250 Balance -1839.772 -1490 -1010 Weight 101.5 kg Intake: IV 330 240 160 Potassium Chloride 20 meq 100 In Water For Injection 1 100ml.bag @ 50 mls/hr IVPB Q2H [facility] Rx#: [id number] Sodium Chloride 0.9% 1, 330 240 60 000 ml @ 20 mls/hr IV . Q24H [facility] Rx#:[id number] Intake, IV Titration 875.228 Amount Magnesium Sulfate-D5w Pmx 200 1 gm In Dextrose/Water 1 100ml.bag @ 100 mls/hr IVPB Q1H [facility] Rx#: [id number] Mvi, Adult No.4 with Vit 661.5 K 10 ml Trace (Conc-1Ml/ Dose) 1 ml In Amino Acid 5%-D15w+Lytes*E* 1,000 ml @ 30 mls/hr IV .Q24H [facility] Rx#:[id number] Norepinephrine 4 mg In 13.728 Sodium Chloride 0.9% 250 ml @ 0.05 MCG/KG/MIN 19. 336 mls/hr IV .Q13H9M [facility] Rx#:[id number] Tube Feeding 70 120 50 Other 60 90 30 Output: Gastric Drainage 550 550 Urine 2375 1940 250 Stool 250 450 Other: Voiding Method Indwelling Catheter Indwelling Catheter # Voids 4 # Bowel Movements 1 - Constitutional General appearance: Present: no acute distress - Respiratory Details: No difficulty with respiration - Gastrointestinal Gastrointestinal Comment(s): Soft, midline incision site clean, dry and intact with gricelda in place, ostomy is pink and patent, J tube in place - Musculoskeletal Musculoskeletal: Present: generalized weakness - Labs CBC & Chem 7: 05/03/21 05:08 05/03/21 05:08 Labs: Abnormal Lab Results - Last 24 Hours (Table) 05/02/21 05/02/21 05/03/21 Range/Units 11:35 17:30 00:34 WBC (3.8-10.6) k/uL RBC (3.80-5.40) m/uL Hgb (11.4-16.0) gm/dL Hct (34.0-46.0) % RDW (11.5-15.5) % Plt Count (150-450) k/uL Lymphocytes # (1.0-4.8) k/uL Potassium (3.5-5.1) mmol/L BUN (7-17) mg/dL Glucose (74-99) mg/dL POC Glucose (mg/dL) 141 H 127 H 146 H (75-99) mg/dL Calcium (8.4-10.2) mg/dL 05/03/21 05/03/21 05/03/21 Range/Units 05:08 05:08 05:48 WBC 3.3 L (3.8-10.6) k/uL RBC 2.76 L (3.80-5.40) m/uL Hgb 7.8 L D (11.4-16.0) gm/dL Hct 24.0 L (34.0-46.0) % RDW 19.5 H (11.5-15.5) % Plt Count 129 L (150-450) k/uL Lymphocytes # 0.4 L (1.0-4.8) k/uL Potassium 2.8 L (3.5-5.1) mmol/L BUN 23 H (7-17) mg/dL Glucose 136 H (74-99) mg/dL POC Glucose (mg/dL) 140 H (75-99) mg/dL Calcium 7.7 L (8.4-10.2) mg/dL Assessment and Plan Plan: Postoperative, Vines's procedure and jejunostomy tube insertion - Patient's J-tube feeding is being increased 10 mL every 12 hours. Currently, patient is a 20 mL per hour and is tolerating this. - Continue nasogastric tube as patient has had recent gastrotomy repair, disc ussed with nursing to monitor output quality and quantity - Continue ICU care
[2021-05-03] MEDS: NYSTATIN 100,000 UNIT/GM POWD 15 GM TOPICAL SCH (09:29)
[2021-05-03] MEDS ORDERED: FUROSEMIDE 10 MG/ML 4 ML VIAL IV STA (10:01)
--- NOTE | 2021-05-03 10:02 | P.PN ---
Subjective Progress Note Date: 05/03/21 This is a 75-year-old white female patient a resident of a local [facility], who was initially admitted to the hospital on 04/15/2021 when she was brought to the hospital per EMS with altered mentation, and vomiting. Patient was receiving Rocephin for a urinary tract infection at the nursing facility and patient is known to have a history of multiple recurrent urinary tract infections and history of right ureteral stent placement. Patient at baseline is a poor historian, related to previous history of CVA and patient has left-sided weakness and expressive aphasia. Other medical history significant for hyperlipidemia, hypertension, hypothyroidism, Parkinson's disease, anxiety, depression, degenerative arthritis. Most recent urine culture from February and March 2021 showed evidence of enterococcus with multiple resistances and she was placed on vancomycin in the emergency department. CT of the abdomen and pelvis on admission showed marked right hydronephrosis, and a small left hydronephrosis similar findings on the CT of the abdomen and pelvis from 03/18/2021. Urology i s following and was planning on insertion of a nephrostomy. Neurological workup showed a brain CT with chronic appearing periventricular white matter of ischemic type, which was stable. EEG showed an abnormal EEG due to the background slowing of mild to moderate degree suggestive of generalized cerebral dysfunction as seen with toxic metabolic encephalopathy and diffuse structural brain abnormality. No evidence of epileptiform activity was seen. Neurology's impression was that the altered mental status was likely due to toxic metabolic encephalopathy. Patient continued to be nauseous and vomiting and was unable to take any oral medications or oral feedings. On 04/19/2021 patient underwent EGD and PEG tube placement by Dr. Dempsey. The EGD showed no abnormalities within the stomach and duodenum. However the patient continued to have intermittent nausea and vomiting, and tube feedings were on hold and the PEG tube was connected to dependent drainage. On 04/24/2021 patient underwent cystoscopy, right retrograde pyelogram and right ureteroscopy, right ureteral stent was removed, however attempts to replace it were unsuccessful, and nephrostomy tube insertion was planned. On 04/29/2021 patient developed worsening tenderness and distention of the abdomen, she continued to have nausea with vomiting, and her leukocytosis was worsening. CT of the abdomen and pelvis on 04/29/2021 showed extravasation of the contrast from the PEG tube, with a concern of dislodged PEG tube from the stomach with a small amount of air in the peritoneum. Also there was a large stool ball and markedly distended possibly volvulized sigmoid colon. Right nephrostomy procedure was placed on hold, and patient was taken to the operating room and underwent exploratory laparotomy which was converted to open procedure, sigmoid colectomy, and creation of end colostomy and repair of gastrostomy along with placement of jejunal feeding tube. Patient was admitted to the intensive care unit following her procedure earlier this morning at around 3:00 this morning intubated and on mechanical ventilator support. This morning she is on assist-control mode of ventilation with a rate of 14, tidal vital 300, FiO2 of 60% and PEEP of 5, this morning's blood gas showed a pO2 of 219, pCO2 42, pH of 7.47, this was done on 100% FiO2 and this was subsequently dropped to 60%. She is on lactated Ringer's at 50 ML per hour, Diprivan and is at 30 ML per hour, hemodynamically she is stable, not requiring any vasopressor support, she is in sinus mechanism, blood pressure is 100/55. Her chest x-ray today has been reviewed and not showing ET tube and OG tube in appropriate positions, no pneumothorax, the basilar atelectasis, low lung volumes. Breasts the blood work reveals white count of 8.2, hemoglobin is 10.8, platelet count is 216, INR is 1.2, sodium is 137, potassium is 3.4, chloride is 101, CO2 is 30, BUN is 24, creatinine is 1.14. Patient's urine output has been quite poor, and she has only produced 35 mL of urine overnight. Current antibiotic coverage includes Diflucan and Zosyn for evidence of enterococcus faecium in the urine, and Fani albicans in the urine culture on urine culture from 04/20/2021. ID service is following. On 05/01/2021 patient seen in follow-up in the intensive care unit. She remains sedated, and intubated on mechanical ventilator, she is currently on assist control mode of ventilation with a rate of 14, tidal volume 300, FiO2 of 40% and PEEP of 5. This morning his blood gases show pO2 of 93, pCO2 43, and pH of 7.48 and this was done on FiO2 of 50% and it has since been dropped to 40%. She is currently on Diprivan at 40 mics per kilo per minute, lactated Ringer's at 100 ML per hour, 0.9 was seen at 20 ML per hour. Levofed is at 2 mics per minute. Patient was started on TPN yesterday which is infusing at 30 ML per hour, patient's urine output has improved in the last 24 hours and responds to IV fluids and one dose of Lasix was given yesterday in the afternoon. However she received significant amount of IV fluid boluses, and she is in positive net fluid balance of 4.3 L or last 24 hours. Patient has significant generalized edema. This morning's chest x-ray is pending, this morning's labs have been reviewed showing white blood cell count of 7.1, hemoglobin of 8.4, platelet count is 179, sodium is 136, the rest of the electrolytes are unremarkable, BUN is 28 creatinine is 1.14. She is currently in sinus mechanism with a rate of 89 BPM, no arrhythmias overnight, lung sounds are clear, abdomen is soft, did not incision is clean dry and intact, left upper quadrant colostomy and placed on a to produce small amount of liquid yellowish colored stool, right upper quadrant J-tube in place, and patient has not been initiated on not tube feedings yet. Overall hemodynamically she is stable, minimal amount of pressors, urine output is improving, renal profile is stable, FiO2 requirement is 40%, urology is following, and patient is being considered for nephrostomy tube however this has not been scheduled yet. We'll proceed with spontaneous awakening trial and a spontaneous breathing trial this morning On 05/02/2021 patient seen in follow-up in intensive care unit, she was successfully weaned and next visit for mechanical ventilator yesterday on 05/01/2021. This morning she is resting in bed, she is lethargic, she does not open eyes to command, does not follow any commands, she is currently just on 2 L of oxygen with a pulse ox of 96%, does not appear to be in any respiratory distress, does withdraw from pain. She is currently on 0.9 normal saline at a rate of 50 ML per hour, TPN is at 30 ML per hour, still has a leave of fed infusing at 2 mics per minute. Patient appears to be quite generally fluid overloaded, with extensive edema involving her upper and lower extremities. Lung sounds are positive for minimal wheezes, no rhonchi. Today's chest x-ray reveals central venous congestion, and possibility of left pleural effusion. We'll cut back IV fluids to KVO. Remains on antibiotics in the form of Zosyn and Diflucan. She's been afebrile. Abdomen is soft, and her colostomy is putting out yellow semi-liquid stool. G-tube is in place, however tube feedings have not been started yet, patient has been on TPN. Apparently patient has also passed a bowel movement per rectum. There are positive bowel sounds. Labs have been reviewed showing white blood cell count of 9.2, hemoglobin of 9.6, platelet count is 152, lites are within normal limits, B1 of 25 creatinine was 1.13, these were within normal limits. Urine output been in the order of 50-60 ML per hour. And patient has produced 2.1 L in urine output over last 24 hours, and she is visiting positive net fluid balance of 400 mL over last 24 hours. 19 2020, the patient is being seen in follow-up in the intensive care unit. As stated earlier, the patient's back to has been removed and the patient was given a J-tube and a colostomy. She continues to have an NG tube in place. Enteral feeding was started yesterday and she is currently receiving Jevity at the rate of 20 mL an hour with a goal of 55. At the same time, the patient was started on TPN which is running at 30 mL an hour . Jevity is being gradually advanced and the goal is to get rid of the TPN with the next 24-48 hours. Meanwhile, the colostomy site is functional. Surgical with that is dry clean and intact. Output from the NG is minimal at this point in time. She is quite debilitated. She is arousable. She is having extensive edema in all 4 extremities and she was given a dose of Lasix yesterday. She remains on a combination of Zosyn and Diflucan. She is afebrile for now. On her blood work, she has a white cell, 3.3 with a hemoglobin of 7.2 at which is lower compared to yesterday. Platelet count is up to 129 ,patient's current cardiac rhythm is sinus.clinically, the patient looks around. She doesn't communicate. She grunts and moans on and off and I think that part of her baseline.patient's creatinine remains stable. The patient was given a dose of Lasix yesterday and she responded quite a bit and she has been a significant negative fluid balance of at least 3 L over the past 24 hours. Objective - Vital Signs Vital signs: Vital Signs Temp 99.7 F H 05/03/21 08:00 Pulse 96 05/03/21 09:00 Resp 18 05/03/21 09:00 BP 95/46 05/03/21 09:00 Pulse Ox 96 05/03/21 09:00 Intake & Output 05/02/21 05/03/21 05/03/21 18:59 06:59 18:59 Intake Total 1335.228 450 511 Output Total 3175 1940 1250 Balance -1839.772 -1490 -739 Weight 101.5 kg Intake: IV 330 240 431 Fat Emulsion 20% 250 ml 21 In Empty Bag 1 bag @ 21 mls/hr IV DAILY [facility] Rx#: [id number] Fluconazole in NaCl,Iso- 50 Osm 100 mg In Saline 1 50ml.bag @ 50 mls/hr IVPB DAILY [facility] Rx#:[id number] Piperacillin-Tazobactam 3 100 .375 gm In Sodium Chloride 0.9% 100 ml @ 25 mls/hr IVPB Q8HR [facility] Rx# :[id number] Potassium Chloride 20 meq 200 In Water For Injection 1 100ml.bag @ 50 mls/hr IVPB Q2H [facility] Rx#: [id number] Sodium Chloride 0.9% 1, 330 240 60 000 ml @ 20 mls/hr IV . Q24H [facility] Rx#:[id number] Intake, IV Titration 875.228 Amount Magnesium Sulfate-D5w Pmx 200 1 gm In Dextrose/Water 1 100ml.bag @ 100 mls/hr IVPB Q1H [facility] Rx#: [id number] Mvi, Adult No.4 with Vit 661.5 K 10 ml Trace (Conc-1Ml/ Dose) 1 ml In Amino Acid 5%-D15w+Lytes*E* 1,000 ml @ 30 mls/hr IV .Q24H [facility] Rx#:[id number] Norepinephrine 4 mg In 13.728 Sodium Chloride 0.9% 250 ml @ 0.05 MCG/KG/MIN 19. 336 mls/hr IV .Q13H9M [facility] Rx#:[id number] Tube Feeding 70 120 50 Other 60 90 30 Output: Gastric Drainage 550 550 Urine 2375 1940 250 Stool 250 450 Other: Voiding Method Indwelling Catheter Indwelling Catheter # Voids 4 # Bowel Movements 1 - Exam GENERAL EXAM: Lethargic, 75-year-old white female, on RA oxygen with pulse ox of 97%, breathing spontaneously, comfortably, however patient is obtunded, does not follow command, does not open eyes to voice, withdraws from pain HEAD: Normocephalic/atraumatic. EYES: Normal reaction of pupils, equal size. Conjunctiva pink, sclera white. NOSE: Clear with pink turbinates. THROAT: No erythema or exudates. NECK: No masses, no JVD, no thyroid enlargement, no adenopathy. CHEST: No chest wall deformity. Symmetrical expansion. LUNGS: Equal air entry with no crackles, wheeze, rhonchi or dullness. CVS: Regular rate and rhythm, normal S1 and S2, no gallops, no murmurs, no rubs ABDOMEN: Soft, nontender. No hepatosplenomegaly, normal bowel sounds, no guarding or rigidity. Mid abdominal incision clean dry and intact, covered with surgical dressing, epigastric jejunostomy tube in place, insertion site clean dry intact, left upper quadrant colostomy, with a small amount of liquid yellow stool EXTREMITIES: No clubbing, no edema, no cyanosis, 2+ pulses and upper and lower extremities. MUSCULOSKELETAL: Muscle strength and tone normal. SPINE: No scoliosis or deformity SKIN: No rashes CENTRAL NERVOUS SYSTEM: Lethargic. No focal deficits, tone is normal in all 4 extremities. - Labs CBC & Chem 7: 05/03/21 05:08 05/03/21 05:08 Labs: Abnormal Lab Results - Last 24 Hours (Table) 05/02/21 05/02/21 05/03/21 Range/Units 11:35 17:30 00:34 WBC (3.8-10.6) k/uL RBC (3.80-5.40) m/uL Hgb (11.4-16.0) gm/dL Hct (34.0-46.0) % RDW (11.5-15.5) % Plt Count (150-450) k/uL Lymphocytes # (1.0-4.8) k/uL Potassium (3.5-5.1) mmol/L BUN (7-17) mg/dL Glucose (74-99) mg/dL POC Glucose (mg/dL) 141 H 127 H 146 H (75-99) mg/dL Calcium (8.4-10.2) mg/dL 05/03/21 05/03/21 05/03/21 Range/Units 05:08 05:08 05:48 WBC 3.3 L (3.8-10.6) k/uL RBC 2.76 L (3.80-5.40) m/uL Hgb 7.8 L D (11.4-16.0) gm/dL Hct 24.0 L (34.0-46.0) % RDW 19.5 H (11.5-15.5) % Plt Count 129 L (150-450) k/uL Lymphocytes # 0.4 L (1.0-4.8) k/uL Potassium 2.8 L (3.5-5.1) mmol/L BUN 23 H (7-17) mg/dL Glucose 136 H (74-99) mg/dL POC Glucose (mg/dL) 140 H (75-99) mg/dL Calcium 7.7 L (8.4-10.2) mg/dL Assessment and Plan Plan: #1. Displaced PEG tube with gastrostomy, with small pneumoperitoneum, sigmoid volvulus and fecal impaction, status post exploratory laparotomy, sigmoid colectomy, creation of end colostomy and repair of the gastrotomy along with placement of a jejunal feeding tube, postoperative day #3 #2. Hypotension, related to hypovolemia, and sepsis, related to intra-abdominal sepsis related to gastric perforation and urinary tract infectionthe patient is currently on no pressors. In fact she has a component of fluid overload, third spacing/edema. #3. Severe right hydronephrosis, and to a lesser degree left hydronephrosis, urology is following, creatinine is stable, urine output has improved, and nephrostomy placement is on hold right now #4. History of right hydronephrosis with placement of right ureteral stent placement in December 2020 and subsequent removal on April 24 2021, with unsuccessful attempt to place another ureteral stent, awaiting nephrostomy tube placement #5. Acute kidney injury related to the hydronephrosis, and ATN, recovered #6. Acute urinary tract infection related to Enterococcus faecalis and Fani albicans #7. History Of multiple recurrent urinary tract infections, with urine cultures positive for enterococcus species #8. Altered mental status related to acute toxic and metabolic encephalopathy #9. 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 History of Parkinson's disease on Sinemet #11. Severe nausea and vomiting, poor oral intake, status post PEG tube placement on 04/19/2021, with subsequent removal related to dislodgment and J- tube placement on 04/29/2021 #12. History of constipation with fecal impaction #13. Chronic kidney disease stage II #14. Chronic congestive heart failure with diastolic dysfunction #15. Hypertension #16. Hyperlipidemia #17. Hypothyroidism #18. Anxiety and depression Plan: Patient is currently on room air oxygen Tolerating extubation well so far Maintain aspiration precautions, patient still pretty lethargic Maintain status nothing by mouth, keep NG tube in place for today IV fluids to KVO 640 mg IV push 1 Urine output has improved, no plans for nephrostomy tube insertion, case was discussed with nephrology and urology Colostomy is functioning, bowel sounds are present, advanced Jevity Continue TPN for now , to be weaned off Continue Zosyn and Diflucan Discussed case with urology, nephrostomy placement is on hold right now, renal profile is stable, urine output has improved GI and DVT prophylaxis Continue to closely follow in the intensive care unit
--- NOTE | 2021-05-03 10:46 | P.PN ---
Subjective Progress Note Date: 05/03/21 She remain afebrile, no gross hematuria. Her creatinine remains stable at 1, having good UO. patient extubated. Creat is improving Her FABIAN is resolving, now having good UO, . Given improved urine output, stability creatinine we'll hold off on doing an nephrostomy tube at this time. Objective - Vital Signs Vital signs: Vital Signs Temp 99.7 F H 05/03/21 08:00 Pulse 91 05/03/21 10:00 Resp 17 05/03/21 10:00 BP 99/50 05/03/21 10:00 Pulse Ox 91 L 05/03/21 10:00 Intake & Output 05/02/21 05/03/21 05/03/21 18:59 06:59 18:59 Intake Total 1335.228 450 511 Output Total 3175 1940 1250 Balance -1839.772 -1490 -739 Weight 101.5 kg Intake: IV 330 240 431 Fat Emulsion 20% 250 ml 21 In Empty Bag 1 bag @ 21 mls/hr IV DAILY [facility] Rx#: [id number] Fluconazole in NaCl,Iso- 50 Osm 100 mg In Saline 1 50ml.bag @ 50 mls/hr IVPB DAILY [facility] Rx#:[id number] Piperacillin-Tazobactam 3 100 .375 gm In Sodium Chloride 0.9% 100 ml @ 25 mls/hr IVPB Q8HR [facility] Rx# :[id number] Potassium Chloride 20 meq 200 In Water For Injection 1 100ml.bag @ 50 mls/hr IVPB Q2H [facility] Rx#: [id number] Sodium Chloride 0.9% 1, 330 240 60 000 ml @ 20 mls/hr IV . Q24H [facility] Rx#:[id number] Intake, IV Titration 875.228 Amount Magnesium Sulfate-D5w Pmx 200 1 gm In Dextrose/Water 1 100ml.bag @ 100 mls/hr IVPB Q1H [facility] Rx#: [id number] Mvi, Adult No.4 with Vit 661.5 K 10 ml Trace (Conc-1Ml/ Dose) 1 ml In Amino Acid 5%-D15w+Lytes*E* 1,000 ml @ 30 mls/hr IV .Q24H [facility] Rx#:[id number] Norepinephrine 4 mg In 13.728 Sodium Chloride 0.9% 250 ml @ 0.05 MCG/KG/MIN 19. 336 mls/hr IV .Q13H9M [facility] Rx#:[id number] Tube Feeding 70 120 50 Other 60 90 30 Output: Gastric Drainage 550 550 Urine 2375 1940 250 Stool 250 450 Other: Voiding Method Indwelling Catheter Indwelling Catheter # Voids 4 # Bowel Movements 1 - Labs CBC & Chem 7: 05/03/21 05:08 05/03/21 05:08 Labs: Abnormal Lab Results - Last 24 Hours (Table) 05/02/21 05/02/21 05/03/21 Range/Units 11:35 17:30 00:34 WBC (3.8-10.6) k/uL RBC (3.80-5.40) m/uL Hgb (11.4-16.0) gm/dL Hct (34.0-46.0) % RDW (11.5-15.5) % Plt Count (150-450) k/uL Lymphocytes # (1.0-4.8) k/uL Potassium (3.5-5.1) mmol/L BUN (7-17) mg/dL Glucose (74-99) mg/dL POC Glucose (mg/dL) 141 H 127 H 146 H (75-99) mg/dL Calcium (8.4-10.2) mg/dL 05/03/21 05/03/21 05/03/21 Range/Units 05:08 05:08 05:48 WBC 3.3 L (3.8-10.6) k/uL RBC 2.76 L (3.80-5.40) m/uL Hgb 7.8 L D (11.4-16.0) gm/dL Hct 24.0 L (34.0-46.0) % RDW 19.5 H (11.5-15.5) % Plt Count 129 L (150-450) k/uL Lymphocytes # 0.4 L (1.0-4.8) k/uL Potassium 2.8 L (3.5-5.1) mmol/L BUN 23 H (7-17) mg/dL Glucose 136 H (74-99) mg/dL POC Glucose (mg/dL) 140 H (75-99) mg/dL Calcium 7.7 L (8.4-10.2) mg/dL
--- NOTE | 2021-05-03 11:45 | P.PN ---
Subjective Progress Note Date: 05/03/21 Principal diagnosis: cva by Hx, fecal impaction with volvulus status post colostomy with J-tube placement currently on TPN, initiating tube feeds. Leena is a patient well-known to my practice who has been in and out of the hospital recently, known history of parkinsonism recently admitted was done did on February unwilling to and just Parkinson medications as well as other med ications orally patient had PEG tube placed, which was dislodged patient developed significant fecal impaction, volvulus. Underwent surgical intervention, after which time she was transferred to the intensive care unit. This patient was rested on the vent overnight and subsequently weaned. Is cur rently on room air with NG tube currently in place, J-tube currently in place, colostomy which is functioning, patient has persistent hydronephrosis but urinary output has improved Patiently appears hemodynamically stable at this, is obtunded but is moving limitedly in responding occasionally with grunts and groans Objective - Vital Signs Vital signs: Vital Signs Temp 99.7 F H 05/03/21 08:00 Pulse 87 05/03/21 11:00 Resp 16 05/03/21 11:00 BP 93/45 05/03/21 11:00 Pulse Ox 97 05/03/21 11:00 Intake & Output 05/02/21 05/03/21 05/03/21 18:59 06:59 18:59 Intake Total 1335.228 450 753 Output Total 3175 1940 1515 Balance -1839.772 -1490 -762 Weight 101.5 kg Intake: IV 330 240 633 Fat Emulsion 20% 250 ml 63 In Empty Bag 1 bag @ 21 mls/hr IV DAILY [facility] Rx#: [id number] Fluconazole in NaCl,Iso- 50 Osm 100 mg In Saline 1 50ml.bag @ 50 mls/hr IVPB DAILY [facility] Rx#:[id number] Mvi, Adult No.4 with Vit 120 K 10 ml Trace (Conc-1Ml/ Dose) 1 ml In Amino Acid 5%-D15w+Lytes*E* 1,000 ml @ 30 mls/hr IV .Q24H [facility] Rx#:[id number] Piperacillin-Tazobactam 3 100 .375 gm In Sodium Chloride 0.9% 100 ml @ 25 mls/hr IVPB Q8HR [facility] Rx# :[id number] Potassium Chloride 20 meq 200 In Water For Injection 1 100ml.bag @ 50 mls/hr IVPB Q2H [facility] Rx#: [id number] Sodium Chloride 0.9% 1, 330 240 100 000 ml @ 20 mls/hr IV . Q24H [facility] Rx#:[id number] Intake, IV Titration 875.228 Amount Magnesium Sulfate-D5w Pmx 200 1 gm In Dextrose/Water 1 100ml.bag @ 100 mls/hr IVPB Q1H [facility] Rx#: [id number] Mvi, Adult No.4 with Vit 661.5 K 10 ml Trace (Conc-1Ml/ Dose) 1 ml In Amino Acid 5%-D15w+Lytes*E* 1,000 ml @ 30 mls/hr IV .Q24H [facility] Rx#:[id number] Norepinephrine 4 mg In 13.728 Sodium Chloride 0.9% 250 ml @ 0.05 MCG/KG/MIN 19. 336 mls/hr IV .Q13H9M [facility] Rx#:[id number] Tube Feeding 70 120 90 Other 60 90 30 Output: Gastric Drainage 550 550 Urine 2375 1940 515 Stool 250 450 Other: Voiding Method Indwelling Catheter Indwelling Catheter Indwelling Catheter # Voids 4 # Bowel Movements 1 - Exam General: Patient is debilitated, obtunded, occasionally moaning NG tube in place Is extubated HEENT: [PERRL. EOMI. No pharyngeal erythema or exudate.] Neck: [No adenopathy.] Cardiac: [Heart regular in rate and rhythm. No S3. No S4. No clicks, rubs. No murmur.] Lungs: [Clear to auscultation bilaterally.] Abdomen: [Abdomen soft, minimal bowel sounds noted, midline incision dressing clean and dry, J-tube in place Extremes: [2+ edema all 4 extremes : Bueno in place normal female genitalia noted Musculoskeletal: [No joint erythema, or tenderness.] Skin: [No rash.] Neurologic: [No lateralizing deficits. CN II - XII grossly intact.] Lymphatic: [No adenopathy.] - Labs CBC & Chem 7: 05/03/21 05:08 05/03/21 05:08 Labs: Abnormal Lab Results - Last 24 Hours (Table) 05/02/21 05/02/21 05/03/21 Range/Units 11:35 17:30 00:34 WBC (3.8-10.6) k/uL RBC (3.80-5.40) m/uL Hgb (11.4-16.0) gm/dL Hct (34.0-46.0) % RDW (11.5-15.5) % Plt Count (150-450) k/uL Lymphocytes # (1.0-4.8) k/uL Potassium (3.5-5.1) mmol/L BUN (7-17) mg/dL Glucose (74-99) mg/dL POC Glucose (mg/dL) 141 H 127 H 146 H (75-99) mg/dL Calcium (8.4-10.2) mg/dL 05/03/21 05/03/21 05/03/21 Range/Units 05:08 05:08 05:48 WBC 3.3 L (3.8-10.6) k/uL RBC 2.76 L (3.80-5.40) m/uL Hgb 7.8 L D (11.4-16.0) gm/dL Hct 24.0 L (34.0-46.0) % RDW 19.5 H (11.5-15.5) % Plt Count 129 L (150-450) k/uL Lymphocytes # 0.4 L (1.0-4.8) k/uL Potassium 2.8 L (3.5-5.1) mmol/L BUN 23 H (7-17) mg/dL Glucose 136 H (74-99) mg/dL POC Glucose (mg/dL) 140 H (75-99) mg/dL Calcium 7.7 L (8.4-10.2) mg/dL Assessment and Plan (1) Postoperative gastrointestinal function disorder Current Visit: Yes Status: Acute Code(s): [id number] - SNOMED Code(s): 22345133 (2) Encephalopathy Current Visit: Yes Status: Acute Code(s): G93.40 - ENCEPHALOPATHY, UNSPECIFIED SNOMED Code(s): 10834869 (3) Hydronephrosis Current Visit: Yes Status: Acute Code(s): N13.30 - UNSPECIFIED HYD RONEPHROSIS SNOMED Code(s): 30884277 (4) Hypertension Current Visit: Yes Status: Acute Code(s): I10 - ESSENTIAL (PRIMARY) HYPERTENSION SNOMED Code(s): 39907568 (5) Acute on chronic renal failure Current Visit: No Status: Acute Code(s): N17.9 - ACUTE KIDNEY FAILURE, UNSPECIFIED; N18.9 - CHRONIC KIDNEY DISEASE, UNSPECIFIED SNOMED Code(s): 206402952 (6) Acute renal failure Current Visit: No Status: Acute Code(s): N17.9 - ACUTE KIDNEY FAILURE, UNSPECIFIED SNOMED Code(s): 19555586 (7) Chronic anemia Current Visit: No Status: Acute Code(s): D64.9 - ANEMIA, UNSPECIFIED SNOMED Code(s): 775157644 (8) Chronic kidney disease Current Visit: No Status: Acute Code(s): N18.9 - CHRONIC KIDNEY DISEASE, UNSPECIFIED SNOMED Code(s): 750976359 (9) Congestive heart failure Current Visit: No Status: Acute Code(s): I50.9 - HEART FAILURE, UNSPECIFIED SNOMED Code(s): 71260505 (10) Debility Current Visit: No Status: Acute Code(s): R53.81 - OTHER MALAISE SNOMED Code(s): 45829991 (11) Dystonia Current Visit: No Status: Acute Code(s): G24.9 - DYSTONIA, UNSPECIFIED SNOMED Code(s): 20085672 (12) History of CVA (cerebrovascular accident) Current Visit: No Status: Acute Code(s): Z86.73 - PRSNL HX OF TIA (TIA), AND CEREB INFRC W/O RESID DEFICITS SNOMED Code(s): 474013336 (13) History of hypothyroidism Current Visit: No Status: Acute Code(s): Z86.39 - PERSONAL HISTORY OF ENDO, NUTRITIONAL AND METABOLIC DISEASE SNOMED Code(s): 294419464 (14) Obesity Current Visit: No Status: Acute Code(s): E66.9 - OBESITY, UNSPECIFIED SNOMED Code(s): 344598658 (15) Parkinson disease Current Visit: No Status: Acute Code(s): G20 - PARKINSON'S DISEASE SNOMED Code(s): 18584787 Plan: Patient currently in the intensive care unit Prognosis guarded Will continue to follow Time with Patient: Greater than 30
[2021-05-03 11:49] LABS: Glucose,Whole Blood 131 mg/dL (75-99)
[2021-05-03] MEDS: SODIUM CHLORIDE 0.9% 1,000 ML IV SCH (12:19)
[2021-05-03] MEDS: 1: MVI, ADULT NO.4 WITH VIT K 10 ML, TRACE (CONC-1ML/DOSE) 1 ML in AMINO ACID 5%-D15W+LY IV SCH ×3 (15:08)
--- NOTE | 2021-05-03 16:52 | PN ---
PROGRESS NOTE DATE OF SERVICE: 05/03/2021 REASON FOR FOLLOWUP: Ischemic bowel and perforated stomach. INTERVAL HISTORY: Patient is currently afebrile. The patient is hemodynamically stable, not on pressor support, on 1 L nasal cannula. The patient remains to be lethargic. No vomiting or diarrhea on other changes reported by nursing staff. PHYSICAL EXAMINATION: Blood pressure is 91, 40 with a pulse of 87, temperature 98. She is 97% on room air. She is 97% on 1 L nasal cannula GENERAL DESCRIPTION: An elderly female lying in bed in no distress. No respiratory distress. HEENT: Conjunctivae normal. Oral mucosa moist. NECK: No jugular venous distention. No lymph node enlargement. CARDIOVASCULAR: S1, S2, muffled. No S3, no S4, RESPIRATORY: Diminished breath sounds at the bases. Bilateral scattered rhonchi and crackles. ABDOMEN: Soft, mildly tender, no rigidity. LEGS: No edema, no swelling. NERVOUS SYSTEM: Higher functions mentioned earlier. Moves all four limbs. No focal motor or sensory deficits. LYMPHATICS: No lymph node in neck or axilla. SKIN: No rash. JOINTS: No active deforming arthropathy. LABS: Hemoglobin 11.7, BUN of 23, creatinine 1.04. DIAGNOSTIC IMPRESSION AND PLAN: Patient with perforated stomach from the active ulcer ischemic colon from the small wound, status post laparotomy and repair of the perforation and colectomy. The patient is covered with Zosyn which will be continued for now. We will monitor clinical course closely. Continue supportive care. MMODL / IJN: [id number] /
[2021-05-03 17:30] LABS: Glucose,Whole Blood 155 mg/dL (75-99)
[2021-05-03] MEDS ORDERED: Potassium Replacement Protocol 1 EACH MISC MISCELLANE PRN (18:31)
[2021-05-03] MEDS ORDERED: POTASSIUM BICARBONATE/CIT AC 20 MEQ TABLET.EFF NG-TUBE SCH (19:00)
[2021-05-03 23:29] LABS: Glucose,Whole Blood 164 mg/dL (75-99)
[2021-05-04 05:38] LABS: Anisocytosis Slight; Basophils % (A) 0 %; Eosinophils # (A) 0.1 k/uL (0-0.7); Eosinophils % (A) 2 %; HCT 22.1 % (34.0-46.0); HGB 7.3 gm/dL (11.4-16.0); Hypochromasia Slight; Lymphocytes # (A) 0.5 k/uL (1.0-4.8); Lymphocytes % (A) 12 %; MCH 28.4 pg (25.0-35.0); MCV 86.1 fL (80.0-100.0); Mean Platelet Volume 8.5; Microcytosis Slight; Monocytes # (A) 0.2 k/uL (0-1.0); Monocytes % (A) 5 %; Neutrophils # (A) 3.3 k/uL (1.3-7.7); Neutrophils % (A) 79 %; Platelet Count 143 k/uL (150-450); Poikilocytosis Slight; RBC 2.56 m/uL (3.80-5.40); RDW 19.7 % (11.5-15.5); WBC 4.1 k/uL (3.8-10.6)
[2021-05-04 06:05] LABS: ALT <6 U/L (4-34); AST 15 U/L (14-36); African American GFR (CKD) 59 (>60 ml/min/1.73 sqM); Albumin 1.9 g/dL (3.5-5.0); Alkaline Phosphatase 74 U/L (38-126); Anion Gap 2 mmol/L; Blood Urea Nitrogen 22 mg/dL (7-17); Calcium 7.6 mg/dL (8.4-10.2); Carbon Dioxide 34 mmol/L (22-30); Chloride 104 mmol/L (98-107); Glucose 145 mg/dL (74-99); Magnesium 1.7 mg/dL (1.6-2.3); Non-African American GFR(CKD) 51 (>60 ml/min/1.73 sqM); Phosphorus 3.3 mg/dL (2.5-4.5); Sodium 140 mmol/L (137-145); Total Bilirubin 0.4 mg/dL (0.2-1.3); Total Protein 4.1 g/dL (6.3-8.2)
[2021-05-04 06:30] LABS: Glucose,Whole Blood 174 mg/dL (75-99)
--- NOTE | 2021-05-04 06:30 | XR ---
EXAMINATION TYPE: XR chest 1V portable DATE OF EXAM: 05/04/2021 CLINICAL HISTORY: Difficulty breathing progress study. TECHNIQUE: Single AP portable semiupright view of the chest is obtained. COMPARISON: Chest x-ray from 2 days earlier and older studies. FINDINGS: Stable nasogastric tube and left-sided PICC line. Patchy left basilar opacity remains present on background of chronic parenchymal change. Cardiac silh ouette size is stable and upper limits of normal with atherosclerotic aorta. Degenerative change left glenohumeral joint. Cholecystectomy clips noted. IMPRESSION: Chronic changes with patchy left basilar acute infiltrate and/or atelectasis. No signific ant change from most recent prior.
[2021-05-04] MEDS: INSULIN ASPART (NovoLOG) 100 UNIT/ML VIAL SQ SCH ×3 (06:56→18:25)
[2021-05-04] MEDS: MAGNESIUM SULFATE-D5W PMX 1 GM in DEXTROSE/WATER 1 100ML.BAG IVPB SCH ×2 (06:57→09:01)
[2021-05-04] MEDS: POTASSIUM BICARBONATE/CIT AC 20 MEQ TABLET.EFF NG-TUBE SCH ×2 (06:57→09:00)
[2021-05-04] MEDS: PIPERACILLIN-TAZOBACTAM 3.375 GM in SODIUM CHLORIDE 0.9% 100 ML IVPB SCH ×2 (09:03→16:57)
[2021-05-04] MEDS: LEVOTHYROXINE IVP 100 MCG/5 ML VIAL IV SCH (09:03)
[2021-05-04] MEDS: CARBIDOPA-LEVODOPA 25-100 MG 1 EACH TAB PO SCH ×4 (09:04→23:08)
[2021-05-04] MEDS: HEPARIN SODIUM,PORCINE/PF 5,000 UNIT/0.5 ML SYRINGE SQ SCH ×2 (09:04→16:57)
[2021-05-04] MEDS: PANTOPRAZOLE 40 MG/10 ML VIAL IV SCH (09:04)
[2021-05-04] MEDS: 1: MVI, ADULT NO.4 WITH VIT K 10 ML, TRACE (CONC-1ML/DOSE) 1 ML in AMINO ACID 5%-D15W+LY IV SCH ×3 (09:05)
[2021-05-04] MEDS: FAT EMULSION 20% 250 ML in EMPTY BAG 1 BAG IV SCH (09:05)
[2021-05-04] MEDS: NYSTATIN 100,000 UNIT/GM POWD 15 GM TOPICAL SCH (09:06)
[2021-05-04] MEDS: SODIUM CHLORIDE 0.9% 1,000 ML IV SCH (09:07)
--- NOTE | 2021-05-04 09:13 | P.PN ---
Subjective Progress Note Date: 05/04/21 Patient seen and examined at bedside. No acute events. Continues to have ostomy output. Currently, J-tube feeding is at 40 mL per hour. Nasogastric tube with bilious output. Objective - Vital Signs Vital signs: Vital Signs Temp 98.2 F 05/04/21 08:00 Pulse 81 05/04/21 08:00 Resp 14 05/04/21 08:00 BP 105/53 05/04/21 08:00 Pulse Ox 98 05/04/21 08:00 Intake & Output 05/03/21 05/04/21 05/04/21 18:59 06:59 18:59 Intake Total 1750 1433 210 Output Total 3275 2345 175 Balance -1525 -912 35 Intake: IV 1430 963 150 Amino Acid 5%-D15w+Lytes* 220 660 110 E* 1,000 ml @ 55 mls/hr IV .BY DURATION [facility] Rx#: [id number] Fat Emulsion 20% 250 ml 210 63 In Empty Bag 1 bag @ 21 mls/hr IV DAILY [facility] Rx#: [id number] Fluconazole in NaCl,Iso- 50 Osm 100 mg In Saline 1 50ml.bag @ 50 mls/hr IVPB DAILY [facility] Rx#:[id number] Mvi, Adult No.4 with Vit 210 K 10 ml Trace (Conc-1Ml/ Dose) 1 ml In Amino Acid 5%-D15w+Lytes*E* 1,000 ml @ 30 mls/hr IV .Q24H [facility] Rx#:[id number] Piperacillin-Tazobactam 3 200 .375 gm In Sodium Chloride 0.9% 100 ml @ 25 mls/hr IVPB Q8HR [facility] Rx# :[id number] Potassium Chloride 20 meq 300 In Water For Injection 1 100ml.bag @ 50 mls/hr IVPB Q2H [facility] Rx#: [id number] Sodium Chloride 0.9% 1, 240 240 40 000 ml @ 20 mls/hr IV . Q24H [facility] Rx#:[id number] Tube Feeding 230 320 60 Other 90 150 Output: Gastric Drainage 800 550 Urine 1825 1095 175 Stool 650 700 Other: Voiding Method Indwelling Catheter Indwelling Catheter Indwelling Catheter # Bowel Movements 1 - Constitutional General appearance: Present: no acute distress - Gastrointestinal Gastrointestinal Comment(s): Soft, midline incision clean, dry and intact, ostomy pink and patent - Labs CBC & Chem 7: 05/04/21 05:14 05/04/21 05:14 Labs: Abnormal Lab Results - Last 24 Hours (Table) 05/03/21 05/03/21 05/03/21 Range/Units 11:47 17:29 23:27 RBC (3.80-5.40) m/uL Hgb (11.4-16.0) gm/dL Hct (34.0-46.0) % RDW (11.5-15.5) % Plt Count (150-450) k/uL Lymphocytes # (1.0-4.8) k/uL Potassium (3.5-5.1) mmol/L Carbon Dioxide (22-30) mmol/L BUN (7-17) mg/dL Creatinine (0.52-1.04) mg/dL Glucose (74-99) mg/dL POC Glucose (mg/dL) 131 H 155 H 164 H (75-99) mg/dL Calcium (8.4-10.2) mg/dL Total Protein (6.3-8.2) g/dL Albumin (3.5-5.0) g/dL 05/04/21 05/04/21 05/04/21 Range/Units 05:14 05:14 06:28 RBC 2.56 L (3.80-5.40) m/uL Hgb 7.3 L (11.4-16.0) gm/dL Hct 22.1 L (34.0-46.0) % RDW 19.7 H (11.5-15.5) % Plt Count 143 L (150-450) k/uL Lymphocytes # 0.5 L (1.0-4.8) k/uL Potassium 3.0 L (3.5-5.1) mmol/L Carbon Dioxide 34 H (22-30) mmol/L BUN 22 H (7-17) mg/dL Creatinine 1.07 H (0.52-1.04) mg/dL Glucose 145 H (74-99) mg/dL POC Glucose (mg/dL) 174 H (75-99) mg/dL Calcium 7.6 L (8.4-10.2) mg/dL Total Protein 4.1 L (6.3-8.2) g/dL Albumin 1.9 L (3.5-5.0) g/dL Assessment and Plan Plan: Postoperative, Vines's procedure and jejunostomy tube insertion - Patient's J-tube feeding is being increased 10 mL every 12 hours. Currently, patient is at 40 mL per hour and is tolerating this. - Continue nasogastric tube as patient has had recent gastrotomy repair, discussed with nursing to monitor output quality and quantity - Continue medical management - Continue ICU care
--- NOTE | 2021-05-04 09:25 | P.PN ---
Subjective Progress Note Date: 05/04/21 This is a 75-year-old white female patient a resident of a local [facility], who was initially admitted to the hospital on 04/15/2021 when she was brought to the hospital per EMS with altered mentation, and vomiting. Patient was receiving Rocephin for a urinary tract infection at the nursing facility and patient is known to have a history of multiple recurrent urinary tract infections and history of right ureteral stent placement. Patient at baseline is a poor historian, related to previous history of CVA and patient has left-sided weakness and expressive aphasia. Other medical history significant for hyperlipidemia, hypertension, hypothyroidism, Parkinson's disease, anxiety, depression, degenerative arthritis. Most recent urine culture from February and March 2021 showed evidence of enterococcus with multiple resistances and she was placed on vancomycin in the emergency department. CT of the abdomen and pelvis on admission showed marked right hydronephrosis, and a small left hydronephrosis similar findings on the CT of the abdomen and pelvis from 03/18/2021. Urology is following and was planning on insertion of a nephrostomy. Neurological workup showed a brain CT with chronic appearing periventricular white matter of ischemic type, which was stable. EEG showed an abnormal EEG due to the background slowing of mild to moderate degree suggestive of generalized cerebral dysfunction as seen with toxic metabolic encephalopathy and diffuse structural brain abnormality. No evidence of epileptiform activity was seen. Neurology's impression was that the altered mental status was likely due to toxic metabolic encephalopathy. Patient continued to be nauseous and vomiting and was unable to take any oral medications or oral feedings. On 04/19/2021 patient underwent EGD and PEG tube placement by Dr. Dempsey. The EGD showed no abnormalities within the stomach and duodenum. However the patient continued to have intermittent nausea and vomiting, and tube feedings were on hold and the PEG tube was connected to dependent drainage. On 04/24/2021 patient underwent cystoscopy, right retrograde pyelogram and right ureteroscopy, right ureteral stent was removed, however attempts to replace it were unsuccessful, and nephrostomy tube insertion was planned. On 04/29/2021 patient developed worsening tenderness and distention of the abdomen, she continued to have nausea with vomiting, and her leukocytosis was worsening. CT of the abdomen and pelvis on 04/29/2021 showed extravasation of the contrast from the PEG tube, with a concern of dislodged PEG tube from the stomach with a small amount of air in the peritoneum. Also there was a large stool ball and markedly distended possibly volvulized sigmoid colon. Right nephrostomy procedure was placed on hold, and patient was taken to the operating room and underwent exploratory laparotomy which was converted to open procedure, sigmoid colectomy, and creation of end colostomy and repair of gastrostomy along with placement of jejunal feeding tube. Patient was admitted to the intensive care unit following her procedure earlier this morning at around 3:00 this morning intubated and on mechanical ventilator support. This morning she is on assist-control mode of ventilation with a rate of 14, tidal vital 300, FiO2 of 60% and PEEP of 5, this morning's blood gas showed a pO2 of 219, pCO2 42, pH of 7.47, this was done on 100% FiO2 and this was subsequently dropped to 60%. She is on lactated Ringer's at 50 ML per hour, Diprivan and is at 30 ML per hour, hemodynamically she is stable, not requiring any vasopressor support, she is in sinus mechanism, blood pressure is 100/55. Her chest x-ray today has been reviewed and not showing ET tube and OG tube in appropriate positions, no pneumothorax, the basilar atelectasis, low lung volumes. Breasts the blood work reveals white count of 8.2, hemoglobin is 10.8, platelet count is 216, INR is 1.2, sodium is 137, potassium is 3.4, chloride is 101, CO2 is 30, BUN is 24, creatinine is 1.14. Patient's urine output has been quite poor, and she has only produced 35 mL of urine overnight. Current antibiotic coverage includes Diflucan and Zosyn for evidence of enterococcus faecium in the urine, and Fani albicans in the urine culture on urine culture from 04/20/2021. ID service is following. On 05/01/2021 patient seen in follow-up in the intensive care unit. She remains sedated, and intubated on mechanical ventilator, she is currently on assist control mode of ventilation with a rate of 14, tidal volume 300, FiO2 of 40% and PEEP of 5. This morning his blood gases show pO2 of 93, pCO2 43, and pH of 7.48 and this was done on FiO2 of 50% and it has since been dropped to 40%. She is currently on Diprivan at 40 mics per kilo per minute, lactated Ringer's at 100 ML per hour, 0.9 was seen at 20 ML per hour. Levofed is at 2 mics per minute. Patient was started on TPN yesterday which is infusing at 30 ML per hour, patient's urine output has improved in the last 24 hours and responds to IV fluids and one dose of Lasix was given yesterday in the afternoon. However she received significant amount of IV fluid boluses, and she is in positive net fluid balance of 4.3 L or last 24 hours. Patient has significant generalized edema. This morning's chest x-ray is pending, this morning's labs have been reviewed showing white blood cell count of 7.1, hemoglobin of 8.4, platelet count is 179, sodium is 136, the rest of the electrolytes are unremarkable, BUN is 28 creatinine is 1.14. She is currently in sinus mechanism with a rate of 89 BPM, no arrhythmias overnight, lung sounds are clear, abdomen is soft, did not incision is clean dry and intact, left upper quadrant colostomy and placed on a to produce small amount of liquid yellowish colored stool, right upper quadrant J-tube in place, and patient has not been initiated on not tube feedings yet. Overall hemodynamically she is stable, minimal amount of pressors, urine output is improving, renal profile is stable, FiO2 requirement is 40%, urology is following, and patient is being considered for nephrostomy tube however this has not been scheduled yet. We'll proceed with spontaneous awakening trial and a spontaneous breathing trial this morning On 05/02/2021 patient seen in follow-up in intensive care unit, she was successfully weaned and next visit for mechanical ventilator yesterday on 05/01/2021. This morning she is resting in bed, she is lethargic, she does not open eyes to command, does not follow any commands, she is currently just on 2 L of oxygen with a pulse ox of 96%, does not appear to be in any respiratory distress, does withdraw from pain. She is currently on 0.9 normal saline at a rate of 50 ML per hour, TPN is at 30 ML per hour, still has a leave of fed infusing at 2 mics per minute. Patient appears to be quite generally fluid overloaded, with extensive edema involving her upper and lower extremities. Lung sounds are positive for minimal wheezes, no rhonchi. Today's chest x-ray reveals central venous congestion, and possibility of left pleural effusion. We'll cut back IV fluids to KVO. Remains on antibiotics in the form of Zosyn a nd Diflucan. She's been afebrile. Abdomen is soft, and her colostomy is putting out yellow semi-liquid stool. G-tube is in place, however tube feedings have not been started yet, patient has been on TPN. Apparently patient has also passed a bowel movement per rectum. There are positive bowel sounds. Labs have been reviewed showing white blood cell count of 9.2, hemoglobin of 9.6, platelet count is 152, lites are within normal limits, B1 of 25 creatinine was 1.13, these were within normal limits. Urine output been in the order of 50-60 ML per hour. And patient has produced 2.1 L in urine output over last 24 hours, and she is visiting positive net fluid balance of 400 mL over last 24 hours. 19 2020, the patient is being seen in follow-up in the intensive care unit. As stated earlier, the patient's back to has been removed and the patient was given a J-tube and a colostomy. She continues to have an NG tube in place. Enteral feeding was started yesterday and she is currently receiving Jevity at the rate of 20 mL an hour with a goal of 55. At the same time, the patient was started on TPN which is running at 30 mL an hour . Jevity is being gradually advanced and the goal is to get rid of the TPN with the next 24-48 hours. Meanwhile, the colostomy site is functional. Surgical with that is dry clean and intact. Output from the NG is minimal at this point in time. She is quite debilitated. She is arousable. She is having extensive edema in all 4 extremities and she was given a dose of Lasix yesterday. She remains on a combination of Zosyn and Diflucan. She is afebrile for now. On her blood work, she has a white cell, 3.3 with a hemoglobin of 7.2 at which is lower compared to yesterday. Platelet count is up to 129 ,patient's current cardiac rhythm is sinus.clinically, the patient looks around. She doesn't communicate. She grunts and moans on and off and I think that part of her baseline.patient's creatinine remains stable. The patient was given a dose of Lasix yesterday and she responded quite a bit and she has been a significant negative fluid balance of at least 3 L over the past 24 hours. Patient is seen today 05/04/2021 in follow-up in the intensive care unit. Her status has been about the same overnight. She still maintaining good O2 saturations in the upper 90s on either of oxygen. She remains on TPN and lipids. Nasogastric tube remains in place. She has Jevity for nutritional support through the J-tube. Currently at 40 ML's per hour. Goal is 55 mls per hour. Ostomy is functioning approximately 800 mL of liquid return in the past 12 hours. Urine output remains good at approximately 100 mL per hour. She's been afebrile. Hemodynamically stable. Remains on Zosyn and Diflucan. He mostly has garbled speech. Follow any meaningful commands. We believe this is her baseline. White count 4.1. Hemoglobin 7.3. Platelet count 143. Sodium 140. Potassium 3.0. Creatinine 1.07. X-ray continues to revealed chronic changes with patchy left basilar infiltrate/atelectasis. She remains in a negative balance. No significant change compared to previous. She remains on heparin for DVT prophylaxis. Objective - Vital Signs Vital signs: Vital Signs Temp 98.2 F 05/04/21 08:00 Pulse 81 05/04/21 08:00 Resp 14 05/04/21 08:00 BP 105/53 05/04/21 08:00 Pulse Ox 98 05/04/21 08:00 Intake & Output 05/03/21 05/04/21 05/04/21 18:59 06:59 18:59 Intake Total 1750 1433 210 Output Total 3275 2345 175 Balance -1525 -912 35 Intake: IV 1430 963 150 Amino Acid 5%-D15w+Lytes* 220 660 110 E* 1,000 ml @ 55 mls/hr IV .BY DURATION [facility] Rx#: [id number] Fat Emulsion 20% 250 ml 210 63 In Empty Bag 1 bag @ 21 mls/hr IV DAILY [facility] Rx#: [id number] Fluconazole in NaCl,Iso- 50 Osm 100 mg In Saline 1 50ml.bag @ 50 mls/hr IVPB DAILY [facility] Rx#:[id number] Mvi, Adult No.4 with Vit 210 K 10 ml Trace (Conc-1Ml/ Dose) 1 ml In Amino Acid 5%-D15w+Lytes*E* 1,000 ml @ 30 mls/hr IV .Q24H [facility] Rx#:[id number] Piperacillin-Tazobactam 3 200 .375 gm In Sodium Chloride 0.9% 100 ml @ 25 mls/hr IVPB Q8HR [facility] Rx# :[id number] Potassium Chloride 20 meq 300 In Water For Injection 1 100ml.bag @ 50 mls/hr IVPB Q2H [facility] Rx#: [id number] Sodium Chloride 0.9% 1, 240 240 40 000 ml @ 20 mls/hr IV . Q24H [facility] Rx#:[id number] Tube Feeding 230 320 60 Other 90 150 Output: Gastric Drainage 800 550 Urine 1825 1095 175 Stool 650 700 Other: Voiding Method Indwelling Catheter Indwelling Catheter Indwelling Catheter # Bowel Movements 1 - Exam GENERAL EXAM: Lethargic, 75-year-old female patient, on 1 liter of oxygen with pulse ox of 97%, breathing spontaneously, comfortably, however patient is obtunded, does not follow command, does not open eyes to voice, withdraws from pain HEAD: Normocephalic/atraumatic. EYES: Normal reaction of pupils, equal size. Conjunctiva pink, sclera white. NOSE: Clear with pink turbinates. THROAT: No erythema or exudates. NECK: No masses, no JVD, no thyroid enlargement, no adenopathy. CHEST: No chest wall deformity. Symmetrical expansion. LUNGS: Equal air entry with crackles in the left lung base CVS: Regular rate and rhythm, normal S1 and S2, no gallops, no murmurs, no rubs ABDOMEN: Soft, nontender. No hepatosplenomegaly, normal bowel sounds, no guarding or rigidity. Mid abdominal incision clean dry and intact, covered with surgical dressing, epigastric jejunostomy tube in place, insertion site clean d ry intact, left upper quadrant colostomy, with a small amount of liquid yellow stool EXTREMITIES: No clubbing, no edema, no cyanosis, 2+ pulses and upper and lower extremities. MUSCULOSKELETAL: Muscle strength and tone normal. SPINE: No scoliosis or deformity SKIN: No rashes CENTRAL NERVOUS SYSTEM: Lethargic. No focal deficits, tone is normal in all 4 extremities. - Labs CBC & Chem 7: 05/04/21 05:14 05/04/21 05:14 Labs: Abnormal Lab Results - Last 24 Hours (Table) 05/03/21 05/03/21 05/03/21 Range/Units 11:47 17:29 23:27 RBC (3.80-5.40) m/uL Hgb (11.4-16.0) gm/dL Hct (34.0-46.0) % RDW (11.5-15.5) % Plt Count (150-450) k/uL Lymphocytes # (1.0-4.8) k/uL Potassium (3.5-5.1) mmol/L Carbon Dioxide (22-30) mmol/L BUN (7-17) mg/dL Creatinine (0.52-1.04) mg/dL Glucose (74-99) mg/dL POC Glucose (mg/dL) 131 H 155 H 164 H (75-99) mg/dL Calcium (8.4-10.2) mg/dL Total Protein (6.3-8.2) g/dL Albumin (3.5-5.0) g/dL 05/04/21 05/04/21 05/04/21 Range/Units 05:14 05:14 06:28 RBC 2.56 L (3.80-5.40) m/uL Hgb 7.3 L (11.4-16.0) gm/dL Hct 22.1 L (34.0-46.0) % RDW 19.7 H (11.5-15.5) % Plt Count 143 L (150-450) k/uL Lymphocytes # 0.5 L (1.0-4.8) k/uL Potassium 3.0 L (3.5-5.1) mmol/L Carbon Dioxide 34 H (22-30) mmol/L BUN 22 H (7-17) mg/dL Creatinine 1.07 H (0.52-1.04) mg/dL Glucose 145 H (74-99) mg/dL POC Glucose (mg/dL) 174 H (75-99) mg/dL Calcium 7.6 L (8.4-10.2) mg/dL Total Protein 4.1 L (6.3-8.2) g/dL Albumin 1.9 L (3.5-5.0) g/dL Assessment and Plan Assessment: 1 Displaced PEG tube with gastrostomy, with small pneumoperitoneum, sigmoid volvulus and fecal impaction, status post exploratory laparotomy, sigmoid colectomy, creation of end colostomy and repair of the gastrotomy along with placement of a jejunal feeding tube, postoperative day #4 2 Hypotension, related to hypovolemia, and sepsis, related to intra-abdominal sepsis related to gastric perforation and urinary tract infectionthe patient is currently on no pressors. In fact she has a component of fluid overload, third spacing/edema. 3 Severe right hydronephrosis, and to a lesser degree left hydronephrosis, urology is following, creatinine is stable, urine output has improved, and nephrostomy placement is on hold right now 4 History of right hydronephrosis with placement of right ureteral stent placement in December 2020 and subsequent removal on April 24 2021, with unsuccessful attempt to place another ureteral stent, awaiting nephrostomy tube placement 5 Acute kidney injury related to the hydronephrosis, and ATN, recovered 6 Acute urinary tract infection related to Enterococcus faecalis and Fani albicans 7 History Of multiple recurrent urinary tract infections, with urine cultures positive for enterococcus species 8 Altered mental status related to acute toxic and metabolic encephalopathy 9 Previous history of 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 10 History of Parkinson's disease on Sinemet 11 Severe nausea and vomiting, poor oral intake, status post PEG tube placement on 04/19/2021, with subsequent removal related to dislodgment and J-tube placement on 04/29/2021 12 History of constipation with fecal impaction 13 Chronic kidney disease stage II 14 Chronic congestive heart failure with diastolic dysfunction 15 Hypertension 16 Hyperlipidemia 17 Hypothyroidism 18 Anxiety and depression Plan: Maintain aspiration precautions, patient still pretty lethargic Maintain status nothing by mouth, keep NG tube in place Urine output has improved, no plans for nephrostomy tube insertion Colostomy is functioning, bowel sounds are present, advanced Jevity the at 40 ML's per hour with a goal of 55. Continue TPN for now and plans to wean off Continue Zosyn and Diflucan GI and DVT prophylaxis Continue to closely follow in the intensive care unit I, the cosigning physician, performed a history & physical examination of the patient. Lungs sounds crackles in the left base. Maintaining good O2 sa turations in the 90s on 1 L/m per nasal cannula. I discussed the assessment and plan of care with my nurse practitioner, Blanche Gan. I attest to the above note as dictated by her.
[2021-05-04] MEDS ORDERED: FUROSEMIDE 10 MG/ML 4 ML VIAL IV STA (09:28)
[2021-05-04] MEDS: FLUCONAZOLE IN NACL,ISO-OSM 100 MG in SALINE 1 50ML.BAG IVPB SCH (09:45)
[2021-05-04] MEDS: NOREPINEPHRINE 4 MG in SODIUM CHLORIDE 0.9% 250 ML IV SCH ×2 (09:48→22:53)
[2021-05-04 11:39] LABS: Glucose,Whole Blood 169 mg/dL (75-99)
--- NOTE | 2021-05-04 11:55 | P.PN ---
Subjective Progress Note Date: 05/04/21 Principal diagnosis: cva by Hx, fecal impaction with volvulus status post colostomy with J-tube placement currently on TPN, initiating tube feeds. Leena is a patient well-known to my practice who has been in and out of the hospital recently, known history of parkinsonism recently admitted was done did on February unwilling to and just Parkinson medications as well as other med ications orally patient had PEG tube placed, which was dislodged patient developed significant fecal impaction, volvulus. Underwent surgical intervention, after which time she was transferred to the intensive care unit. This patient was rested on the vent overnight and subsequently weaned. Is cur rently on room air with NG tube currently in place, J-tube currently in place, colostomy which is functioning, patient has persistent hydronephrosis but urinary output has improved Patiently appears hemodynamically stable at this, is obtunded but is moving limitedly in responding occasionally with grunts and groans comparable to yesterday urinary output remains excellent Objective - Vital Signs Vital signs: Vital Signs Temp 98.2 F 05/04/21 08:00 Pulse 83 05/04/21 11:00 Resp 11 L 05/04/21 11:00 BP 100/46 05/04/21 11:00 Pulse Ox 98 05/04/21 11:00 Intake & Output 05/03/21 05/04/21 05/04/21 18:59 06:59 18:59 Intake Total 1750 1433 887 Output Total 3275 2345 1350 Balance -1525 -912 -463 Intake: IV 1430 963 667 Amino Acid 5%-D15w+Lytes* 220 660 275 E* 1,000 ml @ 55 mls/hr IV .BY DURATION [facility] Rx#: [id number] Fat Emulsion 20% 250 ml 210 63 42 In Empty Bag 1 bag @ 21 mls/hr IV DAILY [facility] Rx#: [id number] Fluconazole in NaCl,Iso- 50 50 Osm 100 mg In Saline 1 50ml.bag @ 50 mls/hr IVPB DAILY [facility] Rx#:[id number] Magnesium Sulfate-D5w Pmx 100 1 gm In Dextrose/Water 1 100ml.bag @ 100 mls/hr IVPB Q1H [facility] Rx#: [id number] Mvi, Adult No.4 with Vit 210 K 10 ml Trace (Conc-1Ml/ Dose) 1 ml In Amino Acid 5%-D15w+Lytes*E* 1,000 ml @ 30 mls/hr IV .Q24H [facility] Rx#:[id number] Piperacillin-Tazobactam 3 200 100 .375 gm In Sodium Chloride 0.9% 100 ml @ 25 mls/hr IVPB Q8HR [facility] Rx# :[id number] Potassium Chloride 20 meq 300 In Water For Injection 1 100ml.bag @ 50 mls/hr IVPB Q2H [facility] Rx#: [id number] Sodium Chloride 0.9% 1, 240 240 100 000 ml @ 20 mls/hr IV . Q24H [facility] Rx#:[id number] Tube Feeding 230 320 190 Other 90 150 30 Output: Gastric Drainage 800 550 Urine 1825 1095 750 Stool 650 700 600 Other: Voiding Method Indwelling Catheter Indwelling Catheter Indwelling Catheter # Bowel Movements 1 - Exam General: Patient is debilitated, obtunded, occasionally moaning NG tube in place Is extubated HEENT: [PERRL. EOMI. No pharyngeal erythema or exudate.] Neck: [No adenopathy.] Cardiac: [Heart regular in rate and rhythm. No S3. No S4. No clicks, rubs. No murmur.] Lungs: [Clear to auscultation bilaterally.] Abdomen: [Abdomen soft, minimal bowel sounds noted, midline incision dressing clean and dry, J-tube in place Extremes: [2+ edema all 4 extremes : Bueno in place normal female genitalia noted Musculoskeletal: [No joint erythema, or tenderness.] Skin: [No rash.] Neurologic: [No lateralizing deficits. CN II - XII grossly intact.] Lymphatic: [No adenopathy.] - Labs CBC & Chem 7: 05/04/21 05:14 05/04/21 05:14 Labs: Abnormal Lab Results - Last 24 Hours (Table) 05/03/21 05/03/21 05/04/21 Range/Units 17:29 23:27 05:14 RBC 2.56 L (3.80-5.40) m/uL Hgb 7.3 L (11.4-16.0) gm/dL Hct 22.1 L (34.0-46.0) % RDW 19.7 H (11.5-15.5) % Plt Count 143 L (150-450) k/uL Lymphocytes # 0.5 L (1.0-4.8) k/uL Potassium (3.5-5.1) mmol/L Carbon Dioxide (22-30) mmol/L BUN (7-17) mg/dL Creatinine (0.52-1.04) mg/dL Glucose (74-99) mg/dL POC Glucose (mg/dL) 155 H 164 H (75-99) mg/dL Calcium (8.4-10.2) mg/dL Total Protein (6.3-8.2) g/dL Albumin (3.5-5.0) g/dL 05/04/21 05/04/21 05/04/21 Range/Units 05:14 06:28 11:37 RBC (3.80-5.40) m/uL Hgb (11.4-16.0) gm/dL Hct (34.0-46.0) % RDW (11.5-15.5) % Plt Count (150-450) k/uL Lymphocytes # (1.0-4.8) k/uL Potassium 3.0 L (3.5-5.1) mmol/L Carbon Dioxide 34 H (22-30) mmol/L BUN 22 H (7-17) mg/dL Creatinine 1.07 H (0.52-1.04) mg/dL Glucose 145 H (74-99) mg/dL POC Glucose (mg/dL) 174 H 169 H (75-99) mg/dL Calcium 7.6 L (8.4-10.2) mg/dL Total Protein 4.1 L (6.3-8.2) g/dL Albumin 1.9 L (3.5-5.0) g/dL Assessment and Plan (1) Postoperative gastrointestinal function disorder Current Visit: Yes Status: Acute Code(s): SKD8039 - SNOMED Code(s): 88890723 (2) Encephalopathy Current Visit: Yes Status: Acute Code(s): G93.40 - ENCEPHALOPATHY, UNSPECIFIED SNOMED Code(s): 79063939 (3) Hydronephrosis Current Visit: Yes Status: Acute Code(s): N13.30 - UNSPECIFIED HYDRONE PHROSIS SNOMED Code(s): 64962086 (4) Hypertension Current Visit: Yes Status: Acute Code(s): I10 - ESSENTIAL (PRIMARY) HYPERTENSION SNOMED Code(s): 20780956 (5) Acute on chronic renal failure Current Visit: No Status: Acute Code(s): N17.9 - ACUTE KIDNEY FAILURE, UNSPECIFIED; N18.9 - CHRONIC KIDNEY DISEASE, UNSPECIFIED SNOMED Code(s): 587177913 (6) Acute renal failure Current Visit: No Status: Acute Code(s): N17.9 - ACUTE KIDNEY FAILURE, UNSPECIFIED SNOMED Code(s): 16482058 (7) Chronic anemia Current Visit: No Status: Acute Code(s): D64.9 - ANEMIA, UNSPECIFIED SNOMED Code(s): 156719362 (8) Chronic kidney disease Current Visit: No Status: Acute Code(s): N18.9 - CHRONIC KIDNEY DISEASE, UNSPECIFIED SNOMED Code(s): 744057691 (9) Congestive heart failure Current Visit: No Status: Acute Code(s): I50.9 - HEART FAILURE, UNSPECIFIED SNOMED Code(s): 88868363 (10) Debility Current Visit: No Status: Acute Code(s): R53.81 - OTHER MALAISE SNOMED Code(s): 96600821 (11) Dystonia Current Visit: No Status: Acute Code(s): G24.9 - DYSTONIA, UNSPECIFIED SNOMED Code(s): 80044132 (12) History of CVA (cerebrovascular accident) Current Visit: No Status: Acute Code(s): Z86.73 - PRSNL HX OF TIA (TIA), AND CEREB INFRC W/O RESID DEFICITS SNOMED Code(s): 593400058 (13) History of hypothyroidism Current Visit: No Status: Acute Code(s): Z86.39 - PERSONAL HISTORY OF ENDO, NUTRITIONAL AND METABOLIC DISEASE SNOMED Code(s): 801015530 (14) Obesity Current Visit: No Status: Acute Code(s): E66.9 - OBESITY, UNSPECIFIED SNOMED Code(s): 155579492 (15) Parkinson disease Current Visit: No Status: Acute Code(s): G20 - PARKINSON'S DISEASE SNOMED Code(s): 24252600 Plan: Patient currently in the intensive care unit Prognosis guarded Will continue to follow Time with Patient: Greater than 30
[2021-05-04 17:56] LABS: Glucose,Whole Blood 141 mg/dL (75-99)
[2021-05-04] MEDS ORDERED: Potassium Replacement Protocol 1 EACH MISC MISCELLANE PRN (18:09)
[2021-05-04] MEDS ORDERED: POTASSIUM BICARBONATE/CIT AC 20 MEQ TABLET.EFF NG-TUBE SCH (19:00)
--- NOTE | 2021-05-04 22:02 | PN ---
PROGRESS NOTE DATE OF SERVICE: 05/04/2021 REASON FOR FOLLOWUP: 1. Perforated stomach from PEG tube. 2. Ischemic colitis. INTERVAL HISTORY: Patient is afebrile. The patient is hemodynamically stable, not on pressor support. The patient remains to be lethargic. He is unable to provide any history. Still has significant output in the NG. Did have output in the colostomy and is getting TPN. PHYSICAL EXAMINATION: Blood pressure is 93/47, pulse of 87. Temperature 98. She is 98% on 1 L nasal cannula. General description is an elderly female lying in bed in no distress. Respiratory system: Unlabored breathing, decreased intensity of breath sounds. No wheeze. HEART: S1, S2. Regular rate and rhythm. ABDOMEN: Soft, mildly tender. No rigidity. LABS: Hemoglobin 7.1, white count 4.2, BUN of 22, creatinine 1.07. DIAGNOSTIC IMPRESSION AND PLAN: Patient with a perforation of the stomach from the PEG tube, ischemic colitis, status post laparotomy and repair of the stomach perforation and diverting colostomy. The patient is covered with Zosyn and Diflucan. White count normalized. Continue current medication and monitor clinical course closely. MMODL / IJN: [id number] /
[2021-05-05] MEDS: INSULIN ASPART (NovoLOG) 100 UNIT/ML VIAL SQ SCH ×5 (00:55→23:52)
[2021-05-05] MEDS: HEPARIN SODIUM,PORCINE/PF 5,000 UNIT/0.5 ML SYRINGE SQ SCH ×4 (00:55→23:43)
[2021-05-05 01:01] LABS: Glucose,Whole Blood 168 mg/dL (75-99)
[2021-05-05] MEDS: PIPERACILLIN-TAZOBACTAM 3.375 GM in SODIUM CHLORIDE 0.9% 100 ML IVPB SCH ×4 (01:03→23:43)
[2021-05-05 04:35] LABS: Anisocytosis Slight; HCT 21.9 % (34.0-46.0); HGB 7.3 gm/dL (11.4-16.0); Hypochromasia Slight; MCH 28.5 pg (25.0-35.0); MCHC 33.3 g/dL (31.0-37.0); MCV 85.7 fL (80.0-100.0); Microcytosis Slight; Platelet Count 162 k/uL (150-450); Poikilocytosis Slight; RBC 2.56 m/uL (3.80-5.40); RDW 19.8 % (11.5-15.5); WBC 5.5 k/uL (3.8-10.6)
[2021-05-05 04:37] LABS: ALT <6 U/L (4-34); AST 17 U/L (14-36); African American GFR (CKD) 59 (>60 ml/min/1.73 sqM); Albumin 2.1 g/dL (3.5-5.0); Alkaline Phosphatase 91 U/L (38-126); Anion Gap 7 mmol/L; Blood Urea Nitrogen 21 mg/dL (7-17); Calcium 7.9 mg/dL (8.4-10.2); Carbon Dioxide 32 mmol/L (22-30); Chloride 101 mmol/L (98-107); Glucose 126 mg/dL (74-99); Non-African American GFR(CKD) 51 (>60 ml/min/1.73 sqM); Phosphorus 3.2 mg/dL (2.5-4.5); Sodium 140 mmol/L (137-145); Total Bilirubin 0.5 mg/dL (0.2-1.3); Total Protein 4.7 g/dL (6.3-8.2)
[2021-05-05 05:38] LABS: Anisocytosis (M) Present; Band Neutrophils % 26 %; Eosinophils # (M) 0.11 k/uL (0-0.7); Hypochromasia (M) Present; Lymphocytes # (M) 1.05 k/uL (1.0-4.8); Monocytes # (M) 0.28 k/uL (0-1.0); Neutrophils % (M) 48 %; Nucleated Red Blood Cells 0 /100 WBC (0-0); Total Cells Counted 100
[2021-05-05 05:39] LABS: Poikilocytosis (M) Present
[2021-05-05] MEDS: 1: MVI, ADULT NO.4 WITH VIT K 10 ML, TRACE (CONC-1ML/DOSE) 1 ML in AMINO ACID 5%-D15W+LY IV SCH ×3 (06:10)
[2021-05-05] MEDS: PANTOPRAZOLE 40 MG/10 ML VIAL IV SCH (08:01)
[2021-05-05] MEDS: FLUCONAZOLE IN NACL,ISO-OSM 100 MG in SALINE 1 50ML.BAG IVPB SCH ×2 (08:01→08:13)
[2021-05-05] MEDS: LEVOTHYROXINE IVP 100 MCG/5 ML VIAL IV SCH (08:01)
[2021-05-05] MEDS: POTASSIUM BICARBONATE/CIT AC 20 MEQ TABLET.EFF NG-TUBE SCH ×2 (08:02→08:44)
[2021-05-05] MEDS: CARBIDOPA-LEVODOPA 25-100 MG 1 EACH TAB PO SCH ×4 (08:02→22:28)
[2021-05-05] MEDS: NYSTATIN 100,000 UNIT/GM POWD 15 GM TOPICAL SCH (08:15)
[2021-05-05] MEDS: FAT EMULSION 20% 250 ML in EMPTY BAG 1 BAG IV SCH (08:48)
[2021-05-05] MEDS ORDERED: HYDROmorphone 0.2 MG/1 ML SYRINGE IVP PRN (09:14)
[2021-05-05] MEDS: ACETAMINOPHEN TAB 325 MG TAB PO PRN (09:33)
[2021-05-05 11:30] LABS: Glucose,Whole Blood 168 mg/dL (75-99)
[2021-05-05] MEDS: NOREPINEPHRINE 4 MG in SODIUM CHLORIDE 0.9% 250 ML IV SCH (12:05)
[2021-05-05] MEDS: SODIUM CHLORIDE 0.9% 1,000 ML IV SCH (12:07)
--- NOTE | 2021-05-05 12:55 | XR ---
EXAMINATION TYPE: XR chest 1V portable DATE OF EXAM: 05/05/2021 COMPARISON: Chest x-ray 05/04/2021 HISTORY: Abnormal chest x-ray, possible aspiration TECHNIQUE: Single frontal view of the chest is obtained. FINDINGS: There is a left-sided PICC line, distal tip is overlying the region of the superior vena c tashi, NG tube is coiled within the stomach. No evident pneumothorax or sizable effusion. Lung lines ar e low and the patient is rotated, heart is enlarged. Patchy basilar density is noted. Aorta is dense. Arthropathy noted in the left shoulder. There are overlying artifacts. Postop changes are noted in t he mid abdomen, there are gricelda present, surgical clips present right upper quadrant. IMPRESSION: Low lung volumes, possible basilar atelectasis, correlate for pneumonia
--- NOTE | 2021-05-05 13:12 | P.PN ---
Subjective Progress Note Date: 05/05/21 resting comfortably in bed Objective - Vital Signs Vital signs: Vital Signs Temp 100.1 F H 05/05/21 12:00 Pulse 97 05/05/21 13:00 Resp 19 05/05/21 13:00 BP 108/45 05/05/21 13:00 Pulse Ox 96 05/05/21 13:00 Intake & Output 05/04/21 05/05/21 05/05/21 18:59 06:59 18:59 Intake Total 3010 1878 1090 Output Total 3400 2095 560 Balance -390 -217 530 Weight 102 kg 102 kg Intake: IV 1439 1138 600 0.9 120 Amino Acid 5%-D15w+Lytes* 660 715 330 E* 1,000 ml @ 55 mls/hr IV .BY DURATION [facility] Rx#: [id number] Fat Emulsion 20% 250 ml 189 63 In Empty Bag 1 bag @ 21 mls/hr IV DAILY [facility] Rx#: [id number] Fluconazole in NaCl,Iso- 50 50 Osm 100 mg In Saline 1 50ml.bag @ 50 mls/hr IVPB DAILY [facility] Rx#:[id number] Magnesium Sulfate-D5w Pmx 100 1 gm In Dextrose/Water 1 100ml.bag @ 100 mls/hr IVPB Q1H [facility] Rx#: [id number] Piperacillin-Tazobactam 3 200 100 100 .375 gm In Sodium Chloride 0.9% 100 ml @ 25 mls/hr IVPB Q8HR [facility] Rx# :[id number] Sodium Chloride 0.9% 1, 240 260 000 ml @ 20 mls/hr IV . Q24H [facility] Rx#:[id number] Intake, IV Titration 1011 Amount Mvi, Adult No.4 with Vit 1011 K 10 ml Trace (Conc-1Ml/ Dose) 1 ml In Amino Acid 5%-D15w+Lytes*E* 1,000 ml @ 55 mls/hr IV .BY DURATION [facility] Rx#: [id number] Tube Feeding 470 650 320 Other 90 90 170 Output: Gastric Drainage 300 800 Urine 2200 795 160 Stool 900 300 400 Emesis 200 Other: Voiding Method Indwelling Catheter Indwelling Catheter Indwelling Catheter - Constitutional General appearance: Present: no acute distress - Cardiovascular Rhythm: regular - Gastrointestinal Gastrointestinal Comment(s): Incisions CDI J tube in place. Colostomy pink and patent with stool in bag NGT in place with bilous output - Labs CBC & Chem 7: 05/05/21 04:02 05/05/21 04:02 Labs: Abnormal Lab Results - Last 24 Hours (Table) 05/04/21 05/04/21 05/05/21 Range/Units 05:14 17:55 00:59 RBC (3.80-5.40) m/uL Hgb (11.4-16.0) gm/dL Hct (34.0-46.0) % RDW (11.5-15.5) % Potassium 3.0 L (3.5-5.1) mmol/L Carbon Dioxide (22-30) mmol/L BUN (7-17) mg/dL Creatinine (0.52-1.04) mg/dL Glucose (74-99) mg/dL POC Glucose (mg/dL) 141 H 168 H (75-99) mg/dL Calcium (8.4-10.2) mg/dL Total Protein (6.3-8.2) g/dL Albumin (3.5-5.0) g/dL 05/05/21 05/05/21 05/05/21 Range/Units 04:02 04:02 11:27 RBC 2.56 L (3.80-5.40) m/uL Hgb 7.3 L (11.4-16.0) gm/dL Hct 21.9 L (34.0-46.0) % RDW 19.8 H (11.5-15.5) % Potassium 3.0 L (3.5-5.1) mmol/L Carbon Dioxide 32 H (22-30) mmol/L BUN 21 H (7-17) mg/dL Creatinine 1.07 H (0.52-1.04) mg/dL Glucose 126 H (74-99) mg/dL POC Glucose (mg/dL) 168 H (75-99) mg/dL Calcium 7.9 L (8.4-10.2) mg/dL Total Protein 4.7 L (6.3-8.2) g/dL Albumin 2.1 L (3.5-5.0) g/dL Assessment and Plan Assessment: S/P Ex Lap resection of sigmoid colon with end colostomy, repair of gastrotomy from dislodged peg tube, and placement of feeding J tube Plan: Nursing reports some tube feeds seen in patients mouth overnight. If patient is having tube feeds refluxing into stomach or mouth I recommend continuing NGT to LIS and decreasing or stopping tube feeds due to aspiration risk. NGT is not to be manipulated without discussing with entry level sales consultant surgeon first due to patient having recent gastrotomy repair.
--- NOTE | 2021-05-05 13:56 | P.PN ---
Subjective Progress Note Date: 05/05/21 Principal diagnosis: Abdominal sepsis secondary to gastric perforation and displaced PEG tube with pneumoperitoneum, sigmoid volvulus and fecal impaction status post expiratory laparotomy and sigmoid colectomy day #5 This is a 75-year-old white female patient a resident of a local [facility], who was initially admitted to the hospital on 04/15/2021 when she was brought to the hospital per EMS with altered mentation, and vomiting. Patient was receiving Rocephin for a urinary tract infection at the nursing facility and patient is known to have a history of multiple recurrent urinary tract infections and history of right ureteral stent placement. Patient at baseline is a poor historian, related to previous history of CVA and patient has left-sided weakness and expressive aphasia. Other medical history significant for hyperlipidemia, hypertension, hypothyroidism, Parkinson's disease, anxiety, depression, degenerative arthritis. Most recent urine culture from February and March 2021 showed evidence of enterococcus with multiple resistances and she was placed on vancomycin in the emergency department. CT of the abdomen and pelvis on admission showed marked right hydronephrosis, and a small left hydronephrosis similar findings on the CT of the abdomen and pelvis from 03/18/2021. Urology is following and was planning on insertion of a nephrostomy. Neurological workup showed a brain CT with chronic appearing periventricular white matter of ischemic type, which was stable. EEG showed an abnormal EEG due to the background slowing of mild to moderate degree suggestive of generalized cerebral dysfunction as seen with toxic metabolic encephalopathy and diffuse structural brain abnormality. No evidence of epileptiform activity was seen. Neurology's impression was that the altered mental status was likely due to toxic metabolic encephalopathy. Patient continued to be nauseous and vomiting and was unable to take any oral medications or oral feedings. On 04/19/2021 patient underwent EGD and PEG tube placement by Dr. Dempsey. The EGD showed no abnormalities within the stomach and duodenum. However the patient continued to have intermittent nausea and vomiting, and tube feedings were on hold and the PEG tube was connected to dependent drainage. On 04/24/2021 patient underwent cystoscopy, right retrograde pyelogram and right ureteroscopy, right ureteral stent was removed, however attempts to replace it were unsuccessful, and nephrostomy tube insertion was planned. On 04/29/2021 patient developed worsening tenderness and distention of the abdomen, she continued to have nausea with vomiting, and her leukocytosis was worsening. CT of the abdomen and pelvis on 04/29/2021 showed extravasation of the contrast from the PEG tube, with a concern of dislodged PEG tube from the stomach with a small amount of air in the peritoneum. Also there was a large stool ball and markedly distended possibly volvulized sigmoid colon. Right nephrostomy procedure was placed on hold, and patient was taken to the operating room and underwent exploratory laparotomy which was converted to open procedure, sigmoid colectomy, and creation of end colostomy and repair of gastrostomy along with placement of jejunal feeding tube. Patient was admitted to the intensive care unit following her procedure earlier this morning at around 3:00 this morning intubated and on mechanical ventilator support. This morning she is on assist-control mode of ventilation with a rate of 14, tidal vital 300, FiO2 of 60% and PEEP of 5, this morning's blood gas showed a pO2 of 219, pCO2 42, pH of 7.47, this was done on 100% FiO2 and this was subsequently dropped to 60%. She is on lactated Ringer's at 50 ML per hour, Diprivan and is at 30 ML per hour, hemodynamically she is stable, not requiring any vasopressor support, she is in sinus mechanism, blood pressure is 100/55. Her chest x-ray today has been reviewed and not showing ET tube and OG tube in appropriate positions, no pneumothorax, the basilar atelectasis, low lung volumes. Breasts the blood work reveals white count of 8.2, hemoglobin is 10.8, platelet count is 216, INR is 1.2, sodium is 137, potassium is 3.4, chloride is 101, CO2 is 30, BUN is 24, creatinine is 1.14. Patient's urine output has been quite poor, and she has only produced 35 mL of urine overnight. Current antibiotic coverage includes Diflucan and Zosyn for evidence of enterococcus faecium in the urine, and Fani albicans in the urine culture on urine culture from 04/20/2021. ID service is following. On 05/01/2021 patient seen in follow-up in the intensive care unit. She remains sedated, and intubated on mechanical ventilator, she is currently on assist control mode of ventilation with a rate of 14, tidal volume 300, FiO2 of 40% and PEEP of 5. This morning his blood gases show pO2 of 93, pCO2 43, and pH of 7.48 and this was done on FiO2 of 50% and it has since been dropped to 40%. She is currently on Diprivan at 40 mics per kilo per minute, lactated Ringer's at 100 ML per hour, 0.9 was seen at 20 ML per hour. Levofed is at 2 mics per minute. Patient was started on TPN yesterday which is infusing at 30 ML per hour, patient's urine output has improved in the last 24 hours and responds to IV flu ids and one dose of Lasix was given yesterday in the afternoon. However she received significant amount of IV fluid boluses, and she is in positive net fluid balance of 4.3 L or last 24 hours. Patient has significant generalized edema. This morning's chest x-ray is pending, this morning's labs have been reviewed showing white blood cell count of 7.1, hemoglobin of 8.4, platelet count is 179, sodium is 136, the rest of the electrolytes are unremarkable, BUN is 28 creatinine is 1.14. She is currently in sinus mechanism with a rate of 89 BPM, no arrhythmias overnight, lung sounds are clear, abdomen is soft, did not incision is clean dry and intact, left upper quadrant colostomy and placed on a to produce small amount of liquid yellowish colored stool, right upper quadrant J-tube in place, and patient has not been initiated on not tube feedings yet. Overall hemodynamically she is stable, minimal amount of pressors, urine output is improving, renal profile is stable, FiO2 requirement is 40%, urology is following, and patient is being considered for nephrostomy tube however this has not been scheduled yet. We'll proceed with spontaneous awakening trial and a spontaneous breathing trial this morning On 05/02/2021 patient seen in follow-up in intensive care unit, she was successfully weaned and next visit for mechanical ventilator yesterday on 05/01/2021. This morning she is resting in bed, she is lethargic, she does not open eyes to command, does not follow any commands, she is currently just on 2 L of oxygen with a pulse ox of 96%, does not appear to be in any respiratory distress, does withdraw from pain. She is currently on 0.9 normal saline at a rate of 50 ML per hour, TPN is at 30 ML per hour, still has a leave of fed infusing at 2 mics per minute. Patient appears to be quite generally fluid overloaded, with extensive edema involving her upper and lower extremities. Lung sounds are positive for minimal wheezes, no rhonchi. Today's chest x-ray reveals central venous congestion, and possibility of left pleural effusion. We'll cut back IV fluids to KVO. Remains on antibiotics in the form of Zosyn and Diflucan. She's been afebrile. Abdomen is soft, and her colostomy is putting out yellow semi-liquid stool. G-tube is in place, however tube feedings have not been started yet, patient has been on TPN. Apparently patient has also passed a bowel movement per rectum. There are positive bowel sounds. Labs have been reviewed showing white blood cell count of 9.2, hemoglobin of 9.6, platelet count is 152, lites are within normal limits, B1 of 25 creatinine was 1.13, these were within normal limits. Urine output been in the order of 50-60 ML per hour. And patient has produced 2.1 L in urine output over last 24 hours, and she is visiting positive net fluid balance of 400 mL over last 24 hours. 19 2020, the patient is being seen in follow-up in the intensive care unit. As stated earlier, the patient's back to has been removed and the patient was given a J-tube and a colostomy. She continues to have an NG tube in place. Enteral feeding was started yesterday and she is currently receiving Jevity at the rate of 20 mL an hour with a goal of 55. At the same time, the patient was started on TPN which is running at 30 mL an hour . Jevity is being gradually advanced and the goal is to get rid of the TPN with the next 24-48 hours. Meanwhile, the colostomy site is functional. Surgical with that is dry clean and intact. Output from the NG is minimal at this point in time. She is quite debilitated. She is arousable. She is having extensive edema in all 4 extremities and she was given a dose of Lasix yesterday. She remains on a combination of Zosyn and Diflucan. She is afebrile for now. On her blood work, she has a white cell, 3.3 with a hemoglobin of 7.2 at which is lower compared to yesterday. Platelet count is up to 129 ,patient's current cardiac rhythm is sinus.clinically, the patient looks around. She doesn't communicate. She grunts and moans on and off and I think that part of her baseline.patient's creatinine remains stable. The patient was given a dose of Lasix yesterday and she responded quite a bit and she has been a significant negative fluid balance of at least 3 L over the past 24 hours. Patient is seen today 05/04/2021 in follow-up in the intensive care unit. Her status has been about the same overnight. She still maintaining good O2 saturations in the upper 90s on either of oxygen. She remains on TPN and lipids. Nasogastric tube remains in place. She has Jevity for nutritional support through the J-tube. Currently at 40 ML's per hour. Goal is 55 mls per hour. Ostomy is functioning approximately 800 mL of liquid return in the past 12 hours. Urine output remains good at approximately 100 mL per hour. She's been afebrile. Hemodynamically stable. Remains on Zosyn and Diflucan. He mostly has garbled speech. Follow any meaningful commands. We believe this is her baseline. White count 4.1. Hemoglobin 7.3. Platelet count 143. Sodium 140. Potassium 3.0. Creatinine 1.07. X-ray continues to revealed chronic changes with patchy left basilar infiltrate/atelectasis. She remains in a negative balance. No significant change compared to previous. She remains on heparin for DVT prophylaxis. Patient was reevaluated today on 05/05/2021, patient remains in the ICU. Still on 1 L nasal cannula, O2 saturations 94%, patient is on TPN, and she is also on Jevity via J-tube which will be switched to vital AF today. Patient seems to be sleepy, but arousable, following very simple instructions like wiggling toes squeezing hands and sticking out tongue. Obviously she's comprehending what she is being controlled. Patient seems to be generally frail, and weak. Nasogas tric tube remains in place, and bilious drainage is noted from the nasogastric tube. Patient is receiving enteral eating via jejunostomy tube and she also receiving TPN. Her ostomy is functioning well, urine output is perfect. Patient is hemodynamically stable, remains on Zosyn and Diflucan. Speech remains garbled. CBC is relatively normal except for hemoglobin of 7.3, potassium is 3. Profile is relatively normal creatinine is 1.07 chest x-ray showed low lung volumes and basilar atelectasis no clear-cut evidence of pneumonia. Objective - Vital Signs Vital signs: Vital Signs Temp 100.1 F H 05/05/21 12:00 Pulse 97 05/05/21 13:00 Resp 19 05/05/21 13:00 BP 108/45 05/05/21 13:00 Pulse Ox 96 05/05/21 13:00 Intake & Output 05/04/21 05/05/21 05/05/21 18:59 06:59 18:59 Intake Total 3010 1878 1090 Output Total 3400 2095 560 Balance -390 -217 530 Weight 102 kg 102 kg Intake: IV 1439 1138 600 0.9 120 Amino Acid 5%-D15w+Lytes* 660 715 330 E* 1,000 ml @ 55 mls/hr IV .BY DURATION [facility] Rx#: [id number] Fat Emulsion 20% 250 ml 189 63 In Empty Bag 1 bag @ 21 mls/hr IV DAILY [facility] Rx#: [id number] Fluconazole in NaCl,Iso- 50 50 Osm 100 mg In Saline 1 50ml.bag @ 50 mls/hr IVPB DAILY [facility] Rx#:[id number] Magnesium Sulfate-D5w Pmx 100 1 gm In Dextrose/Water 1 100ml.bag @ 100 mls/hr IVPB Q1H [facility] Rx#: [id number] Piperacillin-Tazobactam 3 200 100 100 .375 gm In Sodium Chloride 0.9% 100 ml @ 25 mls/hr IVPB Q8HR [facility] Rx# :[id number] Sodium Chloride 0.9% 1, 240 260 000 ml @ 20 mls/hr IV . Q24H [facility] Rx#:[id number] Intake, IV Titration 1011 Amount Mvi, Adult No.4 with Vit 1011 K 10 ml Trace (Conc-1Ml/ Dose) 1 ml In Amino Acid 5%-D15w+Lytes*E* 1,000 ml @ 55 mls/hr IV .BY DURATION [facility] Rx#: [id number] Tube Feeding 470 650 320 Other 90 90 170 Output: Gastric Drainage 300 800 Urine 2200 795 160 Stool 900 300 400 Emesis 200 Other: Voiding Method Indwelling Catheter Indwelling Catheter Indwelling Catheter - Exam GENERAL EXAM: Revealed 75-year-old female, lethargic but arousable and follows very simple instructions. HEAD: Normocephalic/atraumatic. EENT: PERRLA, EOMI, anicteric, no neck masses, nasogastric tube is intact draining bilious material. Dry mucous membranes noted. CHEST: Symmetrical expansion. LUNGS: The mechanical chest expansion, diminished breath sounds at the bases no rhonchi and no wheezes. CVS: Normal S1 and S2, no S3 gallop. ABDOMEN: Soft, nontender. No hepatosplenomegaly, normal bowel sounds, no guarding or rigidity. Mid abdominal incision clean dry and intact, covered with surgical dressing, epigastric jejunostomy tube in place, insertion site clean dry intact, left upper quadrant colostomy, with a small amount of liquid yellow stool EXTREMITIES: Good Pulses bilaterally no clubbing or cyanosis. MUSCULOSKELETAL: Generally weak otherwise unremarkable. SKIN: No rashes CENTRAL NERVOUS SYSTEM: Lethargic. Arousable and follows very simple instructions. - Labs CBC & Chem 7: 05/05/21 04:02 05/05/21 04:02 Labs: Abnormal Lab Results - Last 24 Hours (Table) 05/04/21 05/04/21 05/05/21 Range/Units 05:14 17:55 00:59 RBC (3.80-5.40) m/uL Hgb (11.4-16.0) gm/dL Hct (34.0-46.0) % RDW (11.5-15.5) % Potassium 3.0 L (3.5-5.1) mmol/L Carbon Dioxide (22-30) mmol/L BUN (7-17) mg/dL Creatinine (0.52-1.04) mg/dL Glucose (74-99) mg/dL POC Glucose (mg/dL) 141 H 168 H (75-99) mg/dL Calcium (8.4-10.2) mg/dL Total Protein (6.3-8.2) g/dL Albumin (3.5-5.0) g/dL 05/05/21 05/05/21 05/05/21 Range/Units 04:02 04:02 11:27 RBC 2.56 L (3.80-5.40) m/uL Hgb 7.3 L (11.4-16.0) gm/dL Hct 21.9 L (34.0-46.0) % RDW 19.8 H (11.5-15.5) % Potassium 3.0 L (3.5-5.1) mmol/L Carbon Dioxide 32 H (22-30) mmol/L BUN 21 H (7-17) mg/dL Creatinine 1.07 H (0.52-1.04) mg/dL Glucose 126 H (74-99) mg/dL POC Glucose (mg/dL) 168 H (75-99) mg/dL Calcium 7.9 L (8.4-10.2) mg/dL Total Protein 4.7 L (6.3-8.2) g/dL Albumin 2.1 L (3.5-5.0) g/dL Assessment and Plan Assessment: Impression: Postoperative day #5, patient is status post expiratory laparotomy, sigmoid colectomy, creation of end colostomy and repair of gastrostomy along with placement of the jejunal feeding tube . This was all secondary to displacement of PEG tube Acute abdominal sepsis secondary to above with pneumoperitoneum and gastric perforation in addition to all of this patient had a urinary tract infection. History of hydronephrosis and placement of right ureteral stent in December with subsequent removal in April of 2021, and unsuccessful attempt to place another ureteral stent, patient may require nephrostomy tube placement Acute kidney injury with hydronephrosis and acute tubular necrosis recovering nicely. 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 Chronic kidney disease stage II Chronic diastolic congestive heart failure Benign essential hypertension Dyslipidemia Hypothyroidism Recommendation: Continue aspiration precautions. Continue antibiotics including Zosyn and Diflucan. Enteral feeding via jejunostomy tube. And discontinue TPN. Keep nasogastric tube in place since there is significant bilious drainage noted. Continue GI and DVT prophylaxis. Not quite ready to be transferred out of the ICU. We'll continue to follow. Time with Patient: Less than 30
[2021-05-05 17:31] LABS: Glucose,Whole Blood 148 mg/dL (75-99)
--- NOTE | 2021-05-05 20:50 | PN ---
PROGRESS NOTE DATE OF SERVICE: 05/05/2021 REASON FOR FOLLOWUP: 1. Perforated stomach from the PEG tube. 2. Ischemic colitis. INTERVAL HISTORY: Patient remains to be afebrile. The patient is hemodynamically stable. not on any pressor support. The patient remains to be lethargic and unable to provide any history. Still has significant NG output per nursing staff. She is getting TPN. No other changes reported. PHYSICAL EXAMINATION: Blood pressure is 130/65 with a pulse of 90, temperature 98.8. She is 96% on 1 L nasal cannula. General description is an elderly female lying in in no distress. Respiratory system: Unlabored breathing, decreased breath sounds in the base, with no wheeze. Heart S1, S2. Regular rate and rhythm. Abdomen soft. No guarding, no rigidity. LABS: Hemoglobin 7.1, white count of 5.5, BUN of 21, creatinine 1.07. DIAGNOSTIC IMPRESSION AND PLAN: Patient with perforated stomach from the PEG tube and also has sigmoid volvulus status post sigmoid colectomy. Patient is covered with Zosyn and Diflucan. White count normal. Continue the current antibiotics and monitor clinical course closely. MMODL / IJN: [id number] /
[2021-05-05 23:51] LABS: Glucose,Whole Blood 139 mg/dL (75-99)
[2021-05-06] MEDS ORDERED: 1: MVI, ADULT NO.4 WITH VIT K 10 ML, TRACE (CONC-1ML/DOSE) 1 ML, POTASSIUM CHLORIDE 20 M IV SCH ×4
[2021-05-06 03:35] LABS: Anisocytosis Slight; HCT 21.3 % (34.0-46.0); Hypochromasia Moderate; MCH 27.8 pg (25.0-35.0); MCHC 31.4 g/dL (31.0-37.0); MCV 88.5 fL (80.0-100.0); Mean Platelet Volume 8.1; Platelet Count 135 k/uL (150-450); RBC 2.41 m/uL (3.80-5.40); RDW 19.6 % (11.5-15.5); WBC 6.9 k/uL (3.8-10.6)
[2021-05-06 03:50] LABS: ALT <6 U/L (4-34); AST 15 U/L (14-36); African American GFR (CKD) 61 (>60 ml/min/1.73 sqM); Albumin 1.9 g/dL (3.5-5.0); Alkaline Phosphatase 95 U/L (38-126); Anion Gap 5 mmol/L; Blood Urea Nitrogen 22 mg/dL (7-17); Calcium 7.9 mg/dL (8.4-10.2); Carbon Dioxide 31 mmol/L (22-30); Chloride 104 mmol/L (98-107); Glucose 85 mg/dL (74-99); Magnesium 1.9 mg/dL (1.6-2.3); Non-African American GFR(CKD) 53 (>60 ml/min/1.73 sqM); Phosphorus 2.9 mg/dL (2.5-4.5); Potassium 3.1 mmol/L (3.5-5.1); Sodium 140 mmol/L (137-145); Total Bilirubin 0.5 mg/dL (0.2-1.3); Total Protein 4.2 g/dL (6.3-8.2)
[2021-05-06 04:29] LABS: HGB 6.7 gm/dL (11.4-16.0)
[2021-05-06] MEDS: NOREPINEPHRINE 4 MG in SODIUM CHLORIDE 0.9% 250 ML IV SCH ×2 (05:37→13:37)
[2021-05-06 05:53] LABS: Glucose,Whole Blood 101 mg/dL (75-99)
[2021-05-06] MEDS: POTASSIUM CHLORIDE ER 20 MEQ TAB.ER PO SCH ×2 (05:58→07:06)
[2021-05-06] MEDS: INSULIN ASPART (NovoLOG) 100 UNIT/ML VIAL SQ SCH ×4 (07:06→23:51)
[2021-05-06] MEDS: PIPERACILLIN-TAZOBACTAM 3.375 GM in SODIUM CHLORIDE 0.9% 100 ML IVPB SCH ×3 (08:00→23:57)
[2021-05-06] MEDS: HEPARIN SODIUM,PORCINE/PF 5,000 UNIT/0.5 ML SYRINGE SQ SCH ×3 (08:00→23:57)
[2021-05-06] MEDS: CARBIDOPA-LEVODOPA 25-100 MG 1 EACH TAB PO SCH ×4 (08:00→20:09)
[2021-05-06] MEDS: SODIUM CHLORIDE 0.9% 1,000 ML IV SCH (08:00)
[2021-05-06] MEDS: LEVOTHYROXINE IVP 100 MCG/5 ML VIAL IV SCH (08:32)
[2021-05-06] MEDS: PANTOPRAZOLE 40 MG/10 ML VIAL IV SCH (08:33)
[2021-05-06] MEDS: NYSTATIN 100,000 UNIT/GM POWD 15 GM TOPICAL SCH (08:34)
--- NOTE | 2021-05-06 11:06 | P.PN ---
Subjective Progress Note Date: 05/05/21 This is a 75-year-old female with past medical history of UTI Strep agalactiae - (group b) with Pyelonephritis, severe right hydronephrosis with right ureteral stent insertion to 12/26/20,CVA with residual left-sided weakness, expressive aphasia/TIA, hyperlipidemia, hypertension, chronic renal failure, hypo thyroidism, obesity, anxiety, bipolar, depression, former nicotine dependence presented to the ER via EMS for [facility] with reports that patient had mental status changes, combative over the last few days with an episode of vomiting. Patient's baseline is chronic residual left-sided weakness from prior CVA with expressive aphasia. Patient currently nonverbal, rigid, posturing, attempting to communicate with blinking of right eye. Febrile, T-max 100.3, WBC 13.1 yesterday down to 7.9. Maintained on vancomycin. Hemoglobin 8, platelets 217, glucose 104, potassium 2.8, magnesium 1.4 both being supplemented. Sodium 140, BUN 9, creatinine 0.73. Lactic acid 0.8. UA reporting urine WBCs 21, large leukocytes 1+ ketones. EKG reported normal sinus rhythm, left ventricular hypertrophy, chest x-ray reporting bibasilar atelectasis/subsegmental consolidation. Baca virus not detected. 04/18/[address] reported chronic appearing periventricular white matter ischemic type changes, stable .evaluated by neurology who attributes clinical presentation to suspected severe Parkinsonian from not having Sinemet for a few days. PEG tube placement pending .maintained on IV fluid hydration. Remains encephalopathic,more alert today, minimally conversing, not following commands. EEG/EMG completed, results pending T-max 99.9, normal WBC. Urine culture reporting enterococcus faecium.preliminary blood cultures reporting no growth at 48 hours Continues on vancomycin, creatinine 0.68. Hemoglobin 8.5, platelets 171. Potassium 3.2, magnesium 2.2. 04/21/2021 maintain IV fluid hydration. Lethargic, nausea and vomiting reported after meds administered via PEG-therefore has not received Sinemet yet today. Urology reconsult regarding cystoscopy for hydronephrosis. Impacted, fleets jermaine mas/disimpaction ordered. PICC line ordered for TPN, as patient has been without nutrition for several days prior to admission and has not been able to be started on PEG tube feedings. Afebrile. 04/22/2021 more alert, received Sinemet yesterday and this morning, no nausea vomiting. We'll reattempt tube feeds via PEG tube -if unable to tolerate then we'll proceed with PICC line and TPN. Received one fleets enema with small stool and reported. Potassium 2.8, receiving supplementation, magnesium 1.8. Urine remains cloudy. Evaluated by urology and scheduled for surgery/potential cystoscopy/right ureteral stent removal/8 ureteroscopy/possible replacement of stent on 04/24/2021. 04/23/2021 large bowel movement last night. Reports diffuse abdominal pain. Tolerating tube feeds at 40 MLS per hour/Goal of 55 with minimal to no residuals, no nausea or vomiting. Continues on vancomycin. Scheduled for cystoscopy tomorrow with right ureteral stent exchange. Afebrile. 04/24/2021 Recently returned from cystoscopy, verbal report of stent exchange- multiple attempts. Currently sedated, opens eyes and falls back asleep. 04/25/2021 postop day #1 from cystoscopy. Procedure note reports right ureteral stent removed, multiple attempts made to identify the triple-lumen unable to identify, contrast injected but did not pass into the renal pelvis, multiple attempts made to advance Glidewire-unsuccessful, and procedure was terminated. Bueno catheter with yellow urine with sediment. Patient sleepy but continues to complain of pain, attempting to use communication board. Afebrile, BMP pending. 04/26/2021: Patient is postop day 2 cystoscopy with removal of ureteral stent. There were unable to put another stent in. A urostomy tube is recommended if she continues to have problems per urology. She remains afebrile, blood pressure heart rate and restaurant rate remained stable. Infectious disease, urology and neurology are following. Their notes were reviewed today. Electrolytes are stable. Sugar slightly elevated before breakfast and 156. She large bowel movement last night. She is noted to have elevated TSH at 6.27. She remains on Synthroid of 150 g daily. She remains on vancomycin for her complicated UTI. Diflucan and added. Chillier self this morning is somnolent, but arousable. She can she's tired. She denies any other complaints when specifically asked. She continues to have significant upper extremity edema, most likely from the IV fluids she was on. Her tube feedings are currently at goal at 55 mL per hour. 04/27/2021: Patient status postop day #3 cystoscopy and ureteral stent removal. New stent could not be placed. Urology is following. They're considering a right-sided nephrostomy tube if her right lower quadrant pain is not resolved. Today she complains of right lower quadrant pain. She currently denies any nausea vomiting, chest pains, pressures, shortness of breath. She is nothing by mouth still. She remains afebrile, heart rate restaurant rate and blood pressure remained stable. Pulse oximetry remained stable. Hemoglobin this morning was 7.0. MCV is 86.7. Glucose remained fairly well controlled. She remains on vancomycin and Diflucan for a complicated UTI. Infectious disease is following. 04/28/2021 complains of right lower quadrant pain. Denies nausea. Renal function stable, BUN 15, creatinine 0.74. Afebrile, WBC 13.52. Hemoglobin 9.1, platelets 147. Blood sugars controlled. 04/29/2021 Tube feeds have remained off since Wednesday evening, positive for nausea vomiting last night, none this morning. Abdomen more distended, hypo- active bowel sounds. Diffuse tenderness.Positive bowel movement yesterday. Urology recommended no nephrostomy at this time , following closely with surgery. Surgery updated, recommending PEG tube be placed to gravity with a Bueno-initial flatus, trace dark brown drainage. Potassium 3.1. Afebrile, CBC pending. 04/30/2021 Yesterday WBC worsened, abdomen more distended .KUB and reported high-grade bowel obstruction, contrast within the stomach, vague density left upper quadrant, possible extravasation.CT of abdomen and pelvis completed yesterday reported high attenuation material from gastrostomy tube injection, contrast and peritoneal cavity around the spleen and liver in the upper abdomen, small pneumoperitoneum, gastrostomy tube did not appear to be in the stomach, multiple left-sided renal parapelvic cyst, moderate bilateral hydronephrosis on the right side, large parapelvic cyst, rectal fecal impaction with dilated large bowel and dilated small bowel, mechanical bowel obstruction, bilateral pleural effusions and basilar infiltrates and atelectasis, appears worse. Patient proceeded with exploratory laparotomy, converted to open procedure sigmoid gonzalo ctomy and creation of end colostomy and repair of gastrostomy along with placement of jejunal feeding tube. Returned to ICU, intubated, currently FiO2 50%, PEEP +5. Borderline hypotension ,maintained on IV fluid hydration of LR at 50 miles per hour, diprovan. Renal function mildly worsening, BUN 24, creatinine 1.14. Marginal urine output. Chest x-ray reported cardiomegaly and basilar atelectasis and small right pleural effusion. Continues on Diflucan and Zosyn as per ID. Telemetry sinus rhythm. Afebrile, normal WBC. Hemoglobin 10.8, platelets 216, INR 1.2, potassium 3.4, magnesium 2.1. 05/01/2021 remains on mechanical ventilation, FiO2 down to 40%/+5 of PEEP. Sedated on diprovan. Spontaneous Breathing trials being discussed. Diprovan recently weaned off, slowly waking up, discussing attempting CPAP trial. Significant endotracheal page secretions. Telemetry sinus rhythm 24-hour I&O reflecting a positive fluid balance ; received aggressive fluid boluses/resuscitation, required initiation of Levophed last night, currently on 2 mics. Chest x-ray reporting diffuse interstitial pattern with bilateral infiltrates, small effusion, venous congestion. Received a dose of Lasix ye sterday. Urine output improving. Renal function stable. PICC line placed yesterday with TPN initiated. Afebrile, normal WBC. Hemoglobin 8.4, platelets 179, sodium 136, potassium 3.9, magnesium 1.9, albumin 1.8. 05/02/2021 extubated yesterday, maintaining O2 sats in the 90s on 2 L nasal cannula. Borderline hypotension, continues on Levophed, currently 2 mics. Maintained on gentle IV fluid hydration, TPN, Zosyn and Diflucan. Large bowel movement rectally in addition to colostomy with loose stool. 24-hour I&O reflecting a positive fluid balance. Renal function stable Trickling of tube f eeds initiated. T-max 99.5, normal WBC. Hemoglobin 9.6, platelets 152. 6/ continues on Zosyn and Diflucan . Renal function stable. Complains of right-sided flank pain. Nephrostomy tube on hold as per urology.maintaining O2 sats in the 90s on 1 L nasal cannula . Chest x-ray reporting low lung volumes, possible basilar atelectasis Sinemet resumed on Wednesday, arousable, follows simple commands. Receiving TPN via PICC line and also on tube feeds at goal, tolerating well with minimal to no residuals. Hemoglobin 7.3. Potassium 3.0. Objective - Vital Signs Vital signs: Vital Signs Temp 99.8 F H 05/05/21 16:00 Pulse 91 05/05/21 16:00 Resp 17 05/05/21 16:00 BP 91/43 05/05/21 16:00 Pulse Ox 96 05/05/21 16:00 Intake & Output 05/04/21 05/05/21 05/05/21 18:59 06:59 18:59 Intake Total 3010 1878 1480 Output Total 3400 2095 635 Balance -390 -217 845 Weight 102 kg 102 kg Intake: IV 1439 1138 825 0.9 180 Amino Acid 5%-D15w+Lytes* 660 715 495 E* 1,000 ml @ 55 mls/hr IV .BY DURATION BALDOMERO Rx#: [id number] Fat Emulsion 20% 250 ml 189 63 In Empty Bag 1 bag @ 21 mls/hr IV DAILY [facility] Rx#: [id number] Fluconazole in NaCl,Iso- 50 50 Osm 100 mg In Saline 1 50ml.bag @ 50 mls/hr IVPB DAILY [facility] Rx#:[id number] Magnesium Sulfate-D5w Pmx 100 1 gm In Dextrose/Water 1 100ml.bag @ 100 mls/hr IVPB Q1H [facility] Rx#: [id number] Piperacillin-Tazobactam 3 200 100 100 .375 gm In Sodium Chloride 0.9% 100 ml @ 25 mls/hr IVPB Q8HR [facility] Rx# :[id number] Sodium Chloride 0.9% 1, 240 260 000 ml @ 20 mls/hr IV . Q24H [facility]DOMERO Rx#:[id number] Intake, IV Titration 1011 Amount Mvi, Adult No.4 with Vit 1011 K 10 ml Trace (Conc-1Ml/ Dose) 1 ml In Amino Acid 5%-D15w+Lytes*E* 1,000 ml @ 55 mls/hr IV .BY DURATION BALDOMERO Rx#: [id number] Tube Feeding 470 650 455 Other 90 90 200 Output: Gastric Drainage 300 800 Urine 2200 795 235 Stool 900 300 400 Emesis 200 Other: Voiding Method Indwelling Catheter Indwelling Catheter Indwelling Catheter - Exam - Exam General: sitting up in bed, sleepy, arouses easily, no acute distress. HEENT: PERRL. EOMI. conjunctivae normal. NG tube present with bilious drainage Neck: Supple, no JVD. Cardiac: Heart regular in rate and rhythm. No S3. No S4. No clicks, rubs. No murmur. Lungs: Clear breath sounds, no rhonchi, crackles, or wheezes,bilateral bases diminished. Abdomen: soft,distended, status post surgery,positive bowel sounds. jejunal tube with loose stool present. Midline Abdominal dressing clean dry and intact. Extremities: Significant Positive edema of all extremities, normal pulses. Skin: Warm and dry, Neurologic: Limited exam, follows simple commands. - Labs CBC & Chem 7: 05/06/21 02:51 05/06/21 02:51 Labs: Abnormal Lab Results - Last 24 Hours (Table) 05/04/21 05/04/21 05/05/21 Range/Units 05:14 17:55 00:59 RBC (3.80-5.40) m/uL Hgb (11.4-16.0) gm/dL Hct (34.0-46.0) % RDW (11.5-15.5) % Potassium 3.0 L (3.5-5.1) mmol/L Carbon Dioxide (22-30) mmol/L BUN (7-17) mg/dL Creatinine (0.52-1.04) mg/dL Glucose (74-99) mg/dL POC Glucose (mg/dL) 141 H 168 H (75-99) mg/dL Calcium (8.4-10.2) mg/dL Total Protein (6.3-8.2) g/dL Albumin (3.5-5.0) g/dL 05/05/21 05/05/21 05/05/21 Range/Units 04:02 04:02 11:27 RBC 2.56 L (3.80-5.40) m/uL Hgb 7.3 L (11.4-16.0) gm/dL Hct 21.9 L (34.0-46.0) % RDW 19.8 H (11.5-15.5) % Potassium 3.0 L (3.5-5.1) mmol/L Carbon Dioxide 32 H (22-30) mmol/L BUN 21 H (7-17) mg/dL Creatinine 1.07 H (0.52-1.04) mg/dL Glucose 126 H (74-99) mg/dL POC Glucose (mg/dL) 168 H (75-99) mg/dL Calcium 7.9 L (8.4-10.2) mg/dL Total Protein 4.7 L (6.3-8.2) g/dL Albumin 2.1 L (3.5-5.0) g/dL Assessment and Plan Assessment: Displaced PEG tube with extravasation of contrast and free air, sigmoid volvulus, fecal impaction, status post exploratory laparotomy, sigmoid colecto my, creation of end colostomy and repair of gastrostomy, jejunal feeding tube placement. Acute hypoxic respiratory failure, status/ post mechanical ventilator-dependent Hypovolemic hypotension Acute renal failure, ATN ,secondary to the above and hydronephrosis Sepsis,multifactorial, including multiple comorbidities ,complicated acute UTI ,severe right-sided hydronephrosis with right stent removal this admission,and #1, not present on admission. Acute toxic, metabolic encephalopathy,brain CT reported no acute infarcts, chronic stable changes, in a patient with history of CVA, possibly secondary to lack of Sinemet, levels ordered, suspect severe parkinsonism,Neurology following. Acute UTI, enterococcus faecium, in a patient with history of recurrent UTIs, recent acute UTI with Enterobacter aerogenes, complicated with bilateral hydronephrosis Bilateral hydronephrosis,no change in the right-sided hydronephrosis. Right ureteral stent insertion 01/06/21, obstruction of UPJ-status post cystoscopy with right stent removed, unable to replace. Nephrostomy pending. 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 Hypothyroidism Bipolar disorder Obesity, BMI 36 Normocytic anemia Status post PICC line with initiation of TPN Plan: Continue on current medication regime ,monitoring and symptomatic treatment. Potassium replacement as per ICU replacement protocol. Strict aspiration precautions.IV antibiotics as per ID. ICU management as per solar sales estimator.Prognosis guarded given multiple complex medical issues. The impression and plan of care has been dictated as directed. : I performed a history and examination of this patient, discussed the same with the dictator. I agree with the dictator's note ,documented as a scribe. Any additional findings or plans will be noted.
[2021-05-06 11:45] LABS: Glucose,Whole Blood 101 mg/dL (75-99)
[2021-05-06 12:36] LABS: Band Neutrophils % 8 %; Lymphocytes # (M) 0.97 k/uL (1.0-4.8); Monocytes # (M) 0.28 k/uL (0-1.0); Neutrophils % (M) 74 %; Nucleated Red Blood Cells 0 /100 WBC (0-0); Total Cells Counted 100
--- NOTE | 2021-05-06 13:17 | P.PN ---
Subjective Progress Note Date: 05/06/21 Principal diagnosis: Abdominal sepsis secondary to gastric perforation and displaced PEG tube with pneumoperitoneum, sigmoid volvulus and fecal impaction status post expiratory laparotomy and sigmoid colectomy day #6 This is a 75-year-old white female patient a resident of a local [facility], who was initially admitted to the hospital on 04/15/2021 when she was brought to the hospital per EMS with altered mentation, and vomiting. Patient was receiving Rocephin for a urinary tract infection at the nursing facility and patient is known to have a history of multiple recurrent urinary tract infections and history of right ureteral stent placement. Patient at baseline is a poor historian, related to previous history of CVA and patient has left-sided weakness and expressive aphasia. Other medical history significant for hyperlipidemia, hypertension, hypothyroidism, Parkinson's disease, anxiety, depression, degenerative arthritis. Most recent urine culture from February and March 2021 showed evidence of enterococcus with multiple resistances and she was placed on vancomycin in the emergency department. CT of the abdomen and pelvis on admission showed marked right hydronephrosis, and a small left hydronephrosis similar findings on the CT of the abdomen and pelvis from 03/18/2021. Urology is following and was planning on insertion of a nephrostomy. Neurological workup showed a brain CT with chronic appearing periventricular white matter of ischemic type, which was stable. EEG showed an abnormal EEG due to the background slowing of mild to moderate degree suggestive of generalized cerebral dysfunction as seen with toxic metabolic encephalopathy and diffuse structural brain abnormality. No evidence of epileptiform activity was seen. Neurology's impression was that the altered mental status was likely due to toxic metabolic encephalopathy. Patient continued to be nauseous and vomiting and was unable to take any oral medications or oral feedings. On 04/19/2021 patient underwent EGD and PEG tube placement by Dr. Dempsey. The EGD showed no abnormalities within the stomach and duodenum. However the patient continued to have intermittent nausea and vomiting, and tube feedings were on hold and the PEG tube was connected to dependent drainage. On 04/24/2021 patient underwent cystoscopy, right retrograde pyelogram and right ureteroscopy, right ureteral stent was removed, however attempts to replace it were unsuccessful, and nephrostomy tube insertion was planned. On 04/29/2021 patient developed worsening tenderness and distention of the abdomen, she continued to have nausea with vomiting, and her leukocytosis was worsening. CT of the abdomen and pelvis on 04/29/2021 showed extravasation of the contrast from the PEG tube, with a concern of dislodged PEG tube from the stomach with a small amount of air in the peritoneum. Also there was a large stool ball and markedly distended possibly volvulized sigmoid colon. Right nephrostomy procedure was placed on hold, and patient was taken to the operating room and underwent exploratory laparotomy which was converted to open procedure, sigmoid colectomy, and creation of end colostomy and repair of gastrostomy along with placement of jejunal feeding tube. Patient was admitted to the intensive care unit following her procedure earlier this morning at around 3:00 this morning intubated and on mechanical ventilator support. This morning she is on assist-control mode of ventilation with a rate of 14, tidal vital 300, FiO2 of 60% and PEEP of 5, this morning's blood gas showed a pO2 of 219, pCO2 42, pH of 7.47, this was done on 100% FiO2 and this was subsequently dropped to 60%. She is on lactated Ringer's at 50 ML per hour, Diprivan and is at 30 ML per hour, hemodynamically she is stable, not requiring any vasopressor support, she is in sinus mechanism, blood pressure is 100/55. Her chest x-ray today has been reviewed and not showing ET tube and OG tube in appropriate positions, no pneumothorax, the basilar atelectasis, low lung volumes. Breasts the blood work reveals white count of 8.2, hemoglobin is 10.8, platelet count is 216, INR is 1.2, sodium is 137, potassium is 3.4, chloride is 101, CO2 is 30, BUN is 24, creatinine is 1.14. Patient's urine output has been quite poor, and she has only produced 35 mL of urine overnight. Current antibiotic coverage includes Diflucan and Zosyn for evidence of enterococcus faecium in the urine, and Fani albicans in the urine culture on urine culture from 04/20/2021. ID service is following. On 05/01/2021 patient seen in follow-up in the intensive care unit. She remains sedated, and intubated on mechanical ventilator, she is currently on assist control mode of ventilation with a rate of 14, tidal volume 300, FiO2 of 40% and PEEP of 5. This morning his blood gases show pO2 of 93, pCO2 43, and pH of 7.48 and this was done on FiO2 of 50% and it has since been dropped to 40%. She is currently on Diprivan at 40 mics per kilo per minute, lactated Ringer's at 100 ML per hour, 0.9 was seen at 20 ML per hour. Levofed is at 2 mics per minute. Patient was started on TPN yesterday which is infusing at 30 ML per hour, patient's urine output has improved in the last 24 hours and responds to IV flu ids and one dose of Lasix was given yesterday in the afternoon. However she received significant amount of IV fluid boluses, and she is in positive net fluid balance of 4.3 L or last 24 hours. Patient has significant generalized edema. This morning's chest x-ray is pending, this morning's labs have been reviewed showing white blood cell count of 7.1, hemoglobin of 8.4, platelet count is 179, sodium is 136, the rest of the electrolytes are unremarkable, BUN is 28 creatinine is 1.14. She is currently in sinus mechanism with a rate of 89 BPM, no arrhythmias overnight, lung sounds are clear, abdomen is soft, did not incision is clean dry and intact, left upper quadrant colostomy and placed on a to produce small amount of liquid yellowish colored stool, right upper quadrant J-tube in place, and patient has not been initiated on not tube feedings yet. Overall hemodynamically she is stable, minimal amount of pressors, urine output is improving, renal profile is stable, FiO2 requirement is 40%, urology is following, and patient is being considered for nephrostomy tube however this has not been scheduled yet. We'll proceed with spontaneous awakening trial and a spontaneous breathing trial this morning On 05/02/2021 patient seen in follow-up in intensive care unit, she was successfully weaned and next visit for mechanical ventilator yesterday on 05/01/2021. This morning she is resting in bed, she is lethargic, she does not open eyes to command, does not follow any commands, she is currently just on 2 L of oxygen with a pulse ox of 96%, does not appear to be in any respiratory distress, does withdraw from pain. She is currently on 0.9 normal saline at a rate of 50 ML per hour, TPN is at 30 ML per hour, still has a leave of fed infusing at 2 mics per minute. Patient appears to be quite generally fluid overloaded, with extensive edema involving her upper and lower extremities. Lung sounds are positive for minimal wheezes, no rhonchi. Today's chest x-ray reveals central venous congestion, and possibility of left pleural effusion. We'll cut back IV fluids to KVO. Remains on antibiotics in the form of Zosyn and Diflucan. She's been afebrile. Abdomen is soft, and her colostomy is putting out yellow semi-liquid stool. G-tube is in place, however tube feedings have not been started yet, patient has been on TPN. Apparently patient has also passed a bowel movement per rectum. There are positive bowel sounds. Labs have been reviewed showing white blood cell count of 9.2, hemoglobin of 9.6, platelet count is 152, lites are within normal limits, B1 of 25 creatinine was 1.13, these were within normal limits. Urine output been in the order of 50-60 ML per hour. And patient has produced 2.1 L in urine output over last 24 hours, and she is visiting positive net fluid balance of 400 mL over last 24 hours. 19 2020, the patient is being seen in follow-up in the intensive care unit. As stated earlier, the patient's back to has been removed and the patient was given a J-tube and a colostomy. She continues to have an NG tube in place. Enteral feeding was started yesterday and she is currently receiving Jevity at the rate of 20 mL an hour with a goal of 55. At the same time, the patient was started on TPN which is running at 30 mL an hour . Jevity is being gradually advanced and the goal is to get rid of the TPN with the next 24-48 hours. Meanwhile, the colostomy site is functional. Surgical with that is dry clean and intact. Output from the NG is minimal at this point in time. She is quite debilitated. She is arousable. She is having extensive edema in all 4 extremities and she was given a dose of Lasix yesterday. She remains on a combination of Zosyn and Diflucan. She is afebrile for now. On her blood work, she has a white cell, 3.3 with a hemoglobin of 7.2 at which is lower compared to yesterday. Platelet count is up to 129 ,patient's current cardiac rhythm is sinus.clinically, the patient looks around. She doesn't communicate. She grunts and moans on and off and I think that part of her baseline.patient's creatinine remains stable. The patient was given a dose of Lasix yesterday and she responded quite a bit and she has been a significant negative fluid balance of at least 3 L over the past 24 hours. Patient is seen today 05/04/2021 in follow-up in the intensive care unit. Her status has been about the same overnight. She still maintaining good O2 saturations in the upper 90s on either of oxygen. She remains on TPN and lipids. Nasogastric tube remains in place. She has Jevity for nutritional support through the J-tube. Currently at 40 ML's per hour. Goal is 55 mls per hour. Ostomy is functioning approximately 800 mL of liquid return in the past 12 hours. Urine output remains good at approximately 100 mL per hour. She's been afebrile. Hemodynamically stable. Remains on Zosyn and Diflucan. He mostly has garbled speech. Follow any meaningful commands. We believe this is her baseline. White count 4.1. Hemoglobin 7.3. Platelet count 143. Sodium 140. Potassium 3.0. Creatinine 1.07. X-ray continues to revealed chronic changes with patchy left basilar infiltrate/atelectasis. She remains in a negative balance. No significant change compared to previous. She remains on heparin for DVT prophylaxis. Patient was reevaluated today on 05/05/2021, patient remains in the ICU. Still on 1 L nasal cannula, O2 saturations 94%, patient is on TPN, and she is also on Jevity via J-tube which will be switched to vital AF today. Patient seems to be sleepy, but arousable, following very simple instructions like wiggling toes squeezing hands and sticking out tongue. Obviously she's comprehending what she is being controlled. Patient seems to be generally frail, and weak. Nasogas tric tube remains in place, and bilious drainage is noted from the nasogastric tube. Patient is receiving enteral eating via jejunostomy tube and she also receiving TPN. Her ostomy is functioning well, urine output is perfect. Patient is hemodynamically stable, remains on Zosyn and Diflucan. Speech remains garbled. CBC is relatively normal except for hemoglobin of 7.3, potassium is 3. Profile is relatively normal creatinine is 1.07 chest x-ray showed low lung volumes and basilar atelectasis no clear-cut evidence of pneumonia. Patient was reevaluated today on 05/06/2021, remains in the ICU on 1 L nasal cannula, she remains encephalopathic, she is on 1 L FiO2 with O2 sat showed 95%. IV fluid is at KVO. Patient is in sinus rhythm remains on enteral feeding via jejunostomy tube, she is on vital af at 45 ML per hour. Continues to have significant output from the nasogastric tube about 1.1 L and over 1800 mL from the ostomy. Lasix remains on hold since the patient has significant output on her own. And we will continue tube feeding. Considering her mental status and her overall clinical status is marginal, I plan to keep the patient in the ICU. Hemoglobin today is down to 6.7, and I have ordered a unit of packed RBCs that is pending. Potassium is low at 2.9 being corrected as per protocol. Objective - Vital Signs Vital signs: Vital Signs Temp 98.7 F 05/06/21 12:00 Pulse 81 05/06/21 12:00 Resp 18 05/06/21 12:00 BP 104/48 05/06/21 12:00 Pulse Ox 91 L 05/06/21 12:00 Intake & Output 05/05/21 05/06/21 05/06/21 18:59 06:59 18:59 Intake Total 1820 1145 630 Output Total 0035 310 8230 Balance 215 860 -750 Weight 102 kg Intake: IV 1075 515 270 0.9 220 240 120 Amino Acid 5%-D15w+Lytes* 605 275 E* 1,000 ml @ 55 mls/hr IV .BY DURATION BALDOMERO Rx#: [id number] Fluconazole in NaCl,Iso- 50 50 Osm 100 mg In Saline 1 50ml.bag @ 50 mls/hr IVPB DAILY [facility] Rx#:[id number] Piperacillin-Tazobactam 3 200 100 .375 gm In Sodium Chloride 0.9% 100 ml @ 25 mls/hr IVPB Q8HR [facility]DOM[facility] Rx# :[id number] Tube Feeding 545 540 270 Other 200 90 90 Output: Gastric Drainage 500 900 Urine 305 285 180 Stool 800 300 Other: Voiding Method Indwelling Catheter Indwelling Catheter Indwelling Catheter - Exam GENERAL EXAM: Revealed 75-year-old female, lethargic, arousable HEAD: Normocephalic/atraumatic. EENT: PERRLA, EOMI, anicteric, no neck masses, nasogastric tube is intact draining bilious material. CHEST: Symmetrical expansion. LUNGS: The mechanical chest expansion, diminished breath sounds at the bases no rhonchi and no wheezes. CVS: Normal S1 and S2, no S3 gallop. ABDOMEN: Soft, nontender. No hepatosplenomegaly, normal bowel sounds, no guarding or rigidity. Mid abdominal incision clean dry and intact, covered with surgical dressing, epigastric jejunostomy tube in place, insertion site clean dry intact, left upper quadrant colostomy, with a small amount of liquid yellow stool EXTREMITIES: Good Pulses bilaterally no clubbing or cyanosis. MUSCULOSKELETAL: Generally weak otherwise unremarkable. SKIN: No rashes CENTRAL NERVOUS SYSTEM: Lethargic. Arousable and follows very simple instructions. - Labs CBC & Chem 7: 05/06/21 02:51 05/06/21 12:40 Labs: Abnormal Lab Results - Last 24 Hours (Table) 05/05/21 05/05/21 05/06/21 Range/Units 17:29 23:48 02:51 RBC (3.80-5.40) m/uL Hgb (11.4-16.0) gm/dL Hct (34.0-46.0) % RDW (11.5-15.5) % Plt Count (150-450) k/uL Lymphocytes # (Manual) (1.0-4.8) k/uL Potassium 3.1 L (3.5-5.1) mmol/L Carbon Dioxide 31 H (22-30) mmol/L BUN 22 H (7-17) mg/dL POC Glucose (mg/dL) 148 H 139 H (75-99) mg/dL Calcium 7.9 L (8.4-10.2) mg/dL Total Protein 4.2 L (6.3-8.2) g/dL Albumin 1.9 L (3.5-5.0) g/dL Crossmatch 05/06/21 05/06/21 05/06/21 Range/Units 02:51 04:54 05:51 RBC 2.41 L (3.80-5.40) m/uL Hgb 6.7 L* (11.4-16.0) gm/dL Hct 21.3 L (34.0-46.0) % RDW 19.6 H (11.5-15.5) % Plt Count 135 L (150-450) k/uL Lymphocytes # (Manual) 0.97 L (1.0-4.8) k/uL Potassium (3.5-5.1) mmol/L Carbon Dioxide (22-30) mmol/L BUN (7-17) mg/dL POC Glucose (mg/dL) 101 H (75-99) mg/dL Calcium (8.4-10.2) mg/dL Total Protein (6.3-8.2) g/dL Albumin (3.5-5.0) g/dL Crossmatch See Detail 05/06/21 05/06/21 05/06/21 Range/Units 07:50 11:42 12:40 RBC (3.80-5.40) m/uL Hgb (11.4-16.0) gm/dL Hct (34.0-46.0) % RDW (11.5-15.5) % Plt Count (150-450) k/uL Lymphocytes # (Manual) (1.0-4.8) k/uL Potassium 2.9 L (3.5-5.1) mmol/L Carbon Dioxide (22-30) mmol/L BUN (7-17) mg/dL POC Glucose (mg/dL) 101 H (75-99) mg/dL Calcium (8.4-10.2) mg/dL Total Protein (6.3-8.2) g/dL Albumin (3.5-5.0) g/dL Crossmatch See Detail Assessment and Plan Assessment: Impression: Postoperative day #6, patient is status post expiratory laparotomy, sigmoid colectomy, creation of end colostomy and repair of gastrostomy along with placement of the jejunal feeding tube . This was all secondary to displacement of PEG tube Acute abdominal sepsis secondary to above with pneumoperitoneum and gastric perforation in addition to all of this patient had a urinary tract infection. History of hydronephrosis and placement of right ureteral stent in December with subsequent removal in April of 2021, and unsuccessful attempt to place another ureteral stent, patient may require nephrostomy tube placement Acute kidney injury with hydronephrosis and acute tubular necrosis recovering nicely. 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 Chronic kidney disease stage II Chronic diastolic congestive heart failure Benign essential hypertension Dyslipidemia Hypothyroidism Recommendation: Continue aspiration precautions. Continue antibiotics including Zosyn and Diflucan. Enteral feeding via jejunostomy tube. Off TPN. Keep nasogastric tube in place since there is significant bilious drainage noted. Continue GI and DVT prophylaxis. Not quite ready to be transferred out of the ICU. We'll continue to follow. Time with Patient: Less than 30
[2021-05-06] MEDS: POTASSIUM CHLORIDE 20 MEQ in WATER FOR INJECTION 1 100ML.BAG IVPB SCH ×3 (13:34→17:39)
--- NOTE | 2021-05-06 13:58 | P.PN ---
Subjective Progress Note Date: 05/06/21 This is a 75-year-old female with past medical history of UTI Strep agalactiae - (group b) with Pyelonephritis, severe right hydronephrosis with right ureteral stent insertion to 12/26/20,CVA with residual left-sided weakness, expressive aphasia/TIA, hyperlipidemia, hypertension, chronic renal failure, hypo thyroidism, obesity, anxiety, bipolar, depression, former nicotine dependence presented to the ER via EMS for [facility] with reports that patient had mental status changes, combative over the last few days with an episode of vomiting. Patient's baseline is chronic residual left-sided weakness from prior CVA with expressive aphasia. Patient currently nonverbal, rigid, posturing, attempting to communicate with blinking of right eye. Febrile, T-max 100.3, WBC 13.1 yesterday down to 7.9. Maintained on vancomycin. Hemoglobin 8, platelets 217, glucose 104, potassium 2.8, magnesium 1.4 both being supplemented. Sodium 140, BUN 9, creatinine 0.73. Lactic acid 0.8. UA reporting urine WBCs 21, large leukocytes 1+ ketones. EKG reported normal sinus rhythm, left ventricular hypertrophy, chest x-ray reporting bibasilar atelectasis/subsegmental consolidation. Baca virus not detected. 04/18/[address] reported chronic appearing periventricular white matter ischemic type changes, stable .evaluated by neurology who attributes clinical presentation to suspected severe Parkinsonian from not having Sinemet for a few days. PEG tube placement pending .maintained on IV fluid hydration. Remains encephalopathic,more alert today, minimally conversing, not following commands. EEG/EMG completed, results pending T-max 99.9, normal WBC. Urine culture reporting enterococcus faecium.preliminary blood cultures reporting no growth at 48 hours Continues on vancomycin, creatinine 0.68. Hemoglobin 8.5, platelets 171. Potassium 3.2, magnesium 2.2. 04/21/2021 maintain IV fluid hydration. Lethargic, nausea and vomiting reported after meds administered via PEG-therefore has not received Sinemet yet today. Urology reconsult regarding cystoscopy for hydronephrosis. Impacted, fleets jermaine mas/disimpaction ordered. PICC line ordered for TPN, as patient has been without nutrition for several days prior to admission and has not been able to be started on PEG tube feedings. Afebrile. 04/22/2021 more alert, received Sinemet yesterday and this morning, no nausea vomiting. We'll reattempt tube feeds via PEG tube -if unable to tolerate then we'll proceed with PICC line and TPN. Received one fleets enema with small stool and reported. Potassium 2.8, receiving supplementation, magnesium 1.8. Urine remains cloudy. Evaluated by urology and scheduled for surgery/potential cystoscopy/right ureteral stent removal/8 ureteroscopy/possible replacement of stent on 04/24/2021. 04/23/2021 large bowel movement last night. Reports diffuse abdominal pain. Tolerating tube feeds at 40 MLS per hour/Goal of 55 with minimal to no residuals, no nausea or vomiting. Continues on vancomycin. Scheduled for cystoscopy tomorrow with right ureteral stent exchange. Afebrile. 04/24/2021 Recently returned from cystoscopy, verbal report of stent exchange- multiple attempts. Currently sedated, opens eyes and falls back asleep. 04/25/2021 postop day #1 from cystoscopy. Procedure note reports right ureteral stent removed, multiple attempts made to identify the triple-lumen unable to identify, contrast injected but did not pass into the renal pelvis, multiple attempts made to advance Glidewire-unsuccessful, and procedure was terminated. Bueno catheter with yellow urine with sediment. Patient sleepy but continues to complain of pain, attempting to use communication board. Afebrile, BMP pending. 04/26/2021: Patient is postop day 2 cystoscopy with removal of ureteral stent. There were unable to put another stent in. A urostomy tube is recommended if she continues to have problems per urology. She remains afebrile, blood pressure heart rate and restaurant rate remained stable. Infectious disease, urology and neurology are following. Their notes were reviewed today. Electrolytes are stable. Sugar slightly elevated before breakfast and 156. She large bowel movement last night. She is noted to have elevated TSH at 6.27. She remains on Synthroid of 150 g daily. She remains on vancomycin for her complicated UTI. Diflucan and added. Chillier self this morning is somnolent, but arousable. She can she's tired. She denies any other complaints when specifically asked. She continues to have significant upper extremity edema, most likely from the IV fluids she was on. Her tube feedings are currently at goal at 55 mL per hour. 04/27/2021: Patient status postop day #3 cystoscopy and ureteral stent removal. New stent could not be placed. Urology is following. They're considering a right-sided nephrostomy tube if her right lower quadrant pain is not resolved. Today she complains of right lower quadrant pain. She currently denies any nausea vomiting, chest pains, pressures, shortness of breath. She is nothing by mouth still. She remains afebrile, heart rate restaurant rate and blood pressure remained stable. Pulse oximetry remained stable. Hemoglobin this morning was 7.0. MCV is 86.7. Glucose remained fairly well controlled. She remains on vancomycin and Diflucan for a complicated UTI. Infectious disease is following. 04/28/2021 complains of right lower quadrant pain. Denies nausea. Renal function stable, BUN 15, creatinine 0.74. Afebrile, WBC 13.52. Hemoglobin 9.1, platelets 147. Blood sugars controlled. 04/29/2021 Tube feeds have remained off since Wednesday evening, positive for nausea vomiting last night, none this morning. Abdomen more distended, hypo- active bowel sounds. Diffuse tenderness.Positive bowel movement yesterday. Urology recommended no nephrostomy at this time , following closely with surgery. Surgery updated, recommending PEG tube be placed to gravity with a Bueno-initial flatus, trace dark brown drainage. Potassium 3.1. Afebrile, CBC pending. 04/30/2021 Yesterday WBC worsened, abdomen more distended .KUB and reported high-grade bowel obstruction, contrast within the stomach, vague density left upper quadrant, possible extravasation.CT of abdomen and pelvis completed yesterday reported high attenuation material from gastrostomy tube injection, contrast and peritoneal cavity around the spleen and liver in the upper abdomen, small pneumoperitoneum, gastrostomy tube did not appear to be in the stomach, multiple left-sided renal parapelvic cyst, moderate bilateral hydronephrosis on the right side, large parapelvic cyst, rectal fecal impaction with dilated large bowel and dilated small bowel, mechanical bowel obstruction, bilateral pleural effusions and basilar infiltrates and atelectasis, appears worse. Patient proceeded with exploratory laparotomy, converted to open procedure sigmoid gonzalo ctomy and creation of end colostomy and repair of gastrostomy along with placement of jejunal feeding tube. Returned to ICU, intubated, currently FiO2 50%, PEEP +5. Borderline hypotension ,maintained on IV fluid hydration of LR at 50 miles per hour, diprovan. Renal function mildly worsening, BUN 24, creatinine 1.14. Marginal urine output. Chest x-ray reported cardiomegaly and basilar atelectasis and small right pleural effusion. Continues on Diflucan and Zosyn as per ID. Telemetry sinus rhythm. Afebrile, normal WBC. Hemoglobin 10.8, platelets 216, INR 1.2, potassium 3.4, magnesium 2.1. 05/01/2021 remains on mechanical ventilation, FiO2 down to 40%/+5 of PEEP. Sedated on diprovan. Spontaneous Breathing trials being discussed. Diprovan recently weaned off, slowly waking up, discussing attempting CPAP trial. Significant endotracheal page secretions. Telemetry sinus rhythm 24-hour I&O reflecting a positive fluid balance ; received aggressive fluid boluses/resuscitation, required initiation of Levophed last night, currently on 2 mics. Chest x-ray reporting diffuse interstitial pattern with bilateral infiltrates, small effusion, venous congestion. Received a dose of Lasix ye sterday. Urine output improving. Renal function stable. PICC line placed yesterday with TPN initiated. Afebrile, normal WBC. Hemoglobin 8.4, platelets 179, sodium 136, potassium 3.9, magnesium 1.9, albumin 1.8. 05/02/2021 extubated yesterday, maintaining O2 sats in the 90s on 2 L nasal cannula. Borderline hypotension, continues on Levophed, currently 2 mics. Maintained on gentle IV fluid hydration, TPN, Zosyn and Diflucan. Large bowel movement rectally in addition to colostomy with loose stool. 24-hour I&O reflecting a positive fluid balance. Renal function stable Trickling of tube f eeds initiated. T-max 99.5, normal WBC. Hemoglobin 9.6, platelets 152. 6/ continues on Zosyn and Diflucan . Renal function stable. Complains of right-sided flank pain. Nephrostomy tube on hold as per urology.maintaining O2 sats in the 90s on 1 L nasal cannula . Chest x-ray reporting low lung volumes, possible basilar atelectasis Sinemet resumed on Wednesday, arousable, follows simple commands. Receiving TPN via PICC line and also on tube feeds at goal, tolerating well with minimal to no residuals. Hemoglobin 7.3. Potassium 3.0. 05/06/2021 hemoglobin 6.7, lab reporting more antibioties, sent out to the [facility], transfusion pending. Telemetry sinus rhythm with occasional PVCs. Potassium 3.1,potassium replacement in progress. TPN discontinued. Tube feeds converted over to a vital AF, at goal of 45 MLS/hr. Ostomy output very similar to tube feeding, watery. High NG and ostomy output. Shakes head yes to pain on the right lower abdominal/flank side. Objective - Vital Signs Vital signs: Vital Signs Temp 98.5 F 05/06/21 08:00 Pulse 79 05/06/21 09:00 Resp 16 05/06/21 09:00 BP 106/44 05/06/21 09:00 Pulse Ox 94 L 05/06/21 09:00 Intake & Output 05/05/21 05/06/21 05/06/21 18:59 06:59 18:59 Intake Total 1820 1145 405 Output Total 3686 064 0241 Balance 215 860 -985 Weight 102 kg Intake: IV 1075 515 210 0.9 220 240 60 Amino Acid 5%-D15w+Lytes* 605 275 E* 1,000 ml @ 55 mls/hr IV .BY DURATION BALDOMERO Rx#: [id number] Fluconazole in NaCl,Iso- 50 50 Osm 100 mg In Saline 1 50ml.bag @ 50 mls/hr IVPB DAILY [facility] Rx#:[id number] Piperacillin-Tazobactam 3 200 100 .375 gm In Sodium Chloride 0.9% 100 ml @ 25 mls/hr IVPB Q8HR [facility] Rx# :[id number] Tube Feeding 545 540 135 Other 200 90 60 Output: Gastric Drainage 500 900 Urine 305 285 90 Stool 800 400 Other: Voiding Method Indwelling Catheter Indwelling Catheter Indwelling Catheter - Exam - Exam General: sitting up in bed, sleepy, arouses easily, no acute distress. HEENT: PERRL. EOMI. conjunctivae normal. NG tube present with bilious drainage Neck: Supple, no JVD. Cardiac: Heart regular in rate and rhythm. No S3. No S4. No clicks, rubs. No murmur. Lungs: Clear breath sounds, no rhonchi, crackles, or wheezes,bilateral bases diminished. Abdomen: soft,distended, status post surgery,positive bowel sounds. jejunal tube with watery output. Midline Abdominal dressing clean dry and intact. Extremities: Significant Positive edema of all extremities, normal pulses. Skin: Warm and dry, Neurologic: Limited exam, follows simple commands. - Labs CBC & Chem 7: 05/06/21 02:51 05/06/21 12:40 Labs: Abnormal Lab Results - Last 24 Hours (Table) 05/05/21 05/05/21 05/05/21 Range/Units 11:27 17:29 23:48 RBC (3.80-5.40) m/uL Hgb (11.4-16.0) gm/dL Hct (34.0-46.0) % RDW (11.5-15.5) % Plt Count (150-450) k/uL Potassium (3.5-5.1) mmol/L Carbon Dioxide (22-30) mmol/L BUN (7-17) mg/dL POC Glucose (mg/dL) 168 H 148 H 139 H (75-99) mg/dL Calcium (8.4-10.2) mg/dL Total Protein (6.3-8.2) g/dL Albumin (3.5-5.0) g/dL Crossmatch 05/06/21 05/06/21 05/06/21 Range/Units 02:51 02:51 04:54 RBC 2.41 L (3.80-5.40) m/uL Hgb 6.7 L* (11.4-16.0) gm/dL Hct 21.3 L (34.0-46.0) % RDW 19.6 H (11.5-15.5) % Plt Count 135 L (150-450) k/uL Potassium 3.1 L (3.5-5.1) mmol/L Carbon Dioxide 31 H (22-30) mmol/L BUN 22 H (7-17) mg/dL POC Glucose (mg/dL) (75-99) mg/dL Calcium 7.9 L (8.4-10.2) mg/dL Total Protein 4.2 L (6.3-8.2) g/dL Albumin 1.9 L (3.5-5.0) g/dL Crossmatch See Detail 05/06/21 05/06/21 Range/Units 05:51 07:50 RBC (3.80-5.40) m/uL Hgb (11.4-16.0) gm/dL Hct (34.0-46.0) % RDW (11.5-15.5) % Plt Count (150-450) k/uL Potassium (3.5-5.1) mmol/L Carbon Dioxide (22-30) mmol/L BUN (7-17) mg/dL POC Glucose (mg/dL) 101 H (75-99) mg/dL Calcium (8.4-10.2) mg/dL Total Protein (6.3-8.2) g/dL Albumin (3.5-5.0) g/dL Crossmatch See Detail Assessment and Plan Assessment: Displaced PEG tube with extravasation of contrast and free air, sigmoid volvulus, fecal impaction, status post exploratory laparotomy, sigmoid colectomy, creation of end colostomy and repair of gastrostomy, jejunal feeding tube placement. Acute hypoxic respiratory failure, status/ post mechanical ventilator-dependent Hypovolemic hypotension Acute renal failure, ATN ,secondary to the above and hydronephrosis Sepsis,multifactorial, including multiple comorbidities ,complicated acute UTI ,severe right-sided hydronephrosis with right stent removal this admission,and #1, not present on admission. Acute toxic, metabolic encephalopathy,brain CT reported no acute infarcts, chronic stable changes, in a patient with history of CVA, possibly secondary to lack of Sinemet, levels ordered, suspect severe parkinsonism,Neurology following. Acute UTI, enterococcus faecium, in a patient with history of recurrent UTIs, recent acute UTI with Enterobacter aerogenes, complicated with bilateral hydronephrosis Bilateral hydronephrosis,no change in the right-sided hydronephrosis. Right ureteral stent insertion 01/06/21, obstruction of UPJ-status post cystoscopy with right stent removed, unable to replace. Nephrostomy pending. 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 Hypothyroidism Bipolar disorder Obesity, BMI 36 Normocytic anemia Status post PICC line with initiation of TPN Plan: Continue on current medication regime ,monitoring and symptomatic treatment. One unit PRBC transfusion pending. Potassium replacement as per ICU replacement protocol. Strict aspiration precautions.IV antibiotics as per ID. ICU management as per surgical services coordinator.Prognosis guarded given multiple complex medical issues. The impression and plan of care has been dictated as directed. : I performed a history and examination of this patient, discussed the same with the dictator. I agree with the dictator's note ,documented as a scribe. Any additional findings or plans will be noted.
[2021-05-06] MEDS ORDERED: POTASSIUM CHLORIDE ER 20 MEQ TAB.ER PO SCH (14:00)
[2021-05-06 17:43] LABS: Glucose,Whole Blood 106 mg/dL (75-99)
[2021-05-06 23:40] LABS: Glucose,Whole Blood 91 mg/dL (75-99)
[2021-05-07] MEDS: NOREPINEPHRINE 4 MG in SODIUM CHLORIDE 0.9% 250 ML IV SCH (02:25)
[2021-05-07 04:07] LABS: ALT <6 U/L (4-34); AST 14 U/L (14-36); African American GFR (CKD) 67 (>60 ml/min/1.73 sqM); Albumin 1.7 g/dL (3.5-5.0); Alkaline Phosphatase 105 U/L (38-126); Anion Gap 6 mmol/L; Blood Urea Nitrogen 20 mg/dL (7-17); Calcium 7.2 mg/dL (8.4-10.2); Carbon Dioxide 29 mmol/L (22-30); Chloride 108 mmol/L (98-107); Glucose 80 mg/dL (74-99); Magnesium 1.6 mg/dL (1.6-2.3); Non-African American GFR(CKD) 58 (>60 ml/min/1.73 sqM); Phosphorus 2.7 mg/dL (2.5-4.5); Potassium 3.2 mmol/L (3.5-5.1); Sodium 143 mmol/L (137-145); Total Bilirubin 0.2 mg/dL (0.2-1.3)
[2021-05-07 04:21] LABS: Anisocytosis Slight; HCT 21.6 % (34.0-46.0); HGB 7.1 gm/dL (11.4-16.0); Hypochromasia Slight; MCH 28.8 pg (25.0-35.0); MCHC 32.8 g/dL (31.0-37.0); MCV 87.7 fL (80.0-100.0); Mean Platelet Volume 9.2; Platelet Count 131 k/uL (150-450); Poikilocytosis Slight; RBC 2.47 m/uL (3.80-5.40); RDW 19.1 % (11.5-15.5); WBC 5.4 k/uL (3.8-10.6)
--- NOTE | 2021-05-07 04:26 | PN ---
PROGRESS NOTE DATE OF SERVICE: 05/06/2021 REASON FOR FOLLOWUP: Intraabdominal infection. INTERVAL HISTORY: Patient is afebrile. The patient is hemodynamically stable, not on pressor support. FiO2 is stable. Currently on 1 L nasal cannula. Still has significant output through the NG as well as through colostomy. The patient remains to be lethargic and unable to provide any history. PHYSICAL EXAMINATION: Blood pressure 104/58 with a pulse of 52, temperature 98.1. She is 96% on 1 L nasal cannula. General description is an elderly female lying in bed in no distress. Respiratory system: Unlabored breathing, decreased breath sounds in the base, with no wheeze. Heart S1, S2. Regular rate and rhythm. Abdomen: Soft, no tenderness. LABS: Hemoglobin 6.7, white count 6.9, BUN of 22, creatinine 1.04. DIAGNOSTIC IMPRESSION AND PLAN: Patient with an intraabdominal infection from perforated stomach from PEG tube as well as ischemic colitis from volvulus status post laparotomy and repair of the gastric perforation and sigmoid colectomy. Patient is covered with Zosyn. The patient's white count normalized. Continue current antibiotic while waiting for her condition to stabilize. Monitor clinical course closely. MMODL / IJN: [id number] /
[2021-05-07 05:59] LABS: Band Neutrophils % 22 %; Eosinophils # (M) 0.11 k/uL (0-0.7); Lymphocytes # (M) 1.08 k/uL (1.0-4.8); Metamyelocytes # (M) 0.05 k/uL (0); Metamyelocytes % 1 %; Monocytes # (M) 0.16 k/uL (0-1.0); Neutrophils % (M) 53 %; Nucleated Red Blood Cells 0 /100 WBC (0-0); Polychromasia Present; Total Cells Counted 200
[2021-05-07] MEDS: POTASSIUM CHLORIDE 20 MEQ in WATER FOR INJECTION 1 100ML.BAG IVPB SCH ×2 (06:40→08:11)
[2021-05-07] MEDS: MAGNESIUM SULFATE-D5W PMX 1 GM in DEXTROSE/WATER 1 100ML.BAG IVPB SCH ×2 (06:40→08:12)
[2021-05-07] MEDS: INSULIN ASPART (NovoLOG) 100 UNIT/ML VIAL SQ SCH ×4 (06:41→23:33)
[2021-05-07] MEDS: PIPERACILLIN-TAZOBACTAM 3.375 GM in SODIUM CHLORIDE 0.9% 100 ML IVPB SCH ×3 (08:11→23:32)
[2021-05-07] MEDS: HEPARIN SODIUM,PORCINE/PF 5,000 UNIT/0.5 ML SYRINGE SQ SCH ×3 (08:11→23:32)
[2021-05-07] MEDS: LEVOTHYROXINE IVP 100 MCG/5 ML VIAL IV SCH (08:13)
[2021-05-07] MEDS: CARBIDOPA-LEVODOPA 25-100 MG 1 EACH TAB PO SCH ×4 (08:13→20:28)
[2021-05-07] MEDS: PANTOPRAZOLE 40 MG/10 ML VIAL IV SCH (08:13)
[2021-05-07] MEDS: NYSTATIN 100,000 UNIT/GM POWD 15 GM TOPICAL SCH (08:14)
[2021-05-07] MEDS: FLUCONAZOLE 100 MG TAB PO SCH (08:14)
--- NOTE | 2021-05-07 10:01 | XR ---
EXAMINATION TYPE: XR chest 1V portable DATE OF EXAM: 05/07/2021 COMPARISON: Prior chest x-ray 05/05/2021 HISTORY: Abnormal chest x-ray, lung assessment TECHNIQUE: Single frontal view of the chest is obtained. FINDINGS: The patient is rotated. Left-sided PICC line shows the distal tip overlying the superior v alfredo cava. There is an NG tube coiled in the stomach. Surgical clips are present right upper quadrant. The aorta is dense. Cardiac mediastinal silhouette shows an enlarged heart. Apical pleural thickenin g is again noted. Lung volumes are improved. Patchy bibasilar densities noted. There is no evident pn eumothorax. Question minimal blunting of the right costophrenic angle. There are overlying artifacts. IMPRESSION: Improvement in lung volume, that may be basilar atelectasis, correlate to exclude pneumo pennie, difficult to exclude small effusion
[2021-05-07] MEDS: 0.9% NACL WITH KCL 40 MEQ/L 1,000 ML IV SCH ×2 (10:06→19:31)
[2021-05-07 11:48] LABS: Glucose,Whole Blood 96 mg/dL (75-99)
--- NOTE | 2021-05-07 12:42 | P.PN ---
Subjective Progress Note Date: 05/07/21 Principal diagnosis: Abdominal sepsis secondary to gastric perforation and displaced PEG tube with pneumoperitoneum, sigmoid volvulus and fecal impaction status post expiratory laparotomy and sigmoid colectomy day #7 This is a 75-year-old white female patient a resident of a local [facility], who was initially admitted to the hospital on 04/15/2021 when she was brought to the hospital per EMS with altered mentation, and vomiting. Patient was receiving Rocephin for a urinary tract infection at the nursing facility and patient is known to have a history of multiple recurrent urinary tract infections and history of right ureteral stent placement. Patient at baseline is a poor historian, related to previous history of CVA and patient has left-sided weakness and expressive aphasia. Other medical history significant for hyperlipidemia, hypertension, hypothyroidism, Parkinson's disease, anxiety, depression, degenerative arthritis. Most recent urine culture from February and March 2021 showed evidence of enterococcus with multiple resistances and she was placed on vancomycin in the emergency department. CT of the abdomen and pelvis on admission showed marked right hydronephrosis, and a small left hydronephrosis similar findings on the CT of the abdomen and pelvis from 03/18/2021. Urology is following and was planning on insertion of a nephrostomy. Neurological workup showed a brain CT with chronic appearing periventricular white matter of ischemic type, which was stable. EEG showed an abnormal EEG due to the background slowing of mild to moderate degree suggestive of generalized cerebral dysfunction as seen with toxic metabolic encephalopathy and diffuse structural brain abnormality. No evidence of epileptiform activity was seen. Neurology's impression was that the altered mental status was likely due to toxic metabolic encephalopathy. Patient continued to be nauseous and vomiting and was unable to take any oral medications or oral feedings. On 04/19/2021 patient underwent EGD and PEG tube placement by Dr. Dempsey. The EGD showed no abnormalities within the stomach and duodenum. However the patient continued to have intermittent nausea and vomiting, and tube feedings were on hold and the PEG tube was connected to dependent drainage. On 04/24/2021 patient underwent cystoscopy, right retrograde pyelogram and right ureteroscopy, right ureteral stent was removed, however attempts to replace it were unsuccessful, and nephrostomy tube insertion was planned. On 04/29/2021 patient developed worsening tenderness and distention of the abdomen, she continued to have nausea with vomiting, and her leukocytosis was worsening. CT of the abdomen and pelvis on 04/29/2021 showed extravasation of the contrast from the PEG tube, with a concern of dislodged PEG tube from the stomach with a small amount of air in the peritoneum. Also there was a large stool ball and markedly distended possibly volvulized sigmoid colon. Right nephrostomy procedure was placed on hold, and patient was taken to the operating room and underwent exploratory laparotomy which was converted to open procedure, sigmoid colectomy, and creation of end colostomy and repair of gastrostomy along with placement of jejunal feeding tube. Patient was admitted to the intensive care unit following her procedure earlier this morning at around 3:00 this morning intubated and on mechanical ventilator support. This morning she is on assist-control mode of ventilation with a rate of 14, tidal vital 300, FiO2 of 60% and PEEP of 5, this morning's blood gas showed a pO2 of 219, pCO2 42, pH of 7.47, this was done on 100% FiO2 and this was subsequently dropped to 60%. She is on lactated Ringer's at 50 ML per hour, Diprivan and is at 30 ML per hour, hemodynamically she is stable, not requiring any vasopressor support, she is in sinus mechanism, blood pressure is 100/55. Her chest x-ray today has been reviewed and not showing ET tube and OG tube in appropriate positions, no pneumothorax, the basilar atelectasis, low lung volumes. Breasts the blood work reveals white count of 8.2, hemoglobin is 10.8, platelet count is 216, INR is 1.2, sodium is 137, potassium is 3.4, chloride is 101, CO2 is 30, BUN is 24, creatinine is 1.14. Patient's urine output has been quite poor, and she has only produced 35 mL of urine overnight. Current antibiotic coverage includes Diflucan and Zosyn for evidence of enterococcus faecium in the urine, and Fani albicans in the urine culture on urine culture from 04/20/2021. ID service is following. On 05/01/2021 patient seen in follow-up in the intensive care unit. She remains sedated, and intubated on mechanical ventilator, she is currently on assist control mode of ventilation with a rate of 14, tidal volume 300, FiO2 of 40% and PEEP of 5. This morning his blood gases show pO2 of 93, pCO2 43, and pH of 7.48 and this was done on FiO2 of 50% and it has since been dropped to 40%. She is currently on Diprivan at 40 mics per kilo per minute, lactated Ringer's at 100 ML per hour, 0.9 was seen at 20 ML per hour. Levofed is at 2 mics per minute. Patient was started on TPN yesterday which is infusing at 30 ML per hour, patient's urine output has improved in the last 24 hours and responds to IV flu ids and one dose of Lasix was given yesterday in the afternoon. However she received significant amount of IV fluid boluses, and she is in positive net fluid balance of 4.3 L or last 24 hours. Patient has significant generalized edema. This morning's chest x-ray is pending, this morning's labs have been reviewed showing white blood cell count of 7.1, hemoglobin of 8.4, platelet count is 179, sodium is 136, the rest of the electrolytes are unremarkable, BUN is 28 creatinine is 1.14. She is currently in sinus mechanism with a rate of 89 BPM, no arrhythmias overnight, lung sounds are clear, abdomen is soft, did not incision is clean dry and intact, left upper quadrant colostomy and placed on a to produce small amount of liquid yellowish colored stool, right upper quadrant J-tube in place, and patient has not been initiated on not tube feedings yet. Overall hemodynamically she is stable, minimal amount of pressors, urine output is improving, renal profile is stable, FiO2 requirement is 40%, urology is following, and patient is being considered for nephrostomy tube however this has not been scheduled yet. We'll proceed with spontaneous awakening trial and a spontaneous breathing trial this morning On 05/02/2021 patient seen in follow-up in intensive care unit, she was successfully weaned and next visit for mechanical ventilator yesterday on 05/01/2021. This morning she is resting in bed, she is lethargic, she does not open eyes to command, does not follow any commands, she is currently just on 2 L of oxygen with a pulse ox of 96%, does not appear to be in any respiratory distress, does withdraw from pain. She is currently on 0.9 normal saline at a rate of 50 ML per hour, TPN is at 30 ML per hour, still has a leave of fed infusing at 2 mics per minute. Patient appears to be quite generally fluid overloaded, with extensive edema involving her upper and lower extremities. Lung sounds are positive for minimal wheezes, no rhonchi. Today's chest x-ray reveals central venous congestion, and possibility of left pleural effusion. We'll cut back IV fluids to KVO. Remains on antibiotics in the form of Zosyn and Diflucan. She's been afebrile. Abdomen is soft, and her colostomy is putting out yellow semi-liquid stool. G-tube is in place, however tube feedings have not been started yet, patient has been on TPN. Apparently patient has also passed a bowel movement per rectum. There are positive bowel sounds. Labs have been reviewed showing white blood cell count of 9.2, hemoglobin of 9.6, platelet count is 152, lites are within normal limits, B1 of 25 creatinine was 1.13, these were within normal limits. Urine output been in the order of 50-60 ML per hour. And patient has produced 2.1 L in urine output over last 24 hours, and she is visiting positive net fluid balance of 400 mL over last 24 hours. 19 2020, the patient is being seen in follow-up in the intensive care unit. As stated earlier, the patient's back to has been removed and the patient was given a J-tube and a colostomy. She continues to have an NG tube in place. Enteral feeding was started yesterday and she is currently receiving Jevity at the rate of 20 mL an hour with a goal of 55. At the same time, the patient was started on TPN which is running at 30 mL an hour . Jevity is being gradually advanced and the goal is to get rid of the TPN with the next 24-48 hours. Meanwhile, the colostomy site is functional. Surgical with that is dry clean and intact. Output from the NG is minimal at this point in time. She is quite debilitated. She is arousable. She is having extensive edema in all 4 extremities and she was given a dose of Lasix yesterday. She remains on a combination of Zosyn and Diflucan. She is afebrile for now. On her blood work, she has a white cell, 3.3 with a hemoglobin of 7.2 at which is lower compared to yesterday. Platelet count is up to 129 ,patient's current cardiac rhythm is sinus.clinically, the patient looks around. She doesn't communicate. She grunts and moans on and off and I think that part of her baseline.patient's creatinine remains stable. The patient was given a dose of Lasix yesterday and she responded quite a bit and she has been a significant negative fluid balance of at least 3 L over the past 24 hours. Patient is seen today 05/04/2021 in follow-up in the intensive care unit. Her status has been about the same overnight. She still maintaining good O2 saturations in the upper 90s on either of oxygen. She remains on TPN and lipids. Nasogastric tube remains in place. She has Jevity for nutritional support through the J-tube. Currently at 40 ML's per hour. Goal is 55 mls per hour. Ostomy is functioning approximately 800 mL of liquid return in the past 12 hours. Urine output remains good at approximately 100 mL per hour. She's been afebrile. Hemodynamically stable. Remains on Zosyn and Diflucan. He mostly has garbled speech. Follow any meaningful commands. We believe this is her baseline. White count 4.1. Hemoglobin 7.3. Platelet count 143. Sodium 140. Potassium 3.0. Creatinine 1.07. X-ray continues to revealed chronic changes with patchy left basilar infiltrate/atelectasis. She remains in a negative balance. No significant change compared to previous. She remains on heparin for DVT prophylaxis. Patient was reevaluated today on 05/05/2021, patient remains in the ICU. Still on 1 L nasal cannula, O2 saturations 94%, patient is on TPN, and she is also on Jevity via J-tube which will be switched to vital AF today. Patient seems to be sleepy, but arousable, following very simple instructions like wiggling toes squeezing hands and sticking out tongue. Obviously she's comprehending what she is being controlled. Patient seems to be generally frail, and weak. Nasogas tric tube remains in place, and bilious drainage is noted from the nasogastric tube. Patient is receiving enteral eating via jejunostomy tube and she also receiving TPN. Her ostomy is functioning well, urine output is perfect. Patient is hemodynamically stable, remains on Zosyn and Diflucan. Speech remains garbled. CBC is relatively normal except for hemoglobin of 7.3, potassium is 3. Profile is relatively normal creatinine is 1.07 chest x-ray showed low lung volumes and basilar atelectasis no clear-cut evidence of pneumonia. Patient was reevaluated today on 05/06/2021, remains in the ICU on 1 L nasal cannula, she remains encephalopathic, she is on 1 L FiO2 with O2 sat showed 95%. IV fluid is at KVO. Patient is in sinus rhythm remains on enteral feeding via jejunostomy tube, she is on vital af at 45 ML per hour. Continues to have significant output from the nasogastric tube about 1.1 L and over 1800 mL from the ostomy. Lasix remains on hold since the patient has significant output on her own. And we will continue tube feeding. Considering her mental status and her overall clinical status is marginal, I plan to keep the patient in the ICU. Hemoglobin today is down to 6.7, and I have ordered a unit of packed RBCs that is pending. Potassium is low at 2.9 being corrected as per protocol. Reevaluated today on 05/07/2021, patient remains in the ICU, on 1 L nasal cannula . IV fluids remains at KVO but I went ahead and increased it to 100 mL per hour since the patient is having significant output from the ostomy tube and she is having significant amount of drainage from the nasogastric tube. Still on enteral feeding via jejunostomy tube. Her nasogastric tube put out over 1500 mL in the last 24 hours and her colostomy put out over 700 mL overnight only. Hence I felt the need to increase her IV fluid. Patient remains sleepy and weak. She does wake up and follows very simple instructions like wiggling toes and squeezing hands only. Overall she remains relatively encephalopathic. CBC is relatively normal except for hemoglobin of 7.1. Patient did receive a unit of packed RBCs yesterday. She received a total of 2 units since admission Objective - Vital Signs Vital signs: Vital Signs Temp 97.7 F 05/07/21 08:00 Pulse 84 05/07/21 11:00 Resp 19 05/07/21 11:00 BP 125/62 05/07/21 11:00 Pulse Ox 97 05/07/21 11:00 Intake & Output 05/06/21 05/07/21 05/07/21 18:59 06:59 18:59 Intake Total 1450 1213 690 Output Total 2940 1640 115 Balance -1490 -427 575 Intake: IV 490 260 380 0.9 240 260 80 Fluconazole in NaCl,Iso- 50 Osm 100 mg In Saline 1 50ml.bag @ 50 mls/hr IVPB DAILY [facility] Rx#:[id number] Magnesium Sulfate-D5w Pmx 100 1 gm In Dextrose/Water 1 100ml.bag @ 100 mls/hr IVPB Q1H [facility] Rx#: [id number] Piperacillin-Tazobactam 3 200 100 .375 gm In Sodium Chloride 0.9% 100 ml @ 25 mls/hr IVPB Q8HR [facility] Rx# :[id number] Potassium Chloride 20 meq 100 In Water For Injection 1 100ml.bag @ 50 mls/hr IVPB Q2H [facility] Rx#: [id number] Intake, IV Titration 300 Amount Potassium Chloride 20 meq 300 In Water For Injection 1 100ml.bag @ 50 mls/hr IVPB Q2H [facility] Rx#: [id number] Tube Feeding 540 585 180 Blood Product 278 Rc Pheresis 2 As3 Unit 278 [id number] Other 120 90 130 Output: Gastric Drainage 1800 600 Urine 340 390 115 Stool 800 650 Other: Voiding Method Indwelling Catheter Indwelling Catheter - Exam GENERAL EXAM: Revealed 75-year-old female, generally weak, encephalopathic, but wakes up and follows simple instructions only. On 1 L nasal cannula. HEAD: Normocephalic/atraumatic. EENT: PERRLA, EOMI, anicteric, no neck masses, nasogastric tube is intact , draining over 1500 mL in the last 24 hours CHEST: Symmetrical expansion. LUNGS: The mechanical chest expansion, diminished breath sounds at the bases no rhonchi and no wheezes. CVS: Normal S1 and S2, no S3 gallop. ABDOMEN: Soft, nontender. No hepatosplenomegaly, normal bowel sounds, no gua rding or rigidity. Mid abdominal incision clean dry and intact, covered with surgical dressing, epigastric jejunostomy tube in place, insertion site clean dry intact, left upper quadrant colostomy, with a small amount of liquid yellow stool EXTREMITIES: Good Pulses bilaterally no clubbing or cyanosis. 2+ bipedal edema MUSCULOSKELETAL: Generally weak otherwise unremarkable. SKIN: No rashes CENTRAL NERVOUS SYSTEM: Lethargic. Arousable and follows very simple instructions. - Labs CBC & Chem 7: 05/07/21 03:30 05/07/21 03:30 Labs: Abnormal Lab Results - Last 24 Hours (Table) 05/06/21 05/06/21 05/06/21 Range/Units 02:51 07:50 12:40 RBC (3.80-5.40) m/uL Hgb (11.4-16.0) gm/dL Hct (34.0-46.0) % RDW (11.5-15.5) % Plt Count (150-450) k/uL Lymphocytes # (Manual) 0.97 L (1.0-4.8) k/uL Metamyelocytes # (Man) (0) k/uL Potassium 2.9 L (3.5-5.1) mmol/L Chloride (98-107) mmol/L BUN (7-17) mg/dL POC Glucose (mg/dL) (75-99) mg/dL Calcium (8.4-10.2) mg/dL Total Protein (6.3-8.2) g/dL Albumin (3.5-5.0) g/dL Crossmatch See Detail 05/06/21 05/07/21 05/07/21 Range/Units 17:41 03:30 03:30 RBC 2.47 L (3.80-5.40) m/uL Hgb 7.1 L (11.4-16.0) gm/dL Hct 21.6 L (34.0-46.0) % RDW 19.1 H (11.5-15.5) % Plt Count 131 L (150-450) k/uL Lymphocytes # (Manual) (1.0-4.8) k/uL Metamyelocytes # (Man) 0.05 H (0) k/uL Potassium 3.2 L (3.5-5.1) mmol/L Chloride 108 H (98-107) mmol/L BUN 20 H (7-17) mg/dL POC Glucose (mg/dL) 106 H (75-99) mg/dL Calcium 7.2 L (8.4-10.2) mg/dL Total Protein 4.0 L (6.3-8.2) g/dL Albumin 1.7 L (3.5-5.0) g/dL Crossmatch Assessment and Plan Assessment: Impression: Postoperative day #7 patient is status post expiratory laparotomy, sigmoid colectomy, creation of end colostomy and repair of gastrostomy along with placement of the jejunal feeding tube . This was all secondary to displacement of PEG tube Acute abdominal sepsis secondary to above with pneumoperitoneum and gastric perforation in addition to all of this patient had a urinary tract infection. History of hydronephrosis and placement of right ureteral stent in December with subsequent removal in April of 2021, and unsuccessful attempt to place another ureteral stent, patient may require nephrostomy tube placement Acute kidney injury with hydronephrosis and acute tubular necrosis recovering nicely. 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 Chronic kidney disease stage II Chronic diastolic congestive heart failure Benign essential hypertension Dyslipidemia Hypothyroidism Acute blood loss anemia, given 1 unit of packed RBCs yesterday. Recommendation: Increase IV fluid to 100 mL per hour. Continue to monitor daily electrolytes and CBC. Continue aspiration precautions. Continue antibiotics including Zosyn and Diflucan. Enteral feeding via jejunostomy tube. Off TPN. Keep nasogastric tube in place since there is significant bilious drainage noted. Continue GI and DVT prophylaxis. Not quite ready to be transferred out of the ICU. Strongly recommend addressing CODE STATUS with family by the primary care physician, since long-term prognosis seems extremely poor and guarded, and obviously quality of life is a major issue. Continue to follow Time with Patient: Less than 30
--- NOTE | 2021-05-07 15:11 | P.PN ---
Subjective Progress Note Date: 05/07/21 resting comfortably in bed Objective - Vital Signs Vital signs: Vital Signs Temp 97.8 F 05/07/21 12:00 Pulse 84 05/07/21 13:00 Resp 22 05/07/21 13:00 BP 112/54 05/07/21 13:00 Pulse Ox 98 05/07/21 13:00 Intake & Output 05/06/21 05/07/21 05/07/21 18:59 06:59 18:59 Intake Total 1450 1213 1090 Output Total 2940 1640 155 Balance -1490 -427 935 Intake: IV 490 260 660 0.9 240 260 60 0.9% NaCl with KCl 40 Meq 300 /l 1,000 ml @ 100 mls/hr IV .Q10H [facility] Rx#: [id number] Fluconazole in NaCl,Iso- 50 Osm 100 mg In Saline 1 50ml.bag @ 50 mls/hr IVPB DAILY [facility] Rx#:[id number] Magnesium Sulfate-D5w Pmx 100 1 gm In Dextrose/Water 1 100ml.bag @ 100 mls/hr IVPB Q1H [facility] Rx#: [id number] Piperacillin-Tazobactam 3 200 100 .375 gm In Sodium Chloride 0.9% 100 ml @ 25 mls/hr IVPB Q8HR [facility] Rx# :[id number] Potassium Chloride 20 meq 100 In Water For Injection 1 100ml.bag @ 50 mls/hr IVPB Q2H [facility] Rx#: [id number] Intake, IV Titration 300 Amount Potassium Chloride 20 meq 300 In Water For Injection 1 100ml.bag @ 50 mls/hr IVPB Q2H [facility] Rx#: [id number] Tube Feeding 540 585 270 Blood Product 278 Rc Pheresis 2 As3 Unit 278 [id number] Other 120 90 160 Output: Gastric Drainage 1800 600 Urine 340 390 155 Stool 800 650 Other: Voiding Method Indwelling Catheter Indwelling Catheter - Constitutional General appearance: Present: no acute distress - Cardiovascular Rhythm: regular - Gastrointestinal Gastrointestinal Comment(s): S/NT/ND Jtube in place ostomy pink patent with stool in bag consistent with tube feeds - Labs CBC & Chem 7: 05/07/21 03:30 05/07/21 03:30 Labs: Abnormal Lab Results - Last 24 Hours (Table) 05/06/21 05/06/21 05/07/21 Range/Units 07:50 17:41 03:30 RBC (3.80-5.40) m/uL Hgb (11.4-16.0) gm/dL Hct (34.0-46.0) % RDW (11.5-15.5) % Plt Count (150-450) k/uL Metamyelocytes # (Man) (0) k/uL Potassium 3.2 L (3.5-5.1) mmol/L Chloride 108 H (98-107) mmol/L BUN 20 H (7-17) mg/dL POC Glucose (mg/dL) 106 H (75-99) mg/dL Calcium 7.2 L (8.4-10.2) mg/dL Total Protein 4.0 L (6.3-8.2) g/dL Albumin 1.7 L (3.5-5.0) g/dL Crossmatch See Detail 05/07/21 Range/Units 03:30 RBC 2.47 L (3.80-5.40) m/uL Hgb 7.1 L (11.4-16.0) gm/dL Hct 21.6 L (34.0-46.0) % RDW 19.1 H (11.5-15.5) % Plt Count 131 L (150-450) k/uL Metamyelocytes # (Man) 0.05 H (0) k/uL Potassium (3.5-5.1) mmol/L Chloride (98-107) mmol/L BUN (7-17) mg/dL POC Glucose (mg/dL) (75-99) mg/dL Calcium (8.4-10.2) mg/dL Total Protein (6.3-8.2) g/dL Albumin (3.5-5.0) g/dL Crossmatch Assessment and Plan Assessment: S/P Ex Lap resection of sigmoid colon with end colostomy, repair of gastrotomy from dislodged peg tube, and placement of feeding J tube Plan: Patient is surgically stable, nutrition recs to optimize tube feeding formula.
--- NOTE | 2021-05-07 15:58 | US ---
EXAMINATION TYPE: US kidneys/renal and bladder DATE OF EXAM: 05/07/2021 COMPARISON: CT 04/15/2021, 04/29/2021 CLINICAL HISTORY: Decreased Urine Output, prior stent. MEASUREMENTS: RENAL SIZE: Rt Kidney: 11.6 x 6.6 x 5.9cm Lt Kidney: 11.9 x 5.5 x 5.5cm Rt Kidney: severe hydronephrosis Lt Kidney: mild hydronephrosis ICU patient done portable, large body habitus with interstitial edema, technically difficult study. B ladder was not imaged IMPRESSION: Severe hydronephrosis is again noted on the right, findings in the left likely represent parapelvic c yst. Of note the double-J stent seen on previous CT scans may not have been within the renal collecti ng system. Suspected ureteropelvic junction obstruction on the right, chronic.
--- NOTE | 2021-05-07 16:09 | P.PN ---
Subjective Progress Note Date: 05/07/21 This is a 75-year-old female with past medical history of UTI Strep agalactiae - (group b) with Pyelonephritis, severe right hydronephrosis with right ureteral stent insertion to 12/26/20,CVA with residual left-sided weakness, expressive aphasia/TIA, hyperlipidemia, hypertension, chronic renal failure, hypo thyroidism, obesity, anxiety, bipolar, depression, former nicotine dependence presented to the ER via EMS for [facility] with reports that patient had mental status changes, combative over the last few days with an episode of vomiting. Patient's baseline is chronic residual left-sided weakness from prior CVA with expressive aphasia. Patient currently nonverbal, rigid, posturing, attempting to communicate with blinking of right eye. Febrile, T-max 100.3, WBC 13.1 yesterday down to 7.9. Maintained on vancomycin. Hemoglobin 8, platelets 217, glucose 104, potassium 2.8, magnesium 1.4 both being supplemented. Sodium 140, BUN 9, creatinine 0.73. Lactic acid 0.8. UA reporting urine WBCs 21, large leukocytes 1+ ketones. EKG reported normal sinus rhythm, left ventricular hypertrophy, chest x-ray reporting bibasilar atelectasis/subsegmental consolidation. Baca virus not detected. 04/18/[address] reported chronic appearing periventricular white matter ischemic type changes, stable .evaluated by neurology who attributes clinical presentation to suspected severe Parkinsonian from not having Sinemet for a few days. PEG tube placement pending .maintained on IV fluid hydration. Remains encephalopathic,more alert today, minimally conversing, not following commands. EEG/EMG completed, results pending T-max 99.9, normal WBC. Urine culture reporting enterococcus faecium.preliminary blood cultures reporting no growth at 48 hours Continues on vancomycin, creatinine 0.68. Hemoglobin 8.5, platelets 171. Potassium 3.2, magnesium 2.2. 04/21/2021 maintain IV fluid hydration. Lethargic, nausea and vomiting reported after meds administered via PEG-therefore has not received Sinemet yet today. Urology reconsult regarding cystoscopy for hydronephrosis. Impacted, fleets jermaine mas/disimpaction ordered. PICC line ordered for TPN, as patient has been without nutrition for several days prior to admission and has not been able to be started on PEG tube feedings. Afebrile. 04/22/2021 more alert, received Sinemet yesterday and this morning, no nausea vomiting. We'll reattempt tube feeds via PEG tube -if unable to tolerate then we'll proceed with PICC line and TPN. Received one fleets enema with small stool and reported. Potassium 2.8, receiving supplementation, magnesium 1.8. Urine remains cloudy. Evaluated by urology and scheduled for surgery/potential cystoscopy/right ureteral stent removal/8 ureteroscopy/possible replacement of stent on 04/24/2021. 04/23/2021 large bowel movement last night. Reports diffuse abdominal pain. Tolerating tube feeds at 40 MLS per hour/Goal of 55 with minimal to no residuals, no nausea or vomiting. Continues on vancomycin. Scheduled for cystoscopy tomorrow with right ureteral stent exchange. Afebrile. 04/24/2021 Recently returned from cystoscopy, verbal report of stent exchange- multiple attempts. Currently sedated, opens eyes and falls back asleep. 04/25/2021 postop day #1 from cystoscopy. Procedure note reports right ureteral stent removed, multiple attempts made to identify the triple-lumen unable to identify, contrast injected but did not pass into the renal pelvis, multiple attempts made to advance Glidewire-unsuccessful, and procedure was terminated. Bueno catheter with yellow urine with sediment. Patient sleepy but continues to complain of pain, attempting to use communication board. Afebrile, BMP pending. 04/26/2021: Patient is postop day 2 cystoscopy with removal of ureteral stent. There were unable to put another stent in. A urostomy tube is recommended if she continues to have problems per urology. She remains afebrile, blood pressure heart rate and restaurant rate remained stable. Infectious disease, urology and neurology are following. Their notes were reviewed today. Electrolytes are stable. Sugar slightly elevated before breakfast and 156. She large bowel movement last night. She is noted to have elevated TSH at 6.27. She remains on Synthroid of 150 g daily. She remains on vancomycin for her complicated UTI. Diflucan and added. Chillier self this morning is somnolent, but arousable. She can she's tired. She denies any other complaints when specifically asked. She continues to have significant upper extremity edema, most likely from the IV fluids she was on. Her tube feedings are currently at goal at 55 mL per hour. 04/27/2021: Patient status postop day #3 cystoscopy and ureteral stent removal. New stent could not be placed. Urology is following. They're considering a right-sided nephrostomy tube if her right lower quadrant pain is not resolved. Today she complains of right lower quadrant pain. She currently denies any nausea vomiting, chest pains, pressures, shortness of breath. She is nothing by mouth still. She remains afebrile, heart rate restaurant rate and blood pressure remained stable. Pulse oximetry remained stable. Hemoglobin this morning was 7.0. MCV is 86.7. Glucose remained fairly well controlled. She remains on vancomycin and Diflucan for a complicated UTI. Infectious disease is following. 04/28/2021 complains of right lower quadrant pain. Denies nausea. Renal function stable, BUN 15, creatinine 0.74. Afebrile, WBC 13.52. Hemoglobin 9.1, platelets 147. Blood sugars controlled. 04/29/2021 Tube feeds have remained off since Wednesday evening, positive for nausea vomiting last night, none this morning. Abdomen more distended, hypo- active bowel sounds. Diffuse tenderness.Positive bowel movement yesterday. Urology recommended no nephrostomy at this time , following closely with surgery. Surgery updated, recommending PEG tube be placed to gravity with a Bueno-initial flatus, trace dark brown drainage. Potassium 3.1. Afebrile, CBC pending. 04/30/2021 Yesterday WBC worsened, abdomen more distended .KUB and reported high-grade bowel obstruction, contrast within the stomach, vague density left upper quadrant, possible extravasation.CT of abdomen and pelvis completed yesterday reported high attenuation material from gastrostomy tube injection, contrast and peritoneal cavity around the spleen and liver in the upper abdomen, small pneumoperitoneum, gastrostomy tube did not appear to be in the stomach, multiple left-sided renal parapelvic cyst, moderate bilateral hydronephrosis on the right side, large parapelvic cyst, rectal fecal impaction with dilated large bowel and dilated small bowel, mechanical bowel obstruction, bilateral pleural effusions and basilar infiltrates and atelectasis, appears worse. Patient proceeded with exploratory laparotomy, converted to open procedure sigmoid gonzalo ctomy and creation of end colostomy and repair of gastrostomy along with placement of jejunal feeding tube. Returned to ICU, intubated, currently FiO2 50%, PEEP +5. Borderline hypotension ,maintained on IV fluid hydration of LR at 50 miles per hour, diprovan. Renal function mildly worsening, BUN 24, creatinine 1.14. Marginal urine output. Chest x-ray reported cardiomegaly and basilar atelectasis and small right pleural effusion. Continues on Diflucan and Zosyn as per ID. Telemetry sinus rhythm. Afebrile, normal WBC. Hemoglobin 10.8, platelets 216, INR 1.2, potassium 3.4, magnesium 2.1. 05/01/2021 remains on mechanical ventilation, FiO2 down to 40%/+5 of PEEP. Sedated on diprovan. Spontaneous Breathing trials being discussed. Diprovan recently weaned off, slowly waking up, discussing attempting CPAP trial. Significant endotracheal page secretions. Telemetry sinus rhythm 24-hour I&O reflecting a positive fluid balance ; received aggressive fluid boluses/resuscitation, required initiation of Levophed last night, currently on 2 mics. Chest x-ray reporting diffuse interstitial pattern with bilateral infiltrates, small effusion, venous congestion. Received a dose of Lasix ye sterday. Urine output improving. Renal function stable. PICC line placed yesterday with TPN initiated. Afebrile, normal WBC. Hemoglobin 8.4, platelets 179, sodium 136, potassium 3.9, magnesium 1.9, albumin 1.8. 05/02/2021 extubated yesterday, maintaining O2 sats in the 90s on 2 L nasal cannula. Borderline hypotension, continues on Levophed, currently 2 mics. Maintained on gentle IV fluid hydration, TPN, Zosyn and Diflucan. Large bowel movement rectally in addition to colostomy with loose stool. 24-hour I&O reflecting a positive fluid balance. Renal function stable Trickling of tube f eeds initiated. T-max 99.5, normal WBC. Hemoglobin 9.6, platelets 152. 6/ continues on Zosyn and Diflucan . Renal function stable. Complains of right-sided flank pain. Nephrostomy tube on hold as per urology.maintaining O2 sats in the 90s on 1 L nasal cannula . Chest x-ray reporting low lung volumes, possible basilar atelectasis Sinemet resumed on Wednesday, arousable, follows simple commands. Receiving TPN via PICC line and also on tube feeds at goal, tolerating well with minimal to no residuals. Hemoglobin 7.3. Potassium 3.0. 05/06/2021 hemoglobin 6.7, lab reporting more antibioties, sent out to the [facility], transfusion pending. Telemetry sinus rhythm with occasional PVCs. Potassium 3.1,potassium replacement in progress. TPN discontinued. Tube feeds converted over to a vital AF, at goal of 45 MLS/hr. Ostomy output very similar to tube feeding, watery. High NG and ostomy output. Shakes head yes to pain on the right lower abdominal/flank side. 05/07/2021 continue to have significant output from both ostomy and NG tube throughout the night. Today NG drainage slowing down. Ostomy drainage thickening up but continues to resemble tube feed. Tube feed at goal with minimal to no residuals. Urine output decreased. Urology notified, renal ultrasound ordered/pending. IV fluids increased. Sleepy, dozes off during conversation. Telemetry sinus rhythm. Receive 1 unit of packed RBCs with current Hemoglobin 7.1. Potassium 3.2, supplemented. Continues to complain of right-sided flank pain. Objective - Vital Signs Vital signs: Vital Signs Temp 97.8 F 05/07/21 12:00 Pulse 84 05/07/21 13:00 Resp 22 05/07/21 13:00 BP 112/54 05/07/21 13:00 Pulse Ox 98 05/07/21 13:00 Intake & Output 05/06/21 05/07/21 05/07/21 18:59 06:59 18:59 Intake Total 1450 1213 1090 Output Total 2940 1640 155 Balance -1490 -427 935 Weight 102 kg Intake: IV 490 260 660 0.9 240 260 60 0.9% NaCl with KCl 40 Meq 300 /l 1,000 ml @ 100 mls/hr IV .Q10H [facility] Rx#: [id number] Fluconazole in NaCl,Iso- 50 Osm 100 mg In Saline 1 50ml.bag @ 50 mls/hr IVPB DAILY [facility] Rx#:[id number] Magnesium Sulfate-D5w Pmx 100 1 gm In Dextrose/Water 1 100ml.bag @ 100 mls/hr IVPB Q1H [facility] Rx#: [id number] Piperacillin-Tazobactam 3 200 100 .375 gm In Sodium Chloride 0.9% 100 ml @ 25 mls/hr IVPB Q8HR [facility] Rx# :[id number] Potassium Chloride 20 meq 100 In Water For Injection 1 100ml.bag @ 50 mls/hr IVPB Q2H [facility] Rx#: [id number] Intake, IV Titration 300 Amount Potassium Chloride 20 meq 300 In Water For Injection 1 100ml.bag @ 50 mls/hr IVPB Q2H [facility] Rx#: [id number] Tube Feeding 540 585 270 Blood Product 278 Rc Pheresis 2 As3 Unit 278 [id number] Other 120 90 160 Output: Gastric Drainage 1800 600 Urine 340 390 155 Stool 800 650 Other: Voiding Method Indwelling Catheter Indwelling Catheter - Exam - Exam General: sitting up in bed, lethargic, sleepy, arouses to name easily, dozes off during conversation, no acute distress. HEENT: PERRL. EOMI. conjunctivae normal. NG tube present with bilious drainage Neck: Supple, no JVD. Cardiac: Heart regular in rate and rhythm. No S3. No S4. No clicks, rubs. No murmur. Lungs: Clear breath sounds, no rhonchi, crackles, or wheezes,bilateral bases diminished. Abdomen: soft,distended, tender right lower quadrant, right flank ,status post surgery,positive bowel sounds. jejunal tube with thickened yellow drainage. Midline Abdominal dressing clean dry and intact. Extremities: Significant Positive edema of all extremities, normal pulses. Skin: Warm and dry, Neurologic: Limited exam, follows simple commands, weak. - Labs CBC & Chem 7: 05/07/21 03:30 05/07/21 03:30 Labs: Abnormal Lab Results - Last 24 Hours (Table) 05/06/21 05/06/21 05/07/21 Range/Units 07:50 17:41 03:30 RBC (3.80-5.40) m/uL Hgb (11.4-16.0) gm/dL Hct (34.0-46.0) % RDW (11.5-15.5) % Plt Count (150-450) k/uL Metamyelocytes # (Man) (0) k/uL Potassium 3.2 L (3.5-5.1) mmol/L Chloride 108 H (98-107) mmol/L BUN 20 H (7-17) mg/dL POC Glucose (mg/dL) 106 H (75-99) mg/dL Calcium 7.2 L (8.4-10.2) mg/dL Total Protein 4.0 L (6.3-8.2) g/dL Albumin 1.7 L (3.5-5.0) g/dL Crossmatch See Detail 05/07/21 Range/Units 03:30 RBC 2.47 L (3.80-5.40) m/uL Hgb 7.1 L (11.4-16.0) gm/dL Hct 21.6 L (34.0-46.0) % RDW 19.1 H (11.5-15.5) % Plt Count 131 L (150-450) k/uL Metamyelocytes # (Man) 0.05 H (0) k/uL Potassium (3.5-5.1) mmol/L Chloride (98-107) mmol/L BUN (7-17) mg/dL POC Glucose (mg/dL) (75-99) mg/dL Calcium (8.4-10.2) mg/dL Total Protein (6.3-8.2) g/dL Albumin (3.5-5.0) g/dL Crossmatch Assessment and Plan Assessment: Displaced PEG tube with extravasation of contrast and free air, sigmoid volvulus, fecal impaction, status post exploratory laparotomy, sigmoid colectomy, creation of end colostomy and repair of gastrostomy, jejunal feeding tube placement. Acute hypoxic respiratory failure, status/ post mechanical ventilator-dependent Hypovolemic hypotension Acute renal failure, ATN ,secondary to the above and hydronephrosis Sepsis,multifactorial, including multiple comorbidities ,complicated acute UTI ,severe right-sided hydronephrosis with right stent removal this admission,and #1, not present on admission. Acute toxic, metabolic encephalopathy,brain CT reported no acute infarcts, chronic stable changes, in a patient with history of CVA, possibly secondary to lack of Sinemet, levels ordered, suspect severe parkinsonism,Neurology following. Acute UTI, enterococcus faecium, in a patient with history of recurrent UTIs, recent acute UTI with Enterobacter aerogenes, complicated with bilateral hydronephrosis Bilateral hydronephrosis,no change in the right-sided hydronephrosis. Right ureteral stent insertion 01/06/21, obstruction of UPJ-status post cystoscopy with right stent removed, unable to replace. Nephrostomy pending. 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 Hypothyroidism Bipolar disorder Obesity, BMI 36 Normocytic anemia Status post PICC line with initiation of TPN No code, no CPR, no intubation Plan: Continue on current medication regime ,monitoring and symptomatic treatmen t. Renal ultrasound pending. Prognosis and CODE STATUS discussed with spouse Patricio and another family member at bedside. CODE STATUS has been changed to no code, no CPR, no intubation as per spouse. Potassium replacement as per ICU replacement protocol. Strict aspiration precautions.IV antibiotics as per ID. ICU management as per business specialist.Prognosis guarded given multiple complex medical issues. The impression and plan of care has been dictated as directed. : I performed a history and examination of this patient, discussed the same with the dictator. I agree with the dictator's note ,documented as a scribe. Any additional findings or plans will be noted.
[2021-05-07 17:48] LABS: Glucose,Whole Blood 99 mg/dL (75-99)
--- NOTE | 2021-05-07 19:15 | XR ---
EXAMINATION TYPE: XR abdomen acute w cxr DATE OF EXAM: 05/07/2021 COMPARISON: 04/29/2021 HISTORY: Abdominal distention. TECHNIQUE: 5 views FINDINGS: Lung apices are not included on the exam. There is nasogastric tube looped in the stomach. There is evidence of some airspace infiltrate in the left lower lobe. There are skin gricelda over the mid abdomen. There is some drainage tubing over the lower abdomen. Th ere is distended small bowel with subcutaneous fluid levels. IMPRESSION: There is some pneumonia and atelectasis left lower lobe which is probably increased keke red to old exam. There is improvement in the small bowel distention compared to old exam. There is ev idence for small bowel ileus. Partial mechanical obstruction not excluded.
--- NOTE | 2021-05-07 20:29 | P.PN ---
Subjective Progress Note Date: 05/07/21 I was called today because of decreasing urine output and possibly that hydronephrosis was the cause. I reviewed the I&O and she has had voluminous output from her REGGIE and ostomy. ON us she has a chronic rt hydro due to a upj .obstruction. The decrease urine output is due to the fluid loss not the hydro nephrosis. this is being replaced Objective - Vital Signs Vital signs: Vital Signs Temp 98.9 F 05/07/21 20:00 Pulse 79 05/07/21 20:00 Resp 16 05/07/21 20:00 BP 110/51 05/07/21 20:00 Pulse Ox 98 05/07/21 20:00 Intake & Output 05/07/21 05/07/21 05/08/21 06:59 18:59 06:59 Intake Total 1213 1885 100 Output Total 1640 290 50 Balance -427 1595 50 Weight 102 kg Intake: IV 260 1260 100 0.9 260 60 0.9% NaCl with KCl 40 Meq 800 100 /l 1,000 ml @ 100 mls/hr IV .Q10H [facility] Rx#: [id number] Magnesium Sulfate-D5w Pmx 100 1 gm In Dextrose/Water 1 100ml.bag @ 100 mls/hr IVPB Q1H [facility] Rx#: [id number] Piperacillin-Tazobactam 3 200 .375 gm In Sodium Chloride 0.9% 100 ml @ 25 mls/hr IVPB Q8HR [facility] Rx# :[id number] Potassium Chloride 20 meq 100 In Water For Injection 1 100ml.bag @ 50 mls/hr IVPB Q2H [facility] Rx#: [id number] Tube Feeding 585 405 0 Blood Product 278 Rc Pheresis 2 As3 Unit 278 [id number] Other 90 220 Output: Gastric Drainage 600 Urine 390 290 50 Stool 650 Other: Voiding Method Indwelling Catheter Indwelling Catheter Indwelling Catheter # Bowel Movements 1 - Labs CBC & Chem 7: 05/07/21 03:30 05/07/21 03:30 Labs: Abnormal Lab Results - Last 24 Hours (Table) 05/06/21 05/07/21 05/07/21 Range/Units 07:50 03:30 03:30 RBC 2.47 L (3.80-5.40) m/uL Hgb 7.1 L (11.4-16.0) gm/dL Hct 21.6 L (34.0-46.0) % RDW 19.1 H (11.5-15.5) % Plt Count 131 L (150-450) k/uL Metamyelocytes # (Man) 0.05 H (0) k/uL Potassium 3.2 L (3.5-5.1) mmol/L Chloride 108 H (98-107) mmol/L BUN 20 H (7-17) mg/dL Calcium 7.2 L (8.4-10.2) mg/dL Total Protein 4.0 L (6.3-8.2) g/dL Albumin 1.7 L (3.5-5.0) g/dL Crossmatch See Detail
[2021-05-07 23:29] LABS: Glucose,Whole Blood 85 mg/dL (75-99)
[2021-05-08 04:08] LABS: Anisocytosis Slight; Basophils % (A) 1 %; Eosinophils # (A) 0.1 k/uL (0-0.7); Eosinophils % (A) 2 %; HCT 23.2 % (34.0-46.0); HGB 7.4 gm/dL (11.4-16.0); Hypochromasia Moderate; Lymphocytes # (A) 0.9 k/uL (1.0-4.8); Lymphocytes % (A) 14 %; MCH 28.4 pg (25.0-35.0); MCHC 31.9 g/dL (31.0-37.0); MCV 88.9 fL (80.0-100.0); Monocytes # (A) 0.3 k/uL (0-1.0); Monocytes % (A) 5 %; Neutrophils # (A) 4.7 k/uL (1.3-7.7); Neutrophils % (A) 77 %; Platelet Count 151 k/uL (150-450); Poikilocytosis Slight; RBC 2.61 m/uL (3.80-5.40); RDW 19.3 % (11.5-15.5); WBC 6.1 k/uL (3.8-10.6)
[2021-05-08 04:18] LABS: ALT <6 U/L (4-34); AST 17 U/L (14-36); African American GFR (CKD) 65 (>60 ml/min/1.73 sqM); Albumin 1.8 g/dL (3.5-5.0); Alkaline Phosphatase 165 U/L (38-126); Anion Gap 2 mmol/L; Blood Urea Nitrogen 18 mg/dL (7-17); Calcium 7.7 mg/dL (8.4-10.2); Carbon Dioxide 28 mmol/L (22-30); Chloride 111 mmol/L (98-107); Glucose 75 mg/dL (74-99); Magnesium 2.1 mg/dL (1.6-2.3); Non-African American GFR(CKD) 56 (>60 ml/min/1.73 sqM); Potassium 4.5 mmol/L (3.5-5.1); Sodium 141 mmol/L (137-145); Total Bilirubin 0.3 mg/dL (0.2-1.3); Total Protein 4.1 g/dL (6.3-8.2)
[2021-05-08] MEDS: INSULIN ASPART (NovoLOG) 100 UNIT/ML VIAL SQ SCH ×3 (05:05→17:40)
--- NOTE | 2021-05-08 05:07 | PN ---
PROGRESS NOTE DATE OF SERVICE: 05/07/2021. REASON FOR FOLLOWUP: Ischemic colitis and stomach perforation. INTERVAL HISTORY: Patient is currently afebrile. The patient is hemodynamically stable, not on pressor support. FiO2 is currently on 1 L nasal cannula. The patient still has significant high output from the NG and did have output in her colostomy. The patient remains to be lethargic and unable to provide any history. PHYSICAL EXAMINATION: Blood pressure 110/49, pulse of 77, temperature 98.9. She is 97% on 1 L nasal cannula. General description is an elderly female lying in bed in no distress. Respiratory system: Unlabored breathing, decreased breath sounds in the bases. No wheeze. Heart S1, S2. Regular rate and rhythm. Abdomen: Soft, no tenderness. LABS: Hemoglobin 7.1, white count of 5.4. BUN of 20, creatinine 0.96. DIAGNOSTIC IMPRESSION AND PLAN: Patient with perforation of the stomach from the PEG tube and did have a sigmoid volvulus with status post sigmoid colectomy and repair of the gastric perforation. Patient is covered on Zosyn and Diflucan. White count is normal. Continue with supportive care. MMODL / IJN: [id number] /
[2021-05-08] MEDS: 0.9% NACL WITH KCL 40 MEQ/L 1,000 ML IV SCH ×2 (06:29→08:17)
[2021-05-08] MEDS: FLUCONAZOLE 100 MG TAB PO SCH (08:16)
[2021-05-08] MEDS: HEPARIN SODIUM,PORCINE/PF 5,000 UNIT/0.5 ML SYRINGE SQ SCH ×2 (08:16→16:51)
[2021-05-08] MEDS: CARBIDOPA-LEVODOPA 25-100 MG 1 EACH TAB PO SCH ×4 (08:16→20:55)
[2021-05-08] MEDS: LEVOTHYROXINE IVP 100 MCG/5 ML VIAL IV SCH (08:17)
[2021-05-08] MEDS: NYSTATIN 100,000 UNIT/GM POWD 15 GM TOPICAL SCH (08:17)
[2021-05-08] MEDS: PIPERACILLIN-TAZOBACTAM 3.375 GM in SODIUM CHLORIDE 0.9% 100 ML IVPB SCH ×2 (08:17→16:51)
[2021-05-08] MEDS: PANTOPRAZOLE 40 MG/10 ML VIAL IV SCH (08:17)
--- NOTE | 2021-05-08 09:20 | XR ---
EXAMINATION TYPE: XR chest 1V portable DATE OF EXAM: 05/08/2021 COMPARISON: Chest x-ray dated 05/07/2021 HISTORY: Abnormal chest x-ray, assess lungs TECHNIQUE: Single frontal view of the chest is obtained. FINDINGS: Patchy basilar density is suspected similar to prior exam, question some new patchy densit y in the right upper lobe. NG tube is stable, there is a stable left-sided PICC line present with the distal tip over the superior vena cava. Biapical pleural thickening is again noted. Heart size may b e accentuated by rotation, borderline increased. Aorta is dense. There is thoracic spondylosis. There are overlying artifacts. IMPRESSION: Basilar atelectasis or scar, correlate to exclude pneumonia, effusion
[2021-05-08 11:38] LABS: Glucose,Whole Blood 76 mg/dL (75-99)
--- NOTE | 2021-05-08 12:14 | P.PN ---
Subjective Progress Note Date: 05/08/21 resting comfortably in bed,abdominal distention improved per nursing. Minimal output from NGT. Bile now in ostomy output Objective - Vital Signs Vital signs: Vital Signs Temp 98.7 F 05/08/21 08:00 Pulse 73 05/08/21 11:00 Resp 14 05/08/21 11:00 BP 112/56 05/08/21 11:00 Pulse Ox 96 05/08/21 11:00 Intake & Output 05/07/21 05/08/21 05/08/21 18:59 06:59 18:59 Intake Total 1885 1300 650 Output Total 290 955 230 Balance 1595 345 420 Weight 102 kg Intake: IV 1260 1200 600 0.9 60 0.9% NaCl with KCl 40 Meq 800 1200 500 /l 1,000 ml @ 100 mls/hr IV .Q10H [facility] Rx#: [id number] Magnesium Sulfate-D5w Pmx 100 1 gm In Dextrose/Water 1 100ml.bag @ 100 mls/hr IVPB Q1H [facility] Rx#: [id number] Piperacillin-Tazobactam 3 200 100 .375 gm In Sodium Chloride 0.9% 100 ml @ 25 mls/hr IVPB Q8HR [facility] Rx# :[id number] Potassium Chloride 20 meq 100 In Water For Injection 1 100ml.bag @ 50 mls/hr IVPB Q2H [facility] Rx#: [id number] Intake, IV Titration 100 Amount Piperacillin-Tazobactam 3 100 .375 gm In Sodium Chloride 0.9% 100 ml @ 25 mls/hr IVPB Q8HR [facility] Rx# :[id number] Tube Feeding 405 0 0 Other 220 50 Output: Gastric Drainage 100 Urine 290 530 230 Stool 325 Other: Voiding Method Indwelling Catheter Indwelling Catheter # Bowel Movements 1 - Constitutional General appearance: Present: cooperative - Cardiovascular Rhythm: regular - Gastrointestinal Gastrointestinal Comment(s): nondistended, ostomy pink and patent, bile in bag - Labs CBC & Chem 7: 05/08/21 03:50 05/08/21 03:50 Labs: Abnormal Lab Results - Last 24 Hours (Table) 05/08/21 05/08/21 Range/Units 03:50 03:50 RBC 2.61 L (3.80-5.40) m/uL Hgb 7.4 L (11.4-16.0) gm/dL Hct 23.2 L (34.0-46.0) % RDW 19.3 H (11.5-15.5) % Lymphocytes # 0.9 L (1.0-4.8) k/uL Chloride 111 H (98-107) mmol/L BUN 18 H (7-17) mg/dL Calcium 7.7 L (8.4-10.2) mg/dL Alkaline Phosphatase 165 H (38-126) U/L Total Protein 4.1 L (6.3-8.2) g/dL Albumin 1.8 L (3.5-5.0) g/dL Assessment and Plan Assessment: S/P Ex Lap resection of sigmoid colon with end colostomy, repair of gastrotomy from dislodged peg tube, and placement of feeding J tube Plan: Patient was distended with increasing NGT output and tube feeds with no bile in ostomy yesterday afternoon, I suspected that the balloon for the Jtube was obstructing the proximal jejunum causing bile to be backed up to NGT and no bile to get through to digest the tube feeds. A total of 5cc has been released from j-tube balloon and patients distention improved, NGT output is now minimal and bile is seen through the ostomy. Hold tube feeds for now and continue NGT to LIS.
--- NOTE | 2021-05-08 13:26 | P.PN ---
Subjective Progress Note Date: 05/08/21 Principal diagnosis: Dislodged PEG tube, intra-abdominal sepsis, urinary tract infection with sepsis This is a 75-year-old white female patient a resident of a local [facility], who was initially admitted to the hospital on 04/15/2021 when she was brought to the hospital per EMS with altered mentation, and vomiting. Patient was receiving Rocephin for a urinary tract infection at the nursing facility and patient is known to have a history of multiple recurrent urinary tract infections and history of right ureteral stent placement. Patient at baseline is a poor historian, related to previous history of CVA and patient has left-sided weakness and expressive aphasia. Other medical history significant for hyperlipidemia, hypertension, hypothyroidism, Parkinson's disease, anxiety, depression, degenerative arthritis. Most recent urine culture from February and March 2021 showed evidence of enterococcus with multiple resistances and she was placed on vancomycin in the emergency department. CT of the abdomen and pelvis on admission showed marked right hydronephrosis, and a small left hydronephrosis similar findings on the CT of the abdomen and pelvis from 03/18/2021. Urology is following and was planning on insertion of a nephrostomy. Neurological workup showed a brain CT with chronic appearing periventricular white matter of ischemic type, which was stable. EEG showed an abnormal EEG due to the background slowing of mild to moderate degree suggestive of generalized cerebral dysfunction as seen with toxic metabolic encephalopathy and diffuse structural brain abnormality. No evidence of epileptiform activity was seen. Neurology's impression was that the altered mental status was likely due to toxic metabolic encephalopathy. Patient continued to be nauseous and vomiting and was unable to take any oral medications or oral feedings. On 04/19/2021 patient underwent EGD and PEG tube placement by Dr. Dempsey. The EGD showed no abnormalities within the stomach and duodenum. However the patient continued to have intermittent nausea and vomiting, and tube feedings were on hold and the PEG tube was connected to dependent drainage. On 04/24/2021 patient underwent cystoscopy, right retrograde pyelogram and right ureteroscopy, right ureteral stent was removed, however attempts to replace it were unsuccessful, and nephrostomy tube insertion was planned. On 04/29/2021 patient developed worsening tenderness and distention of the abdomen, she continued to have nausea with vomiting, and her leukocytosis was worsening. CT of the abdomen and pelvis on 04/29/2021 showed extravasation of the contrast from the PEG tube, with a concern of dislodged PEG tube from the stomach with a small amount of air in the peritoneum. Also there was a large stool ball and markedly distended possibly volvulized sigmoid colon. Right nephrostomy procedure was placed on hold, and patient was taken to the operating room and underwent exploratory laparotomy which was converted to open procedure, sigmoid colectomy, and creation of end colostomy and repair of gastrostomy along with placement of jejunal feeding tube. Patient was admitted to the intensive care unit following her procedure earlier this morning at around 3:00 this morning intubated and on mechanical ventilator support. This morning she is on assist-control mode of ventilation with a rate of 14, tidal vital 300, FiO2 of 60% and PEEP of 5, this morning's blood gas showed a pO2 of 219, pCO2 42, pH of 7.47, this was done on 100% FiO2 and this was subsequently dropped to 60%. She is on lactated Ringer's at 50 ML per hour, Diprivan and is at 30 ML per hour, hemodynamically she is stable, not requiring any vasopressor support, she is in sinus mechanism, blood pressure is 100/55. Her chest x-ray today has been reviewed and not showing ET tube and OG tube in appropriate posi tions, no pneumothorax, the basilar atelectasis, low lung volumes. Breasts the blood work reveals white count of 8.2, hemoglobin is 10.8, platelet count is 216, INR is 1.2, sodium is 137, potassium is 3.4, chloride is 101, CO2 is 30, BUN is 24, creatinine is 1.14. Patient's urine output has been quite poor, and she has only produced 35 mL of urine overnight. Current antibiotic coverage includes Diflucan and Zosyn for evidence of enterococcus faecium in the urine, and Fani albicans in the urine culture on urine culture from 04/20/2021. ID service is following. On 05/01/2021 patient seen in follow-up in the intensive care unit. She remains sedated, and intubated on mechanical ventilator, she is currently on assist control mode of ventilation with a rate of 14, tidal volume 300, FiO2 of 40% and PEEP of 5. This morning his blood gases show pO2 of 93, pCO2 43, and pH of 7.48 and this was done on FiO2 of 50% and it has since been dropped to 40%. She is currently on Diprivan at 40 mics per kilo per minute, lactated Ringer's at 100 ML per hour, 0.9 was seen at 20 ML per hour. Levofed is at 2 mics per minute. Patient was started on TPN yesterday which is infusing at 30 ML per hour, patient's urine output has improved in the last 24 hours and responds to IV fluids and one dose of Lasix was given yesterday in the afternoon. However she received significant amount of IV fluid boluses, and she is in positive net fluid balance of 4.3 L or last 24 hours. Patient has significant generalized edema. This morning's chest x-ray is pending, this morning's labs have been reviewed showing white blood cell count of 7.1, hemoglobin of 8.4, platelet count is 179, sodium is 136, the rest of the electrolytes are unremarkable, BUN is 28 creatinine is 1.14. She is currently in sinus mechanism with a rate of 89 BPM, no arrhythmias overnight, lung sounds are clear, abdomen is soft, did not incision is clean dry and intact, left upper quadrant colostomy and placed on a to produce small amount of liquid yellowish colored stool, right upper quadrant J-tube in place, and patient has not been initiated on not tube feedings yet. Overall hemodynamically she is stable, minimal amount of pressors, urine output is improving, renal profile is stable, FiO2 requirement is 40%, urology is following, and patient is being considered for nephrostomy tube however this has not been scheduled yet. We'll proceed with spontaneous awakening trial and a spontaneous breathing trial this morning On 05/02/2021 patient seen in follow-up in intensive care unit, she was successfully weaned and next visit for mechanical ventilator yesterday on 05/01/2021. This morning she is resting in bed, she is lethargic, she does not open eyes to command, does not follow any commands, she is currently just on 2 L of oxygen with a pulse ox of 96%, does not appear to be in any respiratory distress, does withdraw from pain. She is currently on 0.9 normal saline at a rate of 50 ML per hour, TPN is at 30 ML per hour, still has a leave of fed infusing at 2 mics per minute. Patient appears to be quite generally fluid overloaded, with extensive edema involving her upper and lower extremities. Lung sounds are positive for minimal wheezes, no rhonchi. Today's chest x-ray reveals central venous congestion, and possibility of left pleural effusion. We'll cut back IV fluids to KVO. Remains on antibiotics in the form of Zosyn and Diflucan. She's been afebrile. Abdomen is soft, and her colostomy is putting out yellow semi-liquid stool. G-tube is in place, however tube feedings have not been started yet, patient has been on TPN. Apparently patient has also passed a bowel movement per rectum. There are positive bowel sounds. Labs have been reviewed showing white blood cell count of 9.2, hemoglobin of 9.6, platelet count is 152, lites are within normal limits, B1 of 25 creatinine was 1.13, these were within normal limits. Urine output been in the order of 50-60 ML per hour. And patient has produced 2.1 L in urine output over last 24 hours, and she is visiting positive net fluid balance of 400 mL over last 24 hours. On 05/08/2021 patient seen in follow-up in intensive care unit, she is lethargic, but arousable to voice, at times she moans, but unable to localize her pain, her verbal responses are difficult to understand. She appears to be in no acute respiratory distress, she is on 1 L of oxygen pulse ox is 96%, IV fluids 0.9 normal saline with 40 of potassium at 100 ML per hour, her tube feeds were placed on hold yesterday because of significant output from both ostomy and NG tubes. Acute abdominal series were completed showing distended small bowel with subcutaneous fluid levels, possible small bowel ileus partial mechanical obstruction not excluded. Gen. surgery is following, and recommended holding the tube feedings were 24 hours. NG tube remains to suction, and output in the last 24 hours has significantly decreased and is down to 100 ML, colostomy outpu t was down to 325 and is more by Jaime in color. Patient is making adequate urine, and has produced 820 ML of urine in the last 24 hours, she remains on Diflucan and Zosyn for antibiotic coverage. Urine culture showed enterococcus, blood cultures have been negative. Today's labs have been reviewed, white blood cell count is 6.1, hemoglobin is 7.4, electrolytes and renal profile are unremarkable, BUN is 18 creatinine 0.9. Patient has been afebrile, blood pressure is been stable, not requiring any vasopressor support. Generally she is swollen, however we have been holding off on diuretics related to her poor nutritional status and to low albumin. Nephrology has been following in regards to right-sided hydronephrosis, and there is plans for any surgical intervention on neurology's part at this time. Objective - Vital Signs Vital signs: Vital Signs Temp 98.7 F 05/08/21 08:00 Pulse 73 05/08/21 11:00 Resp 14 05/08/21 11:00 BP 112/56 05/08/21 11:00 Pulse Ox 96 05/08/21 11:00 Intake & Output 05/07/21 05/08/21 05/08/21 18:59 06:59 18:59 Intake Total 1885 1300 650 Output Total 290 955 230 Balance 1595 345 420 Weight 102 kg Intake: IV 1260 1200 600 0.9 60 0.9% NaCl with KCl 40 Meq 800 1200 500 /l 1,000 ml @ 100 mls/hr IV .Q10H [facility] Rx#: [id number] Magnesium Sulfate-D5w Pmx 100 1 gm In Dextrose/Water 1 100ml.bag @ 100 mls/hr IVPB Q1H [facility] Rx#: [id number] Piperacillin-Tazobactam 3 200 100 .375 gm In Sodium Chloride 0.9% 100 ml @ 25 mls/hr IVPB Q8HR [facility] Rx# :[id number] Potassium Chloride 20 meq 100 In Water For Injection 1 100ml.bag @ 50 mls/hr IVPB Q2H [facility]DOMERO Rx#: [id number] Intake, IV Titration 100 Amount Piperacillin-Tazobactam 3 100 .375 gm In Sodium Chloride 0.9% 100 ml @ 25 mls/hr IVPB Q8HR [facility]DOM[facility] Rx# :[id number] Tube Feeding 405 0 0 Other 220 50 Output: Gastric Drainage 100 Urine 290 530 230 Stool 325 Other: Voiding Method Indwelling Catheter Indwelling Catheter # Bowel Movements 1 - Exam GENERAL EXAM: Lethargic, 75-year-old white female, on 2 L of oxygen with pulse ox of 97%, breathing spontaneously, comfortably, opens eyes to voice, we will responses are difficult to understand HEAD: Normocephalic/atraumatic. EYES: Normal reaction of pupils, equal size. Conjunctiva pink, sclera white. NOSE: Clear with pink turbinates. THROAT: No erythema or exudates. NECK: No masses, no JVD, no thyroid enlargement, no adenopathy. CHEST: No chest wall deformity. Symmetrical expansion. LUNGS: Equal air entry with no crackles, wheeze, rhonchi or dullness. CVS: Regular rate and rhythm, normal S1 and S2, no gallops, no murmurs, no rubs ABDOMEN: Soft, nontender. No hepatosplenomegaly, normal bowel sounds, no guarding or rigidity. Mid abdominal incision clean dry and intact, covered with surgical dressing, epigastric jejunostomy tube in place, insertion site clean dry intact, left upper quadrant colostomy, with a small amount of liquid yellow stool EXTREMITIES: No clubbing, 2+ edema involving bilateral lower extremities, no cyanosis, 2+ pulses and upper and lower extremities. MUSCULOSKELETAL: Muscle strength and tone normal. SPINE: No scoliosis or deformity SKIN: No rashes CENTRAL NERVOUS SYSTEM: Lethargic. No focal deficits, tone is normal in all 4 extremities. - Labs CBC & Chem 7: 05/08/21 03:50 05/08/21 03:50 Labs: Abnormal Lab Results - Last 24 Hours (Table) 05/08/21 05/08/21 Range/Units 03:50 03:50 RBC 2.61 L (3.80-5.40) m/uL Hgb 7.4 L (11.4-16.0) gm/dL Hct 23.2 L (34.0-46.0) % RDW 19.3 H (11.5-15.5) % Lymphocytes # 0.9 L (1.0-4.8) k/uL Chloride 111 H (98-107) mmol/L BUN 18 H (7-17) mg/dL Calcium 7.7 L (8.4-10.2) mg/dL Alkaline Phosphatase 165 H (38-126) U/L Total Protein 4.1 L (6.3-8.2) g/dL Albumin 1.8 L (3.5-5.0) g/dL Assessment and Plan Plan: Assessment: #1. Displaced PEG tube with gastrostomy, with small pneumoperitoneum, sigmoid volvulus and fecal impaction, status post exploratory laparotomy, sigmoid colectomy, creation of end colostomy and repair of the gastrotomy along with placement of a jejunal feeding tube, postoperative day #8 #2. Hypotension, related to hypovolemia, and sepsis, related to intra-abdominal sepsis related to gastric perforation and urinary tract infection, resolved, and patient is not requiring any vasopressor support #3. Severe right hydronephrosis, and to a lesser degree left hydronephrosis, urology is following, creatinine is stable, urine output has improved, and nephrostomy placement is on hold right now #4. History of right hydronephrosis with placement of right ureteral stent placement in December 2020 and subsequent removal on April 24 2021, with unsuccessful attempt to place another ureteral stent, patient's acute kidney injury was multifactorial, and with medical treatment of urine output and renal function had improved, no plans for nephrostomy tube placement at this time #5. Acute kidney injury related to the hydronephrosis, and ATN, improved #6. Acute urinary tract infection related to Enterococcus faecalis and Fani albicans #7. History Of multiple recurrent urinary tract infections, with urine cultures positive for enterococcus species #8. Altered mental status related to acute toxic and metabolic encephalopathy #9. 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 History of Parkinson's disease on Sinemet #11. Severe nausea and vomiting, poor oral intake, status post PEG tube placement on 04/19/2021, with subsequent removal related to dislodgment and J- tube placement on 04/29/2021 #12. History of constipation with fecal impaction #13. Chronic kidney disease stage II #14. Chronic congestive heart failure with diastolic dysfunction #15. Hypertension #16. Hyperlipidemia #17. Hypothyroidism #18. Anxiety and depression Plan: Maintain aspiration precautions Surgeries recommendations in regards to reinitiation of the tube feedings Continue antibiotics Hemodynamically stable, patient is afebrile CODE STATUS has been changed to DO NOT RESUSCITATE We'll continue supportive itching the patient for next few days Overall prognosis is quite guarded and poor If there is no further clinical improvement in the next few days recommend palliative care hospice I performed a history & physical examination of the patient and discussed their management with my nurse practitioner, Asha Novoa. I reviewed the nurse practitioner's note and agree with the documented findings and plan of care. Lung sounds are positive for diminished breath sounds throughout the lung rose. The findings and the impression was discussed with the patient. I attest to the documentation by the nurse practitioner. Time with Patient: Less than 30
--- NOTE | 2021-05-08 16:26 | P.PN ---
Subjective Progress Note Date: 05/08/21 This is a 75-year-old female with past medical history of UTI Strep agalactiae - (group b) with Pyelonephritis, severe right hydronephrosis with right ureteral stent insertion to 12/26/20,CVA with residual left-sided weakness, expressive aphasia/TIA, hyperlipidemia, hypertension, chronic renal failure, hypo thyroidism, obesity, anxiety, bipolar, depression, former nicotine dependence presented to the ER via EMS for [facility] with reports that patient had mental status changes, combative over the last few days with an episode of vomiting. Patient's baseline is chronic residual left-sided weakness from prior CVA with expressive aphasia. Patient currently nonverbal, rigid, posturing, attempting to communicate with blinking of right eye. Febrile, T-max 100.3, WBC 13.1 yesterday down to 7.9. Maintained on vancomycin. Hemoglobin 8, platelets 217, glucose 104, potassium 2.8, magnesium 1.4 both being supplemented. Sodium 140, BUN 9, creatinine 0.73. Lactic acid 0.8. UA reporting urine WBCs 21, large leukocytes 1+ ketones. EKG reported normal sinus rhythm, left ventricular hypertrophy, chest x-ray reporting bibasilar atelectasis/subsegmental consolidation. Baca virus not detected. 04/18/[address] reported chronic appearing periventricular white matter ischemic type changes, stable .evaluated by neurology who attributes clinical presentation to suspected severe Parkinsonian from not having Sinemet for a few days. PEG tube placement pending .maintained on IV fluid hydration. Remains encephalopathic,more alert today, minimally conversing, not following commands. EEG/EMG completed, results pending T-max 99.9, normal WBC. Urine culture reporting enterococcus faecium.preliminary blood cultures reporting no growth at 48 hours Continues on vancomycin, creatinine 0.68. Hemoglobin 8.5, platelets 171. Potassium 3.2, magnesium 2.2. 04/21/2021 maintain IV fluid hydration. Lethargic, nausea and vomiting reported after meds administered via PEG-therefore has not received Sinemet yet today. Urology reconsult regarding cystoscopy for hydronephrosis. Impacted, fleets jermaine mas/disimpaction ordered. PICC line ordered for TPN, as patient has been without nutrition for several days prior to admission and has not been able to be started on PEG tube feedings. Afebrile. 04/22/2021 more alert, received Sinemet yesterday and this morning, no nausea vomiting. We'll reattempt tube feeds via PEG tube -if unable to tolerate then we'll proceed with PICC line and TPN. Received one fleets enema with small stool and reported. Potassium 2.8, receiving supplementation, magnesium 1.8. Urine remains cloudy. Evaluated by urology and scheduled for surgery/potential cystoscopy/right ureteral stent removal/8 ureteroscopy/possible replacement of stent on 04/24/2021. 04/23/2021 large bowel movement last night. Reports diffuse abdominal pain. Tolerating tube feeds at 40 MLS per hour/Goal of 55 with minimal to no residuals, no nausea or vomiting. Continues on vancomycin. Scheduled for cystoscopy tomorrow with right ureteral stent exchange. Afebrile. 04/24/2021 Recently returned from cystoscopy, verbal report of stent exchange- multiple attempts. Currently sedated, opens eyes and falls back asleep. 04/25/2021 postop day #1 from cystoscopy. Procedure note reports right ureteral stent removed, multiple attempts made to identify the triple-lumen unable to identify, contrast injected but did not pass into the renal pelvis, multiple attempts made to advance Glidewire-unsuccessful, and procedure was terminated. Bueno catheter with yellow urine with sediment. Patient sleepy but continues to complain of pain, attempting to use communication board. Afebrile, BMP pending. 04/26/2021: Patient is postop day 2 cystoscopy with removal of ureteral stent. There were unable to put another stent in. A urostomy tube is recommended if she continues to have problems per urology. She remains afebrile, blood pressure heart rate and restaurant rate remained stable. Infectious disease, urology and neurology are following. Their notes were reviewed today. Electrolytes are stable. Sugar slightly elevated before breakfast and 156. She large bowel movement last night. She is noted to have elevated TSH at 6.27. She remains on Synthroid of 150 g daily. She remains on vancomycin for her complicated UTI. Diflucan and added. Chillier self this morning is somnolent, but arousable. She can she's tired. She denies any other complaints when specifically asked. She continues to have significant upper extremity edema, most likely from the IV fluids she was on. Her tube feedings are currently at goal at 55 mL per hour. 04/27/2021: Patient status postop day #3 cystoscopy and ureteral stent removal. New stent could not be placed. Urology is following. They're considering a right-sided nephrostomy tube if her right lower quadrant pain is not resolved. Today she complains of right lower quadrant pain. She currently denies any nausea vomiting, chest pains, pressures, shortness of breath. She is nothing by mouth still. She remains afebrile, heart rate restaurant rate and blood pressure remained stable. Pulse oximetry remained stable. Hemoglobin this morning was 7.0. MCV is 86.7. Glucose remained fairly well controlled. She remains on vancomycin and Diflucan for a complicated UTI. Infectious disease is following. 04/28/2021 complains of right lower quadrant pain. Denies nausea. Renal function stable, BUN 15, creatinine 0.74. Afebrile, WBC 13.52. Hemoglobin 9.1, platelets 147. Blood sugars controlled. 04/29/2021 Tube feeds have remained off since Wednesday evening, positive for nausea vomiting last night, none this morning. Abdomen more distended, hypo- active bowel sounds. Diffuse tenderness.Positive bowel movement yesterday. Urology recommended no nephrostomy at this time , following closely with surgery. Surgery updated, recommending PEG tube be placed to gravity with a Bueno-initial flatus, trace dark brown drainage. Potassium 3.1. Afebrile, CBC pending. 04/30/2021 Yesterday WBC worsened, abdomen more distended .KUB and reported high-grade bowel obstruction, contrast within the stomach, vague density left upper quadrant, possible extravasation.CT of abdomen and pelvis completed yesterday reported high attenuation material from gastrostomy tube injection, contrast and peritoneal cavity around the spleen and liver in the upper abdomen, small pneumoperitoneum, gastrostomy tube did not appear to be in the stomach, multiple left-sided renal parapelvic cyst, moderate bilateral hydronephrosis on the right side, large parapelvic cyst, rectal fecal impaction with dilated large bowel and dilated small bowel, mechanical bowel obstruction, bilateral pleural effusions and basilar infiltrates and atelectasis, appears worse. Patient proceeded with exploratory laparotomy, converted to open procedure sigmoid gonzalo ctomy and creation of end colostomy and repair of gastrostomy along with placement of jejunal feeding tube. Returned to ICU, intubated, currently FiO2 50%, PEEP +5. Borderline hypotension ,maintained on IV fluid hydration of LR at 50 miles per hour, diprovan. Renal function mildly worsening, BUN 24, creatinine 1.14. Marginal urine output. Chest x-ray reported cardiomegaly and basilar atelectasis and small right pleural effusion. Continues on Diflucan and Zosyn as per ID. Telemetry sinus rhythm. Afebrile, normal WBC. Hemoglobin 10.8, platelets 216, INR 1.2, potassium 3.4, magnesium 2.1. 05/01/2021 remains on mechanical ventilation, FiO2 down to 40%/+5 of PEEP. Sedated on diprovan. Spontaneous Breathing trials being discussed. Diprovan recently weaned off, slowly waking up, discussing attempting CPAP trial. Significant endotracheal page secretions. Telemetry sinus rhythm 24-hour I&O reflecting a positive fluid balance ; received aggressive fluid boluses/resuscitation, required initiation of Levophed last night, currently on 2 mics. Chest x-ray reporting diffuse interstitial pattern with bilateral infiltrates, small effusion, venous congestion. Received a dose of Lasix ye sterday. Urine output improving. Renal function stable. PICC line placed yesterday with TPN initiated. Afebrile, normal WBC. Hemoglobin 8.4, platelets 179, sodium 136, potassium 3.9, magnesium 1.9, albumin 1.8. 05/02/2021 extubated yesterday, maintaining O2 sats in the 90s on 2 L nasal cannula. Borderline hypotension, continues on Levophed, currently 2 mics. Maintained on gentle IV fluid hydration, TPN, Zosyn and Diflucan. Large bowel movement rectally in addition to colostomy with loose stool. 24-hour I&O reflecting a positive fluid balance. Renal function stable Trickling of tube f eeds initiated. T-max 99.5, normal WBC. Hemoglobin 9.6, platelets 152. 6/ continues on Zosyn and Diflucan . Renal function stable. Complains of right-sided flank pain. Nephrostomy tube on hold as per urology.maintaining O2 sats in the 90s on 1 L nasal cannula . Chest x-ray reporting low lung volumes, possible basilar atelectasis Sinemet resumed on Wednesday, arousable, follows simple commands. Receiving TPN via PICC line and also on tube feeds at goal, tolerating well with minimal to no residuals. Hemoglobin 7.3. Potassium 3.0. 05/06/2021 hemoglobin 6.7, lab reporting more antibioties, sent out to the [facility], transfusion pending. Telemetry sinus rhythm with occasional PVCs. Potassium 3.1,potassium replacement in progress. TPN discontinued. Tube feeds converted over to a vital AF, at goal of 45 MLS/hr. Ostomy output very similar to tube feeding, watery. High NG and ostomy output. Shakes head yes to pain on the right lower abdominal/flank side. 05/07/2021 continue to have significant output from both ostomy and NG tube throughout the night. Today NG drainage slowing down. Ostomy drainage thickening up but continues to resemble tube feed. Tube feed at goal with minimal to no residuals. Urine output decreased. Urology notified, renal ultrasound ordered/pending. IV fluids increased. Sleepy, dozes off during conversation. Telemetry sinus rhythm. Receive 1 unit of packed RBCs with current Hemoglobin 7.1. Potassium 3.2, supplemented. Continues to complain of right-sided flank pain. 05/08/2021 lethargic. Moans and shakes head yes to pain with palpation of right lower abdominal quadrant. No surgical plans at this time as per urology.acute abdominal series reported distended small bowel with subcutaneous fluid levels, suspected small bowel ileus, partial mechanical obstruction. Tube feeds placed on hold, 5 mL released from J-tube balloon as per surgery with resulting in significantly decreased output from NG tube ( LIS). Ostomy output appears more bile in color. Renal function stable. Afebrile. Maintaining O2 sats in the 90s on 1 L nasal cannula. Continues on Zosyn , Diflucan and IV fluids. Objective - Vital Signs Vital signs: Vital Signs Temp 98.9 F 05/08/21 12:00 Pulse 80 05/08/21 14:00 Resp 14 05/08/21 14:00 BP 133/61 05/08/21 14:00 Pulse Ox 96 05/08/21 14:00 Intake & Output 05/07/21 05/08/21 05/08/21 18:59 06:59 18:59 Intake Total 1885 1300 950 Output Total 290 955 345 Balance 1595 345 605 Weight 102 kg Intake: IV 1260 1200 900 0.9 60 0.9% NaCl with KCl 40 Meq 800 1200 800 /l 1,000 ml @ 100 mls/hr IV .Q10H [facility] Rx#: [id number] Magnesium Sulfate-D5w Pmx 100 1 gm In Dextrose/Water 1 100ml.bag @ 100 mls/hr IVPB Q1H [facility] Rx#: [id number] Piperacillin-Tazobactam 3 200 100 .375 gm In Sodium Chloride 0.9% 100 ml @ 25 mls/hr IVPB Q8HR [facility] Rx# :[id number] Potassium Chloride 20 meq 100 In Water For Injection 1 100ml.bag @ 50 mls/hr IVPB Q2H [facility] Rx#: [id number] Intake, IV Titration 100 Amount Piperacillin-Tazobactam 3 100 .375 gm In Sodium Chloride 0.9% 100 ml @ 25 mls/hr IVPB Q8HR [facility] Rx# :[id number] Tube Feeding 405 0 0 Other 220 50 Output: Gastric Drainage 100 Urine 290 530 345 Stool 325 Other: Voiding Method Indwelling Catheter Indwelling Catheter # Bowel Movements 1 - Exam - Exam General: sitting up in bed, lethargic, occasionally opens eyes to name ,no acute distress. HEENT: PERRL. EOMI. conjunctivae normal. NG tube present. Neck: Supple, no JVD. Cardiac: Heart regular in rate and rhythm. No S3. No S4. No clicks, rubs. No murmur. Lungs: Clear breath sounds, no rhonchi, crackles, or wheezes,bilateral bases diminished. Abdomen: soft,distended, tender right lower quadrant, right flank ,status post surgery,positive bowel sounds. jejunal tube present. Midline Abdominal dressing clean dry and intact. Extremities: Significant Positive edema of all extremities, normal pulses. Skin: Warm and dry, Neurologic: Limited exam, follows simple commands, weak. - Labs CBC & Chem 7: 05/08/21 03:50 05/08/21 03:50 Labs: Abnormal Lab Results - Last 24 Hours (Table) 05/08/21 05/08/21 Range/Units 03:50 03:50 RBC 2.61 L (3.80-5.40) m/uL Hgb 7.4 L (11.4-16.0) gm/dL Hct 23.2 L (34.0-46.0) % RDW 19.3 H (11.5-15.5) % Lymphocytes # 0.9 L (1.0-4.8) k/uL Chloride 111 H (98-107) mmol/L BUN 18 H (7-17) mg/dL Calcium 7.7 L (8.4-10.2) mg/dL Alkaline Phosphatase 165 H (38-126) U/L Total Protein 4.1 L (6.3-8.2) g/dL Albumin 1.8 L (3.5-5.0) g/dL Assessment and Plan Assessment: Displaced PEG tube with extravasation of contrast and free air, sigmoid volvulus, fecal impaction, status post exploratory laparotomy, sigmoid colectomy, creation of end colostomy and repair of gastrostomy, jejunal feeding tube placement. Acute hypoxic respiratory failure, status/ post mechanical ventilator-dependent Hypovolemic hypotension Acute renal failure, ATN ,secondary to the above and hydronephrosis Sepsis,multifactorial, including multiple comorbidities ,complicated acute UTI ,severe right-sided hydronephrosis with right stent removal this admission,and #1, not present on admission. Acute toxic, metabolic encephalopathy,brain CT reported no acute infarcts, chronic stable changes, in a patient with history of CVA, possibly secondary to lack of Sinemet, levels ordered, suspect severe parkinsonism,Neurology following. Acute UTI, enterococcus faecium, in a patient with history of recurrent UTIs, recent acute UTI with Enterobacter aerogenes, complicated with bilateral hydronephrosis Bilateral hydronephrosis,no change in the right-sided hydronephrosis. Right ureteral stent insertion 01/06/21, obstruction of UPJ-status post cystoscopy with right stent removed, unable to replace. Nephrostomy pending. Constipation with fecal impaction Status post PEG tube placement on 04/19/2021 Hypokalemia Hypomagnesemia Chronic renal failure stage II Chronic congestive heart failure, diastolic dysfunction Hypertension Hyperlipidemia chronic renal failure secondary to nephrosclerosis, baseline 1.2-1.5 Parkinson's disease, advanced History of CVA with residual left-sided weakness and expressive aphasia, TIA; c urrently not on any antiplatelets, PCP verify at office. Hypothyroidism Bipolar disorder Obesity, BMI 36 Normocytic anemia Status post PICC line with initiation of TPN Small bowel ileus, possible's partial mechanical obstruction 05/07/21 No code, no CPR, no intubation Plan: Continue on current medication regime ,monitoring and symptomatic treatment. Prognosis discussed with american sign language teacher-poor prognosis. PCP, Dr. Nelson to discuss with family palliative care, hospice. Strict aspiration pre cautions.IV antibiotics as per ID. ICU management as per american sign language teacher.Prognosis guarded given multiple complex medical issues. The impression and plan of care has been dictated as directed. : I performed a history and examination of this patient, discussed the same with the dictator. I agree with the dictator's note ,documented as a scribe. Any additional findings or plans will be noted.
[2021-05-08 17:03] LABS: Glucose,Whole Blood 65 mg/dL (75-99)
[2021-05-08] MEDS ORDERED: DEXTROSE 50% SYRINGE 50 ML IVP ONE (17:04)
[2021-05-08] MEDS: DEXTROSE 10% IN WATER 500 ML in EMPTY BAG 1 BAG IV SCH (17:40)
[2021-05-08 20:17] LABS: Glucose,Whole Blood 91 mg/dL (75-99)
[2021-05-08] MEDS: HYDROmorphone 0.5 MG/0.5 ML SYRINGE IVP PRN (21:45)
--- NOTE | 2021-05-08 23:50 | PN ---
PROGRESS NOTE DATE OF SERVICE: 05/08/2021 REASON FOR FOLLOWUP: Intraabdominal infection. INTERVAL HISTORY: The patient is afebrile. The patient is hemodynamically stable, not on pressor support. The patient is currently on 1 L nasal cannula. Still has significant output of the NG, as well as colostomy. The patient remains to be lethargic and unable to provide any history. No change reported by nursing staff. PHYSICAL EXAMINATION: Blood pressure 124/49, pulse of 89, temperature 98.4. She is 95% on 2 L nasal cannula. General description is an elderly female lying in bed in no distress. Respiratory system: Unlabored breathing, decreased breath sounds, with no wheeze. Heart S1, S2. Regular rate and rhythm. Abdomen soft, no tenderness. LABS: Hemoglobin 7.4, white count 6.1, BUN of 18, creatinine 0.99. DIAGNOSTIC IMPRESSION AND PLAN: Patient with abdominal infection from perforation of stomach from the PEG tube and ischemic colitis from the volvulus of the sigmoid colostomy, status post laparotomy, repair of the stomach defect and sigmoid colectomy. The patient on Zosyn. White count normal. Continue supportive care. MMODL / IJN: [id number] /
[2021-05-09] MEDS: INSULIN ASPART (NovoLOG) 100 UNIT/ML VIAL SQ SCH ×4 (00:44→19:05)
[2021-05-09 00:45] LABS: Glucose,Whole Blood 93 mg/dL (75-99)
[2021-05-09] MEDS: HEPARIN SODIUM,PORCINE/PF 5,000 UNIT/0.5 ML SYRINGE SQ SCH ×3 (00:57→15:33)
[2021-05-09] MEDS: PIPERACILLIN-TAZOBACTAM 3.375 GM in SODIUM CHLORIDE 0.9% 100 ML IVPB SCH ×3 (00:57→15:33)
[2021-05-09] MEDS: DEXTROSE 10% IN WATER 500 ML in EMPTY BAG 1 BAG IV SCH ×2 (05:01→14:05)
[2021-05-09 05:05] LABS: Anisocytosis Slight; Basophils # (A) 0.1 k/uL (0-0.2); Basophils % (A) 1 %; Eosinophils # (A) 0.1 k/uL (0-0.7); Eosinophils % (A) 2 %; HCT 26.4 % (34.0-46.0); HGB 8.6 gm/dL (11.4-16.0); Hypochromasia Slight; Lymphocytes # (A) 1.2 k/uL (1.0-4.8); Lymphocytes % (A) 17 %; MCHC 32.7 g/dL (31.0-37.0); MCV 88.6 fL (80.0-100.0); Mean Platelet Volume 8.3; Monocytes # (A) 0.3 k/uL (0-1.0); Monocytes % (A) 4 %; Neutrophils # (A) 5.2 k/uL (1.3-7.7); Neutrophils % (A) 74 %; Platelet Count 177 k/uL (150-450); Poikilocytosis Slight; RBC 2.98 m/uL (3.80-5.40); RDW 19.5 % (11.5-15.5)
[2021-05-09] MEDS: HYDROmorphone 0.5 MG/0.5 ML SYRINGE IVP PRN ×2 (05:13→20:55)
[2021-05-09 05:20] LABS: Calcium 8.2 mg/dL (8.4-10.2); Potassium 4.1 mmol/L (3.5-5.1)
[2021-05-09] MEDS: CARBIDOPA-LEVODOPA 25-100 MG 1 EACH TAB PO SCH ×4 (08:00→20:55)
[2021-05-09] MEDS: FLUCONAZOLE 100 MG TAB PO SCH (08:00)
[2021-05-09 08:01] LABS: Glucose,Whole Blood 106 mg/dL (75-99)
[2021-05-09] MEDS: PANTOPRAZOLE 40 MG/10 ML VIAL IV SCH (08:01)
[2021-05-09] MEDS: NYSTATIN 100,000 UNIT/GM POWD 15 GM TOPICAL SCH (08:01)
[2021-05-09] MEDS: LEVOTHYROXINE IVP 100 MCG/5 ML VIAL IV SCH (08:01)
--- NOTE | 2021-05-09 08:46 | XR ---
EXAMINATION TYPE: XR chest 1V portable DATE OF EXAM: 05/09/2021 COMPARISON: Prior chest x-ray 05/08/2021 HISTORY: Shortness of breath TECHNIQUE: Single frontal view of the chest is obtained. FINDINGS: Airspace disease is more conspicuous in the right upper lobe on the current exam. Left-rehana ed PICC line is again noted. Cardiac mediastinal silhouette is stable. Patchy basilar density is note d. No evident pneumothorax or pleural effusion. The aorta is dense. NG tube is present coiled within the stomach. Surgical clips are present in the right upper quadrant, there are gricelda in the abdomin al midline. IMPRESSION: Correlate for pneumonia.
[2021-05-09 11:35] LABS: Glucose,Whole Blood 111 mg/dL (75-99)
--- NOTE | 2021-05-09 12:28 | P.PN ---
Subjective Progress Note Date: 05/09/21 Principal diagnosis: Abdominal sepsis secondary to gastric perforation and displaced PEG tube with pneumoperitoneum, sigmoid volvulus and fecal impaction status post expiratory laparotomy and sigmoid colectomy day #9 This is a 75-year-old white female patient a resident of a local [facility], who was initially admitted to the hospital on 04/15/2021 when she was brought to the hospital per EMS with altered mentation, and vomiting. Patient was receiving Rocephin for a urinary tract infection at the nursing facility and patient is known to have a history of multiple recurrent urinary tract infections and history of right ureteral stent placement. Patient at baseline is a poor historian, related to previous history of CVA and patient has left-sided weakness and expressive aphasia. Other medical history significant for hyperlipidemia, hypertension, hypothyroidism, Parkinson's disease, anxiety, depression, degenerative arthritis. Most recent urine culture from February and March 2021 showed evidence of enterococcus with multiple resistances and she was placed on vancomycin in the emergency department. CT of the abdomen and pelvis on admission showed marked right hydronephrosis, and a small left hydronephrosis similar findings on the CT of the abdomen and pelvis from 03/18/2021. Urology is following and was planning on insertion of a nephrostomy. Neurological workup showed a brain CT with chronic appearing periventricular white matter of ischemic type, which was stable. EEG showed an abnormal EEG due to the background slowing of mild to moderate degree suggestive of generalized cerebral dysfunction as seen with toxic metabolic encephalopathy and diffuse structural brain abnormality. No evidence of epileptiform activity was seen. Neurology's impression was that the altered mental status was likely due to toxic metabolic encephalopathy. Patient continued to be nauseous and vomiting and was unable to take any oral medications or oral feedings. On 04/19/2021 patient underwent EGD and PEG tube placement by Dr. Dempsey. The EGD showed no abnormalities within the stomach and duodenum. However the patient continued to have intermittent nausea and vomiting, and tube feedings were on hold and the PEG tube was connected to dependent drainage. On 04/24/2021 patient underwent cystoscopy, right retrograde pyelogram and right ureteroscopy, right ureteral stent was removed, however attempts to replace it were unsuccessful, and nephrostomy tube insertion was planned. On 04/29/2021 patient developed worsening tenderness and distention of the abdomen, she continued to have nausea with vomiting, and her leukocytosis was worsening. CT of the abdomen and pelvis on 04/29/2021 showed extravasation of the contrast from the PEG tube, with a concern of dislodged PEG tube from the stomach with a small amount of air in the peritoneum. Also there was a large stool ball and markedly distended possibly volvulized sigmoid colon. Right nephrostomy procedure was placed on hold, and patient was taken to the operating room and underwent exploratory laparotomy which was converted to open procedure, sigmoid colectomy, and creation of end colostomy and repair of gastrostomy along with placement of jejunal feeding tube. Patient was admitted to the intensive care unit following her procedure earlier this morning at around 3:00 this morning intubated and on mechanical ventilator support. This morning she is on assist-control mode of ventilation with a rate of 14, tidal vital 300, FiO2 of 60% and PEEP of 5, this morning's blood gas showed a pO2 of 219, pCO2 42, pH of 7.47, this was done on 100% FiO2 and this was subsequently dropped to 60%. She is on lactated Ringer's at 50 ML per hour, Diprivan and is at 30 ML per hour, hemodynamically she is stable, not requiring any vasopressor support, she is in sinus mechanism, blood pressure is 100/55. Her chest x-ray today has been reviewed and not showing ET tube and OG tube in appropriate positions, no pneumothorax, the basilar atelectasis, low lung volumes. Breasts the blood work reveals white count of 8.2, hemoglobin is 10.8, platelet count is 216, INR is 1.2, sodium is 137, potassium is 3.4, chloride is 101, CO2 is 30, BUN is 24, creatinine is 1.14. Patient's urine output has been quite poor, and she has only produced 35 mL of urine overnight. Current antibiotic coverage includes Diflucan and Zosyn for evidence of enterococcus faecium in the urine, and Fani albicans in the urine culture on urine culture from 04/20/2021. ID service is following. On 05/01/2021 patient seen in follow-up in the intensive care unit. She remains sedated, and intubated on mechanical ventilator, she is currently on assist control mode of ventilation with a rate of 14, tidal volume 300, FiO2 of 40% and PEEP of 5. This morning his blood gases show pO2 of 93, pCO2 43, and pH of 7.48 and this was done on FiO2 of 50% and it has since been dropped to 40%. She is currently on Diprivan at 40 mics per kilo per minute, lactated Ringer's at 100 ML per hour, 0.9 was seen at 20 ML per hour. Levofed is at 2 mics per minute. Patient was started on TPN yesterday which is infusing at 30 ML per hour, patient's urine output has improved in the last 24 hours and responds to IV flu ids and one dose of Lasix was given yesterday in the afternoon. However she received significant amount of IV fluid boluses, and she is in positive net fluid balance of 4.3 L or last 24 hours. Patient has significant generalized edema. This morning's chest x-ray is pending, this morning's labs have been reviewed showing white blood cell count of 7.1, hemoglobin of 8.4, platelet count is 179, sodium is 136, the rest of the electrolytes are unremarkable, BUN is 28 creatinine is 1.14. She is currently in sinus mechanism with a rate of 89 BPM, no arrhythmias overnight, lung sounds are clear, abdomen is soft, did not incision is clean dry and intact, left upper quadrant colostomy and placed on a to produce small amount of liquid yellowish colored stool, right upper quadrant J-tube in place, and patient has not been initiated on not tube feedings yet. Overall hemodynamically she is stable, minimal amount of pressors, urine output is improving, renal profile is stable, FiO2 requirement is 40%, urology is following, and patient is being considered for nephrostomy tube however this has not been scheduled yet. We'll proceed with spontaneous awakening trial and a spontaneous breathing trial this morning On 05/02/2021 patient seen in follow-up in intensive care unit, she was successfully weaned and next visit for mechanical ventilator yesterday on 05/01/2021. This morning she is resting in bed, she is lethargic, she does not open eyes to command, does not follow any commands, she is currently just on 2 L of oxygen with a pulse ox of 96%, does not appear to be in any respiratory distress, does withdraw from pain. She is currently on 0.9 normal saline at a rate of 50 ML per hour, TPN is at 30 ML per hour, still has a leave of fed infusing at 2 mics per minute. Patient appears to be quite generally fluid overloaded, with extensive edema involving her upper and lower extremities. Lung sounds are positive for minimal wheezes, no rhonchi. Today's chest x-ray reveals central venous congestion, and possibility of left pleural effusion. We'll cut back IV fluids to KVO. Remains on antibiotics in the form of Zosyn and Diflucan. She's been afebrile. Abdomen is soft, and her colostomy is putting out yellow semi-liquid stool. G-tube is in place, however tube feedings have not been started yet, patient has been on TPN. Apparently patient has also passed a bowel movement per rectum. There are positive bowel sounds. Labs have been reviewed showing white blood cell count of 9.2, hemoglobin of 9.6, platelet count is 152, lites are within normal limits, B1 of 25 creatinine was 1.13, these were within normal limits. Urine output been in the order of 50-60 ML per hour. And patient has produced 2.1 L in urine output over last 24 hours, and she is visiting positive net fluid balance of 400 mL over last 24 hours. 19 2020, the patient is being seen in follow-up in the intensive care unit. As stated earlier, the patient's back to has been removed and the patient was given a J-tube and a colostomy. She continues to have an NG tube in place. Enteral feeding was started yesterday and she is currently receiving Jevity at the rate of 20 mL an hour with a goal of 55. At the same time, the patient was started on TPN which is running at 30 mL an hour . Jevity is being gradually advanced and the goal is to get rid of the TPN with the next 24-48 hours. Meanwhile, the colostomy site is functional. Surgical with that is dry clean and intact. Output from the NG is minimal at this point in time. She is quite debilitated. She is arousable. She is having extensive edema in all 4 extremities and she was given a dose of Lasix yesterday. She remains on a combination of Zosyn and Diflucan. She is afebrile for now. On her blood work, she has a white cell, 3.3 with a hemoglobin of 7.2 at which is lower compared to yesterday. Platelet count is up to 129 ,patient's current cardiac rhythm is sinus.clinically, the patient looks around. She doesn't communicate. She grunts and moans on and off and I think that part of her baseline.patient's creatinine remains stable. The patient was given a dose of Lasix yesterday and she responded quite a bit and she has been a significant negative fluid balance of at least 3 L over the past 24 hours. Patient is seen today 05/04/2021 in follow-up in the intensive care unit. Her status has been about the same overnight. She still maintaining good O2 saturations in the upper 90s on either of oxygen. She remains on TPN and lipids. Nasogastric tube remains in place. She has Jevity for nutritional support through the J-tube. Currently at 40 ML's per hour. Goal is 55 mls per hour. Ostomy is functioning approximately 800 mL of liquid return in the past 12 hours. Urine output remains good at approximately 100 mL per hour. She's been afebrile. Hemodynamically stable. Remains on Zosyn and Diflucan. He mostly has garbled speech. Follow any meaningful commands. We believe this is her baseline. White count 4.1. Hemoglobin 7.3. Platelet count 143. Sodium 140. Potassium 3.0. Creatinine 1.07. X-ray continues to revealed chronic changes with patchy left basilar infiltrate/atelectasis. She remains in a negative balance. No significant change compared to previous. She remains on heparin for DVT prophylaxis. Patient was reevaluated today on 05/05/2021, patient remains in the ICU. Still on 1 L nasal cannula, O2 saturations 94%, patient is on TPN, and she is also on Jevity via J-tube which will be switched to vital AF today. Patient seems to be sleepy, but arousable, following very simple instructions like wiggling toes squeezing hands and sticking out tongue. Obviously she's comprehending what she is being controlled. Patient seems to be generally frail, and weak. Nasogas tric tube remains in place, and bilious drainage is noted from the nasogastric tube. Patient is receiving enteral eating via jejunostomy tube and she also receiving TPN. Her ostomy is functioning well, urine output is perfect. Patient is hemodynamically stable, remains on Zosyn and Diflucan. Speech remains garbled. CBC is relatively normal except for hemoglobin of 7.3, potassium is 3. Profile is relatively normal creatinine is 1.07 chest x-ray showed low lung volumes and basilar atelectasis no clear-cut evidence of pneumonia. Patient was reevaluated today on 05/06/2021, remains in the ICU on 1 L nasal cannula, she remains encephalopathic, she is on 1 L FiO2 with O2 sat showed 95%. IV fluid is at KVO. Patient is in sinus rhythm remains on enteral feeding via jejunostomy tube, she is on vital af at 45 ML per hour. Continues to have significant output from the nasogastric tube about 1.1 L and over 1800 mL from the ostomy. Lasix remains on hold since the patient has significant output on her own. And we will continue tube feeding. Considering her mental status and her overall clinical status is marginal, I plan to keep the patient in the ICU. Hemoglobin today is down to 6.7, and I have ordered a unit of packed RBCs that is pending. Potassium is low at 2.9 being corrected as per protocol. Reevaluated today on 05/07/2021, patient remains in the ICU, on 1 L nasal cannula . IV fluids remains at KVO but I went ahead and increased it to 100 mL per hour since the patient is having significant output from the ostomy tube and she is having significant amount of drainage from the nasogastric tube. Still on enteral feeding via jejunostomy tube. Her nasogastric tube put out over 1500 mL in the last 24 hours and her colostomy put out over 700 mL overnight only. Hence I felt the need to increase her IV fluid. Patient remains sleepy and weak. She does wake up and follows very simple instructions like wiggling toes and squeezing hands only. Overall she remains relatively encephalopathic. CBC is relatively normal except for hemoglobin of 7.1. Patient did receive a unit of packed RBCs yesterday. She received a total of 2 units since admission On 05/08/2021 patient seen in follow-up in intensive care unit, she is lethargic, but arousable to voice, at times she moans, but unable to localize her pain, her verbal responses are difficult to understand. She appears to be in no acute respiratory distress, she is on 1 L of oxygen pulse ox is 96%, IV fluids 0.9 normal saline with 40 of potassium at 100 ML per hour, her tube feeds were placed on hold yesterday because of significant output from both ostomy and NG tubes. Acute abdominal series were completed showing distended small bowel with subcutaneous fluid levels, possible small bowel ileus partial mechanical obstruction not excluded. Gen. surgery is following, and recommended holding the tube feedings were 24 hours. NG tube remains to suction, and output in the last 24 hours has significantly decreased and is down to 100 ML, colostomy output was down to 325 and is more by Jaime in color. Patient is making adequate urine, and has produced 820 ML of urine in the last 24 hours, she remains on D iflucan and Zosyn for antibiotic coverage. Urine culture showed enterococcus, blood cultures have been negative. Today's labs have been reviewed, white blood cell count is 6.1, hemoglobin is 7.4, electrolytes and renal profile are unremarkable, BUN is 18 creatinine 0.9. Patient has been afebrile, blood pressure is been stable, not requiring any vasopressor support. Generally she is swollen, however we have been holding off on diuretics related to her poor nutritional status and to low albumin. Nephrology has been following in regards to right-sided hydronephrosis, and there is plans for any surgical intervention on neurology's part at this time. Reevaluated today on 05/09/2021, remains in the ICU, remains on 1 L nasal cannula, O2 sats is 95%. Patient had intermittent episodes of hypoglycemia yesterday mostly because her tube feeds to remain on hold. Hence I recommended starting the patient on D10 at 50 mL per hour and that seems to solve the problem. However if the patient is going to have prolonged holding of her tube feeding I may recommend that we go back on TPN. This will be decided upon by surgery today. Overall the patient remains about the same, remains encephalopa thic. She is however awake, she follows simple instructions like wiggling toes and squeezing hands. She remains hemodynamically stable, she is on D10W, IV fluid at KVO otherwise. She continues to have significant output from colostomy, and she had less output from the nasogastric tube. Again her enteral feeding remains on hold as recommended by surgery may be restarted today and stop would have some the patient on TPN Objective - Vital Signs Vital signs: Vital Signs Temp 97.7 F 05/09/21 12:00 Pulse 81 05/09/21 12:00 Resp 8 L 05/09/21 12:00 BP 124/67 05/09/21 12:00 Pulse Ox 95 05/09/21 12:00 Intake & Output 05/08/21 05/09/21 05/09/21 18:59 06:59 18:59 Intake Total 1350 650 300 Output Total 535 640 214 Balance 815 10 86 Weight 100.5 kg 100.5 kg Intake: IV 1300 650 300 0.9% NaCl with KCl 40 Meq 1200 100 /l 1,000 ml @ 100 mls/hr IV .Q10H [facility] Rx#: [id number] Dextrose 10% in Water 500 550 300 ml In Empty Bag 1 bag @ 50 mls/hr IV .Q10H [facility]DOMERO Rx #:[id number] Piperacillin-Tazobactam 3 100 .375 gm In Sodium Chloride 0.9% 100 ml @ 25 mls/hr IVPB Q8HR [facility]DOM[facility] Rx# :[id number] Tube Feeding 0 Other 50 Output: Gastric Drainage 100 Urine 535 530 214 Stool 10 Other: Voiding Method Indwelling Catheter Indwelling Catheter Indwelling Catheter - Exam GENERAL EXAM: Revealed 75-year-old female, generally weak, encephalopathic, and follows instructions a bit better today compared to yesterday. HEAD: Normocephalic/atraumatic. EENT: PERRLA, EOMI, anicteric, no neck masses, nasogastric tube is intact , less draining over the last 24 hours CHEST: Symmetrical expansion. LUNGS: The mechanical chest expansion, diminished breath sounds at the bases no rhonchi and no wheezes. CVS: Normal S1 and S2, no S3 gallop. ABDOMEN: Soft, nontender. No hepatosplenomegaly, normal bowel sounds, no guarding or rigidity. Mid abdominal incision clean dry and intact, covered with surgical dressing, epigastric jejunostomy tube in place, insertion site clean dry intact, left upper quadrant colostomy, fair amount of greenish yellowish stools noted. EXTREMITIES: Good Pulses bilaterally no clubbing or cyanosis. 2+ bipedal edema MUSCULOSKELETAL: Generally weak otherwise unremarkable. SKIN: No rashes CENTRAL NERVOUS SYSTEM: Lethargic. But arousable and follows simple instructions a bit better today compared to yesterday - Labs CBC & Chem 7: 05/09/21 04:54 05/09/21 04:54 Labs: Abnormal Lab Results - Last 24 Hours (Table) 05/08/21 05/09/21 05/09/21 Range/Units 17:00 04:54 04:54 RBC 2.98 L (3.80-5.40) m/uL Hgb 8.6 L (11.4-16.0) gm/dL Hct 26.4 L (34.0-46.0) % RDW 19.5 H (11.5-15.5) % Chloride 112 H (98-107) mmol/L POC Glucose (mg/dL) 65 L (75-99) mg/dL Calcium 8.2 L (8.4-10.2) mg/dL 05/09/21 05/09/21 Range/Units 07:59 11:34 RBC (3.80-5.40) m/uL Hgb (11.4-16.0) gm/dL Hct (34.0-46.0) % RDW (11.5-15.5) % Chloride (98-107) mmol/L POC Glucose (mg/dL) 106 H 111 H (75-99) mg/dL Calcium (8.4-10.2) mg/dL Assessment and Plan Assessment: Impression: Postoperative day #9 patient is status post expiratory laparotomy, sigmoid colectomy, creation of end colostomy and repair of gastrostomy along with placement of the jejunal feeding tube . This was all secondary to displacement of PEG tube Acute abdominal sepsis secondary to above with pneumoperitoneum and gastric perforation in addition to all of this patient had a urinary tract infection. History of hydronephrosis and placement of right ureteral stent in December with subsequent removal in April of 2021, and unsuccessful attempt to place another ureteral stent, patient may require nephrostomy tube placement Acute kidney injury with hydronephrosis and acute tubular necrosis recovering nicely. 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 Chronic kidney disease stage II Chronic diastolic congestive heart failure Benign essential hypertension Dyslipidemia Hypothyroidism Acute blood loss anemia, given 1 unit of packed RBCs yesterday. Intermittent hypoglycemia secondary to holding enteral feeding and TPN. Hence patient was placed on D10W Recommendation: Continue IV fluids. Continue D10 for intermittent hypoglycemia. Continue to monitor daily electrolytes and CBC. Continue aspiration precautions. Continue antibiotics including Zosyn and Diflucan. Enteral feeding via jejunostomy tube. Off TPN. Keep nasogastric tube in place since there is significant bilious drainage noted. Continue GI and DVT prophylaxis. We'll continue to monitor in ICU Time with Patient: Less than 30
--- NOTE | 2021-05-09 13:17 | P.PN ---
Subjective Progress Note Date: 05/09/21 This is a 75-year-old female with past medical history of UTI Strep agalactiae - (group b) with Pyelonephritis, severe right hydronephrosis with right ureteral stent insertion to 12/26/20,CVA with residual left-sided weakness, expressive aphasia/TIA, hyperlipidemia, hypertension, chronic renal failure, hypo thyroidism, obesity, anxiety, bipolar, depression, former nicotine dependence presented to the ER via EMS for [facility] with reports that patient had mental status changes, combative over the last few days with an episode of vomiting. Patient's baseline is chronic residual left-sided weakness from prior CVA with expressive aphasia. Patient currently nonverbal, rigid, posturing, attempting to communicate with blinking of right eye. Febrile, T-max 100.3, WBC 13.1 yesterday down to 7.9. Maintained on vancomycin. Hemoglobin 8, platelets 217, glucose 104, potassium 2.8, magnesium 1.4 both being supplemented. Sodium 140, BUN 9, creatinine 0.73. Lactic acid 0.8. UA reporting urine WBCs 21, large leukocytes 1+ ketones. EKG reported normal sinus rhythm, left ventricular hypertrophy, chest x-ray reporting bibasilar atelectasis/subsegmental consolidation. Baca virus not detected. 04/18/[address] reported chronic appearing periventricular white matter ischemic type changes, stable .evaluated by neurology who attributes clinical presentation to suspected severe Parkinsonian from not having Sinemet for a few days. PEG tube placement pending .maintained on IV fluid hydration. Remains encephalopathic,more alert today, minimally conversing, not following commands. EEG/EMG completed, results pending T-max 99.9, normal WBC. Urine culture reporting enterococcus faecium.preliminary blood cultures reporting no growth at 48 hours Continues on vancomycin, creatinine 0.68. Hemoglobin 8.5, platelets 171. Potassium 3.2, magnesium 2.2. 04/21/2021 maintain IV fluid hydration. Lethargic, nausea and vomiting reported after meds administered via PEG-therefore has not received Sinemet yet today. Urology reconsult regarding cystoscopy for hydronephrosis. Impacted, fleets jermaine mas/disimpaction ordered. PICC line ordered for TPN, as patient has been without nutrition for several days prior to admission and has not been able to be started on PEG tube feedings. Afebrile. 04/22/2021 more alert, received Sinemet yesterday and this morning, no nausea vomiting. We'll reattempt tube feeds via PEG tube -if unable to tolerate then we'll proceed with PICC line and TPN. Received one fleets enema with small stool and reported. Potassium 2.8, receiving supplementation, magnesium 1.8. Urine remains cloudy. Evaluated by urology and scheduled for surgery/potential cystoscopy/right ureteral stent removal/8 ureteroscopy/possible replacement of stent on 04/24/2021. 04/23/2021 large bowel movement last night. Reports diffuse abdominal pain. Tolerating tube feeds at 40 MLS per hour/Goal of 55 with minimal to no residuals, no nausea or vomiting. Continues on vancomycin. Scheduled for cystoscopy tomorrow with right ureteral stent exchange. Afebrile. 04/24/2021 Recently returned from cystoscopy, verbal report of stent exchange- multiple attempts. Currently sedated, opens eyes and falls back asleep. 04/25/2021 postop day #1 from cystoscopy. Procedure note reports right ureteral stent removed, multiple attempts made to identify the triple-lumen unable to identify, contrast injected but did not pass into the renal pelvis, multiple attempts made to advance Glidewire-unsuccessful, and procedure was terminated. Bueno catheter with yellow urine with sediment. Patient sleepy but continues to complain of pain, attempting to use communication board. Afebrile, BMP pending. 04/26/2021: Patient is postop day 2 cystoscopy with removal of ureteral stent. There were unable to put another stent in. A urostomy tube is recommended if she continues to have problems per urology. She remains afebrile, blood pressure heart rate and restaurant rate remained stable. Infectious disease, urology and neurology are following. Their notes were reviewed today. Electrolytes are stable. Sugar slightly elevated before breakfast and 156. She large bowel movement last night. She is noted to have elevated TSH at 6.27. She remains on Synthroid of 150 g daily. She remains on vancomycin for her complicated UTI. Diflucan and added. Chillier self this morning is somnolent, but arousable. She can she's tired. She denies any other complaints when specifically asked. She continues to have significant upper extremity edema, most likely from the IV fluids she was on. Her tube feedings are currently at goal at 55 mL per hour. 04/27/2021: Patient status postop day #3 cystoscopy and ureteral stent removal. New stent could not be placed. Urology is following. They're considering a right-sided nephrostomy tube if her right lower quadrant pain is not resolved. Today she complains of right lower quadrant pain. She currently denies any nausea vomiting, chest pains, pressures, shortness of breath. She is nothing by mouth still. She remains afebrile, heart rate restaurant rate and blood pressure remained stable. Pulse oximetry remained stable. Hemoglobin this morning was 7.0. MCV is 86.7. Glucose remained fairly well controlled. She remains on vancomycin and Diflucan for a complicated UTI. Infectious disease is following. 04/28/2021 complains of right lower quadrant pain. Denies nausea. Renal function stable, BUN 15, creatinine 0.74. Afebrile, WBC 13.52. Hemoglobin 9.1, platelets 147. Blood sugars controlled. 04/29/2021 Tube feeds have remained off since Wednesday evening, positive for nausea vomiting last night, none this morning. Abdomen more distended, hypo- active bowel sounds. Diffuse tenderness.Positive bowel movement yesterday. Urology recommended no nephrostomy at this time , following closely with surgery. Surgery updated, recommending PEG tube be placed to gravity with a Bueno-initial flatus, trace dark brown drainage. Potassium 3.1. Afebrile, CBC pending. 04/30/2021 Yesterday WBC worsened, abdomen more distended .KUB and reported high-grade bowel obstruction, contrast within the stomach, vague density left upper quadrant, possible extravasation.CT of abdomen and pelvis completed yesterday reported high attenuation material from gastrostomy tube injection, contrast and peritoneal cavity around the spleen and liver in the upper abdomen, small pneumoperitoneum, gastrostomy tube did not appear to be in the stomach, multiple left-sided renal parapelvic cyst, moderate bilateral hydronephrosis on the right side, large parapelvic cyst, rectal fecal impaction with dilated large bowel and dilated small bowel, mechanical bowel obstruction, bilateral pleural effusions and basilar infiltrates and atelectasis, appears worse. Patient proceeded with exploratory laparotomy, converted to open procedure sigmoid gonzalo ctomy and creation of end colostomy and repair of gastrostomy along with placement of jejunal feeding tube. Returned to ICU, intubated, currently FiO2 50%, PEEP +5. Borderline hypotension ,maintained on IV fluid hydration of LR at 50 miles per hour, diprovan. Renal function mildly worsening, BUN 24, creatinine 1.14. Marginal urine output. Chest x-ray reported cardiomegaly and basilar atelectasis and small right pleural effusion. Continues on Diflucan and Zosyn as per ID. Telemetry sinus rhythm. Afebrile, normal WBC. Hemoglobin 10.8, platelets 216, INR 1.2, potassium 3.4, magnesium 2.1. 05/01/2021 remains on mechanical ventilation, FiO2 down to 40%/+5 of PEEP. Sedated on diprovan. Spontaneous Breathing trials being discussed. Diprovan recently weaned off, slowly waking up, discussing attempting CPAP trial. Significant endotracheal page secretions. Telemetry sinus rhythm 24-hour I&O reflecting a positive fluid balance ; received aggressive fluid boluses/resuscitation, required initiation of Levophed last night, currently on 2 mics. Chest x-ray reporting diffuse interstitial pattern with bilateral infiltrates, small effusion, venous congestion. Received a dose of Lasix ye sterday. Urine output improving. Renal function stable. PICC line placed yesterday with TPN initiated. Afebrile, normal WBC. Hemoglobin 8.4, platelets 179, sodium 136, potassium 3.9, magnesium 1.9, albumin 1.8. 05/02/2021 extubated yesterday, maintaining O2 sats in the 90s on 2 L nasal cannula. Borderline hypotension, continues on Levophed, currently 2 mics. Maintained on gentle IV fluid hydration, TPN, Zosyn and Diflucan. Large bowel movement rectally in addition to colostomy with loose stool. 24-hour I&O reflecting a positive fluid balance. Renal function stable Trickling of tube f eeds initiated. T-max 99.5, normal WBC. Hemoglobin 9.6, platelets 152. 6/ continues on Zosyn and Diflucan . Renal function stable. Complains of right-sided flank pain. Nephrostomy tube on hold as per urology.maintaining O2 sats in the 90s on 1 L nasal cannula . Chest x-ray reporting low lung volumes, possible basilar atelectasis Sinemet resumed on Wednesday, arousable, follows simple commands. Receiving TPN via PICC line and also on tube feeds at goal, tolerating well with minimal to no residuals. Hemoglobin 7.3. Potassium 3.0. 05/06/2021 hemoglobin 6.7, lab reporting more antibioties, sent out to the [facility], transfusion pending. Telemetry sinus rhythm with occasional PVCs. Potassium 3.1,potassium replacement in progress. TPN discontinued. Tube feeds converted over to a vital AF, at goal of 45 MLS/hr. Ostomy output very similar to tube feeding, watery. High NG and ostomy output. Shakes head yes to pain on the right lower abdominal/flank side. 05/07/2021 continue to have significant output from both ostomy and NG tube throughout the night. Today NG drainage slowing down. Ostomy drainage thickening up but continues to resemble tube feed. Tube feed at goal with minimal to no residuals. Urine output decreased. Urology notified, renal ultrasound ordered/pending. IV fluids increased. Sleepy, dozes off during conversation. Telemetry sinus rhythm. Receive 1 unit of packed RBCs with current Hemoglobin 7.1. Potassium 3.2, supplemented. Continues to complain of right-sided flank pain. 05/08/2021 lethargic. Moans and shakes head yes to pain with palpation of right lower abdominal quadrant. No surgical plans at this time as per urology.acute abdominal series reported distended small bowel with subcutaneous fluid levels, suspected small bowel ileus, partial mechanical obstruction. Tube feeds placed on hold, 5 mL released from J-tube balloon as per surgery with resulting in significantly decreased output from NG tube ( LIS). Ostomy output appears more bile in color. Renal function stable. Afebrile. Maintaining O2 sats in the 90s on 1 L nasal cannula. Continues on Zosyn , Diflucan and IV fluids. 05/09/2021 maintaining O2 sats in the 90s on 1 L nasal cannula. Chest x-ray noted. More alert. Developed hypoglycemia, following discontinuation of tube feeds. IV fluids of D10 initiated yesterday with current blood sugars in the l ow 100s. Outputs remain lower; less NG and ostomy output. Small rectal bowel movement today. Maintained on Zosyn Afebrile, normal WBC. Repeat urine culture reporting no growth after 18 hours. Hemoglobin 8.6, platelets 177. Chloride 112, BUN 16, creatinine 0.92. Objective - Vital Signs Vital signs: Vital Signs Temp 97.9 F 05/09/21 08:00 Pulse 81 05/09/21 11:00 Resp 7 L 05/09/21 11:00 BP 111/52 05/09/21 11:00 Pulse Ox 95 05/09/21 11:00 Intake & Output 05/08/21 05/09/21 05/09/21 18:59 06:59 18:59 Intake Total 1350 650 250 Output Total 535 640 164 Balance 815 10 86 Weight 100.5 kg 100.5 kg Intake: IV 1300 650 250 0.9% NaCl with KCl 40 Meq 1200 100 /l 1,000 ml @ 100 mls/hr IV .Q10H [facility] Rx#: [id number] Dextrose 10% in Water 500 550 250 ml In Empty Bag 1 bag @ 50 mls/hr IV .Q10H [facility] Rx #:[id number] Piperacillin-Tazobactam 3 100 .375 gm In Sodium Chloride 0.9% 100 ml @ 25 mls/hr IVPB Q8HR [facility] Rx# :[id number] Tube Feeding 0 Other 50 Output: Gastric Drainage 100 Urine 535 530 164 Stool 10 Other: Voiding Method Indwelling Catheter Indwelling Catheter Indwelling Catheter - Exam - Exam General: sitting up in bed, alert, no acute distress. HEENT: PERRL. EOMI. conjunctivae normal. NG tube present. Neck: Supple, no JVD. Cardiac: Heart regular in rate and rhythm. No S3. No S4. No clicks, rubs. No murmur. Lungs: Clear breath sounds, no rhonchi, crackles, or wheezes,bilateral bases diminished. Abdomen: soft,distended, tender right lower quadrant, status post surgery,positi ve bowel sounds. jejunal tube with bilious drainage present. Midline Abdominal dressing clean dry and intact. Extremities: Significant Positive edema of all extremities, normal pulses. Wearing offloading boots. Skin: Warm and dry, Neurologic: Limited exam,follows simple commands occasionally, weak. - Labs CBC & Chem 7: 05/09/21 04:54 05/09/21 04:54 Labs: Abnormal Lab Results - Last 24 Hours (Table) 05/08/21 05/09/21 05/09/21 Range/Units 17:00 04:54 04:54 RBC 2.98 L (3.80-5.40) m/uL Hgb 8.6 L (11.4-16.0) gm/dL Hct 26.4 L (34.0-46.0) % RDW 19.5 H (11.5-15.5) % Chloride 112 H (98-107) mmol/L POC Glucose (mg/dL) 65 L (75-99) mg/dL Calcium 8.2 L (8.4-10.2) mg/dL 05/09/21 05/09/21 Range/Units 07:59 11:34 RBC (3.80-5.40) m/uL Hgb (11.4-16.0) gm/dL Hct (34.0-46.0) % RDW (11.5-15.5) % Chloride (98-107) mmol/L POC Glucose (mg/dL) 106 H 111 H (75-99) mg/dL Calcium (8.4-10.2) mg/dL Assessment and Plan Assessment: Displaced PEG tube with extravasation of contrast and free air, sigmoid volvulus, fecal impaction, status post exploratory laparotomy, sigmoid colectomy , creation of end colostomy and repair of gastrostomy, jejunal feeding tube placement. Acute hypoxic respiratory failure, status/ post mechanical ventilator-dependent Hypovolemic hypotension Acute renal failure, ATN ,secondary to the above and hydronephrosis Sepsis,multifactorial, including multiple comorbidities ,complicated acute UTI ,severe right-sided hydronephrosis with right stent removal this admission,and #1, not present on admission. Acute toxic, metabolic encephalopathy,brain CT reported no acute infarcts, chronic stable changes, in a patient with history of CVA, possibly secondary to lack of Sinemet, levels ordered, suspect severe parkinsonism,Neurology following. Acute UTI, enterococcus faecium, in a patient with history of recurrent UTIs, recent acute UTI with Enterobacter aerogenes, complicated with bilateral hydronephrosis Bilateral hydronephrosis,no change in the right-sided hydronephrosis. Right ureteral stent insertion 01/06/21, obstruction of UPJ-status post cystoscopy with right stent removed, unable to replace. Nephrostomy pending. 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 Hypothyroidism Bipolar disorder Obesity, BMI 36 Normocytic anemia Status post PICC line with initiation of TPN Small bowel ileus, possible's partial mechanical obstruction 05/07/21 No code, no CPR, no intubation Plan: Continue on current medication regime ,monitoring and symptomatic treatment. Per surgeon, tube feeds will be resumed at 10 MLS per hour 24 hours/Weaning of D10 IV accordingly. Maintain supportive care. PCP, Dr. Nelson to discuss with family palliative care. Strict aspiration precautions.IV antibiotics as per ID. ICU management as per contract serviceman. Prognosis guarded given multiple complex medical issues. The impression and plan of care has been dictated as directed. : I performed a history and examination of this patient, discussed the same with the dictator. I agree with the dictator's note ,documented as a scribe. Any additional findings or plans will be noted.
[2021-05-09 15:09] LABS: Glucose,Whole Blood 107 mg/dL (75-99)
--- NOTE | 2021-05-09 16:48 | PN ---
PROGRESS NOTE DATE OF SERVICE: 05/09/2021 REASON FOR FOLLOWUP: Intraabdominal infection. INTERVAL HISTORY: Patient remains to be afebrile. The patient is hemodynamically stable, not on pressor support. The patient remains to be lethargic and did respond to her name. No further history could be obtained. Did have high output from the NG as well as colostomy. PHYSICAL EXAMINATION: Blood pressure 125/64, pulse of 73. Temperature 97.7. She is 96% on 1 L nasal cannula. General description is an elderly female lying in bed in no distress. Respiratory system: Unlabored breathing, decreased breath sounds in the bases. No wheeze. Heart S1, S2. Regular rate and rhythm. Abdomen: Soft, no guarding. No rigidity. LABS: Hemoglobin 8.4, white count 7.0. BUN of 16, and creatinine 0.92. DIAGNOSTIC IMPRESSION AND PLAN: Patient with abdominal infection in this patient who did have a perforation gastric wall from the PEG tube as well as ischemic colitis from the volvulus status post laparotomy repair of the stomach and sigmoid colectomy. Patient on Zosyn. White count normal. Continue current antibiotics and monitor clinical course closely. Continue supportive care. MMODL / IJN: [id number] /
[2021-05-09 17:45] LABS: Glucose,Whole Blood 105 mg/dL (75-99)
[2021-05-09 23:57] LABS: Glucose,Whole Blood 116 mg/dL (75-99)
[2021-05-10] MEDS: INSULIN ASPART (NovoLOG) 100 UNIT/ML VIAL SQ SCH ×5 (00:27→20:57)
[2021-05-10] MEDS: PIPERACILLIN-TAZOBACTAM 3.375 GM in SODIUM CHLORIDE 0.9% 100 ML IVPB SCH ×4 (00:34→23:39)
[2021-05-10] MEDS: HEPARIN SODIUM,PORCINE/PF 5,000 UNIT/0.5 ML SYRINGE SQ SCH ×4 (00:34→22:17)
[2021-05-10] MEDS: HYDROmorphone 0.5 MG/0.5 ML SYRINGE IVP PRN ×3 (04:35→22:21)
[2021-05-10 06:13] LABS: Calcium 8.1 mg/dL (8.4-10.2); Potassium 3.6 mmol/L (3.5-5.1)
[2021-05-10 06:58] LABS: Anisocytosis Slight; Basophils # (A) 0.1 k/uL (0-0.2); Basophils % (A) 1 %; Eosinophils # (A) 0.1 k/uL (0-0.7); Eosinophils % (A) 2 %; HCT 23.2 % (34.0-46.0); HGB 7.2 gm/dL (11.4-16.0); Hypochromasia Moderate; Lymphocytes # (A) 0.9 k/uL (1.0-4.8); Lymphocytes % (A) 15 %; MCH 28.4 pg (25.0-35.0); MCHC 30.9 g/dL (31.0-37.0); MCV 91.9 fL (80.0-100.0); Mean Platelet Volume 8.6; Monocytes # (A) 0.3 k/uL (0-1.0); Monocytes % (A) 4 %; Neutrophils # (A) 4.4 k/uL (1.3-7.7); Neutrophils % (A) 75 %; Platelet Count 183 k/uL (150-450); RBC 2.52 m/uL (3.80-5.40); WBC 5.9 k/uL (3.8-10.6)
[2021-05-10] MEDS ORDERED: POTASSIUM BICARBONATE/CIT AC 20 MEQ TABLET.EFF NG-TUBE SCH (07:00)
[2021-05-10] MEDS: DEXTROSE 10% IN WATER 500 ML in EMPTY BAG 1 BAG IV SCH ×4 (08:43→22:48)
[2021-05-10] MEDS: CARBIDOPA-LEVODOPA 25-100 MG 1 EACH TAB PO SCH ×4 (08:43→22:25)
[2021-05-10] MEDS: PANTOPRAZOLE 40 MG/10 ML VIAL IV SCH (08:45)
[2021-05-10] MEDS: LEVOTHYROXINE IVP 100 MCG/5 ML VIAL IV SCH (08:45)
[2021-05-10] MEDS: FLUCONAZOLE 100 MG TAB PO SCH (08:45)
[2021-05-10] MEDS: NYSTATIN 100,000 UNIT/GM POWD 15 GM TOPICAL SCH (08:45)
[2021-05-10 12:42] LABS: Glucose,Whole Blood 94 mg/dL (75-99)
--- NOTE | 2021-05-10 13:08 | P.PN ---
Subjective Progress Note Date: 05/10/21 Resting comfortably in bed Objective - Vital Signs Vital signs: Vital Signs Temp 98.1 F 05/10/21 08:00 Pulse 83 05/10/21 12:00 Resp 17 05/10/21 12:00 BP 126/59 05/10/21 12:00 Pulse Ox 96 05/10/21 12:00 Intake & Output 05/09/21 05/10/21 05/10/21 18:59 06:59 18:59 Intake Total 930 570 230 Output Total 619 740 340 Balance 311 -170 -110 Weight 100.5 kg 99.5 kg 99.5 kg Intake: IV 650 370 80 Dextrose 10% in Water 500 650 370 80 ml In Empty Bag 1 bag @ 50 mls/hr IV .Q10H [facility] Rx #:[id number] Tube Feeding 70 110 90 Other 210 90 60 Output: Gastric Drainage 50 0 Urine 444 440 340 Stool 125 300 Other: Voiding Method Indwelling Catheter Indwelling Catheter Indwelling Catheter - Constitutional General appearance: Present: no acute distress - Gastrointestinal Gastrointestinal Comment(s): S/NT/ND ostomy with bile and stool in bag J tube in place - Labs CBC & Chem 7: 05/10/21 05:38 05/10/21 05:38 Labs: Abnormal Lab Results - Last 24 Hours (Table) 05/09/21 05/09/21 05/09/21 Range/Units 15:07 17:45 23:56 RBC (3.80-5.40) m/uL Hgb (11.4-16.0) gm/dL Hct (34.0-46.0) % MCHC (31.0-37.0) g/dL RDW (11.5-15.5) % Lymphocytes # (1.0-4.8) k/uL Chloride (98-107) mmol/L Glucose (74-99) mg/dL POC Glucose (mg/dL) 107 H 105 H 116 H (75-99) mg/dL Calcium (8.4-10.2) mg/dL 05/10/21 05/10/21 Range/Units 05:38 05:38 RBC 2.52 L (3.80-5.40) m/uL Hgb 7.2 L (11.4-16.0) gm/dL Hct 23.2 L (34.0-46.0) % MCHC 30.9 L (31.0-37.0) g/dL RDW 20.0 H (11.5-15.5) % Lymphocytes # 0.9 L (1.0-4.8) k/uL Chloride 110 H (98-107) mmol/L Glucose 101 H (74-99) mg/dL POC Glucose (mg/dL) (75-99) mg/dL Calcium 8.1 L (8.4-10.2) mg/dL Assessment and Plan Assessment: S/P Ex Lap resection of sigmoid colon with end colostomy, repair of gastrotomy from dislodged peg tube, and placement of feeding J tube Plan: Advance tube feeds to goal. NGT to LIS as there is still 200cc overnight of output
--- NOTE | 2021-05-10 13:13 | P.PN ---
Subjective Progress Note Date: 05/10/21 Principal diagnosis: Abdominal sepsis secondary to gastric perforation and displaced PEG tube with pneumoperitoneum, sigmoid volvulus and fecal impaction status post expiratory laparotomy and sigmoid colectomy day #10 This is a 75-year-old white female patient a resident of a local [facility], who was initially admitted to the hospital on 04/15/2021 when she was brought to the hospital per EMS with altered mentation, and vomiting. Patient was receiving Rocephin for a urinary tract infection at the nursing facility and patient is known to have a history of multiple recurrent urinary tract infections and history of right ureteral stent placement. Patient at baseline is a poor historian, related to previous history of CVA and patient has left-sided weakness and expressive aphasia. Other medical history significant for hyperlipidemia, hypertension, hypothyroidism, Parkinson's disease, anxiety, depression, degenerative arthritis. Most recent urine culture from February and March 2021 showed evidence of enterococcus with multiple resistances and she was placed on vancomycin in the emergency department. CT of the abdomen and pelvis on admission showed marked right hydronephrosis, and a small left hydronephrosis similar findings on the CT of the abdomen and pelvis from 03/18/2021. Urology is following and was planning on insertion of a nephrostomy. Neurological workup showed a brain CT with chronic appearing periventricular white matter of ischemic type, which was stable. EEG showed an abnormal EEG due to the background slowing of mild to moderate degree suggestive of generalized cerebral dysfunction as seen with toxic metabolic encephalopathy and diffuse structural brain abnormality. No evidence of epileptiform activity was seen. Neurology's impression was that the altered mental status was likely due to toxic metabolic encephalopathy. Patient continued to be nauseous and vomiting and was unable to take any oral medications or oral feedings. On 04/19/2021 patient underwent EGD and PEG tube placement by Dr. Dempsey. The EGD showed no abnormalities within the stomach and duodenum. However the patient continued to have intermittent nausea and vomiting, and tube feedings were on hold and the PEG tube was connected to dependent drainage. On 04/24/2021 patient underwent cystoscopy, right retrograde pyelogram and right ureteroscopy, right ureteral stent was removed, however attempts to replace it were unsuccessful, and nephrostomy tube insertion was planned. On 04/29/2021 patient developed worsening tenderness and distention of the abdomen, she continued to have nausea with vomiting, and her leukocytosis was worsening. CT of the abdomen and pelvis on 04/29/2021 showed extravasation of the contrast from the PEG tube, with a concern of dislodged PEG tube from the stomach with a small amount of air in the peritoneum. Also there was a large stool ball and markedly distended possibly volvulized sigmoid colon. Right nephrostomy procedure was placed on hold, and patient was taken to the operating room and underwent exploratory laparotomy which was converted to open procedure, sigmoid colectomy, and creation of end colostomy and repair of gastrostomy along with placement of jejunal feeding tube. Patient was admitted to the intensive care unit following her procedure earlier this morning at around 3:00 this morning intubated and on mechanical ventilator support. This morning she is on assist-control mode of ventilation with a rate of 14, tidal vital 300, FiO2 of 60% and PEEP of 5, this morning's blood gas showed a pO2 of 219, pCO2 42, pH of 7.47, this was done on 100% FiO2 and this was subsequently dropped to 60%. She is on lactated Ringer's at 50 ML per hour, Diprivan and is at 30 ML per hour, hemodynamically she is stable, not requiring any vasopressor support, she is in sinus mechanism, blood pressure is 100/55. Her chest x-ray today has been reviewed and not showing ET tube and OG tube in appropriate positions, no pneumothorax, the basilar atelectasis, low lung volumes. Breasts the blood work reveals white count of 8.2, hemoglobin is 10.8, platelet count is 216, INR is 1.2, sodium is 137, potassium is 3.4, chloride is 101, CO2 is 30, BUN is 24, creatinine is 1.14. Patient's urine output has been quite poor, and she has only produced 35 mL of urine overnight. Current antibiotic coverage includes Diflucan and Zosyn for evidence of enterococcus faecium in the urine, and Fani albicans in the urine culture on urine culture from 04/20/2021. ID service is following. On 05/01/2021 patient seen in follow-up in the intensive care unit. She remains sedated, and intubated on mechanical ventilator, she is currently on assist control mode of ventilation with a rate of 14, tidal volume 300, FiO2 of 40% and PEEP of 5. This morning his blood gases show pO2 of 93, pCO2 43, and pH of 7.48 and this was done on FiO2 of 50% and it has since been dropped to 40%. She is currently on Diprivan at 40 mics per kilo per minute, lactated Ringer's at 100 ML per hour, 0.9 was seen at 20 ML per hour. Levofed is at 2 mics per minute. Patient was started on TPN yesterday which is infusing at 30 ML per hour, patient's urine output has improved in the last 24 hours and responds to IV fl uids and one dose of Lasix was given yesterday in the afternoon. However she received significant amount of IV fluid boluses, and she is in positive net fluid balance of 4.3 L or last 24 hours. Patient has significant generalized edema. This morning's chest x-ray is pending, this morning's labs have been reviewed showing white blood cell count of 7.1, hemoglobin of 8.4, platelet count is 179, sodium is 136, the rest of the electrolytes are unremarkable, BUN is 28 creatinine is 1.14. She is currently in sinus mechanism with a rate of 89 BPM, no arrhythmias overnight, lung sounds are clear, abdomen is soft, did not incision is clean dry and intact, left upper quadrant colostomy and placed on a to produce small amount of liquid yellowish colored stool, right upper quadrant J-tube in place, and patient has not been initiated on not tube feedings yet. Overall hemodynamically she is stable, minimal amount of pressors, urine output is improving, renal profile is stable, FiO2 requirement is 40%, urology is following, and patient is being considered for nephrostomy tube however this has not been scheduled yet. We'll proceed with spontaneous awakening trial and a spontaneous breathing trial this morning On 05/02/2021 patient seen in follow-up in intensive care unit, she was successf ully weaned and next visit for mechanical ventilator yesterday on 05/01/2021. This morning she is resting in bed, she is lethargic, she does not open eyes to command, does not follow any commands, she is currently just on 2 L of oxygen with a pulse ox of 96%, does not appear to be in any respiratory distress, does withdraw from pain. She is currently on 0.9 normal saline at a rate of 50 ML per hour, TPN is at 30 ML per hour, still has a leave of fed infusing at 2 mics per minute. Patient appears to be quite generally fluid overloaded, with extensive edema involving her upper and lower extremities. Lung sounds are positive for minimal wheezes, no rhonchi. Today's chest x-ray reveals central venous congestion, and possibility of left pleural effusion. We'll cut back IV fluids to KVO. Remains on antibiotics in the form of Zosyn and Diflucan. She's been afebrile. Abdomen is soft, and her colostomy is putting out yellow semi- liquid stool. G-tube is in place, however tube feedings have not been started yet, patient has been on TPN. Apparently patient has also passed a bowel move ment per rectum. There are positive bowel sounds. Labs have been reviewed showing white blood cell count of 9.2, hemoglobin of 9.6, platelet count is 152, lites are within normal limits, B1 of 25 creatinine was 1.13, these were within normal limits. Urine output been in the order of 50-60 ML per hour. And patient has produced 2.1 L in urine output over last 24 hours, and she is visiting positive net fluid balance of 400 mL over last 24 hours. 19 2020, the patient is being seen in follow-up in the intensive care unit. As stated earlier, the patient's back to has been removed and the patient was given a J-tube and a colostomy. She continues to have an NG tube in place. Enteral feeding was started yesterday and she is currently receiving Jevity at the rate of 20 mL an hour with a goal of 55. At the same time, the patient was started on TPN which is running at 30 mL an hour . Jevity is being gradually advanced and the goal is to get rid of the TPN with the next 24-48 hours. Meanwhile, the colostomy site is functional. Surgical with that is dry clean and intact. Output from the NG is minimal at this point in time. She is quite debilitated. She is arousable. She is having extensive edema in all 4 extremities and she was given a dose of Lasix yesterday. She remains on a combination of Zosyn and Diflucan. She is afebrile for now. On her blood work, she has a white cell, 3.3 with a hemoglobin of 7.2 at which is lower compared to yesterday. Platelet count is up to 129 ,patient's current cardiac rhythm is sinus.clinically, the patient looks around. She doesn't communicate. She grunts and moans on and off and I think that part of her baseline.patient's creatinine remains stable. The patient was given a dose of Lasix yesterday and she responded quite a bit and she has been a significant negative fluid balance of at least 3 L over the past 24 hours. Patient is seen today 05/04/2021 in follow-up in the intensive care unit. Her status has been about the same overnight. She still maintaining good O2 saturations in the upper 90s on either of oxygen. She remains on TPN and lipids. Nasogastric tube remains in place. She has Jevity for nutritional supp ort through the J-tube. Currently at 40 ML's per hour. Goal is 55 mls per hour. Ostomy is functioning approximately 800 mL of liquid return in the past 12 hours. Urine output remains good at approximately 100 mL per hour. She's been afebrile. Hemodynamically stable. Remains on Zosyn and Diflucan. He mostly has garbled speech. Follow any meaningful commands. We believe this is her baseline. White count 4.1. Hemoglobin 7.3. Platelet count 143. Sodium 140. Potassium 3.0. Creatinine 1.07. X-ray continues to revealed chronic changes with patchy left basilar infiltrate/atelectasis. She remains in a negative balance. No significant change compared to previous. She remains on heparin for DVT prophylaxis. Patient was reevaluated today on 05/05/2021, patient remains in the ICU. Still on 1 L nasal cannula, O2 saturations 94%, patient is on TPN, and she is also on Jevity via J-tube which will be switched to vital AF today. Patient seems to be sleepy, but arousable, following very simple instructions like wiggling toes squeezing hands and sticking out tongue. Obviously she's comprehending what she is being controlled. Patient seems to be generally frail, and weak. Nasoga stric tube remains in place, and bilious drainage is noted from the nasogastric tube. Patient is receiving enteral eating via jejunostomy tube and she also receiving TPN. Her ostomy is functioning well, urine output is perfect. Patient is hemodynamically stable, remains on Zosyn and Diflucan. Speech remains garbled. CBC is relatively normal except for hemoglobin of 7.3, potassium is 3. Profile is relatively normal creatinine is 1.07 chest x-ray showed low lung volumes and basilar atelectasis no clear-cut evidence of pneumonia. Patient was reevaluated today on 05/06/2021, remains in the ICU on 1 L nasal cannula, she remains encephalopathic, she is on 1 L FiO2 with O2 sat showed 95%. IV fluid is at KVO. Patient is in sinus rhythm remains on enteral feeding via jejunostomy tube, she is on vital af at 45 ML per hour. Continues to have significant output from the nasogastric tube about 1.1 L and over 1800 mL from the ostomy. Lasix remains on hold since the patient has significant output on her own. And we will continue tube feeding. Considering her mental status and her overall clinical status is marginal, I plan to keep the patient in the ICU. Hemoglobin today is down to 6.7, and I have ordered a unit of packed RBCs that is pending. Potassium is low at 2.9 being corrected as per protocol. Reevaluated today on 05/07/2021, patient remains in the ICU, on 1 L nasal cannul a. IV fluids remains at KVO but I went ahead and increased it to 100 mL per hour since the patient is having significant output from the ostomy tube and she is having significant amount of drainage from the nasogastric tube. Still on enteral feeding via jejunostomy tube. Her nasogastric tube put out over 1500 mL in the last 24 hours and her colostomy put out over 700 mL overnight only. Hence I felt the need to increase her IV fluid. Patient remains sleepy and weak. She does wake up and follows very simple instructions like wiggling toes and squeezing hands only. Overall she remains relatively encephalopathic. CBC is relatively normal except for hemoglobin of 7.1. Patient did receive a unit of packed RBCs yesterday. She received a total of 2 units since admission On 05/08/2021 patient seen in follow-up in intensive care unit, she is lethargic, but arousable to voice, at times she moans, but unable to localize her pain, her verbal responses are difficult to understand. She appears to be in no acute respiratory distress, she is on 1 L of oxygen pulse ox is 96%, IV fluids 0.9 normal saline with 40 of potassium at 100 ML per hour, her tube feeds were placed on hold yesterday because of significant output from both ostomy and NG tubes. Acute abdominal series were completed showing distended small bowel with subcutaneous fluid levels, possible small bowel ileus partial mechanical obstruction not excluded. Gen. surgery is following, and recommended holding the tube feedings were 24 hours. NG tube remains to suction, and output in the last 24 hours has significantly decreased and is down to 100 ML, colostomy output was down to 325 and is more by Jaime in color. Patient is making adequate urine, and has produced 820 ML of urine in the last 24 hours, she remains on Diflucan and Zosyn for antibiotic coverage. Urine culture showed enterococcus, blood cultures have been negative. Today's labs have been reviewed, white blood cell count is 6.1, hemoglobin is 7.4, electrolytes and renal profile are unremarkable, BUN is 18 creatinine 0.9. Patient has been afebrile, blood pressure is been stable, not requiring any vasopressor support. Generally she is swollen, however we have been holding off on diuretics related to her poor nutritional status and to low albumin. Nephrology has been following in regards to right-sided hydronephrosis, and there is plans for any surgical intervention on neurology's part at this time. Reevaluated today on 05/09/2021, remains in the ICU, remains on 1 L nasal cannula, O2 sats is 95%. Patient had intermittent episodes of hypoglycemia yesterday mostly because her tube feeds to remain on hold. Hence I recommended starting the patient on D10 at 50 mL per hour and that seems to solve the problem. However if the patient is going to have prolonged holding of her tube feeding I may recommend that we go back on TPN. This will be decided upon by surgery today. Overall the patient remains about the same, remains encephalop athic. She is however awake, she follows simple instructions like wiggling toes and squeezing hands. She remains hemodynamically stable, she is on D10W, IV fluid at KVO otherwise. She continues to have significant output from colostomy, and she had less output from the nasogastric tube. Again her enteral feeding remains on hold as recommended by surgery may be restarted today and stop would have some the patient on TPN Reevaluated today on 05/10/2021, patient remains in the ICU, remains on D10 which is only at 10 mL per hour enteral feeding was restarted using the jejunostomy tube. Continues to have nasogastric tube, had 900 mL out over the last 24 hours. Continues to have significant output in her colostomy bag. Clinical status is overall about the same. Her sugars seem to be better controlled, and I plan to stop her D10 infusion. Patient remains encephalopathic, and no major oil changer the last 24 hours. CBC is relatively normal except for hemoglobin of 7.2 electrolytes are normal renal profile is normal. I plan to transfer the patient today out of the ICU to a regular medical floor. Objective - Vital Signs Vital signs: Vital Signs Temp 98.1 F 05/10/21 08:00 Pulse 83 05/10/21 12:00 Resp 17 05/10/21 12:00 BP 126/59 05/10/21 12:00 Pulse Ox 96 05/10/21 12:00 Intake & Output 05/09/21 05/10/21 05/10/21 18:59 06:59 18:59 Intake Total 930 570 230 Output Total 619 740 340 Balance 311 -170 -110 Weight 100.5 kg 99.5 kg 99.5 kg Intake: IV 650 370 80 Dextrose 10% in Water 500 650 370 80 ml In Empty Bag 1 bag @ 50 mls/hr IV .Q10H [facility] Rx #:[id number] Tube Feeding 70 110 90 Other 210 90 60 Output: Gastric Drainage 50 0 Urine 444 440 340 Stool 125 300 Other: Voiding Method Indwelling Catheter Indwelling Catheter Indwelling Catheter - Exam GENERAL EXAM: Revealed 75-year-old female, generally weak, about the same, mental status is unchanged HEAD: Normocephalic/atraumatic. EENT: PERRLA, EOMI, anicteric, no neck masses, nasogastric tube is intact , less draining over the last 24 hours CHEST: Symmetrical expansion. LUNGS: The mechanical chest expansion, diminished breath sounds at the bases no rhonchi and no wheezes. CVS: Normal S1 and S2, no S3 gallop. ABDOMEN: Soft, nontender. No hepatosplenomegaly, normal bowel sounds, no guarding or rigidity. Mid abdominal incision clean dry and intact, ostomy is functional. Jejunostomy tube is functional. Nasogastric tube is functional EXTREMITIES: Good Pulses bilaterally no clubbing or cyanosis. 2+ bipedal edema MUSCULOSKELETAL: Generalized weakness. Not fully assess mostly because of her mental status. Patient able to squeeze hands and wiggles toes SKIN: No rashes CENTRAL NERVOUS SYSTEM: arousable and follows simple instructions - Labs CBC & Chem 7: 05/10/21 05:38 05/10/21 05:38 Labs: Abnormal Lab Results - Last 24 Hours (Table) 05/09/21 05/09/21 05/09/21 Range/Units 15:07 17:45 23:56 RBC (3.80-5.40) m/uL Hgb (11.4-16.0) gm/dL Hct (34.0-46.0) % MCHC (31.0-37.0) g/dL RDW (11.5-15.5) % Lymphocytes # (1.0-4.8) k/uL Chloride (98-107) mmol/L Glucose (74-99) mg/dL POC Glucose (mg/dL) 107 H 105 H 116 H (75-99) mg/dL Calcium (8.4-10.2) mg/dL 05/10/21 05/10/21 Range/Units 05:38 05:38 RBC 2.52 L (3.80-5.40) m/uL Hgb 7.2 L (11.4-16.0) gm/dL Hct 23.2 L (34.0-46.0) % MCHC 30.9 L (31.0-37.0) g/dL RDW 20.0 H (11.5-15.5) % Lymphocytes # 0.9 L (1.0-4.8) k/uL Chloride 110 H (98-107) mmol/L Glucose 101 H (74-99) mg/dL POC Glucose (mg/dL) (75-99) mg/dL Calcium 8.1 L (8.4-10.2) mg/dL Assessment and Plan Assessment: Impression: Postoperative day #10 patient is status post expiratory laparotomy, sigmoid colectomy, creation of end colostomy and repair of gastrostomy along with placement of the jejunal feeding tube . This was all secondary to displacement of PEG tube Acute abdominal sepsis secondary to above with pneumoperitoneum and gastric perforation in addition to all of this patient had a urinary tract infection. History of hydronephrosis and placement of right ureteral stent in December with subsequent removal in April of 2021, and unsuccessful attempt to place another ureteral stent, patient may require nephrostomy tube placement Acute kidney injury with hydronephrosis and acute tubular necrosis recovering nicely. 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 Chronic kidney disease stage II Chronic diastolic congestive heart failure Benign essential hypertension Dyslipidemia Hypothyroidism Acute blood loss anemia, given 1 unit of packed RBCs yesterday. Intermittent hypoglycemia secondary to holding enteral feeding and TPN. Hence patient was placed on D10W Recommendation: Continue IV fluids. Discontinued D10. Increase enteral feeding gradually via jejunostomy tube. Continue to monitor daily electrolytes and CBC. Continue aspiration precautions. Continue antibiotics including Zosyn and Diflucan. Keep nasogastric tube in place until decided by surgery to have it removed Continue GI and DVT prophylaxis. Transfer to a regular medical floor today. Time with Patient: Less than 30
[2021-05-10 16:31] LABS: Glucose,Whole Blood 94 mg/dL (75-99)
[2021-05-10 20:33] LABS: Glucose,Whole Blood 99 mg/dL (75-99)
--- NOTE | 2021-05-11 00:48 | PN ---
PROGRESS NOTE DATE OF SERVICE: 05/10/2021. REASON FOR FOLLOWUP: Abdominal infection. INTERVAL HISTORY: The patient is afebrile. The patient is slightly more awake and alert today. She did respond to her name, however, did not answer any questions. Continue to have the NG. No vomiting. change reported by nursing staff. Patient will be transferred to the ICU. PHYSICAL EXAMINATION: Blood pressure 119/75, pulse of 90, temperature of 97.8. He is 96% on 1 L nasal cannula. General description: Is an elderly female lying in bed, in no distress RESPIRATORY SYSTEM: Unlabored breathing. Clear to auscultation anteriorly. HEART: S1, S2. Regular rate. ABDOMEN: Soft, no rigidity. LABS: Hemoglobin 7.1, white count of 5.9, BUN of 12, creatinine 0.90. DIAGNOSTIC IMPRESSION AND PLAN: Patient with abdominal infection from perforated stomach from the PEG tube and has ischemic colitis: Status post laparotomy and repair of the perforation of sigmoid colon. The patient is on Zosyn and Diflucan, to continue. Will monitor clinical course closely. Continue supportive care. MMODL / IJN: [id number] /
[2021-05-11] MEDS: PIPERACILLIN-TAZOBACTAM 3.375 GM in SODIUM CHLORIDE 0.9% 100 ML IVPB SCH ×2 (09:47→16:32)
[2021-05-11] MEDS: PANTOPRAZOLE 40 MG/10 ML VIAL IV SCH (09:48)
[2021-05-11] MEDS: HEPARIN SODIUM,PORCINE/PF 5,000 UNIT/0.5 ML SYRINGE SQ SCH ×2 (09:48→16:32)
[2021-05-11] MEDS: NYSTATIN 100,000 UNIT/GM POWD 15 GM TOPICAL SCH (09:49)
[2021-05-11] MEDS: FLUCONAZOLE 100 MG TAB PO SCH (09:49)
[2021-05-11] MEDS: CARBIDOPA-LEVODOPA 25-100 MG 1 EACH TAB PO SCH ×4 (09:49→20:03)
[2021-05-11] MEDS: DEXTROSE 10% IN WATER 500 ML in EMPTY BAG 1 BAG IV SCH ×2 (09:50→16:32)
[2021-05-11] MEDS: LEVOTHYROXINE IVP 100 MCG/5 ML VIAL IV SCH (09:57)
[2021-05-11] MEDS: HYDROmorphone 0.5 MG/0.5 ML SYRINGE IVP PRN ×2 (10:16→14:12)
--- NOTE | 2021-05-11 10:26 | P.PN ---
Subjective Progress Note Date: 05/11/21 Principal diagnosis: Altered mental status 75-year-old female patient currently resides in [facility] presented emergency room with mental status changes and has been compatible over the past several days is also not had episode of vomiting. 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 Jeff muñoz is also noted to have a former nicotine dependence. 04/19/2021 Currently patient sitting up in bed at this time, alert, but rarely answering questions. Occasionally she will answer questions by shaking her head yes or no. Patient denied chest pain or pressure, shortness of breath or diffic ulty breathing. She doesn't complain of generalized abdominal pain and has refused all oral medications since admission. Patient was noted be hypertensive IV antihypertensives ordered on a when necessary basis. Most recent set of vitals 98.3 oral temperature, pulse rate of 82, respiratory of 18, patient is 96% on room air with a blood pressure of 183/69 (IV hydralazine ordered for this pressure). Most recent lab work WBC is 10.2, hemoglobin 8.4, hematocrit 25.8, platelet count 248. Chemistry reveals a sodium 140, potassium 3.5, albumin of 6, creatinine 0.66, GFR of 87. Patient receiving hydration IV normal saline at 50 mL an hour. 04/20/2021 patient is postop day 1 for PEG tube placement and Appears more responsive today than yesterday. Patient is now getting her Sinemet and her or al medications through her PEG tube and we may initiate trickle tube feeding after 24 hours. Most recent set of vital signs temperature is 98.6 orally, heart rate is 72, respirations 20, maintaining oxygen saturation 96% on 2 L nasal cannula, blood pressure 163/83. Most recent set of blood work sodium 141, potassium 4.7, GINA 11, creatinine 0.81. Patient did deny chest pain or pressureOr difficulty breathing at this time and she does not appear to be in acute distress. 05/11/2021 patient recently transferred from ICU to floor and is currently resting in bed at this time with head of bed at 35, NG tube placed through the left nare. Patient appears more alert and aware of surroundings at this time. She is able answer simple questions with yes or no and was able to answer that she is at [facility]. She denies difficulty breathing and suggest within asked if she feels uncomfortable. Vital signs are stable with a temperature of 97.6, pulse rate of 85, respiratory of 18 maintaining oxygen saturations of 98% on 2 L nasal cannula, she has a blood pressure of 124/74. Most recent lab work reveals a hemogram 7.2, hematocrit 22.2, platelet count 183. Chemistry reveals a sodium 139, potassium 3.6, BUN 12, creatinine of 0.9, glucose of 101. Patient is currently on tube feeding at 20 mL an hour through her J-tube and will be advanced to 30 mL later today with the goal of 35 mL per dietary recommendations. Objective - Vital Signs Vital signs: Vital Signs Temp 97.6 F 05/11/21 06:52 Pulse 85 05/11/21 07:21 Resp 18 05/11/21 07:21 BP 128/74 05/11/21 07:21 Pulse Ox 98 05/11/21 07:21 Intake & Output 05/10/21 05/11/21 05/11/21 18:59 06:59 18:59 Intake Total 260 1200 Output Total 1640 1000 200 Balance -1380 200 -200 Weight 99.5 kg Intake: IV 80 500 Dextrose 10% in Water 500 80 500 ml In Empty Bag 1 bag @ 50 mls/hr IV .Q10H [facility]ERO Rx #:[id number] Intake, IV Titration 700 Amount Dextrose 10% in Water 500 500 ml In Empty Bag 1 bag @ 50 mls/hr IV .Q10H [facility] Rx #:[id number] Piperacillin-Tazobactam 3 200 .375 gm In Sodium Chloride 0.9% 100 ml @ 25 mls/hr IVPB Q8HR [facility] Rx# :[id number] Tube Feeding 120 Other 60 Output: Gastric Drainage 150 Urine 1190 300 Stool 300 700 200 Other: Voiding Method Indwelling Catheter Indwelling Catheter - Exam GENERAL: Well-nourished and in no acute distress. Patient able to communicate needs HEAD: Atraumatic, normocephalic. EYES: Pupils equal round and reactive to light, extraocular movements intact, sclera anicteric, conjunctiva are normal. ENT:nares patent, oropharynx clear without exudates. Moist mucous membranes. NG tube in place with little to no drainage NECK: Normal range of motion, supple without lymphadenopathy or JVD, no thyromegaly LUNGS: Breath sounds diminished, clear to auscultation bilaterally and equal. No wheezes rales or rhonchi. HEART: Regular rate and rhythm without murmurs, rubs or gallops.S1S2 Normal ABDOMEN: Soft, nontender, normoactive bowel sounds. No guarding, no rebound. No masses appreciated. Nasogastric tube displaced and was confirmed with x-ray, J-tube appears to be functioning normally with tube feedings, abdominal incision is clean dry and intact, ostomy functioning EXTREMITIES: Normal range of motion, no pitting or edema. No clubbing or cyanosis. Waffle boots in place, +2 pedal edema ., +2 edema noted bilateral hands NEUROLOGICAL: Cranial nerves II through XII grossly intact. Patient able to squeeze hands, wiggle toes, and answer yes to place and name. Patient history of CVA with being aphasic. He should follow simple commands PSYCH: Normal mood, normal affect. SKIN: Warm, Dry, normal turgor, no rashes or lesions noted. - Labs CBC & Chem 7: 05/10/21 05:38 05/10/21 05:38 Assessment and Plan Assessment: 1. Continue current medication regimen 2. Advanced tube feed towards goal of 35 mL an hour 3. Abdominal x-ray to assess NG tube placement 4. Continue on Zosyn and fluconazole 5. Protonix PPI protection 6. Maintain Dilaudid for pain management 7. Subcu heparin (1) Hypertension Current Visit: Yes Status: Acute Code(s): I10 - ESSENTIAL (PRIMARY) HYPERTENSION SNOMED Code(s): 75057843 (2) Encephalopathy Current Visit: Yes Status: Acute Code(s): G93.40 - ENCEPHALOPATHY, UNSPECIFIED SNOMED Code(s): 00772304 (3) Hydronephrosis Current Visit: Yes Status: Acute Code(s): N13.30 - UNSPECIFIED HYDRONEPHROSIS SNOMED Code(s): 81363260 (4) UTI (lower urinary tract infection) Current Visit: Yes Status: Acute Code(s): N39.0 - URINARY TRACT INFECTION, SITE NOT SPECIFIED SNOMED Code(s): 4374226 (5) Abdominal pain Current Visit: No Status: Acute Code(s): R10.9 - UNSPECIFIED ABDOMINAL PAIN SNOMED Code(s): 88604288 (6) Anxiety and depression Current Visit: No Status: Acute Code(s): F41.9 - ANXIETY DISORDER, UNSPECIFIED; F32.9 - MAJOR DEPRESSIVE DISORDER, SINGLE EPISODE, UNSPECIFIED SNOMED Code(s): 650964843 (7) Bipolar 1 disorder Current Visit: No Status: Acute Code(s): F31.9 - BIPOLAR DISORDER, UNSPECIFIED SNOMED Code(s): 617309338 (8) Congestive heart failure Current Visit: No Status: Acute Code(s): I50.9 - HEART FAILURE, UNSPECIFIED SNOMED Code(s): 40846262 (9) Debility Current Visit: No Status: Acute Code(s): R53.81 - OTHER MALAISE SNOMED Code(s): 80390842 (10) Essential (primary) hypertension Current Visit: No Status: Acute Code(s): I10 - ESSENTIAL (PRIMARY) HYPERTENSION SNOMED Code(s): 71849325 (11) History of CVA (cerebrovascular accident) Current Visit: No Status: Acute Code(s): Z86.73 - PRSNL HX OF TIA (TIA), AND CEREB INFRC W/O RESID DEFICITS SNOMED Code(s): 738897979 (12) History of hypothyroidism Current Visit: No Status: Acute Code(s): Z86.39 - PERSONAL HISTORY OF ENDO, NUTRITIONAL AND METABOLIC DISEASE SNOMED Code(s): 419666741 (13) Hydronephrosis Current Visit: No Status: Acute Code(s): N13.30 - UNSPECIFIED HYDRONEPHROSIS SNOMED Code(s): 66647315 (14) Nausea and vomiting Current Visit: No Status: Acute Code(s): R11.2 - NAUSEA WITH VOMITING, UNSPECIFIED SNOMED Code(s): 79470285 (15) Obesity Current Visit: No Status: Acute Code(s): E66.9 - OBESITY, UNSPECIFIED SNOMED Code(s): 558120468 (16) Parkinson disease Current Visit: No Status: Acute Code(s): G20 - PARKINSON'S DISEASE SNOMED Code(s): 04803950 (17) Pure hypercholesterolemia Current Visit: No Status: Acute Code(s): E78.00 - PURE HYPERCHOLESTEROLEMIA, UNSPECIFIED SNOMED Code(s): 551004826 Plan: Continue current medication regimen Maintain strict aspiration cautions head of bed greater than 30 to 35 Subcu heparin for DVT prophylaxis Protonix for PPI coverage IV antibiotics of Zosyn and fluconazole Dilaudid 4 pain management Abdominal x-ray for NG tube placement We will order lab work for today and tomorrow We'll continue to follow labs and vitals and treat accordingly We will continue to follow closely and reevaluate patient again tomorrow Time with Patient: Greater than 30
--- NOTE | 2021-05-11 10:35 | XR ---
EXAMINATION TYPE: XR chest 1V portable DATE OF EXAM: 05/11/2021 HISTORY: NG tube placement COMPARISON: None. TECHNIQUE: Single view of the chest is submitted. FINDINGS: NG tube is within the mid esophagus and should be advanced. Demonstrated are scattered senescent parenchymal change. There is no evidence for focal infiltrate. The heart is stable. Hilar and mediastinal structures are within normal limits. Degenerative changes are seen of the dorsal spine. IMPRESSION: 1. Chronic changes without evidence for acute pulmonary disease.
--- NOTE | 2021-05-11 10:35 | XR ---
EXAMINATION TYPE: XR chest 1V portable DATE OF EXAM: 05/11/2021 HISTORY: Shortness of breath. NG tube placement COMPARISON: Same day TECHNIQUE: Single view of the chest is submitted. FINDINGS: NG tube is seen coiled in the stomach. Subclavian left-sided central venous line in place. Demonstrated are scattered senescent parenchymal change. There is no evidence for focal infiltrate. The heart is stable. Hilar and mediastinal structures are within normal limits. Degenerative changes are seen of the dorsal spine. IMPRESSION: 1. Chronic changes without evidence for acute pulmonary disease.
--- NOTE | 2021-05-11 10:36 | XR ---
EXAMINATION TYPE: XR chest 1V portable DATE OF EXAM: 05/11/2021 HISTORY: Shortness of breath. NG tube COMPARISON: 05/11/2021 TECHNIQUE: Single view of the chest is submitted. FINDINGS: Demonstrated are scattered senescent parenchymal change. NG tube is coiled within the stomach. PICC l ine is in place. There is no evidence for focal infiltrate. The heart is stable. Hilar and mediastinal structures are within normal limits. Degenerative changes are seen of the dorsal spine. IMPRESSION: 1. Chronic changes without evidence for acute pulmonary disease.
[2021-05-11 11:05] LABS: Anisocytosis Slight; Basophils # (A) 0.1 k/uL (0-0.2); Basophils % (A) 1 %; Eosinophils # (A) 0.1 k/uL (0-0.7); Eosinophils % (A) 1 %; HCT 29.5 % (34.0-46.0); Hypochromasia Moderate; Lymphocytes # (A) 0.8 k/uL (1.0-4.8); Lymphocytes % (A) 10 %; MCH 27.8 pg (25.0-35.0); MCHC 30.5 g/dL (31.0-37.0); MCV 91.3 fL (80.0-100.0); Mean Platelet Volume 7.8; Monocytes # (A) 0.3 k/uL (0-1.0); Monocytes % (A) 4 %; Neutrophils # (A) 6.7 k/uL (1.3-7.7); Neutrophils % (A) 83 %; Platelet Count 236 k/uL (150-450); RBC 3.23 m/uL (3.80-5.40); RDW 19.7 % (11.5-15.5); WBC 8.2 k/uL (3.8-10.6)
[2021-05-11 11:18] LABS: ALT <6 U/L (4-34); AST 27 U/L (14-36); African American GFR (CKD) 77 (>60 ml/min/1.73 sqM); Albumin 2.1 g/dL (3.5-5.0); Albumin/Globulin Ratio 0.7; Alkaline Phosphatase 169 U/L (38-126); Anion Gap 7 mmol/L; Blood Urea Nitrogen 10 mg/dL (7-17); Calcium 8.1 mg/dL (8.4-10.2); Carbon Dioxide 24 mmol/L (22-30); Chloride 108 mmol/L (98-107); Globulin 3.1 g/dL; Glucose 110 mg/dL (74-99); Non-African American GFR(CKD) 67 (>60 ml/min/1.73 sqM); Potassium 3.7 mmol/L (3.5-5.1); Sodium 139 mmol/L (137-145); Total Bilirubin 0.2 mg/dL (0.2-1.3); Total Protein 5.2 g/dL (6.3-8.2)
[2021-05-11 11:22] LABS: Glucose,Whole Blood 101 mg/dL (75-99)
[2021-05-11] MEDS: INSULIN ASPART (NovoLOG) 100 UNIT/ML VIAL SQ SCH ×2 (11:52→16:59)
--- NOTE | 2021-05-11 14:11 | P.PN ---
Subjective Progress Note Date: 05/11/21 Patient is doing well today, transferred from ICU to floor. Minimal output from NGT. Objective - Vital Signs Vital signs: Vital Signs Temp 98.4 F 05/11/21 13:45 Pulse 88 05/11/21 13:45 Resp 12 05/11/21 13:45 BP 124/74 05/11/21 13:45 Pulse Ox 98 05/11/21 13:45 Intake & Output 05/10/21 05/11/21 05/11/21 18:59 06:59 18:59 Intake Total 260 1200 Output Total 1640 1000 250 Balance -1380 200 -250 Weight 99.5 kg Intake: IV 80 500 Dextrose 10% in Water 500 80 500 ml In Empty Bag 1 bag @ 50 mls/hr IV .Q10H [facility] Rx #:[id number] Intake, IV Titration 700 Amount Dextrose 10% in Water 500 500 ml In Empty Bag 1 bag @ 50 mls/hr IV .Q10H [facility] Rx #:[id number] Piperacillin-Tazobactam 3 200 .375 gm In Sodium Chloride 0.9% 100 ml @ 25 mls/hr IVPB Q8HR [facility] Rx# :[id number] Tube Feeding 120 Other 60 Output: Gastric Drainage 150 50 Urine 1190 300 Stool 300 700 200 Other: Voiding Method Indwelling Catheter Indwelling Catheter Indwelling Catheter - Constitutional General appearance: Present: cooperative - Cardiovascular Rhythm: regular - Gastrointestinal Gastrointestinal Comment(s): s/nt/nd incision CDI ostomy pink and patent with bilious stool in bag - Psychiatric Psychiatric: Present: A&O x's 3 - Labs CBC & Chem 7: 05/11/21 10:38 05/11/21 10:38 Labs: Abnormal Lab Results - Last 24 Hours (Table) 05/11/21 05/11/21 05/11/21 Range/Units 10:38 10:38 11:21 RBC 3.23 L (3.80-5.40) m/uL Hgb 9.0 L D (11.4-16.0) gm/dL Hct 29.5 L (34.0-46.0) % MCHC 30.5 L (31.0-37.0) g/dL RDW 19.7 H (11.5-15.5) % Lymphocytes # 0.8 L (1.0-4.8) k/uL Chloride 108 H (98-107) mmol/L Glucose 110 H (74-99) mg/dL POC Glucose (mg/dL) 101 H (75-99) mg/dL Calcium 8.1 L (8.4-10.2) mg/dL Alkaline Phosphatase 169 H (38-126) U/L Total Protein 5.2 L (6.3-8.2) g/dL Albumin 2.1 L (3.5-5.0) g/dL Assessment and Plan Assessment: S/P Ex Lap resection of sigmoid colon with end colostomy, repair of gastrotomy from dislodged peg tube, and placement of feeding J tube Plan: NG tube was advanced per nursing despite direct order both written and verbal that was given not to manipulate without the surgeon's consent. As a result the NG tube was advanced to find coiled in stomach which is of concern given the gastrotomy repair. There has been minimal output from NG tube and patient having bowel function at this time decision was made to DC NG tube. Continue tube feeds as tolerated and advance to goal per protocol Keep patient up in bed and had a bed at 30-35 to prevent aspiration.
[2021-05-11 16:41] LABS: Glucose,Whole Blood 102 mg/dL (75-99)
--- NOTE | 2021-05-11 23:39 | PN ---
PROGRESS NOTE DATE OF SERVICE: 05/11/2021 REASON FOR FOLLOWUP: Intraabdominal infection. INTERVAL HISTORY: The patient is afebrile. The patient has been transferred to the ICU. Patient is slightly more awake and alert today. Her NG has been discontinued. Oral intake remains to be poor. The patient did not answer any questions as far as abdominal pain or vomiting. PHYSICAL EXAMINATION: Blood pressure 132/70 with a pulse of 87, temperature 97.6. She is 97% on 2 L nasal cannula. General description is an elderly female lying in bed in no distress. Respiratory system: Unlabored breathing, decreased breath sounds in the base, with no wheeze. Heart S1, S2. Regular rate and rhythm. Abdomen: Soft, no tenderness. LABS: Hemoglobin is 9.1, white count 8.2, BUN of 10, creatinine 0.86. 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 The patient has received adequate antibiotic therapy and Zosyn can be safely discontinued on discharge. Continue supportive care. MMODL / IJN: [id number] /
[2021-05-11 23:51] LABS: Glucose,Whole Blood 108 mg/dL (75-99)
[2021-05-12] MEDS: INSULIN ASPART (NovoLOG) 100 UNIT/ML VIAL SQ SCH ×4 (00:04→17:55)
[2021-05-12] MEDS: PIPERACILLIN-TAZOBACTAM 3.375 GM in SODIUM CHLORIDE 0.9% 100 ML IVPB SCH ×3 (00:06→17:55)
[2021-05-12] MEDS: HEPARIN SODIUM,PORCINE/PF 5,000 UNIT/0.5 ML SYRINGE SQ SCH ×3 (00:07→17:55)
[2021-05-12] MEDS: DEXTROSE 10% IN WATER 500 ML in EMPTY BAG 1 BAG IV SCH ×2 (00:26→11:14)
[2021-05-12 05:41] LABS: Glucose,Whole Blood 109 mg/dL (75-99)
[2021-05-12] MEDS: LEVOTHYROXINE IVP 100 MCG/5 ML VIAL IV SCH (08:19)
[2021-05-12] MEDS: PANTOPRAZOLE 40 MG/10 ML VIAL IV SCH (08:23)
[2021-05-12] MEDS: NYSTATIN 100,000 UNIT/GM POWD 15 GM TOPICAL SCH (08:25)
[2021-05-12] MEDS: CARBIDOPA-LEVODOPA 25-100 MG 1 EACH TAB PO SCH ×4 (08:45→20:11)
[2021-05-12] MEDS: FLUCONAZOLE 100 MG TAB PO SCH (08:45)
[2021-05-12 11:37] LABS: Glucose,Whole Blood 108 mg/dL (75-99)
[2021-05-12] MEDS: HYDROmorphone 0.5 MG/0.5 ML SYRINGE IVP PRN ×2 (11:47→17:04)
[2021-05-12 11:51] LABS: ALT <8 U/L (8-44); AST 37 U/L (13-35); African American GFR (CKD) 83.6 (60.0-200.0); Albumin/Globulin Ratio 0.83 (1.60-3.17); Alkaline Phosphatase 126 U/L (41-126); Calcium 6.9 mg/dL (8.7-10.3); Carbon Dioxide 22.5 mmol/L (21.6-31.8); Chloride 110 mmol/L (96-109); Globulin 2.3 g/dL (1.6-3.3); Glucose 100 mg/dL (70-110); Non-African American GFR(CKD) 72.1 (60.0-200.0); Potassium 4.1 mmol/L (3.5-5.5); Sodium 140 mmol/L (135-145); Total Bilirubin 0.1 mg/dL (0.2-1.2); Total Protein 4.2 g/dL (6.2-8.2)
--- NOTE | 2021-05-12 14:54 | P.PN ---
Subjective Progress Note Date: 05/12/21 Doing well tolerating tube feeds Objective - Vital Signs Vital signs: Vital Signs Temp 98.6 F 05/12/21 14:00 Pulse 81 05/12/21 14:00 Resp 21 05/12/21 14:00 BP 150/81 05/12/21 14:00 Pulse Ox 98 05/12/21 14:00 Intake & Output 05/11/21 05/12/21 05/12/21 18:59 06:59 18:59 Output Total 750 850 Balance -750 -850 Weight 97.5 kg Output: Gastric Drainage 50 Urine 250 500 Stool 450 350 Other: Voiding Method Indwelling Catheter Indwelling Catheter Indwelling Catheter - Constitutional General appearance: Present: no acute distress - Cardiovascular Rhythm: regular - Gastrointestinal Gastrointestinal Comment(s): S/NT/ND Incisions CDI Ostomy pink and patent with stool in bag - Labs CBC & Chem 7: 05/11/21 10:38 05/12/21 06:18 Labs: Abnormal Lab Results - Last 24 Hours (Table) 05/11/21 05/11/21 05/12/21 Range/Units 16:40 23:46 05:38 Chloride (96-109) mmol/L BUN (9.0-27.0) mg/dL BUN/Creatinine Ratio (12.00-20.00) Ratio POC Glucose (mg/dL) 102 H 108 H 109 H (75-99) mg/dL Calcium (8.7-10.3) mg/dL Total Bilirubin (0.2-1.2) mg/dL AST (13-35) U/L ALT (8-44) U/L Total Protein (6.2-8.2) g/dL Albumin (3.80-4.90) g/dL Albumin/Globulin Ratio (1.60-3.17) g/dL 05/12/21 05/12/21 Range/Units 06:18 11:36 Chloride 110 H (96-109) mmol/L BUN 8.0 L (9.0-27.0) mg/dL BUN/Creatinine Ratio 10.00 L (12.00-20.00) Ratio POC Glucose (mg/dL) 108 H (75-99) mg/dL Calcium 6.9 L (8.7-10.3) mg/dL Total Bilirubin 0.1 L (0.2-1.2) mg/dL AST 37 H (13-35) U/L ALT <8 L (8-44) U/L Total Protein 4.2 L (6.2-8.2) g/dL Albumin 1.90 L (3.80-4.90) g/dL Albumin/Globulin Ratio 0.83 L (1.60-3.17) g/dL Assessment and Plan Assessment: S/P Ex Lap resection of sigmoid colon with end colostomy, repair of gastrotomy from dislodged peg tube, and placement of feeding J tube Plan: Continue tube feeds as tolerated Keep patient up in bed and had a bed at 30-35 to prevent aspiration.
--- NOTE | 2021-05-12 16:52 | P.PN ---
Subjective Progress Note Date: 05/12/21 Principal diagnosis: Altered mental status 75-year-old female patient currently resides in [facility] presented emergency room with mental status changes and has been compatible over the past several days is also not had episode of vomiting. 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 Jeff muñoz is also noted to have a former nicotine dependence. 04/19/2021 Currently patient sitting up in bed at this time, alert, but rarely answering questions. Occasionally she will answer questions by shaking her head yes or no. Patient denied chest pain or pressure, shortness of breath or diffic ulty breathing. She doesn't complain of generalized abdominal pain and has refused all oral medications since admission. Patient was noted be hypertensive IV antihypertensives ordered on a when necessary basis. Most recent set of vitals 98.3 oral temperature, pulse rate of 82, respiratory of 18, patient is 96% on room air with a blood pressure of 183/69 (IV hydralazine ordered for this pressure). Most recent lab work WBC is 10.2, hemoglobin 8.4, hematocrit 25.8, platelet count 248. Chemistry reveals a sodium 140, potassium 3.5, albumin of 6, creatinine 0.66, GFR of 87. Patient receiving hydration IV normal saline at 50 mL an hour. 04/20/2021 patient is postop day 1 for PEG tube placement and Appears more responsive today than yesterday. Patient is now getting her Sinemet and her or al medications through her PEG tube and we may initiate trickle tube feeding after 24 hours. Most recent set of vital signs temperature is 98.6 orally, heart rate is 72, respirations 20, maintaining oxygen saturation 96% on 2 L nasal cannula, blood pressure 163/83. Most recent set of blood work sodium 141, potassium 4.7, GINA 11, creatinine 0.81. Patient did deny chest pain or pressureOr difficulty breathing at this time and she does not appear to be in acute distress. 05/11/2021 patient recently transferred from ICU to floor and is currently resting in bed at this time with head of bed at 35, NG tube placed through the left nare. Patient appears more alert and aware of surroundings at this time. She is able answer simple questions with yes or no and was able to answer that she is at [facility]. She denies difficulty breathing and suggest within asked if she feels uncomfortable. Vital signs are stable with a temperature of 97.6, pulse rate of 85, respiratory of 18 maintaining oxygen saturations of 98% on 2 L nasal cannula, she has a blood pressure of 124/74. Most recent lab work reveals a hemogram 7.2, hematocrit 22.2, platelet count 183. Chemistry reveals a sodium 139, potassium 3.6, BUN 12, creatinine of 0.9, glucose of 101. Patient is currently on tube feeding at 20 mL an hour through her J-tube and will be advanced to 30 mL later today with the goal of 35 mL per dietary recommendations. 05/12/2021 patient resting comfortably in bed at this time and was sleeping when I entered the room. Patient will to verbal stimuli and followed simple commands but will also toes and bilateral squeezing of hand. Patient is more sleepy today than yesterday and only answered a couple questions where she denied pain or difficulty breathing. Patient's that is at 30 she is in 2 L nasal cannula with tube feeding infusing into her J-tube and appears to be tolerating tube feeds without issue. NG tube that was present yesterday has been DC'd. Ostomy stoma is pink and appears to be patent with stool in bag. Most recent set of vitals shows that she is afebrile with temperature of 98.6 orally, pulse rate of 81, respiratory rate of 21, maintaining oxygen saturations 98% with 2 L nasal cannula, blood pressure 150/81. Today's chem panel reveals potassium of 4.1, BUN of 8, creatinine of 0.8, glucose of 100, AST of 37, and ELT less than 8, total protein of 4.2, albumin of 1.9. Objective - Vital Signs Vital signs: Vital Signs Temp 98.6 F 05/12/21 14:00 Pulse 81 05/12/21 14:00 Resp 21 05/12/21 14:00 BP 150/81 05/12/21 14:00 Pulse Ox 98 05/12/21 14:00 Intake & Output 05/11/21 05/12/21 05/12/21 18:59 06:59 18:59 Intake Total 250 Output Total 362 714 5963 Balance -750 -850 -950 Weight 97.5 kg Intake: IV 250 Dextrose 10% in Water 500 250 ml In Empty Bag 1 bag @ 50 mls/hr IV .Q10H [facility] Rx #:[id number] Output: Gastric Drainage 50 Urine 938 985 1642 Stool 450 350 Other: Voiding Method Indwelling Catheter Indwelling Catheter Indwelling Catheter - Exam GENERAL: Well-nourished and in no acute distress. Although aphasic, patient able to communicate needs HEAD: Atraumatic, normocephalic. EYES: Pupils equal round and reactive to light, extraocular movements intact, sclera anicteric, conjunctiva are normal. ENT:nares patent, oropharynx clear without exudates. Moist mucous membranes. NECK: Normal range of motion, supple without lymphadenopathy or JVD, no thyromegaly LUNGS: Breath sounds diminished, clear to auscultation bilaterally and equal. No wheezes rales or rhonchi. HEART: Regular rate and rhythm without murmurs, rubs or gallops.S1S2 Normal ABDOMEN: Soft, nontender, normoactive bowel sounds. No guarding, no rebound. No masses appreciated. J-tube appears to be functioning normally with tube feedings, abdominal incision is clean dry and intact, ostomy functioning EXTREMITIES:. No clubbing or cyanosis. Waffle boots in place, +2 pedal edema ., +2 edema noted bilateral hands NEUROLOGICAL: Cranial nerves II through XII grossly intact. Patient able to squeeze hands, wiggle toes, and answer no to pain or difficulty breathing. Patient history of CVA with aphasia, follow simple commands PSYCH: Normal mood, sleeping at this time. SKIN: Warm, Dry, normal turgor, no rashes or lesions noted. - Labs CBC & Chem 7: 05/11/21 10:38 05/12/21 06:18 Labs: Abnormal Lab Results - Last 24 Hours (Table) 05/11/21 05/11/21 05/12/21 Range/Units 16:40 23:46 05:38 Chloride (96-109) mmol/L BUN (9.0-27.0) mg/dL BUN/Creatinine Ratio (12.00-20.00) Ratio POC Glucose (mg/dL) 102 H 108 H 109 H (75-99) mg/dL Calcium (8.7-10.3) mg/dL Total Bilirubin (0.2-1.2) mg/dL AST (13-35) U/L ALT (8-44) U/L Total Protein (6.2-8.2) g/dL Albumin (3.80-4.90) g/dL Albumin/Globulin Ratio (1.60-3.17) g/dL 05/12/21 05/12/21 Range/Units 06:18 11:36 Chloride 110 H (96-109) mmol/L BUN 8.0 L (9.0-27.0) mg/dL BUN/Creatinine Ratio 10.00 L (12.00-20.00) Ratio POC Glucose (mg/dL) 108 H (75-99) mg/dL Calcium 6.9 L (8.7-10.3) mg/dL Total Bilirubin 0.1 L (0.2-1.2) mg/dL AST 37 H (13-35) U/L ALT <8 L (8-44) U/L Total Protein 4.2 L (6.2-8.2) g/dL Albumin 1.90 L (3.80-4.90) g/dL Albumin/Globulin Ratio 0.83 L (1.60-3.17) g/dL Assessment and Plan (1) Hypertension Current Visit: Yes Status: Acute Code(s): I10 - ESSENTIAL (PRIMARY) HYPERTENSION SNOMED Code(s): 19326063 (2) Encephalopathy Current Visit: Yes Status: Acute Code(s): G93.40 - ENCEPHALOPATHY, UNSPECIFIED SNOMED Code(s): 36266208 (3) Hydronephrosis Current Visit: Yes Status: Acute Code(s): N13.30 - UNSPECIFIED HYDRONEPHROSIS SNOMED Code(s): 48512760 (4) UTI (lower urinary tract infection) Current Visit: Yes Status: Acute Code(s): N39.0 - URINARY TRACT INFECTION, SITE NOT SPECIFIED SNOMED Code(s): 6165930 (5) Abdominal pain Current Visit: No Status: Acute Code(s): R10.9 - UNSPECIFIED ABDOMINAL PAIN SNOMED Code(s): 46769092 (6) Anxiety and depression Current Visit: No Status: Acute Code(s): F41.9 - ANXIETY DISORDER, UNSPECIFIED; F32.9 - MAJOR DEPRESSIVE DISORDER, SINGLE EPISODE, UNSPECIFIED SNOMED Code(s): 250042996 (7) Bipolar 1 disorder Current Visit: No Status: Acute Code(s): F31.9 - BIPOLAR DISORDER, UNSPECIFIED SNOMED Code(s): 091921117 (8) Congestive heart failure Current Visit: No Status: Acute Code(s): I50.9 - HEART FAILURE, UNSPECIFIED SNOMED Code(s): 02526420 (9) Debility Current Visit: No Status: Acute Code(s): R53.81 - OTHER MALAISE SNOMED Code(s): 77202109 (10) Essential (primary) hypertension Current Visit: No Status: Acute Code(s): I10 - ESSENTIAL (PRIMARY) HYPERTENSION SNOMED Code(s): 83710115 (11) History of CVA (cerebrovascular accident) Current Visit: No Status: Acute Code(s): Z86.73 - PRSNL HX OF TIA (TIA), AND CEREB INFRC W/O RESID DEFICITS SNOMED Code(s): 421295769 (12) History of hypothyroidism Current Visit: No Status: Acute Code(s): Z86.39 - PERSONAL HISTORY OF ENDO, NUTRITIONAL AND METABOLIC DISEASE SNOMED Code(s): 712277647 (13) Hydronephrosis Current Visit: No Status: Acute Code(s): N13.30 - UNSPECIFIED HYDRONEPHROSIS SNOMED Code(s): 27302107 (14) Nausea and vomiting Current Visit: No Status: Acute Code(s): R11.2 - NAUSEA WITH VOMITING, UNSPECIFIED SNOMED Code(s): 63467618 (15) Obesity Current Visit: No Status: Acute Code(s): E66.9 - OBESITY, UNSPECIFIED SNOMED Code(s): 280269107 (16) Parkinson disease Current Visit: No Status: Acute Code(s): G20 - PARKINSON'S DISEASE SNOMED Code(s): 05425303 (17) Pure hypercholesterolemia Current Visit: No Status: Acute Code(s): E78.00 - PURE HYPERCHOLESTEROLEMIA, UNSPECIFIED SNOMED Code(s): 313684842 Plan: Continue current medication regimen Maintain strict aspiration cautions head of bed greater than 30 to 35 Subcu heparin for DVT prophylaxis Protonix for PPI coverage IV antibiotics of Zosyn and fluconazole Dilaudid 4 pain management We will order lab work for today and tomorrow We'll continue to follow labs and vitals and treat accordingly We will continue to follow closely and reevaluate patient again tomorrow Time with Patient: Greater than 30
[2021-05-12 16:55] LABS: Glucose,Whole Blood 91 mg/dL (75-99)
--- NOTE | 2021-05-12 18:41 | PN ---
PROGRESS NOTE DATE OF SERVICE: 05/12/2021 REASON FOR FOLLOW UP: Intraabdominal infection. INTERVAL HISTORY: The patient is afebrile. The patient is currently breathing comfortably, slightly more awake and alert today. However, did not communicate or ask any questions. No vomiting. No diarrhea. EXAMINATION: Blood pressure 150/81, pulse 81, temperature 98.7% 2 L nasal cannula. General description is an elderly female lying in bed in no distress. Respiratory system: Unlabored breathing, clear to auscultation anteriorly. Heart S1, S2. Regular rate and rhythm. Abdomen: Soft. No tenderness. LABS: BUN of 18, creatinine 0.8. ASSESSMENT: The patient with intraabdominal infection from the perforation on the stomach from a callus formation, also status post repair of the colon and sigmoid colectomy. The patient has received adequate antibiotic therapy, currently on Zosyn and Diflucan. White count normal. Antibiotic can be safely discontinued. Discharge and monitor clinical course closely. MMODL / IJN: [id number] /
[2021-05-12] MEDS: ACETAMINOPHEN TAB 325 MG TAB PO PRN (20:22)
[2021-05-12 23:58] LABS: Glucose,Whole Blood 118 mg/dL (75-99)
[2021-05-13] MEDS: INSULIN ASPART (NovoLOG) 100 UNIT/ML VIAL SQ SCH ×4 (01:06→16:59)
[2021-05-13] MEDS: HEPARIN SODIUM,PORCINE/PF 5,000 UNIT/0.5 ML SYRINGE SQ SCH ×3 (01:09→17:20)
[2021-05-13] MEDS: PIPERACILLIN-TAZOBACTAM 3.375 GM in SODIUM CHLORIDE 0.9% 100 ML IVPB SCH ×3 (01:09→17:20)
[2021-05-13] MEDS: DEXTROSE 10% IN WATER 500 ML in EMPTY BAG 1 BAG IV SCH ×3 (01:11→17:20)
[2021-05-13 06:00] LABS: Glucose,Whole Blood 117 mg/dL (75-99)
[2021-05-13] MEDS: ACETAMINOPHEN TAB 325 MG TAB PO PRN (06:02)
[2021-05-13] MEDS: PANTOPRAZOLE 40 MG/10 ML VIAL IV SCH (08:18)
[2021-05-13] MEDS: LEVOTHYROXINE IVP 100 MCG/5 ML VIAL IV SCH (08:18)
[2021-05-13] MEDS: FLUCONAZOLE 100 MG TAB PO SCH (08:19)
[2021-05-13] MEDS: CARBIDOPA-LEVODOPA 25-100 MG 1 EACH TAB PO SCH ×4 (08:19→20:10)
[2021-05-13] MEDS: NYSTATIN 100,000 UNIT/GM POWD 15 GM TOPICAL SCH ×2 (08:19→20:04)
[2021-05-13 09:23] LABS: Basophils # (A) 0.02 X 10*3/uL (0.00-0.10); Basophils % (A) 0.3 %; Eosinophils % (A) 1.3 %; HCT 26.2 % (37.2-46.3); Lymphocytes # (A) 1.06 X 10*3/uL (0.90-5.00); Lymphocytes % (A) 13.3 %; MCH 29.1 pg (27.0-32.0); MCHC 30.5 g/dL (32.0-37.0); MCV 95.3 fL (80.0-97.0); Mean Platelet Volume 10.4 fL (9.5-12.2); Monocytes # (A) 0.53 X 10*3/uL (0.20-1.00); Monocytes % (A) 6.7 %; Neutrophils # (A) 5.92 X 10*3/uL (1.80-7.70); Neutrophils % (A) 74.4 %; Platelet Count 246 X 10*3/uL (140-440); RBC 2.75 X 10*6/uL (4.10-5.20); RDW 20.2 % (11.5-14.5); WBC 7.95 X 10*3/uL (4.50-10.00)
[2021-05-13 11:20] LABS: Glucose,Whole Blood 122 mg/dL (75-99)
--- NOTE | 2021-05-13 11:33 | P.PN ---
Subjective Progress Note Date: 05/13/21 Doing well tolerating tube feeds Objective - Vital Signs Vital signs: Vital Signs Temp 99.0 F 05/13/21 07:00 Pulse 90 05/13/21 08:00 Resp 17 05/13/21 08:00 BP 145/78 05/13/21 07:00 Pulse Ox 97 05/13/21 09:18 Intake & Output 05/12/21 05/13/21 05/13/21 18:59 06:59 18:59 Intake Total 570 500 Output Total 1400 2750 Balance -830 -2750 500 Weight 98.5 kg Intake: IV 450 500 Dextrose 10% in Water 500 450 500 ml In Empty Bag 1 bag @ 50 mls/hr IV .Q10H [facility] Rx #:[id number] Tube Feeding 120 Output: Urine 1200 2500 Stool 200 250 Other: Voiding Method Indwelling Catheter Indwelling Catheter Indwelling Catheter - Constitutional General appearance: Present: no acute distress - Cardiovascular Rhythm: regular - Gastrointestinal Gastrointestinal Comment(s): S/NT/ND ostomy with liquid stool - Labs CBC & Chem 7: 05/13/21 06:30 05/12/21 06:18 Labs: Abnormal Lab Results - Last 24 Hours (Table) 05/12/21 05/12/21 05/12/21 Range/Units 06:18 11:36 23:56 RBC (4.10-5.20) X 10*6/uL Hgb (12.0-15.0) g/dL Hct (37.2-46.3) % MCHC (32.0-37.0) g/dL RDW (11.5-14.5) % Immature Gran # (0.00-0.04) X 10*3/uL Chloride 110 H (96-109) mmol/L BUN 8.0 L (9.0-27.0) mg/dL BUN/Creatinine Ratio 10.00 L (12.00-20.00) Ratio POC Glucose (mg/dL) 108 H 118 H (75-99) mg/dL Calcium 6.9 L (8.7-10.3) mg/dL Total Bilirubin 0.1 L (0.2-1.2) mg/dL AST 37 H (13-35) U/L ALT <8 L (8-44) U/L Total Protein 4.2 L (6.2-8.2) g/dL Albumin 1.90 L (3.80-4.90) g/dL Albumin/Globulin Ratio 0.83 L (1.60-3.17) g/dL 05/13/21 05/13/21 05/13/21 Range/Units 05:58 06:30 11:18 RBC 2.75 L (4.10-5.20) X 10*6/uL Hgb 8.0 L (12.0-15.0) g/dL Hct 26.2 L (37.2-46.3) % MCHC 30.5 L (32.0-37.0) g/dL RDW 20.2 H (11.5-14.5) % Immature Gran # 0.32 H (0.00-0.04) X 10*3/uL Chloride (96-109) mmol/L BUN (9.0-27.0) mg/dL BUN/Creatinine Ratio (12.00-20.00) Ratio POC Glucose (mg/dL) 117 H 122 H (75-99) mg/dL Calcium (8.7-10.3) mg/dL Total Bilirubin (0.2-1.2) mg/dL AST (13-35) U/L ALT (8-44) U/L Total Protein (6.2-8.2) g/dL Albumin (3.80-4.90) g/dL Albumin/Globulin Ratio (1.60-3.17) g/dL Assessment and Plan Assessment: S/P Ex Lap resection of sigmoid colon with end colostomy, repair of gastrotomy from dislodged peg tube, and placement of feeding J tube Plan: Continue tube feeds as tolerated Keep patient up in bed and had a bed at 30-35 to prevent aspiration.
[2021-05-13 14:25] VITALS: BMI 39.6
[2021-05-13 15:12] LABS: African American GFR (CKD) 83.6 (60.0-200.0); Albumin 2.2 g/dL (3.80-4.90); Albumin/Globulin Ratio 0.81 (1.60-3.17); Calcium 7.6 mg/dL (8.7-10.3); Globulin 2.7 g/dL (1.6-3.3); Non-African American GFR(CKD) 72.1 (60.0-200.0); Potassium 3.1 mmol/L (3.5-5.5); Total Bilirubin 0.2 mg/dL (0.3-1.2); Total Protein 4.9 g/dL (6.2-8.2)
[2021-05-13] MEDS ORDERED: Magnesium Replacement Protocol 1 EACH MISC MISCELLANE PRN (15:58)
--- NOTE | 2021-05-13 16:12 | P.PN ---
Subjective Progress Note Date: 05/13/21 This is a 75-year-old female with past medical history of UTI Strep agalactiae - (group b) with Pyelonephritis, severe right hydronephrosis with right ureteral stent insertion to 12/26/20,CVA with residual left-sided weakness, expressive aphasia/TIA, hyperlipidemia, hypertension, chronic renal failure, hypo thyroidism, obesity, anxiety, bipolar, depression, former nicotine dependence presented to the ER via EMS for [facility] with reports that patient had mental status changes, combative over the last few days with an episode of vomiting. Patient's baseline is chronic residual left-sided weakness from prior CVA with expressive aphasia. Patient currently nonverbal, rigid, posturing, attempting to communicate with blinking of right eye. Febrile, T-max 100.3, WBC 13.1 yesterday down to 7.9. Maintained on vancomycin. Hemoglobin 8, platelets 217, glucose 104, potassium 2.8, magnesium 1.4 both being supplemented. Sodium 140, BUN 9, creatinine 0.73. Lactic acid 0.8. UA reporting urine WBCs 21, large leukocytes 1+ ketones. EKG reported normal sinus rhythm, left ventricular hypertrophy, chest x-ray reporting bibasilar atelectasis/subsegmental consolidation. Baca virus not detected. 04/18/[address] reported chronic appearing periventricular white matter ischemic type changes, stable .evaluated by neurology who attributes clinical presentation to suspected severe Parkinsonian from not having Sinemet for a few days. PEG tube placement pending .maintained on IV fluid hydration. Remains encephalopathic,more alert today, minimally conversing, not following commands. EEG/EMG completed, results pending T-max 99.9, normal WBC. Urine culture reporting enterococcus faecium.preliminary blood cultures reporting no growth at 48 hours Continues on vancomycin, creatinine 0.68. Hemoglobin 8.5, platelets 171. Potassium 3.2, magnesium 2.2. 04/21/2021 maintain IV fluid hydration. Lethargic, nausea and vomiting reported after meds administered via PEG-therefore has not received Sinemet yet today. Urology reconsult regarding cystoscopy for hydronephrosis. Impacted, fleets jermaine mas/disimpaction ordered. PICC line ordered for TPN, as patient has been without nutrition for several days prior to admission and has not been able to be started on PEG tube feedings. Afebrile. 04/22/2021 more alert, received Sinemet yesterday and this morning, no nausea vomiting. We'll reattempt tube feeds via PEG tube -if unable to tolerate then we'll proceed with PICC line and TPN. Received one fleets enema with small stool and reported. Potassium 2.8, receiving supplementation, magnesium 1.8. Urine remains cloudy. Evaluated by urology and scheduled for surgery/potential cystoscopy/right ureteral stent removal/8 ureteroscopy/possible replacement of stent on 04/24/2021. 04/23/2021 large bowel movement last night. Reports diffuse abdominal pain. Tolerating tube feeds at 40 MLS per hour/Goal of 55 with minimal to no residuals, no nausea or vomiting. Continues on vancomycin. Scheduled for cystoscopy tomorrow with right ureteral stent exchange. Afebrile. 04/24/2021 Recently returned from cystoscopy, verbal report of stent exchange- multiple attempts. Currently sedated, opens eyes and falls back asleep. 04/25/2021 postop day #1 from cystoscopy. Procedure note reports right ureteral stent removed, multiple attempts made to identify the triple-lumen unable to identify, contrast injected but did not pass into the renal pelvis, multiple attempts made to advance Glidewire-unsuccessful, and procedure was terminated. Bueno catheter with yellow urine with sediment. Patient sleepy but continues to complain of pain, attempting to use communication board. Afebrile, BMP pending. 04/26/2021: Patient is postop day 2 cystoscopy with removal of ureteral stent. There were unable to put another stent in. A urostomy tube is recommended if she continues to have problems per urology. She remains afebrile, blood pressure heart rate and restaurant rate remained stable. Infectious disease, urology and neurology are following. Their notes were reviewed today. Electrolytes are stable. Sugar slightly elevated before breakfast and 156. She large bowel movement last night. She is noted to have elevated TSH at 6.27. She remains on Synthroid of 150 g daily. She remains on vancomycin for her complicated UTI. Diflucan and added. Chillier self this morning is somnolent, but arousable. She can she's tired. She denies any other complaints when specifically asked. She continues to have significant upper extremity edema, most likely from the IV fluids she was on. Her tube feedings are currently at goal at 55 mL per hour. 04/27/2021: Patient status postop day #3 cystoscopy and ureteral stent removal. New stent could not be placed. Urology is following. They're considering a right-sided nephrostomy tube if her right lower quadrant pain is not resolved. Today she complains of right lower quadrant pain. She currently denies any nausea vomiting, chest pains, pressures, shortness of breath. She is nothing by mouth still. She remains afebrile, heart rate restaurant rate and blood pressure remained stable. Pulse oximetry remained stable. Hemoglobin this morning was 7.0. MCV is 86.7. Glucose remained fairly well controlled. She remains on vancomycin and Diflucan for a complicated UTI. Infectious disease is following. 04/28/2021 complains of right lower quadrant pain. Denies nausea. Renal function stable, BUN 15, creatinine 0.74. Afebrile, WBC 13.52. Hemoglobin 9.1, platelets 147. Blood sugars controlled. 04/29/2021 Tube feeds have remained off since Wednesday evening, positive for nausea vomiting last night, none this morning. Abdomen more distended, hypo- active bowel sounds. Diffuse tenderness.Positive bowel movement yesterday. Urology recommended no nephrostomy at this time , following closely with surgery. Surgery updated, recommending PEG tube be placed to gravity with a Bueno-initial flatus, trace dark brown drainage. Potassium 3.1. Afebrile, CBC pending. 04/30/2021 Yesterday WBC worsened, abdomen more distended .KUB and reported high-grade bowel obstruction, contrast within the stomach, vague density left upper quadrant, possible extravasation.CT of abdomen and pelvis completed yesterday reported high attenuation material from gastrostomy tube injection, contrast and peritoneal cavity around the spleen and liver in the upper abdomen, small pneumoperitoneum, gastrostomy tube did not appear to be in the stomach, multiple left-sided renal parapelvic cyst, moderate bilateral hydronephrosis on the right side, large parapelvic cyst, rectal fecal impaction with dilated large bowel and dilated small bowel, mechanical bowel obstruction, bilateral pleural effusions and basilar infiltrates and atelectasis, appears worse. Patient proceeded with exploratory laparotomy, converted to open procedure sigmoid gonzalo ctomy and creation of end colostomy and repair of gastrostomy along with placement of jejunal feeding tube. Returned to ICU, intubated, currently FiO2 50%, PEEP +5. Borderline hypotension ,maintained on IV fluid hydration of LR at 50 miles per hour, diprovan. Renal function mildly worsening, BUN 24, creatinine 1.14. Marginal urine output. Chest x-ray reported cardiomegaly and basilar atelectasis and small right pleural effusion. Continues on Diflucan and Zosyn as per ID. Telemetry sinus rhythm. Afebrile, normal WBC. Hemoglobin 10.8, platelets 216, INR 1.2, potassium 3.4, magnesium 2.1. 05/01/2021 remains on mechanical ventilation, FiO2 down to 40%/+5 of PEEP. Sedated on diprovan. Spontaneous Breathing trials being discussed. Diprovan recently weaned off, slowly waking up, discussing attempting CPAP trial. Significant endotracheal page secretions. Telemetry sinus rhythm 24-hour I&O reflecting a positive fluid balance ; received aggressive fluid boluses/resuscitation, required initiation of Levophed last night, currently on 2 mics. Chest x-ray reporting diffuse interstitial pattern with bilateral infiltrates, small effusion, venous congestion. Received a dose of Lasix ye sterday. Urine output improving. Renal function stable. PICC line placed yesterday with TPN initiated. Afebrile, normal WBC. Hemoglobin 8.4, platelets 179, sodium 136, potassium 3.9, magnesium 1.9, albumin 1.8. 05/02/2021 extubated yesterday, maintaining O2 sats in the 90s on 2 L nasal cannula. Borderline hypotension, continues on Levophed, currently 2 mics. Maintained on gentle IV fluid hydration, TPN, Zosyn and Diflucan. Large bowel movement rectally in addition to colostomy with loose stool. 24-hour I&O reflecting a positive fluid balance. Renal function stable Trickling of tube f eeds initiated. T-max 99.5, normal WBC. Hemoglobin 9.6, platelets 152. 6/ continues on Zosyn and Diflucan . Renal function stable. Complains of right-sided flank pain. Nephrostomy tube on hold as per urology.maintaining O2 sats in the 90s on 1 L nasal cannula . Chest x-ray reporting low lung volumes, possible basilar atelectasis Sinemet resumed on Wednesday, arousable, follows simple commands. Receiving TPN via PICC line and also on tube feeds at goal, tolerating well with minimal to no residuals. Hemoglobin 7.3. Potassium 3.0. 05/06/2021 hemoglobin 6.7, lab reporting more antibioties, sent out to the [facility], transfusion pending. Telemetry sinus rhythm with occasional PVCs. Potassium 3.1,potassium replacement in progress. TPN discontinued. Tube feeds converted over to a vital AF, at goal of 45 MLS/hr. Ostomy output very similar to tube feeding, watery. High NG and ostomy output. Shakes head yes to pain on the right lower abdominal/flank side. 05/07/2021 continue to have significant output from both ostomy and NG tube throughout the night. Today NG drainage slowing down. Ostomy drainage thickening up but continues to resemble tube feed. Tube feed at goal with minimal to no residuals. Urine output decreased. Urology notified, renal ultrasound ordered/pending. IV fluids increased. Sleepy, dozes off during conversation. Telemetry sinus rhythm. Receive 1 unit of packed RBCs with current Hemoglobin 7.1. Potassium 3.2, supplemented. Continues to complain of right-sided flank pain. 05/08/2021 lethargic. Moans and shakes head yes to pain with palpation of right lower abdominal quadrant. No surgical plans at this time as per urology.acute abdominal series reported distended small bowel with subcutaneous fluid levels, suspected small bowel ileus, partial mechanical obstruction. Tube feeds placed on hold, 5 mL released from J-tube balloon as per surgery with resulting in significantly decreased output from NG tube ( LIS). Ostomy output appears more bile in color. Renal function stable. Afebrile. Maintaining O2 sats in the 90s on 1 L nasal cannula. Continues on Zosyn , Diflucan and IV fluids. 05/09/2021 maintaining O2 sats in the 90s on 1 L nasal cannula. Chest x-ray noted. More alert. Developed hypoglycemia, following discontinuation of tube feeds. IV fluids of D10 initiated yesterday with current blood sugars in the l ow 100s. Outputs remain lower; less NG and ostomy output. Small rectal bowel movement today. Maintained on Zosyn Afebrile, normal WBC. Repeat urine culture reporting no growth after 18 hours. Hemoglobin 8.6, platelets 177. Chloride 112, BUN 16, creatinine 0.92. 05/13/2021 tolerating tube feeds via J-tube. T-max 99, normal WBC. Hemoglobin 8, platelets 246. Potassium 3.1. BUN 8, creatinine 0.8. Denies chest pain, palpitations. Maintaining O2 sats in the high 90s on 2 L nasal cannula O2. Completed antibiotic therapy as per ID. 3 Objective - Vital Signs Vital signs: Vital Signs Temp 99.0 F 05/13/21 07:00 Pulse 90 05/13/21 08:00 Resp 17 05/13/21 08:00 BP 145/78 05/13/21 07:00 Pulse Ox 97 05/13/21 09:18 Intake & Output 05/12/21 05/13/21 05/13/21 18:59 06:59 18:59 Intake Total 570 960 Output Total 1400 2750 Balance -830 -2750 960 Weight 98.5 kg Intake: IV 450 700 Dextrose 10% in Water 500 450 700 ml In Empty Bag 1 bag @ 50 mls/hr IV .Q10H [facility] Rx #:[id number] Intake, IV Titration 100 Amount Piperacillin-Tazobactam 3 100 .375 gm In Sodium Chloride 0.9% 100 ml @ 25 mls/hr IVPB Q8HR [facility] Rx# :[id number] Tube Feeding 120 160 Output: Urine 1200 2500 Stool 200 250 Other: Voiding Method Indwelling Catheter Indwelling Catheter Indwelling Catheter - Exam - Exam General: sitting up in bed, alert HEENT: PERRL. EOMI. conjunctivae normal. Neck: Supple, no JVD. Cardiac: Heart regular in rate and rhythm. No S3. No S4. No clicks, rubs. No murmur. Lungs: Clear breath sounds, no rhonchi, crackles, or wheezes,bilateral bases diminished. Abdomen: soft,distended, status post surgery,positive bowel sounds. jejunal tube present, functioning ostomy. Midline Abdominal dressing clean dry and intact. Extremities: Positive edema of all extremities, normal pulses. Wearing offloading boots. Skin: Warm and dry, no rashes noted. Neurologic: Cranial nerves II through XII grossly and Patient able to squeeze hands, wiggle toes, and answer no to pain or difficulty breathing. Patient history of CVA with aphasia, follow simple commands. - Labs CBC & Chem 7: 05/13/21 06:30 05/13/21 06:30 Labs: Abnormal Lab Results - Last 24 Hours (Table) 05/12/21 05/13/21 05/13/21 Range/Units 23:56 05:58 06:30 RBC 2.75 L (4.10-5.20) X 10*6/uL Hgb 8.0 L (12.0-15.0) g/dL Hct 26.2 L (37.2-46.3) % MCHC 30.5 L (32.0-37.0) g/dL RDW 20.2 H (11.5-14.5) % Immature Gran # 0.32 H (0.00-0.04) X 10*3/uL POC Glucose (mg/dL) 118 H 117 H (75-99) mg/dL 05/13/21 Range/Units 11:18 RBC (4.10-5.20) X 10*6/uL Hgb (12.0-15.0) g/dL Hct (37.2-46.3) % MCHC (32.0-37.0) g/dL RDW (11.5-14.5) % Immature Gran # (0.00-0.04) X 10*3/uL POC Glucose (mg/dL) 122 H (75-99) mg/dL Assessment and Plan Assessment: Displaced PEG tube with extravasation of contrast and free air, sigmoid volvulus, fecal impaction, status post exploratory laparotomy, sigmoid colectomy, creation of end colostomy and repair of gastrostomy, jejunal feeding tube placement. Acute hypoxic respiratory failure, status/ post mechanical ventilator-dependent Hypovolemic hypotension, resolved Acute renal failure, ATN ,secondary to the above and hydronephrosis Sepsis,multifactorial, including multiple comorbidities ,complicated acute UTI ,severe right-sided hydronephrosis with right stent removal this admission,and #1, not present on admission. Acute toxic, metabolic encephalopathy,brain CT reported no acute infarcts, chronic stable changes, in a patient with history of CVA, possibly secondary to lack of Sinemet, levels ordered, suspect severe parkinsonism,Neurology following. Improved. Acute UTI, enterococcus faecium, in a patient with history of recurrent UTIs, recent acute UTI with Enterobacter aerogenes, complicated with bilateral h ydronephrosis Bilateral hydronephrosis,no change in the right-sided hydronephrosis. Right ureteral stent insertion 01/06/21, obstruction of UPJ-status post cystoscopy with right stent removed, unable to replace. Nephrostomy pending. 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 Hypothyroidism Bipolar disorder Obesity, BMI 36 Normocytic anemia Status post PICC line with initiation of TPN Small bowel ileus, possible's partial mechanical obstruction 05/07/21 No code, no CPR, no intubation Plan: Continue on current medication regime ,monitoring and symptomatic treatment. Potassium replacement as per replacement protocol previously ordered. Magnesium level added and pending with replacement as per replacement protocol. Maintain strict aspiration precautions. Discharge planning in progress for return to [facility] rehab tomorrow pending final DC recommendations and clearance from surgery. The impression and plan of care has been dictated as directed. : I performed a history and examination of this patient, discussed the same with the dictator. I agree with the dictator's note ,documented as a scribe. Any additional findings or plans will be noted.
[2021-05-13 16:58] LABS: Glucose,Whole Blood 121 mg/dL (75-99)
[2021-05-13] MEDS ORDERED: Potassium Replacement Protocol 1 EACH MISC MISCELLANE PRN ×2 (18:04→18:06)
[2021-05-13] MEDS: POTASSIUM CHLORIDE 10 MEQ in WATER FOR INJECTION 1 100ML.BAG IVPB SCH ×4 (18:17→23:11)
[2021-05-13] MEDS ORDERED: POTASSIUM CHLORIDE ER 20 MEQ TAB.ER PO SCH (19:00)
[2021-05-13] MEDS: HYDROmorphone 0.5 MG/0.5 ML SYRINGE IVP PRN (20:00)
[2021-05-14] MEDS: HEPARIN SODIUM,PORCINE/PF 5,000 UNIT/0.5 ML SYRINGE SQ SCH ×3 (00:02→16:37)
[2021-05-14] MEDS: INSULIN ASPART (NovoLOG) 100 UNIT/ML VIAL SQ SCH ×4 (00:04→17:28)
[2021-05-14 00:05] LABS: Glucose,Whole Blood 102 mg/dL (75-99)
[2021-05-14] MEDS: HYDROmorphone 0.5 MG/0.5 ML SYRINGE IVP PRN (00:09)
[2021-05-14] MEDS: DEXTROSE 10% IN WATER 500 ML in EMPTY BAG 1 BAG IV SCH ×2 (04:12→06:11)
[2021-05-14 05:32] LABS: Glucose,Whole Blood 114 mg/dL (75-99)
--- NOTE | 2021-05-14 05:53 | PN ---
PROGRESS NOTE DATE OF SERVICE: 05/13/2021. REASON FOR FOLLOWUP: Intraabdominal infection. INTERVAL HISTORY: The patient is afebrile. The patient is breathing comfortably. The patient is hemodynamically stable currently on 2 L nasal cannula. Oral intake remains to poor. No vomiting or diarrhea or any other changes reported per the nursing staff. PHYSICAL EXAMINATION: Blood pressure 125/79, pulse of 99. Temperature 99.2. She is 96% on 2 L nasal cannula. General description is an elderly female lying in bed in no distress. Respiratory system: Unlabored breathing, decreased breath sounds in the base, with no wheeze. Heart S1, S2. Regular rate and rhythm. Abdomen soft, no tenderness. LABS: Hemoglobin 8, white count 7.5, BUN of 8, creatinine 0.8. DIAGNOSTIC IMPRESSION AND PLAN: Patient with abdominal infection in this patient who did have perforation of the stomach from PEG tube and ischemic colitis from the sigmoid volvulus status post repair of the stomach perforation and sigmoid colectomy. The patient has received adequate antibiotic therapy for underlying infection, completed her Zosyn. We will monitor the patient closely off antibiotics and continue supportive care. MMODL / IJN: [id number] /
[2021-05-14] MEDS: ACETAMINOPHEN TAB 325 MG TAB PO PRN ×2 (08:16→19:43)
[2021-05-14] MEDS: CARBIDOPA-LEVODOPA 25-100 MG 1 EACH TAB PO SCH ×4 (08:16→21:31)
[2021-05-14] MEDS: FLUCONAZOLE 100 MG TAB PO SCH (08:16)
[2021-05-14] MEDS: PANTOPRAZOLE 40 MG/10 ML VIAL IV SCH (08:17)
[2021-05-14] MEDS: LEVOTHYROXINE IVP 100 MCG/5 ML VIAL IV SCH (08:17)
[2021-05-14 10:19] LABS: HCT 24.2 % (37.2-46.3); HGB 7.4 g/dL (12.0-15.0); MCH 29.4 pg (27.0-32.0); MCHC 30.6 g/dL (32.0-37.0); Mean Platelet Volume 10.6 fL (9.5-12.2); Platelet Count 219 X 10*3/uL (140-440); RBC 2.52 X 10*6/uL (4.10-5.20); RDW 20.5 % (11.5-14.5); WBC 7.69 X 10*3/uL (4.50-10.00)
[2021-05-14 10:40] LABS: African American GFR (CKD) 98.2 (60.0-200.0); Anion Gap 6.9 mmol/L (4.00-12.00); Calcium 7.4 mg/dL (8.7-10.3); Carbon Dioxide 26.1 mmol/L (21.6-31.8); Magnesium 1.2 mg/dL (1.5-2.4); Non-African American GFR(CKD) 84.8 (60.0-200.0); Potassium 3.5 mmol/L (3.5-5.5)
[2021-05-14 11:34] LABS: Glucose,Whole Blood 108 mg/dL (75-99)
--- NOTE | 2021-05-14 12:23 | P.DS ---
Providers Date of admission: 04/17/21 11:06 Expected date of discharge: 05/14/21 Attending physician: Gume Santiago Consults: 04/17/21 12:55 Consult Physician Routine Consulting Provider: Robson Brown Consult Reason/Comments: AMS Do you want consulting provider notified?: Yes 04/17/21 13:39 Consult Physician Stat Consulting Provider: Robson Brown Consult Reason/Comments: AMS Do you want consulting provider notified?: Yes 04/17/21 18:08 Consult Physician Urgent Consulting Provider: Santiago Dempsey Consult Reason/Comments: PEG Tube Placement, inability to swallow Do you want consulting provider notified?: Yes 04/18/21 19:32 Consult Physician Routine Consulting Provider: Zhane Johnson Consult Reason/Comments: Acute UTI with enterococcus faecium, obstructive uropathy/hydronephrosis Do you want consulting provider notified?: Yes 04/21/21 10:04 Consult Physician Stat Consulting Provider: Lester Gee Consult Reason/Comments: Hydronephrosis Do you want consulting provider notified?: Yes 04/29/21 08:24 Consult Physician Urgent Consulting Provider: Santiago Dempsey Consult Reason/Comments: distended abd, vomiting Do you want consulting provider notified?: Yes 04/30/21 03:43 Consult Physician Routine Consulting Provider: Court Duran Consult Reason/Comments: ICU managment Do you want consulting provider notified?: Already Contacted Primary care physician: Cameron Nelson [facility] Course: Final Diagnoses: Displaced PEG tube with extravasation of contrast and free air, sigmoid volvulus, fecal impaction, status post exploratory laparotomy, sigmoid colectomy, creation of end colostomy and repair of gastrostomy, jejunal feeding tube placement. Acute hypoxic respiratory failure, status/ post mechanical ventilator-dependent Hypovolemic hypotension, resolved Acute renal failure, ATN ,secondary to the above and hydronephrosis Sepsis,multifactorial, including multiple comorbidities ,complicated acute UTI ,severe right-sided hydronephrosis with right stent removal this admission,and #1, not present on admission. Acute toxic, metabolic encephalopathy,brain CT reported no acute infarcts, chron ic stable changes, in a patient with history of CVA, possibly secondary to lack of Sinemet, levels ordered, suspect severe parkinsonism,Neurology following. Improved. Acute UTI, enterococcus faecium, in a patient with history of recurrent UTIs, recent acute UTI with Enterobacter aerogenes, complicated with bilateral hydronephrosis Bilateral hydronephrosis,no change in the right-sided hydronephrosis. Right ureteral stent insertion 01/06/21, obstruction of UPJ-status post cystoscopy with right stent removed, unable to replace. Nephrostomy pending. 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 Hypothyroidism Bipolar disorder Obesity, BMI 36 Normocytic anemia Status post PICC line with initiation of TPN Small bowel ileus, possible's partial mechanical obstruction 05/07/21 No code, no CPR, no intubation Hospital course:This is a 75-year-old female with past medical history of UTI Strep agalactiae - (group b) with Pyelonephritis, severe right hydronephrosis with right ureteral stent insertion to 12/26/20,CVA with residual left-sided weakness, expressive aphasia/TIA, hyperlipidemia, hypertension, chronic renal failure, hypothyroidism, obesity, anxiety, bipolar, depression, former nicotine dependence presented to the ER via EMS for [facility] with reports that patient had mental status changes, combative over the last few days with an episode of vomiting. Patient's baseline is chronic residual left-sided weakness from prior CVA with expressive aphasia. Patient currently nonverbal, rigid, posturing, attempting to communicate with blinking of right eye. Febrile, T-max 100.3, WBC 13.1 yesterday down to 7.9. Maintained on vancomycin. Hemoglobin 8, platelets 217, glucose 104, potassium 2.8, magnesium 1.4 both being supplemented. Sodium 140, BUN 9, creatinine 0.73. Lactic acid 0.8. UA reporting urine WBCs 21, large leukocytes 1+ ketones. EKG reported normal sinus rhythm, left ventricular hypertrophy, chest x-ray reporting bibasilar atelectasis/subsegmental consolidation. Baca virus not detected. 04/18/[address] reported chronic appearing periventricular white matter ischemic type changes, stable .evaluated by neurology who attributes clinical presentation to suspected severe Parkinsonian from not having Sinemet for a few days. PEG tube placement pending .maintained on IV fluid hydration. Remains encephalopathic,more alert today, minimally conversing, not following commands. EEG/EMG completed, results pending T-max 99.9, normal WBC. Urine culture reporting enterococcus faecium.preliminary blood cultures reporting no growth at 48 hours Continues on vancomycin, creatinine 0.68. Hemoglobin 8.5, platelets 171. Potassium 3.2, magnesium 2.2. 04/21/2021 maintain IV fluid hydration. Lethargic, nausea and vomiting reported after meds administered via PEG-therefore has not received Sinemet yet today. Urology reconsult regarding cystoscopy for hydronephrosis. Impacted, fleets enemas/disimpaction ordered. PICC line ordered for TPN, as patient has been without nutrition for several days prior to admission and has not been able to be started on PEG tube feedings. Afebrile. 04/22/2021 more alert, received Sinemet yesterday and this morning, no nausea vomiting. We'll reattempt tube feeds via PEG tube -if unable to tolerate then we'll proceed with PICC line and TPN. Received one fleets enema with small stool and reported. Potassium 2.8, receiving supplementation, magnesium 1.8. Urine remains cloudy. Evaluated by urology and scheduled for surgery/potential cystoscopy/right ureteral stent removal/8 ureteroscopy/possible replacement of stent on 04/24/2021. 04/23/2021 large bowel movement last night. Reports diffuse abdominal pain. Tolerating tube feeds at 40 MLS per hour/Goal of 55 with minimal to no residuals, no nausea or vomiting. Continues on vancomycin. Scheduled for cystoscopy tomorrow with right ureteral stent exchange. Afebrile. 04/24/2021 Recently returned from cystoscopy, verbal report of stent exchange- multiple attempts. Currently sedated, opens eyes and falls back asleep. 04/25/2021 postop day #1 from cystoscopy. Procedure note reports right ureteral stent removed, multiple attempts made to identify the triple-lumen unable to identify, contrast injected but did not pass into the renal pelvis, multiple attempts made to advance Glidewire-unsuccessful, and procedure was terminated. Bueno catheter with yellow urine with sediment. Patient sleepy but continues to complain of pain, attempting to use communication board. Afebrile, BMP pending. 04/26/2021: Patient is postop day 2 cystoscopy with removal of ureteral stent. There were unable to put another stent in. A urostomy tube is recommended if she continues to have problems per urology. She remains afebrile, blood pressure heart rate and restaurant rate remained stable. Infectious disease, urology and neurology are following. Their notes were reviewed today. Electrolytes are stable. Sugar slightly elevated before b reakfast and 156. She large bowel movement last night. She is noted to have elevated TSH at 6.27. She remains on Synthroid of 150 g daily. She remains on vancomycin for her complicated UTI. Diflucan and added. Chillier self this morning is somnolent, but arousable. She can she's tired. She denies any other complaints when specifically asked. She continues to have significant upper extremity edema, most likely from the IV fluids she was on. Her tube feedings are currently at goal at 55 mL per hour. 04/27/2021: Patient status postop day #3 cystoscopy and ureteral stent removal. New stent could not be placed. Urology is following. They're considering a right-sided nephrostomy tube if her right lower quadrant pain is not resolved. Today she complains of right lower quadrant pain. She currently denies any nausea vomiting, chest pains, pressures, shortness of breath. She is nothing by mouth still. She remains afebrile, heart rate restaurant rate and blood pressure remained stable. Pulse oximetry remained stable. Hemoglobin this morning was 7.0. MCV is 86.7. Glucose remained fairly well controlled. She remains on vancomycin and Diflucan for a complicated UTI. Infectious disease is following. 04/28/2021 complains of right lower quadrant pain. Denies nausea. Renal function stable, BUN 15, creatinine 0.74. Afebrile, WBC 13.52. Hemoglobin 9.1, platelets 147. Blood sugars controlled. 04/29/2021 Tube feeds have remained off since Wednesday evening, positive for nausea vomiting last night, none this morning. Abdomen more distended, hypo- active bowel sounds. Diffuse tenderness.Positive bowel movement yesterday. Urology recommended no nephrostomy at this time , following closely with surgery. Surgery updated, recommending PEG tube be placed to gravity with a Bueno-initial flatus, trace dark brown drainage. Potassium 3.1. Afebrile, CBC pending. 04/30/2021 Yesterday WBC worsened, abdomen more distended .KUB and reported high-grade bowel obstruction, contrast within the stomach, vague density left upper quadrant, possible extravasation.CT of abdomen and pelvis completed yesterday reported high attenuation material from gastrostomy tube injection, contrast and peritoneal cavity around the spleen and liver in the upper abdomen, small pneumoperitoneum, gastrostomy tube did not appear to be in the stomach, multiple left-sided renal parapelvic cyst, moderate bilateral hydronephrosis on the right side, large parapelvic cyst, rectal fecal impaction with dilated large bowel and dilated small bowel, mechanical bowel obstruction, bilateral pleural effusions and basilar infiltrates and atelectasis, appears worse. Patient proceeded with exploratory laparotomy, converted to open procedure sigmoid colectomy and creation of end colostomy and repair of gastrostomy along with placement of jejunal feeding tube. Returned to ICU, intubated, currently FiO2 50%, PEEP +5. Borderline hypotension ,maintained on IV fluid hydration of LR at 50 miles per hour, diprovan. Renal function mildly worsening, BUN 24, creatinine 1.14. Marginal urine output. Chest x-ray reported cardiomegaly and basilar atelectasis and small right pleural effusion. Continues on Diflucan and Zosyn as per ID. Telemetry sinus rhythm. Afebrile, normal WBC. Hemoglobin 10.8, platelets 216, INR 1.2, potassium 3.4, magnesium 2.1. 05/01/2021 remains on mechanical ventilation, FiO2 down to 40%/+5 of PEEP. Sedated on diprovan. Spontaneous Breathing trials being discussed. Diprovan recently weaned off, slowly waking up, discussing attempting CPAP trial. Significant endotracheal page secretions. Telemetry sinus rhythm 24-hour I&O reflecting a positive fluid balance ; received aggressive fluid boluses/resuscitation, required initiation of Levophed last night, currently on 2 mics. Chest x-ray reporting diffuse interstitial pattern with bilateral infiltrates, small effusion, venous congestion. Received a dose of Lasix yesterday. Urine output improving. Renal function stable. PICC line placed yesterday with TPN initiated. Afebrile, normal WBC. Hemoglobin 8.4, platelets 179, sodium 136, potassium 3.9, magnesium 1.9, albumin 1.8. 05/02/2021 extubated yesterday, maintaining O2 sats in the 90s on 2 L nasal cannula. Borderline hypotension, continues on Levophed, currently 2 mics. Maintained on gentle IV fluid hydration, TPN, Zosyn and Diflucan. Large bowel movement rectally in addition to colostomy with loose stool. 24-hour I&O reflecting a positive fluid balance. Renal function stable Trickling of tube feeds initiated. T-max 99.5, normal WBC. Hemoglobin 9.6, platelets 152. 6/ continues on Zosyn and Diflucan . Renal function stable. Complains of right-sided flank pain. Nephrostomy tube on hold as per urology.maintaining O2 sats in the 90s on 1 L nasal cannula . Chest x-ray reporting low lung volumes, possible basilar atelectasis Sinemet resumed on Wednesday, arousable, follows simple commands. Receiving TPN via PICC line and also on tube feeds at goal, tolerating well with minimal to no residuals. Hemoglobin 7.3. Potassium 3.0. 05/06/2021 hemoglobin 6.7, lab reporting more antibioties, sent out to the [facility], transfusion pending. Telemetry sinus rhythm with occasional PVCs. Potassium 3.1,potassium replacement in progress. TPN discontinued. Tube feeds converted over to a vital AF, at goal of 45 MLS/hr. Ostomy output very similar to tube feeding, watery. High NG and ostomy output. Shakes head yes to pain on the right lower abdominal/flank side. 05/07/2021 continue to have significant output from both ostomy and NG tube throughout the night. Today NG drainage slowing down. Ostomy drainage thickening up but continues to resemble tube feed. Tube feed at goal with minimal to no residuals. Urine output decreased. Urology notified, renal ultrasound ordered/pending. IV fluids increased. Sleepy, dozes off during conversation. Telemetry sinus rhythm. Receive 1 unit of packed RBCs with current Hemoglobin 7.1. Potassium 3.2, supplemented. Continues to complain of right-sided flank pain. 05/08/2021 lethargic. Moans and shakes head yes to pain with palpation of right lower abdominal quadrant. No surgical plans at this time as per urology.acute abdominal series reported distended small bowel with subcutaneous fluid levels, suspected small bowel ileus, partial mechanical obstruction. Tube feeds placed on hold, 5 mL released from J-tube balloon as per surgery with resulting in significantly decreased output from NG tube ( LIS). Ostomy output appears more bile in color. Renal function stable. Afebrile. Maintaining O2 sats in the 90s on 1 L nasal cannula. Continues on Zosyn , Diflucan and IV fluids. 05/09/2021 maintaining O2 sats in the 90s on 1 L nasal cannula. Chest x-ray noted. More alert. Developed hypoglycemia, following discontinuation of tube feeds. IV fluids of D10 initiated yesterday with current blood sugars in the low 100s. Outputs remain lower; less NG and ostomy output. Small rectal bowel movement today. Maintained on Zosyn Afebrile, normal WBC. Repeat urine culture reporting no growth after 18 hours. Hemoglobin 8.6, platelets 177. Chloride 112, BUN 16, creatinine 0.92. 05/13/2021 tolerating tube feeds via J-tube. T-max 99, normal WBC. Hemoglobin 8, platelets 246. Potassium 3.1. BUN 8, creatinine 0.8. Denies chest pain, palpitations. Maintaining O2 sats in the high 90s on 2 L nasal cannula O2. Completed antibiotic therapy as per ID. Significant clinical improvement. Completed antibiotics as per ID. Patient will be discharged to [facility] subacute rehab today in a stable condition with guarded prognosis. The impression and plan of care has been dictated as directed. : I performed a history and examination of this patient, discussed the same with the dictator. I agree with the dictator's note ,documented as a scribe. Any additional findings or plans will be noted. Patient Condition at Discharge: Stable Plan - Discharge Summary Discharge Rx Participant: No New Discharge Prescriptions: Continue Escitalopram Oxalate [Lexapro] 10 mg PO DAILY@0800 Pravastatin Sodium [Pravachol] 80 mg PO HS Omeprazole [PriLOSEC] 20 mg PO BID@0800,1700 Levothyroxine Sodium [Synthroid] 150 mcg PO DAILY@0800 Pramipexole [Mirapex] 1 mg PO HS calcitrioL [Rocaltrol] 0.25 mcg PO SUMOTUWETHFR@1200 Ergocalciferol (Vitamin D2) [Drisdol (50,000 Iu)] 1,250 mcg PO Q14D@1200 Metoprolol Tartrate [Lopressor] 50 mg PO BID@0800,1700 Potassium Chloride ER [K-Dur 20] 20 meq PO DAILY@1200 Carbidopa-Levodopa 25-100 mg [Sinemet 25-100 mg] 2 tab PO AC-SUPPER@1700 Carbidopa-Levodopa 25-100 mg [Sinemet 25-100 mg] 1 tab PO TID@0800,1200,2100 polyethylene glycoL 3350 [Miralax] 17 gm PO DAILY PRN #0 powd.pack PRN Reason: Constipation Sennosides-Docusate Sodium [Senokot-S] 1 tab PO BID@0800,1700 Ascorbic Acid [Vitamin C] 1,000 mg PO DAILY@1200 Ondansetron Odt [Zofran ODT] 4 mg PO Q8H PRN PRN Reason: Nausea Ondansetron HCl [Zofran] 4 mg PO DAILY@0600 Na Phos,M-B/Na Phos,Di-Ba [Fleet Adult] 133 ml RECTAL DAILY PRN PRN Reason: Constipation Lactose-Reduced Food [Ensure Plus] 120 ml PO DAILY@1200 dronabinoL [Marinol] 2.5 mg PO TID@0800,1200,1700 Diclofenac Sodium [Voltaren Gel] 1 applic TOPICAL QID@08,12,17,21 Acetaminophen Tab [Tylenol] 650 mg PO Q6HR PRN PRN Reason: Fever And/ Or Pain Promethazine Hcl 25mg/Ml 25 mg IM Q6H PRN PRN Reason: Nausea And Vomiting Magnesium Oxide [Mag-Ox] 400 mg PO TID@0800,1200,1700 Melatonin 5 mg PO HS tablet Magnesium Hydroxide [Milk of Magnesia Concentrate] 7,200 mg PO Q48H PRN PRN Reason: Constipation Ensure Clear 120 ml PO BID@0800,1700 Dicyclomine [Bentyl] 10 mg PO QID@08,12,17,21 bisacodyL [Bisacodyl] 10 mg RECTAL DAILY PRN PRN Reason: Constipation Salonpas Lidocaine Patch 1 patch TRANSDERM DAILY PRN PRN Reason: Pain Nystatin 100,000 Unit/gm Powd [Mycostatin Powder] 1 applic TOPICAL TID Discharge Medication List Escitalopram Oxalate [Lexapro] 10 mg PO DAILY@0800 09/07/14 [History] Omeprazole [PriLOSEC] 20 mg PO BID@0800,1700 09/07/14 [History] Pravastatin Sodium [Pravachol] 80 mg PO HS 09/07/14 [History] Ergocalciferol (Vitamin D2) [Drisdol (50,000 Iu)] 1,250 mcg PO Q14D@1200 05/19/19 [History] Levothyroxine Sodium [Synthroid] 150 mcg PO DAILY@0800 05/19/19 [History] Pramipexole [Mirapex] 1 mg PO HS 05/19/19 [History] calcitrioL [Rocaltrol] 0.25 mcg PO SUMOTUWETHFR@1200 05/19/19 [History] Carbidopa-Levodopa 25-100 mg [Sinemet 25-100 mg] 1 tab PO TID@0800,1200,2100 12/24/20 [History] Carbidopa-Levodopa 25-100 mg [Sinemet 25-100 mg] 2 tab PO AC-SUPPER@1700 12/24/20 [History] Metoprolol Tartrate [Lopressor] 50 mg PO BID@0800,1700 12/24/20 [History] Potassium Chloride ER [K-Dur 20] 20 meq PO DAILY@1200 12/24/20 [History] polyethylene glycoL 3350 [Miralax] 17 gm PO DAILY PRN #0 powd.pack 01/01/21 [Rx] Sennosides-Docusate Sodium [Senokot-S] 1 tab PO BID@0800,1700 01/24/21 [History] Ascorbic Acid [Vitamin C] 1,000 mg PO DAILY@1200 03/10/21 [History] Magnesium Oxide [Mag-Ox] 400 mg PO TID@0800,1200,1700 03/10/21 [History] Melatonin 5 mg PO HS tablet 03/18/21 [Rx] Acetaminophen Tab [Tylenol] 650 mg PO Q6HR PRN 04/15/21 [History] Diclofenac Sodium [Voltaren Gel] 1 applic TOPICAL QID@08,12,17,04/15/21 [History] Dicyclomine [Bentyl] 10 mg PO QID@08,12,17,21 04/15/21 [History] Ensure Clear 120 ml PO BID@0800,1700 04/15/21 [History] Lactose-Reduced Food [Ensure Plus] 120 ml PO DAILY@1200 04/15/21 [History] Magnesium Hydroxide [Milk of Magnesia Concentrate] 7,200 mg PO Q48H PRN 04/15/21 [History] Na Phos,M-B/Na Phos,Di-Ba [Fleet Adult] 133 ml RECTAL DAILY PRN 04/15/21 [History] Nystatin 100,000 Unit/gm Powd [Mycostatin Powder] 1 applic TOPICAL TID 04/15/21 [History] Ondansetron HCl [Zofran] 4 mg PO DAILY@0600 04/15/21 [History] Ondansetron Odt [Zofran ODT] 4 mg PO Q8H PRN 04/15/21 [History] Promethazine Hcl 25mg/Ml 25 mg IM Q6H PRN 04/15/21 [History] Salonpas Lidocaine Patch 1 patch TRANSDERM DAILY PRN 04/15/21 [History] bisacodyL [Bisacodyl] 10 mg RECTAL DAILY PRN 04/15/21 [History] dronabinoL [Marinol] 2.5 mg PO TID@0800,1200,1700 04/15/21 [History] Follow up Appointment(s)/Referral(s): [facility], [NON-STAFF] - As Needed Cameron Nelson MD [Primary Care Provider] - 3 Days Activity/Diet/Wound Care/Special Instructions: [facility]. Completed antibiotic therapy as per ID. CBC, BMP in 2 days Strict aspiration precautions Tube feeds as previously ordered: Discharge Disposition: TRANSFER TO SNF/ECF
--- NOTE | 2021-05-14 14:22 | PN ---
PROGRESS NOTE DATE OF SERVICE: 05/14/2021. REASON FOR FOLLOW UP: Abdominal infection. INTERVAL HISTORY: The patient afebrile. The patient is hemodynamically stable. No vomiting, diarrhea or any other changes reported by the nursing staff. The patient herself was not able to provide any history. PHYSICAL EXAMINATION: Blood pressure 135/77 with a pulse of 90, temperature 97.9. She is 97% on 2 L nasal cannula. General description is an elderly female lying in bed in no distress. Respiratory system: Unlabored breathing, clear to auscultation anteriorly. Heart S1, S2. Regular rate and rhythm. Abdomen soft, no tenderness. LABORATORY DATA: Hemoglobin 7.4, white count 7.6, BUN of 7, creatinine 0.7. DIAGNOSTIC IMPRESSION AND PLAN: Patient with abdominal infection with perforated stomach and ischemic colitis from volvulus status post sigmoid colectomy, repair of stomach wall. Patient has completed her antibiotic therapy. Will monitor the patient closely off antibiotic. Currently afebrile. White count normal. Plan of care was discussed with the admitting team. LITAL / IJN: [id number] /
[2021-05-14] MEDS ORDERED: FUROSEMIDE 10 MG/ML 4 ML VIAL IV STA (14:23)
[2021-05-14 18:41] LABS: Glucose,Whole Blood 97 mg/dL (75-99)
[2021-05-15 00:21] LABS: Glucose,Whole Blood 99 mg/dL (75-99)
[2021-05-15] MEDS: DEXTROSE 10% IN WATER 500 ML in EMPTY BAG 1 BAG IV SCH ×2 (00:54→08:41)
[2021-05-15] MEDS: INSULIN ASPART (NovoLOG) 100 UNIT/ML VIAL SQ SCH ×3 (00:55→12:50)
[2021-05-15] MEDS: HEPARIN SODIUM,PORCINE/PF 5,000 UNIT/0.5 ML SYRINGE SQ SCH ×2 (01:15→08:41)
[2021-05-15 02:58] VITALS: RESP 16; TEMP 97.6
[2021-05-15 05:53] LABS: Glucose,Whole Blood 96 mg/dL (75-99)
[2021-05-15] MEDS: CARBIDOPA-LEVODOPA 25-100 MG 1 EACH TAB PO SCH ×2 (08:40→12:50)
[2021-05-15] MEDS: PANTOPRAZOLE 40 MG/10 ML VIAL IV SCH (08:40)
[2021-05-15] MEDS: FLUCONAZOLE 100 MG TAB PO SCH (08:41)
[2021-05-15] MEDS: LEVOTHYROXINE IVP 100 MCG/5 ML VIAL IV SCH (08:45)
[2021-05-15 08:47] VITALS: BP 148/83; PULSE 82
[2021-05-15 11:40] LABS: Glucose,Whole Blood 96 mg/dL (75-99)
[2021-05-15] MEDS: NYSTATIN 100,000 UNIT/GM POWD 15 GM TOPICAL SCH (12:50)
== END 2021-05-15 14:05 | DRG 981 ==
LOC: EC 16:15 → 6NMEDSUR 21:49 → 4SSUR 04-16 15:30 → OBSVTOIN 04-17 11:06 → 4SSUR 04-17 20:32 → UNDODISIN 04-30 01:36 → 2SICU 04-30 01:41 → 4SSUR 05-10 15:38
PROVIDERS: ADMIT Family Medicine; ATTEND Family Medicine
PROC: 3E0G76Z Introduction of Nutritional Substance into Upper GI, Via Natural or Artificial Opening (ICD-10-PCS; 2021-04-19)
PROC: 0DH63UZ Insertion of Feeding Device into Stomach, Percutaneous Approach (ICD-10-PCS; 2021-04-19)
PROC: 0TP980Z Removal of Drainage Device from Ureter, Via Natural or Artificial Opening Endoscopic (ICD-10-PCS; 2021-04-24)
PROC: 30233N1 Transfusion of Nonautologous Red Blood Cells into Peripheral Vein, Percutaneous Approach (ICD-10-PCS; 2021-04-27)
PROC: 02HV33Z Insertion of Infusion Device into Superior Vena Cava, Percutaneous Approach (ICD-10-PCS; 2021-04-29)
PROC: 3E0436Z Introduction of Nutritional Substance into Central Vein, Percutaneous Approach (ICD-10-PCS; 2021-04-29)
PROC: 0D9670Z Drainage of Stomach with Drainage Device, Via Natural or Artificial Opening (ICD-10-PCS; 2021-04-30)
PROC: 0BH17EZ Insertion of Endotracheal Airway into Trachea, Via Natural or Artificial Opening (ICD-10-PCS; 2021-04-30)
PROC: 5A1945Z Respiratory Ventilation, 24-96 Consecutive Hours (ICD-10-PCS; 2021-04-30)
PROC: 3E033XZ Introduction of Vasopressor into Peripheral Vein, Percutaneous Approach (ICD-10-PCS; 2021-04-30)
PROC: 0DBN0ZZ Excision of Sigmoid Colon, Open Approach (ICD-10-PCS; principal; 2021-04-30 00:30)
PROC: 0D1N0Z4 Bypass Sigmoid Colon to Cutaneous, Open Approach (ICD-10-PCS; principal; 2021-04-30 00:30)
PROC: 0DJD4ZZ Inspection of Lower Intestinal Tract, Percutaneous Endoscopic Approach (ICD-10-PCS; principal; 2021-04-30 00:30)
PROC: 0DP Gastrointestinal System, Removal (ICD-10-PCS; principal; 2021-04-30 00:30)
PROC: 3E0H76Z Introduction of Nutritional Substance into Lower GI, Via Natural or Artificial Opening (ICD-10-PCS; principal; 2021-04-30 00:30)
PROC: 0DHA0UZ Insertion of Feeding Device into Jejunum, Open Approach (ICD-10-PCS; principal; 2021-04-30 00:30)
DX: N13.6 Pyonephrosis (principal); A41.9 Sepsis, unspecified organism; G92 Toxic encephalopathy; J96.01 Acute respiratory failure with hypoxia; K56.2 Volvulus; K65.1 Peritoneal abscess; D62 Acute posthemorrhagic anemia; I13.0 Hypertensive heart and chronic kidney disease with heart failure and stage 1 through stage 4 chronic kidney disease, or unspecified chronic kidney disease; I50.32 Chronic diastolic (congestive) heart failure; I69.354 Hemiplegia and hemiparesis following cerebral infarction affecting left non-dominant side; J98.11 Atelectasis; K55.9 Vascular disorder of intestine, unspecified; K56.7 Ileus, unspecified; Z43.1 Encounter for attention to gastrostomy; N17.0 Acute kidney failure with tubular necrosis; Z20.822 Contact with and (suspected) exposure to COVID-19; B95.2 Enterococcus as the cause of diseases classified elsewhere; E03.9 Hypothyroidism, unspecified; Z66 Do not resuscitate; E16.2 Hypoglycemia, unspecified; G20 Parkinson's disease; F02.80 Dementia in other diseases classified elsewhere, unspecified severity, without behavioral disturbance, psychotic disturbance, mood disturbance, and anxiety; E53.8 Deficiency of other specified B group vitamins; E66.9 Obesity, unspecified; Z68.39 Body mass index [BMI] 39.0-39.9, adult; E78.00 Pure hypercholesterolemia, unspecified; E78.5 Hyperlipidemia, unspecified; E83.42 Hypomagnesemia; E86.1 Hypovolemia; E87.6 Hypokalemia; F31.9 Bipolar disorder, unspecified; F41.9 Anxiety disorder, unspecified; G24.9 Dystonia, unspecified; I49.3 Ventricular premature depolarization; I69.320 Aphasia following cerebral infarction; K56.41 Fecal impaction; N18.30 Chronic kidney disease, stage 3 unspecified; R13.10 Dysphagia, unspecified; R32 Unspecified urinary incontinence; R15.9 Full incontinence of feces; Z53.31 Laparoscopic surgical procedure converted to open procedure; Z68.36 Body mass index [BMI] 36.0-36.9, adult; Z79.890 Hormone replacement therapy; Z79.899 Other long term (current) drug therapy; Z82.49 Family history of ischemic heart disease and other diseases of the circulatory system; Z86.16 Personal history of COVID-19; Z87.01 Personal history of pneumonia (recurrent); Z87.440 Personal history of urinary (tract) infections; Z87.891 Personal history of nicotine dependence; Z90.710 Acquired absence of both cervix and uterus; Z98.890 Other specified postprocedural states; Z74.01 Bed confinement status; Z46.6 Encounter for fitting and adjustment of urinary device; Z96.0 Presence of urogenital implants; Z53.09 Procedure and treatment not carried out because of other contraindication
CPT/HCPCS: 36415; 36573; 36600; 43246; 70450; 71045; 74018; 74021; 74022; 74177; 74420; 76770; 80048; 80053; 80202; 80375; 81001; 82040; 82140; 82330; 82565; 82607; 82746; 82805; 83036; 83605; 83735; 84100; 84132; 84439; 84443; 84478; 84484; 85025; 85027; 85610; 85730; 86850; 86870; 86880; 86900; 86901; 86902; 86920; 87040; 87077; 87086; 87186; 87635; 88307; 93005; 94003; 94760; 95816; 96372; 99285

== ENCOUNTER 2021-06-15 02:20 | Emergency (ER) | payer MEDICARE ==
[2021-06-15 02:33] VITALS: BP 115/79; PULSE 72; RESP 18; TEMP 98
--- NOTE | 2021-06-15 03:11 | ED ---
General Adult HPI - General Chief complaint: Recheck/Abnormal Lab/Rx Stated complaint: tube issue Time Seen by Provider: 06/15/21 02:26 Source: patient, EMS Mode of arrival: EMS Limitations: no limitations - History of Present Illness Initial comments: This patient is a 75-year-old woman sent from the [facility] care facility to have evaluation of her PEG tube. It was reported that tonight they attempted to give fluid after she had received her medications and they were not able to pass the fluid. Patient denies any symptoms. Onset/Timin -: hour(s) Severity scale (1-10): 0 Consistency: constant Improves with: none Worsens with: none Associated Symptoms: denies other symptoms Treatments Prior to Arrival: none - Related Data Home Medications Medication Instructions Recorded Confirmed Escitalopram Oxalate [Lexapro] 10 mg PO DAILY@0800 09/07/14 04/15/21 Omeprazole [PriLOSEC] 20 mg PO BID@0800,1700 09/07/14 04/15/21 Pravastatin Sodium [Pravachol] 80 mg PO HS 09/07/14 04/15/21 Ergocalciferol (Vitamin D2) 1,250 mcg PO Q14D@1200 05/19/19 04/15/21 [Drisdol (50,000 Iu)] Levothyroxine Sodium [Synthroid] 150 mcg PO DAILY@0800 05/19/19 04/15/21 Pramipexole [Mirapex] 1 mg PO HS 05/19/19 04/15/21 calcitrioL [Rocaltrol] 0.25 mcg PO SUMOTUWETHFR@1200 05/19/19 04/15/21 Carbidopa-Levodopa 25-100 mg 1 tab PO TID@0800,1200,2100 12/24/20 04/15/21 [Sinemet 25-100 mg] Carbidopa-Levodopa 25-100 mg 2 tab PO AC-SUPPER@1700 12/24/20 04/15/21 [Sinemet 25-100 mg] Metoprolol Tartrate [Lopressor] 50 mg PO BID@0800,1700 12/24/20 04/15/21 Potassium Chloride ER [K-Dur 20] 20 meq PO DAILY@1200 12/24/20 04/15/21 Ascorbic Acid [Vitamin C] 1,000 mg PO DAILY@1200 03/10/21 04/15/21 Magnesium Oxide [Mag-Ox] 400 mg PO TID@0800,1200,1700 03/10/21 04/15/21 Acetaminophen Tab [Tylenol] 650 mg PO Q6HR PRN 04/15/21 04/15/21 Nystatin 100,000 Unit/gm Powd 1 applic TOPICAL TID 04/15/21 04/15/21 [Mycostatin Powder] Ondansetron Odt [Zofran ODT] 4 mg PO Q8H PRN 04/15/21 04/15/21 Salonpas Lidocaine Patch 1 patch TRANSDERM DAILY PRN 04/15/21 04/15/21 Previous Rx's Medication Instructions Recorded INSULIN LISPRO (HumaLOG) [humaLOG] 0 unit SQ Q6H #1 vial 05/14/21 Allergies Allergy/AdvReac Type Severity Reaction Status Date / Time amiodarone [From Cordarone] Allergy Anaphylaxis Verified 04/24/21 06:48 cyclobenzaprine Allergy Rash/Hives Verified 04/24/21 06:48 [From Flexeril] prochlorperazine Allergy Rash/Hives Verified 04/24/21 06:48 metoclopramide AdvReac Severe Unknown Verified 04/24/21 06:48 Review of Systems ROS Statement: Those systems with pertinent positive or pertinent negative responses have been documented in the HPI. ROS Other: All systems not noted in ROS Statement are negative. Constitutional: Denies: fever, chills Respiratory: Denies: cough, dyspnea Cardiovascular: Denies: chest pain, palpitations Gastrointestinal: Denies: abdominal pain, nausea, vomiting Past Medical History Past Medical History: Heart Failure, CVA/TIA, GERD/Reflux, Hyperlipidemia, Hypertension, Musculoskeletal Disorder, Neurologic Disorder, Renal Disease, Thyroid Disorder Additional Past Medical History / Comment(s): Pt recently admitted to [facility] on 03/10/21 with abdominal pain, N/V, EGD showed gastritis, possible ileus, UTI, acute pyelonephritis. Other hx: CVAs/expressive aphasia and L sided weakness, TIAs, Parkinsons disease, CKD stage III, bilateral hydronephrosis with R side worse, recurrent UTIs, chronic anemia, covid + 01/2021, incontinence urine/stool, hypothyroid. History of Any Multi-Drug Resistant Organisms: None Reported Past Surgical History: Appendectomy, Cholecystectomy, Hernia Repair, Hysterectomy, Orthopedic Surgery Additional Past Surgical History / Comment(s): 12/26/20 cysto with R ureteral stent, hysterectomy with bilateral oophorectomy, abdominal hernia repair, EGD, colonoscopy, hammer toe surgery Past Anesthesia/Blood Transfusion Reactions: No Reported Reaction Past Psychological History: Anxiety, Bipolar, Depression Smoking Status: Former smoker Past Alcohol Use History: None Reported Past Drug Use History: None Reported - Past Family History Father History Unknown: Yes Family Medical History: No Reported History Mother Family Medical History: Hypertension Additional Family Medical History / Comment(s): Mother lived to be about 85 yrs old. General Exam Limitations: no limitations General appearance: alert, in no apparent distress Head exam: Present: atraumatic, normocephalic Eye exam: Present: normal appearance Respiratory exam: Present: normal lung sounds bilaterally. Absent: respiratory distress, wheezes, rales, rhonchi, stridor Cardiovascular Exam: Present: regular rate, normal rhythm, normal heart sounds. Absent: systolic murmur, diastolic murmur, rubs, gallop GI/Abdominal exam: Present: soft, other (PEG tube in the right upper quadrants normal appearance, no evidence of infection. There is a left-sided colostomy also without evidence of infection.). Absent: distended, tenderness, guarding, rebound, rigid Neurological exam: Present: alert Skin exam: Present: warm, dry, intact, normal color. Absent: rash Course Vital Signs 06/15/21 02:30 Temperature 98 F Pulse Rate 72 Respiratory 18 Rate Blood Pressure 115/79 O2 Sat by Pulse 95 Oximetry Medical Decision Making - Medical Decision Making Patient is 75-year-old woman sent in for malfunctioning PEG tube. Nursing staff was able to successfully irrigate the PEG tube. Patient released back to the extended care facility. Disposition Clinical Impression: PEG tube malfunction Disposition: HOME SELF-CARE Condition: Good Instructions (If sedation given, give patient instructions): How to Use and Care for Your PEG Tube (ED) Is patient prescribed a controlled substance at d/c from ED?: No Referrals: Cameron Nelson MD [Primary Care Provider] - 1-2 days
== END 2021-06-15 03:16 | disposition home or self-care (01) ==
LOC: EC 02:20
DX: K94.23 Gastrostomy malfunction (principal); I13.0 Hypertensive heart and chronic kidney disease with heart failure and stage 1 through stage 4 chronic kidney disease, or unspecified chronic kidney disease; I50.9 Heart failure, unspecified; N18.30 Chronic kidney disease, stage 3 unspecified; G20 Parkinson's disease; E78.5 Hyperlipidemia, unspecified; K21.9 Gastro-esophageal reflux disease without esophagitis; F41.9 Anxiety disorder, unspecified; F31.9 Bipolar disorder, unspecified; E03.9 Hypothyroidism, unspecified; Z87.891 Personal history of nicotine dependence; Z79.4 Long term (current) use of insulin; Z79.890 Hormone replacement therapy; Z79.899 Other long term (current) drug therapy; Z87.19 Personal history of other diseases of the digestive system; Z82.49 Family history of ischemic heart disease and other diseases of the circulatory system; Z90.49 Acquired absence of other specified parts of digestive tract; Z86.73 Personal history of transient ischemic attack (TIA), and cerebral infarction without residual deficits
CPT/HCPCS: 99283

== ENCOUNTER 2021-07-01 16:10 | Emergency (ER) | payer MEDICARE ==
[2021-07-01 16:19] VITALS: RESP 18
--- NOTE | 2021-07-01 19:27 | ED ---
Recheck HPI - General Chief Complaint: Recheck/Abnormal Lab/Rx Stated Complaint: J tube clogged Time Seen by Provider: 07/01/21 16:32 Source: patient, EMS Mode of arrival: EMS Limitations: no limitations - History of Present Illness Initial Comments: Patient is a 76-year-old female, with history of heart failure, hypertension, neurologic disorder, presenting to the emergency department from [facility] for a clogged J-tube. Staff states they have been trying to unclog it since yesterday without success. She otherwise has no complaints. The tube was placed by Dr. Dempsey in April of this year. She's had no recent fevers, no chest pain or short of breath. Her vital signs are stable upon arrival. - Related Data Home Medications Medication Instructions Recorded Confirmed Escitalopram Oxalate [Lexapro] 10 mg PEJ/J-TUBE DAILY@0800 09/07/14 07/01/21 Pravastatin Sodium [Pravachol] 80 mg PEJ/J-TUBE HS 09/07/14 07/01/21 Levothyroxine Sodium [Synthroid] 150 mcg PEJ/J-TUBE DAILY@0800 05/19/19 07/01/21 Pramipexole [Mirapex] 1 mg PEJ/J-TUBE HS 05/19/19 07/01/21 calcitrioL [Rocaltrol] 0.25 mcg PEJ/J-TUBE 05/19/19 07/01/21 SUMOTUWETHFR@1200 Carbidopa-Levodopa 25-100 mg 1 tab PEJ/J-TUBE TID@0800,1200,2100 12/24/20 07/01/21 [Sinemet 25-100 mg] Carbidopa-Levodopa 25-100 mg 2 tab PEJ/J-TUBE AC-SUPPER@1700 12/24/20 07/01/21 [Sinemet 25-100 mg] Metoprolol Tartrate [Lopressor] 50 mg PEJ/J-TUBE BID@0800,1700 12/24/20 07/01/21 Ascorbic Acid [Vitamin C] 1,000 mg PEJ/J-TUBE DAILY@1200 03/10/21 07/01/21 Acetaminophen Tab [Tylenol] 650 mg PEJ/J-TUBE Q6HR PRN 04/15/21 07/01/21 Bacitracin Zinc Oint 1 applic TOPICAL BID@0800,2100 07/01/21 07/01/21 Carbidopa/Levodopa [Parcopa 25-100 1 tab PEJ/J-TUBE TID@0800,1200,2100 07/01/21 07/01/21 mg Odt] LORazepam [Ativan] 0.5 mg PEJ/J-TUBE Q4H PRN 07/01/21 07/01/21 Lidocaine HCl/Benzyl Alcohol 1 applic TRANSDERM DAILY PRN 07/01/21 07/01/21 [Salonpas Lidocain Pls 4-10% Cr] Linagliptin [Tradjenta] 5 mg PEJ/J-TUBE DAILY@0800 07/01/21 07/01/21 MORPHINE ORAL MARIA INES CONC 20mg/mL 20 mg PO Q4H PRN 07/01/21 07/01/21 [Roxanol Oral Soln Conc 20MG/ML] Magnesium Hydroxide [Milk of 7,200 mg PO Q48H PRN 07/01/21 07/01/21 Magnesia Concentrate] Na Phos,M-B/Na Phos,Di-Ba [Fleet 133 ml RECTAL DAILY PRN 07/01/21 07/01/21 Adult] Nystatin 100,000 Unit/gm Powd 1 applic TOPICAL TID 07/01/21 07/01/21 [Mycostatin Powder] Omeprazole 2mg/Ml 20 mg PEJ/J-TUBE BID@0800,1700 07/01/21 07/01/21 Ondansetron HCl [Zofran] 4 mg PEJ/J-TUBE Q8H PRN 07/01/21 07/01/21 Potassium Chloride Oral Liquid 20 meq PEJ/J-TUBE DAILY@1200 07/01/21 07/01/21 bisacodyL [Dulcolax] 10 mg RECTAL DAILY PRN 07/01/21 07/01/21 Allergies Allergy/AdvReac Type Severity Reaction Status Date / Time amiodarone [From Cordarone] Allergy Anaphylaxis Verified 07/01/21 18:27 cyclobenzaprine Allergy Rash/Hives Verified 07/01/21 18:27 [From Flexeril] prochlorperazine Allergy Rash/Hives Verified 07/01/21 18:27 metoclopramide AdvReac Severe Unknown Verified 07/01/21 18:27 Review of Systems ROS Statement: Those systems with pertinent positive or pertinent negative responses have been documented in the HPI. ROS Other: All systems not noted in ROS Statement are negative. Past Medical History Past Medical History: Heart Failure, CVA/TIA, GERD/Reflux, Hyperlipidemia, Hypertension, Musculoskeletal Disorder, Neurologic Disorder, Renal Disease, Thyroid Disorder Additional Past Medical History / Comment(s): Pt recently admitted to [facility] on 03/10/21 with abdominal pain, N/V, EGD showed gastritis, possible ileus, UTI, acute pyelonephritis. Other hx: CVAs/expressive aphasia and L sided weakness, TIAs, Parkinsons disease, CKD stage III, bilateral hydronephrosis with R side worse, recurrent UTIs, chronic anemia, covid + 01/2021, incontinence urine/stool, hypothyroid. History of Any Multi-Drug Resistant Organisms: None Reported Past Surgical History: Appendectomy, Cholecystectomy, Hernia Repair, Hysterectomy, Orthopedic Surgery Additional Past Surgical History / Comment(s): 12/26/20 cysto with R ureteral stent, hysterectomy with bilateral oophorectomy, abdominal hernia repair, EGD, colonoscopy, hammer toe surgery Past Anesthesia/Blood Transfusion Reactions: No Reported Reaction Past Psychological History: Anxiety, Bipolar, Depression Smoking Status: Former smoker Past Alcohol Use History: None Reported Past Drug Use History: None Reported - Past Family History Father History Unknown: Yes Family Medical History: No Reported History Mother Family Medical History: Hypertension Additional Family Medical History / Comment(s): Mother lived to be about 85 yrs old. General Exam - General Exam Comments Initial Comments: GENERAL: Patient is well-developed and well-nourished. Patient is nontoxic and in no acute distress. HEAD: Atraumatic, normocephalic. EYES: Pupils equal round and reactive to light, extraocular movements intact, sclera anicteric, conjunctiva are normal. Eyelids were unremarkable. ENT: TMs normal, nares patent, oropharynx clear without exudates. Moist mucous m embranes. NECK: Normal range of motion, supple without lymphadenopathy or JVD. LUNGS: Unlabored respirations. Breath sounds clear to auscultation bilaterally and equal. No wheezes rales or rhonchi. HEART: Regular rate and rhythm without murmurs, rubs or gallops. ABDOMEN: Soft, nontender, normoactive bowel sounds. No guarding, no rebound. No masses appreciated. J-tube and colostomy present. No signs of infection. MUSCULOSKELETAL: Normal extremities with adequate strength and normal range of motion, no pitting or edema. No clubbing or cyanosis. NEUROLOGICAL: Patient is alert and oriented x 2, her baseline. Motor and sensory are also intact. SKIN: Warm, Dry, normal turgor, no rashes or lesions noted. Limitations: no limitations Course Vital Signs 07/01/21 07/01/21 16:12 20:19 Temperature 98.0 F 97.8 F Pulse Rate 74 69 Respiratory 18 18 Rate Blood Pressure 136/58 120/59 O2 Sat by Pulse 100 100 Oximetry Procedures - Procedures Initial comment: Patient has J-tube present, was unable to unclog using warm water, coke. Tube was removed, unclog successfully and, successfully re-placed. X-ray confirmed placement. Patient tolerated procedure well. No complications. Medical Decision Making - Medical Decision Making She is a 76-year-old female sent in from [facility] for a clogged J-tube. Patient's tube was unclogged, x-ray confirmed replacement. Patient is stable for discharge. Case discussed with Dr. Hsu. Disposition Clinical Impression: Clogged feeding tube Disposition: HOME SELF-CARE Condition: Stable Instructions (If sedation given, give patient instructions): How to Use and Care for Your PEG Tube (ED) Additional Instructions: Please return to the Emergency Department if symptoms worsen or any other concerns. Is patient prescribed a controlled substance at d/c from ED?: No Referrals: Cameron Nelson MD [Primary Care Provider] - 1-2 days
--- NOTE | 2021-07-01 20:00 | XR ---
EXAMINATION TYPE: XR abdomen 1V DATE OF EXAM: 07/01/2021 COMPARISON: NONE HISTORY: Check tubing TECHNIQUE: Single view FINDINGS: Contrast was injected into the jejunostomy tube. The contrast appears to be opacifying the jejunum. I see no definite extravasation. IMPRESSION: Tubing is patent and jejunostomy tube appears to be in good position.
[2021-07-01 20:20] VITALS: BP 120/59; PULSE 69; TEMP 97.8
== END 2021-07-01 20:37 | disposition home or self-care (01) ==
LOC: EC 16:10
DX: K94.23 Gastrostomy malfunction (principal); I13.0 Hypertensive heart and chronic kidney disease with heart failure and stage 1 through stage 4 chronic kidney disease, or unspecified chronic kidney disease; N18.30 Chronic kidney disease, stage 3 unspecified; I50.9 Heart failure, unspecified; K21.9 Gastro-esophageal reflux disease without esophagitis; E78.5 Hyperlipidemia, unspecified; E07.9 Disorder of thyroid, unspecified; F41.9 Anxiety disorder, unspecified; F31.9 Bipolar disorder, unspecified; Z79.84 Long term (current) use of oral hypoglycemic drugs; Z88.1 Allergy status to other antibiotic agents; Z86.16 Personal history of COVID-19; Z87.19 Personal history of other diseases of the digestive system; Z87.440 Personal history of urinary (tract) infections; Z87.891 Personal history of nicotine dependence; Z90.49 Acquired absence of other specified parts of digestive tract; Z90.710 Acquired absence of both cervix and uterus; Z86.73 Personal history of transient ischemic attack (TIA), and cerebral infarction without residual deficits
CPT/HCPCS: 43762; 74018; 99283